=== PATIENT | male | born 1965 | race Caucasian/White ===

== ENCOUNTER 2017-09-03 08:58 | Emergency (ER) | payer OTHER ==
[~2017-09-03] VITALS: Ht 188 cm; Wt 154.5 kg
[2017-09-03 09:07] VITALS: TEMP 36.4; Ht 188 cm; Wt 154.5 kg
[2017-09-03] MEDS ORDERED: ACETAMINOPHEN 500 MG TAB PO STA (09:40)
[2017-09-03] MEDS ORDERED: DOXY50CA26 PO (09:53)
[2017-09-03] MEDS ORDERED: ASPCH81X PO (09:53)
[2017-09-03] MEDS ORDERED: BUPR-79 PO (09:53)
[2017-09-03] MEDS ORDERED: HYDR25TA5 PO (09:53)
[2017-09-03] MEDS ORDERED: METO25TA3 PO (09:53)
[2017-09-03] MEDS ORDERED: ATOR-26 PO (09:53)
--- NOTE | 2017-09-03 10:56 | DIAGNOSTIC IMAGING REPORT ---
R ANKLE MIN 3 VIEWS ROUTINE CLINICAL HISTORY: pain/swelling right ankle s/p injury trauma. Pain. COMPARISON: None. DISCUSSION: Considerable soft tissue swelling over lateral mild loss. Incomplete cortical fracture distal fibular shaft. Ankle mortise is aligned anatomically. Medial malleolus is unremarkable. IMPRESSION: 1. Considerable soft tissue swelling over the distal fibula with an incomplete cortical fracture of the distal fibular shaft. The above report was generated using voice recognition software. It may contain grammatical, syntax or spelling errors. Electronically signed by: Dario Phillips M.D. 09/03/2017 10:55 AM Dictated Date/Time: 09/03/2017 10:54 AM
--- NOTE | 2017-09-03 11:12 | EMERGENCY ROOM VISIT NOTE ---
ED Visit Note First contact with patient: 09:11 CHIEF COMPLAINT: Ankle pain HISTORY OF PRESENT ILLNESS: This 52-year-old white patient presents to the emergency department one day after sustaining an injury to the right ankle and foot with a twisting, inversion motion when he fell in a hole. The patient complains of pain along the outside of the ankle. The patient denies pain of the foot. The patient rates the pain as constant and 6/10. The patient is able to bear weight on the foot. Constant pain, worse with movement, weight bearing, and the dependent position. No knee pain, the patient is able to move their toes. No numbness or weakness of the foot, no laceration. The patient has not had a previous fracture to this ankle. The patient has taken Tylenol for the pain. He states he is not to be taking NSAIDs due to his cardiac history. The patient denies any other injury. REVIEW OF SYSTEMS: A 6 system review of systems was completed with positives and pertinent negatives listed in the HPI. ALLERGIES: None MEDICATIONS: Aspirin, atorvastatin, Wellbutrin, doxycycline, hydrochlorothiazide , Toprol PMH: Hyperlipidemia, hypertension SOCIAL HISTORY: The patient lives locally with family. He denies drug, alcohol use. The patient admits to occasional tobacco use. PHYSICAL EXAM: Vital Signs: Reviewed Nurse's notes, vital signs stable. GENERAL : This is a 52-year-old obese white male, no acute distress, but appears in pain , well-developed, well-nourished. MENTAL STATUS: Alert, oriented to person place and time, and cooperative. MUSCULOSKELETAL: The right ankle is swollen and tender over the lateral malleolus, but the skin is intact and there is no ligamentous instability. There is no fifth metatarsal tenderness. There is no tenderness over the rest of the foot. There is no calf or tibia/fibular tenderness. There is no visual deformity. The foot and toes are warm and well- perfused. Dorsalis pedis pulse 2+. Sensation to pain and light touch is intact. Capillary refill less than 2 seconds. RADIOLOGY: R ANKLE MIN 3 VIEWS ROUTINE CLINICAL HISTORY: pain/swelling right ankle s/p injury trauma. Pain. COMPARISON: None. DISCUSSION: Considerable soft tissue swelling over lateral mild loss. Incomplete cortical fracture distal fibular shaft. Ankle mortise is aligned anatomically. Medial malleolus is unremarkable. IMPRESSION: 1. Considerable soft tissue swelling over the distal fibula with an incomplete cortical fracture of the distal fibular shaft. The above report was generated using voice recognition software. It may contain grammatical, syntax or spelling errors. Electronically signed by: Dario Phillips M.D. 09/03/2017 10:55 AM Dictated Date/Time: 09/03/2017 10:54 AM EMERGENCY DEPARTMENT COURSE: I examined the patient. X-rays of the right ankle were reviewed by myself and read by radiology and reveal and incomplete cortical fracture of the distal fibular shaft. An Ortho-Glass stirrup splint was applied to the ankle under my direction and the position was satisfactory. Neurovascular status was rechecked and intact. The patient was instructed on the use of crutches, but was unable to safely ambulate with crutches. He was given a walker, and did much better with the walker. The patient was discharged home in good condition. DIFFERENTIAL DIAGNOSIS: Fracture, contusion, sprain, strain, avulsion fracture, and others DIAGNOSIS: Fracture of right distal fibula Current/Historical Medications Scheduled Aspirin (Aspirin Chewable), 81 MG PO DAILY Atorvastatin (Lipitor), 80 MG PO DAILY Bupropion (Wellbutrin Sr), 150 MG PO DAILY Doxycycline (Monohydrate) (Doxycycline), 50 MG PO DAILY Hydrochlorothiazide (Hydrochlorothiazide), 25 MG PO DAILY Metoprolol Succinate (Toprol Xl), 25 MG PO DAILY Allergies Coded Allergies: Ibuprofen (Unverified Allergy, Intermediate, UNABLE TO TAKE DUE TO HEART MEDICATION, PER , 09/03/17) Vital Signs Date Time Temp Pulse Resp B/P (MAP) Pulse Ox O2 Delivery O2 Flow Rate FiO2 09/03/17 11:55 70 18 171/109 94 Room Air 09/03/17 09:07 36.4 73 20 168/91 99 Room Air Medications Administered Medications (Trade) Dose Ordered Sig/Laura Route Start Time Stop Time Status Last Admin Dose Admin Acetaminophen (Tylenol Tab) 1,000 mg NOW STAT PO 09/03/17 09:40 09/03/17 10:09 DC 09/03/17 09:48 1,000 MG Departure Information Impression Primary Impression: Fracture of distal end of right fibula Dispostion Home / Self-Care Condition GOOD Referrals David Lorenz (PCP) [facility] Patient Instructions ED Fx Ankle Lateral Malleolus, My [facility] Additional Instructions ORTHOPEDIC INSTRUCTIONS: Acetaminophen(Tylenol) may be used for fever or pain. Use 1000mg every six hours as needed. Avoid using more than 3000mg in a 24 hour period. Ice compresses for 20 minutes at a time four times daily for 2-3 days. Use the crutches as instructed to avoid weight-bearing on the leg until directed otherwise by orthopedics. Rest and elevate your injury. Do not get the splint wet. If your splint feels excessively tight, you have worsening pain, develop numbness or tingling, or your digits appear blue, loosen the ginette wrap. Then reapply the ginette wrap gently without removing the splint. If your symptoms are not quickly relieved return to the ER for re- evaluation. Return to the ER immediately for any numbness, tingling, severe pain, extreme swelling in the extremity or as needed. Call [facility], [phone], today to arrange follow up for your injury within the next week. Follow-up with your primary care physician in 2 to 3 days for a recheck of your current condition if needed. Work Instructions Return To Work: 1 day Problem Qualifiers Primary Impression: Fracture of distal end of right fibula Encounter type: initial encounter Fracture type: closed Fracture morphology : other fracture Qualified Codes: S82.831A - Other fracture of upper and lower end of right fibula, initial encounter for closed fracture
[2017-09-03 11:55] VITALS: BP 171/109; PULSE 70; O2SAT 94
== END 2017-09-03 11:56 | disposition home or self-care (01) ==
LOC: C.EDB 09:01
DX: S82.831A Other fracture of upper and lower end of right fibula, initial encounter for closed fracture (principal); W17.2XXA Fall into hole, initial encounter; Y92.9 Unspecified place or not applicable; E78.5 Hyperlipidemia, unspecified; I10 Essential (primary) hypertension; Z79.82 Long term (current) use of aspirin; Z79.899 Other long term (current) drug therapy

== ENCOUNTER 2024-05-06 15:19 | Inpatient (IN) ==
--- OUTSIDE RECORDS SUMMARY | 2024-05-06 15:27 | External Medical Summary | Summary of Care ---
Author Name Unknown Organization [facility] Address [address] [place] [address] Phone [phone] Care Team Providers Care Welder Apprentice Arc Name Role Phone Luz Maria Gama Primary Care Provider Reason for Visit * Reason Comments Medication Management Encounter Details Date Type Department Care Team (Late st Contact Info) Description 05/03/2024 3:30 PM EDT Pharmacy Pharmacy Hematology Oncology [facility] [address] [place] [address] [facility] [place] [facility] Hem/Onc [address], [place] [id number] Glioblastoma (HCC)* Allergies No known active allergiesdocumented as of this encounter (statuses as of 05/03/2024) Medications Medication Sig Dispensed Refills Start Date End Date Status nitroglycerin (NITROSTAT) 0.[address] 1 Tab under the tongue every 5 minutes as needed for Pain, Chest. 90 Tab 12 08/17/2015 Active Lisinopril 20 MG Oral Tablet (Prinivil)Indications :HTN, goal below 140/90 Take 1 Tablet by mouth in the morning. 90 Tablet 3 11/04/2023 Active CPAP every night at bedtime. Active Naloxone HCl 0.4 MG/ML Injection Solution (Narcan)Indications:B rain tumor (HCC),Brain mass Inject 1mL into a large muscle for suspected opioid overdose. Seek medical help immediately. [email or web address] 1 mL 3 11/18/2023 Active Aspirin 81 MG Oral Tablet ChewableIndications:I schemic cardiomyopathy Take 1 Tablet by mouth in the morning. 30 Tablet 11 02/08/2024 Active Polyethylene Glycol 3350 17 GM Oral Packet (Miralax)Indications: Constipation due to pain medication Take 1 Packet by mouth in the morning. 30 Each 03/03/2024 Active levETIRAcetam 500 MG Oral Tablet (Keppra)Indications:B rain tumor (HCC),Brain mass Take 1 Tablet by mouth in the morning and 1 Tablet before bedtime. 60 Tablet 2 03/06/2024 Active Metoprolol Succinate ER 25 MG Oral Tablet Extended Release 24 Hour (toPROL XL)Indications:HTN, goal below 140/90,Ischemic cardiomyopathy,Beltrán ry artery disease involving [place] coronary artery of [place] heart without angina pectoris,Dyslipidemia , goal LDL below 100,Essential hypertension with goal blood pressure less than 140/90 Take 1 Tablet by mouth in the morning. 90 Tablet 1 03/04/2024 Active Ondansetron HCl 8 MG Oral Tablet (Zofran)Indications:G lioblastoma (HCC) Take 1 tablet by mouth 30 minutes prior to lomustine and every 8 hours as needed for nausea. Do not exceed 3 tablets per 24 hours. 60 Tablet 1 03/03/2024 Active Omeprazole 20 MG Oral Capsule Delayed Release (PriLOSEC)Indications :Glioblastoma (HCC) Take 2 Capsules by mouth in the morning. 60 Capsule 5 03/16/2024 Active Morphine Sulfate 30 MG Oral Tablet (Msir)Indications:Can cer related pain Take 1 Tablet by mouth every 4 hours as needed for Pain, Severe. Continued script 84 Tablet 04/05/2024 Active Doxycycline Monohydrate 50 MG Oral CapsuleIndications:Ro sacea Take 1 capsule by mouth once daily 90 Capsule 1 04/17/2024 Active buPROPion HCl ER (SR) 150 MG Oral Tablet Extended Release 12 Hour (Wellbutrin SR)Indications:Adjust ment disorder with depressed mood Take 1 tablet by mouth twice per day 180 Tablet 1 04/17/2024 Active dexAMETHasone 2 MG Oral Tablet (Decadron)Indications :Glioblastoma (HCC) Take 1 Tablet by mouth 2 times a day with morning and evening meals. 60 Tablet 1 04/17/2024 Active busPIRone HCl 10 MG Oral Tablet (Buspar)Indications:A nxiety state Take 1 Tablet by mouth in the morning and 1 Tablet at noon and 1 Tablet before bedtime. 90 Tablet 2 04/19/2024 Active Lomustine 40 MG Oral Capsule (Ceenu)Indications:Gl ioblastoma (HCC) Take 5 Capsules by mouth every 6 weeks. Take on an empty stomach at bedtime 5 Capsule 04/24/2024 Active Morphine Sulfate ER 60 MG Oral Tablet Extended Release (Ms Contin)Indications:Ca ncer related pain Take 1 Tablet by mouth in the morning and 1 Tablet before bedtime. Do not start before May 02, 2024. 56 Tablet 05/02/2024 Active Sennosides 8.6 MG Oral Tablet (Senokot)Indications: Constipation due to pain medication Take 2 Tablets by mouth at bedtime. 60 Tablet 05/01/2024 Active Nitrofurantoin Monohyd Macro 100 MG Oral Capsule (Macrobid)Indications :Burning with urination Take 1 Capsule by mouth in the morning and 1 Capsule before bedtime. 14 Capsule 05/03/2024 Active documented as of this encounter (statuses as of 05/03/2024) Active Problems Problem Noted Date Diagnosed Date S/P craniotomy 11/18/2023 Palliative care encounter 11/12/2023 Goals of care, counseling/discussion 11/12/2023 Cancer related pain 11/12/2023 Nonintractable headache 11/12/2023 Postoperative pain 11/12/2023 Decreased appetite 11/12/2023 Therapeutic opioid-induced constipation (OIC) Word finding difficulty 11/12/2023 Agitation 11/12/2023 Glioblastoma 11/05/2023 Meniere disease, bilateral 05/19/2021 ALEKSANDR (obstructive sleep apnea) 02/25/2021 Class 3 severe obesity due t o excess calories with serious comorbidity and body mass index (BMI) of 40.0 to 44.9 in adult 11/04/2020 Erythrocytosis 06/30/2018 Ischemic cardiomyopathy 03/11/2017 Dyslipidemia, goal LDL below 100 04/23/2016 Adjustment disorder with depressed mood 04/23/20 16 HTN, goal below 140/90 03/02/2016 Overview: Per HTN Protocol Coronary artery disease without angina pectoris 08/30/2015 Overview: One vessel PCI - BMS to CX OM3 on 08/16/2015 Former smoker 08/17/2015 Rosacea 01/10/2014 documented as of this encounter (statuses as of 05/03/2024) Resolved Problems Problem Noted Date Diagnosed Date Resolved Date Brain mass 11/08/2023 11/19/2023 Bradycardia, sinus 01/21/2023 4 Body mass index (BMI) of 45. 0 to 49.9 in adult 07/29/2020 11/04/2020 Overview: Per Obesity protocol - Body mass index (BMI) of 40. 0 to 44.9 in adult 06/21/2017 08/01/2020 Overview: Per Obesity protocol #1 Venous insufficiency 04/23/2016 024 Testicular hypogonadism 09/24/201504/22 HTN (hypertension) 08/17/2015 6 Overview: Per HTN Protocol NSTEMI (non-ST elevated myoc ardial infarction) 08/16/2015 08/17/2015 documented as of this encounter (statuses as of 05/03/2024) Immunizations Name Administration Dates Next Due COVID-19 mRNA, LNP-s, No Pre serve, 2-Dose Series (Pfizer) 12/02/2020,10/28/2020 Pneumococcal Polysaccharide PPV23 (Pneumovax) Seasonal Influenza, PF, 6 M & above, IM , (FluLaval or Fluzone) 07/03/2020,06/30/2018 TDAP (age 10 and older)(Boostrix) 12/24/2017 Zoster Vaccine Recombinant (Shingrix) 05/19/2021 ,07/03/2020 11/03/2020 documented as of this encounter Social History Tobacco Use Types Packs/Day Years Used Date Smoking Tobacco: Former Cigarettes 1.5 15 1 10/16/1999 - 08/16/2015 Passive Smoke Exposure: Never Smokeless Tobacco: Former Snuff Comments:smokes cigar occas Alcohol Use Standard Drinks/Week Comments Yes 0 (1 standard drink = 0.6 oz pur e alcohol) weekly PHQ-2 Answer Date Recorded PHQ Adult Total Score 2 11/19/2023 Hunger Vital Sign Answer Date Recorded Within the past 12 months, y ou worried that your food would run out before you got the money to buy more. Sometimes true Within the past 12 months, t he food you bought just didn't last and you didn't have money to get more. Sometimes true Childcare Answer Date Recorded Do you feel overwhelmed with taking care of a child, family member or friend? No 02/01/2024 Does your family need help f inding childcare? (Household - for ages 0-17 years) Not on file 02/01/2024 Clothing Answer Date Recorded Have you been unable to get clothing when it was really needed? No 02/01/2024 Is your family able to get c lothes or diapers when needed? (Household - for ages 0-17 years) Not on file 02/01/2024 Personal Safety Answer Date Recorded Do you feel unsafe or have concerns for your saf ety? No 02/01/2024 Do you have concerns for you r family's safety? (Household - for ages 0-17 years) Not on file 02/01/2024 Utilities Answer Date Recorded Do you have trouble paying y our heating, water, or electric bill? Yes 02/01/2024 Is your family able to pay t he heat, water, or electric bill? (Household - for ages 0-17 years) Not on file 02/01/2024 Does your family have access to good internet? (Household - for ages 0-17 years) Not on file 02/01/2024 Employment Status Answer Date Recorded Are you unemployed or without regular income? Ye s 02/01/2024 Does the household have a re gular source of income? (Household - for ages 0-17 years) Not on file 02/01/2024 Social Connections Answer Date Recorded How often do you feel lonely or isolated from those around you? Sometimes 02/01/2024 Financial Resource Strain Answer Date R ecorded Do you have any trouble payi ng for your medications, or do you think you might in the future? No 02/01/2024 Does your family have troubl e paying for medicine? (Household - for ages 0-17 years) Not on file 02/01/2024 Transportation Needs Answer Date Record ed READ ONLY Do you have troubl e getting a ride to medical visits or work? Sometimes True 02/01/2024 Does your family have a hard time getting a ride to doctors visits? (Household - for ages 0-17 years) Not on file 02/01/2024 Has lack of transportation k ept you from medical appointments, meetings, work, or from getting things needed for daily living? Check all that apply. (Adult - for ages 18 years and over) Not on file 02/01/2024 Do you (or your family) have trouble finding or paying for a ride (transportation)? (Household - for ages 0-17 years) Not on file 02/01/2024 Housing Stability Answer Date Recorded Do you currently live in a s helter or have no steady place to sleep at night? No 02/01/2024 READ ONLY Do you think you a re at risk of becoming homeless? No 02/01/2024 Does your family worry about paying for your home or becoming homeless? (Household - for ages 0-17 years) Not on file 0 02/01/2024 Are you homeless or worried that you might be in the future? (Adult - for ages 18 years and over) Not on file Are you (or your family) sean eless or worried that you might be in the future? (Household - for ages 0-17 years) Not on file Food Insecurity Answer Date Recorded Do you need food for this week? Yes 02/01/2024 Are you able to get enough f ood for your family? (Household - for ages 0-17 years) Not on file 02/01/2024 Does your family need food t his week? (Household - for ages 0-17 years) Not on file 02/01/2024 Do you always have enough fo od for your family? (Household - for ages 0-17 years) Not on file 02/01/2024 Sex and Gender Information Value Date Recorded Sex Assigned at Male 01/10/2019 11:44 AM EDT Gender Identity Male 01/10/2019 11:44 AM EDT Sexual Orientation Straight 01/10/2019 11 :44 AM EDT Job Start Date Occupation Industry Not on file Not on file Not on file documented as of this encounter Functional Status Functional Status Response Date of Assess ment Are you deaf or do you have serious difficulty h earing? Yes 11/05/2023 Are you blind or do you have serious difficulty seeing, even when wearing glasses? Yes 11/05/2023 Do you have serious difficul ty walking or climbing stairs? (5 years old or older) No 11/05/2023 Do you have difficulty dress ing or bathing? (5 years old or older) No 11/05/2023 Because of a physical, menta l, or emotional condition, do you have difficulty doing errands alone such as visiting a doctor s office or shopping? (15 years old or older) No 11/05/19 Cognitive Status Response Date of Assessm ent Because of a physical, menta l, or emotional condition, do you have serious difficulty concentrating, remembering, or making decisions? (5 years old or older) No 11/05/2023 documented as of this encounter Progress Notes * Martha Rivera, [facility] - 05/03/2024 1:58 PM EDT MEDICATION THERAPY MANAGEMENT LOMUSTINE TREATMENT PROGRESS NOTE Remy Lujan [id number] Patient Phone Numbers Redeem [phone] Significant Other: Candi Communication: Spoke to: Other: Candi Treatment: Medication: Lomustine (CCNU, Gleostine) Indication/Staging/Diagnosis Code: Glioblastoma, WHO Grade IV, C71.9 Dose Basis: Per BELOB Trial: Cycle 1: 90 mg/m2 * 2.68 m2 (02/29/24) = 241.2 mg (max dose 160 mg) Cycles 2+: 110 mg/m2 (if there were no hematologic toxic effects of a grade of more than 1 during the first cycle) * 2.68 m2 (02/29/24) = 294.8 mg (max dose 200 mg) Dose: Cycle 1: 160 mg PO once every 6 weeks Cycles 2+ (as tolerated): 200 mg PO once every 6 weeks Administration: empty stomach at bedtime Start Date: 03/24/24 Primary Occupational Health Nurse Manager/Oncologist: Dr. Shay Song Additional Therapy: Bevacizumab Supportive Care Meds: Ondansetron Miralax Senna Prophylactic Meds: Consider PJP ppx for ALC < 0.5 - patient was on Bactrim previously Relevant Chronic Medications: Category Medications Pertinent Notes Antihypertensives Lisinopril Metoprolol Anticoagulation Aspirin Cycle Dates C1 03/24/24 C2 TBD (Delayed due to possible UTI) Treatment History: Resection 11/10/23 TMZ+RT completed 01/24/24 Treatment Dose Adjustment/Hold History: N/A Interval History: Significant other aware that it is recommended for labs to be completed weekly. However, due to travel concerns, they are planning to have have labs complete q2w with bevacizumab treatments 05/03/24 - Noted UTI symptoms. UA from today does not show infection - culture is in process. Prescribed Macrobid x 7 days for possible UTI Significant other reports they they would feel more comfortable delaying lomustine dose that is dueon 05/05 as patient is in a lot of pain right now with UTI symptoms and they do not want to experience lomustine side effects that would make him feel worse Changes to medication list since last visit? Yes, Macrobid x 7 days (no DDI with lomustine) Drug interaction assessment: Treatment plan and current medication list evaluated for drug-drug interactions. No clinically significant drug interaction identified Assessment and Plan: Labs from today are within parameters to proceed with Cycle 2 of lomustine PJP ppx not indicated for ALC > 0.5 Significant other aware of dose increase to 200 mg with Cycle 2 of lomustine Discussed that patient is due for Cycle 2 of lomustine on 05/05 and that patient can take dose any time after that day if he is feeling better (if UTI symptoms improve) Patient completes labs every 2 weeks Will follow-up in 1 week to review if lomustine dose was taken Assessment of compliance: compliant Assessment of adverse effects attributed to drug therapy: N/A Dose adjustment needed based on lab or adverse drug reaction? Yes, dose increase as above Follow up: 1 week Martha Rivera, AubrieD, BCOP Ambulatory Clinical Pharmacist | Oral Chemotherapy Clinic [facility] 05/03/2024, 2:00 PM Monitoring Parameters: Estimated CrCl Serum creatinine: 1 mg/dL 05/03/24 1126 Estimated creatinine clearance: 121.9 mL/min Hepatitis panel Complete 02/28/24 Not immune to hepatitis B virus Suggested lab monitoring CBCd and CMP weekly Treatment Parameters Please refer to PI Pertinent labs: Latest Reference Range & Units 04/05/24 10:52 04/19/24 11:38 05/03/24 11:26 WBC 4.00 - 10.80 K/uL 8.58 11.88 (H) 10.97 (H) RBC 4.50 - 5.25 M/uL 4.36 4.62 4.78 HGB 14.0 - 16.8 g/dL 13.5 (L) 14.7 15.5 HCT 40.0 - 48.4 % 41.2 44.5 45.5 MCV 82.0 - 99.5 fL 94.5 96.3 95.2 MCH 27.0 - 34.0 pg 31.0 31.8 32.4 MCHC 32.0 - 36.0 g/dL 32.8 33.0 34.1 RDW 11.5 - 15.5 % 14.7 14.7 14.6 PLT 140 - 400 K/uL 239 149 192 MPV 6.6 - 11.1 fL 9.1 8.8 8.7 CBC WITH WBC DIFFERENTIAL Rpt ! Rpt ! Rpt ! Absolute Neutrophils 1.80 - 7.70 K/uL 6.84 8.91 (H) 9.11 (H) Absolute Lymphocytes 1.00 - 4.80 K/uL 1.02 1.78 0.88 (L) (H): Data is abnormally high (L): Data is abnormally low !: Data is abnormal Rpt: View report in Results Review for more information Latest Reference Range & Units 04/05/24 10:52 04/19/24 11:38 05/03/24 11:26 Albumin 3.8 - 5.0 g/dL 3.9 3.8 3.8 AST 10 - 50 U/L 18 18 15 ALT 10 - 50 U/L 43 46 35 Alkaline Phosphatase 35 - 130 U/L 76 69 73 Bilirubin, Total <=1.2 mg/dL 0.3 0.4 0.5 Time Spent on Encounter: 11 - 15 minutes Encounter Group: Neuro-Oncology Encounter Interventions Item Category: Oral Chemotherapy Lomustine Problem/Rationale: Safety: Needs additional monitoring - Medication Requires monitoring Pharmacist Intervention(s): Care coordination, Drug Interaction Screen, Lab monitoring, and Medication held Magnitude of Intervention: Modification of medication for asymtomatic patients (Level 2) documented in this encounter Plan of Treatment Upcoming Encounters Date Type Department Care Team (Late st Contact Info) Description 05/10/2024 3:45 PM EDT Pharmacy Pharmacy Hematology Oncology [facility] [place] [address] [place] [address] [facility] [place] [facility] Hem/Onc [address] [place] [address] 05/17/2024 11:00 AM EDT Laboratory Laboratory [place] [address] [address] [place] [phone] Cristobal Jaffe [place] [address] [address] [place] [address] 05/17/2024 11:30 AM EDT Office Visit Hematology/Oncology [address] [place] [phone] Anuja Cortez CRNP [address] [place] [address] 05/17/2024 12:00 PM EDT Hem/Onc Treatment Hematology[facility] [place] [address] [facility] [phone] Alannah, Chair [address] Hem Onc [address] [place] [address] 05/17/2024 12:30 PM EDT Office Visit Palliative Medicine [facility] [place] [address] [facility] [phone] Keisha Tompkins MD [address] [facility] [place] [address] 05/23/2024 4:00 PM EDT Imaging Radiology [address], [place] [address] [facility] [place] [address] 05/31/2024 10:40 AM EDT Laboratory Laboratory [facility] [place] [address] [address] [place] [phone] Cristobal Jaffe [facility] [address] [facility] [place] [address] 05/31/2024 11:15 AM EDT Office Visit Hematology/Oncology [facility] [place] [address] [place] [phone] Shay Song MD [address] [facility] [place] [address] 05/31/2024 11:45 AM EDT Hem/Onc Treatment Hematology/Oncology [facility] [address] [facility] [phone] 06/13/2024 11:00 AM EDT Office Visit Audiology [facility] [address] [place] [address] Gloria Oropeza Au.D. [address] [facility] [place] [address] 06/19/2024 11:15 AM EDT Telemedicine Neurosurgery, [place] [address] [place] [address] Clinic, Brain Tumor Multidisciplinary [address] [place] [address] 06/28/2024 9:50 AM EDT Office Visit [facility] [address] [place] [phone] Luz Maria Gama DO [address] [place] [address] Scheduled Procedures Name Priority Associated Diagnoses Date/Ti me COLONOSCOPY FLEXIBLE PROXIMA L DIAGNOSTIC Recall Encounter for screening colonoscopy Health Maintenance Due Date Last Done Comments COVID-19 Vaccine (2022-2 4 season) 2023 06/08/2021, 12/02/2020, 10/28/2020 Influenza Vaccine (FLU shot) (#1) 2024 020, 06/30/2018 Depression Screening 11/18/2024 11/19/2023 Colonoscopy Discontinued 09/01/2016, 09/01/2016 Colorectal Cancer Screening Discontinued Albumin/Creatinine Ratio Discontinued 01/10/2019 Zoster Vaccines Completed 05/19/2021, 07/03/2020 Cologuard Discontinued Fecal Occult Blood Test Discontinued Sigmoidoscopy Discontinued documented as of this encounter Medical Devices Not on filedocumented as of this encounter Visit Diagnoses Diagnosis Glioblastoma (HCC)- Primary Malignant neoplasm of brain, unspecified site documented in this encounter Advance Directives Documents on File Type Date Recorded Patient Travel Consultant Expl anation Advance Directives and Living Will 02/25/2024 Candi Mulligan signed on 11/06/2023 ADVANCE DIRECTIVE / LIVING WILL COMBINED LIVING WILL & HEALTH CARE POWER OF SPLICER APPRENTICE POLST 12/03/2023 9:15 AM sign date 12/01/2023 Advance Directives and Living Will 11/05/2023 INVALID- missing pag es * Full Code (Latest Code Status on File) Date Activated Date Inactivated Comments 11/10/2023 3:44 PM 11/18/2023 6:36 PM This order r eflects the patients wishes and were consensually agreed upon. Question Answer Comments Discussion of Advance Direct linda occurred with: Not Discussed due to patient's condition Does the patient have a Living Will? No Does the patient have Health Care Power of Shock Absorber Installer? No * Full Code Date Activated Date Inactivated Comments 11/06/2023 12:03 AM 11/10/2023 3:44 PM This order reflects the patients wishes and were consensually agreed upon. Question Answer Comments Discussion of Advance Directives occurred with: Patient * Full Code Date Activated Date Inactivated Comments 08/16/2015 9:24 AM 08/17/2015 3:26 PM This order reflects the patients wishes and were consensually agreed upon. Question Answer Comments Discussion of Advance Directives occurred with: Patient Healthcare Agents on File Name Relationship Healthcare Agent Relationship Communication Candi Mulligan Significant Other Health Care Agent (per Health Care Power of Shock Absorber Installer document) [employer] Care Teams Welder Apprentice Arc Relationship Specialty Start Date End Date Luz Maria Gama DO [address] [place] [address] PCP - General Family Medicine 01/04/23 documented as of this encounter"
--- OUTSIDE RECORDS SUMMARY | 2024-05-06 15:27 | External Medical Summary | Summary of Care ---
Author Name Unknown Organization [facility] Address [address] [facility] [address] Phone [phone] Care Team Providers Care Director Of Diagnostic Imaging Name Role Phone Luz Maria Gama Primary Care Provider Reason for Visit * Reason Onset Date Comments Test Results 05/04/2024 Encounter Details Date Type Department Care Team (Late st Contact Info) Description 05/04/2024 Telephone Hematology/Oncology [facility] [place] 200 [facility] [place] [phone] Shay Song MD 200 [facility] [place] [address] Test Results Allergies No known active allergiesdocumented as of this encounter (statuses as of 05/04/2024) Medications Medication Sig Dispensed Refills Start Date [...] opioid overdose. Seek medical help immediately. 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 * Telephone Encounter - Gege Gracia LPN - 05/04/2024 1:07 PM EDT ----- Message from Shay Song MD sent at 05/04/2024 12:42 PM EDT ----- -urine culture --> negative. documented in this encounter Plan of Treatment Upcoming Encounters Date Type Department Care Team (Late st Contact Info) Description 05/10/2024 3:45 PM EDT Pharmacy Pharmacy Hematology Oncology [facility] [address] [place] [address] [facility] Hem/Onc [address] [place] [address] 05/17/2024 11:00 AM EDT Laboratory Laboratory [address] [place], [place] [phone] [place], Lab [facility] [address] [place], [place] [address] 05/17/2024 11:30 AM EDT Office Visit Hematology/Oncology [facility] [address] [place], [place] [phone] Anuja Cortez CRNP [address] [place], [place] [phone] 05/17/2024 12:00 PM EDT Hem/Onc Treatment Hematology/Oncology Treatment, [address], [place] [phone] [place], Chair [address] Hem On[address] [place], [place] [address] 05/17/2024 12:30 PM EDT Office Visit Palliative Medicine [address], [place] [phone] Keisha Tompkins MD [address] [place], [place] [phone] 05/23/2024 4:00 PM EDT Imaging Radiology [address], [place] 132 [facility] [place] [phone] 05/31/2024 10:40 AM EDT Laboratory Laboratory [facility] [address] [place], [place] [phone] [place], Lab [facility] [address] [place] [address] 05/31/2024 11:15 AM EDT Office Visit Hematology/Oncology [facility] [address] [place], [place] [phone] Shay Song MD [address] [place], [place] [address] 05/31/2024 11:45 AM EDT Hem/Onc Treatment Hematology/Oncology Treatment, [place] [address] [place] [address] 06/13/2024 11:00 AM EDT Office Visit Audiology [facility] [address] [place] [address] Gloria Oropeza Au.D. [address] [place] [address] 06/19/2024 11:15 AM EDT Telemedicine Neurosurgery, [place] [address] [place] [address] Clinic, Brain Tumor Multidisciplinary [address] [place] [address] 06/28/2024 9:50 AM EDT Office Visit [facility] [address] [place] [address] Luz Maria Gama, DO [address] [place] [address] Scheduled Procedures Name Priority Associated Diagnoses Date/Ti [...] Not on filedocumented as of this encounter Advance Directives Documents on File Type Date Recorded Patient Database Development Project Manager Expl anation Advance Directives and Living Will 02/25/2024 Candi Mulligan signed on 11/06/2023 ADVANCE DIRECTIVE / LIVING WILL COMBINED LIVING WILL & HEALTH CARE POWER OF FIRE DISPATCHER POLST 12/03/2023 9:15 AM sign date 12/01/2023 [...] the patient have Health Care Power of Agriculture Teacher? No * Full Code Date Activated Date [...] Care Agent (per Health Care Power of Agriculture Teacher document) [email or web address] Care Teams Director Of Diagnostic Imaging Relationship Specialty Start Date End Date Luz Maria Gama DO [address] [place] [address] PCP - General Family Medicine 01/04/23 documented as of this encounter
--- OUTSIDE RECORDS SUMMARY | 2024-05-06 15:27 | External Medical Summary | Summary of Care ---
Author Name Unknown Organization [facility] Address [address] [place] [address] Phone [phone] Care Team Providers Care Cloth Checker Name Role Phone Luz Maria Gama Primary Care Provider [phone] Reason for Visit * Reason Comments Chemotherapy C4/D1 - Zirabev * Episode Based Medications (Routine) - Authorized Specialty Diagnoses / Procedures Referred By Jerel t Referred To Contact Diagnoses Glioblastoma (HCC) Procedures WI INJ., ZIRABEV, 10 MG Palak Cast MD [address] [place] [address] Anc Hem/Onc [facility] [place] [address] [place] [phone] Referral ID Status Reason Start Date Expiration Date V isits Requested Visits Authorized [id number] Authorized 02/28/2024 09/19/[phone] Encounter Details Date Type Department Care Team (Latest Contact Info) Description 05/03/2024 12:00 PM EDT Hem/Onc Treatment Hematology/Oncolog y Treatment, [address] [phone] Alannah, Chair [address] [place] [address] Glioblastoma (HCC)*; Encounter for antineoplastic chemotherapy Allergies No known active allergiesdocumented as of [...] suspected opioid overdose. Seek medical help immediately. 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 60 Tablet 05/01/2024 Active documented as of this encounter (statuses [...] mRNA, LNP-s, No Pre serve, 2-Dose Series (LetsCram) 12/02/2020,10/28/2020 Pneumococcal Polysaccharide PPV23 (Pneumovax) Seasonal Influenza, PF, 6 M & above, IM , (FluLaval or Fluzone) 07/03/2020,06/30/2018 TDAP (age 10 and older)(Boostrix) 12/24/2017 Zoster Vaccine Recombinant (Shingrix) 05/19/2021 ,07/03/2020 11/03/2020 documented as of this encounter Social History Tobacco Use Types Packs/Day Years Used Date Smoking Tobacco: Former Cigarettes 1.5 15 1 10/16/1999 - 08/16/2015 Passive Smoke Exposure: Never Smokeless Tobacco: Former Snuff Tobacco Cessation:Counseling Given: Not Answered Comments:smokes cigar occas Alcohol Use Standard Drinks/Week [...] on file documented as of this encounter Last Filed Vital Signs Vital Sign Reading Time Taken Comments Blood Pressure 161/98 05/03/2024 12:24 PM EDT Pulse 77 05/03/2024 12:24 PM EDT Temperature 36.8 C (98.3 F) 05/03/2024 1 2:24 PM EDT Respiratory Rate 16 05/03/2024 12:2 4 PM EDT Oxygen Saturation 96% 05/03/2024 12: 24 PM EDT Inhaled Oxygen Concentration - - Weight 144.2 kg (317 lb 12.8 oz) 2023 12:24 PM EDT Height - - Body Mass Index 40.8 11/05/2023 10:12 PM EST documented in this encounter Functional Status Functional Status Response [...] No 11/05/2023 documented as of this encounter Nursing Notes * Enedina Berrios RN - 05/03/2024 3:49 PM EDT Goals: pt will remain free from injury Possible barriers to meeting goals: ambulating with IV pole, glioblastoma diagnosis, confusion Stability of the patient: Moderately stable - low risk of patient condition declining or worsening Summary regarding today's goals: Met: pt remained free of harm today Patient tolerated treatment well without any acute issues or problems. Patient left facility in stable condition and denied any further needs. * Enedina Berrios RN - 05/03/2024 3:28 PM EDT Chair 12. IV inserted. Pt accompanied by Candi today, significant other. Candi expressed that patient has been c/o pain in his bladder area/lower abdomen. She says patienthas been c/o this pain since last week and thought it was getting better and now feels like it is getting worse again. Patient says the pain is at about 8/10 most of the time and he has been having alot of burning with urinating lately. He says he is going to go the the ER if he does not get an abx because the pain is so bad. RN educated patient and Candi that the urine culture is pending and abx that may be ordered may not cover exactly what is needed. Candi says she understand s but she isvisibly upset and says the patient will be requesting to go to the ER if he does not get any abx ord ered because of the pain he is in and suspecting UTI. Dr. Song states we could do fluids today butsince BP is elevated, decided against fluids. Antibiotic ordered for pt to start taking. Candi communicated understanding. Will monitor for urine culture results when they come back. Patient and Candi were provided with gas card to help with length of drive and commuting. BP is elevated at 161/98 but okay to tx per Dr. Song. RN asked if patient has been taking his BP meds -- Candi informed RN that he is taking his meds "as they are ordered, but cannot remember all the meds he is taking off the top of her head." Chemotherapy/Immunotherapy agents: ZIRABEV Consent for chemotherapy drug treatment complete, dated, and signed? yes, date - 02/28/2024 Treatment lab parameters met? Yes Has treatment weight changed > than 10%? No Treatment preauthorized? Yes VITALS Filed Vitals: 05/03/24 1224 BP: 161/98 Pulse: 77 Resp: 16 Temp: 36.8 C (98.3 F) TempSrc: Tympanic SpO2: 96% Weight: (!) 144.2 kg (317 lb 12.8 oz) Urine protein: NEGATIVE Patient education completed for treatment? Yes Blood transfusion consent signed and complete? NA Return appointment scheduled? Yes Patient had provider visit today? No - If no provider visit must complete Pretreatment Assessment Functional Status: Functional status at today's visit: Restricted in physically strenuous activity but ambulatory and able to carry out work on a light orsedentary nature, e.g. light house work, office work The drug name, dose, infusion volume, rate and route of administration, expiration date and time, appearance and physical integrity of the drug and rate set on the pump and sequencing of drug administration (as applicable) were verified by me and second sign-in RN. Patient was assessed for symptoms or adverse side effects during treatment. Patient Education: Patient instructed on use of heat and massage functions where applicable. Patient shown how to operate the heat function of the chair and to alert nursing staff if the chair feels too warm. Patient instructed on the risk of potential pedraza while using the heat function. PRE-TREATMENT ASSESSMENT: NEURO: confusion: Candi states she feels pt is more confused as of lately and says he is usually dressed when she comes to pick him up but today he could not get dressed and was not dressed when she got tohis house. CV/RESP: denies symptoms GI/: abdominal pain or tenderness: bladder region, see above regarding assessment and plan for this OTHER: denies any additional symptoms PAIN: 7-8 pain location : bladder region, see above Safety and Risk for Injury Patient will remain free from injury. Ensure appropriate safety devices are available. Provide and maintain safe environment. documented in this encounter Plan of Treatment Upcoming Encounters Date Type Department Care Team (Late st Contact Info) Description 05/10/2024 3:45 PM EDT Pharmacy Pharmacy Hematology Oncology [facility] [address] [place] [address] [facility] Hem/Onc [address] [place] [address] 05/17/2024 11:00 AM EDT Laboratory Laboratory [facility] [place] [address] [place] [phone] [place], Lab [facility] [address] [place] [address] 05/17/2024 11:30 AM EDT Office Visit Hematology/Oncology [facility] [place] [address] [place] [phone] Anuja Cortez CRNP [address] [place], [place] [phone] 05/17/2024 12:00 PM EDT Hem/Onc Treatment Hematology/Oncology Treatment, [place] 200 [facility], [place] [phone] [place], Chair 11 Hem Onc [address] [place] [address] 05/17/2024 12:30 PM EDT Office Visit Palliative Medicine [facility] [place] 200 [facility] [place] [phone] Keisha Tompkins MD [address] [place] [address] 05/23/2024 4:00 PM EDT Imaging Radiology [facility] [place] 132 [facility] [place] [address] 05/31/2024 10:40 AM EDT Laboratory Laboratory [facility] [place] [address] [place] [phone] [place], Lab [address] [place] [address] 05/31/2024 11:15 AM EDT Office Visit Hematology/Oncology [facility] 200 [facility] [place] [phone] Shay Song MD [facility] [address] 05/31/2024 11:45 AM EDT Hem/Onc Treatment Hematology/Oncology [facility] [place] 200 [facility] [phone] 06/13/2024 11:00 AM EDT Office Visit Audiology [facility] [address] [place] [address] Gloria Oropeza Au.D. [address] [place] [address] 06/19/2024 11:15 AM EDT [facility] [address] [place] [address] Clinic, Brain Tumor Multidisciplinary [address] [place] [address] 06/28/2024 9:50 AM EDT Office Visit [facility] [address] [place] [phone] Luz Maria Gama, DO [address] [place] [address] Scheduled Procedures Name Priority Associated Diagnoses Date/Ti me COLONOSCOPY FLEXIBLE PROXIMA L DIAGNOSTIC Recall Encounter for screening colonoscopy Health Maintenance Due Date Last Done Comments COVID-19 Vaccine (4 2022-2 4 season) 2023 06/08/2021, 12/02/2020, 10/28/2020 Influenza [...] Primary Malignant neoplasm of brain, unspecified site Encounter for antineoplastic chemotherapy documented in this encounter Administered Medications Active Administered Medications - up to 3 most recent administrations Medication Order MAR Action Action Date Dose Rate Site diphenhydrAMINE (Benadryl) inj 50 mg 50 mg, IV Push, ONCE PRN Other, Hypersensitivity Reaction, Starting on Wed05/03/24 at 1306, Until Laura 05/04/24 at 1305, For 24 hours EPINEPHrine 1 MG/ML inj 0.3 mg 0.3 mg, Intramuscular, ONCE PRN Other, Hypersensitivity Reaction or Anaphylaxis, Starting on Wed05/03/24 at 1306, Until Laura 05/04/24 at 1305, For 24 hours hEParin 100 UNIT/ML Lock Flush inj 500 Units 500 Units (5 mL), IV Lock, PRN Other, IV Flush, Starting on Wed05/03/24 at 1306, Until Laura 05/04/24 at 1305, For 24 hours, Do not flush if lock, PICC, or central line not in place; IV infusing or unable to flush. Hydrocortisone Sod Suc (PF) (Solu-Cortef) inj 100 mg 100 mg, IV Push, ONCE PRN Other, Hypersensitivity Reaction, Starting on Wed05/03/24 at 1306, Until Laura 05/04/24 at 1305, For 24 hours NSS infusion Intravenous, at 50 mL/hr, PRN, Starting on Wed05/03/24 at 1415, Until Discontinued, Maintenance line Start Infusion 05/03/2024 1:06 PM EDT 50 mL/hr oxygen GAS Inhalation, OXYGEN, First dose on Wed05/03/24 at 1600, Until Discontinued, Device/Managed by: Low Flow Device, Goal SPO2 (%): 91-95, Starting Device: Nasal Cannula, Initial Flow Rate (LPM): 2, Lowest Support: Nasal Cannula: Flow 0-6 LPM. Titrate up/down by 1 LPM., Higher Support: Non-Rebreather (NRB) Mask: Minimum of 10 LPM. Titrate to maintain bag inflation., Titration Interval: Q2 minutes and as needed., Notify Provider: For sudden DECREASE in resting SPO2 to less than 85% and when escalating delivery device., Wean patient off Oxygen when the oxygen saturation is greater than or equal to 93% sodium chloride 0.9 % flush central line 10 mL 10 mL, IV Push, PRN Other, IV Flush, Starting on Wed05/03/24 at 1306, Until Laura 05/04/24 at 1305, For 24 hours, Do not flush if lock, PICC, or central line not in place; IV infusing or unable to flush. Inactive Administered Medications - up to 3 most recent administrations Medication Order MAR Action Action Date Dose Rate Site bevaCIZumab-bvzr (Zirabev) 1,400 mg in NSS 100 mL infusion 1,400 mg (rounded from 1,434 mg = 10 mg/kg 143.4 kg Treatment plan Recorded weight), IV Piggyback, ONCE, 1 dose, On Wed05/03/24 at 1445, Administer over 30 Minutes Start Infusion 05/03/2024 1:48 PM EDT 1,400 mg 210 mL/hr documented in this encounter Advance Directives Documents on File Type Date Recorded Patient Project Safety Manager Expl anation Advance Directives and Living Will 02/25/2024 Candi Mulligan signed on 11/06/2023 ADVANCE DIRECTIVE / LIVING WILL COMBINED LIVING WILL & HEALTH CARE POWER OF SURVEILLANCE SENSOR OPERATOR POLST 12/03/2023 9:15 AM sign date 12/01/2023 [...] the patient have Health Care Power of Merchant Mariner? No * Full Code Date Activated Date [...] Name Relationship Healthcare Agent Relationship Communication Candi Isaak Significant Other Health Care Agent (per Health Care Power of Merchant Mariner document) [email or web address] Care Teams Cloth Checker Relationship Specialty Start Date End Date Luz Maria Gama DO [address] [place] [address] PCP - General Family Medicine 01/04/23 documented as of this encounter
--- OUTSIDE RECORDS SUMMARY | 2024-05-06 15:27 | External Medical Summary | Summary of Care ---
Author Name Unknown Organization [facility] Address [address] [facility] [address] Phone [phone] Care Team Providers Care Head Irrigator Name Role Phone Luz Maria Gama Primary Care Provider Reason for Visit * Reason Onset Date Comments Test Results 05/04/2024 Encounter Details Date Type Department Care Team (Late st Contact Info) Description 05/04/2024 Telephone Hematology/Oncology [facility] [place] [address] [facility] [place] [phone] Shay Song MD [address] [facility] [place] [address] Test Results Allergies No known active allergiesdocumented [...] opioid overdose. Seek medical help immediately. 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,Dyslipidemia , goal LDL [...] 3:45 PM EDT Pharmacy Pharmacy Hematology Oncology [facility] [address] [place] [address] [facility] Hem/Onc [address] [place] [address] 05/17/2024 11:00 AM EDT Laboratory Laboratory [address] [place], [place] [phone] [place], [facility] [address] [place], [place] [address] 05/17/2024 11:30 AM EDT Office Visit Hematology/Oncology [facility] [address] [place], [place] [phone] Anuja Cortez CRNP [address] [place], [place] [phone] 05/17/2024 12:00 PM EDT Hem/Onc Treatment Hematology/Oncology Treatment, [address], [place] [phone] Al[place], Chair [address] [place], [place] [address] 05/17/2024 12:30 PM EDT Office Visit Palliative Medicine [address], [place] [phone] Keisha Tompkins MD [address] [place], [place] [phone] 05/23/2024 4:00 PM EDT Imaging Radiology [address], [place] 132 [facility] [place] [phone] 05/31/2024 10:40 AM EDT Laboratory Laboratory [facility] [address] [place], [place] [phone] [place], Lab [facility] [address] [place] [address] 05/31/2024 11:15 AM EDT Office Visit Hematology/Oncology [facility] [address] [place], [place] [phone] Shay Song MD [address] [place], [place] [address] 05/31/2024 11:45 AM EDT Hem/Onc Treatment Hematology/Oncology Treatment, [place] [address] [place] [address] 06/13/2024 11:00 AM EDT Office Visit Audiology [facility] [address] [place] [address] Gloria Oropeza Au.D. [address] [place] [address] 06/19/2024 11:15 AM EDT Telemedicine Neurosurgery, [place] [address] [place] [address] Clinic, Brain Tumor Multidisciplinary [address] [place] [address] 06/28/2024 9:50 AM EDT Office Visit [facility] [address] [place] [address] Luz Maria Gama, DO [address] [place] [address] Scheduled Procedures Name Priority Associated Diagnoses Date/Ti [...] Documents on File Type Date Recorded Patient Health And Safety Tech Expl anation Advance Directives and Living Will 02/25/2024 Candi Mulligan signed on 11/06/2023 ADVANCE DIRECTIVE / LIVING WILL COMBINED LIVING WILL & HEALTH CARE POWER OF GUEST SERVICE MANAGER POLST 12/03/2023 9:15 AM sign date 12/01/2023 [...] the patient have Health Care Power of Emt P? No * Full Code Date Activated Date [...] Care Agent (per Health Care Power of Emt P document) [email or web address] Care Teams Head Irrigator Relationship Specialty Start Date End Date Luz Maria Gama DO [address] [place] [facility] [place] [address] PCP - General Family Medicine 01/04/23 documented as of this encounter
--- OUTSIDE RECORDS SUMMARY | 2024-05-06 15:28 | External Medical Summary | Summary of Care ---
Author Name Unknown Organization [facility] Address [address] [place] [address] Phone [phone] Care Team Providers Care Storekeeper Helper Name Role Phone Luz Maria Gama Primary Care Provider [phone] Reason for Visit * Reason Comments Chemotherapy Zirabev. * Episode Based Medications (Routine) - Authorized Specialty Diagnoses / Procedures Referred By Jerel jackson Referred To Contact Diagnoses Glioblastoma (HCC) Procedures IN INJ., ZIRABEV, 10 MG Palak Cast MD [address] [place] [address] Anc Hem/Onc [facility] Alannah [address] [place] [phone] Referral ID Status Reason Start Date Expiration Date V isits Requested Visits Authorized [id number] Authorized 02/28/2024 09/19/2099 [id number] Encounter Details Date Type Department Care Team (Latest Contact Info) Description 04/05/2024 11:30 AM EDT Hem/Onc Treatment Hematology/Oncolog y Treatment, [address] [place] [address] Alannah, Chair 11 Hem Onc [address] [address] Glioblastoma (HCC)*; Encounter for antineoplastic chemotherapy Allergies No known active allergiesdocumented as of this encounter (statuses as of 04/26/2024) Medications Medication Sig Dispensed Refills Start Date End Date Status nitroglycerin (NITROSTAT) 0.[address] 1 Tab under the tongue every 5 minutes as needed for Pain, Chest. 90 Tab 12 5 Active Lisinopril 20 MG Oral Tablet (Prinivil)Indicati ons:HTN, goal below 140/90 Take 1 Tablet by mouth in the morning. 90 Tablet 3 4 Active CPAP every night at bedtime. Active Naloxone HCl 0.4 MG/ML Injection Solution (Narcan)Indication s:Brain tumor (HCC),Brain mass Inject 1mL into a large muscle for suspected opioid overdose. Seek medical help immediately. [email or web address] 1 mL 3 4 Active Aspirin 81 MG Oral Tablet ChewableIndication s:Ischemic cardiomyopathy Take 1 Tablet by mouth in the morning. 30 Tablet 11 4 Active Polyethylene Glycol 3350 17 GM Oral Packet (Miralax)Indicatio ns:Constipation due to pain medication Take 1 Packet by mouth in the morning. 30 Each 4 Active Sennosides 8.6 MG Oral Tablet (Senokot)Indicatio ns:Constipation due to pain medication Take 2 Tablets by mouth at bedtime. 60 Tablet 4 Active levETIRAcetam 500 MG Oral Tablet (Keppra)Indication s:Brain tumor (HCC),Brain mass Take 1 Tablet by mouth in the morning and 1 Tablet before bedtime. 60 Tablet 2 4 Active Metoprolol Succinate ER 25 MG Oral Tablet Extended Release 24 Hour (toPROL XL)Indications:HTN , goal below 140/90,Ischemic cardiomyopathy,Cor onary artery disease involving [place] coronary artery of [place] heart without angina pectoris,Dyslipide kavon, goal LDL below 100,Essential hypertension with goal blood pressure less than 140/90 Take 1 Tablet by mouth in the morning. 90 Tablet 1 4 Active Ondansetron HCl 8 MG Oral Tablet (Zofran)Indication s:Glioblastoma (HCC) Take 1 tablet by mouth 30 minutes prior to lomustine and every 8 hours as needed for nausea. Do not exceed 3 tablets per 24 hours. 60 Tablet 1 4 Active Omeprazole 20 MG Oral Capsule Delayed Release (PriLOSEC)Indicati ons:Glioblastoma (HCC) Take 2 Capsules by mouth in the morning. 60 Capsule 5 4 Active buPROPion HCl ER (SR) 150 MG Oral Tablet Extended Release 12 Hour (Wellbutrin SR)Indications:Adj ustment disorder with depressed mood Take 1 tab by mouth twice per day 180 Tablet 1 3 04/16/20 24 Discontinued(Re fill) Naloxone HCl 4 MG/0.1ML Nasal Liquid (Narcan Nasal) Administer 1 spray into 1 nostril for suspected opioid overdose. Seek immediate medical attention. [email or web address] I 1 Each 3 4 04/05/20 24 Discontinued Omeprazole 40 MG Oral Capsule Delayed Release (PriLOSEC) Take 1 Capsule by mouth in the morning. 4 04/19/20 24 Discontinued(Ny dication List Clean Up) dexAMETHasone 4 MG Oral Tablet (Decadron) Take 1 Tablet by mouth 2 times a day with morning and evening meals. 4 04/19/20 24 Discontinued Sulfamethoxazole-T rimethoprim 800-160 MG Oral Tablet (Bactrim DS) Every other day during radiation 4 04/05/20 24 Discontinued Doxycycline Monohydrate 50 MG Oral CapsuleIndications :Rosacea Take 1 capsule by mouth once daily 90 Capsule 1 4 04/16/20 24 Discontinued(Re fill) Lomustine 40 MG Oral Capsule (Ceenu)Indications :Glioblastoma (HCC) Take 4 Capsules by mouth every 6 weeks. Take on an empty stomach at bedtime 4 Capsule 4 04/19/20 24 Discontinued(Re fill) dexAMETHasone 2 MG Oral Tablet (Decadron)Indicati ons:Glioblastoma (HCC) Take 1 Tablet by mouth 2 times a day with morning and evening meals. 60 Tablet 1 4 04/17/20 24 Discontinued Morphine Sulfate 30 MG Oral Tablet (Msir)Indications: Cancer related pain Take 1 Tablet by mouth every 4 hours as needed for Pain, Severe. Continued script 60 Tablet 4 04/05/20 24 Discontinued(Re fill) Morphine Sulfate ER 60 MG Oral Tablet Extended Release (Ms Contin)Indications :Cancer related pain Take 1 Tablet by mouth in the morning and 1 Tablet before bedtime. 30 Tablet 4 04/05/20 24 Discontinued(Re fill) busPIRone HCl 10 MG Oral Tablet (Buspar)Indication s:Anxiety state Take 1 Tablet by mouth 2 times a day as needed for Agitation or Anxiety. 60 Tablet 2 4 04/19/20 24 Discontinued(Re fill) documented as of this encounter (statuses as of 04/26/2024) Active Problems Problem Noted Date Diagnosed Date [...] as of this encounter (statuses as of 04/26/2024) Resolved Problems Problem Noted Date Diagnosed Date Resolved Date Brain mass 11/08/2023 11/19/2023 Bradycardia, sinus 01/21/2023 Body mass index (BMI) of 45. 0 to 49.9 in adult 07/29/2020 11/04/2020 Overview: Per Obesity protocol - Body mass index (BMI) of 40. 0 to 44.9 in adult 06/21/2017 08/01/2020 Overview: Per Obesity protocol #1 Venous insufficiency 04/23/2016 024 Testicular hypogonadism 09/24/2015 08/ HTN (hypertension) 08/17/2015 6 Overview: Per HTN Protocol NSTEMI (non-ST elevated myoc ardial infarction) 08/16/2015 08/17/2015 documented as of this encounter (statuses as of 04/26/2024) Immunizations Name Administration Dates Next Due COVID-19 [...] 02/01/2024 Does the household have a re lar source of income? (Household - for ages [...] Sign Reading Time Taken Comments Blood Pressure 144/81 04/05/2024 11:36 AM EDT Pulse 58 04/05/2024 11:36 AM EDT Temperature 36.8 C (98.2 F) 04/05/2024 1 1:36 AM EDT Respiratory Rate 18 04/05/2024 11:3 6 AM EDT Oxygen Saturation 96% 04/05/2024 11: 36 AM EDT Inhaled Oxygen Concentration - - Weight 141.4 kg (311 lb 12.8 oz) 2023 11:36 AM EDT Height - - Body Mass Index 40.03 11/05/2023 10:12 PM EST documented in this [...] as of this encounter Nursing Notes * Cyndi Rose RN - 04/05/2024 1:19 PM EDT Goals: Patient will remain free from injury. Possible barriers to meeting goals: Fall risk d/t ambulation with IV pole. Stability of the patient: Moderately unstable - medium risk of patient condition declining or worsening Summary regarding today's goals: Met: Patient remained free of injury. Patient tolerated infusion well. Discharged in stable condition. * Cyndi Rose RN - 04/05/2024 11:52 AM EDT Chair 1. Patient arrived for [facility] with no acute complaints. PIV established. Chemotherapy/Immunotherapy agents: ZIRABEV Consent for chemotherapy drug treatment complete, dated, and signed? yes, date - 02/28/24 Treatment lab parameters met? Yes Has treatment weight changed > than 10%? No Treatment preauthorized? Yes VITALS Filed Vitals: 04/05/24 1136 BP: 144/81 Pulse: 58 Resp: 18 Temp: 36.8 C (98.2 F) TempSrc: Tympanic SpO2: 96% Weight: (!) 141.4 kg (311 lb 12.8 oz) Urine protein: NEGATIVE Patient education completed for treatment? Yes Blood transfusion consent signed and complete? NA Return appointment scheduled? Yes Patient had provider visit today? No - If no provider visit must complete Pretreatment Assessment Functional Status: Functional status at today's visit: Ambulatory and capable of all selfcare but unable to carry out any work activities. Up and about more than 50% of waking hours The drug name, dose, infusion volume, rate and route of administration, expiration date and time, appearance and physical integrity of the drug and rate set on the pump and sequencing of drug administration (as applicable) were verified by me and second sign-in RN. Patient was assessed for symptoms or adverse side effects during treatment. PRE-TREATMENT ASSESSMENT: NEURO: denies symptoms CV/RESP: denies symptoms GI/: denies symptoms OTHER: denies any additional symptoms PAIN: 3-4 pain location : Head. Baseline. Safety and Risk for Injury Patient will remain free from injury. Ensure appropriate safety devices are available. Provide and maintain safe environment. documented in this encounter Plan of Treatment Upcoming Encounters Date Type Department Care Team (Late st Contact Info) Description 04/27/2024 3:45 PM EDT Pharmacy Pharmacy Hematology Oncology [place] [address] [place] [address] [facility] Clinic Hem/Onc [facility] [place] [address] 05/03/2024 11:00 AM EDT Laboratory Laboratory [facility] [place] [address] [place] [address] Alannah, Lab [address] [facility] [place] [address] 05/03/2024 12:00 PM EDT Hem/Onc Treatment Hematology/Oncology Treatment, [place] [address] [place] [phone] Alannah, Chair 6 Hem Onc [place] [place] [address] 05/17/2024 11:00 AM EDT Laboratory Laboratory [facility] [address] [place], [place] [phone] Alannah, Lab [facility] [address] [place], [place] [address] 05/17/2024 11:30 AM EDT Office Visit Hematology/Oncology [facility] [place] [address] [place] [phone] Anuja Cortez CRNP [address] [place], [place] [phone] 05/17/2024 12:00 PM EDT Hem/Onc Treatment Hematology/Oncology Treatment, [place] [address] [facility], [place] [phone] Alannah, Chair 11 Hem Onc [facility] 200 [facility] [place], [place] [address] 05/17/2024 12:30 PM EDT Office Visit Palliative Medicine [facility] [place] [address] [facility], [place] [phone] Keisha Tompkins MD [address] [place] [address] 05/23/2024 4:00 PM EDT Imaging Radiology [address], [place] [address] [facility] [place] [address] 05/31/2024 10:40 AM EDT Laboratory Laboratory [facility] Alannah [place] [address] [place] [phone] Alannah, Lab [facility] [address] [place] [address] 05/31/2024 11:15 AM EDT Office Visit Hematology/Oncology [facility] [place] [address] [place] [phone] Shay Song MD [address] [facility] [place] [address] 05/31/2024 11:45 AM EDT Hem/Onc Treatment Hematology/Oncology Treatment, [place] [address] [place], [place] [address] 06/13/2024 11:00 AM EDT Office Visit Audiology [facility] [address] [place] [address] Gloria Oropeza Au.D. [address] [place] [address] 06/19/2024 11:15 AM EDT [facility] [address] [place] [address] Clinic, Brain Tumor Multidisciplinary [address] [place] [address] 06/28/2024 9:50 AM EDT Office Visit [facility] [address] [place] [phone] Luz Maria Gama, [address] [place] [address] Scheduled Procedures Name Priority Associated Diagnoses Date/Ti me COLONOSCOPY FLEXIBLE PROXIMA L DIAGNOSTIC Recall Encounter for screening colonoscopy Health Maintenance Due Date Last Done Comments COVID-19 Vaccine (4 - 2022-2 4 season) 2023 06/08/2021, 12/02/2020, 10/28/2020 [...] chemotherapy documented in this encounter Administered Medications Inactive Administered Medications - up to 3 most recent administrations Medication Order MAR Action Action Date Dose Rate Site bevaCIZumab-bvzr (Zirabev) 1,400 mg in NSS 100 mL infusion 1,400 mg (rounded from 1,434 mg = 10 mg/kg 143.4 kg Treatment plan Recorded weight), IV Piggyback, ONCE, 1 dose, On Wed04/05/24 at 1315, Administer over 30 Minutes Start Infusion 04/05/2024 12:40 PM EDT 1,400 mg 210 mL/hr NSS infusion Intravenous, at 50 mL/hr, PRN, Starting on Wed04/05/24 at 1245, Until Wed04/05/24 at 1353, Maintenance line Start Infusion 04/05/2024 11:44 AM EDT 50 mL/hr documented in this encounter Advance Directives Documents on File Type Date Recorded 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 No * Full Code Date Activated Date [...] Care Agent (per Health Care Power of Ict Trainer document) [email or web address] Care Teams Storekeeper Helper Relationship Specialty Start Date End Date Luz Maria Gama DO [address] [place] [address] PCP - General Family Medicine 01/04/23 documented as of this encounter
--- OUTSIDE RECORDS SUMMARY | 2024-05-06 15:28 | External Medical Summary ---
Author Name Unknown Address Unknown Organization K09[facility] [address] Laboratory Report Ordering Provider Test Date Status BRIANNA VELAZQUEZ 05/03/2024 11:26:00 Final Observation Date Value Abnormality Reference (Units ) Status Color of Urine by Auto 05/03/2024 11:26:00 Dark Yellow Light Yellow, Yellow, Dark Yellow Final Clarity, Urine 05/03/2024 11:26:00 Clear Clear Final Glucose [Mass/volume] in Urine by Automated test strip 05/03/2024 11:26:00 Negative Negative (mg/dL) Final Bilirubin.total [Presence] in Urine by Automated test strip 05/03/2024 11:26:00 Negative Negative Final Ketones [Mass/volume] in Urine by Automated test strip 05/03/2024 11:26:00 Negative Negative (mg/dL) Final Specific gravity, Urine 05/03/2024 11:26:00 1.020 1.003-1.030 Final Hemoglobin [Presence] in Urine by Automated test strip 05/03/2024 11:26:00 Negative Negative Final pH, Urine 05/03/2024 11:26:00 6.5 5.0-7.5 (Units) Final Protein [Mass/volume] in Urine by Automated test strip 05/03/2024 11:26:00 Negative Negative (mg/dL) Final Urobilinogen [Mass/volume] in Urine by Automated test strip 05/03/2024 11:26:00 1.0 0.2, 1.0 (mg/dL) Final Nitrite [Presence] in Urine by Automated test strip 05/03/2024 11:26:00 Negative Negative Final Leukocyte esterase [Presence] in Urine by Automated test strip 05/03/2024 11:26:00 Negative Negative Final Annotation Comment 05/03/2024 11:26:00 Final Screen negative - Microscopi c not performed. Performing Location [facility] [address] [place] [address]
--- OUTSIDE RECORDS SUMMARY | 2024-05-06 15:28 | External Medical Summary | Summary of Care ---
Author Name Unknown Organization [facility] Address [address] [facility] [place] [address] Phone [phone] Care Team Providers Care Engineering Coordinator Name Role Phone Luz Maria Gama Primary Care Provider Reason for Visit * Reason Onset Date Comments Advice 05/03/2024 Encounter Details Date Type Department Care Team (Late st Contact Info) Description 05/03/2024 Telephone Hematology/Oncology [facility] [place] 200 [facility] [place] [phone] Shay Song MD 200 [facility] [place] [address] Advice Allergies No known active allergiesdocumented as of [...] opioid overdose. Seek medical help immediately. [email or web address]://[email or web address] 1 mL 3 11/18/2023 Active Aspirin 81 [...] below 140/90,Ischemic cardiomyopathy,Beltrán ry artery disease involving [place] coronary artery of [place] heart without angina pectoris,Dyslipidemia , goal LDL [...] (15 years old or older) No 11/05/19 24 Cognitive Status Response Date of Assessm ent Because of a physical, menta l, or emotional condition, do you have serious difficulty concentrating, remembering, or making decisions? (5 years old or older) No 11/05/2023 documented as of this encounter Miscellaneous Notes * Telephone Encounter - Danielle Blanco OSA - 05/03/2024 11:25 AM EDT Pt has tx today and wanted to know he is having some urinary issues. documented in this encounter Plan of Treatment Upcoming Encounters Date Type Department Care Team (Late st Contact Info) Description 05/03/2024 12:00 PM EDT Hem/Onc Treatment Hematology/Oncology Treatment, [place] [address] [facility] [phone] Alannah, Chair 6 Hem Onc [address] [place] [address] Arrived 05/03/2024 3:30 PM EDT Pharmacy Pharmacy Hematology Oncology [place] [address] [place] [address] [facility] [place] Hem/Onc [facility] [place] [address] 05/17/2024 11:00 AM EDT Laboratory Laboratory [facility] [place] [address] [place] [phone] Al[place], Lab [facility] 200 [facility] [place] [address] 05/17/2024 11:30 AM EDT Office Visit Hematology/Oncology [facility] [place] [address] [place], [place] [phone] Anuja Cortez CRNP [address] [place] [address] 05/17/2024 12:00 PM EDT Hem/Onc Treatment Hematology/Oncology [address], [place] [phone] Alannah, Chair 11 Hem Onc [facility] [address] [place] [facility] [address] [place], [place] [address] 05/17/2024 12:30 PM EDT Office Visit Palliative Medicine [facility] [address], [place] [phone] Keisha Tompkins MD [address] [place] [address] 05/23/2024 4:00 PM EDT Imaging Radiology [address], [place] 132 [facility] [place] [address] 05/31/2024 10:40 AM EDT Laboratory Laboratory [facility] [place] [address] [place], [place] [phone] Alannah, Lab [facility] [address] [facility] [place], [place] [address] 05/31/2024 11:15 AM EDT Office Visit Hematology/Oncology [facility] [place] [address] [place] [phone] Shay Song MD [address] [place] [address] 05/31/2024 11:45 AM EDT Hem/Onc Treatment [facility]ematology[facility]cology [facility], [place] [address] [facility] [phone] 06/13/2024 11:00 AM EDT Office Visit Audiology [facility] [address] [place] [address] Gloria Oropeza Au.D. 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 No * Full Code Date Activated Date [...] Care Agent (per Health Care Power of Sterile Preparation Technician document) Care Teams Engineering Coordinator Relationship Specialty Start Date End Date Luz Maria Gama DO [address] [place] [address] PCP - General Family Medicine 01/04/23 documented as of this encounter
--- OUTSIDE RECORDS SUMMARY | 2024-05-06 15:28 | External Medical Summary ---
Author Name Unknown Address Unknown Organization K09:[facility] [address] [place] [address] Laboratory Report Ordering Provider Test Date Status BRIANNA VELAZQUEZ 05/03/2024 11:26:00 Final Observation Date Value Abnormality Reference (Units ) Status BUN 05/03/2024 11:26:00 17 6-20 (mg/dL) Final Creatinine 05/03/2024 11:26:00 1.0 0.6-1.2 (mg/dL) Final Glomerular filtration rate/1.73 sq M.predicted [Volume Rate/Area] in Serum, Plasma or Blood by Creatinine-based formula (CKD-EPI) 05/03/2024 11:26:00 87 >=60 (mL/min) Final eGFR is calculated based on the CKD-EPI 2020 equation. Sodium 05/03/2024 11:26:00 140 135-146 (m mol/L) Final Potassium 05/03/2024 11:26:00 4.5 3.5-5.1 (m mol/L) Final Cl 05/03/2024 11:26:00 101 98-107 (mm ol/L) Final CO2 05/03/2024 11:26:00 29 22-32 (mmo l/L) Final Anion gap 05/03/2024 11:26:00 10 7-15 (mmol /L) Final Glucose 05/03/2024 11:26:00 84 70-120 (mg /dL) Final Albumin 05/03/2024 11:26:00 3.8 3.8-5.0 (g /dL) Final AST (Aspartate aminotransferase) 05/03/2024 11:26:00 15 10-50 (U/L) Final Alk Phos 05/03/2024 11:26:00 73 35-130 (U/ L) Final Bilirubin, Total 05/03/2024 11:26:00 0.5 <=1 .2 (mg/dL) Final Calcium 05/03/2024 11:26:00 9.6 8.4-10.2 ( mg/dL) Final Protein 05/03/2024 11:26:00 6.7 6.0-8.3 (g /dL) Final ALT (Alanine aminotransferase) 05/03/2024 11:26:00 35 10-50 (U/L) Final Performing Location [facility] [address] [place] [address]
--- OUTSIDE RECORDS SUMMARY | 2024-05-06 15:28 | External Medical Summary ---
Author Name Unknown Address Unknown Organization K01:[facility] [address] [place] [id number] Laboratory Report Ordering Provider Test Date Status FUENTES DAVALOS 05/03/2024 11:26:00 Final Observation Date Value Abnormality Reference (Units) Status Bacteria identified in Specimen by Culture 05/03/2024 11:26:00 No significant growth Final Test: Culture, Urine, Quant itative
Specimen Source: Urine, Clean Catch
Specimen Type: Urine
Specimen Date: 05/03/2024 112
Result Date: 05/04/2024 1129
Result Status: Final result
Resulting Lab: [facility]
[address]
[place] [id number]

CULTURE

No significant growth

null Performing Location [facility] - [address] [facility] [address]
--- OUTSIDE RECORDS SUMMARY | 2024-05-06 15:28 | External Medical Summary | Summary of Care ---
Author Name Unknown Organization [facility] Address [address] [place] [facility] [place] [place] [address] Phone [phone] Care Team Providers Care Tag Stringer Name Role Phone Luz Maria Gama Primary Care Provider Reason for Visit * Reason Onset Date Comments Medication Refill 05/01/2024 Encounter Details Date Type Department Care Team (Late st Contact Info) Description 05/01/2024 Refill Palliative Medicine [facility] [address] [place] [phone] Nathalie Nichole, PA-C [address] [place] [phone] Constipation due to pain medication Allergies No known active allergiesdocumented as of this encounter (statuses as of 05/01/2024) Medications Medication Sig Dispensed Refills Start Date End Date Status nitroglycerin (NITROSTAT) 0.[address] 1 Tab under the tongue every 5 minutes as needed for Pain, Chest. 90 Tab 12 08/17/2015 Active Lisinopril 20 MG Oral Tablet (Prinivil)Indication s:HTN, goal below 140/90 Take 1 Tablet by mouth in the morning. 90 Tablet 3 11/04/2023 Active CPAP every night at bedtime. Active Naloxone HCl 0.4 MG/ML Injection Solution (Narcan)Indications: Brain tumor (HCC),Brain mass Inject 1mL into a large muscle for suspected opioid overdose. Seek medical help immediately. [email or web address] 1 mL 3 11/18/2023 Active Aspirin 81 MG Oral Tablet ChewableIndications: Ischemic cardiomyopathy Take 1 Tablet by mouth in the morning. 30 Tablet 11 02/08/2024 Active Polyethylene Glycol 3350 17 GM Oral Packet (Miralax)Indications :Constipation due to pain medication Take 1 Packet by mouth in the morning. 30 Each 03/03/2024 Active levETIRAcetam 500 MG Oral Tablet (Keppra)Indications: Brain tumor (HCC),Brain mass Take 1 Tablet by mouth in the morning and 1 Tablet before bedtime. 60 Tablet 2 03/06/2024 Active Metoprolol Succinate ER 25 MG Oral Tablet Extended Release 24 Hour (toPROL XL)Indications:HTN, goal below 140/90,Ischemic cardiomyopathy,Coron christiane artery disease involving [place] coronary artery of [place] heart without angina pectoris,Dyslipidemi a, goal LDL below 100,Essential hypertension with goal blood pressure less than 140/90 Take 1 Tablet by mouth in the morning. 90 Tablet 1 03/04/2024 Active Ondansetron HCl 8 MG Oral Tablet (Zofran)Indications: Glioblastoma (HCC) Take 1 tablet by mouth 30 minutes prior to lomustine and every 8 hours as needed for nausea. Do not exceed 3 tablets per 24 hours. 60 Tablet 1 03/03/2024 Active Omeprazole 20 MG Oral Capsule Delayed Release (PriLOSEC)Indication s:Glioblastoma (HCC) Take 2 Capsules by mouth in the morning. 60 Capsule 5 03/16/2024 Active Morphine Sulfate ER 60 MG Oral Tablet Extended Release (Ms Contin)Indications:C ancer related pain Take 1 Tablet by mouth in the morning and 1 Tablet before bedtime. 60 Tablet 04/05/2024 Active Morphine Sulfate 30 MG Oral Tablet (Msir)Indications:Ca ncer related pain Take 1 Tablet by mouth every 4 hours as needed for Pain, Severe. Continued script 84 Tablet 04/05/2024 Active Doxycycline Monohydrate 50 MG Oral CapsuleIndications:R osacea Take 1 capsule by mouth once daily 90 Capsule 1 04/17/2024 Active buPROPion HCl ER (SR) 150 MG Oral Tablet Extended Release 12 Hour (Wellbutrin SR)Indications:Adjus tment disorder with depressed mood Take 1 tablet by mouth twice per day 180 Tablet 1 04/17/2024 Active dexAMETHasone 2 MG Oral Tablet (Decadron)Indication s:Glioblastoma (HCC) Take 1 Tablet by mouth 2 times a day with morning and evening meals. 60 Tablet 1 04/17/2024 Active busPIRone HCl 10 MG Oral Tablet (Buspar)Indications: Anxiety state Take 1 Tablet by mouth in the morning and 1 Tablet at noon and 1 Tablet before bedtime. 90 Tablet 2 04/19/2024 Active Lomustine 40 MG Oral Capsule (Ceenu)Indications:G lioblastoma (HCC) Take 5 Capsules by mouth every 6 weeks. Take on an empty stomach at bedtime 5 Capsule 04/24/2024 Active Sennosides 8.6 MG Oral Tablet (Senokot)Indications :Constipation due to pain medication Take 2 Tablets by mouth at bedtime. 60 Tablet 05/01/2024 Active Sennosides 8.6 MG Oral Tablet (Senokot)Indications :Constipation due to pain medication Take 2 Tablets by mouth at bedtime. 60 Tablet 03/03/2024 Discontinue d(Refill) documented as of this encounter (statuses as of 05/01/2024) Active Problems Problem Noted Date Diagnosed Date [...] as of this encounter (statuses as of 05/01/2024) Resolved Problems Problem Noted Date Diagnosed Date [...] as of this encounter (statuses as of 05/01/2024) Immunizations Name Administration Dates Next Due COVID-19 [...] encounter Miscellaneous Notes * Telephone Encounter - Madhuri Robison MD - 05/01/2024 8:32 AM EDT Signed Prescriptions: Disp Refills Sennosides 8.6 MG Oral Tablet (Senokot) 60 Tab*0 Sig: Take 2 Tablets by mouth at bedtime. Authorizing Provider: MADHURI ROBISON * Telephone Encounter - Sandra Cisneros LPN - 05/01/2024 7:47 AM EDTPending Prescriptions: Disp Refills Sennosides 8.6 MG Oral Tablet (Senokot) 60 Tab*0 Sig: Take 2 Tablets by mouth at bedtime. * Telephone Encounter - Sandra Cisneros LPN - 05/01/2024 7:46 AM EDT Did you pend patient's preferred pharmacy and medication before forwarding?yes Pharmacy: [facility] [address] Authorization for medication useage called to indicated pharmacy per Dr. Patel due to Remy Lujan. Last Visit: 04/19/2024 (in office), 03/08/2024 (telemedicine) Next Visit: 05/17/2024 If no future appointments scheduled, and last appointment is greater than a year ago, please schedule patient for a follow-up appointment Last date the medication was ordered: 03/03 Is this request for a controlled substance?No Urine Drug Screen:No results found for this or any previous visit. Patient Phone Numbers Outline App [phone] Labs: Lab Results Component Value Date/Time CREAT 0.9 04/19/2024 11:38 AM CREAT 1.17 11/22/2023 12:00 AM CREAT 1.1 04/02/2020 11:47 AM POTASSIUM 4.6 04/19/2024 11:38 AM POTASSIUM 4.2 11/22/2023 12:00 AM POTASSIUM 4.2 04/02/2020 11:47 AM TSH 1.77 10/25/2023 12:56 PM TSH 1.62 04/02/2020 11:47 AM LDLCALC 153 (H) 11/04/2023 01:05 PM LDLCALC 88 04/02/2020 11:47 AM LDLDIRECT NOT APPLICABLE 06/30/2017 09:38 AM ALT 46 04/19/2024 11:38 AM ALT 73 (H) 05/03/2020 01:29 PM HGBA1C 5.3 10/25/2023 12:56 PM HGBA1C 5.5 06/28/2018 11:41 AM documented in this encounter Plan of Treatment Upcoming Encounters Date Type Department Care Team (Ligia Contact Info) Description 05/03/2024 11:00 AM EDT Laboratory Laboratory [facility] [place] [address] [place] [phone] Alannah, Lab [facility] [address] [place] [address] 05/03/2024 12:00 PM EDT Hem/Onc Treatment Hematology/Oncology [address], [address] [phone] Alannah, Chair 6 Hem Onc [facility] [address] [place] [address] 05/03/2024 3:30 PM EDT Pharmacy Pharmacy Hematology Oncology [address] [address] [facility], [facility] Hem/Onc [address] [place] [address] 05/17/2024 11:00 AM EDT Laboratory Laboratory [facility] Al[place] [address] [place] [phone] Alannah, Lab [facility] [address] [place] [address] 05/17/2024 11:30 AM EDT Office Visit Hematology/Oncology [facility] [place] [address] [place] [phone] Anuja Cortez, OSVALDO [address] [place], [place] [phone] 05/17/2024 12:00 PM EDT Hem/Onc Treatment Hematology/Oncology Treatment, [address] [phone] Alannah, Chair 11 Hem Onc [facility] [address] [place] [address] 05/17/2024 12:30 PM EDT Office Visit Palliative Medicine [facility] 200 [facility] [address] Madhuri Robison MD [address] [place] [address] [place] [address] 05/23/2024 4:00 PM EDT Imaging Radiology [address] 132 [facility] [place] [address] 05/31/2024 10:40 AM EDT Laboratory Laboratory [facility] 200 [facility] [place] [phone] [address] [place] [address] 05/31/2024 11:15 AM EDT Office Visit Hematology/Oncology [address] [place] [phone] Shay Song MD 200 [facility] [place] [address] 05/31/2024 11:45 AM EDT Hem/Onc Treatment [facility]/Oncology [address] [phone] 06/13/2024 11:00 AM EDT Office Visit Audiology [facility] [address] [facility] [place] [address] Gloria Oropeza Au.D. 132 [facility] [place] [address] 06/19/2024 11:15 AM EDT Telemedicine Neurosurgery, [place] [address] [place] [address] Clinic, Brain Tumor Multidisciplinary [address] [place] [address] 06/28/2024 9:50 AM EDT Office Visit [address] [phone] Luz Maria Gama, DO [address] [place] [address] Scheduled Procedures Name Priority Associated Diagnoses Date/Ti [...] as of this encounter Visit Diagnoses Diagnosis Constipation due to pain medication Other constipation documented in this encounter Advance Directives Documents on File Type Date Recorded Patient Engineering Associate Expl anation Advance Directives and Living Will 02/25/2024 Candi Mulligan signed on 11/06/2023 ADVANCE DIRECTIVE / LIVING WILL COMBINED LIVING WILL & HEALTH CARE POWER OF SEEDLING SORTER POLST 12/03/2023 9:15 AM sign date 12/01/2023 [...] the patient have Health Care Power of Supply Crib Attendant? No * Full Code Date Activated Date [...] Care Agent (per Health Care Power of Supply Crib Attendant document) Care Teams Tag Stringer Relationship Specialty Start Date End Date Luz Maria Gama DO [address] [facility] [place] [address] PCP - General Family Medicine 01/04/23 documented as of this encounter
--- OUTSIDE RECORDS SUMMARY | 2024-05-06 15:28 | External Medical Summary ---
Author Name Unknown Address Unknown Organization K09[facility] [place] [address] Laboratory Report Ordering Provider Test Date Status BRIANNA VELAZQUEZ 05/03/2024 11:26:00 Final Observation Date Value Abnormality Reference (Units ) Status WBC, Total 05/03/2024 11:26:00 10.97 Above high normal 4 .00-10.80 (K/uL) Final RBC 05/03/2024 11:26:00 4.78 4.50-5.25 (M/uL) Final Hemoglobin 05/03/2024 11:26:00 15.5 14.0-16.8 (g/dL) Final HCT 05/03/2024 11:26:00 45.5 40.0-48.4 (%) Final MCV 05/03/2024 11:26:00 95.2 82.0-99.5 (fL) Final MCH 05/03/2024 11:26:00 32.4 27.0-34.0 (pg) Final MCHC 05/03/2024 11:26:00 34.1 32.0-36.0 (g/dL) Final RDW 05/03/2024 11:26:00 14.6 11.5-15.5 (%) Final Platelets 05/03/2024 11:26:00 192 140-400 (K /uL) Final MPV 05/03/2024 11:26:00 8.7 6.6-11.1 ( fL) Final Performing Location [facility] [place] [address]
--- OUTSIDE RECORDS SUMMARY | 2024-05-06 15:28 | External Medical Summary | Summary of Care ---
Author Name Unknown Organization [facility] Address [address] [place] [address] Phone [phone] Care Team Providers Care Executive Wellness Programs Director Name Role Phone Lzu Maria Gama Primary Care Provider [phone] Reason for Visit * Reason Comments Chemotherapy Zirabev. * Episode Based Medications (Routine) - Authorized Specialty Diagnoses / Procedures Referred By Jerel jackson Referred To Contact Diagnoses Glioblastoma (HCC) Procedures NV INJ., ZIRABEV, 10 MG Palak Cast MD [address] [place] [address] Anc Hem/Onc [facility] Alannah [address] [place] [phone] Referral ID Status Reason Start Date Expiration Date V isits Requested Visits Authorized [id number] Authorized 02/28/2024 09/19/2099 [id number] Encounter Details Date Type Department Care Team (Latest Contact Info) Description 04/05/2024 11:30 AM EDT Hem/Onc Treatment Hematology/Oncolog y Treatment, [address] [place] [address] Alannah, Chair 11 Hem Onc [address] [address] Glioblastoma (HCC)*; Encounter for antineoplastic [...] suspected opioid overdose. Seek medical help immediately. [email or web address] 1 mL 3 4 Active Aspirin 81 [...] below 140/90,Ischemic cardiomyopathy,Cor onary artery disease involving [place] coronary artery of [place] heart without angina pectoris,Dyslipide kavon, goal LDL [...] suspected opioid overdose. Seek immediate medical attention. [email or web address] I 1 Each 3 4 04/05/20 24 Discontinued Omeprazole 40 MG Oral Capsule Delayed Release (PriLOSEC) Take 1 Capsule by mouth in the morning. 4 04/19/20 24 Discontinued(Tn dication List Clean Up) dexAMETHasone 4 MG [...] AM EDT Chair 1. Patient arrived for [facility] with no acute complaints. PIV established. Chemotherapy/Immunotherapy [...] 3:45 PM EDT Pharmacy Pharmacy Hematology Oncology [place] [address] [place] [address] [facility], [facility] Clinic Hem/Onc [facility] [place] [address] 05/03/2024 11:00 AM EDT Laboratory Laboratory [facility] [place] [address] [place] [address] Alannah, Lab [place] [address] [facility] [place] [address] 05/03/2024 12:00 PM EDT Hem/Onc Treatment Hematology/Oncology Treatment, [place] [address] [place] [phone] Alannah, Chair 6 Hem Onc [place] [address] [place] [address] 05/17/2024 11:00 AM EDT Laboratory Laboratory [facility] [address] [place], [place] [phone] Alannah, Lab [facility] [address] [place], [place] [address] 05/17/2024 11:30 AM EDT Office Visit Hematology/Oncology [facility] [place] [address] [place] [phone] Anuja Cortez CRNP [address] [place], [place] [phone] 05/17/2024 12:00 PM EDT Hem/Onc Treatment Hematology/Oncology Treatment, [place] 200 [facility], [place] [phone] Alannah, Chair 11 Hem Onc [facility] 200 [facility] [place], [place] [address] 05/17/2024 12:30 PM EDT Office Visit Palliative Medicine [facility] [place] [address] [facility], [place] [phone] Keisha Tompkins MD [address] [place] [address] 05/23/2024 4:00 PM EDT Imaging Radiology [address], [place] 132 [facility] [place] [address] 05/31/2024 10:40 AM EDT Laboratory Laboratory [facility] Al[place] [address] [place] [phone] [place], Lab [facility] [address] [place] [address] 05/31/2024 11:15 AM EDT Office Visit Hematology/Oncology [facility] [place] [address] [place] [phone] Shay Song MD 200 [place] [address] 05/31/2024 11:45 AM EDT Hem/Onc Treatment Hematology/Oncology Treatment, [place] [address] [place], [place] [address] 06/13/2024 11:00 AM EDT Office Visit Audiology [facility] [address] [place] [address] Gloria Oropeza Au.D. [address] [place] [address] 06/19/2024 11:15 AM EDT [facility] [address] [place] [address] Clinic, Brain Tumor Multidisciplinary [address] [place] [address] 06/28/2024 9:50 AM EDT Office Visit [facility] [address] [place] [phone] Luz Maria Gama, [address] [place] [address] Scheduled Procedures Name Priority Associated Diagnoses Date/Ti [...] Documents on File Type Date Recorded Patient Therapeutic Consultant Expl anation Advance Directives and Living Will 02/25/2024 Candi Mulligan signed on 11/06/2023 ADVANCE DIRECTIVE / LIVING WILL COMBINED LIVING WILL & HEALTH CARE POWER OF WATER RESOURCE SPECIALIST POLST 12/03/2023 9:15 AM sign date 12/01/2023 [...] the patient have Health Care Power of Teacher Instrumental? No * Full Code Date Activated Date [...] Care Agent (per Health Care Power of Teacher Instrumental document) [email or web address] Care Teams Executive Wellness Programs Director Relationship Specialty Start Date End Date Luz Maria Gama DO [address] [place] [address] PCP - General Family Medicine 01/04/23 documented as of this encounter
--- OUTSIDE RECORDS SUMMARY | 2024-05-06 15:28 | External Medical Summary | Summary of Care ---
Author Name Unknown Organization [facility] Address [address] [facility] [address] Phone [phone] Care Team Providers Care Box Maker Paperboard Name Role Phone Luz Maria Gama Primary Care Provider [phone] Reason for Visit * Reason Comments Outpatient Testing Encounter Details Date Type Department Care Team (Late st Contact Info) Description 05/03/2024 11:00 AM EDT Laboratory Laboratory [place] [address] [place] [phone] [place], Lab [address] [address] [place] [address] Glioblastoma (HCC); Burning with urination Allergies No known active allergiesdocumented as of [...] opioid overdose. Seek medical help immediately. [email or web address] 1 mL 3 11/18/2023 Active Aspirin 81 [...] below 140/90,Ischemic cardiomyopathy,Beltrán ry artery disease involving lummi coronary artery of lummi heart without angina pectoris,Dyslipidemia , goal LDL [...] No 11/05/2023 documented as of this encounter Plan of Treatment Upcoming Encounters Date Type Department Care Team (Late st Contact Info) Description 05/03/2024 12:00 PM EDT Hem/Onc Treatment Hematology/Oncology Treatment, [place] [address] [place] [phone] Alannah, Chair 6 Hem Onc [address] [place] [address] Arrived 05/03/2024 3:30 PM EDT Pharmacy Pharmacy Hematology Oncology [facility] [address] [place] [address] [facility] Hem/Onc [address] [place] [address] 05/17/2024 11:00 AM EDT Laboratory Laboratory [facility] Alannah [address] [place] [phone] Alannah Lab [place] [address] [address] COUNT INCLUDES [facility] [place] [address] 05/17/2024 11:30 AM EDT Office Visit Hematology/Oncology [facility] Al[place] [address] [place] [phone] Anuja Cortez CRNP [address] [facility] [place] [address] 05/17/2024 12:00 PM EDT [facility] 200 [facility], [place] [phone] Alannah, Chair 11 Hem Onc [facility] 200 [facility] [place] [address] 05/17/2024 12:30 PM EDT Office Visit Palliative Medicine [facility] [place] 200 [facility], [place] [phone] Keisha Tompkins MD [address] [place] [address] [place] [address] 05/23/2024 4:00 PM EDT Imaging Radiology [address] 132 [facility] [address] 05/31/2024 10:40 AM EDT Laboratory Laboratory [facility] [place] 200 [facility] [place] [phone] Al[place], Lab [address] [place], [place] [address] 05/31/2024 11:15 AM EDT Office Visit Hematology/Oncology [facility] [place] 200 [facility] [place] [phone] Shay Song MD 200 [facility] [place], [place] [address] 05/31/2024 11:45 AM EDT Hem[facility]Onc [facility] 200 [facility], [place] [phone] 06/13/2024 11:00 AM EDT Office Visit Audiology [facility] 132 [facility] [place] [address] Gloria Oropeza Au.D. 132 [facility] [place] [address] 06/19/2024 11:15 AM EDT Telemedicine Neurosurgery, [place] [address] [place] [address] Clinic, Brain Tumor Multidisciplinary [address] [place] [address] 06/28/2024 9:50 AM EDT Office Visit [facility] [address] [place] [phone] Luz Maria Gama, [address] [place], [place] [phone] Pending Results Name Type Priority Associated Diagnoses Date /Time CBC WITH WBC DIFFERENTIAL Lab STAT Glioblastoma (HCC) 05/03/2024 11:26 AM EDT COMPREHENSIVE METABOLIC PANEL Lab STAT Glioblastoma (HCC) 05/03/2024 11:26 AM EDT CULTURE, URINE, QUANTITATIVE Lab Routine Burning with urination 05/03/2024 11:26 AM EDT CBC Lab STAT Glioblastoma (HCC) 05/03/2024 11:26 AM EDT DIFFERENTIAL, AUTOMATED Lab STAT Glioblastoma (HCC) 05/03/2024 11:26 AM EDT Scheduled Procedures Name Priority Associated Diagnoses Date/Ti [...] Not on filedocumented as of this encounter Procedures Procedure Name Priority Date/Time Associated Diagnosis Comments URINALYSIS, REFLEX TO MICROSCOPIC STAT 05/03/2024 11:26 AM EDT Glioblastoma (HCC) documented in this encounter Results * URINALYSIS, REFLEX TO MICROSCOPIC (05/03/2024 11:26 AM EDT) Color, Urine Dark Yellow Light Yellow, Yellow, Dark Yellow 05/03/2024 11:40 [address] EDT [address] Clarity, Urine Clear Clear 05/03/2024 11:40 [address] EDT [address] Glucose, Urine Negative Negative mg/dL 05/03/2024 11:40 AM EDT [address] Bilirubin, Urine Negative Negative 05/03/2024 11:40 AM EDT [address] Ketone, Urine Negative Negative mg/dL 05/03/2024 11:[address] EDT [address] Specific Erin, Urine 1.020 1.003 - 1.030 05/03/2024 11:40 AM EDT [address] Blood, Urine Negative Negative 05/03/2024 11:40 AM EDT [address] pH, Urine 6.5 5.0 - 7.5 Units 05/03/2024 11:40 AM EDT [address] Protein, Urine Negative Negative mg/dL 05/03/2024 11:40 AM EDT [address] Urobilinogen, Urine 1.0 0.2, 1.0 mg/dL 05/03/2024 11:40 AM EDT [address] Nitrite, Urine Negative Negative 05/03/2024 11:[address] EDT [address] Esterase, Urine Negative Negative 11:40 AM EDT [address] Comment, Urine 05/03/2024 11:40 AM EDT [address] Comment:Screen negative - Mi croscopic not performed. Urine Urine specimen obtained by clean catch procedure / Unknown Non-blood Collection / Unknown 05/03/2024 11:26 AM EDT 05/03/2024 11:26 AM EDT Palak Cast MD LAB URINE ORDERABLES [address] [place] [address] documented in this encounter Visit Diagnoses Diagnosis Glioblastoma (HCC) Malignant neoplasm of brain, unspecified site Burning with urination Dysuria documented in this encounter Advance Directives Documents on File Type Date Recorded Patient Clinical Informatics Educator Expl anation Advance Directives and Living Will 02/25/2024 Candi Isaak signed on 11/06/2023 ADVANCE DIRECTIVE / LIVING WILL COMBINED LIVING WILL & HEALTH CARE POWER OF GRINDER TENDER POLST 12/03/2023 9:15 AM sign date 12/01/2023 [...] the patient have Health Care Power of Haul Truck Driver? No * Full Code Date Activated Date [...] Care Agent (per Health Care Power of Haul Truck Driver document) [email or web address] Care Teams Box Maker Paperboard Relationship Specialty Start Date End Date Luz Maria Gama DO [address] [facility] [place] [place] [address] PCP - General Family Medicine 01/04/23 documented as of this encounter
--- OUTSIDE RECORDS SUMMARY | 2024-05-06 15:28 | External Medical Summary | Summary of Care ---
Author Name Unknown Organization [facility] Address [address] [place] [address] Phone [phone] Care Team Providers Care Dietetic Assistant Name Role Phone Luz Maria Gama Primary Care Provider Reason for Visit * Reason Comments Medication Management Encounter Details Date Type Department Care Team (Late st Contact Info) Description 04/27/2024 3:45 PM EDT Pharmacy Pharmacy Hematology Oncology [facility] [address] [place] [address] [facility] [place] Hem/Onc [address], [place] [id number] Glioblastoma (HCC)* Allergies No known active allergiesdocumented as of this encounter (statuses as of 04/27/2024) Medications Medication Sig Dispensed Refills Start Date [...] opioid overdose. Seek medical help immediately. [email or web address] 1 mL 3 11/18/2023 Active Aspirin 81 MG Oral Tablet ChewableIndications:I schemic cardiomyopathy Take 1 Tablet by mouth in the morning. 30 Tablet 11 02/08/2024 Active Polyethylene Glycol 3350 17 GM Oral Packet (Miralax)Indications: Constipation due to pain medication Take 1 Packet by mouth in the morning. 30 Each 03/03/2024 Active Sennosides 8.6 MG Oral Tablet (Senokot)Indications: Constipation due to pain medication Take 2 Tablets by mouth at bedtime. 60 Tablet 03/03/2024 Active levETIRAcetam 500 MG Oral Tablet (Keppra)Indications:B rain tumor (HCC),Brain mass Take 1 Tablet by mouth in the morning and 1 Tablet before bedtime. 60 Tablet 2 03/06/2024 Active Metoprolol Succinate ER 25 MG Oral Tablet Extended Release 24 Hour (toPROL XL)Indications:HTN, goal below 140/90,Ischemic cardiomyopathy,Beltrán ry artery disease involving manzanita coronary artery of manzanita heart without angina pectoris,Dyslipidemia , goal LDL [...] stomach at bedtime 5 Capsule 04/24/2024 Active documented as of this encounter (statuses as of 04/27/2024) Active Problems Problem Noted Date Diagnosed Date [...] as of this encounter (statuses as of 04/27/2024) Resolved Problems Problem Noted Date Diagnosed Date [...] as of this encounter (statuses as of 04/27/2024) Immunizations Name Administration Dates Next Due COVID-19 [...] this encounter Progress Notes * Martha Rivera, [facility] - 04/27/2024 1:17 PM EDT MEDICATION THERAPY MANAGEMENT LOMUSTINE TREATMENT PROGRESS NOTE Remy Lujan [phone] Patient Phone Numbers [employer] [phone] Significant Other: Candi Communication: Left message Treatment: Medication: Lomustine (CCNU, Gleostine) Indication/Staging/Diagnosis Code: [...] stomach at bedtime Start Date: 03/24/24 Primary Shop Clerk/Oncologist: Dr. Shay Song Additional Therapy: Bevacizumab Supportive Care Meds: Ondansetron Miralax Senna Prophylactic Meds: Consider PJP ppx for ALC < 0.5 - patient was on Bactrim previously Relevant Chronic Medications: Category Medications Pertinent Notes Antihypertensives Lisinopril Metoprolol Anticoagulation Aspirin Cycle Dates C1 03/24/24 C2 05/05/24 (Anticipated) Treatment History: Resection 11/10/23 TMZ+RT completed 01/24/24 Treatment Dose Adjustment/Hold History: N/A Interval History: Significant other aware that it is recommended for labs to be completed weekly. However, due to travel concerns, they are planning to have have labs complete q2w with bevacizumab treatments Changes to medication list since last visit? No Drug interaction assessment: Treatment plan and current medication list evaluated for drug-drug interactions. No clinically significant drug interaction identified Assessment and Plan: Dr. Song agrees with lomustine dose increase to 200 mg for Cycles 2+ Per BELOB Trial: Cycle 1: 90 mg/m2 * 2.68 m2 (02/29/24) = 241.2 mg (max dose 160 mg) Cycles 2+: 110 mg/m2 (if there were no hematologic toxic effects of a grade of more than 1 during the first cycle) * 2.68 m2 (02/29/24) = 294.8 mg (max dose 200 mg) Lomustine prescription for 200 mg PO once was sent to [facility] on 04/24 and is shipping to patient today LM and advised NOT to take Temodar until labs reviewed on 05/03 (dose not due until 05/05) Assessment of compliance: compliant Assessment of adverse effects attributed to drug therapy: N/A Dose adjustment needed based on lab or adverse drug reaction? Yes, dose increase as above Follow up: 05/03 Martha Rivera, PharmD, BCOP Ambulatory Clinical Pharmacist | Oral Chemotherapy Clinic [facility] 04/27/2024, 1:21 PM Monitoring Parameters: Estimated CrCl Serum creatinine: 0.9 mg/dL 04/19/24 1138 Estimated creatinine clearance: 135.1 mL/min Hepatitis panel Complete 02/28/24 Not immune to hepatitis B virus Suggested lab monitoring CBCd and CMP weekly Treatment Parameters Please refer to PI Pertinent labs: Time Spent on Encounter: 6 - 10 minutes Encounter Group: Neuro-Oncology Encounter Interventions Item Category: Oral Chemotherapy Lomustine Problem/Rationale: Safety: Needs additional monitoring - Medication Requires monitoring Pharmacist Intervention(s): Care coordination Magnitude of Intervention: Monitoring with direction (Level 1) documented in this encounter Plan of Treatment Upcoming Encounters Date Type Department Care Team (Late st Contact Info) Description 05/03/2024 11:00 AM EDT Laboratory Laboratory [facility] Karina Alvarez [address], [place] [phone] [place], Lab [facility] [address] [place], [place] [address] 05/03/2024 12:00 PM EDT Hem/Onc Treatment Hematology/Oncology Treatment, [place] [address] [facility], [place] [phone] Alannah, Chair 6 Hem Onc [facility] 200 [facility] [place], [place] [address] 05/03/2024 3:30 PM EDT Pharmacy Pharmacy Hematology Oncology [place] [address] [place] [address] [facility] [place] Hem/Onc [facility] [place] [address] 05/17/2024 11:00 AM EDT Laboratory Laboratory [facility] Al[place] [address] [place], [place] [address] [place], Lab [facility] [address] [facility] [place], [place] [address] 05/17/2024 11:30 AM EDT Office Visit Hematology/Oncology [facility] [place] 200 [facility] [place], [place] [phone] Anuja Cortez CRNP [address] [place] [address] 05/17/2024 12:00 PM EDT Hem/Onc Treatment Hematology/Oncology Treatment, [address] [place] [address] [place], Chair 11 Hem Onc [facility] [address] [facility] [place], [place] [address] 05/17/2024 12:30 PM EDT Office Visit Palliative Medicine [facility] [place] [address] [facility], [place] [phone] Keisha Tompkins MD [address] [place] [address] 05/23/2024 4:00 PM EDT Imaging Radiology [address] [facility] [place] [address] 05/31/2024 10:40 AM EDT Laboratory Laboratory [facility] [address] [place] [phone] [facility] [address] [facility] [place] [address] 05/31/2024 11:15 AM EDT Office [facility]emat[facility] [phone] Shay Song [facility] [address] 05/31/2024 11:45 AM EDT [facility] [address] [facility] [address] [place], [place] [phone] 06/13/2024 11:00 AM EDT Office Visit Audiology [facility] 132 [facility] [place] [address] Gloria Oropeza AuLibby 132 [facility] [place] [address] 06/19/2024 11:15 AM EDT Telemedicine Neurosurgery, [place] [address] [facility] [place] [address] Clinic, Brain Tumor Multidisciplinary [address] [place] [address] 06/28/2024 9:50 AM EDT Office Visit [facility] [address] [place] [phone] Luz Maria Gama DO [address] [place] [address] Scheduled Procedures Name Priority Associated Diagnoses Date/Ti [...] Documents on File Type Date Recorded Patient Outpatient Program Coordinator Expl anation Advance Directives and Living Will 02/25/2024 Candi Mulligan signed on 11/06/2023 ADVANCE DIRECTIVE / LIVING WILL COMBINED LIVING WILL & HEALTH CARE POWER OF GROUND SCHOOL INSTRUCTOR POLST 12/03/2023 9:15 AM sign date 12/01/2023 [...] the patient have Health Care Power of Embedded Hardware Engineer? No * Full Code Date Activated Date [...] Name Relationship Healthcare Agent Relationship Communication Candi Mluligan Significant Other Health Care Agent (per Health Care Power of Embedded Hardware Engineer document) [email or web address] [employer] Care Teams Dietetic Assistant Relationship Specialty Start Date End Date Luz Maria Gama DO [address] [place] [address] PCP - General Family Medicine 01/04/23 documented as of this encounter"
--- OUTSIDE RECORDS SUMMARY | 2024-05-06 15:28 | External Medical Summary | Summary of Care ---
Author Name Unknown Organization [facility] Address [address] [place] [address] Phone [phone] Care Team Providers Care Cylinder Dyer Name Role Phone Luz Maria Gama Primary Care Provider [phone] Reason for Visit * Reason Comments Chemotherapy C1/D1 - Zirabev * Episode Based Medications (Routine) - Authorized Specialty Diagnoses / Procedures Referred By Jerel t Referred To Contact Diagnoses Glioblastoma (HCC) Procedures ND INJ., ZIRABEV, 10 MG Palak Cast MD [address] [place] [address] Anc Hem/Onc [facility] [place] [address] [place] [phone] Referral ID Status Reason Start Date Expiration Date V isits Requested Visits Authorized [id number] Authorized 02/28/2024 09/19/2099 [id number] Encounter Details Date Type Department Care Team (Latest Contact Info) Description 03/22/2024 12:00 PM EDT Hem/Onc Treatment Hematology/Oncolog y Treatment, [address] [place] [address] [place], Chair 1 Hem Onc [address] [address] Glioblastoma (HCC)*; Encounter for antineoplastic [...] suspected opioid overdose. Seek medical help immediately. [email or web address] 1 mL 3 4 Active Aspirin 81 [...] below 140/90,Ischemic cardiomyopathy,Cor onary artery disease involving nisqually coronary artery of nisqually heart without angina pectoris,Dyslipide kavon, goal LDL [...] suspected opioid overdose. Seek immediate medical attention. [email or web address] I 1 Each 3 4 04/05/20 24 Discontinued Omeprazole 40 MG Oral Capsule Delayed Release (PriLOSEC) Take 1 Capsule by mouth in the morning. 4 04/19/20 24 Discontinued(Ks dication List Clean Up) dexAMETHasone 4 MG [...] 60 Tablet 1 4 04/17/20 24 Discontinued documented as of this encounter (statuses as [...] 04/23/2016 Adjustment disorder with depressed mood 04/23/20 HTN, goal below 140/90 03/02/2016 Overview: Per [...] Sign Reading Time Taken Comments Blood Pressure 122/79 03/22/2024 11:51 AM EDT Pulse 74 03/22/2024 11:51 AM EDT Temperature 36.7 C (98 F) 03/22/2024 11:51 AM EDT Respiratory Rate 18 03/22/2024 11:51 AM EDT Oxygen Saturation 95% 03/22/2024 11:51 AM EDT Inhaled Oxygen Concentration - - Weight 136.5 kg (301 lb) 03/22/2024 11:51 AM EDT Height - - Body Mass Index 38.65 11/05/2023 10:12 PM EST documented in this [...] Nursing Notes * Enedina Berrios RN - 03/22/2024 1:47 PM EDT Goals: Patient will remain free from injury. Possible barriers to meeting goals: ambulating with IV pole Stability of the patient: Moderately stable - low risk of patient condition declining or worsening Summary regarding today's goals: Met: pt remained free of harm today Patient tolerated treatment well without any acute issues or problems. Patient left facility in stable condition and denied any further needs. * Enedina Berrios RN - 03/22/2024 12:38 PM EDT Chair 7. Patient presents today for first cycle of chemotherapy, accompanied by significant other, Candi. Patient was educated about establishing IV access, giving premeds, taking PRN home medications, process of getting medication from pharmacy, layout of treatment room, use of call brunner, etc. Patient communicated understanding and denied any further questions, concerns, needs. Patient starting 160 mg PO lomustine tonight. Chemotherapy/Immunotherapy agents: EMELY Consent for chemotherapy drug treatment complete, dated, and signed? yes, date - 02/28/2024 Treatment lab parameters met? Yes Has treatment weight changed > than 10%? No Treatment preauthorized? Yes VITALS Filed Vitals: 03/22/24 1151 BP: 122/79 Pulse: 74 Resp: 18 Temp: 36.7 C (98 F) SpO2: 95% Weight: (!) 136.5 kg (301 lb) Urine protein: NEGATIVE Patient education completed for [...] side effects during treatment. PRE-TREATMENT ASSESSMENT: NEURO: OTHER: Glioblastoma - symptoms related to tumor location, aphasia and fatigue CV/RESP: denies symptoms GI/: denies symptoms OTHER: denies any additional symptoms PAIN: 0 Safety and Risk for Injury Patient will remain free from injury. Ensure appropriate safety devices are available. Provide and maintain safe environment. documented in this encounter Plan of Treatment Upcoming Encounters Date Type Department Care Team (Late st Contact Info) Description 04/27/2024 3:45 PM EDT Pharmacy Pharmacy Hematology Oncology [address] [address] [facility] [place] Clinic Hem/Onc [facility] [place] [address] 05/03/2024 11:00 AM EDT Laboratory Laboratory [facility] Al[place] [address] [place] [phone] Alannah, Lab [address] [facility] [place] [address] 05/03/2024 12:00 PM EDT Hem/Onc Treatment Hematology/Oncology Treatment, [place] [address] [place] [phone] Alannah, Chair 6 Hem Onc [place] [address] [place] [address] 05/17/2024 11:00 AM EDT Laboratory [facility] [place] [address] [place] [phone] Al[place], Lab [address] [place] [address] 05/17/2024 11:30 AM EDT Office Visit Hematology/Oncology [facility] [address] [place], [place] [phone] Anuja Cortez CRNP [address] [place] [address] 05/17/2024 12:00 PM EDT [facility] 200 [facility], [place] [phone] Alannah, Chair [address] [facility] [place], [place] [address] 05/17/2024 12:30 PM EDT Office Visit Palliative Medicine [facility] [address], [place] [phone] Keisha Tompkins MD [address] [place] [address] 05/23/2024 4:00 PM EDT Imaging Radiology [address], [place] [address] [facility] [place] [address] 05/31/2024 10:40 AM EDT Laboratory Laboratory [facility] [place] [address] [place], [place] [phone] Al[place], Lab [facility] [address] [facility] [place], [place] [address] 05/31/2024 11:15 AM EDT Office Visit Hematology/Oncology [facility] [place] [address] [place] [phone] Shay Song MD [address] [place] [address] 05/31/2024 11:45 AM EDT Hem/Onc Treatment Hematology/Oncology Treatment, [place] [facility] [phone] 06/13/2024 11:00 AM EDT Office Visit Audiology [facility] [address] [place] [address] Gloria Oropeza Au.D. [address] [place] [address] 06/19/2024 11:15 AM EDT Telemedicine Neurosurgery, [place] [address] [place] [address] Clinic, Brain Tumor Multidisciplinary [address] [place] [address] 06/28/2024 9:50 AM EDT Office Visit [facility] [address] [place] [phone] Luz Maria Gama DO [address] [place] [address] Scheduled Procedures Name Priority Associated Diagnoses Date/Ti [...] weight), IV Piggyback, ONCE, 1 dose, On Wed03/22/24 at 1330, Administer over 30 Minutes Start Infusion 03/22/2024 12:30 PM EDT 1,400 mg 210 mL/hr NSS infusion Intravenous, at 50 mL/hr, PRN, Starting on Wed03/22/24 at 1300, Until Wed03/22/24 at 1747, Maintenance line Start Infusion 03/22/2024 11:53 AM EDT 50 mL/hr documented in this encounter Advance Directives Documents on File Type Date Recorded Patient Front End Ui Developer Expl anation Advance Directives and Living Will 02/25/2024 Candi Mulligan signed on 11/06/2023 ADVANCE DIRECTIVE / LIVING WILL COMBINED LIVING WILL & HEALTH CARE POWER OF MARKETING EDITOR POLST 12/03/2023 9:15 AM sign date 12/01/2023 [...] the patient have Health Care Power of Electronic Plotting System Operator? No * Full Code Date Activated Date [...] Care Agent (per Health Care Power of Electronic Plotting System Operator document) [email or web address] Care Teams Cylinder Dyer Relationship Specialty Start Date End Date Luz Maria Gama DO [address] [place] [address] PCP - General Family Medicine 01/04/23 documented as of this encounter
--- OUTSIDE RECORDS SUMMARY | 2024-05-06 15:28 | External Medical Summary | Summary of Care ---
Author Name Unknown Organization [facility] Address [address] [place] [address] Phone [phone] Care Team Providers Care Automation Specialist Name Role Phone Luz Maria Gama Primary Care Provider [phone] Reason for Visit * Reason Comments Chemotherapy Zirabev. * Episode Based Medications (Routine) - Authorized Specialty Diagnoses / Procedures Referred By Jerel jackson Referred To Contact Diagnoses Glioblastoma (HCC) Procedures ID INJ., ZIRABEV, 10 MG Palak Cast MD [address] [place] [address] Anc Hem/Onc [address] [address] Referral ID Status Reason Start Date Expiration Date V isits Requested Visits Authorized [id number] Authorized 02/28/2024 09/19/2099 [id number] Encounter Details Date Type Department Care Team (Latest Contact Info) Description 04/19/2024 12:30 PM EDT Hem/Onc Treatment Hematology/Oncolog y Treatment, [address] [address] Glioblastoma (HCC)*; Encounter for antineoplastic chemotherapy Allergies No known active allergiesdocumented as of this encounter (statuses as of 04/25/2024) Medications Medication Sig Dispensed Refills Start Date [...] suspected opioid overdose. Seek medical help immediately. [email or web address] 1 mL 3 11/18/2023 Active Aspirin 81 MG Oral Tablet ChewableIndications: Ischemic cardiomyopathy Take 1 Tablet by mouth in the morning. 30 Tablet 11 02/08/2024 Active Polyethylene Glycol 3350 17 GM Oral Packet (Miralax)Indications :Constipation due to pain medication Take 1 Packet by mouth in the morning. 30 Each 03/03/2024 Active Sennosides 8.6 MG Oral Tablet (Senokot)Indications [...] below 140/90,Ischemic cardiomyopathy,Coron christiane artery disease involving [place] coronary artery of [place] heart without angina pectoris,Dyslipidemi a, goal LDL [...] evening meals. 60 Tablet 1 04/17/2024 Active Omeprazole 40 MG Oral Capsule Delayed Release (PriLOSEC) Take 1 Capsule by mouth in the morning. 12/27/2023 4 Discontinue d(Medicatio n List Clean Up) Lomustine 40 MG Oral Capsule (Ceenu)Indications:G lioblastoma (HCC) Take 4 Capsules by mouth every 6 weeks. Take on an empty stomach at bedtime 4 Capsule 03/03/2024 4 Discontinue d(Refill) busPIRone HCl 10 MG Oral Tablet (Buspar)Indications: Anxiety state Take 1 Tablet by mouth 2 times a day as needed for Agitation or Anxiety. 60 Tablet 2 03/22/2024 4 Discontinue d(Refill) documented as of this encounter (statuses as of 04/25/2024) Active Problems Problem Noted Date Diagnosed Date [...] as of this encounter (statuses as of 04/25/2024) Resolved Problems Problem Noted Date Diagnosed Date [...] as of this encounter (statuses as of 04/25/2024) Immunizations Name Administration Dates Next Due COVID-19 mRNA, LNP-s, No Pre serve, 2-Dose Series ([employer] [place]) 12/02/2020,10/28/2020 Pneumococcal Polysaccharide PPV23 (Pneumovax) Seasonal Influenza, [...] Nursing Notes * Cyndi Rose RN - 04/19/2024 1:59 PM EDT Goals: Patient will remain free from injury. Possible barriers to meeting goals: Fall risk d/t ambulation with IV pole. Stability of the patient: Moderately unstable - medium risk of patient condition declining or worsening Summary regarding today's goals: Met: Patient remained free of injury. Patient tolerated infusion well. Discharged in stable condition. * Cyndi Rose RN - 04/19/2024 1:08 PM EDT Chair 6. Patient arrived for [facility]. Patient was seen by OSVALDO Lane today (see office notes). Per Anuja norton for treatment today. PIV established. Chemotherapy/Immunotherapy agents: ZIRABEV Consent for chemotherapy drug treatment complete, dated, and signed? yes, date - 02/28/24 Treatment lab parameters met? Yes Has treatment weight changed > than 10%? No Treatment preauthorized? Yes VITALS Filed Vitals: Urine protein: NEGATIVE Patient education completed for treatment? Yes Blood transfusion consent signed and complete? NA Return appointment scheduled? Yes Patient had provider visit today? Yes - Ok to release order and treat per provider Functional Status: Functional status at today's visit: [...] potential pedraza while using the heat function. Safety and Risk for Injury Patient will remain free from injury. Ensure appropriate safety devices are available. Provide and maintain safe environment. documented in this encounter Plan of Treatment Upcoming Encounters Date Type Department Care Team (Late st Contact Info) Description 04/27/2024 3:45 PM EDT Pharmacy Pharmacy Hematology Oncology [facility] [address] [place] [address] [facility] Hem/Onc [address] [place] [address] 05/03/2024 11:00 AM EDT Laboratory Laboratory State Karina Alvarez [address] [place] [phone] Alannah Lab Scenery [address] [facility] [place] [address] 05/03/2024 12:00 PM EDT Hem/Onc Treatment Hematology/Oncology Treatment, [place] 200 [facility], [place] [phone] Alannah, Chair 6 Hem Onc [facility] 200 [facility] [place], [place] [address] 05/17/2024 11:00 AM EDT Laboratory Laboratory [facility] [address] [place], [place] [phone] Al[place], Lab [facility] 200 [facility] [place], [place] [address] 05/17/2024 11:30 AM EDT Office Visit Hematology/Oncology [facility] [address] [place], [place] [phone] Anuja Cortez CRNP [address] [facility] [place] [address] 05/17/2024 12:00 PM EDT Hem/Onc Treatment Hematology/Oncology Treatment, [place] [address] [facility], [place] [phone] Alannah, Chair 11 Hem Onc [address] [place], [place] [address] 05/17/2024 12:30 PM EDT Office Visit Palliative Medicine [facility] 200 [facility], [place] [phone] Keisha Tompkins [facility] [address] [facility] [place] [address] 05/23/2024 4:00 PM EDT Imaging Radiology [address], [place] 132 [facility] [place] [address] 05/31/2024 10:40 AM EDT Laboratory Laboratory [place] [address] [address] [place] [phone] Cristobal Jaffe [facility] 200 [facility] [place], [place] [address] 05/31/2024 11:15 AM EDT Office Visit Hematology/Oncology [facility] [place] 200 [facility] [place] [phone] Shay Song MD 200 [facility] [place] [address] 05/31/2024 11:45 AM EDT Hem/Onc Treatment [facility] [phone] 06/13/2024 11:00 AM EDT Office Visit Audiology [facility] [address] [place] [address] Gloria Oropeza Au.D. [address] [place] [address] 06/19/2024 11:15 AM EDT Telemedicine Neurosurgery, [place] [address] [place] [address] Clinic, Brain Tumor Multidisciplinary [address] [place] [address] 06/28/2024 9:50 AM EDT Office Visit [address] [phone] Luz Maria Gama DO [address] [place] [address] Scheduled Procedures Name Priority Associated Diagnoses Date/Ti [...] weight), IV Piggyback, ONCE, 1 dose, On Wed04/19/24 at 1415, Administer over 30 Minutes Start Infusion 04/19/2024 1:04 PM EDT 1,400 mg 210 mL/hr NSS infusion Intravenous, at 50 mL/hr, PRN, Starting on Wed04/19/24 at 1345, Until Wed04/19/24 at 1759, Maintenance line Start Infusion 04/19/2024 12:59 PM EDT 50 mL/hr documented in this encounter Advance Directives Documents on File Type Date Recorded Patient Interface Designer Expl anation Advance Directives and Living Will 02/25/2024 Candi Mulligan signed on 11/06/2023 ADVANCE DIRECTIVE / LIVING WILL COMBINED LIVING WILL & HEALTH CARE POWER OF LAMINATOR PRINTED CIRCUIT BOARDS POLST 12/03/2023 9:15 AM sign date 12/01/2023 [...] the patient have Health Care Power of Water[place] Traffic Checker? No * Full Code Date Activated Date [...] Care Agent (per Health Care Power of Waterway Traffic Checker document) [email or web address] Care Teams Automation Specialist Relationship Specialty Start Date End Date Luz Maria Gama DO [address] [place] [address] PCP - General Family Medicine 01/04/23 documented as of this encounter
--- OUTSIDE RECORDS SUMMARY | 2024-05-06 15:28 | External Medical Summary | Summary of Care ---
Author Name Unknown Organization [facility] Address [address] [facility] [place] [address] Phone [phone] Care Team Providers Care Mold Stamper Name Role Phone Luz Maria Gama Primary Care Provider [phone] Reason for Visit * Reason Onset Date Comments Medication Refill 05/01/2024 Encounter Details Date Type Department Care Team (Late st Contact Info) Description 05/01/2024 Refill Palliative Medicine [facility] [address] [place] [phone] Madhuri Tompkins MD [address] [place] [address] Cancer related pain Allergies No known active allergiesdocumented as of [...] opioid overdose. Seek medical help immediately. [email or web address] 1 mL 3 11/18/2023 Active Aspirin 81 [...] below 140/90,Ischemic cardiomyopathy,Coron christiane artery disease involving [place] coronary artery of [place] heart without angina pectoris,Dyslipidemi a, goal LDL [...] May 02, 2024. 56 Tablet 05/02/2024 Active Morphine Sulfate ER 60 MG Oral Tablet Extended Release (Ms Contin)Indications:C ancer related pain Take 1 Tablet by mouth in the morning and 1 Tablet before bedtime. 60 Tablet 04/05/2024 Discontinue d(Refill) documented as of this encounter [...] Miscellaneous Notes * Telephone Encounter - Madhuri Tompkins MD - 05/01/2024 9:59 AM EDT Signed Prescriptions: Disp Refills Morphine Sulfate ER 60 MG Oral Tablet Exte*56 Tab*0 Sig: Take 1 Tablet by mouth in the morning and 1 Tablet before bedtime. Do not start before May 02, 2024.Authorizing Provider: MADHURI TOMPKINS ------- * Telephone Encounter - Madhuri Tompkins MD - 05/01/2024 9:59 AM EDT Signed Prescriptions: Disp Refills Morphine Sulfate ER 60 MG Oral Tablet Exte*56 Tab*0 Sig: Take 1 Tablet by mouth in the morning and 1 Tablet before bedtime. Do not start before May 02, 2024.Authorizing Provider: MADHURI TOMPKINS ------- * Telephone Encounter - Madhuri Tompkins MD - 05/01/2024 9:58 AM EDT Changing to Tuesdays for pickup x 28 days * Telephone Encounter - Madhuri Tompkins MD - 05/01/2024 9:58 AM EDT Signed Prescriptions: Disp Refills Morphine Sulfate ER 60 MG Oral Tablet Exte*56 Tab*0 Sig: Take 1 Tablet by mouth in the morning and 1 Tablet before bedtime. Do not start before May 02, 2024. Authorizing Provider: MADHURI TOMPKINS * Telephone Encounter - Sandra Cisneros LPN - 05/01/2024 9:42 AM EDTPending Prescriptions: Disp Refills Morphine Sulfate ER 60 MG Oral Tablet Exte*60 Tab*0 Sig: Take 1 Tablet by mouth in the morning and 1 Tablet before bedtime. * Telephone Encounter - Sandra Cisneros LPN - 05/01/2024 9:08 AM EDTPending Prescriptions: Disp Refills Morphine Sulfate ER 60 MG Oral Tablet Exte*60 Tab*0 Sig: Take 1 Tablet by mouth in the morning and 1 Tablet before bedtime. * Telephone Encounter - Sandra Cisneros LPN - 05/01/2024 9:07 AM EDT See MyG of why requesting early * Telephone Encounter - Sandra Cisneros LPN - 05/01/2024 7:46 AM EDTPending Prescriptions: Disp Refills Morphine Sulfate ER 60 MG Oral Tablet Exte*60 Tab*0 Sig: Take 1 Tablet by mouth in the morning and 1 Tablet before bedtime. * Telephone Encounter - Sandra Cisneros LPN - 05/01/2024 7:45 AM EDT I have reviewed the patients controlled substance dispensing history in the Prescription Drug Monitoring Program in compliance with the [facility] regulations before prescribing a controlled substance. Were any discrepancies found:no Last prescribed 04/05 Last Filled 04/05 RX Due 05/05 documented in this encounter Plan of Treatment Upcoming Encounters Date Type Department Care Team (Late st [facility]) Description 05/03/2024 11:00 AM EDT Laboratory Laboratory [facility] [place] [address] [place], [place] [phone] Alannah, Lab Scenery [address] [place], [place] [address] 05/03/2024 12:00 PM EDT Hem/Onc Treatment Hematology/Oncology Treatment, [place] [address] [facility], [place] [phone] Alannah, Chair 6 Hem Onc [facility] [address] [place], [place] [address] 05/03/2024 3:30 PM EDT Pharmacy Pharmacy Hematology Oncology [address] [address] [facility] Hem/Onc [address] [place] [address] 05/17/2024 11:00 AM EDT Laboratory Laboratory [facility] [place] [address] [place] [phone] [place], Lab [facility] [address] [place], [place] [address] 05/17/2024 11:30 AM EDT Office Visit Hematology/Oncology [facility] [place] [address] [place] [phone] Anuja Cortez, OSVALDO [address] [place] [address] 05/17/2024 12:00 PM EDT Hem/Onc Treatment Hematology/Oncology Treatment, [address], [place] [phone] Alannah, Chair 11 Hem Onc [facility] [address] [place], [place] [address] 05/17/2024 12:30 PM EDT Office Visit Palliative Medicine [facility] [place] [address] [facility] [phone] Madhuri Tompkins MD [address] [place] [address] [place] [address] 05/23/2024 4:00 PM EDT Imaging Radiology [address] 132 [facility] [place] [address] 05/31/2024 10:40 AM EDT Laboratory Laboratory [facility] [address] [place] [phone] [facility] 200 [facility] [place] [address] 05/31/2024 11:15 AM EDT Office Visit Hematology/Oncology [facility] [address] [place] [phone] Shay Song MD [address] [place] [address] 05/31/2024 11:45 AM EDT Hem[facility] [address] [facility] [address] [place] [phone] 06/13/2024 11:00 AM EDT Office Visit Audiology [facility] 132 [facility] [place] [address] Gloria Oropeza AuLibby 132 [facility] [place] [address] 06/19/2024 11:15 AM EDT Telemedicine Neurosurgery, [place] [address] [facility] [address] Clinic, Brain Tumor Multidisciplinary [address] [facility] [address] 06/28/2024 9:50 AM EDT [address] [phone] Luz Maria Gama, DO [address] [place] [address] Scheduled Procedures Name Priority Associated Diagnoses Date/Ti [...] as of this encounter Visit Diagnoses Diagnosis Cancer related pain Neoplasm related pain (acute) (chronic) documented in this encounter Advance Directives Documents on File Type Date Recorded Patient Waste Minimization Technician Expl anation Advance Directives and Living Will 02/25/2024 Candi Mulligan signed on 11/06/2023 ADVANCE DIRECTIVE / LIVING WILL COMBINED LIVING WILL & HEALTH CARE POWER OF HOUSING GRANT ANALYST POLST 12/03/2023 9:15 AM sign date 12/01/2023 [...] the patient have Health Care Power of Parts Sales Associate? No * Full Code Date Activated Date [...] Care Agent (per Health Care Power of Parts Sales Associate document) Care Teams Mold Stamper Relationship Specialty Start Date End Date Luz Maria Gama DO [address] [facility] [place] [address] PCP - General Family Medicine 01/04/23 documented as of this encounter
--- OUTSIDE RECORDS SUMMARY | 2024-05-06 15:28 | External Medical Summary | Summary of Care ---
Author Name Unknown Organization [facility] Address [address] [place] [address] Phone [phone] Care Team Providers Care Ethanol Operator Name Role Phone Luz Maria Gama Primary Care Provider [phone] Reason for Visit * Reason Comments Chemotherapy C1/D1 - Zirabev * Episode Based Medications (Routine) - Authorized Specialty Diagnoses / Procedures Referred By Jerel t Referred To Contact Diagnoses Glioblastoma (HCC) Procedures ND INJ., ZIRABEV, 10 MG Palak Cast MD [address] [place] [address] Anc Hem/Onc [facility] [place] [address] [place] [phone] Referral ID Status Reason Start Date Expiration Date V isits Requested Visits Authorized [id number] Authorized 02/28/2024 09/19/[phone] Encounter Details Date Type Department Care Team (Latest Contact Info) Description 03/22/2024 12:00 PM EDT Hem/Onc Treatment Hematology/Oncolog y Treatment, [address] [place] [address] Alannah, Chair 1 Hem [address] [address] Glioblastoma (HCC)*; Encounter for antineoplastic [...] suspected opioid overdose. Seek medical help immediately. [email or web address] 1 mL 3 4 Active Aspirin 81 [...] below 140/90,Ischemic cardiomyopathy,Cor onary artery disease involving [place] coronary artery of [place] heart without angina pectoris,Dyslipide kavon, goal LDL [...] suspected opioid overdose. Seek immediate medical attention. [email or web address] 1 Each 3 4 04/05/20 24 [...] 3:45 PM EDT Pharmacy Pharmacy Hematology Oncology [address] [address] [facility] Hem/Onc [facility] [place] [address] 05/03/2024 11:00 AM EDT Laboratory Laboratory [facility] [place] [address] [place] [phone] Alannah, Lab Scenery [address] [facility] [place] [address] 05/03/2024 12:00 PM EDT Hem/Onc Treatment Hematology/Oncology Treatment, [place] [address] [place] [phone] Alannah, Chair 6 Hem Onc [address] [place] [address] 05/17/2024 11:00 AM EDT Laboratory Laboratory [facility] [place] [address] [place] [phone] Alannah, Lab Scenery [address] [place] [address] 05/17/2024 11:30 AM EDT Office Visit Hematology/Oncology [facility] [address] [place], [place] [phone] Anuja Cortez CRNP [address] [place] [address] 05/17/2024 12:00 PM EDT Hem[facility] 200 [facility], [place] [phone] Alannah, Chair 11 Hem Onc [facility] 200 [facility] [place], [place] [address] 05/17/2024 12:30 PM EDT Office Visit Palliative Medicine [facility] [address], [place] [phone] Keisha Tompkins MD [address] [place] [address] 05/23/2024 4:00 PM EDT Imaging Radiology [address], [place] 132 [facility] [place] [address] 05/31/2024 10:40 AM EDT Laboratory Laboratory [facility] [place] [address] [place], [place] [phone] Al[place], Lab [facility] [address] [facility] [place] [place] [address] 05/31/2024 11:15 AM EDT Office Visit Hematology/Oncology [facility] [place] [address] [place] [phone] Shay Song MD [address] [place] [address] 05/31/2024 11:45 AM EDT Hem/Onc Treatment Hematology/Oncology Treatment, [place] [facility] [phone] 06/13/2024 11:00 AM EDT Office Visit Audiology [facility] [address] [place] [address] Gloria Oropeza Au.D. [address] [place] [address] 06/19/2024 11:15 AM EDT Telemedicine Neurosurgery, [place] [address] [place] [address] Clinic, Brain Tumor Multidisciplinary [address] [place] [address] 06/28/2024 9:50 AM EDT Office Visit [facility] [address] [place] [phone] Luz Maria Gama DO [address] [place] [address] Scheduled Procedures Name Priority Associated Diagnoses Date/Ti [...] Documents on File Type Date Recorded Patient Jigsawyer Expl anation Advance Directives and Living Will 02/25/2024 Candi Mulligan signed on 11/06/2023 ADVANCE DIRECTIVE / LIVING WILL COMBINED LIVING WILL & HEALTH CARE POWER OF PSYCH COORDINATOR POLST 12/03/2023 9:15 AM sign date 12/01/2023 [...] the patient have Health Care Power of Records And Information Manager? No * Full Code Date Activated Date [...] Care Agent (per Health Care Power of Records And Information Manager document) [email or web address] Care Teams Ethanol Operator Relationship Specialty Start Date End Date Luz Maria Gama DO [address] [place] [address] PCP - General Family Medicine 01/04/23 documented as of this encounter
--- OUTSIDE RECORDS SUMMARY | 2024-05-06 15:29 | External Medical Summary | Summary of Care ---
Author Name Unknown Organization [facility] Address [address] [facility] [address] Phone [phone] Care Team Providers Care Environmental Conservation Professor Name Role Phone Luz Maria Gama Primary Care Provider Reason for Visit * Reason Onset Date Comments Appointment 04/24/2024 Encounter Details Date Type Department Care Team (Late st Contact Info) Description 04/24/2024 Telephone Hematology/Oncology Treatment, [place] [address] [place] [phone] Shay Song MD [address] [place] [address] Appointment Allergies No known active allergiesdocumented as of this encounter (statuses as of 04/24/2024) Medications Medication Sig Dispensed Refills Start Date [...] opioid overdose. Seek medical help immediately. [email or web address] 1 mL 3 11/18/2023 Active Aspirin 81 [...] below 140/90,Ischemic cardiomyopathy,Beltrán ry artery disease involving solomon coronary artery of solomon heart without angina pectoris,Dyslipidemia , goal LDL [...] before bedtime. 90 Tablet 2 04/19/2024 Active documented as of this encounter (statuses as of 04/24/2024) Active Problems Problem Noted Date Diagnosed Date [...] as of this encounter (statuses as of 04/24/2024) Resolved Problems Problem Noted Date Diagnosed Date [...] as of this encounter (statuses as of 04/24/2024) Immunizations Name Administration Dates Next Due COVID-19 mRNA, LNP-s, No Pre serve, 2-Dose Series (enGene) 12/02/2020,10/28/2020 Pneumococcal Polysaccharide PPV23 (Pneumovax) Seasonal Influenza, [...] encounter Miscellaneous Notes * Telephone Encounter - Martha Spencer RN - 04/24/2024 1:29 PM EDT Received message from Anuja- patient/ SO, if no follow up have asked Dr Song to see them in thetreatment room twice. Patient should have follow up with provider with each treatment if possible. 05/03/24- no opening with provider. 05/17/24- Scheduling: please add follow up appt with Anuja between labs/ treatment. Looks like she already has opening at that time (11:30am). Thanks! documented in this encounter Plan of Treatment Upcoming Encounters Date Type Department Care Team (Late st Contact Info) Description 04/24/2024 3:45 PM EDT Pharmacy Pharmacy Hematology Oncology [place] [address] [place] [address] [facility] [place] Hem/Onc [facility] [place] [address] 05/03/2024 11:00 AM EDT Laboratory Laboratory [facility] [place] [address] [place] [phone] [place], Lab Scenery [address] [facility] [place] [address] 05/03/2024 12:00 PM EDT Hem/Onc Treatment Hematology/Oncology Treatment, [place] [address] [place] [phone] Alannah, Chair 6 Hem Onc [address] [place] [address] 05/17/2024 11:00 AM EDT Laboratory Laboratory [facility] [place] [address] [place], [place] [phone] Alannah, Lab Scenery [address] [place], [place] [address] 05/17/2024 12:00 PM EDT [facility] [address] [facility], [place] [address] Alannah, Chair 11 Hem Onc [facility] [address] [place] [address] 05/17/2024 12:30 PM EDT Office Visit Palliative Medicine [facility] [place] [address] [facility], [place] [phone] Keisha Tompkins MD [address] [place], [place] [address] [address] 05/23/2024 4:00 PM EDT Imaging Radiology [address], [place] [address] [facility] [place] [address] 05/31/2024 10:40 AM EDT Laboratory Laboratory [facility] [place] [address] [place], [place] [phone] Alannah, Lab Scenery [address] [place], [place] [address] 05/31/2024 11:15 AM EDT Office Visit Hematology/Oncology [facility] [place] [address] [place], [place] [phone] Shay Song MD [address] [place] [address] 05/31/2024 11:45 AM EDT Hem/Onc Treatment Hematology/Oncology Treatment, [place] [address] [facility] [address] [place] [phone] 06/13/2024 11:00 AM EDT Office Visit Audiology [facility] [address] [place] [address] Gloria Oropeza Au.D. [address] [place] [address] 06/19/2024 11:15 AM EDT Telemedicine Neurosurgery, [place] [address] [place] [address] Clinic, Brain Tumor Multidisciplinary [address] [place] [address] 06/28/2024 9:50 AM EDT Office Visit [facility] [address] [place] [phone] Luz Maria Gama DO [address] [place] [address] Scheduled Procedures Name Priority Associated Diagnoses Date/Ti [...] Documents on File Type Date Recorded Patient Sorter/Assay Tech Expl anation Advance Directives and Living Will 02/25/2024 Candi Mulligan signed on 11/06/2023 ADVANCE DIRECTIVE / LIVING WILL COMBINED LIVING WILL & HEALTH CARE POWER OF STEM DRYER MAINTAINER POLST 12/03/2023 9:15 AM sign date 12/01/2023 [...] the patient have Health Care Power of Transfer Iron Operator? No * Full Code Date Activated [...] Care Agent (per Health Care Power of Transfer Iron Operator document) Care Teams Environmental Conservation Professor Relationship Specialty Start Date End Date Luz Maria Gama DO [address] [facility] [place] [id number] PCP - General Family Medicine 01/04/23 documented as of this encounter
--- OUTSIDE RECORDS SUMMARY | 2024-05-06 15:29 | External Medical Summary | Summary of Care ---
Author Name Unknown Organization [facility] Address [address] [address] Phone [phone] Care Team Providers Care Technical Services Rep Name Role Phone Luz Maria Gama Primary Care Provider [phone] Reason for Visit * Reason Comments Follow Up Treatment Encounter Details Date Type Department Care Team (Late st Contact Info) Description 04/19/2024 12:00 PM EDT Office Visit [facility] [place] [address] [facility] [place] [phone] Anuja Cortez, [facility] [address] [facility] [address] Gli[facility] (HCC)* Allergies No known active allergiesdocumented as of this encounter (statuses as of 04/20/2024) Medications Medication Sig Dispensed Refills Start Date [...] suspected opioid overdose. Seek medical help immediately. [email or web address] k 1 mL 3 4 Active Aspirin 81 [...] below 140/90,Ischemic cardiomyopathy,Cor onary artery disease involving [place] coronary artery of [place] heart without angina pectoris,Dyslipide kavon, goal LDL [...] the morning. 60 Capsule 5 4 Active Morphine Sulfate ER 60 MG Oral Tablet Extended Release (Ms Contin)Indications :Cancer related pain Take 1 Tablet by mouth in the morning and 1 Tablet before bedtime. 60 Tablet 4 Active Morphine Sulfate 30 MG Oral Tablet (Msir)Indications: Cancer related pain Take 1 Tablet by mouth every 4 hours as needed for Pain, Severe. Continued script 84 Tablet 4 Active Doxycycline Monohydrate 50 MG Oral CapsuleIndications :Rosacea Take 1 capsule by mouth once daily 90 Capsule 1 4 Active buPROPion HCl ER (SR) 150 MG Oral Tablet Extended Release 12 Hour (Wellbutrin SR)Indications:Adj ustment disorder with depressed mood Take 1 tablet by mouth twice per day 180 Tablet 1 4 Active dexAMETHasone 2 MG Oral Tablet (Decadron)Indicati ons:Glioblastoma (HCC) Take 1 Tablet by mouth 2 times a day with morning and evening meals. 60 Tablet 1 4 Active Omeprazole 40 MG Oral Capsule Delayed Release (PriLOSEC) Take 1 Capsule by mouth in the morning. 4 04/19/20 24 Discontinued(Med ication List Clean Up) dexAMETHasone 4 MG Oral Tablet (Decadron) Take 1 Tablet by mouth 2 times a day with morning and evening meals. 4 04/19/20 24 Discontinued Lomustine 40 MG Oral Capsule (Ceenu)Indications :Glioblastoma (HCC) Take 4 Capsules by mouth every 6 weeks. Take on an empty stomach at bedtime 4 Capsule 4 04/19/20 24 Discontinued(Ref ill) busPIRone HCl 10 MG Oral Tablet (Buspar)Indication s:Anxiety state Take 1 Tablet by mouth 2 times a day as needed for Agitation or Anxiety. 60 Tablet 2 4 04/19/20 24 Discontinued(Ref ill) Lomustine 40 MG Oral Capsule (Ceenu) Take 4 Capsules by mouth every 6 weeks. Take on an empty stomach at bedtime 4 Capsule 4 04/20/20 24 Discontinued(Med ication List Clean Up) documented as of this encounter (statuses as of 04/20/2024) Active Problems Problem Noted Date Diagnosed Date [...] as of this encounter (statuses as of 04/20/2024) Resolved Problems Problem Noted Date Diagnosed Date [...] as of this encounter (statuses as of 04/20/2024) Immunizations Name Administration Dates Next Due COVID-19 mRNA, LNP-s, No Pre serve, 2-Dose Series ([employer]) 12/02/2020,10/28/2020 Pneumococcal Polysaccharide PPV23 (Pneumovax) Seasonal Influenza, [...] Sign Reading Time Taken Comments Blood Pressure 161/89 04/19/2024 11:47 AM EDT Pulse 57 04/19/2024 11:47 AM EDT Temperature 36.3 C (97.4 F) 04/19/2024 11:47 AM E DT Respiratory Rate - - Oxygen Saturation 98% 04/19/2024 11:47 AM EDT Inhaled Oxygen Concentration - - Weight 143.8 kg (317 lb) 04/19/2024 11:47 AM EDT Height - - Body Mass Index 40.7 11/05/2023 10:12 PM EST documented in this [...] as of this encounter Progress Notes * Anuja Cortez CRNP - 04/19/2024 11:43 AM EDT Hematology/Oncology Outpatient Clinic Note Name: Remy Lujan Date: 04/19/2024 Remy Lujan is a 58 year old male patient of Dr. Shay Song here today for appointment prior to treatment. From Patient chart confirmed history with patient and sister. From Dr. 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 CURRENT TREATMENT: - planning for CCNU (Lomustine)at 90 mg/m every 6 weekly and bevacizumab 10 mg/kg every 2 weekly. PREVIOUS TREATMENT: -Combined chemotherapy with oral temozolomide and radiation treatment in early January 2024. He would radiation treatment at [facility]. DIAGNOSTIC WORKUP: Earlier in late August 2023, he could not read quite well, had some increasing headache, increasing fatigue, he had a brain MRI which showed large left temporal occipital mass as follows: Brain MRI on 11/05/2023: -heterogeneously mass centered at the left temporal-occipital junction, with enhancing portions measuring approximately 6.1 x 3.5 x 3.4 cm. He was then seen at [facility], S/p Subtotal resection, 11/10/2023 Pathology from the left temporal mass--> WHO grade 4 glioblastoma. IDH wild type. NGS checkup: -TMB 5.6 -low, MSI stable -EGFR amplification--> positive. 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 Brain MRI on 11/11/2023: 1. Expected postoperative changes following left temporal lobe tumor resection with mild residual tumor involving the resection cavity margins, multicentric left parietal enhancement/satellite lesions, and subependymal tumor spread. 2. Stable incidental small right frontal convexity meningioma. He completed temozolomide every day along with radiation treatment in early January 2024. OTHER IMPORTANT HISTORY: - hypertension -sleep apnea, on CPAP -history of coronary artery disease, S/P stent placement 2014. No active cardiac symptoms - he is on Keppra prophylaxis. -rosacea, on doxycycline INTERVAL HISTORY: Has finished C2 Zirabev and has taken Lomustine once. HISTORY OF PRESENT ILLNESS: Remy Lujan is a 58 year old male with a history as outlined above. Currently here for f/u visit today. Remy is here today prior to C3 Zirabev. He is due to take Lomustine. His caregiver today does notthink that he has done that or even has it. We will get that ordered. She feels like he is speaking well and is less confused. No seizures but is on Keppra. No falls. No neuropathy noted. No fever or chills. Tolerating Zirabev well. No N/V/D. Denies chest pain or shortness of breath. He is using [employer] Rx. The bandages are applied and it is going well. Past Medical History: Diagnosis Date Bradycardia, sinus CAD (coronary artery disease) CxOM3 BMS 08/16/15 HTN, goal below 140/80 Hx of tobacco use, presenting hazards to health Past Surgical History: Procedure Laterality Date COLONOSCOPY, DIAGNOSTIC (RECTUM) N/A 09/01/2016 normal biopsy/recall 10 years/COLONOSCOPY FLEXIBLE PROXIMAL DIAGNOSTIC performed by Dominik Herrera MD at OR [facility] CORONARY ANGIOGRAPHY W/LEFT HEART CATH Right 08/16/2015 CORONARY ANGIOGRAPHY W/LEFT HEART CATH performed by Joel Brambila MD at [facility] MICROSURGERY ADD-ON Left 11/10/2023 MICROSURGICAL SURGERY REQUIRING MICROSCOPE LISTED SEPARATELY performed by Matteo Ornelas III, MD at [facility] REMOVE SUPRATENTORIAL BRAIN TUMOR Left 11/10/2023 CRANIOTOMY BONE FLAP EXCISION BRAIN TUMOR SUPRATENTORIAL performed by Matteo Ornelas III, MDat OR [facility] REMOVE TONSILS & ADENOIDS, UNDER 12 STEREOTACTIC CRANIAL INTRADURAL NAVIGATION Left 11/10/2023 STEREOTACTIC CRANIAL INTRADURAL NAVIGATION performed by Matteo Ornelas III, MD at OR [facility] Social History Socioeconomic History Marital status: Spouse name: Janeth Number of children: 2 Years of education: 14 Highest education level: Not on file Occupational History Occupation: [employer] Employer: [employer] Tobacco Use Smoking status: Former Current packs/day: 0.00 Average packs/day: 1.5 packs/day for 15.0 years (22.5 ttl pk-yrs) Types: Cigarettes Start date: 08/16/2000 Quit date: 08/16/2015 Years since quittin.6 Passive exposure: Never Smokeless tobacco: Former Types: Snuff Tobacco comments: smokes cigar occas Vaping Use Vaping status: Never Used Substance and Sexual Activity Alcohol use: Yes Comment: weekly Drug use: No Sexual activity: Yes Partners: Female Other Topics Concern Not on file Social History Narrative Household: Lives w/ and 1 natural son (5) and 's son (2). Exercise: Other: Social Determinants of Health Financial Resource Strain: Low Risk (02/01/2024) Financial Resource Strain Do you have any trouble paying for your medications, or do you think you might in the future? (Adult - for ages 18 years and over): No Does your family have trouble paying for medicine? (Household - for ages 0-17 years): Not on file Food Insecurity: Food Insecurity Present (02/01/2024) Food Insecurity Do you need food for this week? (Adult - for ages 18 years and over): Yes Are you able to get enough food for your family? (Household - for ages 0-17 years): Not on file Does your family need food this week? (Household - for ages 0-17 years): Not on file Do you always have enough food for your family? (Household - for ages 0-17 years): Not on file Transportation Needs: Unmet Transportation Needs (02/01/2024) Transportation Needs Do you have trouble getting a ride to medical visits or work? (Adult - for ages 18 years and over):Sometimes True Does your family have a hard time getting a ride to doctors visits? (Household - for ages 0-17 years): Not on file Has lack of transportation kept you from medical appointments, meetings, work, or from getting things needed for daily living? Check all that apply. (Adult - for ages 18 years and over): Not on file Do you (or your family) have trouble finding or paying for a ride (transportation)? (Household - for ages 0-17 years): Not on file Social Connections: Socially Integrated (02/01/2024) Social Connections How often do you feel lonely or isolated from those around you? (Adult - for ages 18 years and over): Sometimes Housing Stability: Low Risk (02/01/2024) Housing Stability Do you currently live in a jail or have no steady place to sleep at night? (Adult - for ages 18 years and over): No Do you think you are at risk of becoming homeless? (Adult - for ages 18 years and over): No Does your family worry about paying for your home or becoming homeless? (Household - for ages 0-17 years): Not on file Are you homeless or worried that you might be in the future? (Adult - for ages 18 years and over): Not on file Are you (or your family) homeless or worried that you might be in the future? (Household - for ages0-17 years): Not on file Review of patient's allergies indicates: No Known Allergies Current Outpatient Medications Medication Sig Dispense Refill nitroglycerin (NITROSTAT) 0.[address] 1 Tab under the tongue every 5 minutes as needed for Pain, Chest. 90 Tab 12 Lisinopril 20 MG Oral Tablet (Prinivil) Take 1 Tablet by mouth in the morning. 90 Tablet 3 CPAP every night at bedtime. Naloxone HCl 0.4 MG/ML Injection Solution (Narcan) Inject 1mL into a large muscle for suspected opioid overdose. Seek medical help immediately. [email or web address] 1 mL 3 Omeprazole 40 MG Oral Capsule Delayed Release (PriLOSEC) Take 1 Capsule by mouth in the morning. dexAMETHasone 4 MG Oral Tablet (Decadron) Take 1 Tablet by mouth 2 times a day with morning and evening meals. (Patient not taking: Reported on 03/03/2024) Aspirin 81 MG Oral Tablet Chewable Take 1 Tablet by mouth in the morning. 30 Tablet 11 Polyethylene Glycol 3350 17 GM Oral Packet (Miralax) Take 1 Packet by mouth in the morning. 30 Each0 Sennosides 8.6 MG Oral Tablet (Senokot) Take 2 Tablets by mouth at bedtime. 60 Tablet 0 levETIRAcetam 500 MG Oral Tablet (Keppra) Take 1 Tablet by mouth in the morning and 1 Tablet beforebedtime. 60 Tablet 2 Metoprolol Succinate ER 25 MG Oral Tablet Extended Release 24 Hour (toPROL XL) Take 1 Tablet by mouth in the morning. 90 Tablet 1 Ondansetron HCl 8 MG Oral Tablet (Zofran) Take 1 tablet by mouth 30 minutes prior to lomustine and every 8 hours as needed for nausea. Do not exceed 3 tablets per 24 hours. 60 Tablet 1 Lomustine 40 MG Oral Capsule (Ceenu) Take 4 Capsules by mouth every 6 weeks. Take on an empty stomach at bedtime 4 Capsule 0 Omeprazole 20 MG Oral Capsule Delayed Release (PriLOSEC) Take 2 Capsules by mouth in the morning. 60 Capsule 5 busPIRone HCl 10 MG Oral Tablet (Buspar) Take 1 Tablet by mouth 2 times a day as needed for Agitation or Anxiety. 60 Tablet 2 Morphine Sulfate ER 60 MG Oral Tablet Extended Release (Ms Contin) Take 1 Tablet by mouth in the morning and 1 Tablet before bedtime. 60 Tablet 0 Morphine Sulfate 30 MG Oral Tablet (Msir) Take 1 Tablet by mouth every 4 hours as needed for Pain, Severe. Continued script 84 Tablet 0 Doxycycline Monohydrate 50 MG Oral Capsule Take 1 capsule by mouth once daily 90 Capsule 1 buPROPion HCl ER (SR) 150 MG Oral Tablet Extended Release 12 Hour (Wellbutrin SR) Take 1 tablet by mouth twice per day 180 Tablet 1 dexAMETHasone 2 MG Oral Tablet (Decadron) Take 1 Tablet by mouth 2 times a day with morning and evening meals. 60 Tablet 1 No current facility-administered medications for this visit. REVIEW OF SYSTEMS: See HPI - otherwise negative OBJECTIVE: Filed Vitals: 04/19/24 1147 BP: 161/89 Pulse: 57 Temp: 36.3 C (97.4 F) TempSrc: Tympanic SpO2: 98% Weight: (!) 143.8 kg (317 lb) Repeat 154/80 PHYSICAL EXAM: ECOG: Performance Status 1 = 80-90% Symptoms but nearly ambulatory General Appearance: Normal - Healthy appearing patient in no acute distress HEENT: Normal - No oral or pharyngeal masses, ulceration or thrush noted, no sinus tenderness Lymph Nodes: Normal - No palpable lymph nodes in the neck or supraclavicular areas Lungs/Thorax: Normal - Clear to auscultation Heart: Normal - Regular rate and rhythm, normal S1, S2, no appreciable murmurs, rubs, gallops Pulses/Extremities: Normal - 2+ throughout and symmetrical, no edema Abdomen: Normal - Soft, nontender, bowel sounds present, no appreciable hepatosplenomegaly, no palpable masses Musculoskeletal: Normal - No pain on palpation over bony prominence, no joint or bony deformity Neurologic: alert to name, does not hear well or answer questions timely Optune applied LABS: Results for orders placed or performed in visit on 04/05/24 COMPREHENSIVE METABOLIC PANEL Result Value Ref Range BUN 20 6 - 20 mg/dL Creatinine 0.9 0.6 - 1.2 mg/dL Estimated Glomerular Filtration Rate >90 >=60 mL/min Sodium 138 135 - 146 mmol/L Potassium 4.0 3.5 - 5.1 mmol/L Chloride 103 98 - 107 mmol/L CO2 23 22 - 32 mmol/L Anion Gap 12 7 - 15 mmol/L Glucose 145 (H) 70 - 120 mg/dL Albumin 3.9 3.8 - 5.0 g/dL AST 18 10 - 50 U/L Alkaline Phosphatase 76 35 - 130 U/L Bilirubin, Total 0.3 <=1.2 mg/dL Calcium 9.3 8.4 - 10.2 mg/dL Protein 6.1 6.0 - 8.3 g/dL ALT 43 10 - 50 U/L CBC Result Value Ref Range WBC 8.58 4.00 - 10.80 K/uL RBC 4.36 4.50 - 5.25 M/uL HGB 13.5 (L) 14.0 - 16.8 g/dL HCT 41.2 40.0 - 48.4 % MCV 94.5 82.0 - 99.5 fL MCH 31.0 27.0 - 34.0 pg MCHC 32.8 32.0 - 36.0 g/dL RDW 14.7 11.5 - 15.5 % PLT 239 140 - 400 K/uL MPV 9.1 6.6 - 11.1 fL DIFFERENTIAL, AUTOMATED Result Value Ref Range WBC 8.58 4.00 - 10.80 K/uL Neutrophils % 79.8 (H) 40.0 - 75.0 % Lymphocytes % 11.9 (L) 18.0 - 42.0 % Monocytes % 8.0 1.0 - 11.0 % Eosinophils % 0.1 0.0 - 6.0 % Basophils % 0.2 0.0 - 2.0 % Absolute Neutrophils 6.84 1.80 - 7.70 K/uL Absolute Lymphocytes 1.02 1.00 - 4.80 K/ul Absolute Monocytes 0.69 0.00 - 1.10 K/uL Absolute Eosinophils 0.01 0.00 - 0.70 K/uL Absolute Basophils 0.02 0.00 - 0.20 K/uL URINALYSIS, REFLEX TO MICROSCOPIC Result Value Ref Range Color, Urine Yellow Light Yellow, Yellow, Dark Yellow Clarity, Urine Clear Clear Glucose, Urine Negative Negative mg/dL Bilirubin, Urine Negative Negative Ketone, Urine Negative Negative mg/dL Specific [place], Urine 1.015 1.003 - 1.030 Blood, Urine Negative Negative pH, Urine 6.0 5.0 - 7.5 Units Protein, Urine Negative Negative mg/dL Urobilinogen, Urine 0.2 0.2, 1.0 mg/dL Nitrite, Urine Negative Negative Esterase, Urine Negative Negative Comment, Urine DIFFERENTIAL, TECHNOLOGIST REVIEW Result Value Ref Range nRBCs MRI BRAIN W WO CONTRAST Result Date: 02/22/2024 IMPRESSION Progressive disease with increase in solid enhancing tumor within the left parietal and temporal lobes with associated increased cerebral perfusion and progressive confluent hyperintense T2 FLAIR signal. MRI NEURO 3-D RECONSTRUCTION Result Date: 02/22/2024 IMPRESSION Progressive disease with increase in solid enhancing tumor within the left parietal and temporal lobes with associated increased cerebral perfusion and progressive confluent hyperintense T2 FLAIR signal. MRI BRAIN W WO CONTRAST Result Date: 11/11/2023 IMPRESSION 1. Expected postoperative changes following left temporal lobe tumor resection with mildresidual tumor involving the resection cavity margins, multicentric left parietal enhancement/satellite lesions, and subependymal tumor spread. 2. Stable incidental small right frontal convexity meningioma. MRI NEURO 3-D RECONSTRUCTION Result Date: 11/11/2023 IMPRESSION 1. Expected postoperative changes following left temporal lobe tumor resection with mildresidual tumor involving the resection cavity margins, multicentric left parietal enhancement/satellite lesions, and subependymal tumor spread. 2. Stable incidental small right frontal convexity meningioma. MRI BRAIN WITHOUT CONTRAST Result Date: 11/07/2023 IMPRESSION Localizing exam demonstrating large mass in the left temporoparietal junction, 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. MRI NEURO 3-D RECONSTRUCTION Result Date: 11/07/2023 IMPRESSION Localizing exam demonstrating large mass in the left temporoparietal junction, 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. CT CHEST/ABDOMEN/PELVIS WITH IV CONTRAST WITHOUT ORAL CONTRAST Result Date: 11/06/2023 IMPRESSION No evidence malignancy or metastases in the chest, abdomen, or pelvis. MRI BRAIN W WO CONTRAST Result Date: 11/05/2023 IMPRESSION Findings concerning for high-grade MEDICATION NURSE tumor centered in the left temporal-occipital junction, probably glioblastoma. Please see details above. Critical results were communicated via secure text messaging to Dr Luz Maria Gama at 0210. ASSESSMENT AND PLAN: 58-year-old male, A case of GBM involving the left temporo-occipital region,(10/2023) NGS checkup: -TMB 5.6-->low, MSI stable -EGFR amplification--> positive. 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 -Completed dated temozolomide and radiation treatment in early January 2024, follow- up imaging study within 1 month showed progression of the disease. - Currently getting bevacizumab every 2 weeks-tolerating well. Lomustine to start next week -Using [employer]field Rx. -Continue Decadron 2 mg po BID -He will continue to f/up with palliative care . He on on MS Contin 30 mg q 12 h and morphine IR for breakthrough. -MRI due in early May -F/U Dr. 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 Yes. Patient instructed to discuss pain concerns with provider during the visit today Living Will or Advance Directive for Health Care as noted on the problem list. [facility] is a way you can talk to your provider on line through e-mail. Would you like to sign up? I can activate it for you? ALREADY ACTIVE Filed Vitals: 04/19/24 1147 BP: 161/89 Pulse: 57 Temp: 36.3 C (97.4 F) TempSrc: Tympanic SpO2: 98% Weight: (!) 143.8 kg (317 lb) Patient was instructed to not get up on the exam table/exam chair until directed and assisted by their provider; patient is to remain seated in the chair/ wheelchair/ exam table/ exam chair for fall prevention and safety reasons. Patient is aware to have assistance to step down off exam table/exam chair with personnel. Patient voiced full comprehension of instructions. documented in this encounter Plan of Treatment Upcoming Encounters Date Type Department Care Team (Late st Contact Info) Description 04/24/2024 3:45 PM EDT Pharmacy Pharmacy Hematology Oncology [address] [address] [facility] [place] Hem/Onc [facility] [place] [address] 05/03/2024 11:00 AM EDT Laboratory Laboratory [facility] [place] [address] [place] [phone] [place], Lab Scenery [address] [facility] [place], [place] [address] 05/03/2024 12:00 PM EDT Hem/Onc Treatment Hematology/Oncology Treatment, [place] [address] [facility] [place], [place] [phone] [place], Chair 6 Hem Onc Scenery [address] [place] [address] 05/17/2024 11:00 AM EDT Laboratory Laboratory [facility] [place] [address] [place] [address] [place], Lab Scenery [address] [facility] [place] [address] 05/17/2024 12:00 PM EDT Hem/Onc Treatment Hematology/Oncology Treatment, [place] [address] [facility] [place] [address] [place], Chair 11 Hem Onc Sc[address]ery [address] [place] [address] 05/17/2024 1:00 PM EDT Office Visit Palliative Medicine [facility] [phone] Keisha Tompkins MD [address] [place] [address] [place] [address] 05/23/2024 4:00 PM EDT Imaging Radiology [facility] [address] [facility] [address] [facility] [place] [address] 05/31/2024 10:40 AM EDT Laboratory Laboratory [facility] [address] [place] [phone] [place] [address] 05/31/2024 11:15 AM EDT Office Visit Hematology/Oncology [facility] [address] [place] [phone] Shay Song MD 200 [place] [address] 05/31/2024 11:45 AM EDT Hem/Onc Treatment Hematology/Oncology Treatment, [place] [address] [facility], [place] [phone] 06/13/2024 11:00 AM EDT Office Visit Audiology [facility] [address] [facility] [place] [address] Gloria Oropeza Au.D. 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 No * Full Code Date Activated Date [...] Care Agent (per Health Care Power of Sampler Radioactive Waste document) [email or web address] Care Teams Technical Services Rep Relationship Specialty Start Date End Date Luz Maria Gama DO [address] [facility] [place] [address] PCP - General Family Medicine 01/04/23 documented as of this encounter
--- OUTSIDE RECORDS SUMMARY | 2024-05-06 15:29 | External Medical Summary | Summary of Care ---
Author Name Unknown Organization [facility] Address [address] [facility] [address] Phone [phone] Care Team Providers Care Charter Representative Name Role Phone Luz Maria Gama Primary Care Provider + [phone] Reason for Visit * Reason Comments Outpatient Testing Encounter Details Date Type Department Care Team (Late st Contact Info) Description 04/19/2024 11:30 AM EDT Laboratory Laboratory Scenery [place] [address] [place] [phone] [place], Lab Scenery [address] [place] [address] Glioblastoma (HCC) Allergies No known active allergiesdocumented as of this encounter (statuses as of 04/19/2024) Medications Medication Sig Dispensed Refills Start Date [...] opioid overdose. Seek medical help immediately. http://[email or web address] 1 mL 3 11/18/2023 Active Omeprazole 40 MG Oral Capsule Delayed Release (PriLOSEC) Take 1 Capsule by mouth in the morning. 12/27/2023 Active dexAMETHasone 4 MG Oral Tablet (Decadron) Take 1 Tablet by mouth 2 times a day with morning and evening meals. 12/27/2023 Active Aspirin 81 MG Oral Tablet ChewableIndications:I [...] below 140/90,Ischemic cardiomyopathy,Beltrán ry artery disease involving [place] coronary artery of [place] heart without angina pectoris,Dyslipidemia , goal LDL [...] 24 hours. 60 Tablet 1 03/03/2024 Active Lomustine 40 MG Oral Capsule (Ceenu)Indications:Gl ioblastoma (HCC) Take 4 Capsules by mouth every 6 weeks. Take on an empty stomach at bedtime 4 Capsule 03/03/2024 Active Omeprazole 20 MG Oral Capsule Delayed Release (PriLOSEC)Indications :Glioblastoma (HCC) Take 2 Capsules by mouth in the morning. 60 Capsule 5 03/16/2024 Active busPIRone HCl 10 MG Oral Tablet (Buspar)Indications:A nxiety state Take 1 Tablet by mouth 2 times a day as needed for Agitation or Anxiety. 60 Tablet 2 03/22/2024 Active Morphine Sulfate ER 60 MG Oral [...] evening meals. 60 Tablet 1 04/17/2024 Active documented as of this encounter (statuses as of 04/19/2024) Active Problems Problem Noted Date Diagnosed Date [...] as of this encounter (statuses as of 04/19/2024) Resolved Problems Problem Noted Date Diagnosed Date [...] as of this encounter (statuses as of 04/19/2024) Immunizations Name Administration Dates Next Due COVID-19 mRNA, LNP-s, No Pre serve, 2-Dose Series (DotNetNuke) 12/02/2020,10/28/2020 Pneumococcal Polysaccharide PPV23 (Pneumovax) Seasonal Influenza, [...] Upcoming Encounters Date Type Department Care Team (Latest Contact Info) Description 04/19/2024 12:00 PM EDT Office Visit Hematology/Oncology [address] [address] Anuja Cortez CRNP [address] [place] [address] Hematology/Oncology Outpatient Clinic Note 04/19/2024 12:30 PM EDT Hem/Onc Treatment Hematology/Oncology Treatment, [address] [address] Arrived 04/19/2024 2:00 PM EDT Office Visit Palliative Medicine [address] [address] Nathalie Nichole PADenC [address] [place] [address] 04/19/2024 3:30 PM EDT Pharmacy Pharmacy Hematology Oncology [facility] [address] [place] [address] [facility] Hem[facility]Onc [address] [place] [address] 05/23/2024 4:00 PM EDT Imaging Radiology [facility] [address] [facility] [place] [address] 06/13/2024 11:00 AM EDT Office Visit Audiology [facility] [address] [facility] [place] [address] Gloria Oropeza Au.D. [address] [place] [address] 06/19/2024 11:15 AM EDT Office Visit Neurosurgery, [place] [address] [place] [address] Clinic, Brain Tumor Multidisciplinar [address] [place] [address] 06/28/2024 9:50 AM EDT Office Visit [place] [address] [place] [address] Luz Maria Gama, DO [address] [place] [address] Pending Results Name Type Priority Associated Diagnoses Date /Time CBC WITH WBC DIFFERENTIAL Lab STAT Glioblastoma (HCC) 04/19/2024 11:38 AM EDT COMPREHENSIVE METABOLIC PANEL Lab STAT Glioblastoma (HCC) 04/19/2024 11:38 AM EDT CBC Lab STAT Glioblastoma (HCC) 04/19/2024 11:38 AM EDT DIFFERENTIAL, AUTOMATED Lab STAT Glioblastoma (HCC) 04/19/2024 11:38 AM EDT URINALYSIS, REFLEX TO MICROSCOPIC Lab STAT Glioblastoma (HCC) 04/19/2024 11:39 AM EDT DIFFERENTIAL, TECHNOLOGIST REVIEW Lab Routine Glioblastoma (HCC) 04/19/2024 11:38 AM EDT Scheduled Procedures Name Priority Associated Diagnoses Date/Ti me COLONOSCOPY FLEXIBLE PROXIMA L DIAGNOSTIC Recall Encounter for screening colonoscopy Health Maintenance Due Date Last Done Comments COVID-19 Vaccine (4 - 2023-2 4 season) 2023 06/08/2021, 12/02/2020, 10/28/2020 Influenza Vaccine (FLU shot) (#1) 2024 020, 06/30/2018 Depression Screening 11/18/2024 11/19/2023 Colonoscopy Discontinued 09/01/2016, 09/01/2016 Colorectal Cancer Screening Discontinued Albumin/Creatinine Ratio Discontinued 01/10/2019 Zoster Vaccines Completed 05/19/2021, 07/03/2020 Cologuard Discontinued Fecal Occult Blood Test Discontinued Sigmoidoscopy Discontinued documented as of this encounter Medical Devices Not on filedocumented as of this encounter Visit Diagnoses Diagnosis Glioblastoma (HCC) Malignant neoplasm of brain, unspecified site documented in this encounter Advance Directives Documents on File Type Date Recorded Patient Casualty Claims Supervisor Expl anation Advance Directives and Living Will 02/25/2024 Candi Mulligan signed on 11/06/2023 ADVANCE DIRECTIVE / LIVING WILL COMBINED LIVING WILL & HEALTH CARE POWER OF CITY DIRECTOR POLST 12/03/2023 9:15 AM sign date 12/01/2023 [...] the patient have Health Care Power of Electronics Manufacturer? No * Full Code Date Activated Date [...] Care Agent (per Health Care Power of Electronics Manufacturer document) Care Teams Charter Representative Relationship Specialty Start Date End Date Luz Maria Gama DO [address] [place] [address] PCP - General Family Medicine 01/04/23 documented as of this encounter
--- OUTSIDE RECORDS SUMMARY | 2024-05-06 15:29 | External Medical Summary | Summary of Care ---
Author Name Unknown Organization [facility] Address [address] [place] [address] Phone [phone] Care Team Providers Care Ict Teacher Name Role Phone Luz Maria Gama Primary Care Provider Reason for Visit * Reason Comments Medication Management Encounter Details Date Type Department Care Team (Late st Contact Info) Description 04/19/2024 3:30 PM EDT Pharmacy Pharmacy Hematology Oncology [facility] [address] [place] [address] [facility] [place] [facility] Hem/Onc [address] [place], [place] [id number] Glioblastoma (HCC)* Allergies No known active allergiesdocumented [...] opioid overdose. Seek medical help immediately. [email or web address] 1 mL 3 11/18/2023 Active Aspirin 81 [...] below 140/90,Ischemic cardiomyopathy,Coron christiane artery disease involving [place] coronary artery of [place] heart without angina pectoris,Dyslipidemi a, goal LDL [...] 4 Discontinue d(Medicatio n List Clean Up) busPIRone HCl 10 MG Oral Tablet (Buspar)Indications: Anxiety state Take 1 Tablet by mouth 2 times a day as needed for Agitation or Anxiety. 60 Tablet 2 03/22/2024 4 Discontinue d(Refill) Lomustine 40 MG Oral Capsule (Ceenu)Indications:G lioblastoma (HCC) Take 4 Capsules by mouth every 6 weeks. Take on an empty stomach at bedtime 4 Capsule 04/19/2024 4 Discontinue d(Medicatio n List Clean Up) documented as of this [...] mRNA, LNP-s, No Pre serve, 2-Dose Series (Excep Apps) 12/02/2020,10/28/2020 Pneumococcal Polysaccharide PPV23 (Pneumovax) Seasonal Influenza, [...] as of this encounter Progress Notes * Terri Rivera, [facility] - 04/19/2024 1:45 PM EDT MEDICATION THERAPY MANAGEMENT LOMUSTINE TREATMENT PROGRESS NOTE Remy Lujan [id number] Patient Phone Numbers Proxino [phone] Significant Other: Candi Communication: Chart review Treatment: Medication: Lomustine (CCNU, Gleostine) Indication/Staging/Diagnosis Code: [...] stomach at bedtime Start Date: 03/24/24 Primary Descriptive Catalog Librarian/Oncologist: Dr. Shay Song Additional Therapy: Bevacizumab Supportive [...] significant drug interaction identified Assessment and Plan: Patient had labs/OV today Labs are stable PJP ppx not indicated for ALC > 0.5 Next labs scheduled for 05/03 with bevacizumab treatment Will follow-up in ~1 week to send next lomustine refill - will advise NOT to take dose until 05/03 labs reviewed as patient not due for next dose until 05/05 ADDENDUM: Discussed with [facility] pharmacist Noted that lomustine refill was sent to [facility] yesterday with dose of 160 mg (outside of [place] plan).Advised [facility] to cancel prescription as dose may be increased to 200 mg (based on tolerability/lab monitoring) Discontinued lomustine refill from medication list SM sent to Dr. Song to discuss lomustine dosing for Cycle 2 Per DARRYL Trial: Cycle 1: 90 mg/m2 * 2.68 m2 (02/29/24) = 241.2 mg (max dose 160 mg) Cycles 2+: 110 mg/m2 (if there were no hematologic toxic effects of a grade of more than 1 during the first cycle) * 2.68 m2 (02/29/24) = 294.8 mg (max dose 200 mg) Will follow-up again on 04/24 or sooner as appropriate Lomustine refill will be sent via [place] plan Assessment of compliance: compliant Assessment of adverse effects attributed to drug therapy: N/A Dose adjustment needed based on lab or adverse drug reaction? No Follow up: 1 week Terri Rivera PharmD, PAPI Ambulatory Clinical Pharmacist | Oral Chemotherapy Clinic [facility] 04/19/2024, 1:51 PM Terri Rivera PharmD, BCOP Ambulatory Clinical Pharmacist | Oral Chemotherapy Clinic [facility] 04/20/2024, 3:20 PM Monitoring Parameters: Estimated CrCl Serum creatinine: 0.9 mg/dL 04/19/24 1138 Estimated creatinine clearance: 135.1 mL/min Hepatitis panel Complete 02/28/24 Not immune to hepatitis B virus Suggested lab monitoring CBCd and CMP weekly Treatment Parameters Please refer to PI Pertinent labs: Latest Reference Range & Units 03/22/24 10:41 04/05/24 10:52 04/19/24 11:38 WBC 4.00 - 10.80 K/uL 19.91 (H) 8.58 11.88 (H) RBC 4.50 - 5.25 M/uL 4.47 4.36 4.62 HGB 14.0 - 16.8 g/dL 14.1 13.5 (L) 14.7 HCT 40.0 - 48.4 % 42.7 41.2 44.5 MCV 82.0 - 99.5 fL 95.5 94.5 96.3 MCH 27.0 - 34.0 pg 31.5 31.0 31.8 MCHC 32.0 - 36.0 g/dL 33.0 32.8 33.0 RDW 11.5 - 15.5 % 14.6 14.7 14.7 PLT 140 - 400 K/uL 263 239 149 MPV 6.6 - 11.1 fL 9.5 9.1 8.8 CBC WITH WBC DIFFERENTIAL Rpt ! Rpt ! Rpt ! Absolute Neutrophils 1.80 - 7.70 K/uL 16.53 (H) 6.84 8.91 (H) Absolute Lymphocytes 1.00 - 4.80 K/uL 2.39 1.02 1.78 (H): Data is abnormally high (L): Data is abnormally low !: Data is abnormal Rpt: View report in Results Review for more information Latest Reference Range & Units 03/22/24 10:41 04/05/24 10:52 04/19/24 11:38 Albumin 3.8 - 5.0 g/dL 4.1 3.9 3.8 AST 10 - 50 U/L 19 18 18 ALT 10 - 50 U/L 39 43 46 Alkaline Phosphatase 35 - 130 U/L 81 76 69 Bilirubin, Total <=1.2 mg/dL 0.4 0.3 0.4 Time Spent on Encounter: 6 - 10 minutes Encounter Group: Neuro-Oncology Encounter Interventions Item Category: Oral Chemotherapy Lomustine Problem/Rationale: Safety: Needs additional monitoring - Medication Requires monitoring Pharmacist Intervention(s): Lab monitoring Magnitude of Intervention: Monitoring with direction (Level 1) documented in this encounter Miscellaneous Notes * Addendum Note - Terri Rivera [facility] - 04/20/2024 3:20 PM EDTAddended by: TERRI RIVERA on: 04/20/2024 03:20 PM Modules accepted: Orders documented in this encounter Plan of Treatment Upcoming Encounters Date Type Department Care Team (Late st Contact Info) Description 04/24/2024 3:45 PM EDT Pharmacy Pharmacy Hematology Oncology [address] [address] [facility] [place] Hem/Onc [address] [place] [address] 05/03/2024 11:00 AM EDT Laboratory Laboratory [facility] Alannah [place] [address] [place], [place] [phone] Al[place], Lab [facility] [address] [facility] [place], [place] [address] 05/03/2024 12:00 PM EDT Hem/Onc Treatment Hematology/Oncology Treatment, [place] [address] [place], [place] [phone] Alannah, Chair 6 Hem Onc Scenery [address] [place] [address] 05/17/2024 11:00 AM EDT Laboratory Laboratory [facility] Alannah [place] [address] [place] [phone] [place], Lab Scenery [address] [place] [address] 05/17/2024 12:00 PM EDT Hem/Onc Treatment Hematology/Oncology Treatment, [place] 200 [facility], [place] [phone] Alannah, Chair 11 Hem Onc [facility] 200 [facility] [place] [address] 05/17/2024 1:00 PM EDT Office Visit Palliative Medicine [facility] [place] 200 [facility], [place] [phone] Keisha Tompkins MD [address] [place] [address] [place] [address] 05/23/2024 4:00 PM EDT Imaging Radiology [address] [facility] [address] 05/31/2024 10:40 AM EDT Laboratory Laboratory [facility] [place] [address] [place] [phone] Al[place], Lab [address] [facility] [place] [address] 05/31/2024 11:15 AM EDT Office Visit Hematology/Oncology [facility] [place] 200 [facility] [place] [phone] Shay Song MD 200 [facility] [place] [address] 05/31/2024 11:45 AM EDT Hem[facility] [phone] 06/13/2024 11:00 AM EDT Office Visit Audiology [facility] 132 [facility] [place] [address] Gloria Oropeza Au.D. 132 [facility] [place] [address] 06/19/2024 11:15 AM EDT Telemedicine Neurosurgery, [place] [address] [place] [address] Clinic, Brain Tumor Multidisciplinary [address] [place] [address] 06/28/2024 9:50 AM EDT Office Visit [facility] [address] [place] [address] Luz Maria Gama, DO [address] [place], [place] [phone] Scheduled Procedures Name Priority Associated Diagnoses Date/Ti me COLONOSCOPY FLEXIBLE PROXIMA L DIAGNOSTIC Recall Encounter for screening colonoscopy Health Maintenance Due Date Last Done Comments COVID-19 Vaccine (2022- 4 season) 2023 06/08/2021, 12/02/2020, 10/28/2020 Influenza [...] Documents on File Type Date Recorded Patient Sweep Molder Expl anation Advance Directives and Living Will 02/25/2024 Candi Mulligan signed on 11/06/2023 ADVANCE DIRECTIVE / LIVING WILL COMBINED LIVING WILL & HEALTH CARE POWER OF APPLICATION DESIGNER POLST 12/03/2023 9:15 AM sign date 12/01/2023 [...] the patient have Health Care Power of Medication Assistant? No * Full Code Date Activated Date [...] Care Agent (per Health Care Power of Medication Assistant document) Care Teams Ict Teacher Relationship Specialty Start Date End Date Luz Maria Gama DO [address] [facility] [place] [address] PCP - General Family Medicine 01/04/23 documented as of this encounter"
--- OUTSIDE RECORDS SUMMARY | 2024-05-06 15:29 | External Medical Summary | Summary of Care ---
Author Name Unknown Organization [facility] Address [address] [facility] [address] Phone [phone] Care Team Providers Care Polysomnograph Tech Name Role Phone Luz Maria Gama Primary Care Provider + [phone] Reason for Visit * Reason Comments Outpatient Testing Encounter Details Date Type Department Care Team (Late st Contact Info) Description 04/19/2024 11:30 AM EDT Laboratory Laboratory Scenery [place] [address] [place] [phone] [place], Lab Scenery [address] [place] [address] Glioblastoma (HCC) Allergies No known active allergiesdocumented [...] opioid overdose. Seek medical help immediately. [email or web address] 1 mL 3 11/18/2023 Active Omeprazole 40 [...] below 140/90,Ischemic cardiomyopathy,Beltrán ry artery disease involving [place] coronary artery of [place] heart without angina pectoris,Dyslipidemia , goal LDL [...] mRNA, LNP-s, No Pre serve, 2-Dose Series (Plastio) 12/02/2020,10/28/2020 Pneumococcal Polysaccharide PPV23 (Pneumovax) Seasonal Influenza, [...] 04/19/2024 12:00 PM EDT Office Visit Hematology/Oncology [address] [address] Anuja Cortez CRNP 400 [facility] [place] [place] [address] Arrived 04/19/2024 12:30 PM EDT Hem/Onc Treatment Hematology/Oncology [address] [address] Arrived 04/19/2024 2:00 PM EDT Office Visit Palliative Medicine [address] [address] Nathalie Nichole PANawaf 400 [facility] [place] [place] [address] 04/19/2024 3:30 PM EDT Pharmacy Pharmacy Hematology Oncology [facility] [address] [place] [address] [facility] [place] Hem/Onc [address] [place] [address] 05/23/2024 4:00 PM EDT Imaging Radiology [facility] 1st [facility] 132 [facility] [place] [address] 06/13/2024 11:00 AM EDT Office Visit Audiology [facility] 132 [facility] [place] [address] Gloria Oropeza Au.D. 132 [facility] [place] [address] 06/19/2024 11:15 AM EDT Office Visit Neurosurgery, [place] [address] [place] [address] Clinic, Brain Tumor Multidisciplinary [address] [place] [address] 06/28/2024 9:50 AM EDT Office Visit [facility] [address] [place] [address] Luz Maria Gama, [address] [place] [address] Pending Results Name Type Priority Associated Diagnoses Date /Time CBC WITH WBC DIFFERENTIAL Lab STAT Glioblastoma (HCC) 04/19/2024 11:38 AM EDT COMPREHENSIVE METABOLIC PANEL Lab STAT Glioblastoma (HCC) 04/19/2024 11:38 AM EDT CBC Lab STAT Glioblastoma (HCC) 04/19/2024 11:38 AM EDT DIFFERENTIAL, AUTOMATED Lab STAT Glioblastoma (HCC) 04/19/2024 11:38 AM EDT URINALYSIS, REFLEX TO MICROSCOPIC Lab STAT Glioblastoma (HCC) 04/19/2024 11:39 AM EDT Scheduled Procedures Name Priority Associated [...] Documents on File Type Date Recorded Patient Program Planner Expl anation Advance Directives and Living Will 02/25/2024 Candi Mulligan signed on 11/06/2023 ADVANCE DIRECTIVE / LIVING WILL COMBINED LIVING WILL & HEALTH CARE POWER OF CULTURAL CENTRE MANAGER POLST 12/03/2023 9:15 AM sign date [...] the patient have Health Care Power of Van Driver? No * Full Code Date Activated [...] Care Agent (per Health Care Power of Van Driver document) [email or web address] Care Teams Polysomnograph Tech Relationship Specialty Start Date End Date Luz Maria Gama DO [address] [place] [address] PCP - General Family Medicine 01/04/23 documented as of this encounter
--- OUTSIDE RECORDS SUMMARY | 2024-05-06 15:29 | External Medical Summary | Summary of Care ---
Author Name Unknown Organization [facility] Address [address] [place] [address] Phone [phone] Care Team Providers Care Rigger Chief Name Role Phone Luz Maria Gama Primary Care Provider [phone] Reason for Visit * Reason Comments Follow Up Encounter Details Date Type Department Care Team (Late st Contact Info) Description 04/19/2024 2:00 PM EDT Office Visit Palliative Medicine [facility] [address] [place] [address] Nathalie Cervantes, PA-C [address] [place] [address] [place] [address] Glioblastoma, IDH-wildtype (HCC)*; Anxiety state; Cancer related pain; Palliative care encounter Allergies No known active allergiesdocumented as of [...] opioid overdose. Seek medical help immediately. 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 60 Tablet 1 04/17/2024 Active Lomustine 40 MG Oral Capsule (Ceenu)Indications:G lioblastoma (HCC) Take 4 Capsules by mouth every 6 weeks. Take on an empty stomach at bedtime 4 Capsule 04/19/2024 Active busPIRone HCl 10 MG Oral Tablet (Buspar)Indications: Anxiety state Take 1 Tablet by mouth in the morning and 1 Tablet at noon and 1 Tablet before bedtime. 90 Tablet 2 04/19/2024 Active Omeprazole 40 MG Oral Capsule Delayed [...] Time Taken Comments Blood Pressure 161/89 04/19/2024 1:42 PM EDT Pulse 57 04/19/2024 1:42 PM EDT Temperature 36.3 C (97.4 F) 04/19/2024 1:42 PM ED T Respiratory Rate - - Oxygen Saturation 98% 04/19/2024 1:42 PM EDT Inhaled Oxygen Concentration - - Weight 143.8 kg (317 lb 0.3 oz) 04/19/2024 1:42 PM EDT Height - - Body Mass [...] No 11/05/2023 documented as of this encounter Patient Instructions * Patient Instructions* Sandra Cisneros LPN - 04/19/2024 1:42 PM EDT Our Palliative Medicine Clinic is available Wednesday through Wednesday during business hours, so we are unavailable on weekends and holidays. Please ensure that you request refills early in the week as itmay take 1-2 days for them to be addressed and filled, for authorizations to be approved, or for the pharmacy to order them if needed. You can contact our office at [phone], which is our clinic in [place], or you can message us on [employer]. If you have an emergency outside of these hours, we recommend calling your primary care clinic, Oncology office, or going to the ER if you have a medical emergency. documented in this encounter Progress Notes * Nathalie Cervantes PA-C - 04/19/2024 2:03 PM EDT Palliative Medicine Outpatient Progress Note [facility] Palliative Medicine Outreach [address] [place] [address] Name: Remy Lujan Date: 04/19/2024 HPI: Remy Lujan is a 58 year old male with glioblastoma seen in follow-up for goals of care and symptom management. At last visit, his regimen was continued and refills were sent. He started with Optune device which is going well. He has been having less pain. Pain well controlled. No other symptoms at this time. Bowels are moving well. No N/V. Palliative symptoms: Pain: Location: mainly in head Currently taking: MS Contin 60 mg BID, and MSIR 30 mg Q4H PRN, has only needed 2-3 doses per day. Examination: BP 161/89 | Pulse 57 | Temp 36.3 C (97.4 F) | Wt (!) 143.8 kg (317 lb 0.3 oz) | SpO2 98% | BMI 40.70 kg/m | BSA 2.74 m Constitutional: no acute distress. HENT: normocephalic, atraumatic. Optune device in place. Eyes: anicteric, sclera and conjunctiva normal. Neck: no stridor Chest: normal respiratory effort Decision-making Capacity: Does Patient have Decisional Capacity? y Does Patient have a Healthcare Agent? Y, partner Candi Advanced Care Planning (see ACP Tab): AD in EMR: y POLST in EMR: y DNR LIMITED ASSESSMENT/PLAN: Remy Lujan is a 58 year old male seen in follow-up for goals of care and pain and symptom management. Gliobastoma Continuing infusion today then oral chemo at home Using Optune device with success. Cancer related pain Continue MS Contin 60mg BID Continue MS IR to 30mg q4h PRN No refills needed today. Anxiety Has been taking Buspirone 10 mg TID instead of BID and it's working well. Will refill at higher dose. Goals of care Wants to continue cancer directed therapy If declines, would want to be comfortable Code status if admitted: DNR but ok w/LIMITED tx Follow up in 4 weeks They are somtimes able to do video visits. Next visit with Dr. Turner Cervantes PA-C [facility] Palliative Medicine [phone] * Sandra Cisneros LPN - 04/19/2024 1:42 PM EDT TBS in infusion center documented in this encounter Miscellaneous Notes * Addendum Note - Nathalie Cervantes PA-C - 04/19/2024 2:41 PM EDTAddended by: NATHALIE CERVANTES on: 04/19/2024 02:41 PM Modules accepted: Orders documented in this encounter Plan of Treatment Upcoming Encounters Date Type Department Care Team (Latest Contact Info) Description 04/19/2024 3:30 PM EDT Pharmacy Pharmacy Hematology Oncology [address] [address] [facility] Hem/Onc [address] [place] [address] Glioblastoma (HCC)* 04/26/2024 3:45 PM EDT Pharmacy Pharmacy Hematology Oncology [place] [address] [place] [address] [facility] Hem/Onc [address] [facility] [place] [address] 05/03/2024 11:00 AM EDT Laboratory Laboratory [facility] Alannah [place] [address] [place] [address] Alannah Lab Scenery [address] [facility] [place] [address] 05/03/2024 12:00 PM EDT Hem/Onc Treatment Hematology/Oncology Treatment, [place] [facility] [address] Al[place], Chair 6 Hem Onc Scenery [address] [place] [address] 05/17/2024 11:00 AM EDT Laboratory Laboratory Garry Jaffe [place] [address] [place] [phone] Alannah Lab Scenery [address] [place] [address] 05/17/2024 12:00 PM EDT Hem/Onc Treatment Hematology/Oncology Treatment, [place] [address] [facility] [address] Al[place], Chair 11 Hem Onc Scenery [address] [place] [address] 05/23/2024 4:00 PM EDT Imaging Radiology [facility] 1st [facility], [address] [place] [address] 05/31/2024 10:40 AM EDT Laboratory Laboratory Garry Jaffe [place] [address] [place] [address] Cristobal Jaffery [address] [place] [address] 05/31/2024 11:15 AM EDT Office Visit Hematology/Oncology Garry Jaffe [place] [address] [place] [phone] Shay Song MD [address] [place] [address] 05/31/2024 11:45 AM EDT Hem/Onc Treatment Hematology/Oncology Treatment, [place] [address] [place] [address] 06/13/2024 11:00 AM EDT Office Visit Audiology [facility] [address] [place] [address] Gloria Oropeza Au.D. [address] [place] [address] 06/19/2024 11:15 AM EDT Office Visit Neurosurgery, [place] [address] [place] [address] Clinic, Brain Tumor Multidisciplina [address] [place] [address] 06/28/2024 9:50 AM EDT Office Visit [facility] [address] [place] [phone] Luz Maria Gama, [address] [place] [address] Scheduled Procedures Name Priority Associated Diagnoses Date/Ti [...] as of this encounter Visit Diagnoses Diagnosis Glioblastoma, IDH-wildtype (HCC)- Primary Anxiety state Anxiety state, unspecified Cancer related pain Neoplasm related pain (acute) (chronic) Palliative care encounter Encounter for palliative care Glioblastoma (HCC)- Primary Malignant neoplasm of brain, unspecified site documented in this encounter Advance Directives Documents on File Type Date Recorded Patient Tick Sewer Expl anation Advance Directives and Living Will 02/25/2024 Candi Mulligan signed on 11/06/2023 ADVANCE DIRECTIVE / LIVING WILL COMBINED LIVING WILL & HEALTH CARE POWER OF HIGH SCHOOL HVAC R INSTRUCTOR POLST 12/03/2023 9:15 AM sign date [...] the patient have Health Care Power of Computer Analyst Supervisor? No * Full Code Date Activated Date [...] Care Agent (per Health Care Power of Computer Analyst Supervisor document) [email or web address] Care Teams Rigger Chief Relationship Specialty Start Date End Date Luz Maria Gama DO [address] [place] [address] PCP - General Family Medicine 01/04/23 documented as of this encounter"
--- OUTSIDE RECORDS SUMMARY | 2024-05-06 15:29 | External Medical Summary | Summary of Care ---
Author Name Unknown Organization [facility] Address [address] [place] [address] Phone [phone] Care Team Providers Care Tar Distillation Supervisor Name Role Phone Luz Maria Gama Primary Care Provider [phone] Reason for Visit * Reason Comments Chemotherapy Zirabev. * Episode Based Medications (Routine) - Authorized Specialty Diagnoses / Procedures Referred By Jerel jackson Referred To Contact Diagnoses Glioblastoma (HCC) Procedures ME INJ., ZIRABEV, 10 MG Palak Cast MD [address] [place] [address] Anc Hem/Onc [address] [address] Referral ID Status Reason Start Date Expiration Date V isits Requested Visits Authorized [id number] Authorized 02/28/2024 09/19/2099 [id number] Encounter Details Date Type Department Care Team (Latest Contact Info) Description 04/19/2024 12:30 PM EDT Hem/Onc Treatment Hematology/Oncolog y Treatment, [address] [address] Glioblastoma (HCC)*; Encounter for antineoplastic [...] suspected opioid overdose. Seek medical help immediately. [email or web address] 1 mL 3 11/18/2023 Active Omeprazole 40 MG Oral Capsule Delayed Release (PriLOSEC) Take 1 Capsule by mouth in the morning. 12/27/2023 Active Aspirin 81 MG Oral Tablet ChewableIndications: [...] below 140/90,Ischemic cardiomyopathy,Coron christiane artery disease involving napakiak coronary artery of napakiak heart without angina pectoris,Dyslipidemi a, goal LDL [...] mRNA, LNP-s, No Pre serve, 2-Dose Series ([employer]) 12/02/2020,10/28/2020 Pneumococcal Polysaccharide PPV23 (Pneumovax) Seasonal Influenza, [...] PM EDT Chair 6. Patient arrived for [facility]. Patient was seen by OSVALDO Lane today (see office notes). Per Anuja norton for treatment today. PIV established. Chemotherapy/Immunotherapy agents: EMELY Consent for chemotherapy drug [...] 3:30 PM EDT Pharmacy Pharmacy Hematology Oncology [address] [address] [facility] Hem/Onc [address] [place] [address] Glioblastoma (HCC)* 04/26/2024 3:45 PM EDT Pharmacy Pharmacy Hematology Oncology [place] [address] [place] [address] [facility] Hem/Onc [address] [place] [address] 05/03/2024 11:00 AM EDT Laboratory Laboratory [facility] [place] [address] [place], [place] [phone] Alannah, Lab Scenery [address] [facility] [place], [place] [address] 05/03/2024 12:00 PM EDT Hem/Onc Treatment Hematology/Oncology Treatment, [place] 200 [facility] [address] [place], [place] [address] Alannah, Chair 6 Hem Onc Scenery [address] [place] [address] 05/17/2024 11:00 AM EDT Laboratory Laboratory [facility] [place] [address] [place] [address] Alannah, Lab Scenery [address] [facility] [place], [place] [address] 05/17/2024 12:00 PM EDT Hem/Onc Treatment Hematology/Oncology Treatment, [place] 200 [facility], [place] [address] Alannah, Chair 11 Hem Onc Scenery [address] [place] [address] 05/23/2024 4:00 PM EDT Imaging Radiology [address], [address] [address] 05/31/2024 10:40 AM EDT Laboratory Laboratory [facility] [place] [address] [place] [address] Alannah, Lab Scenery [address] [facility] [place] [address] 05/31/2024 11:15 AM EDT Office Visit Hematology/Oncology [facility] [place] [address] [place] [address] Shay Song MD [address] [place] [address] 05/31/2024 11:45 AM EDT Hem/Onc Treatment Hematology/Oncology Treatment, [place] [address] [place] [address] 06/13/2024 11:00 AM EDT Office Visit Audiology [facility] [address] [place] [address] Gloria Oropeza Au.D. [address] [place] [address] 06/19/2024 11:15 AM EDT Office Visit Neurosurgery, [place] [address] [place] [address] Clinic, Brain Tumor Multidisciplina [address] [place] [address] 06/28/2024 9:50 AM EDT Office Visit [facility] [address] [place] [phone] Luz Maria Gama, [address] [place] [address] Scheduled Procedures Name Priority Associated Diagnoses Date/Ti [...] brain, unspecified site Encounter for antineoplastic chemotherapy Glioblastoma (HCC)- Primary Malignant neoplasm of brain, unspecified site documented in this encounter Administered Medications Active Administered Medications - up to 3 most recent administrations Medication Order MAR Action Action Date Dose Rate Site diphenhydrAMINE (Benadryl) inj 50 mg 50 mg, IV Push, ONCE PRN Other, Hypersensitivity Reaction, Starting on Wed04/19/24 at 1232, Until Wed04/20/24 at 1231, For 24 hours EPINEPHrine 1 MG/ML inj 0.3 mg 0.3 mg, Intramuscular, ONCE PRN Other, Hypersensitivity Reaction or Anaphylaxis, Starting on Wed04/19/24 at 1232, Until Laura 04/20/24 at 1231, For 24 hours hEParin 100 UNIT/ML Lock Flush inj 500 Units 500 Units (5 mL), IV Lock, PRN Other, IV Flush, Starting on Wed04/19/24 at 1232, Until Laura 04/20/24 at 1231, For 24 hours, Do not flush if lock, PICC, or central line not in place; IV infusing or unable to flush. Hydrocortisone Sod Suc (PF) (Solu-Cortef) inj 100 mg 100 mg, IV Push, ONCE PRN Other, Hypersensitivity Reaction, Starting on Wed04/19/24 at 1232, Until Laura 04/20/24 at 1231, For 24 hours NSS infusion Intravenous, at 50 mL/hr, PRN, Starting on Wed04/19/24 at 1345, Until Discontinued, Maintenance line Start Infusion 04/19/2024 12:59 PM EDT 50 mL/hr oxygen GAS Inhalation, OXYGEN, First dose on Wed04/19/24 at 1600, Until Discontinued, Device/Managed by: Low [...] Push, PRN Other, IV Flush, Starting on Wed04/19/24 at 1232, Until Laura 04/20/24 at 1231, For 24 hours, Do not flush if [...] 1:04 PM EDT 1,400 mg 210 mL/hr documented in this encounter Advance Directives Documents on File Type Date Recorded Patient Environmental Projects Advisor Expl anation Advance Directives and Living Will 02/25/2024 Candi Mulligan signed on 11/06/2023 ADVANCE DIRECTIVE / LIVING WILL COMBINED LIVING WILL & HEALTH CARE POWER OF LOGGING RAFTER LABORER POLST 12/03/2023 9:15 AM sign date 12/01/2023 [...] the patient have Health Care Power of Harvest Supervisor? No * Full Code Date Activated [...] Care Agent (per Health Care Power of Harvest Supervisor document) [email or web address] Care Teams Tar Distillation Supervisor Relationship Specialty Start Date End Date Luz Maria Gama DO [address] [place] [address] PCP - General Family Medicine 01/04/23 documented as of this encounter
--- OUTSIDE RECORDS SUMMARY | 2024-05-06 15:29 | External Medical Summary | Summary of Care ---
Author Name Unknown Organization [facility] Address [address] [place] [address] Phone [phone] Care Team Providers Care Erp Programmer Name Role Phone Luz Maria Gama Primary Care Provider [phone] Reason for Visit * Reason Comments Chemotherapy Zirabev. * Episode Based Medications (Routine) - Authorized Specialty Diagnoses / Procedures Referred By Jerel jackson Referred To Contact Diagnoses Glioblastoma (HCC) Procedures DC INJ., ZIRABEV, 10 MG Palak Cast MD [address] [place] [address] Anc Hem/Onc [address] [address] Referral ID Status Reason Start Date Expiration Date V isits Requested Visits Authorized [id number] Authorized 02/28/2024 09/19/2099 999 999 Encounter Details Date Type Department Care Team (Latest Contact Info) Description 04/19/2024 12:30 PM EDT Hem/Onc Treatment Hematology/Oncolog y Treatment, [address] [address] Glioblastoma (HCC)*; Encounter for antineoplastic [...] suspected opioid overdose. Seek medical help immediately. [email or web address] 1 mL 3 11/18/2023 Active Aspirin 81 [...] below 140/90,Ischemic cardiomyopathy,Coron christiane artery disease involving que[place] coronary artery of quechan heart without angina pectoris,Dyslipidemi a, goal LDL [...] mRNA, LNP-s, No Pre serve, 2-Dose Series ([employer]) 12/02/2020,10/28/2020 Pneumococcal Polysaccharide PPV23 (Pneumovax) Seasonal Influenza, [...] PM EDT Chair 6. Patient arrived for [facility]. Patient was seen by OSVALDO [...] PM EDT Pharmacy Pharmacy Hematology Oncology [facility] [address] [place] [address] [facility], [facility] Hem/Onc [address] [place] [address] 05/03/2024 11:00 AM EDT Laboratory Laboratory [facility] Karina Alvarez [address] [place] [phone] Alannah Lab Scenery [address] [facility] [place] [address] 05/03/2024 12:00 PM EDT Hem/Onc Treatment Hematology/Oncology Treatment, [place] 200 [facility], [place] [phone] Alannah, Chair 6 Hem Onc [facility] [address] [facility] [place], [place] [address] 05/17/2024 11:00 AM EDT Laboratory Laboratory [facility] [address] [place], [place] [address] Al[place], Lab [facility] [address] [facility] [place], [place] [address] 05/17/2024 11:30 AM EDT Office Visit Hematology/Oncology [facility] [address] [place], [place] [phone] Anuja Cortez CRNP [address] [place] [address] 05/17/2024 12:00 PM EDT Hem/Onc Treatment Hematology/Oncology Treatment, [place] [address] [facility], [place] [phone] Alannah, Chair 11 Hem On[address] [place], [place] [address] 05/17/2024 12:30 PM EDT Office Visit Palliative Medicine [facility] [address] [facility], [place] [phone] Keisha Tompkins MD [address] [facility] [place] [address] 05/23/2024 4:00 PM EDT Imaging Radiology [address], [place] [address] [facility] [place] [address] 05/31/2024 10:40 AM EDT Laboratory Laboratory [place] [address] [address] [place] [phone] Cristobal Jaffe [facility] [address] [facility] [place], [place] [address] 05/31/2024 11:15 AM EDT Office Visit Hematology/Oncology [facility] [place] [address] [place] [phone] Shay Song MD 200 [facility] [place] [address] 05/31/2024 11:45 AM EDT Hem/Onc Treatment [facility]/Oncology [facility] [address] [facility] [phone] 06/13/2024 11:00 AM EDT Office Visit Audiology [facility] [address] [place] [address] Gloria Oropeza Au.D. [address] [place] [address] 06/19/2024 11:15 AM EDT Telemedicine Neurosurgery, [place] [address] [place] [address] Clinic, Brain Tumor Multidisciplinary [address] [place] [address] 06/28/2024 9:50 AM EDT Office Visit [address] [phone] Luz Maria Gama DO [address] [place] [address] Scheduled Procedures Name Priority Associated Diagnoses Date/Ti [...] Documents on File Type Date Recorded Patient Radiographer Mammographer Expl anation Advance Directives and Living Will 02/25/2024 Candi Mulligan signed on 11/06/2023 ADVANCE DIRECTIVE / LIVING WILL COMBINED LIVING WILL & HEALTH CARE POWER OF SPRING MACHINE OPERATOR POLST 12/03/2023 9:15 AM sign date [...] the patient have Health Care Power of Complex Commercial Litigation Paralegal? No * Full Code Date Activated Date [...] Care Agent (per Health Care Power of Complex Commercial Litigation Paralegal document) Care Teams Erp Programmer Relationship Specialty Start Date End Date Luz Maria Gama DO [address] [place] [address] PCP - General Family Medicine 01/04/23 documented as of this encounter
--- OUTSIDE RECORDS SUMMARY | 2024-05-06 15:29 | External Medical Summary | Summary of Care ---
Author Name Unknown Organization [facility] Address [address] [place] [address] Phone [phone] Care Team Providers Care Sound Designer Name Role Phone Luz Maria Gama Primary Care Provider [phone] Reason for Visit * Reason Comments Medication Management Encounter Details Date Type Department Care Team (Late st Contact Info) Description 04/24/2024 3:45 PM EDT Pharmacy Pharmacy Hematology Oncology [facility] [address] [place] [address] [facility] Hem/Onc [address] [place], [place] [id number] Glioblastoma (HCC)* Allergies No known active allergiesdocumented [...] opioid overdose. Seek medical help immediately. 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,Dyslipidemia , goal LDL [...] 04/19/2024 Active Lomustine 40 MG Oral Capsule (Gleostine)Indication s:Glioblastoma (HCC) Take 5 Capsules by mouth every [...] this encounter Progress Notes * Martha Rivera, [facility] - 04/24/2024 2:29 PM EDT MEDICATION THERAPY MANAGEMENT LOMUSTINE TREATMENT PROGRESS NOTE Remy Lujan [phone] Patient Phone Numbers [employer] [phone] Significant Other: Candi Communication: Spoke to MD/PA/SITE INSPECTOR Treatment: Medication: Lomustine (CCNU, Gleostine) Indication/Staging/Diagnosis Code: [...] stomach at bedtime Start Date: 03/24/24 Primary Supervisor Game Farm/Oncologist: Dr. Shay Song Additional Therapy: Bevacizumab Supportive [...] significant drug interaction identified Assessment and Plan: SM sent to Dr. Song to discuss lomustine dosing for Cycle 2 Per BELOB Trial: Cycle 1: 90 mg/m2 * 2.68 m2 (02/29/24) = 241.2 mg (max dose 160 mg) Cycles 2+: 110 mg/m2 (if there were no hematologic toxic effects of a grade of more than 1 during the first cycle) * 2.68 m2 (02/29/24) = 294.8 mg (max dose 200 mg) Dr. Song agrees with lomustine increase to 200 mg for Cycle 2+ Lomustine prescription for 200 mg PO once sent to [facility] Will follow-up towards the end of the week to check on prescription processing and contact patient/significant other to advise NOT to take Temodar until labs reviewed on 05/03 (dose not due until 05/05) Assessment of compliance: compliant Assessment of adverse effects attributed to drug therapy: N/A Dose adjustment needed based on lab or adverse drug reaction? Yes, dose increase as above Follow up: 04/27 Martha Rivera, AubrieD, BCOP Ambulatory Clinical Pharmacist | Oral Chemotherapy Clinic [facility] 04/24/2024, 2:32 PM Monitoring Parameters: Estimated CrCl Serum creatinine: [...] 0.4 0.3 0.4 Time Spent on Encounter: 16 - 20 minutes Encounter Group: Neuro-Oncology Encounter Interventions Item Category: Oral Chemotherapy Lomustine Problem/Rationale: Safety: Needs additional monitoring - Medication Requires monitoring Adherence - Refill needed Pharmacist Intervention(s): Care coordination, Clarification with Provider, Dose increased, and Labmonitoring Magnitude of Intervention: Modification of medication for asymtomatic patients (Level 2) documented in this encounter Plan of Treatment Upcoming Encounters Date Type Department Care Team (Late st Contact Info) Description 04/27/2024 3:45 PM EDT Pharmacy Pharmacy Hematology Oncology [facility] [address] [place] [address] [facility] Hem/Onc [address] [place] [address] 05/03/2024 11:00 AM EDT Laboratory Laboratory [facility] [address] [place] [address] Alannah, Lab Scenery [address] [place] [address] 05/03/2024 12:00 PM EDT Hem/Onc Treatment Hematology/Oncology [address] [place] [address] Alannah, Chair 6 Hem Onc [facility] 200 [facility] [place] [address] 05/17/2024 11:00 AM EDT Laboratory Laboratory [facility] [address] [place] [address] Alannah, Lab Scenery [address] [place] [address] 05/17/2024 11:30 AM EDT Office Visit Hematology/Oncology [facility] 200 [facility], [place] [phone] Anuja Cortez CRNP [address] [place], [place] [phone] 05/17/2024 12:00 PM EDT Hem/Onc Treatment [facility]/Oncology [address], [place] [phone] Alannah, Chair 11 Hem Onc [facility] 200 [facility] [place] [address] 05/17/2024 12:30 PM EDT Office Visit Palliative Medicine [address], [place] [phone] Keisha Tompkins MD [address] [place] [address] 05/23/2024 4:00 PM EDT Imaging Radiology [facility] 1st [facility] [address] [facility] [place] [address] 05/31/2024 10:40 AM EDT Laboratory Laboratory [facility] [address] [place] [phone] [facility] [address] [place] [address] 05/31/2024 11:15 AM EDT Office Visit Hematology/Oncology [facility] [address] [place] [address] Shay Song MD [address] [place] [address] 05/31/2024 11:45 AM EDT Hem/Onc Treatment Hematology/Oncology Treatment, [place] [address] [place] [phone] 06/13/2024 11:00 AM EDT Office Visit Aud[facility] [place] [address] Gloria Oropeza AuLibby [facility] [place] [address] 06/19/2024 11:15 AM EDT Telemedicine Neurosurgery, [place] [address] [place] [address] Clinic, Brain Tumor Multidisciplinary [address] [place] [address] 06/28/2024 9:50 AM EDT Office Visit [facility] [address] [place] [phone] Luz Maria Gama DO [address] [place] [address] Scheduled Procedures Name Priority Associated Diagnoses Date/Ti me COLONOSCOPY FLEXIBLE PROXIMA L DIAGNOSTIC Recall Encounter for screening colonoscopy Health Maintenance Due Date Last Done Comments COVID-19 Vaccine (4 - 3-2 4 season) 2023 06/08/2021, 12/02/2020, 10/28/2020 Influenza [...] Documents on File Type Date Recorded Patient [employer] Fitness Instructor Expl anation Advance Directives and Living Will 02/25/2024 Candi Mulligan signed on 11/06/2023 ADVANCE DIRECTIVE / LIVING WILL COMBINED LIVING WILL & HEALTH CARE POWER OF STRAIGHTENING MACHINE FEEDER POLST 12/03/2023 9:15 AM sign date 12/01/2023 [...] the patient have Health Care Power of Equal Opportunity Director? No * Full Code Date Activated Date [...] Name Relationship Healthcare Agent Relationship Communication Candi Schreffler Significant Other Health Care Agent (per Health Care Power of Equal Opportunity Director document) [email or web address] Care Teams Sound Designer Relationship Specialty Start Date End Date Luz Maria Gama DO [address] [place] [facility] [place] [address] PCP - General Family Medicine 01/04/23 documented as of this encounter"
--- OUTSIDE RECORDS SUMMARY | 2024-05-06 15:29 | External Medical Summary | Summary of Care ---
Author Name Unknown Organization [facility] Address [address] [facility] [place] [address] Phone [phone] Care Team Providers Care Faucet Polisher Name Role Phone Luz Maria Gama Primary Care Provider [phone] Reason for Visit * Reason Comments Follow Up Encounter Details Date Type Department Care Team (Late st Contact Info) Description 04/19/2024 2:00 PM EDT Office Visit Palliative Medicine [facility] [address] [place] [address] Nathalie Cervantes, PA-C [address] [place] [address] [place] [address] Glioblastoma, IDH-wildtype (HCC)*; Anxiety state; Cancer [...] opioid overdose. Seek medical help immediately. [email or web address] 1 mL 3 11/18/2023 Active Aspirin 81 [...] below 140/90,Ischemic cardiomyopathy,Coron christiane artery disease involving tanacross coronary artery of tanacross heart without angina pectoris,Dyslipidemi a, goal LDL [...] needed. You can contact our office at [phone], which is our clinic in [place], or you can message us on [employer]. If you have an emergency outside of these hours, we recommend calling your primary care clinic, Oncology office, or going to the ER if you have a medical emergency. documented in this encounter Progress Notes * Nathalie Cervantes PA-C - 04/19/2024 2:03 PM EDT Palliative Medicine Outpatient Progress Note [facility] Palliative Medicine Outreach [address] [place] [address] Name: Remy Lujan Date: 04/19/2024 HPI: Remy [...] Next visit with Dr. Turner Cervantes PA-C [facility] Palliative Medicine [phone] * Sandra Cisneros LPN - 04/19/2024 1:42 [...] 3:30 PM EDT Pharmacy Pharmacy Hematology Oncology [address] [address] [facility] Hem/Onc [address] [place] [address] Glioblastoma (HCC)* 04/26/2024 3:45 PM EDT Pharmacy Pharmacy Hematology Oncology [place] [address] [place] [address] [facility] Hem/Onc [address] [place] [address] 05/03/2024 11:00 AM EDT Laboratory Laboratory [facility] [address] [place] [address] Alannah, Lab Scenery [address] [place], [place] [address] 05/03/2024 12:00 PM EDT Hem/Onc Treatment Hematology/Oncolog y Treatment, [place] 200 [facility], [place] [address] Alannah, Chair 6 Hem Onc [place] [address] [place] [address] 05/17/2024 11:00 AM EDT Laboratory Laboratory [facility] [address] [place] [address] Alannah, Lab Scenery [address] [place], [place] [address] 05/17/2024 12:00 PM EDT Hem/Onc Treatment Hematology/Oncolog y Treatment, [place] [address] [facility], [place] [address] Alannah, Chair 11 Hem Onc Scen[place] [address] [place], [place] [address] 05/17/2024 1:00 PM EDT Office Visit Palliative Medicine [facility] [address] [facility], [place] [phone] Keisha Tompkins MD [address] [place] [address] [place] [address] 05/23/2024 4:00 PM EDT Imaging Radiology [address], [place] 132 [facility] [place] [address] 05/31/2024 10:40 AM EDT Laboratory Laboratory [facility] [address] [place] [address] Cristobal Jaffe Scenery [address] [place] [address] 05/31/2024 11:15 AM EDT Office Visit Hematology/Oncolog y Scenery [place] [address] [place] [address] Shay Song MD [address] [place] [address] 05/31/2024 11:45 AM EDT Hem/Onc Treatment Hematology/Oncolog y [facility] [place] [facility] [address] 06/13/2024 11:00 AM EDT Office Visit Audiology [facility] [address] [place] [address] Gloria Oropeza Au.D. [address] [place] [address] 06/19/2024 11:15 AM EDT Office Visit Neurosurgery, [place] [address] [place] [address] Clinic, Brain Tumor Multidisciplinar y [address] [place] [address] 06/28/2024 9:50 AM EDT Office Visit [facility] [address] [place] [address] Luz Maria Gama DO [address] [place] [address] Scheduled Procedures Name Priority Associated Diagnoses Date/Ti [...] Documents on File Type Date Recorded Patient Senior Analyst Market Intelligence Expl anation Advance Directives and Living Will 02/25/2024 Candi Mulligan signed on 11/06/2023 ADVANCE DIRECTIVE / LIVING WILL COMBINED LIVING WILL & HEALTH CARE POWER OF STEEL SPAR OPERATOR POLST 12/03/2023 9:15 AM sign date [...] the patient have Health Care Power of Barrel Line Operator? No * Full Code Date Activated [...] Care Agent (per Health Care Power of Barrel Line Operator document) Care Teams Faucet Polisher Relationship Specialty Start Date End Date Luz Maria Gama DO [address] [place] [address] PCP - General Family Medicine 01/04/23 documented as of this encounter"
--- OUTSIDE RECORDS SUMMARY | 2024-05-06 15:29 | External Medical Summary | Summary of Care ---
Author Name Unknown Organization [facility] Address [address] [place] [address] Phone [phone] Care Team Providers Care Community Specialist Name Role Phone Luz Maria Gama Primary Care Provider [phone] Reason for Visit * Reason Onset Date Comments Films 04/21/2024 Encounter Details Date Type Department Care Team (Late st Contact Info) Description 04/21/2024 Telephone Radiology Film File [address] [place], [place] [phone] Support, Imaging Radiology [address] [place] [address] Films Allergies No known active allergiesdocumented as of this encounter (statuses as of 04/21/2024) Medications Medication Sig Dispensed Refills Start Date [...] opioid overdose. Seek medical help immediately. [email or web address] 1 mL 3 11/18/2023 Active Aspirin 81 [...] below 140/90,Ischemic cardiomyopathy,Beltrán ry artery disease involving comanche coronary artery of comanche heart without angina pectoris,Dyslipidemia , goal LDL [...] as of this encounter (statuses as of 04/21/2024) Active Problems Problem Noted Date Diagnosed Date [...] as of this encounter (statuses as of 04/21/2024) Resolved Problems Problem Noted Date Diagnosed Date [...] as of this encounter (statuses as of 04/21/2024) Immunizations Name Administration Dates Next Due COVID-19 mRNA, LNP-s, No Pre serve, 2-Dose Series ([employer]) 12/02/2020,10/28/2020 Pneumococcal Polysaccharide PPV23 (Pneumovax) Seasonal Influenza, [...] encounter Miscellaneous Notes * Telephone Encounter - Krysta Kumari OSA - 04/21/2024 1:44 PM EDT [employer] requesting 02-22-24 images be pushed to their system [place] Authorization to Release on file. Images pushed to [employer] Life Image account Job ID: [id number] Associated report(s) not needed. documented in this encounter Plan of Treatment Upcoming Encounters Date Type Department Care Team (Late st Contact Info) Description 04/24/2024 3:45 PM EDT Pharmacy Pharmacy Hematology Oncology [facility] [address] [place] [address] [facility] Hem/Onc [address] [place] [address] 05/03/2024 11:00 AM EDT Laboratory Laboratory [facility] [place] [address] [place] [phone] Alannah Lab Scenery [address] [place] [address] 05/03/2024 12:00 PM EDT Hem/Onc Treatment Hematology/Oncology Treatment, [place] [address] [place] [address] Alannah, Chair 6 Hem Onc Scenery [address] [place] [address] [address] 05/17/2024 11:00 AM EDT Laboratory Laboratory [facility] [place] [address] [place] [phone] Alannah, Lab Scenery [address] [place] [address] [address] 05/17/2024 12:00 PM EDT Hem/Onc Treatment Hematology/Oncology [facility] 200 [facility], [place] [address] Alannah, Chair 11 Hem Onc [facility] 200 [place] [address] 05/17/2024 1:00 PM EDT Office Visit Palliative Medicine [facility] [place] 200 [facility], [place] [phone] Keisha Tompkins MD [address] [place], [place] [address] [address] 05/23/2024 4:00 PM EDT Imaging Radiology [address] 132 [facility] [place] [address] 05/31/2024 10:40 AM EDT Laboratory Laboratory [facility] 200 [facility] [place], [place] [phone] Alannah, Lab [address] [place] [address] 05/31/2024 11:15 AM EDT Office Visit Hematology/Oncology [address] [place] [phone] Shay Song MD 200 [facility] [place] [address] 05/31/2024 11:45 AM EDT Hem/Onc Treatment Hematology/Oncology [address], [place] [phone] 06/13/2024 11:00 AM EDT Office Visit Audiology [facility] 132 [facility] [place] [address] Gloria Oropeza Au.D. 132 [facility] [place] [address] 06/19/2024 11:15 AM EDT Telemedicine Neurosurgery, [place] [address] [place] [address] Clinic, Brain Tumor Multidisciplinary [address] [place] [address] 06/28/2024 9:50 AM EDT Office Visit [facility] [address] [place] [phone] Luz Maria Gama DO [address] [place] [address] Scheduled Procedures Name Priority Associated Diagnoses Date/Ti [...] Documents on File Type Date Recorded Patient Floor Runner Expl anation Advance Directives and Living Will 02/25/2024 Candi Mulligan signed on 11/06/2023 ADVANCE DIRECTIVE / LIVING WILL COMBINED LIVING WILL & HEALTH CARE POWER OF CULINARY ARTIST POLST 12/03/2023 9:15 AM sign date 12/01/2023 [...] the patient have Health Care Power of Sheet Metal Layout Worker? No * Full Code Date Activated Date [...] Care Agent (per Health Care Power of Sheet Metal Layout Worker document) [email or web address] Care Teams Community Specialist Relationship Specialty Start Date End Date Luz Maria Gama DO [address] [place] [facility] [place] [address] PCP - General Family Medicine 01/04/23 documented as of this encounter
--- OUTSIDE RECORDS SUMMARY | 2024-05-06 15:29 | External Medical Summary | Summary of Care ---
Author Name Unknown Organization [facility] Address [address] [facility] [address] Phone [phone] Care Team Providers Care Professor Of Radiology Name Role Phone Luz Maria Gama Primary Care Provider [phone] Reason for Visit * Reason Onset Date Comments Medication Refill 04/24/2024 Encounter Details Date Type Department Care Team (Late st Contact Info) Description 04/24/2024 Refill Hematology/Oncology [facility] 200 [facility] [place] [address] Shay Song MD 200 [facility] [place] [address] Glioblastoma (HCC)* Allergies No known active allergiesdocumented [...] opioid overdose. Seek medical help immediately. [email or web address] 1 mL 3 11/18/2023 Active Aspirin 81 [...] below 140/90,Ischemic cardiomyopathy,Beltrán ry artery disease involving mechoopda coronary artery of mechoopda heart without angina pectoris,Dyslipidemia , goal LDL [...] Miscellaneous Notes * Telephone Encounter - Martha Rivera RPh - 04/24/2024 2:33 PM EDT Cycle 2 lomustine refill sent to [facility]. Anticipated to start 05/05/24. Dose increase to 200 mg by mouth once Aubrie WilsonD, BCOP Ambulatory Clinical Pharmacist | Oral Chemotherapy Clinic [facility] 04/24/2024, 2:35 PM documented in this encounter Plan of Treatment Upcoming Encounters Date Type Department Care Team (Latest Contact Info) Description 04/24/2024 3:45 PM EDT Pharmacy Pharmacy Hematology Oncology [address] [address] [facility] Hem/Onc [address] [place] [address] Glioblastoma (HCC)* 04/27/2024 3:45 PM EDT Pharmacy Pharmacy Hematology Oncology [address] [address] [facility] Hem/Onc [address] [place] [address] 05/03/2024 11:00 AM EDT Laboratory Laboratory Garry Jaffe [place] 200 [place] [address] Alannah, Lab Scenery [address] [place], [place] [address] 05/03/2024 12:00 PM EDT Hem/Onc Treatment Hematology/Oncolog y Treatment, [place] 200 [facility], [place] [address] Alannah, Chair 6 Hem Onc Scenery [address] [place], [place] [address] 05/17/2024 11:00 AM EDT Laboratory Laboratory [facility] Al[place] [address] [place] [address] Alannah, Lab [facility] [address] [facility] [place], [place] [address] 05/17/2024 11:30 AM EDT Office Visit Hematology/Oncolog y [facility] [place] [address] [place], [place] [phone] Anuja Cortez CRNP [address] [place] [address] 05/17/2024 12:00 PM EDT Hem/Onc Treatment Hematology/Oncolog y Treatment, [place] 200 [facility], [place] [phone] Alannah, Chair 11 Hem Onc Scenery [address] [place], [place] [address] 05/17/2024 12:30 PM EDT Office Visit Palliative Medicine [facility] [place] 200 [facility], [place] [phone] Keisha Tompkins MD [address] [place] [address] 05/23/2024 4:00 PM EDT Imaging Radiology [address], [place] 132 [facility] [place] [address] 05/31/2024 10:40 AM EDT Laboratory Laboratory [facility] [place] [address] [place] [phone] Alannah, [facility] Scene [address] [place] [address] 05/31/2024 11:15 AM EDT Office Visit Hematology/Oncolog y [facility] [place] [address] [place] [phone] Shay Song MD [address] [place] [address] 05/31/2024 11:45 AM EDT Hem/Onc Treatment Hematology/Oncolog y [facility] [place] [address] [place] [address] 06/13/2024 11:00 AM EDT Office Visit Audiology [facility] [address] [place] [address] Gloria Oropeza Au.D. [address] [facility] [place] [address] 06/19/2024 11:15 AM EDT Telemedicine Neurosurgery, [place] [address] [place] [address] Clinic, Brain Tumor Multidisciplinar y [address] [place] [address] 06/28/2024 9:50 AM EDT Office Visit [facility] [address] [place] [phone] Luz Maria Gama, [address] [place], [place] [phone] Scheduled Procedures Name Priority Associated Diagnoses Date/Ti [...] Primary Malignant neoplasm of brain, unspecified site Glioblastoma (HCC)- Primary Malignant neoplasm of brain, unspecified site documented in this encounter Advance Directives Documents on File Type Date Recorded Patient Rehab Aid Expl anation Advance Directives and Living Will 02/25/2024 Candi Mulligan signed on 11/06/2023 ADVANCE DIRECTIVE / LIVING WILL COMBINED LIVING WILL & HEALTH CARE POWER OF DIRECTOR DIGITAL SALES POLST 12/03/2023 9:15 AM sign date 12/01/2023 [...] the patient have Health Care Power of Pasta Press Operator? No * Full Code Date Activated [...] Care Agent (per Health Care Power of Pasta Press Operator document) Care Teams Professor Of Radiology Relationship Specialty Start Date End Date Luz Maria Gama DO [address] [place] [address] PCP - General Family Medicine 01/04/23 documented as of this encounter"
--- OUTSIDE RECORDS SUMMARY | 2024-05-06 15:29 | External Medical Summary | Summary of Care ---
Author Name Unknown Organization [facility] Address [address] [place] [address] Phone [phone] Care Team Providers Care Auto Radio Mechanic Name Role Phone Luz Maria Gama Primary Care Provider Reason for Visit * Reason Comments Medication Management Encounter Details Date Type Department Care Team (Late st Contact Info) Description 04/19/2024 3:30 PM EDT Pharmacy Pharmacy Hematology Oncology [facility] [address] [place] [address] [facility], [facility] Hem/Onc [address], [place] [id number] Glioblastoma (HCC)* Allergies No known active allergiesdocumented [...] opioid overdose. Seek medical help immediately. 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 Take on an empty stomach at bedtime 4 Capsule 04/19/2024 Active documented as of this encounter [...] CX OM3 on 08/16/2015 Former smoker 08/17/2015 Rosamelissaa 01/10/2014 documented as of this encounter (statuses [...] mRNA, LNP-s, No Pre serve, 2-Dose Series (Remote Assistant) 12/02/2020,10/28/2020 Pneumococcal Polysaccharide PPV23 (Pneumovax) Seasonal Influenza, [...] this encounter Progress Notes * Martha Rivera, [facility] - 04/19/2024 1:45 PM EDT MEDICATION THERAPY MANAGEMENT LOMUSTINE TREATMENT PROGRESS NOTE Remy Lujan [id number] Patient Phone Numbers [facility] [phone] Significant Other: Candi Communication: Chart review Treatment: [...] stomach at bedtime Start Date: 03/24/24 Primary Ash Conveyor Operator/Oncologist: Dr. Shay Song Additional Therapy: Bevacizumab Supportive Care Meds: Ondansetron Miralax Senna Prophylactic Meds: Consider PJP ppx for ALC < 0.5 - patient was on Bactrim previously Relevant Chronic Medications: Category Medications Pertinent Notes Antihypertensives Lisinopril Metoprolol Anticoagulation Aspirin Cycle Dates C1 03/24/24 C2 05/05/24 (Anticipated) Treatment History: Resection 2/21/24 TMZ+RT completed 01/24/24 Treatment Dose Adjustment/Hold History: [...] not due for next dose until 05/05 Assessment of compliance: compliant Assessment of adverse effects attributed to drug therapy: N/A Dose adjustment needed based on lab or adverse drug reaction? No Follow up: 1 week Martha Rivera, AubrieD, BCOP Ambulatory Clinical Pharmacist | Oral Chemotherapy Clinic [facility] 04/19/2024, 1:51 PM Monitoring Parameters: Estimated CrCl Serum creatinine: [...] Care Team (Late st Contact Info) Description 04/26/2024 3:45 PM EDT Pharmacy Pharmacy Hematology Oncology [facility] [address] [place] [address] [facility], [facility] Hem/Onc [address] [place] [address] 05/03/2024 11:00 AM EDT Laboratory Laboratory [facility] [place] [address] [place] [address] [place], Lab [facility] [address] [place] [address] 05/03/2024 12:00 PM EDT Hem/Onc Treatment Hematology/Oncology Treatment, [place] [address] [facility], [place] [phone] Park, Chair 6 Hem Onc Scenery [address] [place], [place] [address] 05/17/2024 11:00 AM EDT Laboratory Laboratory [facility] [place] [address] [place], [place] [address] [place], Lab Scenery [address] [place], [place] [address] 05/17/2024 12:00 PM EDT Hem/Onc Treatment Hematology/Oncology Treatment, [place] [address] [facility], [place] [phone] Al[place], Chair 11 Hem Onc Scenery [address] [place], [place] [address] 05/23/2024 4:00 PM EDT Imaging Radiology [address] [place] [address] 05/31/2024 10:40 AM EDT Laboratory Laboratory [facility] [place] [address] [place], [place] [phone] [place], Lab Scenery [address] [place], [place] [address] 05/31/2024 11:15 AM EDT Office Visit Hematology/Oncology [facility] [place] [address] [place], [place] [phone] Shay Song MD [address] [place], [place] [address] 05/31/2024 11:45 AM EDT Hem/Onc Treatment Hematology/Oncology Treatment, [place] [address] [facility], [place] [phone] 06/13/2024 11:00 AM EDT Office Visit Audiology [facility] 132 [facility] [place] [address] Gloria Oropeza Au.D. [address] [place] [address] 06/19/2024 11:15 AM EDT Office Visit Neurosurgery, [place] [address] [place] [address] Clinic, Brain Tumor Multidisciplinary [address] [place] [address] 06/28/2024 9:50 AM EDT Office Visit [facility] [address] [place] [address] Luz Maria Gama DO [address] [place] [address] Scheduled Procedures Name Priority Associated Diagnoses Date/Ti [...] Documents on File Type Date Recorded Patient Desizing Pad Operator Expl anation Advance Directives and Living Will 02/25/2024 Candi Mulligan signed on 11/06/2023 ADVANCE DIRECTIVE / LIVING WILL COMBINED LIVING WILL & HEALTH CARE POWER OF COMMERCIAL LEASE ADMINISTRATOR POLST 12/03/2023 9:15 AM sign date 12/01/2023 [...] patient have Health Care Power of Medication Administration Professional? No * Full Code Date Activated Date [...] Agent (per Health Care Power of Medication Administration Professional document) [email or web address] Auto Radio Mechanic Relationship Specialty Start Date End Date Luz Maria Gama DO [address] [facility] [address] PCP - General Family Medicine 01/04/23 documented as of this encounter"
--- OUTSIDE RECORDS SUMMARY | 2024-05-06 15:30 | External Medical Summary | Summary of Care ---
Author Name Unknown Organization [facility] Address [address] [facility] [place] [address] Phone [phone] Care Team Providers Care Dog Obedience Instructor Name Role Phone Luz Maria Gama Primary Care Provider Reason for Visit * Reason Onset Date Comments Medication Refill 04/03/2024 Encounter Details Date Type Department Care Team (Late st Contact Info) Description 04/03/2024 Refill Hematology/Oncology [facility] [address] [facility] [place] [phone] Shay Song MD [address] [place] [address] Glioblastoma (HCC) Allergies No known active allergiesdocumented as of this encounter (statuses as of 04/06/2024) Medications Medication Sig Dispensed Refills Start Date End Date Status nitroglycerin (NITROSTAT) 0.[address] 1 Tab under the tongue every 5 minutes as needed for Pain, Chest. 90 Tab 12 5 Active buPROPion HCl ER (SR) 150 MG Oral Tablet Extended Release 12 Hour (Wellbutrin SR)Indications:Adj ustment disorder with depressed mood Take 1 tab by mouth twice per day 180 Tablet 1 3 Active Lisinopril 20 MG Oral Tablet (Prinivil)Indicati ons:HTN, goal below 140/90 Take 1 Tablet by mouth in the morning. 90 Tablet 3 4 Active CPAP every night at bedtime. Active Naloxone HCl 0.4 MG/ML Injection Solution (Narcan)Indication s:Brain tumor (HCC),Brain mass Inject 1mL into a large muscle for suspected opioid overdose. Seek medical help immediately. http://youtu.b [email or web address] 1 mL 3 4 Active Omeprazole 40 MG Oral Capsule Delayed Release (PriLOSEC) Take 1 Capsule by mouth in the morning. 4 Active dexAMETHasone 4 MG Oral Tablet (Decadron) Take 1 Tablet by mouth 2 times a day with morning and evening meals. 4 Active Doxycycline Monohydrate 50 MG Oral CapsuleIndications :Rosacea Take 1 capsule by mouth once daily 90 Capsule 1 4 Active Aspirin 81 MG Oral Tablet [...] below 140/90,Ischemic cardiomyopathy,Cor onary artery disease involving [place]ne[place] coronary artery of chenega heart without angina pectoris,Dyslipide kavon, goal LDL [...] 24 hours. 60 Tablet 1 4 Active Lomustine 40 MG Oral Capsule (Ceenu)Indications :Glioblastoma (HCC) Take 4 Capsules by mouth every 6 weeks. Take on an empty stomach at bedtime 4 Capsule 4 Active dexAMETHasone 2 MG Oral Tablet (Decadron)Indicati ons:Glioblastoma (HCC) Take 1 Tablet by mouth 2 times a day with morning and evening meals. 60 Tablet 1 4 Active Omeprazole 20 MG Oral Capsule Delayed Release (PriLOSEC)Indicati ons:Glioblastoma (HCC) Take 2 Capsules by mouth in the morning. 60 Capsule 5 4 Active busPIRone HCl 10 MG Oral Tablet (Buspar)Indication s:Anxiety state Take 1 Tablet by mouth 2 times a day as needed for Agitation or Anxiety. 60 Tablet 2 4 Active Naloxone HCl 4 MG/0.1ML Nasal Liquid (Narcan Nasal) Administer 1 spray into 1 nostril for suspected opioid overdose. Seek immediate medical attention. https://www.Where Was it Filmed.[employer]/MyNewPlacec h?[email or web address] I 1 Each 3 4 04/05/20 24 Discontinued Sulfamethoxazole-T rimethoprim 800-160 MG Oral Tablet (Bactrim DS) Every other day during radiation 4 04/05/20 24 Discontinued Morphine Sulfate 30 MG Oral [...] 30 Tablet 4 04/05/20 24 Discontinued(Re fill) documented as of this encounter (statuses as of 04/06/2024) Active Problems Problem Noted Date Diagnosed Date [...] as of this encounter (statuses as of 04/06/2024) Resolved Problems Problem Noted Date Diagnosed Date [...] as of this encounter (statuses as of 04/06/2024) Immunizations Name Administration Dates Next Due COVID-19 mRNA, LNP-s, No Pre serve, 2-Dose Series ([email or web address]) 12/02/2020,10/28/2020 Pneumococcal Polysaccharide PPV23 (Pneumovax) 09 / Seasonal Influenza, PF, 6 M & above, [...] Telephone Encounter - Gege Gracia LPN - 04/04/2024 2:24 PM EDT My G sent. * Telephone Encounter - Gege Gracia LPN - 04/04/2024 2:16 PM EDT Called and spoke with pharmacy general manager at [facility], she states the patient picked uphis refill on 03/24/2024. She reports the patient can continuous pickling line pickler helper his next refill on 04/21/2025 per the insurance. Will make patient aware. documented in this encounter Plan of Treatment Upcoming Encounters Date Type Department Care Team (Late st Contact Info) Description 04/19/2024 11:30 AM EDT Laboratory Laboratory [address] [place] [phone] [address] [place] [address] 04/19/2024 12:00 PM EDT Office Visit Hematology/Oncology [address] [place] [phone] Anuja Cortez CRNP [address] [place] [address] 04/19/2024 12:30 PM EDT Hem/Onc Treatment Hematology/Oncology Treatment, [address] [address] 04/19/2024 2:00 PM EDT Office Visit Palliative Medicine [address] [place] [phone] Nathalie Nichole PA-C [address] [place] [address] 04/19/2024 3:30 PM EDT Pharmacy Pharmacy Hematology Oncology [facility], [place] [address] [place] [address] [facility], [facility] Clinic Hem/Onc [address] [place] [address] 05/23/2024 4:00 PM EDT Imaging Radiology [facility], [place] [address] [facility] [place] [address] 06/13/2024 11:00 AM EDT Office Visit Audiology [facility] [address] [place] [address] Gloria Oropeza Au.D. [address] [place] [address] 06/19/2024 11:15 AM EDT Office Visit Neurosurgery, [place] [address] [place] [address] Clinic, Brain Tumor Multidisciplinary [address] [place] [address] 06/28/2024 9:50 AM EDT Office Visit [facility] [address] [place] [phone] Luz Maria Gama DO [address] [place] [address] Scheduled Procedures Name Priority Associated Diagnoses Date/Ti [...] Documents on File Type Date Recorded Patient Community Organization Worker Expl anation Advance Directives and Living Will 02/25/2024 Candi Mulligan signed on 11/06/2023 ADVANCE DIRECTIVE / LIVING WILL COMBINED LIVING WILL & HEALTH CARE POWER OF SALES SUPPORT REP POLST 12/03/2023 9:15 AM sign date 12/01/2023 [...] the patient have Health Care Power of Netbackup Administrator? No * Full Code Date Activated Date [...] Care Agent (per Health Care Power of Netbackup Administrator document) Care Teams Dog Obedience Instructor Relationship Specialty Start Date End Date Luz Maria Gama DO [address] [place] [facility] [place] [address] PCP - General Family Medicine 01/04/23 documented as of this encounter
--- OUTSIDE RECORDS SUMMARY | 2024-05-06 15:30 | External Medical Summary | Summary of Care ---
Author Name Unknown Organization [facility] Address [address] [place] [address] Phone [phone] Care Team Providers Care Battery Tester Field Name Role Phone Luz Maria Gama Primary Care Provider Reason for Visit * Reason Comments Medication Management Encounter Details Date Type Department Care Team (Late st Contact Info) Description 04/05/2024 3:30 PM EDT Pharmacy Pharmacy Hematology Oncology [facility] [address] [place] [address] [facility], [facility] Clinic Hem/Onc [address] [place], [place] [id number] Glioblastoma (HCC)* Allergies No known active allergiesdocumented as of this encounter (statuses as of 04/05/2024) Medications Medication Sig Dispensed Refills Start Date End Date Status nitroglycerin (NITROSTAT) 0.[address] 1 Tab under the tongue every 5 minutes as needed for Pain, Chest. 90 Tab 12 08/17/2015 Active buPROPion HCl ER (SR) 150 MG Oral Tablet Extended Release 12 Hour (Wellbutrin SR)Indications:Adjust ment disorder with depressed mood Take 1 tab by mouth twice per day 180 Tablet 1 06/24/2023 Active Lisinopril 20 MG Oral Tablet (Prinivil)Indications :HTN, goal below 140/90 Take 1 Tablet by mouth in the morning. 90 Tablet 3 11/04/2023 Active CPAP every night at bedtime. Active Naloxone HCl 0.4 MG/ML Injection Solution (Narcan)Indications:B rain tumor (HCC),Brain mass Inject 1mL into a large muscle for suspected opioid overdose. Seek medical help immediately. http://youtu.be/ [email or web address] 1 mL 3 11/18/2023 Active Omeprazole 40 MG Oral Capsule Delayed Release (PriLOSEC) Take 1 Capsule by mouth in the morning. 12/27/2023 Active dexAMETHasone 4 MG Oral Tablet (Decadron) Take 1 Tablet by mouth 2 times a day with morning and evening meals. 12/27/2023 Active Doxycycline Monohydrate 50 MG Oral CapsuleIndications:Ro sacea Take 1 capsule by mouth once daily 90 Capsule 1 01/10/2024 Active Aspirin 81 MG Oral Tablet ChewableIndications:I [...] below 140/90,Ischemic cardiomyopathy,Beltrán ry artery disease involving te-[place] coronary artery of te-mo[place] heart without angina pectoris,Dyslipidemia , goal LDL [...] stomach at bedtime 4 Capsule 03/03/2024 Active dexAMETHasone 2 MG Oral Tablet (Decadron)Indications :Glioblastoma (HCC) Take 1 Tablet by mouth 2 times a day with morning and evening meals. 60 Tablet 1 03/16/2024 Active Omeprazole 20 MG Oral Capsule Delayed [...] Severe. Continued script 84 Tablet 04/05/2024 Active documented as of this encounter (statuses as of 04/05/2024) Active Problems Problem Noted Date Diagnosed Date [...] as of this encounter (statuses as of 04/05/2024) Resolved Problems Problem Noted Date Diagnosed Date [...] as of this encounter (statuses as of 04/05/2024) Immunizations Name Administration Dates Next Due COVID-19 [...] this encounter Progress Notes * Martha Rivera, [facility] - 04/05/2024 1:53 PM EDT MEDICATION THERAPY MANAGEMENT LOMUSTINE TREATMENT PROGRESS NOTE Remy Lujan [phone] Patient Phone Numbers G[place] [phone] Significant Other: Candi Communication: Spoke to: Other: [...] stomach at bedtime Start Date: 03/24/24 Primary Sack Keeper/Oncologist: Dr. Shay Song Additional Therapy: Bevacizumab Supportive [...] have labs complete q2w with bevacizumab treatments Candi reports that Remy started lomustine on 03/24/24 and that tolerated Cycle 1 well overall Reports that he did not feel well on 03/25 and 03/26 after taking dose. He did not experience any nausea or vomiting Changes to medication list since last visit? No Drug interaction assessment: Treatment plan and current medication list evaluated for drug-drug interactions. No clinically significant drug interaction identified Assessment and Plan: Labs are stable Next labs scheduled for 04/19 - will follow-up at that time Assessment of compliance: compliant Assessment of adverse effects attributed to drug therapy: N/A Dose adjustment needed based on lab or adverse drug reaction? No Follow up: 2 weeks Martha Rivera, PharmD, BCOP Ambulatory Clinical Pharmacist | Oral Chemotherapy Clinic [facility] 04/05/2024, 1:53 PM Monitoring Parameters: Estimated CrCl Serum creatinine: 0.9 mg/dL 04/05/24 1052 Estimated creatinine clearance: 134 mL/min Hepatitis panel Complete 02/28/24 Not immune to hepatitis B virus Suggested lab monitoring CBCd and CMP weekly Treatment Parameters Please refer to PI Pertinent labs: Latest Reference Range & Units 02/28/24 12:16 03/22/24 10:41 04/05/24 10:52 WBC 4.00 - 10.80 K/uL 5.74 19.91 (H) 8.58 RBC 4.50 - 5.25 M/uL 4.19 4.47 4.36 HGB 14.0 - 16.8 g/dL 12.9 (L) 14.1 13.5 (L) HCT 40.0 - 48.4 % 38.5 (L) 42.7 41.2 MCV 82.0 - 99.5 fL 91.9 95.5 94.5 MCH 27.0 - 34.0 pg 30.8 31.5 31.0 MCHC 32.0 - 36.0 g/dL 33.5 33.0 32.8 RDW 11.5 - 15.5 % 13.8 14.6 14.7 PLT 140 - 400 K/uL 292 263 239 MPV 6.6 - 11.1 fL 10.1 9.5 9.1 CBC WITH WBC DIFFERENTIAL Rpt ! Rpt ! Rpt ! Absolute Neutrophils 1.80 - 7.70 K/uL 3.84 16.53 (H) 6.84 Absolute Lymphocytes 1.00 - 4.80 K/ul 1.14 2.39 1.02 (H): Data is abnormally high (L): Data is abnormally low !: Data is abnormal Rpt: View report in Results Review for more information Latest Reference Range & Units 02/28/24 12:16 03/22/24 10:41 04/05/24 10:52 Albumin 3.8 - 5.0 g/dL 4.3 4.1 3.9 AST 10 - 50 U/L 33 19 18 ALT 10 - 50 U/L 46 39 43 Alkaline Phosphatase 35 - 130 U/L 88 81 76 Bilirubin, Total <=1.2 mg/dL 0.5 0.4 0.3 Time Spent on Encounter: 6 - 10 [...] Description 04/19/2024 11:30 AM EDT Laboratory Laboratory [facility] [place] [address] [facility] [place] [phone] [place] [facility] [place] [address] 04/19/2024 12:00 PM EDT Office Visit Hematology/Oncology [place] 200 [facility] [place] [address] Anuja Cortez CRNP [address] [place] [address] [place] [phone] 04/19/2024 12:30 PM EDT Hem/Onc Treatment Hematology/Oncology Treatment, [place] 200 [place] [address] 04/19/2024 2:00 PM EDT Office Visit Palliative Medicine [facility] 200 [place] [address] Nathalie Nichole PA-C [address] [place] [address] [place] [address] 04/19/2024 3:30 PM EDT Pharmacy Pharmacy [facility]ematology [facility], [address] [address] [facility] Hem/Onc [facility] [place] [address] 05/23/2024 4:00 PM EDT Imaging Radiology [address] 132 [facility] [place] [address] 06/13/2024 11:00 AM EDT Office Visit Audiology [facility] 132 [facility] [place] [address] Gloria Oropeza Au.D. 132 [facility] [place] [address] 06/19/2024 11:15 AM EDT Office Visit Neurosurgery, [place] [address] [place] [address] Clinic, Brain Tumor Multidisciplinary [address] [place] [address] 06/28/2024 9:50 AM EDT Office Visit [place] [address] [place] [phone] Luz Maria Gama, [address] [place] [address] Scheduled Procedures Name Priority Associated Diagnoses Date/Ti me COLONOSCOPY FLEXIBLE PROXIMA L DIAGNOSTIC Recall Encounter for screening colonoscopy Health Maintenance Due Date Last Done Comments COVID-19 Vaccine (2022-10 4 season) 2023 06/08/2021, 12/02/2020, 10/28/2020 Influenza [...] Documents on File Type Date Recorded Patient Restaurant Manager Expl anation Advance Directives and Living Will 02/25/2024 Candi Mulligan signed on 11/06/2023 ADVANCE DIRECTIVE / LIVING WILL COMBINED LIVING WILL & HEALTH CARE POWER OF DIGITAL MARKETING LEAD POLST 12/03/2023 9:15 AM sign date 12/01/2023 [...] the patient have Health Care Power of Cellular Phone Repairer? No * Full Code Date Activated Date [...] Care Agent (per Health Care Power of Cellular Phone Repairer document) [email or web address] Care Teams Battery Tester Field Relationship Specialty Start Date End Date Luz Maria Gama DO [address] [place] [address] PCP - General Family Medicine 01/04/23 documented as of this encounter"
--- OUTSIDE RECORDS SUMMARY | 2024-05-06 15:30 | External Medical Summary | Summary of Care ---
Author Name Unknown Organization [facility] Address [address] [facility] [address] Phone [phone] Care Team Providers Care Bilingual Speech Therapist Name Role Phone Luz Maria Gama Primary Care Provider [phone] Reason for Visit * Reason Comments Outpatient Testing Encounter Details Date Type Department Care Team (Late st Contact Info) Description 04/05/2024 10:30 AM EDT Laboratory Laboratory [facility] [place] [address] [place] [phone] [place], Lab Scenery [address] [place] [address] Glioblastoma (HCC) Allergies No known active allergiesdocumented [...] suspected opioid overdose. Seek medical help immediately. [email or web address] 1 mL 3 11/18/2023 Active Naloxone HCl 4 MG/0.1ML Nasal Liquid (Narcan Nasal) Administer 1 spray into 1 nostril for suspected opioid overdose. Seek immediate medical attention. https://www.YOUnite.com/watch?v= [email or web address] 1 Each 3 11/18/2023 Active Omeprazole 40 MG Oral Capsule Delayed Release (PriLOSEC) Take 1 Capsule by mouth in the morning. 12/27/2023 Active dexAMETHasone 4 MG Oral Tablet (Decadron) Take 1 Tablet by mouth 2 times a day with morning and evening meals. 12/27/2023 Active Sulfamethoxazole-Trim ethoprim 800-160 MG Oral Tablet (Bactrim DS) Every other day during radiation 12/27/2023 Active Doxycycline Monohydrate 50 MG Oral [...] below 140/90,Ischemic cardiomyopathy,Beltrán ry artery disease involving king salmon coronary artery of king salmon heart without angina pectoris,Dyslipidemia , goal LDL [...] for Pain, Severe. Continued script 60 Tablet 03/22/2024 Active Morphine Sulfate ER 60 MG Oral Tablet Extended Release (Ms Contin)Indications:Ca ncer related pain Take 1 Tablet by mouth in the morning and 1 Tablet before bedtime. 30 Tablet 03/22/2024 Active busPIRone HCl 10 MG Oral Tablet (Buspar)Indications:A nxiety state Take 1 Tablet by mouth 2 times a day as needed for Agitation or Anxiety. 60 Tablet 2 03/22/2024 Active documented as of this encounter (statuses [...] Team (Late st Contact Info) Description 04/05/2024 11:30 AM EDT Hem/Onc Treatment Hematology/Oncology [address], [address] [phone] [place], Chair 11 Hem Onc [address] [address] Arrived 04/05/2024 2:00 PM EDT Office Visit Palliative Medicine [facility] [place] [address] [address] Keisha Tompkins MD [address] [place], [place] [address] [address] 04/05/2024 3:30 PM EDT Pharmacy Pharmacy Hematology Oncology [place] [address] [place] [address] [facility], [facility] Clinic Hem/Onc [address] [place] [address] 04/19/2024 11:30 AM EDT Laboratory Laboratory [facility] Jeff [address] [place] [phone] [place], Lab [facility] [address] [place] [address] 04/19/2024 12:00 PM EDT Office Visit Hematology/Oncology [facility] Jeff 200 [facility] JeffM[place] [phone] Anuja Cortez, OSVALDO [address] [place] [address] 04/19/2024 12:30 PM EDT Hem/Onc Treatment Hematology/Oncology Treatment, Jeff [address] [place] [phone] 05/23/2024 4:00 PM EDT Imaging Radiology [address] 132 [facility] [place] [address] 06/13/2024 11:00 AM EDT Office Visit Audiology [facility] 132 [facility] [place] [address] Gloria Oropeza Au.D. 132 [facility] [place] [address] 06/19/2024 11:15 AM EDT Office Visit Neurosurgery, [place] [address] [place] [address] Clinic, Brain Tumor Multidisciplinary [address] [place] [address] 06/28/2024 9:50 AM EDT Office Visit [address] [address] Luz Maria Gama, DO [address] [place] [address] Pending Results Name Type Priority Associated Diagnoses Date /Time CBC WITH WBC DIFFERENTIAL Lab STAT Glioblastoma (HCC) 04/05/2024 10:52 AM EDT COMPREHENSIVE METABOLIC PANEL Lab STAT Glioblastoma (HCC) 04/05/2024 10:52 AM EDT CBC Lab STAT Glioblastoma (HCC) 04/05/2024 10:52 AM EDT DIFFERENTIAL, AUTOMATED Lab STAT Glioblastoma (HCC) 04/05/2024 10:52 AM EDT Scheduled Procedures Name Priority Associated [...] Diagnosis Comments URINALYSIS, REFLEX TO MICROSCOPIC STAT 04/05/2024 10:53 AM EDT Glioblastoma (HCC) documented in this encounter Results * URINALYSIS, REFLEX TO MICROSCOPIC (04/05/2024 10:53 AM EDT) Color, Urine Yellow Light Yellow, Yellow, Dark Yellow 04/05/2024 11:00 AM EDT [facility]02 Clarity, Urine Clear Clear 04/05/2024 11:00 AM EDT [facility] Glucose, Urine Negative Negative mg/dL 04/05/2024 11:00 AM EDT [facility] 56[facility]02 Bilirubin, Urine Negative Negative 04/05/2024 11:[address]T [address] Ketone, Urine Negative Negative mg/dL 04/05/2024 11:[address]T [address] Specific [place], Urine 1.015 1.003 - 1.030 04/05/2024 11:[address] AM EDT [address] Blood, Urine Negative Negative 04/05/2024 11:[address] EDT [address] pH, Urine 6.0 5.0 - 7.5 Units 04/05/2024 11:00 AM EDT [address] Protein, Urine Negative Negative mg/dL 04/05/2024 11:[address] AM EDT [address] Urobilinogen, Urine 0.2 0.2, 1.0 mg/dL 04/05/2024 11:00 AM EDT [address] Nitrite, Urine Negative Negative 04/05/2024 11:[address] EDT [address] Esterase, Urine Negative Negative 11:00 AM EDT [address] Comment, Urine 04/05/2024 11:00 AM EDT [address] Comment:Screen negative - Mi croscopic not performed. 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 No * Full Code Date Activated [...] Care Agent (per Health Care Power of Caramel Coloring Operator document) [email or web address] Care Teams Bilingual Speech Therapist Relationship Specialty Start Date End Date Luz Maria Gama DO [address] [place] [facility] [place] [address] PCP - General Family Medicine 01/04/23 documented as of this encounter
--- OUTSIDE RECORDS SUMMARY | 2024-05-06 15:30 | External Medical Summary ---
Author Name Unknown Address Unknown Organization [facility] [place] [address] Laboratory Report Ordering Provider Test Date Status BRIANNA VELAZQUEZ 04/19/2024 11:39:30 Final Observation Date Value Abnormality Reference (Units ) Status Color of Urine by Auto 04/19/2024 11:39:30 Yellow Light Yellow, Yellow, Dark Yellow Final Clarity, Urine 04/19/2024 11:39:30 Clear Clear Final Glucose [Mass/volume] in Urine by Automated test strip 04/19/2024 11:39:30 Negative Negative (mg/dL) Final Bilirubin.total [Presence] in Urine by Automated test strip 04/19/2024 11:39:30 Negative Negative Final Ketones [Mass/volume] in Urine by Automated test strip 04/19/2024 11:39:30 Negative Negative (mg/dL) Final Specific gravity, Urine 04/19/2024 11:39:30 1.015 1.003-1.030 Final Hemoglobin [Presence] in Urine by Automated test strip 04/19/2024 11:39:30 Negative Negative Final pH, Urine 04/19/2024 11:39:30 7.0 5.0-7.5 (Units) Final Protein [Mass/volume] in Urine by Automated test strip 04/19/2024 11:39:30 Negative Negative (mg/dL) Final Urobilinogen [Mass/volume] in Urine by Automated test strip 04/19/2024 11:39:30 0.2 0.2, 1.0 (mg/dL) Final Nitrite [Presence] in Urine by Automated test strip 04/19/2024 11:39:30 Negative Negative Final Leukocyte esterase [Presence] in Urine by Automated test strip 04/19/2024 11:39:30 Negative Negative Final Annotation Comment 04/19/2024 11:39:30 Final Screen negative - Microscopi c not performed. Performing Location [facility] Garry Mccormick [place] [address]
--- OUTSIDE RECORDS SUMMARY | 2024-05-06 15:30 | External Medical Summary | Summary of Care ---
Author Name Unknown Organization [facility] Address [address] [facility] [address] Phone [phone] Care Team Providers Care Rn Cardiology Name Role Phone Nicole Gama DO Primary Care Provider [phone] Reason for Visit * Reason Comments Medication Refill Encounter Details Date Type Department Care Team (Late st Contact Info) Description 04/16/2024 Refill [place] [address] [place] [phone] Nicole Marquez DO [address] [place] [address] Adjustment disorder with depressed mood Allergies No known active allergiesdocumented as of this encounter (statuses as of 04/17/2024) Medications Medication Sig Dispensed Refills Start Date [...] opioid overdose. Seek medical help immediately. [email or web address] 1 mL 3 11/18/2023 Active Omeprazole 40 MG Oral Capsule Delayed Release (PriLOSEC) Take 1 Capsule by mouth in the morning. 12/27/2023 Active dexAMETHasone 4 MG Oral Tablet (Decadron) Take 1 Tablet by mouth 2 times a day with morning and evening meals. 12/27/2023 Active Doxycycline Monohydrate 50 MG Oral CapsuleIndications:R osacea Take 1 capsule by mouth once daily 90 Capsule 1 01/10/2024 Active Aspirin 81 MG Oral Tablet ChewableIndications: [...] below 140/90,Ischemic cardiomyopathy,Coron christiane artery disease involving [place] coronary artery of [place] heart without angina pectoris,Dyslipidemi a, goal LDL [...] 03/03/2024 Active Lomustine 40 MG Oral Capsule (Ceenu)Indications:G lioblastoma (HCC) Take 4 Capsules by mouth every 6 weeks. Take on an empty stomach at bedtime 4 Capsule 03/03/2024 Active dexAMETHasone 2 MG Oral Tablet (Decadron)Indication [...] Severe. Continued script 84 Tablet 04/05/2024 Active buPROPion HCl ER (SR) 150 MG Oral Tablet Extended Release 12 Hour (Wellbutrin SR)Indications:Adjus tment disorder with depressed mood Take 1 tab by mouth twice per day 180 Tablet 1 04/17/2024 Active buPROPion HCl ER (SR) 150 MG Oral Tablet Extended Release 12 Hour (Wellbutrin SR)Indications:Adjus tment disorder with depressed mood Take 1 tab by mouth twice per day 180 Tablet 1 06/24/2023 Discontinue d(Refill) documented as of this encounter (statuses as of 04/17/2024) Active Problems Problem Noted Date Diagnosed Date [...] as of this encounter (statuses as of 04/17/2024) Resolved Problems Problem Noted Date Diagnosed Date [...] as of this encounter (statuses as of 04/17/2024) Immunizations Name Administration Dates Next Due COVID-19 [...] encounter Miscellaneous Notes * Telephone Encounter - Aden Singh RPh - 04/17/2024 12:25 PM EDT Signed Prescriptions: Disp Refills buPROPion HCl ER (SR) 150 MG Oral Tablet E*180 Ta*1 Sig: Take 1 tab by mouth twice per dayAuthorizing Provider: NICOLE GAMA User: ADEN SINGH documented in this encounter Plan of Treatment Upcoming Encounters Date Type Department Care Team (Late st Contact Info) Description 04/19/2024 11:30 AM EDT Laboratory Laboratory [facility] [place] [address] [place], [place] [phone] Cristobal Jaffe [facility] 200 [facility] [place], [place] [address] 04/19/2024 12:00 PM EDT Office Visit Hematology/Oncology [facility] 200 [facility] [place] [address] Anuja Cortez CRNP [address] [place] [address] 04/19/2024 12:30 PM EDT Hem/Onc Treatment Hematology/Oncology Treatment, [place] 200 [facility], [place] [address] 04/19/2024 2:00 PM EDT Office Visit Palliative Medicine [facility] 200 [facility], [place] [phone] Nathalie Nichole PADenC [address] [place] [address] 04/19/2024 3:30 PM EDT Pharmacy Pharmacy Hematology Oncology [address] [address] [facility], [facility] Clinic Hem/Onc [facility] [place] [address] 05/23/2024 4:00 PM EDT Imaging Radiology [address] 132 [facility] [place] [address] 06/13/2024 11:00 AM EDT Office Visit Audiology [facility] 132 [facility] [place] [address] Gloria Oropeza Au.D. [address] [place] [address] 06/19/2024 11:15 AM EDT Office Visit Neurosurgery, [place] [address] [place] [address] Clinic, Brain Tumor Multidisciplinary [address] [place] [address] 06/28/2024 9:50 AM EDT Office Visit [facility] [address] [place] [phone] Nicole Gama, DO [address] [place], [place] [phone] Scheduled Procedures Name Priority Associated Diagnoses Date/Ti [...] as of this encounter Visit Diagnoses Diagnosis Adjustment disorder with depressed mood documented in this encounter Advance Directives Documents on File Type Date Recorded Patient Trouble Locater Expl anation Advance Directives and Living Will 02/25/2024 Candi Mulligan signed on 11/06/2023 ADVANCE DIRECTIVE / LIVING WILL COMBINED LIVING WILL & HEALTH CARE POWER OF AVIONICS SYSTEMS REPAIRER POLST 12/03/2023 9:15 AM sign date 12/01/2023 [...] the patient have Health Care Power of Program Coordinator For Residence Life? No * Full Code Date Activated Date [...] Care Agent (per Health Care Power of Program Coordinator For Residence Life document) [email or web address] Care Teams Rn Cardiology Relationship Specialty Start Date End Date Nicole Gama DO [address] [place] [address] PCP - General Family Medicine 01/04/23 documented as of this encounter
--- OUTSIDE RECORDS SUMMARY | 2024-05-06 15:30 | External Medical Summary | Summary of Care ---
Author Name Unknown Organization [facility] Address [address] [place] [address] Phone [phone] Care Team Providers Care Director Of Design Name Role Phone Luz Maria Gama Primary Care Provider [phone] Reason for Visit * Reason Comments Chemotherapy Zirabev. * Episode Based Medications (Routine) - Authorized Specialty Diagnoses / Procedures Referred By Jerel jackson Referred To Contact Diagnoses Glioblastoma (HCC) Procedures MS INJ., ZIRABEV, 10 MG Palak Cast MD [address] [place] [address] Anc Hem/Onc [facility] Alannah [address] [place] [phone] Referral ID Status Reason Start Date Expiration Date V isits Requested Visits Authorized [id number] Authorized 02/28/2024 09/19/2099 [id number] Encounter Details Date Type Department Care Team (Latest Contact Info) Description 04/05/2024 11:30 AM EDT Hem/Onc Treatment Hematology/Oncolog y Treatment, [address] [place] [address] Al[place], Chair 11 Hem Onc [address]ery [address] [place], [place] [address] [address] Glioblastoma (HCC)*; Encounter for antineoplastic chemotherapy [...] suspected opioid overdose. Seek medical help immediately. [email or web address] 1 mL 3 4 Active Omeprazole 40 [...] below 140/90,Ischemic cardiomyopathy,Cor onary artery disease involving [place] coronary artery of [place] heart without angina pectoris,Dyslipide kavon, goal LDL [...] suspected opioid overdose. Seek immediate medical attention. [email or web address] [email or web address] 1 Each 3 4 04/05/20 24 [...] AM EDT Chair 1. Patient arrived for [facility] with no acute complaints. PIV established. Chemotherapy/Immunotherapy [...] Care Team (Latest Contact Info) Description 04/05/2024 2:00 PM EDT Office Visit Palliative Medicine [facility] [place] 200 [facility] [place] [phone] Keisha Tompkins MD [address] [place] [phone] Cancer related pain*; Palliative care encounter 04/05/2024 3:30 PM EDT Pharmacy Pharmacy Hematology Oncology [facility] [address] [place] [address] [facility] Hem/Onc [address] [place] [address] 04/19/2024 11:30 AM EDT Laboratory Laboratory [facility] [place] [address] [phone] Cristobal Jaffe [place] [address] [place] [address] 04/19/2024 12:00 PM EDT Office Visit Hematology/Oncology [facility] [place] [address] [address] [place] [phone] Anuja Cortez CRNP 400 [place] [address] 04/19/2024 12:30 PM EDT Hem/Onc Treatment Hematology/Oncology [facility], [address] [place] [phone] 04/19/2024 2:00 PM EDT Office Visit Palliative Medicine [facility] 200 [facility] [place] [address] Nathalie Nichole PA-C [address] [place] [address] 05/23/2024 4:00 PM EDT Imaging Radiology [address] 132 [facility] [place] [address] 06/13/2024 11:00 AM EDT Office Visit Audiology [facility] 132 [place] [address] Gloria Oropeza AuLibby 132 [place] [address] 06/19/2024 11:15 AM EDT Office Visit Neurosurgery, [place] [address] [place] [address] Clinic, Brain Tumor Multidisciplinar y [address] [place] [address] 06/28/2024 9:50 AM EDT Office Visit [facility] [address] [place] [phone] Luz Maria Gama DO [address] [place] [address] Scheduled Procedures Name Priority Associated Diagnoses Date/Ti [...] brain, unspecified site Encounter for antineoplastic chemotherapy Cancer related pain- Primary Neoplasm related pain (acute) (chronic) Palliative care encounter Encounter for palliative care documented in this encounter Administered Medications Active Administered Medications - up to 3 most recent administrations Medication Order MAR Action Action Date Dose Rate Site diphenhydrAMINE (Benadryl) inj 50 mg 50 mg, IV Push, ONCE PRN Other, Hypersensitivity Reaction, Starting on Wed04/05/24 at 1136, Until Laura 04/06/24 at 1135, For 24 hours EPINEPHrine 1 MG/ML inj 0.3 mg 0.3 mg, Intramuscular, ONCE PRN Other, Hypersensitivity Reaction or Anaphylaxis, Starting on Wed04/05/24 at 1136, Until Laura 04/06/24 at 1135, For 24 hours hEParin 100 UNIT/ML Lock Flush inj 500 Units 500 Units (5 mL), IV Lock, PRN Other, IV Flush, Starting on Wed04/05/24 at 1136, Until Laura 04/06/24 at 1135, For 24 hours, Do not flush if lock, PICC, or central line not in place; IV infusing or unable to flush. Hydrocortisone Sod Suc (PF) (Solu-Cortef) inj 100 mg 100 mg, IV Push, ONCE PRN Other, Hypersensitivity Reaction, Starting on Wed04/05/24 at 1136, Until Laura 04/06/24 at 1135, For 24 hours NSS infusion Intravenous, at 50 mL/hr, PRN, Starting on Wed04/05/24 at 1245, Until Discontinued, Maintenance line Start Infusion 04/05/2024 11:44 AM EDT 50 mL/hr oxygen GAS Inhalation, OXYGEN, First dose on Wed04/05/24 at 1600, Until Discontinued, Device/Managed by: Low [...] Push, PRN Other, IV Flush, Starting on Wed04/05/24 at 1136, Until Laura 04/06/24 at 1135, For 24 hours, Do not flush if [...] 12:40 PM EDT 1,400 mg 210 mL/hr documented in this encounter Advance Directives Documents on File Type Date Recorded Patient Learning And Development Director Expl anation Advance Directives and Living Will 02/25/2024 Candi Mulligan signed on 11/06/2023 ADVANCE DIRECTIVE / LIVING WILL COMBINED LIVING WILL & HEALTH CARE POWER OF TRUST ACCOUNTS SUPERVISOR POLST 12/03/2023 9:15 AM sign date 12/01/2023 [...] the patient have Health Care Power of Marine Cargo Specialist? No * Full Code Date Activated Date [...] Care Agent (per Health Care Power of Marine Cargo Specialist document) [email or web address] Care Teams Director Of Design Relationship Specialty Start Date End Date Luz Maria Gama DO [address] [facility] [address] PCP - General Family Medicine 01/04/23 documented as of this encounter
--- OUTSIDE RECORDS SUMMARY | 2024-05-06 15:30 | External Medical Summary ---
Author Name Unknown Address Unknown Organization [facility] [place] [address] Laboratory Report Ordering Provider Test Date Status BRIANNA VELAZQUEZ 04/05/2024 10:52:05 Final Observation Date Value Abnormality Reference (Units ) Status SYNC LEUKOCYTES IN BLOOD BY AUTOMATED COUNT 04/05/2024 10:52:05 8.58 4.00-10.80 (K/uL) Final Segs 04/05/2024 10:52:05 79.8 Above high normal 40.0-75.0 (%) Final Lymphs % 04/05/2024 10:52:05 11.9 Below low normal 18.0-42.0 (%) Final Monos 04/05/2024 10:52:05 8.0 1.0-11.0 (%) Final Eosinophils 04/05/2024 10:52:05 0.1 0.0-6.0 (%) Final Basos 04/05/2024 10:52:05 0.2 0.0-2.0 (%) Final Absolute Segs 04/05/2024 10:52:05 6.84 1.80-7.70 (K/uL) Final Lymphs, absolute 04/05/2024 10:52:05 1.02 1.00-4.80 (K/ul) Final Monos, Abs 04/05/2024 10:52:05 0.69 0.00-1.10 (K/uL) Final Eos, Abs 04/05/2024 10:52:05 0.01 0.00-0.70 (K/uL) Final Basos, Abs 04/05/2024 10:52:05 0.02 0.00-0.20 (K/uL) Final Performing Location [facility] [place] [address]
--- OUTSIDE RECORDS SUMMARY | 2024-05-06 15:30 | External Medical Summary | Summary of Care ---
Author Name Unknown Organization [facility] Address [address] [facility] [address] Phone [phone] Care Team Providers Care Cad Application Support Specialist Name Role Phone Luz Maria Gama Primary Care Provider [phone] Reason for Visit * Reason Comments Outpatient Testing Encounter Details Date Type Department Care Team (Late st Contact Info) Description 04/05/2024 10:30 AM EDT Laboratory [facility] [place] [address] [place] [phone] [place], Lab Scenery [address] [place] [address] Glioblastoma (HCC) Allergies No known active allergiesdocumented [...] suspected opioid overdose. Seek medical help immediately. [email or web address] 1 mL 3 11/18/2023 Active Naloxone HCl 4 MG/0.1ML Nasal Liquid (Narcan Nasal) Administer 1 spray into 1 nostril for suspected opioid overdose. Seek immediate medical attention. https://www.[email or web address]/watch?v= [email or web address] 1 Each 3 11/18/2023 Active Omeprazole 40 [...] below 140/90,Ischemic cardiomyopathy,Beltrán ry artery disease involving [place] coronary artery of [place] heart without angina pectoris,Dyslipidemia , goal LDL [...] 11:30 AM EDT Hem/Onc Treatment Hematology/[address], [address] [address] [place], Chair 11 Hem Onc [address] [address] 04/05/2024 2:00 PM EDT Office Visit Palliative Medicine [facility] [place] [address] [address] Keisha Tompkins MD [address] [place] [address] [place] [id number] 04/05/2024 3:30 PM EDT Pharmacy Pharmacy Hematology Oncology [address] [place] [address] [facility], [facility] Hem/Onc [address] [place] [address] 04/19/2024 11:30 AM EDT Laboratory Laboratory [facility] [place] [address] [place] [phone] [place], [facility] [address] [place] [address] 04/19/2024 12:00 PM EDT Office Visit Hematology/Oncology [facility] [place] 200 [facility] [place] [phone] Anuja Cortez CRNP [address] [place] [address] 04/19/2024 12:30 PM EDT Hem/Onc Treatment Hematology/Oncology Treatment, [place] [address] [place] [address] 05/23/2024 4:00 PM EDT Imaging Radiology [address] 132 [facility] [place] [address] 06/13/2024 11:00 AM EDT Office Visit Audiology [facility] 132 [facility] [place] [address] Gloria Oropeza Au.D. 132 [facility] [place] [address] 06/19/2024 11:15 AM EDT Office Visit Neurosurgery, [place] [address] [place] [address] Clinic, Brain Tumor Multidisciplinary [address] [place] [address] 06/28/2024 9:50 AM EDT Office Visit [address] [address] Luz Maria Gama, DO [address] [place], [place] [phone] Pending Results Name Type Priority Associated Diagnoses Date /Time CBC WITH WBC DIFFERENTIAL Lab STAT Glioblastoma (HCC) 04/05/2024 10:52 AM EDT COMPREHENSIVE METABOLIC PANEL Lab STAT Glioblastoma (HCC) 04/05/2024 10:52 AM EDT CBC Lab STAT Glioblastoma (HCC) 04/05/2024 10:52 AM EDT DIFFERENTIAL, AUTOMATED Lab STAT Glioblastoma (HCC) 04/05/2024 10:52 AM EDT URINALYSIS, REFLEX TO MICROSCOPIC Lab STAT Glioblastoma (HCC) 04/05/2024 10:53 AM EDT Scheduled Procedures Name Priority Associated [...] Documents on File Type Date Recorded Patient Analytical Laboratory Technician Expl anation Advance Directives and Living Will 02/25/2024 Candi Mulligan signed on 11/06/2023 ADVANCE DIRECTIVE / LIVING WILL COMBINED LIVING WILL & HEALTH CARE POWER OF SATELLITE TELEVISION INSTALLER POLST 12/03/2023 9:15 AM sign date 12/01/2023 [...] the patient have Health Care Power of Bottom Buffer? No * Full Code Date Activated Date [...] Care Agent (per Health Care Power of Bottom Buffer document) Care Teams Cad Application Support Specialist Relationship Specialty Start Date End Date Luz Maria Gama DO [address] [facility] [place] [address] PCP - General Family Medicine 01/04/23 documented as of this encounter
--- OUTSIDE RECORDS SUMMARY | 2024-05-06 15:30 | External Medical Summary | Summary of Care ---
Author Name Unknown Organization [facility] Address [address] [facility] [place] [address] Phone [phone] Care Team Providers Care Quality Control Analyst Name Role Phone Luz Maria Gama Primary Care Provider [phone] Reason for Visit * Reason Comments Follow Up Pain Encounter Details Date Type Department Care Team (Late st Contact Info) Description 04/05/2024 2:00 PM EDT Office Visit Palliative Medicine [facility] 200 [place] [address] Keisha Tompkins MD [address] [place] [address] [place] [address] Cancer related pain*; Palliative care encounter Allergies No known active [...] opioid overdose. Seek medical help immediately. [email or web address] 1 mL 3 4 Active Omeprazole 40 [...] below 140/90,Ischemic cardiomyopathy,Cor onary artery disease involving [place] coronary artery of [place] heart without angina pectoris,Dyslipide kavon, goal [...] or Anxiety. 60 Tablet 2 4 Active Morphine Sulfate ER 60 MG Oral Tablet Extended Release (Ms Contin)Indications :Cancer related pain Take 1 Tablet by mouth in the morning and 1 Tablet before bedtime. 60 Tablet 4 Active Morphine Sulfate 30 MG Oral Tablet (Msir)Indications: Cancer related pain Take 1 Tablet by mouth every 4 hours as needed for Pain, Severe. Continued script 84 Tablet 4 Active Naloxone HCl 4 MG/0.1ML Nasal Liquid (Narcan Nasal) Administer 1 spray into 1 nostril for suspected opioid overdose. Seek immediate medical attention. [email or web address]://[email or web address].com/watc h?[email or web address] I 1 Each 3 4 04/05/20 24 [...] 11/12/2023 Glioblastoma 11/05/2023 Meniere disease, bilateral 05/19/2021 ALEKSANRD (obstructive sleep apnea) 02/25/2021 Class 3 severe [...] as of this encounter Progress Notes * Keisha Tompkins MD - 04/05/2024 2:00 PM EDT Palliative Medicine Outpatient Progress Note [facility] Palliative Medicine Outreach [address] [place] [address] Name: Remy Lujan Date: 04/05/2024 HPI: Remy Lujan is a 58 year old male with glioblastoma seen in follow-up for goals of care and symptom management. At last visit, we increased the MSIR from 15-30 mg q.4. He is still taking theMS Contin 60 mg twice daily, he is taking the MS area about 3-4 times per day, which includes to the doses are at nighttime. This regimen seems to be working fine. Palliative symptoms: Pain: mainly in head, taking MS IR 3-4x/day with MS Contin 60mg BID Nausea/Vomiting: no Appetite: no Constipation: no Confusion: no Sleep issues: no Dyspnea: no Mood issues: no Falls: no Other: Examination: Constitutional: no acute distress, chronically ill HENT: normocephalic, atraumatic. Eyes: anicteric, sclera and conjunctiva normal. Neck: no stridor Chest: normal respiratory effort Abdominal: nondistended Extremities: no edema Data Review: Lab / Imaging Results: Cr 0.9, normal, Glc 145, normal Information obtained from partner for collateral history Decision-making Capacity: Does Patient have Decisional Capacity? y Does Patient have a Healthcare Agent? Y, partner Candi Advanced Care Planning (see ACP Tab): AD in EMR: y POLST in EMR: y DNR LIMITED ASSESSMENT/PLAN: Remy Lujan is a 58 year old male seen in follow-up for goals of care and pain and symptom management. Gliobastoma Continuing infusion today then oral chemo at home, then start Optune device and MRI in 3 mo Cancer related pain Continue MS Contin 60mg BID, refill sent x 1 mo Continue MS IR to 30mg q4h PRN, refill sent x 2 weeks I have reviewed the patients controlled substance dispensing history in the Prescription Drug Monitoring Program in compliance with the [facility] regulations before prescribing a controlled substance. Anxiety Continue Buspar Goals of care Wants to continue cancer directed therapy If declines, would want to be comfortable Code status if admitted: DNR but ok w/LIMITED tx Follow up in 2 weeks. Nurse call in 0 weeks. They are somtimes able to do video visits. Next visit with me/VALE. Keisha Tompkins MD [facility] Palliative Medicine [phone] documented in this encounter Plan of Treatment Upcoming Encounters Date Type Department Care Team (Late st Contact Info) Description 04/05/2024 3:30 PM EDT Pharmacy Pharmacy Hematology Oncology [facility] [address] [place] [address] [facility] [place] Hem/Onc [address] [place] [address] 04/19/2024 11:30 AM EDT Laboratory Laboratory [address] [phone] [address] [address] 04/19/2024 12:00 PM EDT Office Visit Hematology/Oncology [address] [phone] Anuja Cortez CRNP [address] [place] [address] 04/19/2024 12:30 PM EDT Hem/Onc Treatment Hematology/Oncology Treatment, [address] [place] [phone] 04/19/2024 2:00 PM EDT Office Visit Palliative Medicine [facility] 200 [place] [address] Nathalie Nichole PADenC [address] [place] [address] 05/23/2024 4:00 PM EDT Imaging Radiology [facility] [address] [place] [address] 06/13/2024 11:00 AM EDT Office Visit Audiology [facility] 132 [facility] [place] [address] Gloria Oropeza Au.D. [address] [place] [address] 06/19/2024 11:15 AM EDT Office Visit Neurosurgery, [place] [address] [place] [address] Clinic, Brain Tumor Multidisciplinary [address] [place] [address] 06/28/2024 9:50 AM EDT Office Visit [facility] [address] [place] [address] Luz Maria Gama DO [address] [place] [address] Scheduled Procedures Name Priority Associated Diagnoses Date/Ti [...] this encounter Visit Diagnoses Diagnosis Cancer related pain- Primary Neoplasm related pain (acute) (chronic) Palliative care encounter Encounter for palliative care documented in this encounter Advance Directives Documents on File Type Date Recorded Patient Supervisor Public Health Nursing Expl anation Advance Directives and Living Will 02/25/2024 Candi Mulligan signed on 11/06/2023 ADVANCE DIRECTIVE / LIVING WILL COMBINED LIVING WILL & HEALTH CARE POWER OF AWS SOFTWARE DEVELOPMENT ENGINEER POLST 12/03/2023 9:15 AM sign date 12/01/2023 [...] the patient have Health Care Power of Sandfill Operator? No * Full Code Date Activated [...] Care Agent (per Health Care Power of Sandfill Operator document) Care Teams Quality Control Analyst Relationship Specialty Start Date End Date Luz Maria Gama DO [address] [facility] [place] [address] PCP - General Family Medicine 01/04/23 documented as of this encounter
--- OUTSIDE RECORDS SUMMARY | 2024-05-06 15:30 | External Medical Summary ---
Author Name Unknown Address Unknown Organization K[facility] [place] [address] Laboratory Report Ordering Provider Test Date Status BRIANNA VELAZQUEZ 04/19/2024 11:38:39 Final Observation Date Value Abnormality Reference (Units ) Status SYNC LEUKOCYTES IN BLOOD BY AUTOMATED COUNT 04/19/2024 11:38:39 11.88 Above high normal 4.00-10.80 (K/uL) Final Neutrophils/100 leukocytes in Blood by Manual count 04/19/2024 11:38:39 75.0 40.0-75.0 (%) Final Lymphocytes/100 leukocytes in Blood by Manual count 04/19/2024 11:38:39 15.0 Below low normal 18.0-42.0 (%) Final Monocytes/100 leukocytes in Blood by Manual count 04/19/2024 11:38:39 7.0 1.0-11.0 (%) Final Metamyelocytes/100 leukocytes in Blood by Manual count 04/19/2024 11:38:39 3.0 Above high normal <=0.0 (%) Final Neutrophils [#/volume] in Blood by Manual count 04/19/2024 11:38:39 8.91 Above high normal 1.80-7.70 (K/uL) Final Lymphocytes [#/volume] in Blood by Manual count 04/19/2024 11:38:39 1.78 1.00-4.80 (K/uL) Final Monocytes [#/volume] in Blood by Manual count 04/19/2024 11:38:39 0.83 0.00-1.10 (K/uL) Final Metamyelocytes [#/volume] in Blood by Manual count 04/19/2024 11:38:39 0.36 Above high normal <=0.00 (K/uL) Final Nucleated erythrocytes/100 leukocytes [Ratio] in Blood by Automated count 04/19/2024 11:38:39 Final Performing Location [facility] [place] [address]
--- OUTSIDE RECORDS SUMMARY | 2024-05-06 15:30 | External Medical Summary | Summary of Care ---
Author Name Unknown Organization [facility] Address [address] [facility] [place] [address] Phone [phone] Care Team Providers Care Warp Knitter Name Role Phone Luz Maria Gama Primary Care Provider Reason for Visit * Reason Comments eRx-Medication Refill Encounter Details Date Type Department Care Team (Late st Contact Info) Description 04/17/2024 Refill Hematology/Oncology [facility] [place] 200 [facility] [place] [phone] Shay Song MD 200 [facility] [place] [address] Glioblastoma (HCC) Allergies No known active allergiesdocumented as of this encounter (statuses as of 04/17/2024) Medications Medication Sig Dispensed Refills Start Date End Date Status nitroglycerin (NITROSTAT) 0.[address] 1 Tab under the tongue every 5 minutes as needed for Pain, Chest. 90 Tab 12 08/17/2015 Active Lisinopril 20 MG Oral Tablet (Prinivil)Indicatio ns:HTN, goal below 140/90 Take 1 Tablet by mouth in the morning. 90 Tablet 3 11/04/2023 Active CPAP every night at bedtime. Active Naloxone HCl 0.4 MG/ML Injection Solution (Narcan)Indications :Brain tumor (HCC),Brain mass Inject 1mL into a large muscle for suspected opioid overdose. Seek medical help immediately. [email or web address] 1 mL 3 11/18/2023 Active Omeprazole 40 MG Oral Capsule Delayed Release (PriLOSEC) Take 1 Capsule by mouth in the morning. 12/27/2023 Active dexAMETHasone 4 MG Oral Tablet (Decadron) Take 1 Tablet by mouth 2 times a day with morning and evening meals. 12/27/2023 Active Doxycycline Monohydrate 50 MG Oral CapsuleIndications: Rosacea Take 1 capsule by mouth once daily 90 Capsule 1 01/10/2024 Active Aspirin 81 MG Oral Tablet ChewableIndications :Ischemic cardiomyopathy Take 1 Tablet by mouth in the morning. 30 Tablet 11 02/08/2024 Active Polyethylene Glycol 3350 17 GM Oral Packet (Miralax)Indication s:Constipation due to pain medication Take 1 Packet by mouth in the morning. 30 Each 03/03/2024 Active Sennosides 8.6 MG Oral Tablet (Senokot)Indication s:Constipation due to pain medication Take 2 Tablets by mouth at bedtime. 60 Tablet 03/03/2024 Active levETIRAcetam 500 MG Oral Tablet (Keppra)Indications :Brain tumor (HCC),Brain mass Take 1 Tablet by mouth in the morning and 1 Tablet before bedtime. 60 Tablet 2 03/06/2024 Active Metoprolol Succinate ER 25 MG Oral Tablet Extended Release 24 Hour (toPROL XL)Indications:HTN, goal below 140/90,Ischemic cardiomyopathy,Aristeo nary artery disease involving kiana coronary artery of kiana heart without angina pectoris,Dyslipidem ia, goal LDL below 100,Essential hypertension with goal blood pressure less than 140/90 Take 1 Tablet by mouth in the morning. 90 Tablet 1 03/04/2024 Active Ondansetron HCl 8 MG Oral Tablet (Zofran)Indications :Glioblastoma (HCC) Take 1 tablet by mouth 30 minutes prior to lomustine and every 8 hours as needed for nausea. Do not exceed 3 tablets per 24 hours. 60 Tablet 1 03/03/2024 Active Lomustine 40 MG Oral Capsule (Ceenu)Indications: Glioblastoma (HCC) Take 4 Capsules by mouth every 6 weeks. Take on an empty stomach at bedtime 4 Capsule 03/03/2024 Active Omeprazole 20 MG Oral Capsule Delayed Release (PriLOSEC)Indicatio ns:Glioblastoma (HCC) Take 2 Capsules by mouth in the morning. 60 Capsule 5 03/16/2024 Active busPIRone HCl 10 MG Oral Tablet (Buspar)Indications :Anxiety state Take 1 Tablet by mouth 2 times a day as needed for Agitation or Anxiety. 60 Tablet 2 03/22/2024 Active Morphine Sulfate ER 60 MG Oral Tablet Extended Release (Ms Contin)Indications: Cancer related pain Take 1 Tablet by mouth in the morning and 1 Tablet before bedtime. 60 Tablet 04/05/2024 Active Morphine Sulfate 30 MG Oral Tablet (Msir)Indications:C ancer related pain Take 1 Tablet by mouth every 4 hours as needed for Pain, Severe. Continued script 84 Tablet 04/05/2024 Active dexAMETHasone 2 MG Oral Tablet (Decadron)Indicatio ns:Glioblastoma (HCC) Take 1 Tablet by mouth 2 times a day with morning and evening meals. 60 Tablet 1 04/17/2024 Active dexAMETHasone 2 MG Oral Tablet (Decadron)Indicatio ns:Glioblastoma (HCC) Take 1 Tablet by mouth 2 times a day with morning and evening meals. 60 Tablet 1 03/16/2024 04/17/20 24 Discontinued documented as of this [...] encounter Miscellaneous Notes * Telephone Encounter - Shay Song MD - 04/17/2024 2:13 PM EDT E-prescribed Decadron 2 mg twice-a-day. Shay Song MD Hem/Onc * Telephone Encounter - Gege Gracia LPN - 04/17/2024 10:22 AM EDTPending Prescriptions: Disp Refills dexAMETHasone 2 MG Oral Tablet [Pharmacy M*60 Tab*1 Sig: Take 1 Tablet by mouth 2 times a day with morning and evening meals. * Telephone Encounter - Gege Gracia LPN - 04/17/2024 10:20 AM EDT Refill request for Dexamethasone 2 mg tab pended below: Last Refill:03/16/2024 Last seen:02/29/2024 Next Appt.:04/19/2024 documented in this encounter Plan of Treatment Upcoming Encounters Date Type Department Care Team (Late st Contact Info) Description 04/19/2024 11:30 AM EDT Laboratory Laboratory [address] [place] [phone] [place] [address] 04/19/2024 12:00 PM EDT Office Visit Hematology/Oncology [address] [phone] Anuja Cortez CRNP 400 [place] [address] 04/19/2024 12:30 PM EDT Hem/Onc Treatment Hematology/Oncology Treatment, [address] [place] [phone] 04/19/2024 2:00 PM EDT Office Visit Palliative Medicine [address] [place] [address] Nathalie Nichole PA-C 400 [facility] [place] [address] 04/19/2024 3:30 PM EDT Pharmacy Pharmacy Hematology Oncology [facility] [place] [address] [place] [address] [facility] [place] Hem/Onc [address] [place] [address] 05/23/2024 4:00 PM EDT Imaging Radiology [address], [place] 132 [facility] [place] [address] 06/13/2024 11:00 AM EDT Office Visit Audiology [facility] [address] [place] [address] Gloria Oropeza Au.D. [address] [place] [address] 06/19/2024 11:15 AM EDT Office Visit Neurosurgery, [place] [address] [place] [address] Clinic, Brain Tumor Multidisciplinary [address] [place] [address] 06/28/2024 9:50 AM EDT Office Visit [facility] [address] [place] [phone] Luz Maria Gama DO [address] [place] [address] Scheduled Procedures Name Priority Associated Diagnoses Date/Ti [...] Documents on File Type Date Recorded Patient Dietetic Tech Expl anation Advance Directives and Living Will 02/25/2024 Candi Mulligan signed on 11/06/2023 ADVANCE DIRECTIVE / LIVING WILL COMBINED LIVING WILL & HEALTH CARE POWER OF DIRECTOR OF ESTATE POLST 12/03/2023 9:15 AM sign date 12/01/2023 Advance Directives and Living Will 11/05/2023 INVALID- missing pag es * Full Code (Latest Code Status on File) Date Activated Date Inactivated Comments 11/10/2023 3:44 PM 11/18/2023 6:36 PM This order reflects the patients wishes and were consensually agreed upon. Question Answer Comments Discussion of Advance Direct linda occurred with: Not Discussed due to patient's condition Does the patient have a Living Will? No Does the patient have Health Care Power of Investigation Clerk? No * Full Code Date Activated Date [...] Care Agent (per Health Care Power of Investigation Clerk document) [email or web address] Warp Knitter Relationship Specialty Start Date End Date Luz Maria Gama DO [address] [facility] [place] [address] PCP - General Family Medicine 01/04/23 documented as of this encounter
--- OUTSIDE RECORDS SUMMARY | 2024-05-06 15:30 | External Medical Summary | Summary of Care ---
Author Name Unknown Organization [facility] Address [address] [place] [facility] [place] [address] Phone [phone] Care Team Providers Care Recorder Helper Gravity Prospecting Name Role Phone Nicole Gramajo DO Primary Care Provider Reason for Visit * Reason Onset Date Comments Medication Refill 04/16/2024 Encounter Details Date Type Department Care Team (Late st Contact Info) Description 04/16/2024 Refill [facility] [address] [place] [address] Nicole Gramajo DO [address] [place] [address] Rosacea Allergies No known active allergiesdocumented as of [...] opioid overdose. Seek medical help immediately. [email or web address] 1 mL 3 11/18/2023 Active Omeprazole 40 [...] below 140/90,Ischemic cardiomyopathy,Coron christiane artery disease involving [place] coronary artery of [place] heart without angina pectoris,Dyslipidemi a, goal LDL [...] per day 180 Tablet 1 04/17/2024 Active Doxycycline Monohydrate 50 MG Oral CapsuleIndications:R osacea Take 1 capsule by mouth once daily 90 Capsule 1 01/10/2024 Discontinue d(Refill) documented as of this encounter [...] mRNA, LNP-s, No Pre serve, 2-Dose Series (SoundCloud) 12/02/2020,10/28/2020 Pneumococcal Polysaccharide PPV23 (Pneumovax) Seasonal Influenza, [...] encounter Miscellaneous Notes * Telephone Encounter - Nicole Gramajo DO - 04/17/2024 2:52 PM EDTSigned Prescriptions: Disp Refills Doxycycline Monohydrate 50 MG Oral Capsule 90 Cap*1 Sig: Take 1 capsule by mouth once daily Authorizing Provider: NICOLE GRAMAJO * Telephone Encounter - Irma Marques LPN - 04/17/2024 8:29 AM EDTPending Prescriptions: Disp Refills Doxycycline Monohydrate 50 MG Oral Capsule 90 Cap*1 Sig: Take 1 capsule by mouth once daily * Telephone Encounter - Alek Garcia - 04/16/2024 8:06 PM EDTPending Prescriptions: Disp Refills Doxycycline Monohydrate 50 MG Oral Capsule 90 Cap*1 Sig: Take 1capsule by mouth once daily documented in this encounter Plan of Treatment Upcoming Encounters Date Type Department Care Team (Late st Contact Info) Description 04/19/2024 11:30 AM EDT Laboratory Laboratory [address] [place] [phone] Cristobal Jaffe [address] [address] 04/19/2024 12:00 PM EDT Office Visit Hematology/On[place] [address] [place] [address] Anuja Cortez CRNP [address] [place] [address] 04/19/2024 12:30 PM EDT Hem/Onc Treatment Hematology/Oncology Treatment, [address], [place] [address] 04/19/2024 2:00 PM EDT Office Visit Palliative Medicine [facility] [address] [place] [phone] Nathalie Nichole PADenC [address] [place], [place] [phone] 04/19/2024 3:30 PM EDT Pharmacy Pharmacy Hematology Oncology [address] [place] [address] [facility] Hem[facility]Onc [address] [place] [address] 05/23/2024 4:00 PM EDT Imaging Radiology [address] [facility] [address] 06/13/2024 11:00 AM EDT Office Visit Audiology [facility] 132 [facility] [place] [address] Gloria Oropeza Au.D. 132 [place] [address] 06/19/2024 11:15 AM EDT Office Visit Neurosurgery, [place] [address] [place] [address] Clinic, Brain Tumor Multidisciplinary [address] [place] [address] 06/28/2024 9:50 AM EDT Office Visit [address] [phone] Nicole Gramajo DO [address] [place] [address] Scheduled Procedures Name Priority Associated Diagnoses Date/Ti [...] as of this encounter Visit Diagnoses Diagnosis Rosacea documented in this encounter Advance Directives Documents on File Type Date Recorded Patient Spring Former Hand Expl anation Advance Directives and Living Will 02/25/2024 Candi Isaak signed on 11/06/2023 ADVANCE DIRECTIVE / LIVING WILL COMBINED LIVING WILL & HEALTH CARE POWER OF INKER MACHINE POLST 12/03/2023 9:15 AM sign date 12/01/2023 [...] the patient have Health Care Power of Metal Organ Pipe Maker? No * Full Code Date Activated Date [...] Care Agent (per Health Care Power of Metal Organ Pipe Maker document) Care Teams Recorder Helper Gravity Prospecting Relationship Specialty Start Date End Date Nicole Gramajo DO [address] [facility] [place] [address] PCP - General Family Medicine 01/04/23 documented as of this encounter
--- OUTSIDE RECORDS SUMMARY | 2024-05-06 15:30 | External Medical Summary ---
Author Name Unknown Address Unknown Organization [facility] [address] [place] [address] Laboratory Report Ordering Provider Test Date Status BRIANNA VELAZQUEZ 04/19/2024 11:38:39 Final Observation Date Value Abnormality Reference (Units ) Status BUN 04/19/2024 11:38:39 25 Above high normal 6-20 (mg/dL) Final Creatinine 04/19/2024 11:38:39 0.9 0.6-1.2 (mg/dL) Final Glomerular filtration rate/1.73 sq M.predicted [Volume Rate/Area] in Serum, Plasma or Blood by Creatinine-based formula (CKD-EPI) 04/19/2024 11:38:39 >90 >=60 (mL/min) Final eGFR is calculated based on the CKD-EPI 2020 equation. Sodium 04/19/2024 11:38:39 137 135-146 (m mol/L) Final Potassium 04/19/2024 11:38:39 4.6 3.5-5.1 (m mol/L) Final Cl 04/19/2024 11:38:39 101 98-107 (mm ol/L) Final CO2 04/19/2024 11:38:39 27 22-32 (mmo l/L) Final Anion gap 04/19/2024 11:38:39 9 7-15 (mmol /L) Final Glucose 04/19/2024 11:38:39 76 70-120 (mg /dL) Final Albumin 04/19/2024 11:38:39 3.8 3.8-5.0 (g /dL) Final AST (Aspartate aminotransferase) 04/19/2024 11:38:39 18 10-50 (U/L) Final Alk Phos 04/19/2024 11:38:39 69 35-130 (U/ L) Final Bilirubin, Total 04/19/2024 11:38:39 0.4 <=1 .2 (mg/dL) Final Calcium 04/19/2024 11:38:39 8.9 8.4-10.2 ( mg/dL) Final Protein 04/19/2024 11:38:39 6.3 6.0-8.3 (g /dL) Final ALT (Alanine aminotransferase) 04/19/2024 11:38:39 46 10-50 (U/L) Final Performing Location [facility] [address] [place] [address]
--- OUTSIDE RECORDS SUMMARY | 2024-05-06 15:31 | External Medical Summary ---
Author Name Unknown Address Unknown Organization [facility] [place] [address] Laboratory Report Ordering Provider Test Date Status BRIANNA VELAZQUEZ 04/05/2024 10:52:05 Final Observation Date Value Abnormality Reference (Units ) Status WBC, Total 04/05/2024 10:52:05 8.58 4.00-10.8 0 (K/uL) Final RBC 04/05/2024 10:52:05 4.36 4.50-5.25 (M/uL) Final Hemoglobin 04/05/2024 10:52:05 13.5 Below low normal 14 .0-16.8 (g/dL) Final HCT 04/05/2024 10:52:05 41.2 40.0-48.4 (%) Final MCV 04/05/2024 10:52:05 94.5 82.0-99.5 (fL) Final MCH 04/05/2024 10:52:05 31.0 27.0-34.0 (pg) Final MCHC 04/05/2024 10:52:05 32.8 32.0-36.0 (g/dL) Final RDW 04/05/2024 10:52:05 14.7 11.5-15.5 (%) Final Platelets 04/05/2024 10:52:05 239 140-400 (K /uL) Final MPV 04/05/2024 10:52:05 9.1 6.6-11.1 ( fL) Final Performing Location [facility] [place] [address]
--- OUTSIDE RECORDS SUMMARY | 2024-05-06 15:31 | External Medical Summary | Summary of Care ---
Author Name Unknown Organization [facility] Address [address] [place] [address] Phone [phone] Care Team Providers Care Coin Dealer Name Role Phone Luz Maria Gama Primary Care Provider [phone] Reason for Visit * Reason Comments Chemotherapy C1/D1 - Zirabev * Episode Based Medications (Routine) - Authorized Specialty Diagnoses / Procedures Referred By Jerel t Referred To Contact Diagnoses Glioblastoma (HCC) Procedures DE INJ., ZIRABEV, 10 MG Palak Cast MD [address] [place] [address] Anc Hem/Onc [facility] [place] [address] [place] [phone] Referral ID Status Reason Start Date Expiration Date V isits Requested Visits Authorized [id number] Authorized 02/28/2024 09/19/[phone] Encounter Details Date Type Department Care Team (Latest Contact Info) Description 03/22/2024 12:00 PM EDT Hem/Onc Treatment Hematology/Oncolog y Treatment, [address] [place] [address] Alannah, Chair 1 Hem Onc [address] [address] Glioblastoma (HCC)*; Encounter for antineoplastic chemotherapy Allergies No known active allergiesdocumented as of this encounter (statuses as of 03/22/2024) Medications Medication Sig Dispensed Refills Start Date [...] suspected opioid overdose. Seek medical help immediately. [email or web address] Telematicsu.be/ [email or web address] 1 mL 3 11/18/2023 Active Naloxone HCl 4 MG/0.1ML Nasal Liquid (Narcan Nasal) Administer 1 spray into 1 nostril for suspected opioid overdose. Seek immediate medical attention. https://www.Thelial Technologiese.com/watch?v= h91fRkv1FqE 1 Each 3 11/18/2023 Active Omeprazole 40 [...] below 140/90,Ischemic cardiomyopathy,Beltrán ry artery disease involving [place] coronary artery of [place] heart without angina pectoris,Dyslipidemia , goal LDL [...] the morning. 60 Capsule 5 03/16/2024 Active documented as of this encounter (statuses as of 03/22/2024) Active Problems Problem Noted Date Diagnosed Date [...] as of this encounter (statuses as of 03/22/2024) Resolved Problems Problem Noted Date Diagnosed Date [...] as of this encounter (statuses as of 03/22/2024) Immunizations Name Administration Dates Next Due COVID-19 mRNA, LNP-s, No Pre serve, 2-Dose Series (Jaco Solarsi) 12/02/2020,10/28/2020 Pneumococcal Polysaccharide PPV23 (Pneumovax) Seasonal Influenza, [...] Care Team (Late st Contact Info) Description 03/29/2024 3:45 PM EDT Pharmacy Pharmacy Hematology Oncology [facility] [address] [place] [address] [facility] Hem[facility]Onc [facility] [place] [address] 04/05/2024 10:30 AM EDT Laboratory Laboratory [facility] [place] [address] [place] [phone] Alannah, Lab [address] [facility] [place] [address] 04/05/2024 11:30 AM EDT Hem/Onc Treatment Hematology/Oncology Treatment, [place] [address] [place] [phone] Alannah, Chair 11 Hem Onc [address] [place] [address] 04/19/2024 11:30 AM EDT Laboratory Laboratory [facility] [place] [address] [place] [phone] Alannah, Lab [address] [place] [address] 04/19/2024 12:00 PM EDT Office Visit Hematology/Oncology [facility] [place] [address] [place] [phone] Anuja Cortez CRNP [address] [place] [address] 04/19/2024 12:30 PM EDT Hem/Onc Treatment Hematology/Oncology Treatment, [place] [address] [place] [address] 05/23/2024 4:00 PM EDT Imaging Radiology [facility] [address] [place] [address] 06/13/2024 11:00 AM EDT Office Visit Audiology [facility] [address] [place] [address] Gloria Oropeza Au.D. [address] [place] [address] 06/19/2024 11:15 AM EDT Office Visit Neurosurgery, [place] [address] [place] [address] Clinic, Brain Tumor Multidisciplinary [address] [place] [address] 06/28/2024 9:50 AM EDT Office Visit [facility] [address] [place] [phone] Luz Maria Gama, [address] [place] [address] Scheduled Procedures Name Priority Associated Diagnoses Date/Ti [...] ONCE PRN Other, Hypersensitivity Reaction, Starting on Wed03/22/24 at 1151, Until Wed03/23/24 at 1150, For 24 hours EPINEPHrine 1 MG/ML inj 0.3 mg 0.3 mg, Intramuscular, ONCE PRN Other, Hypersensitivity Reaction or Anaphylaxis, Starting on Wed03/22/24 at 1151, Until Wed03/23/24 at 1150, For 24 hours hEParin 100 UNIT/ML Lock Flush inj 500 Units 500 Units (5 mL), IV Lock, PRN Other, IV Flush, Starting on Wed03/22/24 at 1151, Until Wed03/23/24 at 1150, For 24 hours, Do not flush if lock, PICC, or central line not in place; IV infusing or unable to flush. Hydrocortisone Sod Suc (PF) (Solu-Cortef) inj 100 mg 100 mg, IV Push, ONCE PRN Other, Hypersensitivity Reaction, Starting on Wed03/22/24 at 1151, Until Laura 03/23/24 at 1150, For 24 hours NSS infusion Intravenous, at 50 mL/hr, PRN, Starting on Wed03/22/24 at 1300, Until Discontinued, Maintenance line Start Infusion 03/22/2024 11:53 AM EDT 50 mL/hr oxygen GAS Inhalation, OXYGEN, First dose on Wed03/22/24 at 1600, Until Discontinued, Device/Managed by: Low [...] Push, PRN Other, IV Flush, Starting on Wed03/22/24 at 1151, Until Laura 03/23/24 at 1150, For 24 hours, Do not flush if [...] 12:30 PM EDT 1,400 mg 210 mL/hr documented in this encounter Advance Directives Documents on File Type Date Recorded Patient Sales Director Expl anation Advance Directives and Living Will 02/25/2024 Candi Mulligan signed on 11/06/2023 ADVANCE DIRECTIVE / LIVING WILL COMBINED LIVING WILL & HEALTH CARE POWER OF HAND WRAPPER OPERATOR POLST 12/03/2023 9:15 AM sign date [...] the patient have Health Care Power of Heating And Air Conditioning Mechanic? No * Full Code Date Activated Date [...] Care Agent (per Health Care Power of Heating And Air Conditioning Mechanic document) [email or web address] Care Teams Coin Dealer Relationship Specialty Start Date End Date Luz Maria Gama DO [address] [place] [address] PCP - General Family Medicine 01/04/23 documented as of this encounter
--- OUTSIDE RECORDS SUMMARY | 2024-05-06 15:31 | External Medical Summary | Summary of Care ---
Author Name Unknown Organization [facility] Address [address] [facility] [place] [address] Phone [phone] Care Team Providers Care Scleroscope Tester Name Role Phone Luz Maria Gama Primary Care Provider Reason for Visit * Reason Onset Date Comments Medication Refill 04/03/2024 Encounter Details Date Type Department Care Team (Late st Contact Info) Description 04/03/2024 Refill Hematology/Oncology [facility] 200 [facility] [place] [phone] Shay Song MD [address] [facility] [place] [address] Glioblastoma (HCC) Allergies No known active allergiesdocumented as of this encounter (statuses as of 04/04/2024) Medications Medication Sig Dispensed Refills Start Date [...] suspected opioid overdose. Seek medical help immediately. http://Allyes Advertisement Network.be/ -[email or web address] 1 mL 3 11/18/2023 Active Naloxone HCl 4 MG/0.1ML Nasal Liquid (Narcan Nasal) Administer 1 spray into 1 nostril for suspected opioid overdose. Seek immediate medical attention. https://www.ParentingInformer.com/watch?v= [email or web address] 1 Each 3 11/18/2023 Active Omeprazole 40 [...] below 140/90,Ischemic cardiomyopathy,Beltrán ry artery disease involving [place] coronary artery of [place] heart without angina pectoris,Dyslipidemia , goal LDL [...] as of this encounter (statuses as of 04/04/2024) Active Problems Problem Noted Date Diagnosed Date [...] as of this encounter (statuses as of 04/04/2024) Resolved Problems Problem Noted Date Diagnosed Date [...] as of this encounter (statuses as of 04/04/2024) Immunizations Name Administration Dates Next Due COVID-19 mRNA, LNP-s, No Pre serve, 2-Dose Series (CompareMyFare) 12/02/2020,10/28/2020 Pneumococcal Polysaccharide PPV23 (Pneumovax) Seasonal Influenza, [...] 2:16 PM EDT Called and spoke with proof technician helper at [facility], she states the patient picked uphis refill on 03/24/2024. She reports the patient can machine operator hop picker his next refill on 04/21/2025 per the insurance. Will make patient aware. documented in this encounter Plan of Treatment Upcoming Encounters Date Type Department Care Team (Late st Contact Info) Description 04/05/2024 10:30 AM EDT Laboratory Laboratory [facility] [place] [address] [place] [phone] Alannah, Lab [facility] [address] [facility] [place] [address] 04/05/2024 11:30 AM EDT Hem/Onc Treatment Hematology/Oncology Treatment, [place] 200 [facility], [place] [phone] Alannah, Chair 11 Hem Onc [facility] [address] [place] [address] 04/05/2024 2:00 PM EDT Office Visit Palliative Medicine [facility] [place] 200 [facility], [place] [phone] Keisha Tompkins MD 400 [facility] [place] [address] 04/05/2024 3:30 PM EDT Pharmacy Pharmacy Hematology Oncology [place] [address] [place] [address] [facility] Hem/Onc [facility] [place] [address] 04/19/2024 11:30 AM EDT Laboratory Laboratory Garry Jaffe [place] [address] [place] [phone] Alannah Lab Scenery [address] [facility] [place], [place] [address] 04/19/2024 12:00 PM EDT Office Visit Hematology/Oncology [facility] [place] [address] [place] [phone] Anuja Cortez CRNP 400 [facility] [place] [phone] 04/19/2024 12:30 PM EDT Hem/Onc Treatment Hematology/Oncology Treatment, [place] [address] [place] [address] 05/23/2024 4:00 PM EDT Imaging Radiology [facility]st [facility] [address] [place] [address] 06/13/2024 11:00 AM EDT Office Visit [facility] [place] [address] Gloria Oropeza Au.D. [address] [place] [address] 06/19/2024 11:15 AM EDT Office Visit Neurosurgery, [place] [address] [place] [address] Clinic, Brain Tumor Multidisciplinary [address] [place] [address] 06/28/2024 9:50 AM EDT Office Visit [facility] [address] [place] [phone] Luz Maria Gama, [address] [place] [address] Scheduled Procedures Name Priority Associated Diagnoses Date/Ti [...] on File Type Date Recorded Patient Senior Sales Manager Expl anation Advance Directives and Living Will 02/25/2024 Candi Isaak signed on 11/06/2023 ADVANCE DIRECTIVE / LIVING WILL COMBINED LIVING WILL & HEALTH CARE POWER OF BALL POINT SPLITTER POLST 12/03/2023 9:15 AM sign date 12/01/2023 [...] the patient have Health Care Power of Adjunct English Instructor? No * Full Code Date Activated Date [...] Care Agent (per Health Care Power of Adjunct English Instructor document) [email or web address] Care Teams Scleroscope Tester Relationship Specialty Start Date End Date Luz Maria Gama DO [address] [place] [facility] [place] [address] PCP - General Family Medicine 01/04/23 documented as of this encounter
--- OUTSIDE RECORDS SUMMARY | 2024-05-06 15:31 | External Medical Summary | Summary of Care ---
Author Name Unknown Organization [facility] Address [address] [place] [address] Phone [phone] Care Team Providers Care Station Captain Name Role Phone Luz Maria Gama Primary Care Provider Reason for Visit * Reason Comments Medication Management Encounter Details Date Type Department Care Team (Late st Contact Info) Description 03/29/2024 3:45 PM EDT Pharmacy Pharmacy Hematology Oncology [facility] [address] [place] [address] [facility], [facility] Clinic Hem/Onc [address] [place], [place] [phone] Glioblastoma (HCC)* Allergies No known active allergiesdocumented as of this encounter (statuses as of 03/29/2024) Medications Medication Sig Dispensed Refills Start Date [...] suspected opioid overdose. Seek medical help immediately. http://Vatler.be/ -[email or web address] 1 mL 3 11/18/2023 Active Naloxone HCl 4 MG/0.1ML Nasal Liquid (Narcan Nasal) Administer 1 spray into 1 nostril for suspected opioid overdose. Seek immediate medical attention. https://www.Appboy.com/watch?v= [email or web address] 1 Each 3 11/18/2023 Active Omeprazole 40 [...] as of this encounter (statuses as of 03/29/2024) Active Problems Problem Noted Date Diagnosed Date [...] as of this encounter (statuses as of 03/29/2024) Resolved Problems Problem Noted Date Diagnosed Date [...] as of this encounter (statuses as of 03/29/2024) Immunizations Name Administration Dates Next Due COVID-19 mRNA, LNP-s, No Pre serve, 2-Dose Series (Cellmax) 12/02/2020,10/28/2020 Pneumococcal Polysaccharide PPV23 (Pneumovax) Seasonal Influenza, [...] this encounter Progress Notes * Martha Rivera, [facility] - 03/29/2024 1:51 PM EDT MEDICATION THERAPY MANAGEMENT LOMUSTINE TREATMENT PROGRESS NOTE Remy Lujan [id number] Patient Phone Numbers [employer] [phone] Significant Other: Candi Communication: Spoke to: Other: [...] stomach at bedtime Start Date: 03/24/24 Primary Pen Maker/Oncologist: Dr. Shay Song Additional Therapy: Bevacizumab Supportive [...] drug interaction identified Assessment and Plan: Labs scheduled for 04/05 Assessment of compliance: compliant Assessment of adverse effects attributed to drug therapy: N/A Dose adjustment needed based on lab or adverse drug reaction? No Follow up: 1 week Martha Rivera, PharmD, BCOP Ambulatory Clinical Pharmacist | Oral Chemotherapy Clinic [facility] 03/29/2024, 1:53 PM Monitoring Parameters: Estimated CrCl Serum creatinine: 1.1 mg/dL 03/22/24 1041 Estimated creatinine clearance: 107.6 mL/min Hepatitis panel Complete 02/28/24 Not immune to hepatitis B virus Suggested lab monitoring CBCd and CMP weekly Treatment Parameters Please refer to PI Pertinent labs: Time Spent on Encounter: 11 - 15 minutes Encounter Group: Neuro-Oncology Encounter Interventions Item Category: Oral Chemotherapy Lomustine Problem/Rationale: Safety: Needs additional monitoring - Medication Requires monitoring Pharmacist Intervention(s): Toxicity monitoring Magnitude of Intervention: Monitoring with direction (Level 1) documented in this encounter Plan of Treatment Upcoming Encounters Date Type Department Care Team (Late st Contact Info) Description 04/05/2024 10:30 AM EDT Laboratory Laboratory [facility] [place] [address] [place] [phone] Alannah, Lab [facility] [address] [place] [address] 04/05/2024 11:30 AM EDT Hem/Onc Treatment Hematology/Oncology Treatment, [address] [phone] Alannah, Chair 11 Hem Onc [place] [address] [place] [address] 04/05/2024 2:00 PM EDT Office Visit Palliative Medicine [facility] [address], [place] [phone] Keisha Tompkins MD [address] [place] [address] 04/05/2024 3:30 PM EDT Pharmacy Pharmacy Hematology Oncology [place] [address] [place] [address] [facility], [facility] Clinic Hem/Onc [facility] [place] [address] 04/19/2024 11:30 AM EDT Laboratory Laboratory [facility] [place] [address] [place] [phone] Alannah Lab [facility] [address] [facility] [place], [place] [address] 04/19/2024 12:00 PM EDT Office Visit Hematology/Oncology [facility] [place] [address] [place] [phone] Anuja Cortez CRNP [address] [place], [place] [phone] 04/19/2024 12:30 PM EDT Hem/Onc Treatment Hematology/Oncology Treatment, [place] [address] [place] [phone] 05/23/2024 4:00 PM EDT Imaging Radiology [facility] 1st [facility] [address] [facility] [place] [address] 06/13/2024 11:00 AM EDT Office Visit Audiology [facility] [address] [place] [address] Gloria Oropeza Au.D. [address] [place] [address] 06/19/2024 11:15 AM EDT Office Visit Neurosurgery, [place] [address] [place] [address] Clinic, Brain Tumor Multidisciplinary [address] [place] [address] 06/28/2024 9:50 AM EDT Office Visit [facility] [address] [place] [phone] Luz Maria Gama, [address] [place] [address] Scheduled Procedures Name Priority Associated Diagnoses Date/Ti [...] Documents on File Type Date Recorded Patient Port Traffic Manager Expl anation Advance Directives and Living Will 02/25/2024 Candi Isaak signed on 11/06/2023 ADVANCE DIRECTIVE / LIVING WILL COMBINED LIVING WILL & HEALTH CARE POWER OF DIESEL SERVICE APPRENTICE POLST 12/03/2023 9:15 AM sign date [...] the patient have Health Care Power of Senior Windows Engineer? No * Full Code Date Activated [...] Care Agent (per Health Care Power of Senior Windows Engineer document) [email or web address] Care Teams Station Captain Relationship Specialty Start Date End Date Luz Maria Gama DO [address] [facility] [place] [phone] PCP - General Family Medicine 01/04/23 documented as of this encounter"
--- OUTSIDE RECORDS SUMMARY | 2024-05-06 15:31 | External Medical Summary ---
Author Name Unknown Address Unknown Organization K[facility] [place] [address] Laboratory Report Ordering Provider Test Date Status BRIANNA VELAZQUEZ 04/05/2024 10:52:05 Final Observation Date Value Abnormality Reference (Units ) Status Nucleated erythrocytes/100 leukocytes [Ratio] in Blood by Automated count 04/05/2024 10:52:05 Final Performing Location [facility] Garry KIDD [id number]
--- OUTSIDE RECORDS SUMMARY | 2024-05-06 15:31 | External Medical Summary | Summary of Care ---
Author Name Unknown Organization [facility] Address [address] [facility] [address] Phone [phone] Care Team Providers Care Sales Director Name Role Phone Luz Maria Gama Primary Care Provider Reason for Visit * Reason Onset Date Comments Palliative Care Follow-up 03/15/2024 Encounter Details Date Type Department Care Team (Late st Contact Info) Description 03/15/2024 9:15 AM EDT Scheduled Telephone Palliative Medicine, [address] [place] [address] Or, Nurse Palliative Medicine [address] [phone] Allergies No known active allergiesdocumented as of this encounter (statuses as of 03/27/2024) Medications Medication Sig Dispensed Refills Start Date End Date Status nitroglycerin (NITROSTAT) 0.[address] 1 Tab under the tongue every 5 minutes as needed for Pain, Chest. 90 Tab 12 08/17/2015 Active buPROPion HCl ER (SR) 150 MG Oral Tablet Extended Release 12 Hour (Wellbutrin SR)Indications:Adju stment disorder with depressed mood Take 1 tab by mouth twice per day 180 Tablet 1 06/24/2023 Active Lisinopril 20 MG Oral Tablet (Prinivil)Indicatio ns:HTN, goal below 140/90 Take 1 Tablet by mouth in the morning. 90 Tablet 3 11/04/2023 Active CPAP every night at bedtime. Active Naloxone HCl 0.4 MG/ML Injection Solution (Narcan)Indications :Brain tumor (HCC),Brain mass Inject 1mL into a large muscle for suspected opioid overdose. Seek medical help immediately. http://[email or web address].be [email or web address] 1 mL 3 11/18/2023 Active Naloxone HCl 4 MG/0.1ML Nasal Liquid (Narcan Nasal) Administer 1 spray into 1 nostril for suspected opioid overdose. Seek immediate medical attention. https://www.Highcon.com/watch? v=[email or web address] 1 Each 3 11/18/2023 Active Omeprazole 40 MG Oral Capsule Delayed Release (PriLOSEC) Take 1 Capsule by mouth in the morning. 12/27/2023 Active dexAMETHasone 4 MG Oral Tablet (Decadron) Take 1 Tablet by mouth 2 times a day with morning and evening meals. 12/27/2023 Active Sulfamethoxazole-Tr imethoprim 800-160 MG Oral Tablet (Bactrim DS) Every [...] 24 Hour (toPROL XL)Indications:HTN, goal below 140/90,Ischemic cardiomyopathy,Aristoe nary artery disease involving [place] coronary artery of [place] heart without angina pectoris,Dyslipidem ia, goal LDL [...] 03/03/2024 Active dexAMETHasone 2 MG Oral Tablet (Decadron)Indicatio ns:Glioblastoma (HCC) Take 2 Tablets by mouth 2 times a day for 3 days, THEN 1 Tablet 2 times a day with morning and evening meals for 10 days, THEN 1 Tablet daily with breakfast for 10 days, THEN 1 Tablet every other day for 10 days. 47 Tablet 02/28/2024 4 Discontinue d(Refill) busPIRone HCl 10 MG Oral Tablet (Buspar)Indications :Anxiety state Take 1 Tablet by mouth 2 times a day as needed for Agitation or Anxiety. 60 Tablet 2 03/03/2024 4 Discontinue d(Refill) Morphine Sulfate 15 MG Oral Tablet (Msir)Indications:C ancer related pain Take 1 Tablet by mouth every 4 hours as needed for Pain, Severe. Continued script 60 Tablet 03/03/2024 4 Discontinue d(Refill) Omeprazole 20 MG Oral Capsule Delayed Release (PriLOSEC)Indicatio ns:Glioblastoma (HCC) Take 2 Capsules by mouth in the morning. 30 Capsule 03/07/2024 4 Discontinue d(Refill) Morphine Sulfate ER 60 MG Oral Tablet Extended Release (Ms Contin)Indications: Cancer related pain Take 1 Tablet by mouth in the morning and 1 Tablet before bedtime. 30 Tablet 03/08/2024 4 Discontinue d(Refill) documented as of this encounter (statuses as of 03/27/2024) Active Problems Problem Noted Date Diagnosed Date [...] as of this encounter (statuses as of 03/27/2024) Resolved Problems Problem Noted Date Diagnosed Date [...] as of this encounter (statuses as of 03/27/2024) Immunizations Name Administration Dates Next Due COVID-19 [...] encounter Miscellaneous Notes * Telephone Encounter - Sandra Cisneros LPN - 03/16/2024 9:39 AM EDT Please see MyG Patient scheduled to see Dr. Tompkins at [facility] on Thursday 03/22 * Telephone Encounter - Sandra Cisneros LPN - 03/15/2024 9:24 AM EDT MyG Sent documented in this encounter Plan of Treatment Upcoming Encounters Date Type Department Care Team (Late st Contact Info) Description 03/29/2024 3:45 PM EDT Pharmacy Pharmacy Hematology Oncology [place] [address] [place] [address] [facility], [facility] Clinic Hem/Onc [facility] [place] [address] 04/05/2024 10:30 AM EDT Laboratory Laboratory [address] [place] [phone] Alannah, Lab [address] [place] [address] 04/05/2024 11:30 AM EDT Hem/Onc Treatment Hematology/Oncology Treatment, [address] [phone] Alannah, Chair 11 Hem Onc [address] [place] [address] 04/05/2024 2:00 PM EDT Office Visit Palliative Medicine [facility] [address] [phone] Keisha Tompkins MD [address] [place] [address] [place] [id number] 04/19/2024 11:30 AM EDT Laboratory Laboratory [facility] [place] [address] [place] [phone] Al[place], Lab [facility] [address] [place] [address] 04/19/2024 12:00 PM EDT Office Visit Hematology/Oncology [facility] [address] [place] [phone] Anuja Cortez, OS[place] [address] [facility] [place] [address] 04/19/2024 12:30 PM EDT Hem/Onc Treatment Hematology/Oncology Treatment, [place] [address] [facility] [phone] 05/23/2024 4:00 PM EDT Imaging Radiology [facility] 1st [facility] [address] [facility] [place] [address] 06/13/2024 11:00 AM EDT Office Visit Audiology [facility] [address] [place] [address] Gloria Oropeza Au.D. [address] [place] [address] 06/19/2024 11:15 AM EDT Office Visit Neurosurgery, [place] [address] [place] [address] Clinic, Brain Tumor Multidisciplinary [address] [place] [address] 06/28/2024 9:50 AM EDT Office Visit [facility] [address] [place] [phone] Luz Maria Gama DO [address] [place] [address] Scheduled Procedures Name Priority Associated Diagnoses Date/Ti [...] Documents on File Type Date Recorded Patient Physician Expl anation Advance Directives and Living Will 02/25/2024 Candi Isaak signed on 11/06/2023 ADVANCE DIRECTIVE / LIVING WILL COMBINED LIVING WILL & HEALTH CARE POWER OF AIR CONTROL/ANTI AIR WARFARE OFFICER POLST 12/03/2023 9:15 AM sign date 12/01/2023 [...] the patient have Health Care Power of Loss Prevention And Safety Manager? No * Full Code Date Activated [...] Care Agent (per Health Care Power of Loss Prevention And Safety Manager document) [email or web address] Care Teams Sales Director Relationship Specialty Start Date End Date Luz Maria Gama DO [address] [place] [address] PCP - General Family Medicine 01/04/23 documented as of this encounter
--- OUTSIDE RECORDS SUMMARY | 2024-05-06 15:31 | External Medical Summary | Summary of Care ---
Author Name Unknown Organization [facility] Address [address] [facility] [place] [address] Phone [phone] Care Team Providers Care It Help Desk Manager Name Role Phone Luz Maria Gama Primary Care Provider Reason for Visit * Reason Onset Date Comments Palliative Care Follow-up 03/22/2024 Encounter Details Date Type Department Care Team (Late st Contact Info) Description 03/22/2024 Telephone Palliative Medicine, [facility] [address] [facility] 5th [place] [address] Keisha Tompkins MD [address] [place] [address] Palliative Care Follow-up Allergies No known active allergiesdocumented as of [...] suspected opioid overdose. Seek medical help immediately. http://Sionexu.be/ [email or web address] 1 mL 3 11/18/2023 Active Naloxone HCl 4 MG/0.1ML Nasal Liquid (Narcan Nasal) Administer 1 spray into 1 nostril for suspected opioid overdose. Seek immediate medical attention. https://www.Tripeese.com/watch?v= [email or web address] 1 Each 3 11/18/2023 Active Omeprazole 40 [...] below 140/90,Ischemic cardiomyopathy,Beltrán ry artery disease involving [place] coronary artery of [place] heart without angina pectoris,Dyslipidemia , goal LDL [...] mRNA, LNP-s, No Pre serve, 2-Dose Series (Manifest) 12/02/2020,10/28/2020 Pneumococcal Polysaccharide PPV23 (Pneumovax) Seasonal Influenza, [...] Telephone Encounter - Sandra Cisneros LPN - 03/27/2024 8:12 AM EDT Pt scheduled with palliative on 04/05 * Telephone Encounter - Yaquelin Dang OSA - 03/22/2024 6:45 PM EDT Follow up with Dr. Tompkins being requested for 04/19 to coordinate with Med Onc follow up. She does not have any availability that day. If you could please help out with getting this scheduled Sandra. Thank you!! * Telephone Encounter - Danielle Wu OSA - 03/22/2024 1:42 PM EDT Next MD Appt: 04/19 with Anuja Cortez (prefers noon uday) ALSO please schedule appt with Dr. Tompkins on Wednesdays with/during his treatments or before hischemo treatment time Diagnostic Follow-up: Instructions: documented in this encounter Plan of Treatment Upcoming Encounters Date Type Department Care Team (Late st Contact Info) Description 03/29/2024 3:45 PM EDT Pharmacy Pharmacy Hematology Oncology [place] [address] [place] [address] [facility], [facility] Clinic Hem/[place]c [facility] [place] [address] 04/05/2024 10:30 AM EDT Laboratory Laboratory [address] [place] [phone] Alannah, Lab [address] [place] [address] 04/05/2024 11:30 AM EDT Hem/Onc Treatment Hematology/Oncology Treatment, [address] [phone] Alannah, Chair 11 Hem On[address] [place] [address] 04/05/2024 2:00 PM EDT Office Visit Palliative Medicine [facility] [address] [phone] Keisha Tompkins MD [address] [place] [address] [place], [place] [phone] 04/19/2024 11:30 AM EDT Laboratory Laboratory [place] [address] [place] [phone] Cristobal Jaffe [facility] 200 [facility] [place] [address] 04/19/2024 12:00 PM EDT Office Visit Hematology/Oncology [facility] [place] [address] [place] [phone] Anuja Cortez CRNP [address] [place] [address] 04/19/2024 12:30 PM EDT Hem/Onc Treatment Hematology/Oncology [facility] [place] 200 [facility] [place] [phone] 05/23/2024 4:00 PM EDT Imaging Radiology [facility] 1st [facility] 132 [facility] [place] [address] 06/13/2024 11:00 AM EDT Office Visit Audiology [facility] [address] [place] [address] Gloria Oropeza Au.D. 132 [facility] [place] [address] 06/19/2024 11:15 AM EDT Office Visit Neurosurgery, [place] [address] [place] [address] Clinic, Brain Tumor Multidisciplinary [address] [place] [address] 06/28/2024 9:50 AM EDT Office Visit [facility] [address] [place] [address] Luz Maria Gama DO [address] [place] [address] Scheduled Procedures Name Priority Associated Diagnoses Date/Ti me COLONOSCOPY FLEXIBLE PROXIMA L DIAGNOSTIC Recall Encounter for screening colonoscopy Health Maintenance Due Date Last Done Comments COVID-19 Vaccine (2 4 season) 2023 06/08/2021, 12/02/2020, 10/28/2020 Influenza [...] Documents on File Type Date Recorded Patient Motor Vehicle Technician Expl 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 No * Full Code Date Activated [...] Care Agent (per Health Care Power of Real Estate Specialist document) [email or web address] Care Teams It Help Desk Manager Relationship Specialty Start Date End Date Luz Maria Gama DO [address] [place] [address] PCP - General Family Medicine 01/04/23 documented as of this encounter
--- OUTSIDE RECORDS SUMMARY | 2024-05-06 15:31 | External Medical Summary | Summary of Care ---
Author Name Unknown Organization [facility] Address [address] [place] [address] Phone [phone] Care Team Providers Care Hammerer Tab Name Role Phone Luz Maria Gama Primary Care Provider Reason for Visit * Reason Onset Date Comments Medication Refill 04/03/2024 Encounter Details Date Type Department Care Team (Late st Contact Info) Description 04/03/2024 Refill Neurosurgery, [place] [address], [place] [id number] Louis Souza IV, PA-C [address] [place] [address] Brain tumor (HCC); Brain mass Allergies No known active allergiesdocumented as of [...] suspected opioid overdose. Seek medical help immediately. http://Cloupia.be/ -[email or web address] 1 mL 3 11/18/2023 Active Naloxone HCl 4 MG/0.1ML Nasal Liquid (Narcan Nasal) Administer 1 spray into 1 nostril for suspected opioid overdose. Seek immediate medical attention. 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,Dyslipidemia , goal LDL [...] mRNA, LNP-s, No Pre serve, 2-Dose Series (Versaworks) 12/02/2020,10/28/2020 Pneumococcal Polysaccharide PPV23 (Pneumovax) Seasonal Influenza, [...] encounter Miscellaneous Notes * Telephone Encounter - Navi Lin [facility] - 04/04/2024 3:53 PM EDTRefused Prescriptions: Disp Refills levETIRAcetam 500 MG Oral Tablet (Keppra) 60 Tab*2 Sig: Take 1 Tablet by mouth in the morning and 1 Tablet before bedtime.Refused By: NAVI LIN forRefusal: Too soonReason for Refusal Comment: rx sent 03/06/24 for 3 mos supply * Telephone Encounter - Navi Lin RP - 04/04/2024 3:48 PM EDT Refill too soon. Rx for 3 month supply sent to pharmacy on 03/06/24. MyG reply sent to patient advising to contact their pharmacy for a refill. Thank you, Navi Lin, PharmD Clinical Pharmacist [facility] Pharm[facility] Services ([facility]) [phone] 04/04/2024, 3:50 PM * Telephone Encounter - Alek Garcia - 04/04/2024 8:25 AM EDTPending Prescriptions: Disp Refills levETIRAcetam 500 MG Oral Tablet (Keppra) 60 Tab*2 Sig: Take 1 Tablet by mouth in the morning and 1 Tablet before bedtime. * Telephone Encounter - Alek Garcia - 04/04/2024 8:23 AM EDT Did you pend patient's preferred pharmacy and medication before forwarding?yes Pharmacy: [facility] [address] Pending Prescriptions: Disp Refills levETIRAcetam 500 MG Oral Tablet (Keppra) 60 Tab*2 Sig: Take 1 Tablet by mouth in the morning and 1 Tablet before bedtime. Last Visit: 02/28/2024 (in office), 11/22/2023 (telemedicine) Next Visit: 06/19/2024 If no future appointments scheduled, and last appointment is greater than a year ago, please schedule patient for a follow-up appointment Last date the medication was ordered: 03/06/2024 Is this request for a controlled substance?No Urine Drug Screen:No results found for this or any previous visit. Patient Phone Numbers Labs: Lab Results Component Value Date/Time CREAT 1.1 03/22/2024 10:41 AM CREAT 1.17 11/22/2023 12:00 AM CREAT 1.1 04/02/2020 11:47 AM POTASSIUM 4.2 03/22/2024 10:41 AM POTASSIUM 4.2 11/22/2023 12:00 AM POTASSIUM 4.2 04/02/2020 11:47 AM TSH 1.77 10/25/2023 12:56 PM TSH 1.62 04/02/2020 11:47 AM LDLCALC 153 (H) 11/04/2023 01:05 PM LDLCALC 88 04/02/2020 11:47 AM LDLDIRECT NOT APPLICABLE 06/30/2017 09:38 AM ALT 39 03/22/2024 10:41 AM ALT 73 (H) 05/03/2020 01:29 PM HGBA1C 5.3 10/25/2023 12:56 PM HGBA1C 5.5 06/28/2018 11:41 AM documented in this encounter Plan of Treatment Upcoming Encounters Date Type Department Care Team (Late st Contact Info) Description 04/05/2024 10:30 AM EDT Laboratory Laboratory [facility] [place] [address] [address] [place] [phone] Cristobal Jaffe [place] [address] Gar[address] Whitley PENDING S[facility] TO [facility] [place] [address] 04/05/2024 11:30 AM EDT Hem/Onc Treatment Hematology/Oncology Treatment, [address] [place] [address] Al[place], Chair 11 Hem Onc [place] [address] [place] [address] 04/05/2024 2:00 PM EDT Office Visit Palliative Medicine [facility] [place] [address] [facility] [place] [phone] Keisha Tompkins MD [address] [place] [address] 04/05/2024 3:30 PM EDT Pharmacy Pharmacy Hematology Oncology [facility], [address] [address] [facility] Hem/Onc [facility] [place] [place] [address] 04/19/2024 11:30 AM EDT Laboratory Laboratory [facility] [address] [place] [phone] [place], Lab [facility] [address] [place] [address] 04/19/2024 12:00 PM EDT Office Visit Hematology/Oncology [facility] [address] [place] [phone] Anuja Cortez CRNP [address] [place] [address] 04/19/2024 12:30 PM EDT Hem/Onc Treatment Hematology/Oncology Treatment, [place] [address] [place] [phone] 05/23/2024 4:00 PM EDT Imaging Radiology [address] [place] [address] 06/13/2024 11:00 AM EDT Office Visit Audiology [facility] [address] [address] Gloria Oropeza Au.D. [address] [place] [address] 06/19/2024 11:15 AM EDT Office Visit Neurosurgery, [address] [address] Clinic, Brain Tumor Multidisciplinary [address] [place] [address] 06/28/2024 9:50 AM EDT Office Visit [facility] [address] [place] [address] Luz Maria Gama, DO [address] [place] [address] Scheduled Procedures Name Priority Associated Diagnoses [...] as of this encounter Visit Diagnoses Diagnosis Brain tumor (HCC) Neoplasm of unspecified nature of brain Brain mass Unspecified condition of brain documented in this encounter Advance Directives Documents on File Type Date Recorded Patient Pan Dumper Expl anation Advance Directives and Living Will 02/25/2024 Candi Mulligan signed on 11/06/2023 ADVANCE DIRECTIVE / LIVING WILL COMBINED LIVING WILL & HEALTH CARE POWER OF BID CLERK POLST 12/03/2023 9:15 AM sign date 12/01/2023 [...] have Health Care Power of Real Estate Officer? No * Full Code Date Activated Date [...] (per Health Care Power of Real Estate Officer document) Care Teams Hammerer Tab Relationship Specialty Start Date End Date Luz Maria Gama DO [address] [place] [address] PCP - General Family Medicine 01/04/23 documented as of this encounter
--- OUTSIDE RECORDS SUMMARY | 2024-05-06 15:31 | External Medical Summary ---
Author Name Unknown Address Unknown Organization K09:[facility] [address] [place] [address] Laboratory Report Ordering Provider Test Date Status BRIANNA VELAZQUEZ 04/05/2024 10:52:05 Final Observation Date Value Abnormality Reference (Units ) Status BUN 04/05/2024 10:52:05 20 6-20 (mg/dL) Final Creatinine 04/05/2024 10:52:05 0.9 0.6-1.2 (mg/dL) Final Glomerular filtration rate/1.73 sq M.predicted [Volume Rate/Area] in Serum, Plasma or Blood by Creatinine-based formula (CKD-EPI) 04/05/2024 10:52:05 >90 >=60 (mL/min) Final eGFR is calculated based on the CKD-EPI 2020 equation. Sodium 04/05/2024 10:52:05 138 135-146 (m mol/L) Final Potassium 04/05/2024 10:52:05 4.0 3.5-5.1 (m mol/L) Final Cl 04/05/2024 10:52:05 103 98-107 (mm ol/L) Final CO2 04/05/2024 10:52:05 23 22-32 (mmo l/L) Final Anion gap 04/05/2024 10:52:05 12 7-15 (mmol /L) Final Glucose 04/05/2024 10:52:05 145 Above high normal 70 -120 (mg/dL) Final Albumin 04/05/2024 10:52:05 3.9 3.8-5.0 (g /dL) Final AST (Aspartate aminotransferase) 04/05/2024 10:52:05 18 10-50 (U/L) Fin al Alk Phos 04/05/2024 10:52:05 76 35-130 (U/ L) Final Bilirubin, Total 04/05/2024 10:52:05 0.3 <=1 .2 (mg/dL) Final Calcium 04/05/2024 10:52:05 9.3 8.4-10.2 ( mg/dL) Final Protein 04/05/2024 10:52:05 6.1 6.0-8.3 (g /dL) Final ALT (Alanine aminotransferase) 04/05/2024 10:52:05 43 10-50 (U/L) Kunal cabrera Performing Location [facility] [address] [place] [address]
--- OUTSIDE RECORDS SUMMARY | 2024-05-06 15:31 | External Medical Summary | Summary of Care ---
Author Name Unknown Organization [facility] Address [address] [place] [facility] [place] [address] Phone [phone] Care Team Providers Care Emergency Medicine Medical Director Name Role Phone Luz Maria Gama Primary Care Provider Encounter Details Date Type Department Care Team (Late st Contact Info) Description 03/22/2024 Telephone Palliative Medicine, [facility] [address] [facility] 5th [place] [address] Keisha Tompkins MD [address] [place] [address] Allergies No known active allergiesdocumented as of [...] suspected opioid overdose. Seek medical help immediately. http://Bioject Medical Technologies.be/ -[email or web address] 1 mL 3 11/18/2023 Active Naloxone HCl 4 MG/0.1ML Nasal Liquid (Narcan Nasal) Administer 1 spray into 1 nostril for suspected opioid overdose. Seek immediate medical attention. https://www.Perk Dynamics.com/watch?v= n42iKsn5AqE 1 Each 3 11/18/2023 Active Omeprazole 40 [...] below 140/90,Ischemic cardiomyopathy,Beltrán ry artery disease involving [place] coronary artery of [place] heart without angina pectoris,Dyslipidemia , goal LDL [...] Miscellaneous Notes * Telephone Encounter - Danielle Wu OSA - 03/22/2024 1:42 PM EDT Next MD Appt: 04/19 with Anuja Cortez (prefers no) ALSO please schedule appt with Dr. Tompkins on Wednesdays with/during his treatments or before hischemo treatment time Diagnostic Follow-up: Instructions: documented in this encounter Plan of Treatment Upcoming Encounters Date Type Department Care Team (Late st Contact Info) Description 03/29/2024 3:45 PM EDT Pharmacy Pharmacy Hematology Oncology [address] [address] [facility], [facility] Hem/Onc [address] [place] [address] 04/05/2024 10:30 AM EDT Laboratory Laboratory [facility] [address] [place] [phone] Al[place], Lab [address]enery [address] [facility] [place] [address] 04/05/2024 11:30 AM EDT Hem[facility] [phone] Alannah, Chair 11 Hem Onc [facility] [address] [place] [address] 04/19/2024 11:30 AM EDT Laboratory Laboratory [facility] [address] [place] [phone] Alannah, Lab [address]enery [address] [facility] [place], [place] [address] 04/19/2024 12:00 PM EDT Office Visit Hematology/Oncology [facility] [address] [place], [place] [phone] Anuja Cortez, OSVALDO [address] [place], [place] [address] [address] 04/19/2024 12:30 PM EDT Hem/Onc Treatment Hematology/Oncology [address] [phone] 05/23/2024 4:00 PM EDT Imaging Radiology [address] 132 [facility] [place] [address] 06/13/2024 11:00 AM EDT Office Visit Audiology [facility] 132 [facility] [place] [address] Gloria Oropeza Au.D. [address] [place] [address] 06/19/2024 11:15 AM EDT Office Visit Neurosurgery, [place] [address] [place] [address] Clinic, Brain Tumor Multidisciplinary [address] [place] [address] 06/28/2024 9:50 AM EDT Office Visit [facility] [address] [place] [phone] Luz Maria Gama DO [address] [place] [address] Scheduled Procedures Name Priority Associated Diagnoses Date/Ti [...] Documents on File Type Date Recorded Patient Adjunct Professor Of English Expl anation Advance Directives and Living Will 02/25/2024 Candi Mulligan signed on 11/06/2023 ADVANCE DIRECTIVE / LIVING WILL COMBINED LIVING WILL & HEALTH CARE POWER OF FINANCE VICE PRESIDENT POLST 12/03/2023 9:15 AM sign date 12/01/2023 [...] the patient have Health Care Power of Satellite Communications Engineer? No * Full Code Date Activated [...] Care Agent (per Health Care Power of Satellite Communications Engineer document) Care Teams Emergency Medicine Medical Director Relationship Specialty Start Date End Date Luz Maria Gama DO [address] [place] [address] PCP - General Family Medicine 01/04/23 documented as of this encounter
--- OUTSIDE RECORDS SUMMARY | 2024-05-06 15:31 | External Medical Summary | Summary of Care ---
Author Name Unknown Organization [facility] Address [address] [place] [facility] [place] [address] Phone [phone] Care Team Providers Care Transfer Agent Name Role Phone Luz Maria Gama Primary Care Provider Encounter Details Date Type Department Care Team (Late st Contact Info) Description 03/22/2024 Telephone Palliative Medicine, [facility] [address] [facility] 5th [place] [address] Keisha Tompkins MD [address] [place] [address] Allergies No known active allergiesdocumented [...] suspected opioid overdose. Seek medical help immediately. http://ShopYourWorld.be/ -[email or web address] 1 mL 3 11/18/2023 Active Naloxone HCl 4 MG/0.1ML Nasal Liquid (Narcan Nasal) Administer 1 spray into 1 nostril for suspected opioid overdose. Seek immediate medical attention. https://www.Is That Odd.com/watch?v= z95nOff2DsD 1 Each 3 11/18/2023 Active Omeprazole 40 [...] below 140/90,Ischemic cardiomyopathy,Beltrán ry artery disease involving [place] coronary artery of [place] heart without angina pectoris,Dyslipidemia , goal LDL [...] encounter Miscellaneous Notes * Telephone Encounter - Yaquelin Dang OSA [...] Pharmacy Pharmacy Hematology Oncology [facility] [address] [place] [address] [facility], [facility] Hem/Onc [address] [place] [address] 04/05/2024 10:30 AM EDT Laboratory Laboratory [facility] [place] [address] [place] [phone] Alannah, Lab Scenery [address] [place] [address] 04/05/2024 11:30 AM EDT Hem/Onc Treatment Hematology/Oncology Treatment [address] [place] [phone] Alannah, Chair 11 Hem Onc [place] 200 [facility] [place] [address] 04/19/2024 11:30 AM EDT Laboratory Laboratory [facility] Al[place] [address] [place] [address] Alannah, Lab [address]enery [address] [place] [address] 04/19/2024 12:00 PM EDT Office Visit Hematology/Oncology [facility] [place] [address] [place] [phone] Anuja Cortez CRNP [address] [place] [address] [place], [place] [phone] 04/19/2024 12:30 PM EDT Hem/Onc Treatment Hematology/Oncology Treatment, [place] [address] [facility] [phone] 05/23/2024 4:00 PM EDT Imaging Radiology [address] [facility] [place] [address] 06/13/2024 11:00 AM EDT Office Visit Audiology [facility] [address] [place] [address] Gloria Oropeza Au.D. 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 No * Full Code Date Activated Date [...] Care Agent (per Health Care Power of Polls Or Surveys Interviewer document) [email or web address] Transfer Agent Relationship Specialty Start Date End Date Luz Maria Gama DO [address] [place] [address] PCP - General Family Medicine 01/04/23 documented as of this encounter
--- OUTSIDE RECORDS SUMMARY | 2024-05-06 15:31 | External Medical Summary | Summary of Care ---
Author Name Unknown Organization [facility] Address [address] [facility] [address] Phone [phone] Care Team Providers Care Hr Coordinator Name Role Phone Luz Maria Gama Primary Care Provider Reason for Visit * Reason Onset Date Comments Palliative Care Follow-up 03/15/2024 Encounter Details Date Type Department Care Team (Late st Contact Info) Description 03/15/2024 9:15 AM EDT Scheduled Telephone Palliative Medicine, [address] 5th [place] [address] Nh, Nurse Palliative Medicine [address] [phone] Allergies No known active allergiesdocumented as of [...] suspected opioid overdose. Seek medical help immediately. http://Cortriumu.be /-[email or web address] 1 mL 3 11/18/2023 Active Naloxone HCl 4 MG/0.1ML Nasal Liquid (Narcan Nasal) Administer 1 spray into 1 nostril for suspected opioid overdose. Seek immediate medical attention. https://www.CanFite BioPharma.com/watch? v=x43cFfe3ZwK 1 Each 3 11/18/2023 Active Omeprazole 40 [...] below 140/90,Ischemic cardiomyopathy,Aristeo nary artery disease involving [place] coronary artery of [place] heart without angina pectoris,Dyslipidem ia, goal LDL [...] Patient scheduled to see Dr. Tompkins at [facility] on Thursday 03/22 * Telephone Encounter - Sandra Cisneros LPN - 03/15/2024 9:24 AM EDT MyG Sent documented in this encounter Plan of Treatment Upcoming Encounters Date Type Department Care Team (Late st Contact Info) Description 03/29/2024 3:45 PM EDT Pharmacy Pharmacy Hematology Oncology [place] [address] [place] [address] [facility], [facility] Clinic Hem/Onc [facility] [address] 04/05/2024 10:30 AM EDT Laboratory Laboratory [address] [place] [phone] [place], Lab [address] [place] [address] 04/05/2024 11:30 AM EDT Hem/Onc Treatment Hematology/Oncology Treatment, [address] [phone] Alannah, Chair 11 Hem Onc [address] [place] [address] 04/05/2024 2:00 PM EDT Office Visit Palliative Medicine [facility] [address] [phone] Keisha Tompkins MD [address] [place] [address] [place] [phone] 04/19/2024 11:30 AM EDT Laboratory Laboratory [facility] Al[place] [address] [place] [phone] Al[place], Lab [facility] [address] [place] [address] 04/19/2024 12:00 PM EDT Office Visit Hematology/Oncology [facility] [address] [place] [phone] Anuja Cortez, OSVALDO [address] [facility] [place] [address] 04/19/2024 12:30 PM EDT Hem/Onc Treatment Hematology/Oncology Treatment, [place] [facility] [phone] 05/23/2024 4:00 PM EDT Imaging Radiology [facility] [address] [facility] [place] [address] 06/13/2024 11:00 AM EDT Office Visit Audiology [facility] [address] [place] [place] [address] Gloria Oropeza Au.D. [address] [place] [address] 06/19/2024 11:15 AM EDT Office Visit Neurosurgery, [place] [address] [place] [address] Clinic, Brain Tumor Multidisciplinary [address] [place] [address] 06/28/2024 9:50 AM EDT Office Visit [facility] [address] [place] [phone] Luz Maria Gama DO [address] [place] [address] Scheduled Procedures Name Priority Associated Diagnoses Date/Ti [...] Documents on File Type Date Recorded Patient Corporate Physical Security Supervisor Expl anation Advance Directives and Living Will 02/25/2024 Candi Isaak signed on 11/06/2023 ADVANCE DIRECTIVE / LIVING WILL COMBINED LIVING WILL & HEALTH CARE POWER OF TRASH COLLECTOR SUPERVISOR POLST 12/03/2023 9:15 AM sign date [...] the patient have Health Care Power of Clinical Therapist? No * Full Code Date Activated Date [...] Care Agent (per Health Care Power of Clinical Therapist document) [email or web address] Care Teams Hr Coordinator Relationship Specialty Start Date End Date Luz Maria Gama DO [address] [place] [address] PCP - General Family Medicine 01/04/23 documented as of this encounter
--- OUTSIDE RECORDS SUMMARY | 2024-05-06 15:32 | External Medical Summary | Summary of Care ---
Author Name Unknown Organization [facility] Address [address] [facility] [place] [address] Phone [phone] Care Team Providers Care Pattern Technician Name Role Phone Luz Maria Gama Tiffany LOUIE Primary Care Provider Reason for Visit * Reason Onset Date Comments Palliative Care Follow-up 03/15/2024 Encounter Details Date Type Department Care Team (Late st Contact Info) Description 03/15/2024 9:15 AM EDT Scheduled Telephone Palliative Medicine, [address] 5th [place] [address] [place], Nurse Palliative Medicine [address] [phone] Allergies No known active allergiesdocumented as of this encounter (statuses as of 03/16/2024) Medications Medication Sig Dispensed Refills Start Date [...] 06/24/2023 Active Lisinopril 20 MG Oral Tablet (Prinivil)Indication s:HTN, goal below 140/90 Take 1 Tablet by mouth in the morning. 90 Tablet 3 11/04/2023 Active CPAP every night at bedtime. Active Naloxone HCl 0.4 MG/ML Injection Solution (Narcan)Indications: Brain tumor (HCC),Brain mass Inject 1mL into a large muscle for suspected opioid overdose. Seek medical help immediately. [email or web address].be/ [email or web address] 1 mL 3 11/18/2023 Active Naloxone HCl 4 MG/0.1ML Nasal Liquid (Narcan Nasal) Administer 1 spray into 1 nostril for suspected opioid overdose. Seek immediate medical attention. https://www.[employer].com/watch?v= [email or web address] 1 Each 3 11/18/2023 Active Omeprazole 40 MG Oral Capsule Delayed Release (PriLOSEC) Take 1 Capsule by mouth in the morning. 12/27/2023 Active dexAMETHasone 4 MG Oral Tablet (Decadron) Take 1 Tablet by mouth 2 times a day with morning and evening meals. 12/27/2023 Active Sulfamethoxazole-Tri methoprim 800-160 MG Oral Tablet (Bactrim DS) Every other day during radiation 12/27/2023 Active Doxycycline Monohydrate 50 MG Oral CapsuleIndications:R osacea Take 1 capsule by mouth once daily 90 Capsule 1 01/10/2024 Active Aspirin 81 MG Oral Tablet ChewableIndications: Ischemic cardiomyopathy Take 1 Tablet by mouth in the morning. 30 Tablet 11 02/08/2024 Active dexAMETHasone 2 MG Oral Tablet (Decadron)Indication s:Glioblastoma (HCC) Take 2 Tablets by mouth 2 times a day for 3 days, THEN 1 Tablet 2 times a day with morning and evening meals for 10 days, THEN 1 Tablet daily with breakfast for 10 days, THEN 1 Tablet every other day for 10 days. 47 Tablet 02/28/2024 04/01/2024 Active busPIRone HCl 10 MG Oral Tablet (Buspar)Indications: Anxiety state Take 1 Tablet by mouth 2 times a day as needed for Agitation or Anxiety. 60 Tablet 2 03/03/2024 Active Morphine Sulfate 15 MG Oral Tablet (Msir)Indications:Ca ncer related pain Take 1 Tablet by mouth every 4 hours as needed for Pain, Severe. Continued script 60 Tablet 03/03/2024 Active Polyethylene Glycol 3350 17 GM Oral Packet (Miralax)Indications :Constipation due to pain medication Take 1 Packet by mouth in the morning. 30 Each 03/03/2024 Active Sennosides 8.6 MG Oral Tablet (Senokot)Indications :Constipation due to pain medication Take 2 Tablets by mouth at bedtime. 60 Tablet 03/03/2024 Active Omeprazole 20 MG Oral Capsule Delayed Release (PriLOSEC)Indication s:Glioblastoma (HCC) Take 2 Capsules by mouth in the morning. 30 Capsule 03/07/2024 Active levETIRAcetam 500 MG Oral Tablet (Keppra)Indications: Brain tumor (HCC),Brain mass Take 1 Tablet by mouth in the morning and 1 Tablet before bedtime. 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 30 Tablet 03/08/2024 Active documented as of this encounter (statuses as of 03/16/2024) Active Problems Problem Noted Date Diagnosed Date [...] as of this encounter (statuses as of 03/16/2024) Resolved Problems Problem Noted Date Diagnosed Date [...] as of this encounter (statuses as of 03/16/2024) Immunizations Name Administration Dates Next Due COVID-19 mRNA, LNP-s, No Pre serve, 2-Dose Series (VODECLIC) 12/02/2020,10/28/2020 Pneumococcal Polysaccharide PPV23 (Pneumovax) Seasonal Influenza, [...] Patient scheduled to see Dr. Tompkins at [facility] on Thursday 03/22 * Telephone Encounter - Sandra Cisneros LPN - 03/15/2024 9:24 AM EDT MyG Sent documented in this encounter Plan of Treatment Upcoming Encounters Date Type Department Care Team (Late st Contact Info) Description 03/22/2024 10:30 AM EDT Laboratory Laboratory [facility] [address] [place] [phone] [place], Lab Scenery [address] [facility] [place] [address] 03/22/2024 11:00 AM EDT Office Visit Palliative Medicine [facility] 200 [place] [phone] Keisha Tompkins MD [address] [place] [address] 03/22/2024 12:00 PM EDT Hem/Onc Treatment Hematology/Oncology Treatment, [address] [place] [phone] Alannah, Chair 1 Hem Onc [facility] [address] [facility] [place], [place] [address] 03/24/2024 10:00 AM EDT Telemedicine Palliative Medicine, [facility] [address] [facility] 5th [place] [address] Keisha Tompkins MD [address] [place] [address] 03/29/2024 3:45 PM EDT Pharmacy Pharmacy Hematology Oncology [facility], [place] [address] [place] [address] [facility] Hem/Onc [address] [place] [address] 05/23/2024 4:00 PM EDT Imaging Radiology [facility] 1st [facility], [place] [address] [place] [address] 06/19/2024 11:15 AM EDT Office Visit Neurosurgery, [place] [address] [place] [address] Clinic, Brain Tumor Multidisciplinary [address] [place] [address] 06/28/2024 9:50 AM EDT Office Visit [facility] [address] [place] [address] Luz Maria Gama, [address] [place] [address] Scheduled Procedures Name Priority Associated Diagnoses Date/Ti me COLONOSCOPY FLEXIBLE PROXIMA L DIAGNOSTIC Recall Encounter for screening colonoscopy Health Maintenance Due Date Last Done Comments COVID-19 Vaccine (2022-10 4 season) 2023 06/08/2021, 12/02/2020, 10/28/2020 Influenza Vaccine (FLU shot) (Season Ended) 2024 07/03/2020, 06/30/2018 Depression Screening 11/18/2024 11/19/2023 Colonoscopy Discontinued 09/01/2016, 09/01/2016 Colorectal Cancer Screening Discontinued Albumin/Creatinine Ratio Discontinued 01/10/2019 Zoster Vaccines Completed 05/19/2021, 07/03/2020 Cologuard Discontinued Fecal Occult Blood Test Discontinued Sigmoidoscopy Discontinued documented as of this encounter Medical Devices Not on filedocumented as of this encounter Advance Directives Documents on File Type Date Recorded 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 No * Full Code Date Activated Date [...] Care Agent (per Health Care Power of Car Barn Laborer document) [email or web address] Care Teams Pattern Technician Relationship Specialty Start Date End Date Luz Maria Gama DO [address] [place] [address] PCP - General Family Medicine 01/04/23 documented as of this encounter
--- OUTSIDE RECORDS SUMMARY | 2024-05-06 15:32 | External Medical Summary | Summary of Care ---
Author Name Unknown Organization [facility] Address [address] [place] [facility] [place] [address] Phone [phone] Care Team Providers Care Histologic Aide Name Role Phone Luz Maria Gama Primary Care Provider [phone] Reason for Visit * Reason Comments Follow Up Return Encounter Details Date Type Department Care Team (Late st Contact Info) Description 03/22/2024 11:00 AM EDT Office Visit Palliative Medicine [facility] [address] [place] [address] Keisha Tompkins MD [address] [place] [address] [place] [address] Cancer related pain*; Anxiety state; Palliative care encounter Allergies No known active [...] suspected opioid overdose. Seek medical help immediately. http://[email or web address].be [email or web address] 1 mL 3 11/18/2023 Active Naloxone HCl 4 MG/0.1ML Nasal Liquid (Narcan Nasal) Administer 1 spray into 1 nostril for suspected opioid overdose. Seek immediate medical attention. https://www.[employer].com/watch? v=[email or web address] 1 Each 3 11/18/2023 Active Omeprazole 40 [...] below 140/90,Ischemic cardiomyopathy,Aristeo nary artery disease involving ruby coronary artery of ruby heart without angina pectoris,Dyslipidem ia, goal LDL [...] or Anxiety. 60 Tablet 2 03/22/2024 Active busPIRone HCl 10 MG Oral [...] script 60 Tablet 03/03/2024 4 Discontinue d(Refill) Morphine Sulfate ER 60 [...] Sign Reading Time Taken Comments Blood Pressure 116/77 03/22/2024 10:51 AM EDT Pulse 90 03/22/2024 10:51 AM EDT Temperature 36 C (96.8 F) 03/22/2024 10: 51 AM EDT Respiratory Rate - - Oxygen Saturation 99% 03/22/2024 10: 51 AM EDT Inhaled Oxygen Concentration - - Weight 136.4 kg (300 lb 11.2 oz) 2023 10:51 AM EDT Height - - Body Mass Index 38.61 11/05/2023 10:12 PM EST documented in this [...] Progress Notes * Keisha Tompkins MD - 03/22/2024 11:00 AM EDT Palliative Medicine Outpatient Progress Note [facility] Palliative Medicine Outreach [address] [place] [id number] Name: Remy Lujan Date: 03/22/2024 HPI: Remy Lujan is a 58 year old male with glioblastoma seen in follow-up for goals of care and symptom management. At last visit, we increased his MS Contin to 60mg BID and continued the MS IR to 15mg q4h PRN Concerned about SE from chemotherapy, worried things may last for 6 weeks. Overall he still thinks he wants to try treatment but he does change his mind frequently about this. Palliative symptoms: Pain: Pain is OK Located at: head mainly Currently taking: MS Contin 60mg BID with MS IR 15mg 2x/day Waking up with pain despite increase in MS Contin Nausea/Vomiting: no Appetite: no Constipation: no Confusion: yes, at baseline Sleep issues: OK Dyspnea: no Mood issues: anxious at times Falls: no Other: Examination: BP 116/77 (BP Site: Left Arm, BP Position: Sitting, BP Cuff Size: Large) | Pulse 90 | Temp 36 C (96.8 F) (Tympanic) | Wt (!) 136.4 kg (300 lb 11.2 oz) | SpO2 99% | BMI 38.61 kg/m | BSA 2.67 m Constitutional: no acute distress, chronically ill HENT: normocephalic, atraumatic. Eyes: anicteric, sclera and conjunctiva normal. Neck: no stridor Chest: normal respiratory effort Abdominal: nondistended Extremities: no edema Data Review: External notes reviewed: - Reviewed notes from Hem onc nursing, plan will be that Dr Song can stop by and see pt in infusion center - Reviewed notes from Onc at [facility],pt will also start Optune device soon Lab / Imaging Results: Cr 1.1, normal Information obtained from mykel Christopher partenr for collateral history Discussion with other team members: I discussed patient with Oncology Decision-making Capacity: Does Patient have Decisional Capacity? y Does Patient have a Healthcare Agent? y Advanced Care Planning (see ACP Tab): AD in EMR: y POLST in EMR: y, DNR LIMITED,12/01/23 ASSESSMENT/PLAN: Remy Lujan is a 58 year old male seen in follow-up for goals of care and pain and symptom management. Gliobastoma Starting infusion today then oral chemo at home, then start Optune device and MRI in 3 mo Cancer related pain Continue MS Contin 60mg BID, refill sent Increase MS IR to 30mg q4h PRN I have reviewed the patients controlled substance dispensing history in the Prescription Drug Monitoring Program in compliance with the [facility] regulations before prescribing a controlled substance. Anxiety Continue Buspar, refill sent Goals of care/Palliative care encounter Wants to continue cancer directed therapy If declines, would want to be comfortable Code status if admitted: DNR but ok w/LIMITED tx Follow up in 2 weeks They are able to do video visits. Next visit with me. Keisha Tompkins MD [facility] Palliative Medicine [phone] documented in this encounter Nursing Notes * Salome Belle, MED ASSIST - 03/22/2024 10:52 AM EDT Patient identifed by name and [...] it for you? ALREADY ACTIVE Filed Vitals: 03/22/24 1051 BP: 116/77 Pulse: 90 Temp: 36 C (96.8 F) TempSrc: Tympanic SpO2: 99% Weight: (!) 136.4 kg (300 lb 11.2 oz) Patient was instructed to not get up [...] Team (Late st Contact Info) Description 03/22/2024 12:00 PM EDT Hem/Onc Treatment Hematology/Oncology Treatment, [place] [address] [place] [address] [place], Chair 1 Hem Onc Scenery [address] [place] [address] Arrived 03/29/2024 3:45 PM EDT Pharmacy Pharmacy Hematology Oncology [facility], [address] [address] [facility] Hem/Onc [address] [place] [address] 05/23/2024 4:00 PM EDT Imaging Radiology [address] [place] [address] 06/13/2024 11:00 AM EDT Office Visit Audiology [facility] [address] [place] [address] Gloria Oropeza Au.D. [address] [place] [address] 06/19/2024 11:15 AM EDT Office Visit Neurosurgery, [address] [address] Clinic, Brain Tumor Multidisciplinary [address] [place] [address] [place] [address] 06/28/2024 9:50 AM EDT Office Visit [facility] [address] [place] [phone] Luz Maria Gama, DO [address] [place] [address] Scheduled Procedures Name Priority Associated [...] pain- Primary Neoplasm related pain (acute) (chronic) Anxiety state Anxiety state, unspecified Palliative care encounter Encounter for palliative care documented in this encounter Advance Directives Documents on File Type Date Recorded 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 No * Full Code Date Activated Date [...] Care Agent (per Health Care Power of Automobile Club Membership Sales Agent document) [email or web address] Care Teams Histologic Aide Relationship Specialty Start Date End Date Luz Maria Gama DO [address] [place] [address] PCP - General Family Medicine 01/04/23 documented as of this encounter"
--- OUTSIDE RECORDS SUMMARY | 2024-05-06 15:32 | External Medical Summary ---
Author Name Unknown Address Unknown Organization K[facility] [place] [address] Laboratory Report Ordering Provider Test Date Status BRIANNA VELAZQUEZ 03/22/2024 10:43:07 Final Observation Date Value Abnormality Reference (Units ) Status Color of Urine by Auto 03/22/2024 10:43:07 Yellow Light Yellow, Yellow, Dark Yellow Final Clarity, Urine 03/22/2024 10:43:07 Clear Clear Final Glucose [Mass/volume] in Urine by Automated test strip 03/22/2024 10:43:07 Negative Negative (mg/dL) Final Bilirubin.total [Presence] in Urine by Automated test strip 03/22/2024 10:43:07 Small Abnormal Negative Final Ketones [Mass/volume] in Urine by Automated test strip 03/22/2024 10:43:07 Trace Abnormal Negative (mg/dL) Final Specific gravity, Urine 03/22/2024 10:43:07 >=1.030 1.003-1.030 Final Hemoglobin [Presence] in Urine by Automated test strip 03/22/2024 10:43:07 Negative Negative Final pH, Urine 03/22/2024 10:43:07 5.5 5.0-7.5 (Units) Final Protein [Mass/volume] in Urine by Automated test strip 03/22/2024 10:43:07 Negative Negative (mg/dL) Final Urobilinogen [Mass/volume] in Urine by Automated test strip 03/22/2024 10:43:07 1.0 0.2, 1.0 (mg/dL) Final Nitrite [Presence] in Urine by Automated test strip 03/22/2024 10:43:07 Negative Negative Final Leukocyte esterase [Presence] in Urine by Automated test strip 03/22/2024 10:43:07 Negative Negative Final Annotation Comment 03/22/2024 10:43:07 Final Screen negative - Microscopi c not performed. Performing Location [facility] [place] [address]
--- OUTSIDE RECORDS SUMMARY | 2024-05-06 15:32 | External Medical Summary | Summary of Care ---
Author Name Unknown Organization [facility] Address [address] [facility] [place] [address] Phone [phone] Care Team Providers Care Hoist Mechanic Name Role Phone Luz Maria Gama Tiffany LOUIE Primary Care Provider Reason for Visit * Reason Onset Date Comments Palliative Care Follow-up 03/15/2024 Encounter Details Date Type Department Care Team (Late st Contact Info) Description 03/15/2024 9:15 AM EDT Scheduled Telephone Palliative Medicine, [address]th [place] [address] [place], Nurse Palliative Medicine [address] [phone] Allergies No known active allergiesdocumented as of [...] suspected opioid overdose. Seek medical help immediately. [email or web address]/ [email or web address] 1 mL 3 11/18/2023 Active Naloxone HCl 4 MG/0.1ML Nasal Liquid (Narcan Nasal) Administer 1 spray into 1 nostril for suspected opioid overdose. Seek immediate medical attention. https://www.REBIScan.com/watch?v= [email or web address] 1 Each 3 11/18/2023 Active Omeprazole 40 [...] below 140/90,Ischemic cardiomyopathy,Coron christiane artery disease involving pokagon coronary artery of pokagon heart without angina pectoris,Dyslipidemi a, goal LDL [...] mRNA, LNP-s, No Pre serve, 2-Dose Series (Catmoji) 12/02/2020,10/28/2020 Pneumococcal Polysaccharide PPV23 (Pneumovax) Seasonal Influenza, [...] Patient scheduled to see Dr. Tompkins at [facility] on Thursday 03/22 * Telephone Encounter - Sandra Cisneros LPN - 03/15/2024 9:24 AM EDT MyG Sent documented in this encounter Plan of Treatment Upcoming Encounters Date Type Department Care Team (Late st Contact Info) Description 03/22/2024 10:30 AM EDT Laboratory Laboratory [facility] [address] [place] [phone] Alannah, Lab Scenery 200 [facility] [place] [address] 03/22/2024 11:00 AM EDT Office Visit Palliative Medicine [facility] 200 [place] [phone] Keisha Tompkins MD [address] [place] [address] 03/22/2024 12:00 PM EDT Hem/Onc Treatment Hematology/Oncology Treatment, [address] [place] [phone] Alannah, Chair 1 Hem Onc [facility] 200 [facility] [place], [place] [address] 03/24/2024 10:00 AM EDT Telemedicine Pall[facility] 400 [facility] 5th [place] [address] Keisha Tompkins MD [address] [place] [address] 03/29/2024 3:45 PM EDT Pharmacy Pharmacy Hematology Oncology [facility], [place] [address] [place] [address] [facility] Hem/Onc [address] [place] [address] 05/23/2024 4:00 PM EDT Imaging Radiology [facility] 1st [facility] [place] [address] [place] [address] 06/19/2024 11:15 AM EDT Office Visit Neurosurgery, [place] [address] [place] [address] Clinic, Brain Tumor Multidisciplinary [address] [place] [address] 06/28/2024 9:50 AM EDT Office Visit [facility] [address] [place] [address] Luz Maria Gama, [address] [place] [address] Scheduled Procedures Name Priority Associated Diagnoses Date/Ti [...] Documents on File Type Date Recorded 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 No * Full Code Date Activated Date [...] Care Agent (per Health Care Power of Grinder Machine Knife Setter document) [email or web address] Care Teams Hoist Mechanic Relationship Specialty Start Date End Date Luz Maria Gama DO [address] [place] [address] PCP - General Family Medicine 01/04/23 documented as of this encounter
--- OUTSIDE RECORDS SUMMARY | 2024-05-06 15:32 | External Medical Summary | Summary of Care ---
Author Name Unknown Organization [facility] Address [address] [place] [address] Phone [phone] Care Team Providers Care Gearcase Assembler Name Role Phone Luz Maria Gama Tiffany LOUIE Primary Care Provider [phone] Reason for Visit * Reason Comments Medication Management * Evaluate & Treat - Unlimited Visits (Within 10 days (routine)) - Pending Review Specialty Diagnoses / Procedures Referred By Jerel jackson Referred To Contact Pharmacist / Pharmacy Diagnoses Glioblastoma (HCC) Martha Rivera, [facility] [address] [place] [address] Referral ID Status Reason Start Date Expiration Date Visits Requested Visits Authorized [id number] Pending Review Specialty Services Required 03/03/2024 99 [phone] Encounter Details Date Type Department Care Team (Late st Contact Info) Description 03/13/2024 3:45 PM EDT Pharmacy Pharmacy Hematology Oncology [facility] [address] [place] [address] [facility] Hem/Onc [address] [place] [address] Glioblastoma (HCC)* Allergies No known active allergiesdocumented as of this encounter (statuses as of 03/13/2024) Medications Medication Sig Dispensed Refills Start Date [...] suspected opioid overdose. Seek medical help immediately. [email or web address] 1 mL 3 11/18/2023 Active Naloxone HCl 4 MG/0.1ML Nasal Liquid (Narcan Nasal) Administer 1 spray into 1 nostril for suspected opioid overdose. Seek immediate medical attention. https://www.EngTechNow.com/watch?v= [email or web address] 1 Each 3 11/18/2023 Active Omeprazole 40 [...] as of this encounter (statuses as of 03/13/2024) Active Problems Problem Noted Date Diagnosed Date [...] as of this encounter (statuses as of 03/13/2024) Resolved Problems Problem Noted Date Diagnosed Date Resolved Date Brain mass 11/08/2023 11/19/2023 Bradycardia, sinus 01/21/2023 Body mass index (BMI) of 45. 0 to 49.9 in adult 07/29/2020 11/04/2020 Overview: Per Obesity protocol - Body mass index (BMI) of 40. 0 to 44.9 in adult 06/21/2017 08/01/2020 Overview: Per Obesity protocol #1 Venous insufficiency 04/23/2016 024 Testicular hypogonadism 09/24/2015 08/3 HTN (hypertension) 08/17/2015 6 Overview: Per HTN Protocol NSTEMI (non-ST elevated myoc ardial infarction) 08/16/2015 08/17/2015 documented as of this encounter (statuses as of 03/13/2024) Immunizations Name Administration Dates Next Due COVID-19 [...] this encounter Progress Notes * Martha Rivera, [facility] - 03/13/2024 12:20 PM EDT Lomustine shipping from [employer] today. Per review of notes, patient starting treatment on 03/22. Will follow-up on 03/29 to assess tolerability to treatment. Martha Rivera, PharmD, BCOP Ambulatory Clinical Pharmacist | Oral Chemotherapy Clinic [facility] 03/13/2024, 12:22 PM documented in this encounter Plan of Treatment Upcoming Encounters Date Type Department Care Team (Late st Contact Info) Description 03/15/2024 9:15 AM EDT Scheduled Telephone Palliative Medicine, [address] 5th [place] [address] [place], Nurse Palliative Medicine [address] [phone] 03/22/2024 10:30 AM EDT Laboratory Laboratory [address] [place] [address] Al[place], Lab [address] [place] [address] 03/22/2024 11:00 AM EDT Office Visit Palliative Medicine [address] [place] [phone] Keisha Tompkins MD [address] [place] [address] 03/22/2024 12:00 PM EDT Hem/Onc Treatment Hematology/Oncology Treatment, [address] [place] [phone] Alannah, Chair 1 Hem Onc [address] [place] [address] 03/24/2024 10:00 AM EDT Telemedicine Palliative Medicine, [address] [place] [address] Keisha Tompkins MD [address] [place] [address] 03/29/2024 3:45 PM EDT Pharmacy Pharmacy Hematology Oncology [facility] [place] [address] [place] [address] [facility] Hem/Onc [address] [place] [address] 05/23/2024 4:00 PM EDT Imaging Radiology [address], [address] [place] [address] 06/19/2024 11:15 AM EDT Office Visit Neurosurgery, [place] [address] [place] [address] Clinic, Brain Tumor Multidisciplinary [address] [place] [address] 06/28/2024 9:50 AM EDT Office Visit [facility] [address] [place] [phone] Luz Maria Gama, DO [address] [place] [address] Scheduled Procedures Name Priority Associated Diagnoses Date/Ti me COLONOSCOPY FLEXIBLE PROXIMA L DIAGNOSTIC Recall Encounter for screening colonoscopy Scheduled Referrals Name Type Priority Associated Diagnoses Orde r Schedule PHARMACIST MEDS THERAPY MGMT REFERRAL OP Referral Within 10 days (routine) Glioblastoma (HCC) Ordered: 03/03/2024 Health Maintenance Due Date Last Done Comments [...] Documents on File Type Date Recorded Patient Retail Account Specialist Expl anation Advance Directives and Living Will 02/25/2024 Candi Isaak signed on 11/06/2023 ADVANCE DIRECTIVE / LIVING WILL COMBINED LIVING WILL & HEALTH CARE POWER OF TUBING OILER POLST 12/03/2023 9:15 AM sign date 12/01/2023 [...] the patient have Health Care Power of Civil Lawyer? No * Full Code Date Activated Date [...] File Name Relationship Healthcare Agent Relationship Communication Cadni Mulligan Significant Other Health Care Agent (per Health Care Power of Civil Lawyer document) [email or web address] Care Teams Gearcase Assembler Relationship Specialty Start Date End Date Luz Maria Gama DO [address] [place] [address] PCP - General Family Medicine 01/04/23 documented as of this encounter"
--- OUTSIDE RECORDS SUMMARY | 2024-05-06 15:32 | External Medical Summary | Summary of Care ---
Author Name Unknown Organization [facility] Address [address] [facility] [address] Phone [phone] Care Team Providers Care Brancher Name Role Phone Luz Maria Gama Primary Care Provider [phone] Reason for Visit * Reason Comments Outpatient Testing Encounter Details Date Type Department Care Team (Late st Contact Info) Description 03/22/2024 10:30 AM EDT Laboratory Laboratory [facility] [place] [address] [place] [phone] [place], Lab Scenery [address] [place] [address] Glioblastoma (HCC) Allergies No known active allergiesdocumented [...] suspected opioid overdose. Seek medical help immediately. [email or web address] 1 mL 3 11/18/2023 Active Naloxone HCl 4 MG/0.1ML Nasal Liquid (Narcan Nasal) Administer 1 spray into 1 nostril for suspected opioid overdose. Seek immediate medical attention. https://www.Empathy Co.com/watch?v= [email or web address] 1 Each 3 11/18/2023 Active Omeprazole 40 [...] the morning. 30 Tablet 11 02/08/2024 Active busPIRone HCl 10 MG Oral Tablet (Buspar)Indications:A nxiety state Take 1 Tablet by mouth 2 times a day as needed for Agitation or Anxiety. 60 Tablet 2 03/03/2024 Active Morphine Sulfate 15 MG Oral Tablet (Msir)Indications:Can cer related pain [...] below 140/90,Ischemic cardiomyopathy,Beltrán ry artery disease involving [place] coronary artery of [place] heart without angina pectoris,Dyslipidemia , goal LDL [...] Tablet before bedtime. 30 Tablet 03/08/2024 Active dexAMETHasone 2 MG Oral Tablet (Decadron)Indications [...] Care Team (Latest Contact Info) Description 03/22/2024 11:00 AM EDT Office Visit Palliative Medicine [facility]ry [facility] [address] [phone] Keisha Tompkins MD [address] [place] [address] [place] [address] Palliative Medicine Outpatient Progress Note 03/22/2024 12:00 PM EDT Hem/Onc Treatment Hematology/Oncology Treatment, [address] [phone] Alannah, Chair 1 Hem Onc [address] [address] Arrived 03/29/2024 3:45 PM EDT Pharmacy Pharmacy Hematology Oncology [facility] [place] [address] [place] [address] [facility] Hem[facility]Onc [address] [place] [address] 05/23/2024 4:00 PM EDT Imaging Radiology [address] [facility] [place] [address] 06/13/2024 11:00 AM EDT Office Visit Audiology [facility] [place] [address] Gloria Oropeza Au.D. [facility] [place] [address] 06/19/2024 11:15 AM EDT Office Visit Neurosurgery, [place] [address] [place] [address] Clinic, Brain Tumor Multidisciplinar y [address] [place] [address] 06/28/2024 9:50 AM EDT Office Visit [address] [phone] Luz Maria Gama, DO [address] [place] [address] Pending Results Name Type Priority Associated Diagnoses Date /Time CBC WITH WBC DIFFERENTIAL Lab STAT Glioblastoma (HCC) 03/22/2024 10:41 AM EDT COMPREHENSIVE METABOLIC PANEL Lab STAT Glioblastoma (HCC) 03/22/2024 10:41 AM EDT CBC Lab STAT Glioblastoma (HCC) 03/22/2024 10:41 AM EDT DIFFERENTIAL, AUTOMATED Lab STAT Glioblastoma (HCC) 03/22/2024 10:41 AM EDT URINALYSIS, REFLEX TO MICROSCOPIC Lab STAT Glioblastoma (HCC) 03/22/2024 10:43 AM EDT Scheduled Procedures Name Priority Associated [...] Documents on File Type Date Recorded Patient Biazzi Nitrator Operator Expl anation Advance Directives and Living Will 02/25/2024 Candi Mulligan signed on 11/06/2023 ADVANCE DIRECTIVE / LIVING WILL COMBINED LIVING WILL & HEALTH CARE POWER OF APPAREL DESIGNER POLST 12/03/2023 9:15 AM sign date [...] the patient have Health Care Power of Rouge Miller? No * Full Code Date Activated Date [...] Care Agent (per Health Care Power of Rouge Miller document) Care Teams Brancher Relationship Specialty Start Date End Date Luz Maria Gama DO [address] [place] [address] PCP - General Family Medicine 01/04/23 documented as of this encounter
--- OUTSIDE RECORDS SUMMARY | 2024-05-06 15:32 | External Medical Summary ---
Author Name Unknown Address Unknown Organization [facility] [place] [address] Laboratory Report Ordering Provider Test Date Status BRIANNA VELAZQUEZ 03/22/2024 10:41:02 Final Observation Date Value Abnormality Reference (Units ) Status WBC, Total 03/22/2024 10:41:02 19.91 Above high normal 4 .00-10.80 (K/uL) Final RBC 03/22/2024 10:41:02 4.47 4.50-5.25 (M/uL) Final Hemoglobin 03/22/2024 10:41:02 14.1 14.0-16.8 (g/dL) Final HCT 03/22/2024 10:41:02 42.7 40.0-48.4 (%) Final MCV 03/22/2024 10:41:02 95.5 82.0-99.5 (fL) Final MCH 03/22/2024 10:41:02 31.5 27.0-34.0 (pg) Final MCHC 03/22/2024 10:41:02 33.0 32.0-36.0 (g/dL) Final RDW 03/22/2024 10:41:02 14.6 11.5-15.5 (%) Final Platelets 03/22/2024 10:41:02 263 140-400 (K /uL) Final MPV 03/22/2024 10:41:02 9.5 6.6-11.1 ( fL) Final Performing Location [facility] [place] [address]
--- OUTSIDE RECORDS SUMMARY | 2024-05-06 15:32 | External Medical Summary ---
Author Name Unknown Address Unknown Organization [facility] [address] [place] [address] Laboratory Report Ordering Provider Test Date Status LYDIA VELAZQUEZEY 03/22/2024 10:41:02 Final Observation Date Value Abnormality Reference (Units ) Status SYNC LEUKOCYTES IN BLOOD BY AUTOMATED COUNT 03/22/2024 10:41:02 19.91 Above high normal 4.00-10.80 (K/uL) Final Neutrophils/100 leukocytes in Blood by Manual count 03/22/2024 10:41:02 83.0 Above high normal 40.0-75.0 (%) Final Lymphocytes/100 leukocytes in Blood by Manual count 03/22/2024 10:41:02 12.0 Below low normal 18.0-42.0 (%) Final Monocytes/100 leukocytes in Blood by Manual count 03/22/2024 10:41:02 3.0 1.0-11.0 (%) Final Basophils/100 leukocytes in Blood by Manual count 03/22/2024 10:41:02 1.0 0.0-2.0 (%) Final Metamyelocytes/100 leukocytes in Blood by Manual count 03/22/2024 10:41:02 1.0 Above high normal <=0.0 (%) Final Neutrophils [#/volume] in Blood by Manual count 03/22/2024 10:41:02 16.53 Above high normal 1.80-7.70 (K/uL) Final Lymphocytes [#/volume] in Blood by Manual count 03/22/2024 10:41:02 2.39 1.00-4.80 (K/uL) Final Monocytes [#/volume] in Blood by Manual count 03/22/2024 10:41:02 0.60 0.00-1.10 (K/uL) Final Basophils [#/volume] in Blood by Manual count 03/22/2024 10:41:02 0.20 0.00-0.20 (K/uL) Final Metamyelocytes [#/volume] in Blood by Manual count 03/22/2024 10:41:02 0.20 Above high normal <=0.00 (K/uL) Final Nucleated erythrocytes/100 leukocytes [Ratio] in Blood by Automated count 03/22/2024 10:41:02 Final Performing Location [facility] [address] [place] [address]
--- OUTSIDE RECORDS SUMMARY | 2024-05-06 15:32 | External Medical Summary | Summary of Care ---
Author Name Unknown Organization [facility] Address [address] [place] [facility] [place] [place] [address] Phone [phone] Care Team Providers Care Supply Chain Systems Manager Name Role Phone Luz Maria Gama Tiffany LOUIE Primary Care Provider [phone] Reason for Visit * Reason Onset Date Comments Palliative Care Follow-up 03/15/2024 Encounter Details Date Type Department Care Team (Late st Contact Info) Description 03/15/2024 9:15 AM EDT Scheduled Telephone Palliative Medicine, [address] 5th [place] [address] [place], Nurse Palliative Medicine [address] [phone] Allergies No known active allergiesdocumented as of [...] suspected opioid overdose. Seek medical help immediately. [email or web address] 1 mL 3 11/18/2023 Active Naloxone HCl 4 MG/0.1ML Nasal Liquid (Narcan Nasal) Administer 1 spray into 1 nostril for suspected opioid overdose. Seek immediate medical attention. https://www.Pretty Padded Room.com/watch?v= [email or web address] 1 Each 3 11/18/2023 Active Omeprazole 40 [...] below 140/90,Ischemic cardiomyopathy,Coron christiane artery disease involving [place] coronary artery of [place] heart without angina pectoris,Dyslipidemi a, goal LDL [...] mRNA, LNP-s, No Pre serve, 2-Dose Series ([employer]) 12/02/2020,10/28/2020 Pneumococcal Polysaccharide PPV23 (Pneumovax) Seasonal Influenza, [...] Patient scheduled to see Dr. Tompkins at [facility] on Thursday 03/22 * Telephone Encounter - Sandra Cisneros LPN - 03/15/2024 9:24 AM EDT MyG Sent documented in this encounter Plan of Treatment Upcoming Encounters Date Type Department Care Team (Late st Contact Info) Description 03/22/2024 10:30 AM EDT Laboratory Laboratory [facility] [address] [place] [phone] Al[place], Lab Scenery 200 [facility] [place] [address] 03/22/2024 11:00 AM EDT Office Visit Palliative Medicine [facility] 200 [place] [phone] Keisha Tompkins MD [address] [place] [address] 03/22/2024 12:00 PM EDT Hem/Onc Treatment Hematology/Oncology Treatment, [address] [place] [phone] Alannah, Chair 1 Hem Onc [facility] 200 [facility] [place], [place] [address] 03/24/2024 10:00 AM EDT Telemedicine Palliative Medicine, [facility] 400 [facility] 5th [place] [address] Keisha Tompkins MD [address] [place] [address] 03/29/2024 3:45 PM EDT Pharmacy Pharmacy Hematology Oncology [facility] [place] [address] [place] [address] [facility] Hem/Onc [address] [place] [address] 05/23/2024 4:00 PM EDT Imaging Radiology 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 No * Full Code Date Activated Date [...] Care Agent (per Health Care Power of Hand Lens Polisher document) [email or web address] Care Teams Supply Chain Systems Manager Relationship Specialty Start Date End Date Luz Maria Gama DO [address] [place] [address] PCP - General Family Medicine 01/04/23 documented as of this encounter
--- OUTSIDE RECORDS SUMMARY | 2024-05-06 15:32 | External Medical Summary ---
Author Name Unknown Address Unknown Organization [facility] [address] [place] [address] Laboratory Report Ordering Provider Test Date Status BRIANNA VELAZQUEZ 03/22/2024 10:41:02 Final Observation Date Value Abnormality Reference (Units ) Status BUN 03/22/2024 10:41:02 25 Above high normal 6-20 (mg/dL) Final Creatinine 03/22/2024 10:41:02 1.1 0.6-1.2 (mg/dL) Final Glomerular filtration rate/1.73 sq M.predicted [Volume Rate/Area] in Serum, Plasma or Blood by Creatinine-based formula (CKD-EPI) 03/22/2024 10:41:02 77 >=60 (mL/min) Final eGFR is calculated based on the CKD-EPI 2020 equation Sodium 03/22/2024 10:41:02 139 135-146 (m mol/L) Final Potassium 03/22/2024 10:41:02 4.2 3.5-5.1 (m mol/L) Final Cl 03/22/2024 10:41:02 103 98-107 (mm ol/L) Final CO2 03/22/2024 10:41:02 25 22-32 (mmo l/L) Final Anion gap 03/22/2024 10:41:02 11 7-15 (mmol /L) Final Glucose 03/22/2024 10:41:02 110 70-120 (mg /dL) Final Albumin 03/22/2024 10:41:02 4.1 3.8-5.0 (g /dL) Final AST (Aspartate aminotransferase) 03/22/2024 10:41:02 19 10-50 (U/L) Final Alk Phos 03/22/2024 10:41:02 81 35-130 (U/ L) Final Bilirubin, Total 03/22/2024 10:41:02 0.4 <=1 .2 (mg/dL) Final Calcium 03/22/2024 10:41:02 9.5 8.4-10.2 ( mg/dL) Final Protein 03/22/2024 10:41:02 6.4 6.0-8.3 (g /dL) Final ALT (Alanine aminotransferase) 03/22/2024 10:41:02 39 10-50 (U/L) Final Performing Location [facility] [address] [place] [address]
--- OUTSIDE RECORDS SUMMARY | 2024-05-06 15:32 | External Medical Summary | Summary of Care ---
Author Name Unknown Organization [facility] Address [address] [facility] [place] [address] Phone [phone] Care Team Providers Care Massage Therapist Name Role Phone Luz Maria Gama Tiffany LOUIE Primary Care Provider Reason for Visit * Reason Onset Date Comments Palliative Care Follow-up 03/15/2024 Encounter Details Date Type Department Care Team (Late st Contact Info) Description 03/15/2024 9:15 AM EDT Scheduled Telephone Palliative Medicine, [address] [place] [address] Pr, Nurse Palliative Medicine [address] [phone] Allergies No known active allergiesdocumented as of [...] suspected opioid overdose. Seek medical help immediately. [email or web address] 1 mL 3 11/18/2023 Active Naloxone HCl 4 MG/0.1ML Nasal Liquid (Narcan Nasal) Administer 1 spray into 1 nostril for suspected opioid overdose. Seek immediate medical attention. https://www.ComCam.com/watch?v= [email or web address] 1 Each 3 11/18/2023 Active Omeprazole 40 [...] below 140/90,Ischemic cardiomyopathy,Coron christiane artery disease involving alutiiq coronary artery of alutiiq heart without angina pectoris,Dyslipidemi a, goal LDL [...] mRNA, LNP-s, No Pre serve, 2-Dose Series ([employer]) 12/02/2020,10/28/2020 Pneumococcal Polysaccharide PPV23 (Pneumovax) Seasonal Influenza, [...] Patient scheduled to see Dr. Tompkins at [facility] on Thursday 03/22 * Telephone Encounter - Sandra Cisneros LPN - 03/15/2024 9:24 AM EDT MyG Sent documented in this encounter Plan of Treatment Upcoming Encounters Date Type Department Care Team (Late st Contact Info) Description 03/22/2024 10:30 AM EDT Laboratory Laboratory [facility] [address] [place] [phone] Alannah, Lab Scenery 200 [facility] [place] [address] 03/22/2024 11:00 AM EDT Office Visit Palliative Medicine [facility] 200 [place] [phone] Keisha Tompkins MD [address] [place] [address] 03/22/2024 12:00 PM EDT Hem/Onc Treatment Hematology/Oncology Treatment, [address] [place] [phone] Alannah, Chair 1 Hem Onc [facility] 200 [facility] [place], [place] [address] 03/24/2024 10:00 AM EDT Telemedicine Palliative Medicine, [facility] 400 [facility] 5th [place] [address] Keisha Tompkins MD [address] [place] [address] 03/29/2024 3:45 PM EDT Pharmacy Pharmacy Hematology Oncology [facility] [place] [address] [place] [address] [facility] Hem/Onc [address] [place] [address] 05/23/2024 4:00 PM EDT Imaging Radiology [facility] 1st [facility] [place] [address] [place] [address] 06/19/2024 11:15 AM EDT Office Visit Neurosurgery, [place] [address] [place] [address] Clinic, Brain Tumor Multidisciplinary [address] [place] [address] 06/28/2024 9:50 AM EDT Office Visit [facility] [address] [place] [address] Luz Maria Gama, [address] [place] [address] Scheduled Procedures Name Priority Associated Diagnoses Date/Ti [...] Documents on File Type Date Recorded Patient Forensic Ballistics Expert Expl anation Advance Directives and Living Will 02/25/2024 Candi Mulligan signed on 11/06/2023 ADVANCE DIRECTIVE / LIVING WILL COMBINED LIVING WILL & HEALTH CARE POWER OF YARD DRIVER POLST 12/03/2023 9:15 AM sign date 12/01/2023 [...] the patient have Health Care Power of Chuck Wagon Driver? No * Full Code Date Activated [...] Care Agent (per Health Care Power of Chuck Wagon Driver document) [email or web address] Care Teams Massage Therapist Relationship Specialty Start Date End Date Luz Maria Gama DO [address] [place] [address] PCP - General Family Medicine 01/04/23 documented as of this encounter
--- OUTSIDE RECORDS SUMMARY | 2024-05-06 15:32 | External Medical Summary | Summary of Care ---
Author Name Unknown Organization [facility] Address [address] [facility] [place] [place] [address] Phone [phone] Care Team Providers Care Water Safety Teacher Name Role Phone Luz Maria Gama Tiffany LOUIE Primary Care Provider Reason for Visit * Reason Onset Date Comments Palliative Care Follow-up 03/15/2024 Encounter Details Date Type Department Care Team (Late st Contact Info) Description 03/15/2024 9:15 AM EDT Scheduled Telephone Palliative Medicine, [address] 5[address] [place] [address] [place], Nurse Palliative Medicine [address] [phone] Arrived Allergies No known active allergiesdocumented as of this encounter (statuses as of 03/15/2024) Medications Medication Sig Dispensed Refills Start Date [...] suspected opioid overdose. Seek medical help immediately. [email or web address] [email or web address] 1 mL 3 11/18/2023 Active Naloxone HCl 4 MG/0.1ML Nasal Liquid (Narcan Nasal) Administer 1 spray into 1 nostril for suspected opioid overdose. Seek immediate medical attention. https://www.Zola Books.com/watch?v= [email or web address] 1 Each 3 11/18/2023 Active Omeprazole 40 [...] below 140/90,Ischemic cardiomyopathy,Coron christiane artery disease involving [place]well coronary artery of cantwell heart without angina pectoris,Dyslipidemi a, goal LDL [...] as of this encounter (statuses as of 03/15/2024) Active Problems Problem Noted Date Diagnosed Date [...] as of this encounter (statuses as of 03/15/2024) Resolved Problems Problem Noted Date Diagnosed Date [...] as of this encounter (statuses as of 03/15/2024) Immunizations Name Administration Dates Next Due COVID-19 [...] Description 03/22/2024 10:30 AM EDT Laboratory Laboratory [facility] [place] [address] [place], [place] [id number] [place], Lab [address] [place] [address] 03/22/2024 11:00 AM EDT Office Visit Palliative Medicine [facility] 200 [place] [phone] Keisha Tompkins MD [address] [place] [address] 03/22/2024 12:00 PM EDT Hem/Onc Treatment Hematology/Oncology Treatment, [address] [place] [phone] [place], Chair 1 Hem Onc [address] [place] [address] 03/24/2024 10:00 AM EDT Telemedicine Palliative Medicine, [facility] 400 [facility] 5th [place] [address] Keisha Tompkins MD [address] [place] [address] 03/29/2024 3:45 PM EDT Pharmacy Pharmacy Hematology Oncology [facility], [place] [address] [place] [address] [facility] Hem/Onc [address] [place] [address] 05/23/2024 4:00 PM EDT Imaging Radiology [facility]st [facility] [address] [facility] [place] [address] 06/19/2024 11:15 AM EDT Office Visit Neurosurgery, [place] [address] [place] [address] Clinic, Brain Tumor Multidisciplinary [address] [place] [address] 06/28/2024 9:50 AM EDT Office Visit [address] [place] [phone] Luz Maria Gama, DO [address] [facility] [place] [phone] Scheduled Procedures Name Priority Associated Diagnoses Date/Ti [...] Documents on File Type Date Recorded 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 No * Full Code Date Activated Date [...] Care Agent (per Health Care Power of Director Of Annual Giving document) Care Teams Water Safety Teacher Relationship Specialty Start Date End Date Luz Maria Gama DO [address] [place] [address] PCP - General Family Medicine 01/04/23 documented as of this encounter
--- OUTSIDE RECORDS SUMMARY | 2024-05-06 15:32 | External Medical Summary | Summary of Care ---
Author Name Unknown Organization [facility] Address [address] [facility] [address] Phone [phone] Care Team Providers Care Licensed Funeral Director Name Role Phone Luz Maria Gama Primary Care Provider [phone] Reason for Visit * Reason Comments Outpatient Testing Encounter Details Date Type Department Care Team (Late st Contact Info) Description 03/22/2024 10:30 AM EDT Laboratory Laboratory [facility] [place] [address] [place] [phone] [place], Lab Scenery [address] [place] [address] Glioblastoma (HCC) Allergies No known active allergiesdocumented [...] suspected opioid overdose. Seek medical help immediately. [email or web address]/ [email or web address] 1 mL 3 11/18/2023 Active Naloxone HCl 4 MG/0.1ML Nasal Liquid (Narcan Nasal) Administer 1 spray into 1 nostril for suspected opioid overdose. Seek immediate medical attention. https://www.DIVINE BOOKS.com/watch?v= x85eYta3HiJ 1 Each 3 11/18/2023 Active Omeprazole 40 [...] below 140/90,Ischemic cardiomyopathy,Beltrán ry artery disease involving [place] coronary artery of pilot [place] heart without angina pectoris,Dyslipidemia , goal LDL [...] EDT Office Visit Palliative Medicine [facility] [address] [phone] Keisha Tompkins MD [address] [place] [address] [place] [address] Palliative Medicine Outpatient Progress Note 03/22/2024 12:00 PM EDT Hem/Onc Treatment Hematology/Oncology Treatment, [address] [phone] Alannah, Chair 1 Hem Onc [address] [address] Arrived 03/29/2024 3:45 PM EDT Pharmacy Pharmacy Hematology Oncology [facility] [place], [place] [address] [place] [address] [facility] Hem/Onc [address] [place] [address] 05/23/2024 4:00 PM EDT Imaging Radiology [address] [facility] [place] [address] 06/13/2024 11:00 AM EDT Office Visit Audiology [facility] [place] [address] Gloria Oropeza Au.D. [facility] [place] [address] 06/19/2024 11:15 AM EDT Office Visit Neurosurgery, [place] [address] [place] [address] Clinic, Brain Tumor Multidisciplinar y [address] [place] [address] 06/28/2024 9:50 AM EDT Office Visit [address] [phone] Luz Maria Gama, DO [address] [place] [address] Pending Results Name Type Priority Associated Diagnoses [...] Documents on File Type Date Recorded Patient Telephone Switchboard Operator Expl anation Advance Directives and Living Will 02/25/2024 Candi Mulligan signed on 11/06/2023 ADVANCE DIRECTIVE / LIVING WILL COMBINED LIVING WILL & HEALTH CARE POWER OF FIELD SERVICE ANALYST POLST 12/03/2023 9:15 AM sign date [...] the patient have Health Care Power of Center Machine Operator? No * Full Code Date Activated [...] Care Agent (per Health Care Power of Center Machine Operator document) Care Teams Licensed Funeral Director Relationship Specialty Start Date End Date Luz Maria Gama DO [address] [place] [address] PCP - General Family Medicine 01/04/23 documented as of this encounter
--- OUTSIDE RECORDS SUMMARY | 2024-05-06 15:32 | External Medical Summary | Summary of Care ---
Author Name Unknown Organization [facility] Address [address] [place] [address] Phone [phone] Care Team Providers Care Rn Medication Name Role Phone Luz Maria Gama Primary Care Provider Reason for Visit * Reason Onset Date Comments Precert Future 02/28/2024 Zirabev/Lomustin e Encounter Details Date Type Department Care Team (Late st Contact Info) Description 02/28/2024 Telephone Hematology/Oncology [facility] [place] [address] [place] [facility] [place] [address] Palak Cast MD [address] [place] [address] Precert Future (Zirabev/Lomustine) Allergies No known active allergiesdocumented as of [...] suspected opioid overdose. Seek medical help immediately. http://[email or web address].be [email or web address] 1 mL 3 11/18/2023 Active Naloxone HCl 4 MG/0.1ML Nasal Liquid (Narcan Nasal) Administer 1 spray into 1 nostril for suspected opioid overdose. Seek immediate medical attention. https://www.WorldRemit.com/watch? v=[email or web address] 1 Each 3 11/18/2023 Active Omeprazole 40 [...] 02/08/2024 Active dexAMETHasone 2 MG Oral Tablet (Decadron)Indicatio ns:Glioblastoma (HCC) Take 2 Tablets by mouth 2 times a day for 3 days, THEN 1 Tablet 2 times a day with morning and evening meals for 10 days, THEN 1 Tablet daily with breakfast for 10 days, THEN 1 Tablet every other day for 10 days. 47 Tablet 02/28/2024 4 Active Metoprolol Succinate ER 25 MG Oral Tablet Extended Release 24 Hour (toPROL XL)Indications:HTN, goal below 140/90,Ischemic cardiomyopathy,Aristeo nary artery disease involving [place] coronary artery of [place] heart without angina pectoris,Dyslipidem ia, goal LDL below 100,Essential hypertension with goal blood pressure less than 140/90 Take 1 Tablet by mouth in the morning. 90 Tablet 06/24/2023 4 Discontinue d(Refill) Ondansetron HCl 8 MG Oral Tablet (Zofran)Indications :Nausea Take 1 Tablet by mouth every 8 hours as needed for Nausea. 90 Tablet 1 12/22/2023 4 Discontinue d(Refill) levETIRAcetam 500 MG Oral Tablet (Keppra)Indications :Brain tumor (HCC),Brain mass Take 1 Tablet by mouth in the morning and 1 Tablet before bedtime. 60 Tablet 2 01/11/2024 4 Discontinue d(Refill) busPIRone HCl 10 MG Oral Tablet (Buspar)Indications :Anxiety state Take 1 Tablet by mouth 2 times a day as needed for Agitation or Anxiety. 60 Tablet 2 01/31/2024 4 Discontinue d(Refill) Morphine Sulfate ER 30 MG Oral Tablet Extended Release (Ms Contin)Indications: Cancer related pain Take 1 Tablet by mouth in the morning and 1 Tablet before bedtime. Continued script. 60 Tablet 02/08/2024 4 Discontinue d(Refill) Morphine Sulfate 15 MG Oral Tablet (Msir)Indications:C ancer related pain Take 1 Tablet by mouth every 4 hours as needed for Pain, Severe. Continued script 60 Tablet 02/08/2024 4 Discontinue d(Refill) Polyethylene Glycol 3350 17 GM Oral Packet (Miralax)Indication s:Constipation due to pain medication Take 1 Packet by mouth in the morning. 30 Each 02/08/2024 4 Discontinue d(Refill) Sennosides 8.6 MG Oral Tablet (Senokot)Indication s:Constipation due to pain medication Take 2 Tablets by mouth at bedtime. 60 Tablet 02/08/2024 4 Discontinue d(Refill) Omeprazole 20 MG Oral Capsule Delayed Release (PriLOSEC)Indicatio ns:Glioblastoma (HCC) Take 2 Capsules by mouth in the morning. 30 Capsule 02/28/2024 4 Discontinue d(Refill) documented as of this [...] Telephone Encounter - Sandra Cisneros LPN - 03/13/2024 7:29 AM EDT Pt scheduled with palliative 03/22 at 11am * Telephone Encounter - Martha Spencer RN - 03/10/2024 3:06 PM EDT MTM: FYI on start date. Sandra: patients accepted appt 03/22, still needs to be added when it opens Wednesday * Telephone Encounter - Danielle Wu OSA - 03/10/2024 10:52 AM EDT Scheduled apts waiting on manag to add pt to Dr Tompkins Pt is aware of appts * Telephone Encounter - Martha Spencer RN - 03/10/2024 10:12 AM EDT Patients sent MyG "[facility] chemo pills should be delivered next Wednesday/Wednesday. Dr. Katz (palliative) would like to see him March 22 - would it be possible to start the infusion/chemo pill in alignment with that so that we could make one trip to the office every two weeks? Let me know what's possible. Thank you! " Per P note, this is being shipped 03/13. Spoke to palliative care- they can see patient 03/22/24 at 11am. Scheduling: please call patients to offer appts 03/22/24 - labs "CBCd, CMP, UA" at 10:30am - Dr Tompkins at 11am - 2 hour appt "C1D1 zirabev" at 11:30/12 (looks like a chair will not be open until 12 at this time, but tx room could try to take him closer to 11:30 if he is done with Dr Jimenez) If times do not work for her, please just schedule labs/ treatment for a different time and tell them to keep video visit with palliative care 03/24 as scheduled. Thanks! * Telephone Encounter - Martha Spencer RN - 03/03/2024 10:23 AM EDT Called and spoke to Candi- she declined detailed education, states that she did read through education binder and has no further questions. She states that patient has done really well with dexamethasone, since auth is back for lomustine, would like to wait until she knows when this will be delivered to schedule zirabev. * Telephone Encounter - Martha Spencer RN - 02/29/2024 12:45 PM EDT Patients given education binder- will need to call her to review. Consent signed 02/29/24. Referral entered for zirabev- can send to scheduling once education complete. * Telephone Encounter - Bobby Garcia RN - 02/28/2024 4:06 PM EDT Orders received, plan built and routed. Awaiting authorization. [facility]- please see orders for Lomustine and create plan. Thank you. -Chemo Consent: Needs Completed -Chemo Education: Needs Scheduled -Port Placement: TBD -Standing Lab orders placed: CBCD,CMP,UA -Medications Pended: None -Hep B Labs: Completed 02/28/24 documented in this encounter Plan of Treatment Upcoming Encounters Date Type Department Care Team (Late st Contact Info) Description 03/13/2024 3:45 PM EDT Pharmacy Pharmacy Hematology Oncology [facility] [address] [place] [address] [facility], [facility] Hem/Onc [address] [place] [address] 03/15/2024 9:15 AM EDT Scheduled Telephone Palliative Medicine, [address] 5th [place] [address] [place], Nurse Palliative Medicine [facility] 5th [address] [facility] [address] 03/22/2024 10:30 AM EDT Laboratory Laboratory [facility] [address] [place] [phone] [place], Lab Scenery [address] [facility] [place] [address] 03/22/2024 11:00 AM EDT Office Visit Palliative Medicine [facility] 200 [facility], [place] [phone] Keisha Tompkins MD [address] [place] [address] 03/22/2024 12:00 PM EDT Hem/Onc Treatment Hematology/Oncology Treatment, [place] [address] [facility], [place] [phone] Alannah, Chair 1 Hem Onc [facility] [address] [facility] [place], [place] [address] 03/24/2024 10:00 AM EDT Telemedicine Palliative Medicine, [facility] 400 [facility] 5th [place] [address] Keisha Tompkins MD [address] [place] [address] 05/23/2024 4:00 PM EDT Imaging Radiology [facility]st [facility] 132 [facility] [place] [address] 06/19/2024 11:15 AM EDT Office Visit Neurosurgery, [place] [address] [place] [address] Clinic, Brain Tumor Multidisciplinary [address] [place] [address] 06/28/2024 9:50 AM EDT Office Visit Family Practice, [place] [address] [place] [address] Luz Maria Gama DO [address] [place] [address] Scheduled Orders Name Type Priority Associated Diagnoses Orde r Schedule CBC WITH WBC DIFFERENTIAL Lab STAT Glioblastoma (HCC) Every 2 Weeks for 24 Occurrences starting 02/28/2024 until 02/27/2025 COMPREHENSIVE METABOLIC PANEL Lab STAT Glioblastoma (HCC) Every 2 Weeks for 24 Occurrences starting 02/28/2024 until 02/27/2025 URINALYSIS, REFLEX TO MICROSCOPIC Lab STAT Glioblastoma (HCC) Every 2 Weeks for 24 Occurrences starting 02/28/2024 until 02/27/2025 Scheduled Procedures Name Priority Associated Diagnoses Date/Ti [...] Documents on File Type Date Recorded 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 No * Full Code Date Activated [...] Care Agent (per Health Care Power of Metallurgical Engineering Technician document) [email or web address] Care Teams Rn Medication Relationship Specialty Start Date End Date Luz Maria Gama DO [address] [place] [address] PCP - General Family Medicine 01/04/23 documented as of this encounter
--- OUTSIDE RECORDS SUMMARY | 2024-05-06 15:32 | External Medical Summary | Summary of Care ---
Author Name Unknown Organization [facility] Address [address] [place] [address] Phone [phone] Care Team Providers Care Special Agent Name Role Phone Luz Maria Gama Primary Care Provider Reason for Visit * Reason Comments Completion Of Treatment Encounter Details Date Type Department Care Team (Late st Contact Info) Description 02/08/2024 3:30 PM EDT Telemedicine Psychology, Cancer Center Nora HALL [address] [facility] [place] [id number] Morenita Castillo MA [address] [place] [address] Adjustment disorder with mixed anxiety and depressed mood* Allergies No known active allergiesdocumented as of [...] 06/24/2023 Active Lisinopril 20 MG Oral Tablet (Prinivil)Indicati ons:HTN, goal below 140/90 Take 1 Tablet by mouth in the morning. 90 Tablet 3 11/04/2023 Active CPAP every night at bedtime. Active Naloxone HCl 0.4 MG/ML Injection Solution (Narcan)Indication s:Brain tumor (HCC),Brain mass Inject 1mL into a large muscle for suspected opioid overdose. Seek medical help immediately. http://Toppru.be/ [email or web address] 1 mL 3 11/18/2023 Active Naloxone HCl 4 MG/0.1ML Nasal Liquid (Narcan Nasal) Administer 1 spray into 1 nostril for suspected opioid overdose. Seek immediate medical attention. https://www.Fastnote.com/watch?v= [email or web address] 1 Each 3 11/18/2023 Active Omeprazole 40 MG Oral Capsule Delayed Release (PriLOSEC) Take 1 Capsule by mouth in the morning. 12/27/2023 Active dexAMETHasone 4 MG Oral Tablet (Decadron) Take 1 Tablet by mouth 2 times a day with morning and evening meals. 12/27/2023 Active Sulfamethoxazole-T rimethoprim 800-160 MG Oral Tablet (Bactrim DS) Every other day during radiation 12/27/2023 Active Doxycycline Monohydrate 50 MG Oral CapsuleIndications :Rosacea Take 1 capsule by mouth once daily 90 Capsule 1 01/10/2024 Active Metoprolol Succinate ER 25 MG Oral Tablet Extended Release 24 Hour (toPROL XL)Indications:HTN , goal below 140/90,Ischemic cardiomyopathy,Cor onary artery disease involving federated indians [place] gr[place] coronary artery of fed[place] indians [place] gr[place] heart without angina pectoris,Dyslipide kavon, goal LDL below 100,Essential hypertension with goal blood pressure less than 140/90 Take 1 Tablet by mouth in the morning. 90 Tablet 06/24/2023 4 Discontinue d(Refill) Ondansetron HCl 8 MG Oral Tablet (Zofran)Indication s:Nausea Take 1 Tablet by mouth every 8 hours as needed for Nausea. 90 Tablet 1 12/22/2023 4 Discontinue d(Refill) levETIRAcetam 500 MG Oral Tablet (Keppra)Indication s:Brain tumor (HCC),Brain mass Take 1 Tablet by mouth in the morning and 1 Tablet before bedtime. 60 Tablet 2 01/11/2024 4 Discontinue d(Refill) busPIRone HCl 10 MG Oral Tablet (Buspar)Indication s:Anxiety state Take 1 Tablet by mouth 2 times a day as needed for Agitation or Anxiety. 60 Tablet 2 01/31/2024 4 Discontinue d(Refill) Morphine Sulfate ER 30 MG Oral Tablet Extended Release (Ms Contin)Indications :Cancer related pain Take 1 Tablet by mouth in the morning and 1 Tablet before bedtime. Continued script. 60 Tablet 02/08/2024 4 Discontinue d(Refill) Morphine Sulfate 15 MG Oral Tablet (Msir)Indications: Cancer related pain Take 1 Tablet by mouth every 4 hours as needed for Pain, Severe. Continued script 60 Tablet 02/08/2024 4 Discontinue d(Refill) Polyethylene Glycol 3350 17 GM Oral Packet (Miralax)Indicatio ns:Constipation due to pain medication Take 1 Packet by mouth in the morning. 30 Each 02/08/2024 4 Discontinue d(Refill) Sennosides 8.6 MG Oral Tablet (Senokot)Indicatio ns:Constipation due to pain medication Take 2 Tablets by mouth at bedtime. 60 Tablet 02/08/2024 4 Discontinue d(Refill) documented as of this [...] mRNA, LNP-s, No Pre serve, 2-Dose Series (Zondle) 12/02/2020,10/28/2020 Pneumococcal Polysaccharide PPV23 (Pneumovax) Seasonal Influenza, [...] as of this encounter Progress Notes * Danielle Montelongo PsyD - 02/10/2024 9:50 AM EDT I have discussed the patient's management with the psychology trainee and agree with the note. I have reviewed the relevant history, assessment, diagnosis, and plan. Please refer to the documented findings and plan of care. This patient's visit today consisted of a service. I was readily available for immediate consultation and assistance. Danielle Montelongo Psy.D. Licensed Clinical Psychologist #[id number] Behavioral Medicine Cancer [place] [facility] * Morenita Castillo MA - 02/08/2024 3:31 PM EDT BEHAVIORAL MEDICINE PROGRESS NOTE [facility] Psychology, Cancer Center Nora HALL [address] [facility] [place] [id number] 02/08/2024 Patient location: HOME. I was in a hospital or clinic location. After connecting through televideo,patient was verified with two unique identifiers. Patient (or authorized legal food products sales representative) was then informed that this was a Telemedicine visit and being conducted confidentially over secure lines. Methods to assure confidentiality were taken. Patient acknowledged consent and understanding of pr ivacy and security of the Telemedicine visit. The patient agreed to participate. After connecting through Televideo, patient was verified with two unique identifiers. Patient (or authorized legal food products sales representative) was then informed that this was a Telemedicine visit and that the exam was being conducted confidentially. My office door was closed. No one else was in the room with me. Patient acknowledged consent and understanding of privacy and security of this virtual visit .I informed the patient that I have reviewed their record in [facility] and presented the opportunity for themto ask any questions regarding the visit today. The patient agreed to participate. Provider reviewed elements of Outpatient Services Description including limits of confidentiality, how to contact the department, risks and benefits of treatment and consent for treatment. Start Time: 3:30 PM Stop Time: 4:35 PM Total Time:65 minutes DURATION OF VISIT: 65 minutes TYPE OF VISIT: Individual DIAGNOSIS: Adjustment Disorder with mixed anxiety and depressed mood CANCER DIAGNOSIS: Glioblastoma, IDH-wildtype SUMMARY AND PLAN Remy Lujan is a 58 year old male, presenting with symptoms of depressed mood, anhedonia, sleeping too much, difficulty controlling worry and irritability. Of note, patient has PMH of Glioblastoma, and reported historical mental health concerns including waxing and waning mood/anxiety sx. Per patient report, he is experiencing mood and anxiety sx in the context of adjustment to cancer dx. During their evaluation, patient demonstrated strengths including Identifies reasons for living;Social Support/Family;Hopeful attitude and or beliefs, and risk factors including Physical illness/chronic p ain;Financial/economic duress;Anxiety. Outpatient psychotherapy is clinically indicated at this time, and treatment will focus on TBD- to complete tx plan at [facility], which has been reviewed with patient.Pt always made aware tx will be abbreviated with undersigned leaving system end of February 2024. Remy's progress toward therapy goals is Excellent. Today, session focussed on finishing intake assessment, tx plan, Meaning-Centered Psychotherapy intro psychoeducation, sources of meaning discussion, meaningful moments exercise. Remy's Session Evaluation: good job so far Return: 1 week Action Plan: start listening to Man's Search for Meaning audio book Next Session: 02/16/24 Treatment plan reviewed with the patient. Patient voices understanding and concurs with plan. SESSION DETAILS BELOW SYMPTOMS Depression - Unchanged Anxiety - Unchanged Over the last 2 weeks, how often have you been bothered by any of the following problems? Not at all Several days More than half the days Nearly every day Little interest or pleasure in doing things 0 1 2 3 Feeling down, depressed, or hopeless 0 1 2 3 Trouble falling or staying asleep, or sleeping too much 0 1 2 3 Feeling tired or having little energy 0 1 2 3 Poor appetite or overeating 0 1 2 3 Feeling bad about yourself -- or that you are a failure or have let yourself or your family down 0 1 2 3 Trouble concentrating on things, such as reading the newspaper or watching television 0 1 2 3 Moving or speaking so slowly that other people could have noticed 0 1 2 3 Thoughts that you would be better off or of hurting yourself in some way 0 1 2 3 Feeling nervous, anxious, or on edge 0 1 2 3 Not being able to stop or control worrying 0 1 2 3 Worrying too much about different things 0 1 2 3 Trouble relaxing 0 1 2 3 Being so restless that it is hard to sit still 0 1 2 3 Becoming easily annoyed or irritable 0 1 2 3 Feeling afraid as if something awful might happen 0 1 2 3 These problems have made it not very difficult for Remy Cash Tai to function. MED CHANGES/SIDE EFFECTS None AGENDA (* Therapist item) Check in: Pt described mild to moderate mood and anxiety sx. Finished assessment from intake and tx plan. Pt reported desire to understand what his trajectory at end of life "should" be. Spent majority of session discussing that there might be some similarities across people, there areno straightforward trajectories and that his sources of meaning can guide this. Discussed that given this, he may want to spend some time getting certain affairs in order, while also limiting this so he can spend time outdoors, with his loved ones. Pt suggested significant alignment with [facility], heard of Nguyễn Vanessa prior and excitement to listen to audio book. Develop action plan: start listening to Man's Search for Meaning audio book Of note, pt was not available for follow-up likely given medical status. Thus, pt was discharged. SOCIAL HISTORY Relationship status: Previously , now in committed relationship Quality of Relationship: positive/supportive. 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 Evidence of risky use: No Impaired Control: No DUI/Legal: No Tolerance/Withdrawal: No Medical Cannabis: no Nicotine: Past smoker, quit over 10 years ago Caffeine: 1 cups/day Exercise: hx of being very active. Reduced significantly recently. Weight: been stable Outpatient Adult Therapy Treatment Plan Treatment plan was developed on 02/08/2024, treatment will continue to focus on goals below; Treatment update will occur when clinically indicated or by 08/06/2024. Patient's goals captured in patient's words: "help me in relationships, managing irritability" Expected family or significant other involvement: Not applicable at present Type of Service:Individual Patients Strengths and Facilitating Factors to care: Recognizes need for change, Seeking help, Attempting to realize ones potential, Has a purpose in life, and Cooperative Treatment Barriers: cognitive impairments related to [place] Crisis Planning: What I can do if I ever experience a crisis (much worse symptoms, severe distress or thoughts of self-harm): speak to loved ones, listen to shows/podcasts People I can call in the event of a crisis: candi (significant other) Additional resources I can utilize if the previous steps are ineffective (e.g: ED, hotlines): Suicide and Crisis Lifeline [facility] Crisis Contact Patient/ Family Received Copy of Treatment Plan Duration of Treatment Frequency of Treatment Yes, sent via [employer] 3-4 sessions d/t provider leaving end february weekly Patient Identified Needs/Goals Interventions Objective/ Discharge Criteria Problem/Need 1: irritability Cognitive Behavioral Therapy (CBT), which includes psychoeducation, cognitive restructuring, relaxation/diaphragmatic breathing, problem-solving, and behavioral activation Pt to engage in 1-2 new coping skills. Problem/Need 2: managing changes to identity and end of life Meaning-Centered Psychotherapy Pt to engage in valued areas of life. Please choose a method to track patient's improvement based on clinical assessment: Date Intake S1 PHQ-9 - 4 RENETTA-7 - 2 Discharge Discussed with patient: Patient continues to need treatment Collaboration of Care: Yes, provider within [facility], information is shared automatically in medical record Is this the patients' initial treatment plan? Yes MENTAL STATUS AND BEHAVIORAL OBSERVATIONS: Appearance: within normal limits and age-appropriate Behavior: appropriate, cooperative, and pleasant Speech: Abnormal : aphasia Mood: slightly low Affect: mood-congruent Thought Process: occassionally disorganized d/t aphasia and other cognitive impairments Thought Content: No hallucinations or delusions Intellectual Function: Normal Sensorium: person, place, time, and situation Cognition: Impaired cognition Insight/Judgment: fair to good RISK ASSESSMENT: [place]UMBIA-SUICIDE SEVERITY RATING SCALE Frequent Screener [place] Suicide Severity Rating Scale Results 02/08/2024 11:00 [place] SUICIDE SEVERITY RATING SCALE (C-SSRS) Have you wished you were or wished you could go to sleep and not wake up? (In the Past Month or Since Last Visit) No Have you had any actual thoughts of killing yourself? (In the Past Month or Since Last Visit) No Have you been thinking about how you might do this? (In the Past Month or Since Last Visit) No Have you had thoughts and had some intention of acting on them? (In the Past Month or Since Last Visit) No Have you started to work out or worked out the details of how to kill yourself? Do you intend to carry out this plan? (In the Past Month or Since Last Visit) No Have you ever done anything, started to do anything, or prepared to do anything to end your life? (Lifetime) No Was this within the past 3 months? No Level of Risk No Risk Identified Plan: Patient provided with emergency phone numbers- TAPLINE and [facility] [phone]. Encouraged to proceed to the nearest ER 24hrs/7days if symptoms worsen or patient feels out of control with plan or intent to act on thoughts. Agrees to call back to the clinic with any additional concerns or difficulties. THERAPY/PSYCHOLOGY DISCHARGE SUMMARY 1. Summary of Services provided: Individual Therapy 2. Outcomes and referrals: Medical status 3. Relevant psychosocial status: stable Plan of care at time of discharge including referrals: Use crisis plan as needed Can consult us in the future as clinically indicated Patient and/or family has access to this document through MyChart Morenita Castillo MA [facility], [address] [place] [address]. [place] [id number] documented in this encounter Plan of Treatment Upcoming Encounters Date Type Department Care Team (Late st Contact Info) Description 03/22/2024 10:30 AM EDT Laboratory Laboratory [address] [phone] Al[place], Lab [address] [place] [address] 03/22/2024 11:00 AM EDT Office Visit Palliative Medicine [address] [phone] Keisha Tompkins MD [address] [place] [address] 03/22/2024 12:00 PM EDT Hem/Onc Treatment Hematology/Oncology Treatment, [address] [phone] Alannah, Chair 1 Hem Onc [address] [place] [address] 03/24/2024 10:00 AM EDT Telemedicine Palliative Medicine, [address] [place] [address] Keisha Tompkins MD [address] [place] [address] 03/29/2024 3:45 PM EDT Pharmacy Pharmacy Hematology Oncology [facility] [address] [place] [address] [facility] [place], [facility] Hem/Onc [address] [place] [address] 05/23/2024 4:00 PM EDT Imaging Radiology [facility] [address] [facility] [place] [address] [facility] [place] [address] 06/19/2024 11:15 AM EDT Office Visit Neurosurgery, [place] [address] [place] [address] Clinic, Brain Tumor Multidisciplinary [address] [place] [address] 06/28/2024 9:50 AM EDT Office Visit [facility] [address] [place] [facility] [place] [phone] Luz Maria Gama, [address] [place] [address] Scheduled Procedures Name Priority Associated Diagnoses Date/Ti [...] encounter Visit Diagnoses Diagnosis Adjustment disorder with mixed anxiety and depressed mood- Primary documented in this encounter Advance Directives Documents on File Type Date Recorded Patient Retail Planner Expl anation Advance Directives and Living Will 02/25/2024 Candi Mulligan signed on 11/06/2023 ADVANCE DIRECTIVE / LIVING WILL COMBINED LIVING WILL & HEALTH CARE POWER OF GROCERY STOCKER POLST 12/03/2023 9:15 AM sign date 12/01/2023 [...] patient have Health Care Power of Senior Tech Manufacturing Engineering? No * Full Code Date Activated Date [...] Agent (per Health Care Power of Senior Tech Manufacturing Engineering document) [email or web address] Care [email or web address] Special Agent Relationship Specialty Start Date End Date Luz Maria Gama DO [address] [facility] [place] [address] PCP - General Family Medicine 01/04/23 documented as of this encounter
--- OUTSIDE RECORDS SUMMARY | 2024-05-06 15:33 | External Medical Summary | Summary of Care ---
Author Name Unknown Organization [facility] Address [address] [place] [address] Phone [phone] Care Team Providers Care Electrical Foreman Name Role Phone Luz Maria Gama Primary Care Provider Reason for Visit * Reason Onset Date Comments Medication Refill 03/03/2024 Encounter Details Date Type Department Care Team (Late st Contact Info) Description 03/03/2024 Refill Neurosurgery, [place] [address] [place], [place] [phone] Palak Reed MD [address] [place] [address] Glioblastoma (HCC) Allergies No known active allergiesdocumented as of this encounter (statuses as of 03/07/2024) Medications Medication Sig Dispensed Refills Start Date [...] suspected opioid overdose. Seek medical help immediately. [email or web address] 1 mL 3 11/18/2023 Active Naloxone HCl 4 MG/0.1ML Nasal Liquid (Narcan Nasal) Administer 1 spray into 1 nostril for suspected opioid overdose. Seek immediate medical attention. https://www.AorTx.com/watch? [email or web address] 1 Each 3 11/18/2023 Active Omeprazole 40 [...] day for 10 days. 47 Tablet 02/28/2024 Active busPIRone HCl 10 MG Oral Tablet (Buspar)Indications :Anxiety state Take 1 Tablet by mouth 2 times a day as needed for Agitation or Anxiety. 60 Tablet 2 03/03/2024 Active Morphine Sulfate ER 30 MG Oral Tablet Extended Release (Ms Contin)Indications: Cancer related pain Take 1 Tablet by mouth in the morning and 1 Tablet before bedtime. Continued script. 14 Tablet 03/03/2024 Active Morphine Sulfate 15 MG Oral Tablet (Msir)Indications:C [...] 03/07/2024 Active levETIRAcetam 500 MG Oral Tablet (Keppra)Indications :Brain tumor (HCC),Brain mass Take 1 Tablet by mouth in the morning and 1 Tablet before bedtime. 60 Tablet 2 03/06/2024 Active Metoprolol Succinate ER 25 MG Oral Tablet Extended Release 24 Hour (toPROL XL)Indications:HTN, goal below 140/90,Ischemic cardiomyopathy,Aristeo nary artery disease involving seminole coronary artery of seminole heart without angina pectoris,Dyslipidem ia, goal LDL [...] 03/03/2024 Active Lomustine 40 MG Oral Capsule (Gleostine)Indicati ons:Glioblastoma (HCC) Take 4 Capsules by mouth every 6 weeks. Take on an empty stomach at bedtime 4 Capsule 03/03/2024 Active Omeprazole 20 MG Oral Capsule Delayed Release (PriLOSEC)Indicatio ns:Glioblastoma (HCC) Take 2 Capsules by mouth in the morning. 30 Capsule 02/28/2024 Discontinue d(Refill) documented as of this encounter (statuses as of 03/07/2024) Active Problems Problem Noted Date Diagnosed Date [...] as of this encounter (statuses as of 03/07/2024) Resolved Problems Problem Noted Date Diagnosed Date [...] as of this encounter (statuses as of 03/07/2024) Immunizations Name Administration Dates Next Due COVID-19 [...] encounter Miscellaneous Notes * Telephone Encounter - Palak Reed MD - 03/07/2024 2:36 PM EDTSigned Prescriptions: Disp Refills Omeprazole 20 MG Oral Capsule Delayed Rele*30 Cap*0 Sig: Take 2 Capsules by mouth in the morning. Authorizing Provider: PALAK REED * Telephone Encounter - Henna Johnston LPN - 03/03/2024 10:46 AM EDT Pending Prescriptions: Disp Refills Omeprazole 20 MG Oral Capsule Delayed Rele*30 Cap*0 Sig: Take 2Capsules by mouth in the morning. documented in this encounter Plan of Treatment Upcoming Encounters Date Type Department Care Team (Late st Contact Info) Description 03/08/2024 2:00 PM EDT Telemedicine Palliative Medicine [facility] [address] [place] [address] Keisha Tompkins MD [address] [place] [address] [place] [id number] 03/13/2024 3:45 PM EDT Pharmacy [facility] [address] [place] [address] [facility] Hem/Onc [address] [place] [address] 05/23/2024 4:00 PM EDT Imaging Radiology [address] [place] [address] 06/19/2024 11:15 AM EDT Office Visit Neurosurgery, [place] [address] [place] [address] Clinic, Brain Tumor Multidisciplinary [address] [place] [address] 06/28/2024 9:50 AM EDT Office Visit [facility] [address] [place] [phone] Luz Maria Gama, [address] [facility] [address] Scheduled Procedures Name Priority Associated Diagnoses Date/Ti [...] Documents on File Type Date Recorded Patient Dietary Supervisor Expl anation Advance Directives and Living Will 02/25/2024 Candi Mulligan signed on 11/06/2023 ADVANCE DIRECTIVE / LIVING WILL COMBINED LIVING WILL & HEALTH CARE POWER OF QUALITY IMPROVEMENT CONSULTANT POLST 12/03/2023 9:15 AM sign date 12/01/2023 [...] the patient have Health Care Power of Steelscope Operator? No * Full Code Date Activated [...] Care Agent (per Health Care Power of Steelscope Operator document) [email or web address] Care Teams Electrical Foreman Relationship Specialty Start Date End Date Luz Maria Gama DO [address] [place] [address] PCP - General Family Medicine 01/04/23 documented as of this encounter
--- OUTSIDE RECORDS SUMMARY | 2024-05-06 15:33 | External Medical Summary | Summary of Care ---
Author Name Unknown Organization [facility] Address [address] [place] [address] Phone [phone] Care Team Providers Care Watch Electrician Name Role Phone Luz Maria Gama DO Primary Care Provider Encounter Details Date Type Department Care Team (Late st Contact Info) Description 03/09/[address] [facility] [address] [place] [address] Luz Maria Gama DO [address] [place] [address] Allergies No known active allergiesdocumented as of this encounter (statuses as of 03/09/2024) Medications Medication Sig Dispensed Refills Start Date [...] suspected opioid overdose. Seek medical help immediately. [email or web address] 1 mL 3 11/18/2023 Active Naloxone HCl 4 MG/0.1ML Nasal Liquid (Narcan Nasal) Administer 1 spray into 1 nostril for suspected opioid overdose. Seek immediate medical attention. https://www.Knowledgestreem.com/watch?v= [email or web address] 1 Each 3 11/18/2023 Active Omeprazole 40 [...] below 140/90,Ischemic cardiomyopathy,Coron christiane artery disease involving ugashik coronary artery of ugashik heart without angina pectoris,Dyslipidemi a, goal LDL [...] as of this encounter (statuses as of 03/09/2024) Active Problems Problem Noted Date Diagnosed Date [...] as of this encounter (statuses as of 03/09/2024) Resolved Problems Problem Noted Date Diagnosed Date [...] as of this encounter (statuses as of 03/09/2024) Immunizations Name Administration Dates Next Due COVID-19 mRNA, LNP-s, No Pre serve, 2-Dose Series (Greeng[employer] Mobile) 12/02/2020,10/28/2020 Pneumococcal Polysaccharide PPV23 (Pneumovax) Seasonal Influenza, [...] encounter Miscellaneous Notes * Telephone Encounter - Rosa Wu OSA - 03/09/2024 3:21 PM EDT CPAP Device 03/09/24 APPROVAL for CPAP Device E0601 - 3 Units. Sent to [facility] documented in this encounter Plan of Treatment Upcoming Encounters Date Type Department Care Team (Late st Contact Info) Description 03/13/2024 3:45 PM EDT Pharmacy Pharmacy Hematology Oncology [address] [address] [facility] Clinic Hem/Onc [facility] [place] [address] 03/15/2024 9:15 AM EDT Scheduled Telephone Palliative Medicine, [facility] [address] [facility] 5th Floor [place] [address] [place], Nurse Palliative Medicine [facility] 5th [facility] [address] 03/24/2024 10:00 AM EDT Telemedicine Palliative Medicine, [facility] [address] [facility] 5th [place] [address] Keisha Tompkins MD [address] [place] [address] 05/23/2024 4:00 PM EDT Imaging Radiology [facility], [address] [place] [address] 06/19/2024 11:15 AM EDT Office Visit Neurosurgery, [place] [address] [place] [address] Clinic, Brain Tumor Multidisciplinary [address] [place] [address] 06/28/2024 9:50 AM EDT Office Visit [place] [address] [place] [address] Luz Maria Gama, [address] [place] [address] Scheduled Procedures Name Priority Associated Diagnoses Date/Ti [...] Documents on File Type Date Recorded 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 No * Full Code Date Activated Date [...] Care Agent (per Health Care Power of Phototypesetting Equipment Monitor document) [email or web address] Care Teams Watch Electrician Relationship Specialty Start Date End Date Luz Maria Gama DO [address] [place] [address] PCP - General Family Medicine 01/04/23 documented as of this encounter
--- OUTSIDE RECORDS SUMMARY | 2024-05-06 15:33 | External Medical Summary | Summary of Care ---
Author Name Unknown Organization [facility] Address [address] [place] [address] Phone [phone] Care Team Providers Care Maintenance Fitter Name Role Phone Luz Maria Gama Primary Care Provider Reason for Visit * Reason Onset Date Comments Medication Refill 03/03/2024 Encounter Details Date Type Department Care Team (Late st Contact Info) Description 03/03/2024 Refill Neurosurgery, [facility] [address] [place], [place] [id number] Honey Souza IV, PA-C [address] [place] [address] Brain tumor (HCC); Brain mass Allergies No known active allergiesdocumented as of this encounter (statuses as of 03/06/2024) Medications Medication Sig Dispensed Refills Start Date [...] suspected opioid overdose. Seek medical help immediately. [email or web address] 1 mL 3 11/18/2023 Active Naloxone HCl 4 MG/0.1ML Nasal Liquid (Narcan Nasal) Administer 1 spray into 1 nostril for suspected opioid overdose. Seek immediate medical attention. https://www.MyoPowers Medical Technologies.com/watch? [email or web address] 1 Each 3 11/18/2023 Active Omeprazole 40 [...] for 10 days. 47 Tablet 02/28/2024 Active Omeprazole 20 MG Oral Capsule Delayed Release (PriLOSEC)Indicatio ns:Glioblastoma (HCC) Take 2 Capsules by mouth in the morning. 30 Capsule 02/28/2024 Active levETIRAcetam 500 MG Oral Tablet (Keppra)Indications :Brain tumor (HCC),Brain mass Take 1 Tablet by mouth in the morning and 1 Tablet before bedtime. 60 Tablet 2 03/06/2024 Active levETIRAcetam 500 MG Oral Tablet (Keppra)Indications :Brain tumor (HCC),Brain mass Take 1 Tablet by mouth in the morning and 1 Tablet before bedtime. 60 Tablet 2 01/11/2024 Discontinue d(Refill) documented as of this encounter (statuses as of 03/06/2024) Active Problems Problem Noted Date Diagnosed Date [...] as of this encounter (statuses as of 03/06/2024) Resolved Problems Problem Noted Date Diagnosed Date [...] as of this encounter (statuses as of 03/06/2024) Immunizations Name Administration Dates Next Due COVID-19 [...] have money to get more. Sometimes true Sex and Gender Information Value Date Recorded [...] encounter Miscellaneous Notes * Telephone Encounter - Honey Souza IV, PA-C - 03/06/2024 3:10 PM EDT Keppra medication refill placed. Honey Souza IV, PA-C * Telephone Encounter - Honey Souza IV, PA-C - 03/06/2024 3:10 PM EDT Signed Prescriptions: Disp Refills levETIRAcetam 500 MG Oral Tablet (Keppra) 60 Tab*2 Sig: Take 1 Tablet by mouth in the morning and 1 Tablet before bedtime. Authorizing Provider: HONEY SOUZA IV * Telephone Encounter - Darnell King [facility] - 03/06/2024 8:26 AM EDTPending Prescriptions: Disp Refills levETIRAcetam 500 MG Oral Tablet (Keppra) 60 Tab*2 Sig: Take 1 Tablet by mouth in the morning and 1 Tablet before bedtime. * Telephone Encounter - Darnell King RPh - 03/06/2024 8:20 AM EDT Keppra was started after craniotomy to prevent seizures. Please approve if appropriate to continue. Thanks, Estevan King, PharmD Clinical Pharmacist [facility] ([facility]) [phone] 03/06/2024 8:20 AM * Telephone Encounter - Alek Garcia - 03/03/2024 2:34 PM EDTPending Prescriptions: Disp Refills levETIRAcetam 500 MG Oral Tablet (Keppra) 60 Tab*2 Sig: Take 1 Tablet by mouth in the morning and 1 Tablet before bedtime. * Telephone Encounter - Alek Garcia - 03/03/2024 2:32 PM EDT Did you pend patient's preferred pharmacy and medication before forwarding?yes Pharmacy: [facility] Pending Prescriptions: Disp Refills levETIRAcetam 500 [...] appointment Last date the medication was ordered: 01/11/2024 Is this request for a controlled substance?No Urine Drug Screen:No results found for this or any previous visit. Patient Phone Numbers Labs: Lab Results Component Value Date/Time CREAT 1.1 02/28/2024 12:16 PM CREAT 1.17 11/22/2023 12:00 AM CREAT 1.1 04/02/2020 11:47 AM POTASSIUM 3.8 02/28/2024 12:16 PM POTASSIUM 4.2 11/22/2023 12:00 AM POTASSIUM 4.2 04/02/2020 11:47 AM TSH 1.77 10/25/2023 12:56 PM TSH 1.62 04/02/2020 11:47 AM LDLCALC 153 (H) 11/04/2023 01:05 PM LDLCALC 88 04/02/2020 11:47 AM LDLDIRECT NOT APPLICABLE 06/30/2017 09:38 AM ALT 46 02/28/2024 12:16 PM ALT 73 (H) 05/03/2020 01:29 PM HGBA1C 5.3 10/25/2023 12:56 PM HGBA1C 5.5 06/28/2018 11:41 AM documented in this encounter Plan of Treatment Upcoming Encounters Date Type Department Care Team (Late st Contact Info) Description 03/08/2024 2:00 PM EDT Telemedicine Palliative Medicine [facility] [address] [place] [id number] Keisha Tompkins MD [address] [place] [address] [place] [address] 05/23/2024 4:00 PM EDT Imaging Radiology [address] [facility] [place] [address] 06/19/2024 11:15 AM EDT Office Visit Neurosurgery, [facility] [address] [place] [address] Clinic, Brain Tumor Multidisciplinary [address] [place] [address] 06/28/2024 9:50 AM EDT Office Visit [facility] [address] [place] [phone] Luz Maria Gama [address] [place] [address] Scheduled Procedures Name Priority Associated Diagnoses Date/Ti [...] Documents on File Type Date Recorded Patient Sand Temperer Expl anation Advance Directives and Living Will 02/25/2024 Candi Mulligan signed on 11/06/2023 ADVANCE DIRECTIVE / LIVING WILL COMBINED LIVING WILL & HEALTH CARE POWER OF SINGE WINDER POLST 12/03/2023 9:15 AM sign date 12/01/2023 [...] the patient have Health Care Power of Motor Vehicle Assembly Supervisor? No * Full Code Date Activated [...] Care Agent (per Health Care Power of Motor Vehicle Assembly Supervisor document) Care Teams Maintenance Fitter Relationship Specialty Start Date End Date Luz Maria Gama DO [address] [place] [facility] [place] [address] PCP - General Family Medicine 01/04/23 documented as of this encounter
--- OUTSIDE RECORDS SUMMARY | 2024-05-06 15:33 | External Medical Summary | Summary of Care ---
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 Seek medical help immediately. [email or web address] 1 mL 3 11/18/2023 Active Naloxone HCl 4 MG/0.1ML Nasal Liquid (Narcan Nasal) Administer 1 spray into 1 nostril for suspected opioid overdose. Seek immediate medical attention. https://www.you BioData.com/watch? v=[email or web address] 1 Each 3 11/18/2023 Active Omeprazole 40 [...] once daily 90 Capsule 1 01/10/2024 Active levETIRAcetam 500 MG Oral Tablet (Keppra)Indications :Brain tumor (HCC),Brain mass Take 1 Tablet by mouth in the morning and 1 Tablet before bedtime. 60 Tablet 2 01/11/2024 Active Aspirin 81 MG Oral Tablet ChewableIndications [...] in the morning. 30 Capsule 02/28/2024 Active busPIRone HCl 10 MG Oral [...] mouth at bedtime. 60 Tablet 03/03/2024 Active Metoprolol Succinate ER 25 MG Oral Tablet Extended Release 24 Hour (toPROL XL)Indications:HTN, goal below 140/90,Ischemic cardiomyopathy,Aristeo nary artery disease involving tetlin coronary artery of tetlin heart without angina pectoris,Dyslipidem ia, goal LDL [...] 24 hours. 60 Tablet 1 03/03/2024 Active Docusate Sodium 50 MG Oral Capsule (Colace)Indications :Glioblastoma (HCC) Take 1 Capsule by mouth in the morning and 1 Capsule before bedtime. 60 Capsule 1 03/03/2024 Active Lomustine 40 MG Oral Capsule (Gleostine)Indicati ons:Glioblastoma (HCC) Take 4 Capsules by mouth every 6 weeks. Take on an empty stomach at bedtime 4 Capsule 03/03/2024 Active Metoprolol Succinate ER 25 MG Oral Tablet Extended Release 24 Hour (toPROL XL)Indications:HTN, goal below 140/90,Ischemic cardiomyopathy,Aristeo nary artery disease involving tetlin coronary artery of tetlin heart without angina pectoris,Dyslipidem ia, goal LDL below 100,Essential hypertension with goal blood pressure less than 140/90 Take 1 Tablet by mouth in the morning. 90 Tablet 06/24/2023 Discontinue d(Refill) documented as of this encounter (statuses as of 03/04/2024) Active Problems Problem Noted Date Diagnosed Date [...] as of this encounter (statuses as of 03/04/2024) Resolved Problems Problem Noted Date Diagnosed Date [...] as of this encounter (statuses as of 03/04/2024) Immunizations Name Administration Dates Next Due COVID-19 [...] encounter Miscellaneous Notes * Telephone Encounter - Stephen Kunz [facility] - 03/04/2024 2:20 AM EDTSigned Prescriptions: Disp Refills Metoprolol Succinate ER 25 MG Oral Tablet *90 Tab*1 Sig: Take 1 Tablet by mouth in the morning. Authorizing Provider: NICOLE GRAMAJO Ordering User: STEPHEN KUNZ * Telephone Encounter - Stephen Kunz [facility] - 03/04/2024 2:20 AM EDTSigned Prescriptions: Disp Refills Metoprolol Succinate ER 25 MG Oral Tablet *90 Tab*1 Sig: Take 1 Tablet by mouth in the morning. Authorizing Provider: NICOLE GRAMAJO Ordering User: STEPHEN KUNZ * Telephone Encounter - Kecia Lucas PHARM Tech - 03/03/2024 4:16 PM EDT Did you pend patient's preferred pharmacy and medication before forwarding?yes Pharmacy: [facility] Pending Prescriptions: Disp Refills Metoprolol Succinate ER 25 MG Oral Tablet*90 Tab*0 Sig: Take 1 Tablet by mouth in the morning. Last Visit: 11/04/2023 (in office), Visit date not found (telemedicine) Next Visit: 06/28/2024 If no future appointments scheduled, and last appointment is greater than a year ago, please schedule patient for a follow-up appointment Last date the medication was ordered: 06/24/2023 Is this request for a controlled substance?No Urine Drug Screen:No results found for this or any previous visit. Patient Phone Numbers [employer] [phone] Labs: Lab Results Component Value Date/Time CREAT [...] Care Team (Late st Contact Info) Description 03/06/2024 3:45 PM EDT Pharmacy Pharmacy Hematology Oncology [facility] [place] [address] [place] [address] [facility] Hem/Onc [address] [place] [address] 03/08/2024 2:00 PM EDT Telemedicine Palliative Medicine [facility] [address] [place] [address] Keisha Tompkins MD [address] [place] [address] 05/23/2024 4:00 PM EDT Imaging Radiology [address] [place] [address] 06/19/2024 11:15 AM EDT Office Visit Neurosurgery, [place] [address] [place] [address] Clinic, Brain Tumor Multidisciplinary [address] [place] [address] 06/28/2024 9:50 AM EDT Office Visit [facility] [address] [place] [phone] Nicole Gramajo, DO [address] [place] [address] Scheduled Procedures Name Priority Associated Diagnoses Date/Ti [...] as of this encounter Visit Diagnoses Diagnosis HTN, goal below 140/90 Unspecified essential hypertension Ischemic cardiomyopathy Other specified forms of chronic ischemic heart disease 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 No * Full Code Date Activated Date [...] Care Agent (per Health Care Power of Upper Marker document) [email or web address] Care Teams Diesel Crane Operator Relationship Specialty Start Date End Date Nicole Gramajo DO [address] [place] [address] PCP - General Family Medicine 01/04/23 documented as of this encounter
--- OUTSIDE RECORDS SUMMARY | 2024-05-06 15:33 | External Medical Summary | Summary of Care ---
Author Name Unknown Organization [facility] [address] [facility] [address] Phone [phone] Care Team Providers Care Multi Media Specialist Name Role Phone Luz Maria Gama Primary Care Provider Encounter Details Date Type Department Care Team (Late st Contact Info) Description 03/06/2024 Orders Only Hematology/Oncology [facility] [place] [address] [facility] [place] [id number] Shay Song MD [address] [facility] [place] [address] Glioblastoma (HCC)* Allergies No known active allergiesdocumented [...] suspected opioid overdose. Seek medical help immediately. [email or web address] 1 mL 3 11/18/2023 Active Naloxone HCl 4 MG/0.1ML Nasal Liquid (Narcan Nasal) Administer 1 spray into 1 nostril for suspected opioid overdose. Seek immediate medical attention. https://www.Funji.com/watch?v= [email or web address] 1 Each 3 11/18/2023 Active Omeprazole 40 [...] 01/10/2024 Active levETIRAcetam 500 MG Oral Tablet (Keppra)Indications: Brain tumor (HCC),Brain mass Take 1 Tablet by mouth in the morning and 1 Tablet before bedtime. 60 Tablet 2 01/11/2024 Active Aspirin 81 MG Oral Tablet ChewableIndications: [...] 10 days. 47 Tablet 02/28/2024 04/01/2024 Active Omeprazole 20 MG Oral Capsule Delayed Release (PriLOSEC)Indication s:Glioblastoma (HCC) Take 2 Capsules by mouth in the morning. 30 Capsule 02/28/2024 Active busPIRone HCl 10 MG Oral Tablet (Buspar)Indications: Anxiety state Take 1 Tablet by mouth 2 times a day as needed for Agitation or Anxiety. 60 Tablet 2 03/03/2024 Active Morphine Sulfate ER 30 MG Oral Tablet Extended Release (Ms Contin)Indications:C [...] below 140/90,Ischemic cardiomyopathy,Coron christiane artery disease involving tangirnaq coronary artery of tangirnaq heart without angina pectoris,Dyslipidemi a, goal LDL [...] Active Docusate Sodium 50 MG Oral Capsule (Colace)Indications: Glioblastoma (HCC) Take 1 Capsule by mouth in the morning and 1 Capsule before bedtime. 60 Capsule 1 03/03/2024 Active Lomustine 40 MG Oral Capsule (Gleostine)Indicatio ns:Glioblastoma (HCC) Take 4 Capsules by mouth every 6 weeks. Take on an empty stomach at bedtime 4 Capsule 03/03/2024 Active documented as of this encounter (statuses [...] mRNA, LNP-s, No Pre serve, 2-Dose Series (Datam) 12/02/2020,10/28/2020 Pneumococcal Polysaccharide PPV23 (Pneumovax) Seasonal Influenza, [...] as of this encounter Progress Notes * Shay Song MD - 03/06/2024 11:57 AM EDT The dose of dose of lomustine would be 160 mg for Cycle 1 and then 200 mg with Cycles 2+ if he tolerates Cycle 1 well. documented in this encounter Plan of Treatment Upcoming Encounters Date Type Department Care Team (Late st Contact Info) Description 03/06/2024 3:45 PM EDT Pharmacy Pharmacy Hematology Oncology [facility] [place] [address] [place] [address] [facility] Hem/Onc [address] [place] [address] 03/08/2024 2:00 PM EDT Telemedicine Palliative Medicine [facility] [address] [place] [address] Keisha Tompkins MD [address] [place], [place] [address] [address] 05/23/2024 4:00 PM EDT Imaging Radiology [address] [facility] [place] [id number] 06/19/2024 11:15 AM EDT Office Visit Neurosurgery, [place] [address] [place] [address] Clinic, Brain Tumor Multidisciplinary [facility] [place] [address] 06/28/2024 9:50 AM EDT Office Visit [address] [address] Luz Maria Gama, [address] [place] [address] Scheduled Procedures Name Priority Associated Diagnoses Date/Ti [...] Documents on File Type Date Recorded 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 No * Full Code Date Activated Date [...] Care Agent (per Health Care Power of Purse Framer document) [email or web address] Care Teams Multi Media Specialist Relationship Specialty Start Date End Date Luz Maria Gama DO [address] [place] [address] PCP - General Family Medicine 01/04/23 documented as of this encounter
--- OUTSIDE RECORDS SUMMARY | 2024-05-06 15:33 | External Medical Summary | Summary of Care ---
Author Name Unknown Organization [facility] Address [address] [place] [address] Phone [phone] Care Team Providers Care Meteorology Teacher Name Role Phone Luz Maria Gama Primary Care Provider [phone] Reason for Visit * Reason Onset Date Comments Precert Future 02/28/2024 Zirabev/Lomustin e Encounter Details Date Type Department Care Team (Late st Contact Info) Description 02/28/2024 Telephone Hematology/Oncology [facility] Alannah [place] [address] [facility] [place] [address] Palak Cast MD [address] [place] [address] Precert Future (Zirabev/Lomustine) Allergies No known active allergiesdocumented as of this encounter (statuses as of 03/10/2024) Medications Medication Sig Dispensed Refills Start Date [...] suspected opioid overdose. Seek medical help immediately. [email or web address] 1 mL 3 11/18/2023 Active Naloxone HCl 4 MG/0.1ML Nasal Liquid (Narcan Nasal) Administer 1 spray into 1 nostril for suspected opioid overdose. Seek immediate medical attention. https://www.139shop.com/watch? v=[email or web address] 1 Each 3 11/18/2023 Active Omeprazole 40 [...] below 140/90,Ischemic cardiomyopathy,Aristeo nary artery disease involving [place] coronary artery of [place] heart without angina pectoris,Dyslipidem ia, goal LDL [...] as of this encounter (statuses as of 03/10/2024) Active Problems Problem Noted Date Diagnosed Date [...] as of this encounter (statuses as of 03/10/2024) Resolved Problems Problem Noted Date Diagnosed Date [...] as of this encounter (statuses as of 03/10/2024) Immunizations Name Administration Dates Next Due COVID-19 [...] know what's possible. Thank you! " Per [facility] note, this is being shipped 03/13. Spoke [...] received, plan built and routed. Awaiting authorization. [facility]- please see orders for Lomustine and [...] EDT Pharmacy Pharmacy Hematology Oncology [facility], [address] [address] [address], [facility] Hem/Onc [facility] [place] [address] 03/15/2024 9:15 AM EDT Scheduled Telephone Palliative Medicine, [address] [place] [address] [place], Nurse Palliative Medicine [address] [address] 03/24/2024 10:00 AM EDT Telemedicine Palliative Medicine, [address] [place] [address] Keisha Tompkins MD [address] [place] [address] 05/23/2024 4:00 PM EDT Imaging Radiology [facility] 1st [facility], [place] [address] [facility] [place] [address] 06/19/2024 11:15 AM EDT Office Visit Neurosurgery, [place] [address] [place] [address] Clinic, Brain Tumor Multidisciplinary [facility] [place] [address] 06/28/2024 9:50 AM EDT Office Visit [facility] [address] [place] [address] Luz Maria Gama DO [address] [place] [address] Scheduled Orders Name Type Priority Associated Diagnoses [...] Documents on File Type Date Recorded Patient Specialty Sales Consultant Expl anation Advance Directives and Living Will 02/25/2024 Candi Mulligan signed on 11/06/2023 ADVANCE DIRECTIVE / LIVING WILL COMBINED LIVING WILL & HEALTH CARE POWER OF BRICK SORTER POLST 12/03/2023 9:15 AM sign date [...] the patient have Health Care Power of Bandsaw Operator? No * Full Code Date Activated [...] Care Agent (per Health Care Power of Bandsaw Operator document) Care Teams Meteorology Teacher Relationship Specialty Start Date End Date Luz Maria Gama DO [address] [place], [place] [phone] PCP - General Family Medicine 01/04/23 documented as of this encounter
--- OUTSIDE RECORDS SUMMARY | 2024-05-06 15:33 | External Medical Summary | Summary of Care ---
Author Name Unknown Organization [facility] Address [address] [place] [address] Phone [phone] Care Team Providers Care Supervisor Receiving And Processing Name Role Phone Luz Maria Gama Primary Care Provider Reason for Visit * Reason Comments Medication Management Encounter Details Date Type Department Care Team (Late st Contact Info) Description 03/06/2024 3:45 PM EDT Pharmacy Pharmacy Hematology Oncology [facility] [address] [place] [address] [facility], [facility] Hem/Onc [address] [place], [place] [id number] Glioblastoma (HCC)* Allergies No known active allergiesdocumented [...] suspected opioid overdose. Seek medical help immediately. [email or web address] 1 mL 3 11/18/2023 Active Naloxone HCl 4 MG/0.1ML Nasal Liquid (Narcan Nasal) Administer 1 spray into 1 nostril for suspected opioid overdose. Seek immediate medical attention. https://www.NanoAntibiotics.com/watch? v=[email or web address] 1 Each 3 11/18/2023 Active Omeprazole 40 [...] below 140/90,Ischemic cardiomyopathy,Aristeo nary artery disease involving [place] coronary artery of [place] heart without angina pectoris,Dyslipidem ia, goal LDL [...] stomach at bedtime 4 Capsule 03/03/2024 Active levETIRAcetam 500 MG Oral Tablet (Keppra)Indications :Brain tumor (HCC),Brain mass Take 1 Tablet by mouth in the morning and 1 Tablet before bedtime. 60 Tablet 2 01/11/2024 4 Discontinue d(Refill) Docusate Sodium 50 MG Oral Capsule (Colace)Indications :Glioblastoma (HCC) Take 1 Capsule by mouth in the morning and 1 Capsule before bedtime. 60 Capsule 1 03/03/2024 4 Discontinue d(Medicatio n/Dose Changed) documented as of this encounter (statuses as [...] Martha Rivera, [facility] - 03/06/2024 1:48 PM EDT MEDICATION THERAPY MANAGEMENT LOMUSTINE TREATMENT EDUCATION NOTE Remy Shailesh Lujan [phone] Patient Phone Numbers Significant Other: Candi Communication: Spoke to: Other: Candi Treatment: Medication: Lomustine (CCNU, Gleostine) Indication/Staging/Diagnosis Code: Glioblastoma, WHO Grade IV, C71.9 Dose Basis: Per IRMAOB Trial: Cycle 1: 90 mg/m2 * 2.68 [...] Administration: empty stomach at bedtime Start Date: TBD Primary Watch Mechanic/Oncologist: Dr. Shay Song Additional Therapy: Bevacizumab Supportive Care Meds: Ondansetron Miralax Senna Prophylactic Meds: Consider PJP ppx for ALC < 0.5 - patient was on Bactrim previously Relevant Chronic Medications: Category Medications Pertinent Notes Antihypertensives Lisinopril Metoprolol Anticoagulation Aspirin Cycle Dates C1 TBD C2 TBD Treatment History: Resection 11/10/23 TMZ+RT completed 01/24/24 Medication education: Confirmed pt has received information regarding goals and duration of therapy: yes Reviewed dosing and administration: yes Reviewed importance of medication compliance (document recommendations if barriers identified): yes Reviewed appropriate storage conditions: yes Reviewed handling precautions: yes Reviewed handling body fluids and waste: yes Reviewed side effects, monitoring, and supportive care measures: yes Nausea/vomiting This medication may cause nausea or vomiting Low/Minimal emetic risk: Zofran/Compazine PRN, but if consistently nauseated, can administer Psezzz25 minutes prior to chemotherapy Moderate/high emetic risk: Zofran 30 minutes prior to chemotherapy and q8h PRN. Compazine for breakthrough N/V Dietary modifications: avoid spicy, greasy, fatty foods If vomiting, increase water intake to avoid dehydration When to call clinic: N/V refractory to antiemetics or if unable to keep up with oral intake Cytopenias Confirmed pt has received written information about drug therapy: no Changes to medication list since last visit: no Drug interaction assessment: Treatment plan and current medication list evaluated for drug-drug interactions. No clinically significant drug interaction identified Does patient rely on caregiver for medication management? yes Assessment and plan: Significant other verbalized understanding to information provided. All questions answered to the patient's satisfaction Significant other was educated about role of Oral Chemotherapy Clinic and pharmacist in medication management, and plan for follow up. Discussed recommended weekly lab monitoring with lomustine therapy Significant other reports they were given ok to have labs completed q2w due to travel ([facility]) SM sent to Dr. Song to confirm lab frequency with Dr. Song Discussed with significant other that depending on lab results, may have to more to more frequent lab monitoring Will follow-up in 1 week to confirm if medication received/started Follow up: 1 week Martha Rivera, PharmD, BCOP Ambulatory Clinical Pharmacist | Oral Chemotherapy Clinic [facility] 03/06/2024, 3:50 PM Monitoring Parameters: Estimated CrCl Serum creatinine: 1.1 mg/dL 02/28/24 1216 Estimated creatinine clearance: 107.9 mL/min Hepatitis panel Complete 02/28/24 Not immune to hepatitis B virus Suggested lab monitoring CBCd and CMP weekly Treatment Parameters Please refer to PI Pertinent labs: Time Spent on Encounter: 16 - 20 minutes Encounter Group: Neuro-Oncology Encounter Interventions Item Category: Oral Chemotherapy Lomustine Problem/Rationale: Education: Initial education Pharmacist Intervention(s): Care coordination, Clarification with Provider, and Education provided Magnitude of Intervention: Monitoring with direction (Level 1) documented in this encounter Plan of Treatment Upcoming Encounters Date Type Department Care Team (Late st Contact Info) Description 03/08/2024 2:00 PM EDT Telemedicine Palliative Medicine [facility] [address] [place] [address] Keisha Tompkins MD [address] [place] [address] [place] [address] 03/13/2024 3:45 PM EDT Pharmacy Pharmacy Hematology Oncology [facility], [place] [address] [place] [address] [facility], [facility] Hem/Onc [address] [place] [address] 05/23/2024 4:00 PM EDT Imaging Radiology [address] [place] [address] 06/19/2024 11:15 AM EDT Office Visit Neurosurgery, [place] [address] [place] [address] Clinic, Brain Tumor Multidisciplinary [address] [place] [address] 06/28/2024 9:50 AM EDT Office Visit [facility] [address] [place] [phone] Luz Maria Gama, DO [address] [place] [address] Scheduled Procedures Name Priority Associated Diagnoses Date/Ti [...] Documents on File Type Date Recorded 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 No * Full Code Date Activated [...] Care Agent (per Health Care Power of Company Manager document) [email or web address] Care Teams Supervisor Receiving And Processing Relationship Specialty Start Date End Date Luz Maria Gama DO [address] [place] [facility] [place] [address] PCP - General Family Medicine 01/04/23 documented as of this encounter"
--- OUTSIDE RECORDS SUMMARY | 2024-05-06 15:33 | External Medical Summary | Summary of Care ---
Author Name Unknown Organization [facility] Address [address] [place] [address] Phone [phone] Care Team Providers Care Sleep Lab Technician Name Role Phone Luz Maria Gama Primary Care Provider [phone] Reason for Visit * Reason Onset Date Comments Precert Future 02/28/2024 Zirabev/Lomustin e Encounter Details Date Type Department Care Team (Late st Contact Info) Description 02/28/2024 Telephone Hematology/Oncology [facility] Al[place] [address] [place] [facility] [place] [address] Palak Cast MD [address] [place] [address] Precert Future (Zirabev/Lomustine) Allergies No [...] suspected opioid overdose. Seek medical help immediately. [email or web address] 1 mL 3 11/18/2023 Active Naloxone HCl 4 MG/0.1ML Nasal Liquid (Narcan Nasal) Administer 1 spray into 1 nostril for suspected opioid overdose. Seek immediate medical attention. https://www.Amulaire Thermal Technology.com/watch? 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 Awaiting authorization. [facility]- please see orders for Lomustine and create plan. Thank you. -Chemo Consent: Needs Completed -Chemo Education: Needs Scheduled -Port Placement: TBD -Standing Lab orders placed: CBCD,CMP,UA -Medications Pended: None -Hep B Labs: Completed 02/28/24 documented in this encounter Plan of Treatment Upcoming Encounters Date Type Department Care Team (Late st Contact Info) Description 03/13/2024 3:45 PM EDT Pharmacy Pharmacy Hematology Oncology [address] [address] [facility] Hem/Onc [address] [place] [address] 03/15/2024 9:15 AM EDT Scheduled Telephone Palliative Medicine, [address] 5th Floor [place] [address] [place], Nurse Palliative Medicine [facility] [address] [place], [place] [address] [address] 03/24/2024 10:00 AM EDT Telemedicine Palliative Medicine, [facility] [address] [facility] 5th [place] [address] Keisha Tompkins MD [address] [place] [address] 05/23/2024 4:00 PM EDT Imaging Radiology [facility] 1st [facility], [place] [address] [facility] [place] [address] 06/19/2024 11:15 AM EDT Office Visit Neurosurgery, [place] [address] [place] [address] Clinic, Brain Tumor Multidisciplinary [address] [place] [address] 06/28/2024 9:50 AM EDT Office Visit [place] [address] [place] [phone] Luz Maria Gama, DO [address] [place] [address] Scheduled Orders Name Type Priority Associated Diagnoses [...] Documents on File Type Date Recorded 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 No * Full Code Date Activated Date [...] Care Agent (per Health Care Power of Manager Communication document) [email or web address] Care Teams Sleep Lab Technician Relationship Specialty Start Date End Date Luz Maria Gama DO [address] [place] [address] PCP - General Family Medicine 01/04/23 documented as of this encounter
--- OUTSIDE RECORDS SUMMARY | 2024-05-06 15:33 | External Medical Summary | Summary of Care ---
Author Name Unknown Organization [facility] Address [address] [place] [address] Phone [phone] Care Team Providers Care Warranty Administrator Name Role Phone Luz Maria Gama Primary Care Provider Reason for Visit * Reason Onset Date Comments Precert Future 02/28/2024 Zirabev/Lomustin e Encounter Details Date Type Department Care Team (Late st Contact Info) Description 02/28/2024 Telephone Hematology/Oncology [facility] Alannah [employer] [address] [place] [facility] [place] [address] Palak Cast MD [address] [place] [address] Precert Future (Zirabev/Lomustine) Allergies No [...] suspected opioid overdose. Seek medical help immediately. [email or web address] 1 mL 3 11/18/2023 Active Naloxone HCl 4 MG/0.1ML Nasal Liquid (Narcan Nasal) Administer 1 spray into 1 nostril for suspected opioid overdose. Seek immediate medical attention. https://www.Andela.com/watch? v=[email or web address] 1 Each 3 11/18/2023 Active Omeprazole 40 [...] below 140/90,Ischemic cardiomyopathy,Aristeo nary artery disease involving [place] coronary artery of [place] heart without angina pectoris,Dyslipidem ia, goal LDL [...] know what's possible. Thank you! " Per [facility] note, this is being shipped 03/13. Spoke [...] received, plan built and routed. Awaiting authorization. [facility]- please see orders for Lomustine and create plan. Thank you. -Chemo Consent: Needs Completed -Chemo Education: Needs Scheduled -Port Placement: TBD -Standing Lab orders placed: CBCD,CMP,UA -Medications Pended: None -Hep B Labs: Completed 02/28/24 documented in this encounter Plan of Treatment Upcoming Encounters Date Type Department Care Team (Late st Contact Info) Description 03/13/2024 3:45 PM EDT Pharmacy Pharmacy Hematology Oncology [facility] [address] [place] [address] [facility] Hem/Onc [address] [place] [address] 03/15/2024 9:15 AM EDT Scheduled Telephone Palliative Medicine, [address] 5[address] Floor [place] [address] [place], Nurse Palliative Medicine [facility] [address] [place], [place] [address] [address] 03/22/2024 10:30 AM EDT Laboratory Laboratory [facility] [employer] [address] [facility] [employer] [phone] Cristobal [address] [place] [address] 03/22/2024 12:00 PM EDT Hem/Onc Treatment Hematology/Oncology Treatment, [employer] [address] [employer], [place] [phone] Alannah, Chair 1 Hem Onc [address] [employer], [place] [address] 03/24/2024 10:00 AM EDT Telemedicine Palliative Medicine, [facility] [address] [facility] 5th [place] [address] Keisha Tompkins MD [address] [place] [address] 05/23/2024 4:00 PM EDT Imaging Radiology [facility] 1st [facility] [address] [facility] [place] [address] 06/19/2024 11:15 AM EDT Office Visit Neurosurgery, [place] [address] [place] [address] Clinic, Brain Tumor Multidisciplinary [address] [place] [address] 06/28/2024 9:50 AM EDT Office Visit [facility] [address] [place] [phone] Luz Maria Gmaa DO [address] [place] [address] Scheduled Orders Name Type Priority Associated Diagnoses [...] Documents on File Type Date Recorded 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 No * Full Code Date Activated [...] Care Agent (per Health Care Power of Barge Engineer document) .FamilyID Care Teams Warranty Administrator Relationship Specialty Start Date End Date Luz Maria Gama DO [address] [place] [address] PCP - General Family Medicine 01/04/23 documented as of this encounter
--- OUTSIDE RECORDS SUMMARY | 2024-05-06 15:33 | External Medical Summary | Summary of Care ---
Author Name Unknown Organization [facility] Address [address] [place] [address] Phone [phone] Care Team Providers Care Bench Assembler Operator Name Role Phone Luz Maria Gama Primary Care Provider [phone] Reason for Visit * Reason Comments Medication Management Encounter Details Date Type Department Care Team (Late st Contact Info) Description 03/03/2024 1:30 PM EDT Pharmacy Pharmacy Hematology Oncology [facility] [address] [place] [address] [facility] Hem/Onc [address], [place] [id number] Glioblastoma (HCC)* Allergies No known active allergiesdocumented as of this encounter (statuses as of 03/03/2024) Medications Medication Sig Dispensed Refills Start Date [...] per day 180 Tablet 1 06/24/2023 Active Metoprolol Succinate ER 25 MG Oral Tablet Extended Release 24 Hour (toPROL XL)Indications:HTN, goal below 140/90,Ischemic cardiomyopathy,Aristeo nary artery disease involving yurok coronary artery of yurok heart without angina pectoris,Dyslipidem ia, goal LDL below 100,Essential hypertension with goal blood pressure less than 140/90 Take 1 Tablet by mouth in the morning. 90 Tablet 06/24/2023 Active Lisinopril 20 MG Oral Tablet (Prinivil)Indicatio ns:HTN, goal below 140/90 Take 1 Tablet by mouth in the morning. 90 Tablet 3 11/04/2023 Active CPAP every night at bedtime. Active Naloxone HCl 0.4 MG/ML Injection Solution (Narcan)Indications :Brain tumor (HCC),Brain mass Inject 1mL into a large muscle for suspected opioid overdose. Seek medical help immediately. [email or web address].be [email or web address] 1 mL 3 11/18/2023 Active Naloxone HCl 4 MG/0.1ML Nasal Liquid (Narcan Nasal) Administer 1 spray into 1 nostril for suspected opioid overdose. Seek immediate medical attention. https://www.Keystok.com/watch? v=[email or web address] 1 Each 3 11/18/2023 Active Omeprazole 40 [...] before bedtime. 60 Tablet 2 01/11/2024 Active busPIRone HCl 10 MG Oral Tablet (Buspar)Indications :Anxiety state Take 1 Tablet by mouth 2 times a day as needed for Agitation or Anxiety. 60 Tablet 2 01/31/2024 Active Aspirin 81 MG Oral Tablet ChewableIndications :Ischemic cardiomyopathy Take 1 Tablet by mouth in the morning. 30 Tablet 11 02/08/2024 Active Morphine Sulfate ER 30 MG Oral Tablet Extended Release (Ms Contin)Indications: Cancer related pain Take 1 Tablet by mouth in the morning and 1 Tablet before bedtime. Continued script. 60 Tablet 02/08/2024 Active Morphine Sulfate 15 MG Oral Tablet (Msir)Indications:C ancer related pain Take 1 Tablet by mouth every 4 hours as needed for Pain, Severe. Continued script 60 Tablet 02/08/2024 Active Polyethylene Glycol 3350 17 GM Oral Packet (Miralax)Indication s:Constipation due to pain medication Take 1 Packet by mouth in the morning. 30 Each 02/08/2024 Active Sennosides 8.6 MG Oral Tablet (Senokot)Indication s:Constipation due to pain medication Take 2 Tablets by mouth at bedtime. 60 Tablet 02/08/2024 Active dexAMETHasone 2 MG Oral Tablet (Decadron)Indicatio ns:Glioblastoma (HCC) Take 2 Tablets by mouth 2 times a day for 3 days, THEN 1 Tablet 2 times a day with morning and evening meals for 10 days, THEN 1 Tablet daily with breakfast for 10 days, THEN 1 Tablet every other day for 10 days. 47 Tablet 02/28/2024 4 Active Omeprazole 20 MG Oral Capsule Delayed Release (PriLOSEC)Indicatio ns:Glioblastoma (HCC) Take 2 Capsules by mouth in the morning. 30 Capsule 02/28/2024 Active Ondansetron HCl 8 MG Oral Tablet (Zofran)Indications :Nausea Take 1 Tablet by mouth every 8 hours as needed for Nausea. 90 Tablet 1 12/22/2023 4 Discontinue d(Refill) documented as of this encounter (statuses as of 03/03/2024) Active Problems Problem Noted Date Diagnosed Date [...] as of this encounter (statuses as of 03/03/2024) Resolved Problems Problem Noted Date Diagnosed Date [...] as of this encounter (statuses as of 03/03/2024) Immunizations Name Administration Dates Next Due COVID-19 [...] this encounter Progress Notes * Martha Rivera, [facility] - 03/03/2024 3:04 PM EDT Lomustine released to [facility]. Ondansetron and docusate sent to [facility]. Lomustine dose appropriate for Cycle 1 of therapy. Discussing dosing for further cycles with Dr. Song. Will follow-up next week to provide lomustine education. Martha Rivera, PharmD, OP Ambulatory Clinical Pharmacist | Oral Chemotherapy Clinic [facility] 03/03/2024, 3:04 PM * Korin Tsai, [facility] - 03/03/2024 10:45 AM EDT NEW REFERRAL TO ORAL CHEMO CLINIC/MEDICATION RECONCILIATION NOTE Remy Cash Tia [id number] Patient Phone Numbers Communication: Spoke to: Other: Candi [facility] flyer sent via [employer] Treatment: Medication: Lomustine (CCNU, Gleostine) Indication/Staging/Diagnosis Code: Glioblastoma, WHO Grade IV, C71.9 Dose Basis: discussing dosing with Dr. Song Per IRMA Trial: Cycle 1: 90 mg/m2 * 2.68 [...] stomach at bedtime Start Date: TBD Primary Performance Improvement Manager/Oncologist: Dr. Shay Song Provider has consented patient: Yes Patient was introduced to Oral Chemotherapy Clinic: OCC is a free service for patients receiving oral chemo therapy. We are Pharmacists & Pharmacy Technicians, who are a part of hematology & oncology care across the [facility] system offering telephone based appointments from the comfort of your own home. Pharmacists are available Wednesday-Wednesday from 8am - 4:30pm. After 4:30pm, non- urgent messages can be left on the pharmacist voicemail, and urgent calls/questions/concerns should be directed to their oncologist office directly (number provided). In case of an emergency, patient is awareto call 911 or travel to nearest emergency department. Communicated to patient: Pharmacists will provide education about your medication, manage oral chemotherapy side effects & review labs. All information will be shared & available to your oncologist. Explained to patient: once they decide on a treatment with their Oncologist, a Pharmacist will review the treatment plan to ensure correct dosing, review labs & medications to prevent any interactions. Medication authorization is submitted to your insurance. Once approved, your Rx will be sent to the Pharmacy determined by your insurance plan. Specialty Pharmacy will contact you to arrange delivery & discuss co-payment and any assistance options, if required. A Pharmacist will contact you to provide medication education, follow up periodically to review lab results & to assess/manage side effects. Patient was reassured the process to obtain medication can take several days-weeks. Patient was informed that hepatitis B screening must be completed prior to initiation of treatment.- Completed 02/28/24 Patient has given verbal consent that staff from the Oral Chemotherapy Clinic can speak to Other: Significant other Candi regarding their treatment Patient has given verbal consent that staff from the Oral Chemotherapy Clinic can leave a voicemailwith treatment-related information: Yes This information can be left on Cell Performed medication reconciliation with patient; pharmacist will be in touch if there are any druginteractions with oral chemo. Patient voiced understanding on all accounts. She had no questions or concerns today. Korin Tsai Bdr III Hematology Oncology Oral Chemotherapy Clinic Medication Therapy Disease Management [facility] 03/03/2024 11:02 AM Time Spent on Encounter: 11 - 15 minutes Encounter Group: Neuro-Oncology Encounter Interventions Item Category: Oral Chemotherapy Lomustine Problem/Rationale: Education: Clarification Pharmacist Intervention(s): Medication reconciliation Magnitude of Intervention: Monitoring with no interventions (Level 0) * Korin Tsai CPhT - 03/03/2024 10:39 AM EDT MEDICATION THERAPY MANAGEMENT LOMUSTINE INITIAL INTAKE NOTE Remy Lujan [id number] Patient Phone Numbers Communication: Chart review Treatment: Medication: Lomustine (CCNU, Gleostine) Indication/Staging/Diagnosis Code: Glioblastoma, WHO Grade IV, C71.9 Dose Basis: discussing dosing with Dr. Song Per DARRYL Trial: Cycle 1: 90 mg/m2 [...] stomach at bedtime Start Date: TBD Primary Performance Improvement Manager/Oncologist: Dr. Shay Song Additional Therapy: Bevacizumab Supportive Care Meds: Ondansetron Docusate Miralax Senna Prophylactic Meds: Consider PJP ppx for ALC < 0.5 - patient was on Bactrim previously Relevant Chronic Medications: Category Medications Pertinent Notes Antihypertensives Lisinopril Metoprolol Anticoagulation Aspirin Cycle Dates C1 TBD C2 TBD The Hematology/Oncology Oral Chemotherapy Clinic will assess medication compliance at each patient encounter Yes/no Date Action Taken [place] plan entered? Yes 03/01/24 Consent completed? Yes 02/29/24 Intro/med rec completed? Yes 03/03/24 Precert completed? Yes 03/02/24 Test claim completed? Yes 03/02/24 GSP- $3.00 Financial assistance needed? Physician signature? No Rx released? Education completed? Will follow up in 2 days to check on physician approval [facility] will contact patient once med shipped/received to complete medication education Please refer to initial intake note for detailed review of regimen and patient- specific education points Korin Tsai Bdr III Hematology Oncology Oral Chemotherapy Clinic Medication Therapy Disease Management [facility] 03/03/2024 11:05 AM Time Spent on Encounter: 6 - 10 minutes documented in this encounter Plan of Treatment Upcoming Encounters Date Type Department Care Team (Late st Contact Info) Description 03/06/2024 3:45 PM EDT Pharmacy Pharmacy Hematology Oncology [address] [address] [facility] Hem/Onc [address] [place] [address] 03/08/2024 2:00 PM EDT Telemedicine Palliative Medicine [facility] [address] [place] [phone] Keisha Tompkins MD [address] [place] [id number] 05/23/2024 4:00 PM EDT Imaging Radiology [address] [place] [address] 06/19/2024 11:15 AM EDT Office Visit Neurosurgery, [place] [address] [place] [address] Clinic, Brain Tumor Multidisciplinary [address] [place] [address] 06/28/2024 9:50 AM EDT Office Visit [facility] [address] [place] [phone] Luz Maria Gama, [address] [place] [address] Scheduled Procedures Name Priority Associated Diagnoses Date/Ti [...] on File Type Date Recorded Patient Health Analyst Expl anation Advance Directives and Living Will 02/25/2024 Candi Isaak signed on 11/06/2023 ADVANCE DIRECTIVE / LIVING WILL COMBINED LIVING WILL & HEALTH CARE POWER OF TRANSMISSION TESTER POLST 12/03/2023 9:15 AM sign date 12/01/2023 [...] the patient have Health Care Power of Sole Scraper? No * Full Code Date Activated Date [...] Care Agent (per Health Care Power of Sole Scraper document) [email or web address] Care Teams Bench Assembler Operator Relationship Specialty Start Date End Date Luz Maria Gama DO [address] [place] [facility] [place] [address] PCP - General Family Medicine 01/04/23 documented as of this encounter"
--- OUTSIDE RECORDS SUMMARY | 2024-05-06 15:33 | External Medical Summary | Summary of Care ---
Author Name Unknown Organization [facility] Address [address] [place] [address] Phone [phone] Care Team Providers Care Laser Engineer Name Role Phone Luz Maria Gama Primary Care Provider Reason for Visit * Reason Onset Date Comments Medication Refill 03/03/2024 Encounter Details Date Type Department Care Team (Late st Contact Info) Description 03/03/2024 Refill Neurosurgery, [place] [address], [place] [phone] Honey Souza IV, PA-C [address] [place] [address] Brain tumor (HCC); Brain mass [...] suspected opioid overdose. Seek medical help immediately. http://[email or web address].com.be [email or web address] 1 mL 3 11/18/2023 Active Naloxone HCl 4 MG/0.1ML Nasal Liquid (Narcan Nasal) Administer 1 spray into 1 nostril for suspected opioid overdose. Seek immediate medical attention. https://www.Allworx.com/watch? v=[email or web address] 1 Each 3 11/18/2023 Active Omeprazole 40 [...] continue. Thanks, Estevan King, PharmD Clinical Pharmacist [facility] ([facility]) [phone] 03/06/2024 8:20 AM * Telephone Encounter - Alek Garcia - 03/03/2024 2:34 PM EDTPending Prescriptions: Disp Refills levETIRAcetam 500 MG Oral Tablet (Keppra) 60 Tab*2 Sig: Take 1 Tablet by mouth in the morning and 1 Tablet before bedtime. * Telephone Encounter - Alek Garcia - 03/03/2024 2:32 PM EDT Did you pend patient's preferred pharmacy and medication before forwarding?yes Pharmacy: [facility] Pending Prescriptions: Disp Refills levETIRAcetam 500 [...] 3:45 PM EDT Pharmacy Pharmacy Hematology Oncology [facility] [place] [facility] [address] [place] [address] [facility] Hem/Onc [address] [place] [address] Glioblastoma (HCC)* 03/08/2024 2:00 PM EDT Telemedicine Palliative Medicine [facility] [address] [place] [address] Keisha Tompkins MD [address] [place] [address] 05/23/2024 4:00 PM EDT Imaging Radiology [facility] 1st [facility], [address] [address] 06/19/2024 11:15 AM EDT Office Visit Neurosurgery, [place] [address] [place] [address] Clinic, Brain Tumor Multidisciplinary [address] [place] [address] 06/28/2024 9:50 AM EDT Office Visit [facility] [address] [place] [phone] Luz Maria Gama, [address] [place] [address] Scheduled Procedures Name Priority Associated Diagnoses Date/Ti [...] brain Brain mass Unspecified condition of brain Glioblastoma (HCC)- Primary Malignant neoplasm of brain, unspecified site documented in this encounter Advance Directives Documents on File Type Date Recorded Patient Spring Coverer Expl anation Advance Directives and Living Will 02/25/2024 Candi Mulligan signed on 11/06/2023 ADVANCE DIRECTIVE / LIVING WILL COMBINED LIVING WILL & HEALTH CARE POWER OF SUPERVISOR MAINTENANCE POLST 12/03/2023 9:15 AM sign date 12/01/2023 [...] the patient have Health Care Power of Starch Mangle Tender? No * Full Code Date Activated Date [...] Care Agent (per Health Care Power of Starch Mangle Tender document) [email or web address] Care Teams Laser Engineer Relationship Specialty Start Date End Date Luz Maria Gama DO [address] [place] [address] PCP - General Family Medicine 01/04/23 documented as of this encounter
--- OUTSIDE RECORDS SUMMARY | 2024-05-06 15:33 | External Medical Summary | Summary of Care ---
Author Name Unknown Organization [facility] Address [address] [facility] [place] [address] Phone [phone] Care Team Providers Care Vascular Ultrasound Technologist Name Role Phone Luz Maria Gama Primary Care Provider Encounter Details Date Type Department Care Team (Late st Contact Info) Description 03/08/2024 2:00 PM EDT Telemedicine Palliative Medicine [facility] [address] [place] [address] Keisha Tompkins MD [address] [place] [address] Cancer related pain*; Glioblastoma (HCC); Palliative care encounter Allergies No known active allergiesdocumented as of this encounter (statuses as of 03/08/2024) Medications Medication Sig Dispensed Refills Start Date [...] suspected opioid overdose. Seek medical help immediately. [email or web address]://[email or web address] [email or web address].be [email or web address] 1 mL 3 11/18/2023 Active Naloxone HCl 4 MG/0.1ML Nasal Liquid (Narcan Nasal) Administer 1 spray into 1 nostril for suspected opioid overdose. Seek immediate medical attention. https://www.Mapbar.com/watch? v=[email or web address] 1 Each 3 11/18/2023 Active Omeprazole 40 [...] below 140/90,Ischemic cardiomyopathy,Aristeo nary artery disease involving upper mattaponi coronary artery of upper mattaponi heart without angina pectoris,Dyslipidem ia, goal LDL [...] Tablet before bedtime. 30 Tablet 03/08/2024 Active Morphine Sulfate ER 30 MG Oral Tablet Extended Release (Ms Contin)Indications: Cancer related pain Take 1 Tablet by mouth in the morning and 1 Tablet before bedtime. Continued script. 14 Tablet 03/03/2024 Discontinue d(Refill) documented as of this encounter (statuses as of 03/08/2024) Active Problems Problem Noted Date Diagnosed Date [...] as of this encounter (statuses as of 03/08/2024) Resolved Problems Problem Noted Date Diagnosed Date [...] as of this encounter (statuses as of 03/08/2024) Immunizations Name Administration Dates Next Due COVID-19 [...] this encounter Patient Instructions * Patient Instructions* Keisha Tompkins MD - 03/08/2024 2:20 PM EDT Our Palliative Medicine Clinic is [...] needed. You can contact our office at [phone], which is our clinic in [place], or you can message us on [email or web address]. If you have an emergency outside of these hours, we recommend calling your primary care clinic, Oncology office, or going to the ER if you have a medical emergency. documented in this encounter Progress Notes * Keisha Tompkins MD - 03/08/2024 2:00 PM EDT Palliative Medicine Outpatient Progress Note IN HOME TELEMEDICINE VISIT [facility] [address] [place] [address] Name: Remy Lujan Date: 03/08/2024 I was in a hospital or clinic location. After connecting through televideo, patient was verified with two unique identifiers. Patient (or authorized legal territory account representative) was then informed that this was a Telemedicine visit and being conducted confidentially over secure lines. Methods to assure confidentiality were taken. Patient acknowledged consent and understanding of privacy and security of the Telemedicine visit. The patient agreed to participate. HPI: Remy Lujan is a 58 year old male with glioblastoma seen in follow-up for goals of care and symptom management. At last visit, Started steroids on Wednesday which have helped a ot, he could hardly speak before, he was sleeping 20h/day. They were told the MRI showed a lot of edema. They recommended a 30 day regimen of steroids, slowly tapering it off. Next round of treatment will start soon. Will be taking a chemo pill and an IV infusion of a steroid every 2 weeks. Air conditioning is not working, but trying to get it fixed. Palliative symptoms: Pain: Worse last few days, right now having pain In AM gets pain, often wakes up with it. Using PRN MS IR 3-4x/day Nausea/Vomiting: no Constipation: regular Confusion: no, but has aphasia Sleep issues: no Dyspnea: no Mood issues: no Falls: no Appetite: good Other: Examination: No vital signs as this is a telemedicine encounter Constitutional: no acute distress, chronically ill HENT: normocephalic, atraumatic. Eyes: anicteric, sclera and conjunctiva normal. Neck: no stridor Chest: normal respiratory effort Abdominal: nondistended Extremities: no edema Data Review: External notes reviewed: - Reviewed notes from Edward Thomas, pt will be starting oral chemo soon - Reviewed notes from Dr Song on 03/06, he is going to start tx with Lomustine Lab / Imaging Results: Cr 1.1, normal, on 02/27 Information obtained from Candi for collateral history Discussion with other team members: I discussed patient with Dr Song Decision-making Capacity: Does Patient have Decisional Capacity? y Does Patient have a Healthcare Agent? Y, Advanced Care Planning (see ACP Tab): AD in EMR: y, see EMR POLST in EMR: yes, DNR LIMITED from 12/01/23 ASSESSMENT/PLAN: Remy Lujan is a 58 year old male seen in follow-up for goals of care and pain and symptom management. Gliobastoma Plan is to start treatment with oral chemo in near future and then Avastin and Optune device, will have a brain MRI in 3 mo Cancer related pain Will increase MS Contin to 60mg BID Continue MS IR 15mg q4h PRN I have reviewed the patients controlled substance dispensing history in the Prescription Drug Monitoring Program in compliance with the [facility] regulations before prescribing a controlled substance. Anxiety Continue Buspar Goals of care/Palliative care encounter Wants to continue cancer directed therapy If declines, would want to be comfortable Code status if admitted: DNR but ok w/LIMITED tx Follow up in 2 weeks, nurse call in 1-2 weeks. They are able to do video visits. Next visit with me/VALE. Keisha Tompkins MD [facility] Palliative Medicine [phone] documented in this encounter Plan of Treatment Upcoming Encounters Date Type Department Care Team (Late st Contact Info) Description 03/13/2024 3:45 PM EDT Pharmacy Pharmacy Hematology Oncology [facility] [address] [place] [address] [facility] Hem/Onc [address] [place] [address] 03/15/2024 9:15 AM EDT Scheduled Telephone Palliative Medicine, [address] 5th Floor [place] [address] [place], Nurse Palliative Medicine [facility] 5th [address] [facility] [address] 03/24/2024 10:00 AM EDT Telemedicine Palliative Medicine, [facility] [address] [facility] 5th [facility] [place] [address] Keisha Tompkins MD [address] [place] [address] 05/23/2024 4:00 PM EDT Imaging Radiology [facility] 1st [facility], [address] [place] [address] 06/19/2024 11:15 AM EDT Office Visit Neurosurgery, [place] [address] [place] [address] Clinic, Brain Tumor Multidisciplinary [address] [place] [address] 06/28/2024 9:50 AM EDT Office Visit [facility] [address] [place] [phone] Luz Maria Gama, [address] [place] [address] Scheduled Procedures Name Priority Associated Diagnoses Date/Ti [...] pain- Primary Neoplasm related pain (acute) (chronic) Glioblastoma (HCC) Malignant neoplasm of brain, unspecified site Palliative care encounter Encounter for palliative care documented in this encounter Advance Directives Documents on File Type Date Recorded Patient C Consultant Expl anation Advance Directives and Living Will 02/25/2024 Candi Mulligan signed on 11/06/2023 ADVANCE DIRECTIVE / LIVING WILL COMBINED LIVING WILL & HEALTH CARE POWER OF BUTCHER SCULLION POLST 12/03/2023 9:15 AM sign date 12/01/2023 [...] the patient have Health Care Power of Medical Device Assembler? No * Full Code Date Activated Date [...] Care Agent (per Health Care Power of Medical Device Assembler document) [email or web address] Care Teams Vascular Ultrasound Technologist Relationship Specialty Start Date End Date Luz Maria Gama DO [address] [place] [address] PCP - General Family Medicine 01/04/23 documented as of this encounter
--- OUTSIDE RECORDS SUMMARY | 2024-05-06 15:33 | External Medical Summary | Summary of Care ---
Author Name Unknown Organization [facility] Address [address] [place] [address] Phone [phone] Care Team Providers Care Foot Drill Operator Name Role Phone Luz Maria Gama Primary Care Provider Reason for Visit * Reason Onset Date Comments Precert Future 02/28/2024 Zirabev/Lomustin e Encounter Details Date Type Department Care Team (Late st Contact Info) Description 02/28/2024 Telephone Hematology/Oncology [facility] [place] [address] [place] [id number] Palak Cast MD [address] [place] [address] Precert Future (Zirabev/Lomustine) Allergies No [...] suspected opioid overdose. Seek medical help immediately. http://indoo.rsu.be /[email or web address] 1 mL 3 11/18/2023 Active Naloxone HCl 4 MG/0.1ML Nasal Liquid (Narcan Nasal) Administer 1 spray into 1 nostril for suspected opioid overdose. Seek immediate medical attention. https://www.Vivolux.com/watch? 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 Thank you! " Per [facility] note, this is being shipped 03/13. [...] received, plan built and routed. Awaiting authorization. [facility]- please see orders for Lomustine and create plan. Thank you. -Chemo Consent: Needs Completed -Chemo Education: Needs Scheduled -Port Placement: TBD -Standing Lab orders placed: CBCD,CMP,UA -Medications Pended: None -Hep B Labs: Completed 02/28/24 documented in this encounter Plan of Treatment Upcoming Encounters Date Type Department Care Team (Late st Contact Info) Description 03/13/2024 3:45 PM EDT Pharmacy Pharmacy Hematology Oncology [address] [address] [facility] [place] Hem/Onc [address] [place] [address] 03/15/2024 9:15 AM EDT Scheduled Telephone Palliative Medicine, [address] 5th [place] [address] [place], Nurse Palliative Medicine [address] [address] 03/22/2024 10:30 AM EDT Laboratory Laboratory [facility] [place] [address] [place] [address] [facility] [address] [place] [address] 03/22/2024 12:00 PM EDT Hem/Onc Treatment Hematology/Oncology Treatment, [place] [address] [place] [address] [place], Chair 1 Hem Onc Scenery [address] [place] [address] 03/24/2024 10:00 AM EDT Telemedicine Palliative Medicine, [facility] [address] [facility] 5th [place] [address] Keisha Tompkins MD [address] [place] [address] 05/23/2024 4:00 PM EDT Imaging Radiology [facility] [facility], [place] [address] [place] [address] 06/19/2024 11:15 AM EDT Office Visit Neurosurgery, [place] [address] [place] [address] Clinic, Brain Tumor Multidisciplinary [address] [place] [address] 06/28/2024 9:50 AM EDT Office Visit 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 No * Full Code Date Activated Date [...] Care Agent (per Health Care Power of Lining [employer] Sewer document) [email or web address] Care Teams Foot Drill Operator Relationship Specialty Start Date End Date Luz Maria Gama DO [address] [facility] [address] PCP - General Family Medicine 01/04/23 documented as of this encounter
--- OUTSIDE RECORDS SUMMARY | 2024-05-06 15:34 | External Medical Summary | Summary of Care ---
Author Name Unknown Organization [facility] Address [address] [place] [address] Phone [phone] Care Team Providers Care Fnp Name Role Phone VirginiaLuz Maria loja Tiffany LOUIE Primary Care Provider Reason for Referral * (Within 10 days (routine)) - Pending Review Specialty Diagnoses / Procedures Referred By Jerel jackson Referred To Contact Radiology Diagnoses Glioblastoma (HCC) Procedures MRI NEURO 3-D RECONSTRUCTION Louis Souza IV, PA-C [address] [place] [address] Referral ID Status Reason Start Date Expiration Date V isits Requested Visits Authorized [id number] Pending Review 05/30/2024 999 999 * Precert (Within 10 days (routine)) - Pending Review Specialty Diagnoses / Procedures Referred By Jerel jackson Referred To Contact Radiology Diagnoses Glioblastoma (HCC) Procedures MRI BRAIN W WO CONTRAST Louis Souza IV, PA-C [address] [place] [address] Referral ID Status Reason Start Date Expiration Date V isits Requested Visits Authorized [id number] Pending Review 05/30/2024 999 999 Reason for Visit * Reason Comments Return Neuro Encounter Details Date Type Department Care Team (Late st Contact Info) Description 02/28/2024 11:15 AM EDT Office Visit Neurosurgery, [place] [address] [place] [address] Clinic, Brain Tumor Multidisciplinary [address] [place] [address] Glioblastoma (HCC)* Allergies No known active allergiesdocumented as of this encounter (statuses as of 02/28/2024) Medications Medication Sig Dispensed Refills Start Date [...] below 140/90,Ischemic cardiomyopathy,Coron christiane artery disease involving iliamna coronary artery of iliamna heart without angina pectoris,Dyslipidemi a, goal LDL [...] opioid overdose. Seek medical help immediately. http://youtu.be/ [email or web address] 1 mL 3 11/18/2023 Active Naloxone HCl 4 MG/0.1ML Nasal Liquid (Narcan Nasal) Administer 1 spray into 1 nostril for suspected opioid overdose. Seek immediate medical attention. https://[email or web address]e.com/watch?v= [email or web address] 1 Each 3 11/18/2023 Active Ondansetron HCl 8 MG Oral Tablet (Zofran)Indications: Nausea Take 1 Tablet by mouth every 8 hours as needed for Nausea. 90 Tablet 1 12/22/2023 Active Omeprazole 40 MG Oral Capsule Delayed [...] 01/31/2024 Active Aspirin 81 MG Oral Tablet ChewableIndications: [...] 02/08/2024 Active Sennosides 8.6 MG Oral Tablet (Senokot)Indications [...] in the morning. 30 Capsule 02/28/2024 Active documented as of this encounter (statuses as of 02/28/2024) Active Problems Problem Noted Date Diagnosed Date S/P craniotomy 11/18/2023 Palliative care encounter 11/12/2023 Goals of care, counseling/discussion 11/12/2023 Cancer related pain 11/12/2023 Nonintractable headache 11/12/2023 Postoperative pain 11/12/2023 Decreased appetite 11/12/2023 Therapeutic opioid-induced constipation (OIC) Word finding difficulty 11/12/2023 Agitation 11/12/2023 Glioblastoma, IDH-wildtype 11/05/2023 Meniere disease, bilateral 05/19/2021 ALEKSANDR (obstructive [...] as of this encounter (statuses as of 02/28/2024) Resolved Problems Problem Noted Date Diagnosed Date [...] as of this encounter (statuses as of 02/28/2024) Immunizations Name Administration Dates Next Due COVID-19 [...] Sign Reading Time Taken Comments Blood Pressure 124/66 02/28/2024 11:00 AM EDT Pulse 80 02/28/2024 11:00 AM EDT Temperature 36.1 C (97 F) 02/28/2024 11:00 AM EDT Respiratory Rate - - Oxygen Saturation 99% 02/28/2024 11:00 AM EDT Inhaled Oxygen Concentration - - Weight - - Height - - Body Mass Index - - documented in this encounter Functional Status Functional [...] this encounter Patient Instructions * Patient Instructions* Yesenia Herrera LPN - 02/28/2024 11:21 AM EDT You were seen today by Dr. Ornelas (Neurosurgery), Dr. Downey (Radiation Oncology), and Dr. Cast (Neuro Oncology) History: GBM Imaging Review: We reviewed your most recent imaging. Treatment Plan: Chemotherapy and Optune Referrals placed: N/A Follow up with us in 3 months with repeat imaging. If you have any questions after today's visit, please contact our clinic at [phone]. You may ask to be connected to the Neuro Oncology team, or they will refer your message to us so we may respond in a timely manner. Thank you! documented in this encounter Progress Notes * Palak Cast MD - 02/28/2024 2:05 PM EDT Brain Tumor [facility]--Medical Oncology Note Name: Remy Lujan Date: 02/28/2024 Primary Care Provider: Luz Maria Gama DO DIAGNOSIS and Treatment History: Treatment Summary Glioblastoma, IDH-wildtype (HCC) 11/10/2023 Initial Diagnosis Glioblastoma, IDH-wildtype (HCC) 11/10/2023 Surgery L temporal resection by Dr. Ornelas 11/10/2023 Molecular Testing Results Final Diagnosis A. Left temporal tumor, biopsy: Glioblastoma, IDH-wild type, WHO grade 4 B. Left temporal tumor, biopsy: Glioblastoma, IDH-wild type, WHO grade 4 C. Left temporal tumor, Sonopet contents: Glioblastoma, IDH-wild type, WHO grade 4 Microscopic Description Microscopic examination shows an infiltrative hypercellular astrocytic tumor composed of cells withscant to moderate cytoplasm and round to angular hyperchromatic nuclei. Mitoses are present. There is necrosis with and without pseudopalisading. Immunostains show some of the tumor cells nuclei are positive for p53 and there is intact expression of ATRX. The Mib-1 labeling is high (15%). Amplified for EGFR gene status. MGMT detected ADDENDUM: Left temporal lobe Integrated diagnosis: Glioblastoma, IDH-wild, WHO grade 4 Histopathological classification: Glioblastoma TOE SEWER WHO grade: 4 Molecular information: EGFRvIII mutation, CDKN2A homozygous loss, CDKN2B copy number loss, CTNNB1 mutation (S33C), PTEN mutation (V175M), and EGFR gain (by NGS). MGMT gene promotor methylation detected (by PCR) EGFR amplified (by FISH); PRESENTING PROBLEM: Patient with glioblastoma follow-up HPI: Patient is here in clinic with his family. They report that he was doing quite well until about 2 weeks ago when he seems to have a change in status. He is sleeping more , speech has been quite worse. No imbalance no falls no focal motor deficits. ROS: pertinent positive/negative noted above. PAST MEDICAL HISTORY: Past Medical History: Diagnosis Date Bradycardia, sinus CAD (coronary artery disease) CxOM3 BMS 08/16/15 HTN, goal below 140/80 Hx of tobacco use, presenting hazards to health PAST SURGICAL HISTORY: Past Surgical History: Procedure Laterality Date COLONOSCOPY, DIAGNOSTIC (RECTUM) N/A 09/01/2016 normal biopsy/recall 10 years/COLONOSCOPY FLEXIBLE PROXIMAL DIAGNOSTIC performed by Dominik Herrera MD at OR [facility] CORONARY ANGIOGRAPHY W/LEFT HEART CATH Right 08/16/2015 CORONARY ANGIOGRAPHY W/LEFT HEART CATH performed by Joel Brambila MD at [facility] MICROSURGERY ADD-ON Left 11/10/2023 MICROSURGICAL SURGERY REQUIRING MICROSCOPE LISTED SEPARATELY performed by Matteo Ornelas III, MD at OR [place] REMOVE SUPRATENTORIAL BRAIN TUMOR Left 11/10/2023 CRANIOTOMY BONE FLAP EXCISION BRAIN TUMOR SUPRATENTORIAL performed by Matteo Ornelas III [facility] [place] REMOVE TONSILS & ADENOIDS, UNDER 12 STEREOTACTIC CRANIAL INTRADURAL NAVIGATION Left 11/10/2023 STEREOTACTIC CRANIAL INTRADURAL NAVIGATION performed by Matteo Ornelas III, MD at [facility] [place] SOCIAL HISTORY: Social History Tobacco Use Smoking status: Former Current packs/day: 0.00 Average packs/day: 1.5 packs/day for 15.0 years (22.5 ttl pk-yrs) Types: Cigarettes Start date: 08/16/2000 Quit date: 08/16/2015 Years since quittin.5 Passive exposure: Never Smokeless tobacco: Former Types: Snuff Tobacco comments: smokes cigar occas Vaping Use Vaping status: Never Used Substance Use Topics Alcohol use: Yes Comment: weekly Drug use: No FAMILY HISTORY: Family History Problem Relation Name Age of Onset Lung cancer Mother Stomach cancer Grandmother (Maternal) Current Outpatient Medications Medication Sig Dispense Refill dexAMETHasone 2 MG Oral Tablet (Decadron) Take 2 Tablets by mouth 2 times a day for 3 days, THEN 1 Tablet 2 times a day with morning and evening meals for 10 days, THEN 1 Tablet daily with breakfast for 10 days, THEN 1 Tablet every other day for 10 days. 47 Tablet 0 Omeprazole 20 MG Oral Capsule Delayed Release (PriLOSEC) Take 2 Capsules by mouth in the morning. 30 Capsule 0 nitroglycerin (NITROSTAT) 0.[address] 1 Tab under the tongue every 5 minutes as needed for Pain, Chest. 90 Tab 12 buPROPion HCl ER (SR) 150 MG Oral Tablet Extended Release 12 Hour (Wellbutrin SR) Take 1 tab by mouth twice per day 180 Tablet 1 Metoprolol Succinate ER 25 MG Oral Tablet Extended Release 24 Hour (toPROL XL) Take 1 Tablet by mouth in the morning. 90 Tablet 0 Lisinopril 20 MG Oral Tablet (Prinivil) Take 1 Tablet by mouth in the morning. 90 Tablet 3 CPAP every night at bedtime. Naloxone HCl 0.4 MG/ML Injection Solution (Narcan) Inject 1mL into a large muscle for suspected opioid overdose. Seek medical help immediately. [email or web address] 1 mL 3 Naloxone HCl 4 MG/0.1ML Nasal Liquid (Narcan Nasal) Administer 1 spray into 1 nostril for suspectedopioid overdose. Seek immediate medical attention. https://www.youtube.com/watch?v=[email or web address] 1 Each 3 Ondansetron HCl 8 MG Oral Tablet (Zofran) Take 1 Tablet by mouth every 8 hours as needed for Nausea. 90 Tablet 1 Omeprazole 40 MG Oral Capsule Delayed Release (PriLOSEC) Take 1 Capsule by mouth in the morning. dexAMETHasone 4 MG Oral Tablet (Decadron) Take 1 Tablet by mouth 2 times a day with morning and evening meals. Sulfamethoxazole-Trimethoprim 800-160 MG Oral Tablet (Bactrim DS) Every other day during radiation Doxycycline Monohydrate 50 MG Oral Capsule Take 1 capsule by mouth once daily 90 Capsule 1 levETIRAcetam 500 MG Oral Tablet (Keppra) Take 1 Tablet by mouth in the morning and 1 Tablet beforebedtime. 60 Tablet 2 busPIRone HCl 10 MG Oral Tablet (Buspar) Take 1 Tablet by mouth 2 times a day as needed for Agitation or Anxiety. 60 Tablet 2 Aspirin 81 MG Oral Tablet Chewable Take 1 Tablet by mouth in the morning. 30 Tablet 11 Morphine Sulfate ER 30 MG Oral Tablet Extended Release (Ms Contin) Take 1 Tablet by mouth in the morning and 1 Tablet before bedtime. Continued script. 60 Tablet 0 Morphine Sulfate 15 MG Oral Tablet (Msir) Take 1 Tablet by mouth every 4 hours as needed for Pain, Severe. Continued script 60 Tablet 0 Polyethylene Glycol 3350 17 GM Oral Packet (Miralax) Take 1 Packet by mouth in the morning. 30 Each0 Sennosides 8.6 MG Oral Tablet (Senokot) Take 2 Tablets by mouth at bedtime. 60 Tablet 0 No current facility-administered medications for this visit. ALLERGIES: Review of patient's allergies indicates: No Known Allergies PHYSICAL EXAMINATION: Vitals Reviewed as documented in the chart GEN: Sitting up comfortably in NAD HEENT: prev crani, well healed.No pallor, conjunctival injection, sclerae anicteric. No thrush Neck supple, no JVD, thryomegaly Chest: non labored breathing, symm expansion Extr: his extremities have a slightly mottled appearance to them. Per patient and his this is not new. On exam pulses are palpable it is warm to touch. No edema Neuro: AAOX3, expressive aphasia. Chronic hearing loss.Face Symmetric See detailed neuro exam from notes from same day Psych: appropriate mood and affect LABS: Reviewed as documented in the chart IMAGES: Personally reviewed and discussed in [facility] Mri brain 02/22/24:IMPRESSION Progressive disease with increase in solid enhancing tumor within the left parietal and temporal lobes with associated increased cerebral perfusion and progressive confluent hyperintense T2 FLAIR signal. 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 NGS--TMB low, MSI stable and EGFR amplified. [id number] B loss, PTEN and CTNNB1 mutations Meningioma( left frontal) Expr Aphasia Hearing Loss( Meniere's) Again reviewed diag, prognosis, madhu in v/o recent MRI. We discussed various options including best supportive care, further chemotherapy with or without optune Given edema++ and s/s, will start Dex and would use Zoie too. Reviewed role of further Rx Bevaciazumab +CCNU Consent obtained Will get labs today as well [facility], will send Rx He would like to get Rx @ [facility]--reached out to scheduling Start Dex for s/s mgt, schedule discussed and rx sent for Dex/PPI. Can start PJP ppx once labs backand meets with med onc at [facility] RTC in neuroMDC in 3mo with Brain MRI. Call sooner for change in s/s Patient Active Problem List Diagnosis Rosacea Former smoker Coronary artery disease without angina pectoris HTN, goal below 140/90 Dyslipidemia, goal LDL below 100 Adjustment disorder with depressed mood Ischemic cardiomyopathy Erythrocytosis Class 3 severe obesity due to excess calories with serious comorbidity and body mass index (BMI) of40.0 to 44.9 in adult (HCC) ALEKSANDR (obstructive sleep apnea) Meniere disease, bilateral Glioblastoma, IDH-wildtype (HCC) Palliative care encounter Goals of care, counseling/discussion Cancer related pain Nonintractable headache Postoperative pain Decreased appetite Therapeutic opioid-induced constipation (OIC) Word finding difficulty Agitation S/P craniotomy I spent over 50 mins on the date of service in the care of this patient including preparation, delivery and documentation of the care provided. Excluding any time spent in the performance of separately billed services. The patient was seen in multi-disciplinary clinic, I personally reviewed the relevant labs/medications/pathology and imaging studies and discussed and developed plan of care in co-ordination and withinput from other providers. Plan and recommendations were discussed with the pt and their family, all questions were answered and instructions for follow up provided. Palak Cast MD Department of Medical Oncology 02/28/2024 * Louis Souza IV, PA-C - 02/28/2024 11:35 AM EDT PROGRESS NOTE - Neurosurgery -- Brain Tumor [facility] [id number] Name: Remy Lujan Date: 11:38 AM Time: 9:31 AM Primary Care Provider: Luz Maria Gama DO PRESENTING PROBLEM: Post op, Glioblastoma Past NSGY Procedures: Dr. Ornelas 11/10/23 Left temporal craniotomy for tumor resection; use of brainlab stereotactic neuronavigation; use of the ultrasound with self interpretation; use of neurophysiological monitoring HPI: Remy Lujan is a 58 year old handed male who presents in tumor [facility] for postoperative follow-up.Patient underwent left temporal craniotomy as specified above. He presents today for follow up. Hisincision is well healed. His MRI shows evidence concerning for progression. He and his report that he has been sleeping much of the day for the past few weeks and his speech is progressively worse. No focal motor or sensory changes today. He denies any headaches or dung incisional tenderness. He states arms and legs are working well and he feels to be normal strength. Denies any new neurological symptoms. Treatment Summary Glioblastoma, IDH-wildtype (HCC) 11/10/2023 Initial Diagnosis Glioblastoma, IDH-wildtype (HCC) 11/10/2023 Surgery L temporal resection by Dr. Ornelas 11/10/2023 Molecular Testing Results Final Diagnosis A. Left temporal tumor, biopsy: Glioblastoma, IDH-wild type, WHO grade 4 B. Left temporal tumor, biopsy: Glioblastoma, IDH-wild type, WHO grade 4 C. Left temporal tumor, Sonopet contents: Glioblastoma, IDH-wild type, WHO grade 4 Microscopic Description Microscopic examination shows an infiltrative hypercellular astrocytic tumor composed of cells withscant to moderate cytoplasm and round to angular hyperchromatic nuclei. Mitoses are present. There is necrosis with and without pseudopalisading. Immunostains show some of the tumor cells nuclei are positive for p53 and there is intact expression of ATRX. The Mib-1 labeling is high (15%). Amplified for EGFR gene status. MGMT detected ADDENDUM: Left temporal lobe Integrated diagnosis: Glioblastoma, IDH-wild, WHO grade 4 Histopathological classification: Glioblastoma TOE SEWER WHO grade: 4 Molecular information: EGFRvIII mutation, CDKN2A homozygous loss, CDKN2B copy number loss, CTNNB1 mutation (S33C), PTEN mutation (V175M), and EGFR gain (by NGS). MGMT gene promotor methylation detected (by PCR) EGFR amplified (by FISH); PAST MEDICAL HISTORY: Past Medical History: Diagnosis Date Bradycardia, sinus CAD (coronary artery disease) CxOM3 BMS 08/16/15 HTN, goal below 140/80 Hx of tobacco use, presenting hazards to health PAST SURGICAL HISTORY: Past Surgical History: Procedure Laterality Date COLONOSCOPY, DIAGNOSTIC (RECTUM) N/A 09/01/2016 normal biopsy/recall 10 years/COLONOSCOPY FLEXIBLE PROXIMAL DIAGNOSTIC performed by Dominik Herrera MD at OR [facility] CORONARY ANGIOGRAPHY W/LEFT HEART CATH Right 08/16/2015 CORONARY ANGIOGRAPHY W/LEFT HEART CATH performed by Joel Brambila MD at [facility] [place] MICROSURGERY ADD-ON Left 11/10/2023 MICROSURGICAL SURGERY REQUIRING MICROSCOPE LISTED SEPARATELY performed by Matteo Ornelas III, MD at OR [place] REMOVE SUPRATENTORIAL BRAIN TUMOR Left 11/10/2023 CRANIOTOMY BONE FLAP EXCISION BRAIN TUMOR SUPRATENTORIAL performed by Matteo Ornelas III, [facility] [place] REMOVE TONSILS & ADENOIDS, UNDER 12 STEREOTACTIC CRANIAL INTRADURAL NAVIGATION Left 11/10/2023 STEREOTACTIC CRANIAL INTRADURAL NAVIGATION performed by Matteo Ornelas III, MD at [facility] SOCIAL HISTORY: Social History Socioeconomic History Marital status: Spouse name: Janeth Number of children: 2 Years of education: 14 Highest education level: Not on file Occupational History Occupation: [employer] Employer: [employer] Tobacco Use Smoking status: Former Current packs/day: 0.00 Average packs/day: 1.5 packs/day for 15.0 years (22.5 ttl pk-yrs) Types: Cigarettes Start date: 08/16/2000 Quit date: 08/16/2015 Years since quittin.5 Passive exposure: Never Smokeless tobacco: Former Types: [...] Social Determinants of Health Financial Resource Strain: Not on file Food Insecurity: Food Insecurity Present (02/01/2024) Hunger Vital Sign Worried About Running Out of Food in the Last Year: Sometimes true Ran Out of Food in the Last Year: Sometimes true Transportation Needs: Not on file Physical Activity: Not on file Stress: Not on file Social Connections: Not on file Intimate Partner Violence: Not on file Housing Stability: Not on file FAMILY HISTORY: Family History Problem Relation Name Age of Onset Lung cancer Mother Stomach cancer Grandmother (Maternal) Current Outpatient Medications Medication Sig Dispense Refill nitroglycerin (NITROSTAT) 0.[address] 1 Tab under the tongue every 5 minutes as needed for Pain, Chest. 90 Tab 12 buPROPion HCl ER (SR) 150 MG Oral Tablet Extended Release 12 Hour (Wellbutrin SR) Take 1 tab by mouth twice per day 180 Tablet 1 Metoprolol Succinate ER 25 MG Oral Tablet Extended Release 24 Hour (toPROL XL) Take 1 Tablet by mouth in the morning. 90 Tablet 0 Lisinopril 20 MG Oral Tablet (Prinivil) Take 1 Tablet by mouth in the morning. 90 Tablet 3 CPAP every night at bedtime. Naloxone HCl 0.4 MG/ML Injection Solution (Narcan) Inject 1mL into a large muscle for suspected opioid overdose. Seek medical help immediately. http://[employer].[email or web address] 1 mL 3 Naloxone HCl 4 MG/0.1ML Nasal Liquid (Narcan Nasal) Administer 1 spray into 1 nostril for suspectedopioid overdose. Seek immediate medical attention. https://www.youtube.com/watch?v=[email or web address] 1 Each 3 Ondansetron HCl 8 MG Oral Tablet (Zofran) Take 1 Tablet by mouth every 8 hours as needed for Nausea. 90 Tablet 1 Omeprazole 40 MG Oral Capsule Delayed Release (PriLOSEC) Take 1 Capsule by mouth in the morning. dexAMETHasone 4 MG Oral Tablet (Decadron) Take 1 Tablet by mouth 2 times a day with morning and evening meals. Sulfamethoxazole-Trimethoprim 800-160 MG Oral Tablet (Bactrim DS) Every other day during radiation Doxycycline Monohydrate 50 MG Oral Capsule Take 1 capsule by mouth once daily 90 Capsule 1 levETIRAcetam 500 MG Oral Tablet (Keppra) Take 1 Tablet by mouth in the morning and 1 Tablet beforebedtime. 60 Tablet 2 busPIRone HCl 10 MG Oral Tablet (Buspar) Take 1 Tablet by mouth 2 times a day as needed for Agitation or Anxiety. 60 Tablet 2 Aspirin 81 MG Oral Tablet Chewable Take 1 Tablet by mouth in the morning. 30 Tablet 11 Morphine Sulfate ER 30 MG Oral Tablet Extended Release (Ms Contin) Take 1 Tablet by mouth in the morning and 1 Tablet before bedtime. Continued script. 60 Tablet 0 Morphine Sulfate 15 MG Oral Tablet (Msir) Take 1 Tablet by mouth every 4 hours as needed for Pain, Severe. Continued script 60 Tablet 0 Polyethylene Glycol 3350 17 GM Oral Packet (Miralax) Take 1 Packet by mouth in the morning. 30 Each0 Sennosides 8.6 MG Oral Tablet (Senokot) Take 2 Tablets by mouth at bedtime. 60 Tablet 0 No current facility-administered medications for this visit. ALLERGIES: Review of patient's allergies indicates: No Known Allergies ROS: A full 14 point ROS was reviewed and are only positive for the above noted pertinent complaints PHYSICAL EXAMINATION: Visit Vital Signs: BP 124/66 | Pulse 80 | Temp 36.1 C (97 F) (Tympanic) | SpO2 99% KPS: 80 PERRL EOMI No facial droop MASTERS to command RUE 5/5 LUE 5/5 RLE 5/5 LLE 5/5 Sensation grossly intact No pronator drift Gen: Pt found sitting in chair; NAD Ext: Warm, dry and intact Psych: Pleasant and cooperative Neuro: AOx3 IMAGES: MRI 02/22/24 IMPRESSION Progressive disease with increase in solid enhancing tumor within the left parietal and temporal lobes with associated increased cerebral perfusion and progressive confluent hyperintense T2 FLAIR signal. IMPRESSION: Patient 58 year old male who presents in tumor [facility] for postoperative follow-up. Patient underwent left temporal craniotomy as specified above. He and his report that he has been sleeping much ofthe day for the past few weeks and his speech is progressively worse. Oncology to discuss chemotherapy medication with ccnu and avastin. We will follow up with us in 3 months with a new MRI. Patient Active Problem List Diagnosis Rosacea Former smoker Coronary artery disease without angina pectoris HTN, goal below 140/90 Dyslipidemia, goal LDL below 100 Adjustment disorder with depressed mood Ischemic cardiomyopathy Erythrocytosis Class 3 severe obesity due to excess calories with serious comorbidity and body mass index (BMI) of40.0 to 44.9 in adult (HCC) ALEKSANDR (obstructive sleep apnea) Meniere disease, bilateral Glioblastoma, IDH-wildtype (HCC) Palliative care encounter Goals of care, counseling/discussion Cancer related pain Nonintractable headache Postoperative pain Decreased appetite Therapeutic opioid-induced constipation (OIC) Word finding difficulty Agitation S/P craniotomy PLAN: Patient discussed for further chemotherapy per Dr. Cast No surgical intervention recommended at this time F/u in 3 months in tumor [facility] with repeat MRI Brain w and wo Further recommendations and plan per our neuro-oncology/radiation-oncology colleagues Patient seen by Dr. Ornelas at today's encounter Call NS clinic with any questions or concerns Louis Souza IV, PA-C 02/28/2024 11:36 AM * Matteo Ornelas III, MD - 02/28/2024 11:34 AM EDT NSGY Attending Attestation I have reviewed the advanced practitioner's documentation (Louis Souza PA-C) on the date of servicereferenced in note, and I agree with, and take responsibility for the plan of care. Remy presents for surveillance. He was doing reasonably well until a couple of weeks ago when he started sleeping much more, frankly most of the day, and his speech got dramatically worse. He has no focal motor or sensory changes today. He got a new MRI scan, which we reviewed. From our perspective there is notable progression of enhancing tumor and edema. There is no additional surgery I would recommend and Dr. Downey is not supportive of additional radiation given how recently he had XRT. We discussed his case and feel that CCNU plus avastin would be the next reasonable option if he is interested in treatment. If so, we could start this and have a plan for a 3 mo surveillance scan. Allquestions were answered. Thank you kindly for the opportunity to see him today. I spent a total of 30-39 minutes (exact time 37 mins) on the date of service in preparation, delivery, and documentation of the care provided to Remy Lujan excluding any time spent in the performance of separately billed services. Matteo Ornelas III, MD, PhD 02/28/2024 11:37 AM * Vipul Downey MD - 02/28/2024 11:15 AM EDT RADIATION ONCOLOGY FOLLOW-UP NOTE [facility] Remy Lujan [id number] 58 year old Remy Lujan was seen in follow-up in Radiation Oncology at [facility] on 02/28/2024. 58 year old male with a glioblastoma of the left temporoparietal junction, IDH- wt, s/p left temporal craniotomy for subtotal tumor resection 11/10/2023, s/p 60 Gy / 30 fx in [facility] ([facility]) with temozolomide completed 01/24/2024 INTERVAL HISTORY: 11/22/2023 Last seen by me (went to [facility] for RT) 02/22/2024 MRI brain: Progressive disease with increase in solid enhancing tumor within the left parietal and temporal lobes with associated increased cerebral perfusion and progressive confluent hyperintense T2 FLAIR signal. Medications were reviewed and updated. ZUBROD PERFORMANCE SCALE: 0 fully active, able to carry out all pre-disease activities without restriction PHYSICAL EXAMINATION: There were no vitals taken for this visit. Wt Readings from Last 4 Encounters: 12/01/23 (!) 143.4 kg (316 lb 1.6 oz) 11/18/23 (!) 145.4 kg (320 lb 9.6 oz) 11/04/23 (!) 145.4 kg (320 lb 8 oz) 10/25/23 (!) 146.2 kg (322 lb 6.4 oz) General: alert and oriented, no apparent distress, cognition normal, and speech normal RECENT LABS: Results for orders placed or performed during the hospital encounter of 11/05/23 CBC Result Value Ref Range WBC 12.61 (H) 4.00 - 10.80 K/uL RBC 4.42 4.50 - 5.25 M/uL HGB 13.9 (L) 14.0 - 16.8 g/dL HCT 41.2 40.0 - 48.4 % MCV 93.2 82.0 - 99.5 fL MCH 31.4 27.0 - 34.0 pg MCHC 33.7 32.0 - 36.0 g/dL RDW 12.7 11.5 - 15.5 % PLT 283 140 - 400 K/uL MPV 9.4 6.6 - 11.1 fL nRBCs 0 <=0 /100 WBCs Results for orders placed or performed during the hospital encounter of 11/05/23 CBC Result Value Ref Range WBC 12.61 (H) 4.00 - 10.80 K/uL RBC 4.42 4.50 - 5.25 M/uL HGB 13.9 (L) 14.0 - 16.8 g/dL HCT 41.2 40.0 - 48.4 % MCV 93.2 82.0 - 99.5 fL MCH 31.4 27.0 - 34.0 pg MCHC 33.7 32.0 - 36.0 g/dL RDW 12.7 11.5 - 15.5 % PLT 283 140 - 400 K/uL MPV 9.4 6.6 - 11.1 fL nRBCs 0 <=0 /100 WBCs Results for orders placed or performed in visit on 10/25/23 DIFFERENTIAL, AUTOMATED Result Value Ref Range WBC 5.57 4.00 - 10.80 K/uL Neutrophils % 58.6 40.0 - 75.0 % Lymphocytes % 27.3 18.0 - 42.0 % Monocytes % 8.4 1.0 - 11.0 % Eosinophils % 3.4 0.0 - 6.0 % Basophils % 1.4 0.0 - 2.0 % Immature Granulocytes % 0.9 0.0 - 2.0 % Absolute Neutrophils 3.26 1.80 - 7.70 K/uL Absolute Lymphocytes 1.52 1.00 - 4.80 K/ul Absolute Monocytes 0.47 0.00 - 1.10 K/uL Absolute Eosinophils 0.19 0.00 - 0.70 K/uL Absolute Basophils 0.08 0.00 - 0.20 K/uL Absolute Immature Granulocytes 0.05 0.00 - 0.20 K/uL Results for orders placed or performed in visit on 01/10/19 CBC/DIFF Result Value Ref Range WBC 7.76 4.00 - 10.80 K/uL RBC 5.09 4.50 - 5.25 M/uL HGB 15.7 14.0 - 16.8 g/dL HCT 46.4 40.0 - 48.4 % MCV 91.2 82.0 - 99.5 fL MCH 30.8 27.0 - 34.0 pg MCHC 33.8 32.0 - 36.0 g/dL RDW 12.9 11.5 - 15.5 % PLT 255 140 - 400 K/uL MPV 11.3 (H) 6.6 - 11.1 fL Neutrophils % 51.6 40 - 75 % Lymphocytes % 32.2 18 - 42 % Monocytes % 9.7 1 - 11 % Eosinophils % 4.4 0 - 6 % Basophils % 1.5 0 - 2 % IMMATURE GRANULOCYTE 0.6 0 - 2 % Absolute Neutrophils 4.00 1.8 - 7.7 K/uL Absolute Lymphocytes 2.50 1.0 - 4.8 K/uL Absolute Monocytes 0.75 0.0 - 1.1 K/uL Absolute Eosinophils 0.34 0.0 - 0.7 K/uL Absolute Basophils 0.12 0.0 - 0.2 K/uL Absolute Immature Granulocytes 0.05 0.0 - 0.2 K/uL Results for orders placed or performed during the hospital encounter of 11/05/23 COMPREHENSIVE METABOLIC PANEL Result Value Ref Range BUN 18 6 - 20 mg/dL Creatinine 1.1 0.6 - 1.2 mg/dL Estimated Glomerular Filtration Rate 80 >=60 mL/min Sodium 137 135 - 146 mmol/L Potassium 3.9 3.5 - 5.1 mmol/L Chloride 102 98 - 107 mmol/L CO2 24 22 - 32 mmol/L Anion Gap 11 7 - 15 mmol/L Glucose 127 (H) 70 - 120 mg/dL Albumin 3.9 3.8 - 5.0 g/dL AST 22 10 - 50 U/L Alkaline Phosphatase 80 35 - 130 U/L Bilirubin, Total 0.2 <=1.2 mg/dL Calcium 9.0 8.4 - 10.2 mg/dL Protein 6.4 6.0 - 8.3 g/dL ALT 30 10 - 50 U/L ASSESSMENT: 02/28/2024 TOE SEWER MDC recommendation: CCNU/Avastin/Optune; f/u in 3 months with MRI brain in three months PLAN: F/u as arranged Follow-up with other physicians is as already scheduled. 03/31/2024 Neurology (Micaela) 06/28/2024 Fam Prac (Lanette) The patient will contact us in the meantime with questions or concerns. Thank you for having asked us to take part in this patient's care. I spent 20 minutes on this patients care on the date of service. Vipul Downey MD 02/28/2024 documented in this encounter Miscellaneous Notes * Addendum Note - Palak Cast MD - 02/28/2024 3:16 PM EDTAddended by: PALAK CAST on: 02/28/2024 03:16 PM Modules accepted: Orders documented in this encounter Plan of Treatment Upcoming Encounters Date Type Department Care Team (Late st Contact Info) Description 02/29/2024 12:15 PM EDT Office Visit Hematology/Oncology [facility] [address] [place] [phone] Shay Song MD [address] [place] [address] 03/31/2024 9:00 AM EDT Office Visit Neurology [facility] [address] [place] [address] Mariama Hinojosa, DO [address] [place] [address] 06/19/2024 11:15 AM EDT Office Visit Neurosurgery, [place] [address] [place] [address] Clinic, Brain Tumor Multidisciplinary [address], [place] [id number] 06/28/2024 9:50 AM EDT Office Visit [facility] [address] [place] [phone] Luz Maria Gama, [address], [place] [id number] Scheduled Orders Name Type Priority Associated Diagnoses Order Schedule MRI BRAIN W WO CONTRAST Medical Imaging Routine Glioblastoma (HCC) Expected: 05/30/2024, Expires: 03/29/2025 MRI NEURO 3-D RECONSTRUCTION Medical Imaging Routine Glioblastoma (HCC) Expected: 05/30/2024, Expires: 03/29/2025 Scheduled Procedures Name Priority Associated Diagnoses Date/Ti [...] Procedure Name Priority Date/Time Associated Diagnosis Comments HEPATITIS C RNA ADD ON STAT 12:16 PM EDT Glioblastoma (HCC) DIFFERENTIAL, AUTOMATED STAT 02/28/2024 12:16 PM EDT Glioblastoma (HCC) HEPATITIS B SURFACE ANTIBODY STAT 02/28/2024 12:16 PM EDT Glioblastoma (HCC) HEPATITIS C ANTIBODY SCREEN WITH PROGRESSION TO HEPATITIS C RNA QUANTITATIVE STAT 02/28/2024 12:16 PM EDT Glioblastoma (HCC) COMPREHENSIVE METABOLIC PANEL STAT 02/28/2024 12:16 PM EDT Glioblastoma (HCC) HEPATITIS C ANTIBODY STAT 02/28/2024 12:16 PM EDT Glioblastoma (HCC) HEPATITIS B CORE ANTIBODIES IGG AND IGM STAT 02/28/2024 12:16 PM EDT Glioblastoma (HCC) HEPATITIS B SURFACE ANTIGEN STAT 02/28/2024 12:16 PM EDT Glioblastoma (HCC) CBC STAT 02/28/2024 12:16 PM EDT Glioblastoma (HCC) CBC STAT 02/28/2024 12:16 PM EDT Glioblastoma (HCC) documented in this encounter Results * HEPATITIS C RNA ADD ON (02/28/2024 12:16 PM EDT) Blood Venous blood specimen / Unknown Venipuncture / Unknown 02/28/2024 12:16 PM EDT 02/28/2024 12:34 PM EDT Palak Cast MD LAB BLOOD ORDERABLES [facility] [address] [place] [address] * HEPATITIS C ANTIBODY (02/28/2024 12:16 PM EDT) Hepatitis C Antibody Negative Negative 02/28/2024 1:54 PM EDT [facility] Comment:Further HCV quantita tive testing not performed per protocol. Blood Venous blood specimen / Unknown Venipuncture / Unknown 02/28/2024 12:16 PM EDT 02/28/2024 12:57 PM EDT Palak Cast MD LAB BLOOD ORDERABLES [facility] [address] [place] [address] * DIFFERENTIAL, AUTOMATED (02/28/2024 12:16 PM EDT) WBC 5.74 4.00 - 10.80 K/uL 02/28/2024 1:26 PM EDT [facility] Neutrophils % 66.9 40.0 - 75.0 % 02/28/2024 1:26 PM EDT [facility] Lymphocytes % 19.9 18.0 - 42.0 % 02/28/2024 1:26 PM EDT [facility] Monocytes % 10.3 1.0 - 11.0 % 02/28/2024 1:26 PM EDT [facility] Eosinophils % 1.0 0.0 - 6.0 % 02/28/2024 1:26 PM EDT [facility] Basophils % 0.9 0.0 - 2.0 % 02/28/2024 1:26 PM EDT [facility] Immature Granulocytes % 1.0 0.0 - 2.0 % 02/28/2024 1:26 PM EDT [facility] Absolute Neutrophils 3.84 1.80 - 7.70 K/uL 02/28/2024 1:26 PM EDT [facility] Absolute Lymphocytes 1.14 1.00 - 4.80 K/ul 02/28/2024 1:26 PM EDT [facility] Absolute Monocytes 0.59 0.00 - 1.10 K/uL 02/28/2024 1:26 PM EDT [facility] Absolute Eosinophils 0.06 0.00 - 0.70 K/uL 02/28/2024 1:26 PM EDT [facility] Absolute Basophils 0.05 0.00 - 0.20 K/uL 02/28/2024 1:26 PM EDT [facility] Absolute Immature Granulocytes 0.06 0.00 - 0.20 K/uL 02/28/2024 1:26 PM EDT [facility] Blood Venous blood specimen / Unknown Venipuncture / Unknown 02/28/2024 12:16 PM EDT 02/28/2024 12:57 PM EDT Palak Cast MD LAB BLOOD ORDERABLES [facility] [address] [place] [address] * (ABNORMAL) CBC (02/28/2024 12:16 PM EDT) Pathologist [facility] WBC 5.74 4.00 - 10.80 K/uL 02/28/2024 1:26 PM EDT [facility] RBC 4.19 4.50 - 5.25 M/uL 02/28/2024 1:26 PM EDT [facility] HGB 12.9(L) 14.0 - 16.8 g/dL 02/28/2024 1:26 PM EDT [facility] HCT 38.5(L) 40.0 - 48.4 % 02/28/2024 1:26 PM EDT [facility] MCV 91.9 82.0 - 99.5 fL 02/28/2024 1:26 PM EDT [facility] MCH 30.8 27.0 - 34.0 pg 02/28/2024 1:26 PM EDT [facility] MCHC 33.5 32.0 - 36.0 g/dL 02/28/2024 1:26 PM EDT [facility] RDW 13.8 11.5 - 15.5 % 02/28/2024 1:26 PM EDT [facility] PLT 292 140 - 400 K/uL 02/28/2024 1:26 PM EDT [facility] MPV 10.1 6.6 - 11.1 fL 02/28/2024 1:26 PM EDT [facility] nRBCs 0 <=0 /100 WBCs 02/28/2024 1:26 PM EDT [facility] Blood Venous blood specimen / Unknown Venipuncture / Unknown 02/28/2024 12:16 PM EDT 02/28/2024 12:57 PM EDT Palak Cast MD LAB BLOOD ORDERABLES Performing Organization Address City/[facility]/ZIP Co de Phone Number [facility] [address] [place] [address] * HEPATITIS B CORE ANTIBODIES IGG AND IGM (02/28/2024 12:16 PM EDT) Hepatitis B Core Antibodies IgG and IgM Negative Negative 02/28/2024 1:54 PM EDT [facility] Blood Venous blood specimen / Unknown Venipuncture / Unknown 02/28/2024 12:16 PM EDT 02/28/2024 12:57 PM EDT Palak Cast MD LAB BLOOD ORDERABLES Performing Organization Address [facility] Co de Phone Number [facility] [address] [place] [address] * HEPATITIS B SURFACE ANTIGEN (02/28/2024 12:16 PM EDT) Hepatitis B Surface Antigen Negative Negative 02/28/2024 1:54 PM EDT [facility] Blood Venous blood specimen / Unknown Venipuncture / Unknown 02/28/2024 12:16 PM EDT 02/28/2024 12:57 PM EDT Palak Cast MD LAB BLOOD ORDERABLES Performing Organization Address City/[facility] Co de Phone Number [facility] [address] [place] [address] * HEPATITIS B SURFACE ANTIBODY (02/28/2024 12:16 PM EDT) Hepatitis B Surface Antibody, Quantitative <3.5 mIU/mL 02/28/2024 1:54 PM EDT [facility] Hepatitis B Surface Antibody, Qualitative Negative 02/28/2024 1:54 PM EDT [facility] Hepatitis B Surface Antibody, Interpretation NOT immune to Hepatitis B Virus 02/28/2024 1:54 PM EDT [facility] Comment: POSITIVE: >=11.5 mIU/mL INDETERMINATE: 8.5-<11.5 mIU/mL NEGATIVE: <8.5 mIU/mL Blood Venous blood specimen / Unknown Venipuncture / Unknown 02/28/2024 12:16 PM EDT 02/28/2024 12:57 PM EDT Palak Cast MD LAB BLOOD ORDERABLES [facility] [address] [place] [address] * COMPREHENSIVE METABOLIC PANEL (02/28/2024 12:16 PM EDT) BUN 10 6 - 20 mg/dL 02/28/2024 1:27 PM EDT [facility] Creatinine 1.1 0.6 - 1.2 mg/dL 02/28/2024 1:27 PM EDT [facility] Estimated Glomerular Filtration Rate 76 >=60 mL/min 02/28/2024 1:27 PM EDT [facility] Comment:eGFR is calculated b ased on the CKD-EPI 2020 equation Sodium 138 135 - 146 mmol/L 02/28/2024 1:27 PM EDT [facility] Potassium 3.8 3.5 - 5.1 mmol/L 02/28/2024 1:27 PM EDT [facility] Chloride 102 98 - 107 mmol/L 02/28/2024 1:27 PM EDT [facility] CO2 25 22 - 32 mmol/L 02/28/2024 1:27 PM EDT [facility] Anion Gap 11 7 - 15 mmol/L 02/28/2024 1:27 PM EDT [facility] Glucose 111 70 - 120 mg/dL 02/28/2024 1:27 PM EDT [facility] Albumin 4.3 3.8 - 5.0 g/dL 02/28/2024 1:27 PM EDT [facility] AST 33 10 - 50 U/L 02/28/2024 1:27 PM EDT [facility] Alkaline Phosphatase 88 35 - 130 U/L 02/28/2024 1:27 PM EDT [facility] Bilirubin, Total 0.5 <=1.2 mg/dL 02/28/2024 1:27 PM EDT [facility] Calcium 10.0 8.4 - 10.2 mg/dL 02/28/2024 1:27 PM EDT [facility] Protein 6.8 6.0 - 8.3 g/dL 02/28/2024 1:27 PM EDT [facility] ALT 46 10 - 50 U/L 02/28/2024 1:27 PM EDT [facility] Blood Venous blood specimen / Unknown Venipuncture / Unknown 02/28/2024 12:16 PM EDT 02/28/2024 12:57 PM EDT Palak Cast MD LAB BLOOD ORDERABLES [facility] [address] [place] [address] documented in this encounter Visit Diagnoses Diagnosis Glioblastoma (HCC)- Primary Malignant neoplasm of brain, unspecified site documented in this encounter Advance Directives Documents on File Type Date Recorded Patient Vice Chair Expl anation Advance Directives and Living Will 02/25/2024 Candi Mulligan signed on 11/06/2023 ADVANCE DIRECTIVE / LIVING WILL COMBINED LIVING WILL & HEALTH CARE POWER OF ELECTRIC FRYING PAN REPAIRER POLST 12/03/2023 9:15 AM sign date [...] the patient have Health Care Power of Control And Recovery Special Tactics? No * Full Code Date Activated Date [...] Care Agent (per Health Care Power of Control And Recovery Special Tactics document) Care Teams Fnp Relationship Specialty Start Date End Date Luz Maria Gama DO [address] [id number] PCP - General Family Medicine 01/04/23 documented as of this encounter"
--- OUTSIDE RECORDS SUMMARY | 2024-05-06 15:34 | External Medical Summary | Summary of Care ---
Author Name Unknown Organization [facility] Address [address] [place] [address] Phone [phone] Care Team Providers Care Reference Services Head Name Role Phone Luz Maria Gama Primary Care Provider Reason for Visit * Reason Onset Date Comments Precert Future 02/28/2024 Zirabev/Lomustin e Encounter Details Date Type Department Care Team (Late st Contact Info) Description 02/28/2024 Telephone Hematology/Oncology [facility] [address] [place] [facility] [place] [phone] Palak Cast MD [address] [place] [address] Precert Future (Zirabev/Lomustine) Allergies No [...] below 140/90,Ischemic cardiomyopathy,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 Seek medical help immediately. http://Myandb.be/ [email or web address] 1 mL 3 11/18/2023 Active Naloxone HCl 4 MG/0.1ML Nasal Liquid (Narcan Nasal) Administer 1 spray into 1 nostril for suspected opioid overdose. Seek immediate medical attention. [email or web address]://[email or web address]/watch?v= [email or web address] 1 Each 3 11/18/2023 Active Ondansetron HCl [...] encounter Miscellaneous Notes * Telephone Encounter - Bobby Garcia RN - 02/28/2024 4:06 PM EDT Orders received, plan built and routed. Awaiting authorization. [facility]- please see orders for Lomustine and create plan. Thank you. -Chemo Consent: Needs Completed -Chemo Education: Needs Scheduled -Port Placement: TBD -Standing Lab orders placed: CBCD,CMP,UA -Medications Pended: None -Hep B Labs: Completed 02/28/24 documented in this encounter Plan of Treatment Upcoming Encounters Date Type Department Care Team (Late st Contact Info) Description 02/29/2024 12:15 PM EDT Office Visit Hematology/Oncology [facility] [address] [facility] [place] [phone] Shay Song MD [address] [facility] [place] [address] 02/29/2024 1:00 PM EDT Pharmacy Pharmacy Hematology Oncology [facility] [address] [place] [address] [facility] Clinic Hem/Onc [address] [place] [address] 03/31/2024 9:00 AM EDT Office Visit Neurology [facility] [address] [facility] [place] [address] Mariama Hinojosa [address] [place] [address] 06/19/2024 11:15 AM EDT Office Visit Neurosurgery, [place] [address] [place] [address] Clinic, Brain Tumor Multidisciplinary [address] [place] [address] 06/28/2024 9:50 AM EDT Office Visit [address] [phone] Luz Maria Gama, [place] [address] Scheduled Orders Name Type Priority Associated Diagnoses [...] Documents on File Type Date Recorded Patient Credit Controller Expl anation Advance Directives and Living Will 02/25/2024 Candi Mulligan signed on 11/06/2023 ADVANCE DIRECTIVE / LIVING WILL COMBINED LIVING WILL & HEALTH CARE POWER OF DIE TECHNICIAN POLST 12/03/2023 9:15 AM sign date 12/01/2023 [...] the patient have Health Care Power of Groundwater Programs Director? No * Full Code Date Activated [...] Care Agent (per Health Care Power of Groundwater Programs Director document) [email or web address] Care Teams Reference Services Head Relationship Specialty Start Date End Date Luz Maria Gama DO [address] [place] [address] PCP - General Family Medicine 01/04/23 documented as of this encounter
--- OUTSIDE RECORDS SUMMARY | 2024-05-06 15:34 | External Medical Summary | Summary of Care ---
Author Name Unknown Organization [facility] Address [address] [place] [address] Phone [phone] Care Team Providers Care Flux Tube Attendant Name Role Phone Luz Maria Gama Primary Care Provider Reason for Visit * Reason Onset Date Comments Precert Future 02/28/2024 Zirabev/Lomustin e Encounter Details Date Type Department Care Team (Late st Contact Info) Description 02/28/2024 Telephone Hematology/Oncology [facility] [address] [place] [place] [address] Palak Cast MD [address] [place] [address] Precert Future (Zirabev/Lomustine) Allergies No [...] below 140/90,Ischemic cardiomyopathy,Coron christiane artery disease involving citizen potawatomi coronary artery of citizen potawatomi heart without angina pectoris,Dyslipidemi a, goal LDL [...] suspected opioid overdose. Seek medical help immediately. http://Azendoo.be/ [email or web address] 1 mL 3 11/18/2023 Active Naloxone HCl 4 MG/0.1ML Nasal Liquid (Narcan Nasal) Administer 1 spray into 1 nostril for suspected opioid overdose. Seek immediate medical attention. [email or web address]://[email or web address]/watch?v= [email or web address] 1 Each 3 11/18/2023 Active Ondansetron HCl [...] received, plan built and routed. Awaiting authorization. [facility]- please see orders for Lomustine and create plan. Thank you. -Chemo Consent: Needs Completed -Chemo Education: Needs Scheduled -Port Placement: TBD -Standing Lab orders placed: CBCD,CMP,UA -Medications Pended: None -Hep B Labs: Completed 02/28/24 documented in this encounter Plan of Treatment Upcoming Encounters Date Type Department Care Team (Late st Contact Info) Description 03/03/2024 1:30 PM EDT Pharmacy Pharmacy Hematology Oncology [facility] [address] [place] [address] [facility] Clinic Hem/Onc [address] [place] [address] 03/08/2024 2:00 PM EDT Telemedicine Palliative Medicine [facility] [address] [place] [address] Keisha Tompkins MD [address] [place] [address] 05/23/2024 4:00 PM EDT Imaging Radiology [facility] [address] [facility] [place] [address] [facility] [place] [address] 06/19/2024 11:15 AM EDT Office Visit Neurosurgery, [place] [address] [place] [address] Clinic, Brain Tumor Multidisciplinary [address] [place] [address] 06/28/2024 9:50 AM EDT Office Visit [facility] [address] [place] [phone] Luz Maria Gama, [address] [place] [address] Scheduled Orders Name Type Priority Associated Diagnoses [...] Documents on File Type Date Recorded Patient Steam Trap Worker Expl anation Advance Directives and Living Will 02/25/2024 Candi Mulligan signed on 11/06/2023 ADVANCE DIRECTIVE / LIVING WILL COMBINED LIVING WILL & HEALTH CARE POWER OF SUPERVISOR CONTINGENTS POLST 12/03/2023 9:15 AM sign date 12/01/2023 [...] the patient have Health Care Power of Sponge Diver? No * Full Code Date Activated Date [...] Care Agent (per Health Care Power of Sponge Diver document) [email or web address] Care Teams Flux Tube Attendant Relationship Specialty Start Date End Date Luz Maria Gama DO [address] [place] [address] PCP - General Family Medicine 01/04/23 documented as of this encounter
--- OUTSIDE RECORDS SUMMARY | 2024-05-06 15:34 | External Medical Summary | Summary of Care ---
Author Name Unknown Organization [facility] Address [address] [place] [address] Phone [phone] Care Team Providers Care Catalogue And Special Products Manager Name Role Phone Luz Maria Gama Primary Care Provider Reason for Referral * Evaluate & Treat - Unlimited Visits (Within 10 days (routine)) - Pending Review Specialty Diagnoses / Procedures Referred By Jerel jackson Referred To Contact Pharmacist / Pharmacy Diagnoses Glioblastoma (HCC) Martha Rivera, [facility] [address] [place] [address] Referral ID Status Reason Start Date Expiration Date Visits Requested Visits Authorized [id number] Pending Review Specialty Services Required 03/03/2024 99 99 Question Answer Referral Priority Within 10 days (routine) Where should this appointment be scheduled? [facility] Referring Provider Role: Specialist Specialty: Heme/Onc Reason for Referral: Oral Chemo Has consent been obtained for new oral chemo agent(s)? Yes - 02/29/24 Comments ORAL CHEMOTHERAPY MTDM MONITORING REFERRAL This patient is being referred to the Oral Chemotherapy Clinic for medication co-management. The planned duration of treatment is: Until disease progression/toxicity Please start oral chemotherapy: Once therapy has arrived from specialty pharmacy Oral Chemotherapy Monitoring will continue until one of the following discharge criteria has been met. The provider will be informed if any of these occur. 1. Disease progression. 2. Patient non-compliance 3. Compliance and tolerating treatment well without major toxicities with routine provider follow up. 4. Completion of therapy. Additional Comments: By my signature, I understand that my patient will have their medication therapy managed by the [facility] ([facility] per established policies, procedures, and protocols. I also certify that this referral may serve as an initiation of service for the management of drug therapy in the above noted patient. [facility] providers will be responsible for scheduling patient visits, obtaining appropriate laboratory studies, and adjusting medication management therapy per patient's need, in addition to those roles spelled out in the clinic policy, procedures, and drug management protocols. I understand that the service provided by the [facility] is voluntary and have informed patient that they can refuse the service at their discretion. I am aware that the [facility] will provide me with a copy of the patient encounter via my Balls.ie InDiavibe. I authorize the [facility] to carry out these activities on my behalf. I consider this program to be a necessary part of the patient's medical care. Encounter Details Date Type Department Care Team (Late st Contact Info) Description 03/03/2024 Orders Only Hematology/Oncology [facility] [address] [place] [id number] Shay Song MD [address] [place] [address] Glioblastoma (HCC)* Allergies No known active allergiesdocumented [...] below 140/90,Ischemic cardiomyopathy,Aristeo nary artery disease involving [place] coronary artery of [place] heart without angina pectoris,Dyslipidem ia, goal LDL [...] suspected opioid overdose. Seek medical help immediately. http://[email or web address].be [email or web address] 1 mL 3 11/18/2023 Active Naloxone HCl 4 MG/0.1ML Nasal Liquid (Narcan Nasal) Administer 1 spray into 1 nostril for suspected opioid overdose. Seek immediate medical attention. https://www.PxRadia.com/watch? v=[email or web address] 1 Each 3 11/18/2023 Active Omeprazole 40 [...] stomach at bedtime 4 Capsule 03/03/2024 Active Ondansetron HCl 8 MG Oral Tablet [...] EDT Pharmacy Pharmacy Hematology Oncology [facility] [place] [address] [place] [address] [facility]c [address] [place] [address] 03/08/2024 2:00 PM EDT Telemedicine Palliative Medicine [facility] [address] [place] [address] Keisha Tompkins MD [address] [place] [address] 05/23/2024 4:00 PM EDT Imaging Radiology [address] [place] [address] 06/19/2024 11:15 AM EDT Office Visit Neurosurgery, [place] [address] [place] [address] Clinic, Brain Tumor Multidisciplinary [address] [place] [address] 06/28/2024 9:50 AM EDT Office Visit [facility] [address] [place] [phone] Luz Maria Gama DO [address] [place] [address] Scheduled Orders Name Type Priority Associated Diagnoses Orde r Schedule CBC WITH WBC DIFFERENTIAL Lab Routine Glioblastoma (HCC) Other, Please specify in Comments field for 42 Occurrences starting 03/03/2024 until 03/03/2025 COMPREHENSIVE METABOLIC PANEL Lab Routine Glioblastoma (HCC) Every Month for 42 Occurrences starting 03/03/2024 until 03/03/2025 Scheduled Procedures Name Priority Associated Diagnoses Date/Ti [...] Documents on File Type Date Recorded Patient Still Cleaner Tube Expl anation Advance Directives and Living Will 02/25/2024 Candi Mulligan signed on 11/06/2023 ADVANCE DIRECTIVE / LIVING WILL COMBINED LIVING WILL & HEALTH CARE POWER OF ADMINISTRATIVE VOLUNTEER POL 12/03/2023 9:15 AM sign date 12/01/2023 Advance [...] the patient have Health Care Power of Plant And Instrument Engineer? No * Full Code Date Activated [...] Care Agent (per Health Care Power of Plant And Instrument Engineer document) [email or web address] Care Teams Catalogue And Special Products Manager Relationship Specialty Start Date End Date Luz Maria Gama DO [address] [place] [address] PCP - General Family Medicine 01/04/23 documented as of this encounter
--- OUTSIDE RECORDS SUMMARY | 2024-05-06 15:34 | External Medical Summary | Summary of Care ---
Author Name Unknown Organization [facility] Address [address] [place] [address] Phone [phone] Care Team Providers Care International Affairs Vice President Name Role Phone Luz Maria Gama Primary Care Provider Reason for Visit * Reason Comments Medication Management Encounter Details Date Type Department Care Team (Late st Contact Info) Description 02/29/2024 1:00 PM EDT Pharmacy Pharmacy Hematology Oncology [facility] [address] [place] [address] [facility] Hem/Onc [address] [place], [place] [id number] Glioblastoma (HCC)* Allergies No known active allergiesdocumented as of this encounter (statuses as of 03/01/2024) Medications Medication Sig Dispensed Refills Start Date [...] below 140/90,Ischemic cardiomyopathy,Coron christiane artery disease involving [place] coronary artery of [place] heart without angina pectoris,Dyslipidemi a, goal LDL [...] suspected opioid overdose. Seek medical help immediately. [email or web address] [email or web address] [email or web address].[email or web address] 1 mL 3 11/18/2023 Active Naloxone HCl 4 MG/0.1ML Nasal Liquid (Narcan Nasal) Administer 1 spray into 1 nostril for suspected opioid overdose. Seek immediate medical attention. https://www.Diagnostic Innovations.com/watch?v= l69hVhs6ZgP 1 Each 3 11/18/2023 Active Ondansetron HCl [...] as of this encounter (statuses as of 03/01/2024) Active Problems Problem Noted Date Diagnosed Date [...] as of this encounter (statuses as of 03/01/2024) Resolved Problems Problem Noted Date Diagnosed Date [...] as of this encounter (statuses as of 03/01/2024) Immunizations Name Administration Dates Next Due COVID-19 [...] this encounter Progress Notes * Martha Rivera, [facility] - 02/29/2024 4:16 PM EDT MEDICATION THERAPY MANAGEMENT LOMUSTINE INITIAL INTAKE NOTE Remy Lujan [phone] Patient Phone Numbers Communication: Chart review Treatment: [...] stomach at bedtime Start Date: TBD Primary Mounter Automatic/Oncologist: Dr. Shya Song Additional Therapy: Bevacizumab Supportive Care Meds: Ondansetron Docusate Miralax Senna Prophylactic Meds: Consider PJP ppx for ALC < 0.5 - patient was on Bactrim previously Relevant Chronic Medications: Category Medications Pertinent Notes Antihypertensives Lisinopril Metoprolol Anticoagulation Aspirin Cycle Dates C1 TBD C2 TBD Review of therapy: Line of therapy: Second Previous therapy: Resection 11/10/23 TMZ+RT completed 01/24/24 Reviewed dosage prescribed for appropriateness (based on indication, hepatic function,renal function, etc): yes, there are changes Discussing dosing with Dr. Song and if BELOB trial dosing should be followed for combination therapy of lomustine and bevacizumab Are appropriate supportive care medications prescribed? No, ondansetron and docusate to be prescribed via [place] plan Are appropriate prophylactic medications prescribed? No, ondansetron and docusate to be prescribed via [place] plan Have baseline labs/tests been obtained? Yes Has hepatitis B screening been completed? Yes Potential drug-drug drug-herbal, drug-food, drug-disease interactions: No The Hematology/Oncology Oral Chemotherapy Clinic will assess medication compliance at each patient encounter Assessment and Plan: Discussing dosing with Dr. Song and if BELOB trial dosing should be followed for combination therapy of lomustine and bevacizumab Yes/no Date Action Taken [place] plan entered? Yes 03/01/24 Consent completed? Yes 02/29/24 Intro/med rec completed? Precert completed? Test claim completed? Financial assistance needed? Physician signature? Rx released? Education completed? Follow up: 2 days Martha Rivera, PharmD, BCOP Ambulatory Clinical Pharmacist | Oral Chemotherapy Clinic [facility] 03/01/2024, 9:17 AM Monitoring Parameters: Estimated CrCl Serum creatinine: 1.1 mg/dL 02/28/24 1216 Estimated creatinine clearance: 107.9 mL/min Hepatitis panel Complete 02/28/24 Not immune to hepatitis B virus Suggested lab monitoring CBCd and CMP weekly Treatment Parameters Please refer to PI Pertinent labs: Latest Reference Range & Units 02/28/24 12:16 WBC 4.00 - 10.80 K/uL 5.74 RBC 4.50 - 5.25 M/uL 4.19 HGB 14.0 - 16.8 g/dL 12.9 (L) HCT 40.0 - 48.4 % 38.5 (L) MCV 82.0 - 99.5 fL 91.9 MCH 27.0 - 34.0 pg 30.8 MCHC 32.0 - 36.0 g/dL 33.5 RDW 11.5 - 15.5 % 13.8 PLT 140 - 400 K/uL 292 MPV 6.6 - 11.1 fL 10.1 CBC WITH WBC DIFFERENTIAL Rpt ! Absolute Neutrophils 1.80 - 7.70 K/uL 3.84 Absolute Lymphocytes 1.00 - 4.80 K/ul 1.14 (L): Data is abnormally low !: Data is abnormal Rpt: View report in Results Review for more information Latest Reference Range & Units 02/28/24 12:16 Albumin 3.8 - 5.0 g/dL 4.3 AST 10 - 50 U/L 33 ALT 10 - 50 U/L 46 Alkaline Phosphatase 35 - 130 U/L 88 Bilirubin, Total <=1.2 mg/dL 0.5 Latest Reference Range & Units 02/28/24 12:16 HEPATITIS B SURFACE ANTIGEN Rpt Hepatitis B Surface Antigen Negative Negative Hepatitis B Surface Antibody, Quantitative mIU/mL <3.5 HEPATITIS B SURFACE ANTIBODY Rpt Hepatitis B Surface Antibody, Interpretation NOT immune to Hepatitis B Virus Hepatitis B Surface Antibody, Qualitative Negative Hepatitis B Core Antibodies IgG and IgM Negative Negative Hepatitis C Antibody Negative Negative HEPATITIS C ANTIBODY Rpt Rpt: View report in Results Review for more information Time Spent on Encounter: 16 - 20 minutes Encounter Group: Neuro-Oncology Encounter Interventions Item Category: Oral Chemotherapy Lomustine Problem/Rationale: [place] Plan Review: Initial Plan/upload Pharmacist Intervention(s): Care coordination, Clarification with Provider, Drug Interaction Screen, Lab monitoring, Referral review, and Referral to [facility] Magnitude of Intervention: Monitoring with direction (Level 1) documented in this encounter Plan of Treatment Upcoming Encounters Date Type Department Care Team (Late st Contact Info) Description 03/03/2024 1:30 PM EDT Pharmacy Pharmacy Hematology Oncology [facility] [place] [address] [place] [address] [facility] Hem/Onc [address] [place] [address] 05/23/2024 4:00 PM EDT Imaging Radiology [address] [address] 06/19/2024 11:15 AM EDT Office Visit Neurosurgery, [place] [address] [place] [address] Clinic, Brain Tumor Multidisciplinary [address] [place] [address] 06/28/2024 9:50 AM EDT Office Visit [facility] [address] [place] [phone] Luz Maria Gama, [address] [place] [address] Scheduled Procedures Name Priority Associated Diagnoses Date/Ti [...] Documents on File Type Date Recorded Patient Cook Chief Expl anation Advance Directives and Living Will 02/25/2024 Candi Mulligan signed on 11/06/2023 ADVANCE DIRECTIVE / LIVING WILL COMBINED LIVING WILL & HEALTH CARE POWER OF SILK SCREEN ETCHER POLST 12/03/2023 9:15 AM sign date [...] the patient have Health Care Power of Tube Buffer? No * Full Code Date Activated [...] Care Agent (per Health Care Power of Tube Buffer document) [email or web address] International Affairs Vice President Relationship Specialty Start Date End Date Luz Maria Gama DO [address] [place] [address] PCP - General Family Medicine 01/04/23 documented as of this encounter"
--- OUTSIDE RECORDS SUMMARY | 2024-05-06 15:34 | External Medical Summary | Summary of Care ---
Author Name Unknown Organization [facility] Address [address] [place] [address] Phone [phone] Care Team Providers Care Nursery Supervisor Name Role Phone Luz Maria Gama Primary Care Provider Reason for Visit * Reason Onset Date Comments Precert Future 02/28/2024 Zirabev/Lomustin e Encounter Details Date Type Department Care Team (Late st Contact Info) Description 02/28/2024 Telephone Hematology/Oncology [facility] [address] [facility] [place] [address] Palak Cast MD [address] [place] [address] Precert Future (Zirabev/Lomustine) Allergies No known active allergiesdocumented as of this encounter (statuses as of 02/29/2024) Medications Medication Sig Dispensed Refills Start Date [...] below 140/90,Ischemic cardiomyopathy,Coron christiane artery disease involving [place] coronary artery of [place] heart without angina pectoris,Dyslipidemi a, goal LDL [...] suspected opioid overdose. Seek medical help immediately. [email or web address] 1 mL 3 11/18/2023 Active Naloxone HCl 4 MG/0.1ML Nasal Liquid (Narcan Nasal) Administer 1 spray into 1 nostril for suspected opioid overdose. Seek immediate medical attention. https://www.TaKaDu.com/watch?v= [email or web address] 1 Each 3 11/18/2023 Active Ondansetron HCl [...] as of this encounter (statuses as of 02/29/2024) Active Problems Problem Noted Date Diagnosed Date [...] as of this encounter (statuses as of 02/29/2024) Resolved Problems Problem Noted Date Diagnosed Date [...] as of this encounter (statuses as of 02/29/2024) Immunizations Name Administration Dates Next Due COVID-19 [...] call her to review. Consent signed 02/29/24. * Telephone Encounter - Bobby Garcia, RN - 02/28/2024 4:06 PM EDT Orders received, plan built and routed. Awaiting authorization. [facility]- please see orders for Lomustine and create plan. Thank you. -Chemo Consent: Needs Completed -Chemo Education: Needs Scheduled -Port Placement: TBD -Standing Lab orders placed: CBCD,CMP,UA -Medications Pended: None -Hep B Labs: Completed 02/28/24 documented in this encounter Plan of Treatment Upcoming Encounters Date Type Department Care Team (Late st Contact Info) Description 02/29/2024 1:00 PM EDT Pharmacy Pharmacy Hematology Oncology [facility] [address] [place] [address] [facility] Hem/Onc [address] [place] [address] 02/29/2024 1:20 PM EDT Laboratory Laboratory [facility] [address] [place] [phone] [place], Lab [facility] [address] [place] [address] Arrived 03/31/2024 9:00 AM EDT Office Visit Neurology [facility] [address] [place] [address] Mariama Hinojosa [address] [place] [address] 06/19/2024 11:15 AM EDT Office Visit Neurosurgery, [place] [address] [place] [address] Clinic, Brain Tumor Multidisciplinary [facility] [address] [place], [place] [phone] 06/28/2024 9:50 AM EDT Office Visit [facility] [address] [facility], [place] [phone] Luz Maria Gama DO [address] [facility] [address] Scheduled Orders Name Type Priority Associated Diagnoses [...] Documents on File Type Date Recorded Patient Relay Associate Expl anation Advance Directives and Living Will 02/25/2024 Candi Mulligan signed on 11/06/2023 ADVANCE DIRECTIVE / LIVING WILL COMBINED LIVING WILL & HEALTH CARE POWER OF NATURAL RESOURCE OFFICER POLST 12/03/2023 9:15 AM sign date [...] the patient have Health Care Power of Order Takers Supervisor? No * Full Code Date Activated [...] Care Agent (per Health Care Power of Order Takers Supervisor document) Care Teams Nursery Supervisor Relationship Specialty Start Date End Date Luz Maria Gama DO [address] [place] [address] PCP - General Family Medicine 01/04/23 documented as of this encounter
--- OUTSIDE RECORDS SUMMARY | 2024-05-06 15:34 | External Medical Summary ---
Author Name Unknown Address Unknown Organization K09:[facility] [address] [place] [address] Laboratory Report Ordering Provider Test Date Status FUENTES DAVALOS 02/29/2024 13:25:39 Final Observation Date Value Abnormality Reference (Units ) Status Color of Urine by Auto 02/29/2024 13:25:39 Yellow Light Yellow, Yellow, Dark Yellow Final Clarity, Urine 02/29/2024 13:25:39 Clear Clear Final Glucose [Mass/volume] in Urine by Automated test strip 02/29/2024 13:25:39 Negative Negative (mg/dL) Final Bilirubin.total [Presence] in Urine by Automated test strip 02/29/2024 13:25:39 Moderate Abnormal Negative Final Ketones [Mass/volume] in Urine by Automated test strip 02/29/2024 13:25:39 15 Abnormal Negative (mg/dL) Final Specific gravity, Urine 02/29/2024 13:25:39 1.025 1.003-1.030 Final Hemoglobin [Presence] in Urine by Automated test strip 02/29/2024 13:25:39 Negative Negative Final pH, Urine 02/29/2024 13:25:39 5.5 5.0-7.5 (Units) Final Protein [Mass/volume] in Urine by Automated test strip 02/29/2024 13:25:39 30 Abnormal Negative (mg/dL) Final Urobilinogen [Mass/volume] in Urine by Automated test strip 02/29/2024 13:25:39 1.0 0.2, 1.0 (mg/dL) Final Nitrite [Presence] in Urine by Automated test strip 02/29/2024 13:25:39 Negative Negative Final Leukocyte esterase [Presence] in Urine by Automated test strip 02/29/2024 13:25:39 Negative Negative Final RBC, Urine 02/29/2024 13:25:39 0-2 0-2 (/HPF) Final WBC, Urine 02/29/2024 13:25:39 0-2 0-2 (/HPF) Final Bacteria [#/area] in Urine sediment by Microscopy high power field 02/29/2024 13:25:39 0-25 0-25 (/HPF) Final Mucus, Urine 02/29/2024 13:25:39 Many Abnormal None (/HPF) Final Performing Location [facility] [address] [place] [address]
--- OUTSIDE RECORDS SUMMARY | 2024-05-06 15:34 | External Medical Summary | Summary of Care ---
Author Name Unknown Organization [facility] Address [address] [place] [address] Phone [phone] Care Team Providers Care Consulting Systems Engineer Name Role Phone Luz Maria Gama Primary Care Provider Reason for Visit * Reason Onset Date Comments Precert Future 02/28/2024 Zirabev/Lomustin e Encounter Details Date Type Department Care Team (Late st Contact Info) Description 02/28/2024 Telephone Hematology/Oncology [facility] [address] [place] [address] Palak Cast MD [address] [place] [address] Precert Future (Zirabev/Lomustine) Allergies No [...] below 140/90,Ischemic cardiomyopathy,Coron christiane artery disease involving [place] coronary artery of [place] heart without angina pectoris,Dyslipidemi a, goal LDL [...] suspected opioid overdose. Seek medical help immediately. http://ComplexCare Solutions.be/ [email or web address] 1 mL 3 11/18/2023 Active Naloxone HCl 4 MG/0.1ML Nasal Liquid (Narcan Nasal) Administer 1 spray into 1 nostril for suspected opioid overdose. Seek immediate medical attention. https://www.DailyBooth.com/watch?v= [email or web address] 1 Each 3 11/18/2023 Active Ondansetron HCl [...] received, plan built and routed. Awaiting authorization. [facility]- please see orders for Lomustine and create plan. Thank you. -Chemo Consent: Needs Completed -Chemo Education: Needs Scheduled -Port Placement: TBD -Standing Lab orders placed: CBCD,CMP,UA -Medications Pended: None -Hep B Labs: Completed 02/28/24 documented in this encounter Plan of Treatment Upcoming Encounters Date Type Department Care Team (Late st Contact Info) Description 03/03/2024 1:30 PM EDT Pharmacy Pharmacy Hematology Oncology [facility] [place] [address] [place] [address] [facility] [place] Hem/Onc [address] [place] [address] 05/23/2024 4:00 PM EDT Imaging Radiology [address], [address] [place] [address] 06/19/2024 11:15 AM EDT Office Visit Neurosurgery, [place] [address] [place] [address] Clinic, Brain Tumor Multidisciplinary [address] [place] [address] 06/28/2024 9:50 AM EDT Office Visit [facility] [address] [place] [phone] Luz Maria Gama DO [address] [place] [address] Scheduled Orders Name Type Priority Associated Diagnoses [...] Documents on File Type Date Recorded Patient Sausage Grinder Expl anation Advance Directives and Living Will 02/25/2024 Candi Mulligan signed on 11/06/2023 ADVANCE DIRECTIVE / LIVING WILL COMBINED LIVING WILL & HEALTH CARE POWER OF SHUTTLE INSPECTOR POLST 12/03/2023 9:15 AM sign date 12/01/2023 [...] the patient have Health Care Power of Cushion Maker? No * Full Code Date Activated [...] Care Agent (per Health Care Power of Cushion Maker document) [email or web address] Care Teams Consulting Systems Engineer Relationship Specialty Start Date End Date Luz Maria Gama DO [address] [place] [address] PCP - General Family Medicine 01/04/23 documented as of this encounter
--- OUTSIDE RECORDS SUMMARY | 2024-05-06 15:34 | External Medical Summary | Summary of Care ---
Author Name Unknown Organization [facility] Address [address] [place] [address] Phone [phone] Care Team Providers Care Military Equipment Specialist Name Role Phone Luz Maria Gama Primary Care Provider [phone] Reason for Visit * Reason Comments NEW PATIENT * Evaluate & Treat - Unlimited Visits (Within 3 days (urgent)) - Pending Review Specialty Diagnoses / Procedures Referred By Jerel jackson Referred To Contact Hematology/Oncology / Hematology Oncology Diagnoses Glioblastoma (HCC) Louis Souza IV, PA-C [address] [place] [address] Referral ID Status Reason Start Date Expiration Date Visits Requested Visits Authorized [id number] Pending Review Specialty Services Required 11/19/[phone] Encounter Details Date Type Department Care Team (Late st Contact Info) Description 02/29/2024 12:15 PM EDT Office Visit Hematology/Oncology [facility] [place] [address] [place] [phone] Shay Song MD [address] [facility] [place] [address] Glioblastoma (HCC)* Allergies No known active allergiesdocumented [...] below 140/90,Ischemic cardiomyopathy,Coron christiane artery disease involving [place] coronary artery of [place] heart without angina pectoris,Dyslipidemi a, goal LDL [...] suspected opioid overdose. Seek medical help immediately. [email or web address] 1 mL 3 11/18/2023 Active Naloxone HCl 4 MG/0.1ML Nasal Liquid (Narcan Nasal) Administer 1 spray into 1 nostril for suspected opioid overdose. Seek immediate medical attention. https://www.OneBreathe.com/watch?v= [email or web address] 1 Each 3 11/18/2023 Active Ondansetron HCl [...] Sign Reading Time Taken Comments Blood Pressure 144/82 02/29/2024 12:02 PM EDT Pulse 93 02/29/2024 12:02 PM EDT Temperature 36.9 C (98.4 F) 02/29/2024 1 2:02 PM EDT Respiratory Rate 16 02/29/2024 12:0 2 PM EDT Oxygen Saturation 97% 02/29/2024 12: 02 PM EDT Inhaled Oxygen Concentration - - Weight 137.3 kg (302 lb 12.8 oz) 2023 12:02 PM EDT Height - - Body Mass Index 38.88 11/05/2023 10:12 PM EST documented in this [...] Progress Notes * Shay Song MD - 02/29/2024 12:03 PM EDT Hematology/Oncology Outpatient Consult Note Angelia Castañeda [place] [address] [place] [address] JUANCARLOS LUJAN MR # [id number] :1965 58 years old male, REASON FOR CONSULTATION: Consultation for Juancarlos Lujan requested by Dr. 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 CURRENT TREATMENT: - planning for CCNU (Lomustine)at 90 mg/m every 6 weekly and bevacizumab 10 mg/kg every 2 weekly. PREVIOUS TREATMENT: -Combined chemotherapy with oral temozolomide and radiation treatment in early January 2024. [facility] DIAGNOSTIC WORKUP: Earlier in late August 2023, he could not read quite well, had some increasing headache, increasing fatigue, he had a brain MRI which showed large left temporal occipital mass as follows: Brain MRI on 11/05/2023: -heterogeneously mass centered at the left temporal-occipital junction, with enhancing portions measuring approximately 6.1 x 3.5 x 3.4 cm. He was then seen at [facility], S/p Subtotal resection, 11/10/2023 Pathology from [...] Keppra prophylaxis. -rosacea, on doxycycline INTERVAL HISTORY: He has come the clinic for the initial evaluation, accompanied by his significant other. He has trouble speaking which is lumbar improved after recent start of the Decadron therapy. No fall. Headachepresent, he takes MS Contin 30 mg every 12 hourly and the morphine 15 mg for the breakthrough pain,follows up with Palliative Care. No nausea or vomiting at this time. No fever. Good appetite, current weight around 302 lb. He lives by himself, his neighbors keeps eye on him. Not driving. No seizure. He is on Keppra prophylaxis. REVIEW OF SYSTEMS: GENERAL: No change in weight, no focal weakness, some fatigue, no fever, sweats or chills. SKIN: No skin rash, no bruising. HEAD: Headache, no dizziness. EYES: No recent change in the vision, no diplopia, EARS: No earache no tinnitus, NOSE: No epistaxis, No nasal discharge or stuffiness, MOUTH: No sores, no dysphagia, no hoarseness of voice, NECK: No lumps, No swelling in thyroid area. No stiffness. PULMONARY: No cough, No shortness of breath at rest, no hemoptysis, no chest pain, No wheezing. CARDIOVASCULAR: No anginal chest pain, no PND, no orthopnea. No palpitation, no leg edema. No syncope. GASTROINTESTINAL: No abdominal pain, no nausea or vomiting. No diarrhea, mild constipation. No blood in stool or black tarry stools. No abdominal distention. UROLOGIC: No burning urination. No hematuria. MUSCULOSKELETAL: No joint pain, No joint swelling, no muscle weakness. HEMATOLOGIC: No anemia, no bleeding disorder, No bruising. NEUROLOGIC: No seizures, no focal weakness, some speech difficulty, some memory disturbances. No tingling or numbness of the extremities. PSYCHIATRIC: h/o depression. No anxiety. No psychosis. Past Medical History: Diagnosis Date Bradycardia, sinus CAD (coronary artery disease) CxOM3 BMS 08/16/15 HTN, goal below 140/80 Hx of tobacco use, presenting hazards to health Past Surgical History: Procedure Laterality Date COLONOSCOPY, DIAGNOSTIC (RECTUM) N/A 09/01/2016 normal biopsy/recall 10 years/COLONOSCOPY FLEXIBLE PROXIMAL DIAGNOSTIC performed by Dominik Herrera MD at OR [facility] CORONARY ANGIOGRAPHY W/LEFT HEART CATH Right 08/16/2015 CORONARY ANGIOGRAPHY W/LEFT HEART CATH performed by Joel Brambila MD at [facility] MICROSURGERY ADD-ON Left 11/10/2023 MICROSURGICAL SURGERY REQUIRING MICROSCOPE LISTED SEPARATELY performed by Matteo Ornelas III, MD at OR [facility] REMOVE SUPRATENTORIAL BRAIN TUMOR Left 11/10/2023 CRANIOTOMY BONE FLAP EXCISION BRAIN TUMOR SUPRATENTORIAL performed by Matteo Ornelas III, [facility] OR [facility] REMOVE TONSILS & ADENOIDS, UNDER 12 STEREOTACTIC CRANIAL INTRADURAL NAVIGATION Left 11/10/2023 STEREOTACTIC CRANIAL INTRADURAL NAVIGATION performed by Matteo Ornelas III, MD at OR [facility] Current Outpatient Medications Medication Sig Dispense Refill [...] suspected opioid overdose. Seek medical help immediately. [email or web address] 1 mL 3 Naloxone HCl 4 MG/0.1ML Nasal Liquid (Narcan Nasal) Administer 1 spray into 1 nostril for suspectedopioid overdose. Seek immediate medical attention. https://www.youtube.com/[email or web address]?v=[email or web address] 1 Each 3 Ondansetron HCl 8 MG [...] by mouth at bedtime. 60 Tablet 0 dexAMETHasone 2 MG Oral Tablet (Decadron) Take [...] mouth in the morning. 30 Capsule 0 No current facility-administered medications for this visit. Family History Problem Relation Name Age of Onset Lung cancer Mother Stomach cancer Grandmother (Maternal) Social History Socioeconomic History Marital status: Spouse name: Janeth Number of children: 2 Years of education: 14 Highest education level: Not on file Occupational History Occupation: [employer] Employer: [employer] Tobacco Use Smoking status: Former Current packs/day: [...] on file Housing Stability: Not on file On Exam: BP 144/82 (BP Site: Left Arm, BP Position: Sitting, BP Cuff Size: Large) | Pulse 93 | Temp 36.9 C(98.4 F) (Tympanic) | Resp 16 | Wt (!) 137.3 kg (302 lb 12.8 oz) | SpO2 97% | BMI 38.88 kg/m | BSA 2.68 m Constitutional: Patient is alert, cooperative and oriented x 3. Well built man, Patient is in no acute distress. HEENT:No icterus, no pallor, Throat and pharynx normal. Sinuses are non-tender. Neck: Supple and without lymphadenopathy or masses. No JVD. No Palpable supraclavicular lymph nodes. Lungs: Clear to auscultation. Bilateral symmetric air entry. No wheezing or rhonchi. Cardiovascular: Normal heart sounds, no murmurs.Regular rate and rhythm. Abdomen: soft, nontender, no hepatomegaly, no splenomegaly. Bowel sounds are normal. Neurological: No gross focal neurological deficit; walks with a normal gait. Extremities: No finger clubbing, No cyanosis. No leg edema. Skin:: No skin rash. SPINE: No spinal or paraspinal tenderness. LABS: Blood workup done on 02/28/2024: -WBC 5700, H&H of 12.9/38.5, Platelet count of 163313 -BUN/Creat: 10/1.1, Calcium 10.0, normal LFT. -hepatitis-B and C serology --> negative. IMAGING: Brain MRI on 02/22/2024: Progressive disease with increase in solid enhancing tumor within the left parietal and temporal lobes with associated increased cerebral perfusion and progressive confluent hyperintense T2 FLAIR signal. Tumor component within the left parietal lobe measures 1.9 x 1.3 cm, previously 1.3 x 0.8 cm. Enhancing tumor has a mildly configuration with largest component measuring approximately 4.8 x 1.5 x 5.7cm located within the left temporal lobe. Nodular subependymal tumor is seen along the left temporal horn and atrium of the lateral ventricle. ASSESSMENT AND PLAN: 58-year-old male, A case of GBM involving the left temporo-occipital region,(10/2023) NGS checkup: -TMB 5.6-->low, MSI stable -EGFR amplification--> positive. 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 Completed dated temozolomide and radiation treatment in early January 2024, follow- up imaging study within 1 month showed progression of the disease. He was seen by neuro-oncologist at [facility], they have recommended change the treatment plan with lomustine and the bevacizumab, I reviewed with them regarding the treatment schedule side effect profile he is in agreement for that. Reviewed blood workup, overall stable blood workup noted. Will check urinalysis today. They are also planning to start [facility] Rx. Recently he was restarted on Decadron with improvement of the speech in last 24 hours noted.(Tapering dose) Once we start on treatment, will see him in about 4 weeks' time. He will continue to f/up with palliative care . He on on MS Contin 30 mg q 12 h and morphine for breakthrough. Follow-up brain MRI about 3 months' time. Thanks for the consult. Dr. Shay Song Hem/Onc (This note was completed using the dictation program Fluency Direct. As such, there may be misspellings word substitutions, or other variations that should not change the essence of the clinical content of this encounter note. If there is need for further clarification, please direct questions to the provider listed above.) documented in this encounter Nursing Notes * Kecia Rausch, CABRERA SCHRADER - 02/29/2024 12:03 PM EDT Patient identifed by name and birthdate [...] it for you? ALREADY ACTIVE Filed Vitals: 02/29/24 1202 BP: 144/82 Pulse: 93 Resp: 16 Temp: 36.9 C (98.4 F) TempSrc: Tympanic SpO2: 97% Weight: (!) 137.3 kg (302 lb 12.8 oz) Patient was instructed to not get up on the exam table/exam chair until directed and assisted by their provider; patient is to remain seated in the chair/ wheelchair/ exam table/ exam chair for fall prevention and safety reasons. Patient is aware to have assistance to step down off exam table/exam chair with personnel. Patient voiced full comprehension of instructions. Pt family would not let me review the medications. Stated they should be all up to date documented in this encounter Plan of Treatment Upcoming Encounters Date Type Department Care Team (Late st Contact Info) Description 06/19/2024 11:15 AM EDT Office Visit Neurosurgery, [place] [address] [place] [address] Clinic, Brain Tumor Multidisciplinary [address] [place] [address] 06/28/2024 9:50 AM EDT Office Visit [facility] [address] [place] [phone] Luz Maria Gama, DO [address] [place] [address] Scheduled Procedures Name Priority Associated Diagnoses Date/Ti [...] Procedure Name Priority Date/Time Associated Diagnosis Comments URINALYSIS WITH MICROSCOPIC EXAM STAT 02/29/2024 1:25 PM EDT Glioblastoma (HCC) documented in this encounter Results * (ABNORMAL) URINALYSIS WITH MICROSCOPIC EXAM (02/29/2024 1:25 PM EDT) Color, Urine Yellow Light Yellow, Yellow, Dark Yellow 02/29/2024 1:40 PM EDT LABORATORY [address] Clarity, Urine Clear Clear 02/29/2024 1:40 PM EDT LABORATORY [address] Glucose, Urine Negative Negative mg/dL 02/29/2024 1:40 PM EDT [address] Bilirubin, Urine Moderate(A) Negative 02/29/2024 1:40 PM EDT LABORATORY [address] Ketone, Urine 15(A) Negative mg/dL 02/29/2024 1:40 PM EDT [address] Specific [place], Urine 1.025 1.003 - 1.030 02/29/2024 1:40 PM EDT [address] Blood, Urine Negative Negative 02/29/2024 1:40 PM EDT [address] pH, Urine 5.5 5.0 - 7.5 Units 02/29/2024 1:40 PM EDT [address] Protein, Urine 30(A) Negative mg/dL 02/29/2024 1:40 PM EDT [address] Urobilinogen, Urine 1.0 0.2, 1.0 mg/dL 02/29/2024 1:40 PM EDT [address] Nitrite, Urine Negative Negative 02/29/2024 1:40 PM EDT [address] Esterase, Urine Negative Negative 02/29/2024 1:40 PM EDT [address] RBC, Urine 0-2 0 - 2 /HPF 02/29/2024 1:40 PM EDT LABORATORY [address] WBC, Urine 0-2 0 - 2 /HPF 02/29/2024 1:40 PM EDT [address] Bacteria, Urine 0-25 0 - 25 /HPF 02/29/2024 1:40 PM EDT [facility] 56 Mucus, Urine Many(A) None /HPF 02/29/2024 1:40 PM EDT [facility] 56 Urine Non-blood Collection / Unknown 02/29/2024 1:25 PM EDT 02/29/2024 1:25 PM EDT Shay Song MD LAB URINE ORDERABLES [facility] [address] [place] [address] documented in this encounter Visit Diagnoses Diagnosis Glioblastoma (HCC)- Primary Malignant neoplasm of brain, unspecified site documented in this encounter Advance Directives Documents on File Type Date Recorded Patient Histology Technician Expl anation Advance Directives and Living Will 02/25/2024 Candi Mulligan signed on 11/06/2023 ADVANCE DIRECTIVE / LIVING WILL COMBINED LIVING WILL & HEALTH CARE POWER OF PIPE WRAPPING MACHINE OPERATOR POLST 12/03/2023 9:15 AM sign [...] the patient have Health Care Power of Top Frame Maker? No * Full Code Date Activated [...] Care Agent (per Health Care Power of Top Frame Maker document) [email or web address] Care Teams Military Equipment Specialist Relationship Specialty Start Date End Date Luz Maria Gama DO [address] [place] [address] PCP - General Family Medicine 01/04/23 documented as of this encounter"
--- OUTSIDE RECORDS SUMMARY | 2024-05-06 15:34 | External Medical Summary | Summary of Care ---
Author Name Unknown Organization [facility] Address [address] [place] [address] Phone [phone] Care Team Providers Care Checkering Machine Adjuster Name Role Phone Luz Maria Gama Primary Care Provider Encounter Details Date Type Department Care Team (Late st Contact Info) Description 02/28/2024 Orders Only Hematology/Oncology [facility] [address] [place] [phone] Palak Cast MD [address] [place] [address] Allergies No known active allergiesdocumented as of [...] below 140/90,Ischemic cardiomyopathy,Coron christiane artery disease involving [place] coronary artery of [place] heart without angina pectoris,Dyslipidemi a, goal LDL [...] suspected opioid overdose. Seek medical help immediately. [email or web address] 1 mL 3 11/18/2023 Active Naloxone HCl 4 MG/0.1ML Nasal Liquid (Narcan Nasal) Administer 1 spray into 1 nostril for suspected opioid overdose. Seek immediate medical attention. https://www.[employer].com/watch?v= [email or web address] 1 Each 3 11/18/2023 Active Ondansetron HCl [...] mRNA, LNP-s, No Pre serve, 2-Dose Series (Yidio) 12/02/2020,10/28/2020 Pneumococcal Polysaccharide PPV23 (Pneumovax) Seasonal Influenza, [...] 02/29/2024 12:15 PM EDT Office Visit Hematology/Oncology [facility] [address] [place] [phone] Shay Song MD [address] [place] [address] 02/29/2024 1:00 PM EDT Pharmacy Pharmacy Hematology Oncology [facility] [place] [address] [place] [address] [facility] Hem/Onc [address] [place] [address] 03/31/2024 9:00 AM EDT Office Visit Neurology [facility] [address] [facility] [place] [address] Mariama Hinojosa, [address] [place] [address] 06/19/2024 11:15 AM EDT [facility] [address] [place] [address] Clinic, Brain Tumor Multidisciplinary [address] [place] [address] 06/28/2024 9:50 AM EDT Office Visit [facility] [address] [place] [address] Luz Maria Gama, [address] [place] [address] Scheduled Procedures Name Priority Associated Diagnoses Date/Ti [...] Documents on File Type Date Recorded Patient Ranch Hand Supervisor Expl anation Advance Directives and Living Will 02/25/2024 Candi Isaak signed on 11/06/2023 ADVANCE DIRECTIVE / LIVING WILL COMBINED LIVING WILL & HEALTH CARE POWER OF THERAPEUTIC RADIOLOGIST POLST 12/03/2023 9:15 AM sign date 12/01/2023 [...] the patient have Health Care Power of Shale Miner? No * Full Code Date Activated Date [...] Care Agent (per Health Care Power of Shale Miner document) [email or web address] Care Teams Checkering Machine Adjuster Relationship Specialty Start Date End Date Luz Maria Gama DO [address] [place] [address] PCP - General Family Medicine 01/04/23 documented as of this encounter
--- OUTSIDE RECORDS SUMMARY | 2024-05-06 15:34 | External Medical Summary | Summary of Care ---
Author Name Unknown Organization [facility] Address [address] [facility] [address] Phone [phone] Care Team Providers Care Inside Sales Consultant Name Role Phone Luz Maria Gama Primary Care Provider [phone] Reason for Visit * Reason Comments Outpatient Testing Encounter Details Date Type Department Care Team (Late st Contact Info) Description 02/29/2024 1:20 PM EDT Laboratory [facility] [place] [address] [place] [phone] [place] [address] [place] [address] Arrived Allergies No known active allergiesdocumented as [...] below 140/90,Ischemic cardiomyopathy,Coron christiane artery disease involving [place] coronary artery of eyak heart without angina pectoris,Dyslipidemi a, goal LDL [...] suspected opioid overdose. Seek medical help immediately. [email or web address] 1 mL 3 11/18/2023 Active Naloxone HCl 4 MG/0.1ML Nasal Liquid (Narcan Nasal) Administer 1 spray into 1 nostril for suspected opioid overdose. Seek immediate medical attention. https://www.GLG.com/watch?v= [email or web address] 1 Each 3 11/18/2023 Active Ondansetron HCl [...] 06/19/2024 11:15 AM EDT Office Visit Neurosurgery, [place] [address] [place] [address] Clinic, Brain Tumor Multidisciplinary [address] [place] [address] 06/28/2024 9:50 AM EDT Office Visit [facility] [address] [place] [address] Luz Maria Gama DO [address] [place], [place] [phone] Scheduled Procedures Name Priority Associated Diagnoses Date/Ti [...] Documents on File Type Date Recorded Patient Territory Supervisor Expl anation Advance Directives and Living Will 02/25/2024 Candi Mulligan signed on 11/06/2023 ADVANCE DIRECTIVE / LIVING WILL COMBINED LIVING WILL & HEALTH CARE POWER OF HOG SCALDER POLST 12/03/2023 9:15 AM sign date 12/01/2023 [...] the patient have Health Care Power of [place] Pilot? No * Full Code Date Activated Date [...] Care Agent (per Health Care Power of Ship [place] Pilot document) Care Teams Inside Sales Consultant Relationship Specialty Start Date End Date Luz Maria Gama DO [address] [place] [facility] [place] [address] PCP - General Family Medicine 01/04/23 documented as of this encounter
--- OUTSIDE RECORDS SUMMARY | 2024-05-06 15:34 | External Medical Summary | Summary of Care ---
Author Name Unknown Organization [facility] Address [address] [place] [address] Phone [phone] Care Team Providers Care Inspector Welded Parts Name Role Phone VirginiaLuz Maria loja Tiffany LOUIE Primary Care Provider Reason for Referral * (Within 10 days (routine)) - Pending Review Specialty Diagnoses / Procedures Referred By Jerel jackson Referred To Contact Radiology Diagnoses Glioblastoma (HCC) Procedures MRI NEURO 3-D RECONSTRUCTION Louis Souza IV, PA-C [address] [place] [address] Referral ID Status Reason Start Date Expiration Date V isits Requested Visits Authorized [id number] Pending Review 05/30/2024 999 999 * Precert (Within 10 days (routine)) - Pending Review Specialty Diagnoses / Procedures Referred By Jeerl jackson Referred To Contact Radiology Diagnoses Glioblastoma (HCC) Procedures MRI BRAIN W WO CONTRAST Louis Souza IV, PA-C [address] [place] [address] Referral ID Status Reason Start Date Expiration Date V isits Requested Visits Authorized [id number] Pending Review 05/30/2024 999 999 Reason for Visit * Reason Comments Return Neuro Encounter Details Date Type Department Care Team (Late st Contact Info) Description 02/28/2024 11:15 AM EDT Office Visit Neurosurgery, [facility] [address] [place] [address] Clinic, Brain Tumor Multidisciplinary [address] [place] [address] Glioblastoma (HCC)* Allergies No known active allergiesdocumented [...] below 140/90,Ischemic cardiomyopathy,Coron christiane artery disease involving ely shoshone coronary artery of ely shoshone heart without angina pectoris,Dyslipidemi a, goal LDL [...] opioid overdose. Seek medical help immediately. http://youtu.be/ -[email or web address] 1 mL 3 11/18/2023 Active Naloxone HCl 4 MG/0.1ML Nasal Liquid (Narcan Nasal) Administer 1 spray into 1 nostril for suspected opioid overdose. Seek immediate medical attention. https://www.Continuity Softwaree.com/watch?v= [email or web address] 1 Each 3 11/18/2023 Active Ondansetron HCl [...] today's visit, please contact our clinic at [phone]. 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 WHO grade: 4 Molecular information: EGFRvIII mutation, [...] performed by Dominik Herrera MD at OR [facility] CORONARY ANGIOGRAPHY W/LEFT HEART CATH Right 08/16/2015 CORONARY ANGIOGRAPHY W/LEFT HEART CATH performed by Joel Brambila MD at CARDIAC LABS [facility] [place] [place] MICROSURGERY ADD-ON Left 11/10/2023 MICROSURGICAL SURGERY REQUIRING MICROSCOPE LISTED SEPARATELY performed by Matteo Ornelas III, MD at OR [facility] [place] [place] REMOVE SUPRATENTORIAL BRAIN TUMOR Left 11/10/2023 CRANIOTOMY BONE FLAP EXCISION BRAIN TUMOR SUPRATENTORIAL performed by Matteo Ornelas III [facility] OR [facility] [place] [place] REMOVE TONSILS & ADENOIDS, UNDER 12 STEREOTACTIC CRANIAL INTRADURAL NAVIGATION Left 11/10/2023 STEREOTACTIC CRANIAL INTRADURAL NAVIGATION performed by Matteo Ornelas III, MD at OR [facility] [place] [place] SOCIAL HISTORY: Social History Tobacco Use Smoking [...] suspected opioid overdose. Seek medical help immediately. http://BoardEvals.[email or web address] 1 mL 3 Naloxone HCl 4 MG/0.1ML Nasal Liquid (Narcan Nasal) Administer 1 spray into 1 nostril for suspectedopioid overdose. Seek immediate medical attention. https://www.youtube.com/watch?v=r39wDyf8QdK 1 Each 3 Ondansetron HCl 8 MG [...] chart IMAGES: Personally reviewed and discussed in [facility] Mri brain 02/22/24:IMPRESSION Progressive disease with increase in solid enhancing tumor within the left parietal and temporal lobes with associated increased cerebral perfusion and progressive confluent hyperintense T2 FLAIR signal. 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 NGS--TMB low, MSI stable and EGFR amplified. WRPL4Ypor B loss, PTEN and CTNNB1 mutations Meningioma( [...] get labs today as well Recommend [facility], he is interested, will send Rx [facility]reached out to scheduling Start Dex for s/s mgt, schedule discussed and rx sent for Dex/PPI. Can start PJP ppx once labs backand meets [facility] in [facility]MDC in 3mo with Brain [...] PROGRESS NOTE - Neurosurgery -- Brain Tumor [facility] [address] Name: Remy Lujan Date: 11:38 AM Time: 9:31 AM Primary Care Provider: Luz Maria Gama DO PRESENTING PROBLEM: Post op, Glioblastoma Past NSGY Procedures: Dr. 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 Molecular information: EGFRvIII mutation, [...] performed by Dominik Herrera MD at OR [facility] CORONARY ANGIOGRAPHY W/LEFT HEART CATH Right 08/16/2015 CORONARY ANGIOGRAPHY W/LEFT HEART CATH performed by Joel Brambila MD at [facility] [place] [place] MICROSURGERY ADD-ON Left 11/10/2023 MICROSURGICAL SURGERY REQUIRING MICROSCOPE LISTED SEPARATELY performed by Matteo Ornelas III, MD at OR [facility] [place] [place] REMOVE SUPRATENTORIAL BRAIN TUMOR Left 11/10/2023 CRANIOTOMY BONE FLAP EXCISION BRAIN TUMOR SUPRATENTORIAL performed by Matteo Ornelas III, [facility] OR [facility] [place] [place] REMOVE TONSILS & ADENOIDS, UNDER 12 STEREOTACTIC CRANIAL INTRADURAL NAVIGATION Left 11/10/2023 STEREOTACTIC CRANIAL INTRADURAL NAVIGATION performed by Matteo Ornelas III, MD at [facility] SOCIAL HISTORY: Social History Socioeconomic History Marital status: Spouse name: Janeth Number of children: 2 Years of education: 14 Highest education level: Not on file Occupational History Occupation: [employer] Employer: [employer] Tobacco Use Smoking status: Former Current packs/day: [...] suspected opioid overdose. Seek medical help immediately. http://Zoodlesu.be/-[email or web address] 1 mL 3 Naloxone HCl 4 MG/0.1ML Nasal Liquid (Narcan Nasal) Administer 1 spray into 1 nostril for suspectedopioid overdose. Seek immediate medical attention. https://www.youtube.com/watch?v=u65wFwj4CjL 1 Each 3 Ondansetron HCl 8 MG [...] year old male who presents in tumor [facility] for postoperative follow-up. Patient underwent left temporal [...] time F/u in 3 months in tumor [facility] with repeat MRI Brain w and wo [...] 11:15 AM EDT RADIATION ONCOLOGY FOLLOW-UP NOTE [facility] Remy Lujan [id number] 58 year old Remy Lujan was seen in follow-up in Radiation Oncology at [facility] on 02/28/2024. 58 year old male with a glioblastoma of the left temporoparietal junction, IDH- wt, s/p left temporal craniotomy for subtotal tumor resection 11/10/2023, s/p 60 Gy / 30 fx in [facility] with temozolomide completed 01/24/2024 INTERVAL HISTORY: 11/22/2023 Last seen by me (went to [facility] for RT) 02/22/2024 MRI brain: Progressive disease [...] 30 10 - 50 U/L ASSESSMENT: 02/28/2024 AUTO ELECTRICAL TECHNICIAN MDC recommendation: CCNU/Avastin/Optune; f/u in 3 months [...] Downey MD 02/28/2024 documented in this encounter Plan of Treatment Upcoming Encounters Date Type Department Care Team (Late st Contact Info) Description 03/31/2024 9:00 AM EDT Office Visit Neurology [facility] [address] [place] [address] Mariama Hinojosa DO [address] [place] [address] 06/19/2024 11:15 AM EDT Office Visit Neurosurgery, [facility] [address] [place] [address] Clinic, Brain Tumor Multidisciplinary [address] [place] [address] 06/28/2024 9:50 AM EDT Office Visit [address] [phone] Luz Maria Gama, DO [address] [facility] JU[place]MARTI MARQUEZ [id number] Scheduled Orders Name Type Priority Associated Diagnoses [...] MD LAB BLOOD ORDERABLES Performing Organization Address [facility] Co de Phone Number LABORATORY [facility] [place] [place] [address] [place] [address] * HEPATITIS C ANTIBODY (02/28/2024 12:16 PM EDT) Pathologist [facility] Hepatitis C Antibody Negative Negative 02/28/2024 1:54 PM EDT LABORATORY [facility] [place] [place] Comment:Further HCV quantita tive testing not performed per protocol. Blood Venous blood specimen / Unknown Venipuncture / Unknown 02/28/2024 12:16 PM EDT 02/28/2024 12:57 PM EDT Palak Cast MD LAB BLOOD ORDERABLES LABORATORY [facility] [place] [place] [address] [place] [address] * DIFFERENTIAL, AUTOMATED (02/28/2024 12:16 PM EDT) Pathologist [facility] WBC 5.74 4.00 - 10.80 K/uL 02/28/2024 1:26 PM EDT LABORATORY [facility] [place] [place] Neutrophils % 66.9 40.0 - 75.0 % [...] Palak Cast MD LAB BLOOD ORDERABLES LABORATORY [facility] [place] [place] [address] [place] [address] * (ABNORMAL) CBC (02/28/2024 12:16 PM EDT) [facility] WBC 5.74 4.00 - 10.80 K/uL 02/28/2024 [...] MD LAB BLOOD ORDERABLES Performing Organization Address City/State/[facility] de Phone Number LABORATORY [facility] [place] [address] [place] [address] * HEPATITIS B CORE ANTIBODIES IGG AND IGM (02/28/2024 12:16 PM EDT) Hepatitis B Core Antibodies IgG and IgM Negative Negative 02/28/2024 1:54 PM EDT [facility] Blood Venous blood specimen / Unknown Venipuncture / Unknown 02/28/2024 12:16 PM EDT 02/28/2024 12:57 PM EDT Palak Cast MD LAB BLOOD ORDERABLES LABORATORY [facility] [place] [place] [address] [place] [address] * HEPATITIS B SURFACE ANTIGEN (02/28/2024 12:16 PM EDT) [facility] Hepatitis B Surface Antigen Negative Negative 02/28/2024 1:54 PM EDT LABORATORY [facility] [place] [place] Blood Venous blood specimen / Unknown Venipuncture / Unknown 02/28/2024 12:16 PM EDT 02/28/2024 12:57 PM EDT Palak Cast MD LAB BLOOD ORDERABLES Performing Organization Address [facility] Co de Phone Number LABORATORY [facility] [place] [place] [address] [place] [address] * HEPATITIS B SURFACE ANTIBODY (02/28/2024 12:16 PM EDT) [facility] Hepatitis B Surface Antibody, Quantitative <3.5 mIU/mL 02/28/2024 1:54 PM EDT LABORATORY [facility] [place] [place] Hepatitis B Surface Antibody, Qualitative Negative 02/28/2024 1:54 PM EDT LABORATORY [facility] [place] [place] Hepatitis B Surface Antibody, Interpretation NOT immune to Hepatitis B Virus 02/28/2024 1:54 PM EDT LABORATORY [facility] [place] [place] Comment: POSITIVE: >=11.5 mIU/mL INDETERMINATE: 8.5-<11.5 mIU/mL NEGATIVE: <8.5 mIU/mL Blood Venous blood specimen / Unknown Venipuncture / Unknown 02/28/2024 12:16 PM EDT 02/28/2024 12:57 PM EDT Palak Cast MD LAB BLOOD ORDERABLES Performing Organization Address City/[facility] Co de Phone Number LABORATORY [facility] [place] [place] [address] [place] [address] * COMPREHENSIVE METABOLIC PANEL (02/28/2024 12:16 PM EDT) [facility] BUN 10 6 - 20 mg/dL 02/28/2024 1:27 PM EDT LABORATORY [facility] [place] [place] Creatinine 1.1 0.6 - 1.2 mg/dL 02/28/2024 [...] MD LAB BLOOD ORDERABLES [facility] [address] [place] [address] documented in this encounter Visit Diagnoses Diagnosis Glioblastoma (HCC)- Primary Malignant neoplasm of brain, unspecified site documented in this encounter Advance Directives Documents on File Type Date Recorded Patient Char Filter Operator Expl anation Advance Directives and Living Will 02/25/2024 Candi Mulligan signed on 11/06/2023 ADVANCE DIRECTIVE / LIVING WILL COMBINED LIVING WILL & HEALTH CARE POWER OF DIRECTOR OF EDUCATION AND TRAINING POLST 12/03/2023 9:15 AM sign date 12/01/2023 [...] the patient have Health Care Power of Line Staker? No * Full Code Date Activated Date [...] Care Agent (per Health Care Power of Line Staker document) Care Teams Inspector Welded Parts Relationship Specialty Start Date End Date Luz Maria Gama DO [address] [facility] [place] [address] PCP - General Family Medicine 01/04/23 documented as of this encounter"
--- OUTSIDE RECORDS SUMMARY | 2024-05-06 15:34 | External Medical Summary | Summary of Care ---
Author Name Unknown Organization [facility] Address [address] [place] [address] Phone [phone] Care Team Providers Care Director Of Athletics Name Role Phone Luz Maria Gama Primary Care Provider Reason for Visit * Reason Onset Date Comments Precert Future 02/28/2024 Zirabev/Lomustin e Encounter Details Date Type Department Care Team (Late st Contact Info) Description 02/28/2024 Telephone Hematology/Oncology [facility] [address] [place] [facility] [place] [address] Palak Cast MD [address] [place] [address] Precert Future (Zirabev/Lomustine) Allergies No [...] below 140/90,Ischemic cardiomyopathy,Coron christiane artery disease involving manzanita coronary artery of manzanita heart without angina pectoris,Dyslipidemi a, goal LDL [...] suspected opioid overdose. Seek medical help immediately. http://Videofropper.be/ [email or web address] 1 mL 3 11/18/2023 Active Naloxone HCl 4 MG/0.1ML Nasal Liquid (Narcan Nasal) Administer 1 spray into 1 nostril for suspected opioid overdose. Seek immediate medical attention. https://www.Snaptalent.com/watch?v= [email or web address] 1 Each 3 11/18/2023 Active Ondansetron HCl [...] received, plan built and routed. Awaiting authorization. MTM- please see orders for Lomustine and create plan. Thank you. -Chemo Consent: Needs Completed -Chemo Education: Needs Scheduled -Port Placement: TBD -Standing Lab orders placed: CBCD,CMP,UA -Medications Pended: None -Hep B Labs: Completed 02/28/24 documented in this encounter Plan of Treatment Upcoming Encounters Date Type Department Care Team (Late st Contact Info) Description 06/19/2024 11:15 AM EDT [facility] [address] [place] [address] Clinic, Brain Tumor Multidisciplinary [address] [place] [address] 06/28/2024 9:50 AM EDT Office Visit [facility] [address] [place] [phone] Luz Maria Gama DO [address] [place] [address] Scheduled Orders Name Type Priority Associated Diagnoses [...] Documents on File Type Date Recorded 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 No * Full Code Date Activated Date [...] Care Agent (per Health Care Power of Event Organizer document) Care Teams Director Of Athletics Relationship Specialty Start Date End Date Luz Maria Gama DO [address] [place] [address] PCP - General Family Medicine 01/04/23 documented as of this encounter
--- OUTSIDE RECORDS SUMMARY | 2024-05-06 15:35 | External Medical Summary | Summary of Care ---
Author Name Unknown Organization [facility] Address [address] [facility] [place] [address] Phone [phone] Care Team Providers Care Zinc Plate Grainer Name Role Phone Luz Maria Gama DO Primary Care Provider Reason for Visit * Reason Onset Date Comments Advice 02/25/2024 Encounter Details Date Type Department Care Team (Late st Contact Info) Description 02/25/2024 Telephone Sleep Disorders, [facility] [address] [place] [address] [facility], Nurse Sleep Disorders [address] [place] [address] Advice Allergies No known active allergiesdocumented as of this encounter (statuses as of 02/25/2024) Medications Medication Sig Dispensed Refills Start Date [...] below 140/90,Ischemic cardiomyopathy,Beltrán ry artery disease involving paiute-shoshone coronary artery of paiute-shoshone heart without angina pectoris,Dyslipidemia , goal LDL [...] suspected opioid overdose. Seek medical help immediately. http://ideacts innovationsu.be/ [email or web address] 1 mL 3 11/18/2023 Active Naloxone HCl 4 MG/0.1ML Nasal Liquid (Narcan Nasal) Administer 1 spray into 1 nostril for suspected opioid overdose. Seek immediate medical attention. https://www.Plasticell.com/watch?v= [email or web address] 1 Each 3 11/18/2023 Active Ondansetron HCl 8 MG Oral Tablet (Zofran)Indications:N ausea Take 1 Tablet by mouth every 8 [...] 01/10/2024 Active levETIRAcetam 500 MG Oral Tablet (Keppra)Indications:B rain tumor (HCC),Brain mass Take 1 Tablet by mouth in the morning and 1 Tablet before bedtime. 60 Tablet 2 01/11/2024 Active busPIRone HCl 10 MG Oral Tablet (Buspar)Indications:A nxiety state Take 1 Tablet by mouth 2 times a day as needed for Agitation or Anxiety. 60 Tablet 2 01/31/2024 Active Aspirin 81 MG Oral Tablet ChewableIndications:I schemic cardiomyopathy Take 1 Tablet by mouth in the morning. 30 Tablet 11 02/08/2024 Active Morphine Sulfate ER 30 MG Oral Tablet Extended Release (Ms Contin)Indications:Ca [...] 02/08/2024 Active Sennosides 8.6 MG Oral Tablet (Senokot)Indications: Constipation due to pain medication Take 2 Tablets by mouth at bedtime. 60 Tablet 02/08/2024 Active documented as of this encounter (statuses as of 02/25/2024) Active Problems Problem Noted Date Diagnosed Date [...] as of this encounter (statuses as of 02/25/2024) Resolved Problems Problem Noted Date Diagnosed Date [...] as of this encounter (statuses as of 02/25/2024) Immunizations Name Administration Dates Next Due COVID-19 [...] encounter Miscellaneous Notes * Telephone Encounter - Luisa Collins OSA - 02/25/2024 8:46 AM EDT Livia from [facility] called requesting a new script for a CPAP machine. Patient is new to [facility] and they need a new order to get him a machine. [facility] is also requesting office notes and previous sleep study to be faxed to [phone]. Thank you! documented in this encounter Plan of Treatment Upcoming Encounters Date Type Department Care Team (Late st Contact Info) Description 02/28/2024 11:15 AM EDT Office Visit [address] [address] Clinic, Brain Tumor Multidisciplinary [address] [place] [facility] [place] [address] 03/31/2024 9:00 AM EDT Office Visit Neurology [facility] J[facility] [place] [address] [place] [address] Micaela Jinatony Krysta, DO [address] [place] [facility] [place] [address] 06/28/2024 9:50 AM EDT Office Visit [facility] [address] [place] [facility] [place] [phone] Luz Maria Gama, [address] [place] [address] Scheduled Procedures Name Priority Associated Diagnoses Date/Ti [...] Documents on File Type Date Recorded 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 Question Answer Comments Discussion of Advance Direct linda occurred with: Not Discussed due to patient's condition Does the patient have a Living Will? No Does the patient have Health Care Power of Paralegal Legal Secretary? No * Full Code Date Activated Date [...] Discussion of Advance Directives occurred with: Patient Care Teams Zinc Plate Grainer Relationship Specialty Start Date End Date Luz Maria Gama DO [address] [facility] [place] [address] PCP - General Family Medicine 01/04/23 documented as of this encounter
--- OUTSIDE RECORDS SUMMARY | 2024-05-06 15:35 | External Medical Summary ---
Author Name Unknown Address Unknown Organization K01:[facility] - [address] [facility] [address] [place] [address] Laboratory Report Ordering Provider Test Date Status BRIANNA VELAZQUEZ 02/28/2024 12:16:17 Final Observation Date Value Abnormality Reference (Units ) Status BUN 02/28/2024 12:16:17 10 6-20 (mg/dL) Final Creatinine 02/28/2024 12:16:17 1.1 0.6-1.2 (mg/dL) Final Glomerular filtration rate/1.73 sq M.predicted [Volume Rate/Area] in Serum, Plasma or Blood by Creatinine-based formula (CKD-EPI) 02/28/2024 12:16:17 76 >=60 (mL/min) Final eGFR is calculated based on the CKD-EPI 2020 equation Sodium 02/28/2024 12:16:17 138 135-146 (m mol/L) Final Potassium 02/28/2024 12:16:17 3.8 3.5-5.1 (m mol/L) Final Cl 02/28/2024 12:16:17 102 98-107 (mm ol/L) Final CO2 02/28/2024 12:16:17 25 22-32 (mmo l/L) Final Anion gap 02/28/2024 12:16:17 11 7-15 (mmol /L) Final Glucose 02/28/2024 12:16:17 111 70-120 (mg /dL) Final Albumin 02/28/2024 12:16:17 4.3 3.8-5.0 (g /dL) Final AST (Aspartate aminotransferase) 02/28/2024 12:16:17 33 10-50 (U/L) Final Alk Phos 02/28/2024 12:16:17 88 35-130 (U/ L) Final Bilirubin, Total 02/28/2024 12:16:17 0.5 <=1 .2 (mg/dL) Final Calcium 02/28/2024 12:16:17 10.0 8.4-10.2 ( mg/dL) Final Protein 02/28/2024 12:16:17 6.8 6.0-8.3 (g /dL) Final ALT (Alanine aminotransferase) 02/28/2024 12:16:17 46 10-50 (U/L) Final Performing Location LABORATORY [facility] [place] - [address] [facility] [address]
--- OUTSIDE RECORDS SUMMARY | 2024-05-06 15:35 | External Medical Summary | Summary of Care ---
Author Name Unknown Organization [facility] Address [address] [place] [address] Phone [phone] Care Team Providers Care Airport Operations Supervisor Name Role Phone Luz Maria Gama DO Primary Care Provider Reason for Visit * Reason Onset Date Comments Nurse Documentation 02/25/2024 Advance Care Planning/ [employer]ices Encounter Details Date Type Department Care Team (Late st Contact Info) Description 02/25/2024 Telephone Care Coordination [address] [place] [address] Shelley Guzman, LJ Nurse Documentation (Advance Care Planning... Allergies No known active allergiesdocumented as of [...] below 140/90,Ischemic cardiomyopathy,Beltrán ry artery disease involving [place] coronary artery of [place] heart without angina pectoris,Dyslipidemia , goal LDL [...] suspected opioid overdose. Seek medical help immediately. [email or web address] 1 mL 3 11/18/2023 Active Naloxone HCl 4 MG/0.1ML Nasal Liquid (Narcan Nasal) Administer 1 spray into 1 nostril for suspected opioid overdose. Seek immediate medical attention. https://www.Symmetric Computing.com/watch?v= [email or web address] 1 Each 3 11/18/2023 Active Ondansetron HCl [...] as of this encounter Miscellaneous Notes * ACP (Advance Care Planning) - Shelley Guzman LPN - 02/25/2024 9:30 AM EDT Advance Care Planning Advance Directive Monthly Scanning Chart Audit [facility] QA Review of Advance Directives Scanned to Chart Document reviewed is Advance Directive Living Will scan on 11/05/2023 is invalid due to missing pages 6,8. Additional comments: Will contact patient to obtain complete document. Changes made in Pantry Worker to clarify Document Type and/or placement in ACP Documents display. LJ Parkinson[employer]ices Community Support Specialist General Email: [email or web address] General documented in this encounter Plan of Treatment Upcoming Encounters Date Type Department Care Team (Late st Contact Info) Description 02/28/2024 11:15 AM EDT Office Visit Neurosurgery, [place] [address] [place] [address] Clinic, Brain Tumor Multidisciplinary [address] [place], [place] [phone] 03/31/2024 9:00 AM EDT Office Visit Neurology [place] [address] [place] [place] [address] Mariama Hinojosa, DO [address] [place] [address] 06/28/2024 9:50 AM EDT Office Visit Family [facility] [address] [place] [address] Luz Maria Gama, [address] [place] [address] Scheduled Procedures Name Priority Associated [...] Documents on File Type Date Recorded Patient Assembler Molded Frames Expl anation POLST 12/03/2023 9:15 AM sign date 12/01/2023 [...] the patient have Health Care Power of Apprentice Jockey? No * Full Code Date Activated Date [...] Advance Directives occurred with: Patient Care Teams Airport Operations Supervisor Relationship Specialty Start Date End Date Luz Maria Gama DO [address] [place] [address] PCP - General Family Medicine 01/04/23 documented as of this encounter
--- OUTSIDE RECORDS SUMMARY | 2024-05-06 15:35 | External Medical Summary ---
Author Name Unknown Address Unknown Organization K01:LABORATORY [facility] [place] - [address] [facility] [address] Laboratory Report Ordering Provider Test Date Status BRIANNA VELAZQUEZ 02/28/2024 12:16:17 Final Observation Date Value Abnormality Reference (Units ) Status Hep B surface Ag 02/28/2024 12:16:17 Negative Neg ative Final Performing Location [facility]ORY [facility] [place] - [address] [place] [address]
--- OUTSIDE RECORDS SUMMARY | 2024-05-06 15:35 | External Medical Summary ---
Author Name Unknown Address Unknown Organization K01:LABORATORY [facility] [place] - [address] [place] [address] Laboratory Report Ordering Provider Test Date Status LANDON LYON 02/28/2024 12:16:17 Final Observation Date Value Abnormality Reference (Units ) Status MYCODE SPECIMEN-SST 02/28/2024 12:16:17 Freezing of extracted DNA, whole blood and/or serum. Final Performing Location LABORATORY [facility] [place] - [address] [place] [address]
--- OUTSIDE RECORDS SUMMARY | 2024-05-06 15:35 | External Medical Summary | Summary of Care ---
Author Name Unknown Organization [facility] Address [address] [place] [address] Phone [phone] Care Team Providers Care Test Center Administrator Name Role Phone Luz Maria Gama DO Primary Care Provider Reason for Visit * Reason Onset Date Comments Test Results 02/22/2024 Unexpected or In determinate Result Encounter Details Date Type Department Care Team (Late st Contact Info) Description 02/22/2024 Telephone Radiology [address] [place] [address] Louis Souza IV, PA-C [address] [place] [address] Test Results (Unexpected or Indeterminate ... Allergies No known active allergiesdocumented as of this encounter (statuses as of 02/22/2024) Medications Medication Sig Dispensed Refills Start Date [...] below 140/90,Ischemic cardiomyopathy,Beltrán ry artery disease involving [place] coronary artery of [place] heart without angina pectoris,Dyslipidemia , goal LDL [...] suspected opioid overdose. Seek medical help immediately. [email or web address] 1 mL 3 11/18/2023 Active Naloxone HCl 4 MG/0.1ML Nasal Liquid (Narcan Nasal) Administer 1 spray into 1 nostril for suspected opioid overdose. Seek immediate medical attention. https://www.SignalFuse.com/watch?v= [email or web address] 1 Each 3 11/18/2023 Active Ondansetron HCl [...] as of this encounter (statuses as of 02/22/2024) Active Problems Problem Noted Date Diagnosed Date [...] CX OM3 on 08/16/2015 Former smoker 08/17/2015 [place] 01/10/2014 documented as of this encounter (statuses as of 02/22/2024) Resolved Problems Problem Noted Date Diagnosed Date [...] as of this encounter (statuses as of 02/22/2024) Immunizations Name Administration Dates Next Due COVID-19 [...] encounter Miscellaneous Notes * Telephone Encounter - Roxane Jarquin OSA - 02/22/2024 5:53 PM EDT Hello- The radiologist discovered an unexpected or indeterminate finding on Remy Lujan ([id number]) and asks that you review the following report. 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 Study Type:MRI NEURO 3-D RECONSTRUCTION Date of Study: 02/22/2024 Please respond to this encounter to acknowledge receipt of this message and take responsibility to ensure this report is reviewed. Thank you, ALEKSANDR [facility] documented in this encounter Plan of Treatment Upcoming Encounters Date Type Department Care Team (Late st Contact Info) Description 02/28/2024 11:15 AM EDT Office Visit Neurosurgery, [place] [address] [place] [address] Clinic, Brain Tumor Multidisciplinary [address] [place], [place] [phone] 06/28/2024 9:50 AM EDT Office Visit [facility] [address] [place] [phone] Luz Maria Gama, [address] [place] [address] 09/29/2024 1:00 PM EST Office Visit Neurology [facility] [address] [place] [address] Mariama Hinojosa [address] [place] [address] Scheduled Procedures Name Priority Associated Diagnoses Date/Ti [...] Documents on File Type Date Recorded Patient Stacker And Sorter Operator Expl anation POLST 12/03/2023 9:15 AM POLST [...] patient have Health Care Power of Manager Drive? No * Full Code Date Activated Date [...] Advance Directives occurred with: Patient Care Teams Test Center Administrator Relationship Specialty Start Date End Date Luz Maria Gama DO [address] [place] [address] PCP - General Family Medicine 01/04/23 documented as of this encounter
--- OUTSIDE RECORDS SUMMARY | 2024-05-06 15:35 | External Medical Summary ---
Author Name Unknown Address Unknown Organization K01[place] [place] [address] [place] [address] Laboratory Report Ordering Provider Test Date Status LANDON LYON 02/28/2024 12:16:17 Final Observation Date Value Abnormality Reference (Units ) Status MYCODE SPECIMEN-SST 02/28/2024 12:16:17 Freezing of extracted DNA, whole blood and/or serum. Final Performing Location [facility] [place] [address] [place] [address]
--- OUTSIDE RECORDS SUMMARY | 2024-05-06 15:35 | External Medical Summary | Summary of Care ---
Author Name Unknown Organization [facility] Address [address] [place] [address] Phone [phone] Care Team Providers Care Railroad Signal Technician Name Role Phone Luz Maria Gama DO Primary Care Provider [phone] Reason for Visit * Reason Comments Outpatient Testing Encounter Details Date Type Department Care Team (Late st Contact Info) Description 02/28/2024 1:20 PM EDT Laboratory Outpatient Laboratory, [place] [address] [place] [address] [place], Lab B[address] [address] [place] [address] [employer] Other*[id number] Allergies No known active allergiesdocumented as of [...] suspected opioid overdose. Seek medical help immediately. [email or web address] 1 mL 3 11/18/2023 Active Naloxone HCl 4 MG/0.1ML Nasal Liquid (Narcan Nasal) Administer 1 spray into 1 nostril for suspected opioid overdose. Seek immediate medical attention. https://www.[employer]ara Biotherapeutics.com/watch?v= [email or web address] 1 Each 3 11/18/2023 Active Ondansetron HCl [...] 03/31/2024 9:00 AM EDT Office Visit Neurology [facility] [place] [address] [place] [address] Mariama Hinojosa DO [address] [place] [address] 06/19/2024 11:15 AM EDT Office Visit Neurosurgery, [place] [address] [place] [address] Clinic, Brain Tumor Multidisciplinary [address] [place] [address] 06/28/2024 9:50 AM EDT Office Visit [place] [address] [facility] [place] [phone] Luz Maria Gama, DO [address], [place] [phone] Scheduled Orders Name Type Priority Associated Diagnoses Orde r Schedule MYCODE SST1 Lab Routine [facility] Other*[id number] Ordered: 02/28/2024 MYCODE SST2 Lab Routine [facility] Other*[id number] Ordered: 02/28/2024 Scheduled Procedures Name Priority Associated Diagnoses Date/Ti [...] as of this encounter Visit Diagnoses Diagnosis [facility] Other*[id number] documented in this encounter Advance Directives Documents on File Type Date Recorded Patient Property Handler Expl anation Advance Directives and Living Will 02/25/2024 Candi Mulligan signed on 11/06/2023 ADVANCE DIRECTIVE / LIVING WILL COMBINED LIVING WILL & HEALTH CARE POWER OF IMPORTER OR EXPORTER POLST 12/03/2023 9:15 AM sign date 12/01/2023 [...] the patient have Health Care Power of Striker Off? No * Full Code Date Activated Date [...] Care Agent (per Health Care Power of Striker Off document) Care Teams Railroad Signal Technician Relationship Specialty Start Date End Date Luz Maria Gama DO [address] [place] [address] PCP - General Family Medicine 01/04/23 documented as of this encounter
--- OUTSIDE RECORDS SUMMARY | 2024-05-06 15:35 | External Medical Summary | Summary of Care ---
Author Name Unknown Organization [facility] Address [address] [place] [address] Phone [phone] Care Team Providers Care Costume Shop Coordinator Name Role Phone Luz Maria Gama DO Primary Care Provider Reason for Visit * Reason Onset Date Comments Nurse Documentation 02/25/2024 Requested RT completion note. Encounter Details Date Type Department Care Team (Late st Contact Info) Description 02/25/2024 Telephone Neurology, [place] [address] [place] [address] Clinic, Brain Tumor Multidisciplinary [address], [place] [phone] Nurse Documentation (Requested RT completi... Allergies No known active allergiesdocumented as of [...] below 140/90,Ischemic cardiomyopathy,Beltrán ry artery disease involving [place] coronary artery of false pass heart without angina pectoris,Dyslipidemia , goal LDL [...] suspected opioid overdose. Seek medical help immediately. [email or web address] 1 mL 3 11/18/2023 Active Naloxone HCl 4 MG/0.1ML Nasal Liquid (Narcan Nasal) Administer 1 spray into 1 nostril for suspected opioid overdose. Seek immediate medical attention. https://www.PandaDoc.com/watch?v= h41hCqs7NqU 1 Each 3 11/18/2023 Active Ondansetron HCl [...] encounter Miscellaneous Notes * Telephone Encounter - Yesenia Herrera LPN - 02/25/2024 10:35 AM EDT Called [facility] [place] no answer, left message requesting that they fax the radiation treatment completion note of 01/24/24 to [phone] [facility] and we need to review the note. Requested that they call me at [phone] with any questions regarding this matter. documented in this encounter Plan of Treatment Upcoming Encounters Date Type Department Care Team (Late st Contact Info) Description 02/28/2024 11:15 AM EDT Office Visit Neurosurgery, [place] [address] [place] [address] Clinic, Brain Tumor Multidisciplinary [address] [place] [address] 03/31/2024 9:00 AM EDT Office Visit Neurology [facility] [place] [address] [place] [address] Mariama Hinojosa, DO [address] [place] [address] 06/28/2024 9:50 AM EDT Office Visit [facility] [address] [place] [phone] Luz Maria Gama [address], [place] [phone] Scheduled Procedures Name Priority Associated Diagnoses Date/Ti [...] Documents on File Type Date Recorded Patient Adult Secondary Education Instructor Expl anation POLST 12/03/2023 9:15 AM sign [...] the patient have Health Care Power of Hospital Staff Pharmacist? No * Full Code Date Activated Date [...] Advance Directives occurred with: Patient Care Teams Costume Shop Coordinator Relationship Specialty Start Date End Date Luz Maria Gama DO [address] [place] [facility] [place] [address] PCP - General Family Medicine 01/04/23 documented as of this encounter
--- OUTSIDE RECORDS SUMMARY | 2024-05-06 15:35 | External Medical Summary | Summary of Care ---
Author Name Unknown Organization [facility] Address [address] [place] [address] Phone [phone] Care Team Providers Care Mud Car Worker Name Role Phone Luz Maria Gama DO Primary Care Provider Reason for Visit * Reason Onset Date Comments TRIAGE 11/19/2023 Encounter Details Date Type Department Care Team (Late st Contact Info) Description 11/19/2023 Telephone [facility], [place] [address] [place] [address] Services, [facility] [address] [place] [address] TRIAGE Allergies No known active allergiesdocumented as of this encounter (statuses as of 02/25/2024) Medications Medication Sig Dispensed Refills Start Date End Date Status nitroglycerin (NITROSTAT) 0.[address] 1 Tab under the tongue every 5 minutes as needed for Pain, Chest. 90 Tab 12 08/17/20 15 Active buPROPion HCl ER (SR) 150 MG Oral Tablet Extended Release 12 Hour (Wellbutrin SR)Indications:Adj ustment disorder with depressed mood Take 1 tab by mouth twice per day 180 Tablet 1 06/24/20 23 Active Metoprolol Succinate ER 25 MG Oral Tablet Extended Release 24 Hour (toPROL XL)Indications:HTN , goal below 140/90,Ischemic cardiomyopathy,Cor onary artery disease involving [place] coronary artery of [place] heart without angina pectoris,Dyslipide kavon, goal LDL below 100,Essential hypertension with goal blood pressure less than 140/90 Take 1 Tablet by mouth in the morning. 90 Tablet 06/24/20 23 Active Lisinopril 20 MG Oral Tablet (Prinivil)Indicati ons:HTN, goal below 140/90 Take 1 Tablet by mouth in the morning. 90 Tablet 3 11/04/19 24 Active CPAP every night at bedtime. Active Naloxone HCl 0.4 MG/ML Injection Solution (Narcan)Indication s:Brain tumor (HCC),Brain mass Inject 1mL into a large muscle for suspected opioid overdose. Seek medical help immediately. [email or web address]/ [email or web address] 1 mL 11/18/19 24 Active Naloxone HCl 4 MG/0.1ML Nasal Liquid (Narcan Nasal) Administer 1 spray into 1 nostril for suspected opioid overdose. Seek immediate medical attention. https://www.K[employer].com/watch?v= [email or web address] 1 Each 11/18/19 24 Active aspirin 81 MG chewable tablet Take 1 Tab by mouth daily. 30 Tab 11 08/17/20 15 024 Discontinued(Re fill) Doxycycline Monohydrate 50 MG Oral CapsuleIndications :Rosacea Take 1 capsule by mouth once daily 90 Capsule 1 06/24/20 23 024 Discontinued(Re fill) Sennosides 8.6 MG Oral Tablet (Senokot) Take 2 Tablets by mouth in the morning and 2 Tablets before bedtime. 60 Tablet 11/18/19 24 024 Discontinued(Re fill) dexAMETHasone 2 MG Oral Tablet (Decadron) Take 2 Tablets by mouth 2 times a day with morning and evening meals for 1 day, THEN 1 Tablet 2 times a day with morning and evening meals for 3 days. 10 Tablet 11/18/19 24 024 Discontinued Famotidine 20 MG Oral Tablet (Pepcid) Take 1 Tablet by mouth in the morning and 1 Tablet before bedtime. 60 Tablet 11/18/19 24 024 Discontinued levETIRAcetam 500 MG Oral Tablet (Keppra)Indication s:Brain tumor (HCC),Brain mass Take 1 Tablet by mouth in the morning and 1 Tablet before bedtime. 60 Tablet 11/18/19 24 024 Discontinued(Re fill) Morphine Sulfate ER 15 MG Oral Tablet Extended Release (Ms Contin) Take 1 Tablet by mouth in the morning and 1 Tablet at noon and 1 Tablet before bedtime. 20 Tablet 11/18/19 24 024 Discontinued(Re fill) Ondansetron 4 MG Oral Tablet Disintegrating (Zofran) Place 1 Tablet on tongue every 8 hours as needed for Nausea. Dissolve on tongue. 20 Tablet 11/18/19 24 024 Discontinued(Me dication/Dose Changed) Morphine Sulfate 10 MG/5ML Oral Solution Take 2.5 mL by mouth every 8 hours as needed for moderate, severe or breakthrough pain. 100 mL 11/18/19 24 024 Discontinued documented as of this encounter (statuses [...] mRNA, LNP-s, No Pre serve, 2-Dose Series ([employer]) 12/02/2020,10/28/2020 Pneumococcal Polysaccharide PPV23 (Pneumovax) Seasonal Influenza, [...] Encounter - Yesenia Herrera LPN - 02/25/2024 10:26 AM EDT Called [facility] no answer, left message requesting they fax radiation therapy completion note to [phone] as patient has an appointment on 02/28/24 and we need the report. I also stated that they may call [phone] with any questions regarding this matter. * Telephone Encounter - Yesenia Herrera LPN - 11/22/2023 1:19 PM EST Called [facility] spoke with Abby Informed her that patient's insurance is P Family, last week when I sent information to them his chart showed [employer] as primary insurance. I also stated that the MGMT results are available. She stated that she spoke with Brittanie and she asked that I fax the copy of the card along with theresults to them. She also took the [facility] Family ID number over the phone. I thanked her. Faxed above information as requested and asked that they call back if they do not accept the patient's insurance. * Telephone Encounter - Yesenia Herrera LPN - 11/22/2023 7:36 AM EST Out of order: Called [facility] Hematology [facility] spoke with Brittanie rn clinical coordinator. Informed her that we would like to refer patient with GBM for appt. MART. She requested I fax referral along with records and demographic information to [phone] and have imaging sent to them. She stated the records will be reviewed and they will have to check insurance to see if they accept it. I stated that I will do that right away and thanked her. Called [facility] Radiation Oncology spoke with Janis. Informed her that we would like to refer patient with GBM for appt. MART. She requested I fax referral along with records and demographic information to [phone] and have imaging sent to them. I stated that I will do that right away and thanked her. Successfully faxed records to both [facility] Hematology Oncology and Radiation Oncology as requested. Called [facility] spoke with Jesenia requested she push all head and neck imaging from 11/05/23 to present to [facility]. She stated that she will do that. I thanked her. * Telephone Encounter - Yesenia Herrera LPN - 11/19/2023 2:21 PM EST Called [facility] Verified patient's identity by spelling of last name and date. Informed her that the protocol for the first post op visit is for the patient to be seen in person for a wound check. She stated that is not doable. He was literally seen yesterday before he was discharged from the hospital and there is no reason to see him in 2 days. She stated that it is a [address] She asked doesn't our surgeon come up to [place]. I stated no he does not. She stated that coming to [place] on Wednesday is not doable. I messaged Louis Souza PA-C and he stated that as the surgical site was closed with absorbables and they are refusing to come in person and they have good audio/video capability it will have to be okay to have a video visit. I asked [facility] if they have good video/audio capability. She stated yes his computer is has good video capability. I stated that it is okay to do the video visit. I confirmed the email to send the link to is [email or web address]. I also informed her that the email containing the link for the visit will come from [email or web address]. I stated that about 10 minutes prior to the visit time he should click onthe link in the email and that will take him into the virtual waiting room. When the doctors are ready they will start the visit. She stated that she understands and asked if we could call her to be included in the visit as she will not be there. I stated that if Remy has a cell phone he can call her and she can listen in while the visit is going on. She stated they will do that. I confirmed that he is scheduled for home video visit on Wednesday11/22/23 at 9:15 am. She stated he will ready. I also confirmed that they are okay to receive radiation and chemo at [facility] as that is about 20 miles away from where he lives. * Telephone Encounter - Salina Mccauley RN - 11/19/2023 12:31 PM EST I believe this is also a post op appointment and provider would still like for patient to be seen in [facility] to close the loop even if they are going to follow elsewhere. It can be telemed. * Telephone Encounter - Kecia Earl OSA - 11/19/2023 7:45 AM EST Neuroscience Phone Call Form- Clinic has 24-48 hours to respond to caller If caller is calling back before that timeframe- There is no need to send another message to the pool, update current TE [facility] Neurology Pool- All messages go through the [facility] Neuro Chore Tender- [id number] Neurology Pool Numbers- [place] and [place] patients - follow normal process Ops req C Neurology ([place])- [id number] Ops req NE Neurology ([place]- [facility] and [facility] clinics Only)- [id number] Neurosurgery Pool Numbers- [place] patients- follow normal process Ops req Neurosurgery [facility] ([place])- [id number] Ops req Neurosurgery [facility] ([place] Only) [id number] Requested Information from caller: Who is calling (not pt) name: [facility]i relationship: caregiver Provider patient is established with: brain tumor clinic What is the concern or issue they are having: pt caregiver is asking if appt on 11/21 could be changed to a video because its a 2hr drive for them one way to [place] please advise How long has the issue been going on: n/a Any additional details to add: no phone number for nurse to call back: [phone] Please make sure you verify pharmacy for anything medication related. Form to be used for established patients only (not new patients) documented in this encounter Plan of Treatment Upcoming Encounters Date Type Department Care Team (Late st Contact Info) Description 02/28/2024 11:15 AM EDT Office Visit Neurosurgery, [place] [address] [facility] [place] [address] Clinic, Brain Tumor Multidisciplinary [address] [place] [facility] [place] [address] 03/31/2024 9:00 AM EDT Office Visit Neurology [facility] [place] [address] [place] [address] Mariama Hinojosa DO [address] [facility] [address] 06/28/2024 9:50 AM EDT [facility] [address] [facility] [address] Luz Maria Gama DO [address] [facility] [id number] Scheduled Procedures Name Priority Associated Diagnoses Date/Ti [...] Documents on File Type Date Recorded Patient Proposal Lead Writer Expl anation POLST 12/03/2023 9:15 AM sign [...] the patient have Health Care Power of Sulfonator Operator? No * Full Code Date Activated [...] Advance Directives occurred with: Patient Care Teams Mud Car Worker Relationship Specialty Start Date End Date Luz Maria Gama DO [address] [place] [address] PCP - General Family Medicine 01/04/23 documented as of this encounter
--- OUTSIDE RECORDS SUMMARY | 2024-05-06 15:35 | External Medical Summary | Summary of Care ---
Author Name Unknown Organization [facility] Address [address] [place] [address] Phone [phone] Care Team Providers Care Metal Melter Name Role Phone Luz Maria Gama DO Primary Care Provider Encounter Details Date Type Department Care Team (Late st Contact Info) Description 02/25/2024 Telephone Sleep Disorders, [facility] [address] [place] [address] Holly Caal MD [address] [place] [address] Allergies No known active allergiesdocumented [...] below 140/90,Ischemic cardiomyopathy,Beltrán ry artery disease involving [place] coronary artery of [place] heart without angina pectoris,Dyslipidemia , goal LDL [...] suspected opioid overdose. Seek medical help immediately. [email or web address] -[email or web address] 1 mL 3 11/18/2023 Active Naloxone HCl 4 MG/0.1ML Nasal Liquid (Narcan Nasal) Administer 1 spray into 1 nostril for suspected opioid overdose. Seek immediate medical attention. https://www.dot429.com/watch?v= [email or web address] 1 Each 3 11/18/2023 Active Ondansetron HCl [...] encounter Miscellaneous Notes * Telephone Encounter - Sue Mckeon OSA - 02/25/2024 10:53 AM EDT CPAP order entered in [facility]. documented in this encounter Plan of Treatment Upcoming Encounters Date Type Department Care Team (Late st Contact Info) Description 02/28/2024 11:15 AM EDT Office Visit Neurosurgery, [place] [address] [place] [address] Clinic, Brain Tumor Multidisciplinary [address] [place] [address] 03/31/2024 9:00 AM EDT Office Visit Neurology Garry Jaffe [place] [address] [place] [address] Mariama Hinojosa Krysta, DO [address] [place] [facility] [place] [address] 06/28/2024 9:50 AM EDT Office Visit [facility] [address] [place] [id number] Luz Maria Gama, DO [address] [place], [place] [phone] Scheduled Procedures Name Priority Associated Diagnoses Date/Ti [...] Documents on File Type Date Recorded Patient Manager Fine Dining Expl anation POLST 12/03/2023 9:15 AM sign [...] the patient have Health Care Power of Glove Former? No * Full Code Date Activated Date [...] Advance Directives occurred with: Patient Care Teams Metal Melter Relationship Specialty Start Date End Date Luz Maria Gama DO [address] [place] [address] PCP - General Family Medicine 01/04/23 documented as of this encounter
--- OUTSIDE RECORDS SUMMARY | 2024-05-06 15:35 | External Medical Summary | Summary of Care ---
Author Name Unknown Organization [facility] Address [address] [place] [address] Phone [phone] Care Team Providers Care Platinumsmith Name Role Phone Luz Maria Gama DO Primary Care Provider Reason for Visit * Reason Onset Date Comments Test Results 02/22/2024 Unexpected or In determinate Result Encounter Details Date Type Department Care Team (Late st Contact Info) Description 02/22/2024 Telephone Radiology [address] [place] [address] Louis Souza IV, PA-C [address] [place] [address] Test Results (Unexpected or Indeterminate ... 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 Seek medical help immediately. [email or web address]/ [email or web address] 1 mL 3 11/18/2023 Active Naloxone HCl 4 MG/0.1ML Nasal Liquid (Narcan Nasal) Administer 1 spray into 1 nostril for suspected opioid overdose. Seek immediate medical attention. https://www.2Vancouver.com/watch?v= [email or web address] 1 Each 3 11/18/2023 Active Ondansetron HCl [...] as of this encounter (statuses as of 02/23/2024) Active Problems Problem Noted Date Diagnosed Date [...] as of this encounter (statuses as of 02/23/2024) Resolved Problems Problem Noted Date Diagnosed Date [...] as of this encounter (statuses as of 02/23/2024) Immunizations Name Administration Dates Next Due COVID-19 [...] encounter Miscellaneous Notes * Telephone Encounter - Louis Souza IV, PA-C - 02/23/2024 2:47 PM EDT Acknowledged. Will be discussed with him in person at [facility] next Wednesday. Louis Souza IV, PA-C * Telephone Encounter - Yesenia Herrera LPN - 02/23/2024 8:07 AM EDT TT sent to Louis Souza PA-C making him aware of encounter. * Telephone Encounter - Roxane Jarquin OSA - 02/22/2024 5:53 PM EDT Ras- The radiologist discovered an unexpected or indeterminate finding on Remy Lujan ([id number]) and asks that you review the following [...] reviewed. Thank you, ALEKSANDR Otero Client Service Rep [facility] documented in this encounter Plan of Treatment Upcoming Encounters Date Type Department Care Team (Late st Contact Info) Description 02/28/2024 11:15 AM EDT Office Visit Neurosurgery, [place] [address] [place] [address] Clinic, Brain Tumor Multidisciplinary [address] [place] [address] 03/31/2024 9:00 AM EDT Office Visit Neurology [facility] [address] [place] [address] Mariama Hinojosa, [address] [place] [address] 06/28/2024 9:50 AM EDT Office Visit [facility] [address] [place] [id number] Luz Maria Gama DO [address] [place], [place] [phone] Scheduled Procedures Name Priority Associated Diagnoses Date/Ti [...] Documents on File Type Date Recorded Patient Logistics Coordinator Expl anation POLST 12/03/2023 9:15 AM POLST [...] the patient have Health Care Power of Shoe Fitter? No * Full Code Date Activated Date [...] Advance Directives occurred with: Patient Care Teams Platinumsmith Relationship Specialty Start Date End Date Luz Maria Gama DO [address] [address] PCP - General Family Medicine 01/04/23 documented as of this encounter
--- OUTSIDE RECORDS SUMMARY | 2024-05-06 15:35 | External Medical Summary | Summary of Care ---
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 Seek medical help immediately. [email or web address]/ [email or web address] 1 mL 3 11/18/2023 Active Naloxone HCl 4 MG/0.1ML Nasal Liquid (Narcan Nasal) Administer 1 spray into 1 nostril for suspected opioid overdose. Seek immediate medical attention. https://www.[employer].com/watch?v= [email or web address] 1 Each 3 11/18/2023 Active Ondansetron HCl [...] an unexpected or indeterminate finding on Remy Cash Lujan ([id number]) and asks that you review the following [...] Thank you, ALEKSANDR Otero Client Service Rep [facility] documented in this encounter Plan of Treatment Upcoming Encounters Date Type Department Care Team (Late st Contact Info) Description 02/28/2024 11:15 AM EDT Office Visit Neurosurgery, [place] [address] [place] [address] Clinic, Brain Tumor Multidisciplinary [address], [place] [phone] 06/28/2024 9:50 AM EDT Office Visit [place] [address] [place] [address] Luz Maria Gama, [address] [place] [address] 09/29/2024 1:00 PM EST Office Visit Neurology [facility] [address] [place] [address] Mariama Hinojosa, [address] [place], [place] [phone] Scheduled Procedures Name Priority Associated Diagnoses Date/Ti [...] Documents on File Type Date Recorded Patient Window Glass Installer Expl anation POLST 12/03/2023 9:15 AM POLST [...] the patient have Health Care Power of Children'S Tutor Nursery? No * Full Code Date Activated Date [...] Advance Directives occurred with: Patient Care Teams Office Aide Relationship Specialty Start Date End Date Luz Maria Gama DO [address] [place] [address] PCP - General Family Medicine 01/04/23 documented as of this encounter
--- OUTSIDE RECORDS SUMMARY | 2024-05-06 15:35 | External Medical Summary ---
Author Name Unknown Address Unknown Organization K01:[facility] - [address] [place] [address] Laboratory Report Ordering Provider Test Date Status BRIANNA VELAZQUEZ 02/28/2024 12:16:17 Final Observation Date Value Abnormality Reference (Units ) Status Hepatitis B virus core Ab [Presence] in Serum 02/28/2024 12:16:17 Negative Negative Final Performing Location [facility] [address] [place] [place] [address]
--- OUTSIDE RECORDS SUMMARY | 2024-05-06 15:35 | External Medical Summary | Summary of Care ---
Author Name Unknown Organization [facility] Address [address] [facility] [address] Phone [phone] Care Team Providers Care Psychologist Educational Name Role Phone Luz Maria Gama DO Primary Care Provider Reason for Visit * Reason Onset Date Comments Advice 02/25/2024 Encounter Details Date Type Department Care Team (Late st Contact Info) Description 02/25/2024 Telephone Sleep Disorders, [facility] [address] [place] [address] [facility], Nurse Sleep Disorders [address] [place] [address] Advice Allergies No known active [...] below 140/90,Ischemic cardiomyopathy,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 Seek medical help immediately. [email or web address].be/ [email or web address] 1 mL 3 11/18/2023 Active Naloxone HCl 4 MG/0.1ML Nasal Liquid (Narcan Nasal) Administer 1 spray into 1 nostril for suspected opioid overdose. Seek immediate medical attention. https://www.Keepstream.com/watch?v= [email or web address] 1 Each 3 11/18/2023 Active Ondansetron HCl [...] as of this encounter Miscellaneous Notes * Addendum Note - Feli Francis MD - 02/25/2024 9:10 AM EDTAddended by: FELI FRANCIS on: 02/25/2024 09:10 AM Modules accepted: Orders * Telephone Encounter - Luisa Collins, ALEKSANDR - 02/25/2024 8:46 AM EDT Livia from [facility] called requesting a new script for a CPAP machine. Patient is new to [facility] and they need a new order to get him a machine. [facility] is also requesting office notes and previous sleep study to be faxed to [phone]. Thank you! documented in this encounter Plan of Treatment Upcoming Encounters Date Type Department Care Team (Late st Contact Info) Description 02/28/2024 11:15 AM EDT Office Visit Neurosurgery, [place] [address] [place], [place] [id number] Clinic, Brain Tumor Multidisciplinary [address] [place], [place] [id number] 03/31/2024 9:00 AM EDT Office Visit Neurology [facility] [address] [place] [address] Mariama Hinojosa [address] [place], [place] [address] 06/28/2024 9:50 AM EDT Office Visit [place] [address] [place] [phone] Luz Maria Gama [address] [place] [address] Scheduled Procedures Name Priority Associated Diagnoses Date/Ti [...] as of this encounter Visit Diagnoses Diagnosis ALEKSANDR (obstructive sleep apnea)- Primary Obstructive sleep apnea (adult) (pediatric) documented in this encounter Advance Directives Documents on File Type Date Recorded Patient Podiatric Technician Expl anation POLST 12/03/2023 9:15 AM POLST [...] the patient have Health Care Power of Nut Cracker? No * Full Code Date Activated Date [...] Advance Directives occurred with: Patient Care Teams Psychologist Educational Relationship Specialty Start Date End Date Luz Maria Gama DO [address] [place] [address] PCP - General Family Medicine 01/04/23 documented as of this encounter
--- OUTSIDE RECORDS SUMMARY | 2024-05-06 15:35 | External Medical Summary | Summary of Care ---
Author Name Unknown Organization [facility] Address [address] [place] [address] Phone [phone] Care Team Providers Care Claims Attorney Name Role Phone Luz Maria Gama DO Primary Care Provider Reason for Visit * Reason Onset Date Comments Nurse Documentation 02/25/2024 Advance Care Planning/ MyCareChoices Encounter Details Date Type Department Care Team (Late st Contact Info) Description 02/25/2024 Telephone Care Coordination [address], [place] [id number] Shelley Guzman LPN Nurse Documentation (Advance Care Planning... 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 Seek medical help immediately. [email or web address].be/ [email or web address] 1 mL 3 11/18/2023 Active Naloxone HCl 4 MG/0.1ML Nasal Liquid (Narcan Nasal) Administer 1 spray into 1 nostril for suspected opioid overdose. Seek immediate medical attention. https://www.[employer].ROLI/watch?v= [email or web address] 1 Each 3 11/18/2023 Active Ondansetron HCl [...] encounter Miscellaneous Notes * Addendum Note - Shelley Guzman LPN - 02/25/2024 2:51 PM EDTAddended by: SHELLEY GUZMAN on: 02/25/2024 02:51 PM Modules accepted: Orders * ACP (Advance Care Planning) - Shelley Guzman LPN - 02/25/2024 2:31 PM EDT Patient-centered Communication 02/25/2024 The patient/surrogate voluntarily agreed to participate in advance care planning discussion. They were advised that this is a separate service which may incur out of pocket cost in the form of copayment and/or deductibles. Location: Home via phone Individual(s) present for conversation: Significant Other Candi Decisions Synopsis SmartBroadLight Most Recent Value Past ~10 years 12/01/2023 12:36 Decisions CPR decision: Declines CPR 12/01/2023 Declines CPR Intubation/Mechanical Ventilation decision: Declines Intubation/mechanical ventilation 12/01/2023 Declines Intubation/mechanical ventilation Additional Comments Synopsis SmartBroadLight Most Recent Value Past ~10 years 02/25/2024 14:25 Additional Comments Additional Comments: Spoke with Candi patients partner, she has a completed 8 page Combined LivingWill and will email for scan to medical record. While speaking on phone document arrived. We were able to review document. The Living Will interventions indicate that he would want surgery, chemo, radiation, antibiotics in the 2 specific conditions of Living Will. Candi states that this document was completed prior to his brain surgery and "no one took the time to explain document and conditions". She states that he would not want those interventions in and end stage or permanently unconsciouscondition. She shares that Remy has diffculty speaking, and gets easily confused. I therefore do not recommend completing new document but engaging in conversations with his providers . Candi is his health care power of eligibility technician and per document does have final say in decisions. She will contactme with any questions or further conversation. 02/25/2024 Spoke with Candi patients partner, she has a completed 8 page Combined Living Will and will email for scan to medical record. While speaking on phone document arrived. We were able to review document. The Living Will interventions indicate that he would want surgery, chemo, radiation, antibiotics in the 2 specific conditions of Living Will. Candi states that this document was completedprior to his brain surgery and "no one took the time to explain document and conditions". She states that he would not want those interventions in and end stage or permanently unconscious condition. She shares that Remy has diffculty speaking, and gets easily confused. I therefore do not recommend completing new document but engaging in conversations with his providers . Candi is his health care power of eligibility technician and per document does have final say in decisions. She will contact me with anyquestions or further conversation. Discerning What Matters Most to the Patient: Synopsis Visiprise Most Recent Value Past ~10 years 12/01/2023 12:36 Discerning What Matters Most to the Patient Their current SYMPTOMS include: Pain 12/01/2023 Pain Source: Content from Respecting Choices Program Aligning Care With What Matters Most: Synopsis SmartLink Most Recent Value Past ~10 years 12/01/2023 12:36 Aligning Care With What Matters Most Interventions/Choices: Intubation/mechanical ventilation;CPR 12/01/2023 Intubation/mechanical ventilation;CPR Rationale for Decisions Source: Content from Respecting Choices Program 10 minutes spent in direct cxwu-er-oxnu discussion Shelley reed LPN * ACP (Advance Care Planning) - Shelley Guzman LPN - 02/25/2024 9:30 AM EDT Advance Care Planning Advance Directive Monthly Scanning Chart Audit Radha VASQUES Review of Advance Directives Scanned to Chart Document reviewed is Advance Directive Living Will scan on 11/05/2023 is invalid due to missing pages Additional comments: Will contact patient to obtain complete document. Changes made in Nutrition Specialist to clarify Document Type and/or placement in ACP Documents display. LJ ParkinsonWundrbar Lease Analyst General Email: [email or web address] General documented in this encounter Plan of Treatment Upcoming Encounters Date Type Department Care Team (Late st Contact Info) Description 02/28/2024 11:15 AM EDT Office Visit Neurosurgery, [place] [address] [place] [address] Clinic, Brain Tumor Multidisciplinary [address] [place] [address] 03/31/2024 9:00 AM EDT Office Visit Neurology Garry Jaffe [place] [address] [facility], [place] [address] Mariama Hinojosa DO [address] [place] [address] 06/28/2024 9:50 AM EDT Office Visit [address] [place] [address] Luz Maria Gama, DO [address] [facility] [place] [id number] Scheduled Procedures Name Priority Associated Diagnoses Date/Ti [...] as of this encounter Visit Diagnoses Diagnosis Advanced care planning/counseling discussion- Primary Other specified counseling documented in this encounter Advance Directives Documents on File Type Date Recorded Patient Steam Blocker Expl anation Advance Directives and Living Will 02/25/2024 Candi Mulligan signed on 11/06/2023 ADVANCE DIRECTIVE / LIVING WILL COMBINED LIVING WILL & HEALTH CARE POWER OF LOG SAWYER POLST 12/03/2023 9:15 AM sign date 12/01/2023 [...] the patient have Health Care Power of Dietitian Therapeutic? No * Full Code Date Activated Date [...] Care Agent (per Health Care Power of Dietitian Therapeutic document) [email or web address] Care Teams Claims Attorney Relationship Specialty Start Date End Date Luz Maria Gama DO [address] [place] [facility] [address] PCP - General Family Medicine 01/04/23 documented as of this encounter
--- OUTSIDE RECORDS SUMMARY | 2024-05-06 15:35 | External Medical Summary ---
Author Name Unknown Address Unknown Organization K01:[facility] [address] [place] [address] Laboratory Report Ordering Provider Test Date Status NEGROBRIANNA JACOME 02/28/2024 12:16:17 Final Observation Date Value Abnormality Reference (Units ) Status SYNC LEUKOCYTES IN BLOOD BY AUTOMATED COUNT 02/28/2024 12:16:17 5.74 4.00-10.80 (K/uL) Final Segs 02/28/2024 12:16:17 66.9 40.0-75.0 (%) Final Lymphs % 02/28/2024 12:16:17 19.9 18.0-42.0 (%) Final Monos 02/28/2024 12:16:17 10.3 1.0-11.0 (%) Final Eosinophils 02/28/2024 12:16:17 1.0 0.0-6.0 (%) Final Basos 02/28/2024 12:16:17 0.9 0.0-2.0 (%) Final Immature Granulocyte, Percent 02/28/2024 12:16:17 1.0 0.0-2.0 (%) Final Absolute Segs 02/28/2024 12:16:17 3.84 1.80-7.70 (K/uL) Final Lymphs, absolute 02/28/2024 12:16:17 1.14 1.00-4.80 (K/ul) Final Monos, Abs 02/28/2024 12:16:17 0.59 0.00-1.10 (K/uL) Final Eos, Abs 02/28/2024 12:16:17 0.06 0.00-0.70 (K/uL) Final Basos, Abs 02/28/2024 12:16:17 0.05 0.00-0.20 (K/uL) Final Immature Granulocytes, Number 02/28/2024 12:16:17 0.06 0.00-0.20 (K/uL) Final Performing Location LAB[facility] - [address] [facility] [address]
--- OUTSIDE RECORDS SUMMARY | 2024-05-06 15:36 | External Medical Summary | Summary of Care ---
Author Name Unknown Organization [facility] Address [address] [place] [address] Phone [phone] Care Team Providers Care Review Trainer Name Role Phone Luz Maria Gama DO Primary Care Provider Reason for Visit * Reason Onset Date Comments Medication Refill 02/08/2024 Encounter Details Date Type Department Care Team (Late st Contact Info) Description 02/08/2024 Refill Neurosurgery, [place] [address] [place], [place] [id number] Louis Souza IV, PA-C [address] [place] [address] Brain tumor (HCC); Brain mass Allergies No known active allergiesdocumented as of this encounter (statuses as of 02/10/2024) Medications Medication Sig Dispensed Refills Start Date [...] cardiomyopathy,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 Seek medical help immediately. [email or web address]/ [email or web address] 1 mL 3 11/18/2023 Active Naloxone HCl 4 MG/0.1ML Nasal Liquid (Narcan Nasal) Administer 1 spray into 1 nostril for suspected opioid overdose. Seek immediate medical attention. https://www.[employer].com/watch?v= [email or web address] 1 Each 3 11/18/2023 Active Ondansetron HCl [...] as of this encounter (statuses as of 02/10/2024) Active Problems Problem Noted Date Diagnosed Date [...] as of this encounter (statuses as of 02/10/2024) Resolved Problems Problem Noted Date Diagnosed Date [...] as of this encounter (statuses as of 02/10/2024) Immunizations Name Administration Dates Next Due COVID-19 [...] encounter Miscellaneous Notes * Telephone Encounter - Ximena Denny [facility] - 02/10/2024 11:11 AM EDT Refused Prescriptions: Disp Refills levETIRAcetam 500 MG Oral Tablet (Keppra) 60 Tab*2 Sig: Take 1 Tablet by mouth in the morning and 1 Tablet before bedtime.Refused By: XIMENA DENNY forRefusal: Too soon * Telephone Encounter - Alek Garcia - 02/09/2024 8:42 AM EDTPending Prescriptions: Disp Refills levETIRAcetam 500 MG Oral Tablet (Keppra) 60 Tab*2 Sig: Take 1 Tablet by mouth in the morning and 1 Tablet before bedtime. * Telephone Encounter - Alek Garcia - 02/09/2024 8:40 AM EDT Did you pend patient's preferred pharmacy and medication before forwarding?yes Pharmacy: [facility] [address] Pending Prescriptions: Disp Refills levETIRAcetam 500 MG Oral Tablet (Keppra) 60 Tab*2 Sig: Take 1 Tablet by mouth in the morning and 1 Tablet before bedtime. Last Visit: Visit date not found (in office), 11/22/2023 (telemedicine) Next Visit: 02/28/2024 If no future appointments scheduled, and last appointment is greater than a year ago, please schedule patient for a follow-up appointment Last date the medication was ordered: 04/02/2023 Is this request for a controlled substance?No Urine Drug Screen:No results found for this or any previous visit. Patient Phone Numbers Labs: Lab Results Component Value Date/Time CREAT 1.17 11/22/2023 12:00 AM CREAT 1.1 04/02/2020 11:47 AM POTASSIUM 4.2 11/22/2023 12:00 AM POTASSIUM 4.2 04/02/2020 11:47 AM TSH 1.77 10/25/2023 12:56 PM TSH 1.62 04/02/2020 11:47 AM LDLCALC 153 (H) 11/04/2023 01:05 PM LDLCALC 88 04/02/2020 11:47 AM LDLDIRECT NOT APPLICABLE 06/30/2017 09:38 AM ALT 30 11/06/2023 01:08 AM ALT 73 (H) 05/03/2020 01:29 PM HGBA1C 5.3 10/25/2023 12:56 PM HGBA1C 5.5 06/28/2018 11:41 AM documented in this encounter Plan of Treatment Upcoming Encounters Date Type Department Care Team (Late st Contact Info) Description 02/16/2024 9:30 AM EDT Telemedicine Psychology, [facility] [address] [facility] [place] [address] Morenita Castillo MA [address] [facility] [place] [address] 02/22/2024 11:30 AM EDT Imaging Radiology [address] [facility] [place] [address] 02/28/2024 11:15 AM EDT Telemedicine Neurosurgery, [place] [address] [place] [address] Clinic, Brain Tumor Multidisciplinary [address] [place] [address] 03/08/2024 2:00 PM EDT Office Visit Palliative Medicine [facility] [address] [place] [phone] Keisha Tompkins MD [address] [place] [address] [place] [address] 06/28/2024 9:50 AM EDT Office Visit Family [facility] [address] [place] [phone] Luz Maria Gama DO [address] [place] [address] 09/29/2024 1:00 PM EST Office Visit Neurology Garry Jaffe [place] [address] [place] [address] Mariama Hinojosa, DO [address] [place] [address] Scheduled Procedures Name Priority Associated Diagnoses Date/Ti [...] Documents on File Type Date Recorded Patient Tie Mill Operator Expl anation DESIRAE 12/03/2023 9:15 AM POL (Mitchell ited DNR) Advance Directives and Living [...] the patient have Health Care Power of Comprehensive Ophthalmologist? No * Full Code Date Activated Date [...] Advance Directives occurred with: Patient Care Teams Review Trainer Relationship Specialty Start Date End Date Luz Maria Gama DO [address] [place] [address] PCP - General Family Medicine 01/04/23 documented as of this encounter
--- OUTSIDE RECORDS SUMMARY | 2024-05-06 15:36 | External Medical Summary | Summary of Care ---
Author Name Unknown Organization [facility] Address [address] [place] [address] Phone [phone] Care Team Providers Care Food Safety Specialist Name Role Phone Luz Maria Gama DO Primary Care Provider [phone] Reason for Visit * Reason Comments Return Visit Encounter Details Date Type Department Care Team (Late st Contact Info) Description 02/08/2024 3:30 PM EDT Telemedicine Psychology, Cancer Center [place] [address] [facility] [place] [address] Morenita Castillo MA [address] [place] [address] Adjustment disorder with mixed anxiety and depressed mood* Allergies No known active allergiesdocumented as of this encounter (statuses as of 02/09/2024) Medications Medication Sig Dispensed Refills Start Date [...] below 140/90,Ischemic cardiomyopathy,[place] artery disease involving [place] coronary artery of [place] heart without angina pectoris,Dyslipidemi a, goal LDL [...] suspected opioid overdose. Seek medical help immediately. [email or web address] [email or web address]/- [email or web address] 1 mL 3 11/18/2023 Active Naloxone HCl 4 MG/0.1ML Nasal Liquid (Narcan Nasal) Administer 1 spray into 1 nostril for suspected opioid overdose. Seek immediate medical attention. https://www.FAZUA.com/watch?v=[email or web address] 1 Each 3 11/18/2023 Active Ondansetron HCl [...] or Anxiety. 60 Tablet 2 01/31/2024 Active Morphine Sulfate ER 30 MG Oral [...] as of this encounter (statuses as of 02/09/2024) Active Problems Problem Noted Date Diagnosed Date [...] as of this encounter (statuses as of 02/09/2024) Resolved Problems Problem Noted Date Diagnosed Date [...] as of this encounter (statuses as of 02/09/2024) Immunizations Name Administration Dates Next Due COVID-19 [...] as of this encounter Progress Notes * Morenita Castillo MA - 02/08/2024 3:31 PM EDT BEHAVIORAL MEDICINE PROGRESS NOTE [facility] Psychology, Cancer Center [facility] [address] [facility] [place] [address] 02/08/2024 Patient location: HOME. I was in a hospital or clinic location. After connecting through televideo,patient was verified with two unique identifiers. Patient (or authorized legal inbound customer service representative) was then informed that this was a Telemedicine visit and being conducted confidentially over secure lines. Methods to assure confidentiality were taken. Patient acknowledged consent and understanding of pr ivacy and security of the Telemedicine visit. The patient agreed to participate. After connecting through Televideo, patient was verified with two unique identifiers. Patient (or authorized legal inbound customer service representative) was then informed that this was a Telemedicine visit and that the exam was being conducted confidentially. My office door was closed. No one else was in the room with me. Patient acknowledged consent and understanding of privacy and security of this virtual visit .I informed the patient that I have reviewed their record in [facility] and presented the opportunity for themto ask [...] loved ones. Pt suggested significant alignment with [facility], heard of Nguyễn Vanessa prior and excitement to listen to audio book. Develop action plan: start listening to Man's Search for Meaning audio book FU Intake Assessment SOCIAL HISTORY Relationship status: Previously , now in committed relationship Quality of Relationship: positive/supportive. 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 Education Level: some college [...] (e.g: ED, hotlines): Suicide and Crisis Lifeline [facility] and [facility] Crisis Contact Patient/ Family Received Copy of Treatment Plan Duration of Treatment Frequency of Treatment Yes, sent via Pingup 3-4 sessions d/t provider leaving end february [...] treatment Collaboration of Care: Yes, provider within [facility], information is shared automatically in medical record [...] ASSESSMENT: [place]-SUICIDE SEVERITY RATING SCALE Frequent Screener [place] Suicide Severity Rating Scale Results 02/08/2024 11:00 [...] provided with emergency phone numbers- [facility] and [facility] Psychiatry [phone]. Encouraged to proceed to the nearest ER 24hrs/7days if symptoms worsen or patient feels out of control with plan or intent to act on thoughts. Agrees to call back to the clinic with any additional concerns or difficulties. Morenita Castillo MA [facility], [phone] [facility]. [place] [address] documented in this encounter Plan of Treatment Upcoming Encounters Date Type Department Care Team (Late st Contact Info) Description 02/16/2024 9:30 AM EDT Telemedicine Psychology, Cancer [place] [facility] [address] [facility] [address] [address] [place] [address] Morenita Castillo MA [address] [facility] [place] [address] 02/22/2024 11:30 AM EDT Imaging Radiology [facility] [facility] [address] [place] [address] 02/28/2024 11:15 AM EDT Telemedicine Neurosurgery, [place] [address] [place] [address] Clinic, Brain Tumor Multidisciplinary [address] [place] [address] 03/08/2024 2:00 PM EDT Office Visit Palliative Medicine [facility] [address] [place] [phone] Keisha Tompkins MD [address] [place] [phone] 06/28/2024 9:50 AM EDT Office Visit Family [address] [phone] Luz Maria Gama, [address] [place] [address] 09/29/2024 1:00 PM EST Office Visit Neurology [facility] [address] [place] [address] Mariama Hinojosa, DO [address] [place] [address] Scheduled Procedures Name Priority Associated Diagnoses Date/Ti [...] Documents on File Type Date Recorded Patient Hvac/R Service Technician Expl anation POLST 12/03/2023 9:15 AM [...] the patient have Health Care Power of Shipbuilding Draftsperson? No * Full Code Date Activated Date Inactivated Comments 11/06/2023 12:03 AM 11/10/2023 3:44 PM This order reflects the patients wishes and were consensually agreed upon. Question Answer Comments Discussion of Advance Directives occurred with: Patient * Full Code Date Activated Date Inactivated Comments 08/16/2015 9:24 AM 08/17/2015 3:26 PM This orde r reflects the patients wishes and were consensually agreed upon. Question Answer Comments Discussion of Advance Directives occurred with: Patient Care Teams Food Safety Specialist Relationship Specialty Start Date End Date Luz Maria Gama DO [address] [place] [address] PCP - General Family Medicine 01/04/23 documented as of this encounter
--- OUTSIDE RECORDS SUMMARY | 2024-05-06 15:36 | External Medical Summary | Summary of Care ---
Author Name Unknown Organization [facility] Address [address] [place] [address] Phone [phone] Care Team Providers Care Fitting Room Inspector Name Role Phone Luz Maria Gama DO Primary Care Provider Reason for Visit * Reason Onset Date Comments Other 01/27/2024 DME order Encounter Details Date Type Department Care Team (Late st Contact Info) Description 01/27/2024 Telephone Sleep Disorders, [address] [address] Holly Caal MD [address] [place] [address] Other (DME order ) Allergies No known active allergiesdocumented as of this encounter (statuses as of 01/27/2024) Medications Medication Sig Dispensed Refills Start Date End Date Status aspirin 81 MG chewable tablet Take 1 Tab by mouth daily. 30 Tab 11 08/17/2015 Active nitroglycerin (NITROSTAT) 0.[address] 1 [...] mouth in the morning. 90 Tablet 0 06/24/2023 Active Lisinopril 20 MG Oral Tablet (Prinivil)Indication s:HTN, goal below 140/90 Take 1 Tablet by mouth in the morning. 90 Tablet 3 11/04/2023 Active CPAP every night at bedtime. 0 Active Naloxone HCl 0.4 MG/ML Injection Solution (Narcan)Indications: Brain tumor (HCC),Brain mass Inject 1mL into a large muscle for suspected opioid overdose. Seek medical help immediately. [email or web address] 1 mL 3 11/18/2023 Active Naloxone HCl 4 MG/0.1ML Nasal Liquid (Narcan Nasal) Administer 1 spray into 1 nostril for suspected opioid overdose. Seek immediate medical attention. https://www.yuback.com/watch?v=v2 [email or web address] 1 Each 3 11/18/2023 Active Sennosides 8.6 MG Oral Tablet (Senokot)Indications :Constipation due to pain medication Take 2 Tablets by mouth at bedtime. 60 Tablet 0 12/01/2023 Active Ondansetron HCl 8 MG Oral Tablet (Zofran)Indications: Nausea Take 1 Tablet by mouth every 8 hours as needed for Nausea. 90 Tablet 1 12/22/2023 Active Omeprazole 40 MG Oral Capsule Delayed Release (PriLOSEC) Take 1 Capsule by mouth in the morning. 0 12/27/2023 Active dexAMETHasone 4 MG Oral Tablet (Decadron) Take 1 Tablet by mouth 2 times a day with morning and evening meals. 0 12/27/2023 Active Sulfamethoxazole-Tri methoprim 800-160 MG Oral Tablet (Bactrim DS) Every other day during radiation 0 12/27/2023 Active Doxycycline Monohydrate 50 MG Oral CapsuleIndications:R osacea Take 1 capsule by mouth once daily 90 Capsule 1 01/10/2024 Active Morphine Sulfate ER 30 MG Oral Tablet Extended Release (Ms Contin)Indications:C ancer related pain Take 1 Tablet by mouth in the morning and 1 Tablet before bedtime. 60 Tablet 0 01/10/2024 Active Morphine Sulfate 15 MG Oral Tablet (Msir)Indications:Ca ncer related pain Take 1 Tablet by mouth every 4 hours as needed for Pain, Severe. 60 Tablet 0 01/10/2024 Active levETIRAcetam 500 MG Oral Tablet (Keppra)Indications: Brain tumor (HCC),Brain mass Take 1 Tablet by mouth in the morning and 1 Tablet before bedtime. 60 Tablet 2 01/11/2024 Active Polyethylene Glycol 3350 17 GM Oral Packet (Miralax)Indications :Constipation due to pain medication Take 1 Packet by mouth in the morning. 14 Each 0 01/12/2024 Active busPIRone HCl 10 MG Oral Tablet (Buspar)Indications: Anxiety state Take 1 Tablet by mouth 2 times a day as needed for Agitation or Anxiety. 30 Tablet 0 01/25/2024 Active documented as of this encounter (statuses as of 01/27/2024) Active Problems Problem Noted Date Diagnosed Date [...] as of this encounter (statuses as of 01/27/2024) Resolved Problems Problem Noted Date Diagnosed Date [...] as of this encounter (statuses as of 01/27/2024) Immunizations Name Administration Dates Next Due COVID-19 [...] you got the money to buy more. Never true 11/19/19 24 Within the past 12 months, t he food you bought just didn't last and you didn't have money to get more. Never true 11/19/2023 Sex and Gender Information Value Date Recorded [...] encounter Miscellaneous Notes * Telephone Encounter - Argenis Cardoso OSA - 01/27/2024 11:12 AM EDT DME order to check CPAP machine was faxed to [facility] on this date. documented in this encounter Plan of Treatment Upcoming Encounters Date Type Department Care Team (Late st Contact Info) Description 02/01/2024 10:00 AM EDT Telemedicine Psychology, Cancer Center N[facility] H[facility] [address] [facility] [place] [address] Morenita Castillo MA [address] [facility] [place] [address] 02/22/2024 11:30 AM EDT Imaging Radiology [facility], [place] [address] [place] [address] 02/28/2024 11:15 AM EDT Telemedicine Neurosurgery, [place] [address] [place] [address] Clinic, Brain Tumor Multidisciplinary [address] [place] [address] 03/08/2024 2:00 PM EDT Office Visit Palliative Medicine [facility] [address] [place] [address] Keisha Tompkins MD [address] [place] [address] [place] [address] 03/20/2024 10:50 AM EDT Office Visit [address] [phone] Luz Maria Gama, [address] [place], [place] [id number] 09/29/2024 1:00 PM EST Office Visit Neurology [facility] [address] [place] [address] Mariama Hinojosa, DO [address] [place] [address] Scheduled Procedures Name Priority Associated Diagnoses Date/Ti [...] Documents on File Type Date Recorded Patient R D Engineer Expl anation POLST 12/03/2023 9:15 AM POLST ([place] ited DNR) Advance Directives and Living Will 11/05/2023 ADVANCE DIRECTIVE / LIVING WILL Latest Code Status on File Code Status Date Activated Date Inactivated Comments Full Code 11/10/2023 3:44 PM 11/18/2023 6:36 PM This order reflects the patients wishes and were consensually agreed upon. Question Answer Comments Discussion of Advance Directives occurred with: Not Discussed due to patient's condition Does the patient have a Living Will? No Does the patient have Health Care Power of Hospital Product Specialist? No Code Status History Code Status Date Activated Date Inactivated Comments Full Code 11/06/2023 12:03 AM 11/10/2023 3:44 PM This order reflects the patients wishes and were consensually agreed upon. Question Answer Comments Discussion of Advance Directives occurred with: Patient Full Code 08/16/2015 9:24 AM 08/17/2015 3:26 PM Thi s order reflects the patients wishes and were consensually agreed upon. Question Answer Comments Discussion of Advance Directives occurred with: Patient Care Teams Fitting Room Inspector Relationship Specialty Start Date End Date Luz Maria Gama DO [address] [place] [address] PCP - General Family Medicine 01/04/23 documented as of this encounter
--- OUTSIDE RECORDS SUMMARY | 2024-05-06 15:36 | External Medical Summary | Summary of Care ---
Author Name Unknown Organization [facility] Address [address] [place] [address] Phone [phone] Care Team Providers Care Hang Gliding Instructor Name Role Phone Socratesjuan Luz Maria Tiffany DO Primary Care Provider [phone] Reason for Referral * Social Care (Within 10 days (routine)) - Pending Review Specialty Diagnoses / Procedures Referred By Jerel jackson Referred To Contact Logistics Support Diagnoses Adjustment disorder with mixed anxiety and depressed mood Morenita Castillo MA [address] [place] [address] Referral ID Status Reason Start Date Expiration Date Visits Requested Visits Authorized [id number] Pending Review Specialty Services Required 02/03/2024 [id number] Question Answer Referral Priority Within 10 days (routine) Where should this appointment be scheduled? [facility] Role Service Associate Referring Reason: Financial assistance, Coordinate Cancer Resources Comments Is patient being transitioned from [facility] Home to Complex Case Management? No Transport to appts, financial resources Reason for Visit * Reason Comments NEW PATIENT * Evaluate & Treat - Unlimited Visits (Within 10 days (routine)) - Pending Review Specialty Diagnoses / Procedures Referred By Jerel jackson Referred To Contact Psychology Diagnoses Glioblastoma, IDH-wildtype (HCC) Anxiety state Nathalie Nichole PA-C [address] [place] [address] Referral ID Status Reason Start Date Expiration Date Visits Requested Visits Authorized [id number] Pending Review Specialty Services Required 01/25/2024 01/23/2025 [id number] Encounter Details Date Type Department Care Team (Late st Contact Info) Description 02/01/2024 10:00 AM EDT Telemedicine Psychology, Cancer Center Nora HALL [address] [place] [address] Morenita Castillo MA [address] [place] [address] Adjustment disorder with mixed anxiety and depressed mood* Allergies No known active allergiesdocumented as of this encounter (statuses as of 02/04/2024) Medications Medication Sig Dispensed Refills Start Date [...] below 140/90,Ischemic cardiomyopathy,Coron christiane artery disease involving kenaitze coronary artery of kenaitze heart without angina pectoris,Dyslipidemi a, goal LDL [...] suspected opioid overdose. Seek medical help immediately. http://youtu.be/- [email or web address] 1 mL 3 11/18/2023 Active Naloxone HCl 4 MG/0.1ML Nasal Liquid (Narcan Nasal) Administer 1 spray into 1 nostril for suspected opioid overdose. Seek immediate medical attention. https://www.tolingou be.com/watch?v=v2 0jOrw1EiJ 1 Each 3 11/18/2023 Active Sennosides 8.6 [...] or Anxiety. 60 Tablet 2 01/31/2024 Active documented as of this encounter (statuses as of 02/04/2024) Active Problems Problem Noted Date Diagnosed Date [...] as of this encounter (statuses as of 02/04/2024) Resolved Problems Problem Noted Date Diagnosed Date Resolved Date Brain mass 11/08/2023 11/19/2023 Bradycardia, sinus 01/21/2023 Body mass index (BMI) of 45. 0 to 49.9 in adult 07/29/2020 11/04/2020 Overview: Per Obesity protocol - Body mass index (BMI) of 40. 0 to 44.9 in adult 06/21/2017 08/01/2020 Overview: Per Obesity protocol #1 Venous insufficiency 04/23/2016 024 Testicular hypogonadism 09/24/2015 08/3 HTN (hypertension) 08/17/2015 06/16/201 6 Overview: Per HTN Protocol NSTEMI (non-ST elevated myoc ardial infarction) 08/16/2015 08/17/2015 documented as of this encounter (statuses as of 02/04/2024) Immunizations Name Administration Dates Next Due COVID-19 [...] Progress Notes * Danielle Montelongo PsyD - 02/04/2024 1:46 PM EDT I have discussed the patient's management with the psychology trainee and agree with the note. I have reviewed the relevant history, assessment, diagnosis, and plan. Please refer to the documented findings and plan of care. This patient's visit today consisted of a service. I was readily available for immediate consultation and assistance. Danielle Montelongo Psy.D. Licensed Clinical Psychologist #[id number] Behavioral Medicine Cancer [facility] * Morenita Castillo MA - 02/01/2024 9:21 AM EDT BEHAVIORAL MEDICINE ASSESSMENT [facility] [address] [place] [address] [place] [address] 02/01/2024 9:22 AM Patient was informed this typewriter repairer is a pre-doctoral international logistics coordinator working under the supervision of licensedpsychologist, Danielle Montelongo PsyD. Patient location: HOME. I was in a hospital or clinic location. After connecting through televideo,patient was verified with two unique identifiers. Patient (or authorized legal contracts representative) was then informed that this was a Telemedicine visit and being conducted confidentially over secure lines. Methods to assure confidentiality were taken. Patient acknowledged consent and understanding of pr ivacy and security of the Telemedicine visit. The patient agreed to participate. After connecting through Televideo, patient was verified with two unique identifiers. Patient (or authorized legal contracts representative) was then informed that this was a Telemedicine visit and that the exam was being conducted confidentially. My office door was closed. No one else was in the room with me. Patient acknowledged consent and understanding of privacy and security of this virtual visit. I informed the patient that I have reviewed their record in [employer] and presented the opportunity for themto ask any questions regarding the visit today. The patient agreed to participate. Remy Lujan arrived on time for his scheduled appointment. Primary language of patient was Danish. He was seen by himself throughout the duration of the evaluation. Provider reviewed elements of Outpatient Services Description including limits of confidentiality, how to contact the department, risks and benefits of treatment and consent for treatment. Start Time: 10:00 AM Stop Time: 11:00 AM Total Time: 60 min Referring Provider: Nathalie Nichole PA-C (palliative) Length of visit: 60 minutes. Diagnosis: Adjustment Disorder with mixed anxiety and depressed mood Cancer Diagnosis: Glioblastoma, IDH-wildtype Psych Diagnostic Evaluation: CPT: 85446 Consent: Informed consent, limits of confidentiality, the consultative nature of the first visit, and documentation in the electronic record were reviewed. REASON FOR REFERRAL Remy Lujan is a 58 year old male who was referred for assessment and possible treatment of adjustment, anxiety, mood. BRIEF SUMMARY OF ASSESSMENT CASE DISPOSITION/RECOMMENDATIONS Remy Lujan is a 58 year old [...] undersigned leaving system end of February 2024. Interdisciplinary approach is recommended. Discussed biopsychosocial model and evidence based care. Recommend referral for individual psychotherapy with undersigned, additional referral to oncology social worker. Remy agreed to plan and was scheduled/referred accordingly: yes Of note, d/t patient's cognitive limitations, did not complete full assessment. Plan to complete atFU. RISK FACTORS FOR CONSIDERATION Potential barriers to treatment adherence: cognitive limitations secondary to Glioblastoma. Problematic health behaviors: Yes, description sleep, pain. Psych history positive for intermittent mood/anxiety sx. Social/Biological Stressors: family, financial, health, and occupational. STRENGTHS: resilience, good social support network, psychologically minded, and motivated Coping strategies: to FU (pt reported word retrieval issues when attempting to assess) PRESENTING PROBLEM Cancer History: Diagnosis: Glioblastoma dxed Oct 2023. Pt had suspicion Aug 2023 (could not read). Treatment: - radiation -PO chemo -surgery (Oct 2023) Pt tolerated txes thus far with some difficulty. Compliance with treatment: Good Oncologist: Dr. Copeland Psychosocial Impact of Cancer/Treatment: Emotional & Physical: Mood: Patient reported since being diagnosed with cancer they have experienced mood symptoms, including depressed mood, anhedonia, and sleeping too much. Anxiety: Patient endorsed anxiety symptoms, including difficulty controlling worry and irritability. Cancer-related worries or concerns include finances. Also said wants to talk about /dying. When in hospital. Sleep: follows with sleep med (ALEKSANDR), noticed wants to sleep more since Appetite: good Pain: Current (0-10): top of head, usually mild but recently moderate. Fatigue: significant Sexual intimacy/health: varies, depending on how feeling. Cognitive functioning: significant impairment d/t cancer -unable to read, write, and struggles withor writing or word retrieval. "Pain worsens things." Thinks memory and cog referral a "waste of time" Loss of or change in physical abilities: not able to drive, but generally needs to take breaks. Social: Patient reported social relationships have been minimally impacted and endorsed fair to good social support from significant other, children, and friends. Patient does have children and endorsed concerns with the impact of their cancer on their children- they live in [place] which is a barrier to see them while managing medical appts. Has some close friends. Says "I am a hard person to be friends with." - hx tendency to push others away. Practical: Per patient report, their cancer and/or its treatment has created and/or exacerbated difficulties with access to food (has food stamps), transportation, financial resources. Interested in SW referral for applicable resources. Spirituality/Church: Patient does not identify with a faith. Reported some uncertainty around this at present, interested in returning to discussion. Coping: Patient reported use of established coping skills. Unable to retrive words. MENTAL HEALTH TREATMENT & HISTORY Current treatment: Patient is currently prescribed Buproprion by palliative and Buspar by PCP. Past mental health concerns/treatment: Patient mild, intermittent historical mental health concernssince early , including mood and anxiety sx. Reported attempts to engage in counseling once several years ago. Was connected with psychiatry around 2016 after CA and divorce. Patient denied history of eating disorders, psychosis, OCD, PTSD, santos/hypomania, trauma (including physical, emotional, or sexual abuse), suicidal or homicidal ideation. Medication compliance: Compliant with all prescribed medicines Family history: none patient is aware of SYMPTOMS Deferred PHQ and RENETTA given pt's inability to read, ability tog et fatigued in session, plan to FU in session 1. TESTING 02/01/2024 PHQ-9 - RENETTA-7 - RISK ASSESSMENT [place]-SUICIDE SEVERITY RATING SCALE Frequent Screener [place] Suicide Severity Rating Scale Results 02/01/2024 11:40 [place] SUICIDE SEVERITY RATING SCALE (C-SSRS) Have [...] No Level of Risk No Risk Identified Protective Factors Identifies reasons for living;Social Support/Family;Hopeful attitude and or beliefs Risk Factors Physical illness/chronic pain;Financial/economic duress;Anxiety Risk Factors: Physical illness/chronic pain;Financial/economic duress;Anxiety Protective Factors: Identifies reasons for living;Social Support/Family;Hopeful attitude and or beliefs Plan: Patient provided with emergency phone numbers: National Suicide Crisis Line - 988, [facility] Crisis: [phone] and [facility] Psychiatry [phone]. Encouraged to proceed to the nearest ER 24hrs/7days if symptoms worsen or patient feels out of control with plan or intent to act on thoughts. Agrees to call back to the clinic with any additional concerns or difficulties. MEDICATIONS Current Outpatient Medications Medication Sig Dispense Refill aspirin 81 MG chewable tablet Take 1 Tab by mouth daily. 30 Tab 11 nitroglycerin (NITROSTAT) 0.[address] 1 [...] suspected opioid overdose. Seek medical help immediately. http://[employer].[email or web address] 1 mL 3 Naloxone HCl 4 MG/0.1ML Nasal Liquid (Narcan Nasal) Administer 1 spray into 1 nostril for suspectedopioid overdose. Seek immediate medical attention. https://www.youtube.com/watch?v=f36lHsp7NsS 1 Each 3 Sennosides 8.6 MG Oral Tablet (Senokot) Take 2 Tablets by mouth at bedtime. 60 Tablet 0 Ondansetron HCl 8 MG Oral Tablet (Zofran) [...] by mouth once daily 90 Capsule 1 Morphine Sulfate ER 30 MG Oral Tablet Extended Release (Ms Contin) Take 1 Tablet by mouth in the morning and 1 Tablet before bedtime. 60 Tablet 0 Morphine Sulfate 15 MG Oral Tablet (Msir) Take 1 Tablet by mouth every 4 hours as needed for Pain, Severe. 60 Tablet 0 levETIRAcetam 500 MG Oral Tablet (Keppra) Take 1 Tablet by mouth in the morning and 1 Tablet beforebedtime. 60 Tablet 2 Polyethylene Glycol 3350 17 GM Oral Packet (Miralax) Take 1 Packet by mouth in the morning. 14 Each0 busPIRone HCl 10 MG Oral Tablet (Buspar) Take 1 Tablet by mouth 2 times a day as needed for Agitation or Anxiety. 60 Tablet 2 No current facility-administered medications for this visit. HEALTH BEHAVIORS To obtain at FU. MEDICAL PROBLEMS Past Medical History: Diagnosis Date Bradycardia, sinus CAD (coronary artery disease) CxOM3 BMS 08/16/15 HTN, goal below 140/80 Hx of tobacco use, presenting hazards to health MENTAL STATUS AND BEHAVIORAL OBSERVATIONS Appearance: within normal limits and age-appropriate Behavior: appropriate, cooperative, and pleasant Speech: Abnormal : aphasia Mood: slightly low Affect: mood-congruent Thought Process: occassionally disorganized d/t aphasia and other cognitive impairments Thought Content: No hallucinations or delusions Intellectual Function: Normal Sensorium: person, place, time, and situation Cognition: Impaired cognition Insight/Judgment: fair to good SOCIAL HISTORY Relationship status: Previously , now in committed relationship Quality of Relationship: positive/supportive. 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 Crisis Planning: What I can do if I ever experience a crisis (much worse symptoms, severe distress or thoughts of self-harm): speak to loved ones, listen to shows/podcasts People I can call in the event of a crisis: candi (significant other) Additional resources I can utilize if the previous steps are ineffective (e.g: ED, hotlines): Suicide and Crisis Lifeline - [facility] and [facility] Crisis Contact The assessment and plan was based on chart review and the information obtained during the appointment. ADMINISTRATIVE ELEMENTS Treatment Signature Sheet completed, submitted for scanning: no Forwarded to Psychiatry Pool: no The assessment for Remy is detailed at the beginning of this report. Morenita Castillo MA [facility], [id number] [place] [address] documented in this encounter Plan of Treatment Upcoming Encounters Date Type Department Care Team (Late st Contact Info) Description 02/08/2024 3:30 PM EDT Telemedicine Psychology, Cancer Center Nora HALL [address] [place] [address] Morenita Castillo MA [address] [place] [address] 02/22/2024 11:30 AM EDT Imaging Radiology [address] [facility] [place] [address] 02/28/2024 11:15 AM EDT Telemedicine Neurosurgery, [place] [address] [place] [address] Clinic, Brain Tumor Multidisciplinary [address] [place] [address] 03/08/2024 2:00 PM EDT Office Visit Palliative Medicine [facility] [address] [facility] [place] [phone] Keisha Tompkins MD [address] [place] [address] 03/20/2024 10:50 AM EDT Office Visit [facility] [address] [place] [address] Luz Maria Gama [address] [place] [address] 09/29/2024 1:00 PM EST Office Visit Neurology [facility] [address] [facility] [address] [place], [place] [id number] Mariama Hinojosa DO [address] [place] [address] Scheduled Procedures Name Priority Associated Diagnoses Date/Ti me COLONOSCOPY FLEXIBLE PROXIMA L DIAGNOSTIC Recall Encounter for screening colonoscopy Scheduled Referrals Name Type Priority Associated Diagnoses Orde r Schedule POPULATION HEALTH REFERRAL OP Referral Within 10 days (routine) Adjustment disorder with mixed anxiety and depressed mood Ordered: 02/03/2024 Health Maintenance Due Date Last Done Comments [...] Documents on File Type Date Recorded Patient Can Line Examiner Expl anation POLST 12/03/2023 9:15 AM POLST [...] the patient have Health Care Power of Supervisor Travel Information Center? No Code Status History Code Status Date [...] Advance Directives occurred with: Patient Care Teams Hang Gliding Instructor Relationship Specialty Start Date End Date Luz Maria Gama DO [address] [place] [address] PCP - General Family Medicine 01/04/23 documented as of this encounter
--- OUTSIDE RECORDS SUMMARY | 2024-05-06 15:36 | External Medical Summary | Summary of Care ---
Author Name Unknown Organization [facility] Address [address] [place] [address] Phone [phone] Care Team Providers Care Data Technical Lead Name Role Phone Luz Maria Gama DO Primary Care Provider Reason for Visit * Reason Onset Date Comments Advice 02/16/2024 [place] Encounter Details Date Type Department Care Team (Late st Contact Info) Description 02/16/2024 Telephone Palliative Medicine, [place] [address] [address] [facility] [place] [address] Services, Scheduling [address] [place] [address] Advice (Turner) Allergies No known active allergiesdocumented as of this encounter (statuses as of 02/16/2024) Medications Medication Sig Dispensed Refills Start Date [...] below 140/90,Ischemic cardiomyopathy,Beltrán ry artery disease involving the [place] coronary artery of the [place] heart without angina pectoris,Dyslipidemia , [...] suspected opioid overdose. Seek medical help immediately. http://ReClaims.be/ -[email or web address] 1 mL 3 11/18/2023 Active Naloxone HCl 4 MG/0.1ML Nasal Liquid (Narcan Nasal) Administer 1 spray into 1 nostril for suspected opioid overdose. Seek immediate medical attention. https://www.PolicyStat.com/watch?v= s45uCbx6QzH 1 Each 3 11/18/2023 Active Ondansetron HCl [...] as of this encounter (statuses as of 02/16/2024) Active Problems Problem Noted Date Diagnosed Date [...] as of this encounter (statuses as of 02/16/2024) Resolved Problems Problem Noted Date Diagnosed Date [...] as of this encounter (statuses as of 02/16/2024) Immunizations Name Administration Dates Next Due COVID-19 [...] Telephone Encounter - Sandra Cisneros LPN - 02/16/2024 11:52 AM EDT Spoke with Elva from [facility] They cover patient's area and should be able to see him She will let me know if there are any issues * Telephone Encounter - Sandra Cisneros LPN - 02/16/2024 10:45 AM EDT Reached out to Elva with [facility] Awaiting reply * Telephone Encounter - Janeth Nava OSA - 02/16/2024 10:41 AM EDT Turner pt. Pt cannot be seen for hospice due to the medicaid plan that he is currently on. Pt will have to go to another hospice provider. If you have any questions please call Don back at [phone] Thank you! documented in this encounter Plan of Treatment Upcoming Encounters Date Type Department Care Team (Late st Contact Info) Description 02/22/2024 11:30 AM EDT Imaging Radiology [address] [facility] [place] [address] 02/28/2024 11:15 AM EDT Telemedicine Neurosurgery, [place] [address] [place] [address] Clinic, Brain Tumor Multidisciplinary [address] [place] [address] 06/28/2024 9:50 AM EDT Office Visit [facility] [address] [place] [phone] Luz Maria Gama, [address] [place] [address] 09/29/2024 1:00 PM EST Office Visit Neurology [facility] [address] [place] [address] Mariama Hinojosa [address] [place] [address] Scheduled Procedures Name Priority Associated Diagnoses Date/Ti [...] Documents on File Type Date Recorded Patient Breaker Engineer Expl anation POLST 12/03/2023 9:15 AM [...] the patient have Health Care Power of Hydrologic Modeler? No * Full Code Date Activated Date [...] Advance Directives occurred with: Patient Care Teams Data Technical Lead Relationship Specialty Start Date End Date Luz Maria Gama DO [address] [facility] [place] [address] PCP - General Family Medicine 01/04/23 documented as of this encounter
--- OUTSIDE RECORDS SUMMARY | 2024-05-06 15:36 | External Medical Summary | Summary of Care ---
Author Name Unknown Organization [facility] Address [address] [place] [address] Phone [phone] Care Team Providers Care Rivet Tosser Name Role Phone Luz Maria Gama DO Primary Care Provider Reason for Visit * Reason Onset Date Comments Medication Refill 02/08/2024 Encounter Details Date Type Department Care Team (Late st Contact Info) Description 02/08/2024 Refill Palliative Medicine [facility] [address] [place] [address] Roxane Vaughn CRNP [address] [place] [address] Cancer related pain; Nausea; Constipation due to pain medication Allergies No known active allergiesdocumented as of this encounter (statuses as of 02/08/2024) Medications Medication Sig Dispensed Refills Start Date [...] below 140/90,Ischemic cardiomyopathy,Cor onary artery disease involving [place] coronary artery of [place] heart without angina pectoris,Dyslipide kavon, goal LDL [...] suspected opioid overdose. Seek medical help immediately. http://Traklight.be/ -[email or web address] 1 mL 3 11/18/2023 Active Naloxone HCl 4 MG/0.1ML Nasal Liquid (Narcan Nasal) Administer 1 spray into 1 nostril for suspected opioid overdose. Seek immediate medical attention. https://www.BuddyBounce.com/watch?v= c05qHlc7ZvV 1 Each 3 11/18/2023 Active Ondansetron HCl [...] 01/10/2024 Active levETIRAcetam 500 MG Oral Tablet (Keppra)Indication [...] Active Morphine Sulfate 15 MG Oral Tablet (Msir)Indications: Cancer related pain Take 1 Tablet by mouth every 4 hours as needed for Pain, Severe. Continued script 60 Tablet 02/08/2024 Active Polyethylene Glycol 3350 17 GM Oral Packet (Miralax)Indicatio ns:Constipation due to pain medication Take 1 Packet by mouth in the morning. 30 Each 02/08/2024 Active Sennosides 8.6 MG Oral Tablet (Senokot)Indicatio ns:Constipation due to pain medication Take 2 Tablets by mouth at bedtime. 60 Tablet 02/08/2024 Active Sennosides 8.6 MG Oral Tablet (Senokot)Indicatio ns:Constipation due to pain medication Take 2 Tablets by mouth at bedtime. 60 Tablet 12/01/2023 4 Discontinue d(Refill) Morphine Sulfate ER 30 MG Oral Tablet Extended Release (Ms Contin)Indications :Cancer related pain Take 1 Tablet by mouth in the morning and 1 Tablet before bedtime. 60 Tablet 01/10/2024 4 Discontinue d(Refill) Morphine Sulfate 15 MG Oral Tablet (Msir)Indications: Cancer related pain Take 1 Tablet by mouth every 4 hours as needed for Pain, Severe. 60 Tablet 01/10/2024 4 Discontinue d(Refill) Polyethylene Glycol 3350 17 GM Oral Packet (Miralax)Indicatio ns:Constipation due to pain medication Take 1 Packet by mouth in the morning. 14 Each 01/12/2024 4 Discontinue d(Refill) documented as of this encounter (statuses as of 02/08/2024) Active Problems Problem Noted Date Diagnosed Date [...] as of this encounter (statuses as of 02/08/2024) Resolved Problems Problem Noted Date Diagnosed Date [...] as of this encounter (statuses as of 02/08/2024) Immunizations Name Administration Dates Next Due COVID-19 mRNA, LNP-s, No Pre serve, 2-Dose Series ([employer] [place]) 12/02/2020,10/28/2020 Pneumococcal Polysaccharide PPV23 (Pneumovax) Seasonal Influenza, [...] encounter Miscellaneous Notes * Telephone Encounter - Nathalie Cervantes PA-C - 02/08/2024 12:17 PM EDTSigned Prescriptions: Disp Refills Morphine Sulfate ER 30 MG Oral Tablet Exte*60 Tab*0 Sig: Take 1 Tablet by mouth in the morning and 1 Tablet before bedtime. Continued script.Authorizing Provider: NATHALIE CERVANTES Morphine Sulfate 15 MG Oral Tablet (Msir) 60 Tab*0 Sig: Take 1 Tablet by mouth every4 hours as needed for Pain, Severe. Continued scriptAuthorizing Provider: NATHALIE CERVANTES Polyethylene Glycol 3350 17 GM Oral Packet*30 Each0 Sig: Take 1 Packet by mouth in the morning.Authorizing Provider: NATHALIE CERVANTES Sennosides 8.6 MG Oral Tablet (Senokot) 60 Tab*0 Sig: Take 2Tablets by mouth at bedtime.Authorizing Provider: NATHALIE CERVANTES * Telephone Encounter - Nathalie Cervantes PA-C - 02/08/2024 12:17 PM EDT I have reviewed the patient's controlled substance dispensing history in the Prescription Drug Monitoring Program in compliance with the [facility] regulations before prescribing a controlled substance. Refill sent * Telephone Encounter - Sandra Cisneros LPN - 02/08/2024 11:46 AM EDTPending Prescriptions: Disp Refills Morphine Sulfate ER 30 MG Oral Tablet Exte*60 Tab*0 Sig: Take 1 Tablet by mouth in the morning and 1 Tablet before bedtime. Morphine Sulfate 15 MG Oral Tablet (Msir) 60 Tab*0 Sig: Take 1 Tablet by mouth every 4 hours as needed for Pain, Severe. Polyethylene Glycol 3350 17 GM Oral Packet*14 Each0 Sig: Take 1 Pack et by mouth in the morning. Sennosides 8.6 MG Oral Tablet (Senokot) 60 Tab*0 Sig: Take 2 Tablets by mouth at bedtime. * Telephone Encounter - Sandra Cisneros LPN - 02/08/2024 11:44 AM EDT I have reviewed the patients controlled substance dispensing history in the Prescription Drug Monitoring Program in compliance with the [facility] regulations before prescribing a controlled substance. Were any discrepancies found:no Last prescribed 01/09 Last Filled 01/09 RX Due 02/09 documented in this encounter Plan of Treatment Upcoming Encounters Date Type Department Care Team (Late st Contact Info) Description 02/08/2024 3:30 PM EDT Telemedicine [facility] [address] [facility] [place] [address] Morenita Castillo MA [address] [place] [address] 02/22/2024 11:30 AM EDT Imaging Radiology [address], [address] [place] [address] 02/28/2024 11:15 AM EDT Telemedicine Neurosurgery, [place] [address] [facility] [address] Clinic, Brain Tumor Multidisciplinary [address] [place] [address] 03/08/2024 2:00 PM EDT Office Visit Palliative Medicine [facility] [address] [place] [address] Keisha Tompkins MD [address] [place] [address] 03/20/2024 10:50 AM EDT Office Visit [facility] [address] [place] [phone] Luz Maria Gama, [address] [place], [place] [address] 09/29/2024 1:00 PM EST Office Visit Neurology [facility] [address] [place], [place] [phone] Mariama Hinojosa, DO [address] [place] [address] Scheduled Procedures Name Priority Associated Diagnoses Date/Ti [...] related pain Neoplasm related pain (acute) (chronic) Nausea Nausea alone Constipation due to pain medication Other constipation documented in this encounter Advance Directives Documents on File Type Date Recorded 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 No * Full Code Date Activated Date [...] Advance Directives occurred with: Patient Care Teams Rivet Tosser Relationship Specialty Start Date End Date Luz Maria Gama DO [address] [facility] [place]ARTI [place] [address] PCP - General Family Medicine 01/04/23 documented as of this encounter
--- OUTSIDE RECORDS SUMMARY | 2024-05-06 15:36 | External Medical Summary | Summary of Care ---
Author Name Unknown Organization [facility] Address [address] [place] [address] Phone [phone] Care Team Providers Care Beam Dyer Operator Name Role Phone Luz Maria Gama DO Primary Care Provider Reason for Visit * Reason Comments Return Visit Encounter Details Date Type Department Care Team (Late st Contact Info) Description 02/08/2024 3:30 PM EDT Telemedicine Psychology, Cancer Center [facility] [place] [address] [facility] [place] [address] Morenita Castillo MA [address] [place] [address] Adjustment disorder with mixed anxiety [...] below 140/90,Ischemic cardiomyopathy,Coron christiane artery disease involving [place] coronary artery of [place] heart without angina pectoris,Dyslipidemi a, goal LDL [...] suspected opioid overdose. Seek medical help immediately. http://WeSpire.eSeekers/- [email or web address] 1 mL 3 11/18/2023 Active Naloxone HCl 4 MG/0.1ML Nasal Liquid (Narcan Nasal) Administer 1 spray into 1 nostril for suspected opioid overdose. Seek immediate medical attention. https://www.GINKGOTREE.com/watch?v=v2 4tObz1HuU 1 Each 3 11/18/2023 Active Ondansetron HCl [...] assistance. Danielle Montelongo Psy.D. Licensed Clinical Psychologist #[id number] Behavioral Medicine Cancer [facility] * Morenita Castillo MA - 02/08/2024 3:31 PM EDT BEHAVIORAL MEDICINE PROGRESS NOTE [facility] Psychology, Cancer Center [facility]re[facility] [address] [facility] [place]a KIDD [address] 02/08/2024 Patient location: HOME. I was in a hospital or clinic location. After connecting through [employer]ideo,patient was verified with two unique identifiers. Patient (or authorized legal congressional representative) was then informed that this was a Telemedicine visit and being conducted confidentially over secure lines. Methods to assure confidentiality were taken. Patient acknowledged consent and understanding of pr ivacy and security of the Telemedicine visit. The patient agreed to participate. After connecting through Televideo, patient was verified with two unique identifiers. Patient (or authorized legal congressional representative) was then informed that this was a Telemedicine visit and that the exam was being conducted confidentially. My office door was closed. No one else was in the room with me. Patient acknowledged consent and understanding of privacy and security of this virtual visit .I informed the patient that I have reviewed their record in iLink and presented the opportunity for themto ask [...] made it not very difficult for Remy Lujan to function. MED CHANGES/SIDE EFFECTS None AGENDA [...] loved ones. Pt suggested significant alignment with [facility], heard of Nguyễn Vanessa prior and excitement to listen to audio book. Develop action plan: start listening to Man's Search for Meaning audio book FU Intake Assessment SOCIAL HISTORY Relationship status: Previously , now in committed relationship Quality of Relationship: positive/supportive. 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 Education Level: some [...] ineffective (e.g: ED, hotlines): Suicide and Crisis [place] [address] and [facility] Crisis Contact Patient/ Family Received Copy of Treatment Plan Duration of Treatment Frequency of Treatment Yes, sent via [employer] 3-4 sessions d/t provider leaving end february [...] Yes, provider within [facility], information is shared automatically in medical record [...] ASSESSMENT: [place]-SUICIDE SEVERITY RATING SCALE Frequent Screener [place] Suicide Severity Rating Scale Results 02/08/2024 11:00 [...] provided with emergency phone numbers- TAPLINE and [facility] Psychiatry [phone]. Encouraged to proceed to the nearest ER 24hrs/7days if symptoms worsen or patient feels out of control with plan or intent to act on thoughts. Agrees to call back to the clinic with any additional concerns or difficulties. Morenita Castillo MA [facility], [facility] [place] [address]. [place] [address] documented in this encounter Plan of Treatment Upcoming Encounters Date Type Department Care Team (Late st Contact Info) Description 02/16/2024 9:30 AM EDT Telemedicine [facility] [address] [facility] [place] [address] Morenita Castillo MA [address] [place] [address] 02/22/2024 11:30 AM EDT Imaging Radiology [address] [facility] [place]ART[place] [address] 02/28/2024 11:15 AM EDT Telemedicine Neurosurgery, [place] [address] [place], [place] [address] Clinic, Brain Tumor Multidisciplinary [address] [place] [address] 03/08/2024 2:00 PM EDT Office Visit Palliative Medicine [facility] [address] [place] [phone] Keisha Tompkins MD [address] [place] [address] 06/28/2024 9:50 AM EDT Office Visit Family [facility] [address] [place] [phone] Luz Maria Gama [address] [place] [address] 09/29/2024 1:00 PM EST Office Visit Neurology [facility] [address] [place] [address] Mariama Hinojosa DO [address] [place] [address] Scheduled Procedures Name Priority Associated Diagnoses Date/Ti [...] Documents on File Type Date Recorded 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 No * Full Code Date Activated [...] Advance Directives occurred with: Patient Care Teams Beam Dyer Operator Relationship Specialty Start Date End Date Luz Maria Gama DO [address] [place] [address] PCP - General Family Medicine 01/04/23 documented as of this encounter
--- OUTSIDE RECORDS SUMMARY | 2024-05-06 15:36 | External Medical Summary | Summary of Care ---
Author Name Unknown Organization [facility] Address [address] [place] [address] Phone [phone] Care Team Providers Care Tar Worker Name Role Phone Luz Maria Gama DO Primary Care Provider Reason for Visit * Reason Onset Date Comments Medication Refill 02/08/2024 Encounter Details Date Type Department Care Team (Late st Contact Info) Description 02/08/2024 Refill Palliative Medicine, [address] 5[address] Floor [place], [place] [phone] Nathalie Nichole PA-Carine [address] [place] [address] Nausea Allergies No known active allergiesdocumented as of [...] below 140/90,Ischemic cardiomyopathy,Coron christiane artery disease involving [place] coronary artery of [place] heart without angina pectoris,Dyslipidemi a, goal LDL [...] suspected opioid overdose. Seek medical help immediately. http://Stratio.[facility]/- [email or web address] 1 mL 3 11/18/2023 Active Naloxone HCl 4 MG/0.1ML Nasal Liquid (Narcan Nasal) Administer 1 spray into 1 nostril for suspected opioid overdose. Seek immediate medical attention. https://www.Evermind.com/watch?v=v2 2tRlv6PuC 1 Each 3 11/18/2023 Active Sennosides 8.6 MG Oral Tablet (Senokot)Indications :Constipation due to pain medication Take 2 Tablets by mouth at bedtime. 60 Tablet 12/01/2023 Active Ondansetron HCl 8 MG Oral [...] 1 Tablet before bedtime. 60 Tablet 01/10/2024 Active Morphine Sulfate 15 MG Oral Tablet (Msir)Indications:Ca ncer related pain Take 1 Tablet by mouth every 4 hours as needed for Pain, Severe. 60 Tablet 01/10/2024 Active levETIRAcetam 500 MG Oral Tablet (Keppra)Indications: Brain tumor (HCC),Brain mass Take 1 Tablet by mouth in the morning and 1 Tablet before bedtime. 60 Tablet 2 01/11/2024 Active Polyethylene Glycol 3350 17 GM Oral Packet (Miralax)Indications :Constipation due to pain medication Take 1 Packet by mouth in the morning. 14 Each 01/12/2024 Active busPIRone HCl 10 MG Oral [...] Psychology, Cancer Center Nora HALL [address] [facility] [place] [address] Morenita Castillo MA [address] [place] [address] 02/22/2024 11:30 AM EDT Imaging Radiology [facility] [address] [place] [address] 02/28/2024 11:15 AM EDT Telemedicine Neurosurgery, [place] [address] [place] [address] Clinic, Brain Tumor Multidisciplinary [address] [place] [address] 03/08/2024 2:00 PM EDT Office Visit Palliative Medicine [facility] [address] [place] [phone] Keisha Tompkins MD [address] [place] [address] 03/20/2024 10:50 AM EDT Office Visit [facility] [address] [place] [phone] Luz Maria Gama, [address] [place] [address] 09/29/2024 1:00 PM EST Office Visit Neurology [facility] [address] [place] [address] Mariama Hinojosa, DO [address] [place] [address] Scheduled Procedures Name Priority Associated Diagnoses Date/Ti [...] as of this encounter Visit Diagnoses Diagnosis Nausea Nausea alone documented in this encounter Advance Directives Documents on File Type Date Recorded Patient Docketing Specialist Expl anation POLST 12/03/2023 9:15 AM POLST [...] the patient have Health Care Power of [place] Buyer? No * Full Code Date Activated Date [...] Advance Directives occurred with: Patient Care Teams Tar Worker Relationship Specialty Start Date End Date Luz Maria Gama DO [address] [facility] [place] [address] PCP - General Family Medicine 01/04/23 documented as of this encounter
--- OUTSIDE RECORDS SUMMARY | 2024-05-06 15:36 | External Medical Summary | Summary of Care ---
Author Name Unknown Organization [facility] Address [address] [place] [address] Phone [phone] Care Team Providers Care Chrome Worker Name Role Phone Luz Maria Gama DO Primary Care Provider Reason for Visit * Reason Onset Date Comments Medication Refill 02/08/2024 Encounter Details Date Type Department Care Team (Late st Contact Info) Description 02/08/2024 Refill Palliative Medicine, [address] 5[address] Floor [place], [place] [phone] Keisha Tompkins MD [address] [place] [address] Constipation due to pain medication Allergies [...] below 140/90,Ischemic cardiomyopathy,Coron christiane artery disease involving [place] coronary artery of [place] heart without angina pectoris,Dyslipidemi a, goal LDL [...] suspected opioid overdose. Seek medical help immediately. [email or web address]://[email or web address].Offerama/- [email or web address] 1 mL 3 11/18/2023 Active Naloxone HCl 4 MG/0.1ML Nasal Liquid (Narcan Nasal) Administer 1 spray into 1 nostril for suspected opioid overdose. Seek immediate medical attention. https://www.Pegasus [employer] Company.com/watch?v=v2 7yHhj5YjA 1 Each 3 11/18/2023 Active Sennosides 8.6 [...] Psychology, Cancer Center Nora HALL [address] [facility] [place] [address] Morenita Castillo MA [address] [place] [address] 02/22/2024 11:30 AM EDT Imaging Radiology [facility] [address] [place] [address] 02/28/2024 11:15 AM EDT Telemedicine Neurosurgery, [place] [address] [place] [address] Clinic, Brain Tumor Multidisciplinary [address] [place] [address] 03/08/2024 2:00 PM EDT Office Visit Palliative Medicine [facility] [address] [place] [phone] Keisha Tompkins MD [address] [place] [address] 03/20/2024 10:50 AM EDT Office Visit [facility] [address] [place] [phone] Luz Maria Gama, [address] [place] [address] 09/29/2024 1:00 PM EST Office Visit Neurology [facility] [address] [place] [address] Mariama Hinojosa DO [address] [place] [address] Scheduled Procedures Name Priority Associated Diagnoses Date/Ti [...] Documents on File Type Date Recorded 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 No * Full Code Date Activated Date [...] Advance Directives occurred with: Patient Care Teams Chrome Worker Relationship Specialty Start Date End Date Luz Maria Gama DO [address] [place] [address] PCP - General Family Medicine 01/04/23 documented as of this encounter
--- OUTSIDE RECORDS SUMMARY | 2024-05-06 15:36 | External Medical Summary | Summary of Care ---
Author Name Unknown Organization [facility] Address [address] [place] [address] Phone [phone] Care Team Providers Care Seismology Teacher Name Role Phone Luz Maria Gama DO Primary Care Provider Reason for Visit * Reason Comments Follow Up * Evaluate & Treat - Unlimited Visits (Within 10 days (routine)) - Pending Review Specialty Diagnoses / Procedures Referred By Jerel jackson Referred To Contact Sleep Medicine / Sleep Disorders Diagnoses ALEKSANDR (obstructive sleep apnea) Luz Maria Gama DO [address] [place] [address] Referral ID Status Reason Start Date Expiration Date Visits Requested Visits Authorized [id number] Pending Review Specialty Services Required 12/30/2023 2 2 Encounter Details Date Type Department Care Team ([facility] st Contact Info) Description 01/27/2024 10:20 AM EDT Telemedicine Sleep Disorders, [address] [address] Holly Caal MD [address] [place] [id number] ALEKSANDR (obstructive sleep apnea)* Allergies No known active allergiesdocumented as of [...] below 140/90,Ischemic cardiomyopathy,Coron christiane artery disease involving nisqually coronary artery of nisqually heart without angina pectoris,Dyslipidemi a, goal LDL [...] suspected opioid overdose. Seek medical help immediately. http://[email or web address].be/- [email or web address] 1 mL 3 11/18/2023 Active Naloxone HCl 4 MG/0.1ML Nasal Liquid (Narcan Nasal) Administer 1 spray into 1 nostril for suspected opioid overdose. Seek immediate medical attention. https://www.Sunnytrail Insight Labsu Cerebrotech Medical Systems.com/watch?v=v2 0wQvj0LjW 1 Each 3 11/18/2023 Active Sennosides 8.6 [...] as of this encounter Progress Notes * Holly Caal MD - 01/27/2024 10:37 AM EDT Patient location: HOME. I was in a hospital or clinic location. After connecting through televideo,patient was verified with two unique identifiers. Patient (or authorized legal new accounts banking representative) was then informed that this was a Telemedicine visit and being conducted confidentially over secure lines. Methods to assure confidentiality were taken. Patient acknowledged consent and understanding of pr ivacy and security of the Telemedicine visit. The patient agreed to participate. Name: Remy Lujan Sex: male : 1965 CC: F/U HPI: Patient came for f/u. Patient has a brain tumor. Patient states machine is not working right. Patient states he feels better when able to use the CPAP. Denies snoring. Bed time: 10 PM Wake up time: 6 AM Estimates hours of sleep per night: 6-7 hours Sleep position: side Excessive daytime sleepiness: 6-7 hours ESS: ROS: Reports: Fatigue Compliance data: DME: [facility] Past Medical History: Diagnosis Date Bradycardia, sinus CAD (coronary artery disease) CxOM3 BMS 08/16/15 HTN, goal below 140/80 Hx of tobacco use, presenting hazards to health Past Surgical History: Procedure Laterality Date COLONOSCOPY, DIAGNOSTIC (RECTUM) N/A 09/01/2016 normal biopsy/recall 10 years/COLONOSCOPY FLEXIBLE PROXIMAL DIAGNOSTIC performed by Dominik Herrera MD at OR [facility] CORONARY ANGIOGRAPHY W/LEFT HEART CATH Right 08/16/2015 CORONARY ANGIOGRAPHY W/LEFT HEART CATH performed by Joel Brambila MD at [facility] MICROSURGERY ADD-ON Left 11/10/2023 MICROSURGICAL SURGERY REQUIRING MICROSCOPE LISTED SEPARATELY performed by Matteo Ornelas III, MD at [place] [facility] REMOVE SUPRATENTORIAL BRAIN TUMOR Left 11/10/2023 CRANIOTOMY BONE FLAP EXCISION BRAIN TUMOR SUPRATENTORIAL performed by Matteo Ornelas III, MDat OR [facility] REMOVE TONSILS & ADENOIDS, UNDER 12 STEREOTACTIC CRANIAL INTRADURAL NAVIGATION Left 11/10/2023 STEREOTACTIC CRANIAL INTRADURAL NAVIGATION performed by Matteo Ornelas III, MD at [place] [facility] Social History Tobacco Use Smoking status: Former Current packs/day: 0.00 Average packs/day: 1.5 packs/day for 15.0 years (22.5 ttl pk-yrs) Types: Cigarettes Start date: 08/16/2000 Quit date: 08/16/2015 Years since quittin.4 Passive exposure: Never Smokeless tobacco: Former Types: Snuff Tobacco comments: smokes cigar occas Vaping Use Vaping Use: Never used Substance Use Topics Alcohol use: Yes Comment: weekly Drug use: No Family History Problem Relation Age of Onset Lung cancer Mother Stomach cancer Grandmother (Maternal) Allergies as of 01/27/2024 (No Known Allergies) Current Outpatient Medications Medication Sig Dispense Refill [...] suspected opioid overdose. Seek medical help immediately. http://Sunnytrail Insight Labsu.[email or web address] 1 mL 3 Naloxone HCl 4 MG/0.1ML Nasal Liquid (Narcan Nasal) Administer 1 spray into 1 nostril for suspectedopioid overdose. Seek immediate medical attention. https://www.youtube.com/watch?v=d43dHps8SlS 1 Each 3 Sennosides 8.6 MG Oral [...] for Agitation or Anxiety. 30 Tablet 0 No current facility-administered medications for this visit. Physical Exam: Unable to attain due to nature of telemedicine encounter ESS: Assessment: Patient is a 58 yo gentleman with history of ALEKSANDR, HTN, HLD ALEKSANDR PLAN: Continue using CPAP nightly and for all hours of sleep. Recommended routine cleaning and change of supplies as needed. JNC 7 lists ALEKSANDR as a causal risk factor for hypertension. Effective treatment of hypertension decreases cardiovascular risk/injury. Consider weight loss. Lifestyle modification with diet and exercise changes were encouraged becauseweight loss often results in improvement of sleep disordered breathing. Avoid driving, operating heavy machinery or engaging in any activity that requires full alertness if feeling sleepy, drowsy or otherwise impaired. Reviewed good sleep hygiene and recommended patient keep consistent bed/wake times and to get 7-8 hours of sleep. F/U in 2 months or sooner if needed. Holly Caal MD documented in this encounter Plan of Treatment Upcoming Encounters Date Type Department Care Team (Late st Contact Info) Description 02/01/2024 10:00 AM EDT Telemedicine Psychology, [facility], [place] [address] [facility] [place] [address] Morenita Castillo MA [address] [facility] [address] 02/22/2024 11:30 AM EDT Imaging Radiology [facility] 1st [facility], [address] [place] [address] 02/28/2024 11:15 AM EDT Telemedicine Neurosurgery, [place] [address] [place] [address] Clinic, Brain Tumor Multidisciplinary [address] [facility] [place] [address] 03/08/2024 2:00 PM EDT Office Visit Palliative Medicine [facility] [address] [place] [phone] Keisha Tompkins MD [address] [place] [address] 03/20/2024 10:50 AM EDT Office Visit [address] [phone] Luz Maria Gama [address] [place] [address] 09/29/2024 1:00 PM EST Office Visit Neurology [facility] 200 [place] [address] Mariama Hinojosa, DO [address] [place] [address] Scheduled Procedures Name Priority Associated Diagnoses Date/Ti [...] Documents on File Type Date Recorded Patient Electronics Assembler And Tester Expl anation POLST 12/03/2023 9:15 AM POLST [...] the patient have Health Care Power of Entry Level Manager? No Code Status History Code Status Date Activated Date Inactivated Comments Full Code 11/06/2023 12:03 AM 11/10/2023 3:44 PM This order reflects the patients wishes and were consensually agreed upon. Question Answer Comments Discussion of Advance Directives occurred with: Patient Full Code 08/16/2015 9:24 AM 08/17/2015 3:26 PM Th is order reflects the patients wishes and were consensually agreed upon. Question Answer Comments Discussion of Advance Directives occurred with: Patient Care Teams Seismology Teacher Relationship Specialty Start Date End Date Luz Maria Gama DO [address] [facility] [place] [address] PCP - General Family Medicine 01/04/23 documented as of this encounter
--- OUTSIDE RECORDS SUMMARY | 2024-05-06 15:36 | External Medical Summary | Summary of Care ---
Author Name Unknown Organization [facility] Address [address] [place] [address] Phone [phone] Care Team Providers Care Fitness Teacher Name Role Phone Luz Maria Gama DO Primary Care Provider [phone] Reason for Visit * Reason Onset Date Comments Medication Refill 02/08/2024 Encounter Details Date Type Department Care Team (Late st Contact Info) Description 02/08/2024 Refill [facility] [address] [place] [address] Floridalma Escobar, [address] [place] [address] Ischemic cardiomyopathy* Allergies No known active allergiesdocumented as of [...] below 140/90,Ischemic cardiomyopathy,Aristeo nary artery disease involving duckwater coronary artery of duckwater heart without angina pectoris,Dyslipidem ia, goal LDL [...] suspected opioid overdose. Seek medical help immediately. http://Prezacoru.be [email or web address] 1 mL 3 11/18/2023 Active Naloxone HCl 4 MG/0.1ML Nasal Liquid (Narcan Nasal) Administer 1 spray into 1 nostril for suspected opioid overdose. Seek immediate medical attention. https://www.KLD Energy Technologies.com/watch? v=d92uGbq5LyH 1 Each 3 11/18/2023 Active Ondansetron HCl [...] the morning. 30 Tablet 11 02/08/2024 Active aspirin 81 MG chewable tablet Take 1 Tab by mouth daily. 30 Tab 11 08/17/2015 Discontinue d(Refill) documented as of this encounter [...] encounter Miscellaneous Notes * Telephone Encounter - Floridalma Escobar DO - 02/08/2024 3:53 PM EDTSigned Prescriptions: Disp Refills Aspirin 81 MG Oral Tablet Chewable 30 Tab*11 Sig: Take 1 Tablet by mouth in the morning. Authorizing Provider: FLORIDALMA ESCOBAR * Telephone Encounter - Sangeetha Issa LPN - 02/08/2024 12:12 PM EDTPending Prescriptions: Disp Refills Aspirin 81 MG Oral Tablet Chewable 30 Tab*11 Sig: Take 1 Tabletby mouth in the morning. documented in this encounter Plan of Treatment Upcoming Encounters Date Type Department Care Team (Late st Contact Info) Description 02/22/2024 11:30 AM EDT Imaging Radiology [facility] 1st [facility], [place] [address] [facility] [place] [address] 02/28/2024 11:15 AM EDT Telemedicine Neurosurgery, [place] [address] [place], [place] [phone] Clinic, Brain Tumor Multidisciplinary [address] [place] [address] 03/08/2024 2:00 PM EDT Office Visit Palliative Medicine [facility] [address] [place] [address] Keisha Tompkins MD [address] [place] [address] 06/28/2024 9:50 AM EDT Office Visit Family [address] [phone] Luz Maria Gaam, [place] [address] 09/29/2024 1:00 PM EST Office Visit Neurology [facility] [address] [place] [address] Mariama Hinojosa, [address] [place] [address] Scheduled Procedures Name Priority Associated Diagnoses Date/Ti [...] as of this encounter Visit Diagnoses Diagnosis Ischemic cardiomyopathy- Primary Other specified forms of chronic ischemic heart disease documented in this encounter Advance Directives Documents on File Type Date Recorded Patient Service Team Leader Expl anation POLST 12/03/2023 9:15 AM POLST [...] the patient have Health Care Power of Associate Professor Of English? No * Full Code Date Activated Date [...] Advance Directives occurred with: Patient Care Teams Fitness Teacher Relationship Specialty Start Date End Date Luz Maria Gama DO [address] [facility] [place] [address] PCP - General Family Medicine 01/04/23 documented as of this encounter
--- OUTSIDE RECORDS SUMMARY | 2024-05-06 15:36 | External Medical Summary | Summary of Care ---
Author Name Unknown Organization [facility] Address [address] [place] [address] Phone [phone] Care Team Providers Care Bus System Operator Name Role Phone Socratesjuan Luz Maria Tiffany DO Primary Care Provider Reason for Referral * Social Care (Within 10 days (routine)) - Pending Review Specialty Diagnoses / Procedures Referred By Jerel jackson Referred To Contact Creative Technologist Diagnoses Adjustment disorder with mixed anxiety and depressed mood Morenita Castillo MA [address] [place] [address] Referral ID Status Reason Start Date Expiration Date Visits Requested Visits Authorized [id number] Pending Review Specialty Services Required 02/03/2024 [id number] Question Answer Referral Priority Within 10 days (routine) Where should this appointment be scheduled? [facility] Role Compressor Operator Adjuster Referring Reason: Financial assistance, Coordinate Cancer Resources Comments Is patient being transitioned from [facility] to Complex Case Management? No Transport to appts, financial resources Reason for Visit * Reason Comments NEW PATIENT * Evaluate & Treat - Unlimited Visits (Within 10 days (routine)) - Authorized Specialty Diagnoses / Procedures Referred By Jerel jackson Referred To Contact Psychology Diagnoses Glioblastoma, IDH-wildtype (HCC) Anxiety state Nathalie Nichole PA-C [address] [facility] [place] [address] Referral ID Status Reason Start Date Expiration Date Visits Requested Visits Authorized [id number] Authorized Specialty Services Required 01/25/2024 01/23/2025 [id number] Encounter Details Date Type Department Care Team (Late st Contact Info) Description 02/01/2024 10:00 AM EDT Telemedicine Psychology, [facility] Center [place] [address] [facility] [place] [address] Morenita Castillo MA [address] [facility] [place] [address] Adjustment disorder with mixed anxiety and depressed mood* Allergies No known active allergiesdocumented as of this encounter (statuses as of 02/03/2024) Medications Medication Sig Dispensed Refills Start Date [...] below 140/90,Ischemic cardiomyopathy,Coron christiane artery disease involving beaver coronary artery of beaver heart without angina pectoris,Dyslipidemi a, goal LDL [...] opioid overdose. Seek medical help immediately. http://youtu.be/- [email or web address] 1 mL 3 11/18/2023 Active Naloxone HCl 4 MG/0.1ML Nasal Liquid (Narcan Nasal) Administer 1 spray into 1 nostril for suspected opioid overdose. Seek immediate medical attention. https://www.Milk Mantrau be.com/watch?v=v2 4eIis4LeW 1 Each 3 11/18/2023 Active Sennosides 8.6 [...] as of this encounter (statuses as of 02/03/2024) Active Problems Problem Noted Date Diagnosed Date [...] as of this encounter (statuses as of 02/03/2024) Resolved Problems Problem Noted Date Diagnosed Date [...] as of this encounter (statuses as of 02/03/2024) Immunizations Name Administration Dates Next Due COVID-19 [...] as of this encounter Progress Notes * Anna Morenitajose Roth, TEN - 02/01/2024 9:21 AM EDT BEHAVIORAL MEDICINE ASSESSMENT Psychology, [facility] Center [facility] HALL 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 Patient location: HOME. I was in a hospital or clinic location. After connecting through televideo,patient was verified with two unique identifiers. Patient (or authorized legal product support representative) was then informed that this was a Telemedicine visit and being conducted confidentially over secure lines. Methods to assure confidentiality were taken. Patient acknowledged consent and understanding of pr ivacy and security of the Telemedicine visit. The patient agreed to participate. After connecting through Televideo, patient was verified with two unique identifiers. Patient (or authorized legal product support representative) was then informed that this was a Telemedicine visit and that the exam was being conducted confidentially. My office door was closed. No one else was in the room with me. Patient acknowledged consent and understanding of privacy and security of this virtual visit. I informed the patient that I have reviewed their record in Xiaohongshu and presented the opportunity for themto ask any questions regarding the visit today. The patient agreed to participate. Remy Cash Lujan arrived on time for his scheduled appointment. Primary language of patient was Bahamian. He was seen by himself throughout the [...] Diagnosis: Glioblastoma, IDH-wildtype Psych Diagnostic Evaluation: CPT: 47513 Consent: Informed consent, limits of confidentiality, the [...] individual psychotherapy with undersigned, additional referral to network announcer. Remy agreed to plan and was scheduled/referred [...] cancer on their children- they live in [place] which is a barrier to see them while managing medical appts. Has some close friends. Says "I am a hard person to be friends with." - hx tendency to push others away. Practical: Per patient report, their cancer and/or its treatment has created and/or exacerbated difficulties with access to food (has food stamps), transportation, financial resources. Interested in SW referral for applicable resources. Spirituality/Voodoo: Patient does not identify with a orthodox. Reported some uncertainty around this at present, [...] Was connected with psychiatry around 2016 after [place] and divorce. Patient denied history of eating [...] ASSESSMENT [place]-SUICIDE SEVERITY RATING SCALE Frequent Screener [place] Suicide Severity Rating Scale Results 02/01/2024 11:40 [...] numbers: National Suicide Crisis Line - 988, [facility] Crisis: [phone] and [facility] Psychiatry [phone]. Encouraged to proceed to the nearest ER [...] suspected opioid overdose. Seek medical help immediately. http://Brainrack.[email or web address] 1 mL 3 Naloxone HCl 4 MG/0.1ML Nasal Liquid (Narcan Nasal) Administer 1 spray into 1 nostril for suspectedopioid overdose. Seek immediate medical attention. https://www.Applitools.com/watch?v=j63wPqw5XlM 1 Each 3 Sennosides 8.6 MG Oral [...] Relationship: positive/supportive. 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 ADMINISTRATIVE ELEMENTS Treatment Signature Sheet completed, submitted for scanning: no Forwarded to Psychiatry Pool: no The assessment for Remy is detailed at the beginning of this report. Morenita Castillo MA [facility], [phone] [facility]. [place] [address] documented in this encounter Plan of Treatment Upcoming Encounters Date Type Department Care Team (Late st Contact Info) Description 02/08/2024 3:30 PM EDT Telemedicine Psychology, [facility] [place] [facility] [address] [facility] [place] [address] Morenita Castillo MA [address] [facility] [address] 02/22/2024 11:30 AM EDT Imaging Radiology [facility] 1st [facility], [place] [address] [facility] [place] [address] 02/28/2024 11:15 AM EDT Telemedicine Neurosurgery, [place] [address] [place] [address] Clinic, Brain Tumor Multidisciplinary [address] [place] [address] 03/08/2024 2:00 PM EDT Office Visit Palliative Medicine [facility] [address] [place] [address] Keisha Tompkins MD [address] [place] [address] 03/20/2024 10:50 AM EDT Office Visit Family [address] [phone] Luz Maria Gama, [address] [place] [address] 09/29/2024 1:00 PM EST Office Visit Neurology [facility] [address] [place] [address] Mariama Hinojosa, DO [address] [place] [address] Scheduled Procedures Name Priority Associated Diagnoses Date/Ti [...] Documents on File Type Date Recorded Patient Crepe Machine Operator Expl anation POLST 12/03/2023 9:15 AM [...] the patient have Health Care Power of Call Or Contact Centre Operator? No Code Status History Code Status Date [...] Advance Directives occurred with: Patient Care Teams Bus System Operator Relationship Specialty Start Date End Date Luz Maria Gama DO [address] [facility] [place] [address] PCP - General Family Medicine 01/04/23 documented as of this encounter
--- OUTSIDE RECORDS SUMMARY | 2024-05-06 15:36 | External Medical Summary | Summary of Care ---
Author Name Unknown Organization [facility] Address [address] [place] [address] Phone [phone] Care Team Providers Care Farmworker Vegetable Name Role Phone Luz Maria Gama DO Primary Care Provider Reason for Visit * Reason Onset Date Comments Paper Inspector Documentation 02/04/2024 Encounter Details Date Type Department Care Team (Late st Contact Info) Description 02/04/2024 Telephone Hematology Oncology [facility] [address] [place] [address] Morena Esposito, [facility] [address] [place] [address] Paper Inspector Documentation Allergies No known active allergiesdocumented as of [...] below 140/90,Ischemic cardiomyopathy,Coron christiane artery disease involving ruby coronary artery of ruby heart without angina pectoris,Dyslipidemi a, goal LDL [...] suspected opioid overdose. Seek medical help immediately. http://Clipcopia.[place] Used Gym Equipment/- [email or web address] 1 mL 3 11/18/2023 Active Naloxone HCl 4 MG/0.1ML Nasal Liquid (Narcan Nasal) Administer 1 spray into 1 nostril for suspected opioid overdose. Seek immediate medical attention. https://www.Axeda.com/watch?v=v2 4yMac1TbY 1 Each 3 11/18/2023 Active Sennosides 8.6 [...] encounter Miscellaneous Notes * Telephone Encounter - Morena Esposito MSW - 02/04/2024 1:09 PM EDT Called patient's home, and spoke to S.O./ISABELLE Christopher, who stated patient couldn't come to the phone.Candi stated they really don't have transportation problems other than when they have to come out to the [place] area, because in her words, they "live so far out". This sw gave Candi the phone numbers and websites to [facility], [facility], and [facility]. Candi expressed gratitude for the call, and denies additional needs at this time. Services provided include: Care Coordination Eri/Financial Assistance JOHN Marie Manager Multicultural [facility] [address] [place] [address] Ph. [phone] Fx. [phone] documented in this encounter Plan of Treatment Upcoming Encounters Date Type Department Care Team (Late st Contact Info) Description 02/08/2024 3:30 PM EDT Telemedicine Psychology, Cancer Center [facility], [place] [address] [facility] [place] [address] Morenita Castillo MA [address] [place] [address] 02/22/2024 11:30 AM EDT Imaging Radiology [address] [facility] [place] [address] 02/28/2024 11:15 AM EDT [facility] [address] [place] [address] Clinic, Brain Tumor Multidisciplinary [address] [place] [address] 03/08/2024 2:00 PM EDT Office Visit Palliative Medicine [facility] [address] [place] [phone] Keisha Tompkins MD [address] [place] [address] [place] [id number] 03/20/2024 10:50 AM EDT Office Visit 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 No Code Status History Code Status Date [...] Advance Directives occurred with: Patient Care Teams Farmworker Vegetable Relationship Specialty Start Date End Date Luz Maria Gama DO [address] [place] [address] PCP - General Family Medicine 01/04/23 documented as of this encounter
--- OUTSIDE RECORDS SUMMARY | 2024-05-06 15:36 | External Medical Summary | Summary of Care ---
Author Name Unknown Organization [facility] Address [address] [facility] [place] [address] Phone [phone] Care Team Providers Care Coating Line Worker Name Role Phone Luz Maria Gama DO Primary Care Provider Reason for Visit * Reason Onset Date Comments Appointment 02/21/2024 Encounter Details Date Type Department Care Team (Late st Contact Info) Description 02/21/2024 Telephone [address] [facility] [place] [address] Alix Lucas, RT (R) Appointment Allergies No known active allergiesdocumented as of this encounter (statuses as of 02/21/2024) Medications Medication Sig Dispensed Refills Start Date [...] below 140/90,Ischemic cardiomyopathy,Beltrán ry artery disease involving [place] coronary artery of [place] heart without angina pectoris,Dyslipidemia , goal LDL [...] suspected opioid overdose. Seek medical help immediately. [email or web address] [email or web address].be/ -[email or web address] 1 mL 3 11/18/2023 Active Naloxone HCl 4 MG/0.1ML Nasal Liquid (Narcan Nasal) Administer 1 spray into 1 nostril for suspected opioid overdose. Seek immediate medical attention. https://www.Niblitz.com/watch?v= [email or web address] 1 Each 3 11/18/2023 Active Ondansetron HCl [...] as of this encounter (statuses as of 02/21/2024) Active Problems Problem Noted Date Diagnosed Date [...] as of this encounter (statuses as of 02/21/2024) Resolved Problems Problem Noted Date Diagnosed Date [...] as of this encounter (statuses as of 02/21/2024) Immunizations Name Administration Dates Next Due COVID-19 [...] encounter Miscellaneous Notes * Telephone Encounter - Alix Lucas RT (R) - 02/21/2024 2:29 PM EDT Name: Remy Lujan Do you have any of the following: Pacemaker, stents, heart valves, aneurysm clips? No Have you ever worked with metal or have you ever gotten metal in your eyes? No Have you had a colonoscopy in the last 30 days? No On dialysis? No Do you have any dermals or body piercing's? No or ? Do you wear an insulin pump or diabetic monitor? no RT Jimena (R) documented in this encounter Plan of Treatment Upcoming Encounters Date Type Department Care Team (Late st Contact Info) Description 02/22/2024 11:30 AM EDT Imaging Radiology [facility] 1st [facility] [address] [place] [address] 02/28/2024 11:15 AM EDT Office Visit Neurosurgery, [place] [address] [place] [address] Clinic, Brain Tumor Multidisciplinary [address] [place] [address] 06/28/2024 9:50 AM EDT Office Visit Family [facility] [address] [place] [phone] Luz Maria Gama, [address] [place] [address] 09/29/2024 1:00 PM EST Office Visit Neurology [facility] [address] [place] [facility] [place] [address] Mariama Hinojosa [address] [place] [address] Scheduled Procedures Name Priority Associated Diagnoses Date/Ti [...] Documents on File Type Date Recorded Patient Talent Acquisition Project Manager Expl anation POLST 12/03/2023 9:15 AM POLST [...] the patient have Health Care Power of Display Fabrication Supervisor? No * Full Code Date Activated [...] Advance Directives occurred with: Patient Care Teams Coating Line Worker Relationship Specialty Start Date End Date Luz Maria Gama DO [address] [facility] [place] [address] PCP - General Family Medicine 01/04/23 documented as of this encounter
--- OUTSIDE RECORDS SUMMARY | 2024-05-06 15:37 | External Medical Summary | Summary of Care ---
Author Name Unknown Organization [facility] Address [address] [place] [address] Phone [phone] Care Team Providers Care Professor Of Kinesiology Name Role Phone Luz Maria Gama DO Primary Care Provider [phone] Encounter Details Date Type Department Care Team (Late st Contact Info) Description 10/06/2023 Telephone [facility] [address] [place] [address] Luz Maria Gama DO [address] [place] [address] Allergies No known active allergiesdocumented as of this encounter (statuses as of 01/05/2024) Medications Medication Sig Dispensed Refills Start Date End Date Status aspirin 81 MG chewable tablet Take 1 Tab by mouth daily. 30 Tab 11 5 Active nitroglycerin (NITROSTAT) 0.[address] 1 Tab under the tongue every 5 minutes as needed for Pain, Chest. 90 Tab 12 5 Active buPROPion HCl ER (SR) 150 MG Oral Tablet Extended Release 12 Hour (Wellbutrin SR)Indications:Adju stment disorder with depressed mood Take 1 tab by mouth twice per day 180 Tablet 1 3 Active Metoprolol Succinate ER 25 MG Oral Tablet Extended Release 24 Hour (toPROL XL)Indications:HTN, goal below 140/90,Ischemic cardiomyopathy,Aristeo nary artery disease involving [place] coronary artery of [place] heart without angina pectoris,Dyslipidem ia, goal LDL below 100,Essential hypertension with goal blood pressure less than 140/90 Take 1 Tablet by mouth in the morning. 90 Tablet 0 3 Active Doxycycline Monohydrate 50 MG Oral CapsuleIndications: Rosacea Take 1 capsule by mouth once daily 90 Capsule 1 3 Active Lisinopril 10 MG Oral Tablet (Prinivil)Indicatio ns:HTN, goal below 140/90,Ischemic cardiomyopathy,Aristeo nary artery disease involving [place] coronary artery of [place] heart without angina pectoris Take 1 Tablet by mouth in the morning. 90 Tablet 0 3 11/04/19 24 Discontinued(Dis charged) Ondansetron 4 MG Oral Tablet Disintegrating (Zofran) Place 1 Tablet on tongue every 8 hours as needed for Nausea. dissolve on tongue. 30 Tablet 1 3 11/18/19 24 Discontinued Wegovy 0.5 MG/0.5ML Subcutaneous Solution Auto-injector (Semaglutide-Weight Management) Inject 0.5 mg under the skin once a week. 2 mL 3 4 11/04/19 24 Discontinued(Dis charged) documented as of this encounter (statuses as of 01/05/2024) Active Problems Problem Noted Date Diagnosed Date [...] as of this encounter (statuses as of 01/05/2024) Resolved Problems Problem Noted Date Diagnosed Date [...] as of this encounter (statuses as of 01/05/2024) Immunizations Name Administration Dates Next Due COVID-19 [...] you have serious difficulty h earing? Yes 08/16/2015 Are you blind or do you have serious difficulty seeing, even when wearing glasses? Yes 08/16/2015 Do you have serious difficul ty walking or climbing stairs? (5 years old or older) No 08/16/2015 Do you have difficulty dress ing or bathing? (5 years old or older) No 08/16/2015 Because of a physical, menta l, or emotional condition, do you have difficulty doing errands alone such as visiting a doctor s office or shopping? (15 years old or older) No 08/16/20 15 Cognitive Status Response Date of Assessm ent Because of a physical, menta l, or emotional condition, do you have serious difficulty concentrating, remembering, or making decisions? (5 years old or older) No 08/16/2015 documented as of this encounter Miscellaneous Notes * Telephone Encounter - Lew Neves MD - 10/08/2023 10:44 AM EST Patient to ED if any acute changes to his medical status. Per report I received, he has had difficulty making out words/reading for the last number of weeks to months with no change to his health status acutely today. Follow up in office [facility] for evaluation. Lew Neves MD * Telephone Encounter - Marva Lizama LPN - 10/06/2023 6:47 PM EST Spoke with pt. Pt stated his only symptoms is he can't read and make out words. Pt was made aware that if he would get any other symptoms like body weakness or any other changes he should go to the ER per Dr. Neves. Pt has OV on Wednesday, but was concerned about the weather. He was transferred to scheduling to get another appointment the following week. Pt stated understanding that if he has any other changes in health he needs to go to the ER. * Telephone Encounter - Donna Almonte OSA - 10/06/2023 3:31 PM EST Routing to the nurses as the patient wants to talk to a NURSE. 10/06/2023 * Telephone Encounter - Christine Lawrence Ob/OrALEKSANDR - 10/06/2023 3:25 PM EST Pt would like a nurse to give him a call @ [phone] , pt can not read for the past few months and was always able to .Please advise. Thank you ! documented in this encounter Plan of Treatment Upcoming Encounters Date Type Department Care Team (Late st Contact Info) Description 01/19/2024 10:30 AM EDT Telemedicine Palliative Medicine, [address] 5th [place] [address] Nathalie Nichole PA-C [address] [place] [phone] 01/27/2024 10:20 AM EDT Telemedicine Sleep Disorders, [facility] [address] [place] [address] Holly Caal MD [address] [place] [address] 02/22/2024 11:30 AM EDT Imaging Radiology [facility] [address] [facility] 132 [facility] [place] [address] 02/28/2024 11:15 AM EDT Telemedicine Neurosurgery, [place] [address] [place] [address] Clinic, Brain Tumor Multidisciplinary [address] [place] [address] 03/20/2024 10:50 AM EDT Office Visit [place] [address] [place] [address] Luz Maria Gama, [address] [place] [address] 09/29/2024 1:00 PM EST Office Visit Neurology [facility] [address] [place] [address] Mariama Hinojosa, [address] [place] [address] Scheduled Procedures Name Priority Associated Diagnoses Date/Ti [...] on File Type Date Recorded Patient Clinical Documentation Consultant Expl anation POLST 12/03/2023 9:15 AM POLST [...] the patient have Health Care Power of Railroad Signal Operator? No Code Status History Code Status [...] Advance Directives occurred with: Patient Care Teams Professor Of Kinesiology Relationship Specialty Start Date End Date Luz Maria Gama DO [address] [place] [address] PCP - General Family Medicine 01/04/23 documented as of this encounter
--- OUTSIDE RECORDS SUMMARY | 2024-05-06 15:37 | External Medical Summary | Summary of Care ---
Author Name Unknown Organization [facility] Address [address] [place] [address] Phone [phone] Care Team Providers Care Tire Adjuster Name Role Phone Luz Maria Gama Primary Care Provider Reason for Visit * Reason Onset Date Comments Medication Refill 01/11/2024 Encounter Details Date Type Department Care Team (Late st Contact Info) Description 01/11/2024 Refill Palliative Medicine, [facility] [address] [facility] 5th Floor [place], [place] [phone] Madhuri Tompkins MD [address] [place] [address] Constipation due to pain medication Allergies No known active allergiesdocumented as of this encounter (statuses as of 01/12/2024) Medications Medication Sig Dispensed Refills Start Date [...] below 140/90,Ischemic cardiomyopathy,Cor onary artery disease involving [place] coronary artery of [place] heart without angina pectoris,Dyslipide kavon, goal LDL [...] suspected opioid overdose. Seek medical help immediately. [email or web address].be/ [email or web address] 1 mL 3 11/18/2023 Active Naloxone HCl 4 MG/0.1ML Nasal Liquid (Narcan Nasal) Administer 1 spray into 1 nostril for suspected opioid overdose. Seek immediate medical attention. https://www.Koemei.com/watch?v= [email or web address] 1 Each 3 11/18/2023 Active Sennosides 8.6 MG Oral Tablet (Senokot)Indicatio [...] morning and evening meals. 0 12/27/2023 Active Sulfamethoxazole-T rimethoprim 800-160 MG Oral [...] the morning. 14 Each 0 01/12/2024 Active Polyethylene Glycol 3350 17 GM Oral Packet (Miralax)Indicatio ns:Constipation due to pain medication Take 1 Packet by mouth in the morning. 14 Each 0 12/01/2023 Discontinue d(Refill) documented as of this encounter (statuses as of 01/12/2024) Active Problems Problem Noted Date Diagnosed Date [...] as of this encounter (statuses as of 01/12/2024) Resolved Problems Problem Noted Date Diagnosed Date [...] as of this encounter (statuses as of 01/12/2024) Immunizations Name Administration Dates Next Due COVID-19 mRNA, LNP-s, No Pre serve, 2-Dose Series (Convio) 12/02/2020,10/28/2020 Pneumococcal Polysaccharide PPV23 (Pneumovax) Seasonal Influenza, [...] money to buy more. Never true 11/19/19 Within the past 12 months, t he [...] Telephone Encounter - Madhuri Tompkins MD - 01/12/2024 7:59 AM EDT Signed Prescriptions: Disp Refills Polyethylene Glycol 3350 17 GM Oral Packet*14 Each0 Sig: Take 1 Packet by mouth in the morning. Authorizing Provider: MADHURI TOMPKINS * Telephone Encounter - Sandra Cisneros LPN - 01/12/2024 7:29 AM EDTPending Prescriptions: Disp Refills Polyethylene Glycol 3350 17 GM Oral Packet*14 Each0 Sig: Take 1 Packet by mouth in the morning. * Telephone Encounter - Sandra Cisneros LPN - 01/12/2024 7:29 AM EDT Did you pend patient's preferred pharmacy and medication before forwarding?yes Pharmacy: [facility] [address] Authorization for medication useage called to indicated pharmacy per Dr. Tompkins due to Remy Lujan. Last Visit: Visit date not found (in office), 12/22/2023 (telemedicine) Next Visit: 01/25/2024 If no future appointments scheduled, and last appointment is greater than a year ago, please schedule patient for a follow-up appointment Last date the medication was ordered: 11/30 Is this request for a controlled substance?No [...] Care Team (Late st Contact Info) Description 01/25/2024 10:00 AM EDT Telemedicine Palliative Medicine, [facility] [address] [facility] 5th [place] [address] Nathalie Nichole PA-C [address] [place] [address] 01/27/2024 10:20 AM EDT Telemedicine Sleep Disorders, [address] [address] Holly Caal MD [address] [place] [address] 02/22/2024 11:30 AM EDT Imaging Radiology [facility] [address] [place] [address] 02/28/2024 11:15 AM EDT Telemedicine Neurosurgery, [place] [address] [place] [address] Clinic, Brain Tumor Multidisciplinary [address] [place] [address] 03/20/2024 10:50 AM EDT Office Visit [facility] [address] [place] [phone] Luz Maria Gama DO [address] [place] [address] 09/29/2024 1:00 PM EST Office Visit Neurology [facility] [place] [address] [place] [facility] [place] [address] Mariama Hinojosa, DO [address] [facility] [address] Scheduled Procedures Name Priority Associated Diagnoses Date/Ti [...] Documents on File Type Date Recorded Patient Animal Biologist Expl anation POLST 12/03/2023 9:15 AM POLST [...] the patient have Health Care Power of Greeting Card Editor? No Code Status History Code Status Date [...] Advance Directives occurred with: Patient Care Teams Tire Adjuster Relationship Specialty Start Date End Date Luz Maria Gama DO [address] [place] [address] PCP - General Family Medicine 01/04/23 documented as of this encounter
--- OUTSIDE RECORDS SUMMARY | 2024-05-06 15:37 | External Medical Summary | Summary of Care ---
Author Name Unknown Organization [facility] Address [address] [place] [address] Phone [phone] Care Team Providers Care Incident Manager Name Role Phone Luz Maria Gama Primary Care Provider Reason for Visit * Reason Onset Date Comments Medication Refill 01/07/2024 Encounter Details Date Type Department Care Team (Late st Contact Info) Description 01/07/2024 Refill Neurosurgery, [place] [address] [place], [place] [phone] Honey Souza IV, PA-C [address] [place] [address] Brain tumor (HCC); Brain mass Allergies No known active allergiesdocumented as of this encounter (statuses as of 01/11/2024) Medications Medication Sig Dispensed Refills Start Date [...] suspected opioid overdose. Seek medical help immediately. [email or web address].be/ [email or web address] 1 mL 3 11/18/2023 Active Naloxone HCl 4 MG/0.1ML Nasal Liquid (Narcan Nasal) Administer 1 spray into 1 nostril for suspected opioid overdose. Seek immediate medical attention. https://www.Haofangtong.com/watch?v= [email or web address] 1 Each 3 11/18/2023 Active Sennosides 8.6 MG Oral Tablet (Senokot)Indicatio ns:Constipation due to pain medication Take 2 Tablets by mouth at bedtime. 60 Tablet 0 12/01/2023 Active Polyethylene Glycol 3350 17 GM Oral Packet (Miralax)Indicatio ns:Constipation due to pain medication Take 1 Packet by mouth in the morning. 14 Each 0 12/01/2023 Active Ondansetron HCl 8 MG [...] other day during radiation 0 12/27/2023 Active levETIRAcetam 500 MG Oral Tablet (Keppra)Indication s:Brain tumor (HCC),Brain mass Take 1 Tablet by mouth in the morning and 1 Tablet before bedtime. 60 Tablet 2 01/11/2024 Active Doxycycline Monohydrate 50 MG Oral CapsuleIndications :Rosacea Take 1 capsule by mouth once daily 90 Capsule 1 06/24/2023 4 Discontinue d(Refill) levETIRAcetam 500 MG Oral Tablet (Keppra)Indication s:Brain tumor (HCC),Brain mass Take 1 Tablet by mouth in the morning and 1 Tablet before bedtime. 60 Tablet 0 12/10/2023 4 Discontinue d(Refill) Morphine Sulfate ER 30 MG Oral Tablet Extended Release (Ms Contin)Indications :Cancer related pain Take 1 Tablet by mouth in the morning and 1 Tablet before bedtime. 60 Tablet 0 12/14/2023 4 Discontinue d(Refill) Morphine Sulfate 15 MG Oral Tablet (Msir)Indications: Cancer related pain Take 1 Tablet by mouth every 4 hours as needed for Pain, Severe. 60 Tablet 0 12/14/2023 4 Discontinue d(Refill) documented as of this encounter (statuses as of 01/11/2024) Active Problems Problem Noted Date Diagnosed Date [...] as of this encounter (statuses as of 01/11/2024) Resolved Problems Problem Noted Date Diagnosed Date [...] as of this encounter (statuses as of 01/11/2024) Immunizations Name Administration Dates Next Due COVID-19 [...] encounter Miscellaneous Notes * Telephone Encounter - Norah Lin [facility] - 01/11/2024 2:10 PM EDT Pt has read [employer] message advising that refill was sent to their pharmacy. Thank you, Norah Lin, PharmD Clinical Pharmacist [facility] ([facility]) (formerly Telepharmacy) [phone] 01/11/2024, 2:10 PM * Telephone Encounter - Honey Souza IV, PA-C - 01/11/2024 1:52 PM EDT Medication refill approved. Honey Souza IV, PA-C * Telephone Encounter - Honey Souza IV, PA-C - 01/11/2024 1:52 PM EDT Signed Prescriptions: Disp Refills levETIRAcetam 500 MG Oral Tablet (Keppra) 60 Tab*2 Sig: Take 1 Tablet by mouth in the morning and 1 Tablet before bedtime. Authorizing Provider: HONEY SOUZA IV * Telephone Encounter - Norah Lin [facility] - 01/11/2024 10:57 AM EDT Pending Prescriptions: Disp Refills levETIRAcetam 500 MG Oral Tablet (Keppra) 60 Tab*2 Sig: Take 1 Tablet by mouth in the morning and 1 Tablet before bedtime. 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 Please approve if appropriate to continue. Thank you, Norah Lin, PharmD Clinical Pharmacist [facility] ([facility]) (formerly Telepharmacy) [phone] 01/11/2024, 10:55 AM * Telephone Encounter - Alek Garcia - 01/08/2024 6:20 AM EDTPending Prescriptions: Disp Refills levETIRAcetam 500 MG Oral Tablet (Keppra) 60 Tab*0 Sig: Take 1 Tablet by mouth in the morning and 1 Tablet before bedtime. * Telephone Encounter - Alek Garcia - 01/08/2024 6:18 AM EDT Did you pend patient's preferred pharmacy and medication before forwarding?yes Pharmacy: [facility] [address] Pending Prescriptions: Disp Refills levETIRAcetam 500 MG Oral Tablet (Keppra) 60 Tab*0 Sig: Take 1 Tablet by [...] 01/25/2024 10:00 AM EDT Telemedicine Palliative Medicine, [facility] 400 [facility] 5th [place] [address] Nathalie Nichole PA-C [address] [place] [address] 01/27/2024 10:20 AM EDT Telemedicine Sleep Disorders, [address] [address] Holly Caal MD [address] [place] [address] 02/22/2024 11:30 AM EDT Imaging Radiology [facility]st [facility] [address] [place] [address] 02/28/2024 11:15 AM EDT [facility]medicine [facility], [place] [address] [facility] [address] Clinic, Brain Tumor Multidisciplinary [address] [facility] [place] [address] 03/20/2024 10:50 AM EDT Office Visit [facility] [address] [place] [address] Luz Maria Gama, [address] [place] [address] 09/29/2024 1:00 PM EST Office Visit Neurology [facility] [place] [address] [place] [address] Mariama Hinojosa, DO [address] [place] [address] Scheduled Procedures Name Priority Associated Diagnoses Date/Ti [...] Documents on File Type Date Recorded Patient Scientist Immunology Expl anation POLST 12/03/2023 9:15 AM POLST [...] the patient have Health Care Power of Kiln Operator? No Code Status History Code Status [...] Advance Directives occurred with: Patient Care Teams Incident Manager Relationship Specialty Start Date End Date Luz Maria Gama DO [address] [place] [address] PCP - General Family Medicine 01/04/23 documented as of this encounter
--- OUTSIDE RECORDS SUMMARY | 2024-05-06 15:37 | External Medical Summary | Summary of Care ---
Author Name Unknown Organization [facility] Address [address] [place] [address] Phone [phone] Care Team Providers Care Mail Machine Operator Name Role Phone Luz Maria Gama Primary Care Provider Reason for Visit * Reason Onset Date Comments Medication Refill 01/07/2024 Encounter Details Date Type Department Care Team (Late st Contact Info) Description 01/07/2024 Refill Palliative Medicine [facility] [address] [place] [address] Keisha Tompkins MD [address] [place] [id number] Cancer related pain Allergies No known active allergiesdocumented as of this encounter (statuses as of 01/10/2024) Medications Medication Sig Dispensed Refills Start Date [...] below 140/90,Ischemic cardiomyopathy,Cor onary artery disease involving samish coronary artery of samish heart without angina pectoris,Dyslipide kavon, goal LDL below 100,Essential hypertension with goal blood pressure less than 140/90 Take 1 Tablet by mouth in the morning. 90 Tablet 0 06/24/2023 Active Doxycycline Monohydrate 50 MG Oral CapsuleIndications :Rosacea Take 1 capsule by mouth once daily 90 Capsule 1 06/24/2023 Active Lisinopril 20 MG Oral Tablet (Prinivil)Indicati ons:HTN, goal below 140/90 Take 1 Tablet by mouth in the morning. 90 Tablet 3 11/04/2023 Active CPAP every night at bedtime. 0 Active Naloxone HCl 0.4 MG/ML Injection Solution (Narcan)Indication s:Brain tumor (HCC),Brain mass Inject 1mL into a large muscle for suspected opioid overdose. Seek medical help immediately. [email or web address] 1 mL 3 11/18/2023 Active Naloxone HCl 4 MG/0.1ML Nasal Liquid (Narcan Nasal) Administer 1 spray into 1 nostril for suspected opioid overdose. Seek immediate medical attention. https://www.[employer].com/watch?v= [email or web address] 1 Each 3 11/18/2023 Active Sennosides 8.6 MG Oral Tablet (Senokot)Indicatio ns:Constipation due to pain medication Take 2 Tablets by mouth at bedtime. 60 Tablet 0 12/01/2023 Active Polyethylene Glycol 3350 17 GM Oral Packet (Miralax)Indicatio ns:Constipation due to pain medication Take 1 Packet by mouth in the morning. 14 Each 0 12/01/2023 Active levETIRAcetam 500 MG Oral Tablet (Keppra)Indication s:Brain tumor (HCC),Brain mass Take 1 Tablet by mouth in the morning and 1 Tablet before bedtime. 60 Tablet 0 12/10/2023 Active Ondansetron HCl 8 MG Oral Tablet [...] other day during radiation 0 12/27/2023 Active Morphine Sulfate ER 30 MG Oral Tablet Extended Release (Ms Contin)Indications :Cancer related pain Take 1 Tablet by mouth in the morning and 1 Tablet before bedtime. 60 Tablet 0 01/10/2024 Active Morphine Sulfate 15 MG Oral Tablet (Msir)Indications: Cancer related pain Take 1 Tablet by mouth every 4 hours as needed for Pain, Severe. 60 Tablet 0 01/10/2024 Active Morphine Sulfate ER 30 MG [...] as of this encounter (statuses as of 01/10/2024) Active Problems Problem Noted Date Diagnosed Date [...] as of this encounter (statuses as of 01/10/2024) Resolved Problems Problem Noted Date Diagnosed Date [...] as of this encounter (statuses as of 01/10/2024) Immunizations Name Administration Dates Next Due COVID-19 mRNA, LNP-s, No Pre serve, 2-Dose Series ([employer]) 12/02/2020,10/28/2020 Pneumococcal Polysaccharide PPV23 (Pneumovax) Seasonal Influenza, [...] Miscellaneous Notes * Telephone Encounter - Roxane Vaughn CRNP - 01/10/2024 8:06 AM EDTSigned Prescriptions: Disp Refills Morphine Sulfate ER 30 MG Oral Tablet Exte*60 Tab*0 Sig: Take 1 Tablet by mouth in the morning and 1 Tablet before bedtime.Authorizing Provider: ROXANE VAUGHN Morphine Sulfate 15 MG Oral Tablet (Msir) 60 Tab*0 Sig: Take 1 Tablet by mouth every 4 hours as needed for Pain, Severe.Authorizing Provider: ROXANE VAUGHN * Telephone Encounter - Roxane Vaughn CRNP - 01/10/2024 8:04 AM EDT I have reviewed the patients controlled substance dispensing history in the Prescription Drug Monitoring Program in compliance with the [place] regulations before prescribing a controlled substance. MS contin and MS IR refilled. * Telephone Encounter - Sandra Cisneros LPN - 01/10/2024 7:49 AM EDTPending Prescriptions: Disp Refills Morphine Sulfate ER 30 MG Oral Tablet Exte*60 Tab*0 Sig: Take 1 Tablet by mouth in the morning and 1 Tablet before bedtime. Morphine Sulfate 15 MG Oral Tablet (Msir) 60 Tab*0 Sig: Take 1 Tablet by mouth every 4 hours as needed for Pain, Severe. * Telephone Encounter - Sandra Cisneros LPN - 01/10/2024 7:46 AM EDT I have reviewed the patients controlled substance dispensing history in the Prescription Drug Monitoring Program in compliance with the [place] regulations before prescribing a controlled substance. Were any discrepancies found:no Last prescribed 15m/26, 30m/25 Last Filled 15m/26, 30m/27 RX Due 15m/10, 30m/25 documented in this encounter Plan of Treatment Upcoming Encounters Date Type Department Care Team (Late st Contact Info) Description 01/25/2024 10:00 AM EDT Telemedicine Palliative Medicine, [facility] [address] [facility] 5th [place] [address] Nathalie Nichole PA-C [address] [place] [address] 01/27/2024 10:20 AM EDT Telemedicine Sleep Disorders, [address] [address] Holly Caal MD [address] [place] [address] 02/22/2024 11:30 AM EDT Imaging Radiology [facility] 1st [facility] [address] [facility] [place] [address] 02/28/2024 11:15 AM EDT [facility] [address] [place] [address] Clinic, Brain Tumor Multidisciplinary [address] [place] [address] 03/20/2024 10:50 AM EDT Office Visit [facility] [address] [place] [phone] Luz Maria Gama [address] [place] [address] 09/29/2024 1:00 PM EST Office Visit Neurology [facility] 200 [place] [address] Mariama Hinojosa DO [address] [place] [address] Scheduled Procedures Name Priority Associated Diagnoses Date/Ti [...] Documents on File Type Date Recorded Patient Customer Experience Manager Expl anation POLST 12/03/2023 9:15 AM [...] the patient have Health Care Power of Pulp Press Tender? No Code Status History Code Status Date [...] Advance Directives occurred with: Patient Care Teams Mail Machine Operator Relationship Specialty Start Date End Date Luz Maria Gama DO [address] [place] [address] PCP - General Family Medicine 01/04/23 documented as of this encounter
--- OUTSIDE RECORDS SUMMARY | 2024-05-06 15:37 | External Medical Summary | Summary of Care ---
Author Name Unknown Organization [facility] Address [address] [place] [address] Phone [phone] Care Team Providers Care Informatics Physician Name Role Phone Luz Maria Gama Primary Care Provider Reason for Visit * Reason Onset Date Comments Sleep Apnea Device 12/20/2023 Encounter Details Date Type Department Care Team (Late st Contact Info) Description 12/20/2023 Telephone Care Coordination and Integration [address] [place], [place] [phone] Morena Díaz, NOA [address] [place] [address] Sleep Apnea Device Allergies No known active allergiesdocumented as of this encounter (statuses as of 12/22/2023) Medications Medication Sig Dispensed Refills Start Date [...] below 140/90,Ischemic cardiomyopathy,Aristeo nary artery disease involving aniak coronary artery of aniak heart without angina pectoris,Dyslipidem ia, goal LDL below 100,Essential hypertension with goal blood pressure less than 140/90 Take 1 Tablet by mouth in the morning. 90 Tablet 0 06/24/2023 Active Doxycycline Monohydrate 50 MG Oral CapsuleIndications: [...] suspected opioid overdose. Seek medical help immediately. [email or web address] 1 mL 3 11/18/2023 Active Naloxone HCl 4 MG/0.1ML Nasal Liquid (Narcan Nasal) Administer 1 spray into 1 nostril for suspected opioid overdose. Seek immediate medical attention. https://www.ParStream.com/watch? v=[email or web address] 1 Each 3 11/18/2023 Active Sennosides 8.6 MG Oral Tablet (Senokot)Indication s:Constipation due to pain medication Take 2 Tablets by mouth at bedtime. 60 Tablet 0 12/01/2023 Active Polyethylene Glycol 3350 17 GM Oral Packet (Miralax)Indication s:Constipation due to pain medication Take 1 Packet by mouth in the morning. 14 Each 0 12/01/2023 Active levETIRAcetam 500 MG Oral Tablet (Keppra)Indications :Brain tumor (HCC),Brain mass Take 1 Tablet by mouth in the morning and 1 Tablet before bedtime. 60 Tablet 0 12/10/2023 Active Morphine Sulfate ER 30 MG Oral Tablet Extended Release (Ms Contin)Indications: Cancer related pain Take 1 Tablet by mouth in the morning and 1 Tablet before bedtime. 60 Tablet 0 12/14/2023 Active Morphine Sulfate 15 MG Oral Tablet (Msir)Indications:C ancer related pain Take 1 Tablet by mouth every 4 hours as needed for Pain, Severe. 60 Tablet 0 12/14/2023 Active Ondansetron 4 MG Oral Tablet Disintegrating (Zofran) Place 1 Tablet on tongue every 8 hours as needed for Nausea. Dissolve on tongue. 20 Tablet 0 11/18/2023 Discontinue d(Medicatio n/Dose Changed) Ondansetron HCl 8 MG Oral Tablet (Zofran) take 1 tablet every 8 hours as needed 60 Tablet 1 11/25/2023 Discontinue d(Refill) documented as of this encounter (statuses as of 12/22/2023) Active Problems Problem Noted Date Diagnosed Date [...] as of this encounter (statuses as of 12/22/2023) Resolved Problems Problem Noted Date Diagnosed Date [...] as of this encounter (statuses as of 12/22/2023) Immunizations Name Administration Dates Next Due COVID-19 [...] as of this encounter Progress Notes * Morena Díaz, RN - 12/20/2023 3:33 PM EDT Sleep Medicine provider, I spoke with a Candi, significant other for Remy Lujan. Remy has a CPAP mask (Dream Station 2) & is having a hard time getting his supplies for the CPAP machine paid for by [facility] [employer]. Patient was followed by sleep medicine in [place], last telephone encounter was from 2022, patient is now followed by Dr. Gama at the [facility]. Patient has been paying for the supplies himself, but he has had a recent dx of brain CA, no longerworks, so he wants the supplies to go thru [facility] [employer] insurance. The patient & his significant other do not know who he was getting his supplies thru or when he last got supplies. I need some guidance on how to go forward-patient is refusing to come into the office for a sleep medicine appointment due to currently getting chemo & radiation, not sure if a telemed appointment can be done since he has not been seen in over a year? Bottom line, new supply orders need to be sent to [facility] so they can can then send the orders to an approved supplier in order for [facility] to pay for the supplies. Any help that could be appreciated. Thank you, Morena Díaz, RN, BSN, [facility] Registered Nurse Traffic Rate ComputerCommercial Lawn SpecialistWashington Rural Health Collaborative [address] [facility] [phone] documented in this encounter Plan of Treatment Upcoming Encounters Date Type Department Care Team (Late st Contact Info) Description 01/19/2024 10:30 AM EDT Telemedicine Palliative Medicine, [facility] 400 [facility] 5th [place] [address] Nathalie Nichole PADenC [address] [place] [address] 02/22/2024 11:30 AM EDT Imaging Radiology [facility] 1st [facility] [address] [facility] [place] [address] 03/20/2024 10:50 AM EDT Office Visit [facility] [address] [place] [phone] Luz Maria Gama, DO [address] [place] [address] 09/29/2024 1:00 PM EST Office Visit Neurology [facility] 200 [place] [address] Mariama Hinojosa, DO [address] [place] [address] Scheduled Procedures Name Priority Associated Diagnoses Date/Ti [...] Documents on File Type Date Recorded Patient Social Media Campaign Manager Expl anation POLST 12/03/2023 9:15 AM [...] the patient have Health Care Power of Baffle Installer? No Code Status History Code Status Date [...] Advance Directives occurred with: Patient Care Teams Informatics Physician Relationship Specialty Start Date End Date Luz Maria Gama DO [address] [facility] [place] [address] PCP - General Family Medicine 01/04/23 documented as of this encounter
--- OUTSIDE RECORDS SUMMARY | 2024-05-06 15:37 | External Medical Summary | Summary of Care ---
Author Name Unknown Organization [facility] Address [address] [place] [address] Phone [phone] Care Team Providers Care Hand Bulldozer Name Role Phone Luz Maria Gama Primary Care Provider [phone] Reason for Referral * Evaluate & Treat - Unlimited Visits (Within 10 days (routine)) - Pending Review Specialty Diagnoses / Procedures Referred By Jerel jackson Referred To Contact Psychology Diagnoses Glioblastoma, IDH-wildtype (HCC) Anxiety state Nathalie Nichole PA-C [address] [place] [address] Referral ID Status Reason Start Date Expiration Date Visits Requested Visits Authorized [id number] Pending Review Specialty Services Required 01/25/[phone] Question Answer Referral Priority Within 10 days (routine) Where should this appointment be scheduled? [facility] Reason for Referral: Adjustment to Illness Comments And agitation/anxiety associated recently. Reason for Visit * Reason Comments Follow Up Encounter Details Date Type Department Care Team (Late st Contact Info) Description 01/25/2024 10:00 AM EDT Telemedicine Palliative Medicine, [address] 5[address] [place] [address] Nathalie Nichole PA-C [address] [place] [address] Glioblastoma, IDH-wildtype (HCC)*; Cancer related pain; Anxiety state; Therapeutic opioid-induced constipation (OIC); Encounter for palliative care Allergies No known active allergiesdocumented as of this encounter (statuses as of 01/25/2024) Medications Medication Sig Dispensed Refills Start Date [...] below 140/90,Ischemic cardiomyopathy,Coron christiane artery disease involving port gam[place] coronary artery of [place] heart without angina pectoris,Dyslipidemi a, goal LDL [...] opioid overdose. Seek medical help immediately. http://youtu.be/- [email or web address] 1 mL 3 11/18/2023 Active Naloxone HCl 4 MG/0.1ML Nasal Liquid (Narcan Nasal) Administer 1 spray into 1 nostril for suspected opioid overdose. Seek immediate medical attention. https://www.Lonestar [employer].com/watch?v=v2 [email or web address] 1 Each 3 11/18/2023 Active Sennosides 8.6 [...] as of this encounter (statuses as of 01/25/2024) Active Problems Problem Noted Date Diagnosed Date [...] as of this encounter (statuses as of 01/25/2024) Resolved Problems Problem Noted Date Diagnosed Date [...] as of this encounter (statuses as of 01/25/2024) Immunizations Name Administration Dates Next Due COVID-19 mRNA, LNP-s, No Pre serve, 2-Dose Series ([employer]) 12/02/2020,10/28/2020 Pneumococcal Polysaccharide PPV23 (Pneumovax) Seasonal Influenza, [...] Team (Late st Contact Info) Description 01/27/2024 10:20 AM EDT Telemedicine Sleep Disorders, [facility] [address] [place] [address] Holly Caal MD 400 [facility] [place] [address] 02/22/2024 11:30 AM EDT Imaging Radiology [address], [place] [address] [facility] [place] [address] 02/28/2024 11:15 AM EDT Telemedicine Neurosurgery, [place] [address] [place] [address] Clinic, Brain Tumor Multidisciplinary [address] [place] [address] 03/08/2024 2:00 PM EDT Office Visit Palliative Medicine [facility] 200 [place] [address] Keisha Tompkins MD [facility] [address] 03/20/2024 10:50 AM EDT Office Visit Family [facility] [address] [place] [phone] Luz Maria Gama [address] [place] [address] 09/29/2024 1:00 PM EST Office Visit Neurology [facility] [address] [facility] [place] [address] Mariama Hinojosa DO [address] [place] [address] Scheduled Procedures Name Priority Associated Diagnoses Date/Ti me COLONOSCOPY FLEXIBLE PROXIMA L DIAGNOSTIC Recall Encounter for screening colonoscopy Scheduled Referrals Name Type Priority Associated Diagnoses Orde r Schedule ONCOLOGY BEHAVIORAL HEALTH REFERRAL OP Referral Within 10 days (routine) Glioblastoma, IDH-wildtype (HCC) Anxiety state Ordered: 01/25/2024 Health Maintenance Due Date Last Done Comments [...] Visit Diagnoses Diagnosis Glioblastoma, IDH-wildtype (HCC)- Primary Cancer related pain Neoplasm related pain (acute) (chronic) Anxiety state Anxiety state, unspecified Therapeutic opioid-induced constipation (OIC) Encounter for palliative care documented in this encounter Advance Directives Documents on File Type Date Recorded Patient Skip Hoist Operator Expl anation POLST 12/03/2023 9:15 AM [...] the patient have Health Care Power of Manufacturing Operations Manager? No Code Status History Code Status [...] Advance Directives occurred with: Patient Care Teams Hand Bulldozer Relationship Specialty Start Date End Date Luz Maria Gama DO [address] [place] [address] PCP - General Family Medicine 01/04/23 documented as of this encounter
--- OUTSIDE RECORDS SUMMARY | 2024-05-06 15:37 | External Medical Summary | Summary of Care ---
Author Name Unknown Organization [facility] Address [address] [place] [address] Phone [phone] Care Team Providers Care Auto Radiator Specialist Name Role Phone Luz Maria Gama Primary Care Provider Reason for Visit * Reason Onset Date Comments Sleep Apnea Device 12/20/2023 Encounter Details Date Type Department Care Team (Late st Contact Info) Description 12/20/2023 Telephone Care Coordination and Integration [address] [place], [place] [id number] Morena Díaz, NOA [address] [place] [address] Sleep Apnea Device Allergies No [...] below 140/90,Ischemic cardiomyopathy,Beltrán ry artery disease involving tejon coronary artery of tejon heart without angina pectoris,Dyslipidemia , goal LDL below 100,Essential hypertension with goal blood pressure less than 140/90 Take 1 Tablet by mouth in the morning. 90 Tablet 0 06/24/2023 Active Doxycycline Monohydrate 50 MG Oral CapsuleIndications:Ro [...] suspected opioid overdose. Seek medical help immediately. [email or web address]/ -[email or web address] 1 mL 3 11/18/2023 Active Ondansetron 4 MG Oral Tablet Disintegrating (Zofran) Place 1 Tablet on tongue every 8 hours as needed for Nausea. Dissolve on tongue. 20 Tablet 0 11/18/2023 Active Naloxone HCl 4 MG/0.1ML Nasal Liquid (Narcan Nasal) Administer 1 spray into 1 nostril for suspected opioid overdose. Seek immediate medical attention. https://www.Linkwell Healthe.com/watch?v= [email or web address] 1 Each 3 11/18/2023 Active Ondansetron HCl 8 MG Oral Tablet (Zofran) take 1 tablet every 8 hours as needed 60 Tablet 1 11/25/2023 Active Sennosides 8.6 MG Oral Tablet (Senokot)Indications: Constipation due to pain medication Take 2 Tablets by mouth at bedtime. 60 Tablet 0 12/01/2023 Active Polyethylene Glycol 3350 17 GM Oral Packet (Miralax)Indications: Constipation due to pain medication Take 1 Packet by mouth in the morning. 14 Each 0 12/01/2023 Active levETIRAcetam 500 MG Oral Tablet (Keppra)Indications:B [...] Pain, Severe. 60 Tablet 0 12/14/2023 Active documented as of this encounter (statuses [...] of this encounter Progress Notes * Morena Díaz RN - 12/20/2023 3:33 PM EDT Sleep Medicine provider, I spoke with a Candi, significant other for Remy Lujan. Remy has a CPAP mask (Dream Station 2) & is having a hard time getting his supplies for the CPAP machine paid for by [employer]. Patient was followed by sleep medicine in [place], last telephone encounter was from 2022, patient is now followed by Dr. Gama at the [facility]. Patient has been paying for the supplies himself, but he has had a recent dx of brain CA, no longerworks, so he wants the supplies to go thru [employer] insurance. The patient & his significant other [...] supply orders need to be sent to [facility] so they can can then send the orders to an approved supplier [facility]. Any help that could be appreciated. Thank you, Morena Díaz RN, BSN, [facility] Registered Nurse Heating Element WinderTower Dragline OperatorBenjamin V[place] [address] [address] [facility] [phone] documented in this encounter Plan of Treatment Upcoming Encounters Date Type Department Care Team (Late st Contact Info) Description 02/22/2024 11:30 AM EDT Imaging Radiology [facility]st [facility] [address] [facility] [place] [id number] 03/20/2024 10:50 AM EDT Office Visit [place] [address] [address] [facility] [place] [address] Luz Maria Gama, [address] [place], [place] [phone] 09/29/2024 1:00 PM EST Office Visit Neurology [facility] [address] [facility], [place] [phone] Mariama Hinojosa, DO [address] [place] [address] Scheduled Procedures Name Priority Associated Diagnoses Date/Ti [...] Documents on File Type Date Recorded Patient Dance Studio Manager Expl anation POLST 12/03/2023 9:15 AM [...] the patient have Health Care Power of Tire Beader Maker? No Code Status History Code Status Date [...] Advance Directives occurred with: Patient Care Teams Auto Radiator Specialist Relationship Specialty Start Date End Date Luz Maria Gama DO [address] [place] [address] PCP - General Family Medicine 01/04/23 documented as of this encounter
--- OUTSIDE RECORDS SUMMARY | 2024-05-06 15:37 | External Medical Summary | Summary of Care ---
Author Name Unknown Organization [facility] Address [address] [place] [address] Phone [phone] Care Team Providers Care Dispatch Officer Name Role Phone Luz Maria Gama Primary Care Provider Reason for Visit * Reason Onset Date Comments Appointment 12/24/2023 Encounter Details Date Type Department Care Team (Late st Contact Info) Description 12/24/2023 Telephone Neurosurgery, [place] [address] [place], [place] [id number] Services, Scheduling [address] [place] [address] Appointment Allergies No known active allergiesdocumented as of this encounter (statuses as of 12/28/2023) Medications Medication Sig Dispensed Refills Start Date [...] below 140/90,Ischemic cardiomyopathy,Coron christiane artery disease involving coy[place] coronary artery of coyote valley heart without angina pectoris,Dyslipidemi a, goal LDL below 100,Essential hypertension with goal blood pressure less than 140/90 Take 1 Tablet by mouth in the morning. 90 Tablet 0 06/24/2023 Active Doxycycline Monohydrate 50 MG Oral CapsuleIndications:R [...] suspected opioid overdose. Seek medical help immediately. http://iRewind.Scoop.it/- [email or web address] 1 mL 3 11/18/2023 Active Naloxone HCl 4 MG/0.1ML Nasal Liquid (Narcan Nasal) Administer 1 spray into 1 nostril for suspected opioid overdose. Seek immediate medical attention. https://www.Thereson S.p.A..com/watch?v=v2 6lJas2XdD 1 Each 3 11/18/2023 Active Sennosides 8.6 MG Oral Tablet (Senokot)Indications :Constipation due to pain medication Take 2 Tablets by mouth at bedtime. 60 Tablet 0 12/01/2023 Active Polyethylene Glycol 3350 17 GM Oral Packet (Miralax)Indications :Constipation due to pain medication Take 1 Packet by mouth in the morning. 14 Each 0 12/01/2023 Active levETIRAcetam 500 MG Oral Tablet (Keppra)Indications: [...] Severe. 60 Tablet 0 12/14/2023 Active Ondansetron HCl 8 MG Oral Tablet (Zofran)Indications: Nausea Take 1 Tablet by mouth every 8 hours as needed for Nausea. 90 Tablet 1 12/22/2023 Active documented as of this encounter (statuses as of 12/28/2023) Active Problems Problem Noted Date Diagnosed Date [...] as of this encounter (statuses as of 12/28/2023) Resolved Problems Problem Noted Date Diagnosed Date [...] as of this encounter (statuses as of 12/28/2023) Immunizations Name Administration Dates Next Due COVID-19 [...] encounter Miscellaneous Notes * Telephone Encounter - Umu Terry OSA - 12/28/2023 9:59 AM EDT TY * Telephone Encounter - Salina Mccauley RN - 12/24/2023 2:18 PM EDT Patient scheduled for 02/27 at 11:15am in [facility]. Please call and let them know. Thanks! * Telephone Encounter - Umu Terry OSA - 12/24/2023 1:20 PM EDT Who is calling: Significant other - Candi Mulligan Pt is established with: [facility] Reason for call: Pt's requesting to schedule return video appt with the [facility]. Imaging scheduled for February 21 Unable to schedule for this clinic. Plz contact How long issue has been going on: Additional details: Call back number: [phone] Pharmacy (if applicable): documented in this encounter Plan of Treatment Upcoming Encounters Date Type Department Care Team (Late st Contact Info) Description 01/19/2024 10:30 AM EDT Telemedicine Palliative Medicine, [address] 5th [place] [address] Nathalie Nichole PADenC [address] [place] [address] 02/22/2024 11:30 AM EDT Imaging Radiology [facility] 1st [facility] [address] [place] [address] 02/28/2024 11:15 AM EDT Telemedicine Neurosurgery, [place] [address] [place] [address] Clinic, Brain Tumor Multidisciplinary [address] [place] [address] 03/20/2024 10:50 AM EDT Office Visit [place] [address] [place] [phone] Luz Maria Gama, [address] [place] [address] 09/29/2024 1:00 PM EST Office Visit Neurology [facility] [address] [facility] [place] [address] Mariama Hinojosa, [address] [place] [address] Scheduled Procedures Name Priority Associated Diagnoses Date/Ti [...] Documents on File Type Date Recorded 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 No Code Status History Code Status [...] Advance Directives occurred with: Patient Care Teams Dispatch Officer Relationship Specialty Start Date End Date Luz Maria Gama DO [address] [place] [address] PCP - General Family Medicine 01/04/23 documented as of this encounter
--- OUTSIDE RECORDS SUMMARY | 2024-05-06 15:37 | External Medical Summary | Summary of Care ---
Author Name Unknown Organization [facility] [address] [facility] [address] Phone [phone] Care Team Providers Care Shoe Repair Cobbler Name Role Phone Nicole Gramajo DO Primary Care Provider Reason for Visit * Reason Onset Date Comments Medication Refill 01/07/2024 Encounter Details Date Type Department Care Team (Late st Contact Info) Description 01/07/2024 Refill [place] [address] [place] [address] Nicole Gramajo DO [address] [place] [address] Rosacea Allergies No known active [...] below 140/90,Ischemic cardiomyopathy,Cor onary artery disease involving wales coronary artery of wales heart without angina pectoris,Dyslipide kavon, goal LDL [...] suspected opioid overdose. Seek medical help immediately. http://[email or web address]/ [email or web address] 1 mL 3 11/18/2023 Active Naloxone HCl 4 MG/0.1ML Nasal Liquid (Narcan Nasal) Administer 1 spray into 1 nostril for suspected opioid overdose. Seek immediate medical attention. https://www.ZUGGI.com/watch?v= i16rMdc1TgT 1 Each 3 11/18/2023 Active Sennosides 8.6 [...] Pain, Severe. 60 Tablet 0 01/10/2024 Active Doxycycline Monohydrate 50 MG Oral CapsuleIndications :Rosacea Take 1 capsule by mouth once daily 90 Capsule 1 06/24/2023 Discontinue d(Refill) documented as of [...] mRNA, LNP-s, No Pre serve, 2-Dose Series (Attero) 12/02/2020,10/28/2020 Pneumococcal Polysaccharide PPV23 (Pneumovax) Seasonal Influenza, [...] Telephone Encounter - Nicole Gramajo DO - 01/10/2024 12:57 PM EDTSigned Prescriptions: Disp Refills Doxycycline Monohydrate 50 MG Oral Capsule 90 Cap*1 Sig: Take 1 capsule by mouth once daily Authorizing Provider: NICOLE GRAMAJO * Telephone Encounter - Sussy Capps LPN - 01/10/2024 8:32 AM EDTPending Prescriptions: Disp Refills Doxycycline Monohydrate 50 MG Oral Capsule 90 Cap*1 Sig: Take 1 capsule by mouth once daily * Telephone Encounter - Alek Garcia - 01/08/2024 8:22 AM EDTPending Prescriptions: Disp Refills Doxycycline Monohydrate 50 MG Oral Capsule 90 Cap*1 Sig: Take 1capsule by mouth once daily documented in this encounter Plan of Treatment Upcoming Encounters Date Type Department Care Team (Late st Contact Info) Description 01/25/2024 10:00 AM EDT Telemedicine Palliative Medicine, [address] 5th Floor [place], [place] [phone] Nathalie Nichole PA-C [address] [place] [address] 01/27/2024 10:20 AM EDT Telemedicine Sleep Disorders, [address] [id number] Holly Caal MD [address] [place] [id number] 02/22/2024 11:30 AM EDT Imaging Radiology [facility] 1st [facility] [address] [facility] [place] [address] 02/28/2024 11:15 AM EDT Telemedicine Neurosurgery, [place] [address] [place] [facility] [place] [address] Clinic, Brain Tumor Multidisciplinary [address] [place] [address] 03/20/2024 10:50 AM EDT Office Visit [facility] [address] [place] [phone] Nicole Gramajo, [address] [place] [address] 09/29/2024 1:00 PM EST Office Visit Neurology [facility] [address] [place] [address] Mariama Hinojosa [address] [place] [address] Scheduled Procedures Name Priority Associated Diagnoses Date/Ti [...] Documents on File Type Date Recorded 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 No Code Status History Code Status Date [...] Advance Directives occurred with: Patient Care Teams Shoe Repair Cobbler Relationship Specialty Start Date End Date Nicole Gramajo DO [address] [facility] [address] PCP - General Family Medicine 01/04/23 documented as of this encounter
--- OUTSIDE RECORDS SUMMARY | 2024-05-06 15:37 | External Medical Summary | Summary of Care ---
Author Name Unknown Organization [facility] Address [address] [place] [address] Phone [phone] Care Team Providers Care Drafting Technician Name Role Phone Luz Maria Gama Primary Care Provider Reason for Visit * Reason Onset Date Comments Medication Refill 01/07/2024 Encounter Details Date Type Department Care Team (Late st Contact Info) Description 01/07/2024 Refill Palliative Medicine, [facility] [address] [facility] 5th Floor [place], [place] [phone] Nathalie Nichole, PA-C [address] [place], [place] [phone] Nausea Allergies No known active allergiesdocumented as [...] below 140/90,Ischemic cardiomyopathy,Cor onary artery disease involving poarch coronary artery of poarch heart without angina pectoris,Dyslipide kavon, goal LDL [...] suspected opioid overdose. Seek medical help immediately. http://to-BBBu.be/ [email or web address] 1 mL 3 11/18/2023 Active Naloxone HCl 4 MG/0.1ML Nasal Liquid (Narcan Nasal) Administer 1 spray into 1 nostril for suspected opioid overdose. Seek immediate medical attention. https://www.[employer] Tilee.com/watch?v= c10bCqj1FuW 1 Each 3 11/18/2023 Active Sennosides 8.6 [...] 01/25/2024 10:00 AM EDT Telemedicine Palliative Medicine, [address] 5th [place] [address] Nathalie Nichole PANawaf [address] [place] [address] [place] [address] 01/27/2024 10:20 AM EDT Telemedicine Sleep Disorders, [address] [place] [address] Holly Caal MD [address] [place] [address] [place] [id number] 02/22/2024 11:30 AM EDT Imaging Radiology [facility] 1st [facility] [address] [facility] [place] [address] 02/28/2024 11:15 AM EDT 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 No Code Status History Code Status [...] Advance Directives occurred with: Patient Care Teams Drafting Technician Relationship Specialty Start Date End Date Luz Maria Gaam DO [address] [place] [address] PCP - General Family Medicine 01/04/23 documented as of this encounter
--- OUTSIDE RECORDS SUMMARY | 2024-05-06 15:37 | External Medical Summary | Summary of Care ---
Author Name Unknown Organization [facility] Address [address] [place] [address] Phone [phone] Care Team Providers Care Paper Production Engineer Name Role Phone Luz Maria Gama Primary Care Provider Encounter Details Date Type Department Care Team (Late st Contact Info) Description 12/15/2023 3:30 PM EDT Scheduled Telephone Care Coordination and Integration [address] [place], [place] [phone] Remy Cain [facility] Health Manager Of Case Management [address] [place] [address] Allergies No known active allergiesdocumented as of this encounter (statuses as of 12/15/2023) Medications Medication Sig Dispensed Refills Start Date [...] below 140/90,Ischemic cardiomyopathy,Beltrán ry artery disease involving tribal coronary artery of tribal heart without angina pectoris,Dyslipidemia , goal LDL below 100,Essential hypertension with goal blood pressure less than 140/90 Take 1 Tablet by mouth in the morning. 90 Tablet 0 06/24/2023 Active Doxycycline Monohydrate 50 MG Oral CapsuleIndications:Ro moises Take 1 capsule by mouth once daily [...] suspected opioid overdose. Seek medical help immediately. http://Red Lozenge, inc.[email or web address]/ [email or web address] 1 mL 3 11/18/2023 Active Ondansetron 4 MG Oral Tablet Disintegrating (Zofran) Place 1 Tablet on tongue every 8 hours as needed for Nausea. Dissolve on tongue. 20 Tablet 0 11/18/2023 Active Naloxone HCl 4 MG/0.1ML Nasal Liquid (Narcan Nasal) Administer 1 spray into 1 nostril for suspected opioid overdose. Seek immediate medical attention. https://www.Cirrus Data Solutionse.com/watch?v= u61dFzr9BaG 1 Each 3 11/18/2023 Active Ondansetron HCl 8 MG Oral Tablet (Zofran) take 1 tablet every 8 hours as needed 60 Tablet 1 11/25/2023 Active Temozolomide 100 MG Oral Capsule (Temodar) take 200 mg (2 capsules) by mouth daily. take with radiation therapy 30 Capsule 1 11/25/2023 Active Sennosides 8.6 MG Oral [...] as of this encounter (statuses as of 12/15/2023) Active Problems Problem Noted Date Diagnosed Date [...] as of this encounter (statuses as of 12/15/2023) Resolved Problems Problem Noted Date Diagnosed Date [...] as of this encounter (statuses as of 12/15/2023) Immunizations Name Administration Dates Next Due COVID-19 [...] as of this encounter Progress Notes * Remy Cain Community Health Manager Of Case Management - 12/15/2023 4:01 PM EDT Telemedicine visit: No Community Health Manager Of Case Management (GIANNI) documentation: CHW follow up phone call for RNCM. CHW asked to speak with the patient, who could be heard in the background. Patient's significant other, Candi insisted on speaking. She reports that the patient has started chemotherapy and radiation treatment and is having some reactions to that. CHW asked for clarification. They explained that the patient is just feeling tired. Patient reports to having a little pain at the incision site this morning. Candi reports that the palliative doctor has prescribed Morphine ER, twice daily and immediate release Morphine as needed for the pain. Patient and Candi deny any needs at this time. Candi reports having the RNCM's contact information and is aware to call with questions/concerns. Wesley Cain Community Health Worker [facility]BD[facility] - [place] [phone] documented in this encounter Plan of Treatment Upcoming Encounters Date Type Department Care Team (Late st Contact Info) Description 12/22/2023 9:30 AM EDT Telemedicine Palliative Medicine, [facility] [address] [facility] 5th [place] [address] Nathalie Nichole PANawaf [address] [place] [address] 02/22/2024 11:30 AM EDT Imaging Radiology [facility] 1st [facility] [address] [facility] [place] [address] 03/20/2024 10:50 AM EDT Office Visit Family [facility] [place] [address] [place] [phone] Luz Maria Gama, [address] [place] [address] 09/29/2024 1:00 PM EST Office Visit Neurology [facility] [address] [place] [address] Mariama Hinojosa, DO [address] [place] [address] Scheduled Procedures Name Priority Associated Diagnoses Date/Ti me COLONOSCOPY FLEXIBLE PROXIMA L DIAGNOSTIC Recall Encounter for screening colonoscopy Health Maintenance Due Date Last Done Comments COVID-19 Vaccine (2022-2 4 season) 2023 06/08/2021, 12/02/2020, 10/28/2020 Influenza Vaccine (FLU shot) (#1) 2023 020, 06/30/2018 Depression Screening 11/18/2024 11/19/2023 Colonoscopy Discontinued 09/01/2016, 09/01/2016 Colorectal Cancer Screening Discontinued Albumin/Creatinine Ratio Discontinued 01/10/2019 Zoster Vaccines Completed 05/19/2021, 07/03/2020 Cologuard Discontinued Fecal Occult Blood Test Discontinued Sigmoidoscopy Discontinued documented as of this encounter Medical Devices Not on filedocumented as of this encounter Advance Directives Documents on File Type Date Recorded Patient Customer Records Division Supervisor Expl anation POLST 12/03/2023 9:15 AM POLST [...] the patient have Health Care Power of Fish Hatchery Specialist? No Code Status History Code Status [...] Advance Directives occurred with: Patient Care Teams Paper Production Engineer Relationship Specialty Start Date End Date Luz Maria Gama DO [address] [facility] [place] [address] PCP - General Family Medicine 01/04/23 documented as of this encounter
--- OUTSIDE RECORDS SUMMARY | 2024-05-06 15:37 | External Medical Summary | Summary of Care ---
Author Name Unknown Organization [facility] Address [address] [place] [address] Phone [phone] Care Team Providers Care Journalism Professor Name Role Phone Luz Maria Gama Primary Care Provider Reason for Visit * Reason Onset Date Comments Sleep Apnea Device 12/20/2023 Encounter Details Date Type Department Care Team (Late st Contact Info) Description 12/20/2023 Telephone Care Coordination and Integration [address] [place], [place] [phone] Morena Díaz, NOA [address] [place] [address] Sleep Apnea Device Allergies No known active allergiesdocumented as of this encounter (statuses as of 01/06/2024) Medications Medication Sig Dispensed Refills Start Date [...] below 140/90,Ischemic cardiomyopathy,Aristeo nary artery disease involving [place] coronary artery of [place] heart without angina pectoris,Dyslipidem ia, goal LDL [...] suspected opioid overdose. Seek medical help immediately. http://Munch [email or web address] [email or web address] /[email or web address] 1 mL 3 11/18/2023 Active Naloxone HCl 4 MG/0.1ML Nasal Liquid (Narcan Nasal) Administer 1 spray into 1 nostril for suspected opioid overdose. Seek immediate medical attention. https://www.Omnicademy.com/watch? v=u24aClm4TwJ 1 Each 3 11/18/2023 Active Sennosides 8.6 [...] as of this encounter (statuses as of 01/06/2024) Active Problems Problem Noted Date Diagnosed Date [...] as of this encounter (statuses as of 01/06/2024) Resolved Problems Problem Noted Date Diagnosed Date [...] as of this encounter (statuses as of 01/06/2024) Immunizations Name Administration Dates Next Due COVID-19 [...] for the CPAP machine paid for by [facility] [employer]. Patient was followed by sleep medicine in [place], last telephone encounter was from 2022, patient is now followed by Dr. Gama at the [facility]. Patient has been paying for the supplies himself, but he has had a recent dx of brain CA, no longerworks, so he wants the supplies to go thru [facility] [employer] insurance. The patient & his significant other [...] to an approved supplier in order for [facility] to pay for the supplies. Any help that could be appreciated. Thank you, Morena Díaz, RN, BSN, [facility] Registered Nurse Farm Equipment AssemblerProcessor Helper[address] [phone] documented in this encounter Miscellaneous Notes * Telephone Encounter - Adrianna Stark, ALEKSANDR - 01/06/2024 7:28 PM EDT Pt scheduled to see Dr Caal for follow up visit by video on 01/27/24 at 10:20 AM. documented in this encounter Plan of Treatment Upcoming Encounters Date Type Department Care Team (Late st Contact Info) Description 01/25/2024 10:00 AM EDT Telemedicine Palliative Medicine, [address] 5th [place] [address] Nathalie Nichole PA-C [address] [place] [address] 01/27/2024 10:20 AM EDT Telemedicine Sleep Disorders, [address] [address] Holly Caal MD [address] [place] [address] 02/22/2024 11:30 AM EDT Imaging Radiology [facility] 1st [facility], [address] [place] [address] 02/28/2024 11:15 AM EDT Telemedicine Neurosurgery, [address] [place] [address] Clinic, Brain Tumor Multidisciplinary [address] [place] [address] 03/20/2024 10:50 AM EDT Office Visit [facility] [address] [place] [phone] Luz Maria Gama, [address] [place] [address] 09/29/2024 1:00 PM EST Office Visit Neurology [facility] [address] [place] [address] Mariama Hinojosa, DO [address] [place] [address] Scheduled Procedures Name Priority Associated Diagnoses Date/Ti me COLONOSCOPY FLEXIBLE PROXIMA L DIAGNOSTIC Recall Encounter for screening colonoscopy Health Maintenance Due Date Last Done Comments COVID-19 Vaccine ( - 2022-2 4 season) 2023 06/08/2021, 12/02/2020, [...] Documents on File Type Date Recorded Patient Exceptional Student Education Aide Expl anation POLST 12/03/2023 9:15 AM POLST [...] the patient have Health Care Power of Channel Director? No Code Status History Code Status Date [...] Advance Directives occurred with: Patient Care Teams Journalism Professor Relationship Specialty Start Date End Date Luz Maria Gama DO [address] [place] [address] PCP - General Family Medicine 01/04/23 documented as of this encounter
--- OUTSIDE RECORDS SUMMARY | 2024-05-06 15:37 | External Medical Summary | Summary of Care ---
Author Name Unknown Organization [facility] Address [address] [place] [address] Phone [phone] Care Team Providers Care Human Resources Records Clerk Name Role Phone Luz Maria Gama Primary Care Provider Reason for Visit * Reason Onset Date Comments Medication Refill 01/07/2024 Encounter Details Date Type Department Care Team (Late st Contact Info) Description 01/07/2024 Refill Neurosurgery, [place] [address] [place], [place] [id number] Honey Souza IV, PA-C [address] [place] [address] Brain tumor (HCC); Brain mass [...] below 140/90,Ischemic cardiomyopathy,Cor onary artery disease involving [place] coronary artery of [place] heart without angina pectoris,Dyslipide kavon, goal LDL [...] suspected opioid overdose. Seek medical help immediately. [email or web address] 1 mL 3 11/18/2023 Active Naloxone HCl 4 MG/0.1ML Nasal Liquid (Narcan Nasal) Administer 1 spray into 1 nostril for suspected opioid overdose. Seek immediate medical attention. https://www.Vasopharm.com/watch?v= [email or web address] 1 Each 3 11/18/2023 Active Sennosides 8.6 [...] IV * Telephone Encounter - Norah Lin [facility] - 01/11/2024 10:57 AM EDT Pending Prescriptions: Disp Refills levETIRAcetam 500 MG Oral Tablet (Keppra) 60 Tab*2 Sig: Take 1 Tablet by mouth in the morning and 1 Tablet before bedtime. * Telephone Encounter - Norah Lin [facility] - 01/11/2024 10:52 AM EDT Keppra was started after craniotomy to prevent seizures. Please approve if appropriate to continue. Thank you, Norah Lin, PharmD Clinical Pharmacist [facility] ([facility] ([facility] [phone] 01/11/2024, 10:55 AM * Telephone Encounter - Alek Garcia - 01/08/2024 6:20 AM EDTPending Prescriptions: Disp Refills levETIRAcetam 500 MG Oral Tablet (Keppra) 60 Tab*0 Sig: Take 1 Tablet by mouth in the morning and 1 Tablet before bedtime. * Telephone Encounter - Alek Garcia - 01/08/2024 6:18 AM EDT Did you pend patient's preferred pharmacy and medication before forwarding?yes Pharmacy: [facility] [address] Pending Prescriptions: Disp Refills levETIRAcetam 500 [...] 01/25/2024 10:00 AM EDT Telemedicine Palliative Medicine, [facility] [address] [facility] 5th [place] [address] Nathalie Nichole PA-C [address] [place] [address] 01/27/2024 10:20 AM EDT Telemedicine Sleep Disorders, [address] [address] Holly Caal MD [address] [place] [address] 02/22/2024 11:30 AM EDT Imaging Radiology [facility] 1st [facility] [address] [facility] [place] [address] 02/28/2024 11:15 AM EDT [facility] [address] [place] [address] Clinic, Brain Tumor Multidisciplinary [address] [place] [address] 03/20/2024 10:50 AM EDT Office Visit [facility] [address] [place] [facility] [place] [phone] Luz Maria Gama [address] [place] [address] 09/29/2024 1:00 PM EST Office Visit Neurology [facility] [address] [place] [address] Mariama Hinojosa, DO [address] [place] [address] Scheduled Procedures Name Priority Associated Diagnoses Date/Ti [...] Documents on File Type Date Recorded Patient Teaching Supervisor Expl anation POLST 12/03/2023 9:15 AM [...] the patient have Health Care Power of Department Store Manager? No Code Status History Code Status [...] Advance Directives occurred with: Patient Care Teams Human Resources Records Clerk Relationship Specialty Start Date End Date KoLuz Maria roe DO [address] [place] [address] PCP - General Family Medicine 01/04/23 documented as of this encounter
--- OUTSIDE RECORDS SUMMARY | 2024-05-06 15:37 | External Medical Summary | Summary of Care ---
Author Name Unknown Organization [facility] Address [address] [place] [address] Phone [phone] Care Team Providers Care Chief Engineer'S Helper Name Role Phone Luz Maria Gama Primary Care Provider [phone] Reason for Visit * Reason Comments Follow Up Encounter Details Date Type Department Care Team (Late st Contact Info) Description 12/22/2023 9:30 AM EDT Telemedicine Palliative Medicine, [address] 5th Floor [place], [place] [phone] Nathalie Nichole PA-C [address] [place] [phone] Glioblastoma, IDH-wildtype (HCC)*; Cancer related pain; Nausea; Therapeutic opioid-induced constipation (OIC); Goals of care, counseling/discussion Allergies No known active allergiesdocumented as of [...] below 140/90,Ischemic cardiomyopathy,Aristeo 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 Seek medical help immediately. [email or web address].be [email or web address] 1 mL 3 11/18/2023 Active Naloxone HCl 4 MG/0.1ML Nasal Liquid (Narcan Nasal) Administer 1 spray into 1 nostril for suspected opioid overdose. Seek immediate medical attention. https://www.Gumroad.com/watch? v=[email or web address] 1 Each 3 11/18/2023 Active Sennosides 8.6 [...] for Nausea. 90 Tablet 1 12/22/2023 Active Ondansetron 4 MG Oral Tablet Disintegrating (Zofran) Place 1 Tablet on tongue every 8 hours as needed for Nausea. Dissolve on tongue. 20 Tablet 0 11/18/2023 4 Discontinue d(Medicatio n/Dose Changed) Ondansetron HCl 8 MG Oral Tablet (Zofran) take 1 tablet every 8 hours as needed 60 Tablet 1 11/25/2023 4 Discontinue d(Refill) documented as of this [...] 01/19/2024 10:30 AM EDT Telemedicine Palliative Medicine, [facility] [address] [facility] 5th Floor [place] [address] Nathalie Nichole PA-C [address] [facility] [place] [address] 02/22/2024 11:30 AM EDT Imaging Radiology [facility] [address] [place] [address] 03/20/2024 10:50 AM EDT Office Visit [address] [place] [phone] Luz Maria Gama, DO [address] [place] [address] 09/29/2024 1:00 PM EST Office Visit Neurology [facility] [place] [address] [place] [address] Mariama Hinojosa, DO [address] [facility], [place] [phone] Scheduled Procedures Name Priority Associated Diagnoses Date/Ti [...] related pain (acute) (chronic) Nausea Nausea alone Therapeutic opioid-induced constipation (OIC) Goals of care, counseling/discussion Other specified counseling documented in this encounter Advance Directives Documents on File Type Date Recorded Patient Claims Examiner Expl anation POLST 12/03/2023 9:15 AM [...] the patient have Health Care Power of Component Prep Operator? No Code Status History Code Status [...] Advance Directives occurred with: Patient Care Teams Chief Engineer'S Helper Relationship Specialty Start Date End Date Luz Maria Gama DO [address] [facility] [place] [address] PCP - General Family Medicine 01/04/23 documented as of this encounter
--- NOTE | 2024-05-06 15:38 | Emergency Department Note ---
Impression & Plan Pneumoperitoneum of unknown etiology, Right lower quadrant abdominal pain, Pneumomediastinum ED Provider Note NAME: JUANCALROS BOLDEN AGE: 58 SEX: M : 1965 ARRIVES VIA: Walk-In INFORMANT: Patient, the patient's significant other ED PROVIDER(S): Dominik Orellana DO CHIEF COMPLAINT: Abdominal pain HPI: The patient is a 58-year-old male who presented to the emergency department for an evaluation of abdominal pain. The patient had urinary symptoms earlier in the week. He had symptoms for approximately 7 days. He was seen by his primary oncologist. He has a history of glioblastoma. He was started on an antibiotic even though his urine was not convincingly consistent with a urine infection they felt his symptoms were so he was started on an antibiotic but no improvement. Today he continues to have worsening lower abdominal pain so his significant other brought him to the emergency department for further evaluation. ROS: See above HPI for pertinent positives & negatives. A total of 10 systems reviewed and were otherwise negative. PAST MEDICAL HISTORY: See Below PAST SURGICAL HISTORY: See Below FAMILY HISTORY: See Below SOCIAL HISTORY: See Below HOME MEDICATIONS: See Below ALLERGIES: See Below VITALS: See Below PHYSICAL EXAMINATION: GENERAL: Patient is awake alert in no acute distress patient is resting comfortably and showing no signs of anxiety EYES: The conjunctivae are clear. The pupils are round and reactive. EARS, NOSE, MOUTH AND THROAT: The nose is without any evidence of any deformity. Mucous membranes are moist. Tongue is midline. NECK: The neck is nontender and supple. RESPIRATORY: Normal respiratory effort is noted there is no evidence of wheezing rhonchi or rales CARDIOVASCULAR: Regular rate and rhythm noted there no murmurs rubs or gallops normal S1 normal S2. GASTROINTESTINAL: The abdomen was distended. There is right lower quadrant tenderness to palpation which was moderate. MUSCULOSKELETAL/EXTREMITIES: There is no evidence of gross deformity full range of motion is noted in the hips and shoulders. SKIN: There is no obvious evidence of any rash. There are no petechiae, pallor or cyanosis noted. NEUROLOGIC: Patient is awake alert and oriented x3 MEDICAL DECISION MAKING: The patient is a 58-year-old male who presented to the emergency department for abdominal pain. The patient describes lower abdominal pain and on physical exam he had guarding in his right lower quadrant. The patient still has his appendix. He does have a history of glioblastoma in the past. The patient presented with his significant other who does provide most of the history. The patient was treated with IV fluids and IV pain medication in the emergency department. He was also treated with IV antibiotics for presumed perforated viscus when his CT showed pneumoperitoneum. I discussed his condition with the on-call general surgeon. They have agreed to evaluate the patient in the emergency department for further management and disposition. Triage Nursing notes reviewed. Prior medical records reviewed Vital Signs: reviewed and remarkable for no significant abnormalities Differential diagnosis: Etiologies such as appendicitis, diverticulitis, obstruction, inflammatory bowel disease, renal colic, PUD, biliary pathology, pancreatitis, mesenteric ischemia, aortic pathology, infections, genitourinary, UTI, perforated viscus, as well as others were entertained. ER treatment provided: See below Diagnostics interpreted by me: ECG: none Cardiac Monitoring: An order was placed for continuous cardiac monitoring. The monitor shows a rate of 78 bpm with sinus rhythm. Laboratory studies: As stated above and show below. Imaging studies: See below. Radiographic imaging was reviewed by myself Consultation(s): I discussed this case with Dr. Marte who is on-call for general surgery. Past Med/Surg History Problem List (Updated 05/06/24 @ 17:30 by Dominik Orellana DO) Pneumomediastinum (Acute) Right lower quadrant abdominal pain (Acute) Pneumoperitoneum of unknown etiology (Acute) Medical History Glioblastoma Social History Smoking Status: Never smoker Preferred Language: Yi Feels Safe at Home: Yes Allergies Allergies Allergy/AdvReac Type Severity Reaction Status Date / Time ibuprofen Allergy Intermediate UNABLE TO Unverified 09/03/17 09:52 TAKE DUE TO HEART MEDICATION, PER Home Meds Home Medications Medication Instructions Recorded Confirmed ASPIRIN (ASPIRIN CHEWABLE) 81 mg PO DAILY ##0 09/03/17 11/05/23 Bupropion (Wellbutrin Sr) 150 mg PO DAILY ##0 09/03/17 11/05/23 Doxycycline (Monohydrate) 50 mg PO DAILY ##0 09/03/17 11/05/23 (Doxycycline) Metoprolol Succinate (TOPROL XL) 25 mg PO DAILY ##0 09/03/17 11/05/23 lisinopril 20 mg tablet 20 mg PO DAILY 11/05/23 11/05/23 Results & Data (ED) Vital Signs Vital Signs - 24 hr 05/06/24 15:20 05/06/24 15:49 05/06/24 16:00 Temperature 36.3 C L Temperature Source Oral Pulse Rate 87 72 Pulse Rate [Apical] 81 Pulse Rate from SpO2 Sensor Respiratory Rate 17 18 17 Respiratory Effort / Characteristics Non-Labored Spontaneous Respiratory Depth Normal Respiratory Pattern Regular Blood Pressure 130/91 Blood Pressure [Right Arm] 136/75 Blood Pressure Mean 104 Blood Pressure Mean [Right Arm] 95 Pulse Oximetry 94 94 97 Oxygen Delivery Method Room Air Room Air Room Air Sepsis Recent Fever Within 48 Hours No Sepsis New/Unexplained Change in Mental Status N/A Sepsis Action Taken by Nursing No Action Required 05/06/24 16:39 05/06/24 17:00 05/06/24 17:00 Temperature Temperature Source Pulse Rate 69 70 Pulse Rate [Apical] Pulse Rate from SpO2 Sensor 71 Respiratory Rate 13 14 Respiratory Effort / Characteristics Respiratory Depth Respiratory Pattern Blood Pressure 132/95 134/79 134/79 Blood Pressure [Right Arm] Blood Pressure Mean 107 113 113 Blood Pressure Mean [Right Arm] Pulse Oximetry 95 96 Oxygen Delivery Method Sepsis Recent Fever Within 48 Hours Sepsis New/Unexplained Change in Mental Status Sepsis Action Taken by Residential Medications Current Medication List: was personally reviewed by me Laboratory Data Attestation: I reviewed the patient's lab results. 05/06/24 15:35 05/06/24 15:35 Lab Results 05/06/24 05/06/24 05/06/24 Range/Units 15:35 15:43 Unknown WBC 10.81 H (4.8-10.8) K/ul RBC 4.82 (4.70-6.10) M/uL Hgb 15.1 (14.0-18.0) g/dl POC Hgb 16.0 (14.0-18.0) g/dl Hct 45.4 (42.0-52.0) % POC Hct 47 (42-52) % MCV 94.2 (80.0-100.0) fL MCH 31.3 (25.0-34.0) pg MCHC 33.3 (32.0-36.0) g/dL RDW Std Deviation 48.8 H (36.4-46.3) fL RDW Coeff of Vinicio 14.0 (11.5-14.5) % Plt Count 274 (130-400) K/uL MPV 9.1 L (9.4-12.4) fL Immature Gran % (Auto) 1.9 % Neut % (Auto) 86.0 % Lymph % (Auto) 6.3 % [place] % (Auto) 5.4 % Eos % (Auto) 0.1 % Baso % (Auto) 0.3 % Neut # (Auto) 9.30 H (1.40-6.50) K/uL Lymph # (Auto) 0.68 L (1.20-3.40) K/uL [place] # (Auto) 0.58 (0.11-0.59) K/uL Eos # (Auto) 0.01 (0.00-0.50) K/uL Baso # (Auto) 0.03 (0.00-0.20) K/uL Immature Gran # (Auto) 0.21 H (0.01-0.20) K/uL POC Sodium 137 (135-144) mmol/L Sodium 136 (136-145) mmol/L POC Potassium 5.1 H (3.3-5.0) mmol/L Potassium 5.0 (3.5-5.1) mmol/L POC Chloride 101 (101-112) mmol/L Chloride 98 (98-107) mmol/L Carbon Dioxide 29 (21-32) mmol/L POC Total CO2 29 (24-31) mmol/L Anion Gap 9 (3-11) POC Anion Gap 13.0 L (16-25) mmol/L POC BUN 24 H (7-18) mg/dl BUN 24 H (6-23) mg/dl Creatinine 1.12 (0.6-1.4) mg/dl POC Creatinine 1.1 (0.6-1.3) mg/dl Est Cr Clr Drug Dosing 106.0 ml/min Est GFR ( Amer) 83.5 ml/min Est GFR (Non-Af Amer) 72.0 ml/min BUN/Creatinine Ratio 21.4 H (10-20) Glucose 106 H (70-99(Fasting)) mg/dl POC Glucose (other) 106 H (70-99) mg/dl Calcium 10.1 (8.6-10.3) mg/dl POC Ioniz Calcium Alireza 1.20 (1.12-1.32) mmol/l Total Bilirubin 0.6 (0.2-1.0) mg/dl AST 18 (13-39) U/L ALT 26 (7-52) U/L Alkaline Phosphatase 75 (34-104) U/L Total Protein 7.4 (6.0-8.3) gm/dl Albumin 3.7 (3.4-5.0) gm/dl Globulin 3.7 (2.5-4.0) gm/dl Albumin/Globulin Ratio 1.0 (0.9-2) Lipase 7 L (11-82) U/L Urine Color Dark Yellow Urine Appearance Cloudy A (Clear) Urine pH 5.5 (4.5-7.5) Ur Specific [place] 1.030 (1.000-1.030) Urine Protein 2+ H (Negative) Urine Glucose (UA) Negative (Negative) Urine Ketones Negative (Negative) Urine Blood Negative (Negative) Urine Nitrite Negative (Negative) Urine Bilirubin 1+ H (Negative) Urine Urobilinogen Negative (Negative) Ur Leukocyte Esterase Trace H (Negative) Urine WBC (Auto) 0-5 (0-5) /hpf Urine RBC (Auto) 0-2 (0-2) /hpf U Hyaline Cast (Auto) 11-20 H (0-2) /lpf U Epithel Cells (Auto) 6-10 H (0-2) /hpf Urine Bacteria (Auto) None Seen (None Seen) Urine Mucus Present A (None Prsent) Administered Medications Morphine Sulfate (Morphine Sulfate 4 Mg/Ml 1 Ml Carp\Vial) 4 mg IV Q15M PRN PRN Reason: Pain Stop: 05/20/24 15:27 Last Admin: 05/06/24 15:41 Dose: 4 mg Documented By: CARLOS Discontinued Medications Sodium Chloride (Nss) 500 mls @ 999 mls/hr IV .Q31M STA Stop: 05/06/24 15:58 Last Infusion: 05/06/24 16:22 Dose: Infused Documented By: Admin: 05/06/24 15:41 Dose: 999 mls/hr Documented By: CARLOS Piperacillin Sod/Tazobactam Sod (Zosyn) 4.5 gm in 100 mls @ 200 mls/hr IV NOW ONE Stop: 05/06/24 16:56 Last Admin: 05/06/24 16:54 Dose: 200 mls/hr Documented By: CARLOS Ioversol (Optiray 320 125ml) 120 ml IV ONCE ONE Stop: 05/06/24 16:20 Last Admin: 05/06/24 16:19 Dose: 120 ml Documented By: GUEVARA Ondansetron HCl (Ondansetron Inj 2 Mg/Ml 2 Ml Vial) 4 mg IV NOW STA Stop: 05/06/24 15:29 Last Admin: 05/06/24 15:41 Dose: 4 mg Documented By: CARLOS Imaging Data Attestation: I personally reviewed and interpreted this imaging study as follows: My Impression: CT of the abdomen and pelvis was obtained in the emergency department. My interpretation is free air was noted in the anterior abdomen. There was dilated loops of bowel with stranding. Final report below. Radiologist's Impression: Abdomen/Pelvis CT 05/06/24 15:29 CT SCAN OF THE ABDOMEN AND PELVIS WITH IV CONTRAST CLINICAL HISTORY: Lower abdominal pain. COMPARISON STUDY: No priors. TECHNIQUE: Following the IV administration of 120 cc of Optiray 320, CT scan of the abdomen and pelvis is performed from the lung bases to the proximal femora. Images are reviewed in the axial, sagittal, and coronal planes. IV contrast was administered without complication. A dose lowering technique was utilized adhering to the principles of ALARA. CT DOSE: 1676.25 mGy.cm FINDINGS: Lung bases: The heart is normal in size and without pericardial effusion. There is trace pneumomediastinum. The lung bases are clear negative dependent scarring/atelectasis. Liver: The contrast-enhanced liver is size and contour. Attenuation is diffusely diminished indicating steatosis. Fatty sparing is seen adjacent to the gallbladder fossa. There is no intrahepatic biliary ductal dilatation. The hepatic veins and portal veins are patent. Gallbladder: Unremarkable. Spleen: Normal in size and attenuation. Pancreas: Unremarkable. Adrenal glands: Unremarkable. Kidneys: The contrast enhanced kidneys are normal in size and without hydronephrosis. The kidneys enhance symmetrically. Abdominal vasculature: There is advanced atherosclerotic calcification and mild ectasia of the abdominal aorta. Bowel: There is moderate colonic fecal retention. No bowel obstruction is seen. There is moderate colonic diverticulosis without clear CT evidence of acute diverticulitis. There are thick-walled and inflamed loop of small bowel in the central lower abdomen with surrounding fluid seen on axial image #293. The appendix is well-visualized and normal. Peritoneum: There is a large volume of intraperitoneal free air. Interloop fluid is seen in the lower abdomen and there is trace free fluid in the pelvis. No organized fluid collection is seen to suggest abscess. There is evidence of prior ventral hernia repair. Lymphadenopathy: None. Pelvic viscera: The bladder, prostate, and seminal vesicles are normal as visualized. Skeletal structures: There is moderate lumbosacral spondylosis. Mild sclerotic changes seen in the sacroiliac joints. No lytic or blastic lesions are seen. IMPRESSION: 1. There is a large volume of intraperitoneal free air indicative of visceral perforation. Surgical evaluation is advised. 2. The site of perforation is not clearly delineated. 3. There are inflamed loops of small bowel in the central lower abdomen with surrounding fluid, as well as significant diverticular disease of the left colon. Although not definitive, one of these sites is favored as the site of perforation. 4. No bowel obstruction is seen. 5. No organized fluid collection is identified to suggest abscess. 6. Hepatic steatosis. 7. There is trace pneumomediastinum, likely related to intraperitoneal free air. 8. Additional findings as above. ACT 112: Negative or not required by law. Electronically signed by: Goyo Yun M.D. 05/06/2024 4:44 PM Discharge Plan Visit Data Chief Complaint: Abdominal Pain Stated Complaint: LOWER ABD PAIN ED Provider: Dominik Orellana Discharge Problem: Pneumoperitoneum of unknown etiology, Right lower quadrant abdominal pain, Pneumomediastinum Patient Disposition: Being Evaluated by Surgeon Forms Stand Alone Forms: [facility] Tag & See Prescriptions Prescriptions: No Action ASPIRIN (ASPIRIN CHEWABLE) 81 MG CHEWABLE TAB 81 mg PO DAILY Qty: 0 Bupropion (Wellbutrin Sr) 150 MG EXT REL TAB 150 mg PO DAILY Qty: 0 Doxycycline (Monohydrate) (Doxycycline) 50 MG capsule 50 mg PO DAILY Qty: 0 Metoprolol Succinate (TOPROL XL) 25 MG [id number] 25 mg PO DAILY Qty: 0 Rx Instructions: pt thinks he takes this lisinopril 20 mg tablet 20 mg PO DAILY Referrals Referrals: Luz Maria Gama DO [Primary Care Provider] -
--- OUTSIDE RECORDS SUMMARY | 2024-05-06 15:38 | External Medical Summary | Summary of Care ---
Author Name Unknown Organization [facility] Address [address] [place] [address] Phone [phone] Care Team Providers Care Correctional Manager Name Role Phone Luz Maria Gama Primary Care Provider Reason for Visit * Reason Onset Date Comments Medication Refill 12/01/2023 Encounter Details Date Type Department Care Team (Late st Contact Info) Description 12/01/2023 Refill Palliative Medicine, [facility] [address] [facility] 5th [place] [address] Madhuri Tompkins MD [address] [place] [address] Cancer related pain; Constipation due to pain medication Allergies No known active allergiesdocumented as of this encounter (statuses as of 12/01/2023) Medications Medication Sig Dispensed Refills Start Date [...] below 140/90,Ischemic cardiomyopathy,Aristeo nary artery disease involving [place] coronary artery of [place] heart without angina pectoris,Dyslipidem ia, goal LDL [...] CPAP every night at bedtime. 0 Active levETIRAcetam 500 MG Oral Tablet (Keppra)Indications :Brain tumor (HCC),Brain mass Take 1 Tablet by mouth in the morning and 1 Tablet before bedtime. 60 Tablet 0 11/18/2023 Active Naloxone HCl 0.4 MG/ML Injection Solution (Narcan)Indications :Brain tumor (HCC),Brain mass Inject 1mL into a large muscle for suspected opioid overdose. Seek medical help immediately. http://[email or web address].be [email or web address] 1 mL 3 11/18/2023 Active Ondansetron 4 MG Oral Tablet Disintegrating (Zofran) Place 1 Tablet on tongue every 8 hours as needed for Nausea. Dissolve on tongue. 20 Tablet 0 11/18/2023 Active Naloxone HCl 4 MG/0.1ML Nasal Liquid (Narcan Nasal) Administer 1 spray into 1 nostril for suspected opioid overdose. Seek immediate medical attention. https://www.Silicon Mitus.com/watch? v=[email or web address] 1 Each 3 11/18/2023 Active Ondansetron HCl 8 MG Oral Tablet (Zofran) take 1 tablet every 8 hours as needed 60 Tablet 1 11/25/2023 Active Temozolomide 100 MG Oral Capsule (Temodar) take 200 mg (2 capsules) by mouth daily. take with radiation therapy 30 Capsule 1 11/25/2023 Active Morphine Sulfate 15 MG Oral Tablet (Msir)Indications:C ancer related pain Take 1 Tablet by mouth every 4 hours as needed for Pain, Severe. 0 12/01/2023 Active Morphine Sulfate ER 30 MG Oral Tablet Extended Release (Ms Contin)Indications: Cancer related pain Take 1 Tablet by mouth in the morning and 1 Tablet before bedtime. 30 Tablet 0 12/01/2023 Active Sennosides 8.6 MG Oral Tablet (Senokot)Indication s:Constipation due to pain medication Take 2 Tablets by mouth at bedtime. 60 Tablet 0 12/01/2023 Active Polyethylene Glycol 3350 17 GM Oral Packet (Miralax)Indication s:Constipation due to pain medication Take 1 Packet by mouth in the morning. 14 Each 0 12/01/2023 Active Morphine Sulfate ER 30 MG Oral Tablet Extended Release (Ms Contin)Indications: Cancer related pain Take 1 Tablet by mouth in the morning and 1 Tablet before bedtime. 30 Tablet 0 12/01/2023 4 Discontinue d(Refill) Polyethylene Glycol 3350 17 GM Oral Packet (Miralax)Indication s:Constipation due to pain medication Take 1 Packet by mouth in the morning. 14 Each 0 12/01/2023 4 Discontinue d(Refill) Sennosides 8.6 MG Oral Tablet (Senokot)Indication s:Constipation due to pain medication Take 2 Tablets by mouth at bedtime. 60 Tablet 0 12/01/2023 4 Discontinue d(Refill) documented as of this encounter (statuses as of 12/01/2023) Active Problems Problem Noted Date Diagnosed Date [...] as of this encounter (statuses as of 12/01/2023) Resolved Problems Problem Noted Date Diagnosed Date [...] as of this encounter (statuses as of 12/01/2023) Immunizations Name Administration Dates Next Due COVID-19 [...] Telephone Encounter - Madhuri Tompkins MD - 12/01/2023 1:56 PM EDT I have reviewed the patients controlled substance dispensing history in the Prescription Drug Monitoring Program in compliance with the [facility] regulations before prescribing a controlled substance. * Telephone Encounter - Madhuri Tompkins MD - 12/01/2023 1:56 PM EDT Signed Prescriptions: Disp Refills Morphine Sulfate ER 30 MG Oral Tablet Exte*30 Tab*0 Sig: Take 1 Tablet by mouth in the morning and 1 Tablet before bedtime. Authorizing Provider: MADHURI TOMPKINS Sennosides 8.6 MG Oral Tablet (Senokot) 60 Tab*0 Sig: Take 2 Tablets by mouth at bedtime. Authorizing Provider: MADHURI TOMPKINS Polyethylene Glycol 3350 17 GM Oral Packet*14 Each0 Sig: Take 1 Packet by mouth in the morning. Authorizing Provider: MADHURI TOMPKINS * Telephone Encounter - Sandra Cisneros LPN - 12/01/2023 1:12 PM EDTPending Prescriptions: Disp Refills Morphine Sulfate ER 30 MG Oral Tablet Exte*30 Tab*0 Sig: Take 1 Tablet by mouth in the morning and 1 Tablet before bedtime. Sennosides 8.6 MG Oral Tablet (Senokot) 60 Tab*0 Sig: Take 2 Tablets by mouth at bedtime. Polyethylene Glycol 3350 17 GM Oral Packet*14 Each0 Sig: Take 1 Packet by mouth in the morning. ------ * Telephone Encounter - Sandra Cisneros LPN - 12/01/2023 1:11 PM EDT Call to [facility] inside [facility] did not have anything in stock Requesting to be sent to [facility] aware * Telephone Encounter - Sheridan Sherman CPhT - 12/01/2023 1:04 PM EDT Please reroute Rx to [id number] [address] [facility]. Pending Prescriptions: Disp Refills Morphine Sulfate ER 30 MG Oral Tablet Ext*30 Tab*0 Sig: Take 1 Tablet by mouth in the morning and 1 Tablet before bedtime. Last Visit: Visit date not found (in office), Visit date not found (telemedicine) 12/22/2023 If no future appointments scheduled, and last appointment is greater than a year ago, please schedule patient for a follow-up appointment Last date the medication was ordered: 12.01.23 Patient Phone Numbers. Labs: Lab Results Component Value Date/Time CREAT [...] 12/22/2023 9:30 AM EDT Telemedicine Palliative Medicine, [facility] [address] [facility] 5th Floor [place] [address] Nathalie Nichole PA-C [address] [place] [address] 02/22/2024 11:30 AM EDT Imaging Radiology [facility] 1st [facility] [place] [address] [place] [address] 03/20/2024 10:50 AM EDT Office Visit Family [facility] [place] [address] [place] [phone] Luz Maria Gama, [address] [place] [address] 09/29/2024 1:00 PM EST Office Visit Neurology [facility] [address] [place] [address] Mariama Hinojosa, DO [address] [place] [address] Scheduled Procedures Name Priority Associated [...] related pain Neoplasm related pain (acute) (chronic) Constipation due to pain medication Other constipation documented in this encounter Advance Directives Documents on File Type Date Recorded Patient Tallier Expl anation Advance Directives and Living Will 11/05/2023 ADVANCE [...] patient have Health Care Power of Manufacturing Lead? No Code Status History Code Status Date [...] Advance Directives occurred with: Patient Care Teams Correctional Manager Relationship Specialty Start Date End Date Luz Maria Gama DO [address] [place] [address] PCP - General Family Medicine 01/04/23 documented as of this encounter
--- OUTSIDE RECORDS SUMMARY | 2024-05-06 15:38 | External Medical Summary | Summary of Care ---
Author Name Unknown Organization [facility] Address [address] [place] [address] Phone [phone] Care Team Providers Care Chalk Extruding Machine Operator Name Role Phone Luz Maria Gama Primary Care Provider Reason for Visit * Reason Onset Date Comments Palliative Care Follow-up 11/23/2023 Encounter Details Date Type Department Care Team (Late st Contact Info) Description 11/23/2023 Telephone Palliative Medicine, [address] 5th [place] [address] Keisha Tompkins MD [address] [place] [address] Palliative Care Follow-up Allergies No known active allergiesdocumented as of this encounter (statuses as of 11/24/2023) Medications Medication Sig Dispensed Refills Start Date [...] below 140/90,Ischemic cardiomyopathy,Aristeo nary artery disease involving [place] coronary artery of [place] heart without angina pectoris,Dyslipidem ia, goal LDL [...] CPAP every night at bedtime. 0 Active Sennosides 8.6 MG Oral Tablet (Senokot) Take 2 Tablets by mouth in the morning and 2 Tablets before bedtime. 60 Tablet 0 11/18/2023 Active Famotidine 20 MG Oral Tablet (Pepcid) Take 1 Tablet by mouth in the morning and 1 Tablet before bedtime. 60 Tablet 0 11/18/2023 Active levETIRAcetam 500 MG Oral Tablet (Keppra)Indications :Brain tumor (HCC),Brain mass Take 1 Tablet by mouth in the morning and 1 Tablet before bedtime. 60 Tablet 0 11/18/2023 Active Naloxone HCl 0.4 MG/ML Injection Solution (Narcan)Indications :Brain tumor (HCC),Brain mass Inject 1mL into a large muscle for suspected opioid overdose. Seek medical help immediately. http://[email or web address].be [email or web address] 1 mL 3 11/18/2023 Active Ondansetron 4 MG Oral Tablet Disintegrating (Zofran) Place 1 Tablet on tongue every 8 hours as needed for Nausea. Dissolve on tongue. 20 Tablet 0 11/18/2023 Active Naloxone HCl 4 MG/0.1ML Nasal Liquid (Narcan Nasal) Administer 1 spray into 1 nostril for suspected opioid overdose. Seek immediate medical attention. https://www.Hachiko.com/watch? v=[email or web address] 1 Each 3 11/18/2023 Active Morphine Sulfate 10 MG/5ML Oral Solution Take 2.5 mL by mouth every 8 hours as needed for Pain, Severe or Pain, Breakthrough. 50 mL 0 11/22/2023 4 Discontinue d(Medicatio n/Dose Changed) documented as of this encounter (statuses as of 11/24/2023) Active Problems Problem Noted Date Diagnosed Date [...] as of this encounter (statuses as of 11/24/2023) Resolved Problems Problem Noted Date Diagnosed Date Resolved Date Brain mass 11/08/2023 11/19/2023 Bradycardia, sinus 01/21/2023 Body mass index (BMI) of 45. 0 to 49.9 in adult 07/29/2020 11/04/2020 Overview: Per Obesity protocol - Body mass index (BMI) of 40. 0 to 44.9 in adult 06/21/2017 08/01/2020 Overview: Per Obesity protocol #1 Venous insufficiency 04/23/2016 024 Testicular hypogonadism 09/24/2015/ HTN (hypertension) 08/17/2015 6 Overview: Per HTN Protocol NSTEMI (non-ST elevated myoc ardial infarction) 08/16/2015 08/17/2015 documented as of this encounter (statuses as of 11/24/2023) Immunizations Name Administration Dates Next Due COVID-19 [...] encounter Miscellaneous Notes * Telephone Encounter - Debbi Cruz OSA - 11/24/2023 10:56 AM EST Candi called back and patient was scheduled for 12/01/23 at [facility]. * Telephone Encounter - Sandra Cisneros LPN - 11/23/2023 12:52 PM EST 2nd attempt to reach patient to schedule hospital f/u Was consulted/followed by Palliative IP at [facility] Was to f/u with Palliative Medicine at outpatient No answer Left message requesting return call to [phone] Letter was also sent to patient documented in this encounter Plan of Treatment Upcoming Encounters Date Type Department Care Team (Late st Contact Info) Description 12/01/2023 10:30 AM EDT Office Visit Palliative Medicine [facility] [address] [place] [address] Keisha Tompkins MD [address] [place] [address] [place] [address] 02/22/2024 11:30 AM EDT Imaging Radiology [facility] 1st Floor, [place] [address] [facility] [place] [address] 03/20/2024 10:50 AM EDT Office Visit Family [facility] [place] [address] [place] [phone] Luz Maria Gama, DO [address] [place] [address] 09/29/2024 1:00 PM EST Office Visit Neurology 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 No Code Status History Code Status Date [...] Advance Directives occurred with: Patient Care Teams Chalk Extruding Machine Operator Relationship Specialty Start Date End Date Luz Maria Gama DO [address] [facility] [place] [address] PCP - General Family Medicine 01/04/23 documented as of this encounter
--- OUTSIDE RECORDS SUMMARY | 2024-05-06 15:38 | External Medical Summary | Summary of Care ---
Author Name Unknown Organization [facility] Address [address] [place] [address] Phone [phone] Care Team Providers Care Seed Collector Name Role Phone Luz Maria Gama Primary Care Provider Reason for Visit * Reason Onset Date Comments Precert Approved 11/23/2023 MORPHINE Pre Cert/Prior Auth 11/23/2023 Morphine sul fate 15mg tabs Encounter Details Date Type Department Care Team (Late st Contact Info) Description 11/23/2023 Telephone [facility] [place] [address] [place] [address] Louis Souza IV, PA-C [address] [place] [address] Precert Approved ( MORPHINE); Pre Cert/Pr... Allergies No known active allergiesdocumented as of this encounter (statuses as of 11/29/2023) Medications Medication Sig Dispensed Refills Start Date [...] 140/90,Ischemic cardiomyopathy,Aristeo nary artery disease involving [place] coronary artery of [place] heart without angina pectoris,Dyslipidem ia, goal [...] suspected opioid overdose. Seek medical help immediately. http://youtu.[email or web address] 1 mL 3 11/18/2023 Active Ondansetron 4 MG Oral Tablet Disintegrating (Zofran) Place 1 Tablet on tongue every 8 hours as needed for Nausea. Dissolve on tongue. 20 Tablet 0 11/18/2023 Active Naloxone HCl 4 MG/0.1ML Nasal Liquid (Narcan Nasal) Administer 1 spray into 1 nostril for suspected opioid overdose. Seek immediate medical attention. https://www.Liquor.com.com/watch? v=[email or web address] 1 Each 3 11/18/2023 Active Morphine Sulfate 10 MG/5ML Oral Solution Take 2.5 mL by mouth every 8 hours as needed for Pain, Severe or Pain, Breakthrough. 50 mL 0 11/22/2023 Discontinue d(Medicatio n/Dose Changed) documented as of this encounter (statuses as of 11/29/2023) Active Problems Problem Noted Date Diagnosed Date [...] as of this encounter (statuses as of 11/29/2023) Resolved Problems Problem Noted Date Diagnosed Date [...] as of this encounter (statuses as of 11/29/2023) Immunizations Name Administration Dates Next Due COVID-19 [...] encounter Miscellaneous Notes * Telephone Encounter - Kecia Lucas PHARM Tech - 11/24/2023 9:10 AM EST Pt partner calling to check status of PA for Morphine Sulfate. Pt is out of medication tomorrow. Please advise of results once in at [phone]. Thanks, Kecia Lucas Blood Bank Technologist [facility] ([facility] Telepharmacy) 11/24/2023,9:11 AM * Telephone Encounter - Anne Fernandez CPhT - 11/24/2023 8:21 AM EST Pharmacy calling to inform doctor that the patient's insurance will not pay for this medication without a completed prior authorization. Did confirm this information with the pharmacy. Pt's current insurance information is as follows: Patient name: Remy Lujan ID number: [id number] BIN number: [id number] N number: [facility] Group number: [id number] Subscriber name: Remy Lujan Primary or Secondary Insurance:Primary Medication: morphine sulfate 15mg tabs Reason for Request: prior auth required Pharmacy and phone number: [facility] [phone] Rx plan and phone number: [facility] [phone] Is this a new medication for the patient? Yes What alternative medications does the pharmacy have in stock?: none Thank you, Anne Fernandez CphT Blood Bank Technologist III [facility] (formerly Telepharmacy) 11/24/2023,8:22 AM * Telephone Encounter - Audelia Castano PHARM Tech - 11/23/2023 1:19 PM EST Patient spouse called in today asking for medication that was prescribed by neuro surgery transferred to specialty line Thank you, Audelia Castano Clinical Nutrition Manager I [facility] ([facility] Telepharmacy) 11/23/2023,1:20 PM * Telephone Encounter - Kecia Herbert CPhT - 11/23/2023 1:17 PM EST Pt calling in and said she requested a rx for Morphine tablets, and a rx for Morphine Sulfate 10 MG/5ML Oral Solution was sent in instead. Pt uses [facility] requests high priority. Please advise. Thank you, Kecia Herbert CPht Blood Bank Technologist II [facility] ([facility] ([facility] Telepharmacy) 11/23/2023, 1:18 PM documented in this encounter Plan of Treatment Upcoming Encounters Date Type Department Care Team (Late st Contact Info) Description 12/01/2023 10:30 AM EDT Office Visit Palliative Medicine [facility] [address] [place] [address] Keisha Tompkins MD [address] [place], [place] [address] [address] 02/22/2024 11:30 AM EDT Imaging Radiology [address] [employer] [place] [address] 03/20/2024 10:50 AM EDT Office Visit [facility] [address] [place] [phone] Luz Maria Gama, [address] [place] [address] 09/29/2024 1:00 PM EST Office Visit Neurology [facility] [place] [address] [place] [address] Mariama Hinojosa, DO [address] [place] [address] Scheduled Procedures Name Priority Associated [...] Documents on File Type Date Recorded Patient Household Appliances Service Technician Expl anation Advance Directives and Living [...] the patient have Health Care Power of Logistics Engineer? No Code Status History Code Status Date [...] Advance Directives occurred with: Patient Care Teams Seed Collector Relationship Specialty Start Date End Date Luz Maria Gama DO [address] [place] [address] PCP - General Family Medicine 01/04/23 documented as of this encounter
--- OUTSIDE RECORDS SUMMARY | 2024-05-06 15:38 | External Medical Summary | Summary of Care ---
Author Name Unknown Organization [facility] Address [address] [place] [address] Phone [phone] Care Team Providers Care Occupational Therapy Specialist Name Role Phone Luz Maria Gama Primary Care Provider Encounter Details Date Type Department Care Team (Late st Contact Info) Description 11/29/2023 Documentation [facility] [address] [place], [place] [phone] Brittanie Mora, MS [address] [place], [place] [phone] Genetic testing* Allergies No known active allergiesdocumented as of [...] below 140/90,Ischemic cardiomyopathy,[place] artery disease involving [place] coronary artery of [place] heart without angina pectoris,Dyslipidemi a, goal LDL [...] 11/18/2023 Active levETIRAcetam 500 MG Oral Tablet (Keppra)Indications: Brain tumor (HCC),Brain mass Take 1 Tablet by mouth in the morning and 1 Tablet before bedtime. 60 Tablet 0 11/18/2023 Active Naloxone HCl 0.4 MG/ML Injection Solution (Narcan)Indications: Brain tumor (HCC),Brain mass Inject 1mL into a large muscle for suspected opioid overdose. Seek medical help immediately. http://[email or web address].be/-[email or web address] 1 mL 3 11/18/2023 Active Ondansetron 4 MG Oral Tablet Disintegrating (Zofran) Place 1 Tablet on tongue every 8 hours as needed for Nausea. Dissolve on tongue. 20 Tablet 0 11/18/2023 Active Naloxone HCl 4 MG/0.1ML Nasal Liquid (Narcan Nasal) Administer 1 spray into 1 nostril for suspected opioid overdose. Seek immediate medical attention. https://www.youtub e.com/watch?v=v26c Efm0XsN 1 Each 3 11/18/2023 Active Morphine Sulfate 15 MG Oral Tablet (Msir) Take 1 Tablet by mouth every 6 hours as needed for severe Pain or breakthrough Pain. 20 Tablet 0 11/23/2023 Active Ondansetron HCl 8 MG Oral Tablet (Zofran) take 1 tablet every 8 hours as needed 60 Tablet 1 11/25/2023 Active Temozolomide 100 MG Oral Capsule (Temodar) take 200 mg (2 capsules) by mouth daily. take with radiation therapy 30 Capsule 1 11/25/2023 Active documented as of this encounter (statuses [...] as of this encounter Progress Notes * Brittanie Mora, - 11/29/2023 8:50 PM EDT Cancer Genetics [facility] E-Consult: Review of Tumor Sequencing for Germline Testing Candidates Summary & Recommendation: the below variants are not suggestive of an inherited cancer syndrome. No further testing recommended. Low likelihood of Dee with no sequencing variants reported, PAOLA and low TMB tumor. Per Chart Review HPI: Remy is a 58 year old male with a diagnosis of glioblastoma. - Remy has no evidence of chemotherapy or radiation treatment(s) prior to this diagnosis. - The malignancy is MSI-Stable and Low TMB. - Prior Germline Testing: No Family History Problem Relation Age of Onset Lung cancer Mother Stomach cancer Grandmother (Maternal) MyGenVar Tumor Sequencing Panel was completed 11/24/23. Note: Review for germline workup is only performed on findings that have a known, associated syndrome. The following findings were reviewed and not of germline concern: Gene Variant Name VAF% Variant Classification EGFR EGFR CN 38 Tier 1: Strong significance EGFR EGFR(1) - EGFR(8) Tier 1: Strong significance CTNNB1 S33C 15.10% Tier 2: Potential significance PTEN V175M 18.20% Tier 2: Potential significance CDKN2A CDKN2A CN 0 Tier 2: Potential significance CDKN2B CDKN2B CN 0.09 Tier 2: Potential significance Brittanie Mora, MS, [facility] - Licensed, Certified Genetic Counselor (P) [phone] | (F) [phone] | (E) [email or web address] documented in this encounter Plan of Treatment Upcoming Encounters Date Type Department Care Team (Late st Contact Info) Description 12/01/2023 10:30 AM EDT Office Visit Palliative Medicine [facility] [address] [place] [address] Keisha Tompkins MD [address] [place] [address] [place] [address] 02/22/2024 11:30 AM EDT Imaging Radiology [facility] 1st [facility] [place] [address] [place] [address] 03/20/2024 10:50 AM EDT Office Visit Family [place] [address] [place] [phone] Luz Maria Gama, [address] [place] [address] 09/29/2024 1:00 PM EST Office Visit Neurology [facility] [address] [place] [address] Mariama Hinojosa, DO [address] [place] [address] Scheduled Procedures Name Priority Associated [...] as of this encounter Visit Diagnoses Diagnosis Genetic testing- Primary Other investigation and testing for procreative management documented in this encounter Advance Directives Documents on File Type Date Recorded Patient Air Deodorizer Servicer Expl anation Advance Directives and Living Will [...] the patient have Health Care Power of Survey Party Chief? No Code Status History Code Status Date [...] Advance Directives occurred with: Patient Care Teams Occupational Therapy Specialist Relationship Specialty Start Date End Date Luz Maria Gama DO [address] [place] [address] PCP - General Family Medicine 01/04/23 documented as of this encounter"
--- OUTSIDE RECORDS SUMMARY | 2024-05-06 15:38 | External Medical Summary | Summary of Care ---
Author Name Unknown Organization [facility] Address [address] [place] [address] Phone [phone] Care Team Providers Care Roller Gold Leaf Name Role Phone Luz Maria Gama Primary Care Provider Reason for Visit * Reason Onset Date Comments Medication Refill 12/12/2023 Encounter Details Date Type Department Care Team (Late st Contact Info) Description 12/12/2023 Refill Palliative Medicine, [facility] [address] [facility] 5th [place] [address] Madhuri Tompkins MD [address] [place] [address] Cancer related pain Allergies No known active allergiesdocumented as of this encounter (statuses as of 12/13/2023) Medications Medication Sig Dispensed Refills Start Date [...] below 140/90,Ischemic cardiomyopathy,Aristeo nary artery disease involving [place] coronary artery of [place] heart without angina pectoris,Dyslipidem ia, goal LDL [...] suspected opioid overdose. Seek medical help immediately. [email or web address] [email or web address] 1 mL 3 11/18/2023 Active Ondansetron 4 MG Oral Tablet Disintegrating (Zofran) Place 1 Tablet on tongue every 8 hours as needed for Nausea. Dissolve on tongue. 20 Tablet 0 11/18/2023 Active Naloxone HCl 4 MG/0.1ML Nasal Liquid (Narcan Nasal) Administer 1 spray into 1 nostril for suspected opioid overdose. Seek immediate medical attention. https://www.Expedit.us.com/watch? v=q49oOyq7YtS 1 Each 3 11/18/2023 Active Ondansetron HCl [...] needed for Pain, Severe. 0 12/01/2023 Active Sennosides 8.6 MG Oral [...] 1 Tablet before bedtime. 60 Tablet 0 12/13/2023 Active Morphine Sulfate ER 30 MG Oral Tablet Extended Release (Ms Contin)Indications: Cancer related pain Take 1 Tablet by mouth in the morning and 1 Tablet before bedtime. 30 Tablet 0 12/01/2023 Discontinue d(Refill) documented as of this encounter (statuses as of 12/13/2023) Active Problems Problem Noted Date Diagnosed Date [...] as of this encounter (statuses as of 12/13/2023) Resolved Problems Problem Noted Date Diagnosed Date [...] as of this encounter (statuses as of 12/13/2023) Immunizations Name Administration Dates Next Due COVID-19 [...] Telephone Encounter - Sandra Cisneros LPN - 12/13/2023 11:06 AM EDTSigned Prescriptions: Disp Refills Morphine Sulfate ER 30 MG Oral Tablet Exte*60 Tab*0 Sig: Take 1 Tablet by mouth in the morning and 1 Tablet before bedtime.Authorizing Provider: MADHURI TOMPKINS * Telephone Encounter - Madhuri Tompkins MD - 12/13/2023 10:53 AM EDT I have reviewed the patients controlled substance dispensing history in the Prescription Drug Monitoring Program in compliance with the [facility] regulations before prescribing a controlled substance. * Telephone Encounter - Madhuri Tompkins MD - 12/13/2023 10:53 AM EDT Signed Prescriptions: Disp Refills Morphine Sulfate ER 30 MG Oral Tablet Exte*60 Tab*0 Sig: Take 1 Tablet by mouth in the morning and 1 Tablet before bedtime. Authorizing Provider: MADHURI TOMPKINS * Telephone Encounter - Sandra Cisneros LPN - 12/13/2023 10:19 AM EDTPending Prescriptions: Disp Refills Morphine Sulfate ER 30 MG Oral Tablet Exte*30 Tab*0 Sig: Take 1 Tablet by mouth in the morning and 1 Tablet before bedtime. * Telephone Encounter - Sandra Cisneros LPN - 12/13/2023 10:17 AM EDT Called and spoke with Candi States the medication is working well for him Occasionally will need to take the MSIR liquid Its 15mg and he takes 2.5ml at a time Typically needs that about 1-2 times daily Overall feels the current regimen is working well No issues/concerns at this time * Telephone Encounter - Madhuri Tompkins MD - 12/13/2023 10:13 AM EDT Pending Prescriptions: Disp Refills Morphine Sulfate ER 30 MG Oral Tablet Exte*30 Tab*0 Sig: Take 1 Tablet by mouth in the morning and 1 Tablet before bedtime. * Telephone Encounter - Sandra Cisneros LPN - 12/13/2023 7:39 AM EDTPending Prescriptions: Disp Refills Morphine Sulfate ER 30 MG Oral Tablet Exte*30 Tab*0 Sig: Take 1 Tablet by mouth in the morning and 1 Tablet before bedtime. * Telephone Encounter - aSndra Cisneros LPN - 12/13/2023 7:35 AM EDT Did you pend patient's preferred pharmacy and medication before forwarding?yes Pharmacy: [id number] [address] [facility] Authorization for medication useage called to indicated pharmacy per Dr. Tompkins due to Remy Lujan. Last Visit: Visit date not found (in office), Visit date not found (telemedicine) I have reviewed the patients controlled substance dispensing history in the Prescription Drug Monitoring Program in compliance with the [facility] regulations before prescribing a controlled substance. Were any discrepancies found:no Last prescribed 11/30 Last Filled 11/30 RX Due 08/18 Next Visit: 12/22/2023 If no future appointments scheduled, and last appointment is greater than a year ago, please schedule patient for a follow-up appointment Last date the medication was ordered: Is this request for a controlled substance?Yes, What was the last refill date 11/30 w/ quantity 30 and dosage every 12 hours and Urine Drug Screen Not completed Urine Drug Screen:No results found for this [...] 12/22/2023 9:30 AM EDT Telemedicine Palliative Medicine, [facility] [address] [facility] 5[address] [place] [address] Nathalie Nichole PA-C [address] [facility] [place] [address] 02/22/2024 11:30 AM EDT Imaging Radiology [facility], [address] [place] [address] 03/20/2024 10:50 AM EDT Office Visit [facility] [address] [place] [phone] Luz Maria Gama, [address] [place] [address] 09/29/2024 1:00 PM EST Office Visit Neurology [facility] [address] [phone] Mariama Hinojosa, DO [address] [place] [address] Scheduled Procedures Name Priority Associated Diagnoses Date/Ti [...] Documents on File Type Date Recorded Patient Horseradish Maker Expl anation POLST 12/03/2023 9:15 AM POLST [...] the patient have Health Care Power of Commissioner Conservation Of Resources? No Code Status History Code Status Date [...] Advance Directives occurred with: Patient Care Teams Roller Gold Leaf Relationship Specialty Start Date End Date Luz Maria Gama DO [address] [facility] [place] [id number] PCP - General Family Medicine 01/04/23 documented as of this encounter
--- OUTSIDE RECORDS SUMMARY | 2024-05-06 15:38 | External Medical Summary | Summary of Care ---
Author Name Unknown Organization [facility] Address [address] [place] [address] Phone [phone] Care Team Providers Care Heating And Refrigeration Inspector Name Role Phone Luz Maria Gama Primary Care Provider Reason for Visit * Reason Onset Date Comments Medication Refill 12/01/2023 Encounter Details Date Type Department Care Team (Late st Contact Info) Description 12/01/2023 Refill Palliative Medicine, [facility] [address] [facility] 5th [place] [address] Madhuri Tompkins MD [address] [place] [address] Cancer related pain; Constipation due [...] below 140/90,Ischemic cardiomyopathy,Aristeo nary artery disease involving [place] coronary artery of [place] heart without angina pectoris,Dyslipidem ia, goal LDL [...] suspected opioid overdose. Seek medical help immediately. [email or web address] Techu.be [email or web address] 1 mL 3 11/18/2023 Active Ondansetron 4 MG Oral Tablet Disintegrating (Zofran) Place 1 Tablet on tongue every 8 hours as needed for Nausea. Dissolve on tongue. 20 Tablet 0 11/18/2023 Active Naloxone HCl 4 MG/0.1ML Nasal Liquid (Narcan Nasal) Administer 1 spray into 1 nostril for suspected opioid overdose. Seek immediate medical attention. https://www.Broken Envelope Productions.com/watch? v=[email or web address] 1 Each 3 11/18/2023 Active Ondansetron HCl [...] Drug Monitoring Program in compliance with the [facility] regulations before prescribing a controlled substance. [...] 12/01/2023 1:11 PM EDT Call to Candi [facility] did not have anything in stock Requesting to be sent to [facility] Pended Pharmacy aware * Telephone Encounter - Sheridan Sherman CPhT - 12/01/2023 1:04 PM EDT Please reroute Rx to E [id number] [address] [facility]. Pending Prescriptions: Disp Refills Morphine Sulfate ER [...] 12/22/2023 9:30 AM EDT Telemedicine Palliative Medicine, [facility] [address] [facility] 5th Floor [place] [address] Nathalie Nichole PA-C [address] [place] [address] 02/22/2024 11:30 AM EDT Imaging Radiology [facility] [facility] [place] [address] [place] [address] 03/20/2024 10:50 AM EDT Office Visit Family [facility] [place] [address] [place] [phone] Luz Maria Gama, [address] [place] [address] 09/29/2024 1:00 PM EST Office Visit Neurology [facility] [address] [place] [address] Mariama Hinojosa, DO [address] [place] [address] Scheduled Procedures Name Priority Associated [...] Documents on File Type Date Recorded Patient Food And Drug Inspector Expl anation Advance Directives and Living Will [...] the patient have Health Care Power of Stock Checker? No Code Status History Code Status Date [...] Advance Directives occurred with: Patient Care Teams Heating And Refrigeration Inspector Relationship Specialty Start Date End Date Luz Maria Gama DO [address] [place] [address] PCP - General Family Medicine 01/04/23 documented as of this encounter
--- OUTSIDE RECORDS SUMMARY | 2024-05-06 15:38 | External Medical Summary | Summary of Care ---
Author Name Unknown Organization [facility] Address [address] [place] [address] Phone [phone] Care Team Providers Care Time Buyer Name Role Phone Luz Maria Gama DO Primary Care Provider Reason for Visit * Reason Onset Date Comments Precert In Process 11/23/2023 07 NICOLE BLAKE MORPHINE Pre Cert/Prior Auth 11/23/2023 Morphine sul fate 15mg tabs Encounter Details Date Type Department Care Team (Late st Contact Info) Description 11/23/2023 Telephone [facility], [place] [address] [place] [address] Louis Souza IV, PA-C [address] [place] [address] Precert In Process ( NICOLE BLAKE MORPH... Allergies No known active allergiesdocumented as of this encounter (statuses as of 11/25/2023) Medications Medication Sig Dispensed Refills Start Date [...] below 140/90,Ischemic cardiomyopathy,Aristeo nary artery disease involving [place] coronary artery of [place] heart without angina pectoris,Dyslipidem ia, goal LDL [...] opioid overdose. Seek medical help immediately. http://youtu.[email or web address] 1 mL 3 11/18/2023 Active Ondansetron 4 MG Oral Tablet Disintegrating (Zofran) Place 1 Tablet on tongue every 8 hours as needed for Nausea. Dissolve on tongue. 20 Tablet 0 11/18/2023 Active Naloxone HCl 4 MG/0.1ML Nasal Liquid (Narcan Nasal) Administer 1 spray into 1 nostril for suspected opioid overdose. Seek immediate medical attention. https://www.TapTalents.com/watch? [email or web address] 1 Each 3 11/18/2023 Active Morphine Sulfate 10 MG/5ML Oral Solution Take 2.5 mL by mouth every 8 hours as needed for Pain, Severe or Pain, Breakthrough. 50 mL 0 11/22/2023 Discontinue d(Medicatio n/Dose Changed) documented as of this encounter (statuses as of 11/25/2023) Active Problems Problem Noted Date Diagnosed Date [...] as of this encounter (statuses as of 11/25/2023) Resolved Problems Problem Noted Date Diagnosed Date [...] as of this encounter (statuses as of 11/25/2023) Immunizations Name Administration Dates Next Due COVID-19 [...] Please advise of results once in at [phone]. Thanks, Kecia Lucas Concrete Finisher [facility] ([facility]PS) (formerly Telepharmacy) 11/24/2023,9:11 AM * Telephone Encounter - Anne Fernandez CPhT - 11/24/2023 8:21 AM EST Pharmacy calling to inform doctor that the patient's insurance will not pay for this medication without a completed prior authorization. Did confirm this information with the pharmacy. Pt's current insurance information is as follows: Patient name: Remy Lujan ID number: [id number] BIN number: [id number] PCN number: [facility] Group number: [id number] Subscriber name: Remy Lujan Primary or Secondary Insurance:Primary Medication: morphine sulfate 15mg tabs Reason for Request: prior auth required Pharmacy and phone number: [facility] [phone] Rx plan and phone number: [facility] [phone] Is this a new medication for the patient? Yes What alternative medications does the pharmacy have in stock?: none Thank you, Anne Fernandez CphT Concrete Finisher III [facility] Services(CCPS) (formerly Telepharmacy) 11/24/2023,8:22 AM * Telephone Encounter - Audelia Castano PHARM Tech - 11/23/2023 1:19 PM EST Patient spouse called in today asking for medication that was prescribed by neuro surgery transferred to specialty line Thank you, Audelia Castano Base Wad Operator Adjuster I [facility] ([facility]PS)(formerly Telepharmacy) 11/23/2023,1:20 PM * Telephone Encounter - Kecia Herbert CPhT - 11/23/2023 1:17 PM EST Pt calling in and said she requested a rx for Morphine tablets, and a rx for Morphine Sulfate 10 MG/5ML Oral Solution was sent in instead. Pt uses [facility] requests high priority. Please advise. Thank you, Kecia Herbert CPht Concrete Finisher II [facility] ([facility]PS) (formerly Telepharmacy) 11/23/2023, 1:18 PM documented in this encounter Plan of Treatment Upcoming Encounters Date Type Department Care Team (Late st Contact Info) Description 12/01/2023 10:30 AM EDT Office Visit Palliative Medicine [facility] [address] [place], [place] [address] Keisha Tompkins MD [address] [place], [place] [address] [address] 02/22/2024 11:30 AM EDT Imaging Radiology [address] [place] [address] 03/20/2024 10:50 AM EDT Office Visit [facility] [address] [place] [phone] Luz Maria Gama, [address] [place] [address] 09/29/2024 1:00 PM EST Office Visit Neurology [facility] [place] [address] [place] [address] Mariama Hinojosa, DO [address] [place] [address] Scheduled Procedures Name Priority Associated [...] Documents on File Type Date Recorded Patient Software Test Automation Engineer Expl anation Advance Directives and Living [...] the patient have Health Care Power of Accounts Specialist? No Code Status History Code Status [...] Advance Directives occurred with: Patient Care Teams Time Buyer Relationship Specialty Start Date End Date Luz Maria Gama DO [address] [place] [address] PCP - General Family Medicine 01/04/23 documented as of this encounter
--- OUTSIDE RECORDS SUMMARY | 2024-05-06 15:38 | External Medical Summary | Summary of Care ---
Author Name Unknown Organization [facility] Address [address] [place] [address] Phone [phone] Care Team Providers Care Ferry Operator Name Role Phone Luz Maria Gama DO Primary Care Provider Reason for Visit * Reason Onset Date Comments Medication Question 11/23/2023 Pre Cert/Prior Auth 11/23/2023 Morphine sul fate 15mg tabs Encounter Details Date Type Department Care Team (Late st Contact Info) Description 11/23/2023 Telephone [facility], [place] [address] [place] [address] Louis Souza IV, PA-C [address] [place] [address] Medication Question; Pre Cert/Prior Auth (... Allergies No known active allergiesdocumented as of [...] below 140/90,Ischemic cardiomyopathy,Aristeo nary artery disease involving [place] coronary artery of [place] heart without angina pectoris,Dyslipidem ia, goal LDL [...] suspected opioid overdose. Seek medical help immediately. [email or web address] 1 mL 3 11/18/2023 Active Ondansetron 4 MG Oral Tablet Disintegrating (Zofran) Place 1 Tablet on tongue every 8 hours as needed for Nausea. Dissolve on tongue. 20 Tablet 0 11/18/2023 Active Naloxone HCl 4 MG/0.1ML Nasal Liquid (Narcan Nasal) Administer 1 spray into 1 nostril for suspected opioid overdose. Seek immediate medical attention. https://www.Qoiza.com/watch? v=[email or web address] 1 Each 3 11/18/2023 Active Morphine Sulfate 10 MG/5ML Oral Solution Take 2.5 mL by mouth every 8 hours as needed for Pain, Severe or Pain, Breakthrough. 50 mL 0 11/22/2023 03/05/202 4 Discontinue d(Medicatio n/Dose Changed) documented as [...] Please advise of results once in at [phone]. Thanks, Kecia Lucas Seo Consultant [facility] (CCPS) (formerly Telepharmacy) 11/24/2023,9:11 AM * Telephone Encounter - Anne Fernandez CPhT - 11/24/2023 8:21 AM EST Pharmacy calling to inform doctor that the patient's insurance will not pay for this medication without a completed prior authorization. Did confirm this information with the pharmacy. Pt's current insurance information is as follows: Patient name: Remy Lujan ID number: [id number] BIN number: [id number] N number: [facility] Group number: [id number] Subscriber name: Remy Lujan Primary or Secondary Insurance:Primary Medication: morphine sulfate 15mg tabs Reason for Request: prior auth required Pharmacy and phone number: [facility] [phone] Rx plan and phone number: [facility] [phone] Is this a new medication for the patient? Yes What alternative medications does the pharmacy have in stock?: none Thank you, Anne Fernandez CphT Seo Consultant III [facility]PS) (formerly Telepharmacy) 11/24/2023,8:22 AM * Telephone Encounter - Audelia Castano PHARM Tech - 11/23/2023 1:19 PM EST Patient spouse called in today asking for medication that was prescribed by neuro surgery transferred to specialty line Thank you, Audelia Castano Can Repairer I [facility] ([facility]PS)(formerly Telepharmacy) 11/23/2023,1:20 PM * Telephone Encounter - Kecia Herbert CPhT - 11/23/2023 1:17 PM EST Pt calling in and said she requested a rx for Morphine tablets, and a rx for Morphine Sulfate 10 MG/5ML Oral Solution was sent in instead. Pt uses [facility] requests high priority. Please advise. Thank you, Kecia Herbert CPht Seo Consultant II [facility] (CCPS) (formerly Telepharmacy) 11/23/2023, 1:18 PM documented in this encounter Plan of Treatment Upcoming Encounters Date Type Department Care Team (Late st Contact Info) Description 03/20/2024 10:50 AM EDT Office Visit [facility] [address] [facility] [place] [phone] Luz Maria Gama DO [address] [facility] [address] 09/29/2024 1:00 PM EST Office Visit Neurology [facility] [place] [address] [facility] [facility], [place] [address] Mariama Hinojosa DO [address] [facility] [place] [address] Scheduled Procedures Name Priority Associated Diagnoses Date/Ti [...] on File Type Date Recorded Patient Manager Relocation Expl anation Advance Directives and Living Will [...] the patient have Health Care Power of Cas[place]? No Code Status History Code Status Date [...] Advance Directives occurred with: Patient Care Teams Ferry Operator Relationship Specialty Start Date End Date Luz Maria Gama DO [address] [place] [facility] [place] [address] PCP - General Family Medicine 01/04/23 documented as of this encounter
--- OUTSIDE RECORDS SUMMARY | 2024-05-06 15:38 | External Medical Summary | Summary of Care ---
Author Name Unknown Organization [facility] Address [address] [place] [address] Phone [phone] Care Team Providers Care Birth Certificate Clerk Name Role Phone Luz Maria Gama Primary Care Provider [phone] Encounter Details Date Type Department Care Team (Late st Contact Info) Description 12/01/2023 9:45 AM EDT Scheduled Telephone Care Coordination and Integration [address] [place], [place] [id number] Remy Cain [facility] Health Vehicle Upholsterer [address] [place] [address] Allergies No known active allergiesdocumented as of [...] below 140/90,Ischemic cardiomyopathy,Coron christiane artery disease involving [place] coronary artery of [place] heart without angina pectoris,Dyslipidemi a, goal LDL [...] suspected opioid overdose. Seek medical help immediately. [email or web address] 1 mL 3 11/18/2023 Active Ondansetron 4 MG Oral Tablet Disintegrating (Zofran) Place 1 Tablet on tongue every 8 hours as needed for Nausea. Dissolve on tongue. 20 Tablet 0 11/18/2023 Active Naloxone HCl 4 MG/0.1ML Nasal Liquid (Narcan Nasal) Administer 1 spray into 1 nostril for suspected opioid overdose. Seek immediate medical attention. https://www.youtub e.com/watch?v=v26c Prp7NlF 1 Each 3 11/18/2023 Active Morphine Sulfate [...] this encounter Progress Notes * Remy Cain [facility] Health Vehicle Upholsterer - 12/01/2023 10:10 AM EDT Telemedicine visit: No Community Health Vehicle Upholsterer (GIANNI) documentation: CHW follow up phone call for RNCM and spoke with patient's significant other, Candi. She reports that they are currently waiting on an appointment with palliative care. She said that the patient's incision seems to be healing well, however the patient's pain medications are not really helping with the pain. She said they are hoping that palliative care might be able to better manage his pain, once they are connected with the patient. Candi denied any other questions or concerns at this time. She is open to a follow up phone call next week. Wesley Cain [facility] Vehicle Upholsterer II [facility] - Raymundo [phone] documented in this encounter Plan of Treatment Upcoming Encounters Date Type Department Care Team (Late st Contact Info) Description 12/01/2023 10:30 AM EDT Office Visit Palliative Medicine [facility] [address] [place] [address] Keisha Tompkins MD [address] [place] [address] [place] [address] NEW Palliative Visit 02/22/2024 11:30 AM EDT Imaging Radiology [facility], [place] [address] [place] [address] 03/20/2024 10:50 AM EDT Office Visit Family [facility] [place] [address] [facility] [phone] Luz Maria Gama, DO [address] [facility] [address] 09/29/2024 1:00 PM EST Office Visit Neurology [facility] [place] [address] [place] [address] Mariama Hinojosa, DO [address] [facility] [place] [address] Scheduled Procedures Name Priority Associated Diagnoses Date/Ti [...] on File Type Date Recorded Patient Fish Dressing Machine Feeder Expl anation Advance Directives and Living Will [...] the patient have Health Care Power of Games Manager? No Code Status History Code Status [...] Advance Directives occurred with: Patient Care Teams Birth Certificate Clerk Relationship Specialty Start Date End Date Luz Maria Gama DO [address] [place] [address] PCP - General Family Medicine 01/04/23 documented as of this encounter
--- OUTSIDE RECORDS SUMMARY | 2024-05-06 15:38 | External Medical Summary | Summary of Care ---
Author Name Unknown Organization [facility] Address [address] [place] [address] Phone [phone] Care Team Providers Care Simulation Educator Name Role Phone Luz Maria Gama DO Primary Care Provider [phone] Reason for Visit * Reason Onset Date Comments Home Health 11/29/2023 Encounter Details Date Type Department Care Team (Late st Contact Info) Description 11/29/[address] [facility] [address] [place] [address] Luz Maria Gama DO [address] [place] [address] Home Health Allergies No known active allergiesdocumented as of this encounter (statuses as of 12/03/2023) Medications Medication Sig Dispensed Refills Start Date End Date Status aspirin 81 MG chewable tablet Take 1 Tab by mouth daily. 30 Tab 11 08/17/20 15 Active nitroglycerin (NITROSTAT) 0.[address] [...] below 140/90,Ischemic cardiomyopathy,Cor onary artery disease involving [place] coronary artery of [place] heart without angina pectoris,Dyslipide k[place], goal LDL below 100,Essential hypertension with goal blood pressure less than 140/90 Take 1 Tablet by mouth in the morning. 90 Tablet 0 06/24/20 23 Active Doxycycline Monohydrate 50 MG Oral CapsuleIndications :Rosacea Take 1 capsule by mouth once daily 90 Capsule 1 06/24/20 23 Active Lisinopril 20 MG Oral Tablet (Prinivil)Indicati ons:HTN, goal below 140/90 Take 1 Tablet by mouth in the morning. 90 Tablet 3 11/04/19 24 Active CPAP every night at bedtime. 0 Active levETIRAcetam 500 MG Oral Tablet (Keppra)Indication s:Brain tumor (HCC),Brain mass Take 1 Tablet by mouth in the morning and 1 Tablet before bedtime. 60 Tablet 0 11/18/19 24 Active Naloxone HCl 0.4 MG/ML Injection Solution (Narcan)Indication s:Brain tumor (HCC),Brain mass Inject 1mL into a large muscle for suspected opioid overdose. Seek medical help immediately. http://youtu.be/ [email or web address] 1 mL 3 11/18/19 24 Active Ondansetron 4 MG Oral Tablet Disintegrating (Zofran) Place 1 Tablet on tongue every 8 hours as needed for Nausea. Dissolve on tongue. 20 Tablet 0 11/18/19 24 Active Naloxone HCl 4 MG/0.1ML Nasal Liquid (Narcan Nasal) Administer 1 spray into 1 nostril for suspected opioid overdose. Seek immediate medical attention. https://www.Veenomee.com/watch?v= y94yCnc3CfC 1 Each 3 11/18/19 24 Active Ondansetron HCl 8 MG Oral Tablet (Zofran) take 1 tablet every 8 hours as needed 60 Tablet 1 11/25/19 24 Active Temozolomide 100 MG Oral Capsule (Temodar) take 200 mg (2 capsules) by mouth daily. take with radiation therapy 30 Capsule 1 11/25/19 24 Active Sennosides 8.6 MG Oral Tablet (Senokot) Take 2 Tablets by mouth in the morning and 2 Tablets before bedtime. 60 Tablet 0 11/18/19 24 024 Discontinued(Re fill) dexAMETHasone 2 MG Oral Tablet (Decadron) Take 2 Tablets by mouth 2 times a day with morning and evening meals for 1 day, THEN 1 Tablet 2 times a day with morning and evening meals for 3 days. 10 Tablet 0 11/18/19 24 024 Discontinued Famotidine 20 MG Oral Tablet (Pepcid) Take 1 Tablet by mouth in the morning and 1 Tablet before bedtime. 60 Tablet 0 11/18/19 24 024 Discontinued Morphine Sulfate 15 MG Oral Tablet (Msir) Take 1 Tablet by mouth every 6 hours as needed for severe Pain or breakthrough Pain. 20 Tablet 0 11/23/19 24 024 Discontinued documented as of this encounter (statuses as of 12/03/2023) Active Problems Problem Noted Date Diagnosed Date [...] as of this encounter (statuses as of 12/03/2023) Resolved Problems Problem Noted Date Diagnosed Date [...] as of this encounter (statuses as of 12/03/2023) Immunizations Name Administration Dates Next Due COVID-19 [...] encounter Miscellaneous Notes * Telephone Encounter - Luz Maria Gama DO - 12/03/2023 2:26 PM EDT Completed * Telephone Encounter - Cara Becerra LPN - 12/01/2023 8:35 AM EDT Leslie Mo calling from [facility]. Will fax over the orders. * Telephone Encounter - Emelyn Song OSA - 12/01/2023 8:26 AM EDT Reason for Leslie Mo's call: lab orders placed by oncologist Caller was transferred to Cara at the nurse line. * Telephone Encounter - Cara Becerra LPN - 11/29/2023 2:20 PM EDT Mariah RN calling from [facility]. Asking if it is okay to accept orders for blood work from the patients oncologist? Dr. Copeland? It is a CBC and a CMP. Said they have to call and ask if it is from another doctor. Please advise. * Telephone Encounter - Harriet Cast OSA - 11/29/2023 2:18 PM EDT Reason for patient's call: Leslie from [facility] health needs to speak with nurse about orders. Caller was transferred to Cara at the nurse line. documented in this encounter Plan of Treatment Upcoming Encounters Date Type Department Care Team (Late st Contact Info) Description 12/22/2023 9:30 AM EDT Telemedicine Palliative Medicine, [facility] [address] [facility] 5th [place] [address] Nathalie Nichole PA-C [address] [place] [address] 02/22/2024 11:30 AM EDT Imaging Radiology [facility] 1st Floor, [place] [address] [facility] [place] [address] 03/20/2024 10:50 AM EDT Office [facility] [address] [facility] [phone] Luz Maria Gama, [address] [facility] [address] 09/29/2024 1:00 PM EST Office Visit Neurology [facility] [place] [address] [facility] [place] [address] Mariama Hinojosa, DO [address] [facility] [place] [address] Scheduled Procedures Name Priority Associated Diagnoses Date/Ti [...] Documents on File Type Date Recorded Patient Entry Processor Expl anation POLST 12/03/2023 9:15 AM POLST [...] the patient have Health Care Power of President [place]? No Code Status History Code Status Date [...] Advance Directives occurred with: Patient Care Teams Simulation Educator Relationship Specialty Start Date End Date Luz Maria Gama DO [address] [place] [id number] PCP - General Family Medicine 01/04/23 documented as of this encounter
--- OUTSIDE RECORDS SUMMARY | 2024-05-06 15:38 | External Medical Summary | Summary of Care ---
Author Name Unknown Organization [facility] Address [address] [place] [address] Phone [phone] Care Team Providers Care Assistant Clinical Nurse Manager Name Role Phone Luz Maria Gama DO Primary Care Provider Reason for Visit * Reason Onset Date Comments Medication Question 11/23/2023 Pre Cert/Prior Auth 11/23/2023 Morphine sul fate 15mg tabs Encounter Details Date Type Department Care Team (Late st Contact Info) Description 11/23/2023 Telephone [facility] [place] [address] [place] [address] Louis Souza IV, PA-C [address] [place] [address] Medication Question; Pre Cert/Prior Auth [...] below 140/90,Ischemic cardiomyopathy,Aristeo nary artery disease involving [place] coronary artery of [place] heart without angina pectoris,Dyslipidem ia, goal LDL [...] suspected opioid overdose. Seek medical help immediately. [email or web address].be [email or web address] 1 mL 3 11/18/2023 Active Ondansetron 4 MG Oral Tablet Disintegrating (Zofran) Place 1 Tablet on tongue every 8 hours as needed for Nausea. Dissolve on tongue. 20 Tablet 0 11/18/2023 Active Naloxone HCl 4 MG/0.1ML Nasal Liquid (Narcan Nasal) Administer 1 spray into 1 nostril for suspected opioid overdose. Seek immediate medical attention. https://www.yepme.com.com/watch? v=[email or web address] 1 Each 3 11/18/2023 Active Morphine Sulfate [...] encounter Miscellaneous Notes * Telephone Encounter - Anne Fernandez CPhT - 11/24/2023 8:21 AM EST Pharmacy calling to inform doctor that the patient's insurance will not pay for this medication without a completed prior authorization. Did confirm this information with the pharmacy. Pt's current insurance information is as follows: Patient name: Remy Lujan ID number: [id number] BIN number: [id number] PCN number: [facility] Group number: [id number] Subscriber name: Remy Lujan Primary or Secondary Insurance:Primary Medication: morphine sulfate 15mg tabs Reason for Request: prior auth required Pharmacy and phone number: [facility] [phone] Rx plan and phone number: [facility] [phone] Is this a new medication for the patient? Yes What alternative medications does the pharmacy have in stock?: none Thank you, Anne Fernandez CphT Quality Supervisor III [facility] Services(CCPS) (formerly Telepharmacy) 11/24/2023,8:22 AM * Telephone Encounter - Audelia Castano PHARM Tech - 11/23/2023 1:19 PM EST Patient spouse called in today asking for medication that was prescribed by neuro surgery transferred to specialty line Thank you, Audelia Castano Second Hand Paper Machine I [facility] ([facility]PS)(formerly Telepharmacy) 11/23/2023,1:20 PM * Telephone Encounter - Kecia Herbert CPhT - 11/23/2023 1:17 PM EST Pt calling in and said she requested a rx for Morphine tablets, and a rx for Morphine Sulfate 10 MG/5ML Oral Solution was sent in instead. Pt uses [facility] requests high priority. Please advise. Thank you, Kecia Herbert CPht Quality Supervisor II [facility] (CCPS) (formerly Telepharmacy) 11/23/2023, 1:18 PM documented in this encounter Plan of Treatment Upcoming Encounters Date Type Department Care Team (Late st Contact Info) Description 03/20/2024 10:50 AM EDT Office Visit [facility] [address] [place] [phone] Luz Maria Gama, [address] [place] [address] 09/29/2024 1:00 PM EST Office Visit Neurology [facility] [address] [place] [address] Mariama Hinojosa, DO [address] [place] [address] Scheduled Procedures Name Priority Associated Diagnoses Date/Ti [...] Documents on File Type Date Recorded Patient Flight Control Tower Operator Expl anation Advance Directives and Living [...] the patient have Health Care Power of Trolley Car Overhauler? No Code Status History Code Status Date [...] Advance Directives occurred with: Patient Care Teams Assistant Clinical Nurse Manager Relationship Specialty Start Date End Date Luz Maria Gama DO [address] [place] [address] PCP - General Family Medicine 01/04/23 documented as of this encounter
--- OUTSIDE RECORDS SUMMARY | 2024-05-06 15:38 | External Medical Summary | Summary of Care ---
Author Name Unknown Organization [facility] Address [address] [place] [address] Phone [phone] Care Team Providers Care State Trooper Name Role Phone Luz Maria Gama Primary Care Provider [phone] Reason for Visit * Reason Onset Date Comments Palliative Care Follow-up 12/01/2023 Encounter Details Date Type Department Care Team (Late st Contact Info) Description 12/01/2023 Telephone Palliative Medicine [facility] [address] [place] [address] Keisha Tompkins MD [address] [place] [address] Palliative Care Follow-up Allergies No known [...] 140/90,Ischemic cardiomyopathy,Beltrán ry artery disease involving [place] coronary artery of [place] heart without angina pectoris,Dyslipidemia , goal LDL [...] 0 Active levETIRAcetam 500 MG Oral Tablet (Keppra)Indications:B rain tumor (HCC),Brain mass Take 1 Tablet by mouth in the morning and 1 Tablet before bedtime. 60 Tablet 0 11/18/2023 Active Naloxone HCl 0.4 MG/ML Injection Solution (Narcan)Indications:B rain tumor (HCC),Brain mass Inject 1mL into a large muscle for suspected opioid overdose. Seek medical help immediately. [email or web address] 1 mL 3 11/18/2023 Active Ondansetron 4 MG Oral Tablet Disintegrating (Zofran) Place 1 Tablet on tongue every 8 hours as needed for Nausea. Dissolve on tongue. 20 Tablet 0 11/18/2023 Active Naloxone HCl 4 MG/0.1ML Nasal Liquid (Narcan Nasal) Administer 1 spray into 1 nostril for suspected opioid overdose. Seek immediate medical attention. https://www.CloudSpongee.com/watch?v= [email or web address] 1 Each 3 11/18/2023 Active Ondansetron HCl 8 MG Oral Tablet (Zofran) take 1 tablet every 8 hours as needed 60 Tablet 1 11/25/2023 Active Temozolomide 100 MG Oral Capsule (Temodar) take 200 mg (2 capsules) by mouth daily. take with radiation therapy 30 Capsule 1 11/25/2023 Active Morphine Sulfate ER 30 MG Oral Tablet Extended Release (Ms Contin)Indications:Ca ncer related pain Take 1 Tablet by mouth in the morning and 1 Tablet before bedtime. 30 Tablet 0 12/01/2023 Active Morphine Sulfate 15 MG Oral Tablet (Msir)Indications:Can cer related pain Take 1 Tablet by mouth every 4 hours as needed for Pain, Severe. 0 12/01/2023 Active Polyethylene Glycol 3350 17 GM Oral Packet (Miralax)Indications: Constipation due to pain medication Take 1 Packet by mouth in the morning. 14 Each 0 12/01/2023 Active Sennosides 8.6 MG Oral Tablet (Senokot)Indications: Constipation due to pain medication Take 2 Tablets by mouth at bedtime. 60 Tablet 0 12/01/2023 Active documented as of this encounter (statuses [...] Encounter - Sandra Cisneros LPN - 12/01/2023 12:45 PM EDT Patient gets HH services through [facility] No longer wants to continue with PT and OT at this time Would like to keep Intermediate Call to [facility] HH Informed of above documented in this encounter Plan of Treatment Upcoming Encounters Date Type Department Care Team (Late st Contact Info) Description 12/22/2023 9:30 AM EDT Telemedicine Palliative Medicine, [facility] [address] [facility] 5th Floor [place] [address] Nathalie Nichole PA-C [address] [facility] [place] [address] 02/22/2024 11:30 AM EDT Imaging Radiology [facility] 1st [facility], [place] [address] [place] [address] 03/20/2024 10:50 AM EDT Office Visit [facility] [place] [address] [place] [phone] Luz Maria Gama, [address] [place] [address] 09/29/2024 1:00 PM EST Office Visit Neurology [facility] [place] [address] [facility] [address] Mariama Hinojosa, DO [address] [facility] [place] [address] Scheduled Procedures Name Priority Associated Diagnoses [...] Documents on File Type Date Recorded Patient Transit Survey Worker Expl anation Advance Directives and Living [...] the patient have Health Care Power of Certified Ophthalmic Surgical Assistant? No Code Status History Code Status Date [...] Advance Directives occurred with: Patient Care Teams State Trooper Relationship Specialty Start Date End Date Luz Maria Gama DO [address] [facility] [place] [address] PCP - General Family Medicine 01/04/23 documented as of this encounter
--- OUTSIDE RECORDS SUMMARY | 2024-05-06 15:38 | External Medical Summary | Summary of Care ---
Author Name Unknown Organization [facility] Address [address] [place] [facility] [place] [address] Phone [phone] Care Team Providers Care Gas Line Installer Name Role Phone Luz Maria Gama DO Primary Care Provider Reason for Visit * Reason Onset Date Comments FYI 11/24/2023 Service denial Encounter Details Date Type Department Care Team (Late st Contact Info) Description 11/24/2023 Telephone [facility] [address] [place] [address] Luz Maria Gama DO [address] [place] [address] FYI (Service denial) Allergies No known active allergiesdocumented as of [...] below 140/90,Ischemic cardiomyopathy,Coron christiane artery disease involving [place] coronary artery of [place] heart without angina pectoris,Dyslipidemi a, goal LDL [...] suspected opioid overdose. Seek medical help immediately. http://youtu.be/-[email or web address] 1 mL 3 11/18/2023 Active Ondansetron 4 MG Oral Tablet Disintegrating (Zofran) Place 1 Tablet on tongue every 8 hours as needed for Nausea. Dissolve on tongue. 20 Tablet 0 11/18/2023 Active Naloxone HCl 4 MG/0.1ML Nasal Liquid (Narcan Nasal) Administer 1 spray into 1 nostril for suspected opioid overdose. Seek immediate medical attention. https://www.Mambu.com/watch?v=v26c Glj3YuH 1 Each 3 11/18/2023 Active Morphine Sulfate 15 MG Oral Tablet (Msir) Take 1 Tablet by mouth every 6 hours as needed for severe Pain or breakthrough Pain. 20 Tablet 0 11/23/2023 Active documented as of this encounter (statuses [...] encounter Miscellaneous Notes * Telephone Encounter - Marva Lizama LPN - 11/24/2023 7:17 AM EST Letter on doctor's desk regarding standard denial notice / approval of different service items. Not sure if you need to do anything or not. documented in this encounter Plan of Treatment Upcoming Encounters Date Type Department Care Team (Late st Contact Info) Description 12/01/2023 10:30 AM EDT Office Visit Palliative Medicine [facility] [address] [place] [address] Keisha Tompkins MD [address] [place], [place] [address] [address] 02/22/2024 11:30 AM EDT Imaging Radiology [facility] 1st [facility] [address] [facility] [place] [address] 03/20/2024 10:50 AM EDT Office Visit Family [facility] [address] [facility] [place] [phone] Luz Maria Gama DO [address] [facility] [place] [address] 09/29/2024 1:00 PM EST Office Visit Neu[facility] [address] [facility] [address] Mariama Hinojosa, DO [address] [place] [address] Scheduled Procedures Name Priority Associated Diagnoses Date/Ti [...] on File Type Date Recorded Patient Database Coordinator Expl anation Advance Directives and Living [...] the patient have Health Care Power of Cardiology Clinical Consultant? No Code Status History Code Status Date [...] Advance Directives occurred with: Patient Care Teams Gas Line Installer Relationship Specialty Start Date End Date Luz Maria Gama DO [address] [place] [address] PCP - General Family Medicine 01/04/23 documented as of this encounter
--- OUTSIDE RECORDS SUMMARY | 2024-05-06 15:38 | External Medical Summary | Summary of Care ---
Author Name Unknown Organization [facility] Address [address] [facility] [place] [address] Phone [phone] Care Team Providers Care Family Caseworker Name Role Phone Luz Maria Gama DO Primary Care Provider Encounter Details Date Type Department Care Team (Late st Contact Info) Description 11/24/2023 Orders Only [place] [address] [place] [address] Luz Maria Gama DO [address] [place] [address] Allergies No known active allergiesdocumented [...] below 140/90,Ischemic cardiomyopathy,Coron christiane artery disease involving [place] coronary artery of [place] heart without angina pectoris,Dyslipidemi a, goal LDL [...] suspected opioid overdose. Seek medical help immediately. [email or web address].be/-[email or web address] 1 mL 3 11/18/2023 Active Ondansetron 4 MG Oral Tablet Disintegrating (Zofran) Place 1 Tablet on tongue every 8 hours as needed for Nausea. Dissolve on tongue. 20 Tablet 0 11/18/2023 Active Naloxone HCl 4 MG/0.1ML Nasal Liquid (Narcan Nasal) Administer 1 spray into 1 nostril for suspected opioid overdose. Seek immediate medical attention. https://www.youtub e.com/watch?v=v26c Wpt3UxW 1 Each 3 11/18/2023 Active Morphine Sulfate [...] Description 03/20/2024 10:50 AM EDT Office Visit [facility] [address] [place] [phone] Luz Maria Gama, [address] [place] [address] 09/29/2024 1:00 PM EST Office Visit Neurology [facility] [address] [facility] [place] [address] Mariama Hinojosa, DO [address] [place] [address] Scheduled Procedures Name Priority Associated [...] Procedure Name Priority Date/Time Associated Diagnosis Comments CHEMISTRY-OUTSIDE Routine 11/22/2023 documented in this encounter Results * (ABNORMAL) CHEMISTRY-OUTSIDE (11/22/2023) Not all results display below - see scan for full detail OUTSIDE LAB (SEE SCANNED REPORT) Comment:SCAN INCLUDES - CMP, CBCD CREATININE-OUTSID E LAB 1.17 0.8 - 1.5 OUTSIDE LAB (SEE SCANNED REPORT) EGFR-OUTSIDE LAB 72 >59 OUT SIDE LAB (SEE SCANNED REPORT) POTASSIUM-OUTSIDE LAB 4.2 3.6 - 5.0 OUTSIDE LAB (SEE SCANNED REPORT) GLUCOSE-OUTSIDE LAB 118(A) 70 - 99 OUTSIDE LAB (SEE SCANNED REPORT) HOURS FASTING OUTSID E LAB (SEE SCANNED REPORT) TRIGLYCERIDES-OUT SIDE LAB OUTSIDE LAB (SEE SCANNED REPORT) CHOLESTEROL-OUTSI DE LAB OUTSIDE LAB (SEE SCANNED REPORT) HDL-OUTSIDE LAB OUTS JUSTIN LAB (SEE SCANNED REPORT) CHOL/HDL RATIO-OUTSIDE LAB OUTSIDE LA B (SEE SCANNED REPORT) LDL (CALCULATED)-OUTS JUSTIN LAB OUTSIDE LAB (SEE SCANNED REPORT) LDL (DIRECT MEASURE)-OUTSIDE LAB OUTSIDE LAB (SEE SCANNED REPORT) HEMOGLOBIN, G4L-VHODTUJ LAB OUTSIDE LAB (SEE SCANNED REPORT) PHOSPHORUS-OUTSID E LAB OUTSIDE LAB (SEE SCANNED REPORT) PTH-OUTSIDE LAB OUTS JUSTIN LAB (SEE SCANNED REPORT) MICROALBUMIN RATIO-OUTSIDE LAB OUTSIDE LA B (SEE SCANNED REPORT) PROTEIN, UA-OUTSIDE LAB OUTSIDE LAB (SEE SCANNED REPORT) HEMOGLOBIN-OUTSID E LAB 15.0 14.0 - 16.8 OUTSIDE LAB (SEE SCANNED REPORT) 11/22/2023 History Per Patient LABORATORY OUTSIDE LAB (SEE SCANNED REPORT) documented in this encounter Advance Directives Documents on File Type Date Recorded Patient Nut Culler Expl anation Advance Directives and Living Will [...] the patient have Health Care Power of Agricultural Equipment Salesperson? No Code Status History Code Status Date [...] Advance Directives occurred with: Patient Care Teams Family Caseworker Relationship Specialty Start Date End Date Luz Maria Gama DO [address] [facility] [place] [address] PCP - General Family Medicine 01/04/23 documented as of this encounter
--- OUTSIDE RECORDS SUMMARY | 2024-05-06 15:38 | External Medical Summary | Summary of Care ---
Author Name Unknown Organization [facility] Address [address] [place] [address] Phone [phone] Care Team Providers Care Mold Yard Supervisor Name Role Phone Luz Maria Gama Primary Care Provider Reason for Visit * Reason Onset Date Comments Medication Refill 12/12/2023 Encounter Details Date Type Department Care Team (Late st Contact Info) Description 12/12/2023 Refill Neurosurgery, [place] [address] [place], [place] [id number] Louis Souza IV, PA-C [address] [place] [address] Brain tumor (HCC); Brain mass [...] below 140/90,Ischemic cardiomyopathy,Beltrán ry artery disease involving [place] coronary artery of [place] heart without angina pectoris,Dyslipidemia , goal [...] suspected opioid overdose. Seek medical help immediately. http://[email or web address].be/ [email or web address] 1 mL 3 11/18/2023 Active Ondansetron 4 MG Oral Tablet Disintegrating (Zofran) Place 1 Tablet on tongue every 8 hours as needed for Nausea. Dissolve on tongue. 20 Tablet 0 11/18/2023 Active Naloxone HCl 4 MG/0.1ML Nasal Liquid (Narcan Nasal) Administer 1 spray into 1 nostril for suspected opioid overdose. Seek immediate medical attention. https://www.ZenCard.com/watch?v= [email or web address] 1 Each 3 11/18/2023 Active Ondansetron HCl [...] before bedtime. 60 Tablet 0 12/10/2023 Active documented as of this encounter (statuses [...] encounter Miscellaneous Notes * Telephone Encounter - Alek Garcia - 12/13/2023 12:30 AM EDTRefused Prescriptions: Disp Refills levETIRAcetam 500 MG Oral Tablet (Keppra) 60 Tab*0 Sig: Take 1 Tablet by mouth in the morning and 1 Tablet before bedtime.Refused By: ALEK GARCIAReason for Refusal: Duplicate Request documented in this encounter Plan of Treatment Upcoming Encounters Date Type Department Care Team (Late st Contact Info) Description 12/22/2023 9:30 AM EDT Telemedicine Palliative Medicine, [address] 5th [place] [address] Nathalie Nichole PA-C [address] [facility] [place] [address] 02/22/2024 11:30 AM EDT Imaging Radiology [address] [facility] [place] [address] 03/20/2024 10:50 AM EDT Office Visit [facility] [address] [place] [phone] Luz Maria Gama, DO [address] [place] [address] 09/29/2024 1:00 PM EST Office Visit Neurology [facility] [address] [place] [address] Mariama Hinojosa, DO [address] [place], [place] [address] Scheduled Procedures Name Priority Associated Diagnoses Date/Ti [...] Documents on File Type Date Recorded Patient Technology Administrator Expl anation POLST 12/03/2023 9:15 AM POLST [...] the patient have Health Care Power of Dialysis Registered Nurse? No Code Status History Code Status Date [...] Advance Directives occurred with: Patient Care Teams Mold Yard Supervisor Relationship Specialty Start Date End Date Luz Maria Gama DO [address] [facility] [place] [address] PCP - General Family Medicine 01/04/23 documented as of this encounter
--- OUTSIDE RECORDS SUMMARY | 2024-05-06 15:38 | External Medical Summary | Summary of Care ---
Author Name Unknown Organization [facility] Address [address] [place] [address] Phone [phone] Care Team Providers Care Department [employer] Name Role Phone Luz Maria Gama Primary Care Provider Reason for Visit * Reason Comments NEW PATIENT Encounter Details Date Type Department Care Team (Late st Contact Info) Description 12/01/2023 10:30 AM EDT Office Visit Palliative Medicine [facility] [address] [place] [address] Keisha Tompkins MD [address] [place] [id number] Cancer related pain*; Constipation due to pain medication; Encounter for palliative care; DNR (do not resuscitate); Glioblastoma, IDH-wildtype (HCC) Allergies No known active allergiesdocumented as [...] below 140/90,Ischemic cardiomyopathy,Cor onary artery disease involving match-e-be-n[place]she[place]wish band coronary artery of match-e-[place] heart without angina pectoris,Dyslipide kavon, goal LDL [...] suspected opioid overdose. Seek medical help immediately. [email or web address].comu.be/ [email or web address] 1 mL 3 11/18/19 24 Active Ondansetron 4 MG Oral Tablet Disintegrating (Zofran) Place 1 Tablet on tongue every 8 hours as needed for Nausea. Dissolve on tongue. 20 Tablet 0 11/18/19 24 Active Naloxone HCl 4 MG/0.1ML Nasal Liquid (Narcan Nasal) Administer 1 spray into 1 nostril for suspected opioid overdose. Seek immediate medical attention. https://www.Wrigglee.com/[email or web address] 1 Each 3 11/18/19 24 Active Ondansetron HCl 8 MG Oral Tablet (Zofran) take 1 tablet every 8 hours as needed 60 Tablet 1 11/25/19 24 Active Temozolomide 100 MG Oral Capsule (Temodar) take 200 mg (2 capsules) by mouth daily. take with radiation therapy 30 Capsule 1 11/25/19 24 Active Morphine Sulfate ER 30 MG Oral Tablet Extended Release (Ms Contin)Indications :Cancer related pain Take 1 Tablet by mouth in the morning and 1 Tablet before bedtime. 30 Tablet 0 12/01/19 24 Active Morphine Sulfate 15 MG Oral Tablet (Msir)Indications: Cancer related pain Take 1 Tablet by mouth every 4 hours as needed for Pain, Severe. 0 12/01/19 24 Active Polyethylene Glycol 3350 17 GM Oral Packet (Miralax)Indicatio ns:Constipation due to pain medication Take 1 Packet by mouth in the morning. 14 Each 0 12/01/19 24 Active Sennosides 8.6 MG Oral Tablet (Senokot)Indicatio ns:Constipation due to pain medication Take 2 Tablets by mouth at bedtime. 60 Tablet 0 12/01/19 24 Active Sennosides 8.6 MG Oral Tablet [...] mRNA, LNP-s, No Pre serve, 2-Dose Series (infibond) 12/02/2020,10/28/2020 Pneumococcal Polysaccharide PPV23 (Pneumovax) Seasonal Influenza, [...] Smokeless Tobacco: Former Snuff Tobacco Cessation:Counseling Given: No Comments:smokes cigar occas Alcohol Use Standard Drinks/Week [...] Sign Reading Time Taken Comments Blood Pressure 121/74 12/01/2023 10:22 AM EDT Pulse 56 12/01/2023 10:22 AM EDT Temperature 36.3 C (97.4 F) 12/01/2023 1 0:22 AM EDT Respiratory Rate 18 12/01/2023 10:2 2 AM EDT Oxygen Saturation 98% 12/01/2023 10: 22 AM EDT Inhaled Oxygen Concentration - - Weight 143.4 kg (316 lb 1.6 oz) 024 10:22 AM EDT Height - - Body Mass Index 40.58 11/05/2023 10:12 PM EST documented in this [...] * Patient Instructions* Keisha Tompkins MD - 12/01/2023 10:11 AM EDT Our Palliative Medicine Clinic is available Wednesday through Wednesday during business hours, so we are unavailable on weekends and holidays. Please ensure that you request refills early in the week as itmay take 1-2 days for them to be addressed and filled, for authorizations to be approved, or for the pharmacy to order them if needed. You can contact our office at [phone], which is our clinic in [place], or you can message us on SEElogix. If you have an emergency outside of these hours, we recommend calling your primary care clinic, Oncology office, or going to the ER if you have a medical emergency. For pain, use MS Contin 30mg TWICE a day - do not skip a dose For pain in between doses, take the Morphine IR 15mg every FOUR hours as needed For bowels, take Miralax in the day with water Take 2 tablets of Senna at night We will do a video visit on December 21 at 930 am Call us sooner if needed Put the pink POLST form on the refrigerator documented in this encounter Progress Notes * Keisha Tompkins MD - 12/01/2023 10:37 AM EDT Images from the original note were not included. Palliative Medicine Outpatient Consult Note [facility] Palliative Medicine Outreach [address] [place] [address] Name: Remy Lujan Date: 12/01/2023 Referring Provider: Self Reason for Consult: Goals of care; Pain and symptom management Patient accompanied by partner Candi, history obtained from both HPI: Remy Lujan is a 58 year old male with a primary diagnosis of glioblastoma, L temporo-occipital, s/p subtotal resection on 11/10/23. He also has hearing loss from Meniere's disease as well asexpressive aphasia. He was [facility] [place] [facility] [place] [facility] [place] plan was for radiation and daily temodar for 6 weeks, then a 4 week break, then get the Optune device.He is planning to transition hiscare for chemo and radiation to [facility] as that is closer to his house, although is 30 minutesaway, and he is an hour and a half from this clinic. His partner however lives in this area. Referred to palliative goals of care and symptom management Overall he has been doing okay, his pain medication was actually switched from MS Contin 15 mg 3 times a day, while to MSIR 15 mg, and he feels like since then he is feeling very tired. He is taking MSIR about 3 to 4 times a day. He has been very sleepy and it is hard for him to get out He lives alone although he does have neighbors named Umair stover to check on him daily. His partner Candi lives now in half from him. He is getting [facility] home health and has PT and OT coming as well as nursing to check his vitals. He has not sure that he wants to continue with PT and OT at this time. Palliative symptoms: Pain: As above Nausea/Vomiting: no Constipation: yes Confusion: no Somnolence: yes Dyspnea: no Mood: no Other: None ROS: See HPI. All other systems negative. Functional Status: - Palliative Performance Scale: 80% - Activities of Daily Living: (bolded items indicate areas of independence) 6/6 BADL (transfer, toilet, continence, bathe, dress self, feed self) 6/7 IADL (meds, transport, telephone, shop, housekeeping, meal prep, money management) - all excepttransport - Ambulates: unassisted SHx: Family Support: Candi is his partner of 10 years, has neighbors and friends Language: Upper Sorbian Lives alone Children: none Prior employment: [employer] Favorite activities: Loves being outside, kayaking, or at the [employer] PHYSICAL EXAMINATION: Constitutional: BP 121/74 | Pulse 56 | Temp 36.3 C (97.4 F) | Resp 18 | Wt (!) 143.4 kg (316 lb1.6 oz) | SpO2 98% | BMI 40.58 kg/m | BSA 2.74 m , no acute distress breathing ambient air comfortably HENT: normocephalic, atraumatic. Eyes: anicteric, sclera and conjunctiva normal. Neck: no stridor Chest: normal respiratory effort Abdominal: nondistended Extremities: no edema, no clubbing, no cyanosis Neuro: alert, oriented to person, place, and time Psych: normal mood and affect Data Review: External notes reviewed: - Reviewed notes from [facility] Dr Cast on 11/22/23 - plan as above - Reviewed notes from Dr Ornelas on 11/22/23- plan as above Lab / Imaging Results: Cr 1.1, normal from 11/18/23 Information obtained from partner Candi for collateral history Decision-making Capacity: Does Patient have Decisional Capacity? y Does Patient have a Healthcare Agent? Y, Candi POA Discussion with Patient & Family: Met with patient and Candi Introduced role of Outpatient Palliative Medicine team and reviewed symptoms as above. Reviewed patient's/family's understanding of current medical situation. Pt has significant hearing impairment and expressive aphasia. He is unsure whether or not he wants to do chemo/radiation, he feels he does not have a clear senseof prognosis. Is OK if we were to ask. Advanced Care Planning: AD: Has a living will, they had 2 ppl sign it Asked permission to discuss ACP Reviewed 3 pathways of care - full vs limited vs comfort. He is ok with limited tx for now, but if declines wants to be comfortable. Goal is to pass away at home. Reviewed CPR and poor success rates in setting of serious illness. He is clear he is a DNR He is ok with LIMITED tx He is ok with abx for comfort Does not want artificial nutrition, ok with IV hydration POLST completed, original given to patient, copy taken to be put into EMR under ACP docs but also scanned into Chart Review --> Scans ASSESSMENT/PLAN: Remy Lujan is a/an 58 year old male referred for consultation to Palliative Medicine with the primary diagnosis of: Glioblastoma, s/p L temporal resection, plan for chemo/radiation at [facility] [place] Cancer related pain Expressive aphasia Hearing impairment Opioid induced constipation Goals of care - is open to treatment currently, but if declines, DNR/DNI Recommendations: His new oncology team will be: Hem Onc will be: Nuria Copeland [phone] Davonte Lorenzana MD at [facility] [phone] Will CC our note to them For pain, will make his regimen MS Contin 30mg BID with MS IR 15mg q4h PRN for breakthrough pain. They had 19 or so MSIR tablets so will hold off on refilling that for now. Given controlled Rx prescription (MS Contin), he was assessed for risk of misuse, abuse and addiction and deemed safe for this medication. He was educated on adverse effects of opioids. He was informed we will complete random urine drug screens. He agrees. PDMP reviewed, no risk of misuse or diversion. Controlled substance agreement reviewed and completed, signed by myself and patient. Copy given to patient and kept in office records. 3. For bowels, use Miralax in AM and Senna 2 tab at night 4. For hearing, he has an audiology appt and Candi will set that up for him. 5. Advised him not to drive. He just wants to go to the [facility], advised at some point we can try to get him there if that's his goal. Discussed other safety measures at home as wel. 6. Will f/u in 3 weeks by video Thank you for this consult. We appreciate the opportunity to take part in the care of your patient. Note routed back to referring provider and PCP. Keisha Tompkins MD Palliative Medicine Physician [facility] Office: [phone] 12/01/2023 * Sandra Cisneros LPN - 12/01/2023 10:16 AM EDT NEW Palliative Visit Here with Candi, friend-has healthcare POA Pain: 7/10 in left side of head Was sent home from [facility] on Morphine ER 15mg TID Was filled next fill at the pharmacy MSIR 15mg every 6 hours The ER worked much better than the MSIR Was taking tylenol as a supplement with the ER morphine That regimine was managing his pain mostly well Last BM: today. No issues. Taking Senna as on med list Eating well No N/V Sleeps a lot, but good Mood is up and down documented in this encounter Miscellaneous Notes * ACP (Advance Care Planning) - Keisha Tompkins MD - 12/01/2023 12:35 PM EDT Advance Care Planning Patient-centered Communication 12/01/2023 The patient/surrogate voluntarily agreed to participate in advance care planning discussion. They were advised that this is a separate service which may incur out of pocket cost in the form of copayment and/or deductibles. Location: Clinic Individual(s) present for conversation: Patient and Significant Other Decisions [employer] Most Recent Value Past ~10 years 12/01/2023 12:36 Decisions CPR decision: Declines CPR 12/01/2023 Declines CPR Intubation/Mechanical Ventilation decision: Declines Intubation/mechanical ventilation 12/01/2023 Declines Intubation/mechanical ventilation Additional Comments Discerning What Matters Most to the Patient: [employer] Most Recent Value Past ~10 years 12/01/2023 12:36 Discerning What Matters Most to the Patient Their current SYMPTOMS include: Pain 12/01/2023 Pain Source: Content from [facility] Cho[facility] Aligning Care With What Matters Most: [employer] Most Recent Value Past ~10 years 12/01/2023 12:36 Aligning Care With What Matters Most Interventions/Choices: Intubation/mechanical ventilation;CPR 12/01/2023 Intubation/mechanical ventilation;CPR Rationale for Decisions Advanced Care Planning: AD: Has a living will, they had 2 ppl sign it Asked permission to discuss ACP Reviewed 3 pathways of care - full vs limited vs comfort. He is ok with limited tx for now, but if declines wants to be comfortable. Goal is to pass away at home. Reviewed CPR and poor success rates in setting of serious illness. He is clear he is a DNR He is ok with LIMITED tx He is ok with abx for comfort Does not want artificial nutrition, ok with IV hydration POLST completed, original given to patient, copy taken to be put into EMR under ACP docs but also scanned into Chart Review --> Scans Source: Content from [facility] Choices [facility] 21 minutes spent in direct odor-xj-tref discussion today, Keisha Tompkins MD documented in this encounter Plan of Treatment Upcoming Encounters Date Type Department Care Team (Late st Contact Info) Description 12/22/2023 9:30 AM EDT Telemedicine Palliative Medicine, [facility] [address] [place] [address] Nathalie Nichole PADenC [address] [place], [place] [id number] 02/22/2024 11:30 AM EDT Imaging Radiology [facility] [address] [facility] [address] [place] [address] 03/20/2024 10:50 AM EDT Office Visit [facility] [address] [place] [id number] Luz Maira Gama, DO [address] [place] [address] 09/29/2024 1:00 PM EST Office Visit Neurology [facility] [address] [place] [address] Mariama Hinojosa, DO [address] [place] [address] Scheduled Procedures Name Priority Associated [...] pain- Primary Neoplasm related pain (acute) (chronic) Constipation due to pain medication Other constipation Encounter for palliative care DNR (do not resuscitate) Do not resuscitate status Glioblastoma, IDH-wildtype (HCC) documented in this encounter Advance Directives Documents on File Type Date Recorded Patient Automation And Controls Supervisor Expl anation Advance Directives and Living [...] the patient have Health Care Power of Screen Printing Loader Unloader? No Code Status History Code Status Date [...] Advance Directives occurred with: Patient Care Teams Department Head College Or [employer] Relationship Specialty Start Date End Date Luz Maria Gama DO [address] [id number] PCP - General Family Medicine 01/04/23 documented as of this encounter"
--- OUTSIDE RECORDS SUMMARY | 2024-05-06 15:39 | External Medical Summary | Summary of Care ---
Author Name Unknown Organization [facility] Address [address] [place] [address] Phone [phone] Care Team Providers Care Hand Straightener Name Role Phone EdmondLuz Maria roe Primary Care Provider Reason for Visit * Reason Onset Date Comments TRIAGE 11/19/2023 Encounter Details Date Type Department Care Team (Late st Contact Info) Description 11/19/2023 Telephone [facility], [place] [address], [place] [id number] Services, [facility] [address] [place] [address] TRIAGE Allergies No known active allergiesdocumented as of this encounter (statuses as of 11/19/2023) Medications Medication Sig Dispensed Refills Start Date [...] below 140/90,Ischemic cardiomyopathy,Coron christiane artery disease involving craig coronary artery of craig heart without angina pectoris,Dyslipidemi a, goal LDL [...] before bedtime. 60 Tablet 0 11/18/2023 Active dexAMETHasone 2 MG Oral Tablet (Decadron) Take 2 Tablets by mouth 2 times a day with morning and evening meals for 1 day, THEN 1 Tablet 2 times a day with morning and evening meals for 3 days. 10 Tablet 0 11/18/2023 Active Famotidine 20 MG Oral Tablet (Pepcid) Take 1 Tablet by mouth in the morning and 1 Tablet before bedtime. 60 Tablet 0 11/18/2023 Active levETIRAcetam 500 MG Oral Tablet (Keppra)Indications: Brain tumor (HCC),Brain mass Take 1 Tablet by mouth in the morning and 1 Tablet before bedtime. 60 Tablet 0 11/18/2023 Active Morphine Sulfate ER 15 MG Oral Tablet Extended Release (Ms Contin) Take 1 Tablet by mouth in the morning and 1 Tablet at noon and 1 Tablet before bedtime. 20 Tablet 0 11/18/2023 Active Naloxone HCl 0.4 MG/ML Injection Solution (Narcan)Indications: Brain tumor (HCC),Brain mass Inject 1mL into a large muscle for suspected opioid overdose. Seek medical help immediately. http://youtu.be/-[email or web address] 1 mL 3 11/18/2023 Active Ondansetron 4 MG Oral Tablet Disintegrating (Zofran) Place 1 Tablet on tongue every 8 hours as needed for Nausea. Dissolve on tongue. 20 Tablet 0 11/18/2023 Active Morphine Sulfate 10 MG/5ML Oral Solution Take 2.5 mL by mouth every 8 hours as needed for moderate, severe or breakthrough pain. 100 mL 0 11/18/2023 Active Naloxone HCl 4 MG/0.1ML Nasal Liquid (Narcan Nasal) Administer 1 spray into 1 nostril for suspected opioid overdose. Seek immediate medical attention. [email or web address]://www.youtub [email or web address]/watch?v=v26c [email or web address] 1 Each 3 11/18/2023 Active documented as of this encounter (statuses as of 11/19/2023) Active Problems Problem Noted Date Diagnosed Date Glioblastoma 11/18/2023 S/P craniotomy 11/18/2023 Palliative care encounter 11/12/2023 Goals of care, counseling/discussion 11/12/2023 Cancer related pain 11/12/2023 Nonintractable headache 11/12/2023 Postoperative pain 11/12/2023 Decreased appetite 11/12/2023 Therapeutic opioid-induced constipation (OIC) Word finding difficulty 11/12/2023 Agitation 11/12/2023 Brain mass 11/08/2023 Brain tumor 11/05/2023 Meniere disease, 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 Neuro Director Of Cardiology Service Line- [id number] Neurology Pool Numbers- [place] - follow normal process O[place] [facility] [place] [id number] Ops req [place] [facility] ([place]- [facility] and [facility] Only)- [id number] Neurosurgery Pool Numbers- [place] patients- follow normal process Ops [place] [facility] [place] [id number] Ops req Neurosurgery [facility] ([place] Only) [id number] Requested Information from caller: Who is calling (not pt) name: Candi relationship: caregiver Provider patient is established with: brain tumor clinic What is the concern or issue they are having: pt caregiver is asking if appt on 11/21 could be changed to a video because its a 2hr drive for them one way to [place] please advise How long has the issue been going on: n/a Any additional details to add: no phone number for nurse to call back: [phone] Please make sure you verify pharmacy for anything medication related. Form to be used for established patients only (not new patients) documented in this encounter Plan of Treatment Upcoming Encounters Date Type Department Care Team (Late st Contact Info) Description 03/20/2024 10:50 AM EDT Office Visit [place] [address] [place] [id number] Luz Maria Gama, [address] [place] [address] 09/29/2024 1:00 PM EST Office Visit Neurology [facility] [address] [place] [address] Mariama Hinojosa, DO [address] [place] [address] Scheduled Procedures Name Priority Associated [...] filedocumented as of this encounter Advance Directives Latest Code Status on File Code Status Date Activated Date Inactivated Comments Full Code 11/10/2023 3:44 PM 11/18/2023 6:36 PM This order reflects the patients wishes and were consensually agreed upon. Question Answer Comments Discussion of Advance Directives occurred with: Not Discussed due to patient's condition Does the patient have a Living Will? No Does the patient have Health Care Power of Student Services Representative? No Code Status History Code Status Date [...] Directives occurred with: Patient Care Teams Hand Straightener Relationship Specialty Start Date End Date Luz Maria Gama DO [address] [facility] [address] PCP - General Family Medicine 01/04/23 documented as of this encounter
--- OUTSIDE RECORDS SUMMARY | 2024-05-06 15:39 | External Medical Summary | Summary of Care ---
Author Name Unknown Organization [facility] Address [address] [place] [address] Phone [phone] Care Team Providers Care Production Line Welder Name Role Phone Nicole Gramajo Primary Care Provider Reason for Visit * Reason Onset Date Comments Referral 11/19/2023 Encounter Details Date Type Department Care Team (Late st Contact Info) Description 11/19/2023 Telephone Palliative Medicine [facility] [address] [place] [address] Services, Scheduling [address] [place] [address] Referral Allergies No known active allergiesdocumented as of [...] below 140/90,Ischemic cardiomyopathy,Coron christiane artery disease involving navajo coronary artery of navajo heart without angina pectoris,Dyslipidemi a, goal LDL [...] opioid overdose. Seek medical help immediately. http://youtu.be/-[email or web address] 1 mL 3 11/18/2023 Active Ondansetron 4 [...] suspected opioid overdose. Seek immediate medical attention. https://www.ApniCure e.com/watch?v=v26c Cvc6DzE 1 Each 3 11/18/2023 Active documented as [...] Answer Date Recorded PHQ Adult Total Score 13 01/01/2023 Hunger Vital Sign Answer Date Recorded Within the past 12 months, y ou worried that your food would run out before you got the money to buy more. Never true 01/02/20 23 Within the past 12 months, t he food you bought just didn't last and you didn't have money to get more. Never true 01/01/2023 Sex and Gender Information Value Date Recorded [...] encounter Miscellaneous Notes * Telephone Encounter - Prisca Hein OSA - 11/19/2023 8:30 AM EST LMOM to schedule Palliative HD. * Telephone Encounter - Prisca Hein OSA - 11/19/2023 6:17 AM EST Images from the original note were not included. Needs 2-3 wk hd/fu = 60 minute hd Order RETURN APPT [IP355] (Order [id number]) Juancarlos Lujan 11/05/2023 10:12 PM Admission Description: 58 year old male Department: AP4 IP [facility] Message Patient Name: JUANCARLOS LUJAN([id number]) Sex: Male : 1965 PCP: NICOLE GRAMAJO Center: [facility] Types of orders made on 11/18/2023: IP Post Discharge , Lab, Medications, Referral Order Date:11/18/2023 Ordering User:CARRIE RONDON [[id number]] Attend ing Provider:Jann Phipps MD [[id number]] Authorizing Provider: Carrie Rondon DO [[id number]] Department:AP4 [facility][[id number]] Order Specific Information Order: RETURN APPT [CUSTOM: [id number]] Order #: [id number] Priority: Routine Class: Nursing Unit Department (Single Entry) -> Palliative Medicine Released on: 11/18/2023 10:56 AM Priority: Routine Class: Nursing U nit Department (Single Entry) -> Palliative Medicine Released on: 11/18/2023 10:56 AM Order Information Date and Time Department Released By/Authorizing 11/18/2023 10:56 AM 4 [facility] Carrie Rondon DO (auto-released) documented in this encounter Plan of Treatment Upcoming Encounters Date Type Department Care Team (Late st Contact Info) Description 11/22/2023 10:45 AM EST [facility] [address] [place] [address] Clinic, Brain Tumor Multidisciplinary [address] [place] [address] 11/22/2023 2:00 PM EST Office Visit [place] [address] [place] [phone] Em Haq MD [address] [place] [address] 03/20/2024 10:50 AM EDT Office Visit [facility] [address] [place] [phone] Nicole Gramajo DO [address] [place] [address] 09/29/2024 1:00 PM EST Office Visit Neurology [facility] [place] [address] [place] [address] Mariama Hinojosa DO [address] [place] [address] Scheduled Procedures Name Priority Associated Diagnoses Date/Ti me COLONOSCOPY FLEXIBLE PROXIMA L DIAGNOSTIC Recall Encounter for screening colonoscopy Health Maintenance Due Date Last Done Comments Depression, Most Recent Scor e >= 10 (will fire each visit until score < 10) 01/02/2023 01/01/2023 COVID-19 Vaccine (2022-10 4 season) 2023 06/08/2021, 12/02/2020, 10/28/2020 Influenza Vaccine (FLU shot) (#1) 2023 020, 06/30/2018 Colonoscopy Discontinued 09/01/2016, 09/01/2016 Colorectal Cancer Screening [...] the patient have Health Care Power of Mine Wedge Sawyer? No Code Status History Code Status Date [...] Advance Directives occurred with: Patient Care Teams Production Line Welder Relationship Specialty Start Date End Date Nicole Gramajo DO [address] [facility] [place] [address] PCP - General Family Medicine 01/04/23 documented as of this encounter
--- OUTSIDE RECORDS SUMMARY | 2024-05-06 15:39 | External Medical Summary | Summary of Care ---
Author Name Unknown Organization [facility] Address [address] [place] [address] Phone [phone] Care Team Providers Care Manager Mass Name Role Phone EdmondLuz Maria roe Primary Care Provider Reason for Visit * Reason Onset Date Comments TRIAGE 11/19/2023 Encounter Details Date Type Department Care Team (Late st Contact Info) Description 11/19/2023 Telephone [facility] [place] [address], [place] [id number] Services, [facility] [address] [place] [address] TRIAGE Allergies No known active allergiesdocumented as of this encounter (statuses as of 11/22/2023) Medications Medication Sig Dispensed Refills Start Date [...] below 140/90,Ischemic cardiomyopathy,Cor onary artery disease involving kobuk coronary artery of kobuk heart without angina pectoris,Dyslipide kavon, goal LDL [...] bedtime. 60 Tablet 0 11/18/19 24 Active dexAMETHasone 2 MG Oral Tablet (Decadron) Take 2 Tablets by mouth 2 times a day with morning and evening meals for 1 day, THEN 1 Tablet 2 times a day with morning and evening meals for 3 days. 10 Tablet 0 11/18/19 24 // 024 Active Famotidine 20 MG Oral Tablet (Pepcid) Take 1 Tablet by mouth in the morning and 1 Tablet before bedtime. 60 Tablet 0 11/18/19 24 Active levETIRAcetam 500 MG Oral Tablet (Keppra)Indication s:Brain tumor (HCC),Brain mass Take 1 Tablet by mouth in the morning and 1 Tablet before bedtime. 60 Tablet 0 11/18/19 24 Active Naloxone HCl 0.4 MG/ML Injection Solution (Narcan)Indication s:Brain tumor (HCC),Brain mass Inject 1mL into a large muscle for suspected opioid overdose. Seek medical help immediately. [email or web address]/ [email or web address] 1 mL 3 11/18/19 24 Active Ondansetron 4 MG Oral Tablet Disintegrating (Zofran) Place 1 Tablet on tongue every 8 hours as needed for Nausea. Dissolve on tongue. 20 Tablet 0 11/18/19 24 Active Naloxone HCl 4 MG/0.1ML Nasal Liquid (Narcan Nasal) Administer 1 spray into 1 nostril for suspected opioid overdose. Seek immediate medical attention. https://www.Semba Biosciencese.com/watch?v= [email or web address] 1 Each 3 11/18/19 24 Active Morphine Sulfate ER 15 MG Oral Tablet Extended Release (Ms Contin) Take 1 Tablet by mouth in the morning and 1 Tablet at noon and 1 Tablet before bedtime. 20 Tablet 0 11/18/19 24 024 Discontinued(Re fill) Morphine Sulfate 10 MG/5ML Oral Solution Take 2.5 mL by mouth every 8 hours as needed for moderate, severe or breakthrough pain. 100 mL 0 11/18/19 24 024 Discontinued documented as of this encounter (statuses as of 11/22/2023) Active Problems Problem Noted Date Diagnosed Date [...] as of this encounter (statuses as of 11/22/2023) Resolved Problems Problem Noted Date Diagnosed Date Resolved Date Brain mass 11/08/2023 11/19/2023 Bradycardia, sinus 01/21/2023 Body mass index (BMI) of 45. 0 to 49.9 in adult 07/29/2020 11/04/2020 Overview: Per Obesity protocol - Body mass index (BMI) of 40. 0 to 44.9 in adult 06/21/2017 08/01/2020 Overview: Per Obesity protocol #1 Venous insufficiency 04/23/2016 024 Testicular hypogonadism 09/24/2015 08/ HTN (hypertension) 08/17/2015 06//201 6 Overview: Per HTN Protocol NSTEMI (non-ST elevated myoc ardial infarction) 08/16/2015 08/17/2015 documented as of this encounter (statuses as of 11/22/2023) Immunizations Name Administration Dates Next Due COVID-19 mRNA, LNP-s, No Pre serve, 2-Dose Series ([employer]) 12/02/2020,10/28/2020 Pneumococcal Polysaccharide PPV23 (Pneumovax) Seasonal [...] LPN - 11/22/2023 1:19 PM EST Called [facility] spoke with Abby Informed her that patient's insurance is [facility] [employer], last week when I sent information to them his chart showed [employer] as primary insurance. I also stated that the MGMT results are available. She stated that she spoke with Brittanie and she asked that I fax the copy of the card along with theresults to them. She also took the [facility] Family ID number over the phone. I thanked her. Faxed above information as requested and asked that they call back if they do not accept the patient's insurance. * Telephone Encounter - Yesenia Herrera LPN - 11/22/2023 7:36 AM EST Out of order: Called [facility] spoke with Brittanie early childhood coordinator. Informed her that we would like to refer patient with GBM for appt. MART. She requested I fax referral along with records and demographic information to [phone] and have imaging sent to them. She stated the records will be reviewed and they will have to check insurance to see if they accept it. I stated that I will do that right away and thanked her. Called [facility] Radiation Oncology spoke with Janis. Informed her that we would like to refer patient with GBM for appt. MART. She requested I fax referral along with records and demographic information to [phone] and have imaging sent to them. I stated that I will do that right away and thanked her. Successfully faxed records to both [facility] Hematology Oncology and Radiation Oncology as requested. Called [facility] spoke with Jesenia requested she push all head and neck imaging from 11/05/23 to present to [facility]. She stated that she will do [...] asked doesn't our surgeon come up to [place]. I stated no he does not. She stated that coming to [place] on Wednesday is not doable. I messaged [...] email to send the link to is [email or web address]. I also informed her that the email containing the link for the visit will come from . I stated that about 10 minutes prior [...] okay to receive radiation and chemo at [facility] as that is about 20 miles [...] message to the pool, update current TE [facility] Neurology Pool- All messages go through the [facility] Neuro Prosthetic Aide- [id number] Neurology Pool Numbers- [place] and [place] patients - follow normal process Ops req [facility] Neurology ([place])- [id number] Ops req [facility] ([place]- [facility] and [facility] Only)- [id number] Neurosurgery Pool Numbers- [place] patients- follow normal process Ops req Neurosurgery [facility] ([place])- [id number] Ops req Neurosurgery [facility] ([place] Only) [id number] Requested Information from caller: Who is calling (not pt) name: Candi relationship: caregiver Provider patient is established with: brain tumor clinic What is the concern or issue they are having: pt caregiver is asking if appt on 11/21 could be changed to a video because its a 2hr drive for them one way to [place] please advise How long has the issue been going on: n/a Any additional details to add: no phone number for nurse to call back: [phone] Please make sure you verify pharmacy for anything medication related. Form to be used for established patients only (not new patients) documented in this encounter Plan of Treatment Upcoming Encounters Date Type Department Care Team (Late st Contact Info) Description 03/20/2024 10:50 AM EDT Office Visit [facility] [address] [place] [phone] Luz Maria Gama, [address] [place] [address] 09/29/2024 1:00 PM EST Office Visit Neurology [facility] [address] [place] [address] Mariama Hinojosa, DO [address] [place] [address] Scheduled Procedures Name Priority Associated [...] Documents on File Type Date Recorded Patient Stem Lead Former Expl anation Advance Directives and Living [...] the patient have Health Care Power of Cheese Blender? No Code Status History Code Status Date [...] Advance Directives occurred with: Patient Care Teams Manager Mass Relationship Specialty Start Date End Date Luz Maria Gama DO [address] [facility] [place] [address] PCP - General Family Medicine 01/04/23 documented as of this encounter
--- OUTSIDE RECORDS SUMMARY | 2024-05-06 15:39 | External Medical Summary | Summary of Care ---
Author Name Unknown Organization [facility] Address [address] [place] [facility] [place] [address] Phone [phone] Care Team Providers Care Paperhanger Assistant Name Role Phone Luz Maria Gama DO Primary Care Provider Encounter Details Date Type Department Care Team (Late st Contact Info) Description 11/23/2023 Telephone [facility] [address] [place] [address] Luz Maria Gama DO [address] [place] [address] Allergies No known active allergiesdocumented as of this encounter (statuses as of 11/23/2023) Medications Medication Sig Dispensed Refills Start Date [...] below 140/90,Ischemic cardiomyopathy,Beltrán ry artery disease involving yocha dehe coronary artery of yocha dehe heart without angina pectoris,Dyslipidemia , goal LDL below 100,Essential hypertension with goal blood pressure less than 140/90 Take 1 Tablet by mouth in the morning. 90 Tablet 0 06/24/2023 Active Doxycycline Monohydrate 50 MG Oral CapsuleIndications:Carla de leon Take 1 capsule by mouth once daily [...] 11/18/2023 Active levETIRAcetam 500 MG Oral Tablet (Keppra)Indications:B rain tumor (HCC),Brain mass Take 1 Tablet by mouth in the morning and 1 Tablet before bedtime. 60 Tablet 0 11/18/2023 Active Naloxone HCl 0.4 MG/ML Injection Solution (Narcan)Indications:B rain tumor (HCC),Brain mass Inject 1mL into a large muscle for suspected opioid overdose. Seek medical help immediately. [email or web address] [email or web address].be/ [email or web address] 1 mL 3 11/18/2023 Active Ondansetron 4 MG Oral Tablet Disintegrating (Zofran) Place 1 Tablet on tongue every 8 hours as needed for Nausea. Dissolve on tongue. 20 Tablet 0 11/18/2023 Active Naloxone HCl 4 MG/0.1ML Nasal Liquid (Narcan Nasal) Administer 1 spray into 1 nostril for suspected opioid overdose. Seek immediate medical attention. https://www.yout ube.com/watch?v= [email or web address] 1 Each 3 11/18/2023 Active Morphine Sulfate 10 MG/5ML Oral Solution Take 2.5 mL by mouth every 8 hours as needed for Pain, Severe or Pain, Breakthrough. 50 mL 0 11/22/2023 Active documented as of this encounter (statuses as of 11/23/2023) Active Problems Problem Noted Date Diagnosed Date [...] as of this encounter (statuses as of 11/23/2023) Resolved Problems Problem Noted Date Diagnosed Date [...] as of this encounter (statuses as of 11/23/2023) Immunizations Name Administration Dates Next Due COVID-19 [...] encounter Miscellaneous Notes * Telephone Encounter - Irma Marques LPN - 11/23/2023 1:17 PM EST Called and made Rachelle aware * Telephone Encounter - Dario Jones MD - 11/23/2023 12:48 PM EST Notify : Yes * Telephone Encounter - Shira Jackson OSA - 11/23/2023 9:23 AM EST OT did pt eval they want to know if they are okay to send over plan of care for pcp to sign Call back [phone] rachelle documented in this encounter Plan of Treatment Upcoming Encounters Date Type Department Care Team (Late st Contact Info) Description 03/20/2024 10:50 AM EDT Office [facility] [address] [facility] [phone] Luz Maria Gama DO [address] [place] [address] 09/29/2024 1:00 PM EST Office Visit [facility]rology [facility] [place] [address] [facility] [address] Mariama Hinojosa DO [address] [place] [address] Scheduled Procedures Name Priority Associated Diagnoses Date/Ti [...] on File Type Date Recorded Patient Clinical Technician Expl anation Advance Directives and Living [...] the patient have Health Care Power of Claim Investigator? No Code Status History Code Status Date [...] Advance Directives occurred with: Patient Care Teams Paperhanger Assistant Relationship Specialty Start Date End Date Luz Maria Gama DO [address] [place] [address] PCP - General Family Medicine 01/04/23 documented as of this encounter
--- OUTSIDE RECORDS SUMMARY | 2024-05-06 15:39 | External Medical Summary | Summary of Care ---
Author Name Unknown Organization [facility] Address [address] [place] [address] Phone [phone] Care Team Providers Care Veneer Slicing Machine Operator Name Role Phone Luz Maria Gama Primary Care Provider Reason for Visit * Reason Onset Date Comments TRIAGE 11/19/2023 Encounter Details Date Type Department Care Team (Late st Contact Info) Description 11/19/2023 Telephone [facility] [place] [address] [place], [place] [id number] Services, [facility] [address] [place] [address] TRIAGE Allergies No known active allergiesdocumented as [...] below 140/90,Ischemic cardiomyopathy,Aristeo nary artery disease involving capitan grande band coronary artery of capitan grande band heart without angina pectoris,Dyslipidem ia, goal LDL [...] for 3 days. 10 Tablet 0 11/18/2023 11/22/19 24 Active Famotidine 20 MG Oral Tablet (Pepcid) [...] suspected opioid overdose. Seek medical help immediately. [email or web address] 1 mL 3 11/18/2023 Active Ondansetron 4 [...] suspected opioid overdose. Seek immediate medical attention. https://www.CrowdyHouse.com/watch?v=v2 [email or web address] 1 Each 3 11/18/2023 Active Morphine Sulfate ER 15 MG Oral Tablet Extended Release (Ms Contin) Take 1 Tablet by mouth in the morning and 1 Tablet at noon and 1 Tablet before bedtime. 20 Tablet 0 11/18/2023 11/19/19 24 Discontinu ed(Refill) documented as of this encounter (statuses as [...] 7:36 AM EST Out of order: Called [facility] Hematology Oncology spoke with Brittanie social services coordinator. Informed her that we would like to refer patient with GBM for appt. MART. She requested I fax referral along with records and demographic information to [phone] and have imaging sent to them. She stated the records will be reviewed and they will have to check insurance to see if they accept it. I stated that I will do that right away and thanked her. Called [facility] Radiation Oncology spoke with Janis. Informed her that we would like to refer patient with GBM for appt. MART. She requested I fax referral along with records and demographic information to [phone] and have imaging sent to them. I stated that I will do that right away and thanked her. Successfully faxed records to both [facility] Hematology Oncology and Radiation Oncology as requested. Called [facility] spoke with Jesenia requested she push all head and neck imaging from 11/05/23 to present to [facility]. She stated that she will do [...] asked doesn't our surgeon come up to [place]. I stated no he does not. She stated that coming to [place] on Wednesday is not doable. I messaged [...] email to send the link to is .[employer]. I also informed her that the email [...] okay to receive radiation and chemo at [facility] as that is about 20 miles [...] message to the pool, update current TE [facility] Neurology Pool- All messages go through the [facility] Neuro [place]- [id number] Neurology Pool Numbers- [place] and [place] patients - follow normal process Ops req [facility] Neurology ([place])- [id number] Ops req [place] Neurology ([place]- [facility] and [facility] clinics Only)- [id number] Neurosurgery Pool Numbers- [place] patients- follow normal process Ops req Neurosurgery [facility] ([place])- [id number] Ops req Neurosurgery [facility] ([place] Line Only) [id number] Requested Information from caller: Who is calling (not pt) name: Candi relationship: caregiver Provider patient is established with: brain tumor clinic What is the concern or issue they are having: pt caregiver is asking if appt on 11/21 could be changed to a video because its a [address]hr drive for them one way to [place] please advise How long has the issue been going on: n/a Any additional details to add: no phone number for nurse to call back: [phone] Please make sure you verify pharmacy for anything medication related. Form to be used for established patients only (not new patients) documented in this encounter Plan of Treatment Upcoming Encounters Date Type Department Care Team (Late st Contact Info) Description 11/22/2023 9:15 AM EST Telemedicine Neurosurgery, [place] [address] [place] [facility] [place] [address] Clinic, Brain Tumor Multidisciplinary [address] [place] [place] [address] 03/20/2024 10:50 AM EDT Office Visit [facility] [address] [place] [phone] Luz Maria Gama, [address] [place] [address] 09/29/2024 1:00 PM EST Office Visit Neurology [facility] [address] [place] [address] Mariama Hinojosa, [address] [place] [address] Scheduled Procedures Name Priority Associated Diagnoses Date/Ti [...] on File Type Date Recorded Patient Community Placement Worker Expl anation Advance Directives and Living [...] the patient have Health Care Power of Prototype Technician? No Code Status History Code Status Date [...] Advance Directives occurred with: Patient Care Teams Veneer Slicing Machine Operator Relationship Specialty Start Date End Date Luz Maria Gama DO [address] [facility] [place] [address] PCP - General Family Medicine 01/04/23 documented as of this encounter
--- OUTSIDE RECORDS SUMMARY | 2024-05-06 15:39 | External Medical Summary | Summary of Care ---
Author Name Unknown Organization [facility] Address [address] [place] [address] Phone [phone] Care Team Providers Care Small Products Assembler Name Role Phone Luz Maria Gama Primary Care Provider Reason for Visit * Reason Onset Date Comments Palliative Care Follow-up 11/23/2023 Encounter Details Date Type Department Care Team (Late st Contact Info) Description 11/23/2023 Telephone [facility] [address] [facility] 5th [place] [address] Keisha Tompkins MD [address] [place] [id number] Palliative Care Follow-up Allergies No known [...] below 140/90,Ischemic cardiomyopathy,Beltrán ry artery disease involving [place] coronary artery of [place] heart without angina pectoris,Dyslipidemia , goal LDL [...] suspected opioid overdose. Seek medical help immediately. [email or web address]://[email or web address] 1 mL 3 11/18/2023 Active Ondansetron 4 MG Oral Tablet Disintegrating (Zofran) Place 1 Tablet on tongue every 8 hours as needed for Nausea. Dissolve on tongue. 20 Tablet 0 11/18/2023 Active Naloxone HCl 4 MG/0.1ML Nasal Liquid (Narcan Nasal) Administer 1 spray into 1 nostril for suspected opioid overdose. Seek immediate medical attention. [email or web address]://www.[employer].com/watch?v= [email or web address] 1 Each 3 11/18/2023 Active Morphine Sulfate [...] f/u Was consulted/followed by Palliative IP at [facility] Was to f/u with Palliative Medicine at outpatient No answer Left message requesting return call to [phone] Letter was also sent to patient documented in this encounter Plan of Treatment Upcoming Encounters Date Type Department Care Team (Late st Contact Info) Description 03/20/2024 10:50 AM EDT Office Visit [facility] [address] [place] [address] Luz Maria Gama, DO [address] [place] [address] 09/29/2024 1:00 PM EST Office Visit Neurology [facility] [address] [facility] [place] [address] Mariama Hinojosa, DO [address] [place] [address] Scheduled Procedures Name Priority Associated Diagnoses Date/Ti [...] Documents on File Type Date Recorded Patient Administrative Specialist Expl anation Advance Directives and Living [...] the patient have Health Care Power of Production Material Handler? No Code Status History Code Status Date [...] Advance Directives occurred with: Patient Care Teams Small Products Assembler Relationship Specialty Start Date End Date Luz Maria Gama DO [address] [place] [address] PCP - General Family Medicine 01/04/23 documented as of this encounter
--- OUTSIDE RECORDS SUMMARY | 2024-05-06 15:39 | External Medical Summary | Summary of Care ---
Author Name Unknown Organization [facility] Address [address] [place] [address] Phone [phone] Care Team Providers Care Cargo Supervisor Name Role Phone Luz Maria Gama DO Primary Care Provider Reason for Visit * Reason Onset Date Comments Films 11/19/2023 Encounter Details Date Type Department Care Team (Late st Contact Info) Description 11/19/2023 Telephone Radiology Film File [address], [place] [id number] Ryan Bonilla DO [address] [facility] Hospital[facility] [place], [place] [id number] Films Allergies No known active allergiesdocumented as [...] below 140/90,Ischemic cardiomyopathy,Coron christiane artery disease involving [place] coronary artery of [place] heart without angina pectoris,Dyslipidemi a, goal LDL [...] opioid overdose. Seek medical help immediately. http://youtu.[email or web address] 1 mL 3 11/18/2023 Active Ondansetron 4 [...] suspected opioid overdose. Seek immediate medical attention. https://www.[email or web address]/watch?v=v26c Uwp0IwW 1 Each 3 11/18/2023 Active Morphine Sulfate ER 15 MG Oral Tablet Extended Release (Ms Contin)Indications:G lioblastoma (HCC) Take 1 Tablet by mouth in the morning and 1 Tablet at noon and 1 Tablet before bedtime. 20 Tablet 0 11/19/2023 Active documented as of this encounter (statuses [...] encounter Miscellaneous Notes * Telephone Encounter - Amairani Silva OSA - 11/19/2023 1:55 PM EST [facility] requesting all imaging from 11/05/23-present be pushed to their system. [place] Authorization not on file however documentation in the chart can be used to ascertain established care with this provider/office. Images pushed to [facility] All ([employer]) Associated report(s) not needed. documented in this encounter Plan of Treatment Upcoming Encounters Date Type Department Care Team (Late st Contact Info) Description 11/22/2023 9:15 AM EST Telemedicine Neurosurgery, [place] [address] [place] [facility] [place] [address] Clinic, Brain Tumor Multidisciplinary [address] [place] [facility] [place] [address] 03/20/2024 10:50 AM EDT Office Visit [address] [phone] Luz Maria Gama, DO [address] [place] [address] 09/29/2024 1:00 PM EST Office Visit Neurology [facility] [address] [place] [address] Jina Hinojosatony Krysta, DO [address] [place] [address] Scheduled Procedures Name Priority Associated Diagnoses Date/Ti [...] the patient have Health Care Power of Traveling Construction Superintendent? No Code Status History Code Status Date [...] Advance Directives occurred with: Patient Care Teams Cargo Supervisor Relationship Specialty Start Date End Date Luz Maria Gama DO [address] [address] PCP - General Family Medicine 01/04/23 documented as of this encounter
--- OUTSIDE RECORDS SUMMARY | 2024-05-06 15:39 | External Medical Summary | Summary of Care ---
Author Name Unknown Organization [facility] Address [address] [place] [address] Phone [phone] Care Team Providers Care Character Actress Name Role Phone SocratesLuz Maria martinez Primary Care Provider [phone] Reason for Referral * (Within 10 days (routine)) - Authorized Specialty Diagnoses / Procedures Referred By Jerel jackson Referred To Contact Radiology Diagnoses Glioblastoma (HCC) Procedures MRI NEURO 3-D RECONSTRUCTION Louis Souza IV, PA-C [address] [place] [address] Referral ID Status Reason Start Date Expiration Date V isits Requested Visits Authorized [id number] Authorized 02/22/2024 999 999 * Precert (Within 10 days (routine)) - Pending Review Specialty Diagnoses / Procedures Referred By Jerel jackson Referred To Contact Radiology Diagnoses Glioblastoma (HCC) Procedures MRI BRAIN W WO CONTRAST Louis Souza IV, PA-C [address] [place] [address] Referral ID Status Reason Start Date Expiration Date V isits Requested Visits Authorized [id number] Pending Review 02/22/2024 999 999 Encounter Details Date Type Department Care Team (Late st Contact Info) Description 11/22/2023 9:15 AM EST [facility] [address] [place] [address] Clinic, Brain Tumor Multidisciplinary [address] [place] [address] Glioblastoma (HCC)* Allergies No known active allergiesdocumented [...] below 140/90,Ischemic cardiomyopathy,Cor onary artery disease involving walker river coronary artery of walker river heart without angina pectoris,Dyslipide kavon, goal LDL [...] bedtime. 60 Tablet 0 11/18/19 24 Active Famotidine 20 MG Oral Tablet [...] suspected opioid overdose. Seek medical help immediately. [email or web address] 1 mL 3 11/18/19 24 Active Ondansetron 4 MG Oral Tablet Disintegrating (Zofran) Place 1 Tablet on tongue every 8 hours as needed for Nausea. Dissolve on tongue. 20 Tablet 0 11/18/19 24 Active Naloxone HCl 4 MG/0.1ML Nasal Liquid (Narcan Nasal) Administer 1 spray into 1 nostril for suspected opioid overdose. Seek immediate medical attention. https://www.[email or web address]/watch?v= [email or web address] 1 Each 3 11/18/19 24 Active Morphine Sulfate 15 MG Oral Tablet (Msir) Take 1 Tablet by mouth every 6 hours as needed for Pain, Severe or Pain, Breakthrough. 20 Tablet 0 11/23/19 24 Active dexAMETHasone 2 MG Oral Tablet (Decadron) Take 2 Tablets by mouth 2 times a day with morning and evening meals for 1 day, THEN 1 Tablet 2 times a day with morning and evening meals for 3 days. 10 Tablet 0 11/18/19 24 024 Morphine Sulfate 10 MG/5ML Oral Solution Take 2.5 mL by mouth every 8 hours as needed for moderate, severe or breakthrough pain. 100 mL 0 11/18/19 24 024 Discontinued Morphine Sulfate ER 15 MG Oral Tablet Extended Release (Ms Contin)Indications :Glioblastoma (HCC) Take 1 Tablet by mouth in the morning and 1 Tablet at noon and 1 Tablet before bedtime. 20 Tablet 0 11/19/19 24 024 Discontinued Morphine Sulfate 10 MG/5ML Oral Solution Take 2.5 mL by mouth every 8 hours as needed for Pain, Severe or Pain, Breakthrough. 50 mL 0 11/22/19 24 024 Discontinued(Me dication/Dose Changed) documented as of this encounter (statuses [...] * Patient Instructions* Yesenia Herrera LPN - 11/22/2023 9:40 AM EST You were seen today by the Brain Tumor Multidisciplinary Clinic at [facility]. You were seen today by Dr. Ornelas (Neurosurgery), Dr. Downey (Radiation Oncology), and Dr. Cast (Neuro Oncology) History: Newly diagnosed GBM Imaging Review: We reviewed your most recent imaging and pathology. Treatment Plan: Radiation therapy, Chemotherapy and Optune Referrals placed: Radiation Oncology, Hematology Oncology Follow up with us in 3 months (03/06/24) with repeat imaging. If you have any questions after today's visit, please contact our clinic at [phone]. You may ask to be connected to the Neuro Oncology team, or they will refer your message to us so we may respond in a timely manner. Thank you! documented in this encounter Progress Notes * Palak Cast MD - 11/22/2023 10:31 AM EST Patient location: HOME. I was in a hospital or clinic location. After connecting through televideo,patient was verified with two unique identifiers. Patient (or authorized legal career representative) was then informed that this was a Telemedicine visit and being conducted confidentially over secure lines. Methods to assure confidentiality were taken. Patient acknowledged consent and understanding of pr ivacy and security of the Telemedicine visit. The patient agreed to participate. Brain Tumor M[facility]--Medical Oncology Note Name: Remy Lujan Date: 11/22/2023 Primary Care Provider: Luz Maria Gama DO [...] Amplified for EGFR gene status. MGMT detected NGS Pending PRESENTING PROBLEM: pt with glioblastoma INTERVAL HISTORY: He is doing reasonably well, feels his speech is somewhat better. No new/worsening MERRILL. His is on the phone and they want to discuss next steps in his rx. He prefers to get rx in [place] or if [facility], then [place] ROS: pertinent positive/negative noted above. PAST MEDICAL HISTORY: Past Medical History: Diagnosis Date Bradycardia, sinus CAD (coronary artery disease) CxOM3 BMS 08/16/15 HTN, goal below 140/80 Hx of tobacco use, presenting hazards to health PAST SURGICAL HISTORY: Past Surgical History: Procedure Laterality Date COLONOSCOPY, DIAGNOSTIC (RECTUM) N/A 09/01/2016 normal biopsy/recall 10 years/COLONOSCOPY FLEXIBLE PROXIMAL DIAGNOSTIC performed by Dominik Herrera MD at OR [facility] CORONARY ANGIOGRAPHY W/LEFT HEART CATH Right 08/16/2015 CORONARY ANGIOGRAPHY W/LEFT HEART CATH performed by Joel Brambila MD at [facility]ARDIAC LABS [facility] MICROSURGERY ADD-ON Left 11/10/2023 MICROSURGICAL SURGERY REQUIRING MICROSCOPE LISTED SEPARATELY performed by Matteo Ornelas III, MD at OR [facility] REMOVE SUPRATENTORIAL BRAIN TUMOR Left 11/10/2023 CRANIOTOMY BONE FLAP EXCISION BRAIN TUMOR SUPRATENTORIAL performed by Matteo Ornelas III, [facility] OR [facility] REMOVE TONSILS & ADENOIDS, UNDER 12 STEREOTACTIC CRANIAL INTRADURAL NAVIGATION Left 11/10/2023 STEREOTACTIC CRANIAL INTRADURAL NAVIGATION performed by Matteo Ornelas III, MD at [facility] SOCIAL HISTORY: Social History Tobacco Use Smoking status: Former Current packs/day: 0.00 Average packs/day: 1.5 packs/day for 15.0 years (22.5 ttl pk-yrs) Types: Cigarettes Start date: 08/16/2000 Quit date: 08/16/2015 Years since quittin.2 Passive exposure: Never Smokeless tobacco: Former Types: Snuff Tobacco comments: smokes cigar occas Vaping Use Vaping Use: Never used Substance Use Topics Alcohol use: Yes Comment: weekly Drug use: No FAMILY HISTORY: Family History Problem Relation Age of Onset Lung cancer Mother Stomach cancer Grandmother (Maternal) Current Outpatient Medications Medication Sig Dispense Refill Morphine Sulfate 10 MG/5ML Oral Solution Take 2.5 mL by mouth every 8 hours as needed for Pain, Severe or Pain, Breakthrough. 50 mL 0 aspirin 81 MG chewable tablet Take 1 [...] mouth in the morning. 90 Tablet 0 Doxycycline Monohydrate 50 MG Oral Capsule Take 1 capsule by mouth once daily 90 Capsule 1 Lisinopril 20 MG Oral Tablet (Prinivil) Take 1 Tablet by mouth in the morning. 90 Tablet 3 CPAP every night at bedtime. Sennosides 8.6 MG Oral Tablet (Senokot) Take 2 Tablets by mouth in the morning and 2 Tablets beforebedtime. 60 Tablet 0 dexAMETHasone 2 MG Oral Tablet (Decadron) Take 2 Tablets by mouth 2 times a day with morning and evening meals for 1 day, THEN 1 Tablet 2 times a day with morning and evening meals for 3 days. 10 Tablet 0 Famotidine 20 MG Oral Tablet (Pepcid) Take 1 Tablet by mouth in the morning and 1 Tablet before bedtime. 60 Tablet 0 levETIRAcetam 500 MG Oral Tablet (Keppra) Take 1 Tablet by mouth in the morning and 1 Tablet beforebedtime. 60 Tablet 0 Naloxone HCl 0.4 MG/ML Injection Solution (Narcan) Inject 1mL into a large muscle for suspected opioid overdose. Seek medical help immediately. http://[email or web address].be/-[email or web address] 1 mL 3 Ondansetron 4 MG Oral Tablet Disintegrating (Zofran) Place 1 Tablet on tongue every 8 hours as needed for Nausea. Dissolve on tongue. 20 Tablet 0 Naloxone HCl 4 MG/0.1ML Nasal Liquid (Narcan Nasal) Administer 1 spray into 1 nostril for suspectedopioid overdose. Seek immediate medical attention. https://www.YooDealube.com/watch?v=[email or web address] 1 Each 3 No current facility-administered medications for this visit. ALLERGIES: Review of patient's allergies indicates: No Known Allergies PHYSICAL EXAMINATION: Limited exam --remote visit Face symm Expressive aphasia+. AAOx3 LABS: Reviewed as documented in the chart IMAGES: Personally reviewed and discussed in [facility] MRI brain 11/11/23:IMPRESSION 1. Expected postoperative changes following left temporal lobe tumor resection with mild residual tumor involving the resection cavity margins, multicentric left parietal enhancement/satellite lesions, and subependymal tumor spread. 2. Stable incidental small right frontal convexity meningioma. 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 NGS--pending Meningioma( left frontal) Expr Aphasia Hearing Loss( Meniere's) I discussed the diagnosis, prognosis and natural history of Glioblastoma with the patient and theirfamily. Role for further therapy was reviewed. We discussed further therapy, recommend concurrent treatment with Radiation+ daily temodar for 6 weeks, followed by 4 week break. Then will start adjuvant temodar for 6 months and Optune TTField therapy Will get MRI scans q 2-3 months He would get Rx in [place] or in [place] He is tapering steroids Patient Active Problem List Diagnosis Code Rosacea L71.9 Former smoker Z87.891 Coronary artery disease without angina pectoris I25.10 HTN, goal below 140/90 I10 Dyslipidemia, goal LDL below 100 E78.5 Adjustment disorder with depressed mood F43.21 Ischemic cardiomyopathy I25.5 Erythrocytosis D75.1 Class 3 severe obesity due to excess calories with serious comorbidity and body mass index (BMI) of40.0 to 44.9 in adult (HCC) E66.01, Z68.41 ALEKSANDR (obstructive sleep apnea) G47.33 Meniere disease, bilateral H81.03 Glioblastoma, IDH-wildtype (HCC) C71.9 Palliative care encounter Z51.5 Goals of care, counseling/discussion Z71.89 Cancer related pain G89.3 Nonintractable headache R51.9 Postoperative pain G89.18 Decreased appetite R63.0 Therapeutic opioid-induced constipation (OIC) K59.03, T40.2X5A Word finding difficulty R47.89 Agitation R45.1 S/P craniotomy Z98.890 I spent over 40mins on the date of service in the [...] Palak Cast MD Department of Medical Oncology 11/22/2023 * Louis Souza IV, PA-C - 11/22/2023 9:30 AM EST PROGRESS NOTE - Neurosurgery -- Brain Tumor [facility] [address] Name: Remy Lujan Date: 11/22/2023 Time: 9:31 AM Primary Care Provider: Luz Maria Gama DO PRESENTING PROBLEM: Post op, Glioblastoma Past NSGY Procedures: Dr. Ornelas 11/10/23 Left temporal craniotomy for tumor resection; use of brainlab stereotactic neuronavigation; use of the ultrasound with self interpretation; use of neurophysiological monitoring HPI: Remy Lujan is a 58 year old handed male who presents in tumor [facility] for postoperative follow-up.Patient underwent left temporal craniotomy as specified above. He presents today via video as he does not wish to travel from [facility] to clinic. His incision was closed with absorbable Monocryl sutures and he reports no issues, drainage, redness, swelling of the incision. He states his preoperative symptoms with aphasia and reading troubles are about stable and have not worsened. He denies any headaches or dung incisional tenderness. He states arms and legs are working well and he feels cary normal strength. Denies any new neurological symptoms. [...] Amplified for EGFR gene status. MGMT detected NGS Pending PAST MEDICAL HISTORY: Past Medical History: Diagnosis Date Bradycardia, sinus CAD (coronary artery disease) CxOM3 BMS 08/16/15 HTN, goal below 140/80 Hx of tobacco use, presenting hazards to health PAST SURGICAL HISTORY: Past Surgical History: Procedure Laterality Date COLONOSCOPY, DIAGNOSTIC (RECTUM) N/A 09/01/2016 normal biopsy/recall 10 years/COLONOSCOPY FLEXIBLE PROXIMAL DIAGNOSTIC performed by Dominik Herrera MD at OR [facility] CORONARY ANGIOGRAPHY W/LEFT HEART CATH Right 08/16/2015 CORONARY ANGIOGRAPHY W/LEFT HEART CATH performed by Joel Brambila MD at [facility] MICROSURGERY ADD-ON Left 11/10/2023 MICROSURGICAL SURGERY REQUIRING MICROSCOPE LISTED SEPARATELY performed by Matteo Ornelas III, MD at OR [facility] REMOVE SUPRATENTORIAL BRAIN TUMOR Left 11/10/2023 CRANIOTOMY BONE FLAP EXCISION BRAIN TUMOR SUPRATENTORIAL performed by Matteo Ornelas III, [facility] REMOVE TONSILS & ADENOIDS, UNDER 12 STEREOTACTIC CRANIAL INTRADURAL NAVIGATION Left 11/10/2023 STEREOTACTIC CRANIAL INTRADURAL NAVIGATION performed by Matteo Ornelas III, MD at [facility] SOCIAL HISTORY: Social History Socioeconomic History Marital status: Spouse name: Janeth Number of children: 2 Years of education: 14 Highest education level: Not on file Occupational History Occupation: [employer] Employer: [employer] Tobacco Use Smoking status: Former Current packs/day: 0.00 Average packs/day: 1.5 packs/day for 15.0 years (22.5 ttl pk-yrs) Types: Cigarettes Start date: 08/16/2000 Quit date: 08/16/2015 Years since quittin.2 Passive exposure: Never Smokeless tobacco: Former Types: Snuff Tobacco comments: smokes cigar occas Vaping Use Vaping Use: Never used Substance and Sexual Activity Alcohol use: Yes Comment: weekly Drug use: No Sexual activity: Yes Partners: Female Other Topics Concern Not on file Social History Narrative Household: Lives w/ and 1 natural son (5) and 's son (2). Exercise: Other: Social Determinants of Health Financial Resource Strain: Not on file Food Insecurity: No Food Insecurity (11/19/2023) Hunger Vital Sign Worried About Running Out of Food in the Last Year: Never true Ran Out of Food in the Last Year: Never true Transportation Needs: Not on file Physical Activity: Not on file Stress: Not on file Social Connections: Not on file Intimate Partner Violence: Not on file Housing Stability: Not on file FAMILY HISTORY: Family History Problem Relation Age of Onset [...] mouth in the morning. 90 Tablet 0 Doxycycline Monohydrate 50 MG Oral Capsule Take 1 capsule by mouth once daily 90 Capsule 1 Lisinopril 20 MG Oral Tablet (Prinivil) Take 1 Tablet by mouth in the morning. 90 Tablet 3 CPAP every night at bedtime. Sennosides 8.6 MG Oral Tablet (Senokot) Take 2 Tablets by mouth in the morning and 2 Tablets beforebedtime. 60 Tablet 0 dexAMETHasone 2 MG Oral Tablet (Decadron) Take 2 Tablets by mouth 2 times a day with morning and evening meals for 1 day, THEN 1 Tablet 2 times a day with morning and evening meals for 3 days. 10 Tablet 0 Famotidine 20 MG Oral Tablet (Pepcid) Take 1 Tablet by mouth in the morning and 1 Tablet before bedtime. 60 Tablet 0 levETIRAcetam 500 MG Oral Tablet (Keppra) Take 1 Tablet by mouth in the morning and 1 Tablet beforebedtime. 60 Tablet 0 Naloxone HCl 0.4 MG/ML Injection Solution (Narcan) Inject 1mL into a large muscle for suspected opioid overdose. Seek medical help immediately. [email or web address] 1 mL 3 Ondansetron 4 MG Oral Tablet Disintegrating (Zofran) Place 1 Tablet on tongue every 8 hours as needed for Nausea. Dissolve on tongue. 20 Tablet 0 Morphine Sulfate 10 MG/5ML Oral Solution Take 2.5 mL by mouth every 8 hours as needed for moderate,severe or breakthrough pain. 100 mL 0 Naloxone HCl 4 MG/0.1ML Nasal Liquid (Narcan Nasal) Administer 1 spray into 1 nostril for suspectedopioid overdose. Seek immediate medical attention. https://www.youtube.com/watch?v=[email or web address] 1 Each 3 Morphine Sulfate ER 15 MG Oral Tablet Extended Release (Ms Contin) Take 1 Tablet by mouth in the morning and 1 Tablet at noon and 1 Tablet before bedtime. 20 Tablet 0 No current facility-administered medications for this visit. ALLERGIES: Review of patient's allergies indicates: No Known Allergies ROS: A full 14 point ROS was reviewed and are only positive for the above noted pertinent complaints PHYSICAL EXAMINATION: Visit Vital Signs: There were no vitals taken for this visit. KPS: 90 Limited due to video visit Gen: Pt found sitting in chair; NAD Ext: Warm, dry and intact Psych: Pleasant and cooperative Neuro: AOx3 IMAGES: MRI Post op IMPRESSION 1. Expected postoperative changes following left temporal lobe tumor resection with mild residual tumor involving the resection cavity margins, multicentric left parietal enhancement/satellite lesions, and subependymal tumor spread. 2. Stable incidental small right frontal convexity meningioma. IMPRESSION: Patient 58 year old handed male who presents in tumor [facility] for postoperative follow-up. Patient underwent left temporal craniotomy as specified above. No new neurosurgical symptoms. We did prescribe and send the patient a refill dose of the morphine medication. We will follow up with us in 3 months with a new MRI. Patient Active Problem List Diagnosis Code Rosacea L71.9 Former smoker Z87.891 Coronary artery disease without angina pectoris I25.10 HTN, goal below 140/90 I10 Dyslipidemia, goal LDL below 100 E78.5 Adjustment disorder with depressed mood F43.21 Ischemic cardiomyopathy I25.5 Erythrocytosis D75.1 Class 3 severe obesity due to excess calories with serious comorbidity and body mass index (BMI) of40.0 to 44.9 in adult (HCC) E66.01, Z68.41 ALEKSANDR (obstructive sleep apnea) G47.33 Meniere disease, bilateral H81.03 Glioblastoma, IDH-wildtype ([facility]) C71.9 Palliative care encounter Z51.5 Goals of care, counseling/discussion Z71.89 Cancer related pain G89.3 Nonintractable headache R51.9 Postoperative pain G89.18 Decreased appetite R63.0 Therapeutic opioid-induced constipation (OIC) K59.03, T40.2X5A Word finding difficulty R47.89 Agitation R45.1 S/P craniotomy Z98.890 PLAN: Patient will be going to [place] for radiation and systemic chemotherapy F/u in 3 months in tumor [facility] Further recommendations and plan per our neuro-oncology/radiation-oncology colleagues Patient seen by Dr. Ornelas at today's encounter Call NS clinic with any questions or concerns Louis Souza IV, PA-C Department of Neurosurgery 11/22/2023 9:31 AM * Matteo Ornelas III, MD - 11/22/2023 9:27 AM EST NSGY Attending Attestation Patient location: HOME. I was in a hospital or clinic location. After connecting through televideo,patient was verified with two unique identifiers. Patient (or authorized legal career representative) was then informed that this was a Telemedicine visit and being conducted confidentially over secure lines. Methods to assure confidentiality were taken. Patient acknowledged consent and understanding of pr ivacy and security of the Telemedicine visit. The patient agreed to participate. I have reviewed the advanced practitioner's (Louis Souza PA-C) documentation on the date of servicereferenced in note, and I agree with, and take responsibility for the plan of care. Remy continues to have his mixed aphasia. His incision is doing well. There are no concerns neurologically about new problems or troubles with the incision. I reviewed the pathology of GBM. Dr. Downey discussed getting PO XRT, and Dr. Cast reviewed concurrent and adjuvant temodar. She also reviewed Optune. He is from quite a distance. He is desirous of getting care in the [place] area. All questions were answered. Thank you kindly for the opportunity to visit with him today. We can f/u with him in 3 mo with a new MRI if he is so inclined. Matteo Ornelas III, MD, PhD 11/22/2023 9:34 AM * Vipul Downey MD - 11/22/2023 9:15 AM EST Images from the original note were not included. RADIATION ONCOLOGY FOLLOW-UP NOTE [facility] Remy Lujan [id number] 58 year old Patient location: HOME. I was in a hospital or clinic location. After connecting through televideo,patient was verified with two unique identifiers. Patient (or authorized legal career representative) was then informed that this was a Telemedicine visit and being conducted confidentially over secure lines. Methods to assure confidentiality were taken. Patient acknowledged consent and understanding of pr ivacy and security of the Telemedicine visit. The patient agreed to participate. 58 year old male with a glioblastoma of the left temporoparietal junction, IDH- wt, s/p left temporal craniotomy for subtotal tumor resection 11/10/2023 INTERVAL HISTORY: 11/11/2023 MRI brain (could fuse series #21 and #14) 11/15/2023 Last seen by Rad Onc The patient's reading comprehension is still impaired but he's doing well otherwise. Medications were reviewed and updated. ZUBROD PERFORMANCE SCALE: 2 ambulatory and capable of all self-care but unable to carry out any work activities, up and aboutmore than 50% of waking hours PHYSICAL EXAMINATION: There were no vitals taken for this visit. Wt Readings from Last 4 Encounters: 11/18/23 (!) 145.4 kg (320 lb 9.6 oz) 11/04/23 (!) 145.4 kg (320 lb 8 oz) 10/25/23 (!) 146.2 kg (322 lb 6.4 oz) 04/02/23 131.4 kg (289 lb 11.2 oz) General: alert and oriented, no apparent [...] ALT 30 10 - 50 U/L ASSESSMENT: 11/22/2023 [facility] recommendation: chemoRT (conventional schedule); three month f/u in [facility] after MRI brain The rationale, the risks, the benefits, the alternatives, and the personnel of radiotherapy were explained to the patient. The role of other modalities, including surgery, systemic therapy, medical management, and observation, were also discussed. The natural history of the patient's disease was explained. All questions were answered and the patient expressed understanding of the relevant issues. The patient is in agreement with this plan. He was previously referred to [facility] Oncology andRad Onc per patient preference. PLAN: The patient will follow-up in the [facility] in three months Follow-up with other physicians is as already scheduled. 11/22/2023 Fam Prac (Eun) 09/29/2024 Neurology (Micaela) The patient will contact us in the meantime with questions or concerns. Thank you for having asked us to take part in this patient's care. I spent 30 minutes on this patients care on the date of service. Vipul Downey MD 11/22/2023 documented in this encounter Plan of Treatment Upcoming Encounters Date Type Department Care Team (Late st Contact Info) Description 03/20/2024 10:50 AM EDT [facility] [place] [address] [facility] [id number] Luz Maria Gama, DO [address] [place] [address] 09/29/2024 1:00 PM EST Office Visit Neurology [facility]affe [place] [address] [facility] [address] Jina Hinojosatony Krysta, DO [address] [facility], [place] [id number] Scheduled Orders Name Type Priority Associated Diagnoses Order Schedule MRI BRAIN W WO CONTRAST Medical Imaging Routine Glioblastoma (HCC) Expected: 02/22/2024, Expires: 12/22/2024 MRI NEURO 3-D RECONSTRUCTION Medical Imaging Routine Glioblastoma (HCC) Expected: 02/22/2024, Expires: 12/22/2024 Scheduled Procedures Name Priority Associated Diagnoses Date/Ti [...] Documents on File Type Date Recorded 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 No Code Status History Code Status Date [...] Advance Directives occurred with: Patient Care Teams Character Actress Relationship Specialty Start Date End Date Luz Maria Gama DO [address] [place] [address] PCP - General Family Medicine 01/04/23 documented as of this encounter
--- OUTSIDE RECORDS SUMMARY | 2024-05-06 15:39 | External Medical Summary | Summary of Care ---
Author Name Unknown Organization [facility] Address [address] [facility] [place] [address] Phone [phone] Care Team Providers Care Transitions Rn Care Coordinator Name Role Phone [place] Luz Maria Tiffany DO Primary Care Provider [phone] Reason for Visit * Reason Onset Date Comments [facility]: Screening 11/19/2023 Encounter Details Date Type Department Care Team (Late st Contact Info) Description 11/19/2023 Telephone [facility], [facility] [address] [facility] [place] [address] [facility], Nurse [facility] [address] [facility] [place] [id number] [facility]: Screening Allergies No known active allergiesdocumented as of [...] below 140/90,Ischemic cardiomyopathy,Coron christiane artery disease involving [place] coronary artery of [place] heart without angina pectoris,Dyslipidemi a, goal [...] opioid overdose. Seek medical help immediately. [email or web address] 1 mL 3 11/18/2023 Active Ondansetron 4 [...] suspected opioid overdose. Seek immediate medical attention. https://www.Adonit.com/watch?v=v26c Ohy0HiB 1 Each 3 11/18/2023 Active documented as [...] mRNA, LNP-s, No Pre serve, 2-Dose Series (PitchEngine) 12/02/2020,10/28/2020 Pneumococcal Polysaccharide PPV23 (Pneumovax) Seasonal Influenza, [...] encounter Miscellaneous Notes * Telephone Encounter - Prema Davis LPN - 11/19/2023 10:37 AM EST Remy Lujan was referred as a potential candidate for enrollment for [facility]. A review of this chart was completed and: Remy does not meet criteria for enrollment into [facility]. Referral Source: [facility] Criteria for Ineligibility: Not Located in Service Area Referring care team was notified via : Verbal communication documented in this encounter Plan of Treatment Upcoming Encounters Date Type Department Care Team (Late st Contact Info) Description 03/20/2024 10:50 AM EDT Office Visit [facility] [address] [place] [phone] Luz Maria Gama DO [address] [facility] [place] [address] 09/29/2024 1:00 PM EST Office Visit Neurology [place] [address] [facility] [place] [address] Mariama Hinojosa, DO [address] [place] [address] Scheduled Procedures Name Priority Associated Diagnoses Date/Ti me COLONOSCOPY FLEXIBLE PROXIMA L DIAGNOSTIC Recall Encounter for screening colonoscopy Health Maintenance Due Date Last Done Comments Depression, Most Recent Scor e >= 10 (will fire each visit until score < 10) 01/02/2023 01/01/2023 COVID-19 Vaccine (2022-2 4 season) 2023 06/08/2021, [...] the patient have Health Care Power of Cash Management Associate? No Code Status History Code Status Date [...] Advance Directives occurred with: Patient Care Teams Transitions Rn Care Coordinator Relationship Specialty Start Date End Date Luz Maria Gama DO [address] [place] [address] PCP - General Family Medicine 01/04/23 documented as of this encounter
--- OUTSIDE RECORDS SUMMARY | 2024-05-06 15:39 | External Medical Summary | Summary of Care ---
Author Name Unknown Organization [facility] Address [address] [place] [address] Phone [phone] Care Team Providers Care Director Investment Banking Name Role Phone Luz Maria Gama Primary Care Provider Reason for Visit * Reason Onset Date Comments TRIAGE 11/19/2023 Encounter Details Date Type Department Care Team (Late st Contact Info) Description 11/19/2023 Telephone [facility], [place] [address] [place], [place] [phone] Services, [facility] [address] [place] [address] TRIAGE Allergies No known active allergiesdocumented as [...] below 140/90,Ischemic cardiomyopathy,Aristeo nary artery disease involving [place] coronary artery of [place] heart without angina pectoris,Dyslipidem ia, goal LDL [...] suspected opioid overdose. Seek medical help immediately. [email or web address] 1 mL 3 11/18/2023 Active Ondansetron 4 [...] suspected opioid overdose. Seek immediate medical attention. https://www.TITIN Tech.com/watch?v=v2 4lJnn8OmC 1 Each 3 11/18/2023 Active Morphine Sulfate [...] Herrera LPN - 11/19/2023 2:21 PM EST Jonas Christopher Verified patient's identity by spelling of last [...] asked doesn't our surgeon come up to [place]. I stated no he does not. She stated that coming to [place] on Wednesday is not doable. I messaged [...] email to send the link to is [email or web address]. I also informed her that the email [...] okay to receive radiation and chemo at [facility] as that is about 20 miles [...] message to the pool, update current TE [facility] Neurology Pool- All messages go through the [facility] Neuro Steel Erecting Pusher- [id number] Neurology Pool Numbers- [place] and [place] patients - follow normal process Ops req [facility] ([place])- [id number] Ops req [place] Neurology ([place]- [facility] and [facility] Only)- [id number] Neurosurgery Pool Numbers- [place] patients- follow normal process Ops req Neurosurgery [facility] ([place])- [id number] Ops req Neurosurgery [facility] ([place] Only) [id number] Requested Information from caller: Who is calling (not pt) name: Candi relationship: caregiver Provider patient is established with: brain tumor clinic What is the concern or issue they are having: pt caregiver is asking if appt on 11/21 could be changed to a video because its a 2hr drive for them one way to [place] please advise How long has the issue been going on: n/a Any additional details to add: no phone number for nurse to call back: [phone] Please make sure you verify pharmacy for anything medication related. Form to be used for established patients only (not new patients) documented in this encounter Plan of Treatment Upcoming Encounters Date Type Department Care Team (Late st Contact Info) Description 11/22/2023 9:15 AM EST [facility] [address] [place] [address] Clinic, Brain Tumor Multidisciplinary [address] [place] [address] 03/20/2024 10:50 AM EDT Office Visit [place] [address] [place] [phone] [facility] [address] [place] [address] 09/29/2024 1:00 PM EST Office Visit Neurology [address] [address] Mariama Hinojosa [address] [place] [address] Scheduled Procedures Name Priority Associated Diagnoses Date/Ti [...] the patient have Health Care Power of Healthcare Administration Intern? No Code Status History Code Status Date [...] Advance Directives occurred with: Patient Care Teams Director Investment Banking Relationship Specialty Start Date End Date Luz Maria Gama DO [address] [place] [address] PCP - General Family Medicine 01/04/23 documented as of this encounter
--- OUTSIDE RECORDS SUMMARY | 2024-05-06 15:39 | External Medical Summary | Summary of Care ---
Author Name Unknown Organization [facility] Address [address] [place] [address] Phone [phone] Care Team Providers Care Protective Officer Name Role Phone Luz Maria Gama Primary Care Provider Reason for Visit * Reason Onset Date Comments Medication Question 11/23/2023 Encounter Details Date Type Department Care Team (Late st Contact Info) Description 11/23/2023 Telephone [facility] [place] [address] [place] [address] Louis Souza IV, PA-C [address] [place] [address] Medication Question Allergies No known active allergiesdocumented as of [...] below 140/90,Ischemic cardiomyopathy,Beltrán ry artery disease involving [place] coronary artery of [place] heart without angina pectoris,Dyslipidemia , goal LDL [...] suspected opioid overdose. Seek medical help immediately. [email or web address] 1 mL 3 11/18/2023 Active Ondansetron 4 MG Oral Tablet Disintegrating (Zofran) Place 1 Tablet on tongue every 8 hours as needed for Nausea. Dissolve on tongue. 20 Tablet 0 11/18/2023 Active Naloxone HCl 4 MG/0.1ML Nasal Liquid (Narcan Nasal) Administer 1 spray into 1 nostril for suspected opioid overdose. Seek immediate medical attention. https://www.yout ube.com/watch?v= k42vSzv9RgV 1 Each 3 11/18/2023 Active Morphine Sulfate [...] encounter Miscellaneous Notes * Telephone Encounter - Audelia Castano grocery caddy - 11/23/2023 1:19 PM EST Patient spouse called in today asking for medication that was prescribed by neuro surgery transferred to specialty line Thank you, Audelia Castano Director Of Surgery I [facility] ([facility])(formerly Telepharmacy) 11/23/2023,1:20 PM * Telephone Encounter - Kecia Herbert CPhT - 11/23/2023 1:17 PM EST Pt calling in and said she requested a rx for Morphine tablets, and a rx for Morphine Sulfate 10 MG/5ML Oral Solution was sent in instead. Pt uses [facility] requests high priority. Please advise. Thank you, Kecia Herbert CPht National Service Officer II [facility] Services (CCPS) (formerly Telepharmacy) 11/23/2023, 1:18 PM documented in this encounter Plan of Treatment Upcoming Encounters Date Type Department Care Team (Late st Contact Info) Description 03/20/2024 10:50 AM EDT [facility] [address] [facility] [phone] Luz Maria Gama DO [address] [facility] [address] 09/29/2024 1:00 PM EST Office Visit Neurology [facility] [place] [address] [facility] [place] [address] Mariama Hinojosa, DO [address] [facility] [place] [address] Scheduled Procedures Name Priority Associated Diagnoses Date/Ti [...] Documents on File Type Date Recorded Patient Flange Machine Operator Expl anation Advance Directives and [...] the patient have Health Care Power of Wheel Roller? No Code Status History Code Status Date [...] Advance Directives occurred with: Patient Care Teams Protective Officer Relationship Specialty Start Date End Date Luz Maria Gama DO [address] [facility] [place] [phone] PCP - General Family Medicine 01/04/23 documented as of this encounter
--- OUTSIDE RECORDS SUMMARY | 2024-05-06 15:39 | External Medical Summary | Summary of Care ---
Author Name Unknown Organization [facility] Address [address] [place] [address] Phone [phone] Care Team Providers Care Taxi Proprietor Name Role Phone Luz Maria Gama DO Primary Care Provider Reason for Referral * Evaluate & Treat - Unlimited Visits (Within 3 days (urgent)) - Pending Review Specialty Diagnoses / Procedures Referred By Jerel jackson Referred To Contact Hematology/Oncology / Hematology Oncology Diagnoses Glioblastoma (HCC) Louis Souza IV, PA-C [address] [place] [address] Referral ID Status Reason Start Date Expiration Date Visits Requested Visits Authorized [id number] Pending Review Specialty Services Required 11/19/[phone] Question Answer Referral Priority Within 3 days (urgent) Where should this appointment be scheduled? External - [facility] Reason for Referral Malignant Oncology (Solid Organ Cancer) Comments Newly diagnosed GBM IDH-wild type, WHO grade IV, MGMT pending, EGFR detected. * Evaluate & Treat - Unlimited Visits (Within 3 days (urgent)) - Pending Review Specialty Diagnoses / Procedures Referred By Jerel jackson Referred To Contact Radiation Oncology Diagnoses Glioblastoma (HCC) Louis Souza IV, PA-C [address] [place] [address] Referral ID Status Reason Start Date Expiration Date Visits Requested Visits Authorized [id number] Pending Review Specialty Services Required 11/19/[phone] Question Answer Referral Priority Within 3 days (urgent) Where should this appointment be scheduled? [facility] Comments Newly diagnosed GBM IDH-wild type, WHO grade IV, MGMT pending, EGFR detected. Encounter Details Date Type Department Care Team (Late st Contact Info) Description 11/19/2023 Orders Only Neurosurgery, [place] [address] [place] [address] Louis Souza IV, PA-C [address] [place] [address] Glioblastoma (HCC)* Allergies No known active allergiesdocumented [...] below 140/90,Ischemic cardiomyopathy,Coron christiane artery disease involving [place] coronary artery of [place] heart without angina pectoris,Dyslipidemi a, goal [...] suspected opioid overdose. Seek medical help immediately. [email or web address] 1 mL 3 11/18/2023 Active Ondansetron 4 [...] suspected opioid overdose. Seek immediate medical attention. https://www.Celframe.com/watch?v=v26c Wci9PlD 1 Each 3 11/18/2023 Active documented as [...] as of this encounter Progress Notes * Louis Souza IV, PA-C - 11/19/2023 12:29 PM EST Medical oncology and radiation oncology referrals to outside of network facilities ordered. Louis Souza IV, PA-C documented in this encounter Plan of Treatment Upcoming Encounters Date Type Department Care Team (Late st Contact Info) Description 03/20/2024 10:50 AM EDT Office Visit [facility] [address] [place] [address] Luz Maria Gama, [address] [place] [address] 09/29/2024 1:00 PM EST Office Visit Neurology [facility] [address] [place] [address] Mariama Hinojosa, DO [address] [place], [place] [phone] Scheduled Procedures Name Priority Associated Diagnoses Date/Ti me COLONOSCOPY FLEXIBLE PROXIMA L DIAGNOSTIC Recall Encounter for screening colonoscopy Scheduled Referrals Name Type Priority Associated Diagnoses Orde r Schedule RADIATION/ONCOLOGY REFERRAL OP Referral Within 3 days (urgent) Glioblastoma (HCC) Ordered: 11/19/2023 HEMATOLOGY/ONCOLOGY REFERRAL OP Referral Within 3 days (urgent) Glioblastoma (HCC) Ordered: 11/19/2023 Health Maintenance Due Date Last Done Comments [...] site documented in this encounter Advance Directives Latest Code Status [...] the patient have Health Care Power of High Speed Warper Tender? No Code Status History Code Status [...] Advance Directives occurred with: Patient Care Teams Taxi Proprietor Relationship Specialty Start Date End Date Luz Maria Gama DO [address] [facility] [place] [address] PCP - General Family Medicine 01/04/23 documented as of this encounter
--- OUTSIDE RECORDS SUMMARY | 2024-05-06 15:39 | External Medical Summary | Summary of Care ---
Author Name Unknown Organization [facility] Address [address] [place] [address] Phone [phone] Care Team Providers Care Supervisor Laboratory Name Role Phone Luz Maria Gama Primary Care Provider [phone] Reason for Visit * Reason Onset Date Comments Medication Question 11/23/2023 Encounter Details Date Type Department Care Team (Late st Contact Info) Description 11/23/2023 Telephone [facility] [place] [address] [place] [address] Louis Souza IV, PA-C [address] [place] [address] Medication Question Allergies No known [...] below 140/90,Ischemic cardiomyopathy,Beltrán ry artery disease involving [place] coronary artery of [place] heart without angina pectoris,Dyslipidemia , goal LDL [...] suspected opioid overdose. Seek medical help immediately. [email or web address] 1 mL 3 11/18/2023 Active Ondansetron 4 MG Oral Tablet Disintegrating (Zofran) Place 1 Tablet on tongue every 8 hours as needed for Nausea. Dissolve on tongue. 20 Tablet 0 11/18/2023 Active Naloxone HCl 4 MG/0.1ML Nasal Liquid (Narcan Nasal) Administer 1 spray into 1 nostril for suspected opioid overdose. Seek immediate medical attention. https://www.yout ube.com/watch?v= w68cRjt5AiO 1 Each 3 11/18/2023 Active Morphine Sulfate [...] Notes * Telephone Encounter - Audelia Castano valet parker - 11/23/2023 1:19 PM EST Patient spouse called in today asking for medication that was prescribed by neuro surgery transferred to specialty line Thank you, Audelia Castano Credit Report Checker I [facility] ([facility])(formerly Telepharmacy) 11/23/2023,1:20 PM * Telephone Encounter - Kecia Herbert CPhT - 11/23/2023 1:17 PM EST Pt calling in and said she requested a rx for Morphine tablets, and a rx for Morphine Sulfate 10 MG/5ML Oral Solution was sent in instead. Pt uses [facility] requests high priority. Please advise. Thank you, Kecia eHrbert CPht Upholstered Goods Crafter II [facility] Services ([facility]PS) (formerly Telepharmacy) 11/23/2023, 1:18 PM documented in this encounter Plan of Treatment Upcoming Encounters Date Type Department Care Team (Late st Contact Info) Description 03/20/2024 10:50 AM EDT [facility] Visit [facility] [address] [facility] [phone] Luz Maria Gama DO [address] [facility] [address] 09/29/2024 1:00 PM EST Office Visit Neurology Garry Jaffe [place] [address] [place] [address] Mariama Hinojosa, DO [address] [facility] [place] [address] Scheduled Procedures Name Priority Associated Diagnoses Date/Ti [...] Documents on File Type Date Recorded Patient Coordinate Measuring Equipment Operator Expl anation Advance Directives and Living [...] the patient have Health Care Power of Slat Basket Top Maker? No Code Status History Code Status [...] Advance Directives occurred with: Patient Care Teams Supervisor Laboratory Relationship Specialty Start Date End Date Luz Maria Gama DO [address] [facility] [place] [phone] PCP - General Family Medicine 01/04/23 documented as of this encounter
--- OUTSIDE RECORDS SUMMARY | 2024-05-06 15:40 | External Medical Summary ---
Author Name Unknown Address Unknown Organization K01:LABORATORY [facility] - [facility] [address] [place] [address] Laboratory Report Ordering Provider Test Date Status MANOJ HORTON 11/18/2023 06:04:00 Final Observation Date Value Abnormality Reference (Units ) Status BUN 11/18/2023 06:04:00 25 Above high normal 6-20 (mg/dL) Final Creatinine 11/18/2023 06:04:00 1.1 0.6-1.2 (mg/dL) Final Glomerular filtration rate/1.73 sq M.predicted [Volume Rate/Area] in Serum, Plasma or Blood by Creatinine-based formula (CKD-EPI) 11/18/2023 06:04:00 76 >=60 (mL/min) Final eGFR is calculated based on the CKD-EPI 2020 equation SODIUM 11/18/2023 06:04:00 135 135-146 (m mol/L) Final Potassium 11/18/2023 06:04:00 4.6 3.5-5.1 (m mol/L) Final Cl 11/18/2023 06:04:00 99 98-107 (mm ol/L) Final CO2 11/18/2023 06:04:00 26 22-32 (mmo l/L) Final Anion gap 11/18/2023 06:04:00 10 7-15 (mmol /L) Final Glucose 11/18/2023 06:04:00 111 70-120 (mg /dL) Final Calcium 11/18/2023 06:04:00 9.1 8.4-10.2 ( mg/dL) Final Performing Location LABORATORY [facility] - [address] [place] [address]
--- OUTSIDE RECORDS SUMMARY | 2024-05-06 15:40 | External Medical Summary ---
Author Name Unknown Address Unknown Organization K01:LABORATORY [facility] - [address] [place] [address] Laboratory Report Ordering Provider Test Date Status MANOJ HORTON 11/18/2023 06:04:00 Final Observation Date Value Abnormality Reference (Units ) Status Phosphate 11/18/2023 06:04:00 4.2 2.5-4.8 (m g/dL) Final Performing Location LABORATORY [facility] - [address] [place] [address]
--- OUTSIDE RECORDS SUMMARY | 2024-05-06 15:40 | External Medical Summary ---
Author Name Unknown Address Unknown Organization K01:LABORATORY [facility] [place] - [address] [place] [address] Laboratory Report Ordering Provider Test Date Status MANOJ HORTON 11/16/2023 08:04:00 Final Observation Date Value Abnormality Reference (Units ) Status BUN 11/16/2023 08:04:00 23 Above high normal 6-20 (mg/dL) Final Creatinine 11/16/2023 08:04:00 1.1 0.6-1.2 (mg/dL) Final Glomerular filtration rate/1.73 sq M.predicted [Volume Rate/Area] in Serum, Plasma or Blood by Creatinine-based formula (CKD-EPI) 11/16/2023 08:04:00 75 >=60 (mL/min) Final eGFR is calculated based on the CKD-EPI 2020 equation SODIUM 11/16/2023 08:04:00 136 135-146 (m mol/L) Final Potassium 11/16/2023 08:04:00 4.8 3.5-5.1 (m mol/L) Final Cl 11/16/2023 08:04:00 99 98-107 (mm ol/L) Final CO2 11/16/2023 08:04:00 26 22-32 (mmo l/L) Final Anion gap 11/16/2023 08:04:00 11 7-15 (mmol /L) Final Glucose 11/16/2023 08:04:00 102 70-120 (mg /dL) Final Calcium 11/16/2023 08:04:00 9.3 8.4-10.2 ( mg/dL) Final Performing Location LABORATORY [facility] - [address] [place] [address]
--- OUTSIDE RECORDS SUMMARY | 2024-05-06 15:40 | External Medical Summary ---
Author Name Unknown Address Unknown Organization K01:[facility] [place] [address] [place] [address] Laboratory Report Ordering Provider Test Date Status MANOJ HORTON 11/17/2023 06:27:00 Final Observation Date Value Abnormality Reference (Units ) Status BUN 11/17/2023 06:27:00 25 Above high normal 6-20 (mg/dL) Final Creatinine 11/17/2023 06:27:00 1.2 0.6-1.2 (mg/dL) Final Glomerular filtration rate/1.73 sq M.predicted [Volume Rate/Area] in Serum, Plasma or Blood by Creatinine-based formula (CKD-EPI) 11/17/2023 06:27:00 69 >=60 (mL/min) Final eGFR is calculated based on the CKD-EPI 2020 equation SODIUM 11/17/2023 06:27:00 138 135-146 (m mol/L) Final Potassium 11/17/2023 06:27:00 4.8 3.5-5.1 (m mol/L) Final Cl 11/17/2023 06:27:00 101 98-107 (mm ol/L) Final CO2 11/17/2023 06:27:00 27 22-32 (mmo l/L) Final Anion gap 11/17/2023 06:27:00 10 7-15 (mmol /L) Final Glucose 11/17/2023 06:27:00 110 70-120 (mg /dL) Final Calcium 11/17/2023 06:27:00 9.3 8.4-10.2 ( mg/dL) Final Performing Location [facility] [place] [address] [place] [address]
--- OUTSIDE RECORDS SUMMARY | 2024-05-06 15:40 | External Medical Summary | Summary of Care ---
Author Name Unknown Organization [facility] Address [address] [place] [address] Phone [phone] Care Team Providers Care Cleaner And Dyer Name Role Phone Luz Maria Gama DO Primary Care Provider Encounter Details Date Type Department Care Team (Late st Contact Info) Description 11/05/2023 Telephone Located Within [facility] [address] [place] [address] Luz Maria Gama DO [address] [place] [address] Allergies No known active allergiesdocumented as of this encounter (statuses as of 11/16/2023) Medications Medication Sig Dispensed Refills Start Date End Date Status aspirin 81 MG chewable tablet Take 1 Tab by mouth daily. 30 Tab 11 08/17/2015 Suspended Additional Information nitroglycerin (NITROSTAT) 0.[address] 1 Tab under the tongue every 5 minutes as needed for Pain, Chest. 90 Tab 12 08/17/2015 Suspended Additional Information buPROPion HCl ER (SR) 150 MG Oral Tablet Extended Release 12 Hour (Wellbutrin SR)Indications:Adju stment disorder with depressed mood Take 1 tab by mouth twice per day 180 Tablet 1 06/24/2023 Suspended Additional Information Metoprolol Succinate ER 25 MG Oral Tablet Extended Release 24 Hour (toPROL XL)Indications:HTN, goal below 140/90,Ischemic cardiomyopathy,Aristeo nary artery disease involving port lions coronary artery of port lions heart without angina pectoris,Dyslipidem ia, goal LDL below 100,Essential hypertension with goal blood pressure less than 140/90 Take 1 Tablet by mouth in the morning. 90 Tablet 0 06/24/2023 Suspended Additional Information Doxycycline Monohydrate 50 MG Oral CapsuleIndications: Rosacea Take 1 capsule by mouth once daily 90 Capsule 1 06/24/2023 Suspended Additional Information Ondansetron 4 MG Oral Tablet Disintegrating (Zofran) Place 1 Tablet on tongue every 8 hours as needed for Nausea. dissolve on tongue. 30 Tablet 1 08/20/2023 Suspended Additional Information Lisinopril 20 MG Oral Tablet (Prinivil)Indicatio ns:HTN, goal below 140/90 Take 1 Tablet by mouth in the morning. 90 Tablet 3 11/04/2023 Suspended Additional Information documented as of this encounter (statuses as of 11/16/2023) Active Problems Problem Noted Date Diagnosed Date Palliative care encounter 11/12/2023 Goals of care, [...] Adjustment disorder with depressed mood 04/23/20 16 Venous insufficiency 04/23/2016 HTN, goal below 140/90 03/02/2016 Overview: Per HTN Protocol Coronary artery disease without angina pectoris 08/30/2015 Overview: One vessel PCI - BMS to CX OM3 on 08/16/2015 Former smoker 08/17/2015 Rosacea 01/10/2014 documented as of this encounter (statuses as of 11/16/2023) Resolved Problems Problem Noted Date Diagnosed Date Resolved Date Bradycardia, sinus 01/21/2023 Body mass index (BMI) of 45. 0 to 49.9 in adult 07/29/2020 11/04/2020 Overview: Per Obesity protocol - Body mass index (BMI) of 40. 0 to 44.9 in adult 06/21/2017 08/01/2020 Overview: Per Obesity protocol #1 Testicular hypogonadism 09/24/2015 08/ HTN (hypertension) 08/17/2015 6 Overview: Per HTN Protocol NSTEMI (non-ST elevated myoc ardial infarction) 08/16/2015 08/17/2015 documented as of this encounter (statuses as of 11/16/2023) Immunizations Name Administration Dates Next Due COVID-19 [...] encounter Miscellaneous Notes * Telephone Encounter - Donna Almonte OSA - 11/16/2023 11:12 AM EST Spoke to patient's and she stated that Remy is currently in [facility] dealing with a Brain Tumor that he was diagnosed with on . She stated that is their priority at this time. 11/16/2023 * Telephone Encounter - Donna Almonte OSA - 11/11/2023 10:47 AM EST LMOM. 11/11/2023 * Telephone Encounter - Donna Almonte OSA - 11/05/2023 2:35 PM EST MyG message sent. 11/05/2023 * Telephone Encounter - Luz Maria Gama DO - 11/05/2023 1:40 PM EST Chol is very high still, needs to see lipid clinic, referral placed yesterday Make sure he gets an appt documented in this encounter Plan of Treatment Upcoming Encounters Date Type Department Care Team (Late st Contact Info) Description 11/22/2023 10:45 AM EST [facility] [address], [place] [id number] Clinic, Brain Tumor Multidisciplinary [address], [place] [id number] 03/20/2024 10:50 AM EDT Office Visit Located Within [facility] [address] [place] [phone] Luz Maria Gama DO [address], [place] [phone] 09/29/2024 1:00 PM EST Office Visit Neurology [facility] [address] [place] [address] Mariama Hinojosa [address] [place] [address] Scheduled Procedures Name Priority Associated Diagnoses Date/Ti me COLONOSCOPY FLEXIBLE PROXIMA L DIAGNOSTIC Recall Encounter for screening colonoscopy Health Maintenance Due Date Last Done Comments Hepatitis B (1 of 3 - 19+ 3-dose series) 1984 Cologuard 2010 Fecal Occult Blood Test 2010 Sigmoidoscopy 2010 LUNG CANCER SCREENING - USE SMARTSET 34218 2015 Pneumococcal Vaccine: Pediatrics (0 to 5 Years) and At-Risk Patients (6 to 64 Years) (2 of 2 - PCV) 06/16/2018 06/16/2017 Depression, Most Recent Score >= 10 (will fire each visit until score < 10) 01/02/2023 01/01/2023 COVID-19 Vaccine ( season) 2023 06/08/2021, 12/02/2020, 10/28/2020 Influenza Vaccine (FLU shot) (#1) 2023 07/03/2020, 06/30/2018 Colonoscopy 09/01/2026 09/01/2016, 09/01/2016 Colorectal Cancer Screening 09/01/2026 Diabetes Screening 11/16/2026 11/16/2023, 0 11/15/2023, 11/14/2023, Additional history exists DTaP,Tdap,and Td Vaccines (2 - Td or Tdap) 12/25/2027 12/24/2017 Albumin/Creatinine Ratio Discontinued 01/10/2019 Zoster Vaccines Completed 05/19/2021, 07/03/2020 GARDASIL-HPV IMMUNIZATION SERIES Aged Out No longer eligible based on patient's age to complete this topic MENINGOCOCCAL (MENACTRA/MENVEO) Aged Out No longer eligible based on patient's age to complete this topic documented as of this encounter Medical Devices Not on filedocumented as of this encounter Advance Directives Latest Code Status on File Code Status Date Activated Date Inactivated Comments Full Code 11/10/2023 3:44 PM This order reflects the patients wishes and were consensually agreed upon. Question Answer Comments Discussion of Advance Directives occurred with: Not Discussed due to patient's condition Does the patient have a Living Will? No Does the patient have Health Care Power of [employer]? No Code Status History Code Status Date [...] Advance Directives occurred with: Patient Care Teams Cleaner And Dyer Relationship Specialty Start Date End Date Luz Maria Gama DO [address] [id number] PCP - General Family Medicine 01/04/23 documented as of this encounter
--- OUTSIDE RECORDS SUMMARY | 2024-05-06 15:40 | External Medical Summary ---
Author Name Unknown Address Unknown Organization [id number]:[facility] [address] [place] [id number] Laboratory Report Ordering Provider Test Date Status MANOJ HORTON 11/17/2023 06:27:00 Final Observation Date Value Abnormality Reference (Units ) Status Magnesium 11/17/2023 06:27:00 2.3 1.5-2.6 (m g/dL) Final Performing Location [facility] [address] [place] [id number]
--- OUTSIDE RECORDS SUMMARY | 2024-05-06 15:40 | External Medical Summary | Summary of Care ---
Author Name Unknown Organization [facility] Address [address] [place] [address] Phone [phone] Care Team Providers Care Paint Spray Tender Name Role Phone Socratesjuan Nicole Tiffany DO Primary Care Provider [phone] Reason for Referral * Evaluate & Treat - Unlimited Visits (Within 3 days (urgent)) - Pending Review Specialty Diagnoses / Procedures Referred By Jerel jackson Referred To Contact HOME CARE / Home Care Diagnoses Brain mass Carrie Adame, DO [address] [facility] [place] [address] Referral ID Status Reason Start Date Expiration Date Visits Requested Visits Authorized [id number] Pending Review Specialty Services Required 11/18/2023 999 [id number] Question Answer Referral Priority Within 3 days (urgent) Where should this appointment be scheduled? Angelia Comments Documentation of Jdwp-al-Suzk Encounter Addendum Patient Name: Remy Lujan I certify that this patient is under my care and that I, or a nurse practitioner or physician's architectural administrative assistant working with me, had a kohm-ep-qala encounter that meets the physician bltp-pv-[id number] encounter requirements with this patient on: The encounter with the patient was in whole, or in part, for the following medical condition, which is the primary reason for home health care (List medical condition): ADL dysfunction, needs speech, PT, OT I certify that, based on my findings, the following services are medically necessary home health services: Nursing, Physical Therapy, and Speech Language Pathology Primary Care Physician to follow home care plan of care after discharge: yes My clinical findings support the need for the above services because: newly diagnosed glioblastoma Further, I certify that my clinical findings support that this patient is homebound (i.e. Absences from home require considerable and taxing effort and are for medical reasons or evangelical services or infrequently or of short duration when for other reason) because: Newly diagnosed glioblastoma Physician Signature: Date of Signature: Physician Printed Name: Carrie Adame DO Discharge Order Reason for Visit * Auth/Cert Specialty Diagnoses / Procedures Referred By Jerel jackson Referred To Contact Diagnoses Brain tumor (HCC) Brain lesion New brain tumor glioblastoma difficulty reading, headaches Referral ID Status Reason Start Date Expiration Date Visits Re quested Visits Authorized [id number] Encounter Details Date Type Department Care Team (Latest Contact Info) Description 11/05/2023 10:12 PM EST - 11/18/2023 2:36 PM EST Hospital Encounter [id number] [place] [facility] [address] [place] [address] Jann Phipps MD [address] [facility] [place], [place] Axel Lazo MD [address] [facility] [place] [address] Ryan Bonilla DO [address] [place] [address] Jude Regan MD [address] [place] [address] Carrie Adame, DO [address] [facility] [place] [address] Pt Handout (on AVS) Discharge Disposition: Home - Self Care Allergies No known active allergiesdocumented as of [...] below 140/90,Ischemic cardiomyopathy,Cor onary artery disease involving igiugig coronary artery of igiugig heart without angina pectoris,Dyslipide kavon, goal LDL below 100,Essential hypertension with goal blood pressure less than 140/90 Take 1 Tablet by mouth in the morning. 90 Tablet 0 3 Active Doxycycline Monohydrate 50 MG Oral CapsuleIndications :Rosacea Take 1 capsule by mouth once daily 90 Capsule 1 3 Active Lisinopril 20 MG Oral Tablet (Prinivil)Indicati ons:HTN, goal below 140/90 Take 1 Tablet by mouth in the morning. 90 Tablet 3 4 Active CPAP every night at bedtime. 0 Active Sennosides 8.6 MG Oral Tablet (Senokot) Take 2 Tablets by mouth in the morning and 2 Tablets before bedtime. 60 Tablet 0 4 Active dexAMETHasone 2 MG Oral Tablet (Decadron) Take 2 Tablets by mouth 2 times a day with morning and evening meals for 1 day, THEN 1 Tablet 2 times a day with morning and evening meals for 3 days. 10 Tablet 0 4 11/22/19 24 Active Famotidine 20 MG Oral Tablet (Pepcid) Take 1 Tablet by mouth in the morning and 1 Tablet before bedtime. 60 Tablet 0 4 Active levETIRAcetam 500 MG Oral Tablet (Keppra)Indication s:Brain tumor (HCC),Brain mass Take 1 Tablet by mouth in the morning and 1 Tablet before bedtime. 60 Tablet 0 4 Active Morphine Sulfate ER 15 MG Oral Tablet Extended Release (Ms Contin) Take 1 Tablet by mouth in the morning and 1 Tablet at noon and 1 Tablet before bedtime. 20 Tablet 0 4 Active Naloxone HCl 0.4 MG/ML Injection Solution (Narcan)Indication s:Brain tumor (HCC),Brain mass Inject 1mL into a large muscle for suspected opioid overdose. Seek medical help immediately. http://Laru Technologiesu.be/ [email or web address] 1 mL 3 4 Active Ondansetron 4 MG Oral Tablet Disintegrating (Zofran) Place 1 Tablet on tongue every 8 hours as needed for Nausea. Dissolve on tongue. 20 Tablet 0 4 Active Morphine Sulfate 10 MG/5ML Oral Solution Take 2.5 mL by mouth every 8 hours as needed for moderate, severe or breakthrough pain. 100 mL 0 4 Active Naloxone HCl 4 MG/0.1ML Nasal Liquid (Narcan Nasal) Administer 1 spray into 1 nostril for suspected opioid overdose. Seek immediate medical attention. https://www.[employer]arma[employer].com/watch?v= u69fPtp5BtP 1 Each 3 4 Active Ondansetron 4 MG Oral Tablet Disintegrating (Zofran) Place 1 Tablet on tongue every 8 hours as needed for Nausea. dissolve on tongue. 30 Tablet 1 3 11/18/19 24 Discontinued Morphine Sulfate 10 MG/5ML Oral Solution Take 2.5 mL by mouth every 4 hours as needed for Pain, Moderate, Pain, Severe or Pain, Breakthrough. 100 mL 0 4 11/18/19 24 Discontinued Morphine Sulfate 10 MG/5ML Oral Solution Take 2.5 mL by mouth every 8 hours as needed for Pain, Moderate, Pain, Severe or Pain, Breakthrough. 100 mL 0 4 11/18/19 24 Discontinued Naloxone HCl 4 MG/0.1ML Nasal Liquid (Narcan Nasal) Administer 1 spray into 1 nostril for suspected opioid overdose. Seek immediate medical attention. https://www.[employer]arma[employer].com/watch?v= w61vGqh9XxE 1 Each 3 4 11/18/19 24 Discontinued Naloxone HCl 4 MG/0.1ML Nasal Liquid (Narcan Nasal) Administer 1 spray into 1 nostril for suspected opioid overdose. Seek immediate medical attention. https://www.[employer]arma[employer].com/watch?v= [email or web address] 1 Each 3 4 11/18/19 24 Discontinued documented as of this encounter [...] mRNA, LNP-s, No Pre serve, 2-Dose Series (Munetrix) 12/02/2020,10/28/2020 Pneumococcal Polysaccharide PPV23 (Pneumovax) Seasonal Influenza, [...] Sign Reading Time Taken Comments Blood Pressure 155/81 11/18/2023 10:04 AM EST Pulse 53 11/18/2023 10:04 AM EST Temperature 36 C (96.8 F) 11/18/2023 10: 04 AM EST Respiratory Rate 18 11/18/2023 10:0 4 AM EST Oxygen Saturation 97% 11/18/2023 10: 04 AM EST Inhaled Oxygen Concentration - - Weight 145.4 kg (320 lb 9.6 oz) 11/18/2023 2:22 AM EST Height 188 cm (6' 2") 11/05/2023 10:12 PM EST Body Mass Index 41.16 11/05/2023 10:12 PM EST documented in this [...] No 11/05/2023 documented as of this encounter Discharge Summaries * Carrie Adame DO - 11/18/2023 10:20 AM EST Images from the original note were not included. [address] [address] Admission Date: 11/05/2023 Discharge Date: 11/18/2023 RECOMMENDED TO DO FOR NEXT PROVIDER(S): Ensure follow up with palliative, oncology, neurosurgery for further management of newly diagnosed glioblastoma REASON(S) FOR MEDICATION CHANGE(S): Please START taking the following medications - Morphine extended release 15 mg every 8 hours - Morphine immediate release liquid solution 5 mg every 8 hours as needed for moderate/severe pain - Tylenol around the clock for pain - Dexamethasone 4 mg twice daily for one day then 2 mg twice daily for 3 days - Pepcid to protect your stomach while you are on steroids (dexamethasone) - Keppra to prevent seizures until neurosurgery follow up - Senna to prevent constipation DISPOSITION ON DISCHARGE: home with health services Active Hospital Problems Diagnosis *Principal Diagnosis - Brain tumor (HCC) Palliative care encounter Goals of care, counseling/discussion Cancer related pain Nonintractable headache Postoperative pain Decreased appetite Therapeutic opioid-induced constipation (OIC) Word finding difficulty Agitation Brain mass ALEKSANDR (obstructive sleep apnea) Class 3 severe obesity due to excess calories with serious comorbidity and body mass index (BMI) of40.0 to 44.9 in adult (HCC) Dyslipidemia, goal LDL below 100 HTN, goal below 140/90 Coronary artery disease without angina pectoris Resolved Hospital Problems Diagnosis Date Resolved Venous insufficiency 11/18/2023 ADMISSION HISTORY & PHYSICAL EXAM (focused): PRESENTING PROBLEM: MRI with "Findings concerning for high-grade ADDICTION NURSE tumor centered in the left temporal-occipital junction, probably glioblastoma " HPI: Remy Lujan is a 58 year old male with hypertension, CAD, Dyslipidemia, ALEKSANDR, Ischemic cardiomyopathy presents as a transfer from [facility] as Imaging showed a new brain tumor on MRI from 11/05/2023. Onset around , patient states he had started taking Wegovy when he noticed that he was beginning to have issues with reading/comprehension, he endorses he thought this was initially just a side effect of the medication howeverin September he noted that he can not read, assessments show he can see the letters but does not appear to be processing words. Also endorses chronic headache over the last 2 months that he typically treats with OTC Tylenol or Motrin. Denies fever, chills, facial droop, stuttering, drooling, cough, dysuria, hematuria, abdominal pain, nausea, vomiting, diarrhea, CP, SOB, melena or other associated symptoms. BP: 142 mmHg/85 mmHg (11/05/232211) Pulse: 101 (11/05/232211) Temp: 36.39 C (11/05/232211) Temp Summary: Temp Min: 36.4 C (97.5 F) Max: 36.4 C (97.5 F) SpO2: 94 % (11/05/232211) O2 flow rate: Supplemental O2 Delivery: Room Air, None (11/05/232229) Constitutional: No Apparent distress obese HEENT: normocephalic, atraumatic; no masses, tenderness, or adenopathy Eyes: PERRLA, sclera and conjunctiva normal Neck: supple, normal range of motion CV: Tachycardia and Normal Rhythm, no murmur, gallops or rub Chest: normal respiratory effort, lungs clear to auscultation Abdomen: normal: soft, bowel sounds normal, no masses, tenderness or organomegaly Musculoskeletal: (-) negative Extremities: no clubbing, cyanosis, or edema, otherwise grossly normal, warm, and dry Skin: warm, dry, intact: Neuro: alert, oriented to person, place, and time, normal mental status exam Psych: normal mood and affect, nonsuicidal, judgement normal, memory normal HOSPITAL COURSE (focused): Patient [place] [facility] [place] further evaluation of high grade ADDICTION NURSE tumor in left temporal occipital junction. He was evaluated by neurosurgery and underwent left temporal craniotomy for tumor resection. He tolerated the procedure without complication. Pathology resulted with glioblastoma. He will follow with Palliative medicine, neurosurgery, radiation oncology, and oncology outpatient. He will continue speech therapy outpatient. Day of d/c exam BP 155/81 | Pulse 53 | Temp 36 C (96.8 F) (Tympanic) | Resp 18 | Ht 1.88 m (6' 2") | Wt (!) 145.4 kg (320 lb 9.6 oz) | SpO2 97% | BMI 41.16 kg/m | BSA 2.76 m General: Appears stated age, no acute distress, well developed, well nourished Head: Atraumatic, normocephalic Eyes: no excessive tearing, conjunctiva pink, sclera white Neck: Supple, full ROM Cardiovascular: RRR, no murmurs appreciated Respiratory: CTAB no wheezes, rales, ronchi Abdomen: Soft NT to palpation, no masses appreciated, bowel sounds present MSK: no LE edema b/l Psych: Pleasant, conversational Neuro: expressive aphasia noted, improving from previous exam, moving ue/le equally b/l Skin: well healing suture sites CT C/a/p IMPRESSION No evidence malignancy or metastases in the chest, abdomen, or pelvis. MRI brain IMPRESSION Localizing exam demonstrating large mass in the left temporoparietal junction, 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. MRI brain: IMPRESSION 1. Expected postoperative changes following left temporal lobe tumor resection with mild residual tumor involving the resection cavity margins, multicentric left parietal enhancement/satellite lesions, and subependymal tumor spread. 2. Stable incidental small right frontal convexity meningioma. Operations & Procedures: left temporal craniotomy for tumor resection; use of brainlab stereotactic neuronavigation; use of the ultrasound with self interpretation; use of neurophysiological monitoring (SSEP/MEP/subcortical stimulation) Complications: none significant Significant Lab and Imaging Results: As mentioned above Results Pending at Discharge: Lab Results Pending at Discharge: MGMT PROMOTER METHYLATION ANALYSIS Routine CBC Routine PT INR Routine BASIC METABOLIC PANEL Routine MAGNESIUM Routine PHOSPHORUS Routine MEDICATION UPDATES AT DISCHARGE START taking these medications INSTRUCTIONS dexAMETHasone 2 MG Tabs Tablet Commonly known as: Decadron Start taking on: November 18, 2023 Take 2 Tablets by mouth 2 times a day with morning and evening meals for 1 day, THEN 1 Tablet 2 times a day with morning and evening meals for 3 days. Famotidine 20 MG Tablet Commonly known as: Pepcid Take 1 Tablet by mouth in the morning and 1 Tablet before bedtime. levETIRAcetam 500 MG Tablet Commonly known as: Keppra Take 1 Tablet by mouth in the morning and 1 Tablet before bedtime. * morphine Sulfate ER 15 MG Tbcr Tablet Commonly known as: Ms Contin Take 1 Tablet by mouth in the morning and 1 Tablet at noon and 1 Tablet before bedtime. * morphine sulfate 10 MG/5 ML solution Take 2.5 mL by mouth every 8 hours as needed for Pain, Moderate, Pain, Severe or Pain, Breakthrough. * naloxone 0.4 MG/ML Soln Commonly known as: Narcan Inject 1mL into a large muscle for suspected opioid overdose. Seek medical help immediately. http://youtu.be/-[email or web address] * naloxone 4 MG/0.1ML Liqd Commonly known as: Narcan Nasal Administer 1 spray into 1 nostril for suspected opioid overdose. Seek immediate medical attention. https://www.youtube.com/watch?v=q18wCni4DtN senna Tablet Commonly known as: Senokot Take 2 Tablets by mouth in the morning and 2 Tablets before bedtime. * This list has 4 medication(s) that are the same as other medications prescribed for you. Read thedirections carefully, and ask your doctor or other care provider to review them with you. CHANGE how you take these medications INSTRUCTIONS ondansetron ODT 4 MG Tbdp Commonly known as: Zofran What changed: additional instructions Place 1 Tablet on tongue every 8 hours as needed for Nausea. Dissolve on tongue. CONTINUE taking these medications INSTRUCTIONS aspirin 81 MG chewable tablet Take 1 Tab by mouth daily. buPROPion extended release (SR) 150 MG Tb12 Commonly known as: Wellbutrin SR Take 1 tab by mouth twice per day CPAP every night at bedtime. Doxycycline Monohydrate 50 MG Caps Take 1 capsule by mouth once daily Lisinopril 20 MG Tablet Commonly known as: Prinivil Take 1 Tablet by mouth in the morning. metoprolol succinate XL 25 MG Tb24 Commonly known as: toPROL XL Take 1 Tablet by mouth in the morning. Nitroglycerin 0.4 MG Subl Commonly known as: Nitrostat Place 1 Tab under the tongue every 5 minutes as needed for Pain, Chest. SCHEDULED FOLLOW-UP: Future Appointments Appt Date/Time Provider Department 11/22/2023 10:45 AM [facility] 10:50 AM Nicole Gramajo DO [facility] 09/29/2024 1:00 PM Mariama Hinojosa DO Neurology [facility] Outpatient Follow Up Home Health Referral OP Other Information Indwelling Devices: LINES ALL Duration Peripheral Line Left;Right 8 days Vital Signs (last recorded): Most Recent Systolic BP: 155 mmHg (11/18/23 1004) Most Recent Diastolic BP: 81 mmHg (11/18/23 1004) Pulse: 53 (11/18/23 1004) Resp: 18 (11/18/23 1004) Most Recent Temperature: 36 C (11/18/23 1004) Weight: (!) 145.4 kg (320 lb 9.6 oz) (11/18/23221) SpO2: 97 % (11/18/23 1004) O2 flow rate: 0 L/MIN (11/18/23221) Allergies: Patient has no known allergies. Activity: as tolerated Diet: regular Code Status: Full Code Condition on Discharge: stable Isolation status: None Cognition: intact with some aphasia HOSPITAL CONSULTS ORDERED: ONCOLOGY CONSULT IP NEUROSURGERY CONSULT IP RADIATION ONCOLOGY CONSULT IP ADULT PHYSICAL THERAPY CONSULT IP ADULT OCCUPATIONAL THERAPY CONSULT IP ADULT SPEECH THERAPY CONSULT IP (ACUTE CARE REHAB) ADULT PHYSICAL THERAPY CONSULT IP ADULT OCCUPATIONAL THERAPY CONSULT IP PALLIATIVE MEDICINE CONSULT IP REFERRING PHYSICIAN: Ref: HONEY VANCE[[id number]] [address] [place] [address] (office) [phone] (fax) PRIMARY CARE PROVIDER: PCP: Nicole Gramajo DO [address] [facility] [address] (office) [phone] (fax) Note: To contact a physician responsible for this patients hospital care, please call [facility] [phone]. I certify this patient is confined to the home and needs intermittent group home care, physical therapy and/or speech therapy, or continues to need occupational therapy. The patient is under my care and I have authorized services on this plan of care. The clinical findings of decrease in functional mobility secondary to decreased strength, decreased balance, and decreased endurance due to recent hospitalization and overall medical condition support the need for home health, and the patientdemonstrates a considerable and taxing effort when attempting to leave the home. The patient had a tpxu-dj-cusj encounter with an allowed provider type on 11/18/2023 and the encounter was related to the primary reason for home health care. Under situations in which I am an acute/post acute facility physician who will not be following the patient's plan of care, I authorized services on this plan of care and I transfer the patient for plan of care certification to the primary care physician kevyn who will follow the patient and update the plan of care. Primary care physician Nicole Gramajo DO I spent a total of 45 minutes coordinating, documenting, and providing care for this patient excluding time spent in the performance of separately billed services. documented in this encounter Discharge Instructions * Discharge Instr - AVS* Donna Tolliver PA-C - 11/18/2023 10:38 AM EST Discharge Date: 11/18/2023 The information below provides you with the instructions and the list of medications you need to betaking following discharge from the hospital. If you have any questions, please ask before leaving. If you have questions after leaving, you can reach us at the numbers below. YOUR HOSPITAL PROVIDERS: Discharging Provider: Carrie Adame DO Provider Department: Hospital Medicine To reach this Provider Wednesday through Wednesday (8:00 AM to 4:30 PM) for any questions or test results: Call [phone] For after-hours concerns: Call [phone] and have your provider paged, or the provider quality control director for the Department of Hospital Medicine paged. Please note, the discharging provider will not be able to provide you with any medications refills.Please discuss these with your primary care provider. Worsening Symptoms: If you have new symptoms, or your symptoms get worse, please contact your Discharge Provider or Primary Care Provider (PCP). If these providers are not available, you can go to your local [facility] or Urgent Care Clinic during their business hours. In an EMERGENCY situation: Call [phone] or go to the nearest emergency room. A BRIEF SUMMARY OF YOUR HOSPITAL STAY: You came to the hospital with: a brain tumor that was discovered at [facility]. You underwent left temporal craniotomy for tumor resection. You will continue to follow up with neurosurgery, palliative care, oncology, and radiation oncology to determine the next steps in your treatment. Your main diagnosis at discharge was: glioblastoma Inpatient test results that are pending at discharge: Yes. You or your doctor will be contacted if there are significant abnormalities with these tests. Advance Directive Documented: Advance Directive Does the Patient have an Advance Directive? No YOUR FOLLOW UP APPOINTMENTS: Primary Care Provider Information: PCP: Nicole Gramajo DO [facility] [address] [place] [address] (office) [phone] (fax) An appointment was requested with your PCP (Nicole Gramajo DO) within 3 days. (Please take this form to this visit with your primary care physician.) You need the following studies in the future: BMP: date - before PCP follow up and CBC: date - before PCP follow up INSTRUCTIONS: Diet: Normal diet Activity: As tolerated Additional Instructions: - Call your primary care physician or seek medical attention if you develop fevers, chills, confusion, chest pain, seizures. Please START taking the following medications - Morphine extended release 15 mg every 8 hours - Morphine immediate release liquid solution 5 mg every 8 hours as needed for moderate/severe pain - Tylenol around the clock for pain - Dexamethasone 4 mg twice daily for one day then 2 mg twice daily for 3 days - Pepcid to protect your stomach while you are on steroids (dexamethasone) - Keppra to prevent seizures, your neurosurgeon will tell you if/when to stop this medication. - Senna to prevent constipation Please continue taking all other medications as previously prescribed. Your PCP will need to refill your pain medications. DISCHARGE INSTRUCTIONS POSTOPERATIVELY (NEUROSURGERY) 11/10/23-left temporal craniotomy for tumor resection with Dr. Ornelas Hygiene Keep the incision clean, dry and open to the air. The joyce or sutures may be removed in approximately 10-14 days. Some sutures will not need to be removed. Do not place anything constrictive directly over the incision line (islam piece of eyeglasses, elastic bands etc.) You may shower after your second post-operative day. Avoid prolonged soaking, aggressive scrubbing or rubbing for about 3 weeks. Do not sit in a tub of water and submerge the incision. Pat the incision dry after showering. Itching or burning are normal healing symptoms. Do not apply any creams, powders or oils near the incision. Avoid perms, dyes or bleaching of hair for about 4 weeks after surgery. A small collection of fluid may develop underneath the skin near the incision. This is not uncommon and is usually reabsorbed in time. The swelling tends to be worse in the A.M. and will fluctuate throughout the day. To keep swelling to a minimum: sleep with the head elevated on several pillows keep active and out of bed throughout the day Diet Same as before your surgery. Activities No heavy lifting (greater than 5-10 pounds). No strenuous activities. Avoid any activity that requires you to bend at your waist. Instead, bend at your knees. If you bend at the waist, it may cause too much pressure to the surgical area. Also, avoid activities which require you to hold your breath. You should take a walk every day, weather permitting. Start with a 5 minute walk and gradually increase the length as you are able to tolerate. Sexual relations are permissible, but not too vigorous. Avoid heavy house and garden work (lifting laundry, digging, shoveling etc.) Avoid driving or returning to work for 6-12 weeks, or until told by your surgeon that it is okay todo either. You may go up and down stairs as tolerated. Use the railing when doing so as a precaution. Medication Medication had been prescribed for you to help to relieve your pain. If you need it, use it. If youhave no pain, it is not necessary to take the medication. Hgqd-lrs-qsmbxpa medications may be taken for minor pain (Tylenol, Advil etc.) Headaches are common and expected after a craniotomy. They should be relieved by the pain medication and should not get progressively or suddenly worse after discharge. Some pain medication may cause constipation. The use of [id number] laxatives is safe (Ex-lax, Correctol, Colace, Milk of Magnesia). See the hospital discharge form regarding additional medication instructions. When to call the Neurosurgeons office: Please call your surgeons office at [phone] if you notice any of the following symptoms: Redness, swelling, tenderness or any type of drainage from your incision. If the fluid collection underneath the skin near the incision persists longer than 2 weeks or if there is a sudden and significant increase in size of the collection. Excessive sleeping, confusion or vomiting for long periods of time. Headaches which persist in spite of pain medication or suddenly become worse in intensity. Any change in sensation or strength in your arms or legs. Body temperature over 100O F for more than 2 days. 7. If you or your family feels that you are not doing well. Follow-up: Instructions for your first post-operative appointment are either given to you on your hospital discharge form or they will be mailed to you soon. If you do not hear from my office within a week, please contact me for follow-up arrangements. If you have any specific questions not covered in these instructions, please feel free to call the office and check with the doctor or physician architectural administrative assistant. If you have an urgent question/issue after normal business hours, please call the office number andask for the neurosurgeon quality control director. Please follow up with neurosurgery on 11/22/23 at 10:45 am in the [facility] tumor clinic * Care [facility] Instr - AVS* Salome Hampton RN - 11/18/2023 12:07 PM EST Patient Care Team: Morena Díaz, NOA as Final Touch Up Painter (Registered Nurse) [facility] Home Health will contact you directly for details of start of care. Please use resources of private pay agencies, Steps to Apply for Waiver Services that was give by Case Management. For additional resources, please call your critical access hospital Aging Office. documented in this encounter Progress Notes * Adela Mendoza CRNP - 11/18/2023 12:02 PM EST PROGRESS NOTE - Palliative Medicine [facility] [address] Name: Remy Lujan Location: [facility] A471/A Date: 11/18/2023 Time: 12:02 PM SUBJECTIVE: Patient seen and chart reviewed. Family present: no Patient evaluated at bedside. Patients pain today - had a rough day yesterday, had increased need for prn morphine. Reports that he was trying to get things organized and sorted. He reports that he will be going home instead of to SNF due to challenges with placement. [place] but states that he will be getting service assistance. Friend candi will transport him to follow-up appointments. He has no concerns today. Will be leaving today when his ride arrives. OBJECTIVE: Most Recent Vital Signs: BP: 155 mmHg/81 mmHg (11/18/23 1004) Pulse: 53 (11/18/23 1004) Temp: 36 C (11/18/23 1004) Temp Summary: Temp Min: 35.7 C (96.3 F) Max: 37 C (98.6 F) SpO2: 97 % (11/18/23 100) O2 flow rate: 0 L/MIN (11/18/23221) Supplemental O2 Delivery: Room Air, None (11/18/231003) Vital Signs Last 24 Hours: Systolic BP: Most Recent Systolic BP Av.3 mmHg Min: 130 mmHg Max: 155 mmHg Temperature: Most Recent Temperature Av.3 C Min: 35.72 C Max: 37 C Pulse: Pulse Av.2 Min: 50 Max: 61 Respirations: Resp Av.8 Min: 16 Max: 19 SpO2: SpO2 Av % Min: 96 % Max: 100 % Physical examination copied from 11/16/2023 with changes noted Constitutional: no acute distress HENT: normocephalic, intact joyce to L temporal region s/p craniotomy - no drainage or wound dehiscence Eyes: anicteric and Sclera and conjunctiva normal Neck: supple Chest: normal respiratory effort Abdominal: non distended Extremities: no clubbing, cyanosis, or edema, otherwise grossly normal, warm, and dry Musculoskeletal: (-) negative: no pain Skin: warm, dry Neuro: alert, oriented to person, place, and time, mild expressive aphasia Psych: calm, cooperative LABS REVIEWED: yes Component Latest Ref Rng 11/18/2023 WBC 4.00 - 10.80 K/uL 12.61 (H) RBC 4.50 - 5.25 M/uL 4.42 HGB 14.0 - 16.8 g/dL 13.9 (L) HCT 40.0 - 48.4 % 41.2 MCV 82.0 - 99.5 fL 93.2 MCH 27.0 - 34.0 pg 31.4 MCHC 32.0 - 36.0 g/dL 33.7 RDW 11.5 - 15.5 % 12.7 PLT 140 - 400 K/uL 283 MPV 6.6 - 11.1 fL 9.4 nRBCs <=0 /100 WBCs 0 BUN 6 - 20 mg/dL 25 (H) Creatinine 0.6 - 1.2 mg/dL 1.1 Estimated Glomerular Filtration Rate >=60 mL/min 76 Sodium 135 - 146 mmol/L 135 Potassium 3.5 - 5.1 mmol/L 4.6 Chloride 98 - 107 mmol/L 99 CO2 22 - 32 mmol/L 26 Anion Gap 7 - 15 mmol/L 10 Glucose 70 - 120 mg/dL 111 Calcium 8.4 - 10.2 mg/dL 9.1 Prothrombin Time 11.6 - 15.2 seconds 14.8 INR 0.8 - 1.2 1.2 Magnesium 1.5 - 2.6 mg/dL 2.2 Phosphorus 2.5 - 4.8 mg/dL 4.2 Legend: (H) High (L) Low IMAGING REVIEWED: no new studies ASSESSMENT/PLAN: Remy Lujan is a/an 58 year old male referred for consultation to Palliative Medicine with the primary diagnosis of: Cancer: Non-Metastatic new L temporal- occipital junction mass concerning for high grade ADDICTION NURSE tumor (glioblastoma) s/p L temporal craniotomy 11/10 Secondary Diagnoses are CAD, ischemic cardiomyopathy, HTN, dyslipidemia, ALEKSANDR, venous insufficiency,adjustment disorder with depressed mood, hx meniere's disease, former smoker Pathology s/p craniotomy - + glioblastoma Palliative Care Encounter Glioblastoma S/p L temporal craniotomy Patient pleasant but remains frustrated over current challenges with communication (expressive aphasia and some ongoing challenges with comprehension), inability to read and manage his medications, current driving restrictions Plan for disposition to home today with referral to [facility] home health agency for ongoing care assistance following HD [facility] follow-up next week following HD Patient lives >2 hours away - patient would benefit for ongoing palliative medicine follow-up following hospita discharge for ongoing pain / symptom management and GOC discussions if indicated. Wediscussed follow-up locations due to where he resides. [place] [facility] - he is agreeable to follow with Palliative medicine [facility] clinic to coincide with neurosurgery follow-up if able. If this changes or becomes challenging can consider follow-up with palliative nearer to his home such as [facility]. I have reviewed with clinic nurse to allow for HD follow-up. Cancer Related Pain / Headache / Pain at surgical site / Postoperative pain Poor Appetite OIC - last BM 11/17 Pain improving with titration to TID ER morphine regimen Recommend to continue medications at below following hospital discharge: Continue ER morphine regimen 15 mg q8h ATC Continue PO morphine liquid solution 5 mg q4h as needed for moderate/severe breakthrough pain Please prescribe naloxone to have at home Continue acetaminophen 975 q8h ATC Continue other medications as recommended by oncology / neurosurgery including anti-epileptic regimen / dexamethasone / famotidine Continue miralax BID Continue senna 2 tablet BID Palliative Medicine will sign off at this time - plan for discharge to home today . Symptoms are stable on current regimen from a palliative perspective. We appreciate the consult. We will plan to follow in the outpatient setting. Thank you for allowing us to participate in the ongoing care of this patient. Please don't hesitate to call or page with any additional concerns. * Carrie Adame DO - 11/17/2023 3:10 PM EST Images from the original note were not included. [facility] A471/A INTERVAL HISTORY: No events overnight. Resting comfortably. Hopeful to be d/c to rehab soon. Denies pain. Objective Physical Exam Most Recent Vital Signs: BP: 130 mmHg/76 mmHg (11/17/23 1406) Pulse: 58 (11/17/23 1406) Temp: 36.72 C (11/17/23 1406) Temp Summary: Temp Min: 36 C (96.8 F) Max: 36.7 C (98.1 F) SpO2: 97 % (11/17/23 1406) O2 flow rate: 0 L/MIN (11/16/23 2222) Supplemental O2 Delivery: Room Air, None (11/17/23 1406) General: Appears stated age, no acute distress, well developed, well nourished Head: Atraumatic, normocephalic Eyes: no excessive tearing, conjunctiva pink, sclera white Neck: Supple, full ROM Cardiovascular: RRR, no murmurs appreciated Respiratory: CTAB no wheezes, rales, ronchi Abdomen: Soft NT to palpation, no masses appreciated, bowel sounds present MSK: Patient ambulates without difficulty, no LE edema b/l Psych: Pleasant, conversational Neuro: expressive aphasia noted Skin: No rashes, abrasions noted Peripheral Line Left;Right (Active) Number of days: 7 STUDIES: Encounter Orders Labs and other studies reviewed with pertinent findings noted below: Reviewed Assessment and Plan IMPRESSION : Principal Problem: Brain tumor (HCC) Active Problems: Coronary artery disease without angina pectoris HTN, goal below 140/90 Dyslipidemia, goal LDL below 100 Venous insufficiency Class 3 severe obesity due to excess calories with serious comorbidity and body mass index (BMI) of40.0 to 44.9 in adult (HCC) ALEKSANDR (obstructive sleep apnea) Brain mass Palliative care encounter Goals of care, counseling/discussion Cancer related pain Nonintractable headache Postoperative pain Decreased appetite Therapeutic opioid-induced constipation (OIC) Word finding difficulty Agitation Resolved Problems: * No resolved hospital problems. * DIFFERENTIAL AND PLAN: 58 yo M w/ PMH s/f HTN, CAD, DLD, ALEKSANDR, s/p L temporal craniotomy for likely high grade glioma Suspected high grade glioma s/p L temporal craniotomy. 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 * Jude Regan MD - 11/16/2023 6:35 PM EST Images from the original note were not included. [facility] A471/A INTERVAL HISTORY: No acute overnight events Patient was seen and evaluated at bedside this morning. Denies any acute concerns and resting comfortably. Rest all other ROS were negative apart from ones mentioned in the HPI Objective Physical Exam Most Recent Vital Signs: BP: 136 mmHg/69 mmHg (11/16/23 1807) Pulse: 78 (11/16/23 1807) Temp: 36 C (11/16/23 1807) Temp Summary: Temp Min: 36 C (96.8 F) Max: 36.6 C (97.9 F) SpO2: 95 % (11/16/231806) O2 flow rate: 0 L/MIN (11/15/23 398) Supplemental O2 Delivery: Room Air, None (11/16/231806) Constitutional: appears stated age, HEENT: surgical wound helathy Neck: supple, CV: Regular rate and rhythm, S1 and S2 present, no murmurs on auscultation. Chest: normal respiratory effort, Clear to auscultation bilaterally, no wheezes, rhonchi, crackles Abdomen: soft, non-tender, Extremities: no edema, Skin: no rash, petechiae, Neuro: Moves all extremities equally, no focal deficits Psych: alert, oriented to person, place, and time, normal mood and affect Peripheral Line Left;Right (Active) Number of days: 6 STUDIES: Encounter Orders Labs and other studies reviewed with pertinent findings noted below: Latest Reference Range & Units 11/15/23 07:20 11/16/23 08:04 Sodium 135 - 146 mmol/L 137 136 Potassium 3.5 - 5.1 mmol/L 4.6 4.8 Chloride 98 - 107 mmol/L 103 99 CO2 22 - 32 mmol/L 24 26 BUN 6 - 20 mg/dL 24 (H) 23 (H) Creatinine 0.6 - 1.2 mg/dL 1.0 1.1 Estimated Glomerular Filtration Rate >=60 mL/min 88 75 Anion Gap 7 - 15 mmol/L 10 11 Glucose 70 - 120 mg/dL 112 102 Calcium 8.4 - 10.2 mg/dL 9.0 9.3 Magnesium 1.5 - 2.6 mg/dL 2.2 2.2 Phosphorus 2.5 - 4.8 mg/dL 4.0 4.3 (H): Data is abnormally high Latest Reference Range & Units 11/15/23 07:19 11/16/23 08:04 WBC 4.00 - 10.80 K/uL 10.16 12.05 (H) HGB 14.0 - 16.8 g/dL 13.3 (L) 13.6 (L) HCT 40.0 - 48.4 % 38.8 (L) 40.8 MCV 82.0 - 99.5 fL 91.9 93.2 PLT 140 - 400 K/uL 271 290 (H): Data is abnormally high (L): Data is abnormally low Assessment and Plan IMPRESSION : Principal Problem: Brain tumor (HCC) Active Problems: Coronary artery disease without angina pectoris HTN, goal below 140/90 Dyslipidemia, goal LDL below 100 Venous insufficiency Class 3 severe obesity due to excess calories with serious comorbidity and body mass index (BMI) of40.0 to 44.9 in adult (HCC) ALEKSANDR (obstructive sleep apnea) Brain mass Palliative care encounter Goals of care, counseling/discussion Cancer related pain Nonintractable headache Postoperative pain Decreased appetite Therapeutic opioid-induced constipation (OIC) Word finding difficulty Agitation Resolved Problems: * No resolved hospital problems. * DIFFERENTIAL AND PLAN: Brain tumour - likely high grade glioma S/P L temporal craniotomy - path c/w Glioblastoma, IDH-wildtype, WHO grade 4 - q4 hours check, SBP goal <160 mmHg - Dex 2 weeks taper - gi ppx while on steroids - keppra until follow up with NSGY - ok for chemical dvt ppx as per nsgy - ok for asa as well - appreciate palliative assistance with pain control - increase Morphine to 15 mg TID, restart Tylenol ATC, bowel regimen - outpatient follow up in neuro [facility], appreciate onc and rad onc consult. 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 ASA resumed as above ALEKSANDR-continue COMPUTER ENGINEERING PROFESSOR CPAP Rosacea-continue COMPUTER ENGINEERING PROFESSOR doxycycline PT OT and awaiting placement PHARMACOLOGIC VTE PROPHYLAXIS: hEParin CODE STATUS: Full Code EXPECTED DISCHARGE DATE: 11/18/2023 Pending placement I spent a total of 40 minutes coordinating, documenting, and providing care for this patient excluding time spent in the performance of separately billed services. * Adela Mendoza CRNP - 11/16/2023 11:06 AM EST PROGRESS NOTE - Palliative Medicine [facility] [address] Name: Remy Lujan [place] [facility] Date: 11/16/2023 Time: 11:06 AM SUBJECTIVE: Patient seen and chart reviewed. Family present: no Patient evaluated at bedside. Patient is having improved pain control today with adjustment of ER morphine from q12 to a8h ATC. His friend Candi present via phone - she is on her way to visit. Patient / friend still very worried about disposition planning as he is unable to drive / read / manage his medications. He remains able to tolerate PO intake without n/v and is moving his bowels. OBJECTIVE: Most Recent Vital Signs: BP: 167 mmHg/86 mmHg (11/16/23 1005) Pulse: 56 (11/16/23 1005) Temp: 36.11 C (11/16/23 1005) Temp Summary: Temp Min: 36.1 C (97 F) Max: 36.8 C (98.2 F) SpO2: 95 % (11/16/23 1005) O2 flow rate: 0 L/MIN (11/15/23 2253) Supplemental O2 Delivery: Room Air, None (11/16/231004) Vital Signs Last 24 Hours: Systolic BP: Most Recent Systolic BP Av.8 mmHg Min: 127 mmHg Max: 167 mmHg Temperature: Most Recent Temperature Av.3 C Min: 36.11 C Max: 36.78 C Pulse: Pulse Av.8 Min: 51 Max: 81 Respirations: Resp Av.2 Min: 18 Max: 19 SpO2: SpO2 Av % Min: 93 % Max: 98 % Physical examination copied from 11/15/2023 with changes noted Constitutional: no acute distress HENT: normocephalic, intact joyce to L temporal region s/p craniotomy - no drainage or wound dehiscence Eyes: anicteric and Sclera and conjunctiva normal Neck: supple Chest: normal respiratory effort Abdominal: non distended Extremities: no clubbing, cyanosis, or edema, otherwise grossly normal, warm, and dry Musculoskeletal: (-) negative: no pain Skin: warm, dry Neuro: alert, oriented to person, place, and time, mild expressive aphasia Psych: calm, cooperative, expresses frustration over challenges with communication and inability toread LABS REVIEWED: yes Component Latest Ref Rng 11/16/2023 WBC 4.00 - 10.80 K/uL 12.05 (H) RBC 4.50 - 5.25 M/uL 4.38 HGB 14.0 - 16.8 g/dL 13.6 (L) HCT 40.0 - 48.4 % 40.8 MCV 82.0 - 99.5 fL 93.2 MCH 27.0 - 34.0 pg 31.1 MCHC 32.0 - 36.0 g/dL 33.3 RDW 11.5 - 15.5 % 12.3 PLT 140 - 400 K/uL 290 MPV 6.6 - 11.1 fL 10.0 nRBCs <=0 /100 WBCs 0 BUN 6 - 20 mg/dL 23 (H) Creatinine 0.6 - 1.2 mg/dL 1.1 Estimated Glomerular Filtration Rate >=60 mL/min 75 Sodium 135 - 146 mmol/L 136 Potassium 3.5 - 5.1 mmol/L 4.8 Chloride 98 - 107 mmol/L 99 CO2 22 - 32 mmol/L 26 Anion Gap 7 - 15 mmol/L 11 Glucose 70 - 120 mg/dL 102 Calcium 8.4 - 10.2 mg/dL 9.3 Prothrombin Time 11.6 - 15.2 seconds 14.9 INR 0.8 - 1.2 1.2 Magnesium 1.5 - 2.6 mg/dL 2.2 Phosphorus 2.5 - 4.8 mg/dL 4.3 Legend: (H) High (L) Low 11/10 cytology inal Diagnosis A. Left temporal tumor, biopsy: Glioblastoma, IDH-wild type, WHO grade 4 B. Left temporal tumor, biopsy: Glioblastoma, IDH-wild type, WHO grade 4 C. Left temporal tumor, Sonopet contents: Glioblastoma, IDH-wild type, WHO grade 4 IMAGING REVIEWED: no new studies ASSESSMENT/PLAN: Remy Cash Tai is a/an 58 year old male referred for consultation to Palliative Medicine with the primary diagnosis of: Cancer: Non-Metastatic new L temporal- occipital junction mass concerning for high grade ADDICTION NURSE tumor (glioblastoma) s/p L temporal craniotomy 11/10 Secondary Diagnoses are CAD, ischemic cardiomyopathy, HTN, dyslipidemia, ALEKSANDR, venous insufficiency,adjustment disorder with depressed mood, hx meniere's disease, former smoker Pathology s/p craniotomy - + glioblastoma Palliative Care Encounter Patient pleasant but remains frustrated over current challenges with communication (expressive aphasia and some ongoing challenges with comprehension), inability to read and manage his medications, current driving restrictions Plan for disposition to SNF - pending acceptance Reviewed plan for disposition with patient / friend Candi today 11/16. Verbal reassurance provided as patient and friend were concerned about disposition and were fearful about possibility of discharge to home as he lives alone in [place] location in [place] with inability to drive / read and managehis medications / and ongoing trouble with communication. I have spoken with care management who remains actively involved in disposition planning and will meet patient / friend at bedside today upon Candi's arrival to the hospital to discuss further. Cancer Related Pain / Headache / Pain at surgical site / Postoperative pain Poor Appetite Pain improving with titration to TID ER morphine regimen starting yesterday 11/16 - has required 1 prn morphine (5 mg) in the past 24 hours Continue ER morphine regimen 15 mg q8h ATC Continue PO morphine liquid solution 5 mg q4h as needed for moderate/severe breakthrough pain Continue to have naloxone available Continue acetaminophen 975 q8h ATC Would benefit from follow-up with palliative medicine for ongoing symptom management following HD however depending on disposition location (given previous residence in [facility]), follow-up at [facility] palliative medicine at [place] or [facility] location may offer more convenience OIC Continue miralax BID Continue senna 1 tablet BID Glioblastoma S/p L temporal craniotomy Ongoing management per neurosurgery team Thank you for allowing us to participate in the ongoing care of this patient. Please don't hesitate to call or page with any additional concerns. * Jude Regan MD - 11/15/2023 1:58 PM EST Images from the original note were not included. [facility] A[facility]/A INTERVAL HISTORY: No acute overnight events Patient was seen and evaluated at bedside this morning. Denies any acute concerns and resting comfortably. Rest all other ROS were negative apart from ones mentioned in the HPI Objective Physical Exam Most Recent Vital Signs: BP: 158 mmHg/80 mmHg (11/15/23 1039) Pulse: 65 (11/15/23 1039) Temp: 37 C (11/15/23 1039) Temp Summary: Temp Min: 36.3 C (97.3 F) Max: 37 C (98.6 F) SpO2: 96 % (11/15/23 1039) O2 flow rate: 0 L/MIN (11/15/23 0629) Supplemental O2 Delivery: Simple Mask (11/15/23 1039) Constitutional: appears stated age, HEENT: surgical wound healthy appearing. Neck: supple, CV: Regular rate and rhythm, S1 and S2 present, no murmurs on auscultation. Chest: normal respiratory effort, Clear to auscultation bilaterally, no wheezes, rhonchi, crackles Abdomen: soft, non-tender, Extremities: no edema, Skin: no rash, petechiae, Neuro: Moves all extremities equally, no focal deficits Psych: alert, oriented to person, place, and time, normal mood and affect Peripheral Line Left;Right (Active) Number of days: 5 STUDIES: Encounter Orders Labs and other studies reviewed with pertinent findings noted below: Latest Reference Range & Units 11/14/23 07:15 11/15/23 07:19 WBC 4.00 - 10.80 K/uL 10.25 10.16 HGB 14.0 - 16.8 g/dL 12.7 (L) 13.3 (L) HCT 40.0 - 48.4 % 37.4 (L) 38.8 (L) MCV 82.0 - 99.5 fL 93.3 91.9 PLT 140 - 400 K/uL 249 271 (L): Data is abnormally low Latest Reference Range & Units 11/14/23 07:15 11/15/23 07:20 Sodium 135 - 146 mmol/L 138 137 Potassium 3.5 - 5.1 mmol/L 4.7 4.6 Chloride 98 - 107 mmol/L 103 103 CO2 22 - 32 mmol/L 26 24 BUN 6 - 20 mg/dL 24 (H) 24 (H) Creatinine 0.6 - 1.2 mg/dL 1.1 1.0 Estimated Glomerular Filtration Rate >=60 mL/min 79 88 Anion Gap 7 - 15 mmol/L 9 10 Glucose 70 - 120 mg/dL 103 112 Calcium 8.4 - 10.2 mg/dL 8.9 9.0 Magnesium 1.5 - 2.6 mg/dL 2.3 2.2 Phosphorus 2.5 - 4.8 mg/dL 3.6 4.0 (H): Data is abnormally high Assessment and Plan IMPRESSION : Principal Problem: Brain tumor (HCC) Active Problems: Coronary artery disease without angina pectoris HTN, goal below 140/90 Dyslipidemia, goal LDL below 100 Venous insufficiency Class 3 severe obesity due to excess calories with serious comorbidity and body mass index (BMI) of40.0 to 44.9 in adult (HCC) ALEKSANDR (obstructive sleep apnea) Brain mass Palliative care encounter Goals of care, counseling/discussion Cancer related pain Nonintractable headache Postoperative pain Decreased appetite Therapeutic opioid-induced constipation (OIC) Word finding difficulty Agitation Resolved Problems: * No resolved hospital problems. * DIFFERENTIAL AND PLAN: Brain tumour - likely high grade glioma S/P L temporal craniotomy - q4 hours check, SBP goal <160 mmHg - Dex 2 weeks taper - gi ppx while on steroids - keppra until follow up with NSGY - ok for chemical dvt ppx as per nsgy - ok for asa as well - appreciate palliative assistance with pain control - increase Morphine to 15 mg TID, restart Tylenol ATC, bowel regimen - outpatient follow up in neuro [facility], appreciate onc and rad onc consult. 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 ASA resumed as above ALEKSANDR-continue COMPUTER ENGINEERING PROFESSOR CPAP Rosacea-continue COMPUTER ENGINEERING PROFESSOR doxycycline PT OT and awaiting placement PHARMACOLOGIC VTE PROPHYLAXIS: hEParin CODE STATUS: Full Code EXPECTED DISCHARGE DATE: 11/18/2023 updated at bedside. I spent a total of 45 minutes coordinating, documenting, and providing care for this patient excluding time spent in the performance of separately billed services. Adela Jain CRNP - 11/15/2023 12:44 PM EST PROGRESS NOTE - Palliative Medicine [facility] [id number] Name: Remy Lujan Location: [facility] Date: 11/15/2023 Time: 12:44 PM SUBJECTIVE: Patient seen and chart reviewed. Family present: no Patient evaluated at bedside. Patient is having improved pain control but still reports waking up with uncontrolled headache/left-sided head pain 1st thing in the morning. Still continues to have trouble with word finding although this is somewhat improved with improving pain control. He still reports inability to read and trouble with comprehension. He remains worried about disposition plan and where he will live when he leaves. He is able to tolerate PO intake and is moving his bowels withoutconstipation. He is not nauseous/vomiting. OBJECTIVE: Most Recent Vital Signs: BP: 158 mmHg/80 mmHg (11/15/231038) Pulse: 65 (11/15/231038) Temp: 37 C (11/15/231038) Temp Summary: Temp Min: 36.3 C (97.3 F) Max: 37 C (98.6 F) SpO2: 96 % (11/15/231038) O2 flow rate: 0 L/MIN (11/15/23628) Supplemental O2 Delivery: Simple Mask (11/15/231038) Vital Signs Last 24 Hours: Systolic BP: Most Recent Systolic BP Av.9 mmHg Min: 129 mmHg Max: 158 mmHg Temperature: Most Recent Temperature Av.6 C Min: 36.28 C Max: 37 C Pulse: Pulse Av.9 Min: 52 Max: 68 Respirations: Resp Av.7 Min: 16 Max: 18 SpO2: SpO2 Av.2 % Min: 95 % Max: 98 % Constitutional: no acute distress HENT: normocephalic, intact joyce to L temporal region s/p craniotomy - no drainage or wound dehiscence Eyes: anicteric and Sclera and conjunctiva normal Neck: supple CV: normal rate and rhythm, no murmur, gallops or rub Chest: normal respiratory effort, lungs clear to auscultation and percussion Abdominal: normal: soft bowel sounds normal, no mass, tenderness or organomegaly Extremities: no clubbing, cyanosis, or edema, otherwise grossly normal, warm, and dry Musculoskeletal: (-) negative: no pain Skin: warm, dry Neuro: alert, oriented to person, place, and time, mild expressive aphasia Psych: calm, cooperative, frustrated over challenges with communication LABS REVIEWED: yes Component Latest Ref Rng 11/15/2023 WBC 4.00 - 10.80 K/uL 10.16 RBC 4.50 - 5.25 M/uL 4.22 HGB 14.0 - 16.8 g/dL 13.3 (L) HCT 40.0 - 48.4 % 38.8 (L) MCV 82.0 - 99.5 fL 91.9 MCH 27.0 - 34.0 pg 31.5 MCHC 32.0 - 36.0 g/dL 34.3 RDW 11.5 - 15.5 % 12.2 PLT 140 - 400 K/uL 271 MPV 6.6 - 11.1 fL 9.7 nRBCs <=0 /100 WBCs 0 BUN 6 - 20 mg/dL 24 (H) Creatinine 0.6 - 1.2 mg/dL 1.0 Estimated Glomerular Filtration Rate >=60 mL/min 88 Sodium 135 - 146 mmol/L 137 Potassium 3.5 - 5.1 mmol/L 4.6 Chloride 98 - 107 mmol/L 103 CO2 22 - 32 mmol/L 24 Anion Gap 7 - 15 mmol/L 10 Glucose 70 - 120 mg/dL 112 Calcium 8.4 - 10.2 mg/dL 9.0 Prothrombin Time 11.6 - 15.2 seconds 15.3 (H) INR 0.8 - 1.2 1.2 Magnesium 1.5 - 2.6 mg/dL 2.2 Phosphorus 2.5 - 4.8 mg/dL 4.0 Legend: (L) Low (H) High IMAGING REVIEWED: no new studies ASSESSMENT/PLAN: Remy Cash Tai is a/an 58 year old male referred for consultation to Palliative Medicine with the primary diagnosis of: Cancer: Non-Metastatic new L temporal- occipital junction mass concerning for high grade ADDICTION NURSE tumor (glioblastoma) s/p L temporal craniotomy 11/10 Secondary Diagnoses are CAD, ischemic cardiomyopathy, HTN, dyslipidemia, ALEKSANDR, venous insufficiency,adjustment disorder with depressed mood, hx meniere's disease, former smoker Pathology s/p craniotomy still in process - still awaiting formal diagnosis, concern for high gradeglioma Likely will benefit from GOC following pathology results Palliative Care Encounter Patient pleasant but remains frustrated over current challenges with communication (expressive aphasia and some ongoing challenges with comprehension), inability to read and manage his medications, current driving restrictions Plan for disposition to SNF - pending acceptance Cancer Related Pain / Headache / Pain at surgical site / Postoperative pain Poor Appetite Pain improving but reports ongoing uncontrolled pain 1st thing in the morning after he wakes up haschallenges asking/waiting for p.r.n. medications Patient required 25 mg p.r.n. morphine on 11/13 and 15 mg p.r.n. morphine on 11/14 I have some concern over patient's ability to ask for p.r.n. morphine with ongoing challenges with comprehension/expressive aphasia Recommend to consider titration of ER morphine regimen - consider 15 mg q8h ATC (currently q12h) Continue PO morphine liquid solution 5 mg q4h as needed for moderate/severe breakthrough pain Continue to have naloxone available May consider resuming acetaminophen 975 q8h ATC OIC Continue miralax BID Continue senna 1 tablet BID Concern for high grade glioma S/p L temporal craniotomy Ongoing management per neurosurgery team Thank you for allowing us to participate in the ongoing care of this patient. Please don't hesitate to call or page with any additional concerns. * Jude Regan MD - 11/14/2023 1:44 PM EST Images from the original note were not included. [facility] A471/A INTERVAL HISTORY: No acute overnight events Patient was seen and evaluated at bedside this morning. Denies any acute concerns and resting comfortably. Rest all other ROS were negative apart from ones mentioned in the HPI Objective Physical Exam Most Recent Vital Signs: BP: 128 mmHg/62 mmHg (11/14/23 1036) Pulse: 73 (11/14/23 1036) Temp: 36.5 C (11/14/23 1036) Temp Summary: Temp Min: 36 C (96.8 F) Max: 36.5 C (97.7 F) SpO2: 97 % (11/14/23 1036) O2 flow rate: 0 L/MIN (11/14/23 1036) Supplemental O2 Delivery: Room Air, None (11/14/23 103) Constitutional: no acute distress CV: normal rate and rhythm, no murmur, gallops or rub Chest: normal respiratory effort, lungs clear to auscultation and percussion Abdomen: normal: soft, bowel sounds normal, no masses, tenderness or organomegaly Extremities: no clubbing, cyanosis, or edema, otherwise grossly normal, warm, and dry Neuro: alert, oriented to person, place, and time, normal mental status exam, muscular strength 5/5and symmetric, head: surgical wound healthy appearing Psych: normal mood and affect Peripheral Line Left;Right (Active) Number of days: 4 STUDIES: Encounter Orders Labs and other studies reviewed with pertinent findings noted below: Latest Reference Range & Units 11/13/23 06:56 11/14/23 07:15 Sodium 135 - 146 mmol/L 139 138 Potassium 3.5 - 5.1 mmol/L 4.5 4.7 Chloride 98 - 107 mmol/L 104 103 CO2 22 - 32 mmol/L 24 26 BUN 6 - 20 mg/dL 23 (H) 24 (H) Creatinine 0.6 - 1.2 mg/dL 1.0 1.1 Estimated Glomerular Filtration Rate >=60 mL/min 90 79 Anion Gap 7 - 15 mmol/L 11 9 Glucose 70 - 120 mg/dL 115 103 Calcium 8.4 - 10.2 mg/dL 8.9 8.9 Magnesium 1.5 - 2.6 mg/dL 2.2 2.3 Phosphorus 2.5 - 4.8 mg/dL 3.5 3.6 (H): Data is abnormally high Latest Reference Range & Units 11/13/23 06:56 11/14/23 07:15 WBC 4.00 - 10.80 K/uL 11.63 (H) 10.25 HGB 14.0 - 16.8 g/dL 13.5 (L) 12.7 (L) HCT 40.0 - 48.4 % 40.1 37.4 (L) MCV 82.0 - 99.5 fL 92.0 93.3 PLT 140 - 400 K/uL 265 249 (H): Data is abnormally high (L): Data is abnormally low Assessment and Plan IMPRESSION : Principal Problem: Brain tumor (HCC) Active Problems: Coronary artery disease without angina pectoris HTN, goal below 140/90 Dyslipidemia, goal LDL below 100 Venous insufficiency Class 3 severe obesity due to excess calories with serious comorbidity and body mass index (BMI) of40.0 to 44.9 in adult (HCC) ALEKSANDR (obstructive sleep apnea) Brain mass Palliative care encounter Goals of care, counseling/discussion Cancer related pain Nonintractable headache Postoperative pain Decreased appetite Therapeutic opioid-induced constipation (OIC) Word finding difficulty Agitation Resolved Problems: * No resolved hospital problems. * DIFFERENTIAL AND PLAN: Brain tumour - likely high grade glioma S/P L temporal craniotomy - q4 hours check, SBP goal <160 mmHg - Dex 2 weeks taper - gi ppx while on steroids - keppra until follow up with NSGY - ok for chemical dvt ppx as per nsgy - ok for asa as wlel - appreciate palliative assistance with pain control - outpatient follow up in neuro [facility], appreciate onc and rad onc consult. 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 ASA resumed as above ALEKSANDR-continue COMPUTER ENGINEERING PROFESSOR CPAP Rosacea-continue COMPUTER ENGINEERING PROFESSOR doxycycline PHARMACOLOGIC VTE PROPHYLAXIS: hEParin CODE STATUS: Full Code EXPECTED DISCHARGE DATE: 11/15/2023 updated over telephone I spent a total of 50 minutes coordinating, documenting, and providing care for this patient excluding time spent in the performance of separately billed services. * Ryan Bonilla DO - 11/13/2023 6:35 PM EST Images from the original note were not included. [facility] A471/A INTERVAL HISTORY: Patient seen and examined at bedside. No acute overnight events. This morning, patient was complaining of pain and received Toradol by night team. I educated patient on asking for p.r.n. pain medication before pain escalates. Objective Physical Exam Most Recent Vital Signs: BP: 133 mmHg/70 mmHg (11/13/231806) Pulse: 68 (11/13/231806) Temp: 36.11 C (11/13/231806) Temp Summary: Temp Min: 35.9 C (96.6 F) Max: 37 C (98.6 F) SpO2: 96 % (11/13/231806) O2 flow rate: 0 L/MIN (11/13/231806) Supplemental O2 Delivery: Room Air, None (11/13/231806) Constitutional: no acute distress HEENT: normal: normocephalic, atraumatic; no masses, tenderness, or adenopathy, status post hemicraniotomy, with dressing and hat on head CV: normal rate and rhythm, no murmur, gallops or rub Chest: normal respiratory effort, lungs clear to auscultation and percussion Abdomen: normal: soft, bowel sounds normal, no masses, tenderness or organomegaly Extremities: no clubbing, cyanosis, or edema, otherwise grossly normal, warm, and dry Neuro: Alert and oriented, but has expressive dysphagia Peripheral Line Left;Right (Active) Number of days: 3 STUDIES: Encounter Orders Labs and other studies reviewed with pertinent findings noted below: Assessment and Plan IMPRESSION : Principal Problem: Brain tumor (HCC) Active Problems: Coronary artery disease without angina pectoris HTN, goal below 140/90 Dyslipidemia, goal LDL below 100 Venous insufficiency Class 3 severe obesity due to excess calories with serious comorbidity and body mass index (BMI) of40.0 to 44.9 in adult (HCC) ALEKSANDR (obstructive sleep apnea) Brain mass Palliative care encounter Goals of care, counseling/discussion Cancer related pain Nonintractable headache Postoperative pain Decreased appetite Therapeutic opioid-induced constipation (OIC) Word finding difficulty Agitation Resolved Problems: * No resolved hospital problems. * DIFFERENTIAL AND PLAN: Brain tumor, possibly glioblastoma JAMES -Neurosurgery consulted -taken to OR on 11/10/2023, underwent left temporal craniotomy for tumor resection -follow biopsy results -neuro checks q.4 hours -MRI brain with/without postop within 24 hours of surgery. Will be done today. -dexamethasone 2 week taper regimen -GI Ppx while on steroids (on famotidine) -Keppra until follow-up, as per Neurosurgery -p.r.n. Tylenol for headaches -Oncology follow-up appreciated -Radiation Oncology following. Appreciate recommendations -PT/OT consulted. Appreciate recommendations. AM PAC 18 -care management working on placement options, since [facility]. -speech consulted -they will follow for speech language cognitive communication therapy during the hospitalization. -trend creatinine -I started morphine extended release 15 mg twice daily for better pain control, which has been helping -palliative medicine consulted for pain management and to establish relationship with patient. Appreciate recommendations -per palliative Medicine, continue sustained release morphine standing twice daily; discontinue allIV pain meds and give p.o. morphine liquid solution 5 mg q.4 hours p.r.n. for moderate/severe and breakthrough pain; have naloxone available; bowel regimen with MiraLax, senna, Colace Severe Hypokalemia -resolved -replete as needed -trend potassium levels Other chronic medical conditions Hypertension-holding COMPUTER ENGINEERING PROFESSOR lisinopril; consider alternative antihypertensive if hypertensive and concerns for worsening JAMES CAD-continue COMPUTER ENGINEERING PROFESSOR beta-mike; did not tolerate statin in the past. Will need discussion with Cardiology about alternative meds; hold COMPUTER ENGINEERING PROFESSOR aspirin per Neurosurgery, since patient underwent surgery yesterday. Will resume from tomorrow ALEKSANDR-continue COMPUTER ENGINEERING PROFESSOR CPAP Rosacea-continue COMPUTER ENGINEERING PROFESSOR doxycycline PHARMACOLOGIC VTE PROPHYLAXIS: hEParin CODE STATUS: Full Code EXPECTED DISCHARGE DATE: 11/12/2023 I spent a total of 51 minutes providing care for this patient. Management included assessment and examination of the patient and detailed review and preparation of records. More than half of my time was spent counseling the patient / family regarding their current condition, treatment plan, disposition and coordinating care for the patient on the floor. * Prema Gracia MD - 11/13/2023 3:29 PM EST PROGRESS NOTE - Palliative Medicine [facility] [id number] Name: Remy Lujan [place] [facility] Date: 11/13/2023 Time: 3:29 PM Remy Lujan is a 58 year old male with hypertension, CAD, Dyslipidemia, ALEKSANDR, Ischemic cardiomyopathy presents as a transfer from [facility] as Imaging showed a new brain tumor on MRI from 11/05/2023. Surgical resection suggested that he hasa glioblastoma multiforme. Postoperatively he has had pain. He is just started sustained release morphine with oral immediate release as needed. As of this afternoon his pain is better. His friend Candi is his DPOA. SUBJECTIVE: Patient seen and chart reviewed. Family present: no Pain: yes, now: 5 10 Nausea: no Vomiting: no Confusion: Expressive aphasia Somnolence: no Constipation: no Dyspnea: no Anxious: yes, reviewed OBJECTIVE: Most Recent Vital Signs: BP: 159 mmHg/80 mmHg (11/13/23 1410) Pulse: 68 (11/13/23 1410) Temp: 36.11 C (11/13/23 1410) Temp Summary: Temp Min: 35.9 C (96.6 F) Max: 37 C (98.6 F) SpO2: 96 % (11/13/23 1410) O2 flow rate: 0 L/MIN (11/13/23 1007) Supplemental O2 Delivery: Room Air, None (11/13/23 1410) Vital Signs Last 24 Hours: Systolic BP: Most Recent Systolic BP Av.7 mmHg Min: 117 mmHg Max: 160 mmHg Temperature: Most Recent Temperature Av.3 C Min: 35.89 C Max: 37 C Pulse: Pulse Av Min: 53 Max: 81 Respirations: Resp Av Min: 16 Max: 18 SpO2: SpO2 Av.5 % Min: 95 % Max: 98 % Constitutional: (+) ill appearing HENT: normocephalic, left cranial surgical site appears to be intact with sutures present Eyes: anicteric Neck: supple CV: normal rate and rhythm, no murmur, gallops or rub Chest: normal respiratory effort, lungs clear to auscultation and percussion Abdominal: normal: soft bowel sounds normal, no mass, tenderness or organomegaly Extremities: no clubbing, cyanosis, or edema, otherwise grossly normal, warm, and dry Neuro: Expressive aphasia some difficulty hearing but no focal motor deficits Psych: anxious LABS REVIEWED: no IMAGING REVIEWED: no new studies ASSESSMENT/PLAN: 58-year-old with what appears to be a left cerebral glioblastoma associated with expressive aphasia. He has postoperative pain which seems to have improved with the sustained release morphine. Thank you for allowing us to participate in the ongoing care of this patient. Please don't hesitate to call or page with any additional concerns. * Ryan Bonilla DO - 11/12/2023 12:16 PM EST Images from the original note were not included. [facility] A471/A INTERVAL HISTORY: Patient seen and examined at bedside. No acute overnight events. Patient still having word-finding difficulty. Significant other is at bedside. Concerned. Provided her with clinical updates. Patient reports uncontrolled pain at surgical site. Patient is very interested in speaking with palliative medicine about goals of care and pain management. Objective Physical Exam Most Recent Vital Signs: BP: 122 mmHg/61 mmHg (11/12/23 1420) Pulse: 78 (11/12/23 1420) Temp: 37 C (11/12/23 1420) Temp Summary: Temp Min: 36.4 C (97.6 F) Max: 37 C (98.6 F) SpO2: 95 % (11/12/23 1420) O2 flow rate: 0 L/MIN (11/12/23 1420) Supplemental O2 Delivery: Room Air, None (11/12/231419) Constitutional: no acute distress HEENT: normal: normocephalic, atraumatic; no masses, tenderness, or adenopathy, status post hemicraniotomy, with dressing and hat on head CV: normal rate and rhythm, no murmur, gallops or rub Chest: normal respiratory effort, lungs clear to auscultation and percussion Abdomen: normal: soft, bowel sounds normal, no masses, tenderness or organomegaly Extremities: no clubbing, cyanosis, or edema, otherwise grossly normal, warm, and dry Neuro: Alert and oriented, but has expressive dysphagia Peripheral Line Left;Lower Arm 20 Gauge (Active) Number of days: 3 Peripheral Line Left;Right (Active) Number of days: 2 STUDIES: Encounter Orders Labs and other studies reviewed with pertinent findings noted below: Assessment and Plan IMPRESSION : Principal Problem: Brain tumor (HCC) Active Problems: Coronary artery disease without angina pectoris HTN, goal below 140/90 Dyslipidemia, goal LDL below 100 Venous insufficiency Class 3 severe obesity due to excess calories with serious comorbidity and body mass index (BMI) of40.0 to 44.9 in adult (HCC) ALEKSANDR (obstructive sleep apnea) Brain mass Palliative care encounter Goals of care, counseling/discussion Cancer related pain Nonintractable headache Postoperative pain Decreased appetite Therapeutic opioid-induced constipation (OIC) Word finding difficulty Agitation Resolved Problems: * No resolved hospital problems. * DIFFERENTIAL AND PLAN: Brain tumor, possibly glioblastoma JAMES -Neurosurgery consulted -taken to OR on 11/10/2023, underwent left temporal craniotomy for tumor resection -follow biopsy results -neuro checks q.4 hours -MRI brain with/without postop within 24 hours of surgery. Will be done today. -dexamethasone 2 week taper regimen -GI Ppx while on steroids (on famotidine) -Keppra until follow-up, as per Neurosurgery -p.r.n. Tylenol for headaches -Oncology follow-up appreciated -Radiation Oncology following. Appreciate recommendations -PT/OT consulted. Appreciate recommendations. AM PAC 18 -care management working on placement options, since patient lives alone [facility]. -speech consulted -they will follow for speech language cognitive communication therapy during the hospitalization. -trend creatinine -I started morphine extended release 15 mg twice daily for better pain control -palliative medicine consulted for pain management and to establish relationship with patient. Appreciate recommendations Severe Hypokalemia -replete potassium through IV and p.o. -check potassium level tonight around 9:00 p.m. Other chronic medical conditions Hypertension-holding COMPUTER ENGINEERING PROFESSOR lisinopril; consider alternative antihypertensive if hypertensive and concerns for worsening JAMES CAD-continue COMPUTER ENGINEERING PROFESSOR beta-mike; did not tolerate statin in the past. Will need discussion with Cardiology about alternative meds; hold COMPUTER ENGINEERING PROFESSOR aspirin per Neurosurgery, since patient underwent surgery yesterday. Will resume from tomorrow ALEKSANDR-continue COMPUTER ENGINEERING PROFESSOR CPAP Rosacea-continue COMPUTER ENGINEERING PROFESSOR doxycycline PHARMACOLOGIC VTE PROPHYLAXIS: hEParin CODE STATUS: Full Code EXPECTED DISCHARGE DATE: 11/12/2023 I spent a total of 58 minutes providing care for this patient. Management included assessment and examination of the patient and detailed review and preparation of records. More than half of my time was spent counseling the patient / family regarding their current condition, treatment plan, disposition and coordinating care for the patient on the floor. * Digna Hanna CRNP - 11/12/2023 9:48 AM EST PROGRESS NOTE - Radiation Oncology Service [facility] [id number] Name: Remy Lujan [place] [facility] Date: 11/12/2023 Time: 9:48 AM SUBJECTIVE: The patient complains of MERRILL, and word finding difficulties . Review of systems: Constitutional: (+) weakness Eyes: (-) negative, no amaurosis fugax, pain, blurred vision, or redness Cardiovascular: (-) negative: no chest pain, dyspnea, syncope, or palpitations Pulmonary: (-) negative: no cough, wheezing, or shortness of breath Abdominal/GI: (-) negative: no pain, heartburn, dysphagia, bleeding, change in bowel habits, nauseaor vomiting Musculoskeletal: (-) negative: no pain Endocrine: (-) negative: no weight change, heat or cold intolerance, polyuria Hematology/oncology: (-) negative: no fever, night sweats, masses, or swollen nodes Neurology: (+) headaches Psychiatry: (-) negative: no depression or anxiety. OBJECTIVE: Most Recent Vital Signs: BP: 135 mmHg/72 mmHg (11/12/23648) Pulse: 77 (11/12/23648) Temp: 36.5 C (11/12/23648) Temp Summary: Temp Min: 36.3 C (97.3 F) Max: 36.8 C (98.2 F) SpO2: 93 % (11/12/23648) O2 flow rate: 0 L/MIN (11/12/23648) Supplemental O2 Delivery: Room Air, None (11/12/23648) Vital Signs Last 24 Hours: Systolic BP: Most Recent Systolic BP Av mmHg Min: 127 mmHg Max: 137 mmHg Temperature: Most Recent Temperature Av.5 C Min: 36.28 C Max: 36.78 C Pulse: Pulse Av.5 Min: 76 Max: 88 Respirations: Resp Av.3 Min: 16 Max: 20 SpO2: SpO2 Av.3 % Min: 93 % Max: 98 % Constitutional: A/O x2 Eyes: sclera and conjunctiva normal Neck: supple, normal range of motion Musculoskeletal: (-) negative Extremities: no clubbing, cyanosis, or edema, otherwise grossly normal, warm, and dry Surgical site: dressing in place C/D/I Lymph Nodes: no cervical adenopathy noted, no supraclavicular adenopathy noted Neuro: alert, (+) agitated, due to aphasia LABS: Labs reviewed as indicated below: CBC Results: Results for orders placed or performed during the hospital encounter of 11/05/23 CBC Result Value Ref Range WBC 12.96 (H) 4.00 - 10.80 K/uL RBC 4.24 4.50 - 5.25 M/uL HGB 13.0 (L) 14.0 - 16.8 g/dL HCT 39.1 (L) 40.0 - 48.4 % MCV 92.2 82.0 - 99.5 fL MCH 30.7 27.0 - 34.0 pg MCHC 33.2 32.0 - 36.0 g/dL RDW 12.4 11.5 - 15.5 % PLT 255 140 - 400 K/uL MPV 10.2 6.6 - 11.1 fL nRBCs 0 <=0 /100 WBCs IMAGING: I personally reviewed the following images and diagnostic studies. (Impression copies from medical chart) 11/11/23 MRI brain post-op IMPRESSION 1. Expected postoperative changes following left temporal lobe tumor resection with mild residual tumor involving the resection cavity margins, multicentric left parietal enhancement/satellite lesions, and subependymal tumor spread. 2. Stable incidental small right frontal convexity meningioma. Principal Problem: Brain tumor (HCC) (POA: Yes) Active Problems: Coronary artery disease without angina pectoris (POA: Yes) HTN, goal below 140/90 (POA: Yes) Dyslipidemia, goal LDL below 100 (POA: Yes) Venous insufficiency (POA: Yes) Class 3 severe obesity due to excess calories with serious comorbidity and body mass index (BMI) of40.0 to 44.9 in adult (HCC) (POA: Yes) ALEKSANDR (obstructive sleep apnea) (POA: Yes) Brain mass (POA: Unknown) POA = Present On Admission IMPRESSION: 58M admitted with L temporoparietal junction mass concerning for high-grade ADDICTION NURSE tumor s/p L temporal craniotomy 11/10 [Dr Ornelas] PLAN: Await pathology. Outpatient follow up in neuro [facility] as scheduled. Radiation Oncology will sign off. Thank you for allowing us to participate in care of this pleasant patient. Please do not hesitate to contact us if further assistance is needed. * Ryan Bonilla DO - 11/11/2023 4:26 PM EST Images from the original note were not included. [facility] A471/A INTERVAL HISTORY: Patient seen and examined at bedside. No acute overnight events. Patient is still having word-finding difficulties, but somewhat improved from before. Denied any significant complaints at this time. I spoke with his significant other on the phone and provided her with clinical updates and answered her questions as well. Objective Physical Exam Most Recent Vital Signs: BP: 128 mmHg/72 mmHg (11/11/23 1400) Pulse: 80 (11/11/23 1400) Temp: 36.39 C (11/11/23 1400) Temp Summary: Temp Min: 36.1 C (97 F) Max: 36.9 C (98.4 F) SpO2: 97 % (11/11/23 1400) O2 flow rate: 0 L/MIN (11/11/23 1039) Supplemental O2 Delivery: Room Air, None (11/11/23 1400) Constitutional: no acute distress HEENT: normal: normocephalic, atraumatic; no masses, tenderness, or adenopathy, status post hemicraniotomy, with dressing and hat on head CV: normal rate and rhythm, no murmur, gallops or rub Chest: normal respiratory effort, lungs clear to auscultation and percussion Abdomen: normal: soft, bowel sounds normal, no masses, tenderness or organomegaly Extremities: no clubbing, cyanosis, or edema, otherwise grossly normal, warm, and dry Neuro: Alert and oriented, but has expressive dysphagia Peripheral Line Left;Lower Arm 20 Gauge (Active) Number of days: 2 Peripheral Line Left;Right (Active) Number of days: 1 STUDIES: Encounter Orders Labs and other studies reviewed with pertinent findings noted below: Assessment and Plan IMPRESSION : Principal Problem: Brain tumor (HCC) Active Problems: Coronary artery disease without angina pectoris HTN, goal below 140/90 Dyslipidemia, goal LDL below 100 Venous insufficiency Class 3 severe obesity due to excess calories with serious comorbidity and body mass index (BMI) of40.0 to 44.9 in adult (HCC) ALEKSANDR (obstructive sleep apnea) Brain mass Resolved Problems: * No resolved hospital problems. * DIFFERENTIAL AND PLAN: Brain tumor, possibly glioblastoma JAMES -Neurosurgery consulted -taken to OR on 11/10/2023, underwent left temporal craniotomy for tumor resection -follow biopsy results -neuro checks q.4 hours -MRI brain with/without postop within 24 hours of surgery. Will be done today. -dexamethasone 2 week taper regimen -GI Ppx while on steroids (on famotidine) -Keppra until follow-up, as per Neurosurgery -p.r.n. Tylenol for headaches -Oncology follow-up appreciated -Radiation Oncology following. Appreciate recommendations -PT/OT consulted. Appreciate recommendations. AM PAC 18 -care management working on placement options, since [facility]. -speech consulted -they will follow for speech language cognitive communication therapy during the hospitalization. -trend creatinine Severe Hypokalemia -replete potassium through IV and p.o. -check potassium level tonight around 9:00 p.m. Other chronic medical conditions Hypertension-holding COMPUTER ENGINEERING PROFESSOR lisinopril; consider alternative antihypertensive if hypertensive and concerns for worsening JAMES CAD-continue COMPUTER ENGINEERING PROFESSOR beta-mike; did not tolerate statin in the past. Will need discussion with Cardiology about alternative meds; hold COMPUTER ENGINEERING PROFESSOR aspirin per Neurosurgery, since patient underwent surgery yesterday. Will resume from tomorrow ALEKSANDR-continue COMPUTER ENGINEERING PROFESSOR CPAP Rosacea-continue COMPUTER ENGINEERING PROFESSOR doxycycline PHARMACOLOGIC VTE PROPHYLAXIS: hEParin CODE STATUS: Full Code EXPECTED DISCHARGE DATE: 11/15/2023 I spent a total of 56 minutes providing care for this patient. Management included assessment and examination of the patient and detailed review and preparation of records. More than half of my time was spent counseling the patient / family regarding their current condition, treatment plan, disposition and coordinating care for the patient on the floor. * Ryan Bonilla DO - 11/10/2023 5:04 PM EST Images from the original note were not included. [facility] [place] [facility] INTERVAL HISTORY: Patient seen and examined at bedside. No acute overnight events. Patient was taken to the OR today for temporal craniotomy for tumor resection. Patient seen postoperatively in the PACU. He is doing well. He is receiving IV potassium, which is burning his arm. Otherwise denied any complaints at this time. He has expressive dysphagia, so was difficult to obtain history from. Objective Physical Exam Most Recent Vital Signs: BP: 115 mmHg/50 mmHg (11/10/23 1645) Pulse: 78 (11/10/23 1645) Temp: 36.61 C (11/10/23 1600) Temp Summary: Temp Min: 36.4 C (97.5 F) Max: 37.3 C (99.1 F) SpO2: 95 % (11/10/231644) O2 flow rate: 0 L/MIN (11/10/231644) Supplemental O2 Delivery: Room Air, None (11/10/231644) Constitutional: no acute distress HEENT: normal: normocephalic, atraumatic; no masses, tenderness, or adenopathy, status post hemicraniotomy, with dressing and hat on head CV: normal rate and rhythm, no murmur, gallops or rub Chest: normal respiratory effort, lungs clear to auscultation and percussion Abdomen: normal: soft, bowel sounds normal, no masses, tenderness or organomegaly Extremities: no clubbing, cyanosis, or edema, otherwise grossly normal, warm, and dry Neuro: Alert and oriented, but has expressive dysphagia Peripheral Line Left;Lower Arm 20 Gauge (Active) Number of days: 1 Arterial Line Left Radial (Active) Number of days: 0 STUDIES: Encounter Orders Labs and other studies reviewed with pertinent findings noted below: Assessment and Plan IMPRESSION : Principal Problem: Brain tumor (HCC) Active Problems: Coronary artery disease without angina pectoris HTN, goal below 140/90 Dyslipidemia, goal LDL below 100 Venous insufficiency Class 3 severe obesity due to excess calories with serious comorbidity and body mass index (BMI) of40.0 to 44.9 in adult (HCC) ALEKSANDR (obstructive sleep apnea) Brain mass Resolved Problems: * No resolved hospital problems. * DIFFERENTIAL AND PLAN: Brain tumor, possibly glioblastoma JAMES -Neurosurgery consulted -taken to OR on 11/10/2023,, underwent left temporal craniotomy for tumor resection -follow biopsy results -p.r.n. Tylenol for headaches -Oncology follow-up appreciated -Radiation Oncology following. Appreciate recommendations -PT/OT -speech consulted -trend creatinine Severe Hypokalemia -replete potassium through IV and p.o. -check potassium level tonight around 9:00 p.m. Other chronic medical conditions Hypertension-holding COMPUTER ENGINEERING PROFESSOR lisinopril; consider alternative antihypertensive if hypertensive and concerns for worsening JAMES CAD-continue COMPUTER ENGINEERING PROFESSOR beta-mike; did not tolerate statin in the past. Will need discussion with Cardiology about alternative meds; hold COMPUTER ENGINEERING PROFESSOR aspirin per Neurosurgery, since patient underwent surgery today ALEKSANDR-continue COMPUTER ENGINEERING PROFESSOR CPAP Rosacea-continue COMPUTER ENGINEERING PROFESSOR doxycycline PHARMACOLOGIC VTE PROPHYLAXIS: This patient does not have an active medication from one of the medication groupers. CODE STATUS: Full Code EXPECTED DISCHARGE DATE: 11/12/2023 I spent a total of 52 minutes coordinating, documenting, and providing care for this patient excluding time spent in the performance of separately billed services. * Adonay Conn PA-C - 11/10/2023 3:58 PM EST Post-Operative Note - Neurosurgery [address] [address] Name: Remy Luajn [place] [facility]: 11/10/2023 Time: 3:59 PM SUBJECTIVE: Rmey Lujan is a 58 year old male POD # 0. Procedure: Left temporal craniotomy for tumor resection (Ceci) Indication: Large symptomatic left temporal brain tumor, cerebral edema, mass effect Evaluated in PACU. Waking up from anesthesia. Pain controlled. No issues. ROS: Constitutional: Denies fever chills sweats Eyes: Denies pain, blurred vision, redness Cardiovascular: Denies chest pain, dyspnea Pulmonary: Denies shortness of breath Abdominal/GI: Denies pain, nausea, vomiting Neurology: Denies focal neurologic defect OBJECTIVE: Most Recent Vital Signs: BP: 119 mmHg/54 mmHg (11/10/23 154) Pulse: 87 (11/10/23 154) Temp: 36.78 C (11/10/23 1505) Temp Summary: Temp Min: 36.4 C (97.5 F) Max: 37.3 C (99.1 F) SpO2: 96 % (11/10/23 154) O2 flow rate: 0 L/MIN (11/10/231544) Supplemental O2 Delivery: Room Air, None (11/10/231544) Vital Signs Last 24 Hours: Systolic BP: Most Recent Systolic BP Av.3 mmHg Min: 111 mmHg Max: 160 mmHg Temperature: Most Recent Temperature Av.9 C Min: 36.39 C Max: 37.28 C Pulse: Pulse Av.8 Min: 60 Max: 94 Respirations: Resp Av.3 Min: 11 Max: 18 SpO2: SpO2 Av.7 % Min: 95 % Max: 99 % FiO2%: No data recorded ICP: No data found.CPP (adult): No data found.Intake / Output (Last 24 Hours): Intake/Output Summary (Last 24 hours) at 11/10/2023 1559 Last data filed at 11/10/2023 1509 Gross per 24 hour Intake 2543.42 ml Output 750 ml Net 1793.42 ml Neurologically stable AA&O No acute distress Follows all commands Pleasant and cooperative PERRL CN II-XII grossly intact Amy spontaneously Strength and sensation grossly intact Surgical Site: Sutures in place, clean, dry, intact, telfa DRAINS: None LABS: No new laboratory IMAGING: No new immediate studies. Needs an MRI within 24 hours. IMPRESSION: Remy Lujan is a 58 year old male POD #0 from a left temporal craniotomy for tumor resection (Ceci) 11/10/2023 conducted for a large symptomatic left temporal brain tumor, cerebral edema, mass effect. Frozen consistent for GBM. Principal Problem: Brain tumor (HCC) (POA: Yes) Active Problems: Coronary artery disease without angina pectoris (POA: Yes) HTN, goal below 140/90 (POA: Yes) Dyslipidemia, goal LDL below 100 (POA: Yes) Venous insufficiency (POA: Yes) Class 3 severe obesity due to excess calories with serious comorbidity and body mass index (BMI) of40.0 to 44.9 in adult (HCC) (POA: Yes) ALEKSANDR (obstructive sleep apnea) (POA: Yes) Brain mass (POA: Unknown) POA = Present On Admission - MRI brain within the next 24 hours - Keppra 500 mg BID - Dexamethasone taper over next 2 weeks - BP goals <160 - MedSurg - PRN analgesia & bowel regimen - Post-operative antibiotics x 24 hours. - Advance activity & diet ad edgard - Call for neurostatus changes - COMPUTER ENGINEERING PROFESSOR home meds - SCD's, TEDS - PT/OT Adonay Conn Daniel, PA-C Neurosurgery - Neurosciences Department [facility] * Aamir Mendieta MD - 11/10/2023 6:56 AM EST NEUROLOGICAL SURGERY PROGRESS NOTE [address] [address] Name: Remy Lujan [place] [facility] Date: 11/10/2023 Time: 6:56 AM Hospital day number: 5 SUBJECTIVE: No new events. OBJECTIVE: Vital signs over last 24 hours: BP: 131 mmHg/70 mmHg (11/10/23635) Most Recent Systolic BP Av.7 mmHg Min: 117 mmHg Max: 141 mmHg Pulse: 63 (11/10/23635) 1 degree AV Block (11/09/23 2307) Pulse Av.7 Min: 60 Max: 71 Temperature: 37.28 C (11/10/23635) Most Recent Temperature Av.8 C Min: 36.39 C Max: 37.28 C Respirations: 16 (11/10/23635) Resp Av Min: 16 Max: 18 SpO2: 96 % (11/10/23635) SpO2 Av.3 % Min: 95 % Max: 99 % ICP: No data recorded CPP: No data recorded Input/Output: (last 24 hours) Intake/Output Summary (Last 24 hours) at 11/10/2023 0656 Last data filed at 11/10/2023 0406 Gross per 24 hour Intake 543.97 ml Output -- Net 543.97 ml PHYSICAL EXAM: Awake, alert, oriented to person, place, time Resting comfortably in bed No acute distress Heart: RRR Lungs: Normal respiratory effort Neurologic Examination Madison Coma Scale (GCS): Eyes Open: 4 = spontaneous Best Verbal Response: 5 = verbally appropriate for age Best Motor Response: 6 = obeys commands appropriate for age Coma Score: 15 PERRL EOMI No facial droop MASTERS to command RUE 5/5 LUE 5/5 RLE 5/5 LLE 5/5 Sensation grossly intact No pronator drift Mild mixed aphasia No visual field abnormalities Labs: reviewed Imaging studies: No new imaging IMPRESSION: Remy Lujan is a 58 year old male patient with a newly diagnosed left posterior temporal lesion, presenting with some paraphasic errors and inability to read. Otherwise no neurologic deficits andspeech function is quite good despite some minor problems. Problem list: Principal Problem: Brain tumor (HCC) Active Problems: Coronary artery disease without angina pectoris HTN, goal below 140/90 Dyslipidemia, goal LDL below 100 Venous insufficiency Class 3 severe obesity due to excess calories with serious comorbidity and body mass index (BMI) of40.0 to 44.9 in adult (HCC) ALEKSANDR (obstructive sleep apnea) Brain mass Resolved Problems: * No resolved hospital problems. * PLAN: Plan for OR today for resection NPO except meds q4 hour neuro checks, vitals Ok for OOB for meals Daily showers DVT ppx with SQH/TEDs/SCDs Medical risk stratification and optimization; appreciate medicine consult - cleared for surgery PT/OT, speech therapy evals Discussed with Dr. Ceci Mendieta M.D. PGY5 Neurosurgery Associated attestation - Matteo Ornelas III, MD - 11/10/2023 9:11 AM EST I saw and evaluated the patient today. I have reviewed the trainee note and agree. Lungs clear Heart sounds normal * Axel Lazo MD - 11/09/2023 1:57 PM EST Images from the original note were not included. [facility] INTERVAL HISTORY: OVERNIGHT: no acute events SUBJECTIVE: Patient seen and examined at bedside No new symptoms Lying comfortably Had BM yesterday Denies significant headache No new weakness, no chest pain, palpitations, vision changes Saturating 96% on RA Objective Physical Exam Most Recent Vital Signs: BP: 117 mmHg/65 mmHg (11/09/23 1000) Pulse: 62 (11/09/23 1000) Temp: 36.5 C (11/09/23 1000) Temp Summary: Temp Min: 36 C (96.8 F) Max: 36.7 C (98.1 F) SpO2: 96 % (11/09/23 1000) O2 flow rate: 0 L/MIN (11/09/23 0604) Supplemental O2 Delivery: Room Air, None (11/09/23 1000) BP 117/65 | Pulse 62 | Temp 36.5 C (97.7 F) (Tympanic) | Resp 18 | Ht 1.88 m (6' 2") | Wt (!) 146.6 kg (323 lb 4.8 oz) | SpO2 96% | BMI 41.51 kg/m | BSA 2.77 m Constitutional: Patient lying in bed comfortably, not in acute distress HEENT: no pallor, anicteric, moist mucous membrane CV: normal heart sounds, normal rate and rhythm, no murmurs Chest: lungs clear to auscultation b/l, no wheezes and crackles Abdomen: soft, non tender, non distended, +BS Extremities: no edema, no cyanosis Skin: warm, dry, intact Neuro: alert, answering questions, face symmetrical, facial sensation intact, tongue midline, symmetrical b/l shoulder shrug, motor 5/5, sensation intact, EOMI, hard of hearing Psych: normal mood and affect Unchanged physical exam Peripheral Line Right Antecubital (Active) Number of days: 4 STUDIES: Encounter Orders Labs and other studies reviewed with pertinent findings noted below: Latest Reference Range & Units 11/09/23 06:42 Sodium 135 - 146 mmol/L 137 Potassium 3.5 - 5.1 mmol/L 4.7 Chloride 98 - 107 mmol/L 103 CO2 22 - 32 mmol/L 25 BUN 6 - 20 mg/dL 19 Creatinine 0.6 - 1.2 mg/dL 1.3 (H) Estimated Glomerular Filtration Rate >=60 mL/min 66 Anion Gap 7 - 15 mmol/L 9 Glucose 70 - 120 mg/dL 105 Calcium 8.4 - 10.2 mg/dL 9.1 Magnesium 1.5 - 2.6 mg/dL 2.1 Phosphorus 2.5 - 4.8 mg/dL 3.9 (H): Data is abnormally high Assessment and Plan IMPRESSION : Principal Problem: Brain tumor (HCC) Active Problems: Coronary artery disease without angina pectoris HTN, goal below 140/90 Dyslipidemia, goal LDL below 100 Venous insufficiency Class 3 severe obesity due to excess calories with serious comorbidity and body mass index (BMI) of40.0 to 44.9 in adult (HCC) ALEKSANDR (obstructive sleep apnea) Brain mass Resolved Problems: * No resolved hospital problems. 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 Neurosurgery recommend resection Patient at baseline is able to walk miles without any symptoms at home, independent and functional.Does not use O2, asymptomatic currently other than headache, difficulty with reading and comprehension. No cardiopulmonary symptoms currently. TTE 11/07 showed normal EF and no wma. Has CAD s/p stent in 2015. RCRI score is 1 suggesting 6% 30 day risk of , TN or cardiac arrest ANGELES periop risk suggesting 1% risk of TN or cardiac arrest, intra-op or up to 30 days post op ARISCAT score: 26 points which suggests intermediate risk, 13.3% risk of in hospital post op pulmonary complications Neurosurgery following appreciate recs Neurosurgery recommend surgical resection tentative plan for surgery 11/10/23 No need for AED and no need for steroid at this time per neurosurgery CT chest/abd/pelvis did not show concerns for metastasis NPO after 2400 except meds Hold DVT ppx tomorrow, okay for chemical dvt ppx for now per Neurosurgery Q4H neurocheck Tylenol PRN for headache Oncology following and appreciate recs Radiation oncology following and appreciate recs PT/OT and speech consult Cr slightly elevated no JAMES, gentle IVF at 50ml/hr x10 hrs, hold lisinopril dose 11/10/23, check BMPin am , bladder scan PRN HTN Hold COMPUTER ENGINEERING PROFESSOR lisinopril 11/10/23 Consider alternative antihypertensive if hypertensive and concerns for worsening JAMES Hx of CAD Continue COMPUTER ENGINEERING PROFESSOR BB Did not tolerate statin in past, will need discussion with cardiology about alternative meds Hold COMPUTER ENGINEERING PROFESSOR aspirin per neurosurgery in anticipation of surgery, resume sooner post op when okay per neurosurgery Tele ALEKSANDR COMPUTER ENGINEERING PROFESSOR CPAP HS Hx of rosacea COMPUTER ENGINEERING PROFESSOR doxycycline PHARMACOLOGIC VTE PROPHYLAXIS: hEParin CODE STATUS: Full Code EXPECTED DISCHARGE DATE: 11/12/2023 I spent a total of 45 minutes coordinating, documenting, and providing care for this patient excluding time spent in the performance of separately billed services. * Tomás Dowell MD - 11/09/2023 6:29 AM EST NEUROLOGICAL SURGERY PROGRESS NOTE [address] [address] Name: eRmy Lujan [place] [facility] Date: 11/09/2023 Time: 6:29 AM Hospital day number: 4 SUBJECTIVE: NAEO OBJECTIVE: Vital signs over last 24 hours: BP: 143 mmHg/65 mmHg (11/09/23603) Most Recent Systolic BP Av.5 mmHg Min: 108 mmHg Max: 147 mmHg Pulse: 65 (11/09/23603) 1 degree AV Block;NSR (11/08/232308) Pulse Av.3 Min: 56 Max: 75 Temperature: 36.72 C (11/09/23603) Most Recent Temperature Av.3 C Min: 36 C Max: 36.72 C Respirations: 18 (11/09/23603) Resp Av Min: 18 Max: 18 SpO2: 97 % (11/09/23603) SpO2 Av.2 % Min: 95 % Max: 99 % ICP: No data recorded CPP: No data recorded Input/Output: (last 24 hours) Intake/Output Summary (Last 24 hours) at 11/09/2023628 Last data filed at 11/08/20231999 Gross per 24 hour Intake 240 ml Output 1 ml Net 239 ml PHYSICAL EXAM: Awake, alert, oriented to person, place, time Resting comfortably in bed No acute distress Neurologic Examination [place] Coma Scale (GCS): Eyes Open: 4 = spontaneous Best Verbal Response: 5 = verbally appropriate for age Best Motor Response: 6 = obeys commands appropriate for age Coma Score: 15 PERRL EOMI No facial droop MASTERS to command RUE 5/5 LUE 5/5 RLE 5/5 LLE 5/5 Sensation grossly intact No pronator drift Mild mixed aphasia No visual field abnormalities Labs: Recent Results (from the past 24 hour(s)) BASIC METABOLIC PANEL Collection Time: 11/08/23 7:24 AM Result Value Ref Range BUN 17 6 - 20 mg/dL Creatinine 1.2 0.6 - 1.2 mg/dL Estimated Glomerular Filtration Rate 74 >=60 mL/min Sodium 138 135 - 146 mmol/L Potassium 4.2 3.5 - 5.1 mmol/L Chloride 105 98 - 107 mmol/L CO2 24 22 - 32 mmol/L Anion Gap 9 7 - 15 mmol/L Glucose 104 70 - 120 mg/dL Calcium 8.9 8.4 - 10.2 mg/dL MAGNESIUM Collection Time: 11/08/23 7:24 AM Result Value Ref Range Magnesium 2.3 1.5 - 2.6 mg/dL PHOSPHORUS Collection Time: 11/08/23 7:24 AM Result Value Ref Range Phosphorus 3.7 2.5 - 4.8 mg/dL Imaging studies: CT CAP - negative MRIb - Left temporal-occipital junction lesion concerning for high grade glioma IMPRESSION: Remy Lujan is a 58 year old male patient with a newly diagnosed left posterior temporal lesion, presenting with some paraphasic errors and inability to read. Otherwise no neurologic deficits andspeech function is quite good despite some minor problems. Will need resection and will obtain further imaging for planning purposes. Problem list: Principal Problem: Brain tumor (HCC) Active Problems: Coronary artery disease without angina pectoris HTN, goal below 140/90 Dyslipidemia, goal LDL below 100 Venous insufficiency Class 3 severe obesity due to excess calories with serious comorbidity and body mass index (BMI) of40.0 to 44.9 in adult (HCC) ALEKSANDR (obstructive sleep apnea) Brain mass Resolved Problems: * No resolved hospital problems. * PLAN: Plan for OR 09/09-pt consented NPO at midnight prior to OR Hold SQH dvt ppx after 2200 dose tonight q4 hour neuro checks, vitals MRI brain w/wo contrast brainlab protocol with DTI completed Ok for OOB for meals Daily showers DVT ppx with SQH/TEDs/SCDs Medical risk stratification and optimization; appreciate medicine consult PT/OT, speech therapy evals Discussed with Dr. Ornelas Associated attestation - Matteo Ornelas III, MD - 11/09/2023 6:42 AM EST I saw and evaluated the patient today. I have reviewed the trainee note and agree. * Axel Lazo MD - 11/08/2023 10:13 AM EST Images from the original note were not included. [facility] A471/A INTERVAL HISTORY: OVERNIGHT: no acute events SUBJECTIVE: Patient seen and examined at bedside No new symptoms Denies significant headache No new weakness, no chest pain, palpitations, vision changes Objective Physical Exam Most Recent Vital Signs: BP: 140 mmHg/74 mmHg (11/08/23 0810) Pulse: 69 (11/08/23 0810) Temp: 35.89 C (11/08/23620) Temp Summary: Temp Min: 35.9 C (96.6 F) Max: 36.5 C (97.7 F) SpO2: 96 % (11/08/23620) O2 flow rate: 0 L/MIN (11/08/23620) Supplemental O2 Delivery: Room Air, None (11/08/23620) BP 140/74 | Pulse 69 | Temp 35.9 C (96.6 F) (Tympanic) | Resp 18 | Ht 1.88 m (6' 2") | Wt (!) 147 kg (324 lb) | SpO2 96% | BMI 41.60 kg/m | BSA 2.77 m Constitutional: Patient lying in bed comfortably, not in acute distress HEENT: no pallor, anicteric, moist mucous membrane CV: normal heart sounds, normal rate and rhythm, no murmurs Chest: lungs clear to auscultation b/l, no wheezes and crackles Abdomen: soft, non tender, non distended, +BS Extremities: no edema, no cyanosis Skin: warm, dry, intact Neuro: alert, answering questions, face symmetrical, facial sensation intact, tongue midline, symmetrical b/l shoulder shrug, motor 5/5, sensation intact, EOMI, hard of hearing Psych: normal mood and affect Peripheral Line Right Antecubital (Active) Number of days: 3 STUDIES: Encounter Orders Labs and other studies reviewed with pertinent findings noted below: Latest Reference Range & Units 11/08/23 07:24 Sodium 135 - 146 mmol/L 138 Potassium 3.5 - 5.1 mmol/L 4.2 Chloride 98 - 107 mmol/L 105 CO2 22 - 32 mmol/L 24 BUN 6 - 20 mg/dL 17 Creatinine 0.6 - 1.2 mg/dL 1.2 Estimated Glomerular Filtration Rate >=60 mL/min 74 Anion Gap 7 - 15 mmol/L 9 Glucose 70 - 120 mg/dL 104 Calcium 8.4 - 10.2 mg/dL 8.9 Magnesium 1.5 - 2.6 mg/dL 2.3 Phosphorus 2.5 - 4.8 mg/dL 3.7 Assessment and Plan IMPRESSION : Principal Problem: Brain tumor (HCC) Active Problems: Coronary artery disease without angina pectoris HTN, goal below 140/90 Dyslipidemia, goal LDL below 100 Venous insufficiency Class 3 severe obesity due to excess calories with serious comorbidity and body mass index (BMI) of40.0 to 44.9 in adult (HCC) ALEKSANDR (obstructive sleep apnea) Resolved Problems: * No resolved hospital problems. 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 Neurosurgery recommend resection Patient at baseline is able to walk miles without any symptoms at home, independent and functional.Does not use O2, asymptomatic currently other than headache, difficulty with reading and comprehension. No cardiopulmonary symptoms currently. TTE 11/07 showed normal EF and no wma. Has CAD s/p stent in 2015. RCRI score is 1 suggesting 6% 30 day risk of , TN or cardiac arrest ANGELES periop risk suggesting 1% risk of TN or cardiac arrest, intra-op or up to 30 days post op ARISCAT score: 26 points which suggests intermediate risk, 13.3% risk of in hospital post op pulmonary complications Neurosurgery following appreciate recs Neurosurgery recommend surgical resection tentative plan for surgery 11/10/23 No need for AED and no need for steroid at this time per neurosurgery CT chest/abd/pelvis did not show concerns for metastasis NPO after 2400 except meds Wednesday midnight Hold DVT ppx day of surgery, okay for chemical dvt ppx for now per Neurosurgery Q4H neurocheck Tylenol PRN for headache Oncology following and appreciate recs Radiation oncology consult PT/OT and speech consult HTN COMPUTER ENGINEERING PROFESSOR lisinopril Hx of CAD Continue COMPUTER ENGINEERING PROFESSOR BB Did not tolerate statin in past, will need discussion with cardiology about alternative meds Hold COMPUTER ENGINEERING PROFESSOR aspirin per neurosurgery in anticipation of surgery, resume sooner post op when okay per neurosurgery Tele ALEKSANDR COMPUTER ENGINEERING PROFESSOR CPAP HS Hx of rosacea COMPUTER ENGINEERING PROFESSOR doxycycline PHARMACOLOGIC VTE PROPHYLAXIS: hEParin CODE STATUS: Full Code EXPECTED DISCHARGE DATE: 11/12/2023 I spent a total of 45 minutes coordinating, documenting, and providing care for this patient excluding time spent in the performance of separately billed services. * Tomás Dowell MD - 11/08/2023 7:27 AM EST NEUROLOGICAL SURGERY PROGRESS NOTE [address] [address] Name: Remy Lujan [place] [facility] [place]: 11/08/2023 Time: 7:27 AM Hospital day number: 3 SUBJECTIVE: NAEO OBJECTIVE: Vital signs over last 24 hours: BP: 129 mmHg/73 mmHg (11/08/23620) Most Recent Systolic BP Av.3 mmHg Min: 118 mmHg Max: 142 mmHg Pulse: 59 (11/08/23620) Pulse Av.2 Min: 59 Max: 71 Temperature: 35.89 C (11/08/23620) Most Recent Temperature Av.2 C Min: 35.89 C Max: 36.5 C Respirations: 18 (11/08/23620) Resp Av.3 Min: 16 Max: 18 SpO2: 96 % (11/08/23620) SpO2 Av.6 % Min: 96 % Max: 98 % ICP: No data recorded CPP: No data recorded Input/Output: (last 24 hours) Intake/Output Summary (Last 24 hours) at 11/08/2023 0727 Last data filed at 11/07/2023 1300 Gross per 24 hour Intake 840 ml Output -- Net 840 ml PHYSICAL EXAM: Awake, alert, oriented to person, place, time Resting comfortably in bed No acute distress Neurologic Examination Jonelle Coma Scale (GCS): Eyes Open: 4 = spontaneous Best Verbal Response: 5 = verbally appropriate for age Best Motor Response: 6 = obeys commands appropriate for age Coma Score: 15 PERRL EOMI No facial droop MASTERS to command RUE 5/5 LUE 5/5 RLE 5/5 LLE 5/5 Sensation grossly intact No pronator drift Very mild mixed aphasia with some paraphasic errors and difficulty with comprehension. Sometimes hard to differentiate from just hard of hearing baseline Labs: Recent Results (from the past 24 hour(s)) ECHO, COMPLETE (2D), TRANS-THORACIC Collection Time: 11/07/23 9:14 AM Result Value Ref Range LEFT VENTRICULAR EJECTION FRACTION 55 % Imaging studies: CT CAP - negative MRIb - Left temporal-occipital junction lesion concerning for high grade glioma IMPRESSION: Remy Lujan is a 58 year old male patient with a newly diagnosed left posterior temporal lesion, presenting with some paraphasic errors and inability to read. Otherwise no neurologic deficits andspeech function is quite good despite some minor problems. Will need resection and will obtain further imaging for planning purposes. Problem list: Principal Problem: Brain tumor (HCC) Active Problems: Coronary artery disease without angina pectoris HTN, goal below 140/90 Dyslipidemia, goal LDL below 100 Venous insufficiency Class 3 severe obesity due to excess calories with serious comorbidity and body mass index (BMI) of40.0 to 44.9 in adult (HCC) ALEKSANDR (obstructive sleep apnea) Resolved Problems: * No resolved hospital problems. * PLAN: Tentative plan for OR 09/09 NPO at midnight prior to OR q4 hour neuro checks, vitals MRI brain w/wo contrast brainlab protocol with DTI completed Ok for OOB for meals Daily showers DVT ppx with SQH/TEDs/SCDs Medical risk stratification and optimization; appreciate medicine consult PT/OT, speech therapy evals Discussed with Dr. Ornelas Associated attestation - Matteo Ornelas III, MD - 11/08/2023 8:23 AM EST I saw and evaluated the patient today. I have reviewed the trainee note and agree. * Axel Lazo MD - 11/07/2023 11:19 AM EST Images from the original note were not included. [facility] INTERVAL HISTORY: OVERNIGHT: no acute events SUBJECTIVE: Patient seen and examined at bedside No new symptoms Has mild headache He is happy he was able to drink coffee today which helped with headache No new weakness, no chest pain Objective Physical Exam Most Recent Vital Signs: BP: 142 mmHg/78 mmHg (11/07/231038) Pulse: 64 (11/07/231038) Temp: 36.11 C (11/07/231038) Temp Summary: Temp Min: 36.1 C (97 F) Max: 36.9 C (98.4 F) SpO2: 98 % (11/07/231038) O2 flow rate: 0 L/MIN (11/06/23 1507) Supplemental O2 Delivery: Room Air, None (11/07/231038) BP 142/78 | Pulse 64 | Temp 36.1 C (97 F) (Tympanic) | Resp 16 | Ht 1.88 m (6' 2") | Wt (!) 146.6 kg (323 lb 4.8 oz) | SpO2 98% | BMI 41.51 kg/m | BSA 2.77 m Constitutional: Patient lying in bed comfortably, not in acute distress HEENT: no pallor, anicteric, moist mucous membrane CV: normal heart sounds, normal rate and rhythm, no murmurs Chest: lungs clear to auscultation b/l, no wheezes and crackles Abdomen: soft, non tender, non distended, +BS Extremities: no edema, no cyanosis Skin: warm, dry, intact Neuro: alert, answering questions, face symmetrical, facial sensation intact, tongue midline, symmetrical b/l shoulder shrug, motor 5/5, sensation intact, EOMI, hard of hearing Psych: normal mood and affect Peripheral Line Right Antecubital (Active) Number of days: 2 STUDIES: Encounter Orders Labs and other studies reviewed with pertinent findings noted below: Latest Reference Range & Units 11/07/23 07:19 Sodium 135 - 146 mmol/L 140 Potassium 3.5 - 5.1 mmol/L 4.2 Chloride 98 - 107 mmol/L 104 CO2 22 - 32 mmol/L 25 BUN 6 - 20 mg/dL 14 Creatinine 0.6 - 1.2 mg/dL 1.1 Estimated Glomerular Filtration Rate >=60 mL/min 79 Anion Gap 7 - 15 mmol/L 11 Glucose 70 - 120 mg/dL 115 Calcium 8.4 - 10.2 mg/dL 9.0 Magnesium 1.5 - 2.6 mg/dL 2.2 Phosphorus 2.5 - 4.8 mg/dL 3.2 CBC Rpt WBC 4.00 - 10.80 K/uL 5.93 HGB 14.0 - 16.8 g/dL 14.7 HCT 40.0 - 48.4 % 43.6 MCV 82.0 - 99.5 fL 91.8 PLT 140 - 400 K/uL 233 Rpt: View report in Results Review for more information TTE Interpretation Summary The examination is adequate to evaluate the referral indication. The qualitative LV ejection fraction is 55-59% (normal). No LV segmental wall motion abnormalities. The right ventricular systolic function is qualitatively normal. No significant valvular disease is present. MRI brain wo contrast 11/06/23 IMPRESSION IMPRESSION Localizing exam demonstrating large mass in the left temporoparietal junction, 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. Assessment and Plan IMPRESSION : Principal Problem: Brain tumor (HCC) Active Problems: Coronary artery disease without angina pectoris HTN, goal below 140/90 Dyslipidemia, goal LDL below 100 Venous insufficiency Class 3 severe obesity due to excess calories with serious comorbidity and body mass index (BMI) of40.0 to 44.9 in adult (HCC) ALEKSANDR (obstructive sleep apnea) Resolved Problems: * No resolved hospital problems. 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 Neurosurgery recommend resection Patient at baseline is able to walk miles without any symptoms at home, independent and functional.Does not use O2, asymptomatic currently other than headache, difficulty with reading and comprehension. No cardiopulmonary symptoms currently. TTE 11/07 showed normal EF and no wma. Has CAD s/p stent in 2015. RCRI score is 1 suggesting 6% 30 day risk of , TN or cardiac arrest ANGELES periop risk suggesting 1% risk of TN or cardiac arrest, intra-op or up to 30 days post op ARISCAT score: 26 points which suggests intermediate risk, 13.3% risk of in hospital post op pulmonary complications Neurosurgery following appreciate recs Neurosurgery recommend surgical resection No need for AED and no need for steroid at this time per neurosurgery CT chest/abd/pelvis did not show concerns for metastasis NPO after 2400 except meds Hold DVT ppx tomorrow, okay for chemical dvt ppx and diet today per Neurosurgery Q4H neurocheck Tylenol PRN for headache Oncology following and appreciate recs 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 * Axel Lazo MD - 11/06/2023 4:17 PM EST Images from the original note were not included. [facility] A471/A INTERVAL HISTORY: OVERNIGHT: no acute events SUBJECTIVE: Patient seen and examined at bedside Patient and significant other at bedside. Patient hard of hearing. Currently c/o headache over frontal and parietal area. No vision changes, weakness, numbness, swallowing difficulty. Endorsing difficulty reading and comprehension Denies chest pain, dyspnea, dizziness, nausea, vomiting, dysuria, diarrhea Saturating 95% on RA He is able to walk miles without any symptoms at baseline Does not use O2 at home Patient and significant other apprehensive with new finding of brain tumor. Empathetic support and listening provided Objective Physical Exam Most Recent Vital Signs: BP: 149 mmHg/67 mmHg (11/06/23 1507) Pulse: 72 (11/06/23 1507) Temp: 36.89 C (11/06/23 1507) Temp Summary: Temp Min: 35.9 C (96.6 F) Max: 36.9 C (98.4 F) SpO2: 95 % (11/06/23 1507) O2 flow rate: 0 L/MIN (11/06/23 1507) Supplemental O2 Delivery: Room Air, None (11/06/23 1507) BP 149/67 | Pulse 72 | Temp 36.9 C (98.4 F) (Tympanic) | Resp 18 | Ht 1.88 m (6' 2") | Wt (!) 146.2 kg (322 lb 6.4 oz) | SpO2 95% | BMI 41.39 kg/m | BSA 2.76 m Constitutional: Patient sitting in bed comfortably, not in acute distress HEENT: no pallor, anicteric, moist mucous membrane CV: normal heart sounds, normal rate and rhythm, no murmurs Chest: lungs clear to auscultation b/l, no wheezes and crackles Abdomen: soft, non tender, non distended, +BS Extremities: no edema, no cyanosis Skin: warm, dry, intact Neuro: alert, oriented to person, place, and time, face symmetrical, facial sensation intact, tongue midline, symmetrical b/l shoulder shrug, motor 5/5, sensation intact, EOMI, hard of hearing Psych: normal mood and affect Peripheral Line Right Antecubital (Active) Number of days: 1 STUDIES: Encounter Orders Labs and other studies reviewed with pertinent findings noted below: Latest Reference Range & Units 11/06/23 01:08 Sodium 135 - 146 mmol/L 137 Potassium 3.5 - 5.1 mmol/L 3.9 Chloride 98 - 107 mmol/L 102 CO2 22 - 32 mmol/L 24 BUN 6 - 20 mg/dL 18 Creatinine 0.6 - 1.2 mg/dL 1.1 Estimated Glomerular Filtration Rate >=60 mL/min 80 Anion Gap 7 - 15 mmol/L 11 Glucose 70 - 120 mg/dL 127 (H) Calcium 8.4 - 10.2 mg/dL 9.0 Magnesium 1.5 - 2.6 mg/dL 2.1 Phosphorus 2.5 - 4.8 mg/dL 3.8 Protein 6.0 - 8.3 g/dL 6.4 CBC Rpt WBC 4.00 - 10.80 K/uL 8.34 HGB 14.0 - 16.8 g/dL 15.0 HCT 40.0 - 48.4 % 44.0 MCV 82.0 - 99.5 fL 90.5 PLT 140 - 400 K/uL 272 CRP (Inflammatory Marker) <=5 mg/L 3 ESR <20 mm/hour 15 Albumin 3.8 - 5.0 g/dL 3.9 AST 10 - 50 U/L 22 ALT 10 - 50 U/L 30 Alkaline Phosphatase 35 - 130 U/L 80 Bilirubin, Total <=1.2 mg/dL 0.2 (H): Data is abnormally high Rpt: View report in Results Review for more information CT chest/abd/pelvis IMPRESSION IMPRESSION No evidence malignancy or metastases in the chest, abdomen, or pelvis MRI brain w wo contrast IMPRESSION IMPRESSION Findings concerning for high-grade ADDICTION NURSE tumor centered in the left temporal- occipital junction, probably glioblastoma. Please see details above. Assessment and Plan IMPRESSION : Principal Problem: Brain tumor (HCC) Active Problems: Coronary artery disease without angina pectoris HTN, goal below 140/90 Dyslipidemia, goal LDL below 100 Venous insufficiency Class 3 severe obesity due to excess calories with serious comorbidity and body mass index (BMI) of40.0 to 44.9 in adult (HCC) ALEKSANDR (obstructive sleep apnea) Resolved Problems: * No resolved hospital problems. 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 Neurosurgery recommend reectiontion pending further imaging for planning. Patient at baseline is able to walk miles without any symptoms at home, independent and functional.Does not use O2, asymptomatic currently other than headache, difficulty with reading and comprehension. No cardiopulmonary symptoms currently. TTE showed lower normal EF 49% in 2017. Has CAD s/p stent in 2015. RCRI score is 1 suggesting 6% 30 day risk of , TN or cardiac arrest(will repeat TTE RCRI scoremight change pending TTE eval) ANGELES periop risk 1% risk of TN or cardiac arrest, intra-op or up to 30 days post op ARISCAT score: will calculate awaiting recs about duration of surgery from neurosurgery Neurosurgery following appreciate recs Pending MRI brain w/wo contrast brain lab protocol with DTI and consider fMRI for speech mapping per neurosurgery. 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 documented in this encounter H&P Notes * Cody Swenson CRNP - 11/05/2023 11:45 PM EST HISTORY AND PHYSICAL EXAMINATION - Hospital Medicine [address] [address] Name: Remy Lujan [place] [facility]: 11/05/2023 Time: 11:46 PM PRESENTING PROBLEM: MRI with "Findings concerning for high-grade ADDICTION NURSE tumor centered in the left temporal-occipital junction, probably glioblastoma " HPI: Remy Lujan is a 58 year old male with hypertension, CAD, Dyslipidemia, ALEKSANDR, Ischemic cardiomyopathy presents as a transfer from [facility] as Imaging showed a new brain tumor on MRI from 11/05/2023. Onset around , patient states he had started taking Wegovy when he noticed that he was beginning to have issues with reading/comprehension, he endorses he thought this was initially just a side effect of the medication howeverin September he noted that he can not read, assessments show he can see the letters but does not appear to be processing words. Also endorses chronic headache over the last 2 months that he typically treats with OTC Tylenol or Motrin. Denies fever, chills, facial droop, stuttering, drooling, cough, dysuria, hematuria, abdominal pain, nausea, vomiting, diarrhea, CP, SOB, melena or other associated symptoms. PAST MEDICAL HISTORY: Past Medical History: Diagnosis Date CAD (coronary artery disease) CxOM3 BMS 08/16/15 HTN, goal below 140/80 Hx of tobacco use, presenting hazards to health PAST SURGICAL HISTORY: Past Surgical History: Procedure Laterality Date COLONOSCOPY, DIAGNOSTIC (RECTUM) N/A 09/01/2016 normal biopsy/recall 10 years/COLONOSCOPY FLEXIBLE PROXIMAL DIAGNOSTIC performed by Dominik Herrera MD at [facility] CORONARY ANGIOGRAPHY W/LEFT HEART CATH Right 08/16/2015 CORONARY ANGIOGRAPHY W/LEFT HEART CATH performed by Joel Brambila MD at [facility] REMOVE TONSILS & ADENOIDS, UNDER 12 FAMILY HISTORY: No significant family history noted SOCIAL HISTORY: Social History Tobacco Use Smoking status: Former Current packs/day: 0.00 Average packs/day: 1.5 packs/day for 15.0 years (22.5 ttl pk-yrs) Types: Cigarettes Start date: 08/16/2000 Quit date: 08/16/2015 Years since quittin.2 Passive exposure: Never Smokeless tobacco: Former Types: Snuff Tobacco comments: smokes cigar occas Vaping Use Vaping Use: Never used Substance Use Topics Alcohol use: Yes Comment: weekly Drug use: No COMPUTER ENGINEERING PROFESSOR Medications: Prior to admission medications have been reviewed. ALLERGIES: Patient has no known allergies. ROS: As per HPI, all other systems reviewed and negative PHYSICAL EXAMINATION: Most Recent Vital Signs: BP: 142 mmHg/85 mmHg (11/05/232211) Pulse: 101 (11/05/232211) Temp: 36.39 C (11/05/232211) Temp Summary: Temp Min: 36.4 C (97.5 F) Max: 36.4 C (97.5 F) SpO2: 94 % (11/05/232211) O2 flow rate: Supplemental O2 Delivery: Room Air, None (11/05/232229) Constitutional: No Apparent distress obese HEENT: normocephalic, atraumatic; no masses, tenderness, or adenopathy Eyes: PERRLA, sclera and conjunctiva normal Neck: supple, normal range of motion CV: Tachycardia and Normal Rhythm, no murmur, gallops or rub Chest: normal respiratory effort, lungs clear to auscultation Abdomen: normal: soft, bowel sounds normal, no masses, tenderness or organomegaly Musculoskeletal: (-) negative Extremities: no clubbing, cyanosis, or edema, otherwise grossly normal, warm, and dry Skin: warm, dry, intact: Neuro: alert, oriented to person, place, and time, normal mental status exam Psych: normal mood and affect, nonsuicidal, judgement normal, memory normal LABS: Labs reviewed as indicated below: Latest Reference Range & Units 11/04/23 13:05 11/05/23 13:48 Triglycerides <=174 mg/dL 237 (H) Cholesterol <200 mg/dL 246 (H) Non-HDL Cholesterol <=159 mg/dL 200 (H) HDL Cholesterol >39 mg/dL 46 LDL Cholesterol <=129 mg/dL 153 (H) MRI BRAIN W WO CONTRAST Rpt (H): Data is abnormally high Rpt: View report in Results Review for more information IMAGING: MRI BRAIN W WO CONTRAST Result Date: 11/05/2023 IMPRESSION Findings concerning for high-grade ADDICTION NURSE tumor centered in the left temporal-occipital junction, probably glioblastoma. Please see details above. Critical results were communicated via secure text messaging to Dr Nicole Gramajo at 0210. IMPRESSION and PLAN: Principal Problem: Brain tumor (HCC) (POA: Yes) Active Problems: Coronary artery disease without angina pectoris (POA: Yes) HTN, goal below 140/90 (POA: Yes) Dyslipidemia, goal LDL below 100 (POA: Yes) Venous insufficiency (POA: Yes) ALEKSANDR (obstructive sleep apnea) (POA: Yes) Resolved Problems: * No resolved hospital problems. * POA = Present On Admission PROBLEM BASED ASSESSMENT WITH DIFFERENTIAL: Brain tumor Consult to Oncology Consult to Neurosurgery Q.[address] c/a/p rule out metastatic disease Check esr/crp Coronary artery disease without angina pectoris HTN, goal below 140/90 BP well controlled on arrival continue home regimen Obesity Body mass index is 41.39 kg/m. obesity complicates all aspects of disease management from diagnostic modalities to treatment. Weight loss encouraged and health benefits explained to patient. ALEKSANDR (obstructive sleep apnea) CPAP q.h.s. Diet: NPO at 2400 DVT PPx: SCD's Anticipated Date of Discharge: 2 days or more Primary Contact: patient CODE STATUS ON ADMISSION: Full Code This patient was discussed with Bernardo Polk at the time of admission. I spent a total of 76 minutes coordinating, documenting, and providing care for this patient excluding time spent in the performance of separately billed services. [facility] Department of Hospital Medicine [facility] Associated attestation - Bernardo Cagle MD - 11/07/2023 12:22 AM EST I have reviewed the advanced practitioner's documentation on the date of service referenced in note, and I agree with, and take responsibility for the plan of care. I spent a total of 36 minutes coordinating, documenting, and providing care for this patient excluding time spent in the performance of separately billed services or time spent by another provider/QHP. documented in this encounter Procedure Notes * Bettye Lucas MD - 11/10/2023 2:47 PM EST INTRAOPERATIVE NEUROPHYSIOLOGIC MONITORING (IONM) REPORT Date of study: 11/10/2023 Patient name: Remy Lujan MR#: [id number] : 1965 Age: [age] year old Surgeon: Dr. Ornelas [place] [facility] [place] Monitored in real time by neurophysiologist prof remote >1 case/hr 16888: 2 hours Monitorist/Technologist time: 16 units (15 min/unit) IONM technologist in OR with patient: 1114 Intubation: 1129 Incision: 1231 Completed closing/monitorin PURPOSE FOR MONITORING: Per the operative report, intraoperative neurophysiologic monitoring was performed for: Left temporal craniotomy for tumor resection MONITORING MODALITIES AND EQUIPMENT: Somatosensory evoked responses (SSEPs) were evoked by electrical stimulation of the median nerves at both wrists and the tibial nerves at both ankles. EEG was performed continuously using a double distance bipolar montage according to the standard 10-20 International System of Electrode Placement allowing for adjustment of electrodes to accommodatethe craniotomy incision and draping. EEG was visually analyzed in the following montage: Fp1-T7, T7-O1; Fp1-C3', C3'-O1; Fp2-T8,T8-O2; Fp2-C4' C4'-O2. Transcranial (anodal) and subcortical (cathodal) short-train electric motor- evoked potentials (TcMEP, scMEP) were performed with subdermal stainless steel recording electrodes in the contralateral (right) trapezius-deltoid (TRAP-DEL), flexor carpi radialis (FCR-FCR), thenar-hypothenar (APB-ADM), quadriceps (QD- QD), tibialis anterior (TA-TA), and abductor hallucis (AH-AH) muscles, and in the ipsilateral (left) APB-ADM, and AH-AH muscles. The [employer] stimulator was used. The [employer] evoked-potential machine was employed. ANESTHESIA: Anesthesia with propofol and remifentanil was carried out. Sevoflurane was used during closing. DESCRIPTION OF THE RECORD: Upper Extremity SSEP baseline postincision values: In response to stimulation of the left upper extremity, N20 was seen at an absolute latency of 22.5 msec. The amplitude of the N20-P22 complex was 1.62 microvolts. In response to stimulation of the right upper extremity, N20 was seen at an absolute latency of 22.5 msec. The amplitude of the N20-P22 complex was 1.66 microvolts. Surgeon was notified that bilateral upper extremity SSEPs were satisfactory for monitoring at baseline. Surgeon acknowledged. Lower Extremity SSEP baseline postincision values: In response to stimulation of the left lower extremity, P40 was seen at an absolute latency of 45.7 msec. The amplitude of the P40-N1 complex was 1.07 microvolts. In response to stimulation of the right lower extremity, P40 was seen at an absolute latency of 45.7 msec. The amplitude of the P40-N1 complex was 0.58 microvolts. Surgeon was notified that bilateral lower extremity SSEPs were satisfactory for monitoring at baseline. Surgeon acknowledged. TcMEP: Constant voltage stimulation was used with stimulus intensity adjusted to avoid co-activation of the ipsilateral side. The surgeon was notified that TcMEPs were elicited from all muscle groups monitored and the response amplitudes were satisfactory for monitoring. Surgeon acknowledged. Throughout the tracing, repetitive [id number] stimulation was carried out to monitor the neuromuscular junction. EEG: Baseline EEG prior to induction showed no focal or lateralized slowing or epileptiform discharges. Subcortical electric motor evoked potentials (scMEP): Left hemispheric subcortical monopolar electric stimulation of motor pathways was performed. Stimulus intensities of 10 mA were used to stimulate around the tumor margins. Dr. Ornelas was advised and acknowledged the presence or absence of motor response and corresponding stimulus intensity at each selected site. ALERTS: No alerts were required during the procedure. Please refer to the IONM event log scanned into the electronic medical record for additional details. SUMMARY: No significant surgically-related changes were seen in the upper extremity SSEPs. No significant surgically-related changes were seen in the lower extremity SSEPs. No significant surgically-related changes were seen in the TceMEP responses. Left hemispheric subcortical monopolar electric stimulation findings as noted above. No afterdischarges nor seizure activity noted on scalp EEG during electrical stimulation of the brain. No complications secondary to IONM to report. Bettye Lucas MD [place] [facility] [address] [address] documented in this encounter Consult Notes * Prema Gracia MD - 11/12/2023 12:34 PM ESTAssociated Order(s): PALLIATIVE MEDICINE CONSULT IP CONSULT NOTE - Palliative Medicine [facility] [id number] Name: Remy Lujan [place] [facility] A471/A Date: 11/12/2023 Time: 12:34 PM REQUESTING SERVICE: General Internal Medicine REASON FOR CONSULT: We have been asked to see this patient for goals of care. HPI: "Remy Lujan is a 58 year old male with hypertension, CAD, Dyslipidemia, ALEKSANDR, Ischemic cardiomyopathy presents as a transfer from [facility] as Imaging showed a new brain tumor on MRI from 11/05/2023. Onset around [place], patient states he had started taking Wegovy when he noticed that he was beginning to have issues with reading/comprehension, he endorses he thought this was initially just a side effect of the medication however in September he noted that he can not read, assessments show he can see the letters but does not appear to be processing words. Also endorses chronic headache over the last 2 months that he typically treats with OTC Tylenol or Motrin. Denies fever, chills, facial droop, stuttering, drooling, cough, dysuria, hematuria, abdominal pain, nausea, vomiting, diarrhea, CP, SOB, melena or other associated symptoms." This note was copy/pasted from Dr. Swenson / Dr. Cagle, dated on 11/05/2023. PALLIATIVE ENCOUNTER FROM TODAY'S VISIT: 11/12/2023 patient evaluated at bedside, friend Candi present. I have reviewed patient's past medical history including events precipitating hospitalization. Patient's friend Candi shares that [place] alone, [place]" in a [place]. He has no family in the area, he has a stepdaughter that lives in [place]. Previous to August he was relatively well. Around [place] time he developed issues with cognitive functioning with progressive cognitive and functional decline since that time that has worsened over the past 2-3 weeks. Hehas difficulty reading / telling time and communicating with trouble with word finding. He lives athome alone and has been able to walk however he has been experiencing poor balance. He complains ofsevere uncontrolled left- sided headache/pain at operative site s/p craniotomy. Patient reports thathis current opioid regimen is not allowing for well-controlled pain in the hospital. He feels frustrated that he has to ask for pain medication. He feels that the pain becomes uncontrolled before he receives his next dose of medication. Feels that the medication works for a very short period of time with worsening / uncontrolled pain before getting the next dose of medicine. Patient / friend reports that he has trouble finding his words that this gets worse when he has more pain. He also has little appetite due to the pain but denies nausea/vomiting. He is very worried about where he will live when he is discharged from the hospital. This makes himagitated. At discharge he is unable to reside with friend Candi.Friend Canid reports that she does not feel he is safe to return to live by himself. He has an underlying heart condition and prior to hospitalization he had lost his ability to read and tell time and couldn't regulate his medications at home / remember when to take his medications. REVIEW OF SYMPTOMS: [Severity scale of each symptom should be based on how the patient feels now.] 1. Pain Assessment: yes - headache / pain at surgical site Current Analgesic Regimen: IV hydromorphone, IV morphine, oral oxycodone, acetaminophen 2. Shortness of Breath Assessment: None Current Regimen: None 3. Nausea Assessment: None Current Regimen: Yes: 5-HT3 antagonists: Ondansetron 4. Tiredness/Fatigue Assessment: None Current Regimen: None 5. Drowsiness Assessment: None 6. Depression Assessment: 1. During the past month, has patient been bothered by feeling down, depressed, or hopeless? Did not ask 2. During the past month, has patient been bothered by having little interest or pleasure in doing things? Did not ask Current Regimen: wellbutrin 7. Anxiety Assessment: did not ask Current Regimen: wellbutrin 8. Anorexia/Lack of Appetite: yes Current Regimen: none 9. Delirium/Agitation: yes Current Regimen: none 10. Well-being Assessment: did not ask 11. Constipation Assessment: last 11/09 Current Regimen: Yes: Stool softener: Docusate 12. Insomnia Assessment: trouble sleeping due to pain Current Regimen: Yes: Melatonin 13. Oropharyngeal Secretions or Cough: No Current Regimen: Others: none Rest of the review of systems negative. FUNCTIONALITY: 60% - Ambulation: Reduced, Unable hobby/housework / Significant disease. Self-care: Occasional assistance necessary. Intake: Normal or reduced. Conscious level: Full or confusion. ADVANCED DIRECTIVES AND [place] ORDERS FOR LIFE-SUSTAINING TREATMENT: Yes: Not found in [facility] PAST MEDICAL HISTORY: Past Medical History: Diagnosis Date Bradycardia, sinus CAD (coronary artery disease) CxOM3 BMS 08/16/15 HTN, goal below 140/80 Hx of tobacco use, presenting hazards to health PAST SURGICAL HISTORY: Past Surgical History: Procedure Laterality Date COLONOSCOPY, DIAGNOSTIC (RECTUM) N/A 09/01/2016 normal biopsy/recall 10 years/COLONOSCOPY FLEXIBLE PROXIMAL DIAGNOSTIC performed by Dominik Herrera MD at OR [facility] CORONARY ANGIOGRAPHY W/LEFT HEART CATH Right 08/16/2015 CORONARY ANGIOGRAPHY W/LEFT HEART CATH performed by Joel Brambila MD at [facility] MICROSURGERY ADD-ON Left 11/10/2023 MICROSURGICAL SURGERY REQUIRING MICROSCOPE LISTED SEPARATELY performed by Matteo Ornelas III, MD at [place] [facility] REMOVE SUPRATENTORIAL BRAIN TUMOR Left 11/10/2023 CRANIOTOMY BONE FLAP EXCISION BRAIN TUMOR SUPRATENTORIAL performed by Matteo Ornelas III, [facility] REMOVE TONSILS & ADENOIDS, UNDER 12 STEREOTACTIC CRANIAL INTRADURAL NAVIGATION Left 11/10/2023 STEREOTACTIC CRANIAL INTRADURAL NAVIGATION performed by Matteo Ornelas III, MD at [place] [facility] FAMILY HISTORY: Family History Problem Relation Age of Onset Lung cancer Mother Stomach cancer Grandmother (Maternal) Family History: noncontributory SOCIAL HISTORY: Social History Tobacco Use Smoking [...] Yes Comment: weekly Drug use: No Family Support: friend Candi - primary PSYCHOSOCIAL ASSESSMENT: At times, I worry I will be a burden to my family: Other did not assess Pertinent Social Factors: lives independently ALLERGIES: Patient has no known allergies. PHYSICAL EXAMINATION: Most Recent Vital Signs: BP: 142 mmHg/68 mmHg (11/12/23 1018) Pulse: 86 (11/12/23 1018) Temp: 36.44 C (11/12/23 1018) Temp Summary: Temp Min: 36.4 C (97.5 F) Max: 36.8 C (98.2 F) SpO2: 94 % (11/12/23 1018) O2 flow rate: 0 L/MIN (11/12/23 0649) Supplemental O2 Delivery: Room Air, None (11/12/23 1018) Vital Signs Last 24 Hours: Systolic BP: Most Recent Systolic BP Av.5 mmHg Min: 128 mmHg Max: 142 mmHg Temperature: Most Recent Temperature Av.5 C Min: 36.39 C Max: 36.78 C Pulse: Pulse Av.2 Min: 76 Max: 86 Respirations: Resp Av.7 Min: 16 Max: 20 SpO2: SpO2 Av.8 % Min: 93 % Max: 98 % Constitutional: no acute distress HENT: normocephalic, dressing in place to surgical site Eyes: anicteric Neck: supple Chest: normal respiratory effort Abdominal: non distended Extremities: no clubbing, cyanosis, or edema, otherwise grossly normal, warm, and dry Musculoskeletal: (-) negative: no pain Skin: warm, dry, intact, to exposed areas of skin - surgical dressing clean/dry/intact Neuro: awake, agitated with expressive aphasia Psych: noted to be anxious and agitated LABS REVIEWED: yes Surgical pathology (tissue from brain) 11/10/2023 in process Negative lyme and RPR screen 10/25/2023 Negative mrsa 11/06/2023 Latest Reference Range & Units 11/10/23 06:56 11/10/23 13:50 11/11/23 06:38 11/12/23 07:07 CBC Rpt Rpt ! Rpt ! WBC 4.00 - 10.80 K/uL 6.45 12.74 (H) 12.96 (H) HGB 14.0 - 16.8 g/dL 14.1 13.7 (L) 13.0 (L) Hemoglobin i-STAT 14.0 - 16.8 g/dL 7.1 (L) HCT 40.0 - 48.4 % 42.6 40.9 39.1 (L) Hematocrit i-STAT 40 - 48 % 21 (LL) MCV 82.0 - 99.5 fL 91.8 93.0 92.2 PLT 140 - 400 K/uL 221 259 255 (LL): Data is critically low !: Data is abnormal (H): Data is abnormally high (L): Data is abnormally low Rpt: View report in Results Review for more information Latest Reference Range & Units 11/12/23 07:07 INR 0.8 - 1.2 1.2 Prothrombin Time 11.6 - 15.2 seconds 15.6 (H) (H): Data is abnormally high Latest Reference Range & Units 10/25/23 12:56 TSH 0.27 - 4.20 uIU/mL 1.77 Latest Reference Range & Units 11/06/23 01:08 Albumin 3.8 - 5.0 g/dL 3.9 AST 10 - 50 U/L 22 ALT 10 - 50 U/L 30 Alkaline Phosphatase 35 - 130 U/L 80 Bilirubin, Total <=1.2 mg/dL 0.2 Latest Reference Range & Units 11/08/23 07:24 11/09/23 06:42 11/10/23 06:56 11/10/23 13:50 11/10/23 15:43 11/10/23 20:27 11/11/23 06:38 11/12/23 07:07 Sodium 135 - 146 mmol/L 138 137 137 135 139 Potassium 3.5 - 5.1 mmol/L 4.2 4.7 4.2 4.3 4.3 Chloride 98 - 107 mmol/L 105 103 102 103 105 CO2 22 - 32 mmol/L 24 25 25 20 (L) 23 BUN 6 - 20 mg/dL 17 19 20 15 19 Creatinine 0.6 - 1.2 mg/dL 1.2 1.3 (H) 1.2 0.8 0.9 Estimated Glomerular Filtration Rate >=60 mL/min 74 66 69 >90 >90 Anion Gap 7 - 15 mmol/L 9 9 10 12 11 Glucose 70 - 120 mg/dL 104 105 102 138 (H) 125 (H) Calcium 8.4 - 10.2 mg/dL 8.9 9.1 8.7 8.7 8.7 Calcium Ionized i-STAT 1.13 - 1.32 mmol/L 0.63 (LL) Magnesium 1.5 - 2.6 mg/dL 2.3 2.1 2.2 2.3 2.2 Phosphorus 2.5 - 4.8 mg/dL 3.7 3.9 3.3 2.3 (L) 2.9 Potassium i-STAT 3.5 - 5.1 mmol/L <2.0 (LL) Potassium, Whole Blood 3.5 - 5.1 mmol/L 2.3 (LL) 4.3 Sodium i-STAT 135 - 146 mmol/L 150 (H) (LL): Data is critically low (L): Data is abnormally low (H): Data is abnormally high IMAGING REVIEWED: yes MRI brain / MRI neuro 3-d reconstruction 11/11/2023 FINDINGS Postoperative changes of left posterolateral craniotomy for resection of left temporal lobe tumor are noted with associated postsurgical blood products and pneumocephalus. Mild residual tumor is seensurrounding the resection cavity margins with known subependymal spread of tumor lining the left lateral ventricle and enhancing satellite lesions in the adjacent left parietal lobe. There is no evidence of territorial ischemic infarction, hydrocephalus, or extra-axial fluid collection. Small right frontal convexity meningioma again noted, measuring approximately 13 x 7 mm, without significant mass effect. IMPRESSION IMPRESSION 1. Expected postoperative changes following left temporal lobe tumor resection with mild residual tumor involving the resection cavity margins, multicentric left parietal enhancement/satellite lesions, and subependymal tumor spread. 2. Stable incidental small right frontal convexity meningioma. MRI brain / neuro 3-d 11/06 IMPRESSION Localizing exam demonstrating large mass in the left temporoparietal junction, 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. CT chest/abd/pelvis 11/06/2023 FINDINGS LINES AND DEVICES: None CHEST: LUNGS: Unremarkable LARGE AIRWAYS: Patent centrally. PLEURA: Unremarkable VESSELS: Mild atherosclerotic calcification of the coronary arteries and aorta. There is common origin of the brachiocephalic and left common carotid artery, an anatomic variant - "bovine arch". HEART: Normal in size. No pericardial effusion. MEDIASTINUM AND MICAH: Unremarkable CHEST WALL/SOFT TISSUES: Unremarkable ABDOMEN/PELVIS: LIVER: Unremarkable BILE DUCTS: Nondilated. GALLBLADDER: Unremarkable PANCREAS: Unremarkable SPLEEN: Unremarkable ADRENALS: Unremarkable KIDNEYS/URETERS: No hydronephrosis or hydroureter. BLADDER: Unremarkable BOWEL: Normal in caliber. Normal appendix. Colonic diverticulosis. LYMPH NODES: Unremarkable VESSELS: Aortoiliac atherosclerosis without aneurysmal dilation. Accessory bilateral renal arteries. REPRODUCTIVE ORGANS: Unremarkable PERITONEUM/RETROPERITONEUM: No free air, free fluid, or organized fluid collections. ABDOMINAL WALL/SOFT TISSUES: Prior umbilical hernia repair with mesh. BONES: No suspicious lesions. Degenerative changes in the spine. Transitional lumbosacral anatomy with a sacralized L5 vertebra. Mild retrolisthesis at L2-L3 and L3-L4. IMPRESSION IMPRESSION No evidence malignancy or metastases in the chest, abdomen, or pelvis. MRI brain 11/05/2023 IMPRESSION Findings concerning for high-grade ADDICTION NURSE tumor centered in the left temporal- occipital junction, probably glioblastoma. Please see details above. ASSESSMENT/PLAN: Remy Lujan is a/an 58 year old male referred for consultation to Palliative Medicine with the primary diagnosis of: Cancer: Non-Metastatic new L temporal- occipital junction mass concerning for high grade ADDICTION NURSE tumor (glioblastoma) s/p L temporal craniotomy 11/10 Secondary Diagnoses are CAD, ischemic cardiomyopathy, HTN, dyslipidemia, ALEKSANDR, venous insufficiency,adjustment disorder with depressed mood, hx meniere's disease, former smoker Palliative Care Encounter / Goals of Care Introduced Palliative Medicine team's role in patient care including involvement in symptom assessment / management that is related to serious illness or related to disease directed therapy. Reviewedour role as a consultative and supportive care service working along with patient's primary or specialty care teams. Patient is receptive to palliative services. Emotional support, empathetic listening and reassurance provided. Unable to have meaningful goals of care discussion at this time as pathology is pending with no formal diagnosis. Patient did state that quality of life is more important to him than quantity of life which includes finding a place to live in planning for discharge, and adequate control of pain during and following hospitalization. Recommend ongoing conversation to include care management to assist with discharge planning. Cancer Related Pain / Headache / Pain at surgical site / Postoperative pain Poor Appetite Pain uncontrolled and reports current prn opioid regimen is not allowing for lasting pain relief - reports breakthrough pain and feels frustrating having to wait and ask for medication for pain Pain causes agitation / anxiety / and worsening expressive aphasia / word finding Patient started on ER morphine regimen today - will assess pain response over the next 24 hours Recommend to continue ER morphine 15 mg q12 ATC Start PO morphine liquid solution 5 mg q4h as needed for moderate/severe breakthrough pain Continue to have naloxone available Stop IV hydromorphone/IV morphine and PO oxycodone - patient able to tolerate PO regimen and therefore should utilize po opioid regimen for pain May continue acetaminophen 975 q6h ATC OIC With initiation of ER morphine recommend miralax daily For now can continue colace 100 mg BID however stool softeners offer little benefit to OIC If patient develops OIC despite utility of miralax, consider addition of senna We appreciate your consult request and the opportunity to assist in the care of your patient. Please do not hesitate to call or page with additional questions or concerns. We will always try to remain available. I have reviewed the advanced practitioner's documentation on the date of service referenced in note, and I agree with, and take responsibility for the plan of care. I spent a total of 45 minutes coordinating, documenting, and providing care for this patient excluding time spent in the performance of separately billed services or time spent by another provider/QHP. Patient is status post craniotomy for what appears to be a glioblastoma multiforme. 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 He does have post craniotomy pain in the morphine is certainly reasonable and I would use it as the sustained release with morphine as needed. Finding a domicile for him as anissue since he lives a distance from [facility] in [place] and can not be left alone. This patient was seen and examined with Dr. Gracia at the time of consult. * Vitor Beltran OTR/L - 11/11/2023 11:59 AM ESTAssociated Order(s): ADULT OCCUPATIONAL THERAPY CONSULT IP GENERAL EVALUATION - Occupational Therapy [address] [address] Name: Remy Lujan [place] [facility] Date: 11/11/2023 Time: 12:05 PM Remy Lujan is a 58 year old male. Patient Status: Inpatient Insurance: Payor: [employer] Plan: [employer] Product Type: *No Product type* Payor: CC Plan: [facility] CARVEOUT Product Type: *No Product type* Payor: [facility] Plan: [facility] FAM[facility] PLAN OR-NE Product Type: *No Product type* Patient Seen: at bedside, nursing cleared patient for therapy Patient Identified By: Name, ID Band and Date Diagnosis: brain tumor s/p crani for resection (11/11/23853) Status of treatment: Evaluation completed (11/11/23853) Orders: OT evaluation and treatment;OT OOB (11/11/23853) Weight Bearing Status: Weight bearing as tolerated (11/11/23853) Precautions: Alarms;Safety (11/11/23853) Total Treatment Time: 19 (11/11/23853) Past Medical History: Past Medical History: Diagnosis Date Bradycardia, sinus CAD (coronary artery disease) CxOM3 BMS 08/16/15 HTN, goal below 140/80 Hx of tobacco use, presenting hazards to health Past Surgical History: Past Surgical History: Procedure Laterality Date COLONOSCOPY, DIAGNOSTIC (RECTUM) N/A 09/01/2016 normal biopsy/recall 10 years/COLONOSCOPY FLEXIBLE PROXIMAL DIAGNOSTIC performed by Dominik Herrera MD at OR [facility] CORONARY ANGIOGRAPHY W/LEFT HEART CATH Right 08/16/2015 CORONARY ANGIOGRAPHY W/LEFT HEART CATH performed by Joel Brambila MD at [facility] MICROSURGERY ADD-ON Left 11/10/2023 MICROSURGICAL SURGERY REQUIRING MICROSCOPE LISTED SEPARATELY performed by Matteo Ornelas III, MD at [place] [facility] REMOVE SUPRATENTORIAL BRAIN TUMOR Left 11/10/2023 CRANIOTOMY BONE FLAP EXCISION BRAIN TUMOR SUPRATENTORIAL performed by Matteo Ornelas III, [facility] REMOVE TONSILS & ADENOIDS, UNDER 12 STEREOTACTIC CRANIAL INTRADURAL NAVIGATION Left 11/10/2023 STEREOTACTIC CRANIAL INTRADURAL NAVIGATION performed by Matteo Ornelas III, MD at [place] [facility] Social History/Disposition Lives with: Alone (11/08/23 1048) Assistance available: No (limited assistance if required) (11/08/23 1048) Dwelling type: Single story home () (11/08/23 1048) Entry steps: 2 (11/08/23 1048) Inside steps: None (11/08/23 1048) Bedroom location: 1st floor (11/08/23 1048) Bath location: 1st floor full bath (11/08/23 1048) Prior Level of Function Reported by: Patient (11/08/23 1025) Ambulation: Ambulatory without device (11/08/23 1025) Grooming: Independent (11/08/23 1025) Bathing: Independent (11/08/23 1025) Dressing: Independent (11/08/23 1025) Feeding: Independent (11/08/23 1025) Toileting: Independent (11/08/23 1025) Meal Prep: Independent (11/08/23 1025) Homemaking: Independent (11/08/23 1025) Shopping: Independent (11/08/23 1025) Money Management: Independent (11/08/23 1025) Occupation/Leisure Skills: Outdoor activities (11/08/23 1025) Driving: Yes (11/08/23 1025) Subjective: Pt supine in bed, agreeable to OT session. Pain: Patient has complaints of pain. Pain located at head, moderate. Nursing aware Observations Consciousness: Alert (11/11/23 0854) Orientation: Oriented times 4 (11/11/23853) Psychosocial: Patient can communicate basic needs;Patient can converse in a social setting (limitedsomewhat due to aphasia) (11/11/23853) Sitting posture: Forward head;Rounded shoulders (11/11/23853) Standing posture: Forward head;Rounded shoulders (11/11/23853) Safety awareness: The Patient verbalizes insight of current deficits. (11/11/23853) Other Findings Endurance: Good (11/11/23853) Light touch sensation: LUE;RUE;Intact (11/11/23853) Coordination: LUE;RUE;Intact (11/11/23853) Current Functional Status: Bilateral Upper Extremity Range of Motion: WNL (11/11/23853) Strength Assessment: WNL (11/11/23853) Self Care Feeding: Supervision (Please comment) (11/11/23853) Grooming: Supervision (Please comment) (wash hands) (11/11/23853) Toileting: Supervision (Please comment) (standing at toilet) (11/11/23853) Dressing Upper Body: Supervision (Please comment) (to don robe) (11/11/23853) Lower Body: Supervision (Please comment) (to doff/don socks) (11/11/23853) Functional Ambulation Assistive Device: No device (11/11/23853) Distance in feet:: 100 (11/11/23853) Level of Assistance: Supervision (Please Comment) (11/11/23853) Bed Mobility Supine-Sit: Supervision (Please comment) (11/11/23853) Sit-Supine: Supervision (Please comment) (11/11/23853) OT Transfers Sit-Stand: Supervision (Please comment) (11/11/23853) Stand-Sit: Supervision (Please comment) (11/11/23853) Balance Sit (Static): Fair (11/11/23853) Sit (Dynamic): Fair (11/11/23853) Stand (Static): Fair (11/11/23853) Stand (Dynamic): Fair (11/11/23853) Alarm Status Patient positioned in: Bed (11/11/23853) With: Bed alarm intact and functioning and call brunner in reach (11/11/23853) Patient and Family Goals: to get well and to return home Patient Education Education Topic: Role of OT;Plan of care goals (11/11/23853) Review of Precautions: Safety (11/11/23853) Method of Education: Verbalized to patient (11/11/23853) Education Provided to: Patient (11/11/23853) Response to Education: Receptive and agreeable to education (11/11/23853) Barriers to learning: Speaking;Cognition (11/11/23853) Preferred learning method: Combination (11/11/23853) Treatment Provided: Evaluation Moderate Complexity 20 minutes - 31846: Patient was cooperative and pleasant during treatment session. Moderate complexity evaluation performed and 3-5 activity limitations were identified, including ADL deficit, functional mobility deficit, bed mobility deficit, decreased endurance, and impaired balance. Minimal or moderate modification of the functional task was necessary to complete the evaluation. Deficits Requiring O.T. Treatment: Deficits requiring O.T. treatment needs: ADL/self-care;Balance;Endurance;Functional mobility;Safety;Functional cognition (11/11/23853) Assessment: Patient was admitted to [facility] on 11/05/23 for brain tumor and is being seen this date s/pL temporal craniotomy for resection. Patient was cooperative and agreeable to participate in OT evaluation this date. Prior to admission patient was independent with ADLs/IADLs and mobility. During session patient demonstrates good BUE strength and ROM WNL. Bed mobility, sit/stand transfers and functional mobility of 100ft completed at supervision level. No device used however patient did reach for handrail in hallway 1x during mobility due to feeling slightly unsteady. UB/LB dressing also completed with supervision, as well as toileting/grooming tasks. Has no difficulty using food utensils ap propriately however due to mild aphasia patient is having difficulty recalling names of items. Still endorses inability to read as well which was occurring prior to surgery. Following session pt in chair with all needs met. Currently, patients presents with slight deficits in ADLs and functional mobility, as well as decreased balance, decreased cognition and safety. Patient would benefit from continued OT services to maximize independence and safety in ADLs and functional mobility. When medically appropriate, Please consider home with post-acute care services which may include home health or outpatient therapy. The level of care will be determined in collaboration with the patient, family/caregiver and care team members. Goals: Demonstrates Self-Care at: UB Bathing: independent LB Bathing: independent UB Dressing: independent to don gown/robe/shirt LB Dressing: independent to don socks/shoes/pants Grooming: independent Toileting: independent Demonstrates Bed Mobility at: Supine to sit: independent Sit to supine: independent Demonstrates balance at: Dynamic/Static Sitting balance: Good Dynamic/Static Standing balance: Good Transfers: Sit to Stand: independent Stand to Sit: independent Toilet: independent Functional Ambulation at independent with AD PRN Patient will appropriate identify 5/5 items with 100% accuracy in order to improve recall and improve functional communication/cognition. Goal Time Frame: 5 visits Treatment Plan: Safety, Bed mobility training, Functional Ambulation, Functional Cognition, Transfer Training, Balance activities, and ADL training Anticipated Frequency (on eval): 1 to 3 times per week (11/11/23853) AM-PAC Help From Another Person Eating Meals: None (11/11/23853) Help From Another Person Taking Care of Personal Grooming: A little (11/11/23853) Help From Another Person To Put On/Take Off Upper Body Clothing: A little (11/11/23853) Help From Another Person To Put On/Take Off Lower Body Clothing: A little (11/11/23853) Help From Another Person Toileting: A little (11/11/23853) Help From Another Person Bathing: A little (11/11/23853) OT AM-PAC Score: 19 (11/11/23853) OT AM-PAC t-Scale Score: 40.22 (11/11/23853) HLM (Highest Level of Mobility) Goal: Level 8 walk 250 feet or more (11/10/23839) A portion of this AM-PAC assessment not scored based on functional assessment; rather clinical decision making utilized based on current findings and/or prior level of function. Please refer to future AM-PAC calculations of functional ability as they become available. * Nicole Nieves, CCC-RELOCATION COMMISSIONER - 11/11/2023 10:09 AM EST COGNITIVE COMMUNICATION ASSESSMENT - Speech-Language Pathology [address] [address] Name: Remy Lujan Location: [facility] A471/A Date: 11/11/2023 Time: 10:09 AM Patient Status: Inpatient Insurance: Payor: [facility] / Plan: [facility] FAMILY PLAN MA-[place] / Product Type: *No Product type* / Patient Age: [age] year old Referring Physician: Clifton Admission Date: 11/05/2023 History: Per EPIC Review 11/05/23 "HPI: Remy Lujan is a 58 year old male with hypertension, CAD, Dyslipidemia, ALEKSANDR, Ischemic cardiomyopathy presents as a transfer from [facility] as Imaging showed a new brain tumor on MRI from 11/05/2023. Onset around , patient states he had started taking Wegovy when he noticed that he was beginning to have issues with reading/comprehension, he endorses he thought this was initially just a side effect of the medication however in September he noted that he can not read, assessments show he cansee the letters but does not appear to be processing words. Also endorses chronic headache over thelast 2 months that he typically treats with OTC Tylenol or Motrin. Denies fever, chills, facial droop, stuttering, drooling, cough, dysuria, hematuria, abdominal pain, nausea, vomiting, diarrhea, CP,SOB, melena or other associated symptoms." Past Medical History Past Medical History: Diagnosis Date Bradycardia, sinus CAD (coronary artery disease) CxOM3 BMS 08/16/15 HTN, goal below 140/80 Hx of tobacco use, presenting hazards to health Past Surgical History Past Surgical History: Procedure Laterality Date COLONOSCOPY, DIAGNOSTIC (RECTUM) N/A 09/01/2016 normal biopsy/recall 10 years/COLONOSCOPY FLEXIBLE PROXIMAL DIAGNOSTIC performed by Dominik Herrera MD at [facility] CORONARY ANGIOGRAPHY W/LEFT HEART CATH Right 08/16/2015 CORONARY ANGIOGRAPHY W/LEFT HEART CATH performed by Joel Brambila MD at [facility] REMOVE TONSILS & ADENOIDS, UNDER 12 IMAGING MRI BRAIN 11/06/23 "IMPRESSION Localizing exam demonstrating large mass in the left temporoparietal junction, 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." Educational History: Advanced degree from [employer] Prior Functional Level: Reported by Patient Money Management is done by: Patient Homemaking: independent Shopping: Yes 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 clinician most likely wouldn't comprehendhis job description Barriers to Learning: Medical dx Hearing Acuity: Impaired various method attempt to assist w/comprehension which were inconsistent in aiding Best Learning Method: Auditory Patient/Family Goal(s): Return to baseline Pain: Patient has complaints of Pain/Location headache Evaluations Results: Speech-Language Skills AUDITORY COMPREHENSION: Yes/No Questions Simple/Fucntional Complex/Impaired Body Part Identification Within normal limits Right/Left Discrimination: Within normal limits Commands Simple Within normal limits Complex Impaired Comprehension Words Impaired Sentences Impaired Paragraphs Did not test Conversation Impaired VERBAL EXPRESSION: Naming Responsive Impaired Confrontation Impaired Repetition Impaired Automatic Speech Impaired Spontaneous Utterances Words Within normal limits Sentences Impaired Conversation Impaired Paraphasias/Jargon present Gestures/Augmentative Did not test Perseveration did not test READING COMPREHENSION: Oral: Words Impaired Sentences Did not test Paragraphs Did not test Comprehension Words Did not test Sentences Did not test Paragraphs Did not test WRITTEN EXPRESSION: Biographical Information Within normal limits Copying Within normal limits Spontaneous: Words Impaired Sentences Impaired Narrative Did not test SPEECH MECHANISM: Oral Motor Within normal limits Speech Intelligibility Within normal limits Dysarthria not present Apraxia Oral did not test Verbal did not test LEVEL OF ALERTNESS: alert/focused COGNITIVE-COMMUNICATION SKILLS: ATTENTION/CONCENTRATION: Sustained (1:1 environment) Within normal limits Selective with distractions Within normal limits Alternating between tasks Did not test Divided between tasks Did not test Comprehensive cognitive-communicative assessment completed this date, refer to consult for details. ASSESSMENT/DIAGNOSIS: Mild receptive language and moderate expressive language impairments Pt impaired comprehension of auditory commands requiring repetition and visual cues to assist. Pt noted to repeat questions asked for clarification. Pt required verbal cues to initiate automatic speech tasks, once started he completed w/minimal cues Pt moderate deficits w/all confrontational tasks presented Attempted use of visual cues to assist w/facilitating verbal responses, such as sentence completion, paraphasic and semantic cues w/fair-good results. 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 so we worked on reciting all the presidents which he performed w/more than 80% accuracy when provided w/the first name of the president Cognitive-Communication Rehab Potential: Fair RECOMMENDATIONS / TREATMENT PLAN: [id number]-Communication Therapy: Indicated for length of hospital stay Communication Goals: 1) Pt will perform automatic/rote tasks w/greater than 90% accuracy less than 25% of cues from clinician 2) Pt will ID word via picture/object w/greater than 90% accuracy less than 25% of cues from clinician 3) Pt will verbally ID written letter via repetition tasks w/greater than 90% accuracy less than 25% of cues from clinician ANTICIPATED FREQUENCY (ON EVAL): 1-3 times per week PATIENT/FAMILY EDUCATION: Topic(s): Reviewed the results and recommendations of the session with the pt. Method of Education: Verbal discussion and explanation provided to pt: verbalized understanding andor agreement of this information * Sandee Beavers, PT - 11/11/2023 9:16 AM ESTAssociated Order(s): ADULT PHYSICAL THERAPY CONSULT IP ISandee, supervised and was present for the duration of the following evaluation. I also read, agree with, and endorse the findings of the following evaluation note by Shonna Mcginnis, SPT Sandee Beavers PT, DPT [facility] GENERAL EVALUATION - Physical Therapy [address] [address] Name: Remy Lujan [place]: [facility] A471/A Date: 11/11/2023 Time: 915 Remy Lujan is a/an 58 year old male. Patient Status: Inpatient Insurance: Payor: [employer] Plan: [employer] Product Type: *No Product type* Payor: [facility] Plan: [facility] PSYCH CARVEOUT Product Type: *No Product type* Payor: [facility] Plan: [facility] FAMILY PLAN MA-NE Product Type: *No Product type* Patient Seen: at bedside, nursing cleared patient for therapy Patient Identified By: Name, ID Band and Date Diagnosis: Brain tumor, now s/p L temporal craniomtomy for tumor resection (11/11/23915) Status of treatment: Evaluation completed (11/11/23915) Orders: PT evaluation and treatment;OOB (11/11/23915) Weight Bearing Status: Weight bearing as tolerated (11/11/23915) Precautions: Alarms;Falls;Safety (11/11/23915) Total Treatment Time--free text: 21 (11/11/23915) Past Medical History: Past Medical History: Diagnosis Date Bradycardia, sinus CAD (coronary artery disease) CxOM3 BMS 08/16/15 HTN, goal below 140/80 Hx of tobacco use, presenting hazards to health Past Surgical History: Past Surgical History: Procedure Laterality Date COLONOSCOPY, DIAGNOSTIC (RECTUM) N/A 09/01/2016 normal biopsy/recall 10 years/COLONOSCOPY FLEXIBLE PROXIMAL DIAGNOSTIC performed by Dominik Herrera MD at [facility] CORONARY ANGIOGRAPHY W/LEFT HEART CATH Right 08/16/2015 CORONARY ANGIOGRAPHY W/LEFT HEART CATH performed by Joel Brambila MD at [facility] MICROSURGERY ADD-ON Left 11/10/2023 MICROSURGICAL SURGERY REQUIRING MICROSCOPE LISTED SEPARATELY performed by Matteo Ornelas III, MD at [facility] REMOVE SUPRATENTORIAL BRAIN TUMOR Left 11/10/2023 CRANIOTOMY BONE FLAP EXCISION BRAIN TUMOR SUPRATENTORIAL performed by Matteo Ornelas III [facility] REMOVE TONSILS & ADENOIDS, UNDER 12 STEREOTACTIC CRANIAL INTRADURAL NAVIGATION Left 11/10/2023 STEREOTACTIC CRANIAL INTRADURAL NAVIGATION performed by Matteo Ornelas III, MD at [place] [facility] Subjective: Pt in bed upon entry, agreeable to participate in physical therapy session. Pt was ableto communicate verbally, but had difficulty with speech and producing the words that he wanted to say. Observations Consciousness: Alert (11/11/23915) Orientation: Oriented times 4 (11/11/23915) Psychosocial: Patient can communicate basic needs;Patient can converse in a social setting (11/11/23915) Other Findings: Yes (11/11/23915) Findings: Light touch sensation;Coordination (11/11/23915) Light Touch Sensation Results: Intact;LLE;RLE (11/11/23915) Coordination Results: Intact;LLE;RLE (11/11/23915) Sitting Posture: Forward head;Rounded shoulders (11/11/23915) Standing Posture: Forward head;Rounded shoulders (11/11/23915) Pain: Patient has complaints of pain. Pain located in his head. Pt was unable to determine a numerical rating, but stated that it was "in the yellow" when pointing at the pain scale on the wall. Moderate pain, nursing aware. Range of Motion Range of Motion: WFL (11/11/23915) Strength Assessment Strength Assessment: Deficits noted (11/11/23915) WNL, except: LLE;RLE (11/11/23915) LLE: Hip;Knee;Ankle;4+/5 (11/11/23915) RLE: Hip;Knee;Ankle;4+/5 (11/11/23915) P.T. Bed Mobility Supine-Sit: Supervision (11/11/23915) Sit-Supine: Supervision (11/11/23915) Transfers Sit-Stand: Supervision (11/11/23915) Stand-Sit: Supervision (11/11/23915) Ambulation: Distance ambulated (feet): 100 ft Assistive Device: No device Assist: Supervision Stair Training: Number of stairs: 11 Number of handrails: unilateral L handrail Level of Assistance: supervision Balance Sit (Static): Fair (11/11/23915) Sit (Dynamic): Fair (11/11/23915) Stand (Static): Fair (11/11/23915) Stand (Dynamic): Fair (11/11/23915) Patient and or Family Goal(s): to get well and to return home Patient Education Review of Precautions: Safety;Fall (Role of PT) (11/11/23915) Safety Awareness: Patient verbalizes insight of current deficits;Patient demonstrates carryover of insight during functional tasks;Patient can communicate basic needs (11/11/23915) Preferred learning method: Combination (11/11/23915) Barriers to learning: Hearing;Speaking;Medical Status (Difficulty with speech) (11/11/23915) Method of Education: Verbalized to patient;Patient demonstrated task (11/11/23915) Topic of Education: Safety with mobility, Goals/plan of care, Stair training, and Fall prevention Method of Education: Verbal discussion and explanation provided to pt: verbalized understanding andor agreement of this information, demonstrated the exercise and or task, and had reduced level of understanding due to difficulty with speech. Treatment Provided: Evaluation High Complexity 21 minutes - 26432: Patient was cooperative and pleasant during treatment session. High complexity evaluation performed and 3 or more personal factors or comorbidities were identified that will impact plan of care, including lives alone at home, minimal assistance available at home, difficulty with speech, medical diagnosis, and recent surgery. Patient presents with limitations in strength, bed mobility, transfers, gait, elevations, balance, endurance, and safety, which will impact plan of care. These limitations will be addressed by the goals set for this patient. Alarm Status Patient positioned in: Bed (11/11/23915) With: Bed alarm intact and functioning and call brunner in reach (11/11/23915) Treatment Status: Treatment at bedside (11/11/23915) Goals: Demonstrate Bed Mobility with: modified independent Demonstrate Sit to/from Stand Transfers with: modified independent Demonstrate Ambulation: assistive device: least restrictive AD, distance in feet: 250 ft, modified independent Demonstrate Stairclimbing: Number of steps: 2 and modified independent Increase Strength of: B/L LE by 1/2 muscle grade Increase Balance: dynamic standing balance to fair+ Increase Safety: with all functional mobility Time Frame: 5-6 visits Assessment: Pt is 58 year old male presenting with brain tumor, now s/p L temporal craniotomy for brain tumor resection. Pt seen on this date for initial evaluation (was discharged from services on last evaluation prior to surgery). Pt reports moderate pain in head, nursing aware. Pt is able to communicate verbally, but has difficulty with speech as he is unable to produce the words that he is trying to say at times. During session, pt was pleasant and cooperative. Upon initial evaluation, pt was demonstrated strength at 4+/5 and intact coordination and sensation of bilateral lower extremities. Pt was able to perform bed mobility with supervision, sit to stand transfers with supervision, and ambulated 100 ft with supervision and no assistive device. Pt was steady with ambulation, but had decreased gait speed compared to his gait speed prior to surgery. Pt also demonstrated decreased confidence with ambulation and stated that he is unsure if he is safe to be on his feet. Pt performed 11 stairs (one flight) using the L handrail with supervision. Following session, pt positioned in bed with alarm and call brunner in reach. Pt presents with deficits in strength, endurance, mobility, ambulation, and balance, all of which are currently negatively impacting pt's quality of life. Pt would continue to benefit from skilled PT services while inpatient at hospital to reach established goals and address deficits. Please consider home with post-acute care services which may include home healthor outpatient therapy. The level of care will be determined in collaboration with the patient, family/caregiver and care team members. All needs met. Deficits requiring P.T. treatment needs: Safety;Mobility;Balance;Weakness;Endurance;Lower extremitystrength (11/11/23915) Equipment Needs: Equipment needs: (TBD) (11/11/23915) Treatment Plan: Bed mobility training, Transfer training, Gait training, Elevation training, Strengthening exercises: B/L LE, Balance activities, and Educate on safety with functional mobility Anticipated Frequency (on eval): 1 to 3 times per week (11/11/23915) AM PAC Score with Stairs: 18 * Sandee Beavers PT - 11/08/2023 10:48 AM ESTAssociated Order(s): ADULT PHYSICAL THERAPY CONSULT IP I, Sandee Beavers, supervised and was present for the duration of the following evaluation. I also read, agree with, and endorse the findings of the following evaluation note by Shonna Mcginnis, NICK Beavers PT, DPT [facility]ALUATION - Physical Therapy [address] [address] Name: Remy Lujan Location: [facility] A471/A Date: 11/08/2023 Time: 1048 Remy Lujan is a/an 58 year old male. Patient Status: Inpatient Insurance: Payor: [employer] Plan: [employer] Product Type: *No Product type* Payor: [facility] Plan: CC PSYCH CARVEOUT Product Type: *No Product type* Payor: [facility] Plan: [facility] FAM[facility] PLAN MA-[place] Product Type: *No Product type* Patient Seen: at bedside, nursing cleared patient for therapy Patient Identified By: Name, ID Band and Date Diagnosis: brain tumor (11/08/231047) Status of treatment: Discontinue services on evaluation (11/08/231047) Orders: PT evaluation and treatment;OOB (11/08/231047) Weight Bearing Status: Weight bearing as tolerated (11/08/231047) Precautions: Alarms (11/08/231047) Total Treatment Time--free text: 25 (11/08/231047) Past Medical History: Past Medical History: Diagnosis Date Bradycardia, sinus CAD (coronary artery disease) CxOM3 BMS 08/16/15 HTN, goal below 140/80 Hx of tobacco use, presenting hazards to health Past Surgical History: Past Surgical History: Procedure Laterality Date COLONOSCOPY, DIAGNOSTIC (RECTUM) N/A 09/01/2016 normal biopsy/recall 10 years/COLONOSCOPY FLEXIBLE PROXIMAL DIAGNOSTIC performed by Dominik Herrera MD at OR [facility] CORONARY ANGIOGRAPHY W/LEFT HEART CATH Right 08/16/2015 CORONARY ANGIOGRAPHY W/LEFT HEART CATH performed by Joel Brambila MD at [facility] REMOVE TONSILS & ADENOIDS, UNDER 12 Subjective: Pt in bed upon entry, agreeable to participate in physical therapy session. Social History/Disposition Lives with: Alone (11/08/231047) Assistance available: No (limited assistance if required) (11/08/231047) Dwelling type: Single story home (RV) (11/08/231047) Entry steps: 2 (11/08/231047) Inside steps: None (11/08/231047) Bedroom location: 1st floor (11/08/231047) Bath location: 1st floor full bath (11/08/231047) Prior Level of Function Reported by: Patient (11/08/231047) Ambulation: Ambulatory without device (11/08/231047) Devices at home: No device (11/08/231047) Observations Consciousness: Alert (11/08/231047) Orientation: Oriented times 4 (Increased time to determine month and year) (11/08/231047) Psychosocial: Patient can communicate basic needs;Patient can converse in a social setting (11/08/231047) Other Findings: Yes (11/08/231047) Findings: Light touch sensation;Coordination (11/08/231047) Light Touch Sensation Results: Intact;LLE;RLE (11/08/231047) Coordination Results: Intact;LLE;RLE (11/08/231047) Sitting Posture: Forward head;Rounded shoulders (11/08/231047) Standing Posture: Forward head;Rounded shoulders (11/08/231047) Pain: No complaints of pain Range of Motion Range of Motion: WFL (11/08/231047) Strength Assessment Strength Assessment: WNL (11/08/231047) P.T. Bed Mobility Supine-Sit: Independent (11/08/231047) Transfers Sit-Stand: Independent (11/08/231047) Stand-Sit: Independent (11/08/231047) Ambulation: Distance ambulated (feet): 350 ft Assistive Device: No device Assist: Independent Stair Training: Number of stairs: 11 Number of handrails: none Level of Assistance: independent Balance Sit (Static): Good (11/08/231047) Sit (Dynamic): Good (11/08/231047) Stand (Static): Good (11/08/231047) Stand (Dynamic): Good (11/08/231047) Patient and or Family Goal(s): to get well and to return home Patient Education Review of Precautions: Safety;Fall (Role of PT) (11/08/231047) Safety Awareness: Patient verbalizes insight of current deficits;Patient demonstrates carryover of insight during functional tasks;Patient can communicate basic needs (11/08/231047) Preferred learning method: Combination (11/08/231047) Barriers to learning: Medical Status (11/08/231047) Method of Education: Verbalized to patient;Patient demonstrated task (11/08/231047) Topic of Education: Safety with mobility, Goals/plan of care, Stair training, and Fall prevention Method of Education: Verbal discussion and explanation provided to pt: verbalized understanding andor agreement of this information and demonstrated the exercise and or task Treatment Provided: Evaluation Moderate Complexity 25 minutes - 16609: Patient was cooperative and pleasant during treatment session. Moderate complexity evaluation performed and 1-2 personal factorsor comorbidities were identified that will impact plan of care, including lives alone at home and cardiac history. Alarm Status Patient positioned in: Chair (11/08/231047) With: Pressure pad alarm intact and functioning and call brunner in reach (Cord plugged into wall) (11/08/231047) Treatment Status: Treatment at bedside (11/08/231047) Assessment: Pt is 58 year old male presenting with brain tumor. Pt seen on this date for initial evaluation. Pt denies pain at this time. Prior to admission, pt reports living in an RV (2 steps to enter) alone, with limited assistance available. Pt reports ambulating independently with no assistivedevice prior. During session, pt was pleasant and cooperative. Upon initial evaluation, pt demonstrated good strength and intact sensation and coordination of bilateral lower extremities. Pt was ableto perform bed mobility independently, sit to stand transfers independently, and ambulated independently with no assistive device 350 ft. Pt demonstrated a quick gait speed and required cues to to take his time to ensure safety. Pt performed 11 stairs (one flight) independently without the use of ahandrail. Pt was instructed to perform 2-3 stairs as this is how many he has at home, but pt quickly ran up the entire flight of steps once again requiring cues to slow down to ensure safety. Following session, pt positioned in recliner chair with alarm and call brunner in reach. Cord plugged into call brunner system. Due to pt's current independent status, pt does not have a need for skilled PT and isto be discharged from PT services at this time. Upon discharge, pt will be able to return home safely. All needs met. Equipment Needs: Equipment needs: No device (11/08/231047) AM PAC Score with Stairs: 24 * Vitor Beltran, OTR/L - 11/08/2023 10:25 AM ESTAssociated Order(s): ADULT OCCUPATIONAL THERAPY CONSULT IP GENERAL EVALUATION - Occupational Therapy [address] [address] Name: Remy Lujan [place] [facility] [place] Date: 11/08/2023 Time: 12:39 PM Remy Lujan is a 58 year old male. Patient Status: Inpatient Insurance: Payor: [employer] Plan: [employer] Product Type: *No Product type* Payor: [facility] Plan: [facility] PSYCH CARVEOUT Product Type: *No Product type* Payor: [facility] FAMILY Plan: [facility] FAMILY PLAN [place] Product Type: *No Product type* Patient Seen: at bedside, nursing cleared patient for therapy Patient Identified By: Name, ID Band and Date Diagnosis: brain tumor (11/08/23 1025) Status of treatment: Discontinue services on evaluation (11/08/23 1025) Orders: OT evaluation and treatment;OT OOB (11/08/23 1025) Weight Bearing Status: Weight bearing as tolerated (11/08/23 1025) Precautions: Alarms (11/08/23 1025) Total Treatment Time: 20 (11/08/23 102) Past Medical History: Past Medical History: Diagnosis Date Bradycardia, sinus CAD (coronary artery disease) CxOM3 BMS 08/16/15 HTN, goal below 140/80 Hx of tobacco use, presenting hazards to health Past Surgical History: Past Surgical History: Procedure Laterality Date COLONOSCOPY, DIAGNOSTIC (RECTUM) N/A 09/01/2016 normal biopsy/recall 10 years/COLONOSCOPY FLEXIBLE PROXIMAL DIAGNOSTIC performed by Dominik Herrera MD at [facility] CORONARY ANGIOGRAPHY W/LEFT HEART CATH Right 08/16/2015 CORONARY ANGIOGRAPHY W/LEFT HEART CATH performed by Joel Brambila MD [place] [facility] [place] TONSILS & ADENOIDS, UNDER 12 Social History/Disposition Lives with: Alone (11/08/23 1025) Assistance available: No (11/08/23 1025) Dwelling type: Single story home (RV) (11/08/23 1025) Entry steps: 2 (11/08/23 1025) Inside steps: None (11/08/23 1025) Bedroom location: 1st floor (11/08/23 1025) Bath location: 1st floor full bath (11/08/231024) Prior Level of Function Reported by: Patient (11/08/231024) Ambulation: Ambulatory without device (11/08/23 1025) Grooming: Independent (11/08/23 102) Bathing: Independent (11/08/23 1025) Dressing: Independent (11/08/23 102) Feeding: Independent (11/08/231024) Toileting: Independent (11/08/23 102) Meal Prep: Independent (11/08/23 102) Homemaking: Independent (11/08/23 102) Shopping: Independent (11/08/231024) Money Management: Independent (11/08/231024) Occupation/Leisure Skills: Outdoor activities (11/08/231024) Driving: Yes (11/08/231024) Subjective: Pt supine in bed, agreeable to OT session. Pain: No complaints of pain Observations Consciousness: Alert (11/08/23 102) Orientation: Oriented times 4 (11/08/231024) Psychosocial: Patient can communicate basic needs;Patient can converse in a social setting (11/08/231024) Sitting posture: Forward head;Rounded shoulders (11/08/231024) Standing posture: Forward head;Rounded shoulders (11/08/231024) Safety awareness: The Patient verbalizes insight of current deficits.;The Patient demonstrates carryover of insight during functional tasks. (11/08/23 102) Other Findings Endurance: Good (11/08/231024) Light touch sensation: LUE;RUE;Intact (11/08/23 102) Coordination: LUE;RUE;Intact (11/08/231024) Current Functional Status: Bilateral Upper Extremity Range of Motion: WNL (11/08/23 102) Strength Assessment: WNL (11/08/231024) Dressing Upper Body: Independent (to don gown) (11/08/231024) Lower Body: Independent (to doff/don socks) (11/08/231024) Functional Ambulation Assistive Device: No device (11/08/231024) Distance in feet:: 350 (11/08/231024) Level of Assistance: Independent (11/08/23 1025) Bed Mobility Supine-Sit: Independent (11/08/231024) OT Transfers Sit-Stand: Independent (11/08/231024) Stand-Sit: Independent (11/08/231024) Balance Sit (Static): Good (11/08/231024) Sit (Dynamic): Good (11/08/231024) Stand (Static): Good (11/08/231024) Stand (Dynamic): Good (11/08/231024) Alarm Status Patient positioned in: Chair (11/08/231024) With: Pressure pad alarm intact and functioning and call brunner in reach (11/08/231024) Patient and Family Goals: to get well and to return home Patient Education Education Topic: Role of OT (11/08/231024) Review of Precautions: Safety (11/08/231024) Method of Education: Verbalized to patient (11/08/231024) Education Provided to: Patient (11/08/231024) Response to Education: Receptive and agreeable to education (11/08/231024) Barriers to learning: Medical status;Reading skills (11/08/231024) Preferred learning method: Combination (11/08/231024) Treatment Provided: Evaluation Low Complexity 20 minutes - 11168: Patient was cooperative, pleasant, and alert during treatment session. Low complexity evaluation performed and no functional deficitswere identified that result in activity limitation. The patient does not have any comorbidities that affect occupational performance. There were no modifications necessary to complete the evaluation. Assessment: Patient was [place] [facility] [place] for brain tumor. Patient was cooperative and agreeable to participate in OT evaluation this date. Prior to admission patient was independent with ADLs/IADLs and mobility. He lives alone in an , was very active prior, and enjoyed hiking/traveling. During session patient demonstrates good BUE strength and ROM WNL. Bed mobility, sit/stand transfers and functional mobility of 350ft completed with independence. Patient also completed dressing tasks with same. Of note, patient is hard of hearing and admits to having difficulty reading. His coordination and sensation remains intact bilaterally. Following session pt seated in recliner with all needs met. Currently, patient presents with no significant functional deficits at this time. Further OT services are not warranted at this time given patient's functional status. When medically appropriate, please consider discharge home with assistance as needed. Treatment Plan: Discontinue Occupational Therapy services AM-PAC Help From Another Person Eating Meals: None (11/08/23 1025) Help From Another Person Taking Care of Personal Grooming: None (11/08/23 1025) Help From Another Person To Put On/Take Off Upper Body Clothing: None (11/08/23 102) Help From Another Person To Put On/Take Off Lower Body Clothing: None (11/08/23 102) Help From Another Person Toileting: None (11/08/23 102) Help From Another Person Bathing: None (11/08/23 102) OT AM-PAC Score: 24 (11/08/23 1025) OT AM-PAC t-Scale Score: 57.54 (11/08/23 102) HLM (Highest Level of Mobility) Goal: Level 7 walk 25 feet or more (11/08/23 0810) A portion of this AM-PAC assessment not scored based on functional assessment; rather clinical decision making utilized based on current findings and/or prior level of function. Please refer to future AM-PAC calculations of functional ability as they become available. * Digna Hanna CRNP - 11/08/2023 10:23 AM ESTAssociated Order(s): RADIATION ONCOLOGY CONSULT IP RADIATION ONCOLOGY CONSULT [address] [address] Name: Remy Lujan [place] [facility] Date: 11/08/2023 Time: 10:29 AM REQUESTING SERVICE: Medicine REASON FOR CONSULT: "concern for new brain tumor" HPI: 58M presented as a transfer from [facility] with newly found brain mass. Patient had difficulty reading, comprehension, and paraphasic errors started in August 2023 which gotten worse leading to outpatient MRI brain. 11/05 MRI brain revealed L temporoparietal junction mass concerning for high-grade ADDICTION NURSE tumor. Patient was referred to ED and eventually transfer to [facility] [place] further management. NSG cons ulted, planning resection. CT C/A/P negative for malignancy or metastases. PMH significant for HTN,dyslipidemia, ALESKANDR, obesity, prior heart attack with cardiac stents 8 years ago after which he quit smoking. Patient reports paraphasic errors, problem with date, time, and counting. Patient denies any MERRILL, N/V, altered vision or double vision. Patient denies altered gait, recent fall, seizure, syncope or near syncope episode. Patient denies any fever, chills, shortness of breath, chest pain or cough. Patient denies any new focal musculoskeletal aches or pains or new focal numbness or weakness. Patient denies recent weight changes or decreased appetite. PAST MEDICAL HISTORY: Past Medical History: Diagnosis Date Bradycardia, sinus CAD (coronary artery disease) CxOM3 BMS 08/16/15 HTN, goal below 140/80 Hx of tobacco use, presenting hazards to health PAST SURGICAL HISTORY: Past Surgical History: Procedure Laterality Date COLONOSCOPY, DIAGNOSTIC (RECTUM) N/A 09/01/2016 normal biopsy/recall 10 years/COLONOSCOPY FLEXIBLE PROXIMAL DIAGNOSTIC performed by Dominik Herrera MD at [facility] CORONARY ANGIOGRAPHY W/LEFT HEART CATH Right 08/16/2015 CORONARY ANGIOGRAPHY W/LEFT HEART CATH performed by Joel Brambila MD at [facility] [place] TONSILS & ADENOIDS, UNDER 12 FAMILY HISTORY: Family History Problem Relation Age of Onset Lung cancer Mother Stomach cancer Grandmother (Maternal) SOCIAL HISTORY: Social History Tobacco Use Smoking status: Former Current packs/day: 0.00 Average packs/day: 1.5 packs/day for 15.0 years (22.5 ttl pk-yrs) Types: Cigarettes Start date: 08/16/2000 Quit date: 08/16/2015 Years since quittin.2 Passive exposure: Never Smokeless tobacco: Former Types: Snuff Tobacco comments: smokes cigar occas Vaping Use Vaping Use: Never used Substance Use Topics Alcohol use: Yes Comment: weekly Drug use: No ALLERGIES: Patient has no known allergies. ROS: Constitutional: (-) fever chills sweats or weight loss and (+) hard of hearing Eyes: (-) negative, no amaurosis fugax, pain, blurred vision, or redness Cardiovascular: (-) negative: no chest pain, dyspnea, syncope, or palpitations Pulmonary: (-) negative: no cough, wheezing, or shortness of breath Abdominal/GI: (-) negative: no pain, heartburn, dysphagia, bleeding, change in bowel habits, nauseaor vomiting Musculoskeletal: (-) negative: no pain Endocrine: (-) negative: no weight change, heat or cold intolerance, polyuria Hematology/oncology: (-) negative: no fever, night sweats, masses, or swollen nodes Neurology: (+) paraphasic errors, + problem with date, time, and counting Psychiatry: (-) negative: no depression or anxiety MEDICATIONS: Medications were reviewed. Current Facility-Administered Medications Medication Dose Route Frequency Provider Last Rate Last Admin doxycycline monohydrate 25 MG/5ML oral susp 50 mg 50 mg Oral Daily 0900 Axel Lazo MD hEParin inj 7,500 Units 7,500 Units Subcutaneous Q8H Axel Lazo MD 7,500 Units at 11/08/23 1027 senna (Senokot) 1 Tablet 1 Tablet Oral BID(AM/PM) Axel Lazo MD 1 Tablet at 11/08/23 0812 [COMPLETED] hEParin inj 7,500 Units 7,500 Units Subcutaneous Q8H Axel Lazo MD 7,500 Units at 11/07/23 2045 Docusate Sodium (Colace) cap 100 mg 100 mg Oral Daily PRN Cody Swenson CRNP guaiFENesin-dm (Robitussin DM) oral syrup 10 mL 10 mL Oral Q4H PRN Cody Swenson CRNP house antacid (Mi-Acid II) oral susp 15 mL 15 mL Oral Q4H PRN Cody Swenson CRNP melatonin tab 3 mg 3 mg Oral HS PRN Cody Swenson CRNP ondansetron (Zofran) inj 4 mg 4 mg IV Push Q6H PRN Cody Swenson CRNP oxyCODONE (Oxy IR) tab 5 mg 5 mg Oral Q6H PRN Axel Lazo MD sodium chloride 0.9 % flush/inj 3 mL 3 mL IV Push PRN Cody Swenson CRNP 3 mL at 11/08/23 0813 Acetaminophen (Tylenol) tab 650 mg 650 mg Oral Q4H PRN Cody Swenson CRNP 650 mg at 11/07/23 0757 buPROPion extended release (SR) (Wellbutrin SR) tab 150 mg 150 mg Oral BID(AM/PM) Cody Swenson CRNP 150 mg at 11/08/23 0812 Lisinopril (Prinivil) tab 20 mg 20 mg Oral Daily(AM) Cody Swenson CRNP 20 mg at 11/08/23 0812 metoprolol succinate XL (toPROL XL) tab 25 mg 25 mg Oral Daily(AM) Cody Swenson CRNP 25 mg at11/08/23 0812 ZUBROD PERFORMANCE SCALE: 0 - fully active, able to carry out all pre-disease activities without restriction PHYSICAL EXAMINATION: Most Recent Vital Signs: BP: 140 mmHg/74 mmHg (11/08/23 0810) Pulse: 69 (11/08/23 0810) Temp: 35.89 C (11/08/23 06) Temp Summary: Temp Min: 35.9 C (96.6 F) Max: 36.5 C (97.7 F) SpO2: 96 % (11/08/23620) O2 flow rate: 0 L/MIN (11/08/23620) Supplemental O2 Delivery: Room Air, None (11/08/23620) Weight: (!) 147 kg (324 lb) (11/08/23 0500) Weight: weight recently stable General: alert and oriented x 2 and cognition normal Skin: no skin lesions Eyes: sclera non-icteric bilaterally and extra-ocular movements intact bilaterally Head and face: facial strength symmetric Lymphatics: no cervical adenopathy and no supraclavicular adenopathy Lower extremities: non-edematous bilaterally and palpable peripheral pulses bilaterally Upper extremities: non-edematous bilaterally and normal range of motion Neurologic: no focal deficits and symmetric strength LABS: Labs reviewed as indicated below: CBC Results: Results for orders placed or performed during the hospital encounter of 11/05/23 CBC Result Value Ref Range WBC 5.93 4.00 - 10.80 K/uL RBC 4.75 4.50 - 5.25 M/uL HGB 14.7 14.0 - 16.8 g/dL HCT 43.6 40.0 - 48.4 % MCV 91.8 82.0 - 99.5 fL MCH 30.9 27.0 - 34.0 pg MCHC 33.7 32.0 - 36.0 g/dL RDW 12.4 11.5 - 15.5 % PLT 233 140 - 400 K/uL MPV 9.8 6.6 - 11.1 fL nRBCs 0 <=0 /100 WBCs IMAGING: I personally reviewed the following images and diagnostic studies. 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 Please see details above. 11/06/23 CT C/A/P IMPRESSION No evidence malignancy or metastases in the chest, abdomen, or pelvis. 11/06/23 MRI brain IMPRESSION Localizing exam demonstrating large mass in the left temporoparietal junction, 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. IMPRESSION: 58M admitted with L temporoparietal junction mass concerning for high-grade ADDICTION NURSE tumor. Extracranialimaging negative for malignancy or metastases. PLAN: Patient was discussed with Dr Obando. NS planning resection. Rad/onc will follow. Thank you for having asked us to take part in this patient's care. I spent 40 minutes counseling the patient face to face. The total time spent in care of this patient was 65 minutes. Nicole Willis CCC-RELOCATION COMMISSIONER - 11/08/2023 9:50 AM ESTAssociated Order(s): ADULT SPEECH THERAPY CONSULT IP (ACUTE CARE REHAB) See the Licensed Professional's note for clinical information and recommendations. The signature ofthe Licensed Professional on this note acknowledges only the presence of the student's note within the patient record. By regulation, students' notes are for training and educational purposes only and play no part in the documentation of care or clinical treatment of patients. I have read the below note and agree w/the results and recommendations made by CARINA Huizar-Graduate Speech-Language Pathology Student. Nicole Nieves M.S. [facility]-RELOCATION COMMISSIONER Speech-Language Pathologist [facility]/Acute Care Rehab CLINICAL BEDSIDE SWALLOW EVALUATION - Speech-Language Pathology [address] [phone] Name: Remy Lujan [place] [facility] Date: 11/08/2023 Time: 10:53 AM Patient Status: Inpatient Insurance: Payor: [facility] FAMILY / Plan: [facility] FAMILY PLAN MA-[place] / Product Type: *No Product type* / GENERAL INFORMATION: Admission Date: 11/05/2023 Referring Physician: Axel Lazo MD Pertinent Medical History: Per EPIC Review 11/05/23 "HPI: Remy Lujan is a 58 year old male withhypertension, CAD, Dyslipidemia, ALEKSANDR, Ischemic cardiomyopathy presents as a transfer from [facility] as Imaging showed a new brain tumor on MRI from 11/05/2023. Onset around Sushil, patient states he had started taking Wegovy when he noticedthat he was beginning to have issues with reading/comprehension, he endorses he thought this was initially just a side effect of the medication however in September he noted that he can not read, assessments show he can see the letters but does not appear to be processing words. Also endorses chronic headache over the last 2 months that he typically treats with OTC Tylenol or Motrin. Denies fever, chills, facial droop, stuttering, drooling, cough, dysuria, hematuria, abdominal pain, nausea, vomiting, diarrhea, CP, SOB, melena or other associated symptoms." Past Medical History: Diagnosis Date Bradycardia, sinus CAD (coronary artery disease) CxOM3 BMS 08/16/15 HTN, goal below 140/80 Hx of tobacco use, presenting hazards to health Past Surgical History: Procedure Laterality Date COLONOSCOPY, DIAGNOSTIC (RECTUM) N/A 09/01/2016 normal biopsy/recall 10 years/COLONOSCOPY FLEXIBLE PROXIMAL DIAGNOSTIC performed by Dominik Herrera MD at [facility] CORONARY ANGIOGRAPHY W/LEFT HEART CATH Right 08/16/2015 CORONARY ANGIOGRAPHY W/LEFT HEART CATH performed by Joel Brambila MD [place] [facility] [place] TONSILS & ADENOIDS, UNDER 12 IMAGING MRI BRAIN 11/06/23 "IMPRESSION Localizing exam demonstrating large mass in the left temporoparietal junction, 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." Current Diet/Dysphagia History: NPO -Pt denies any prior hx of dysphagia Cognitive-Communication: Upon clinician entry to room, pt was awake and alert. He was repositioned to an upright position prior to any PO trials and remained awake and alert. Pt remained awake and alert for all trials. Barriers to Learning: Medical Status Hearing Acuity: Deferred Best Learning Method: Auditory Pain: No complaints of pain ORAL MECHANISM EXAM: Facial Symmetry WFL Labial Function WFL Lingual Function WFL Velar Function DNT Dentition: Natural PROTECTIVE MECHANISMS: Volitional Swallow DNT Volitional Throat Clearing DNT Volitional Cough DNT Vocal Quality WFL Tracheostomy Tube: Not Present Ventilator Status: Not Applicable SWALLOWING FUNCTION: ORAL PREPARATION PHASE: Puree (IDDSI Level 4): WFL Soft and Bite-Sized (IDDSI Level 6): WFL Regular (IDDSI Level 7): WFL Thin Liquid (IDDSI Level 0): WFL ORAL PHASE: Puree (IDDSI Level 4): WFL Soft and Bite-Sized (IDDSI Level 6): WFL Regular (IDDSI Level 7): WFL Thin Liquid (IDDSI Level 0): WFL PHARYNGEAL PHASE Puree (IDDSI Level 4): WFL Soft and Bite-Sized (IDDSI Level 6): WFL Regular (IDDSI Level 7): WFL Thin Liquid (IDDSI Level 0): WFL RECOMMENDATIONS/PLAN: Videofluoroscopy: Not indicated Diet Level: Regular Liquid Level: Thin Presentation of Medication: As tolerated Positioning: Seated with 90 degree hip flexion Level of Supervision: None Use of Straws: allowed Compensatory Techniques to be Utilized During PO Intake: Small Bites/Sips, Alternate Solids & Liquids and Slow Rate of Intake Compensatory Strategies Utilized: as above Additional findings: N/A ANTICIPATED FREQUENCY (ON EVAL): Not indicated DIAGNOSIS/IMPRESSIONS: Diagnosis/Impressions: Oral phase WFL. Pharyngeal phase dysphagia not suspected 2/2 absence of overt s/sx of aspiration and/or distress. Recommend Regular Solids/Thin Liquids Meds as tolerated Upright for all PO Rehab Potential: N/A TREATMENT PLAN: Swallowing Treatment: Not Indicated Treatment Goals: N/A Additional Recommendations: If s/sx of aspiration and/or distress are appreciated, please downgradeas nsg safety measure, and re-consult RELOCATION COMMISSIONER services. The above information was discussed with the patient/family. Yes The patient/family was in Agreement Myke Huizar Emergency Veterinary Assistant Clinician * Gallito Hodge PA-C - 11/06/2023 4:34 PM ESTAssociated Order(s): ONCOLOGY CONSULT IP CONSULT - On[place] [facility] [place] [address] [place] [address] Name: Remy Lujan [place] [facility]/A Date: 11/06/2023 Time: 4:34 PM REQUESTING SERVICE: Medicine G REASON FOR CONSULT: Transferred to [facility] MRI with "Findings concerning for high-grade ADDICTION NURSE tumor centered in the left temporal-occipital junction, probably glioblastoma " REFERRING PHYSICIAN: Dr. Forte DIAGNOSIS: new left temporal occipital lesion HISTORY OF PRESENT ILLNESS: 58 y/o male with pmhx hypertension, dyslipidemia, aleksandr, obesity, prior TN with stents in , 22.5 py tobacco use quit in . In August of last year patient noting difficulty reading and in trying to comprehend what he was reading, this would worsen as the day went on. His s/o is present during my visit and reports that he usually has excellent recall and is very detail oriented but has been having difficulty with word finding most starkly noted 2 weeks ago, they do not live together. The patient noted some imbalance at times and a mild frontal headache off and on the last 3-4 weeks for which he would take tylenol as needed. He had been driving as of yesterday. He saw his PCP 11/04/23 withthese concerns and a brain MRI was done yesterday concerning for a high grade ADDICTION NURSE tumor centered inthe left temporal-occipital junction 6.1 x 3.5 x 3.4 cm, probably a glioblastoma. A CT CAP was doneand noted no evidence of malignancy in the chest, abdomen or pelvis. The patient denies recent fever, chills, sweats, no weight loss, + weight gain, no visual changes, + hard of hearing for some time, no disorientation, no staring spells, falls or seizure like episodes, no cp/sob/cough, no n/v/d/c, no abdominal pain, no motor weakness, he drove as of yesterday, + noted balance slightly off moreso recently. He has had no chemical or environmental exposures outside of his tobacco use in the past. Family History Mother Lung Cancer Maternal Grandmother Stomach Cancer Father tobacco related lung disease No siblings PAST MEDICAL HISTORY: Past Medical History: Diagnosis Date Bradycardia, sinus CAD (coronary artery disease) CxOM3 BMS 08/16/15 HTN, goal below 140/80 Hx of tobacco use, presenting hazards to health PAST SURGICAL HISTORY: Past Surgical History: Procedure Laterality Date COLONOSCOPY, DIAGNOSTIC (RECTUM) N/A 09/01/2016 normal biopsy/recall 10 years/COLONOSCOPY FLEXIBLE PROXIMAL DIAGNOSTIC performed by Dominik Herrera MD at [facility] CORONARY ANGIOGRAPHY W/LEFT HEART CATH Right 08/16/2015 CORONARY ANGIOGRAPHY W/LEFT HEART CATH performed by Joel Brambila MD at [facility] REM[place] TONSILS & ADENOIDS, UNDER 12 FAMILY HISTORY: Family History Problem Relation Age of Onset Lung cancer Mother Stomach cancer Grandmother (Maternal) SOCIAL HISTORY: Social History Tobacco Use Smoking status: Former Current packs/day: 0.00 Average packs/day: 1.5 packs/day for 15.0 years (22.5 ttl pk-yrs) Types: Cigarettes Start date: 08/16/2000 Quit date: 08/16/2015 Years since quittin.2 Passive exposure: Never Smokeless tobacco: Former Types: Snuff Tobacco comments: smokes cigar occas Vaping Use Vaping Use: Never used Substance Use Topics Alcohol use: Yes Comment: weekly Drug use: No ALLERGIES: Patient has no known allergies. REVIEW OF SYSTEMS: as above PHYSICAL EXAM: Most Recent Vital Signs: BP: 149 mmHg/67 mmHg (11/06/23 1507) Pulse: 72 (11/06/23 1507) Temp: 36.89 C (11/06/23 1507) Temp Summary: Temp Min: 35.9 C (96.6 F) Max: 36.9 C (98.4 F) SpO2: 95 % (11/06/23 1507) O2 flow rate: 0 L/MIN (11/06/23 1507) Supplemental O2 Delivery: Room Air, None (11/06/23 1507) PE: ECOG PS 1 Constitutional: no acute distress, (+) hard of hearing HEENT: normal: normocephalic, atraumatic; no masses, tenderness, or adenopathy Eyes: sclera and conjunctiva normal CV: normal rate and rhythm, no murmur, gallops or rub Chest: normal respiratory effort, lungs clear to auscultation and percussion Extremities: no clubbing, cyanosis, or edema, otherwise grossly normal, warm, and dry Skin: warm, dry, intact: Neuro: alert, sensory normal, (+) oriented to person, + difficulty with word finding, strength 4/4 symmetric, CN's intact LABS: Labs reviewed as indicated below: CHEMISTRY: BUN, Creatinine, GFR Estimated, Sodium, Potassium, Chloride, Carbon Dioxide, Glucose, Calcium (see below for most recent value): Lab Results Component Value Date/Time BUN 18 11/06/2023 01:08 AM BUN 17 04/02/2020 11:47 AM CREAT 1.1 11/06/2023 01:08 AM CREAT 1.1 04/02/2020 11:47 AM GFRESTIMATED >60.0 04/02/2020 11:47 AM NA 137 11/06/2023 01:08 AM NA 138 04/02/2020 11:47 AM POTASSIUM 3.9 11/06/2023 01:08 AM POTASSIUM 4.2 04/02/2020 11:47 AM CL 102 11/06/2023 01:08 AM CL 102 04/02/2020 11:47 AM CO2 24 11/06/2023 01:08 AM CO2 22 04/02/2020 11:47 AM CA 9.0 11/06/2023 01:08 AM CA 9.4 04/02/2020 11:47 AM BLOOD COUNT: WBC, Hgb, Platelets (see below for most recent value): Lab Results Component Value Date/Time WBC 8.34 11/06/2023 01:08 AM WBC 6.75 04/02/2020 11:47 AM HGB 15.0 11/06/2023 01:08 AM HGB 15.0 04/02/2020 11:47 AM PLT 272 11/06/2023 01:08 AM PLT 248 04/02/2020 11:47 AM LIVER FUNCTION TEST: Albumin, AST, ASTCMC (resulted at [facility] lab), Alkaline Phosphatase, ALT, ALTCMC (resulted at [facility] lab), Bilirubin Total, TBilCMC (resulted at [facility] lab), Protein - (see below for most recent value of each component): Lab Results Component Value Date/Time AST 22 11/06/2023 01:08 AM AST 40 05/03/2020 01:29 PM ALKP 80 11/06/2023 01:08 AM ALKP 107 05/03/2020 01:29 PM ALT 30 11/06/2023 01:08 AM ALT 73 (H) 05/03/2020 01:29 PM TBIL 0.2 11/06/2023 01:08 AM TBIL 0.5 05/03/2020 01:29 PM PROT 6.4 11/06/2023 01:08 AM PROT 6.7 05/03/2020 01:29 PM ESR 15 CRP 3 RADIOLOGY: MRI BRAIN WITH AND WITHOUT CONTRAST - 11/05/2023 HISTORY 58 y/o M with recent onset inability to read print. TECHNIQUE Multiplanar, multisequence magnetic resonance imaging of the brain was performed before and after the administration of intravenous contrast. COMPARISON None FINDINGS Findings concerning for high-grade ADDICTION NURSE tumor, probably glioblastoma. There is a heterogeneously mass centered at the left temporal-occipital junction, with enhancing portions measuring approximately 6.1 x 3.5 x 3.4 cm. Additional features include multicystic and necrotic components, patchy amorphous susceptibility artifact reflecting mineralization in/or blood produc ts, patchy diffusion restriction, and transependymal spread along the ipsilateral ventricular atrium. Mass closely approximates the subjacent tentorial leaflet without direct contact. Subcentimeter enhancing nodular satellite tumor cephalad in the left parietal centrum semiovale. Intrinsic intralesional and perilesional T2/FLAIR prolongation, the latter reflecting vasogenic edema and nonenhancing infiltrative tumor. Regional mass effect including diffuse left hemispheric ventriculosulcal compression, and trace rightward midline shift. Flow voids are preserved in the proximal intracranial vessels. Normal orbits. The developing paranasal sinuses and mastoid air cells are clear. Calvarium is unremarkable. IMPRESSION IMPRESSION Findings concerning for high-grade ADDICTION NURSE tumor centered in the left temporal- occipital junction, probably glioblastoma. Please see details above. EXAM: CT CHEST/ABDOMEN/PELVIS WITH IV CONTRAST WITHOUT ORAL CONTRAST DATE and TIME: 11/06/2023 2:12 am HISTORY CLINICAL INFORMATION: rule out metastatic disease for new noted brain tumor TECHNIQUE Oral Contrast: Oral contrast was not administered. IV Contrast: Intravenous contrast was administered. Axials, MIPS and sagittal and coronal reformats were reviewed. COMPARISON None. FINDINGS LINES AND DEVICES: None CHEST: LUNGS: Unremarkable LARGE AIRWAYS: Patent centrally. PLEURA: Unremarkable VESSELS: Mild atherosclerotic calcification of the coronary arteries and aorta. There is common origin of the brachiocephalic and left common carotid artery, an anatomic variant - "bovine arch". HEART: Normal in size. No pericardial effusion. MEDIASTINUM AND MICAH: Unremarkable CHEST WALL/SOFT TISSUES: Unremarkable ABDOMEN/PELVIS: LIVER: Unremarkable BILE DUCTS: Nondilated. GALLBLADDER: Unremarkable PANCREAS: Unremarkable SPLEEN: Unremarkable ADRENALS: Unremarkable KIDNEYS/URETERS: No hydronephrosis or hydroureter. BLADDER: Unremarkable BOWEL: Normal in caliber. Normal appendix. Colonic diverticulosis. LYMPH NODES: Unremarkable VESSELS: Aortoiliac atherosclerosis without aneurysmal dilation. Accessory bilateral renal arteries. REPRODUCTIVE ORGANS: Unremarkable PERITONEUM/RETROPERITONEUM: No free air, free fluid, or organized fluid collections. ABDOMINAL WALL/SOFT TISSUES: Prior umbilical hernia repair with mesh. BONES: No suspicious lesions. Degenerative changes in the spine. Transitional lumbosacral anatomy with a sacralized L5 vertebra. Mild retrolisthesis at L2-L3 and L3-L4. IMPRESSION IMPRESSION No evidence malignancy or metastases in the chest, abdomen, or pelvis. PATHOLOGY: N/A ASSESSMENT: 58 y/o male having several weeks of difficulty reading, comprehending what he has been reading and word finding prompting a brain MRI which noted a lesion in the left temporo-occipital junction, suspicious for glioblastoma. - Appreciate NSurg recs, add'l MRI to be done to determine biopsy plans - CT CAP noted without evidence of metastatic disease - Please have Radiation Oncology evaluate the patient - Consider PT/OT eval regarding balance concerns while awaiting biopsy - patient will be discussed with and seen by Dr. Piper on rounds tomorrow Associated attestation - Carolynn Piper MD - 11/07/2023 3:38 PM EST I have reviewed the advanced practitioner's documentation on the date of service referenced in note, and I agree with, and take responsibility for the plan of care. Await Neurosurgery plan. Follow path results. documented in this encounter Nursing Notes * Mel Davis RN - 11/18/2023 2:35 PM EST Discharge instructions given to pt and his SO Candi. Both verbalized understanding of instructions. Meds to beds given to patient. Pt ambulated out to personal vehicle. * Krysta Kenyon RN - 11/17/2023 7:44 PM EST 1900: Pt refusing bed alarms at this time. Patient educated on fall precautions and use of bed alarms for safety, patient continues to refuse. Patient has no further questions at this time. * Arturo Hatfield RN - 11/16/2023 7:00 PM EST Patient refused bed alarms. Pt educated on fall risk and safety precautions. Pt continued to decline bed alarms. Pt encouraged to ring call brunner before getting out of bed. * Adela Winslow RN - 11/16/2023 5:40 PM EST Patient refused bed alarm today. Patient educated regarding importance of bed alarm and fall safety. * Krysta Kenyon RN - 11/14/2023 9:08 PM EST 2030: Patient refusing bed alarms at this time because patient wants to sit at edge of bed. Patienteducated on fall precautions and assistance with ambulation. Patient ahs no further questions at this time. 2100: Patient agreeable to bed alarms at this time. Bed alarm resumed. * Jackie Huang NA - 11/10/2023 6:34 PM EST Post Anesthesia Care Unit Transport Note [address] [address] Dept. Remy Lujan Transported from PeriOp to : [id number] Time: 1810 Care of patient transferred to: Ольга LATHAM Transported via: Bed Belongings with Patient: NO Pulse : 85 Temp : 36.5 BP : 130/71 Respirations : 11 Pulse Ox : 96 O2 : room air SCDS: On but not activated/no machine * Ha Hudson RN - 11/10/2023 5:25 PM EST PERIOP TO IP HANDOFF COMMUNICATION NOTE [address] [id number] Name: Remy Lujan AGE: [id number] year old [place] [facility] Date: 11/10/2023 Attention to: Gloria Hercules Report from: HA HUDSON RN Patient arriving via: Bed Time of call: 5:25 PM Phone Ext: [phone] Reason for SBAR (Situation, Background, Assessment, Recommendation) handoff: OR Sending to: AP4 Emotional/Personal Events & Special Needs: None Prescriptions in chart: No Code Status: Full Code Safety Concerns: no safety concerns identified Allergies: Patient has no known allergies. PMH: Past Medical History: Diagnosis Date Bradycardia, sinus CAD (coronary artery disease) CxOM3 BMS 08/16/15 HTN, goal below 140/80 Hx of tobacco use, presenting hazards to health PSH: Past Surgical History: Procedure Laterality Date COLONOSCOPY, DIAGNOSTIC (RECTUM) N/A 09/01/2016 normal biopsy/recall 10 years/COLONOSCOPY FLEXIBLE PROXIMAL DIAGNOSTIC performed by Dominik Herrera MD at OR [facility] CORONARY ANGIOGRAPHY W/LEFT HEART CATH Right 08/16/2015 CORONARY ANGIOGRAPHY W/LEFT HEART CATH performed by Joel Brambila MD at [facility] REMOVE TONSILS & ADENOIDS, UNDER 12 Isolation: Isolation: Procedure: Left temporal craniotomy for tumor resection Type of Anesthesia: General endotracheal anesthesia Block: n/a IV intake: 1500 mL 500 mL albumin EBL: OR: 150 mL PACU: 0 mL Urine output: OR 600 mL PACU 0 mL IUBC (Owens): Incision location: head Dressing location: head Time of last skin assessment: 1530 Pressure injuries or areas of concern: None Lines: Peripheral Line Left;Lower Arm 20 Gauge (Active) Status Fluids infusing;Flushes easily 11/10/23 1600 Tubing Changed N/A 11/10/23 1600 Phlebitis Scale 0 11/10/23 1600 Infiltration Scale 0 11/10/23 1600 Site Description (Other) Without redness, swelling or drainage 11/10/23 1600 Site Intervention None required 11/10/23 1600 Dressing Assessment Dressing clean, dry, and intact;Transparent dressing 11/10/23 1600 Dressing Intervention None required 11/10/23 1600 Number of days: 1 Arterial Line Left Radial (Not Active) Status Zeroed and leveled;Continuous flush / Infusion;Good Wave Form;Intermittent flush;Positive Blood Return 11/10/23 1600 Tubing Changed N/A 11/10/23 1600 Site Description Without redness, swelling or drainage 11/10/23 1600 Site Intervention None required 11/10/23 1600 Dressing Assessment Dressing clean, dry, and intact 11/10/23 1600 Dressing Intervention None required 11/10/23 1600 Number of days: 0 Vital Signs: BP: 137/70 (11/10/23 1645) Temp: 36.6 C (97.9 F) (11/10/23 1600) Pulse: 78 (11/10/23 1645) Resp: 8 (11/10/23 164) SpO2: 95 % (11/10/23 164) O2 flow rate: 0 L/MIN (11/10/23 164) Time of last pain medication: 1540 Med: Dilaudid Time of last antibiotic: 1156 Med: Ancef Time of last antiemetic: 1425 Med: Zofran BAND SEWER: no Drips: no Neurological: Neuro WNL: WNL - within normal limits (11/10/23 0840) Speech: Expressive aphasia (mild) (11/10/23 1600) Level of Consciousness: Alert;Responds to voice (11/10/23 1600) RUE Motor Strength: 5-Active movement with full resistance (11/10/23 1600) RLE Motor Strength: 5-Active movement with full resistance (11/10/23 1600) LUE Motor Strength: 5-Active movement with full resistance (11/10/23 1600) LLE Motor Strength: 5-Active movement with full resistance (11/10/23 1600) Coma Score: 15 (11/10/23 1600) Respiratory: Respiratory WNL: X - Exceptions to WNL as documented below (11/10/23 163) Cough: None (11/10/23 1635) Depth/Rhythm: Regular (11/10/23 1635) Dyspnea Occurance: None (11/10/23 163) Effort: Unlabored (11/10/23 163) Oxygen therapy/ Mechanical vent O2 flow rate: 0 L/MIN (11/10/23 1645) Supplemental O2 Delivery: Room Air, None (11/10/23 164) NIV/CPAP Mask/Prongs: Mask (11/09/232241) O2 Device Skin Integrity : Skin unaffected (11/07/232225) Cardiac: Cardiovascular WNL: X - Exceptions to WNL as documented below (11/10/23 1600) Heart Sounds: S1;S2 (11/10/23 1600) Rhythm: 1 degree AV Block (11/10/23 0719) Extremities: +Sensation;Right;Left;Upper;Lower;Warm;Olin (11/10/23 1600) Pulses Right: Dorsalis Pedis +;Radial + (11/10/23 1600) Pulses Left: Dorsalis Pedis +;Radial + (11/10/23 1600) Capillary Refill: 3 sec (11/10/23 1600) GI: GI WNL: WNL - within normal limits (11/10/23 1600) Abdomen: Soft;Non-distended;Non-tender (11/10/23 1600) : WNL: X - Exceptions to WNL as documented below (11/10/23 1600) Urine Description: Other-Describe (No urine to assess at this time) (11/10/23 1600) Due to Void: 2104 Integumentary:Integumentary WNL: X - Exceptions to WNL as documented below (11/10/23 1600) Skin Description: Warm;Dry (11/10/23 1600) Skin Color: Flesh Tone (11/10/23 1600) Skin Lesion: Other - Describe (see below) (11/10/23 1600) Oskar Score (auto-calculation): 22 (11/09/23 2300) Family updated on transfer: no Additional Assessment Information: Patient moving all extremities. Extremely hard of hearing. Has mild expressive aphagia. Incisions on head all intact. Low potassium, given via IV. A line removed inPACU. * Ha Hudson RN - 11/10/2023 3:50 PM EST Dual Licensed Skin Assessment completed by Ha Amin and Izzy Hooper. The patient is/has a N/A Skin Breakdown (includes non blanchable erythema): Yes - Surgical/Procedural changes only. * Isai Smith RN - 11/10/2023 10:25 AM EST Dual Licensed Skin Assessment completed by NOA Hackett and NOA River. The patient is/has a N/A Skin Breakdown (includes non blanchable erythema): No * Kaylene Tran LPN - 11/10/2023 9:44 AM EST Hand-Off - Nurse Communication Note Name: Remy Lujan Location: [address] Date: 11/10/2023 Time: 9:44 AM Sending to: PACU Safety Concerns: Communication/Language ONEIDA Allergies: Patient has no known allergies. Code Status: Full Code Isolation: None Isolation flowsheet: Special Needs: Special Needs comments: Attention to: PACU Report from: Kaylene Tran LPN Phone extension: [phone] Patient arriving via: Bed Reason for SBAR handoff: OR Situation/Background Admission date: 11/05/2023 Patient Service: Med G [[id number]] Attending Provider: Ryan Bonilla DO Admitting diagnosis: Brain tumor (HCC) Brain lesion Chief Complaint: No chief complaint on file. Problem list: Principal Problem: Brain tumor (HCC) Active Problems: Coronary artery disease without angina pectoris HTN, goal below 140/90 Dyslipidemia, goal LDL below 100 Venous insufficiency Class 3 severe obesity due to excess calories with serious comorbidity and body mass index (BMI) of40.0 to 44.9 in adult (HCC) ALEKSANDR (obstructive sleep apnea) Brain mass Resolved Problems: * No resolved hospital problems. * Level of Care: Med Surg [3] Assessment Vital Signs: BP: 131/70 (11/10/23635) Temp: 37.3 C (99.1 F) (11/10/23635) Pulse: 63 (11/10/23635) Resp: 16 (11/10/23635) SpO2: 96 % (11/10/23635) Weight: (!) 147.2 kg (324 lb 8.3 oz) (11/10/23248) Height: 188 cm (6' 2") (11/05/232211) Fall Scale: Fall Score: 35 (11/09/232299) Fall Interventions: Bed at low level;Floor free of clutter;Non-skid foot covering on;Walk path freeof obstacles (11/09/232299) Neurological: Neuro WNL: WNL - within normal limits (no change from previous assessment) (11/10/23248) Madison Coma Scale Eyes Open: Spontaneous (11/09/232026) Best Verbal Response: Verbally appropriate for age (11/09/232026) Best Motor Response: Obeys commands appropriate for age (11/09/232026) Coma Score: 15 (11/09/232026) Additional Neurological Information: Respiratory: Respiratory WNL: WNL- within normal limits (11/09/231199) Oxygen therapy/ Mechanical vent O2 flow rate: 0 L/MIN (11/09/232241) Supplemental O2 Delivery: Room Air, None (11/10/23635) NIV/CPAP Mask/Prongs: Mask (11/09/232241) O2 Device Skin Integrity : Skin unaffected (11/07/232225) O2 flow rate: 0 L/MIN (11/09/232241) Additional Respiratory Information: Cardiac: Cardiovascular WNL: WNL - within normal limits (11/09/232026) Heart Sounds: S1;S2 (11/08/231999) Rhythm: 1 degree AV Block (11/09/232306) Extremities: +Sensation (11/09/231199) Pulses Right: Dorsalis Pedis +;Radial + (11/09/231199) Pulses Left: Dorsalis Pedis +;Radial + (11/09/231199) Capillary Refill: 3 sec (11/09/23822) Additional Cardiac Information: GI/: GI WNL: WNL - within normal limits (11/09/231199) WNL: WNL - within normal limits (independent) (11/09/232026) Additional GI/ Information: Integumentary: Integumentary WNL: WNL - within normal limits (11/09/231199) Oskar Score (auto-calculation): 22 (11/09/232299) Skin Breakdown: No (11/10/23652) Skin Breakdown (including Red, Non-Blanchable Areas) Present on Admission?: No (11/05/232249) Additional Integumentary Information: Restraints: No orders of the defined types were placed in this encounter. Lines: Peripheral Line Left;Lower Arm 20 Gauge (Active) Status Fluids infusing 11/09/232299 Tubing Changed No 11/09/232299 Phlebitis Scale 0 11/09/232299 Infiltration Scale 0 11/09/232299 Site Description (Other) Without redness, swelling or drainage 11/09/232299 Site Intervention None required 11/09/232299 Dressing Assessment Dressing clean, dry, and intact 11/09/232299 Dressing Intervention None required 11/09/232299 Number of days: 1 Labs: Labs This Encounter COMPREHENSIVE METABOLIC PANEL - Abnormal; Notable for the following components: Result Value Ref Range Glucose 127 70 - 120 mg/dL All other components within normal limits BASIC METABOLIC PANEL - Abnormal; Notable for the following components: Creatinine 1.3 0.6 - 1.2 mg/dL All other components within normal limits MRSA SCREEN, PCR - Normal MAGNESIUM - Normal PHOSPHORUS - Normal ERYTHROCYTE SEDIMENTATION RATE (ESR) - Normal CRP (INFLAMMATORY MARKER) - Normal BASIC METABOLIC PANEL - Normal MAGNESIUM - Normal PHOSPHORUS - Normal BASIC METABOLIC PANEL - Normal MAGNESIUM - Normal PHOSPHORUS - Normal MAGNESIUM - Normal PHOSPHORUS - Normal BASIC METABOLIC PANEL - Normal MAGNESIUM - Normal PHOSPHORUS - Normal PT INR - Normal Narrative: Warfarin Therapy INR: 2.0-3.0 conventional anticoagulation INR: 2.5-3.5 high intensity anticoagulation CBC CBC CBC TYPE AND SCREEN ABO/RH Diet: Orders Placed This Encounter Procedures NPO After 2400 Except Meds NPO After 2400 Except Meds NPO After 2400 Except Meds NPO After 2400 Except Meds Additional Diet Information: NPO Intake and Output: Intake/Output Summary (Last 24 hours) at 11/10/2023 0944 Last data filed at 11/10/2023 0841 Gross per 24 hour Intake 787.24 ml Output -- Net 787.24 ml Patient Belongings and Home Medications Patient Belongings at Bedside Belongings at Bedside: Vision;Clothing;Electronic devices (11/05/232214) Vision - Corrective Lenses: Glasses (11/05/232214) Clothing: Pants;Shirt;Footwear;Jacket/coat;Socks;Underpants (11/05/232214) Patient Electronics: Cell phone (11/05/232214) Patient Belongings Sent Home (Does not apply to Ambulatory areas) Belongings Sent Home: None (11/05/232214) Patient Belongings Sent to Safe/Locker Belongings Sent to Safe: None (11/05/232214) Patient Medications Medications Brought by Patient?: No (11/05/232214) Recommendations/Follow up Goals/Plan of Care: OR Consults not completed: n/a Anticipated tests/studies/procedures: n/a Medication Reconcilliation completed for this Admission? Yes * Kecia Edwards RN - 11/05/2023 10:51 PM EST Dual Licensed Skin Assessment completed by Kecia Tinoco RN and Paris Rivera RN. The patient is/has a N/A Skin Breakdown (includes non blanchable erythema): No * Kecia Edwards RN - 11/05/2023 10:30 PM EST Patient/caregiver, Remy, verbalized understanding that a pressure injury is anticipated due to the following risk factors: other: n/a , despite pressure injury prevention measures of turn and repositioning, heels elevated, and pillows and/or wedges being in place or due to patient's refusal/inability to comply with preventive measures. The areas at risk include but are not limited to the sacrum, bony prominences, and heels. Educationwas provided about patient's condition and treatment as well as unit standards for turning, repositioning, and skin care. documented in this encounter OR Notes * OR Surgeon - Matteo Ornelas III, MD - 11/10/2023 2:56 PM EST [facility] [address] [address] [facility] [address] OPERATIVE REPORT Name: Remy Lujan Date: 11/10/2023 Time: 245 PM Location: [place] [facility] [place]: Neurosurgery Date of Operation: 11/10/2023 Pre-op Diagnosis: large symptomatic left temporal brain tumor, cerebral edema, mass effect Post-op Diagnosis: same Operation: left temporal craniotomy for tumor resection; use of brainlab stereotactic neuronavigation; use of the ultrasound with self interpretation; use of neurophysiological monitoring (SSEP/MEP/subcortical stimulation) Surgeon: Matteo Ornelas III, MD, PhD Assistants: No qualified resident available; Adonay Conn PA-C Anesthesia: General endotracheal anesthesia Drains: none Estimated Blood Loss: 150 ml. IV Fluids: 1500 ml crystalloid; 500 ml albumin Urine Output: 500 ml. Specimens/Disposition: left temporal brain tumor for intra-op and permanent pathology, sonopet contents Apparent Intraoperative Complications: NONE Patient Condition: stable Disposition: Post Anesthesia Care Unit Attestation: I understand that section 1842 (b)(7)(D) of the Social Security Act generally prohibits Medicare physician fee schedule payment for the services of [id number] in teaching hospitals when qualified residents are available to furnish such services. I certify that the services for which payment is claimed were medically necessary, and that no qualified resident was available to perform the services. I further understand that these services are subject to post-payment review by the Medicare carrier. Matteo Polo III, M.D., Ph.D., performed this operation in its entirety. Mr. Conn assisted with positioning exposure, retraction, maintenance of a bloodless field, resection, and closure. Operative Indication: Remy presented with a symptomatic LEFT temporal brain tumor, with some multifocality. 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 I visited with him and his and we discussed his condition andtreatment options. I recommended maximal safe surgical resection of the large lesion to get a diagnosis and move him to the next phase of treatment. I discussed the rationale, expectations etc. We reviewed the technical details. I covered the risks, including but not limited to: bleeding, infection, CSF leak, wound complication, neurological deficit, incomplete resection, need for more treatment or surgery, lack of expected outcome, ICH, seizure, stroke, or even amongst other things. He endorsed understanding of these. I answered his questions to his satisfaction. NO guarantees were stated or implied. The informed consent was obtained. Operation: The patient was brought to the OR and identified. He was positioned supine on the OR table with allpressure points padded carefully. He was placed under general anesthesia and intubated. All necessary lines, IV, a owens etc were placed per anesthesia protocol. The head of the bed was turned 180 degrees away from anesthesia. The Gaines head clamp was attached to his head without incident and his head was turned to the right exposing the left side and he was fixated to the bed. Brainlab neuronavigation was set up and registered. I confirmed accuracy. I localized the tumor and marked its boundaries with a pen. I marked a retroauricular linear incision. His scalp was cleansed with chlorhexidine brushes. Neurophys monitoring (SSEP/MEPs) was set up and run and show to be followable. His scalp was prepped and draped in the usual sterile fashion. He was administered preop antibiotics within one hour of skin incision, to be discontinued within 24h of first administration in accordance with SCIP protocol. His films were up for review. He was also administered keppra, decadron, and mannitol. A surgical pause was performed. Local anesthesia was administered to the incision. The incision was opened using a 10 blade and carried down to the skull using monopolar. Self retaining retractors were placed after dissection. Brainlab was used to localize the tumor again and plan the craniotomy. Killen holes were made with the marketing communications leader and the craniotomy was turned with the craniotome. The dura was dissected away from the overlying bone and the bone was lifted off and placed in antibiotic solution. The ultrasound was used tovisualized the tumor. The dura was opened in a trap door fashion and was secured back using neurolons. The ultrasound was used to visualize the tumor. A Rohini branch was in the middle of where I planned to enter so we worked around it. I made generous corticectomies on either side in the inferior temporal gyrus with the bipolar and microscissors. The subcortical stim electrode was placed on my suction and set to 10 mAmps. We worked down into the tumor and it was readily distinguishable from thebrain. There were thrombosed vessels suggestive of a high grade glioma. I took a number of specimens with the pituitary and sent for intra-op. At one point. Dr. Knight of Pathology called into the room and reported that the tumor was consistent with high grade glioma. Using a combination of suctions, the bipolar, and the sonopet we worked inside the tumor, starting posteriorly, until I encountered what appeared to be more normal brain tissue. We then methodically worked from posterior to anterior and superior to deep. Once I resected a section, I placed a cotton ball for hemostasis. Working anteriorly inside the tumor we got to the ventricle in the depths, with this as a boundary for the deep aspect of the tumor. We continued to work anteriorly. Eventually, the bleeding largely stopped, signifying that resection was largely done. I then inspected the cavity with cotton balls and removedany other areas of abnormal tissue. I felt that the brain was largely decompressed and a good safe resection had been accomplished. I then obtained meticulous hemostasis with the bipolar, cotton balls, and warm irrigation. Once accomplished, surgicel was placed in the resection bed. There were no pathological changes in any neurophys. The dura was closed with interrupted neurolons. A piece of gelfoam was applied to the dura as an overlay. The bone was plated with Synthes plates and screws and resecured to the skull. The wound was copiously irrigated with antibiotic containing irrigation. Hemostasis was obtained. The galea was closed with 2-0 interrupted vicryl sutures. The skin was closed with a running 4-0 absorbable monocryl suture. A sterile dressing was applied. The drapes were [place]. The Gaines head clamp was detached from his head without incident. He was emerged from general anesthesia to be extubated. He was repositioned supine on his hospital bed. He was transferred to the PACU in stable and satisfactory condition. All needle, sponge, instrument, and cottonoid counts were correct at the end of the operation. documented in this encounter Miscellaneous Notes * Ancillary Progress Note - Salome Hampton RN - 11/18/2023 12:01 PM EST CARE MANAGEMENT - ADULT DISCHARGE NOTE [facility] [address] Name: Remy Lujan [place] [facility] A[facility]A Date: 11/18/2023 Time: 12:01 PM The following coordination of care and discharge plan has been coordinated with the care team, patient, family and/or caregiver according to the patients needs and preferences. Discharge Final Discharge Plan (Complete only at time of Discharge): Home with Services (11/18/23 1201) Home Medical Care - Admitted Since 11/05/2023 Service Provider Selected Services Address Phone Fax Patient Preferred Last Updated [facility] Services [address] [facility] [phone] -- Salome Hampton RN 11/18/2023 1201 Home Medical Care - Episodes Includes Home Medical Care providers with selected services from the active episodes listed below Level 2 Complex Case Management Episode start date: 11/08/2023 There are no active outsourced providers for this episode. Narrative: Discharge destination time-out called during BOOST rounds, all parties agreeable with transition plan of care. I have conducted the discharge appointment with the patient (ph: ), family (ph: ), Care Management,and provider on 11/18/2023 at 12:02 PM. This discussion on complex discharge planning occurred bedside. [facility] HH have SOC 11/18, they will contact Candi directly. MONTEZ reviewed private pay healthcare agencies with TEN Christopher 51 has been filed with [facility] along with Steps to Apply for Waiver Services hand out was given. Meds to beds offered: no. The following post care is planned: PCP follow up and Multidisciplinary team appointment on WednesdayNovember 21. I encouraged the patient and/or family to call the hospital with any questions or concerns about the hospital admission. * Pt Handout (on AVS) - Wendi Carrie Tatiana, DO - 11/18/2023 10:57 AM EST Images from the original note were not included. [id number] Morphine Extended Release Oral Tablet Brands: MS Contin Uses For pain. Instructions Swallow the medicine without crushing or chewing it. This medicine may be taken with or without food. Store at room temperature away from heat, light, and moisture. Do not keep in the bathroom. Please ask your doctor, nurse, or pharmacist how to discard unused medicines safely. To reduce constipation, eat high fiber foods, drink plenty of water and exercise. If you forget to take a dose on time, take it as soon as you remember. If it is almost time for thenext dose, do not take the missed dose. Return to your normal schedule. Do not take 2 doses at one time. Drug interactions can change how medicines work or increase risk for side effects. Tell your healthcare providers about all medicines taken. Include prescription and lcil-gka-uunohuc medicines, vitamins, and herbal medicines. Speak with your doctor or pharmacist before starting or stopping any medicine. Tell your doctor if symptoms do not get better or if they get worse. Parts of this medicine may come out in the stool. This is normal. Cautions This medicine has an opioid. Opioids help many people but may cause addiction, especially if used for a long time. The addiction risk is higher if you have a substance use disorder (overuse of or addiction to drugs or alcohol). Ask your doctor about the benefits and risks. Ask your doctor or pharmacist if you should have naloxone on hand to treat opioid overdose. Teach your family or household members about the signs of an opioid overdose and how to treat it. If you stop this medicine suddenly after using it for a long time, you may have withdrawal. Your doctor may slowly lower your dose before stopping it. Tell your doctor right away if you have symptoms, such as unusual sweating, watering eyes, runny nose, chills, diarrhea, yawning, muscle aches, restlessness, anxiety, trouble sleeping, or thoughts of suicide. Tell your doctor and pharmacist if you ever had an allergic reaction to a medicine. Do not use the medication any more than instructed. This medicine may cause dizziness or fainting. Do not stand or sit up quickly. If possible, avoid using with alcohol, marijuana, or other medicines that can cause dizziness or drowsiness. These include allergy/cold products, muscle relaxers, sleep aids, and pain relievers. Your ability to stay alert or to react quickly may be impaired by this medicine. Do not drive or operate machinery until you know how this medicine will affect you. This medicine passes into breast milk. Ask your doctor before . This medicine can hurt a new baby in the womb. If you become while on this medicine, tell your doctor immediately. Your doctor may switch you to a different medicine. This medicine should be used with caution in patients with breathing difficulties. Call your doctor right away if you notice slow or shallow breathing. Do not share this medicine with anyone who has not been prescribed this medicine. Some patients have serious side effects from this medicine. Ask your pharmacist to show you the information from the Food and Drug Administration (FDA) and discuss it with you. Side Effects The following is a list of some common side effects from this medicine. Please speak with your doctor about what you should do if you experience these or other side effects. decreased appetite constipation dizziness or drowsiness lightheadedness nausea and vomiting Call your doctor or get medical help right away if you notice any of these more serious side effects: decreased awareness or responsiveness breathing interruption during sleep shallow, irregular breathing changes in memory, mood, or thinking confusion fainting hallucinations (unusual thoughts, seeing or hearing things that are not real) seizures severe stomach or bowel pain unusual or unexplained tiredness or weakness difficulty or discomfort urinating weight loss A few people may have an allergic reaction to this medicine. Symptoms can include difficulty breathing, skin rash, itching, swelling, or severe dizziness. If you notice any of these symptoms, seek medical help quickly. Extra Please speak with your doctor, nurse, or pharmacist if you have any questions about this medicine. [email or web address] IMPORTANT NOTE: This document tells you briefly how to take your medicine, but it does not tell youall there is to know about it. Your doctor or pharmacist may give you other documents about your medicine. Please talk to them if you have any questions. Always follow their advice. There is a more complete description of this medicine available in Guamanian. Scan this code on your smartphone or tablet or use the web address below. You can also ask your pharmacist for a printout. If you have any questions, please ask your pharmacist. The display and use of this drug information is subject to Terms of Use. Copyright(c) 2022 [employer]. 6404-8789 [employer]ovico. All rights reserved. This information is not intended as a substitute for professional medical care. Always follow your healthcare professional's instructions. * Pt Handout (on AVS) - Carrie Adame DO - 11/18/2023 10:40 AM EST Images from the original note were not included. Glioblastoma - Video Let's take a minute to talk about glioblastoma multiforme, which is sometimes called GBM or glioblastoma. GBM is a tumor that occurs in either the brain or the spinal cord. It affects the glial cells, which help keep nerve cells healthy. To view the video go to this web address: [email or web address] Or, scan this QR code with your smart phone 2023 [employer]. All Rights Reserved. * Pt Handout (on AVS) - Carrie Adame DO - 11/18/2023 10:40 AM EST [id number] Understanding Glioblastoma Multiforme (GBM) Glioblastoma multiforme (GBM) is a fast-growing cancer that starts in the brain. It?s the most common type of brain cancer in adults. How a glioblastoma multiforme grows GBM is a type of brain tumor known as a glioma. It starts in glial cells, which help keep the nervecells in the brain healthy. Glial cells are a type of brain cell called astrocytomas. Brain tumors are graded on a 1 to 4 (I to IV) scale based on how fast they grow. Grade I brain tumors grow the slowest. Grade IV tumors grow the fastest. GBMs are grade IV astrocytomas. These tumors grow quickly and often spread into nearby brain tissue. What causes glioblastoma multiforme? Researchers are still learning what causes GBM. Changes in a cell's genes are a elias part of cancer.These gene changes affect the way the cells grow. Cancer cells grow and divide out of control to form a tumor. Most gene changes occur randomly, and researchers haven't found a way to keep them from happening. Symptoms of glioblastoma multiforme The symptoms of GBM often depend on where the tumor is in the brain. Different parts of the brain control different things. For instance, if a GBM grows in an area that controls your arm movements, your arm may become weak. If it grows in an area that controls your speech, you may have trouble forming words. As the tumor grows, it increases the pressure in the skull and causes more symptoms. GBM symptoms often start slowly and get worse over time. Common symptoms include: Headaches Vision changes Trouble or changes with how you talk, see, and hear Nausea or vomiting Seizures Mood swings Personality changes Trouble concentrating Problems with memory Learning difficulties Changes in how you walk and balance problems Diagnosing glioblastoma multiforme Your healthcare provider will ask about your health history and your symptoms. A physical exam willbe done. This will include checking your vision and hearing, strength, reflexes, and sense of touch. You may be asked questions to check your memory and learning ability. You may be asked to walk around. This is to check your gait, coordination, and balance. Your provider will likely refer you to a specialist to help make the diagnosis. This healthcare provider may be a neurologist or neurosurgeon. These are healthcare providers who specialize in treating diseases of the brain. If you have a tumor, you may also see an oncologist or neuro-oncologist to help plan your treatment. These are healthcare providers who treat cancer. If your healthcare provider thinks you might have a brain tumor, more tests will be needed. These tests can help tell the difference between a tumor and other possible causes of your symptoms, like an infection or stroke. The tests will also help find out if a brain tumor is cancer. Tests used may include: MRI. This test can help find tumors, swelling, bleeding, and signs of stroke. It's the best testto look for GBMs. Magnetic resonance spectroscopy (MRS). This can be done as part of an MRI. It helps look at chemical changes in different parts of the brain. CT scan. This test can help find bleeding in the brain, skull bone changes, and calcium deposits. Needle biopsy. To do this, your provider uses CT or MRI to guide a needle into the tumor so thata tiny piece of it can be taken out and tested for cancer. This is seldom done to diagnose GBM. Instead, surgery is done to take out the tumor and then it's sent for testing. Blood tests. These look for signs of infection or diseases. They also give a sense of your overall health. Last Reviewed Date: 09/20/202119998177-2136 Glovico. All rights reserved. This information is not intended as a substitute for professional medical care. Always follow your healthcare professional's instructions. * Ancillary Progress Note - Salome Hampton RN - 11/18/2023 10:31 AM EST HOME HEALTH/HOSPICE REFERRAL FORM CARE MANAGEMENT [address] [place] [address] Referred By: Salome Hampton RN Admission Date: 11/05/2023 Discharge Date: Discharge Time: 1300 Start Date: 11/18 Agency Referred To: [facility] PATIENT INFORMATION: Name: Remy Lujan Address: [address] [place] [address] [address] [id number] : 1965 Phone: There is no home phone number on file. SSN: [id number] County: [place] Caregiver Name: Candi Mulligan Relationship: Partner Emergency Contacts: Extended Emergency Contact Information Primary Emergency Contact: Candi Mulligan Mobile Relation: Significant Other Firer Kiln needed? No Secondary Emergency Contact: Aureliano Ruiz Mobile Relation: Friend Firer Kiln needed? No MEDICAL INFORMATION: Principal Diagnosis: Brain tumor Other Diagnosis: See attached History and Physical Surgery and Dates: Past Surgical History: Procedure Laterality Date COLONOSCOPY, DIAGNOSTIC (RECTUM) N/A 09/01/2016 normal biopsy/recall 10 years/COLONOSCOPY FLEXIBLE PROXIMAL DIAGNOSTIC performed by Dominik Herrera MD at OR [facility] CORONARY ANGIOGRAPHY W/LEFT HEART CATH Right 08/16/2015 CORONARY ANGIOGRAPHY W/LEFT HEART CATH performed by Joel Brambila MD at [facility]ARD[facility] MICROSURGERY ADD-ON Left 11/10/2023 MICROSURGICAL SURGERY REQUIRING MICROSCOPE LISTED SEPARATELY performed by Matteo Ornelas III, MD at [place] [facility] REMOVE SUPRATENTORIAL BRAIN TUMOR Left 11/10/2023 CRANIOTOMY BONE FLAP EXCISION BRAIN TUMOR SUPRATENTORIAL performed by Matteo Ornelas III, [facility] REMOVE TONSILS & ADENOIDS, UNDER 12 STEREOTACTIC CRANIAL INTRADURAL NAVIGATION Left 11/10/2023 STEREOTACTIC CRANIAL INTRADURAL NAVIGATION performed by Matteo Ornelas III, MD at [place] [facility] Diet: Adults: As tolerated Allergies: Patient has no known allergies. Isolation Type: None Activity Restrictions: Activity as tolerated Isolation For: None HOME CARE ORDERS: (Discipline and Frequency): Snf Overall health assessment and vital signs Medication management and teaching Disease management and teaching Home safety evaluation Assess for services Speech Therapy PT/OT evaluation as indicated Lab work as indicated Medications Dose, Frequency, & Route: Refer to Physician's Discharge Instructions Equipment and Supplies: N/A Ordering Physician and Contact Information: Carrie Adame DO Comments: PCP: PCP: NICOLE GRAMAJO [address] [place] [id number] [phone] D/C Physician: Carrie Adame DO Insurance: See attached facesheet. * Progress Notes - Post-Op Global - Tomás Dowell MD - 11/18/2023 8:19 AM EST NEUROLOGICAL SURGERY PROGRESS NOTE [facility] [address] Name: Remy Lujan Location: [facility] A[facility]A Date: 11/18/2023 Time: 8:19 AM SUBJECTIVE: NAEO OBJECTIVE: Most recent vital signs: BP: 131 mmHg/73 mmHg (11/18/23619) Pulse: 50 (11/18/23619) Temp: 35.72 C (11/18/23619) Temp Summary: Temp Min: 35.7 C (96.3 F) Max: 37 C (98.6 F) SpO2: 96 % (11/18/23619) O2 flow rate: 0 L/MIN (11/18/23221) Supplemental O2 Delivery: Room Air, None (11/18/23805) Vital signs over last 24 hours: Systolic BP: Most Recent Systolic BP Av.3 mmHg Min: 130 mmHg Max: 145 mmHg Temperature: Most Recent Temperature Av.5 C Min: 35.72 C Max: 37 C Pulse: Pulse Avg: Pulse Av.2 Min: 50 Max: 61 Respirations: Resp Av.8 Min: 16 Max: 19 SpO2: SpO2 Av.8 % Min: 96 % Max: 100 % SpO2: SpO2 Av.8 % Min: 96 % Max: 100 % FiO2%: No data recorded ICP: No data found.CPP (adult): No data found.Intake Input/Output: (last 24 hours) Intake/Output Summary (Last 24 hours) at 11/18/2023 0819 Last data filed at 11/17/2023 2200 Gross per 24 hour Intake 960 ml Output -- Net 960 ml Incision: clean, dry, intact Neurologic Examination Awake, alert oriented x3 PERRL EOMI No facial droop No pronator drift MASTERS to command R superior quadrantanopsia RUE 5/5 LUE 5/5 RLE 5/5 LLE 5/5 Sensation grossly intact LABS: Blood count: Lab Results Component Value Date/Time WBC 12.61 (H) 11/18/2023 06:04 AM WBC 6.75 04/02/2020 11:47 AM HGB 13.9 (L) 11/18/2023 06:04 AM HGB 15.0 04/02/2020 11:47 AM HCT 41.2 11/18/2023 06:04 AM HCT 45.6 04/02/2020 11:47 AM PLT 283 11/18/2023 06:04 AM PLT 248 04/02/2020 11:47 AM Coagulation studies: Lab Results Component Value Date/Time INR 1.2 11/18/2023 06:04 AM INR 1.19 (H) 04/02/2020 11:47 AM Chemistry: Lab Results Component Value Date/Time BUN 25 (H) 11/18/2023 06:04 AM BUN 17 04/02/2020 11:47 AM CREAT 1.1 11/18/2023 06:04 AM CREAT 1.1 04/02/2020 11:47 AM GFRESTIMATED >60.0 04/02/2020 11:47 AM NA 135 11/18/2023 06:04 AM NA 138 04/02/2020 11:47 AM POTASSIUM 4.6 11/18/2023 06:04 AM POTASSIUM <2.0 (LL) 11/10/2023 01:50 PM POTASSIUM 4.2 04/02/2020 11:47 AM CO2 26 11/18/2023 06:04 AM CO2 22 04/02/2020 11:47 AM Imaging studies: None new Problem list: Principal Problem: Brain tumor (HCC) Active Problems: Coronary artery disease without angina pectoris HTN, goal below 140/90 Dyslipidemia, goal LDL below 100 Venous insufficiency Class 3 severe obesity due to excess calories with serious comorbidity and body mass index (BMI) of40.0 to 44.9 in adult (HCC) ALEKSANDR (obstructive sleep apnea) Brain mass Palliative care encounter Goals of care, counseling/discussion Cancer related pain Nonintractable headache Postoperative pain Decreased appetite Therapeutic opioid-induced constipation (OIC) Word finding difficulty Agitation Resolved Problems: * No resolved hospital problems. 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 Q4 neurochecks SBP<160 Dex 2 week taper Gi ppx while on steroids Keppra until follow up Mechanical dvt ppx Ok for chemical dvt ppx Ok for bASA starting 11/13 PTOT Dispo to SNF pending, pt and now wanting to be discharged home Will order mdc tumor follow up in 1w Discussed with Dr. Ornelas Associated attestation - Matteo Ornelas III, MD - 11/18/2023 8:25 AM EST I saw and evaluated the patient today. I have reviewed the trainee note and agree. * Care Plan - Krysta Kenyon RN - 11/17/2023 10:50 PM EST Clinical Goal(s): Pt will remain free from falls (11/17/23 1900) Possible barriers to meeting goal(s)/advancing plan of care: weakness Stability of the patient: moderately stable Summary regarding today's goal(s): Met: pt remained free from falls Recommendations: fall precautions, hourly rounding, pain mgmt * Ancillary Progress Note - Samantha Argueta OSA - 11/17/2023 2:23 PM EST 11/17/23 Member: Remy Lujan [facility] Exercise Rider decision: deny acute ip rehab with recommendation for SNF level of care at a [facility] participating provider. SNF auth [id number] . (Note-this is not a reference number for peer to peer). If the Physician in the hospital does not agree with this decision, he/she can call by 16:00 of the following business day and tell the associate he/she would like to speak with our Caser In concerning a denial of acute inpatient rehab admission. Thank you. [facility] Medical Management-Post Acute Team * Ancillary Progress Note - Salome Hampton RN - 11/17/2023 1:38 PM EST CARE MANAGEMENT - ADULT TRANSITION NOTE [facility] [address] Name: Remy Lujan Location: [facility]A Date: 11/17/2023 Time: 1:38 PM Risk Stratification Risk Stratification Psycho Social / Medical Concerns Identified: Adjustment to illness/injury;Cognitive/Functional limitations (11/06/23 1536) Readmission Risk Score: 14.44 (11/17/23 1200) AM-PAC Score With Stairs : 23 (11/17/23 1100) Caregiver Information Patient Contacts Name Relation Home Work Mobile Candi Mulligan Significant Other [phone] Aureliano Ruiz Friend [phone] Ina Butler Adult Child [phone] Transition of Care Checklist Transition of Care Checklist (aka Readmission Risk Score) Discharge Disposition: Home w/Home Health (11/06/231537) Narrative: CM has been following Wesley's hospital course. Discussed in IDT rounds. Wesley is currently medically stable for discharge. At the end of day yesterday, Candi reached out to CM about having discharge plan in place now. Shewould like referral back opened to [facility]. The discharge plan is to prepare patient's home for safe discharge after IRF. HH is requested. CM supported her plan, gave additional information to Candi for private pay services, Waiver steps. CM will continue to follow for additional discharge needs/plans. Anticipated Transportation at Discharge: wheel chair van vs family Patient/Family Expectations: IRF Transition Planning Transition Planning Transition Plan/Considerations: Needs uncertain at this time - Continue monitoring for needs (11/06/231537) [facility] Quality Rating provided to patient: Yes (11/06/231537) Repisodic Choice provided to patient: Yes (11/06/231537) Insurance Considerations: N/A (11/06/231537) Additional Considerations: Care Management will continue to monitor and assist with discharge planning needs * Ancillary Progress Note - Chuy Godinez Chaplain - 11/17/2023 10:30 AM EST PROGRESS NOTE - Spiritual Care Contact Information [facility] [address] Name: Remy Lujan Location: [facility]A Date: 11/17/2023 Time: 10:31 AM Cheondoism: No Jain Pref [66] Jain Affiliations: REASON FOR VISIT: request, continuum of care, and follow-up visit REQUEST RECEIVED FROM: staff member - Name: Unit nursing staff VISIT LENGTH: 15 minutes REQUEST FACTORS (Nature of Situation): Continuum of Care and Follow-up Visit FOCUS OF CARE: Patient SPIRITUAL ASSESSMENT: Jacki or Belief System: Did not identify Most Important Need(s) / Concern(s): Anxiety, Helpless, Isolation, Suffering, and Weary Sense of Community and/or Jain Affiliation: Did not identify Addresses need(s)/concerns(s) and/or ramu through: Did not identify SPIRITUAL CARE PROVIDED: Underwater Welder addressed needs/concerns and/or coping through: [place], Facilitating debriefing, Listening presence, and Supportive dialogue REFERRAL TO: Underwater Welder OUTCOMES: [place], Outcome Unknown ANNOTATION: Visited with patient as a continuum of care/follow-up visit after trying to see patientyesterday. Listened as patient shared some of his story. Patient said he is from [place] and is most anxious to get home. Provided spiritual support, encouragement, and reassurance. Extended blessings to him. Spiritual Care will continue to be available as needed or as requested. * Ancillary Progress Note - Chastity Clifton PTA - 11/17/2023 9:33 AM EST PROGRESS NOTE - Physical Therapy [address] [address] Name: Remy Lujan [place] [facility] Date: 11/17/2023 Time: 9:33 AM Remy Lujan is a/an 58 year old male. Patient Status: Inpatient Insurance: Payor: DENTAQUEST Plan: DENTAQUEST Product Type: *No Product type* Payor: CC Plan: [facility] PSYCH CARVEOUT Product Type: *No Product type* Payor: P FAMILY Plan: P FAMILY PLAN [place] Product Type: *No Product type* Patient Seen: at bedside, nursing cleared patient for therapy Patient Identified By: Name, ID Band and Date Diagnosis: Brain tumor, now s/p L temporal craniomtomy for tumor resection (11/17/23932) Status of treatment: Treatment completed (11/17/23932) Orders: PT evaluation and treatment;OOB (11/17/23932) Weight Bearing Status: Weight bearing as tolerated (11/17/23932) Precautions: Alarms;Falls;Safety (11/17/23932) Total Treatment Time--free text: 10 (11/17/23932) Subjective: Pt was agreeable to work with physical therapy services. Pain: No complaints of pain P.T. Bed Mobility Supine-Sit: Supervision (11/17/23932) Sit-Supine: Supervision (11/17/23932) Transfers Sit-Stand: Supervision (11/17/23932) Stand-Sit: Supervision (11/17/23932) Ambulation: Distance ambulated (feet): 250 Assistive Device: Rolling walker Assist: Supervision Stair Training: Number of stairs: 11 Number of handrails: bilateral handrails Level of Assistance: supervision Balance Sit (Static): Fair (11/17/23932) Sit (Dynamic): Fair (11/17/23932) Stand (Static): Fair (11/17/23932) Stand (Dynamic): Fair (11/17/23932) Patient and or Family Goal(s): to get well Topic of Education: Safety with mobility and Stair training Method of Education: Verbal discussion and explanation provided to patient: verbalized understanding and or agreement of this information and demonstrated the exercise and or task Treatment Provided: Gait Training 10 minutes: gait training with no device Alarm Status Patient positioned in: Bed (11/17/23932) With: Call brunner in reach (bed alarm not activated upon arrival. Nursing aware.) (11/17/23932) Patient Education Review of Precautions: Safety;Fall (11/17/23932) Safety Awareness: Patient verbalizes insight of current deficits;Patient demonstrates carryover of insight during functional tasks;Patient can communicate basic needs (11/17/23932) Preferred learning method: Combination (11/17/23932) Barriers to learning: Hearing;Speaking;Medical Status (occasional difficulty with word finding) (11/17/23932) Method of Education: Verbalized to patient;Patient demonstrated task (11/17/23932) Assessment: Pt was seen supine in bed upon arrival and agreeable to work with physical therapy services. Pt performed supine to sit and sit to stand with supervision requiring approximately 1 minute of static standing to allow slight dizziness subside. Pt continues to ambulate 250 feet demonstrating a slightly unsteady gait and slight anterior lean requiring supervision and verbal cues to correct. Pt also ascended and descended 11 steps while using bilateral handrails with supervision. Pt returned to room and performed stand to sit and sit to supine into bed. Pt continues to require supervision and cueing with mobility due to slight unsteadiness. Pt was left supine in bed with pillows for comfort and call brunner in reach (bed alarm not activated upon arrival and nursing made aware). Please consider home with post-acute care services which may include home health or outpatient therapy. Thelevel of care will be determined in collaboration with the patient, family/caregiver and care team members. Deficits requiring P.T. treatment needs: Safety;Mobility;Balance;Weakness;Endurance;Lower extremitystrength (11/17/23932) Plan: Continue with current treatment plan established on evaluation. AM PAC Score with Stairs: 20 A portion of this AM-PAC assessment not scored based on functional assessment; rather clinical decision making utilized based on current findings and/or prior level of function. Please refer to future AM-PAC calculations of functional ability as they become available. * Progress Notes - Post-Op Global - Tomás Dowell MD - 11/17/2023 8:16 AM EST NEUROLOGICAL SURGERY [place] [facility] [address] Name: Remy Lujan [place] [facility] Date: 11/17/2023 Time: 8:16 AM SUBJECTIVE: NAEO OBJECTIVE: Most recent vital signs: BP: 124 mmHg/71 mmHg (11/17/23643) Pulse: 50 (11/17/23643) Temp: 36.39 C (11/17/23643) Temp Summary: Temp Min: 36 C (96.8 F) Max: 36.6 C (97.9 F) SpO2: 98 % (11/17/23643) O2 flow rate: 0 L/MIN (11/16/232221) Supplemental O2 Delivery: Non-Invasive CPAP/BiPAP (11/17/23643) Vital signs over last 24 hours: Systolic BP: Most Recent Systolic BP Av.6 mmHg Min: 124 mmHg Max: 167 mmHg Temperature: Most Recent Temperature Av.3 C Min: 36 C Max: 36.61 C Pulse: Pulse Avg: Pulse Av.6 Min: 50 Max: 78 Respirations: Resp Av.5 Min: 16 Max: 20 SpO2: SpO2 Av.3 % Min: 95 % Max: 98 % SpO2: SpO2 Av.3 % Min: 95 % Max: 98 % FiO2%: No data recorded ICP: No data found.CPP (adult): No data found.Intake Input/Output: (last 24 hours) Intake/Output Summary (Last 24 hours) at 11/17/2023 0816 Last data filed at 11/16/2023 1800 Gross per 24 hour Intake 1080 ml Output -- Net 1080 ml Incision: clean, dry, intact Neurologic Examination Awake, alert PERRL EOMI No facial droop No pronator drift MASTERS to command R superior quadrantanopsia RUE 5/5 LUE 5/5 RLE 5/5 LLE 5/5 Sensation grossly intact LABS: Blood count: Lab Results Component Value Date/Time WBC 15.15 (H) 11/17/2023 06:27 AM WBC 6.75 04/02/2020 11:47 AM HGB 13.8 (L) 11/17/2023 06:27 AM HGB 15.0 04/02/2020 11:47 AM HCT 42.1 11/17/2023 06:27 AM HCT 45.6 04/02/2020 11:47 AM PLT 312 11/17/2023 06:27 AM PLT 248 04/02/2020 11:47 AM Coagulation studies: Lab Results Component Value Date/Time INR 1.1 11/17/2023 06:27 AM INR 1.19 (H) 04/02/2020 11:47 AM Chemistry: Lab Results Component Value Date/Time BUN 25 (H) 11/17/2023 06:27 AM BUN 17 04/02/2020 11:47 AM CREAT 1.2 11/17/2023 06:27 AM CREAT 1.1 04/02/2020 11:47 AM GFRESTIMATED >60.0 04/02/2020 11:47 AM NA 138 11/17/2023 06:27 AM NA 138 04/02/2020 11:47 AM POTASSIUM 4.8 11/17/2023 06:27 AM POTASSIUM <2.0 (LL) 11/10/2023 01:50 PM POTASSIUM 4.2 04/02/2020 11:47 AM CO2 27 11/17/2023 06:27 AM CO2 22 04/02/2020 11:47 AM Imaging studies: None new Problem list: Principal Problem: Brain tumor (HCC) Active Problems: Coronary artery disease without angina pectoris HTN, goal below 140/90 Dyslipidemia, goal LDL below 100 Venous insufficiency Class 3 severe obesity due to excess calories with serious comorbidity and body mass index (BMI) of40.0 to 44.9 in adult (HCC) ALEKSANDR (obstructive sleep apnea) Brain mass Palliative care encounter Goals of care, counseling/discussion Cancer related pain Nonintractable headache Postoperative pain Decreased appetite Therapeutic opioid-induced constipation (OIC) Word finding difficulty Agitation Resolved Problems: * No resolved hospital problems. 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 Q4 neurochecks SBP<160 Dex 2 week taper Gi ppx while on steroids Keppra until follow up Mechanical dvt ppx Ok for chemical dvt ppx Ok for bASA starting 11/13 PTOT Dispo to SNF pending acceptance, several referrals sent Discussed with Dr. Ornelas Associated attestation - Matteo Ornelas III, MD - 11/17/2023 8:32 AM EST I saw and evaluated the patient today. I have reviewed the trainee note and agree. * Care Plan - Arturo Hatfield RN - 11/17/2023 4:44 AM EST Clinical Goal(s): pt will remain free from falls (11/16/231956) Possible barriers to meeting goal(s)/advancing plan of care: pain Stability of the patient: Moderately stable - low risk of patient condition declining or worsening Summary regarding today's goal(s): Met: Patient remained free from falls Recommendations: Continue implementing fall precautions and purposeful hourly rounding. * Ancillary Progress Note - Chuy Godinez Chaplain - 11/16/2023 4:41 PM EST PROGRESS NOTE - Spiritual Care Contact Information [address] [address] Name: Remy Lujan [place] [facility] Date: 11/16/2023 Time: 4:41 PM Cheondoism: No Jain Pref [66] Jain Affiliations: REASON FOR VISIT: request REQUEST RECEIVED FROM: staff member - Name: Unit Nursing Staff VISIT LENGTH: 15 minutes REQUEST FACTORS (Nature of Situation): Initial Visit FOCUS OF CARE: Patient SPIRITUAL ASSESSMENT: Jacki or Belief System: Did not identify Most Important Need(s) / Concern(s): Did not identify Sense of Community and/or Jain Affiliation: Did not identify Addresses need(s)/concerns(s) and/or ramu through: Did not identify SPIRITUAL CARE PROVIDED: addressed needs/concerns and/or coping through: Never got to see patient. Will try again on 11/17/2023 REFERRAL TO: OUTCOMES: Outcome Unknown ANNOTATION: Attempted to visit with patient multiple times during the day at the request of the unit nursing staff. Patient was off of the floor, with the medical team, or asleep. Will attempt another visit on 11/17/2023. Spiritual Care will continue to be available as needed or as requested. * Ancillary Progress Note - Vitor Beltran OTR/Tiffany - 11/16/2023 11:32 AM EST PROGRESS NOTE - Occupational Therapy [address] [address] Name: Remy Lujan [place] [facility] Date: 11/16/2023 Time: 11:32 AM Remy Lujan is a 58 year old male. Patient Status: Inpatient Insurance: Payor: DENTAQUEST Plan: DENTAQUEST Product Type: *No Product type* Payor: [facility] Plan: [facility] PSYCH CARVEOUT Product Type: *No Product type* Payor: [facility] FAMILY Plan: [facility] FAMILY PLAN [place] Product Type: *No Product type* Patient Seen: at bedside, nursing cleared patient for therapy Patient Identified By: Name, ID Band and Date Diagnosis: brain tumor s/p crani for resection (11/16/231045) Status of treatment: Treatment completed (11/16/231045) Orders: OT evaluation and treatment;OT OOB (11/16/231045) Weight Bearing Status: Weight bearing as tolerated (11/16/231045) Precautions: Alarms;Falls;Safety (11/16/231045) Total Treatment Time: 19 (11/11/23 08) Subjective: Pt supine in bed, agreeable to OT session. Pain: No complaints of pain Observations Consciousness: Alert (11/16/231045) Orientation: Oriented times 4 (11/16/231045) Psychosocial: Patient can communicate basic needs (somewhat limited due to aphasia) (11/16/231045) Sitting posture: Forward head;Rounded shoulders (11/16/231045) Standing posture: Forward head;Rounded shoulders (11/16/231045) Safety awareness: The Patient verbalizes insight of current deficits.;Needs cueing supervision. (11/16/231045) Other Findings Endurance: Good (11/16/231045) Current Functional Status: Activities of Daily Living: Self Care Feeding: Independent (11/16/231045) Grooming: Supervision (Please comment) (brush teeth standing at sink) (11/16/231045) Toileting: Supervision (Please comment) (11/16/231045) Dressing Lower Body: Supervision (Please comment) (to doff/don socks) (11/16/231045) Bathing Lower Body: Supervision (Please comment) (to wash feet) (11/16/231045) Functional Ambulation Assistive Device: No device (11/16/231045) Distance in feet:: 500 (+ 25) (11/16/231045) Level of Assistance: Supervision (Please Comment) (11/16/231045) Bed Mobility Supine-Sit: Modified Independent (11/16/231045) Sit-Supine: Modified Independent (11/16/231045) OT Transfers Sit-Stand: Supervision (Please comment) (11/16/231045) Stand-Sit: Supervision (Please comment) (11/16/231045) Toilet: Supervision (Please comment) (11/16/231045) Balance Sit (Static): Good (11/16/231045) Sit (Dynamic): Good (11/16/231045) Stand (Static): Fair (11/16/231045) Stand (Dynamic): Fair (11/16/231045) Patient Education Education Topic: Role of OT;Plan of care goals (11/16/231045) Review of Precautions: Safety (11/16/231045) Method of Education: Verbalized to patient (11/16/231045) Education Provided to: Patient;Other - describe (friend, Candi) (11/16/231045) Response to Education: Receptive and agreeable to education (11/16/231045) Barriers to learning: Speaking;Cognition;Reading skills (11/16/231045) Preferred learning method: Combination (11/16/231045) Alarm Status Patient positioned in: Bed (11/16/231045) With: Bed alarm intact and functioning and call brunner in reach (11/16/231045) Treatment Provided: Self Intermediate Management Trainin minutes Therapeutic Activity: 16 minutes Deficits requiring O.T. treatment needs: ADL/self- care;Balance;Endurance;Functional mobility;Safety;Functional cognition (11/16/231045) Assessment: Patient is a 58 yo male who was admitted [place] [facility] [place] a dx of brain tumor now s/p crani for resection. Upon arrival pt was supine in bed, aphasia still somewhat limiting communication at this time however is typically able to express needs. Patient completed supine<>sit this date with Mod I. Sit/stand transfers from bedside completed with supervision and functional mobility of 25f t performed with same and no device. He completed grooming tasks while standing at sink with supervision, using items appropriately, however 1 minor LOB noted but patient able to self-correct. Toileting tasks also completed with supervision and while seated edge of bed pt able to complete LB bathing and doff/don socks with supervision as well. Further mobility of 500ft completed in hallway with no device at supervision level. Patient inquired about shower and being able to walk/get outside in which therapist spoke with NOA Chapman about and reaching out to service. Of note, patient's friend, Candi was present during session and also expressed concerns of patients ability to manage medication, e tc. At home due to inability to read/cognitive deficits at this time. Though patient is functionally able to complete self-care tasks and mobility without assistance it is felt he is unsafe to returnhome alone at this time due to cognitive deficits. Patient would continue to benefit from skilled OT services to address noted deficits and improve independence and safety with functional tasks. Please consider post-acute care services which may include home health, group home, outpatient therapy or inpatient rehabilitation. The level of care will be determined in collaboration with patient,family/caregiver and care team members. Plan: Continue with plan of care established on initial evaluation Anticipated Frequency (on eval): 1 to 3 times per week (11/16/231045) Equipment Equipment used in Therapy: No Device (11/16/231045) AM-PAC Help From Another Person Eating Meals: None (11/16/231045) Help From Another Person Taking Care of Personal Grooming: A little (11/16/231045) Help From Another Person To Put On/Take Off Upper Body Clothing: A little (11/16/231045) Help From Another Person To Put On/Take Off Lower Body Clothing: A little (11/16/231045) Help From Another Person Toileting: A little (11/16/231045) Help From Another Person Bathing: A little (11/16/231045) OT AM-PAC Score: 19 (11/16/231045) OT AM-PAC t-Scale Score: 40.22 (11/16/231045) HLM (Highest Level of Mobility) Goal: Level 6 walk 10 steps or more (11/16/23 0800) A portion of this AM-PAC assessment not scored based on functional assessment; rather clinical decision making utilized based on current findings and/or prior level of function. Please refer to future AM-PAC calculations of functional ability as they become available. * Ancillary Progress Note - Salome Hampton RN - 11/16/2023 11:08 AM EST CARE MANAGEMENT - ADULT TRANSITION NOTE [address] [address] Name: Remy Lujan [place] [facility] Date: 11/16/2023 Time: 11:08 AM Risk Stratification Risk Stratification Psycho Social / Medical Concerns Identified: Adjustment to illness/injury;Cognitive/Functional limitations (11/06/23 1536) Readmission Risk Score: 16.21 (11/16/23 0800) AM-PAC Score With Stairs : 18 (11/16/23 0800) Caregiver Information Patient Contacts Name Relation Home Work Mobile Candi Mulligan Significant Other [phone] Aureliano Ruiz Friend [phone] Ina Butler Adult Child [phone] Transition of Care Checklist Transition of Care Checklist (aka Readmission Risk Score) Discharge Disposition: Home w/Home Health (11/06/23 1538) Narrative: CM has been following Remy's hospital course. Discussed in IDT rounds. Remy is currently medically stable for discharge. Palliative, Dr. Mendoza spoke to Candi and Remy. [facility] for L[facility] Constantino Nogueirael Den Christopher changed her mind, too far. Cm will follow up on new referrals: Martha Winn requests to faxed [phone] [facility], no beds. LTC does not [facility], no beds [facility] ([facility]) [facility] only Declined at: [facility], does not qualify [facility], no beds [facility], no beds [facility], no beds [facility], no beds CM will begin MA51 process to aid with prison placement. Paperwork completed and submitted to [facility] to forward. Candi requests spiritual care to see Wesley and possibly the therapy dog. Harley, Solution Sales Senior Executive notified. CM will continue to follow for additional discharge needs/plans. Anticipated Transportation at Discharge: BLS Patient/Family Expectations: SNF Transition Planning Transition Planning Transition Plan/Considerations: Needs uncertain at this time - Continue monitoring for needs (11/06/231537) [facility] Quality Rating provided to patient: Yes (11/06/231537) Repisodic Choice provided to patient: Yes (11/06/231537) Insurance Considerations: N/A (11/06/231537) Additional Considerations: Care Management will continue to monitor and assist with discharge planning needs * Progress Notes - Post-Op Global - Tomás Dowell MD - 11/16/2023 6:56 AM EST NEUROLOGICAL SURGERY [place]GR[place] [facility] [place] [address] Name: Remy Lujan [place] [facility] Date: 11/16/2023 Time: 6:56 AM SUBJECTIVE: NAEO OBJECTIVE: Most recent vital signs: BP: 127 mmHg/69 mmHg (11/16/23599) Pulse: 81 (11/16/23599) Temp: 36.28 C (11/16/23599) Temp Summary: Temp Min: 36.2 C (97.2 F) Max: 37 C (98.6 F) SpO2: 97 % (11/16/23599) O2 flow rate: 0 L/MIN (11/15/232252) Supplemental O2 Delivery: Non-Invasive CPAP/BiPAP (11/16/23599) Vital signs over last 24 hours: Systolic BP: Most Recent Systolic BP Av.7 mmHg Min: 127 mmHg Max: 158 mmHg Temperature: Most Recent Temperature Av.5 C Min: 36.22 C Max: 37 C Pulse: Pulse Avg: Pulse Av.1 Min: 51 Max: 81 Respirations: Resp Av Min: 18 Max: 18 SpO2: SpO2 Av.1 % Min: 93 % Max: 98 % SpO2: SpO2 Av.1 % Min: 93 % Max: 98 % FiO2%: O2 % Av % Min: 21 % Max: 21 % ICP: No data found.CPP (adult): No data found.Intake Input/Output: (last 24 hours) Intake/Output Summary (Last 24 hours) at 11/16/2023 0656 Last data filed at 11/16/2023 0130 Gross per 24 hour Intake 1560 ml Output -- Net 1560 ml Incision: clean, dry, intact Neurologic Examination Awake, alert PERRL EOMI No facial droop No pronator drift MASTERS to command R superior quadrantanopsia RUE 5/5 LUE 5/5 RLE 5/5 LLE 5/5 Sensation grossly intact LABS: Blood count: Lab Results Component Value Date/Time WBC 10.16 11/15/2023 07:19 AM WBC 6.75 04/02/2020 11:47 AM HGB 13.3 (L) 11/15/2023 07:19 AM HGB 15.0 04/02/2020 11:47 AM HCT 38.8 (L) 11/15/2023 07:19 AM HCT 45.6 04/02/2020 11:47 AM PLT 271 11/15/2023 07:19 AM PLT 248 04/02/2020 11:47 AM Coagulation studies: Lab Results Component Value Date/Time INR 1.2 11/15/2023 07:20 AM INR 1.19 (H) 04/02/2020 11:47 AM Chemistry: Lab Results Component Value Date/Time BUN 24 (H) 11/15/2023 07:20 AM BUN 17 04/02/2020 11:47 AM CREAT 1.0 11/15/2023 07:20 AM CREAT 1.1 04/02/2020 11:47 AM GFRESTIMATED >60.0 04/02/2020 11:47 AM NA 137 11/15/2023 07:20 AM NA 138 04/02/2020 11:47 AM POTASSIUM 4.6 11/15/2023 07:20 AM POTASSIUM <2.0 (LL) 11/10/2023 01:50 PM POTASSIUM 4.2 04/02/2020 11:47 AM CO2 24 11/15/2023 07:20 AM CO2 22 04/02/2020 11:47 AM Imaging studies: None new Problem list: Principal Problem: Brain tumor (HCC) Active Problems: Coronary artery disease without angina pectoris HTN, goal below 140/90 Dyslipidemia, goal LDL below 100 Venous insufficiency Class 3 severe obesity due to excess calories with serious comorbidity and body mass index (BMI) of40.0 to 44.9 in adult (HCC) ALEKSANDR (obstructive sleep apnea) Brain mass Palliative care encounter Goals of care, counseling/discussion Cancer related pain Nonintractable headache Postoperative pain Decreased appetite Therapeutic opioid-induced constipation (OIC) Word finding difficulty Agitation Resolved Problems: * No resolved hospital problems. 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 Q4 neurochecks SBP<160 Dex 2 week taper Gi ppx while on steroids Keppra until follow up Mechanical dvt ppx Ok for chemical dvt ppx Ok for bASA starting 11/13 PTOT Dispo to SNF pending acceptance, several referrals sent Discussed with Dr. Ornelas Associated attestation - Matteo Ornelas III, MD - 11/16/2023 7:08 AM EST I saw and evaluated the patient today. I have reviewed the trainee note and agree. * Care Plan - Krysta Kenyon RN - 11/15/2023 10:54 PM EST Clinical Goal(s): Pt will remain free from falls (11/15/23 1900) Possible barriers to meeting goal(s)/advancing plan of care: weakness, pain Stability of the patient: Moderately stable - low risk of patient condition declining or worsening Summary regarding today's goal(s): Met: pt remained free from falls Recommendations: fall precautions, hourly rounding, pain mgmt * Communication - Digna Hanna CRNP - 11/15/2023 4:25 PM EST ASSESSMENT: 58M admitted with L temporoparietal junction mass s/p L temporal craniotomy 11/10 [Dr Ornelas], path c/w Glioblastoma, IDH-wild type, WHO grade 4 PLAN: Outpatient follow up in neuro [facility] as scheduled on 11/22/23. * Ancillary Progress Note - Salome Hampton RN - 11/15/2023 2:37 PM EST CARE MANAGEMENT - ADULT TRANSITION [place] [facility] [address] Name: Remy Lujan [place] [facility] Date: 11/15/2023 Time: 2:37 PM Risk Stratification Risk Stratification Psycho Social / Medical Concerns Identified: Adjustment to illness/injury;Cognitive/Functional limitations (11/06/231535) Readmission Risk Score: 15.85 (11/15/23 1200) AM-PAC Score With Stairs : 18 (11/15/23 0800) Caregiver Information Patient Contacts Name Relation Home Work Mobile Candi Mulligan Significant Other [phone] Aureliano Ruiz Friend [phone] Ina Butler Adult Child [phone] Transition of Care Checklist Transition of Care Checklist (aka Readmission Risk Score) Discharge Disposition: Home w/Home Health (11/06/231537) Narrative: CM has been following Remy's hospital course. Discussed in IDT rounds. Remy is currently medically stable for discharge. [facility] [phone] [facility], referral faxed to [phone] [facility], no beds, [facility], will follow up tomorrow/Wednesday CM spoke to Candi, need for more options for SNF placement. List was sent via text to her for choices. [phone] referrals placed to: [facility] CM will continue to follow for additional discharge needs/plans. Anticipated Transportation at Discharge: BLS Patient/Family Expectations: SNF Transition Planning Transition Planning Transition Plan/Considerations: Needs uncertain at this time - Continue monitoring for needs (11/06/231537) CMS Quality Rating provided to patient: Yes (11/06/231537) Repisodic Choice provided to patient: Yes (11/06/231537) Insurance Considerations: N/A (11/06/231537) Additional Considerations: Care Management will continue to monitor and assist with discharge planning needs * Ancillary Progress Note - Prema Avila RDN - 11/15/2023 11:32 AM EST CLINICAL NUTRITION ADULT RISK ASSESSMENT [address] [address] Name: Remy Lujan [place] [facility] [place] Date: 11/15/2023 Time: 11:05 AM How patient was identified (select 2): date and Name Remy Lujan is a 58 year old male being assessed for clinical nutrition risk related to extended LOS Primary diagnosis: Brain tumor, now s/p L temporal craniotomy Other pertinent information: patient stated he has a hard time finding words so asked yes/no questions to help pt. 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 Denies trouble chewing/swallowing.. Was getting IMPACT AR however noted order has . Anthropometrics Measurements Admission weight (for dietitians): 146.7 kg Height: 188 cm (6' 2") (11/05/23 2212) Weight: (!) 147.3 kg (324 lb 12.8 oz) (11/15/23 0315) Usual Body Weight or EDW for Dialysis Patients: 131-132 kg Diet: Regular Previously followed diet: regular Food Allergies/Intolerances: none Oral Nutrition Supplement (ONS): none Pertinent medications/vitamins/minerals/supplements: pepcid RISK FACTORS: Adult Energy Intake: No significant decrease Interpretation of Weight Change: Weight gain Skin: surgical only NUTRITION RISK CATEGORY: Nutrition Risk Category: Low/Moderate (0-1 factors) Clinical Nutrition Recommendations: Diet: Continue current nutrition plan NUTRITION INTERVENTION/PLAN: Continue current care plan Will follow and adjust nutritional plan as medical condition requires. Please contact for change(s)in patient condition requiring earlier intervention. Prema Avila, MS, RD, LDN, FNKF Clinical Dietitian [facility]: [phone] [place] Text * Progress Notes - Post-Op Global - Tomás Dowell MD - 11/15/2023 6:50 AM EST NEUROLOGICAL SURGERY PROGRESS NOTE [address] [address] Name: Remy Lujan [place] [facility] [place] [facility] Date: 11/15/2023 Time: 6:50 AM SUBJECTIVE: NAEO OBJECTIVE: Most recent vital signs: BP: 136 mmHg/75 mmHg (11/15/23628) Pulse: 52 (11/15/23628) Temp: 36.28 C (11/15/23628) Temp Summary: Temp Min: 36.3 C (97.3 F) Max: 36.7 C (98.1 F) SpO2: 98 % (11/15/23628) O2 flow rate: 0 L/MIN (11/15/23628) Supplemental O2 Delivery: Room Air, None (11/15/23628) Vital signs over last 24 hours: Systolic BP: Most Recent Systolic BP Av.8 mmHg Min: 128 mmHg Max: 158 mmHg Temperature: Most Recent Temperature Av.5 C Min: 36.28 C Max: 36.72 C Pulse: Pulse Avg: Pulse Av.2 Min: 52 Max: 73 Respirations: Resp Av.3 Min: 16 Max: 18 SpO2: SpO2 Av.3 % Min: 95 % Max: 98 % SpO2: SpO2 Av.3 % Min: 95 % Max: 98 % FiO2%: No data recorded ICP: No data found.CPP (adult): No data found.Intake Input/Output: (last 24 hours) No intake or output data in the 24 hours ending 11/15/23 0650 Incision: clean, dry, intact Neurologic Examination Awake, alert PERRL EOMI No facial droop No pronator drift MASTERS to command R superior quadrantanopsia RUE 5/5 LUE 5/5 RLE 5/5 LLE 5/5 Sensation grossly intact LABS: Blood count: Lab Results Component Value Date/Time WBC 10.25 11/14/2023 07:15 AM WBC 6.75 04/02/2020 11:47 AM HGB 12.7 (L) 11/14/2023 07:15 AM HGB 15.0 04/02/2020 11:47 AM HCT 37.4 (L) 11/14/2023 07:15 AM HCT 45.6 04/02/2020 11:47 AM PLT 249 11/14/2023 07:15 AM PLT 248 04/02/2020 11:47 AM Coagulation studies: Lab Results Component Value Date/Time INR 1.2 11/14/2023 07:15 AM INR 1.19 (H) 04/02/2020 11:47 AM Chemistry: Lab Results Component Value Date/Time BUN 24 (H) 11/14/2023 07:15 AM BUN 17 04/02/2020 11:47 AM CREAT 1.1 11/14/2023 07:15 AM CREAT 1.1 04/02/2020 11:47 AM GFRESTIMATED >60.0 04/02/2020 11:47 AM NA 138 11/14/2023 07:15 AM NA 138 04/02/2020 11:47 AM POTASSIUM 4.7 11/14/2023 07:15 AM POTASSIUM <2.0 (LL) 11/10/2023 01:50 PM POTASSIUM 4.2 04/02/2020 11:47 AM CO2 26 11/14/2023 07:15 AM CO2 22 04/02/2020 11:47 AM Imaging studies: None new Problem list: Principal Problem: Brain tumor (HCC) Active Problems: Coronary artery disease without angina pectoris HTN, goal below 140/90 Dyslipidemia, goal LDL below 100 Venous insufficiency Class 3 severe obesity due to excess calories with serious comorbidity and body mass index (BMI) of40.0 to 44.9 in adult (HCC) ALEKSANDR (obstructive sleep apnea) Brain mass Palliative care encounter Goals of care, counseling/discussion Cancer related pain Nonintractable headache Postoperative pain Decreased appetite Therapeutic opioid-induced constipation (OIC) Word finding difficulty Agitation Resolved Problems: * No resolved hospital problems. 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 Q4 neurochecks SBP<160 Dex 2 week taper Gi ppx while on steroids Keppra until follow up Mechanical dvt ppx Ok for chemical dvt ppx Ok for bASA starting 11/13 PTOT Dispo to SNF pending acceptance D/w Dr. Ornelas Associated attestation - Ceci III, Matteo Hall MD - 11/15/2023 8:25 AM EST I saw and evaluated the patient today. I have reviewed the trainee note and agree. * Care Plan - Krysta Kenyon RN - 11/14/2023 7:48 PM EST Clinical Goal(s): Pt will remain free from falls (11/14/230) Possible barriers to meeting goal(s)/advancing plan of care: weakness, pain Stability of the patient: Moderately stable - low risk of patient condition declining or worsening Summary regarding today's goal(s): Met: pt remained free from falls Recommendations: fall prec, hourly rounding, pain mgmt * Progress Notes - Post-Op Global - Tomás Dowell MD - 11/14/2023 9:20 AM EST NEUROLOGICAL SURGERY [place]GR[place] [facility] [address] Name: Remy Lujan [place] [facility] [place] [facility] Date: 11/14/2023 Time: 9:20 AM SUBJECTIVE: NAEO OBJECTIVE: Most recent vital signs: BP: 126 mmHg/69 mmHg (11/14/23608) Pulse: 54 (11/14/23608) Temp: 36.22 C (11/14/23608) Temp Summary: Temp Min: 36 C (96.8 F) Max: 36.2 C (97.2 F) SpO2: 98 % (11/14/23608) O2 flow rate: 0 L/MIN (11/13/232110) Supplemental O2 Delivery: Room Air, None (11/14/23809) Vital signs over last 24 hours: Systolic BP: Most Recent Systolic BP Av.3 mmHg Min: 116 mmHg Max: 159 mmHg Temperature: Most Recent Temperature Av.1 C Min: 36 C Max: 36.22 C Pulse: Pulse Avg: Pulse Av Min: 52 Max: 68 Respirations: Resp Av.3 Min: 16 Max: 18 SpO2: SpO2 Av.3 % Min: 96 % Max: 99 % SpO2: SpO2 Av.3 % Min: 96 % Max: 99 % FiO2%: No data recorded ICP: No data found.CPP (adult): No data found.Intake Input/Output: (last 24 hours) Intake/Output Summary (Last 24 hours) at 11/14/2023 0920 Last data filed at 11/13/2023 2100 Gross per 24 hour Intake 960 ml Output -- Net 960 ml Incision: clean, dry, intact Neurologic Examination GCS 15 Awake, alert, oriented to person, place, time Mild mixed aphasia PERRL EOMI No facial droop No pronator drift MASTERS to command R superior quadrantanopsia RUE 5/5 LUE 5/5 RLE 5/5 LLE 5/5 Sensation grossly intact LABS: Blood count: Lab Results Component Value Date/Time WBC 10.25 11/14/2023 07:15 AM WBC 6.75 04/02/2020 11:47 AM HGB 12.7 (L) 11/14/2023 07:15 AM HGB 15.0 04/02/2020 11:47 AM HCT 37.4 (L) 11/14/2023 07:15 AM HCT 45.6 04/02/2020 11:47 AM PLT 249 11/14/2023 07:15 AM PLT 248 04/02/2020 11:47 AM Coagulation studies: Lab Results Component Value Date/Time INR 1.2 11/14/2023 07:15 AM INR 1.19 (H) 04/02/2020 11:47 AM Chemistry: Lab Results Component Value Date/Time BUN 24 (H) 11/14/2023 07:15 AM BUN 17 04/02/2020 11:47 AM CREAT 1.1 11/14/2023 07:15 AM CREAT 1.1 04/02/2020 11:47 AM GFRESTIMATED >60.0 04/02/2020 11:47 AM NA 138 11/14/2023 07:15 AM NA 138 04/02/2020 11:47 AM POTASSIUM 4.7 11/14/2023 07:15 AM POTASSIUM <2.0 (LL) 11/10/2023 01:50 PM POTASSIUM 4.2 04/02/2020 11:47 AM CO2 26 11/14/2023 07:15 AM CO2 22 04/02/2020 11:47 AM Imaging studies: None new Problem list: Principal Problem: Brain tumor (HCC) Active Problems: Coronary artery disease without angina pectoris HTN, goal below 140/90 Dyslipidemia, goal LDL below 100 Venous insufficiency Class 3 severe obesity due to excess calories with serious comorbidity and body mass index (BMI) of40.0 to 44.9 in adult (HCC) ALEKSANDR (obstructive sleep apnea) Brain mass Palliative care encounter Goals of care, counseling/discussion Cancer related pain Nonintractable headache Postoperative pain Decreased appetite Therapeutic opioid-induced constipation (OIC) Word finding difficulty Agitation Resolved Problems: * No resolved hospital problems. 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 Q4 neurochecks SBP<160 Dex 2 week taper Gi ppx while on steroids Keppra until follow up Mechanical dvt ppx Ok for chemical dvt ppx Ok for bASA starting 11/13 Ptot, disp likely to rehab vs snf as pt lives home alone D/w Dr. Palma Associated attestation - Jcarlos Palma MD - 11/14/2023 9:39 AM EST I saw and evaluated the patient today. I have reviewed the trainee note and agree. I saw the patient on rounds this morning with the PA/resident team. Agree with the findings. I had a long discussion with the patient as well as his , who was calling in on the telephone. We did discuss the surgery as well as the postoperative expectations. I did answer all their questions to their satisfaction. Continue current management, progress towards discharge. Jcarlos Palma [facility] Neurosurgery This document was dictated using voice recognition software. Please excuse any errors. * Care Plan - Krysta Kenyon RN - 11/13/2023 9:13 PM EST Clinical Goal(s): Pt will remain free from falls (11/13/23 1900) Possible barriers to meeting goal(s)/advancing plan of care: weakness, change in mental status Stability of the patient: Moderately stable - low risk of patient condition declining or worsening Summary regarding today's goal(s): Met: pt remained free from falls Recommendations: fall precautions, hourly rounding, pain mgmt * Progress Notes - Post-Op Global - Andi Maria MD - 11/13/2023 11:44 AM EST NEUROLOGICAL SURGERY PROGRESS NOTE [address] [address] Name: Remy Lujan [place] [facility] [place] Date: 11/13/2023 Time: 11:44 AM SUBJECTIVE: NAEO OBJECTIVE: Most recent vital signs: BP: 120 mmHg/64 mmHg (11/13/231006) Pulse: 64 (11/13/231006) Temp: 36 C (11/13/231006) Temp Summary: Temp Min: 35.9 C (96.6 F) Max: 37 C (98.6 F) SpO2: 97 % (11/13/231006) O2 flow rate: 0 L/MIN (11/13/231006) Supplemental O2 Delivery: Room Air, None (11/13/231006) Vital signs over last 24 hours: Systolic BP: Most Recent Systolic BP Av.5 mmHg Min: 117 mmHg Max: 160 mmHg Temperature: Most Recent Temperature Av.5 C Min: 35.89 C Max: 37 C Pulse: Pulse Avg: Pulse Av.7 Min: 53 Max: 81 Respirations: Resp Av.3 Min: 16 Max: 18 SpO2: SpO2 Av.3 % Min: 95 % Max: 98 % SpO2: SpO2 Av.3 % Min: 95 % Max: 98 % FiO2%: No data recorded ICP: No data found.CPP (adult): No data found.Intake Input/Output: (last 24 hours) Intake/Output Summary (Last 24 hours) at 11/13/2023 1144 Last data filed at 11/13/2023 1125 Gross per 24 hour Intake 720 ml Output -- Net 720 ml Incision: clean, dry, intact Neurologic Examination GCS 15 Awake, alert, oriented to person, place, time Mild mixed aphasia PERRL EOMI No facial droop No pronator drift MASTERS to command R superior quadrantanopsia RUE 5/5 LUE 5/5 RLE 5/5 LLE 5/5 Sensation grossly intact LABS: Blood count: Lab Results Component Value Date/Time WBC 11.63 (H) 11/13/2023 06:56 AM WBC 6.75 04/02/2020 11:47 AM HGB 13.5 (L) 11/13/2023 06:56 AM HGB 15.0 04/02/2020 11:47 AM HCT 40.1 11/13/2023 06:56 AM HCT 45.6 04/02/2020 11:47 AM PLT 265 11/13/2023 06:56 AM PLT 248 04/02/2020 11:47 AM Coagulation studies: Lab Results Component Value Date/Time INR 1.2 11/13/2023 06:57 AM INR 1.19 (H) 04/02/2020 11:47 AM Chemistry: Lab Results Component Value Date/Time BUN 23 (H) 11/13/2023 06:56 AM BUN 17 04/02/2020 11:47 AM CREAT 1.0 11/13/2023 06:56 AM CREAT 1.1 04/02/2020 11:47 AM GFRESTIMATED >60.0 04/02/2020 11:47 AM NA 139 11/13/2023 06:56 AM NA 138 04/02/2020 11:47 AM POTASSIUM 4.5 11/13/2023 06:56 AM POTASSIUM <2.0 (LL) 11/10/2023 01:50 PM POTASSIUM 4.2 04/02/2020 11:47 AM CO2 24 11/13/2023 06:56 AM CO2 22 04/02/2020 11:47 AM Imaging studies: None new Problem list: Principal Problem: Brain tumor (HCC) Active Problems: Coronary artery disease without angina pectoris HTN, goal below 140/90 Dyslipidemia, goal LDL below 100 Venous insufficiency Class 3 severe obesity due to excess calories with serious comorbidity and body mass index (BMI) of40.0 to 44.9 in adult (HCC) ALEKSANDR (obstructive sleep apnea) Brain mass Palliative care encounter Goals of care, counseling/discussion Cancer related pain Nonintractable headache Postoperative pain Decreased appetite Therapeutic opioid-induced constipation (OIC) Word finding difficulty Agitation Resolved Problems: * No resolved hospital problems. 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 Q4 neurochecks SBP<160 Dex 2 week taper Gi ppx while on steroids Keppra until follow up Mechanical dvt ppx Ok for chemical dvt ppx Ok for bASA starting 11/13 Ptot, disp likely to rehab vs snf as pt lives home alone D/w Dr. Palma Associated attestation - Jcarlos Palma MD - 11/14/2023 9:38 AM EST I saw and evaluated the patient today. I have reviewed the trainee note and agree. This is a late entry. I saw the patient on rounds. Overall is doing well after surgery, incision healing well. No complaints. Continue routine postoperative care. All questions answered. Jcarlos Galan Neurosurgery This document was dictated using voice recognition software. Please excuse any errors. * Care Plan - Krysta Kenyon RN - 11/13/2023 12:28 AM EST Clinical Goal(s): Pt will remain free from falls (11/12/23 1900) Possible barriers to meeting goal(s)/advancing plan of care: pt has change in mental status, increase in pain Stability of the patient: Moderately stable - low risk of patient condition declining or worsening Summary regarding today's goal(s): Met: pt remained free from falls Recommendations: fall precautions, hourly rounding, pain mgmt * Care Plan - Carrie García RN - 11/12/2023 4:24 PM EST Clinical Goal(s): patient safety (11/12/23 0800) Possible barriers to meeting goal(s)/advancing plan of care: weakness Stability of the patient: Moderately stable - low risk of patient condition declining or worsening Summary regarding today's goal(s): Met: pt free from falls Recommendations: standard * Ancillary Progress Note - Nicole Nieves CCC-RELOCATION COMMISSIONER - 11/12/2023 3:13 PM EST PROGRESS NOTE - Speech-Language Pathology [address] [address] Name: Remy Lujan [place] [facility] [place] Date: 11/12/2023 Time: 3:13 PM Patient Status: Inpatient Insurance: Payor: [facility] / Plan: [facility] PLAN MA-NE / Product Type: *No Product type* / Patient Age: [age] year old Pt was seen this date for cognitive-communicative therapy Pt was received laying in bed asleep upon clinician entering the room He easily roused to auditory stimulation Pt c/o headache overnight, per his report r/t lack of pain medications (significant other confirmed) Communication Goals: 1) Pt will perform automatic/rote tasks w/greater than 90% accuracy less than 25% of cues from clinician Pt was able to verbalize the presidents when provided w/visual cues, sentence completion tasks and rote activities w/greater than 50% accuracy more than 50% cues. Pt was noted to have increased phonemic paraphasias this date 2) Pt will ID word via picture/object w/greater than 90% accuracy less than 25% of cues from clinician Goal not targeted this date 3) Pt will verbally ID written letter via repetition tasks w/greater than 90% accuracy less than 25% of cues from clinician Pt was unable to ID letters independent of rote tasks Pt noted to have slight set back this date w/communication, suspect this may be r/t pain he was experiencing Educated his significant other on goals and provided her w/tasks and activities to engage the pt. Reviewed allowing for fluent speech production despite presence of errors to prevent increased frustration and blocking, comprehension expressed Speech will continue to follow, communication goals per initial POC * Ancillary Progress Note - Germaine Cheney OSA - 11/12/2023 1:59 PM EST Member: Remy Lujan [facility] Exercise Rider decision: deny acute ip rehab with recommendation for SNF level of care at a [facility] participating provider. SNF auth [id number] . (Note-this is not a reference number for peer to peer). If the Physician in the hospital does not agree with this decision, he/she can call by 16:00 of the following business day and tell the associate he/she would like to speak with our Caser In concerning a denial of acute inpatient rehab admission. Thank you. [facility] Medical Management-Post Acute Team * Ancillary Progress Note - Salome Hampton RN - 11/12/2023 11:15 AM EST POST ACUTE CARE CARE MANAGEMENT [address] [address] Name: Remy Lujan [place] [facility] [facility] Date: 11/12/2023 Time: 1:01 PM Post-Acute Care Patient General Information Living Quarters: House (11/06/231535) Do you have serious difficulty walking or climbing stairs? (5 years old or older): No (11/05/23 2215) History of falling: No (11/12/23 0800) What was your living situation prior to admission/observation?: Independently;Alone (11/06/231535) Do you have any children, pets, or other dependents that you are currently caring for?: No (11/06/231535) AM-PAC Score With Stairs : 18 (11/11/23 0916) Post-Acute Care AM-PAC >= 17.99 Snf Facility (SNF) Guidelines For Medical Approval (must select both): Care must be provided by an RN/ADJUNCT INSTRUCTOR CHEMISTRY and cannot be managed at home;Care requires observation, monitoring and evaluation of effectiveness on a daily basis (11/12/23 1301) Medical Procedures: Does not meet criteria (11/12/23 1112) SNF guidelines for Rehab Approval (All selections required): Able to participate for at least 1 hour of therapy per day;One or more therapy modalities (PT/OT/ST) at least 5 times a week;Requires Training (select at least one);Services required only able to be provided in an inpatient setting;Requires intense care planning with realistic goals as identified by 1 of the following;Frequent re-assessment of established rehabilitative progress;Established rehabilitative progress;Frequent monitoring and or revision of treatment plan (11/12/23 1301) SNF Required Training: Gait training;Transfer Training;ADL training, with or without adaptive equipment;Speech therapy for new diagnosis of dysphagia;Speech therapy for cognitive training in conjunction with 1 additional modality (11/12/23 1301) Therapy modalities: Physical Therapy;Occupational Therapy;Speech Therapy (11/12/23 1301) Intense Care Plan Goals: Completion of home evaluation, assistance with home modifications;Assistance with application for community services;Coordination of multiple community services;Family medication and/or transfer training (11/12/23 1301) Recommend Alternative Level of Care: [facility] (11/12/23 1112) Approved for Snf Rehab: Approved for Snf Rehab (11/12/23 1301) Patient and friend requests referral to SNF. Has not been accepted as of now. * Ancillary Progress Note - Salome Hampton RN - 11/12/2023 11:09 AM EST CARE MANAGEMENT - ADULT TRANSITION [place] [facility] [address] Name: Remy Lujan [place] [facility] [facility] Date: 11/12/2023 Time: 11:09 AM Risk Stratification Risk Stratification Psycho Social / Medical Concerns Identified: Adjustment to illness/injury;Cognitive/Functional limitations (11/06/23 1536) Readmission Risk Score: 13.97 (11/12/23 0801) AM-PAC Score With Stairs : 18 (11/11/23 0916) Caregiver Information Patient Contacts Name Relation Home Work Mobile Candi Mulligan Significant Other [phone] Long,Aureliano Friend [phone] Ina Butler Adult Child [phone] Transition of Care Checklist Transition of Care Checklist (aka Readmission Risk Score) Discharge Disposition: Home w/Home Health (11/06/231537) Narrative: [facility]TE[facility] has been following Remy's hospital course. Discussed in IDT rounds. Remy is not currently medically stable for discharge. CM spoke to Candi, they requested referral to be placed at [facility], [place] notified. Kehinde signed off, waiting for biopsy results. He was denied for [facility]. Choices of [facility], [facility] and [place] [facility] referrals were placed. CM will continue to follow for additional discharge needs/plans. Anticipated Transportation at Discharge: wheelchair vs family Patient/Family Expectations: IRF Transition Planning Transition Planning Transition Plan/Considerations: Needs uncertain at this time - Continue monitoring for needs (11/06/231537) [facility] Quality Rating provided to patient: Yes (11/06/231537) Repisodic Choice provided to patient: Yes (11/06/231537) Insurance Considerations: N/A (11/06/231537) Additional Considerations: Care Management will continue to monitor and assist with discharge planning needs * Progress Notes - Post-Op Global - Tomás Dowell MD - 11/12/2023 8:24 AM EST NEUROLOGICAL SURGERY PROGRESS NOTE [facility] [place] [address] Name: Remy Lujan [place] [facility] [facility] Date: 11/12/2023 Time: 8:24 AM SUBJECTIVE: NAEO OBJECTIVE: Most recent vital signs: BP: 135 mmHg/72 mmHg (11/12/23648) Pulse: 77 (11/12/23648) Temp: 36.5 C (11/12/23648) Temp Summary: Temp Min: 36.3 C (97.3 F) Max: 36.8 C (98.2 F) SpO2: 93 % (11/12/23648) O2 flow rate: 0 L/MIN (11/12/23648) Supplemental O2 Delivery: Room Air, None (11/12/23648) Vital signs over last 24 hours: Systolic BP: Most Recent Systolic BP Av mmHg Min: 127 mmHg Max: 137 mmHg Temperature: Most Recent Temperature Av.5 C Min: 36.28 C Max: 36.78 C Pulse: Pulse Avg: Pulse Av.5 Min: 76 Max: 88 Respirations: Resp Av.3 Min: 16 Max: 20 SpO2: SpO2 Av.3 % Min: 93 % Max: 98 % SpO2: SpO2 Av.3 % Min: 93 % Max: 98 % FiO2%: O2 % Av % Min: 21 % Max: 21 % ICP: No data found.CPP (adult): No data found.Intake Input/Output: (last 24 hours) Intake/Output Summary (Last 24 hours) at 11/12/2023 0824 Last data filed at 11/12/2023 06 Gross per 24 hour Intake 200 ml Output 980 ml Net -780 ml Incision: clean, dry, intact Neurologic Examination GCS 15 Awake, alert, oriented to person, place, time Mild mixed aphasia PERRL EOMI No facial droop No pronator drift MASTERS to command R superior quadrantanopsia RUE 5/5 LUE 5/5 RLE 5/5 LLE 5/5 Sensation grossly intact LABS: Blood count: Lab Results Component Value Date/Time WBC 12.96 (H) 11/12/2023 07:07 AM WBC 6.75 04/02/2020 11:47 AM HGB 13.0 (L) 11/12/2023 07:07 AM HGB 15.0 04/02/2020 11:47 AM HCT 39.1 (L) 11/12/2023 07:07 AM HCT 45.6 04/02/2020 11:47 AM PLT 255 11/12/2023 07:07 AM PLT 248 04/02/2020 11:47 AM Coagulation studies: Lab Results Component Value Date/Time INR 1.2 11/12/2023 07:07 AM INR 1.19 (H) 04/02/2020 11:47 AM Chemistry: Lab Results Component Value Date/Time BUN 15 11/11/2023 06:38 AM BUN 17 04/02/2020 11:47 AM CREAT 0.8 11/11/2023 06:38 AM CREAT 1.1 04/02/2020 11:47 AM GFRESTIMATED >60.0 04/02/2020 11:47 AM NA 135 11/11/2023 06:38 AM NA 138 04/02/2020 11:47 AM POTASSIUM 4.3 11/11/2023 06:38 AM POTASSIUM <2.0 (LL) 11/10/2023 01:50 PM POTASSIUM 4.2 04/02/2020 11:47 AM CO2 20 (L) 11/11/2023 06:38 AM CO2 22 04/02/2020 11:47 AM Imaging studies: MRI brain postop completed showing small area of residual Problem list: Principal Problem: Brain tumor (HCC) Active Problems: Coronary artery disease without angina pectoris HTN, goal below 140/90 Dyslipidemia, goal LDL below 100 Venous insufficiency Class 3 severe obesity due to excess calories with serious comorbidity and body mass index (BMI) of40.0 to 44.9 in adult (HCC) ALEKSANDR (obstructive sleep apnea) Brain mass Resolved Problems: * No resolved hospital problems. 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 Q4 neurochecks SBP<160 Dex 2 week taper Gi ppx while on steroids Keppra until follow up Mechanical dvt ppx Ok for chemical dvt ppx Ok for bASA starting 11/13 Ptot, disp likely to rehab vs snf as pt lives home alone D/w Dr. Ornelas Associated attestation - Matteo Ornelas III, MD - 11/15/2023 8:23 AM EST I did not see the patient, but I have reviewed the trainee documentation and was not readily available on date of service. I personally discussed the care and treatment plan with the house staff. * Care Plan - Padma Nieves RN - 11/12/2023 7:28 AM EST Clinical Goal(s): pt will be fall free (11/11/23 0800) Possible barriers to meeting goal(s)/advancing plan of care: ams Stability of the patient: Moderately stable - low risk of patient condition declining or worsening Summary regarding today's goal(s): Met: safety maintained Recommendations: bed alarms bed rails * Care Plan - Jose Corbett RN - 11/11/2023 6:14 PM EST Clinical Goal(s): pt will be fall free (11/11/23 0800) Possible barriers to meeting goal(s)/advancing plan of care: post op Stability of the patient: Moderately stable - low risk of patient condition declining or worsening Summary regarding today's goal(s): Met: no falls noted Recommendations: frequent nurse rounds * Ancillary Progress Note - Salome Hampton RN - 11/11/2023 11:15 AM EST CARE MANAGEMENT - ADULT TRANSITION [place] [facility] [address] Name: Remy Lujan [place] [facility] Date: 11/11/2023 Time: 11:16 AM Risk Stratification Risk Stratification Psycho Social / Medical Concerns Identified: Adjustment to illness/injury;Cognitive/Functional limitations (11/06/23 1536) Readmission Risk Score: 16.36 (11/11/23 0801) AM-PAC Score With Stairs : 24 (11/10/23 0840) Caregiver Information Patient Contacts Name Relation Home Work Mobile Candi Mulligan Significant Other [phone] Aureliano Ruiz Friend [phone] Ina Butler Adult Child [phone] Transition of Care Checklist Transition of Care Checklist (aka Readmission Risk Score) Discharge Disposition: Home w/Home Health (11/06/23 1538) Narrative: CM has been following Remy's hospital course. Discussed in IDT rounds. Remy is not currently medically stable for discharge. Post OP day 1. Patient is having difficulties word finding. Needs MRI within 24hr of surgery. PT/Placido eval him to day for recommendations. FriendCandi [place] Patient understands that he may need rehab for a safe discharge plan. Oncology follow up/consult for possible glioblastoma CM will continue to follow for additional discharge needs/plans. Anticipated Transportation at Discharge: tbd Patient/Family Expectations: tbd Transition Planning Transition Planning Transition Plan/Considerations: Needs uncertain at this time - Continue monitoring for needs (11/06/231537) [facility] Quality Rating provided to patient: Yes (11/06/231537) Repisodic Choice provided to patient: Yes (11/06/231537) Insurance Considerations: N/A (11/06/231537) Additional Considerations: Care Management will continue to monitor and assist with discharge planning needs * Progress Notes - Post-Op Global - Tomás Dowell MD - 11/11/2023 7:22 AM EST NEUROLOGICAL SURGERY PROGRESS NOTE [facility] [place] [address] Name: Remy Lujan [place] [facility] Date: 11/11/2023 Time: 7:22 AM SUBJECTIVE: Postop MRI pending OBJECTIVE: Most recent vital signs: BP: 137 mmHg/71 mmHg (11/11/23621) Pulse: 82 (11/11/23621) Temp: 36.11 C (11/11/23621) Temp Summary: Temp Min: 36.1 C (97 F) Max: 37.3 C (99.1 F) SpO2: 95 % (11/11/23621) O2 flow rate: 0 L/MIN (11/11/23621) Supplemental O2 Delivery: Room Air, None (11/11/23621) Vital signs over last 24 hours: Systolic BP: Most Recent Systolic BP Av mmHg Min: 111 mmHg Max: 160 mmHg Temperature: Most Recent Temperature Av.7 C Min: 36.11 C Max: 37.28 C Pulse: Pulse Avg: Pulse Av.7 Min: 71 Max: 94 Respirations: Resp Av.2 Min: 8 Max: 18 SpO2: SpO2 Av.1 % Min: 94 % Max: 99 % SpO2: SpO2 Av.1 % Min: 94 % Max: 99 % FiO2%: No data recorded ICP: No data found.CPP (adult): No data found.Intake Input/Output: (last 24 hours) Intake/Output Summary (Last 24 hours) at 11/11/2023 0722 Last data filed at 11/11/2023 0633 Gross per 24 hour Intake 3022.5 ml Output 1550 ml Net 1472.5 ml Incision: clean, dry, intact Neurologic Examination GCS 15 Awake, alert, oriented to person, place, time Mild mixed aphasia PERRL EOMI No facial droop No pronator drift MASTERS to command Questionable R superior quadrantanopsia, intermittently unable to finger count in R upper quadrant RUE 5/5 LUE 5/5 RLE 5/5 LLE 5/5 Sensation grossly intact LABS: Blood count: Lab Results Component Value Date/Time WBC 6.45 11/10/2023 06:56 AM WBC 6.75 04/02/2020 11:47 AM HGB 14.1 11/10/2023 06:56 AM HGB 15.0 04/02/2020 11:47 AM HCT 42.6 11/10/2023 06:56 AM HCT 45.6 04/02/2020 11:47 AM PLT 221 11/10/2023 06:56 AM PLT 248 04/02/2020 11:47 AM Coagulation studies: Lab Results Component Value Date/Time INR 1.2 11/10/2023 06:56 AM INR 1.19 (H) 04/02/2020 11:47 AM Chemistry: Lab Results Component Value Date/Time BUN 20 11/10/2023 06:56 AM BUN 17 04/02/2020 11:47 AM CREAT 1.2 11/10/2023 06:56 AM CREAT 1.1 04/02/2020 11:47 AM GFRESTIMATED >60.0 04/02/2020 11:47 AM NA 137 11/10/2023 06:56 AM NA 138 04/02/2020 11:47 AM POTASSIUM <2.0 (LL) 11/10/2023 01:50 PM POTASSIUM 4.2 04/02/2020 11:47 AM CO2 25 11/10/2023 06:56 AM CO2 22 04/02/2020 11:47 AM Imaging studies: MRI brain postop pending Problem list: Principal Problem: Brain tumor (HCC) Active Problems: Coronary artery disease without angina pectoris HTN, goal below 140/90 Dyslipidemia, goal LDL below 100 Venous insufficiency Class 3 severe obesity due to excess calories with serious comorbidity and body mass index (BMI) of40.0 to 44.9 in adult (HCC) ALEKSANDR (obstructive sleep apnea) Brain mass Resolved Problems: * No resolved hospital problems. 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 Q4 neurochecks SBP<160 MRI Brain w/wo postop within 24h of surgery Ddex 2 week ttaper Gi ppx while on steroids Keppra until follow up Mechanical dvt ppx Ok for chemical dvt ppx on pod2 Ptot, disp likely to rehab vs snf as pt lives home alone D/w dr ornelas Associated attestation - Matteo Ornelas III, MD - 11/11/2023 8:34 AM EST I saw and evaluated the patient today. I have reviewed the trainee note and agree. * Care Plan - Padma Nieves RN - 11/11/2023 4:06 AM EST Clinical Goal(s): pt will remain free from injury (11/10/23 1900) Possible barriers to meeting goal(s)/advancing plan of care: impaired cognitive function Stability of the patient: Moderately stable - low risk of patient condition declining or worsening Summary regarding today's goal(s): Met: safety maintained Recommendations: bed alarms ,bed rails ,non skid socks * Respiratory Progress Note - Abby Peñaloza CRT - 11/10/2023 4:37 PM EST PATIENT DRIVEN PROTOCOL - Respiratory Care Services [facility] [address] Name: Remy Lujan [place] [facility] Date: 11/10/2023 Time: 4:37 PM Patient Driven Protocol Summary: Initial evaluation performed. This Treatment Plan and medications will be reviewed by the Primary Care Team for any contraindications. Respiratory Care Treatment Plan Pulmonary Volume Expansion Therapy: Incentive Spirometry PRN to reduce work of breathing and improve pulmonary gas exchange. . The patient will be re-evaluated: No re-evaluation needed. Indications for treatment met. The Triage Level is: (Assessment Score = 0 - 5) Level 5. Triage Level Definitions: Level 1 Severe Respiratory/Airway Compromise Level 2 Moderate Respiratory/Airway Compromise or high risk for pulmonary complications Level 3 Mild Respiratory/Airway Compromise or moderate risk for pulmonary complications Level 4 Episodic Respiratory/Airway Compromise or low risk for pulmonary complications Level 5 No Respiratory/Airway Compromise Triage 1 Triage 2 Triage 3 Triage 4 Triage 5 greater than 20 16 - 20 11 - 15 6 - 10 0 - 5 Medical Record Assessment Clinical Findings Pulmonary Status: 0 - No Smoking or quit greater than 10 years ago Surgical Status: 1 - General Surgery Chest X-Ray: 0 - Not Performed or performed greater than 3 days ago Assessment Score: 1 Patient Assessment Clinical Findings Respiratory Pattern: 0 - RR 12 - 20; Patient only gets breathless with strenuous exercise. Breath Sounds: 2 - Diminished bilaterally Cough Effectiveness: 0 - Strong non-productive Sputum Production: 0 - No sputum production Level of Activity: 1 - Ambulatory with assist O2 needed to keep SpO2 greater than or equal to 92%: 0 - Room Air Assessment Score: 3 Total Assessment Score: 4 Breath Sounds: Inspiratory and expiratory clear and diminished bilaterally.. Cough and Sputum: No cough was present.. CXR: none performed . Vital Signs: Resp: 14 (11/10/23 1635) Pulse: 81 (11/10/23 1600) Temp: 36.6 C (97.9 F) (11/10/23 1600) BP: 126/57 (11/10/23 1600) SpO2: 98 % (11/10/23 1635) PFT: Minimal Predicted IC: 1.25 L. Inspiratory capacity: 1.5L. Primary Service: Med G. Admitting Diagnosis: Brain tumor (HCC) [D49.6] Brain lesion [G93.9] Pulmonary Diagnosis: CAD and ALEKSANDR. Prescriptions/Home Medications/Durable Medical Equipment: Wears 9.5 CPAP at night. * Progress Notes - Non-Billable - Matteo Ornelas III, MD - 11/10/2023 3:26 PM EST NSGY Attending Immediate PO check S: no issues in pacu since arrival O: BP 126/66 | Pulse 94 | Temp 36.8 C (98.2 F) (Tympanic) | Resp 17 | Ht 1.88 m (6' 2") | Wt (!) 147.2 kg (324 lb 8.3 oz) | SpO2 95% | BMI 41.67 kg/m | BSA 2.77 m Awakened and alert No cranial neuropathy x previous diminshed hearing Incision dressed FCX4, understands speech Minimal speech MAEW A/P: POD0 s/p L temp crani for what will likely be high grade glioma Usual PO care I updated Candi, the patient's significant other on how the operation went and answered any questions she had. Matteo Ornelas III, MD, PHD 11/10/2023 3:27 PM * Care Plan - French Odom RN - 11/10/2023 3:07 AM EST Clinical Goal(s): Pt will be safe during this shift. (11/09/232026) Possible barriers to meeting goal(s)/advancing plan of care: diagnosis Stability of the patient: Moderately stable - low risk of patient condition declining or worsening Summary regarding today's goal(s): Met: Pt remained safe. Recommendations: Continue to implement safety precautions. * Care Plan - Krysta Kenyon RN - 11/08/2023 8:12 PM EST Clinical Goal(s): Pt will remain free from falls (11/08/23 1900) Possible barriers to meeting goal(s)/advancing plan of care: pt has change in mental status, increase in weakness Stability of the patient: Moderately stable - low risk of patient condition declining or worsening Summary regarding today's goal(s): Met: pt remained free from falls Recommendations: fall prec, hourly rounding, pain mgmt * Care Plan - Salome Wolfe RN - 11/08/2023 5:56 AM EST Clinical Goal(s): Pt will remain free from falls (11/07/23 2300) Possible barriers to meeting goal(s)/advancing plan of care: impaired mobility and hospital environment Stability of the patient: Moderately stable - low risk of patient condition declining or worsening Summary regarding today's goal(s): Met: Pt did not fall Recommendations: Continue use of fall precautions and purposeful hourly rounding * Care Pamela - Adela Winslow RN - 11/07/2023 5:56 PM EST Clinical Goal(s): Patient will remain free from falls (11/07/23 0700) Possible barriers to meeting goal(s)/advancing plan of care: weakness Stability of the patient: Moderately stable - low risk of patient condition declining or worsening Summary regarding today's goal(s): Met: Patient remains free from falls Recommendations: Continue fall precautions and purposeful hourly rounding * Care Plan - Kecia Edwards RN - 11/07/2023 4:27 AM EST Clinical Goal(s): Patient will remain free from falls during this shift. (11/06/23 2300) Possible barriers to meeting goal(s)/advancing plan of care: disease process Stability of the patient: Moderately stable - low risk of patient condition declining or worsening Summary regarding today's goal(s): Met: Pt remained free from falls Recommendations: continue with purposeful hourly rounding * Stephanie Santiago - Adela Winslow RN - 11/06/2023 6:18 PM EST Clinical Goal(s): Patient will remain free from falls (11/06/23 0700) Possible barriers to meeting goal(s)/advancing plan of care: weakness Stability of the patient: Moderately stable - low risk of patient condition declining or worsening Summary regarding today's goal(s): Met: Patient remains free from falls Recommendations: Continue fall precautions and purposeful hourly rounding * Ancillary Progress Note - Tomás Fagan RN - 11/06/2023 3:39 PM EST CARE MANAGEMENT - ADULT INITIAL SCREENING [address] [address] Name: Remy Lujan [place] [facility] [facility]: 11/06/2023 Time: 3:39 PM Discussed patient with the interdisciplinary care team. This Merchandising Consultant performed a chart review and met with Remy and sirena Christopher at bedside to complete admission screen and assessed needs fortransition planning. The home health care coordinator role and services were explained and emotional support was provided. Chief Complaint: No chief complaint on file. Prior Living Arrangements What was your living situation prior to admission/observation?: Independently;Alone (11/06/231535) Living Quarters: House (11/06/231535) Do you have serious difficulty walking or climbing stairs? (5 years old or older): No (11/05/23 2215) History of falling: No (11/06/23 0800) Prior Level of Functioning Describe the patient's ability prior to admission/observation to perform ADLs: Performs independently (11/06/231535) Describe the patient's mobility status prior to admission: Patient ambulates independently (11/06/231535) Patient uses assistive device: No (11/06/231535) Caregiver Information Patient Contacts Name Relation Home Work Mobile Candi Mulligan Other - (no specific identity) [phone] Aureliano Long Friend Ina Butler Adult Child [phone] Risk Stratification/Psychosocial/Care Gaps Risk Stratification Psycho Social / Medical Concerns Identified: Adjustment to illness/injury;Cognitive/Functional limitations (11/06/23 153) Readmission Risk Score: 7.98 (11/06/23 1201) AM-PAC Score With Stairs : 23 (11/06/23 0800) Prior to Admission Services 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 Neurosurgery consulted for new brain tumor. Per friend Candi, pt lives alone and independent. Pt is hard of hearing. Candi states with new condition, he is unable to read. Concerned with self care at home post discharge. CM informed the PT, OT, and likely Speech with be consulted post op for recommendations on needs. CM presented Repisodic List of HH agencies to consider. CM to follow and assist with discharge needs once clearer post op. For further screening information, please refer to the Care Management flow document. * Care Plan - Kecia Edwards RN - 11/06/2023 3:50 AM EST Clinical Goal(s): Patient will remain free from falls during this shift. (11/05/23 2300) Possible barriers to meeting goal(s)/advancing plan of care: disease process Stability of the patient: Moderately stable - low risk of patient condition declining or worsening Summary regarding today's goal(s): Met: Pt remained free from falls Recommendations: continue with purposeful hourly rounding documented in this encounter Plan of Treatment Upcoming Encounters Date Type Department Care Team (Late st Contact Info) Description 11/22/2023 10:45 AM EST Office Visit Neurosurgery, [place] [address] [place] [address] Clinic, Brain Tumor Multidisciplinary [address] [place] [address] 11/22/2023 2:00 PM EST Office Visit [facility], [place] [address] [place] [facility] [place] [phone] mE Haq MD [address], [place] [id number] 03/20/2024 10:50 AM EDT Office Visit [facility] [address] [place] [facility] [place] [address] Nicole Gramajo [address] [place] [address] 09/29/2024 1:00 PM EST Office Visit Neurology [facility] [place] [address] [place] [address] Mariama Hinojosa, DO [address] [place] [address] Pending Results Name Type Priority Associated Diagnoses Date /Time MYGENVAR CENTRAL NERVOUS SYSTEM NEOPLASM GENE PANEL, NEXT GENERATION SEQUENCING Lab Routine Brain tumor (HCC) 11/10/2023 1:21 PM EST MGMT PROMOTER METHYLATION ANALYSIS Lab Routine Brain tumor (HCC) 11/10/2023 1:03 PM EST Scheduled Orders Name Type Priority Associated Diagnoses Order Schedule MR GUIDED LOCALIZATION BRAIN Medical Imaging Routine One Time for 1 Occurrences starting 11/06/2023 until 11/06/2023 MYGENVAR CENTRAL NERVOUS SYSTEM NEOPLASM GENE PANEL, NEXT GENERATION SEQUENCING Lab Routine Brain tumor (HCC) One Time for 1 Occurrences starting 11/11/2023 until 11/11/2023, 1 completed MGMT PROMOTER METHYLATION ANALYSIS Lab Routine Brain tumor (HCC) One Time for 1 Occurrences starting 11/12/2023 until 11/12/2023 Scheduled Procedures Name Priority Associated Diagnoses Date/Ti me COLONOSCOPY FLEXIBLE PROXIMA L DIAGNOSTIC Recall Encounter for screening colonoscopy Scheduled Referrals Name Type Priority Associated Diagnoses Orde r Schedule HOME HEALTH REFERRAL OP Referral Within 3 days (urgent) Brain mass Ordered: 11/18/2023 Health Maintenance Due Date Last Done Comments [...] Procedure Name Priority Date/Time Associated Diagnosis Comments BASIC METABOLIC PANEL Routine 11/18/2023 6:04 AM EST PT INR Routine 11/18/2023 6:04 AM EST PHOSPHORUS Routine 11/18/2023 6:04 AM EST CBC Routine 11/18/2023 6:04 AM EST MAGNESIUM Routine 11/18/2023 6:04 AM EST BASIC METABOLIC PANEL Routine 11/17/2023 6:27 AM EST PT INR Routine 11/17/2023 6:27 AM EST PHOSPHORUS Routine 11/17/2023 6:27 AM EST CBC Routine 11/17/2023 6:27 AM EST MAGNESIUM Routine 11/17/2023 6:27 AM EST BASIC METABOLIC PANEL Routine 11/16/2023 8:04 AM EST PT INR Routine 11/16/2023 8:04 AM EST PHOSPHORUS Routine 11/16/2023 8:04 AM EST CBC Routine 11/16/2023 8:04 AM EST MAGNESIUM Routine 11/16/2023 8:04 AM EST BASIC METABOLIC PANEL Routine 11/15/2023 7:20 AM EST PT INR Routine 11/15/2023 7:20 AM EST PHOSPHORUS Routine 11/15/2023 7:20 AM EST MAGNESIUM Routine 11/15/2023 7:20 AM EST CBC Routine 11/15/2023 7:19 AM EST BASIC METABOLIC PANEL Routine 11/14/2023 7:15 AM EST PT INR Routine 11/14/2023 7:15 AM EST PHOSPHORUS Routine 11/14/2023 7:15 AM EST CBC Routine 11/14/2023 7:15 AM EST MAGNESIUM Routine 11/14/2023 7:15 AM EST PT INR Routine 11/13/2023 6:57 AM EST BASIC METABOLIC PANEL Routine 11/13/2023 6:56 AM EST PHOSPHORUS Routine 11/13/2023 6:56 AM EST CBC Routine 11/13/2023 6:56 AM EST MAGNESIUM Routine 11/13/2023 6:56 AM EST BASIC METABOLIC PANEL Routine 11/12/2023 7:07 AM EST PT INR Routine 11/12/2023 7:07 AM EST PHOSPHORUS Routine 11/12/2023 7:07 AM EST CBC Routine 11/12/2023 7:07 AM EST MAGNESIUM Routine 11/12/2023 7:07 AM EST MRI NEURO 3-D RECONSTRUCTION STAT 11/11/2023 5:45 PM EST MRI BRAIN W WO CONTRAST Routine 11/11/2023 5:16 PM EST BASIC METABOLIC PANEL Routine 11/11/2023 6:38 AM EST PT INR Routine 11/11/2023 6:38 AM EST PHOSPHORUS Routine 11/11/2023 6:38 AM EST CBC Routine 11/11/2023 6:38 AM EST MAGNESIUM Routine 11/11/2023 6:38 AM EST POTASSIUM, WHOLE BLOOD Routine 4 8:27 PM EST POTASSIUM, WHOLE BLOOD Routine 4 3:43 PM EST BLOOD GAS WITH CHEMISTRY, POINT OF CARE MART 11/10/2023 1:50 PM EST FISH EGFR Routine 11/10/2023 1:21 PM EST Brain tumor (HCC) SURGICAL PATHOLOGY STAT 11/10/2023 1: 03 PM EST Brain tumor (HCC) MICROSURGERY ADD-ON 11/10/2023 1 0:53 AM EST Brain tumor (HCC) Stereotactic Cranial Intradural Navigation 11/10/2023 10:53 AM EST Brain tumor (HCC) REMOVE SUPRATENTORIAL BRAIN TUMOR 11/10/2023 10:53 AM EST Brain tumor (HCC) BASIC METABOLIC PANEL Routine 11/10/2023 6:56 AM EST ABO/RH STAT 11/10/2023 6:56 AM EST TYPE AND SCREEN Routine 11/10/2023 6:56 AM EST PT INR Routine 11/10/2023 6:56 AM EST PHOSPHORUS Routine 11/10/2023 6:56 AM EST CBC Routine 11/10/2023 6:56 AM EST MAGNESIUM Routine 11/10/2023 6:56 AM EST BASIC METABOLIC PANEL Routine 11/09/2023 6:42 AM EST PHOSPHORUS Routine 11/09/2023 6:42 AM EST MAGNESIUM Routine 11/09/2023 6:42 AM EST BASIC METABOLIC PANEL Routine 11/08/2023 7:24 AM EST PHOSPHORUS Routine 11/08/2023 7:24 AM EST MAGNESIUM Routine 11/08/2023 7:24 AM EST ECHO, COMPLETE (2D), TRANS-THORACIC Routine 11/07/2023 9:14 AM EST Preop cardiovascular exam BASIC METABOLIC PANEL Routine 11/07/2023 7:19 AM EST PHOSPHORUS Routine 11/07/2023 7:19 AM EST CBC Routine 11/07/2023 7:19 AM EST MAGNESIUM Routine 11/07/2023 7:19 AM EST MRI NEURO 3-D RECONSTRUCTION Routine 11/06/2023 9:41 PM EST MRI BRAIN WITHOUT CONTRAST Routine 11/06/2023 9:[address] CHEST/ABDOMEN/PELVIS WITH IV CONTRAST WITHOUT ORAL CONTRAST Routine 11/06/2023 2:12 AM EST MRSA SCREEN, PCR Routine 11/06/2023 1:36 AM EST CRP (INFLAMMATORY MARKER) Add-on 11/06/2023 1:08 AM EST COMPREHENSIVE METABOLIC PANEL Routine 11/06/2023 1:08 AM EST PHOSPHORUS Routine 11/06/2023 1:08 AM EST ERYTHROCYTE SEDIMENTATION RATE (ESR) Add-on 11/06/2023 1:08 AM EST CBC Routine 11/06/2023 1:08 AM EST MAGNESIUM Routine 11/06/2023 1:08 AM EST documented in this encounter Results * PT INR (11/18/2023 6:04 AM EST) Prothrombin Time 14.8 11.6 - 15.2 seconds 11/18/2023 6:46 AM EST [facility] [place] 1.2 0.8 - 1.2 11/18/2023 6:46 AM EST [facility] Blood Venous blood specimen / Unknown Venipuncture / Unknown 11/18/2023 6:04 AM EST 11/18/2023 6:18 AM EST Narrative [facility] - 11/18/2023 6:46 AM EST Warfarin Therapy INR: 2.0-3.0 conventional anticoagulation INR: 2.5-3.5 high intensity anticoagulation Adonay Conn PA-C LAB BLOOD ORDER [facility] [address] [place] [address] * (ABNORMAL) CBC (11/18/2023 6:04 AM EST) WBC 12.61(H) 4.00 - 10.80 K/uL 11/18/2023 6:29 AM EST [facility] RBC 4.42 4.50 - 5.25 M/uL 11/18/2023 6:29 AM EST [facility] HGB 13.9(L) 14.0 - 16.8 g/dL 11/18/2023 6:29 AM EST [facility] HCT 41.2 40.0 - 48.4 % 11/18/2023 6:29 AM EST [facility] MCV 93.2 82.0 - 99.5 fL 11/18/2023 6:29 AM EST [facility] MCH 31.4 27.0 - 34.0 pg 11/18/2023 6:29 AM EST [facility] MCHC 33.7 32.0 - 36.0 g/dL 11/18/2023 6:29 AM EST [facility] RDW 12.7 11.5 - 15.5 % 11/18/2023 6:29 AM EST [facility] PLT 283 140 - 400 K/uL 11/18/2023 6:29 AM EST [facility] MPV 9.4 6.6 - 11.1 fL 11/18/2023 6:29 AM EST [facility] nRBCs 0 <=0 /100 WBCs 11/18/2023 6:29 AM EST [facility] Blood Venous blood specimen / Unknown Venipuncture / Unknown 11/18/2023 6:04 AM EST 11/18/2023 6:18 AM EST Adonay Conn PA-C LAB BLOOD ORDER [facility] [address] [place] [address] * PHOSPHORUS (11/18/2023 6:04 AM EST) Phosphorus 4.2 2.5 - 4.8 mg/dL 11/18/2023 6:48 AM EST [facility] Blood Venous blood specimen / Unknown Venipuncture / Unknown 11/18/2023 6:04 AM EST 11/18/2023 6:18 AM EST Adonay Conn PA-C LAB BLOOD ORDER [facility] Performing Organization Address City/[facility]/ZIP Co de Phone Number LABORATORY GM [address] [place] [address] * MAGNESIUM (11/18/2023 6:04 AM EST) Magnesium 2.2 1.5 - 2.6 mg/dL 11/18/2023 6:48 AM EST LABORATORY GM Blood Venous blood specimen / Unknown Venipuncture / Unknown 11/18/2023 6:04 AM EST 11/18/2023 6:18 AM EST Adonay Conn PA-C LAB BLOOD ORDER JEREMIAS Performing Organization Address [facility]/ZIP Co de Phone Number LABORATORY [facility] [address] [place] [address] * (ABNORMAL) BASIC METABOLIC PANEL (11/18/2023 6:04 AM EST) BUN 25(H) 6 - 20 mg/dL 11/18/2023 6:48 AM EST LABORATORY [facility] Creatinine 1.1 0.6 - 1.2 mg/dL 11/18/2023 6:48 AM EST LABORATORY G[facility] Estimated Glomerular Filtration Rate 76 >=60 mL/min 11/18/2023 6:48 AM EST LABORATORY GMC Comment:eGFR is calculated b ased on the CKD-EPI 2020 equation Sodium 135 135 - 146 mmol/L 11/18/2023 6:48 AM EST LABORATORY [facility] Potassium 4.6 3.5 - 5.1 mmol/L 11/18/2023 6:48 AM EST LABORATORY GMC Chloride 99 98 - 107 mmol/L 11/18/2023 6:48 AM EST LABORATORY G[facility] CO2 26 22 - 32 mmol/L 11/18/2023 6:48 AM EST LABORATORY GMC Anion Gap 10 7 - 15 mmol/L 11/18/2023 6:48 AM EST LABORATORY G[facility] Glucose 111 70 - 120 mg/dL 11/18/2023 6:48 AM EST LABORATORY GMC Calcium 9.1 8.4 - 10.2 mg/dL 11/18/2023 6:48 AM EST LABORATORY GM Blood Venous blood specimen / Unknown Venipuncture / Unknown 11/18/2023 6:04 AM EST 11/18/2023 6:18 AM EST Adonay KIDD-C LAB BLOOD ORDER JEREMIAS Performing Organization Address [facility]/ZIP Co de Phone Number LABORATORY [facility] [address] [place] [address] * PT INR (11/17/2023 6:27 AM EST) Prothrombin Time 14.5 11.6 - 15.2 seconds 11/17/2023 7:15 AM EST LABORATORY [facility] INR 1.1 0.8 - 1.2 11/17/2023 7:15 AM EST LAB[facility]ATORY [facility] Blood Venous blood specimen / Unknown Venipuncture / Unknown 11/17/2023 6:27 AM EST 11/17/2023 6:51 AM EST Narrative LABORATORY [facility] - 11/17/2023 7:15 AM EST Warfarin Therapy INR: 2.0-3.0 conventional anticoagulation INR: 2.5-3.5 high intensity anticoagulation Adonay KIDD-C LAB BLOOD ORDER JEREMIAS Performing Organization Address [facility] Co de Phone Number LABORATORY [facility] [address] [place] [address] * (ABNORMAL) CBC (11/17/2023 6:27 AM EST) WBC 15.15(H) 4.00 - 10.80 K/uL 11/17/2023 7:04 AM EST LABORATORY [facility] RBC 4.47 4.50 - 5.25 M/uL 11/17/2023 7:04 AM EST LABORATORY [facility] HGB 13.8(L) 14.0 - 16.8 g/dL 11/17/2023 7:04 AM EST LABORATORY [facility] HCT 42.1 40.0 - 48.4 % 11/17/2023 7:04 AM EST LABORATORY G[facility] MCV 94.2 82.0 - 99.5 fL 11/17/2023 7:04 AM EST LABORATORY GMC MCH 30.9 27.0 - 34.0 pg 11/17/2023 7:04 AM EST LABORATORY [facility] MCHC 32.8 32.0 - 36.0 g/dL 11/17/2023 7:04 AM EST LABORATORY G[facility] RDW 12.6 11.5 - 15.5 % 11/17/2023 7:04 AM EST LABORATORY G[facility] PLT 312 140 - 400 K/uL 11/17/2023 7:04 AM EST LABORATORY G[facility] MPV 9.6 6.6 - 11.1 fL 11/17/2023 7:04 AM EST LABORATORY [facility] nRBCs 0 <=0 /100 WBCs 11/17/2023 7:04 AM EST LABORATORY [facility] Blood Venous blood specimen / Unknown Venipuncture / Unknown 11/17/2023 6:27 AM EST 11/17/2023 6:51 AM EST Adonay KIDD-C LAB BLOOD ORDER JEREMIAS LABORATORY [facility] [address] [place] [address] * PHOSPHORUS (11/17/2023 6:27 AM EST) Phosphorus 4.2 2.5 - 4.8 mg/dL 11/17/2023 7:21 AM EST LABORATORY [facility] Blood Venous blood specimen / Unknown Venipuncture / Unknown 11/17/2023 6:27 AM EST 11/17/2023 6:51 AM EST [facility] LAB BLOOD ORDER JEREMIAS LABORATORY [facility] [address] [place] [address] * MAGNESIUM (11/17/2023 6:27 AM EST) Magnesium 2.3 1.5 - 2.6 mg/dL 11/17/2023 7:21 AM EST LABORATORY [facility] Blood Venous blood specimen / Unknown Venipuncture / Unknown 11/17/2023 6:27 AM EST 11/17/2023 6:51 AM EST Adonay Conn PA-C LAB BLOOD ORDER JEREMIAS Performing Organization Address City/[facility]/ZIP Co de Phone Number LABORATORY [facility] [address] [place] [address] * (ABNORMAL) BASIC METABOLIC PANEL (11/17/2023 6:27 AM EST) BUN 25(H) 6 - 20 mg/dL 11/17/2023 7:21 AM EST LABORATORY [facility] Creatinine 1.2 0.6 - 1.2 mg/dL 11/17/2023 7:21 AM EST LABORATORY [facility] Estimated Glomerular Filtration Rate 69 >=60 mL/min 11/17/2023 7:21 AM EST LABORATORY [facility] Comment:eGFR is calculated b ased on the CKD-EPI 2020 equation Sodium 138 135 - 146 mmol/L 11/17/2023 7:21 AM EST LABORATORY [facility] Potassium 4.8 3.5 - 5.1 mmol/L 11/17/2023 7:21 AM EST LABORATORY [facility] Chloride 101 98 - 107 mmol/L 11/17/2023 7:21 AM EST LABORATORY [facility] CO2 27 22 - 32 mmol/L 11/17/2023 7:21 AM EST LABORATORY [facility] Anion Gap 10 7 - 15 mmol/L 11/17/2023 7:21 AM EST LABORATORY G[facility] Glucose 110 70 - 120 mg/dL 11/17/2023 7:21 AM EST LABORATORY [facility] Calcium 9.3 8.4 - 10.2 mg/dL 11/17/2023 7:21 AM EST LABORATORY C Blood Venous blood specimen / Unknown Venipuncture / Unknown 11/17/2023 6:27 AM EST 11/17/2023 6:51 AM EST Adonay Conn PA-C LAB BLOOD ORDER JEREMIAS Performing Organization Address [facility]/ZIP Co de Phone Number LABORATORY [facility] [address] [place] [address] * PT INR (11/16/2023 8:04 AM EST) Prothrombin Time 14.9 11.6 - 15.2 seconds 11/16/2023 9:26 AM EST LABORATORY [facility] INR 1.2 0.8 - 1.2 11/16/2023 9:26 AM EST LAB[facility]ATORY [facility] Blood Venous blood specimen / Unknown Venipuncture / Unknown 11/16/2023 8:04 AM EST 11/16/2023 8:59 AM EST [facility] LABORATORY [facility] - 11/16/2023 9:26 AM EST Warfarin Therapy INR: 2.0-3.0 conventional anticoagulation INR: 2.5-3.5 high intensity anticoagulation Adonay Conn PA-C LAB BLOOD ORDER JEREMIAS LABORATORY [facility] [address] [place] [address] * (ABNORMAL) CBC (11/16/2023 8:04 AM EST) Pathologist [facility] WBC 12.05(H) 4.00 - 10.80 K/uL 11/16/2023 9:12 AM EST LABORATORY [facility] RBC 4.38 4.50 - 5.25 M/uL 11/16/2023 9:12 AM EST LABORATORY G[facility] HGB 13.6(L) 14.0 - 16.8 g/dL 11/16/2023 9:12 AM EST LABORATORY [facility] HCT 40.8 40.0 - 48.4 % 11/16/2023 9:12 AM EST LABORATORY [facility] MCV 93.2 82.0 - 99.5 fL 11/16/2023 9:12 AM EST LABORATORY GMC MCH 31.1 27.0 - 34.0 pg 11/16/2023 9:12 AM EST LABORATORY GMC MCHC 33.3 32.0 - 36.0 g/dL 11/16/2023 9:12 AM EST LABORATORY GMC RDW 12.3 11.5 - 15.5 % 11/16/2023 9:12 AM EST LABORATORY G[facility] PLT 290 140 - 400 K/uL 11/16/2023 9:12 AM EST LABORATORY GMC MPV 10.0 6.6 - 11.1 fL 11/16/2023 9:12 AM EST LABORATORY GMC nRBCs 0 <=0 /100 WBCs 11/16/2023 9:12 AM EST LABORATORY G[facility] Blood Venous blood specimen / Unknown Venipuncture / Unknown 11/16/2023 8:04 AM EST 11/16/2023 8:59 AM EST [facility] LAB BLOOD ORDER JEREMIAS Performing Organization Address City/[facility]/ZIP Co de Phone Number LABORATORY [facility] [address] [place] [address] * PHOSPHORUS (11/16/2023 8:04 AM EST) Phosphorus 4.3 2.5 - 4.8 mg/dL 11/16/2023 9:31 AM EST LABORATORY G[facility] Blood Venous blood specimen / Unknown Venipuncture / Unknown 11/16/2023 8:04 AM EST 11/16/2023 8:59 AM EST [facility] LAB BLOOD ORDER JEREMIAS Performing Organization Address [facility] Co de Phone Number LABORATORY [facility] [address] [place] [address] * MAGNESIUM (11/16/2023 8:04 AM EST) Magnesium 2.2 1.5 - 2.6 mg/dL 11/16/2023 9:31 AM EST LABORATORY G[facility] Blood Venous blood specimen / Unknown Venipuncture / Unknown 11/16/2023 8:04 AM EST 11/16/2023 8:59 AM EST Adonay [facility]-C LAB BLOOD ORDER JEREMIAS Performing Organization Address City/[facility] Co de Phone Number LABORATORY [facility] [address] [place] [address] * (ABNORMAL) BASIC METABOLIC PANEL (11/16/2023 8:04 AM EST) BUN 23(H) 6 - 20 mg/dL 11/16/2023 9:31 AM EST LABORATORY [facility] Creatinine 1.1 0.6 - 1.2 mg/dL 11/16/2023 9:31 AM EST LABORATORY [facility] Estimated Glomerular Filtration Rate 75 >=60 mL/min 11/16/2023 9:31 AM EST LABORATORY [facility] Comment:eGFR is calculated b ased on the CKD-EPI 2020 equation Sodium 136 135 - 146 mmol/L 11/16/2023 9:31 AM EST LABORATORY GMC Potassium 4.8 3.5 - 5.1 mmol/L 11/16/2023 9:31 AM EST LABORATORY GMC Chloride 99 98 - 107 mmol/L 11/16/2023 9:31 AM EST LABORATORY G[facility] CO2 26 22 - 32 mmol/L 11/16/2023 9:31 AM EST LABORATORY GMC Anion Gap 11 7 - 15 mmol/L 11/16/2023 9:31 AM EST LABORATORY C Glucose 102 70 - 120 mg/dL 11/16/2023 9:31 AM EST LABORATORY [facility] Calcium 9.3 8.4 - 10.2 mg/dL 11/16/2023 9:31 AM EST LAB[facility]ATORY [facility] Blood Venous blood specimen / Unknown Venipuncture / Unknown 11/16/2023 8:04 AM EST 11/16/2023 8:59 AM EST Adonay Conn PA-C LAB BLOOD ORDER JEREMIAS LABORATORY [facility] [address], [place] [id number] * (ABNORMAL) PT INR (11/15/2023 7:20 AM EST) [facility] Prothrombin Time 15.3(H) 11.6 - 15.2 seconds 11/15/2023 7:52 AM EST LABORATORY GM INR 1.2 0.8 - 1.2 11/15/2023 7:52 AM EST LABORATORY [facility] Blood Venous blood specimen / Unknown Venipuncture / Unknown 11/15/2023 7:20 AM EST 11/15/2023 7:30 AM EST Narrative LABORATORY [facility] - 11/15/2023 7:52 AM EST Warfarin Therapy INR: 2.0-3.0 conventional anticoagulation INR: 2.5-3.5 high intensity anticoagulation Adonay Sahawell PA-C LAB BLOOD ORDER JEREMIAS LABORATORY [facility] [address] [place] [address] * PHOSPHORUS (11/15/2023 7:20 AM EST) Phosphorus 4.0 2.5 - 4.8 mg/dL 11/15/2023 8:01 AM EST LABORATORY [facility] Blood Venous blood specimen / Unknown Venipuncture / Unknown 11/15/2023 7:20 AM EST 11/15/2023 7:30 AM EST Adonay Sahawell PA-C LAB BLOOD ORDER JEREMIAS Performing Organization Address City/[facility]/ZIP Co de Phone Number LABORATORY [facility] [address] [place] [address] * MAGNESIUM (11/15/2023 7:20 AM EST) Magnesium 2.2 1.5 - 2.6 mg/dL 11/15/2023 8:01 AM EST LABORATORY [facility] Blood Venous blood specimen / Unknown Venipuncture / Unknown 11/15/2023 7:20 AM EST 11/15/2023 7:30 AM EST [facility] LAB BLOOD ORDER JEREMIAS Performing Organization Address City/[facility]/ZIP Co de Phone Number LABORATORY [facility] [address] [place] [address] * (ABNORMAL) BASIC METABOLIC PANEL (11/15/2023 7:20 AM EST) BUN 24(H) 6 - 20 mg/dL 11/15/2023 8:01 AM EST LABORATORY [facility] Creatinine 1.0 0.6 - 1.2 mg/dL 11/15/2023 8:01 AM EST LAB[facility]ATORY [facility] Estimated Glomerular Filtration Rate 88 >=60 mL/min 11/15/2023 8:01 AM EST LABORATORY [facility] Comment:eGFR is calculated b ased on the CKD-EPI 2020 equation Sodium 137 135 - 146 mmol/L 11/15/2023 8:01 AM EST LABORATORY [facility] Potassium 4.6 3.5 - 5.1 mmol/L 11/15/2023 8:01 AM EST LABORATORY [facility] Chloride 103 98 - 107 mmol/L 11/15/2023 8:01 AM EST LABORATORY G[facility] CO2 24 22 - 32 mmol/L 11/15/2023 8:01 AM EST LABORATORY GMC Anion Gap 10 7 - 15 mmol/L 11/15/2023 8:01 AM EST LABORATORY G[facility] Glucose 112 70 - 120 mg/dL 11/15/2023 8:01 AM EST LABORATORY G[facility] Calcium 9.0 8.4 - 10.2 mg/dL 11/15/2023 8:01 AM EST LABORATORY G[facility] Blood Venous blood specimen / Unknown Venipuncture / Unknown 11/15/2023 7:20 AM EST 11/15/2023 7:30 AM EST Adonay Conn PA-C LAB BLOOD ORDER JEREMIAS Performing Organization Address City/State/[facility] Co de Phone Number LABORATORY [facility] [address] [place] [address] * (ABNORMAL) CBC (11/15/2023 7:19 AM EST) WBC 10.16 4.00 - 10.80 K/uL 11/15/2023 7:41 AM EST LABORATORY [facility] RBC 4.22 4.50 - 5.25 M/uL 11/15/2023 7:41 AM EST LABORATORY G[facility] HGB 13.3(L) 14.0 - 16.8 g/dL 11/15/2023 7:41 AM EST LABORATORY GMC HCT 38.8(L) 40.0 - 48.4 % 11/15/2023 7:41 AM EST LABORATORY GMC MCV 91.9 82.0 - 99.5 fL 11/15/2023 7:41 AM EST LABORATORY GMC MCH 31.5 27.0 - 34.0 pg 11/15/2023 7:41 AM EST LABORATORY GMC MCHC 34.3 32.0 - 36.0 g/dL 11/15/2023 7:41 AM EST LABORATORY GMC RDW 12.2 11.5 - 15.5 % 11/15/2023 7:41 AM EST LABORATORY GMC PLT 271 140 - 400 K/uL 11/15/2023 7:41 AM EST LABORATORY GMC MPV 9.7 6.6 - 11.1 fL 11/15/2023 7:41 AM EST LABORATORY GMC nRBCs 0 <=0 /100 WBCs 11/15/2023 7:41 AM EST LABORATORY G[facility] Blood Venous blood specimen / Unknown Venipuncture / Unknown 11/15/2023 7:19 AM EST 11/15/2023 7:30 AM EST Adonay Conn PA-C LAB BLOOD ORDER JEREMIAS Performing Organization Address City/[facility]/ZIP Co de Phone Number LABORATORY [facility] [address] [place] [address] * (ABNORMAL) PT INR (11/14/2023 7:15 AM EST) Prothrombin Time 15.4(H) 11.6 - 15.2 seconds 11/14/2023 7:58 AM EST LABORATORY GM INR 1.2 0.8 - 1.2 11/14/2023 7:58 AM EST LABORATORY [facility] Blood Venous blood specimen / Unknown Venipuncture / Unknown 11/14/2023 7:15 AM EST 11/14/2023 7:36 AM EST Narrative LABORATORY G[facility] - 11/14/2023 7:58 AM EST Warfarin Therapy INR: 2.0-3.0 conventional anticoagulation INR: 2.5-3.5 high intensity anticoagulation Adonay Conn PA-C LAB BLOOD ORDER JEREMIAS LABORATORY [facility] [address] [place] [address] * (ABNORMAL) CBC (11/14/2023 7:15 AM EST) WBC 10.25 4.00 - 10.80 K/uL 11/14/2023 7:45 AM EST LABORATORY GM RBC 4.01 4.50 - 5.25 M/uL 11/14/2023 7:45 AM EST LABORATORY GMC HGB 12.7(L) 14.0 - 16.8 g/dL 11/14/2023 7:45 AM EST LABORATORY G[facility] HCT 37.4(L) 40.0 - 48.4 % 11/14/2023 7:45 AM EST LABORATORY G[facility] MCV 93.3 82.0 - 99.5 fL 11/14/2023 7:45 AM EST LABORATORY GMC MCH 31.7 27.0 - 34.0 pg 11/14/2023 7:45 AM EST LABORATORY GMC MCHC 34.0 32.0 - 36.0 g/dL 11/14/2023 7:45 AM EST LABORATORY GMC RDW 12.2 11.5 - 15.5 % 11/14/2023 7:45 AM EST LABORATORY GMC PLT 249 140 - 400 K/uL 11/14/2023 7:45 AM EST LABORATORY GMC MPV 9.8 6.6 - 11.1 fL 11/14/2023 7:45 AM EST LABORATORY GMC nRBCs 0 <=0 /100 WBCs 11/14/2023 7:45 AM EST LABORATORY G[facility] Blood Venous blood specimen / Unknown Venipuncture / Unknown 11/14/2023 7:15 AM EST 11/14/2023 7:36 AM EST Adonay KIDD-C LAB BLOOD ORDER JEREMIAS LABORATORY [facility] [address] [place] [address] * PHOSPHORUS (11/14/2023 7:15 AM EST) Phosphorus 3.6 2.5 - 4.8 mg/dL 11/14/2023 8:07 AM EST LABORATORY G[facility] Blood Venous blood specimen / Unknown Venipuncture / Unknown 11/14/2023 7:15 AM EST 11/14/2023 7:36 AM EST Adonay Sahawell PA-C LAB BLOOD ORDER JEREMIAS LABORATORY [facility] [address] [place] [address] * MAGNESIUM (11/14/2023 7:15 AM EST) Magnesium 2.3 1.5 - 2.6 mg/dL 11/14/2023 8:07 AM EST LABORATORY G[facility] Blood Venous blood specimen / Unknown Venipuncture / Unknown 11/14/2023 7:15 AM EST 11/14/2023 7:36 AM EST Adonay Conn PA-C LAB BLOOD ORDER JEREMIAS LABORATORY [facility] [address] [place] [address] * (ABNORMAL) BASIC METABOLIC PANEL (11/14/2023 7:15 AM EST) BUN 24(H) 6 - 20 mg/dL 11/14/2023 8:07 AM EST LABORATORY [facility] Creatinine 1.1 0.6 - 1.2 mg/dL 11/14/2023 8:07 AM EST LABORATORY G[facility] Estimated Glomerular Filtration Rate 79 >=60 mL/min 11/14/2023 8:07 AM EST LABORATORY GMC Comment:eGFR is calculated b ased on the CKD-EPI 2020 equation Sodium 138 135 - 146 mmol/L 11/14/2023 8:07 AM EST LABORATORY GMC Potassium 4.7 3.5 - 5.1 mmol/L 11/14/2023 8:07 AM EST LABORATORY G[facility] Chloride 103 98 - 107 mmol/L 11/14/2023 8:07 AM EST LABORATORY G[facility] CO2 26 22 - 32 mmol/L 11/14/2023 8:07 AM EST LABORATORY G[facility] Anion Gap 9 7 - 15 mmol/L 11/14/2023 8:07 AM EST LABORATORY G[facility] Glucose 103 70 - 120 mg/dL 11/14/2023 8:07 AM EST LABORATORY G[facility] Calcium 8.9 8.4 - 10.2 mg/dL 11/14/2023 8:07 AM EST LABORATORY G[facility] Blood Venous blood specimen / Unknown Venipuncture / Unknown 11/14/2023 7:15 AM EST 11/14/2023 7:36 AM EST Adonay Conn PA-C LAB BLOOD ORDER JEREMIAS LABORATORY [facility] [address] [place] [address] * (ABNORMAL) PT INR (11/13/2023 6:57 AM EST) Prothrombin Time 15.6(H) 11.6 - 15.2 seconds 11/13/2023 7:47 AM EST LABORATORY G[facility] INR 1.2 0.8 - 1.2 11/13/2023 7:47 AM EST LABORATORY G[facility] Blood Venous blood specimen / Unknown Venipuncture / Unknown 11/13/2023 6:57 AM EST 11/13/2023 7:25 AM EST Narrative LABORATORY G[facility] - 11/13/2023 7:47 AM EST Warfarin Therapy INR: 2.0-3.0 conventional anticoagulation INR: 2.5-3.5 high intensity anticoagulation Adonay Conn PA-C LAB BLOOD ORDER JEREMIAS Performing Organization Address City/[facility]/ZIP Co de Phone Number LABORATORY [facility] [address] [place] [address] * (ABNORMAL) CBC (11/13/2023 6:56 AM EST) WBC 11.63(H) 4.00 - 10.80 K/uL 11/13/2023 7:36 AM EST LABORATORY [facility] RBC 4.36 4.50 - 5.25 M/uL 11/13/2023 7:36 AM EST LABORATORY [facility] HGB 13.5(L) 14.0 - 16.8 g/dL 11/13/2023 7:36 AM EST LABORATORY [facility] HCT 40.1 40.0 - 48.4 % 11/13/2023 7:36 AM EST LABORATORY [facility] MCV 92.0 82.0 - 99.5 fL 11/13/2023 7:36 AM EST LABORATORY G[facility] MCH 31.0 27.0 - 34.0 pg 11/13/2023 7:36 AM EST LABORATORY G[facility] MCHC 33.7 32.0 - 36.0 g/dL 11/13/2023 7:36 AM EST LABORATORY G[facility] RDW 12.3 11.5 - 15.5 % 11/13/2023 7:36 AM EST LABORATORY [facility] PLT 265 140 - 400 K/uL 11/13/2023 7:36 AM EST LABORATORY G[facility] MPV 10.1 6.6 - 11.1 fL 11/13/2023 7:36 AM EST LABORATORY [facility] nRBCs 0 <=0 /100 WBCs 11/13/2023 7:36 AM EST LABORATORY [facility] Blood Venous blood specimen / Unknown Venipuncture / Unknown 11/13/2023 6:56 AM EST 11/13/2023 7:26 AM EST Adonay KIDD-C LAB BLOOD ORDER JEREMIAS LABORATORY [facility] [address] [place] [address] * PHOSPHORUS (11/13/2023 6:56 AM EST) Phosphorus 3.5 2.5 - 4.8 mg/dL 11/13/2023 7:52 AM EST LABORATORY [facility] Blood Venous blood specimen / Unknown Venipuncture / Unknown 11/13/2023 6:56 AM EST 11/13/2023 7:26 AM EST Adonay KIDD-C LAB BLOOD ORDER JEREMIAS Performing Organization Address City/[facility]/ZIP Co de Phone Number LABORATORY [facility] [address] [place] [address] * MAGNESIUM (11/13/2023 6:56 AM EST) Magnesium 2.2 1.5 - 2.6 mg/dL 11/13/2023 7:52 AM EST LABORATORY [facility] Blood Venous blood specimen / Unknown Venipuncture / Unknown 11/13/2023 6:56 AM EST 11/13/2023 7:26 AM EST Adonay KIDD-C LAB BLOOD ORDER JEREMIAS LABORATORY [facility] [address] [place] [address] * (ABNORMAL) BASIC METABOLIC PANEL (11/13/2023 6:56 AM EST) BUN 23(H) 6 - 20 mg/dL 11/13/2023 7:52 AM EST LABORATORY [facility] Creatinine 1.0 0.6 - 1.2 mg/dL 11/13/2023 7:52 AM EST LABORATORY [facility] Estimated Glomerular Filtration Rate 90 >=60 mL/min 11/13/2023 7:52 AM EST LABORATORY G[facility] Comment:eGFR is calculated b ased on the CKD-EPI 2020 equation Sodium 139 135 - 146 mmol/L 11/13/2023 7:52 AM EST LABORATORY [facility] Potassium 4.5 3.5 - 5.1 mmol/L 11/13/2023 7:52 AM EST LABORATORY [facility] Chloride 104 98 - 107 mmol/L 11/13/2023 7:52 AM EST LABORATORY [facility] CO2 24 22 - 32 mmol/L 11/13/2023 7:52 AM EST LABORATORY [facility] Anion Gap 11 7 - 15 mmol/L 11/13/2023 7:52 AM EST LABORATORY [facility] Glucose 115 70 - 120 mg/dL 11/13/2023 7:52 AM EST LABORATORY [facility] Calcium 8.9 8.4 - 10.2 mg/dL 11/13/2023 7:52 AM EST LABORATORY [facility] Blood Venous blood specimen / Unknown Venipuncture / Unknown 11/13/2023 6:56 AM EST 11/13/2023 7:26 AM EST Adonay Conn PA-C LAB BLOOD ORDER JEREMIAS LABORATORY [facility] [address] [place] [address] * (ABNORMAL) PT INR (11/12/2023 7:07 AM EST) Prothrombin Time 15.6(H) 11.6 - 15.2 seconds 11/12/2023 8:13 AM EST LABORATORY [facility] INR 1.2 0.8 - 1.2 11/12/2023 8:13 AM EST LABORATORY [facility] Blood Venous blood specimen / Unknown Venipuncture / Unknown 11/12/2023 7:07 AM EST 11/12/2023 7:51 AM EST Narrative LABORATORY GM - 11/12/2023 8:13 AM EST Warfarin Therapy INR: 2.0-3.0 conventional anticoagulation INR: 2.5-3.5 high intensity anticoagulation Adonay Conn PA-C LAB BLOOD ORDER JEREMIAS LABORATORY [facility] [address] [place] [address] * (ABNORMAL) CBC (11/12/2023 7:07 AM EST) WBC 12.96(H) 4.00 - 10.80 K/uL 11/12/2023 8:02 AM EST LABORATORY GM RBC 4.24 4.50 - 5.25 M/uL 11/12/2023 8:02 AM EST LABORATORY [facility] HGB 13.0(L) 14.0 - 16.8 g/dL 11/12/2023 8:02 AM EST LABORATORY [facility] HCT 39.1(L) 40.0 - 48.4 % 11/12/2023 8:02 AM EST LABORATORY [facility] MCV 92.2 82.0 - 99.5 fL 11/12/2023 8:02 AM EST LABORATORY [facility] MCH 30.7 27.0 - 34.0 pg 11/12/2023 8:02 AM EST LABORATORY GM MCHC 33.2 32.0 - 36.0 g/dL 11/12/2023 8:02 AM EST LABORATORY [facility] RDW 12.4 11.5 - 15.5 % 11/12/2023 8:02 AM EST LABORATORY [facility] PLT 255 140 - 400 K/uL 11/12/2023 8:02 AM EST LABORATORY [facility] MPV 10.2 6.6 - 11.1 fL 11/12/2023 8:02 AM EST LABORATORY GM nRBCs 0 <=0 /100 WBCs 11/12/2023 8:02 AM EST LABORATORY [facility] [place] Venous blood specimen / Unknown Venipuncture / Unknown 11/12/2023 7:07 AM EST 11/12/2023 7:51 AM EST Adonay Quincy Conn HI-C LAB BLOOD ORDER JEREMIAS Performing Organization Address City/[facility]/ZIP Co de Phone Number LAB[facility]ATORY [facility] [address] [place] [address] * PHOSPHORUS (11/12/2023 7:07 AM EST) Phosphorus 2.9 2.5 - 4.8 mg/dL 11/12/2023 8:31 AM EST LAB[facility]ATORY [facility] Blood Venous blood specimen / Unknown Venipuncture / Unknown 11/12/2023 7:07 AM EST 11/12/2023 7:51 AM EST Adonay Quincy KIDD-C LAB BLOOD ORDER JEREMIAS Performing Organization Address [facility] de Phone Number LABORATORY C [address] [place] [address] * MAGNESIUM (11/12/2023 7:07 AM EST) Magnesium 2.2 1.5 - 2.6 mg/dL 11/12/2023 8:31 AM EST LABORATORY C Blood Venous blood specimen / Unknown Venipuncture / Unknown 11/12/2023 7:07 AM EST 11/12/2023 7:51 AM EST Adonay Quin[facility] BLOOD ORDER JEREMIAS Performing Organization Address City/[facility] Co de Phone Number [facility]ATORY [facility] [address] [place] [address] * (ABNORMAL) BASIC METABOLIC PANEL (11/12/2023 7:07 AM EST) BUN 19 6 - 20 mg/dL 11/12/2023 8:31 AM EST [facility]ATORY [facility] Creatinine 0.9 0.6 - 1.2 mg/dL 11/12/2023 8:31 AM EST LAB[facility]ATORY [facility] Estimated Glomerular Filtration Rate >90 >=60 mL/min 11/12/2023 8:31 AM EST LAB[facility]ATORY [facility] Comment:eGFR is calculated b ased on the CKD-EPI 2020 equation Sodium 139 135 - 146 mmol/L 11/12/2023 8:31 AM EST LAB[facility]ATORY [facility] Potassium 4.3 3.5 - 5.1 mmol/L 11/12/2023 8:31 AM EST LAB[facility]ATORY [facility] Chloride 105 98 - 107 mmol/L 11/12/2023 8:31 AM EST LAB[facility]ATORY [facility] CO2 23 22 - 32 mmol/L 11/12/2023 8:31 AM EST LAB[facility]ATORY [facility] Anion Gap 11 7 - 15 mmol/L 11/12/2023 8:31 AM EST LAB[facility]ATORY [facility] Glucose 125(H) 70 - 120 mg/dL 11/12/2023 8:31 AM EST LAB[facility]ATORY [facility] Calcium 8.7 8.4 - 10.2 mg/dL 11/12/2023 8:31 AM EST LAB[facility]ATORY [facility] Blood Venous blood specimen / Unknown Venipuncture / Unknown 11/12/2023 7:07 AM EST 11/12/2023 7:51 AM EST Adonay Conn PA-C LAB BLOOD ORDER JEREMIAS LABORATORY [facility] [address] [place] [address] * MRI NEURO 3-D RECONSTRUCTION (11/11/2023 5:45 PM EST) Anatomical Region Laterality Modality 3drecon Magnetic Resonan ce 11/11/2023 6:30 PM EST Impressions 11/11/2023 6:27 PM EST IMPRESSION 1. Expected postoperative changes following left temporal lobe tumor resection with mild residual tumor involving the resection cavity margins, multicentric left parietal enhancement/satellite lesions, and subependymal tumor spread. 2. Stable incidental small right frontal convexity meningioma. Narrative 11/11/2023 6:27 PM EST EXAM MRI BRAIN W WO CONTRAST; MRI NEURO 3-D RECONSTRUCTION- 11/11/2023 HISTORY s/p GBM resection; Per Radiology request COMPARISON MRI brain dated 11/06/2023 TECHNIQUE Multiplanar, multisequence magnetic resonance imaging of the brain was performed before and after the administration of intravenous contrast. Magnetic resonance perfusion imaging was also performed using dynamic susceptibility contrast. Post-processing was performed on an independent workstation. FINDINGS Postoperative changes of left posterolateral craniotomy for resection of left temporal lobe tumor are noted with associated postsurgical blood products and pneumocephalus. Mild residual tumor is seen surrounding the resection cavity margins with known subependymal spread of tumor lining the left lateral ventricle and enhancing satellite lesions in the adjacent left parietal lobe. There is no evidence of territorial ischemic infarction, hydrocephalus, or extra-axial fluid collection. Small right frontal convexity meningioma again noted, measuring approximately 13 x 7 mm, without significant mass effect. Procedure Note Ismael Watts MD - 11/11/2023 EXAM MRI BRAIN W WO CONTRAST; MRI NEURO 3-D RECONSTRUCTION- 11/11/2023 HISTORY s/p GBM resection; Per Radiology request COMPARISON MRI brain dated 11/06/2023 TECHNIQUE Multiplanar, multisequence magnetic resonance imaging of the brain wasperformed before and after the administration of intravenous contrast.Magnetic resonance perfusion imaging was also performed using dynamicsusceptibility contrast. Post-processing was performed on an independentworkstation. FINDINGS Postoperative changes of left posterolateral craniotomy for resection ofleft temporal lobe tumor are noted with associated postsurgical bloodproducts and pneumocephalus. Mild residual tumor is seen surrounding theresection cavity margins with known subependymal spread of tumor liningthe left lateral ventricle and enhancing satellite lesions in the adjacentleft parietal lobe. There is no evidence of territorial ischemic infarction, hydrocephalus, orextra- axial fluid collection. Small right frontal convexity meningioma again noted, measuringapproximately 13 x 7 mm, without significant mass effect. IMPRESSION IMPRESSION 1. Expected postoperative changes following left temporal lobe tumorresection with mild residual tumor involving the resection cavity margins,multicentric left parietal enhancement/satellite lesions, and subependymaltumor spread. 2. Stable incidental small right frontal convexity meningioma. Ryan BARRAGAN MRI-MRA * MRI BRAIN W WO CONTRAST (11/11/2023 5:16 PM EST) Anatomical Region Laterality Modality Neuro, Head Magnetic Resonan ce 11/11/2023 6:30 PM EST Impressions 11/11/2023 6:27 PM EST IMPRESSION 1. Expected postoperative changes following left temporal lobe tumor resection with mild residual tumor involving the resection cavity margins, multicentric left parietal enhancement/satellite lesions, and subependymal tumor spread. 2. Stable incidental small right frontal convexity meningioma. Narrative 11/11/2023 6:27 PM EST EXAM MRI BRAIN W WO CONTRAST; MRI NEURO 3-D RECONSTRUCTION- 11/11/2023 HISTORY s/p GBM resection; Per Radiology request COMPARISON MRI brain dated 11/06/2023 TECHNIQUE Multiplanar, multisequence magnetic resonance imaging of the brain was performed before and after the administration of intravenous contrast. Magnetic resonance perfusion imaging was also performed using dynamic susceptibility contrast. Post-processing was performed on an independent workstation. FINDINGS Postoperative changes of left posterolateral craniotomy for resection of left temporal lobe tumor are noted with associated postsurgical blood products and pneumocephalus. Mild residual tumor is seen surrounding the resection cavity margins with known subependymal spread of tumor lining the left lateral ventricle and enhancing satellite lesions in the adjacent left parietal lobe. There is no evidence of territorial ischemic infarction, hydrocephalus, or extra-axial fluid collection. Small right frontal convexity meningioma again noted, measuring approximately 13 x 7 mm, without significant mass effect. Procedure Note Ismael Watts MD - 11/11/2023 EXAM MRI BRAIN W WO CONTRAST; MRI NEURO 3-D RECONSTRUCTION- 11/11/2023 HISTORY s/p GBM resection; Per Radiology request COMPARISON MRI brain dated 11/06/2023 TECHNIQUE Multiplanar, multisequence magnetic resonance imaging of the brain wasperformed before and after the administration of intravenous contrast.Magnetic resonance perfusion imaging was also performed using dynamicsusceptibility contrast. Post-processing was performed on an independentworkstation. FINDINGS Postoperative changes of left posterolateral craniotomy for resection ofleft temporal lobe tumor are noted with associated postsurgical bloodproducts and pneumocephalus. Mild residual tumor is seen surrounding theresection cavity margins with known subependymal spread of tumor liningthe left lateral ventricle and enhancing satellite lesions in the adjacentleft parietal lobe. There is no evidence of territorial ischemic infarction, hydrocephalus, orextra- axial fluid collection. Small right frontal convexity meningioma again noted, measuringapproximately 13 x 7 mm, without significant mass effect. IMPRESSION IMPRESSION 1. Expected postoperative changes following left temporal lobe tumorresection with mild residual tumor involving the resection cavity margins,multicentric left parietal enhancement/satellite lesions, and subependymaltumor spread. 2. Stable incidental small right frontal convexity meningioma. Adonay Conn PA-C RAD MRI-MRA * (ABNORMAL) PT INR (11/11/2023 6:38 AM EST) Prothrombin Time 15.3(H) 11.6 - 15.2 seconds 11/11/2023 7:51 AM EST [facility] INR 1.2 0.8 - 1.2 11/11/2023 7:51 AM EST [facility] Blood Venous blood specimen / Unknown Venipuncture / Unknown 11/11/2023 6:38 AM EST 11/11/2023 7:17 AM EST Narrative [facility] - 11/11/2023 7:51 AM EST Warfarin Therapy INR: 2.0-3.0 conventional anticoagulation INR: 2.5-3.5 high intensity anticoagulation Adonay Conn PA-C LAB BLOOD ORDER JEREMIAS [facility] [address] [place] [address] * (ABNORMAL) CBC (11/11/2023 6:38 AM EST) WBC 12.74(H) 4.00 - 10.80 K/uL 11/11/2023 7:34 AM EST [facility] RBC 4.40 4.50 - 5.25 M/uL 11/11/2023 7:34 AM EST [facility] HGB 13.7(L) 14.0 - 16.8 g/dL 11/11/2023 7:34 AM EST [facility] HCT 40.9 40.0 - 48.4 % 11/11/2023 7:34 AM EST [facility] MCV 93.0 82.0 - 99.5 fL 11/11/2023 7:34 AM EST [facility] MCH 31.1 27.0 - 34.0 pg 11/11/2023 7:34 AM EST [facility] MCHC 33.5 32.0 - 36.0 g/dL 11/11/2023 7:34 AM EST [facility] RDW 12.3 11.5 - 15.5 % 11/11/2023 7:34 AM EST [facility] PLT 259 140 - 400 K/uL 11/11/2023 7:34 AM EST [facility] MPV 10.2 6.6 - 11.1 fL 11/11/2023 7:34 AM EST [facility] nRBCs 0 <=0 /100 WBCs 11/11/2023 7:34 AM EST [facility] Blood Venous blood specimen / Unknown Venipuncture / Unknown 11/11/2023 6:38 AM EST 11/11/2023 7:17 AM EST Adonay Conn PA-C LAB BLOOD ORDER JEREMIAS [facility] [address] [place] [address] * (ABNORMAL) PHOSPHORUS (11/11/2023 6:38 AM EST) Phosphorus 2.3(L) 2.5 - 4.8 mg/dL 11/11/2023 8:04 AM EST [facility] Blood Venous blood specimen / Unknown Venipuncture / Unknown 11/11/2023 6:38 AM EST 11/11/2023 7:17 AM EST Adonay Conn PA-C LAB BLOOD ORDER JEREMIAS [facility] [address] [place] [address] * MAGNESIUM (11/11/2023 6:38 AM EST) Magnesium 2.3 1.5 - 2.6 mg/dL 11/11/2023 8:04 AM EST [facility] Blood Venous blood specimen / Unknown Venipuncture / Unknown 11/11/2023 6:38 AM EST 11/11/2023 7:17 AM EST Adonay Quin[employer] PA-C LAB BLOOD ORDER JEREMIAS [facility] [address] [place] [address] * (ABNORMAL) BASIC METABOLIC PANEL (11/11/2023 6:38 AM EST) BUN 15 6 - 20 mg/dL 11/11/2023 8:04 AM EST [facility] Creatinine 0.8 0.6 - 1.2 mg/dL 11/11/2023 8:04 AM EST [facility] Estimated Glomerular Filtration Rate >90 >=60 mL/min 11/11/2023 8:04 AM EST [facility] Comment:eGFR is calculated b ased on the CKD-EPI 2020 equation Sodium 135 135 - 146 mmol/L 11/11/2023 8:04 AM EST [facility] Potassium 4.3 3.5 - 5.1 mmol/L 11/11/2023 8:04 AM EST [facility] Chloride 103 98 - 107 mmol/L 11/11/2023 8:04 AM EST [facility] CO2 20(L) 22 - 32 mmol/L 11/11/2023 8:04 AM EST [facility] Anion Gap 12 7 - 15 mmol/L 11/11/2023 8:04 AM EST [facility] Glucose 138(H) 70 - 120 mg/dL 11/11/2023 8:04 AM EST [facility] Calcium 8.7 8.4 - 10.2 mg/dL 11/11/2023 8:04 AM EST [facility] Blood Venous blood specimen / Unknown Venipuncture / Unknown 11/11/2023 6:38 AM EST 11/11/2023 7:17 AM EST Adonay TRUJILLOC LAB BLOOD ORDER JEREMIAS [facility] [address] [place] [address] * POTASSIUM, WHOLE BLOOD (11/10/2023 8:27 PM EST) Potassium, Whole Blood 4.3 3.5 - 5.1 mmol/L 11/10/2023 8:47 PM EST [facility] Blood Venous blood specimen / Unknown Venipuncture / Unknown 11/10/2023 8:27 PM EST 11/10/2023 8:44 PM EST Ryan Bonilla DO LAB BLOOD ORDERABLES Performing Organization Address [facility]/ZIP Co de Phone Number LABORATORY [facility] [address] [place] [address] * (ABNORMAL) POTASSIUM, WHOLE BLOOD (11/10/2023 3:43 PM EST) [facility] Potassium, Whole Blood 2.3(LL) 3.5 - 5.1 mmol/L 11/10/2023 4:02 PM EST [facility]ORY [facility] Blood Arterial blood specimen / Unknown Venipuncture / Unknown 11/10/2023 3:43 PM EST 11/10/2023 3:53 PM EST Remy Banerjee MD LAB BLOOD ORDERA BLES Performing Organization Address City/[facility]/ZIP Co de Phone Number LABORATORY [place] [address] [place] [address] * (ABNORMAL) BLOOD GAS WITH CHEMISTRY, POINT OF CARE (11/10/2023 1:50 PM EST) [facility] Draw Site Arterial Draw 11/10/2023 2:40 PM EST [facility] pH i-STAT 7.307(L) 7.350 - 7.450 11/10/2023 2:40 PM EST [facility] pCO2 i-STAT 17.6(L) 35.0 - 45.0 mm Hg 11/10/2023 2:40 PM EST [facility] pO2 i-STAT 187(H) 75 - 100 mm Hg 11/10/2023 2:40 PM EST [facility] Base Excess i-STAT -16(L) -2 - 2 mmol/L 11/10/2023 2:40 PM EST [facility] Bicarbonate i-STAT 8.8(L) 23.0 - 31.0 mmol/L 11/10/2023 2:40 PM EST [facility] O2 Saturation i-STAT 100.0(H) 94.0 - 98.0 % 11/10/2023 2:40 PM EST [facility] Glucose i-STAT 51(L) 70 - 120 mg/dL 11/10/2023 2:40 PM EST [facility] Potassium i-STAT <2.0(LL) 3.5 - 5.1 mmol/L 11/10/2023 2:40 PM EST [facility] Sodium i-STAT 150(H) 135 - 146 mmol/L 11/10/2023 2:40 PM EST [facility] Calcium Ionized i-STAT 0.63(LL) 1.13 - 1.32 mmol/L 11/10/2023 2:40 PM EST [facility] Hemoglobin i-STAT 7.1(L) 14.0 - 16.8 g/dL 11/10/2023 2:40 PM EST [facility] Hematocrit i-STAT 21(LL) 40 - 48 % 11/10/2023 2:40 PM EST [facility] FiO2 60 % 11/10/2023 2:40 PM EST [facility] Temperature 36.4 C 11/10/2023 2:40 PM EST [facility] Arterial Draw 11/10/2023 1:5 0 PM EST 11/10/2023 2:40 PM EST Ryan Hurtadoma DO LAB POINT OF CARE TE ST DOCKED DEVICE UNSOLICITED RESULTS [facility] [address] [place] [address] * FISH EGFR (11/10/2023 1:21 PM EST) Case/Block [id number] 11/16/2023 4:27 PM EST [facility] Adequacy Adequate cellular specimen 11/16/2023 4:27 PM EST [facility] Interpretation Amplified for EGFR gene status. Interpretation and comments: EGFR amplification: DETECTED. FISH results show evidence of EGFR amplification. 11/16/2023 4:27 PM EST [facility] Total number of tumor cells counted 50 11/16/2023 4:27 PM EST [facility] EGFR average copies/cell 20.0 11/16/2023 4:27 PM EST [facility] CEP 7 average copies/cell 3.7 11/16/2023 4:27 [facility] EGFR/CEP 7 Ratio 5.4 11/16/19 4:27 [facility] Reference Ranges AMPLIFIED: One or more of the following criteria are met: EGFR/CEN7 >2.0 Clusters of >=4 EGFR signals/cell in >=10% of tumor cells >=4 EGFR signals/cell present in >=40% of tumor cells >=15 EGFR signals/cell present in 10% of tumor cells NOT AMPLIFIED: EGFR/ANGEL 7 ratio <2.0 11/16/2023 4:27 [facility] Signal Pattern Observed EGFR/CEN7 >=2.0 Clusters of >=4 EGFR signals/cell in >=10% of tumor cells >=4 EGFR signals/cell present in >=40% of tumor cells >= 15 EGFR signals/cell present in >=10% of tumor cells 11/16/2023 4:27 [facility] Image 11/16/2023 4:27 [facility] Fixation Specimen: Formalin fixed paraffin embedded tissue, 4 micron thickness 11/16/2023 4:27 [facility] Comment Methodology: Fluorescence in situ hybridization (FISH) EGFR and CEP7 Sure FISH probes ([employer], [place]) are used for the detection of EGFR amplification. EGFR FISH assay is a qualitative assay that consists of a 2-color, 2-probe assay. Target areas of tumor are selected from formalin-fixed paraffin-embedded tissue specimens using bright field microscopy. EGFR FISH assay is used for the detection of EGFR gene amplification. Control with EGFR to CEP7 ratios in the positive range and negative range are included in every assay. This test was developed and its performance characteristics determined by [facility]. It has not been cleared or approved by the FDA. The laboratory is regulated under CLIA as qualified to perform high-complexity testing. This test is used for clinical purposes. It should not be regarded as investigational or for research. References: Phoenix Santiago, Clark Louis, et al. EGFR fluorescence in situ hybridization assay: guidelines for application to [id number] lung cancer. Clin Pathol. 2009;62:970-977. 11/16/2023 4:27 [facility] Tissue Brain structure / Unknown 11/10/2023 1:21 PM EST 11/15/2023 3:16 PM EST Matteo Ornelas III, MD LAB CYTOGEN ETICS ORDERABLES LAB[facility]ATORY [facility] [address] [place] [address] * SURGICAL PATHOLOGY (11/10/2023 1:03 PM EST) Final Diagnosis A. Left temporal tumor, biopsy: Glioblastoma, IDH-wild type, WHO grade 4 B. Left temporal tumor, biopsy: Glioblastoma, IDH-wild type, WHO grade 4 C. Left temporal tumor, Sonopet contents: Glioblastoma, IDH-wild type, WHO grade 4 11/15/2023 3:47 PM EST [facility] Final Diagnosis Comment Molecular testing for NGS and MGMT are pending 11/15/2023 3:47 PM EST [facility] Synoptic Report ADDICTION NURSE: Histological Assessment ADDICTION NURSE: HISTOLOGICAL ASSESSMENT - All Specimens Protocol posted: 11/15/2019 CLINICAL History of Prior Therapy for this Neoplasm: Not administered History of Previous Tumor and / or Familial Syndrome: Not known Neuroimaging Findings: There is a heterogeneously mass centered at the left temporal-occipita l junction, with enhancing portions measuring approximately 6.1 x 3.5 x 3.4 cm. SPECIMEN Procedure: Resection Specimen Size, Gross Description: Greatest Dimension (Centimeters): 5.5 cm TUMOR Tumor Site: Brain Brain Tumor Sites: Cerebral lobes Precise Location: Temporal Tumor Laterality: Left Tumor Focality: Unifocal Histologic Type: : Glioblastoma, IDH-wildtype Histologic Grade: WHO Grade IV Treatment Effect (Histological Evidence of Prior Therapy): Not identified SPECIAL STUDIES Biomarker Studies: Pending Designate block for future studies: B1 11/15/2023 3:47 PM EST [facility] Gross Description A. Brain. Received fresh for frozen with a container labeled with "Remy Lujan", "[id number]", "1965" and " left temporal tumor . is an aggregate of multiple pink-ferrer soft friable, hemorrhagic fragments of soft tissue, 2.0 x 1.5 x 0.5 cm. Field Training Manager sections submitted for frozen section in FSA1-A2. The remaining specimen submitted entirely in cassette A3. Gross By: NASIR B. Brain. Received fresh with a container labeled with "Remy Lujan", "[id number]", "1965" and " left temporal tumor". Received is an aggregate of pink-ferrer fragments of soft tissue, 1.1 cm in greatest dimension. The specimen is wrapped and submitted entirely in cassette B1. Gross By: NASIR C. Brain. Received fresh with a container labeled with "Remy Lujan", "[id number]", "1965" and " left temporal tumor Sonopet contents". Received is an aggregate of multiple pink-ferrer morcellated fragments of soft tissue within bloody fluid, 5.5 cm in greatest dimension. Field Training Manager sections submitted in C1. Gross By: NASIR 11/15/2023 3:47 PM EST [facility] Microscopic Description Microscopic examination shows an infiltrative hypercellular astrocytic tumor composed of cells with scant to moderate cytoplasm and round to angular hyperchromatic nuclei. Mitoses are present. There is necrosis with and without pseudopalisading. Immunostains show some of the tumor cells nuclei are positive for p53 and there is intact expression of ATRX. The Mib-1 labeling is high (15%). Hypercellular tumor Necrosis Pseudopalisaded necrosis Mitoses 11/15/2023 3:47 PM EST [facility]ORY [facility] Intraoperative Diagnosis A. Brain. Brain, biopsy, Frozen Section/Intraoper ative Diagnosis: Left temporal tumor-mostly necrotic, favor high-grade glioma per Dr. Knight reported to Dr. Ornelas on 11/10/2023 at 1317. 11/15/2023 3:47 PM EST [facility]ORY [facility] Sign Out Location Pathologist sign out performed at [facility] ([facility] [address] [place] [id number]. 11/15/2023 3:47 PM EST [facility]ORY [facility] Photographic images and diagrams represent elias findings in this case; they are not intended to replace a complete review of the final diagnostic report. The following statement applies to Flow Cytometry, Histology, In situ Hybridization Assays and Molecular Genetics. This test was developed and performed at [facility] and its performance characteristics determined by [facility]. It has not been cleared or approved by the U.S. Food and Drug Administration. The FDA has determined that such clearance or approval is not necessary. This test is used for clinical purposes. It should not be regarded as investigational or for research. Special stains, including histochemical stains, and studies using immunologic and DALIA methodology (where applicable) are performed with appropriate positive and negative control reactions. 11/15/2023 3:47 PM EST [facility]ORY [facility] Tissue Brain structure / Unknown 11/10/2023 1:03 PM EST 11/10/2023 1:10 PM EST Specimen from wound (specimen) Brain structure / Unknown 11/10/2023 1:21 PM EST 11/10/2023 1:29 PM EST Specimen from wound (specimen) Brain structure / Unknown 11/10/2023 1:21 PM EST 11/10/2023 3:00 PM EST Matteo Ornelas III, MD LAB PATHOLO GY ORDERABLES Performing Organization Address City/[facility] Co de Phone Number LABORATORY [facility] [address] [place] [address] * ABO/RH (11/10/2023 6:56 AM EST) ABO O 11/10/2023 9:08 AM EST LABORATORY [facility] BLOOD BANK Rh Negative 11/10/2023 9:08 AM EST [facility] BLOOD B[facility] Blood Venous blood specimen / Unknown Venipuncture / Unknown 11/10/2023 6:56 AM EST 11/10/2023 7:19 AM EST Aamir Mendieta MD LAB BLOOD BANK TEST ORDERABLES LABORATORY [facility] BLO[facility] B[facility] [address] [place] [address] * PT INR (11/10/2023 6:56 AM EST) Prothrombin Time 15.2 11.6 - 15.2 seconds 11/10/2023 7:57 AM EST [facility] INR 1.2 0.8 - 1.2 11/10/2023 7:57 AM EST [facility] Blood Venous blood specimen / Unknown Venipuncture / Unknown 11/10/2023 6:56 AM EST 11/10/2023 7:19 AM EST Narrative [facility] - 11/10/2023 7:57 AM EST Warfarin Therapy INR: 2.0-3.0 conventional anticoagulation INR: 2.5-3.5 high intensity anticoagulation Adonay Conn PA-C LAB BLOOD ORDER JEREMIAS [facility] [address] [place] [address] * CBC (11/10/2023 6:56 AM EST) WBC 6.45 4.00 - 10.80 K/uL 11/10/2023 7:46 AM EST [facility] RBC 4.64 4.50 - 5.25 M/uL 11/10/2023 7:46 AM EST [facility] HGB 14.1 14.0 - 16.8 g/dL 11/10/2023 7:46 AM EST [facility] HCT 42.6 40.0 - 48.4 % 11/10/2023 7:46 AM EST [facility] MCV 91.8 82.0 - 99.5 fL 11/10/2023 7:46 AM EST [facility] MCH 30.4 27.0 - 34.0 pg 11/10/2023 7:46 AM EST [facility] MCHC 33.1 32.0 - 36.0 g/dL 11/10/2023 7:46 AM EST [facility] RDW 12.2 11.5 - 15.5 % 11/10/2023 7:46 AM EST [facility] PLT 221 140 - 400 K/uL 11/10/2023 7:46 AM EST [facility] MPV 10.1 6.6 - 11.1 fL 11/10/2023 7:46 AM EST [facility] nRBCs 0 <=0 /100 WBCs 11/10/2023 7:46 AM EST [facility] Blood Venous blood specimen / Unknown Venipuncture / Unknown 11/10/2023 6:56 AM EST 11/10/2023 7:19 AM EST Adonay Quincy KIDD-C LAB BLOOD ORDER JEREMIAS LABORAT[facility] [address] [place] [address] * PHOSPHORUS (11/10/2023 6:56 AM EST) Phosphorus 3.3 2.5 - 4.8 mg/dL 11/10/2023 8:04 AM EST LABORATORY C Blood Venous blood specimen / Unknown Venipuncture / Unknown 11/10/2023 6:56 AM EST 11/10/2023 7:19 AM EST Adonay Quincy KIDD-C LAB BLOOD ORDER JEREMIAS Performing Organization Address City/[facility]/ZIP Co de Phone Number LABORATORY [facility] [address] [place] [address] * MAGNESIUM (11/10/2023 6:56 AM EST) Magnesium 2.2 1.5 - 2.6 mg/dL 11/10/2023 8:04 AM EST [facility]ORY [facility] Blood Venous blood specimen / Unknown Venipuncture / Unknown 11/10/2023 6:56 AM EST 11/10/2023 7:19 AM EST Adonay Quincy KIDD-C LAB BLOOD ORDER JEREMIAS Performing Organization Address City/[facility]/ZIP Co de Phone Number LABORATORY [facility] [address] [place] [address] * BASIC METABOLIC PANEL (11/10/2023 6:56 AM EST) BUN 20 6 - 20 mg/dL 11/10/2023 8:04 AM EST [facility]ORY [facility] Creatinine 1.2 0.6 - 1.2 mg/dL 11/10/2023 8:04 AM EST [facility] Estimated Glomerular Filtration Rate 69 >=60 mL/min 11/10/2023 8:04 AM EST [facility] Comment:eGFR is calculated b ased on the CKD-EPI 2020 equation Sodium 137 135 - 146 mmol/L 11/10/2023 8:04 AM EST LABORATORY C Potassium 4.2 3.5 - 5.1 mmol/L 11/10/2023 8:04 AM EST [facility] Chloride 102 98 - 107 mmol/L 11/10/2023 8:04 AM EST [facility] CO2 25 22 - 32 mmol/L 11/10/2023 8:04 AM EST LABORATORY C Anion Gap 10 7 - 15 mmol/L 11/10/2023 8:04 AM EST LABORATORY C Glucose 102 70 - 120 mg/dL 11/10/2023 8:04 AM EST LABORATORY C Calcium 8.7 8.4 - 10.2 mg/dL 11/10/2023 8:04 AM EST LABORATORY C Blood Venous blood specimen / Unknown Venipuncture / Unknown 11/10/2023 6:56 AM EST 11/10/2023 7:19 AM EST Adonay Conn PA-C LAB BLOOD ORDER JEREMIAS LABORATORY [facility] [address] [place] [address] * TYPE AND SCREEN (11/10/2023 6:56 AM EST) ABO O 11/10/2023 8:27 AM EST LABORATORY [facility] BLOOD BANK Rh Negative 11/10/2023 8:27 AM EST LAB[facility]ORY [facility] BLOOD [facility] Red Blood Cell Antibody Screen Negative 11/10/2023 8:27 AM EST LABORATORY [facility] BLOOD [facility] Specimen Expiration Date 11/13/2023 23:59 11/10/2023 8:27 AM EST LABOR[facility]ORY [facility] BLOOD BANK Blood Venous blood specimen / Unknown Venipuncture / Unknown 11/10/2023 6:56 AM EST 11/10/2023 7:19 AM EST Aamir Mendieta MD LAB BLOOD BANK TEST ORDERABLES LABORATORY [facility] [address] [place] [address] * PHOSPHORUS (11/09/2023 6:42 AM EST) Phosphorus 3.9 2.5 - 4.8 mg/dL 11/09/2023 8:02 AM EST [facility] Blood Venous blood specimen / Unknown Venipuncture / Unknown 11/09/2023 6:42 AM EST 11/09/2023 7:32 AM EST [facility] Performing Organization Address City/[facility]/ZIP Co de Phone Number LABORATORY [facility] [address] [place] [address] * MAGNESIUM (11/09/2023 6:42 AM EST) Magnesium 2.1 1.5 - 2.6 mg/dL 11/09/2023 8:02 AM EST LABORATORY [facility] Blood Venous blood specimen / Unknown Venipuncture / Unknown 11/09/2023 6:42 AM EST 11/09/2023 7:32 AM EST [facility] Performing Organization Address [facility] de Phone Number LABORATORY [facility] [address] [place] [address] * (ABNORMAL) BASIC METABOLIC PANEL (11/09/2023 6:42 AM EST) BUN 19 6 - 20 mg/dL 11/09/2023 8:02 AM EST LABORATORY [facility] Creatinine 1.3(H) 0.6 - 1.2 mg/dL 11/09/2023 8:02 AM EST LABORATORY [facility] Estimated Glomerular Filtration Rate 66 >=60 mL/min 11/09/2023 8:02 AM EST [facility] Comment:eGFR is calculated b ased on the CKD-EPI 2020 equation Sodium 137 135 - 146 mmol/L 11/09/2023 8:02 AM EST [facility] Potassium 4.7 3.5 - 5.1 mmol/L 11/09/2023 8:02 AM EST [facility] Chloride 103 98 - 107 mmol/L 11/09/2023 8:02 AM EST [facility] CO2 25 22 - 32 mmol/L 11/09/2023 8:02 AM EST LABORATORY [facility] Anion Gap 9 7 - 15 mmol/L 11/09/2023 8:02 AM EST LABORATORY [facility] Glucose 105 70 - 120 mg/dL 11/09/2023 8:02 AM EST LAB[facility]ATORY [facility] Calcium 9.1 8.4 - 10.2 mg/dL 11/09/2023 8:02 AM EST LAB[facility]ATORY [facility] Blood Venous blood specimen / Unknown Venipuncture / Unknown 11/09/2023 6:42 AM EST 11/09/2023 7:32 AM EST Adonay Conn PA-C LAB BLOOD ORDER JEREMIAS LABORATORY [facility] [address] [place] [address] * PHOSPHORUS (11/08/2023 7:24 AM EST) Phosphorus 3.7 2.5 - 4.8 mg/dL 11/08/2023 8:14 AM EST LABORATORY [facility] Blood Venous blood specimen / Unknown Venipuncture / Unknown 11/08/2023 7:24 AM EST 11/08/2023 7:46 AM EST Adonay KIDD-C LAB BLOOD ORDER JEREMIAS Performing Organization Address City/[facility]/ZIP Co de Phone Number LABORATORY C [address] [place] [address] * MAGNESIUM (11/08/2023 7:24 AM EST) Magnesium 2.3 1.5 - 2.6 mg/dL 11/08/2023 8:14 AM EST LABORATORY [facility] Blood Venous blood specimen / Unknown Venipuncture / Unknown 11/08/2023 7:24 AM EST 11/08/2023 7:46 AM EST Adonay Conn PA-C LAB BLOOD ORDER JEREMIAS LAB[facility]ATORY [facility] [address] [place] [address] * BASIC METABOLIC PANEL (11/08/2023 7:24 AM EST) BUN 17 6 - 20 mg/dL 11/08/2023 8:14 AM EST LABORATORY [facility] Creatinine 1.2 0.6 - 1.2 mg/dL 11/08/2023 8:14 AM EST LABORATORY [facility] Estimated Glomerular Filtration Rate 74 >=60 mL/min 11/08/2023 8:14 AM EST LABORATORY [facility] Comment:eGFR is calculated b ased on the CKD-EPI 2020 equation Sodium 138 135 - 146 mmol/L 11/08/2023 8:14 AM EST LABORATORY [facility] Potassium 4.2 3.5 - 5.1 mmol/L 11/08/2023 8:14 AM EST LAB[facility]ATORY [facility] Chloride 105 98 - 107 mmol/L 11/08/2023 8:14 AM EST LAB[facility]ATORY [facility] CO2 24 22 - 32 mmol/L 11/08/2023 8:14 AM EST LAB[facility]ATORY [facility] Anion Gap 9 7 - 15 mmol/L 11/08/2023 8:14 AM EST LABORATORY [facility] Glucose 104 70 - 120 mg/dL 11/08/2023 8:14 AM EST LABORATORY [facility] Calcium 8.9 8.4 - 10.2 mg/dL 11/08/2023 8:14 AM EST LABORATORY [facility] Blood Venous blood specimen / Unknown Venipuncture / Unknown 11/08/2023 7:24 AM EST 11/08/2023 7:46 AM EST Adonay Conn PA-C LAB BLOOD ORDER JEREMIAS LAB[facility]ATORY [facility] [address] [place] [address] * ECHO, COMPLETE (2D), TRANS-THORACIC (11/07/2023 9:14 AM EST) LEFT VENTRICULAR EJECTION FRACTION 55 % [facility] 11/07/2023 8:04 AM EST Axel Lazo MD ECHOCARDIOLOGY [facility] * PHOSPHORUS (11/07/2023 7:19 AM EST) Phosphorus 3.2 2.5 - 4.8 mg/dL 11/07/2023 8:07 AM EST LAB[facility]ATORY [facility] Blood Venous blood specimen / Unknown Venipuncture / Unknown 11/07/2023 7:19 AM EST 11/07/2023 7:40 AM EST Adonay KIDD- LAB BLOOD ORDER JEREMIAS Performing Organization Address City/[facility]/ZIP Co de Phone Number LABORATORY [facility] [address] [place] [address] * MAGNESIUM (11/07/2023 7:19 AM EST) Magnesium 2.2 1.5 - 2.6 mg/dL 11/07/2023 8:07 AM EST LAB[facility]ATORY [facility] Blood Venous blood specimen / Unknown Venipuncture / Unknown 11/07/2023 7:19 AM EST 11/07/2023 7:40 AM EST Adonay KIDD-C LAB BLOOD ORDER JEREMIAS Performing Organization Address [facility] de Phone Number LABORATORY [facility] [address] [place] [address] * BASIC METABOLIC PANEL (11/07/2023 7:19 AM EST) BUN 14 6 - 20 mg/dL 11/07/2023 8:07 AM EST LABORATORY [facility] Creatinine 1.1 0.6 - 1.2 mg/dL 11/07/2023 8:07 AM EST LAB[facility]ATORY [facility] Estimated Glomerular Filtration Rate 79 >=60 mL/min 11/07/2023 8:07 AM EST LABORATORY [facility] Comment:eGFR is calculated b ased on the CKD-EPI 2020 equation Sodium 140 135 - 146 mmol/L 11/07/2023 8:07 AM EST LABORATORY [facility] Potassium 4.2 3.5 - 5.1 mmol/L 11/07/2023 8:07 AM EST LAB[facility]ATORY [facility] Chloride 104 98 - 107 mmol/L 11/07/2023 8:07 AM EST LAB[facility]ATORY [facility] CO2 25 22 - 32 mmol/L 11/07/2023 8:07 AM EST LAB[facility]ATORY [facility] Anion Gap 11 7 - 15 mmol/L 11/07/2023 8:07 AM EST LAB[facility]ATORY [facility] Glucose 115 70 - 120 mg/dL 11/07/2023 8:07 AM EST LAB[facility]ATORY [facility] Calcium 9.0 8.4 - 10.2 mg/dL 11/07/2023 8:07 AM EST LAB[facility]ATORY [facility] Blood Venous blood specimen / Unknown Venipuncture / Unknown 11/07/2023 7:19 AM EST 11/07/2023 7:40 AM EST Adonay Conn PA-C LAB BLOOD ORDER JEREMIAS LAB[facility]ATORY [facility] [address] [place] [address] * CBC (11/07/2023 7:19 AM EST) WBC 5.93 4.00 - 10.80 K/uL 11/07/2023 7:49 AM EST LAB[facility]ATORY [facility] RBC 4.75 4.50 - 5.25 M/uL 11/07/2023 7:49 AM EST LAB[facility]ATORY [facility] HGB 14.7 14.0 - 16.8 g/dL 11/07/2023 7:49 AM EST LAB[facility]ATORY [facility] HCT 43.6 40.0 - 48.4 % 11/07/2023 7:49 AM EST LABORATORY [facility] MCV 91.8 82.0 - 99.5 fL 11/07/2023 7:49 AM EST LABORATORY [facility] MCH 30.9 27.0 - 34.0 pg 11/07/2023 7:49 AM EST LABORATORY [facility] MCHC 33.7 32.0 - 36.0 g/dL 11/07/2023 7:49 AM EST LABORATORY [facility] RDW 12.4 11.5 - 15.5 % 11/07/2023 7:49 AM EST LABORATORY [facility] PLT 233 140 - 400 K/uL 11/07/2023 7:49 AM EST LABORATORY [facility] MPV 9.8 6.6 - 11.1 fL 11/07/2023 7:49 AM EST LAB[facility]ATORY [facility] nRBCs 0 <=0 /100 WBCs 11/07/2023 7:49 AM EST LAB[facility]ORY [facility] Blood Venous blood specimen / Unknown Venipuncture / Unknown 11/07/2023 7:19 AM EST 11/07/2023 7:40 AM EST Axel Lazo MD LAB BLOOD ORDERABLES LABORATORY [facility] [address] [place] [address] * MRI NEURO 3-D RECONSTRUCTION (11/06/2023 9:41 PM EST) Anatomical Region Laterality Modality 3drecon Magnetic Resonan ce 11/07/2023 9:34 AM EST Impressions 11/07/2023 9:32 AM EST IMPRESSION Localizing exam demonstrating large mass in the left temporoparietal junction, 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. Narrative 11/07/2023 9:32 AM EST EXAM MRI BRAIN WITHOUT CONTRAST; MRI NEURO 3-D RECONSTRUCTION - 11/06/2023 9:28 pm; 11/06/2023 9:41 pm HISTORY DTI, L temporal lesion, preop planning; DTI COMPARISON MRI brain with contrast 11/05/2023 TECHNIQUE Three plane thin-section pre and postcontrast MP rage scans and fat suppressed T2 weighted scans were obtained through the brain. DTI with white matter tracking was performed. FINDINGS There is a heterogeneous mass the left temporal occipital junction, with 2 smaller satellite lesions in the parietal lobe, previously described on the prior exam. The mass displaces the superior longitudinal fasciculus and inferior occipital frontal fascicular S and slightly displaces the forceps major. A 10 x 4 mm meningioma is incidentally noted along the left frontal convexity. Procedure Note Mela Bowman MD - 11/07/2023 EXAM MRI BRAIN WITHOUT CONTRAST; MRI NEURO 3-D RECONSTRUCTION - 11/06/2023 9:28pm; 11/06/2023 9:41 pm HISTORY DTI, L temporal lesion, preop planning; DTI COMPARISON MRI brain with contrast 11/05/2023 TECHNIQUE Three plane thin-section pre and postcontrast MP rage scans and fatsuppressed T2 weighted scans were obtained through the brain. DTI withwhite matter tracking was performed. FINDINGS There is a heterogeneous mass the left temporal occipital junction, with 2smaller satellite lesions in the parietal lobe, previously described onthe prior exam. The mass displaces the superior longitudinal fasciculusand inferior occipital frontal fascicular S and slightly displaces theforceps major. A 10 x 4 mm meningioma is incidentally noted along the left frontalconvexity. IMPRESSION IMPRESSION Localizing exam demonstrating large mass in the left temporoparietaljunction, 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. Aamir Mendieta MD RAD MRI-MRA * MRI BRAIN WITHOUT CONTRAST (11/06/2023 9:28 PM EST) Anatomical Region Laterality Modality Neuro, Head Magnetic Resonan ce 11/07/2023 9:34 AM EST Impressions 11/07/2023 9:32 AM EST IMPRESSION Localizing exam demonstrating large mass in the left temporoparietal junction, 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. Narrative 11/07/2023 9:32 AM EST EXAM MRI BRAIN WITHOUT CONTRAST; MRI NEURO 3-D RECONSTRUCTION - 11/06/2023 9:28 pm; 11/06/2023 9:41 pm HISTORY DTI, L temporal lesion, preop planning; DTI COMPARISON MRI brain with contrast 11/05/2023 TECHNIQUE Three plane thin-section pre and postcontrast MP rage scans and fat suppressed T2 weighted scans were obtained through the brain. DTI with white matter tracking was performed. FINDINGS There is a heterogeneous mass the left temporal occipital junction, with 2 smaller satellite lesions in the parietal lobe, previously described on the prior exam. The mass displaces the superior longitudinal fasciculus and inferior occipital frontal fascicular S and slightly displaces the forceps major. A 10 x 4 mm meningioma is incidentally noted along the left frontal convexity. Procedure Note Mela Bowman MD - 11/07/2023 EXAM MRI BRAIN WITHOUT CONTRAST; MRI NEURO 3-D RECONSTRUCTION - 11/06/2023 9:28pm; 11/06/2023 9:41 pm HISTORY DTI, L temporal lesion, preop planning; DTI COMPARISON MRI brain with contrast 11/05/2023 TECHNIQUE Three plane thin-section pre and postcontrast MP rage scans and fatsuppressed T2 weighted scans were obtained through the brain. DTI withwhite matter tracking was performed. FINDINGS There is a heterogeneous mass the left temporal occipital junction, with 2smaller satellite lesions in the parietal lobe, previously described onthe prior exam. The mass displaces the superior longitudinal fasciculusand inferior occipital frontal fascicular S and slightly displaces theforceps major. A 10 x 4 mm meningioma is incidentally noted along the left frontalconvexity. IMPRESSION IMPRESSION Localizing exam demonstrating large mass in the left temporoparietaljunction, 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. Aamir Mendieta MD RAD MRI-MRA * CT CHEST/ABDOMEN/PELVIS WITH IV CONTRAST WITHOUT ORAL CONTRAST (11/06/2023 2:12 AM EST) Anatomical Region Laterality Modality Body, Chest, Abdomen, Pelvis, Cardio Computed Tomography 11/06/2023 2:56 AM EST Impressions 11/06/2023 2:54 AM EST IMPRESSION No evidence malignancy or metastases in the chest, abdomen, or pelvis. Narrative 11/06/2023 2:54 AM EST EXAM EXAM: CT CHEST/ABDOMEN/PELVIS WITH IV CONTRAST WITHOUT ORAL CONTRAST DATE and TIME: 11/06/2023 2:12 am HISTORY CLINICAL INFORMATION: rule out metastatic disease for new noted brain tumor TECHNIQUE Oral Contrast: Oral contrast was not administered. IV Contrast: Intravenous contrast was administered. Axials, MIPS and sagittal and coronal reformats were reviewed. COMPARISON None. FINDINGS LINES AND DEVICES: None CHEST: LUNGS: Unremarkable LARGE AIRWAYS: Patent centrally. PLEURA: Unremarkable VESSELS: Mild atherosclerotic calcification of the coronary arteries and aorta. There is common origin of the brachiocephalic and left common carotid artery, an anatomic variant - "bovine arch". HEART: Normal in size. No pericardial effusion. MEDIASTINUM AND MICAH: Unremarkable CHEST WALL/SOFT TISSUES: Unremarkable ABDOMEN/PELVIS: LIVER: Unremarkable BILE DUCTS: Nondilated. GALLBLADDER: Unremarkable PANCREAS: Unremarkable SPLEEN: Unremarkable ADRENALS: Unremarkable KIDNEYS/URETERS: No hydronephrosis or hydroureter. BLADDER: Unremarkable BOWEL: Normal in caliber. Normal appendix. Colonic diverticulosis. LYMPH NODES: Unremarkable VESSELS: Aortoiliac atherosclerosis without aneurysmal dilation. Accessory bilateral renal arteries. REPRODUCTIVE ORGANS: Unremarkable PERITONEUM/RETROPERITONEUM: No free air, free fluid, or organized fluid collections. ABDOMINAL WALL/SOFT TISSUES: Prior umbilical hernia repair with mesh. BONES: No suspicious lesions. Degenerative changes in the spine. Transitional lumbosacral anatomy with a sacralized L5 vertebra. Mild retrolisthesis at L2- L3 and L3-L4. Procedure Note Akshat Plasencia, DO - 11/06/2023 EXAM EXAM: CT CHEST/ABDOMEN/PELVIS WITH IV CONTRAST WITHOUT ORAL CONTRAST DATE and TIME: 11/06/2023 2:12 am HISTORY CLINICAL INFORMATION: rule out metastatic disease for new noted braintumor TECHNIQUE Oral Contrast: Oral contrast was not administered. IV Contrast: Intravenous contrast was administered. Axials, MIPS and sagittal and coronal reformats were reviewed. COMPARISON None. FINDINGS LINES AND DEVICES: None CHEST: LUNGS: Unremarkable LARGE AIRWAYS: Patent centrally. PLEURA: Unremarkable VESSELS: Mild atherosclerotic calcification of the coronary arteries andaorta. There is common origin of the brachiocephalic and left commoncarotid artery, an anatomic variant - "bovine arch". HEART: Normal in size. No pericardial effusion. MEDIASTINUM AND MICAH: Unremarkable CHEST WALL/SOFT TISSUES: Unremarkable ABDOMEN/PELVIS: LIVER: Unremarkable BILE DUCTS: Nondilated. GALLBLADDER: Unremarkable PANCREAS: Unremarkable SPLEEN: Unremarkable ADRENALS: Unremarkable KIDNEYS/URETERS: No hydronephrosis or hydroureter. BLADDER: Unremarkable BOWEL: Normal in caliber. Normal appendix. Colonic diverticulosis. LYMPH NODES: Unremarkable VESSELS: Aortoiliac atherosclerosis without aneurysmal dilation.Accessory bilateral renal arteries. REPRODUCTIVE ORGANS: Unremarkable PERITONEUM/RETROPERITONEUM: No free air, free fluid, or organized fluidcollections. ABDOMINAL WALL/SOFT TISSUES: Prior umbilical hernia repair with mesh. BONES: No suspicious lesions. Degenerative changes in the spine.Transitional lumbosacral anatomy with a sacralized L5 vertebra. Mildretrolisthesis at L2-L3 and L3-L4. IMPRESSION IMPRESSION No evidence malignancy or metastases in the chest, abdomen, or pelvis. Cody RILEY RAD CT * MRSA SCREEN, PCR (11/06/2023 1:36 AM EST) Pathologist [facility] MRSA PCR Result Negative Negative 4 5:05 AM EST LABORATORY [facility] Comment:No Methicillin resis tant Staphylococcus aureus detected by PCR (amplified probe). Upper Respiratory Swab of internal nose / Unknown Non-blood Collection / Unknown 11/06/2023 1:36 AM EST 11/06/2023 2:13 AM EST Cody RILEY LAB MICRO - GENERA L ORDERABLES Performing Organization Address [facility] Co de Phone Number LABORATORY [facility] [address] [place] [address] * CRP (INFLAMMATORY MARKER) (11/06/2023 1:08 AM EST) CRP (Inflammatory Marker) 3 <=5 mg/L 11/06/2023 1:40 AM EST LABORATORY [facility] Blood Venous blood specimen / Unknown Venipuncture / Unknown 11/06/2023 1:08 AM EST 11/06/2023 1:13 AM EST Cody RILEY LAB BLOOD ORDERABL ES Performing Organization Address [facility] Phone Number LABORATORY [address] [address] * ERYTHROCYTE SEDIMENTATION RATE (ESR) (11/06/2023 1:08 AM EST) ESR 15 <20 mm/hour 11/06/2023 1:50 AM EST LABORATORY [facility] Blood Venous blood specimen / Unknown Venipuncture / Unknown 11/06/2023 1:08 AM EST 11/06/2023 1:13 AM EST Cody BOUDREAUXNP LAB BLOOD ORDERABL ES Performing Organization Address [facility] de Phone Number LABORATORY [facility] [address] [place] [address] * PHOSPHORUS (11/06/2023 1:08 AM EST) Phosphorus 3.8 2.5 - 4.8 mg/dL 11/06/2023 1:40 AM EST LABORATORY [facility] Blood Venous blood specimen / Unknown Venipuncture / Unknown 11/06/2023 1:08 AM EST 11/06/2023 1:13 AM EST Cody Swenson DECATIZER LAB BLOOD ORDERABL ES Performing Organization Address City/[facility]/ZIP Co de Phone Number LABORATORY [facility] [address] [place] [address] * MAGNESIUM (11/06/2023 1:08 AM EST) Magnesium 2.1 1.5 - 2.6 mg/dL 11/06/2023 1:40 AM EST LAB[facility]ATORY [facility] Blood Venous blood specimen / Unknown Venipuncture / Unknown 11/06/2023 1:08 AM EST 11/06/2023 1:13 AM EST Cody BOUDREAUXNP LAB BLOOD ORDERABL ES Performing Organization Address [facility] Co de Phone Number LABORATORY [facility] [address] [place] [address] * (ABNORMAL) COMPREHENSIVE METABOLIC PANEL (11/06/2023 1:08 AM EST) BUN 18 6 - 20 mg/dL 11/06/2023 1:40 AM EST LAB[facility]ATORY [facility] Creatinine 1.1 0.6 - 1.2 mg/dL 11/06/2023 1:40 AM EST LAB[facility]ATORY [facility] Estimated Glomerular Filtration Rate 80 >=60 mL/min 11/06/2023 1:40 AM EST LABORATORY [facility] Comment:eGFR is calculated b ased on the CKD-EPI 2020 equation Sodium 137 135 - 146 mmol/L 11/06/2023 1:40 AM EST LAB[facility]ATORY [facility] Potassium 3.9 3.5 - 5.1 mmol/L 11/06/2023 1:40 AM EST LAB[facility]ATORY [facility] Chloride 102 98 - 107 mmol/L 11/06/2023 1:40 AM EST LAB[facility]ATORY [facility] CO2 24 22 - 32 mmol/L 11/06/2023 1:40 AM EST LAB[facility]ATORY [facility] Anion Gap 11 7 - 15 mmol/L 11/06/2023 1:40 AM EST LAB[facility]ATORY [facility] Glucose 127(H) 70 - 120 mg/dL 11/06/2023 1:40 AM EST LAB[facility]ATORY [facility] Albumin 3.9 3.8 - 5.0 g/dL 11/06/2023 1:40 AM EST LABORATORY [facility] AST 22 10 - 50 U/L 11/06/2023 1:40 AM EST LABORATORY [facility] Comment:Result may be falsel y elevated due to hemolysis. Alkaline Phosphatase 80 35 - 130 U/L 11/06/2023 1:40 AM EST LABORATORY [facility] Bilirubin, Total 0.2 <=1.2 mg/dL 11/06/2023 1:40 AM EST LAB[facility]ATORY [facility] Calcium 9.0 8.4 - 10.2 mg/dL 11/06/2023 1:40 AM EST LABORATORY [facility] Protein 6.4 6.0 - 8.3 g/dL 11/06/2023 1:40 AM EST LABORATORY [facility] ALT 30 10 - 50 U/L 11/06/2023 1:40 AM EST LABORATORY [facility] Blood Venous blood specimen / Unknown Venipuncture / Unknown 11/06/2023 1:08 AM EST 11/06/2023 1:13 AM EST Cody RILEY LAB BLOOD ORDERABL ES LABORATORY [facility] [address] [place] [address] * CBC (11/06/2023 1:08 AM EST) WBC 8.34 4.00 - 10.80 K/uL 11/06/2023 1:27 AM EST LABORATORY [facility] RBC 4.86 4.50 - 5.25 M/uL 11/06/2023 1:27 AM EST LAB[facility]ATORY [facility] HGB 15.0 14.0 - 16.8 g/dL 11/06/2023 1:27 AM EST LABORATORY [facility] HCT 44.0 40.0 - 48.4 % 11/06/2023 1:27 AM EST LABORATORY [facility] MCV 90.5 82.0 - 99.5 fL 11/06/2023 1:27 AM EST LABORATORY [facility] MCH 30.9 27.0 - 34.0 pg 11/06/2023 1:27 AM EST LABORATORY [facility] MCHC 34.1 32.0 - 36.0 g/dL 11/06/2023 1:27 AM EST LABORATORY [facility] RDW 12.5 11.5 - 15.5 % 11/06/2023 1:27 AM EST LABORATORY [facility] PLT 272 140 - 400 K/uL 11/06/2023 1:27 AM EST LABORATORY [facility] MPV 9.9 6.6 - 11.1 fL 11/06/2023 1:27 AM EST LABORATORY [facility] nRBCs 0 <=0 /100 WBCs 11/06/2023 1:27 AM EST LAB[facility]ATORY [facility] Blood Venous blood specimen / Unknown Venipuncture / Unknown 11/06/2023 1:08 AM EST 11/06/2023 1:13 AM EST Cody RILEY LAB BLOOD ORDERABL ES LABORATORY [facility] [address] [place] [address] documented in this encounter Visit Diagnoses Diagnosis Brain tumor (HCC)- Primary Neoplasm of unspecified nature of brain Brain lesion Other conditions of brain Chest pain Chest pain, unspecified Preop cardiovascular exam Pre-operative cardiovascular examination Brain tumor (HCC) Neoplasm of unspecified nature of brain Brain mass Unspecified condition of brain ALEKSANDR (obstructive sleep apnea) Obstructive sleep apnea (adult) (pediatric) Venous insufficiency Unspecified venous (peripheral) insufficiency Dyslipidemia, goal LDL below 100 Other and unspecified hyperlipidemia HTN, goal below 140/90 Unspecified essential hypertension Coronary artery disease without angina pectoris Class 3 severe obesity due to excess calories with serious comorbidity and body mass index (BMI) of 40.0 to 44.9 in adult (HCC) Brain mass Unspecified condition of brain Palliative care encounter Encounter for palliative care Goals of care, counseling/discussion Other specified counseling Cancer related pain Neoplasm related pain (acute) (chronic) Nonintractable headache Postoperative pain Other acute postoperative pain Decreased appetite Anorexia Therapeutic opioid-induced constipation (OIC) Word finding difficulty Problems with communication (including speech) Agitation Other and unspecified special symptom or syndrome, not elsewhere classified Glioblastoma (HCC) Malignant neoplasm of brain, unspecified site S/P craniotomy Other postprocedural status documented in this encounter Administered Medications Inactive Administered Medications - up to 3 most recent administrations Medication Order MAR Action Action Date Dose Rate Site Acetaminophen (Tylenol) tab 650 mg 650 mg, Oral, Q4H PRN Pain, Mild, Headache, Fever >38C(100.5F), Starting on Wed11/05/23 at 2340, Until Wed11/10/23 at 1544, Maximum of 4 grams (4000 mg) per day. Given 11/07/2023 7:57 AM EST 650 mg Given 11/06/2023 9:45 PM EST 650 mg Given 11/06/2023 12:58 PM EST 650 mg Acetaminophen (Tylenol) tab 975 mg 975 mg, Oral, Q6H, First dose on Wed11/10/23 at 1800, Last dose on Wed11/15/23 at 1200, For 5 days, Maximum 4 g acetaminophen/day. Avoid in patients with severe hepatic impairment or severe active liver disease. Use for 5 days. Given 11/15/2023 12:33 PM EST 975 mg Given 11/15/2023 4:57 AM EST 975 mg Given 11/14/2023 11:52 PM EST 975 mg Acetaminophen (Tylenol) tab 975 mg 975 mg, Oral, Q8H, First dose (after last reorder) on Wed11/15/23 at 2200, Last dose on Wed11/20/23 at 1400, For 5 days, Maximum 4 g acetaminophen/day. Avoid in patients with severe hepatic impairment or severe active liver disease. Use for 5 days. Given 11/18/2023 12:52 PM EST 975 mg Given 11/18/2023 6:17 AM EST 975 mg Given 11/17/2023 10:04 PM EST 975 mg aspirin chew tab 81 mg 81 mg, Oral, Daily(AM), First dose on Wed11/13/23 at 0900, Until Discontinued Given 11/18/2023 8:38 AM EST 81 mg Given 11/17/2023 8:34 AM EST 81 mg Given 11/16/2023 8:25 AM EST 81 mg buPROPion extended release (SR) (Wellbutrin SR) tab 150 mg 150 mg, Oral, BID (.AM/PM), First dose on Wed11/06/23 at 0900, Until Discontinued, This med should NOT be Crushed or Chewed Given 11/18/2023 8:38 AM EST 150 mg Given 11/17/2023 10:04 PM EST 150 mg Given 11/17/2023 8:34 AM EST 150 mg ceFAZolin (Ancef) in NSS ivpb 3 g 3 g, IV Piggyback, Q8HNOW, 2 doses, First dose on Wed11/10/23 at 2000, Last dose on Wed11/11/23 at 0400 New Bag 11/11/2023 4:31 AM EST 3 g 110 mL/hr New Bag 11/10/2023 10:47 PM EST 3 g 110 mL/hr chlorhexidine gluconate cloth 2 % pad External, [id number], First dose on Wed11/09/23 at 1900, Until Discontinued, Applied to appropriate patients per tissue recovery technician's recommendations following daily care. May use more than one Pad (cloth/wipe) as needed to complete care. Given 11/10/2023 8:28 AM EST Given 11/09/2023 8:29 PM EST 1 Pad cyclobenzaprine (Flexeril) 5 mg tab 5 mg, Oral, ONCE, On Wed11/10/23 at 2000, For 1 dose Given 11/10/2023 9:21 PM EST 5 mg dexAMETHasone Sodium Phosphate (Decadron) 4 MG/ML inj 2 mg 2 mg, IV Push, Q12H, First dose on Wed11/19/23 at 2100, Last dose on Wed11/22/23 at 0900, For 3 days, PROTECT FROM LIGHT dexAMETHasone Sodium Phosphate (Decadron) 4 MG/ML inj 4 mg 4 mg, IV Push, Q6H, First dose on Wed11/10/23 at 1800, Last dose on Wed11/13/23 at 1200, For 3 days, PROTECT FROM LIGHT Given 11/13/2023 11:18 AM EST 4 mg Given 11/13/2023 5:28 AM EST 4 mg Given 11/13/2023 12:38 AM EST 4 mg dexAMETHasone Sodium Phosphate (Decadron) 4 MG/ML inj 4 mg 4 mg, IV Push, Q8H, First dose on Wed11/13/23 at 1800, Last dose on Wed11/16/23 at 1400, For 3 days, PROTECT FROM LIGHT Given 11/16/2023 2:25 PM EST 4 mg Given 11/16/2023 5:11 AM EST 4 mg Given 11/15/2023 9:51 PM EST 4 mg dexAMETHasone Sodium Phosphate (Decadron) 4 MG/ML inj 4 mg 4 mg, IV Push, Q12H, First dose on Wed11/16/23 at 2200, Last dose on Wed11/19/23 at 0900, For 3 days, PROTECT FROM LIGHT Given 11/18/2023 8:38 AM EST 4 mg Given 11/17/2023 10:03 PM EST 4 mg Given 11/17/2023 8:41 AM EST 4 mg Docusate Sodium (Colace) cap 100 mg 100 mg, Oral, BID (.AM/PM), First dose on Wed11/10/23 at 2100, Until Discontinued, For oral administration ONLY, if route of administration is other than oral and alternative product must be ordered. Given 11/13/2023 9:03 PM EST 100 mg Given 11/13/2023 8:19 AM EST 100 mg Given 11/12/2023 9:32 PM EST 100 mg doxycycline monohydrate 25 MG/5ML oral susp 50 mg 50 mg, Oral, [id number], First dose on Wed11/08/23 at 1015, Until Discontinued Given 11/18/2023 8:43 AM EST 50 mg Given 11/17/2023 8:34 AM EST 50 mg Given 11/16/2023 8:29 AM EST 50 mg Famotidine (Pepcid) tab 20 mg 20 mg, Oral, Q12H, First dose on Wed11/11/23 at 0900, Until Discontinued Given 11/18/2023 8:38 AM EST 20 mg Given 11/17/2023 10:04 PM EST 20 mg Given 11/17/2023 8:34 AM EST 20 mg gadobutrol (Gadavist) inj 14.6 mL 14.6 mL (rounded from 14.62 mL = 0.1 mL/kg 146.2 kg), Intravenous, ONCE, On 11/06/23 at 2215, For 1 dose, Radiology Medication Routing (Non-IR) Given 11/06/2023 9:15 PM EST 10 mL gadobutrol (Gadavist) inj 14.7 mL 14.7 mL (rounded from 14.72 mL = 0.1 mL/kg 147.2 kg), Intravenous, ONCE, On Laura 11/11/23 at 1730, For 1 dose, Radiology Medication Routing (Non-IR) Given 11/11/2023 5:30 PM EST 10 mL hEParin inj 7,500 Units 7,500 Units, Subcutaneous, Q8H, First dose on Wed11/06/23 at 1400, Last dose on 11/06/23 at 2200, For 2 doses Given 11/06/2023 8:33 PM EST 7,500 Units Abdomen Left Upper Given 11/06/2023 3:05 PM EST 7,500 Units A bdomen Left Lower hEParin inj 7,500 Units 7,500 Units, Subcutaneous, Q8H, First dose (after last reorder) on 11/07/23 at 1400, Last dose on Wed11/07/23 at 2200, For 2 doses Given 11/07/2023 8:45 PM EST 7,500 Units Abdom en Left Lower Given 11/07/2023 1:45 PM EST 7,500 Units A bdomen Right Lower hEParin inj 7,500 Units 7,500 Units, Subcutaneous, Q8H, First dose (after last modification) on Wed11/08/23 at 1015, Last dose on Wed11/09/23 at 2200, For 5 doses Given 11/09/2023 8:29 PM EST 7,500 Units Abdomen Left Lower Given 11/09/2023 1:59 PM EST 7,500 Units A bdomen Right Lower Given 11/09/2023 5:38 AM EST 7,500 Units A bdomen Left Upper hEParin inj 7,500 Units 7,500 Units, Subcutaneous, Q8H, First dose on Laura 11/11/23 at 1400, Until Discontinued Given 11/18/2023 6:17 AM EST 7,500 Units Abdomen Right Lower Given 11/17/2023 10:04 PM EST 7,500 Units Abdomen Left Lower Given 11/17/2023 1:23 PM EST 7,500 Units A bdomen Right Upper HYDROmorphone (Dilaudid) inj 0.2 mg 0.2 mg, IV Push, Q15 MIN PRN Pain, Severe, Starting on Wed11/10/23 at 1412, Until Wed11/12/23 at 1439, For 5 doses, Administer only postop in PACU. Hold for respiratory rate less than 12. Administer up to a total of 1mg. Given 11/10/2023 3:40 PM EST 0.2 mg Given 11/10/2023 3:25 PM EST 0.2 mg IMPACT AR liquid 250 mL, Oral, BID (AM/PM MEALS), 10 doses, First dose on Wed11/10/23 at 1700, Last dose on Wed11/15/23 at 0800 Given 11/15/2023 9:21 AM EST 250 mL Given 11/14/2023 5:20 PM EST 250 mL Given 11/14/2023 8:04 AM EST 250 mL Ioversol (Optiray 350) 74 % inj 100 mL 100 mL, Intravenous, ONCE, On 11/06/23 at 0245, For 1 dose, Radiology Medication Routing (Non-IR) Given 11/06/2023 2:45 AM EST 86 mL isolyte-S pH 7.4 infusion Intravenous, at 50 mL/hr, Plasma-LYTE 148, isolyte-S, and isolyte-S pH 7.4 are considered equivalent - including for MAR barcode scanning., CONTINUOUS, Starting on Wed11/09/23 at 1430, Until Wed11/09/23 at 1828 Restarted 11/09/2023 7:05 PM EST 50 mL /hr Restarted 11/09/2023 6:43 PM EST 50 mL/hr Rate Verify 11/09/2023 6:22 PM EST 50 mL/hr isolyte-S pH 7.4 infusion Intravenous, at 50 mL/hr, Plasma-LYTE 148, isolyte-S, and isolyte-S pH 7.4 are considered equivalent - including for MAR barcode scanning., CONTINUOUS, Starting on Wed11/09/23 at 1900, Until Wed11/10/23 at 1859 Rate Verify 11/10/2023 4:06 AM EST 50 mL/hr Rate Verify 11/09/2023 9:42 PM EST 50 mL/hr New Bag 11/09/2023 8:35 PM EST 50 mL/hr ketorolac (Toradol) 15 MG/ML inj 15 mg 15 mg, IV Push, ONCE, On 11/13/23 at 0730, For 1 dose Given 11/13/2023 7:18 AM EST 15 mg levETIRAcetam (Keppra) tab 500 mg 500 mg, Oral, BID (.AM/PM), First dose on Wed11/10/23 at 2100, Until Discontinued Given 11/18/2023 8:38 AM EST 500 mg Given 11/17/2023 10:04 PM EST 500 mg Given 11/17/2023 8:34 AM EST 500 mg Lisinopril (Prinivil) tab 20 mg 20 mg, Oral, Daily(AM), First dose on Wed11/06/23 at 0900, Until Discontinued, On hold since Wed11/09/2023 at 1358 until manually unheld Given 11/09/2023 8:23 AM EST 20 mg Given 11/08/2023 8:12 AM EST 20 mg Given 11/07/2023 7:57 AM EST 20 mg melatonin tab 3 mg 3 mg, Oral, HS PRN Insomnia, Starting on Wed11/06/23 at 0002, Until Laura 11/18/23 at 1836 Given 11/17/2023 10:04 PM EST 3 mg Given 11/14/2023 9:18 PM EST 3 mg Given 11/12/2023 9:32 PM EST 3 mg metoprolol succinate XL (toPROL XL) tab 25 mg 25 mg, Oral, Daily(AM), First dose on Wed11/06/23 at 0900, Until Discontinued, Hold for HR less than 60 or SBP below 100 and notify service if dose is held This med should NOT be Crushed or Chewed. Given 11/18/2023 8:38 AM EST 25 mg Given 11/17/2023 8:34 AM EST 25 mg Given 11/16/2023 8:25 AM EST 25 mg morphine sulfate 10 MG/5 ML oral soln 5 mg 5 mg, Oral, Q4H PRN Pain, Moderate, Pain, Severe, Pain, Breakthrough, Starting on Wed11/12/23 at 1438, Until Laura 11/18/23 at 1836, Note concentartion Prior to Administration ! Given 11/18/2023 8:43 AM EST 5 mg Given 11/17/2023 7:04 PM EST 5 mg Given 11/17/2023 2:56 PM EST 5 mg morphine Sulfate ER (Ms Contin) tab 15 mg 15 mg, Oral, Q12H, First dose on Wed11/12/23 at 1315, Until Discontinued, DO NOT CRUSH Given 11/15/2023 9:2 2 AM EST 15 mg Given 11/14/2023 9:17 PM EST 15 mg Given 11/14/2023 8:04 AM EST 15 mg morphine Sulfate ER (Ms Contin) tab 15 mg 15 mg, Oral, Q8H, First dose (after last modification) on 11/15/23 at 1530, Until Discontinued, DO NOT CRUSH Given 11/18/2023 12:52 PM EST 15 mg Given 11/18/2023 6:17 AM EST 15 mg Given 11/17/2023 10:04 PM EST 15 mg morphine sulfate inj 2 mg 2 mg, Intravenous, Q3H PRN Pain, Severe, Starting on Wed11/10/23 at 1544, Until Laura 11/11/23 at 1916, Do not use with BAND SEWER (unless directed by Provider). May use if patient unable to take oxycodone. Given 11/11/2023 12:25 PM EST 2 mg Given 11/11/2023 1:25 AM EST 2 mg Given 11/10/2023 10:06 PM EST 2 mg morphine sulfate inj 2 mg 2 mg, Intravenous, Q3H PRN Pain, Breakthrough, Starting on Laura 11/11/23 at 1916, Until Wed11/12/23 at 1439, Do not use with BAND SEWER (unless directed by Provider). May use if patient unable to take oxycodone. Given 11/11/2023 8:04 PM EST 2 mg mupirocin calcium (BACTROBAN for NASAL) 2 % ointment 0.5 g 0.5 g, Each Nostril, BID (.AM/PM), First dose on Wed11/09/23 at 2100, Last dose on Wed11/14/23 at 0900, For 5 days, For 1 g package: Apply 0.5 gram (1/2 syringe) in each nare for each dose. Discard unused portion. For 22 g multi-dose tube: Apply 0.5 gram (pea sized amount) in each nare for each dose. Given 11/10/2023 8:27 AM EST 0.5 g Given 11/09/2023 8:29 PM EST 0.5 g ondansetron (Zofran) inj 4 mg 4 mg, IV Push, Q6H PRN Other, May use for nausea or vomiting if patient unable to take oral ondansetron, Starting on Wed11/10/23 at 1538, Until Wed11/18/23 at 1836 ondansetron ODT (Zofran) tab 4 mg 4 mg, On Tongue, Q6H PRN Nausea, Vomiting, Starting on Wed11/10/23 at 1538, Until Laura 11/18/23 at 1836 oxyCODONE (Oxy IR) tab 5 mg 5 mg, Oral, Q6H PRN Pain, Moderate, Pain, Severe, Starting on Wed11/06/23 at 1629, Until Wed11/10/23 at 1544 Given 11/10/2023 8:36 AM EST 5 mg Given 11/09/2023 8:33 PM EST 5 mg Given 11/09/2023 1:59 PM EST 5 mg oxyCODONE (Oxy IR) tab 5 mg 5 mg, Oral, Q6H PRN Pain, Severe, Starting on Wed11/10/23 at 1539, Until Wed11/11/23 at 1521, Hold for somnolence or respiratory rate less than 10 Given 11/11/2023 10:12 AM EST 5 mg Given 11/10/2023 11:53 PM EST 5 mg Given 11/10/2023 6:26 PM EST 5 mg oxyCODONE (Oxy IR) tab 5 mg 5 mg, Oral, Q4H PRN Pain, Severe, Starting on Laura 11/11/23 at 1530, Until Wed11/12/23 at 1439, Hold for somnolence or respiratory rate less than 10 Given 11/12/2023 10:39 AM EST 5 mg Given 11/12/2023 5:47 AM EST 5 mg Given 11/11/2023 10:01 PM EST 5 mg oxygen GAS Inhalation, OXYGEN, First dose on Wed11/10/23 at 1600, Until Discontinued, Device/Managed by: Low Flow Device, Goal SPO2 (%): Other, Lower-limit SPO2 (%): 88, Upper-limit SPO2 (%): 92, Starting Device: Nasal Cannula, Initial Flow Rate (LPM): 6 LPM for NC; 10 LPM for NRB mask, Lowest Support: Nasal Cannula: Flow 0-6 LPM. Titrate up/down by 1 LPM., Higher Support: Non-Rebreather (NRB) Mask: Minimum of 10 LPM. Titrate to maintain bag inflation., Titration Interval: Q2 minutes and as needed., Notify Provider: Other, Notify Provider [other]: If SpO2 less than 88%, notify provider immediately, If patient is on Room Air in the PACU and SpO2 is greater than 88% but less than 92% place patient on Nasal Cannula If patient is on Room Air in the PACU and SpO2 is less than 88% place patient on NRB Mask Polyethylene Glycol 3350 (Miralax) oral powder 17 g 17 g (1 Packet), Oral, BID PRN Constipation, Starting on 11/13/23 at 1010, Until 11/14/23 at 0742, Mix in 8 oz of water, juice, soda, coffee, or tea. Given 11/13/2023 4:54 PM EST 17 g Polyethylene Glycol 3350 (Miralax) oral powder 17 g 17 g (1 Packet), Oral, BID (0900,2100), First dose (after last modification) on 11/14/23 at 0900, Until Discontinued, Mix in 8 oz of water, juice, soda, coffee, or tea. Given 11/18/2023 8:38 AM EST 17 g Given 11/17/2023 10:03 PM EST 17 g Given 11/17/2023 8:34 AM EST 17 g potassium and sodium phosphate (Phos-Nak) oral powder 2 Packet 2 Packet, Oral, ONCE, On Laura 11/11/23 at 1715, For 1 dose, Mix in 1/3 glass of water, stir well and administer promptly. 1 packet contains Phosphorus 250 mg (~8 mMoles) + potassium 280 mg (~7.125 mEq) + sodium 160mg (~7.125 mEq) Given 11/11/2023 6:52 PM EST 2 Packets potassium chloride 10 mEq in 100 mL ivpb LOCKED DOSE 10 mEq, Peripheral IV, Q1H, 6 doses, First dose on Wed11/10/23 at 1700, Last dose on Wed11/10/23 at 2200, Administer over 60 Minutes, Standard infusion duration is 60 minutes. New Bag 11/10/2023 11:57 PM EST 10 mEq 100 mL/hr New Bag 11/10/2023 9:21 PM EST 10 mEq 100 mL/hr Restarted 11/10/2023 9:15 PM EST 10 mEq/hr 100 mL/hr potassium chloride 10 mEq in 100 mL ivpb LOCKED DOSE 10 mEq, Peripheral IV, Q1H, 3 doses, First dose on Wed11/10/23 at 1645, Last dose on Wed11/10/23 at 1900, Administer over 60 Minutes, Standard infusion duration is 60 minutes., Post-op New Bag 11/10/2023 4:25 PM EST 10 mEq 100 mL/hr potassium chloride ER tab 40 mEq 40 mEq, Oral, Q4H, First dose on Wed11/10/23 at 1645, Last dose on Wed11/10/23 at 2000, For 2 doses, This med should NOT be Crushed or Chewed Given 11/10/2023 7:50 PM EST 40 mEq Given 11/10/2023 5:39 PM EST 40 mEq senna (Senokot) 1 Tablet 1 Tablet, Oral, BID (.AM/PM), First dose on Wed11/08/23 at 0900, Until Discontinued, On hold since Wed11/09/2023 at 0735 until manually unheld Given 11/08/2023 8:44 PM EST 1 Tablet Given 11/08/2023 8:12 AM EST 1 Tablet senna (Senokot) 1 Tablet 1 Tablet, Oral, BID (.AM/PM), First dose on Wed11/14/23 at 0900, Until Discontinued Given 11/16/2023 8:25 AM EST 1 Ta blet Given 11/15/2023 9:51 PM EST 1 Tablet Given 11/15/2023 9:22 AM EST 1 Tablet senna (Senokot) 2 Tablet 2 Tablet, Oral, BID (.AM/PM), First dose (after last modification) on Wed11/16/23 at 2100, Until Discontinued Given 11/18/2023 8:38 AM EST 2 Tablets Given 11/17/2023 10:04 PM EST 2 Tablets Given 11/17/2023 8:34 AM EST 2 Tablets sodium chloride 0.9 % flush/inj 3 mL 3 mL, IV Push, PRN Other, Line Patency, Starting on 11/06/23 at 0001, Until Laura 11/18/23 at 1836, Do not flush if lock, PICC, or central line not in place, IV infusing or unable to flush Given 11/08/2023 8:13 AM EST 3 mL documented in this encounter Active and Recently Administered Medications Times are shown in EST. Scheduled Medication Order 11/16/2023 11/17/2023 11/18/2023 Acetaminophen (Tylenol) tab 975 mg 975 mg, Oral, Q8H, First dose (after last reorder) on 11/15/23 at 2200, Last dose on 11/20/23 at 1400, For 5 days, Maximum 4 g acetaminophen/day. Avoid in patients with severe hepatic impairment or severe active liver disease. Use for 5 days. 05 (Given - Provider: Krysta Kenyon RN)1424 (Given - Provider: Adela Winslow RN)221 (Given - Provider: Arturo Hatfield RN) 05 (Given - Provider: Arturo Hatfield, NOA)1323 (Given - Provider: Mel Davis, NOA)2203 (Given - Provider: Krysta Kenyon RN) 0617 (Given - Provider: Krysta Kenyon RN)1252 (Given - Provider: Mel Davis, NOA) aspirin chew tab 81 mg 81 mg, Oral, Daily(AM), First dose on 11/13/23 at 0900, Until Discontinued 08 (Given - Provider: Adela Winslow RN) 0834 (Given - Provider: Mel Davis, NOA) 0838 (Given - Provider: Mel Davis, NOA) buPROPion extended release (SR) (Wellbutrin SR) tab 150 mg 150 mg, Oral, BID (.AM/PM), First dose on 11/06/23 at 0900, Until Discontinued, This med should NOT be Crushed or Chewed 08 (Given - Provider: Adela Winslow RN)221 (Given - Provider: Arturo Hatfield RN) 0834 (Given - Provider: Mel Davis, NOA)2204 (Given - Provider: Krysta Kenyon RN) 0838 (Given - Provider: Mel Davis, NOA) dexAMETHasone Sodium Phosphate (Decadron) 4 MG/ML inj 2 mg 2 mg, IV Push, Q12H, First dose on Wed11/19/23 at 2100, Last dose on Wed11/22/23 at 0900, For 3 days, PROTECT FROM LIGHT dexAMETHasone Sodium Phosphate (Decadron) 4 MG/ML inj 4 mg (COMPLETED) 4 mg, IV Push, Q8H, First dose on Wed11/13/23 at 1800, Last dose on Wed11/16/23 at 1400, For 3 days, PROTECT FROM LIGHT 0511 (Given - Provider: Krysta Kenyon RN)1425 (Given - Provider: Adela Winslow, NOA) dexAMETHasone Sodium Phosphate (Decadron) 4 MG/ML inj 4 mg 4 mg, IV Push, Q12H, First dose on Wed11/16/23 at 2200, Last dose on Wed11/19/23 at 0900, For 3 days, PROTECT FROM LIGHT 2218 (Given - Provider: Arturo Hatfield RN) 0841 (Given - Provider: Mel Davis, NOA)220 (Given - Provider: Krysta Kenyon RN) 0838 (Given - Provider: Mel Davis RN) doxycycline monohydrate 25 MG/5ML oral susp 50 mg 50 mg, Oral, [id number], First dose on Wed11/08/23 at 1015, Until Discontinued 08 (Given - Provider: Adela Winslow RN) 0834 (Given - Provider: Mel Davis, NOA) 0843 (Given - Provider: Mel Davis, NOA) Famotidine (Pepcid) tab 20 mg 20 mg, Oral, Q12H, First dose on Wed11/11/23 at 0900, Until Discontinued 0825 (Given - Provider: Adela Winslow, NOA)221 (Given - Provider: Arturo Hatfield RN) 0834 (Given - Provider: Mel Davis RN)2204 (Given - Provider: Krysta Kenyon RN) 0838 (Given - Provider: Mel Davis, NOA) hEParin inj 7,500 Units 7,500 Units, Subcutaneous, Q8H, First dose on Wed11/11/23 at 1400, Until Discontinued 0511 (Given - Provider: Krysta Kenyon RN)1425 (Given - Provider: Adela Winslow RN)2218 (Given - Provider: Arturo Hatfield RN) 0519 (Given - Provider: Arturo Hatfield RN)1323 (Given - Provider: Mel Davis RN)2204 (Given - Provider: Krysta Kenyon RN) 0617 (Given - Provider: Krysta Kenyon RN)1400 (Not Given - Provider: Mel Davis RN - Reason: Parameter(s) Not Met) levETIRAcetam (Keppra) tab 500 mg 500 mg, Oral, BID (.AM/PM), First dose on Wed11/10/23 at 2100, Until Discontinued 0825 (Given - Provider: Adela Winslow RN)2216 (Given - Provider: Arturo Hatfield RN) 0834 (Given - Provider: Mel Davis RN)220 (Given - Provider: Krysta Kenyon RN) 0838 (Given - Provider: Mel Davis RN) metoprolol succinate XL (toPROL XL) tab 25 mg 25 mg, Oral, Daily(AM), First dose on Wed11/06/23 at 0900, Until Discontinued, Hold for HR less than 60 or SBP below 100 and notify service if dose is held This med should NOT be Crushed or Chewed. 0825 (Given - Provider: Adela Winslow RN) 0834 (Given - Provider: Mel Davis, NOA) 0838 (Given - Provider: Mel Davis, NOA) morphine Sulfate ER (Ms Contin) tab 15 mg 15 mg, Oral, Q8H, First dose (after last modification) on Wed11/15/23 at 1530, Until Discontinued, DO NOT CRUSH 0511 (Given - Provider: Krysta Kenyon RN)1425 (Given - Provider: Adela Winslow RN)2216 (Given - Provider: Arturo Hatfield RN) 0519 (Given - Provider: Arturo Hatfield, NOA)1323 (Given - Provider: Mel Davis, NOA)2204 (Given - Provider: Krysta Kenyon RN) 0617 (Given - Provider: Krysta Kenyon RN)1252 (Given - Provider: Mel Davis RN) oxygen GAS Inhalation, OXYGEN, First dose on Wed11/10/23 at 1600, Until Discontinued, Device/Managed by: Low Flow Device, Goal SPO2 (%): Other, Lower-limit SPO2 (%): 88, Upper-limit SPO2 (%): 92, Starting Device: Nasal Cannula, Initial Flow Rate (LPM): 6 LPM for NC; 10 LPM for NRB mask, Lowest Support: Nasal Cannula: Flow 0-6 LPM. Titrate up/down by 1 LPM., Higher Support: Non-Rebreather (NRB) Mask: Minimum of 10 LPM. Titrate to maintain bag inflation., Titration Interval: Q2 minutes and as needed., Notify Provider: Other, Notify Provider [other]: If SpO2 less than 88%, notify provider immediately, If patient is on Room Air in the PACU and SpO2 is greater than 88% but less than 92% place patient on Nasal Cannula If patient is on Room Air in the PACU and SpO2 is less than 88% place patient on NRB Mask 0000 (Oxygen Off - Provider: Krysta Kenyon RN)0827 (Oxygen Off - Provider: Adela Winslow RN)1600 (Oxygen Off - Provider: Adela Winslow RN) 0000 (Oxygen Off - Provider: Arturo Hatfield RN)0800 (Oxygen Off - Provider: Mel Davis RN)1600 (Oxygen Off - Provider: Mel Davis RN) 0000 (Oxygen Off - Provider: Krysta Kenyon RN)0800 (Oxygen Off - Provider: Mel Davis RN)1600 (Oxygen Off - Provider: Mel Davis RN) Polyethylene Glycol 3350 (Miralax) oral powder 17 g 17 g (1 Packet), Oral, BID (0900,2100), First dose (after last modification) on 11/14/23 at 0900, Until Discontinued, Mix in 8 oz of water, juice, soda, coffee, or tea. 0825 (Given - Provider: Adela Winslow RN)2218 (Given - Provider: Arturo Hatfield RN) 0834 (Given - Provider: Mel Davis RN)220 (Given - Provider: Krysta Kenyon RN) 0838 (Given - Provider: Mel Davis, NOA) senna (Senokot) 1 Tablet (CANCELED) 1 Tablet, Oral, BID (.AM/PM), First dose on Sun /25/24 at 0900, Until Discontinued 0825 (Given - Provider: Adela Winslow, NOA) senna (Senokot) 2 Tablet 2 Tablet, Oral, BID (.AM/PM), First dose (after last modification) on Wed11/16/23 at 2100, Until Discontinued 2215 (Given - Provider: Arturo Hatfield RN) 0834 (Given - Provider: Mel Davis, NOA)220 (Given - Provider: Krysta Kenyon RN) 0838 (Given - Provider: Mel Davis, NOA) PRN Medication Order 11/16/2023 11/17/2023 11/18/2023 house antacid (Mi-Acid II) oral susp 15 mL 15 mL, Oral, Q4H PRN Indigestion, Starting on 11/06/23 at 0002, Until Laura 11/18/23 at 1836, SHAKE WELL melatonin tab 3 mg 3 mg, Oral, HS PRN Insomnia, Starting on 11/06/23 at 0002, Until Laura 11/18/23 at 1836 2204 (Given - Provider: Krysta Kenyon RN) morphine sulfate 10 MG/5 ML oral soln 5 mg 5 mg, Oral, Q4H PRN Pain, Moderate, Pain, Severe, Pain, Breakthrough, Starting on Wed11/12/23 at 1438, Until Laura 11/18/23 at 1836, Note concentartion Prior to Administration ! 0140 (Given - Provider: Yessy Lawler LPN)1957 (Given - Provider: Arturo Hatfield RN) 0230 (Given - Provider: Arturo Hatfield RN)0841 (Given - Provider: Mel Davis, NOA)1456 (Given - Provider: Mel Davis, NOA)1904 (Given - Provider: Mel Davis RN) 0843 (Given - Provider: Mel Davis RN) naloxone (Narcan) 0.4 MG/ML inj 0.08 mg 0.08 mg, IV Push, PRN Other, If patient is over sedated or Respiratory Rate less than 8, Starting on Wed11/10/23 at 1544, Until Laura 11/18/23 at 1836, Call provider if patient is over sedated or Respiratory Rate is less than 8 ondansetron (Zofran) inj 4 mg(Linked Group 1) 4 mg, IV Push, Q6H PRN Other, May use for nausea or vomiting if patient unable to take oral ondansetron, Starting on Wed11/10/23 at 1538, Until Laura 11/18/23 at 1836 ondansetron ODT (Zofran) tab 4 mg(Linked Group 1) 4 mg, On Tongue, Q6H PRN Nausea, Vomiting, Starting on Wed11/10/23 at 1538, Until Laura 11/18/23 at 1836 sodium chloride 0.9 % flush/inj 3 mL 3 mL, IV Push, PRN Other, Line Patency, Starting on 11/06/23 at 0001, Until Laura 11/18/23 at 1836, Do not flush if lock, PICC, or central line not in place, IV infusing or unable to flush Linked Groups Order Group 1: ondansetron ODT (Zofran) tab 4 mgJump to med 4 mg, On Tongue, Q6H PRN Nausea, Vomiting, Starting on Wed11/10/23 at 1538, Until Laura 11/18/23 at 1836 Or ondansetron (Zofran) inj 4 mgJump to med 4 mg, IV Push, Q6H PRN Other, May use for nausea or vomiting if patient unable to take oral ondansetron, Starting on Wed11/10/23 at 1538, Until Laura 11/18/23 at 1836 documented in this encounter Advance Directives Latest [...] the patient have Health Care Power of Outdoor Adventure Instructor? No Code Status History Code Status Date [...] Advance Directives occurred with: Patient Care Teams Paint Spray Tender Relationship Specialty Start Date End Date Nicole Gramajo DO [address] [facility] [place] [id number] PCP - General Family Medicine 01/04/23 documented as of this encounter
--- OUTSIDE RECORDS SUMMARY | 2024-05-06 15:40 | External Medical Summary | Summary of Care ---
Author Name Unknown Organization [facility] Address [address] [place] [address] Phone [phone] Care Team Providers Care Boiler Reliner Name Role Phone Nicole Gama DO Primary Care Provider Reason for Visit * Reason Onset Date Comments Hospital Follow-Up 11/18/2023 3 day pcp hd/ fu - appt needed - no times thanks Adela Encounter Details Date Type Department Care Team (Late st Contact Info) Description 11/18/2023 Telephone [facility] [address] [place] [address] Nicole Gama DO [address] [place] [address] Hospital Follow-Up (3 day pcp hd/fu - appt... Allergies No known active allergiesdocumented as of this encounter (statuses as of 11/18/2023) Medications Medication Sig Dispensed Refills Start Date End Date Status Sennosides 8.6 MG Oral Tablet (Senokot) Take [...] suspected opioid overdose. Seek medical help immediately. [email or web address] 1 mL 3 11/18/2023 Active Ondansetron 4 [...] suspected opioid overdose. Seek immediate medical attention. 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 90 Tablet 0 06/24/2023 Suspended Additional Information Doxycycline Monohydrate 50 MG Oral CapsuleIndications: Rosacea Take 1 capsule by mouth once daily 90 Capsule 1 06/24/2023 Suspended Additional Information Lisinopril 20 MG Oral Tablet (Prinivil)Indicatio ns:HTN, goal below 140/90 Take 1 Tablet by mouth in the morning. 90 Tablet 3 11/04/2023 Suspended Additional Information CPAP every night at bedtime. 0 Suspended documented as of this encounter (statuses as of 11/18/2023) Active Problems Problem Noted Date Diagnosed Date [...] as of this encounter (statuses as of 11/18/2023) Resolved Problems Problem Noted Date Diagnosed Date [...] as of this encounter (statuses as of 11/18/2023) Immunizations Name Administration Dates Next Due COVID-19 [...] Telephone Encounter - Donna Almonte OSA - 11/18/2023 12:48 PM EST Scheduled. 11/18/2023 * Telephone Encounter - Irma Marques LPN - 11/18/2023 11:17 AM EST Looks like pt needs scheduled for hospital follow up * Telephone Encounter - Adela Stallings OSA - 11/18/2023 10:43 AM EST Order RETURN APPT [IP355] (Order [id number]) Juancarlos Shailesh Bodlen 11/05/2023 10:12 PM Admission Description: 58 year old male Department: [facility] Message Patient Name: JUANCARLOS BOLDEN([id number]) Sex: Male : 1965 PCP: NICOLE GAMA Center: [facility] Types of orders made on 11/18/2023: IP Post Discharge , Lab, Medications Order Date:11/18/2023 Ordering User:FROYLAN RONDON [[id number]] Attending Provider:Jann Phipps MD [[id number]] Authorizing Provider: Froylan Rondon DO [[id number]] Department:[facility][[id number]] Order Specific Information Order: RETURN APPT [CUSTOM: IP355] Order #: [id number]: 1 Priority: Routine Class: Nursing Unit Department (Single Entry) -> Family Practice Appt Needed Within: (Specify # of Days, Weeks, Months) -> 3 Days Provider -> NICOLE GAMA Released on: 11/18/2023 10:3 8 AM Priority: Routine Class: Nursing Unit Department (Single Entry) -> Family Practice Appt Needed Within: (Specify # of Days, Weeks, Months) -> 3 Days Provider -> NICOLE GAMA Released on: 11/18/2023 10:38 AM Order Information Date and Time De documented in this encounter Plan of Treatment Upcoming Encounters Date Type Department Care Team (Late st Contact Info) Description 11/22/2023 10:45 AM EST [facility] [address] [place] [address] Clinic, Brain Tumor Multidisciplinary [address] [place] [address] 11/22/2023 2:00 PM EST Office Visit [facility] [address] [place] [phone] Em Haq MD [address], [place] [phone] 03/20/2024 10:50 AM EDT Office Visit [facility] [address] [place] [phone] Nicole Gama, [address] [place] [address] 09/29/2024 1:00 PM EST Office Visit Neurology [facility] [address] [place] [address] Mariama Hinojosa, DO [address], [place] [phone] Scheduled Procedures Name Priority Associated Diagnoses Date/Ti [...] the patient have Health Care Power of Char Conveyor Tender? No Code Status History Code Status [...] Advance Directives occurred with: Patient Care Teams Boiler Reliner Relationship Specialty Start Date End Date Nicole Gama DO [address] [place] [address] PCP - General Family Medicine 01/04/23 documented as of this encounter
--- OUTSIDE RECORDS SUMMARY | 2024-05-06 15:40 | External Medical Summary ---
Author Name Unknown Address Unknown Organization K01:[place] [facility] [place] [facility] [place] [address] Laboratory Report Ordering Provider Test Date Status MANOJ HORTON 11/17/2023 06:27:00 Final Observation Date Value Abnormality Reference (Units ) Status WBC, Total 11/17/2023 06:27:00 15.15 Above high normal 4.00-10.80 (K/uL) Final RBC 11/17/2023 06:27:00 4.47 4.50-5.25 (M/uL) Final Hemoglobin 11/17/2023 06:27:00 13.8 Below low normal 14.0-16.8 (g/dL) Final HCT 11/17/2023 06:27:00 42.1 40.0-48.4 (%) Final MCV 11/17/2023 06:27:00 94.2 82.0-99.5 (fL) Final MCH 11/17/2023 06:27:00 30.9 27.0-34.0 (pg) Final MCHC 11/17/2023 06:27:00 32.8 32.0-36.0 (g/dL) Final RDW 11/17/2023 06:27:00 12.6 11.5-15.5 (%) Final Platelets 11/17/2023 06:27:00 312 140-400 (K/uL) Final MPV 11/17/2023 06:27:00 9.6 6.6-11.1 (fL) Final Nucleated erythrocytes/100 leukocytes [Ratio] in Blood by Automated count 11/17/2023 06:27:00 0 <=0 (/100 WBCs) Final Performing Location [facility] [place] [address] [place] [address]
--- OUTSIDE RECORDS SUMMARY | 2024-05-06 15:40 | External Medical Summary ---
Author Name Unknown Address Unknown Organization K01:[facility]ORY [facility] [place] [address] [place] [address] Laboratory Report Ordering Provider Test Date Status MANOJ HORTON 11/16/2023 08:04:00 Final Warfarin Therapy
INR: 2 .0-3.0 conventional anticoagulation
INR: 2.5- 3.5 high intensity anticoagulation Observation Date Value Abnormality Reference (Units ) Status PT 11/16/2023 08:04:00 14.9 11.6-15.2 (seconds) Final INR 11/16/2023 08:04:00 1.2 0.8-1.2 Final Performing Location [facility] [place] [address] [place] [address]
--- OUTSIDE RECORDS SUMMARY | 2024-05-06 15:40 | External Medical Summary ---
Author Name Unknown Address Unknown Organization K01:[facility] - [address] [place] [address] Laboratory Report Ordering Provider Test Date Status MANOJ HORTON 11/16/2023 08:04:00 Final Observation Date Value Abnormality Reference (Units ) Status Magnesium 11/16/2023 08:04:00 2.2 1.5-2.6 (m g/dL) Final Performing Location [facility] - [address] [place] [address]
--- OUTSIDE RECORDS SUMMARY | 2024-05-06 15:40 | External Medical Summary ---
Author Name Unknown Address Unknown Organization K01:LABORATORY [facility] [place] - [address] [place] [address] Laboratory Report Ordering Provider Test Date Status MANOJ HORTON 11/17/2023 06:27:00 Final Warfarin Therapy
INR: 2 .0-3.0 conventional anticoagulation
INR: 2.5- 3.5 high intensity anticoagulation Observation Date Value Abnormality Reference (Units ) Status PT 11/17/2023 06:27:00 14.5 11.6-15.2 (seconds) Final INR 11/17/2023 06:27:00 1.1 0.8-1.2 Final Performing Location LABORATORY [facility] [place] - [address] [place] [address]
--- OUTSIDE RECORDS SUMMARY | 2024-05-06 15:40 | External Medical Summary ---
Author Name Unknown Address Unknown Organization K01:[facility] - [address] [place] [address] Laboratory Report Ordering Provider Test Date Status MANOJ HORTON 11/18/2023 06:04:00 Final Observation Date Value Abnormality Reference (Units ) Status Magnesium 11/18/2023 06:04:00 2.2 1.5-2.6 (m g/dL) Final Performing Location [facility] - [address] [place] [address]
--- OUTSIDE RECORDS SUMMARY | 2024-05-06 15:40 | External Medical Summary ---
Author Name Unknown Address Unknown Organization K01:[facility] - [address] [place] [address] Laboratory Report Ordering Provider Test Date Status MANOJ HORTON 11/17/2023 06:27:00 Final Observation Date Value Abnormality Reference (Units ) Status Phosphate 11/17/2023 06:27:00 4.2 2.5-4.8 (m g/dL) Final Performing Location LAB[facility] - [address] [place] [address]
--- OUTSIDE RECORDS SUMMARY | 2024-05-06 15:40 | External Medical Summary ---
Author Name Unknown Address Unknown Organization K01:[place] [facility] [place] [address] [place] [address] Laboratory Report Ordering Provider Test Date Status MANOJ HORTON 11/18/2023 06:04:00 Final Warfarin Therapy
INR: 2 .0-3.0 conventional anticoagulation
INR: 2.5- 3.5 high intensity anticoagulation Observation Date Value Abnormality Reference (Units ) Status PT 11/18/2023 06:04:00 14.8 11.6-15.2 (seconds) Final INR 11/18/2023 06:04:00 1.2 0.8-1.2 Final Performing Location [facility] [facility] [place] [address] [place] [address]
--- OUTSIDE RECORDS SUMMARY | 2024-05-06 15:40 | External Medical Summary ---
Author Name Unknown Address Unknown Organization K01:[place] [facility] [place] [facility] [address] [place] [address] Laboratory Report Ordering Provider Test Date Status MANOJ HORTON 11/18/2023 06:04:00 Final Observation Date Value Abnormality Reference (Units ) Status WBC, Total 11/18/2023 06:04:00 12.61 Above high normal 4.00-10.80 (K/uL) Final RBC 11/18/2023 06:04:00 4.42 4.50-5.25 (M/uL) Final Hemoglobin 11/18/2023 06:04:00 13.9 Below low normal 14.0-16.8 (g/dL) Final HCT 11/18/2023 06:04:00 41.2 40.0-48.4 (%) Final MCV 11/18/2023 06:04:00 93.2 82.0-99.5 (fL) Final MCH 11/18/2023 06:04:00 31.4 27.0-34.0 (pg) Final MCHC 11/18/2023 06:04:00 33.7 32.0-36.0 (g/dL) Final RDW 11/18/2023 06:04:00 12.7 11.5-15.5 (%) Final Platelets 11/18/2023 06:04:00 283 140-400 (K/uL) Final MPV 11/18/2023 06:04:00 9.4 6.6-11.1 (fL) Final Nucleated erythrocytes/100 leukocytes [Ratio] in Blood by Automated count 11/18/2023 06:04:00 0 <=0 (/100 WBCs) Final Performing Location [facility] [place] [address] [place] [address]
--- OUTSIDE RECORDS SUMMARY | 2024-05-06 15:40 | External Medical Summary | Summary of Care ---
Author Name Unknown Organization [facility] Address [address] [facility] [place] [address] Phone [phone] Care Team Providers Care Surgical Endoscopist Name Role Phone Nicole Gramajo DO Primary Care Provider Reason for Visit * Reason Onset Date Comments Hospital Follow-Up 11/18/2023 3 day pcp hd/ fu - appt needed - no times thanks Adela Encounter Details Date Type Department Care Team (Late st Contact Info) Description 11/18/2023 Telephone [facility] [address] [place] [address] Nicole Gramajo DO [address] [place] [address] Hospital Follow-Up (3 day pcp [...] suspected opioid overdose. Seek medical help immediately. [email or web address] 1 mL 3 11/18/2023 Active Ondansetron 4 [...] suspected opioid overdose. Seek immediate medical attention. [email or web address]?v=[email or web address] 1 Each 3 11/18/2023 Active aspirin 81 [...] below 140/90,Ischemic cardiomyopathy,Aristeo nary artery disease involving [place] coronary artery of [place] heart without angina pectoris,Dyslipidem ia, goal LDL [...] Diagnosed Date Resolved Date Bradycardia, sinus 01/21/2023 02/16/202 4 Body mass index (BMI) of 45. [...] mRNA, LNP-s, No Pre serve, 2-Dose Series (Anesiva) 12/02/2020,10/28/2020 Pneumococcal Polysaccharide PPV23 (Pneumovax) Seasonal Influenza, [...] AM EST Order RETURN APPT [IP355] (Order [id number]) Juancarlos Lujan 11/05/2023 10:12 PM Admission Description: 58 year old male Department: AP4 IP [facility] [place] Message Patient Name: JUANCARLOS LUJAN([id number]) Sex: Male : 1965 PCP: NICOLE GRAMAJO Center: [facility] Types of orders made on 11/18/2023: IP Post Discharge , Lab, Medications Order Date:11/18/2023 Ordering User:CARRIE RONDON [[id number]] Attending Provider:Jann Phipps MD [[id number]] Authorizing Provider: Carrie Rondon DO [[id number]] Department:4 [facility][[id number]] Order Specific Information Order: RETURN APPT [CUSTOM: IP355] Order #: [id number]: [id number] Priority: Routine Class: Nursing Unit Department (Single Entry) -> Family Practice Appt Needed Within: (Specify # of Days, Weeks, Months) -> 3 Days Provider -> NICOLE GRAMAJO Released on: 11/18/2023 10:3 8 AM Priority: Routine Class: Nursing Unit Department (Single Entry) -> Family Practice Appt Needed Within: (Specify # of Days, Weeks, Months) -> 3 Days Provider -> NICOLE GRAMAJO Released on: 11/18/2023 10:38 AM Order Information Date and Time De documented in this encounter Plan of Treatment Upcoming Encounters Date Type Department Care Team (Late st Contact Info) Description 11/22/2023 10:45 AM EST [facility] [address] [place] [address] Clinic, Brain Tumor Multidisciplinary [address] [place] [address] 03/20/2024 10:50 AM EDT Office Visit [address] [phone] Nicole Gramajo [address] [place] [address] 09/29/2024 1:00 PM EST Office Visit Neurology [facility] [address] [facility], [place] [address] Mariama Hinojosa [address] [place] [address] Scheduled Procedures Name Priority Associated Diagnoses Date/Ti me COLONOSCOPY FLEXIBLE PROXIMA L DIAGNOSTIC Recall Encounter for screening colonoscopy Health Maintenance Due Date Last Done Comments Depression, Most Recent Scor e >= 10 (will fire each visit until score < 10) 01/02/2023 01/01/2023 COVID-19 Vaccine (2022- 4 season) 2023 06/08/2021, [...] the patient have Health Care Power of Bread Wrapper? No Code Status History Code Status Date [...] Advance Directives occurred with: Patient Care Teams Surgical Endoscopist Relationship Specialty Start Date End Date Nicole Gramajo DO [address] [place] [address] PCP - General Family Medicine 01/04/23 documented as of this encounter
[2024-05-06] MEDS: MoRPHine SULFATE 4 MG/ML 1 ML CARP\\VIAL IV PRN (15:41)
[2024-05-06] MEDS: ONDANSETRON INJ 2 MG/ML 2 ML VIAL IV STA (15:41)
[2024-05-06] MEDS: SODIUM CHLORIDE 0.9% 500 ML IV STA (15:41)
--- OUTSIDE RECORDS SUMMARY | 2024-05-06 15:41 | External Medical Summary ---
Author Name Unknown Address Unknown Organization K01:[place] [facility] [place] [facility] [address] [place] [address] Laboratory Report Ordering Provider Test Date Status SEAMUS TAYLOR 11/09/2023 06:42:00 Final Observation Date Value Abnormality Reference (Units ) Status BUN 11/09/2023 06:42:00 19 6-20 (mg/dL) Final Creatinine 11/09/2023 06:42:00 1.3 Above high normal 0.6-1.2 (mg/dL) Final Glomerular filtration rate/1.73 sq M.predicted [Volume Rate/Area] in Serum, Plasma or Blood by Creatinine-based formula (CKD-EPI) 11/09/2023 06:42:00 66 >=60 (mL/min) Final eGFR is calculated based on the CKD-EPI 2020 equation SODIUM 11/09/2023 06:42:00 137 135-146 (m mol/L) Final Potassium 11/09/2023 06:42:00 4.7 3.5-5.1 (m mol/L) Final Cl 11/09/2023 06:42:00 103 98-107 (mm ol/L) Final CO2 11/09/2023 06:42:00 25 22-32 (mmo l/L) Final Anion gap 11/09/2023 06:42:00 9 7-15 (mmol /L) Final Glucose 11/09/2023 06:42:00 105 70-120 (mg /dL) Final Calcium 11/09/2023 06:42:00 9.1 8.4-10.2 ( mg/dL) Final Performing Location [facility] [facility] [place] [address] [place] [address]
--- OUTSIDE RECORDS SUMMARY | 2024-05-06 15:41 | External Medical Summary ---
Author Name Unknown Address Unknown Organization K01:[facility]ORY [facility] - [address] [place] [address] Laboratory Report Ordering Provider Test Date Status MANOJ HORTON 11/15/2023 07:20:00 Final Observation Date Value Abnormality Reference (Units ) Status Magnesium 11/15/2023 07:20:00 2.2 1.5-2.6 (m g/dL) Final Performing Location LAB[facility] - [address] [place] [address]
--- OUTSIDE RECORDS SUMMARY | 2024-05-06 15:41 | External Medical Summary ---
Author Name Unknown Address Unknown Organization K01:LAB[facility] - [address] [place] [address] Laboratory Report Ordering Provider Test Date Status MANOJ HORTON 11/11/2023 06:38:00 Final Observation Date Value Abnormality Reference (Units ) Status Magnesium 11/11/2023 06:38:00 2.3 1.5-2.6 (m g/dL) Final Performing Location LAB[facility]ORY [facility] - [address] [place] [address]
--- OUTSIDE RECORDS SUMMARY | 2024-05-06 15:41 | External Medical Summary ---
Author Name Unknown Address Unknown Organization K01:[facility] - [address] [place] [address] Laboratory Report Ordering Provider Test Date Status SEAMUS TAYLOR 11/09/2023 06:42:00 Final Observation Date Value Abnormality Reference (Units ) Status Magnesium 11/09/2023 06:42:00 2.1 1.5-2.6 (m g/dL) Final Performing Location LAB[facility] - [address] [place] [address]
--- OUTSIDE RECORDS SUMMARY | 2024-05-06 15:41 | External Medical Summary ---
Author Name Unknown Address Unknown Organization K01:LABORATORY [facility] [place] - [facility] [address] [facility] [address] [facility] [address] Laboratory Report Ordering Provider Test Date Status MANOJ HORTON 11/11/2023 06:38:00 Final Observation Date Value Abnormality Reference (Units ) Status BUN 11/11/2023 06:38:00 15 6-20 (mg/dL) Final Creatinine 11/11/2023 06:38:00 0.8 0.6-1.2 (mg/dL) Final Glomerular filtration rate/1.73 sq M.predicted [Volume Rate/Area] in Serum, Plasma or Blood by Creatinine-based formula (CKD-EPI) 11/11/2023 06:38:00 >90 >=60 (mL/min) Final eGFR is calculated based on the CKD-EPI 2020 equation SODIUM 11/11/2023 06:38:00 135 135-146 (m mol/L) Final Potassium 11/11/2023 06:38:00 4.3 3.5-5.1 (m mol/L) Final Cl 11/11/2023 06:38:00 103 98-107 (mm ol/L) Final CO2 11/11/2023 06:38:00 20 Below low normal 22- 32 (mmol/L) Final Anion gap 11/11/2023 06:38:00 12 7-15 (mmol /L) Final Glucose 11/11/2023 06:38:00 138 Above high normal 70 -120 (mg/dL) Final Calcium 11/11/2023 06:38:00 8.7 8.4-10.2 ( mg/dL) Final Performing Location LABORATORY [facility] [place] - [address] [place] [address]
--- OUTSIDE RECORDS SUMMARY | 2024-05-06 15:41 | External Medical Summary ---
Author Name Unknown Address Unknown Organization K01:LABORATORY [facility] [place] - [facility] [address] [place] [address] Laboratory Report Ordering Provider Test Date Status MANOJ HORTON 11/15/2023 07:20:00 Final Warfarin Therapy
INR: 2 .0-3.0 conventional anticoagulation
INR: 2.5- 3.5 high intensity anticoagulation Observation Date Value Abnormality Reference (Units ) Status PT 11/15/2023 07:20:00 15.3 Above high normal 11 .6-15.2 (seconds) Final INR 11/15/2023 07:20:00 1.2 0.8-1.2 Final Performing Location LABORATORY [facility] [place] - [facility] [place] [address]
--- OUTSIDE RECORDS SUMMARY | 2024-05-06 15:41 | External Medical Summary ---
Author Name Unknown Address Unknown Organization K01:LABORATORY [facility] - [facility] [address] [facility] [address] [place] [address] Laboratory Report Ordering Provider Test Date Status MANOJ HORTON 11/14/2023 07:15:00 Final Observation Date Value Abnormality Reference (Units ) Status BUN 11/14/2023 07:15:00 24 Above high normal 6-20 (mg/dL) Final Creatinine 11/14/2023 07:15:00 1.1 0.6-1.2 (mg/dL) Final Glomerular filtration rate/1.73 sq M.predicted [Volume Rate/Area] in Serum, Plasma or Blood by Creatinine-based formula (CKD-EPI) 11/14/2023 07:15:00 79 >=60 (mL/min) Final eGFR is calculated based on the CKD-EPI 2020 equation SODIUM 11/14/2023 07:15:00 138 135-146 (m mol/L) Final Potassium 11/14/2023 07:15:00 4.7 3.5-5.1 (m mol/L) Final Cl 11/14/2023 07:15:00 103 98-107 (mm ol/L) Final CO2 11/14/2023 07:15:00 26 22-32 (mmo l/L) Final Anion gap 11/14/2023 07:15:00 9 7-15 (mmol /L) Final Glucose 11/14/2023 07:15:00 103 70-120 (mg /dL) Final Calcium 11/14/2023 07:15:00 8.9 8.4-10.2 ( mg/dL) Final Performing Location LABORATORY [facility] - [address] [place] [address]
--- OUTSIDE RECORDS SUMMARY | 2024-05-06 15:41 | External Medical Summary ---
Author Name Unknown Address Unknown Organization K01:LABORATORY [facility] [place] - [address] [place] [address] Laboratory Report Ordering Provider Test Date Status MANOJ HORTON 11/12/2023 07:07:00 Final Observation Date Value Abnormality Reference (Units ) Status BUN 11/12/2023 07:07:00 19 6-20 (mg/dL) Final Creatinine 11/12/2023 07:07:00 0.9 0.6-1.2 (mg/dL) Final Glomerular filtration rate/1.73 sq M.predicted [Volume Rate/Area] in Serum, Plasma or Blood by Creatinine-based formula (CKD-EPI) 11/12/2023 07:07:00 >90 >=60 (mL/min) Final eGFR is calculated based on the CKD-EPI 2020 equation SODIUM 11/12/2023 07:07:00 139 135-146 (m mol/L) Final Potassium 11/12/2023 07:07:00 4.3 3.5-5.1 (m mol/L) Final Cl 11/12/2023 07:07:00 105 98-107 (mm ol/L) Final CO2 11/12/2023 07:07:00 23 22-32 (mmo l/L) Final Anion gap 11/12/2023 07:07:00 11 7-15 (mmol /L) Final Glucose 11/12/2023 07:07:00 125 Above high normal 70 -120 (mg/dL) Final Calcium 11/12/2023 07:07:00 8.7 8.4-10.2 ( mg/dL) Final Performing Location LABORATORY [facility] [place] - [address] [place] [address]
--- OUTSIDE RECORDS SUMMARY | 2024-05-06 15:41 | External Medical Summary | Summary of Care ---
Author Name Unknown Organization [facility] Address [address] [place] [address] Phone [phone] Care Team Providers Care News Editor Name Role Phone Luz Maria Gama DO Primary Care Provider Encounter Details Date Type Department Care Team (Late st Contact Info) Description 11/15/2023 Orders Only Outcomes Research Department [address] [place] [address] Diana Wan CHRA [facility] Other*[id number] Allergies No known active allergiesdocumented as of this encounter (statuses as of 11/15/2023) Medications Medication Sig Dispensed Refills Start Date [...] below 140/90,Ischemic cardiomyopathy,Aristeo nary artery disease involving gambell coronary artery of gambell heart without angina pectoris,Dyslipidem ia, goal LDL [...] as of this encounter (statuses as of 11/15/2023) Active Problems Problem Noted Date Diagnosed Date [...] as of this encounter (statuses as of 11/15/2023) Resolved Problems Problem Noted Date Diagnosed Date Resolved Date Bradycardia, sinus 01/21/2023 02/16/202 4 Body mass index (BMI) of 45. 0 to 49.9 in adult 07/29/2020 11/04/2020 Overview: Per Obesity protocol - Body mass index (BMI) of 40. 0 to 44.9 in adult 06/21/2017 08/01/2020 Overview: Per Obesity protocol #1 Testicular hypogonadism 09/24/201504/22 HTN (hypertension) 08/17/2015 6 Overview: Per HTN Protocol NSTEMI (non-ST elevated myoc ardial infarction) 08/16/2015 08/17/2015 documented as of this encounter (statuses as of 11/15/2023) Immunizations Name Administration Dates Next Due COVID-19 [...] Team (Late st Contact Info) Description 11/18/2023 12:40 PM EST Nutrition Services Nutrition & Weight Management, [place] [address] [place] [address] Toya Rangel RDN [address] [place] [address] 11/22/2023 10:45 AM EST Office Visit Neurosurgery, [place] [address] [place] [address] Clinic, Brain Tumor Multidisciplinary [address] [place] [address] 03/20/2024 10:50 AM EDT Office Visit [place] [address] [place] [address] Luz Maria Gama, [address] [place] [address] 09/29/2024 1:00 PM EST Office Visit Neurology Garry Jaffe [place] [address] [place] [address] Mariama Hinojosa Krysta, DO [address] [facility] [place] [address] Scheduled Orders Name Type Priority Associated Diagnoses Orde r Schedule MYCODE SUBSEQUENT ADULT Lab Routine My[facility] Research Other*[id number] Every 6 Months for 2 Occurrences starting 11/15/2023 until 12/04/2024 Scheduled Procedures Name Priority Associated Diagnoses Date/Ti me COLONOSCOPY FLEXIBLE PROXIMA L DIAGNOSTIC Recall Encounter for screening colonoscopy Health Maintenance Due Date Last Done Comments Hepatitis B (1 of 3 - 19+ 3-dose series) 1984 Cologuard 2010 Fecal Occult Blood Test 2010 Sigmoidoscopy 2010 LUNG CANCER SCREENING - USE SMARTSET 67846 2015 Pneumococcal Vaccine: Pediatrics (0 to 5 Years) and At-Risk Patients (6 to 64 Years) (2 of 2 - PCV) 06/16/2018 06/16/2017 Depression, Most Recent Score >= 10 (will fire each visit until score < 10) 01/02/2023 01/01/2023 COVID-19 Vaccine (2022- season) 2023 06/08/2021, 12/02/2020, 10/28/2020 Influenza Vaccine (FLU shot) (#1) 2023 07/03/2020, 06/30/2018 Colonoscopy 09/01/2026 09/01/2016, 09/01/2016 Colorectal Cancer Screening 09/01/2026 Diabetes Screening 11/15/2026 11/15/2023, 0 11/14/2023, 11/13/2023, Additional history exists DTaP,Tdap,and Td Vaccines (2 [...] this encounter Visit Diagnoses Diagnosis My[facility] Research Other*[id number] documented in this encounter Advance Directives Latest [...] the patient have Health Care Power of Gut Dropper? No Code Status History Code Status Date [...] Advance Directives occurred with: Patient Care Teams News Editor Relationship Specialty Start Date End Date Luz Maria Gama DO [address] [place] [address] PCP - General Family Medicine 01/04/23 documented as of this encounter
--- OUTSIDE RECORDS SUMMARY | 2024-05-06 15:41 | External Medical Summary ---
Author Name Unknown Address Unknown Organization [id number]:[facility] [address] [place] [address] Laboratory Report Ordering Provider Test Date Status JOEYAHAIRASEAMUS BLANDON 11/10/2023 06:56:00 Final Observation Date Value Abnormality Reference (Units ) Status Phosphate 11/10/2023 06:56:00 3.3 2.5-4.8 (m g/dL) Final Performing Location [facility] - [address] [place] [address]
--- OUTSIDE RECORDS SUMMARY | 2024-05-06 15:41 | External Medical Summary ---
Author Name Unknown Address Unknown Organization [id number]:[facility] [place] [facility] [address] [place] [address] Laboratory Report Ordering Provider Test Date Status MANOJ HORTON 11/14/2023 07:15:00 Final Warfarin Therapy
INR: 2 .0-3.0 conventional anticoagulation
INR: 2.5- 3.5 high intensity anticoagulation Observation Date Value Abnormality Reference (Units ) Status PT 11/14/2023 07:15:00 15.4 Above high normal 11 .6-15.2 (seconds) Final INR 11/14/2023 07:15:00 1.2 0.8-1.2 Final Performing Location [facility] [place] [facility] [place] [address]
--- OUTSIDE RECORDS SUMMARY | 2024-05-06 15:41 | External Medical Summary ---
Author Name Unknown Address Unknown Organization [id number]:[facility]ORY [facility] [place] - [facility] [address] [facility] [address] [facility] [address] Laboratory Report Ordering Provider Test Date Status MANOJ HORTON 11/15/2023 07:19:00 Final Observation Date Value Abnormality Reference (Units ) Status WBC, Total 11/15/2023 07:19:00 10.16 4.00-10.80 (K/uL) Final RBC 11/15/2023 07:19:00 4.22 4.50-5.25 (M/uL) Final Hemoglobin 11/15/2023 07:19:00 13.3 Below low normal 14.0-16.8 (g/dL) Final HCT 11/15/2023 07:19:00 38.8 Below low normal 40.0-48.4 (%) Final MCV 11/15/2023 07:19:00 91.9 82.0-99.5 (fL) Final MCH 11/15/2023 07:19:00 31.5 27.0-34.0 (pg) Final MCHC 11/15/2023 07:19:00 34.3 32.0-36.0 (g/dL) Final RDW 11/15/2023 07:19:00 12.2 11.5-15.5 (%) Final Platelets 11/15/2023 07:19:00 271 140-400 (K/uL) Final MPV 11/15/2023 07:19:00 9.7 6.6-11.1 (fL) Final Nucleated erythrocytes/100 leukocytes [Ratio] in Blood by Automated count 11/15/2023 07:19:00 0 <=0 (/100 WBCs) Final Performing Location LABORATORY [facility] [place] - [address] [place] [address]
--- OUTSIDE RECORDS SUMMARY | 2024-05-06 15:41 | External Medical Summary ---
Author Name Unknown Address Unknown Organization [id number]:[facility] [address] [place] [address] Laboratory Report Ordering Provider Test Date Status MANOJ HORTON 11/13/2023 06:56:00 Final Observation Date Value Abnormality Reference (Units ) Status Phosphate 11/13/2023 06:56:00 3.5 2.5-4.8 (m g/dL) Final Performing Location [facility] - [address] [place] [address]
--- OUTSIDE RECORDS SUMMARY | 2024-05-06 15:41 | External Medical Summary ---
Author Name Unknown Address Unknown Organization [id number]:[facility] - [address] [place] [address] Laboratory Report Ordering Provider Test Date Status MANOJ HORTON 11/14/2023 07:15:00 Final Observation Date Value Abnormality Reference (Units ) Status Magnesium 11/14/2023 07:15:00 2.3 1.5-2.6 (m g/dL) Final Performing Location [facility] - [address] [place] [address]
--- OUTSIDE RECORDS SUMMARY | 2024-05-06 15:41 | External Medical Summary ---
Author Name Unknown Address Unknown Organization [id number]:[facility]ATORY [facility] [place] [facility] - [address] [place] [address] Laboratory Report Ordering Provider Test Date Status BABAK CALDERON 11/10/2023 06:56:00 Final Observation Date Value Abnormality Reference (Units ) Status ABO 11/10/2023 06:56:00 O Final RH 11/10/2023 06:56:00 Negative Final RED BLOOD CELL ANTIBODY SCREEN 11/10/2023 06:56:00 Negative Final SPECIMEN EXPIRATION DATE 11/10/2023 06:56:00 11/13/2023 23:59 Final Performing Location [facility] [place] [facility] - [address] [place] [address]
--- OUTSIDE RECORDS SUMMARY | 2024-05-06 15:41 | External Medical Summary ---
Author Name Unknown Address Unknown Organization [id number]:[facility]ORY [facility] [place] - [facility] [place] [address] Laboratory Report Ordering Provider Test Date Status SEAMUS TAYLOR 11/10/2023 06:56:00 Final Observation Date Value Abnormality Reference (Units ) Status WBC, Total 11/10/2023 06:56:00 6.45 4.00-10.80 (K/uL) Final RBC 11/10/2023 06:56:00 4.64 4.50-5.25 (M/uL) Final Hemoglobin 11/10/2023 06:56:00 14.1 14.0-16.8 (g/dL) Final HCT 11/10/2023 06:56:00 42.6 40.0-48.4 (%) Final MCV 11/10/2023 06:56:00 91.8 82.0-99.5 (fL) Final MCH 11/10/2023 06:56:00 30.4 27.0-34.0 (pg) Final MCHC 11/10/2023 06:56:00 33.1 32.0-36.0 (g/dL) Final RDW 11/10/2023 06:56:00 12.2 11.5-15.5 (%) Final Platelets 11/10/2023 06:56:00 221 140-400 (K/uL) Final MPV 11/10/2023 06:56:00 10.1 6.6-11.1 (fL) Final Nucleated erythrocytes/100 leukocytes [Ratio] in Blood by Automated count 11/10/2023 06:56:00 0 <=0 (/100 WBCs) Final Performing Location LAB[facility]ATORY [facility] [place] - [address] [place] [address]
--- OUTSIDE RECORDS SUMMARY | 2024-05-06 15:41 | External Medical Summary ---
Author Name Unknown Address Unknown Organization [id number]:[facility] - [address] [place] [address] Laboratory Report Ordering Provider Test Date Status MANOJ HORTON 11/12/2023 07:07:00 Final Observation Date Value Abnormality Reference (Units ) Status Magnesium 11/12/2023 07:07:00 2.2 1.5-2.6 (m g/dL) Final Performing Location [facility] - [address] [place] [address]
--- OUTSIDE RECORDS SUMMARY | 2024-05-06 15:41 | External Medical Summary ---
Author Name Unknown Address Unknown Organization [id number]:LABORATORY [facility] - [facility] [address] [place] [address] Laboratory Report Ordering Provider Test Date Status MANOJ HORTON 11/11/2023 06:38:00 Final Warfarin Therapy
INR: 2 .0-3.0 conventional anticoagulation
INR: 2.5- 3.5 high intensity anticoagulation Observation Date Value Abnormality Reference (Units ) Status PT 11/11/2023 06:38:00 15.3 Above high normal 11 .6-15.2 (seconds) Final INR 11/11/2023 06:38:00 1.2 0.8-1.2 Final Performing Location LABORATORY [facility] - [facility] [place] [address]
--- OUTSIDE RECORDS SUMMARY | 2024-05-06 15:41 | External Medical Summary ---
Author Name Unknown Address Unknown Organization [id number]:LABORATORY [place] [address] [place] [address] Laboratory Report Ordering Provider Test Date Status MANOJ HORTON 11/13/2023 06:57:00 Final Warfarin Therapy
INR: 2 .0-3.0 conventional anticoagulation
INR: 2.5- 3.5 high intensity anticoagulation Observation Date Value Abnormality Reference (Units ) Status PT 11/13/2023 06:57:00 15.6 Above high normal 11 .6-15.2 (seconds) Final INR 11/13/2023 06:57:00 1.2 0.8-1.2 Final Performing Location LABORATORY [facility] [place] - [facility] [place] [address]
--- OUTSIDE RECORDS SUMMARY | 2024-05-06 15:41 | External Medical Summary | Summary of Care ---
Author Name Unknown Organization [facility] Address [address] [facility] [place] [address] Phone [phone] Care Team Providers Care Foundation Engineer Name Role Phone Luz Maria Gama DO Primary Care Provider Encounter Details Date Type Department Care Team (Late st Contact Info) Description 11/05/2023 Telephone [facility] [address] [place] [address] Luz Maria Gama DO [address] [place] [address] Allergies No known active allergiesdocumented as of this encounter (statuses as of 11/11/2023) Medications Medication Sig Dispensed Refills Start Date [...] below 140/90,Ischemic cardiomyopathy,Aristeo nary artery disease involving [place] coronary artery of [place] heart without angina pectoris,Dyslipidem ia, goal LDL [...] as of this encounter (statuses as of 11/11/2023) Active Problems Problem Noted Date Diagnosed Date Brain mass 11/08/2023 Brain tumor 11/05/2023 Meniere [...] as of this encounter (statuses as of 11/11/2023) Resolved Problems Problem Noted Date Diagnosed Date [...] as of this encounter (statuses as of 11/11/2023) Immunizations Name Administration Dates Next Due COVID-19 [...] EST Nutrition Services Nutrition & Weight Management, [place] [address] [place] [address] Toya Rangel RDN [address] [facility] [place] [address] 11/22/2023 10:45 AM EST Office Visit Neurosurgery, [place] [address] [place] [address] Clinic, Brain Tumor Multidisciplinary [address] [place] [address] 03/20/2024 10:50 AM EDT Office Visit Family [facility] [address] [place] [id number] Luz Maria Gama, [address] [place], [place] [id number] 09/29/2024 1:00 PM EST Office Visit Neurology [facility] [address] [place] [address] Mariama Hinojosa [address] [place] [address] Scheduled Procedures Name Priority Associated Diagnoses Date/Ti me COLONOSCOPY FLEXIBLE PROXIMA L DIAGNOSTIC Recall Encounter for screening colonoscopy Health Maintenance Due Date Last Done Comments HIV Screening 1980 Hepatitis B (1 of 3 - 19+ 3-dose series) 1984 Cologuard 2010 Fecal Occult Blood Test 2010 Sigmoidoscopy 2010 LUNG CANCER SCREENING - USE SMARTSET 64154 2015 Pneumococcal Vaccine: Pediatrics (0 to 5 Years) and At-Risk Patients (6 to 64 Years) (2 of 2 - PCV) 06/16/2018 06/16/2017 Albumin/Creatinine Ratio 01/10/2022 01/10/2019 Depression, Most Recent Score >= 10 (will fire each visit until score < 10) 01/02/2023 01/01/2023 COVID-19 Vaccine ( season) 2023 06/08/2021, 12/02/2020, 10/28/2020 Influenza Vaccine (FLU shot) (#1) 2023 07/03/2020, 06/30/2018 GFR 11/11/2024 11/11/2023, 10/22, 11/09/2023, Additional history exists Colonoscopy 09/01/2026 09/01/2016, 09/01/2016 Colorectal Cancer Screening 09/01/2026 Diabetes Screening 11/11/2026 11/11/2023, 0 11/10/2023, 11/10/2023, Additional history exists DTaP,Tdap,and Td Vaccines (2 - Td or Tdap) 12/25/2027 12/24/2017 Zoster Vaccines Completed 05/19/2021, 07/03/2020 GARDASIL-HPV IMMUNIZATION [...] the patient have Health Care Power of Rand Sewer? No Code Status History Code Status Date [...] Advance Directives occurred with: Patient Care Teams Foundation Engineer Relationship Specialty Start Date End Date Luz Maria Gama DO [address] [place] [address] PCP - General Family Medicine 01/04/23 documented as of this encounter
--- OUTSIDE RECORDS SUMMARY | 2024-05-06 15:41 | External Medical Summary ---
Author Name Unknown Address Unknown Organization K01:[facility] [address] [place] [address] Laboratory Report Ordering Provider Test Date Status MANOJ HORTON 11/12/2023 07:07:00 Final Observation Date Value Abnormality Reference (Units ) Status Phosphate 11/12/2023 07:07:00 2.9 2.5-4.8 (m g/dL) Final Performing Location [facility] - [address] [place] [address]
--- OUTSIDE RECORDS SUMMARY | 2024-05-06 15:41 | External Medical Summary ---
Author Name Unknown Address Unknown Organization [id number]:[facility] [place] [facility] [address] [place] [address] Laboratory Report Ordering Provider Test Date Status MANOJ HORTON 11/13/2023 06:56:00 Final Observation Date Value Abnormality Reference (Units ) Status WBC, Total 11/13/2023 06:56:00 11.63 Above high normal 4.00-10.80 (K/uL) Final RBC 11/13/2023 06:56:00 4.36 4.50-5.25 (M/uL) Final Hemoglobin 11/13/2023 06:56:00 13.5 Below low normal 14.0-16.8 (g/dL) Final HCT 11/13/2023 06:56:00 40.1 40.0-48.4 (%) Final MCV 11/13/2023 06:56:00 92.0 82.0-99.5 (fL) Final MCH 11/13/2023 06:56:00 31.0 27.0-34.0 (pg) Final MCHC 11/13/2023 06:56:00 33.7 32.0-36.0 (g/dL) Final RDW 11/13/2023 06:56:00 12.3 11.5-15.5 (%) Final Platelets 11/13/2023 06:56:00 265 140-400 (K/uL) Final MPV 11/13/2023 06:56:00 10.1 6.6-11.1 (fL) Final Nucleated erythrocytes/100 leukocytes [Ratio] in Blood by Automated count 11/13/2023 06:56:00 0 <=0 (/100 WBCs) Final Performing Location LABORATORY [facility] [place] [address] [place] [address]
--- OUTSIDE RECORDS SUMMARY | 2024-05-06 15:41 | External Medical Summary ---
Author Name Unknown Address Unknown Organization K01:[facility]ORY [facility] - [address] [place] [address] Laboratory Report Ordering Provider Test Date Status MANOJ HORTON 11/11/2023 06:38:00 Final Observation Date Value Abnormality Reference (Units ) Status Phosphate 11/11/2023 06:38:00 2.3 Below low normal 2.5 -4.8 (mg/dL) Final Performing Location LABORATORY [facility] [place] - [address] [place] [address]
--- OUTSIDE RECORDS SUMMARY | 2024-05-06 15:41 | External Medical Summary ---
Author Name Unknown Address Unknown Organization K01:LABORATORY [facility] [place] - [address] [place] [address] Laboratory Report Ordering Provider Test Date Status SEAMUS TAYLOR 11/10/2023 06:56:00 Final Warfarin Therapy
INR: 2 .0-3.0 conventional anticoagulation
INR: 2.5- 3.5 high intensity anticoagulation Observation Date Value Abnormality Reference (Units ) Status PT 11/10/2023 06:56:00 15.2 11.6-15.2 (seconds) Final INR 11/10/2023 06:56:00 1.2 0.8-1.2 Final Performing Location LABORATORY [facility] [place] - [address] [place] [address]
--- OUTSIDE RECORDS SUMMARY | 2024-05-06 15:41 | External Medical Summary ---
Author Name Unknown Address Unknown Organization K01:[facility] - [address] [place] [address] Laboratory Report Ordering Provider Test Date Status SEAMUS TAYLOR 11/10/2023 06:56:00 Final Observation Date Value Abnormality Reference (Units ) Status Magnesium 11/10/2023 06:56:00 2.2 1.5-2.6 (m g/dL) Final Performing Location [facility] - [address] [place] [address]
--- OUTSIDE RECORDS SUMMARY | 2024-05-06 15:41 | External Medical Summary ---
Author Name Unknown Address Unknown Organization : Laboratory Report Ordering Provider Test Date Status GUILLERMINA WOOD 11/10/2023 13:50:11 Final Observation Date Value Abnormality Reference (Units) Status Blood draw [PhenX] 11/10/2023 13:50:11 Arterial Draw Final pH, POC (i-STAT) 11/10/2023 13:50:11 7.307 Below low normal 7.350-7.450 Final PCO2 POC (i-STAT) 11/10/2023 13:50:11 17.6 Below low normal 35.0-45.0 (mm Hg) Final PO2 POC (i-STAT) 11/10/2023 13:50:11 187 Above high normal 75-100 (mm Hg) Final Base excess standard in Arterial blood by calculation 11/10/2023 13:50:11 -16 Below low normal -2-2 (mmol/L) Final Bicarbonate, Venous, POC (i-STAT) 11/10/2023 13:50:11 8.8 Below low normal 23.0-31.0 (mmol/L) Final O2 Sat, calculated POC (i-STAT) 11/10/2023 13:50:11 100.0 Above high normal 94.0-98.0 (%) Final Glucose, whole blood 11/10/2023 13:50:11 51 Below low normal 70-120 (mg/dL) Final Potassium, Whole Blood 11/10/2023 13:50:11 <2.0 Below lower panic limits 3.5-5.1 (mmol/L) Final Sodium, Whole Blood 11/10/2023 13:50:11 150 Above high normal 135-146 (mmol/L) Final Calcium, Ionized, Whole Blood 11/10/2023 13:50:11 0.63 Below lower panic limits 1.13-1.32 (mmol/L) Final Hemoglobin POC (i-STAT) 11/10/2023 13:50:11 7.1 Below low normal 14.0-16.8 (g/dL) Final HCT 11/10/2023 13:50:11 21 Below lower panic limits 40-48 (%) Final Oxygen/Total gas setting [Volume Fraction] Ventilator 11/10/2023 13:50:11 60 (%) Final Body temperature 11/10/2023 13:50:11 36.4 (C) Final Performing Location
--- OUTSIDE RECORDS SUMMARY | 2024-05-06 15:41 | External Medical Summary ---
Author Name Unknown Address Unknown Organization K01:LABORATORY [facility] [place] - [facility] [address] [facility] [address] Laboratory Report Ordering Provider Test Date Status MANOJ HORTON 11/11/2023 06:38:00 Final Observation Date Value Abnormality Reference (Units ) Status WBC, Total 11/11/2023 06:38:00 12.74 Above high normal 4.00-10.80 (K/uL) Final RBC 11/11/2023 06:38:00 4.40 4.50-5.25 (M/uL) Final Hemoglobin 11/11/2023 06:38:00 13.7 Below low normal 14.0-16.8 (g/dL) Final HCT 11/11/2023 06:38:00 40.9 40.0-48.4 (%) Final MCV 11/11/2023 06:38:00 93.0 82.0-99.5 (fL) Final MCH 11/11/2023 06:38:00 31.1 27.0-34.0 (pg) Final MCHC 11/11/2023 06:38:00 33.5 32.0-36.0 (g/dL) Final RDW 11/11/2023 06:38:00 12.3 11.5-15.5 (%) Final Platelets 11/11/2023 06:38:00 259 140-400 (K/uL) Final MPV 11/11/2023 06:38:00 10.2 6.6-11.1 (fL) Final Nucleated erythrocytes/100 leukocytes [Ratio] in Blood by Automated count 11/11/2023 06:38:00 0 <=0 (/100 WBCs) Final Performing Location LABORATORY [facility] [place] - [address] [place] [address]
--- OUTSIDE RECORDS SUMMARY | 2024-05-06 15:41 | External Medical Summary ---
Author Name Unknown Address Unknown Organization K01:[facility] [place] [facility] [address] [place] [address] Laboratory Report Ordering Provider Test Date Status MANOJ HORTON 11/13/2023 06:56:00 Final Observation Date Value Abnormality Reference (Units ) Status BUN 11/13/2023 06:56:00 23 Above high normal 6-20 (mg/dL) Final Creatinine 11/13/2023 06:56:00 1.0 0.6-1.2 (mg/dL) Final Glomerular filtration rate/1.73 sq M.predicted [Volume Rate/Area] in Serum, Plasma or Blood by Creatinine-based formula (CKD-EPI) 11/13/2023 06:56:00 90 >=60 (mL/min) Final eGFR is calculated based on the CKD-EPI 2020 equation SODIUM 11/13/2023 06:56:00 139 135-146 (m mol/L) Final Potassium 11/13/2023 06:56:00 4.5 3.5-5.1 (m mol/L) Final Cl 11/13/2023 06:56:00 104 98-107 (mm ol/L) Final CO2 11/13/2023 06:56:00 24 22-32 (mmo l/L) Final Anion gap 11/13/2023 06:56:00 11 7-15 (mmol /L) Final Glucose 11/13/2023 06:56:00 115 70-120 (mg /dL) Final Calcium 11/13/2023 06:56:00 8.9 8.4-10.2 ( mg/dL) Final Performing Location LAB[facility]ORY [facility] [place] [address] [place] [address]
--- OUTSIDE RECORDS SUMMARY | 2024-05-06 15:41 | External Medical Summary ---
Author Name Unknown Address Unknown Organization K01:LABORATORY [facility] [place] [address] [place] [address] Laboratory Report Ordering Provider Test Date Status MANOJ HORTON 11/15/2023 07:20:00 Final Observation Date Value Abnormality Reference (Units ) Status BUN 11/15/2023 07:20:00 24 Above high normal 6-20 (mg/dL) Final Creatinine 11/15/2023 07:20:00 1.0 0.6-1.2 (mg/dL) Final Glomerular filtration rate/1.73 sq M.predicted [Volume Rate/Area] in Serum, Plasma or Blood by Creatinine-based formula (CKD-EPI) 11/15/2023 07:20:00 88 >=60 (mL/min) Final eGFR is calculated based on the CKD-EPI 2020 equation SODIUM 11/15/2023 07:20:00 137 135-146 (m mol/L) Final Potassium 11/15/2023 07:20:00 4.6 3.5-5.1 (m mol/L) Final Cl 11/15/2023 07:20:00 103 98-107 (mm ol/L) Final CO2 11/15/2023 07:20:00 24 22-32 (mmo l/L) Final Anion gap 11/15/2023 07:20:00 10 7-15 (mmol /L) Final Glucose 11/15/2023 07:20:00 112 70-120 (mg /dL) Final Calcium 11/15/2023 07:20:00 9.0 8.4-10.2 ( mg/dL) Final Performing Location LABORATORY [facility] [place] [address] [place] [address]
--- OUTSIDE RECORDS SUMMARY | 2024-05-06 15:41 | External Medical Summary ---
Author Name Unknown Address Unknown Organization K01:[facility] - [address] [place] [address] Laboratory Report Ordering Provider Test Date Status MANOJ HORTON 11/15/2023 07:20:00 Final Observation Date Value Abnormality Reference (Units ) Status Phosphate 11/15/2023 07:20:00 4.0 2.5-4.8 (m g/dL) Final Performing Location [facility] - [address] [place] [address]
--- OUTSIDE RECORDS SUMMARY | 2024-05-06 15:41 | External Medical Summary ---
Author Name Unknown Address Unknown Organization [id number]:[facility]ATORY [place] [address] [facility] [address] Laboratory Report Ordering Provider Test Date Status MANOJ HORTON 11/12/2023 07:07:00 Final Observation Date Value Abnormality Reference (Units ) Status WBC, Total 11/12/2023 07:07:00 12.96 Above high normal 4.00-10.80 (K/uL) Final RBC 11/12/2023 07:07:00 4.24 4.50-5.25 (M/uL) Final Hemoglobin 11/12/2023 07:07:00 13.0 Below low normal 14.0-16.8 (g/dL) Final HCT 11/12/2023 07:07:00 39.1 Below low normal 40.0-48.4 (%) Final MCV 11/12/2023 07:07:00 92.2 82.0-99.5 (fL) Final MCH 11/12/2023 07:07:00 30.7 27.0-34.0 (pg) Final MCHC 11/12/2023 07:07:00 33.2 32.0-36.0 (g/dL) Final RDW 11/12/2023 07:07:00 12.4 11.5-15.5 (%) Final Platelets 11/12/2023 07:07:00 255 140-400 (K/uL) Final MPV 11/12/2023 07:07:00 10.2 6.6-11.1 (fL) Final Nucleated erythrocytes/100 leukocytes [Ratio] in Blood by Automated count 11/12/2023 07:07:00 0 <=0 (/100 WBCs) Final Performing Location [facility] [place] [address] [place] [address]
--- OUTSIDE RECORDS SUMMARY | 2024-05-06 15:41 | External Medical Summary ---
Author Name Unknown Address Unknown Organization [id number]:LAB[facility]ATORY [facility] [place] - [address] [place] [address] Laboratory Report Ordering Provider Test Date Status ISRAELGUILLERMINA TRINH 11/10/2023 20:27:00 Final Observation Date Value Abnormality Reference (Units ) Status Potassium, Whole Blood 11/10/2023 20:27:00 4.3 3.5-5.1 (mmol/L) Final Performing Location LABORATORY [facility] [place] - [address] [place] [address]
--- OUTSIDE RECORDS SUMMARY | 2024-05-06 15:41 | External Medical Summary ---
Author Name Unknown Address Unknown Organization [id number][place] [facility] [address] [place] [place] [address] Laboratory Report Ordering Provider Test Date Status NICKY BAUER 11/10/2023 15:43:24 Final Observation Date Value Abnormality Reference (Units ) Status Potassium, Whole Blood 11/10/2023 15:43:24 2.3 Below lower panic limits 3.5-5.1 (mmol/L) Final Performing Location [facility] [place] [address] [place] [address]
--- OUTSIDE RECORDS SUMMARY | 2024-05-06 15:41 | External Medical Summary ---
Author Name Unknown Address Unknown Organization [id number]:LABORATORY [facility] [place] - [address] [place] [address] Laboratory Report Ordering Provider Test Date Status SEAMUS TAYLOR 11/10/2023 06:56:00 Final Observation Date Value Abnormality Reference (Units ) Status BUN 11/10/2023 06:56:00 20 6-20 (mg/dL) Final Creatinine 11/10/2023 06:56:00 1.2 0.6-1.2 (mg/dL) Final Glomerular filtration rate/1.73 sq M.predicted [Volume Rate/Area] in Serum, Plasma or Blood by Creatinine-based formula (CKD-EPI) 11/10/2023 06:56:00 69 >=60 (mL/min) Final eGFR is calculated based on the CKD-EPI 2020 equation SODIUM 11/10/2023 06:56:00 137 135-146 (m mol/L) Final Potassium 11/10/2023 06:56:00 4.2 3.5-5.1 (m mol/L) Final Cl 11/10/2023 06:56:00 102 98-107 (mm ol/L) Final CO2 11/10/2023 06:56:00 25 22-32 (mmo l/L) Final Anion gap 11/10/2023 06:56:00 10 7-15 (mmol /L) Final Glucose 11/10/2023 06:56:00 102 70-120 (mg /dL) Final Calcium 11/10/2023 06:56:00 8.7 8.4-10.2 ( mg/dL) Final Performing Location LABORATORY [facility] [place] - [address] [place] [address]
--- OUTSIDE RECORDS SUMMARY | 2024-05-06 15:41 | External Medical Summary ---
Author Name Unknown Address Unknown Organization [id number]:LAB[facility]ATORY [facility] [place] [address] [place] [address] Laboratory Report Ordering Provider Test Date Status MANOJ HORTON 11/12/2023 07:07:00 Final Warfarin Therapy
INR: 2 .0-3.0 conventional anticoagulation
INR: 2.5- 3.5 high intensity anticoagulation Observation Date Value Abnormality Reference (Units ) Status PT 11/12/2023 07:07:00 15.6 Above high normal 11 .6-15.2 (seconds) Final INR 11/12/2023 07:07:00 1.2 0.8-1.2 Final Performing Location LAB[facility]ATORY [facility] [place] - [facility] [place] [address]
--- OUTSIDE RECORDS SUMMARY | 2024-05-06 15:41 | External Medical Summary ---
Author Name Unknown Address Unknown Organization K01:LABORATORY [facility] - [address] [place] [address] Laboratory Report Ordering Provider Test Date Status MANOJ HORTON 11/14/2023 07:15:00 Final Observation Date Value Abnormality Reference (Units ) Status Phosphate 11/14/2023 07:15:00 3.6 2.5-4.8 (m g/dL) Final Performing Location LABORATORY [facility] - [address] [place] [address]
[2024-05-06 15:55] LABS: iSTAT Creatinine 1.1 mg/dl (0.6-1.3); iSTAT Ionized Calcium 1.2 mmol/l (1.12-1.32); iSTAT Potassium 5.1 mmol/L (3.3-5.0)
[2024-05-06 16:01] LABS: Basophils # (auto) 0.03 K/uL (0.00-0.20); Basophils % (auto) 0.3 %; Eosinophils # (auto) 0.01 K/uL (0.00-0.50); Eosinophils % (auto) 0.1 %; Hematocrit (blood only) 45.4 % (42.0-52.0); Hemoglobin 15.1 g/dl (14.0-18.0); Immature Granulocytes # (auto) 0.21 K/uL (0.01-0.20); Immature Granulocytes % (auto) 1.9 %; Lymphocytes # (auto) 0.68 K/uL (1.20-3.40); Lymphocytes % (auto) 6.3 %; Mean Corpuscular Hemoglobin 31.3 pg (25.0-34.0); Mean Corpuscular Hgb Conc 33.3 g/dL (32.0-36.0); Mean Corpuscular Volume 94.2 fL (80.0-100.0); Mean Platelet Volume 9.1 fL (9.4-12.4); Monocytes # (auto) 0.58 K/uL (0.11-0.59); Monocytes % (auto) 5.4 %; Platelet Count 274 K/uL (130-400); RDW Standard Deviation 48.8 fL (36.4-46.3); Red Blood Count 4.82 M/uL (4.70-6.10); White Blood Count 10.81 K/ul (4.8-10.8)
[2024-05-06] MEDS: OPTIRAY 320 125ml IV ONE (16:19)
[2024-05-06 16:21] LABS: Albumin Level 3.7 gm/dl (3.4-5.0); BUN Creatinine Ratio 21.4 (10-20); Bilirubin,Total 0.6 mg/dl (0.2-1.0); Calcium 10.1 mg/dl (8.6-10.3); Est GFR (African American) 83.5 ml/min; Globulin 3.7 gm/dl (2.5-4.0); Total Protein 7.4 gm/dl (6.0-8.3)
[2024-05-06 16:21] LABS: Appearance Urine Cloudy (Clear); Bacteria Urine Automated None Seen (None Seen); Bilirubin Urine 1+ (Negative); Blood Urine Negative (Negative); Color Urine Dark Yellow; Glucose Urine UA Negative (Negative); Ketones Urine Negative (Negative); Leukocyte Esterase Urine Trace (Negative); Mucus Urine Present (None Prsent); Nitrite Urine Negative (Negative); Protein Urine 2+ (Negative); RBC Urine Automated 0-2 /hpf (0-2); Urobilinogen Urine Negative (Negative); WBC Urine Automated 0-5 /hpf (0-5); pH Urine 5.5 (4.5-7.5)
--- NOTE | 2024-05-06 16:46 | CT Scan Report ---
CT SCAN OF THE ABDOMEN AND PELVIS WITH IV CONTRAST CLINICAL HISTORY: Lower abdominal pain. COMPARISON STUDY: No priors. TECHNIQUE: Following the IV administration of 120 cc of Optiray 320, CT scan of the abdomen and pelv is is performed from the lung bases to the proximal femora. Images are reviewed in the axial, sagitta l, and coronal planes. IV contrast was administered without complication. A dose lowering technique w as utilized adhering to the principles of ALARA. CT DOSE: 1676.25 mGy.cm FINDINGS: Lung bases: The heart is normal in size and without pericardial effusion. There is trace pneumomedias tinum. The lung bases are clear negative dependent scarring/atelectasis. Liver: The contrast-enhanced liver is size and contour. Attenuation is diffusely diminished indicatin g steatosis. Fatty sparing is seen adjacent to the gallbladder fossa. There is no intrahepatic biliar y ductal dilatation. The hepatic veins and portal veins are patent. Gallbladder: Unremarkable. Spleen: Normal in size and attenuation. Pancreas: Unremarkable. Adrenal glands: Unremarkable. Kidneys: The contrast enhanced kidneys are normal in size and without hydronephrosis. The kidneys enh ance symmetrically. Abdominal vasculature: There is advanced atherosclerotic calcification and mild ectasia of the abdomi nal aorta. Bowel: There is moderate colonic fecal retention. No bowel obstruction is seen. There is moderate col onic diverticulosis without clear CT evidence of acute diverticulitis. There are thick-walled and inf lamed loop of small bowel in the central lower abdomen with surrounding fluid seen on axial image #29 3. The appendix is well-visualized and normal. Peritoneum: There is a large volume of intraperitoneal free air. Interloop fluid is seen in the lower abdomen and there is trace free fluid in the pelvis. No organized fluid collection is seen to sugges t abscess. There is evidence of prior ventral hernia repair. Lymphadenopathy: None. Pelvic viscera: The bladder, prostate, and seminal vesicles are normal as visualized. Skeletal structures: There is moderate lumbosacral spondylosis. Mild sclerotic changes seen in the sa croiliac joints. No lytic or blastic lesions are seen. IMPRESSION: 1. There is a large volume of intraperitoneal free air indicative of visceral perforation. Surgical e valuation is advised. 2. The site of perforation is not clearly delineated. 3. There are inflamed loops of small bowel in the central lower abdomen with surrounding fluid, as we ll as significant diverticular disease of the left colon. Although not definitive, one of these sites is favored as the site of perforation. 4. No bowel obstruction is seen. 5. No organized fluid collection is identified to suggest abscess. 6. Hepatic steatosis. 7. There is trace pneumomediastinum, likely related to intraperitoneal free air. 8. Additional findings as above. ACT 112: Negative or not required by law. Electronically signed by: Goyo Yun M.D. 05/06/2024 4:44 PM
[2024-05-06] MEDS: PIPERACILLIN/TAZOBACTAM 4.5 GM/100 ML BAG IV ONE (16:54)
--- NOTE | 2024-05-06 17:16 | Anesthesiology Consultation ---
Date of Service May 06, 2024 Assessment & Plan (1) Encounter for pre-operative examination: Chart Review Chart Review: Acceptable Risk for Surgery (urgent) History Height/Weight Height: 6 ft 2 in Weight: 137.2 kg Allergies Allergy/AdvReac Type Severity Reaction Status Date / Time ibuprofen Allergy Intermediate UNABLE TO Unverified 09/03/17 09:52 TAKE DUE TO HEART MEDICATION, PER Medications Home Medications Medication Instructions Recorded Confirmed Last Taken ASPIRIN (ASPIRIN CHEWABLE) 81 mg PO DAILY ##0 09/03/17 11/05/23 Unknown Bupropion (Wellbutrin Sr) 150 mg PO DAILY ##0 09/03/17 11/05/23 Unknown Doxycycline (Monohydrate) 50 mg PO DAILY ##0 09/03/17 11/05/23 Unknown (Doxycycline) Metoprolol Succinate (TOPROL XL) 25 mg PO DAILY ##0 09/03/17 11/05/23 Unknown lisinopril 20 mg tablet 20 mg PO DAILY 11/05/23 11/05/23 Unknown bupropion HCl 150 mg tablet,12 hr 150 mg PO BID 05/06/24 05/06/24 Unknown sustained-release buspirone 10 mg tablet 10 mg PO TID 05/06/24 05/06/24 Unknown morphine 60 mg tablet,extended 60 mg PO AMHS 05/06/24 05/06/24 Unknown release nitrofurantoin 100 mg PO AMHS 05/06/24 05/06/24 Unknown monohydrate/macrocrystals 100 mg capsule Active Medications Generic Name Dose Route Start Last Admin Trade Name Freq PRN Reason Stop Dose Admin Morphine Sulfate 4 mg 05/06/24 15:28 05/06/24 15:41 Morphine Sulfate 4 Mg/Ml 1 Ml Carp\Vial IV 05/20/24 15:27 4 mg Q15M PRN Administration Pain NPO Last Intake of Fluids Comment: Breakfast Last Intake of Solids Comment: Breakfast Past Medical History Medical History (Updated 05/06/24 @ 18:22 by David Greenfield MD) CAD (coronary artery disease) Anxiety Hypertension Glioblastoma Past Surgical History Surgical History (Updated 05/06/24 @ 18:22 by David Greenfield MD) Hx of craniotomy Hx of right coronary artery stent placement Social History Smoking Status: Never smoker Physical Exam Vital Signs Last Vital Signs Temp 36.3 C L 05/06/24 15:20 Pulse 81 08/17/24 16:00 Resp 17 05/06/24 16:00 BP 136/75 05/06/24 16:00 Pulse Ox 97 05/06/24 16:00 O2 Del Method Room Air 05/06/24 16:00 Testing Laboratory Results 05/06/24 15:35 05/06/24 15:35 Urine Color Dark Yellow 05/06/24 Unknown Urine Appearance Cloudy (Clear) A 05/06/24 Unknown Urine pH 5.5 (4.5-7.5) 05/06/24 Unknown Ur Specific Brinkley 1.030 (1.000-1.030) 05/06/24 Unknown Urine Protein 2+ (Negative) H 05/06/24 Unknown Urine Glucose (UA) Negative (Negative) 05/06/24 Unknown Urine Ketones Negative (Negative) 05/06/24 Unknown Urine Nitrite Negative (Negative) 05/06/24 Unknown Ur Leukocyte Esterase Trace (Negative) H 05/06/24 Unknown Urine WBC (Auto) 0-5 /hpf (0-5) 05/06/24 Unknown Urine RBC (Auto) 0-2 /hpf (0-2) 05/06/24 Unknown U Hyaline Cast (Auto) 11-20 /lpf (0-2) H 05/06/24 Unknown U Epithel Cells (Auto) 6-10 /hpf (0-2) H 05/06/24 Unknown Urine Bacteria (Auto) None Seen (None Seen) 05/06/24 Unknown 05/06/24 15:43 POC Glucose (other) 106 H Electrocardiogram Date: 11/05/23 Findings: + NSR @ (68) cannot rule out inf [place]
[2024-05-06] MEDS ORDERED: fentaNYL citrate PF 100 MCG/2 ML VIAL ONE (17:39)
--- NOTE | 2024-05-06 18:25 | History & Physical Report ---
Date of Service May 06, 2024 Assessment & Plan (1) Pneumoperitoneum of unknown etiology: Plan: His CT images and results were personally viewed and interpreted by myself He does have a large volume of intraperitoneal free air and some inflammation of the descending/sigmoid colon and the small bowel in that area with an uncertain area of where the perforation is Due to this we will take him emergently to the operating room for exploratory laparotomy, possible bowel resection, possible ostomy, possible wound VAC Consent was obtained with the patient and his healthcare power of environmental attorney and risks were discussed including bleeding, infection, anastomotic leak, injury to surrounding structures History of Present Illness Chief Complaint: Abdominal pain Primary Care Provider: Luz Maria Gama DO This is a 58-year-old male who came to the ER today with about a weeks long history of abdominal pain that progressively worsened. He initially was seen by his oncologist who diagnosed him with a UTI and gave him an antibiotic however this did not help. He has had progressive generalized abdominal pain over that time. There is no radiation of the pain. Does seem to be worse in the right abdomen. Denies any fevers or chills or nausea or vomiting. There is no alleviating or aggravating factors to the pain. No previous abdominal surgeries. He does have a history of glioblastoma and he is accompanied by his healthcare power of environmental attorney. He does take a baby aspirin but no other blood thinners. He has not had any chemotherapy treatment in 6 weeks. He did have high-dose steroid 3 days ago. Allergies Allergy/AdvReac Type Severity Reaction Status Date / Time ibuprofen Allergy Intermediate UNABLE TO Unverified 09/03/17 09:52 TAKE DUE TO HEART MEDICATION, PER Home Medications Medication Instructions Recorded Confirmed Type ASPIRIN (ASPIRIN CHEWABLE) 81 mg PO DAILY ##0 09/03/17 11/05/23 History Bupropion (Wellbutrin Sr) 150 mg PO DAILY ##0 09/03/17 11/05/23 History Doxycycline (Monohydrate) 50 mg PO DAILY ##0 09/03/17 11/05/23 History (Doxycycline) Metoprolol Succinate (TOPROL XL) 25 mg PO DAILY ##0 09/03/17 11/05/23 History lisinopril 20 mg tablet 20 mg PO DAILY 11/05/23 11/05/23 History bupropion HCl 150 mg tablet,12 hr 150 mg PO BID 05/06/24 05/06/24 History sustained-release buspirone 10 mg tablet 10 mg PO TID 05/06/24 05/06/24 History morphine 60 mg tablet,extended 60 mg PO AMHS 05/06/24 05/06/24 History release nitrofurantoin 100 mg PO AMHS 05/06/24 05/06/24 History monohydrate/macrocrystals 100 mg capsule Past Med/Surg History Problem List (Updated 05/06/24 @ 18:22 by David Greenfield MD) Encounter for pre-operative examination Pneumomediastinum (Acute) Right lower quadrant abdominal pain (Acute) Pneumoperitoneum of unknown etiology (Acute) Medical History Anxiety Hypertension Glioblastoma Surgical History (Updated 05/06/24 @ 18:22 by David Greenfield MD) Hx of craniotomy Hx of right coronary artery stent placement Social History Smoking Status: Never smoker Preferred Language: Finnish Feels Safe at Home: Yes Review of Systems Constitutional: no fever and no chills Eyes: no blind spots, no corrective lenses and no dry eyes Ear, Nose, Mouth, Throat: + hearing loss; no ear pain and no dizzi ness Respiratory: no cough and no dyspnea Cardiovascular: no chest pain and no dyspnea on exertion Gastrointestinal: + abdominal pain; no nausea, no vomiting , no constipation and no diarrhea/loose stools Genitourinary: + dysuria; no difficulty urinating or no nocturia Musculoskeletal: no back pain and no neck pain Integumentary: + acne; no changing lesions, no skin ulc er and no erythema Neurologic: no gait abnormality and no headache(s) Psychiatric: + confusion; no depression Hematologic / Lymphatic: no easy bleeding and no easy bruising Physical Exam Constitutional: WD/WN, vitals as above Eyes: PERRL, conjunctivae normal, anicteric sclerae ENMT: external ear and nose normal, oropharynx normal Neck: trachea midline, no thyromegaly Respiratory: normal respiratory effort, lungs clear to auscultation Cardiovascular: RRR, no murmur, no edema Gastrointestinal (Abdomen): Inspection/Auscultation: abdomen normal to inspection and + abdomen distended Percussion/Palpation: + abdomen tender (Generalized), + guarding and abdomen soft Guarding and rebound present Musculoskeletal: no cyanosis or clubbing, extremities motor strength 5/5 Skin: no rashes, warm and dry Neurologic: PERRL, EOMI, accommodation nl, no face palsy, no dysarthria Psychiatric: A+Ox3, euthymic affect Results & Data Results & Data Vital Signs (Past 12 Hours) Vital Signs Temp Pulse Pulse Resp BP BP Pulse Ox 05/06/24 17:00 70 14 134/79 96 05/06/24 17:00 134/79 05/06/24 16:39 69 13 132/95 95 05/06/24 16:00 81 17 136/75 97 05/06/24 15:49 72 18 94 05/06/24 15:43 78 05/06/24 15:20 36.3 C L 87 17 130/91 94 O2 Del Method 05/06/24 17:00 05/06/24 17:00 05/06/24 16:39 05/06/24 16:00 Room Air 05/06/24 15:49 Room Air 05/06/24 15:43 05/06/24 15:20 Room Air PG Care Time/CCT Total # of Minutes Spent Total Time Spent with Patient: Total time spent is greater than 50% in coordination of care (as documented) at patient's floor/unit and/or counseling patient: Coding Level of Care Code 54154 INT INP/OBS CARE 3/75MIN Diagnoses Pneumoperitoneum of unknown etiology K66.8
[2024-05-06] MEDS ORDERED: DROPERIDOL 5 MG/2 ML VIAL IV PRN (19:00)
[2024-05-06] MEDS ORDERED: ONDANSETRON INJ 2 MG/ML 2 ML VIAL IV PRN (19:00)
[2024-05-06] MEDS ORDERED: ATROPINE SULFATE 0.1 MG/ML 10ML SYR IV PRN (19:00)
[2024-05-06] MEDS ORDERED: HYDROmorphone INJ 1 MG/ML SYRINGE IV PRN (19:00)
[2024-05-06] MEDS ORDERED: HYDROmorphone INJ 2 MG/ML SYR/VIAL ONE (19:05)
[2024-05-06] MEDS ORDERED: PHENYLEPHRINE 100MCG/ML 10ML SYR IV ONE (20:00)
[2024-05-06] MEDS ORDERED: ePHEDrine sulfate 50 MG/5 ML SYR ONE (20:00)
[2024-05-06] MEDS ORDERED: ROCURONIUM BROMIDE 10 MG/ML 5 ML VIAL IV ONE (20:00)
[2024-05-06] MEDS ORDERED: PROPOFOL IV EMULSION 10 MG/ML 20 ML VIAL IV ONE (20:00)
[2024-05-06] MEDS ORDERED: DEXAMETHASONE SOD INJ 4 MG/ML VIAL ONE (20:00)
[2024-05-06] MEDS ORDERED: MIDAZOLAM HCL 1 MG/ML 2ML VIAL ONE (20:00)
[2024-05-06] MEDS ORDERED: ONDANSETRON INJ 2 MG/ML 2 ML VIAL ONE (20:00)
--- NOTE | 2024-05-06 20:13 | Post Operative Brief Note ---
PG Immediate Post Op with CF Date of Surgery May 06, 2024 Pre & Post Diagnosis Operation Date: 05/06/24 18:15 Pre-Op Diagnosis: Pneumoperitoneum of unknown etiology Post-Op Diagnosis: Sigmoid perforation with purulent peritonitis, intra-abdominal abscess I identified the patient and participated in the time-out.: Yes Procedure Operation Date: 05/06/24 18:15 Actual Procedures p Exploratory Laparotomy, Sigmoidectomy, Appendectomy, Drainage of Intrabdominal abscess, placement of Abthera WoundVAC >50 cm2(Not Applicable) - Carlos Marte DO Surgeon Carlos Marte DO Computer Bookkeeper Gerson Oconnell PA-C Estimated Blood Loss 50 Findings See Below Perforation of the proximal sigmoid colon with purulent peritonitis Large intra-abdominal abscess Questionable viability of the portion of small bowel Specimens Specimen Description: 1. Peritoneal fluid A. Sigmoid colon B. Appendix Drains Other (ABThera wound VAC) Anesthesia Type General Complications none Disposition Disposition: Recovery Room
--- NOTE | 2024-05-06 20:25 | Operative Report ---
PG Post Operative Report Pre & Post Diagnosis Operation Date: 05/06/24 18:15 Pre-Op Diagnosis: Pneumoperitoneum of unknown etiology Post-Op Diagnosis: Sigmoid perforation with purulent peritonitis, intra-abdominal abscess I identified the patient and participated in the time-out.: Yes Procedure Operation Date: 05/06/24 18:15 Actual Procedures p Exploratory Laparotomy, Sigmoidectomy, Appendectomy, Drainage of Intrabdominal abscess, placement of Abthera WoundVAC >50 cm2(Not Applicable) - Carlos Marte DO Surgeon Carlos Marte DO [place] [employer] Operator Gerson Oconnell PA-C Estimated Blood Loss 50 Findings See Below Perforation of the proximal sigmoid colon with purulent peritonitis Large intra-abdominal abscess Questionable viability of the portion of small bowel Specimens Peritoneal fluid for culture Sigmoid colon and appendix to pathology Drains ABThera wound VAC Anesthesia Type General Complications none Disposition Disposition: Recovery Room Indications 58-year-old male with pneumoperitoneum and surgical abdomen Description of Procedure The patient was brought to the OR and placed in the supine position with both arms abducted. At this time he underwent general endotracheal anesthesia without any problems. He was given appropriate pre-operative antibiotics. His abdomen was prepped and draped in the usual sterile fashion. Timeout was called. The procedure was verified as Exploratory laparotomy, possible bowel resection, possible ostomy, possible wound vac. Surgical, anesthesia and n ursing teams agreed and the procedure was begun. A standard midline incision was made using a #10 blade scalpel. This was carried down to the fascia using electrocautery. The midline fascia was then incised with electrocautery. The peritoneum was then entered bluntly. The incision was then opened up through its entirety. There was evidence of a prior mesh repair at his umbilicus. The exposed portion was excised and made with scissors. At this time I was able to free up the omentum using blunt dissection and we encountered purulent peritonitis. This was cultured. I was then able to bluntly free sigmoid from the anterior pelvic abdominal wall as well as small bowel that was walling off colon at the site of perforation. Once I was able to bluntly free everything a perforation of the proximal sigmoid colon was found and was the likely source of the pneumoperitoneum. The small bowel that was adhered to this was of questionable viability and was left in place. We did then run the small bowel from the ligament of Treitz to the ileocecal valve and there was no perforation of the small bowel. We then turned our attention to removing the diseased portion of sigmoid. I was able to mobilize the sigmoid colon immediately Toldt using electrocautery. I did carry this for a good distance proximally. We then chose our distal transection point which was about 5 cm distal to the perforation. A window was created in the mesentery and a ANDREA 80 mm blue load stapler was fired across this to transect the colon. We then found a healthy appearing portion of descending colon proximally and a window was created in the mesentery and this was transected using a ANDREA 80 mm blue load stapler. The mesentery of the sigmoid colon was then taken using the LigaSure device. This was passed off as a specimen which was sigmoid colon. The appendix was mildly inflamed likely secondary to his sigmoid perforation. I did choose to perform an appendectomy at this point making a window in the mesoappendix and transecting the appendix at its base using a ANDREA 80mm blue load stapler. The mesoappendix was then taken using the LigaSure device. This was passed off the specimen. At this point the small bowel was still questionable viability and was quite hyperemic and the decision was made to place an ABThera wound VAC and return to the operating room at a later date for a second look and to create his colostomy. At this point the wound was then irrigated until clear. Hemostasis was achieved using electrocautery. Hemostasis was complete. The inner sponge of the ABThera wound VAC was placed within the peritoneum and the outer sponge was attached to the skin edges using a skin stapler. We then attached the suction device to the ABThera wound VAC and there was a good seal without leak. All needle and sponge counts were correct x 2. At this point the patient remained intubated and was stable throughout the entire case, and transported to ICU in stable condition. The physician's front desk assistant was present and scrubbed for the entirety of the case. He was critical in positioning the patient, prepping and draping, retraction and exposure, and placement of the dressings. I attest to the content of the Intraoperative Record and any orders documented therein. Any exceptions are noted below.
--- NOTE | 2024-05-06 20:37 | Anesthesiology Progress Note ---
Date of Service May 06, 2024 Anesthesia Post Procedure Vital Signs Vital Signs: Temp Pulse Pulse Resp BP BP Pulse Ox 05/06/24 20:30 35.4 C L 76 16 167/98 H 100 05/06/24 20:20 35.2 C L 78 12 155/96 H 100 05/06/24 17:00 70 14 134/79 96 05/06/24 17:00 134/79 05/06/24 16:39 69 13 132/95 95 05/06/24 16:00 81 17 136/75 97 05/06/24 15:49 72 18 94 05/06/24 15:43 78 05/06/24 15:20 36.3 C L 87 17 130/91 94 O2 Del Method FiO2 05/06/24 20:30 Mechanical Vent 30 05/06/24 20:20 Mechanical Vent 100 05/06/24 17:00 05/06/24 17:00 05/06/24 16:39 05/06/24 16:00 Room Air 05/06/24 15:49 Room Air 05/06/24 15:43 05/06/24 15:20 Room Air Transfer of Care Handoff Completed per policy Notes Mental Status: see notes below Patient Amnestic to Procedure: Yes Nausea / Vomiting: see Notes below Pain: see Notes below Airway Patency, RR, SpO2: stable & adequate BP & HR: stable & adequate Hydration State: stable & adequate Anesthetic Complications: no major complications apparent Notes: Pt with temporary abdominal wound vac placed placed by surgeon. Plan to bring him back Wednesday morning for reexploration. Pt kept intubated and sedated. Full report to ICU provider and team.
--- NOTE | 2024-05-06 20:54 | Critical Care Consultation ---
Date of Consultation May 06, 2024 Assessment & Plan (1) Bowel perforation: (2) On mechanically assisted ventilation: Plan Reason Critically Ill: 58 YOM presents to ER with worsening abdominal pain found to have peritonitis and free air. Taken for emergent ex-lap found with purulent fluid and abscess, left open and intubated on mechanical ventilation. Neuro - Sedation for mechanical ventilation, Hx Glioblastoma, Hx Anxiety and Depression CAM ICU: MINDY - With his open abdomen will set DAVID for -3- fentanyl and propofol - for any coughing or desynchrony with vent will pharmacologically paralyze with bolus dosing of Vecuronium, if requiring repeat doses frequently transition to infusion of likely nimbex - sedation and SBT when appropriate from a surgical perspective - Glioblastoma with history of resection - Reportedly left temporal WHO grade IV - MRI 11/13 per OSH records- left tumor resection with mild residual tumor and small right frontal meningioma - undergoing palliative chemo/radiation- Temodar for 6 months then Optitune device and on Lomustine 40mg orally at home - Keppra 500mg PO q12 will be changed to IV until able to take PO for prophylaxis - Hold Decadron 2mg at this time - Anxiety/Depression- Hold home agents of Buspirone and Wellbutrin Cardiac - CAD, hx of stents and [place], HTN, HLD - Hold Metoprolol at this time until hemodynamics are proven stable, consider IV dosing in Am - Hold statin until able to tolerate PO - Hold ASA Respiratory - Intubation requiring mechanical sedation, ALEKSANDR with CPAP - Continue with ARDSnet ventilation strategy- no acute issues at this time - follow EtCO2 and SPo2- ABG as indicated - extubation when surgical corrections are deemed stable GI - bowel perforation with purulent peritonitis and abscess - Per primary surgical team - abdomen incision and drain per primary surgical team - sedation and paralytics as above - see ID section below for abx RENAL/LYTES - No acute needs at this time - follow renal indicies- electrolytes per ICU protocol - LR at 120ml/hour - Cardoza per gravity while intubated - remove once extubated ENDO - No acute needs - ICU hyper/hypoglycemic protocols HEME - Glioblastoma as above - hold agents for now ID - Peritonitis in setting of bowel perforation with abscess noted - Blood cultures obtained in ICU after abx therapy - Will continue Zosyn - As he is immunocompromised with active chemo/radiation therapy will add empiric caspofungin - Follow closely LINES/IV ACCESS - PIV x2, ETT, Cardoza, Continue use of these lines DVT PROPHYLAXIS - SCDS, Heparin 5000 units subq q 8 h DISPO: ICU while intubated and sedated I have personally spent 45 minutes of critical care time in the direct management of this patient. This is a life/limb threatening event. This includes time spent evaluating patient, direct bedside care, chart review, placing orders, interpretation of diagnostic studies, discussion with consultants, patient, and family members, as well as other required patient management activities. This time is exclusive of all separately billable procedures, and teaching time and separate from and in addition to any other critical care service time. Thank you for allowing us to participate in the care of this patient. Please r efer to my attending physician's documentation for any further recommendations. History of Present Illness Reason for Consultation: post surgical open abdomen remaining intubated requiring mechanical ventilation Requesting Physician: Carlos Marte DO Attending Physician: Carlos Marte DO History of Present Illness 58 YOM with minimal records in our system. Per information currently available and after talking to his POA, the patient has medical history of Glioblastoma that was resected in [facility] in , is currently undergoing chemo and radiation care, HTN, HLD, MN ~2015 with coronary artery stenting, anxiety and depression. POA reports that his baseline neurological status is he can not read or interpret numbers, he takes care of himself with all care and ADLS to include walking. The patient has been having abdominal pain for about a week or more, he was initially treated for UTI with Doxycycline. He came to the ER today as he had acute worsening of his abdominal pain in the lower quadrants. CT imaging was performed- which were interpreted with large intraperitoneal free air, inflamed descending sigmoid colon, evidence of diverticular disease as well as trace pneumomediastinum. He was taken urgently to the operating room, where he underwent exploratory laparotomy and was found with sigmoid perforation with purulent peritonitis and intra-abdominal abscess and appendectomy was also performed. He was reportedly left in discontinuity and abdomen was left open, covered with abthera wound vac currently at 125mm HG continuous suction. EBL was 50ml. He was given 1.5 liters of crystalloid during the case, required no vasopressor agents and is making urine on arrival to the ICU. He will remain intubated and sedated with Rass goal -2 and paralytics as needed for coughing or bucking the ventilator. He will remain intubated until surgical evaluation and closure of abdomen, whih at this time appears to be Wednesday. CODE: DNR/DNI- POA understands that code status will be reversed for surgical procedures as indicated. Allergies Allergy/AdvReac Type Severity Reaction Status Date / Time ibuprofen Allergy Intermediate UNABLE TO Unverified 09/03/17 09:52 TAKE DUE TO HEART MEDICATION, PER Home Medications Medication Instructions Recorded Confirmed Type ASPIRIN (ASPIRIN CHEWABLE) 81 mg PO DAILY ##0 09/03/17 11/05/23 History Bupropion (Wellbutrin Sr) 150 mg PO DAILY ##0 09/03/17 11/05/23 History Doxycycline (Monohydrate) 50 mg PO DAILY ##0 09/03/17 11/05/23 History (Doxycycline) Metoprolol Succinate (TOPROL XL) 25 mg PO DAILY ##0 09/03/17 11/05/23 History lisinopril 20 mg tablet 20 mg PO DAILY 11/05/23 11/05/23 History bupropion HCl 150 mg tablet,12 hr 150 mg PO BID 05/06/24 05/06/24 History sustained-release buspirone 10 mg tablet 10 mg PO TID 05/06/24 05/06/24 History morphine 60 mg tablet,extended 60 mg PO AMHS 05/06/24 05/06/24 History release nitrofurantoin 100 mg PO AMHS 05/06/24 05/06/24 History monohydrate/macrocrystals 100 mg capsule Patient History Medical History (Updated 05/06/24 @ 21:30 by OSVALDO Gillis) HLD (hyperlipidemia) Depression Anxiety Surgical History (Updated 05/06/24 @ 18:22 by David Greenfield MD) Hx of craniotomy Hx of right coronary artery stent placement Family History (Updated 05/06/24 @ 21:20 by OSVALDO Gillis) Other Family history unknown Social History Smoking Status: Never smoker Preferred Language: Urdu Feels Safe at Home: Yes Review of Systems Review of Systems: unable to perform secondary to intubation/sedation Physical Exam Physical Exam: PHYSICAL EXAM: General: intubated and sedated Head: Normocephalic, atraumatic Neuro: Intubated, sedated, pharmacologically paralyzed, Pupils PEERLA- Chest: equal rise and fall of the chest, no accessory muscle use, no heaves or thrills, decreased in bases- ETT advanced 2cm Cardiac: Regular rate and rhythm, telemetry reviewed- NSR no ectopy, skin warm dry, cap refill <3 seconds, peripheral pulses +2 no JVD, no murmur, no edema GI: open covered with wound vac, obese, softly distended : cardoza to gravity Skin: midline abdominal incision open as above, no rash or erythema Results & Data Results & Data Vital Signs (Past 12 Hours) Vital Signs Temp Pulse Pulse Resp BP BP Pulse Ox 05/06/24 20:40 36.1 C L 76 12 193/100 H 98 05/06/24 20:30 35.4 C L 76 16 167/98 H 100 05/06/24 20:20 35.2 C L 78 12 155/96 H 100 05/06/24 17:00 70 14 134/79 96 05/06/24 17:00 134/79 05/06/24 16:39 69 13 132/95 95 05/06/24 16:00 81 17 136/75 97 05/06/24 15:49 72 18 94 05/06/24 15:43 78 05/06/24 15:20 36.3 C L 87 17 130/91 94 O2 Del Method FiO2 05/06/24 20:40 Mechanical Vent 30 05/06/24 20:30 Mechanical Vent 30 05/06/24 20:20 Mechanical Vent 100 05/06/24 17:00 05/06/24 17:00 05/06/24 16:39 05/06/24 16:00 Room Air 05/06/24 15:49 Room Air 05/06/24 15:43 05/06/24 15:20 Room Air Laboratory Results Abnormal lab results 05/06/24 05/06/24 05/06/24 Range/Units 15:35 15:43 Unknown WBC 10.81 H (4.8-10.8) K/ul RDW Std Deviation 48.8 H (36.4-46.3) fL MPV 9.1 L (9.4-12.4) fL Neut # (Auto) 9.30 H (1.40-6.50) K/uL Lymph # (Auto) 0.68 L (1.20-3.40) K/uL Immature Gran # (Auto) 0.21 H (0.01-0.20) K/uL POC Potassium 5.1 H (3.3-5.0) mmol/L POC Anion Gap 13.0 L (16-25) mmol/L POC BUN 24 H (7-18) mg/dl BUN 24 H (6-23) mg/dl BUN/Creatinine Ratio 21.4 H (10-20) Glucose 106 H (70-99(Fasting)) mg/dl POC Glucose (other) 106 H (70-99) mg/dl Lipase 7 L (11-82) U/L Urine Appearance Cloudy A (Clear) Urine Protein 2+ H (Negative) Urine Bilirubin 1+ H (Negative) Ur Leukocyte Esterase Trace H (Negative) U Hyaline Cast (Auto) 11-20 H (0-2) /lpf U Epithel Cells (Auto) 6-10 H (0-2) /hpf Urine Mucus Present A (None Prsent) Diagnostic Findings Abdomen/Pelvis CT 05/06/24 15:29 CT SCAN OF THE ABDOMEN AND PELVIS WITH IV CONTRAST CLINICAL HISTORY: Lower abdominal pain. COMPARISON STUDY: No priors. TECHNIQUE: Following the IV administration of 120 cc of Optiray 320, CT scan of the abdomen and pelvis is performed from the lung bases to the proximal femora. Images are reviewed in the axial, sagittal, and coronal planes. IV contrast was administered without complication. A dose lowering technique was utilized adhering to the principles of ALARA. CT DOSE: 1676.25 mGy.cm FINDINGS: Lung bases: The heart is normal in size and without pericardial effusion. There is trace pneumomediastinum. The lung bases are clear negative dependent scarring/atelectasis. Liver: The contrast-enhanced liver is size and contour. Attenuation is diffusely diminished indicating steatosis. Fatty sparing is seen adjacent to the gallbladder fossa. There is no intrahepatic biliary ductal dilatation. The hepatic veins and portal veins are patent. Gallbladder: Unremarkable. Spleen: Normal in size and attenuation. Pancreas: Unremarkable. Adrenal glands: Unremarkable. Kidneys: The contrast enhanced kidneys are normal in size and without hydronephrosis. The kidneys enhance symmetrically. Abdominal vasculature: There is advanced atherosclerotic calcification and mild ectasia of the abdominal aorta. Bowel: There is moderate colonic fecal retention. No bowel obstruction is seen. There is moderate colonic diverticulosis without clear CT evidence of acute diverticulitis. There are thick-walled and inflamed loop of small bowel in the central lower abdomen with surrounding fluid seen on axial image #293. The appendix is well-visualized and normal. Peritoneum: There is a large volume of intraperitoneal free air. Interloop fluid is seen in the lower abdomen and there is trace free fluid in the pelvis. No organized fluid collection is seen to suggest abscess. There is evidence of prior ventral hernia repair. Lymphadenopathy: None. Pelvic viscera: The bladder, prostate, and seminal vesicles are normal as visualized. Skeletal structures: There is moderate lumbosacral spondylosis. Mild sclerotic changes seen in the sacroiliac joints. No lytic or blastic lesions are seen. IMPRESSION: 1. There is a large volume of intraperitoneal free air indicative of visceral perforation. Surgical evaluation is advised. 2. The site of perforation is not clearly delineated. 3. There are inflamed loops of small bowel in the central lower abdomen with surrounding fluid, as well as significant diverticular disease of the left colon. Although not definitive, one of these sites is favored as the site of perforation. 4. No bowel obstruction is seen. 5. No organized fluid collection is identified to suggest abscess. 6. Hepatic steatosis. 7. There is trace pneumomediastinum, likely related to intraperitoneal free air. 8. Additional findings as above. ACT 112: Negative or not required by law. Electronically signed by: Goyo Yun M.D. 05/06/2024 4:44 PM Medications Administered Morphine Sulfate (Morphine Sulfate 4 Mg/Ml 1 Ml Carp\Vial) 4 mg IV Q15M PRN PRN Reason: Pain Stop: 05/20/24 15:27 Last Admin: 05/06/24 15:41 Dose: 4 mg Documented By: CARLOS Discontinued Medications Sodium Chloride (Nss) 500 mls @ 999 mls/hr IV .Q31M STA Stop: 05/06/24 15:58 Last Infusion: 05/06/24 16:22 Dose: Infused Documented By: Admin: 05/06/24 15:41 Dose: 999 mls/hr Documented By: CARLOS Piperacillin Sod/Tazobactam Sod (Zosyn) 4.5 gm in 100 mls @ 200 mls/hr IV NOW ONE Stop: 05/06/24 16:56 Last Infusion: 05/06/24 17:28 Dose: Infused Documented By: Admin: 05/06/24 16:54 Dose: 200 mls/hr Documented By: CARLOS Ioversol (Optiray 320 125ml) 120 ml IV ONCE ONE Stop: 05/06/24 16:20 Last Admin: 05/06/24 16:19 Dose: 120 ml Documented By: GUEVARA Ondansetron HCl (Ondansetron Inj 2 Mg/Ml 2 Ml Vial) 4 mg IV NOW STA Stop: 05/06/24 15:29 Last Admin: 05/06/24 15:41 Dose: 4 mg Documented By: CARLOS Coding Level of Care Code 06719 CRITICAL CARE 1ST 30-74M Diagnoses Bowel perforation K63.1 On mechanically assisted ventilation Z99.11
[2024-05-06] MEDS ORDERED: PROPOFOL BOLUS FROM BAG IV PRN (21:23)
[2024-05-06] MEDS ORDERED: fentaNYL BOLUS from BAG IV PRN (21:23)
[2024-05-06] MEDS ORDERED: STAT IV Infusion **Titration per Protocol STA (21:23)
[2024-05-06 22:06] LABS: BUN Creatinine Ratio 25.9 (10-20); Calcium 9.1 mg/dl (8.6-10.3); Creatinine Clr Calc Pharmacy 139.6 ml/min; Est GFR (African American) 111.3 ml/min; Potassium 4.7 mmol/L (3.5-5.1)
[2024-05-06] MEDS: fentaNYL citrate 2,500 MCG/250 ML BAG IV SCH (22:10)
[2024-05-06] MEDS: propofoL 1,000 MG/100 ML VIAL IV SCH (22:10)
[2024-05-06] MEDS: LACTATED RINGER'S 1,000 ML IV SCH (22:11)
[2024-05-06] MEDS: fentaNYL citrate 2,500 MCG/250 ML BAG IV ONE (22:11)
[2024-05-06] MEDS: ARTIFICIAL TEARS OP OINT 3.5 GM TUBE OP SCH (22:11)
[2024-05-06] MEDS: PROPOFOL IV EMULSION 10 MG/ML 100 ML VIAL IV ONE (22:11)
[2024-05-06] MEDS: PIPERACILLIN/TAZOBACTAM 4.5 GM/100 ML BAG IV SCH (22:12)
[2024-05-06] MEDS: levETIRAcetam IV 500 MG in SODIUM CHLOR 0.9% MINI-B 100 ML IV SCH (22:12)
[2024-05-06 22:13] LABS: Basophils # (auto) 0.04 K/uL (0.00-0.20); Basophils % (auto) 0.9 %; Hematocrit (blood only) 44.5 % (42.0-52.0); Hemoglobin 14.5 g/dl (14.0-18.0); Immature Granulocytes # (auto) 0.09 K/uL (0.01-0.20); Lymphocytes # (auto) 0.33 K/uL (1.20-3.40); Lymphocytes % (auto) 7.4 %; Mean Corpuscular Hemoglobin 31.4 pg (25.0-34.0); Mean Corpuscular Hgb Conc 32.6 g/dL (32.0-36.0); Mean Corpuscular Volume 96.3 fL (80.0-100.0); Mean Platelet Volume 8.9 fL (9.4-12.4); Monocytes # (auto) 0.15 K/uL (0.11-0.59); Monocytes % (auto) 3.4 %; Neutrophils # (auto) 3.86 K/uL (1.40-6.50); Neutrophils % (auto) 86.3 %; Platelet Count 199 K/uL (130-400); RDW Coefficient of Variation 14.1 % (11.5-14.5); RDW Standard Deviation 50.4 fL (36.4-46.3); Red Blood Count 4.62 M/uL (4.70-6.10); White Blood Count 4.47 K/ul (4.8-10.8)
[2024-05-06] MEDS: CASPOFUNGIN 70 MG in SODIUM CHLORIDE 0.9% 250 ML IV STA (22:40)
[2024-05-07] MEDS: ICU Protocol for HYPERglycemia SCH (03:29)
[2024-05-07] MEDS: fentaNYL BOLUS from BAG IV PRN (03:51)
[2024-05-07 04:24] LABS: BUN Creatinine Ratio 18.4 (10-20); Calcium 8.7 mg/dl (8.6-10.3); Creatinine Clr Calc Pharmacy 121.1 ml/min; Est GFR (African American) 98.1 ml/min; Est GFR (Non-African American) 84.6 ml/min; Phosphorus 4.1 mg/dl (2.5-4.9); Potassium 4.4 mmol/L (3.5-5.1)
[2024-05-07 04:41] LABS: Basophils # (auto) 0.04 K/uL (0.00-0.20); Basophils % (auto) 0.6 %; Hematocrit (blood only) 40.9 % (42.0-52.0); Hemoglobin 13.2 g/dl (14.0-18.0); Immature Granulocytes # (auto) 0.12 K/uL (0.01-0.20); Immature Granulocytes % (auto) 1.9 %; Lymphocytes # (auto) 0.39 K/uL (1.20-3.40); Lymphocytes % (auto) 6.1 %; Mean Corpuscular Hemoglobin 31.4 pg (25.0-34.0); Mean Corpuscular Hgb Conc 32.3 g/dL (32.0-36.0); Mean Corpuscular Volume 97.1 fL (80.0-100.0); Mean Platelet Volume 9.1 fL (9.4-12.4); Monocytes # (auto) 0.26 K/uL (0.11-0.59); Monocytes % (auto) 4.1 %; Neutrophils % (auto) 87.3 %; Platelet Count 204 K/uL (130-400); RDW Coefficient of Variation 14.2 % (11.5-14.5); RDW Standard Deviation 51.3 fL (36.4-46.3); Red Blood Count 4.21 M/uL (4.70-6.10); White Blood Count 6.41 K/ul (4.8-10.8)
[2024-05-07] MEDS: HEPARIN SOD 5,000 UNIT/0.5 ML VIAL SQ SCH (05:53)
--- NOTE | 2024-05-07 05:57 | Surgery Progress Note ---
Date of Service May 07, 2024 Assessment & Plan (1) Pneumoperitoneum of unknown etiology: Plan: Patient is status post exploratory laparotomy with sigmoid colon resection secondary to sigmoid colon perforation on 05/06/2024 (postop day #1) CT scan on 05/06/2024 showed a large volume of intraperitoneal free air indicative of visceral perforation. Patient is to remain sedated and intubated today Continue wound VAC as applied to abdomen Plan is for patient to go back to operating room on 05/08/2024 for relook exploratory laparotomy with probable colostomy formation Continue antibiotics in the form of Zosyn Due to intra-abdominal abscess and peritonitis caspofungin has been initiated and should continue as well Blood cultures from 05/06/2024 have been sent and are pending Intra-abdominal cultures taken at time of initial surgery on 05/06/2024Gram stain showed many white blood cells with gram-positive cocci, gram-positive bacilli, and gram-negative bacilli; further culture identification and sensitivity is pending Patient has an underlying history of glioblastoma; continue Keppra Continue PPI for GI prophylaxis Continue to follow serial labs Subcutaneous heparin is in place for DVT prevention Admission and Anticipated Discharge Date Admission Date: May 06, 2024 Supervising Physician Co-Signing Physician Notes No acute events overnight Hemodynamically stable and making good urine His labs were reviewed Plan will be to take him back to the OR tomorrow for washout and colostomy creation Subjective Patient is currently intubated and sedated on ventilator in intensive care unit and therefore could not provide any subjective data I discussed with nurse attending to patient and she does not voice any concerns at this timeshe notes the patient has a low-grade temp of 37.6. Wound VAC is working appropriately. It is noted that urine output is adequate and patient has produced 575 cc since the OR. Labs completed this morning and a CBC revealed white blood cell count and platelet count are both normal hemoglobin and hematocrit are 13.2 and 40.9. Chemistry profile this morning shows sodium is 135 with a potassium of 4.4. BUN and creatinine are 18 and 0.9. Magnesium is noted to be 2.0. Lactic acid performed yesterday after operating room was nonelevated. Physical Exam Respiratory: Breath sounds are present bilaterally and aided with ventilator Gastrointestinal (Abdomen): Wound VAC is in place on abdomen and appears to be functioning appropriately. Abdomen does not feel firm or rigid. Results & Data Vital Signs (Past 12 Hours) Vital Signs Temp Pulse Pulse Resp BP BP Pulse Ox 05/07/24 05:00 86 16 133/91 100 05/07/24 04:00 37.6 C H 85 16 140/77 100 05/07/24 04:00 37.7 C H 82 16 140/77 100 05/07/24 04:00 05/07/24 03:30 37.6 C H 83 16 131/85 100 05/07/24 03:07 37.6 C H 84 16 136/81 100 05/07/24 03:00 37.5 C 84 16 136/81 100 05/07/24 02:33 82 16 135/76 99 05/07/24 02:15 37.4 C 83 16 100 05/07/24 02:00 85 16 100 05/07/24 02:00 37.4 C 83 16 135/76 100 05/07/24 01:30 37.2 C 81 16 150/81 H 100 05/07/24 01:00 37.2 C 77 16 147/83 H 100 05/07/24 01:00 37 C 71 16 100 05/07/24 00:30 37 C 78 16 142/84 H 100 05/07/24 00:00 37.2 C 80 16 147/83 H 100 05/07/24 00:00 05/07/24 00:00 81 05/06/24 23:55 37 C 78 16 145/87 H 100 05/06/24 23:54 36.9 C 78 16 145/87 H 100 05/06/24 23:45 36.7 C 74 16 141/82 H 100 05/06/24 23:35 36.7 C 74 16 148/86 H 100 05/06/24 23:32 76 16 100 05/06/24 23:20 36.9 C 16 158/86 H 100 05/06/24 23:00 37 C 16 100 05/06/24 23:00 36.8 C 71 16 141/90 H 100 05/06/24 22:50 36.7 C 76 16 145/92 H 100 05/06/24 22:45 36.7 C 76 16 154/87 H 100 05/06/24 22:35 36.7 C 74 16 151/87 H 100 05/06/24 22:15 36.5 C 76 16 154/94 H 100 05/06/24 22:00 36.6 C 76 16 100 05/06/24 21:55 36.4 C L 75 16 148/85 H 100 05/06/24 21:45 36.4 C L 76 16 155/88 H 100 05/06/24 21:25 36.1 C L 76 16 164/103 H 100 05/06/24 21:23 77 16 99 05/06/24 21:00 16 100 05/06/24 21:00 36.2 C L 76 16 168/99 H 100 05/06/24 20:40 36.1 C L 76 12 193/100 H 98 05/06/24 20:30 35.4 C L 76 16 167/98 H 100 05/06/24 20:20 05/06/24 20:20 35.2 C L 78 12 155/96 H 100 05/06/24 20:20 35.2 C L 78 12 155/96 H 100 O2 Del Method FiO2 05/07/24 05:00 Mechanical Vent 35 05/07/24 04:00 Mechanical Vent 35 05/07/24 04:00 Mechanical Vent 35 05/07/24 04:00 35 05/07/24 03:30 Mechanical Vent 35 05/07/24 03:07 Mechanical Vent 35 05/07/24 03:00 Mechanical Vent 35 05/07/24 02:33 Mechanical Vent 35 05/07/24 02:15 Mechanical Vent 35 05/07/24 02:00 35 05/07/24 02:00 Mechanical Vent 35 05/07/24 01:30 Mechanical Vent 35 05/07/24 01:00 Mechanical Vent 35 05/07/24 01:00 Mechanical Vent 35 05/07/24 00:30 Mechanical Vent 35 05/07/24 00:00 Mechanical Vent 35 05/07/24 00:00 35 05/07/24 00:00 05/06/24 23:55 Mechanical Vent 35 05/06/24 23:54 Mechanical Vent 35 05/06/24 23:45 Mechanical Vent 35 05/06/24 23:35 Mechanical Vent 35 05/06/24 23:32 35 05/06/24 23:20 Mechanical Vent 35 05/06/24 23:00 Mechanical Vent 35 05/06/24 23:00 Mechanical Vent 35 05/06/24 22:50 Mechanical Vent 35 05/06/24 22:45 Mechanical Vent 35 05/06/24 22:35 Mechanical Vent 35 05/06/24 22:15 Mechanical Vent 35 05/06/24 22:00 Mechanical Vent 35 05/06/24 21:55 Mechanical Vent 35 05/06/24 21:45 Mechanical Vent 35 05/06/24 21:25 Mechanical Vent 35 05/06/24 21:23 50 05/06/24 21:00 Mechanical Vent 35 05/06/24 21:00 Mechanical Vent 35 05/06/24 20:40 Mechanical Vent 30 05/06/24 20:30 Mechanical Vent 30 05/06/24 20:20 Mechanical Vent 35 05/06/24 20:20 Mechanical Vent 100 05/06/24 20:20 Mechanical Vent 100 PG Care Time/CCT Total # of Minutes Spent Total Time Spent with Patient: Total time spent is greater than 50% in coordination of care (as documented) at patient's floor/unit and/or counseling patient: Coding Level of Care Code 80051 Post Operative Follow-Up Diagnoses Pneumoperitoneum of unknown etiology K66.8
--- NOTE | 2024-05-07 08:03 | XRay Report ---
XR chest 1V portable HISTORY: eval lines and tubes and lung parks while intubat COMPARISON: Chest 05/06/2024. FINDINGS: The endotracheal tube terminates 7.6 cm from the courtney. Nasogastric tube terminates below the diaphragm. No pneumothorax. Right paratracheal thickening remains unchanged. The pneumomediastinu m and pneumoperitoneum is again noted. Left basilar linear densities persist and favor subsegmental a telectasis. IMPRESSION: 1. Endotracheal tube terminates 7.6 cm from the courtney. This should be advanced by 2 to 3 cm. 2. The pneumomediastinum and pneumoperitoneum are again noted. ACT 112: Negative or not required by law. Electronically signed by: Bobby Penn M.D. 05/07/2024 8:01 AM
--- NOTE | 2024-05-07 08:03 | XRay Report ---
XR chest 1V portable HISTORY: eval ETT and OGT placement post OR COMPARISON: Abdomen and pelvis CT 05/06/2024. FINDINGS: Endotracheal tube terminates 7.3 cm from the courtney. Nasogastric tube terminates below the diaphragm. There are low lung volumes. The heart is mildly enlarged. Bibasilar linear densities favor subsegmental atelectasis. No pneumothorax. Pneumoperitoneum and pneumomediastinum again noted. IMPRESSION: Endotracheal tube terminates 7.3 cm from the courtney. This should be advanced by approximately 2-3 cm. Pneumomediastinum and pneumoperitoneum again noted. ACT 112: Negative or not required by law. Electronically signed by: Bobby Penn M.D. 05/07/2024 8:01 AM
--- NOTE | 2024-05-07 08:54 | Critical Care Progress Note ---
Date of Service May 07, 2024 Assessment & Plan (1) Bowel perforation: (2) On mechanically assisted ventilation: Plan Reason Critically Ill: 58 YOM presents to ER with worsening abdominal pain found to have peritonitis and free air. Taken for emergent ex-lap found with purulent fluid and abscess, left open and intubated on mechanical ventilation. Neuro - Sedation for mechanical ventilation, Hx Glioblastoma, Hx Anxiety and Depression CAM ICU: MINDY - With his open abdomen will set DAVID for -3- fentanyl and propofol - for any coughing or desynchrony with vent will pharmacologically paralyze with bolus dosing of Vecuronium, if requiring repeat doses frequently transition to infusion of likely nimbex - sedation and SBT when appropriate from a surgical perspective - Glioblastoma with history of resection - Reportedly left temporal WHO grade IV - MRI 11/13 per OSH records- left tumor resection with mild residual tumor and small right frontal meningioma - undergoing palliative chemo/radiation- Temodar for 6 months then Optitune device and on Lomustine 40mg orally at home - Keppra 500mg PO q12 will be changed to IV until able to take PO for prophylaxis - Hold Decadron 2mg at this time - Anxiety/Depression- Hold home agents of Buspirone and Wellbutrin Cardiac - CAD, hx of stents and OK, HTN, HLD - Hold Metoprolol at this time until hemodynamics are proven stable, consider IV dosing in Am - Hold statin until able to tolerate PO - Hold ASA Respiratory - Intubation requiring mechanical sedation, ALEKSANDR with CPAP - Continue with ARDSnet ventilation strategy- no acute issues at this time - follow EtCO2 and SPo2- ABG as indicated - extubation when surgical corrections are deemed stable GI - bowel perforation with purulent peritonitis and abscess - Probable return to operating room tomorrow - Maintain wound VAC - see ID section below for abx RENAL/LYTES - No acute needs at this time - follow renal indicies- electrolytes per ICU protocol - LR at 120ml/hour - Owens per gravity while intubated - remove once extubated ENDO - No acute needs - ICU hyper/hypoglycemic protocols HEME - Glioblastoma as above - hold agents for now ID - Peritonitis in setting of bowel perforation with abscess noted - Blood cultures obtained in ICU after abx therapy - Will continue Zosyn and caspofungin - As he is immunocompromised with active chemo/radiation therapy -Abdominal wound culture pending - Follow closely LINES/IV ACCESS - PIV x2, ETT, Owens, Continue use of these lines DVT PROPHYLAXIS - SCDS, Heparin 5000 units subq q 8 h DISPO: ICU while intubated and sedated CODE STATUS: DNR/DNI in event of cardiac arrest. Patient with significant malignancy history undergoing therapy, this has been felt to be possible correctable event: Pneumoperitoneum. Continue current level of care however patient would not want heroics in event of cardiac arrest I have personally spent 35 minutes of critical care time in the direct management of this patient. This is a life/limb threatening event. This includes time spent evaluating patient, direct bedside care, chart review, placing orders, interpretation of diagnostic studies, discussion with consultants, patient, and family members, as well as other required patient management activities. This time is exclusive of all separately billable procedures, and teaching time and separate from and in addition to any other critical care service time. Admission and Anticipated Discharge Date Admission Date: May 06, 2024 Subjective No overnight events Review of Systems Review of Systems: Unobtainable due to endotracheal tube Physical Exam Physical Exam: General: Sedated. nontoxic. Skin: Warm, dry, Head: Atraumatic Ears, nose, mouth and throat: airway obscured by endotracheal tube Cardiovascular: Normal peripheral perfusion Respiratory: Ventilator settings reviewed Gastrointestinal: Non distended, wound VAC in place Musculoskeletal: No deformity Results & Data Results & Data Vital Signs (Past 12 Hours) Vital Signs Temp Pulse Pulse Resp BP BP Pulse Ox 05/07/24 07:46 79 17 99 05/07/24 06:06 37.8 C H 85 16 100 05/07/24 06:00 37.8 C H 82 16 153/89 H 100 05/07/24 05:30 37.7 C H 84 16 137/96 100 05/07/24 05:00 37.8 C H 86 16 133/91 100 05/07/24 05:00 86 16 133/91 100 05/07/24 04:30 37.7 C H 81 16 152/88 H 99 05/07/24 04:00 37.6 C H 85 16 140/77 100 05/07/24 04:00 37.7 C H 82 16 140/77 100 05/07/24 04:00 05/07/24 03:30 37.6 C H 83 16 131/85 100 05/07/24 03:07 37.6 C H 84 16 136/81 100 05/07/24 03:00 37.5 C 84 16 136/81 100 05/07/24 02:33 82 16 135/76 99 05/07/24 02:15 37.4 C 83 16 100 05/07/24 02:00 85 16 100 05/07/24 02:00 37.4 C 83 16 135/76 100 05/07/24 01:30 37.2 C 81 16 150/81 H 100 05/07/24 01:00 37.2 C 77 16 147/83 H 100 05/07/24 01:00 37 C 71 16 100 05/07/24 00:30 37 C 78 16 142/84 H 100 05/07/24 00:00 37.2 C 80 16 147/83 H 100 05/07/24 00:00 05/07/24 00:00 81 05/06/24 23:55 37 C 78 16 145/87 H 100 05/06/24 23:54 36.9 C 78 16 145/87 H 100 05/06/24 23:45 36.7 C 74 16 141/82 H 100 05/06/24 23:35 36.7 C 74 16 148/86 H 100 05/06/24 23:32 76 16 100 05/06/24 23:20 36.9 C 16 158/86 H 100 05/06/24 23:00 37 C 16 100 05/06/24 23:00 36.8 C 71 16 141/90 H 100 05/06/24 22:50 36.7 C 76 16 145/92 H 100 05/06/24 22:45 36.7 C 76 16 154/87 H 100 05/06/24 22:35 36.7 C 74 16 151/87 H 100 05/06/24 22:15 36.5 C 76 16 154/94 H 100 05/06/24 22:00 36.6 C 76 16 100 05/06/24 21:55 36.4 C L 75 16 148/85 H 100 05/06/24 21:45 36.4 C L 76 16 155/88 H 100 05/06/24 21:25 36.1 C L 76 16 164/103 H 100 05/06/24 21:23 77 16 99 05/06/24 21:00 16 100 05/06/24 21:00 36.2 C L 76 16 168/99 H 100 O2 Del Method FiO2 05/07/24 07:46 35 05/07/24 06:06 Mechanical Vent 35 05/07/24 06:00 Mechanical Vent 35 05/07/24 05:30 Mechanical Vent 35 05/07/24 05:00 Mechanical Vent 35 05/07/24 05:00 Mechanical Vent 35 05/07/24 04:30 Mechanical Vent 35 05/07/24 04:00 Mechanical Vent 35 05/07/24 04:00 Mechanical Vent 35 05/07/24 04:00 35 05/07/24 03:30 Mechanical Vent 35 05/07/24 03:07 Mechanical Vent 35 05/07/24 03:00 Mechanical Vent 35 05/07/24 02:33 Mechanical Vent 35 05/07/24 02:15 Mechanical Vent 35 05/07/24 02:00 35 05/07/24 02:00 Mechanical Vent 35 05/07/24 01:30 Mechanical Vent 35 05/07/24 01:00 Mechanical Vent 35 05/07/24 01:00 Mechanical Vent 35 05/07/24 00:30 Mechanical Vent 35 05/07/24 00:00 Mechanical Vent 35 05/07/24 00:00 35 05/07/24 00:00 05/06/24 23:55 Mechanical Vent 35 05/06/24 23:54 Mechanical Vent 35 05/06/24 23:45 Mechanical Vent 35 05/06/24 23:35 Mechanical Vent 35 05/06/24 23:32 35 05/06/24 23:20 Mechanical Vent 35 05/06/24 23:00 Mechanical Vent 35 05/06/24 23:00 Mechanical Vent 35 05/06/24 22:50 Mechanical Vent 35 05/06/24 22:45 Mechanical Vent 35 05/06/24 22:35 Mechanical Vent 35 05/06/24 22:15 Mechanical Vent 35 05/06/24 22:00 Mechanical Vent 35 05/06/24 21:55 Mechanical Vent 35 05/06/24 21:45 Mechanical Vent 35 05/06/24 21:25 Mechanical Vent 35 05/06/24 21:23 50 05/06/24 21:00 Mechanical Vent 35 05/06/24 21:00 Mechanical Vent 35 Critical Care Results & Data Vital Signs (Past 12 Hours) Vital Signs Temp Pulse Pulse Resp BP BP Pulse Ox 05/07/24 07:46 79 17 99 05/07/24 06:06 37.8 C H 85 16 100 05/07/24 06:00 37.8 C H 82 16 153/89 H 100 05/07/24 05:30 37.7 C H 84 16 137/96 100 05/07/24 05:00 37.8 C H 86 16 133/91 100 05/07/24 05:00 86 16 133/91 100 05/07/24 04:30 37.7 C H 81 16 152/88 H 99 05/07/24 04:00 37.6 C H 85 16 140/77 100 05/07/24 04:00 37.7 C H 82 16 140/77 100 05/07/24 04:00 05/07/24 03:30 37.6 C H 83 16 131/85 100 05/07/24 03:07 37.6 C H 84 16 136/81 100 05/07/24 03:00 37.5 C 84 16 136/81 100 05/07/24 02:33 82 16 135/76 99 05/07/24 02:15 37.4 C 83 16 100 05/07/24 02:00 85 16 100 05/07/24 02:00 37.4 C 83 16 135/76 100 05/07/24 01:30 37.2 C 81 16 150/81 H 100 05/07/24 01:00 37.2 C 77 16 147/83 H 100 05/07/24 01:00 37 C 71 16 100 05/07/24 00:30 37 C 78 16 142/84 H 100 05/07/24 00:00 37.2 C 80 16 147/83 H 100 05/07/24 00:00 05/07/24 00:00 81 05/06/24 23:55 37 C 78 16 145/87 H 100 05/06/24 23:54 36.9 C 78 16 145/87 H 100 05/06/24 23:45 36.7 C 74 16 141/82 H 100 05/06/24 23:35 36.7 C 74 16 148/86 H 100 05/06/24 23:32 76 16 100 05/06/24 23:20 36.9 C 16 158/86 H 100 05/06/24 23:00 37 C 16 100 05/06/24 23:00 36.8 C 71 16 141/90 H 100 05/06/24 22:50 36.7 C 76 16 145/92 H 100 05/06/24 22:45 36.7 C 76 16 154/87 H 100 05/06/24 22:35 36.7 C 74 16 151/87 H 100 05/06/24 22:15 36.5 C 76 16 154/94 H 100 05/06/24 22:00 36.6 C 76 16 100 05/06/24 21:55 36.4 C L 75 16 148/85 H 100 05/06/24 21:45 36.4 C L 76 16 155/88 H 100 05/06/24 21:25 36.1 C L 76 16 164/103 H 100 05/06/24 21:23 77 16 99 05/06/24 21:00 16 100 05/06/24 21:00 36.2 C L 76 16 168/99 H 100 O2 Del Method FiO2 05/07/24 07:46 35 05/07/24 06:06 Mechanical Vent 35 05/07/24 06:00 Mechanical Vent 35 05/07/24 05:30 Mechanical Vent 35 05/07/24 05:00 Mechanical Vent 35 05/07/24 05:00 Mechanical Vent 35 05/07/24 04:30 Mechanical Vent 35 05/07/24 04:00 Mechanical Vent 35 05/07/24 04:00 Mechanical Vent 35 05/07/24 04:00 35 05/07/24 03:30 Mechanical Vent 35 05/07/24 03:07 Mechanical Vent 35 05/07/24 03:00 Mechanical Vent 35 05/07/24 02:33 Mechanical Vent 35 05/07/24 02:15 Mechanical Vent 35 05/07/24 02:00 35 05/07/24 02:00 Mechanical Vent 35 05/07/24 01:30 Mechanical Vent 35 05/07/24 01:00 Mechanical Vent 35 05/07/24 01:00 Mechanical Vent 35 05/07/24 00:30 Mechanical Vent 35 05/07/24 00:00 Mechanical Vent 35 05/07/24 00:00 35 05/07/24 00:00 05/06/24 23:55 Mechanical Vent 35 05/06/24 23:54 Mechanical Vent 35 05/06/24 23:45 Mechanical Vent 35 05/06/24 23:35 Mechanical Vent 35 05/06/24 23:32 35 05/06/24 23:20 Mechanical Vent 35 05/06/24 23:00 Mechanical Vent 35 05/06/24 23:00 Mechanical Vent 35 05/06/24 22:50 Mechanical Vent 35 05/06/24 22:45 Mechanical Vent 35 05/06/24 22:35 Mechanical Vent 35 05/06/24 22:15 Mechanical Vent 35 05/06/24 22:00 Mechanical Vent 35 05/06/24 21:55 Mechanical Vent 35 05/06/24 21:45 Mechanical Vent 35 05/06/24 21:25 Mechanical Vent 35 05/06/24 21:23 50 05/06/24 21:00 Mechanical Vent 35 05/06/24 21:00 Mechanical Vent 35 Lab & Micro Results (Past 24 Hours) RBC 4.21 M/uL (4.70-6.10) L 05/07/24 WBC 6.41 K/ul (4.8-10.8) 05/07/24 Hgb 13.2 g/dl (14.0-18.0) L 05/07/24 Hct 40.9 % (42.0-52.0) L 05/07/24 MCV 97.1 fL (80.0-100.0) 05/07/24 MCH 31.4 pg (25.0-34.0) 05/07/24 MCHC 32.3 g/dL (32.0-36.0) 05/07/24 RDW Standard Deviation 51.3 fL (36.4-46.3) H 05/07/24 RDW Coefficient of Variation 14.2 % (11.5-14.5) 05/07/24 Plt Count 204 K/uL (130-400) 05/07/24 MPV 9.1 fL (9.4-12.4) L 05/07/24 Neutrophils (%) (Auto) 87.3 % 05/07/24 Lymphocytes (%) (Auto) 6.1 % 05/07/24 Monocytes # (Auto) 0.26 K/uL (0.11-0.59) 05/07/24 Eosinophils # (Auto) 0.00 K/uL (0.00-0.50) 05/07/24 Immature Granulocyte % (Auto) 1.9 % 05/07/24 Neutrophils # (Auto) 5.60 K/uL (1.40-6.50) 05/07/24 Lymphocytes # (Auto) 0.39 K/uL (1.20-3.40) L 05/07/24 Monocytes # (Auto) 0.26 K/uL (0.11-0.59) 05/07/24 Eosinophils # (Auto) 0.00 K/uL (0.00-0.50) 05/07/24 Basophils # (Auto) 0.04 K/uL (0.00-0.20) 05/07/24 Immature Granulocyte # (Auto) 0.12 K/uL (0.01-0.20) 4 Na 135 mmol/L (136-145) L 05/07/24 K 4.4 mmol/L (3.5-5.1) 05/07/24 Cl 99 mmol/L (98-107) 05/07/24 CO2 29 mmol/L (21-32) 05/07/24 Anion Gap 7 (3-11) 05/07/24 BUN 18 mg/dl (6-23) 05/07/24 Creatinine 0.98 mg/dl (0.6-1.4) 05/07/24 Estimated GFR ( Amer) 98.1 ml/min 05/07/24 Estimated GFR (Non-Af Amer) 84.6 ml/min 05/07/24 BUN/Creatinine Ratio 18.4 (10-20) 05/07/24 Glu 151 mg/dl (70-99(Fasting)) H 05/07/24 Ca 8.7 mg/dl (8.6-10.3) 05/07/24 Phosphorus Level 4.1 mg/dl (2.5-4.9) 05/07/24 Total Bilirubin 0.6 mg/dl (0.2-1.0) 05/06/24 AST 18 U/L (13-39) 05/06/24 ALT 26 U/L (7-52) 05/06/24 Alkaline Phosphatase 75 U/L (34-104) 05/06/24 TP 7.4 gm/dl (6.0-8.3) 05/06/24 Albumin 3.7 gm/dl (3.4-5.0) 05/06/24 Globulin 3.7 gm/dl (2.5-4.0) 05/06/24 Albumin/Globulin Ratio 1.0 (0.9-2) 05/06/24 Mg 2.0 mg/dl (1.7-2.4) 05/07/24 03:50 Calcium Level 8.7 mg/dl (8.6-10.3) 05/07/24 03:50 Microbiology 05/06/24 Unknown Gram Stain - Final Abdomen Diagnostic Findings (Past 24 Hours) Abdomen/Pelvis CT 05/06/24 15:29 CT SCAN OF THE ABDOMEN AND PELVIS WITH IV CONTRAST CLINICAL HISTORY: Lower abdominal pain. COMPARISON STUDY: No priors. TECHNIQUE: Following the IV administration of 120 cc of Optiray 320, CT scan of the abdomen and pelvis is performed from the lung bases to the proximal femora. Images are reviewed in the axial, sagittal, and coronal planes. IV contrast was administered without complication. A dose lowering technique was utilized adhering to the principles of ALARA. CT DOSE: 1676.25 mGy.cm FINDINGS: Lung bases: The heart is normal in size and without pericardial effusion. There is trace pneumomediastinum. The lung bases are clear negative dependent scarring/atelectasis. Liver: The contrast-enhanced liver is size and contour. Attenuation is diffusely diminished indicating steatosis. Fatty sparing is seen adjacent to the gallbladder fossa. There is no intrahepatic biliary ductal dilatation. The hepatic veins and portal veins are patent. Gallbladder: Unremarkable. Spleen: Normal in size and attenuation. Pancreas: Unremarkable. Adrenal glands: Unremarkable. Kidneys: The contrast enhanced kidneys are normal in size and without hydronephrosis. The kidneys enhance symmetrically. Abdominal vasculature: There is advanced atherosclerotic calcification and mild ectasia of the abdominal aorta. Bowel: There is moderate colonic fecal retention. No bowel obstruction is seen. There is moderate colonic diverticulosis without clear CT evidence of acute diverticulitis. There are thick-walled and inflamed loop of small bowel in the central lower abdomen with surrounding fluid seen on axial image #293. The appendix is well-visualized and normal. Peritoneum: There is a large volume of intraperitoneal free air. Interloop fluid is seen in the lower abdomen and there is trace free fluid in the pelvis. No organized fluid collection is seen to suggest abscess. There is evidence of prior ventral hernia repair. Lymphadenopathy: None. Pelvic viscera: The bladder, prostate, and seminal vesicles are normal as visualized. Skeletal structures: There is moderate lumbosacral spondylosis. Mild sclerotic changes seen in the sacroiliac joints. No lytic or blastic lesions are seen. IMPRESSION: 1. There is a large volume of intraperitoneal free air indicative of visceral perforation. Surgical evaluation is advised. 2. The site of perforation is not clearly delineated. 3. There are inflamed loops of small bowel in the central lower abdomen with surrounding fluid, as well as significant diverticular disease of the left colon. Although not definitive, one of these sites is favored as the site of perforation. 4. No bowel obstruction is seen. 5. No organized fluid collection is identified to suggest abscess. 6. Hepatic steatosis. 7. There is trace pneumomediastinum, likely related to intraperitoneal free air. 8. Additional findings as above. ACT 112: Negative or not required by law. Electronically signed by: Goyo Yun M.D. 05/06/2024 4:44 PM Chest X-Ray 05/06/24 20:25 XR chest 1V portable HISTORY: eval ETT and OGT placement post OR COMPARISON: Abdomen and pelvis CT 05/06/2024. FINDINGS: Endotracheal tube terminates 7.3 cm from the courtney. Nasogastric tube terminates below the diaphragm. There are low lung volumes. The heart is mildly enlarged. Bibasilar linear densities favor subsegmental atelectasis. No pneumothorax. Pneumoperitoneum and pneumomediastinum again noted. IMPRESSION: Endotracheal tube terminates 7.3 cm from the courtney. This should be advanced by approximately 2-3 cm. Pneumomediastinum and pneumoperitoneum again noted. ACT 112: Negative or not required by law. Electronically signed by: Bobby Penn M.D. 05/07/2024 8:01 AM Chest X-Ray 05/07/24 06:00 XR chest 1V portable HISTORY: eval lines and tubes and lung parks while intubat COMPARISON: Chest 05/06/2024. FINDINGS: The endotracheal tube terminates 7.6 cm from the courtney. Nasogastric tube terminates below the diaphragm. No pneumothorax. Right paratracheal thickening remains unchanged. The pneumomediastinum and pneumoperitoneum is again noted. Left basilar linear densities persist and favor subsegmental atelectasis. IMPRESSION: 1. Endotracheal tube terminates 7.6 cm from the courtney. This should be advanced by 2 to 3 cm. 2. The pneumomediastinum and pneumoperitoneum are again noted. ACT 112: Negative or not required by law. Electronically signed by: Bobby Penn M.D. 05/07/2024 8:01 AM I & O Totals 24 Hours 05/06/24 05/07/24 05/08/24 06:59 06:59 06:59 Intake Total 2144.316 / 2144.316 129.434 / 129.434 Output Total 1075 / 1075 Balance 1069.316 / 1069.316 129.434 / 129.434 Cumulative 05/06/24 15:19 thru 05/07/24 07:20 Intake Total 2273.750 Output Total 1075 Balance 1198.750 RT Ventilator Mngmt (Last Documented) Ventilator Ordered Settings Ventilator Support Mode Assist Control 05/07/24 07:46 Respiratory Rate 17 05/07/24 07:46 Ventilator Tidal Volume 490 05/07/24 07:46 Setting Minute Ventilation 8.1 05/07/24 07:46 Positive End Expiratory 5 05/07/24 07:46 Pressure Fraction of Inspired Oxygen 35 05/07/24 07:46 Ventilator - PT Measurements Respiratory Rate 17 Exhaled Tidal Volume 490 Minute Ventilation 8.1 Peak Inspiratory Airway 16 Pressure Plateau Pressure 13 Respiratory Cycle Inspiratory: 1:2.8 Expiratory Ratio Inspiratory Phase Time 1.0 End-Tidal CO2 38 Static Lung Compliance 61.25 Dynamic Lung Compliance 44.55 Normal Static Lung Compliance 48.00 Coding Level of Care Code 37392 CRITICAL CARE 1ST 30-74M Diagnoses Bowel perforation K63.1 On mechanically assisted ventilation Z99.11
[2024-05-07] MEDS: PANTOprazole 40 MG in SYRINGE 0 ML IV SCH (10:33)
--- NOTE | 2024-05-07 12:02 | Electrocardiogram Report ---
Test Reason : Blood Pressure : */* mmHG Vent. Rate : 77 BPM Atrial Rate : 77 BPM P-R Int : 180 ms QRS Dur : 98 ms QT Int : 418 ms P-R-T Axes : 60 8 49 degrees QTcB Int : 473 ms Normal sinus rhythm Possible Old Inferior infarct (cited on or before 05-Nov-2023) Nonspecific T wave abnormality Septal leads Abnormal ECG When compared with ECG of 05-Nov-2023 16:43, Nonspecific T wave abnormality Septal leads now present Confirmed by Issa Quiles ([id number]) on 05/07/2024 12:02:26 PM Referred By: REFERRED SELF Confirmed By: Issa Quiles
[2024-05-07] MEDS: PROPOFOL BOLUS FROM BAG IV PRN (14:10)
[2024-05-07] MEDS: ACETAMINOPHEN 1,000 MG/100 ML VIAL IV PRN (15:23)
[2024-05-07] MEDS: CASPOFUNGIN 50 MG in SODIUM CHLORIDE 0.9% 250 ML IV SCH (21:28)
[2024-05-08 04:19] LABS: Hematocrit (blood only) 35.8 % (42.0-52.0); Hemoglobin 11.4 g/dl (14.0-18.0); Mean Corpuscular Hemoglobin 31.1 pg (25.0-34.0); Mean Corpuscular Hgb Conc 31.8 g/dL (32.0-36.0); Mean Corpuscular Volume 97.8 fL (80.0-100.0); Mean Platelet Volume 9.2 fL (9.4-12.4); Platelet Count 169 K/uL (130-400); RDW Standard Deviation 50.9 fL (36.4-46.3); Red Blood Count 3.66 M/uL (4.70-6.10); White Blood Count 5.28 K/ul (4.8-10.8)
[2024-05-08 04:24] LABS: BUN Creatinine Ratio 17.1 (10-20); Calcium 8.4 mg/dl (8.6-10.3); Creatinine Clr Calc Pharmacy 144.1 ml/min; Est GFR (Non-African American) 97.5 ml/min; Magnesium 2.3 mg/dl (1.7-2.4); Potassium 4.3 mmol/L (3.5-5.1)
[2024-05-08 04:39] LABS: Basophils # (auto) 0.01 K/uL (0.00-0.20); Basophils % (auto) 0.2 %; Eosinophils # (auto) 0.01 K/uL (0.00-0.50); Eosinophils % (auto) 0.2 %; Immature Granulocytes # (auto) 0.36 K/uL (0.01-0.20); Immature Granulocytes % (auto) 6.8 %; Lymphocytes # (auto) 0.75 K/uL (1.20-3.40); Lymphocytes % (auto) 14.2 %; Monocytes # (auto) 0.28 K/uL (0.11-0.59); Monocytes % (auto) 5.3 %; Neutrophils # (auto) 3.87 K/uL (1.40-6.50); Neutrophils % (auto) 73.3 %
[2024-05-08] MEDS ORDERED: fentaNYL citrate PF 100 MCG/2 ML VIAL ONE (06:32)
[2024-05-08] MEDS ORDERED: ONDANSETRON INJ 2 MG/ML 2 ML VIAL ONE (06:32)
[2024-05-08] MEDS ORDERED: ROCURONIUM BROMIDE 10 MG/ML 5 ML VIAL IV ONE ×3 (06:32→13:36)
[2024-05-08] MEDS ORDERED: PROPOFOL IV EMULSION 10 MG/ML 20 ML VIAL IV ONE ×2 (06:32→13:35)
[2024-05-08] MEDS ORDERED: MIDAZOLAM HCL 1 MG/ML 2ML VIAL ONE ×2 (06:32→13:34)
--- NOTE | 2024-05-08 07:02 | XRay Report ---
XR chest 1V portable CLINICAL HISTORY: eval lines and tubes and lung parks while intubat TECHNIQUE: Single frontal radiograph of the chest was obtained. Comparison: Comparison is made to chest radiograph 06/07/2024 FINDINGS: Lines and tubes are stable. Cardiomegaly is noted. There is suggestion of previously noted pneumomedi astinum and pneumoperitoneum. Lungs are underinflated but clear. No evidence of pleural effusion or p neumothorax. IMPRESSION: Stable exam. Pneumomediastinum and pneumoperitoneum are partially visualized. Stable lines and tubes. ACT 112: Negative or not required by law. Electronically signed by: Alonso Guevara M.D. 05/08/2024 7:00 AM
--- NOTE | 2024-05-08 07:44 | Critical Care Progress Note ---
Date of Service May 08, 2024 Assessment & Plan (1) Glioblastoma: (2) Bowel perforation: (3) Right lower quadrant abdominal pain: (4) Pneumoperitoneum of unknown etiology: (5) Hypertension: (6) CAD (coronary artery disease): (7) On mechanically assisted ventilation: Plan Reason Critically Ill: 58 YOM presents to ER with worsening abdominal pain found to have peritonitis and free air. Taken for emergent ex-lap found with purulent fluid and abscess, left open and intubated on mechanical ventilation. 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 - MRI 11/13 per OSH records- left tumor resection with mild residual tumor and small right frontal meningioma - undergoing palliative chemo/radiation- Temodar for 6 months then Optitune device and on Lomustine 40mg orally at home - Keppra 500mg PO q12 for prophylaxis - Hold Decadron 2mg at this time - Anxiety/Depression- Hold home agents of Buspirone and Wellbutrin Cardiac - CAD, hx of stents and DE, HTN, HLD On metoprolol, statin as well as aspirin at home Respiratory - Intubation requiring mechanical sedation, ALEKSANDR with CPAP -- VDRF Likely secondary to surgical procedure Continue with ventilatory support Keep RASS -1 Daily sedation holidays and SBT's Chlorhexidine mouthwash GI - bowel perforation with purulent peritonitis and abscess -S/p OR 05/06/2024 - Maintain wound VAC -Surgery on board RENAL/LYTES - No acute needs at this time -Monitor BUNs/creatinine - Owens per gravity while intubated - remove once extubated ENDO - No acute needs - ICU hyper/hypoglycemic protocols HEME - Glioblastoma as above - hold agents for now ID - Peritonitis in setting of bowel perforation with abscess noted - Blood cultures obtained in ICU after abx therapy -Abdominal culture growing E. coli which is pansensitive - As he is immunocompromised with active chemo/radiation therapy - Currently on Zosyn and caspofungin CODE STATUS: DNR/DNI in event of cardiac arrest. Patient with significant malignancy history undergoing therapy, this has been felt to be possible correctable event: Pneumoperitoneum. Continue current level of care however patient would not want heroics in event of cardiac arrest --Prophylaxis VTE: Heparin GI: Pantoprazole Lines: Peripherals, Owens Diet: N.p.o. Plan: In/out: +2 L, urine output 2605, +3.2 L since coming to the hospital Decrease the rate of LR to 100 mL/h Probably will discontinue caspofungin after today's dose. Continue with Zosyn. Plan is tentatively to take the patient back to the OR to close the incision. I have personally spent 38 minutes of critical care time in the direct management of this patient. This is a life/limb threatening event. This includes time spent evaluating patient, direct bedside care, chart review, placing orders, interpretation of diagnostic studies, discussion with consultants, patient, and family members, as well as other required patient management activities. This time is exclusive of all separately billable procedures, and teaching time and separate from and in addition to any other critical care service time. Admission and Anticipated Discharge Date Admission Date: May 06, 2024 Subjective Patient seen and examined at bedside. No acute distress, no adverse events overnight He was on 125 of fentanyl and 30 of propofol Systolic blood pressure was in the 160s. He was RASS -1 Moving all his extremities spontaneously Review of Systems 2 Review of Systems: Unobtainable due to endotracheal tube Physical Exam 2 Physical Exam: Constitutional: No acute distress HEENT: PERRLA Respiratory system: Decreased air entry bilaterally, no wheeze, no rhonchi, minimal crackles bilateral lower lobes CVS: S1-S2 positive, no murmurs or gallops Abdomen: Soft, nontender, nondistended, decreased bowel sounds x4, wound VAC in place Extremities: +2 pulses bilaterally radialis/ dorsalis pedis, no cyanosis, no edema Neuro: Intubated, sedated Psych: Unable to assess G/U: Positive Owens Skin: no rashes, warm and dry Lymphatic: no cervical or axillary lymphadenopathy Results & Data Results & Data Vital Signs (Past 12 Hours) Vital Signs Temp Pulse Resp BP Pulse Ox O2 Del Method FiO2 05/08/24 06:32 36.4 C L 54 L 16 100 05/08/24 06:30 164/88 H 05/08/24 06:30 164/88 H 05/08/24 06:24 36.4 C L 52 L 16 99 05/08/24 06:21 36.4 C L 53 L 16 99 05/08/24 06:00 145/81 H 05/08/24 06:00 145/81 H 05/08/24 05:57 36.4 C L 54 L 16 100 05/08/24 05:33 36.4 C L 52 L 16 100 05/08/24 05:30 143/85 H 05/08/24 05:30 143/85 H 05/08/24 05:12 37.1 C 55 L 14 100 05/08/24 05:00 37.0 C 52 L 13 100 05/08/24 05:00 166/86 H 05/08/24 05:00 166/86 H 05/08/24 04:30 37.0 C 55 L 14 100 05/08/24 04:30 140/78 05/08/24 04:00 136/79 05/08/24 04:00 136/79 05/08/24 04:00 136/79 05/08/24 04:00 37.0 C 57 L 14 100 05/08/24 04:00 35 05/08/24 03:36 37.0 C 57 L 14 99 05/08/24 03:30 143/83 H 05/08/24 03:25 56 L 18 100 35 05/08/24 03:15 37.1 C 53 L 14 100 05/08/24 03:06 37.1 C 54 L 14 100 05/08/24 02:30 37.0 C 54 L 14 100 05/08/24 02:30 134/80 05/08/24 02:30 134/80 05/08/24 02:30 134/80 05/08/24 02:00 147/83 H 05/08/24 02:00 147/83 H 05/08/24 02:00 147/83 H 05/08/24 02:00 37.0 C 57 L 14 99 05/08/24 01:33 36.9 C 52 L 14 100 05/08/24 01:30 149/80 H 05/08/24 01:30 149/80 H 05/08/24 01:15 36.9 C 54 L 14 100 05/08/24 01:00 36.9 C 57 L 14 99 05/08/24 01:00 131/79 05/08/24 01:00 131/79 05/08/24 00:45 36.9 C 56 L 14 100 05/08/24 00:30 128/83 05/08/24 00:30 128/83 05/08/24 00:24 36.9 C 63 14 99 05/08/24 00:15 36.9 C 60 14 99 05/08/24 00:00 133/77 05/08/24 00:00 35 05/08/24 00:00 61 05/07/24 23:51 37.0 C 59 L 14 100 05/07/24 23:45 64 16 100 35 05/07/24 23:33 37.0 C 58 L 17 99 05/07/24 23:30 136/79 05/07/24 23:30 136/79 05/07/24 23:24 37.0 C 59 L 17 99 05/07/24 23:03 37.0 C 62 16 99 05/07/24 23:00 130/78 05/07/24 22:51 37.0 C 61 16 100 05/07/24 22:30 37.0 C 59 L 16 100 05/07/24 22:30 131/81 05/07/24 22:30 131/81 05/07/24 22:30 131/81 05/07/24 22:30 131/81 05/07/24 22:30 131/81 05/07/24 22:12 37.0 C 62 16 100 05/07/24 21:48 37.1 C 62 16 100 05/07/24 21:30 131/81 05/07/24 21:24 37.1 C 65 16 100 05/07/24 21:00 37.1 C 61 16 99 05/07/24 21:00 130/82 05/07/24 21:00 130/82 05/07/24 21:00 130/82 05/07/24 20:39 37.1 C 65 16 99 05/07/24 20:30 138/81 05/07/24 20:27 37.1 C 67 16 100 05/07/24 20:18 37.1 C 75 16 99 05/07/24 20:00 125/78 05/07/24 20:00 125/78 05/07/24 20:00 35 05/07/24 19:58 Mechanical Vent 35 05/07/24 19:57 65 16 99 35 Laboratory Results 05/08/24 03:46 05/08/24 03:46 Coding Level of Care Code 81128 CRITICAL CARE 1ST 30-74M Diagnoses Glioblastoma C71.9 Bowel perforation K63.1 Right lower quadrant abdominal pain R10.31 Pneumoperitoneum of unknown etiology K66.8 Hypertension I10 CAD (coronary artery disease) I25.10 On mechanically assisted ventilation Z99.11
[2024-05-08] MEDS: VECURONIUM BROMIDE 10 MG VIAL IV PRN (08:11)
--- NOTE | 2024-05-08 10:58 | Anesthesiology Consultation ---
Date of Service May 08, 2024 Assessment & Plan Chart Review Chart Review: Acceptable Risk for Surgery and Patient NOT seen in Pre Admission Testing Consults Requested none ASA ASA4 Proposed Anesthesia Anesthesia Type: General Risk / Benefits Reviewed With: PT / POA / Parent / Guardian, Accepts Plan and Informed Consent Obtained History Surgery Operation Date: 05/06/24 18:15 Proposed Procedures p Exploratory Laparotomy - Carlos Marte DO Operation Date: 05/08/24 08:20 Proposed Procedures p Re-Exploratory Laparotomy, Possible Ostomy, Possible Bowel Resection - Carlos Marte DO Height/Weight Height: 6 ft 2 in Weight: 141.4 kg Allergies Allergy/AdvReac Type Severity Reaction Status Date / Time ibuprofen Allergy Intermediate UNABLE TO Unverified 09/03/17 09:52 TAKE DUE TO HEART MEDICATION, PER Medications Home Medications Medication Instructions Recorded Confirmed Last Taken ASPIRIN (ASPIRIN CHEWABLE) 81 mg PO DAILY ##0 09/03/17 11/05/23 Unknown Bupropion (Wellbutrin Sr) 150 mg PO DAILY ##0 09/03/17 11/05/23 Unknown Doxycycline (Monohydrate) 50 mg PO DAILY ##0 09/03/17 11/05/23 Unknown (Doxycycline) Metoprolol Succinate (TOPROL XL) 25 mg PO DAILY ##0 09/03/17 11/05/23 Unknown lisinopril 20 mg tablet 20 mg PO DAILY 11/05/23 11/05/23 Unknown bupropion HCl 150 mg tablet,12 hr 150 mg PO BID 05/06/24 05/06/24 Unknown sustained-release buspirone 10 mg tablet 10 mg PO TID 05/06/24 05/06/24 Unknown morphine 60 mg tablet,extended 60 mg PO AMHS 05/06/24 05/06/24 Unknown release nitrofurantoin 100 mg PO AMHS 05/06/24 05/06/24 Unknown monohydrate/macrocrystals 100 mg capsule Active Medications Generic Name Dose Route Start Last Admin Trade Name Freq PRN Reason Stop Dose Admin Fentanyl Citrate 50 mcg 05/06/24 21:23 05/08/24 06:46 Fentanyl Bolus From Bag IV 05/20/24 21:22 50 mcg Q60M PRN Administration Pain or Agitation Heparin Sodium (Porcine) 5,000 units 05/07/24 06:00 05/07/24 21:36 Heparin Sod 5,000 Unit/0.5 Ml Vial SQ 06/06/24 05:59 Not Given Q8 OSMANY Fentanyl Citrate 2,500 mcg in 250 mls @ 15 mls/hr 05/06/24 21:23 05/08/24 10:11 Fentanyl Citrate IV 05/20/24 21:22 Not Given .[id number] OSMANY Protocol 150 MCG/HR Propofol 1,000 mg in 100 mls @ 28.812 mls/hr 05/06/24 21:23 05/08/24 09:40 Diprivan IV 05/09/24 21:22 35 mcg/kg/min .Q3H29M OSMANY 28.8 mls/hr Titration Protocol 35 MCG/KG/MIN Piperacillin Sod/Tazobactam Sod 4.5 gm in 100 mls @ 25 mls/hr 05/06/24 22:00 05/08/24 09:00 Zosyn IV 05/16/24 21:22 Infused Q8H OSMANY Infusion Pantoprazole Sodium 40 mg/ 10 mls @ 5 mls/min 05/07/24 11:00 05/08/24 10:11 Syringe IV 06/06/24 10:59 5 mls/min DAILY@1100 OSMANY Administration Lactated Ringer's 1,000 mls @ 100 mls/hr 05/06/24 21:30 05/08/24 09:57 Lr IV 06/05/24 21:29 100 mls/hr .Q10H OSMANY Infusion Levetiracetam 500 mg/ Sodium 105 mls @ 420 mls/hr 05/06/24 22:00 05/08/24 10:41 Chloride IV 06/05/24 21:59 Infused Q12H OSMANY Infusion Caspofungin 50 mg/ Sodium 260 mls @ 250 mls/hr 05/07/24 22:00 05/07/24 22:31 Chloride IV 05/17/24 21:59 Infused Q24H OSMANY Infusion Protocol Acetaminophen 1,000 mg in 100 mls @ 400 mls/hr 05/07/24 14:46 05/07/24 15:38 Ofirmev IV 05/10/24 14:45 Infused Q8H PRN Infusion Fever Miscellaneous 1 each 05/06/24 21:23 05/08/24 10:11 Icu Protocol For Hyperglycemia N/A 05/08/24 21:22 Not Given Q6 OSMANY Multi-Ingredient Cream 1 appln 05/06/24 22:00 05/08/24 05:01 Artificial Tears Op Oint 3.5 Gm Tube OP 06/05/24 21:29 1 appln Q8H OSMANY Administration Propofol 20 mg 05/06/24 21:23 05/08/24 06:46 Propofol Bolus From Bag IV 05/09/24 21:22 20 mg Q5M PRN Administration Sedation Vecuronium Inland 8.2 mg 05/06/24 21:23 05/08/24 08:11 Vecuronium [place] 10 Mg Vial 0.1 mg/kg (8.2 mg) 06/05/24 21:22 8.2 mg IV Administration Q4H PRN coughing or vent dysnchrony NPO Date Last Intake of Fluids: 05/05/24 Time Last Intake of Fluids: 14:00 Last Intake of Fluids Comment: Breakfast Date Last Intake of Solids: 05/05/24 Time Last Intake of Solids: 08:00 Last Intake of Solids Comment: Breakfast Past Medical History Medical History (Updated 05/08/24 @ 08:18 by Glory Soto RN) HLD (hyperlipidemia) Depression Anxiety Exercise / Class Metabolic Activity II 4-5 Yardwork/Stairs/Walk up hill Past Family History Family History (Updated 05/06/24 @ 21:20 by OSVALDO Gillis) Other Family history unknown Past Surgical History Surgical History (Updated 05/08/24 @ 08:18 by Glory Soto RN) S/P laparoscopic-assisted sigmoidectomy (05/06/24) Exploratory Laparotomy, Sigmoidectomy, Appendectomy, Drainage of Intrabdominal abscess, placement of Abthera WoundVAC >50 cm2(Not Applicable) - Carlos Marte, Hx of craniotomy Hx of right coronary artery stent placement Past Anesthesia History No Hx of Anesthesia Complications and No Family Hx of Anesthesia Complications History of PONV No Hx of PONV and No Hx of Motion Sickness Social History Smoking Status: Unknown if ever smoked Physical Exam Vital Signs Last Vital Signs Temp 37.1 C 05/08/24 10:36 Pulse 51 L 05/08/24 10:36 Resp 18 05/08/24 10:36 BP 137/85 05/08/24 10:30 Pulse Ox 99 05/08/24 10:36 O2 Del Method Mechanical Vent 05/08/24 10:36 FiO2 35 05/08/24 10:19 Constitutional + mechanically ventilated ENMT Mouth: no dentition abnormality 8.0 ETT @23 cm. OG tube secured in place. Neck normal visual inspection Respiratory normal respiratory effort Auscultation: lungs clear to auscultation bilaterally Vet settings: 16/490/33/5 Cardiovascular Rate/Rhythm: regular rate and regular rhythm Neurologic sedated on propofol/fentanyl Psychiatric sedated for mechanical ventilation Testing Laboratory Results 05/08/24 03:46 05/08/24 03:46 Urine Color Dark Yellow 05/06/24 Unknown Urine Appearance Cloudy (Clear) A 05/06/24 Unknown Urine pH 5.5 (4.5-7.5) 05/06/24 Unknown Ur Specific [place] 1.030 (1.000-1.030) 05/06/24 Unknown Urine Protein 2+ (Negative) H 05/06/24 Unknown Urine Glucose (UA) Negative (Negative) 05/06/24 Unknown Urine Ketones Negative (Negative) 05/06/24 Unknown Urine Nitrite Negative (Negative) 05/06/24 Unknown Ur Leukocyte Esterase Trace (Negative) H 05/06/24 Unknown Urine WBC (Auto) 0-5 /hpf (0-5) 05/06/24 Unknown Urine RBC (Auto) 0-2 /hpf (0-2) 05/06/24 Unknown U Hyaline Cast (Auto) 11-20 /lpf (0-2) H 05/06/24 Unknown U Epithel Cells (Auto) 6-10 /hpf (0-2) H 05/06/24 Unknown Urine Bacteria (Auto) None Seen (None Seen) 05/06/24 Unknown 05/06/24 Unknown Gram Stain - Final Abdomen Aerobic and Anaerobic Culture - Preliminary Escherichia coli Streptococcus species 05/06/24 21:27 Aerobic Blood Culture - Preliminary Blood No growth in Aerobic bottle after 24 hours. Anaerobic Blood Culture - Final 05/08/24 05/07/24 04:59 23:57 POC Glucose 81 91 Electrocardiogram Date: 11/05/23 Findings: + NSR @ (68) cannot rule out inf [facility]
--- NOTE | 2024-05-08 11:36 | Surgery Progress Note ---
Date of Service May 08, 2024 Assessment & Plan (1) Bowel perforation: Plan: Has been stable since OR about 36 hours ago Proceed with re-exploration laparotomy, ostomy placement and possible bowel resection Consent was obtained from Candi, his medical POA and risks were discussed including bleeding, infection, anastomotic leak, injury to surrounding structures Admission and Anticipated Discharge Date Admission Date: May 06, 2024 Subjective Pt seen and examined. No acute events overnight. No pressors. Physical Exam Constitutional: WD/WN, vitals as above Gastrointestinal (Abdomen): Wound vac in place, no leak Results & Data Vital Signs (Past 12 Hours) Vital Signs Temp Pulse Pulse Resp BP BP Pulse Ox 05/08/24 10:36 37.1 C 51 L 18 99 05/08/24 10:30 137/85 05/08/24 10:27 37.1 C 56 L 16 99 05/08/24 10:24 37.1 C 52 L 17 99 05/08/24 10:19 55 L 16 100 05/08/24 10:14 37.0 C 57 L 16 148/86 H 99 05/08/24 10:00 37.0 C 52 L 16 99 05/08/24 10:00 148/86 H 05/08/24 09:45 37.0 C 57 L 16 99 05/08/24 09:39 37.0 C 60 16 99 05/08/24 09:30 159/91 H 05/08/24 09:30 159/91 H 05/08/24 09:26 37.0 C 52 L 14 100 05/08/24 09:20 37.1 C 57 L 14 100 05/08/24 09:11 37.1 C 53 L 14 100 05/08/24 09:00 144/86 H 05/08/24 08:56 37.1 C 53 L 14 100 05/08/24 08:50 37.1 C 52 L 14 99 05/08/24 08:47 05/08/24 08:40 05/08/24 08:30 148/83 H 05/08/24 08:05 37.0 C 64 16 100 05/08/24 08:02 36.8 C 51 L 16 100 05/08/24 08:00 162/86 H 05/08/24 08:00 59 L 05/08/24 07:56 36.9 C 52 L 16 100 05/08/24 07:46 54 L 16 100 05/08/24 07:45 36.9 C 53 L 16 100 05/08/24 07:30 152/85 H 05/08/24 07:20 36.9 C 52 L 16 100 05/08/24 07:17 36.9 C 53 L 16 99 05/08/24 07:02 36.9 C 55 L 16 100 05/08/24 07:00 153/81 H 05/08/24 06:59 36.9 C 54 L 16 100 05/08/24 06:32 36.4 C L 54 L 16 100 05/08/24 06:30 164/88 H 05/08/24 06:30 164/88 H 05/08/24 06:24 36.4 C L 52 L 16 99 05/08/24 06:21 36.4 C L 53 L 16 99 05/08/24 06:00 145/81 H 05/08/24 06:00 145/81 H 05/08/24 05:57 36.4 C L 54 L 16 100 05/08/24 05:33 36.4 C L 52 L 16 100 05/08/24 05:30 143/85 H 05/08/24 05:30 143/85 H 05/08/24 05:12 37.1 C 55 L 14 100 05/08/24 05:00 37.0 C 52 L 13 100 05/08/24 05:00 166/86 H 05/08/24 05:00 166/86 H 05/08/24 04:30 37.0 C 55 L 14 100 05/08/24 04:30 140/78 05/08/24 04:00 136/79 05/08/24 04:00 136/79 05/08/24 04:00 136/79 05/08/24 04:00 37.0 C 57 L 14 100 05/08/24 04:00 05/08/24 03:36 37.0 C 57 L 14 99 05/08/24 03:30 143/83 H 05/08/24 03:25 56 L 18 100 05/08/24 03:15 37.1 C 53 L 14 100 05/08/24 03:06 37.1 C 54 L 14 100 05/08/24 02:30 37.0 C 54 L 14 100 05/08/24 02:30 134/80 05/08/24 02:30 134/80 05/08/24 02:30 134/80 05/08/24 02:00 147/83 H 05/08/24 02:00 147/83 H 05/08/24 02:00 147/83 H 05/08/24 02:00 37.0 C 57 L 14 99 05/08/24 01:33 36.9 C 52 L 14 100 05/08/24 01:30 149/80 H 05/08/24 01:30 149/80 H 05/08/24 01:15 36.9 C 54 L 14 100 05/08/24 01:00 36.9 C 57 L 14 99 05/08/24 01:00 131/79 05/08/24 01:00 131/79 05/08/24 00:45 36.9 C 56 L 14 100 05/08/24 00:30 128/83 05/08/24 00:30 128/83 05/08/24 00:24 36.9 C 63 14 99 05/08/24 00:15 36.9 C 60 14 99 05/08/24 00:00 133/77 05/08/24 00:00 05/08/24 00:00 61 05/07/24 23:51 37.0 C 59 L 14 100 05/07/24 23:45 64 16 100 O2 Del Method FiO2 05/08/24 10:36 Mechanical Vent 05/08/24 10:30 05/08/24 10:27 05/08/24 10:24 05/08/24 10:19 35 05/08/24 10:14 Mechanical Vent 05/08/24 10:00 05/08/24 10:00 05/08/24 09:45 05/08/24 09:39 Mechanical Vent 05/08/24 09:30 05/08/24 09:30 05/08/24 09:26 05/08/24 09:20 05/08/24 09:11 05/08/24 09:00 05/08/24 08:56 05/08/24 08:50 05/08/24 08:47 Mechanical Vent 05/08/24 08:40 35 05/08/24 08:30 05/08/24 08:05 Mechanical Vent 05/08/24 08:02 08/19/24 08:00 05/08/24 08:00 05/08/24 07:56 05/08/24 07:46 35 05/08/24 07:45 05/08/24 07:30 05/08/24 07:20 05/08/24 07:17 05/08/24 07:02 05/08/24 07:00 05/08/24 06:59 05/08/24 06:32 05/08/24 06:30 05/08/24 06:30 05/08/24 06:24 05/08/24 06:21 05/08/24 06:00 05/08/24 06:00 05/08/24 05:57 05/08/24 05:33 05/08/24 05:30 05/08/24 05:30 05/08/24 05:12 05/08/24 05:00 05/08/24 05:00 05/08/24 05:00 05/08/24 04:30 05/08/24 04:30 05/08/24 04:00 05/08/24 04:00 05/08/24 04:00 05/08/24 04:00 05/08/24 04:00 35 05/08/24 03:36 05/08/24 03:30 05/08/24 03:25 35 05/08/24 03:15 05/08/24 03:06 05/08/24 02:30 05/08/24 02:30 05/08/24 02:30 05/08/24 02:30 05/08/24 02:00 05/08/24 02:00 05/08/24 02:00 05/08/24 02:00 05/08/24 01:33 05/08/24 01:30 05/08/24 01:30 05/08/24 01:15 05/08/24 01:00 05/08/24 01:00 05/08/24 01:00 05/08/24 00:45 05/08/24 00:30 05/08/24 00:30 05/08/24 00:24 05/08/24 00:15 05/08/24 00:00 05/08/24 00:00 35 05/08/24 00:00 05/07/24 23:51 05/07/24 23:45 35 PG Care Time/CCT Total # of Minutes Spent Total Time Spent with Patient: Total time spent is greater than 50% in coordination of care (as documented) at patient's floor/unit and/or counseling patient: Coding Level of Care Code 45228 Post Operative Follow-Up Diagnoses Bowel perforation K63.1
[2024-05-08] MEDS ORDERED: KETAMINE HCL 10MG/ML SYR ONE (12:15)
[2024-05-08] MEDS ORDERED: HYDROmorphone INJ 2 MG/ML SYR/VIAL ONE (12:29)
[2024-05-08] MEDS ORDERED: LABETALOL HCL IV 5 MG/ML 20ML IV ONE (12:33)
--- NOTE | 2024-05-08 13:51 | Post Operative Brief Note ---
PG Immediate Post Op with CF Date of Surgery May 08, 2024 Pre & Post Diagnosis Operation Date: 05/08/24 08:20 Pre-Op Diagnosis: Open Abdomen Post-Op Diagnosis: Open Abdomen, viable small bowel I identified the patient and participated in the time-out.: Yes Procedure Operation Date: 05/08/24 08:20 Actual Procedures p Re-Exploration Laparotomy, abdominal wash out, creation of end colostomy, explantation of abdominal wall mesh, abdominal wall closure(Not Applicable) - Carlos Marte DO Surgeon Carlos Marte DO Employment Office Clerk Peyton RILEY Estimated Blood Loss 25 Findings See Below Healthy appearing small bowel and colon, minimal purulent fluid Specimens Specimen Description: A. Abdominal Wall Mesh B. Portion of Sigmoid Colon Drains Venu Drain (01/25 placed by surgeon in abdominal incision ) Anesthesia Type General Complications None Disposition Disposition: Surgical ICU
--- NOTE | 2024-05-08 13:55 | Operative Report ---
PG Post Operative Report Pre & Post Diagnosis Operation Date: 05/08/24 08:20 Pre-Op Diagnosis: Open Abdomen Post-Op Diagnosis: Open Abdomen I identified the patient and participated in the time-out.: Yes Procedure Operation Date: 05/08/24 08:20 Actual Procedures p Re-Exploration Laparotomy, abdominal wash out, creation of end colostomy, explantation of abdominal wall mesh, abdominal wall closure(Not Applicable) - Carlos Marte DO Surgeon Carlos Marte DO Detail Manager Dawood Walker DO Estimated Blood Loss 25 Findings See Below Healthy appearing small bowel, minimal purulent fluid within abdomen Specimens Abdominal wall mesh and portion of sigmoid colon to pathology Drains None Anesthesia Type General Complications none Disposition Disposition: Surgical ICU Indications 58 yo male with open abdomen s/p sigmoidectomy for perforation Description of Procedure The patient was brought to the OR and placed in the supine position with both arms abducted. He was already intubated endotracheally. He was given appropriate pre-operative antibiotics. His abdomen was prepped and draped in the usual sterile fashion. Timeout was called. The procedure was verified as Re exploratoration laparotomy, possible bowel resection, possible ostomy. Surgical, anesthesia and nursing teams agreed and the procedure was begun. The inner sponge of the Abthera wound vac was discarded. At this time I was able to run the small bowel from Ligament of Treitz to cecum and everything was viable. The abdomen was irrigated until clear. There was minimal purulence within the abdomen. The descending colon was viable and a small portion of the mesentery was taken using the Ligasure device in order to have the colostomy reach the abdominal wall. At this time a skin incision was made in the left abdomen after grasping the skin with a Javad clamp. This was carried down to the fascia us ing electrocautery. A cruciate incision was made in the fascia and muscle was split with a Awa clamp. The descending colon was grasped with a Cherie clamp and brought through the abdominal wall. There was exposed mesh from his previous umbilical hernia repair. Using the Ligasure we were able to excise the exposed mesh along with the portion of the abdominal wall. At this point the wound was then irrigated until clear. Hemostasis was achieved using electrocautery. Hemostasis was complete. The fascia was then closed in a running fashion using 2 #1 looped PDS suture starting superiorly and inferiorly and meeting in the middle. Skin was closed with joyce and [place] drain was left in place. The colostomy was then matured using 3-0 Vicryl suture and ostomy appliance applied. Sterile dressing was applied. All needle and sponge counts were correct x 2. At this point the patient was awakened from anesthesia, and transported to PACU in stable condition. The nurse practitioner was present and scrubbed for the entirety of the case. She was critical in positioning the patient, prepping and draping, retraction and exposure, closure of the incision and placement of the dressings. I attest to the content of the Intraoperative Record and any orders documented therein. Any exceptions are noted below.
--- NOTE | 2024-05-08 14:09 | Anesthesiology Progress Note ---
Date of Service May 08, 2024 Anesthesia Post Procedure Vital Signs Vital Signs: Temp Pulse Pulse Resp BP BP Pulse Ox 05/08/24 14:01 85 16 94 05/08/24 12:00 05/08/24 11:42 99.0 F 51 L 16 100 05/08/24 11:31 146/93 H 05/08/24 11:21 98.8 F 51 L 17 98 05/08/24 11:00 160/80 H 05/08/24 10:54 98.8 F 53 L 16 97 05/08/24 10:36 98.8 F 51 L 18 99 05/08/24 10:30 137/85 05/08/24 10:27 98.8 F 56 L 16 99 05/08/24 10:24 98.8 F 52 L 17 99 05/08/24 10:19 55 L 16 100 05/08/24 10:14 98.6 F 57 L 16 148/86 H 99 05/08/24 10:00 98.6 F 52 L 16 99 05/08/24 10:00 148/86 H 05/08/24 09:45 98.6 F 57 L 16 99 05/08/24 09:39 98.6 F 60 16 99 05/08/24 09:30 159/91 H 05/08/24 09:30 159/91 H 05/08/24 09:26 98.6 F 52 L 14 100 05/08/24 09:20 98.8 F 57 L 14 100 05/08/24 09:11 98.8 F 53 L 14 100 05/08/24 09:00 144/86 H 05/08/24 08:56 98.8 F 53 L 14 100 05/08/24 08:50 98.8 F 52 L 14 99 05/08/24 08:47 05/08/24 08:40 05/08/24 08:30 148/83 H 05/08/24 08:05 98.6 F 64 16 100 05/08/24 08:02 98.2 F 51 L 16 100 05/08/24 08:00 162/86 H 05/08/24 08:00 59 L 05/08/24 07:56 98.4 F 52 L 16 100 05/08/24 07:46 54 L 16 100 05/08/24 07:45 98.4 F 53 L 16 100 05/08/24 07:30 152/85 H 05/08/24 07:20 98.4 F 52 L 16 100 05/08/24 07:17 98.4 F 53 L 16 99 05/08/24 07:02 98.4 F 55 L 16 100 05/08/24 07:00 153/81 H 05/08/24 06:59 98.4 F 54 L 16 100 05/08/24 06:32 97.5 F L 54 L 16 100 05/08/24 06:30 164/88 H 05/08/24 06:30 164/88 H 05/08/24 06:24 97.5 F L 52 L 16 99 05/08/24 06:21 97.5 F L 53 L 16 99 05/08/24 06:00 145/81 H 05/08/24 06:00 145/81 H 05/08/24 05:57 97.5 F L 54 L 16 100 05/08/24 05:33 97.5 F L 52 L 16 100 05/08/24 05:30 143/85 H 05/08/24 05:30 143/85 H 05/08/24 05:12 98.8 F 55 L 14 100 05/08/24 05:00 98.6 F 52 L 13 100 05/08/24 05:00 166/86 H 05/08/24 05:00 166/86 H 05/08/24 04:30 98.6 F 55 L 14 100 05/08/24 04:30 140/78 05/08/24 04:00 136/79 05/08/24 04:00 136/79 05/08/24 04:00 136/79 05/08/24 04:00 98.6 F 57 L 14 100 05/08/24 04:00 05/08/24 03:36 98.6 F 57 L 14 99 05/08/24 03:30 143/83 H 05/08/24 03:25 56 L 18 100 05/08/24 03:15 98.8 F 53 L 14 100 05/08/24 03:06 98.8 F 54 L 14 100 05/08/24 02:30 98.6 F 54 L 14 100 05/08/24 02:30 134/80 05/08/24 02:30 134/80 05/08/24 02:30 134/80 05/08/24 02:00 147/83 H 05/08/24 02:00 147/83 H 05/08/24 02:00 147/83 H 05/08/24 02:00 98.6 F 57 L 14 99 05/08/24 01:33 98.4 F 52 L 14 100 05/08/24 01:30 149/80 H 05/08/24 01:30 149/80 H 05/08/24 01:15 98.4 F 54 L 14 100 05/08/24 01:00 98.4 F 57 L 14 99 05/08/24 01:00 131/79 05/08/24 01:00 131/79 05/08/24 00:45 98.4 F 56 L 14 100 05/08/24 00:30 128/83 05/08/24 00:30 128/83 05/08/24 00:24 98.4 F 63 14 99 05/08/24 00:15 98.4 F 60 14 99 05/08/24 00:00 133/77 05/08/24 00:00 05/08/24 00:00 61 05/07/24 23:51 98.6 F 59 L 14 100 05/07/24 23:45 64 16 100 05/07/24 23:33 98.6 F 58 L 17 99 05/07/24 23:30 136/79 05/07/24 23:30 136/79 05/07/24 23:24 98.6 F 59 L 17 99 05/07/24 23:03 98.6 F 62 16 99 05/07/24 23:00 130/78 05/07/24 22:51 98.6 F 61 16 100 05/07/24 22:30 98.6 F 59 L 16 100 05/07/24 22:30 131/81 05/07/24 22:30 131/81 05/07/24 22:30 131/81 05/07/24 22:30 131/81 05/07/24 22:30 131/81 05/07/24 22:12 98.6 F 62 16 100 05/07/24 21:48 98.8 F 62 16 100 05/07/24 21:30 131/81 05/07/24 21:24 98.8 F 65 16 100 05/07/24 21:00 98.8 F 61 16 99 05/07/24 21:00 130/82 05/07/24 21:00 130/82 05/07/24 21:00 130/82 05/07/24 20:39 98.8 F 65 16 99 05/07/24 20:30 138/81 05/07/24 20:27 98.8 F 67 16 100 05/07/24 20:18 98.8 F 75 16 99 05/07/24 20:00 125/78 05/07/24 20:00 125/78 05/07/24 20:00 05/07/24 19:58 05/07/24 19:57 65 16 99 05/07/24 19:42 98.8 F 64 18 94 05/07/24 19:36 98.8 F 64 16 99 05/07/24 19:30 134/81 05/07/24 19:15 98.8 F 64 16 99 05/07/24 19:06 99.0 F 67 16 99 05/07/24 19:00 137/86 05/07/24 18:48 99.0 F 69 16 98 05/07/24 17:37 61 05/07/24 17:00 99.5 F 72 16 128/80 99 05/07/24 16:00 05/07/24 16:00 99.7 F H 77 16 135/84 99 05/07/24 15:00 100.0 F H 72 17 146/87 H 100 05/07/24 14:50 73 17 99 O2 Del Method FiO2 05/08/24 14:01 35 05/08/24 12:00 35 05/08/24 11:42 05/08/24 11:31 05/08/24 11:21 05/08/24 11:00 05/08/24 10:54 05/08/24 10:36 Mechanical Vent 05/08/24 10:30 05/08/24 10:27 05/08/24 10:24 05/08/24 10:19 35 05/08/24 10:14 Mechanical Vent 05/08/24 10:00 05/08/24 10:00 05/08/24 09:45 05/08/24 09:39 Mechanical Vent 05/08/24 09:30 05/08/24 09:30 05/08/24 09:26 05/08/24 09:20 05/08/24 09:11 05/08/24 09:00 05/08/24 08:56 05/08/24 08:50 05/08/24 08:47 Mechanical Vent 05/08/24 08:40 35 05/08/24 08:30 05/08/24 08:05 Mechanical Vent 05/08/24 08:02 05/08/24 08:00 05/08/24 08:00 05/08/24 07:56 05/08/24 07:46 35 05/08/24 07:45 05/08/24 07:30 05/08/24 07:20 05/08/24 07:17 05/08/24 07:02 05/08/24 07:00 05/08/24 06:59 05/08/24 06:32 05/08/24 06:30 05/08/24 06:30 05/08/24 06:24 05/08/24 06:21 05/08/24 06:00 05/08/24 06:00 05/08/24 05:57 05/08/24 05:33 05/08/24 05:30 05/08/24 05:30 05/08/24 05:12 05/08/24 05:00 05/08/24 05:00 05/08/24 05:00 05/08/24 04:30 05/08/24 04:30 05/08/24 04:00 05/08/24 04:00 05/08/24 04:00 05/08/24 04:00 05/08/24 04:00 35 05/08/24 03:36 05/08/24 03:30 05/08/24 03:25 35 05/08/24 03:15 05/08/24 03:06 05/08/24 02:30 05/08/24 02:30 05/08/24 02:30 05/08/24 02:30 05/08/24 02:00 05/08/24 02:00 05/08/24 02:00 05/08/24 02:00 05/08/24 01:33 05/08/24 01:30 05/08/24 01:30 05/08/24 01:15 05/08/24 01:00 05/08/24 01:00 05/08/24 01:00 05/08/24 00:45 05/08/24 00:30 05/08/24 00:30 05/08/24 00:24 05/08/24 00:15 05/08/24 00:00 05/08/24 00:00 35 05/08/24 00:00 05/07/24 23:51 05/07/24 23:45 35 05/07/24 23:33 05/07/24 23:30 05/07/24 23:30 05/07/24 23:24 05/07/24 23:03 05/07/24 23:00 05/07/24 22:51 05/07/24 22:30 05/07/24 22:30 05/07/24 22:30 05/07/24 22:30 05/07/24 22:30 05/07/24 22:30 05/07/24 22:12 05/07/24 21:48 05/07/24 21:30 05/07/24 21:24 05/07/24 21:00 05/07/24 21:00 05/07/24 21:00 05/07/24 21:00 05/07/24 20:39 05/07/24 20:30 05/07/24 20:27 05/07/24 20:18 05/07/24 20:00 05/07/24 20:00 05/07/24 20:00 35 05/07/24 19:58 Mechanical Vent 35 05/07/24 19:57 35 05/07/24 19:42 05/07/24 19:36 05/07/24 19:30 05/07/24 19:15 05/07/24 19:06 05/07/24 19:00 05/07/24 18:48 05/07/24 17:37 05/07/24 17:00 05/07/24 16:00 35 05/07/24 16:00 05/07/24 15:00 05/07/24 14:50 35 Transfer of Care Handoff Completed per policy Notes Mental Status: see notes below Patient Amnestic to Procedure: Yes Nausea / Vomiting: adequately controlled Pain: adequately controlled Airway Patency, RR, SpO2: stable & adequate BP & HR: stable & adequate Hydration State: stable & adequate Anesthetic Complications: no major complications apparent and Pt Satisfied with anesthetic care Notes: The patient was transported to the ICU intubated with monitors. Care was transferred to the ICU team.
[2024-05-08] MEDS: MIDAZOLAM HCL 1 MG/ML 2ML VIAL IV PRN (16:10)
[2024-05-09] MEDS: MIDAZOLAM HCL 1 MG/ML 2ML VIAL IV PRN (03:13)
[2024-05-09 04:46] LABS: Hematocrit (blood only) 34.6 % (42.0-52.0); Hemoglobin 11.4 g/dl (14.0-18.0); Mean Corpuscular Hemoglobin 31.1 pg (25.0-34.0); Mean Corpuscular Hgb Conc 32.9 g/dL (32.0-36.0); Mean Corpuscular Volume 94.5 fL (80.0-100.0); Mean Platelet Volume 9.1 fL (9.4-12.4); Platelet Count 187 K/uL (130-400); RDW Coefficient of Variation 13.5 % (11.5-14.5); Red Blood Count 3.66 M/uL (4.70-6.10); White Blood Count 5.62 K/ul (4.8-10.8)
[2024-05-09 04:59] LABS: Creatinine Clr Calc Pharmacy 204.4 ml/min; Est GFR (African American) 129.3 ml/min; Est GFR (Non-African American) 111.6 ml/min; Potassium 4.2 mmol/L (3.5-5.1)
[2024-05-09 05:21] LABS: Basophils # (auto) 0.02 K/uL (0.00-0.20); Basophils % (auto) 0.4 %; Immature Granulocytes # (auto) 0.49 K/uL (0.01-0.20); Immature Granulocytes % (auto) 8.7 %; Lymphocytes # (auto) 0.46 K/uL (1.20-3.40); Lymphocytes % (auto) 8.2 %; Monocytes % (auto) 3.6 %; Neutrophils # (auto) 4.45 K/uL (1.40-6.50); Neutrophils % (auto) 79.1 %; Polychromasia 1+
--- NOTE | 2024-05-09 07:24 | Critical Care Progress Note ---
Date of Service May 09, 2024 Assessment & Plan (1) Glioblastoma: (2) Bowel perforation: (3) Right lower quadrant abdominal pain: (4) Pneumoperitoneum of unknown etiology: (5) Hypertension: (6) CAD (coronary artery disease): (7) On mechanically assisted ventilation: Plan Reason Critically Ill: 58 YOM presents to ER with worsening abdominal pain found to have peritonitis and free air. Taken for emergent ex-lap found with purulent fluid and abscess, left open and intubated on mechanical ventilation. 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 - MRI 11/13 per OSH records- left tumor resection with mild residual tumor and small right frontal meningioma - undergoing palliative chemo/radiation- Temodar for 6 months then Optitune device and on Lomustine 40mg orally at home - Keppra 500mg PO q12 for prophylaxis - Hold Decadron 2mg at this time - Anxiety/Depression- Hold home agents of Buspirone and Wellbutrin Cardiac - CAD, hx of stents and NC, HTN, HLD On metoprolol, statin as well as aspirin at home Respiratory - Intubation requiring mechanical sedation, ALEKSANDR with CPAP -- VDRF Likely secondary to surgical procedure Continue with ventilatory support Keep RASS -1 Daily sedation holidays and SBT's GI - bowel perforation with purulent peritonitis and abscess -S/p OR 05/06/2024, repeat OR and wound closure 05/08/2024 with colostomy -Surgery on board RENAL/LYTES - No acute needs at this time -Monitor BUNs/creatinine - Owens per gravity while intubated - remove once extubated ENDO - No acute needs - ICU hyper/hypoglycemic protocols HEME - Glioblastoma as above - hold agents for now ID - Peritonitis in setting of bowel perforation with abscess noted - Blood cultures obtained in ICU after abx therapy -Abdominal culture growing E. coli which is pansensitive - As he is immunocompromised with active chemo/radiation therapy - Currently on Zosyn and caspofungin (will give for total of 5 days) CODE STATUS: DNR/DNI in event of cardiac arrest. Patient with significant malignancy history undergoing therapy, this has been felt to be possible correctable event: Pneumoperitoneum. Continue current level of care however patient would not want heroics in event of cardiac arrest --Prophylaxis VTE: Heparin GI: Pantoprazole Lines: Peripherals, Owens Diet: N.p.o. Plan: In/out: +2.1 L, urine output 2720, +5.3 L since coming to the hospital DC IV fluids, give the patient 20 mg of Lasix. Trial of extubation to BiPAP today. Patient blood pressure has been creeping up likely from weaning the sedation. Will try to resume his home blood pressure medication. Given the patient is bradycardic, beta-blockers would not be a good option. Complete the course of caspofungin for total of 5 days Will give IV hydralazine and if surgery is okay to to start p.o. medications then amlodipine will be added. I have personally spent 36 minutes of critical care time in the direct management of this patient. This is a life/limb threatening event. This includes time spent evaluating patient, direct bedside care, chart review, placing orders, interpretation of diagnostic studies, discussion with consultants, patient, and family members, as well as other required patient management activities. This time is exclusive of all separately billable procedures, and teaching time and separate from and in addition to any other critical care service time. Admission and Anticipated Discharge Date Admission Date: May 06, 2024 Subjective Patient seen and examined at bedside. No acute distress, no adverse events overnight He was on 200 of fentanyl and 20 of propofol the time of examination He was RASS -1, following commands Denied any headache, no chest pain. Was asking to take the tube out. Has been afebrile. Tmax 37.6 Review of Systems 2 Review of Systems: Unobtainable due to endotracheal tube Physical Exam 2 Physical Exam: Constitutional: No acute distress HEENT: PERRLA Respiratory system: Decreased air entry bilaterally, no wheeze, no rhonchi, minimal crackles bilateral lower lobes CVS: S1-S2 positive, no murmurs or gallops Abdomen: Soft, nontender, nondistended, decreased bowel sounds x4, colostomy in place Extremities: +2 pulses bilaterally radialis/ dorsalis pedis, no cyanosis, no edema Neuro: RASS -1, moving all extremities to command Psych: Unable to assess G/U: Positive Owens Skin: no rashes, warm and dry Lymphatic: no cervical or axillary lymphadenopathy Results & Data Results & Data Vital Signs (Past 12 Hours) Vital Signs Temp Pulse Resp BP Pulse Ox O2 Del Method FiO2 05/09/24 06:00 148/85 H 05/09/24 06:00 148/85 H 05/09/24 06:00 148/85 H 05/09/24 06:00 148/85 H 05/09/24 06:00 37.5 C 57 L 17 100 05/09/24 05:00 126/81 05/09/24 05:00 126/81 05/09/24 05:00 37.5 C 66 16 99 05/09/24 04:15 37.6 C H 76 16 122/82 99 05/09/24 04:03 122/82 05/09/24 04:00 37.6 C H 81 16 97 05/09/24 04:00 35 05/09/24 03:37 64 18 99 35 05/09/24 03:06 37.6 C H 58 L 16 99 05/09/24 03:00 166/97 H 05/09/24 03:00 166/97 H 05/09/24 02:42 36.5 C 58 L 16 99 05/09/24 02:15 36.4 C L 57 L 16 99 05/09/24 02:00 170/97 H 05/09/24 01:48 36.9 C 58 L 14 99 05/09/24 01:03 58 L 16 98 05/09/24 01:00 170/95 H 05/09/24 01:00 170/95 H 05/09/24 00:24 61 16 98 05/09/24 00:00 171/89 H 05/09/24 00:00 171/89 H 05/09/24 00:00 171/89 H 05/09/24 00:00 63 16 98 05/09/24 00:00 35 05/08/24 23:33 37.4 C 66 16 97 05/08/24 23:17 Mechanical Vent 35 05/08/24 23:12 86 05/08/24 23:00 157/89 H 05/08/24 23:00 65 16 97 35 05/08/24 22:57 37.4 C 69 16 97 05/08/24 22:27 37.4 C 65 14 97 05/08/24 22:19 175/93 H 05/08/24 22:12 37.4 C 67 14 97 05/08/24 22:09 162/91 H 05/08/24 22:09 162/91 H 05/08/24 22:09 162/91 H 05/08/24 22:00 180/95 H 05/08/24 21:00 37.2 C 63 14 97 05/08/24 21:00 179/99 H 05/08/24 20:57 77 17 94 35 05/08/24 20:06 37.3 C 76 16 95 05/08/24 20:00 35 Laboratory Results 05/09/24 04:20 05/09/24 04:20 Coding Level of Care Code 13103 CRITICAL CARE 1ST 30-74M Diagnoses Glioblastoma C71.9 Bowel perforation K63.1 Right lower quadrant abdominal pain R10.31 Pneumoperitoneum of unknown etiology K66.8 Hypertension I10 CAD (coronary artery disease) I25.10 On mechanically assisted ventilation Z99.11
[2024-05-09] MEDS: FUROSEMIDE INJ 20 MG/2 ML VIAL IV ONE (08:12)
--- NOTE | 2024-05-09 08:16 | Surgery Progress Note ---
Date of Service May 09, 2024 Assessment & Plan (1) S/P exploratory laparotomy: Plan: He is doing well, labs reviewed Main goal for today would be to get him extubated if possible Can have clear liquids once extubated Heparin q8 for DVT prophylaxis Await ostomy function Admission and Anticipated Discharge Date Admission Date: May 06, 2024 Subjective Pt seen and examined. No acute events overnight. Doing well on vent. Physical Exam Constitutional: WD/WN, vitals as above Gastrointestinal (Abdomen): Abdominal dressing c/d/i Ostomy in left abdomen without output Results & Data Vital Signs (Past 12 Hours) Vital Signs Temp Pulse Resp BP Pulse Ox O2 Del Method FiO2 05/09/24 06:00 66 18 96 30 05/09/24 06:00 148/85 H 05/09/24 06:00 148/85 H 05/09/24 06:00 148/85 H 05/09/24 06:00 148/85 H 05/09/24 06:00 37.5 C 57 L 17 100 05/09/24 05:00 126/81 05/09/24 05:00 126/81 05/09/24 05:00 37.5 C 66 16 99 05/09/24 04:15 37.6 C H 76 16 122/82 99 05/09/24 04:03 122/82 05/09/24 04:00 37.6 C H 81 16 97 05/09/24 04:00 35 05/09/24 03:37 64 18 99 35 05/09/24 03:06 37.6 C H 58 L 16 99 05/09/24 03:00 166/97 H 05/09/24 03:00 166/97 H 05/09/24 02:42 36.5 C 58 L 16 99 05/09/24 02:15 36.4 C L 57 L 16 99 05/09/24 02:00 170/97 H 05/09/24 01:48 36.9 C 58 L 14 99 05/09/24 01:03 58 L 16 98 05/09/24 01:00 170/95 H 05/09/24 01:00 170/95 H 05/09/24 00:24 61 16 98 05/09/24 00:00 171/89 H 05/09/24 00:00 171/89 H 05/09/24 00:00 171/89 H 08/20/24 00:00 63 16 98 05/09/24 00:00 35 05/08/24 23:33 37.4 C 66 16 97 05/08/24 23:17 Mechanical Vent 35 05/08/24 23:12 86 05/08/24 23:00 157/89 H 05/08/24 23:00 65 16 97 35 05/08/24 22:57 37.4 C 69 16 97 05/08/24 22:27 37.4 C 65 14 97 05/08/24 22:19 175/93 H 05/08/24 22:12 37.4 C 67 14 97 05/08/24 22:09 162/91 H 05/08/24 22:09 162/91 H 05/08/24 22:09 162/91 H 05/08/24 22:00 180/95 H 05/08/24 21:00 37.2 C 63 14 97 05/08/24 21:00 179/99 H 05/08/24 20:57 77 17 94 35 PG Care Time/CCT Total # of Minutes Spent Total Time Spent with Patient: Total time spent is greater than 50% in coordination of care (as documented) at patient's floor/unit and/or counseling patient: Coding Level of Care Code 66231 Post Operative Follow-Up Diagnoses S/P exploratory laparotomy Z98.890
[2024-05-09] MEDS: MoRPHine SULFATE 2 MG/ML CARP IV PRN (10:45)
[2024-05-09] MEDS: hydrALAZINE HCL 20 MG/ML VIAL IV SCH (10:46)
--- NOTE | 2024-05-09 11:55 | XRay Report ---
SINGLE VIEW CHEST CLINICAL HISTORY: Respiratory failure FINDINGS: 2 AP, portable, semierect chest radiographs are compared to study dated 05/08/2024. Endotrac heal and enteric tubes are unchanged in position. The heart is enlarged. The pulmonary vasculature is not congested. Chronic interstitial thickening is similar to previous. There is bibasilar scarring/a telectasis. No airspace consolidation or large pleural effusion is identified. No pneumothorax is see n. The bony thorax is grossly intact. IMPRESSION: 1. Stable lines and tubes. 2. Cardiomegaly without radiographic evidence of congestive failure. ACT 112: Negative or not required by law. Electronically signed by: Goyo Yun M.D. 05/09/2024 11:53 AM
--- NOTE | 2024-05-09 14:30 | Palliative Care Consultation ---
Date of Consultation May 09, 2024 Assessment & Plan (1) Cancer related pain: Wesley uses MS 180mg PO MS daily which is about 60mg MS IV daily equivalent To prevent withdrawal, begin low dose scheduled MS 2mg IV q4h /Hold for somnolence or RR less than 14; please document RR with each dose administration. Continue MS 2mg IV q2h prn BTP/dyspnea Hold for somnolence or RR less than 14; please document RR with each dose administration. (2) Abdominal pain: (3) Discussion about advance care planning held with family member: 25min face to face ACP meeting held with pt and his signif other/POA, Candi, at bedside. He is intermittently drifting off but answered a few questions appropriately. We discussed their goals of care: Candi states they have been in discussion about this for past few weeks. His cancer was dc Oct 2023. He initially wanted to pursue cancer directed therapy for as long as it gives him QOL. If he is declining, not improving or acute decompensation, then he would want to be comfortable. Candi would like to revisit goals of care moving forward from this admission. She is feeling that further cancer directed therapy is not appropriate. She also notes his recent scans showed disease progression and they have always known this was not a curable cancer. We agreed to focus on improving his pain, see how his neuro status/ alertness improve over next few days and proceed with additional discussions as they evolve along the way. She wants him to be as involved as he can be in all discussions. We agreed he needs a day or two to recover from intubation/extubation and also to see how he does post op healing. She is in agreement with above. (4) Palliative care by specialist: Wesley and Candi are very familiar with [facility], they see [facility] Dr Tompkins as outpatient (5) Glioblastoma: (6) Bowel perforation: Plan As above orders written Updated CCM Thank you for allowing us to participate in the ongoing care of this patient. Please page with any additional concerns. Selma Gonzalez DNP Director, Palliative Medicine History of Present Illness Reason for Consultation: continuity, [facility] Attending Physician: Carlos Marte, History of Present Illness Wesley Lujan is a 58yo male admitted 05/06/24 with bowel perf s/p surgery, new ostomy, extubated today. He is seen at bedside with his long time partner Candi, she provides much of the hx. Candi is his POA. He has a completed POLST on file. They reaffirm DNR/DNI code status. She reports he was having inc abd pain/burning pain for about a week prior to admission with inc distension, abd tenderness, weakness and some confusion. She went to his home and brought him to ED for this worsening abdominal pain, where he was found to have +peritonitis and free air, +pneumoperitoneum. He underwent emergent ex-lap found with purulent fluid and abscess, which was initially left open and intubated on mechanical ventilation. 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 He is s/p radiation treatment at [facility]. - MRI 11/13 per OSH records- left tumor resection with mild residual tumor and small right frontal meningioma - February 2024 MRI [facility] ++ disease progression (see [employer] data review below) - undergoing palliative chemo/radiation- Temodar for 6 months then Optitune device and on Lomustine 40mg orally at home - Keppra 500mg PO q12 for prophylaxis - Hold Decadron 2mg at this time At baseline he has severe cancer related pain, managed by [facility]/Dr Tompkins He was taking MS Contin 60mg PO q12h and MSIR 30mg PO q4h prn averaging 2-3 tabs daily, generally 2 tabs. Max daily MS dose is 180mg (MS Contin 60 + 60 and MSIR 30 + 30 - MS 180mg daily total) [employer] EMR Link reviewed: DIAGNOSIS and Treatment History: Treatment Summary Glioblastoma, IDH-wildtype (HCC) 11/10/2023 Initial Diagnosis Glioblastoma, IDH-wildtype (HCC) 11/10/2023 Surgery L temporal resection by Dr. Ornelas 11/10/2023 Molecular Testing Results Final DiagnosisA. Left temporal tumor, biopsy:Glioblastoma, IDH-wild type, WHO grade 4B. Left temporal tumor, biopsy:Glioblastoma, IDH-wild type, WHO grade 4C. Left temporal tumor, Sonopet contents:Glioblastoma, IDH-wild type, WHO grade 4 Microscopic DescriptionMicroscopic examination shows an infiltrative hypercellular astrocytic tumor composed of cells with scant to moderate cytoplasm and round to angular hyperchromatic nuclei. Mitoses are present. There is necrosis with and without pseudopalisading. Immunostains show some of the tumor cells nuclei are positive for p53 and there is intact expression of ATRX. The Mib-1 labeling is high (15%).Amplified for EGFR gene status. MGMT detected ADDENDUM:Left temporal lobeIntegrated diagnosis: Glioblastoma, IDH-wild, WHO grade 4Histopathological classification: GlioblastomaCNS WHO grade: 4Molecular information: EGFRvIII mutation,CDKN2A homozygous loss,CDKN2B copy number loss, CTNNB1 mutation (S33C),PTEN mutation (V175M), andEGFR gain (by NGS).MGMT gene promotor methylation detected (by PCR)EGFR amplified (by FISH); Mri brain 02/22/24:IMPRESSION Progressive disease with increase in solid enhancing tumor within the left parietal and temporal lobes with associated increased cerebral perfusion and progressive confluent hyperintense T2 FLAIR signal. NSGY Attending Attestation I have reviewed the advanced practitioner's documentation (Louis Souza PA-C) on the date of service referenced in note, and I agree with, and take respon sibility for the plan of care. Remy presents for surveillance. He was doing reasonably well until a couple of weeks ago when he started sleeping much more, frankly most of the day, and his speech got dramatically worse. He has no focal motor or sensory changes today. He got a new MRI scan, which we reviewed. From our perspective there is notable progression of enhancing tumor and edema. There is no additional surgery I would recommend and Dr. Downey is not supportive of additional radiation given how recently he had XRT. We discussed his case and feel that CCNU plus avastin would be the next reasonable option if he is interested in treatment. If so, we could start this and have a plan for a 3 mo surveillance scan. All questions were answered. Thank you kindly for the opportunity to see him today. I spent a total of 30-39 minutes (exact time 37 mins) on the date of service in preparation, delivery, and documentation of the care provided to Remy Lujan excluding any time spent in the performance of separately billed services. Matteo Ornelas III, MD, PhD 02/28/2024 11:37 AM Treatment: Medication: Lomustine (CCNU, Gleostine) Indication/Staging/Diagnosis Code: Glioblastoma, WHO Grade IV, C71.9 Dose Basis: Per BELOB Trial: Cycle 1: 90 mg/m2 * 2.68 m2 (02/29/24) = 241.2 mg (max dose 160 mg) Cycles 2+: 110 mg/m2 (if there were no hematologic toxic effects of a grade of more than 1 during the first cycle) * 2.68 m2 (02/29/24) = 294.8 mg (max dose 200 mg) Dose: Cycle 1: 160 mg PO once every 6 weeks Cycles 2+ (as tolerated): 200 mg PO once every 6 weeks Administration: empty stomach at bedtime Start Date: 03/24/24 Primary Interventional Tech/Oncologist: Dr. Shay Song Additional Therapy: Bevacizumab Supportive Care Meds: Ondansetron, Miralax, Senna Prophylactic Meds: Consider PJP ppx for ALC < 0.5 - patient was on Bactrim previously Allergies Allergy/AdvReac Type Severity Reaction Status Date / Time ibuprofen Allergy Intermediate UNABLE TO Unverified 09/03/17 09:52 TAKE DUE TO HEART MEDICATION, PER Home Medications Medication Instructions Recorded Confirmed Type ASPIRIN (ASPIRIN CHEWABLE) 81 mg PO DAILY ##0 09/03/17 11/05/23 History Bupropion (Wellbutrin Sr) 150 mg PO DAILY ##0 09/03/17 11/05/23 History Doxycycline (Monohydrate) 50 mg PO DAILY ##0 09/03/17 11/05/23 History (Doxycycline) Metoprolol Succinate (TOPROL XL) 25 mg PO DAILY ##0 09/03/17 11/05/23 History lisinopril 20 mg tablet 20 mg PO DAILY 11/05/23 11/05/23 History bupropion HCl 150 mg tablet,12 hr 150 mg PO BID 05/06/24 05/06/24 History sustained-release buspirone 10 mg tablet 10 mg PO TID 05/06/24 05/06/24 History morphine 60 mg tablet,extended 60 mg PO AMHS 05/06/24 05/06/24 History release nitrofurantoin 100 mg PO AMHS 05/06/24 05/06/24 History monohydrate/macrocrystals 100 mg capsule Patient History Medical History (Updated 05/09/24 @ 14:34 by Cristine A. Fogelman, DNP) HLD (hyperlipidemia) Depression Anxiety Surgical History (Updated 05/09/24 @ 10:03 by Glory Soto RN) History of laparotomy (05/08/24) Re-Exploration Laparotomy, abdominal wash out, creation of end colostomy, explantation of abdominal wall mesh, abdominal wall closure(Not Applicable) - Carlos Marte DO S/P laparoscopic-assisted sigmoidectomy (05/06/24) Exploratory Laparotomy, Sigmoidectomy, Appendectomy, Drainage of Intrabdominal abscess, placement of Abthera WoundVAC >50 cm2(Not Applicable) - Carlos Marte DO Hx of craniotomy Hx of right coronary artery stent placement Family History (Updated 05/06/24 @ 21:20 by OSVALDO Gillis) Other Family history unknown Social History Smoking Status: Unknown if ever smoked Preferred Language: Albanian Communication Ability: Unable Senior 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 due to habitus no overt wheezing Cardiovascular: s1s2 Gastrointestinal (Abdomen): mid line incision/dressing intact Ostomy left, +bowel sweat, no other output diffusely tender to palpation BS diminished Musculoskeletal: gen weakness on bedrest Skin: pale mottling across abdomen, BUE, cool to touch warmer BLE mild edema BLE and BUE Neurologic: opens eyes to verbal, responds to simple yes/no drifts off easily but tells me about his abd pain, identifies site of worst pain Results & Data Vital Signs (Past 12 Hours) Vital Signs Temp Pulse Resp BP Pulse Ox O2 Del Method O2 Flow Rate 05/09/24 13:00 169/79 H 05/09/24 13:00 77 20 91 05/09/24 12:30 151/85 H 05/09/24 12:24 76 13 91 05/09/24 12:03 75 17 91 Nasal Cannula 2 08/20/24 12:01 174/93 H 05/09/24 11:30 135/87 05/09/24 11:27 83 21 93 05/09/24 11:03 86 27 H 93 Nasal Cannula 2 05/09/24 11:00 184/116 H 05/09/24 10:57 74 23 95 05/09/24 10:45 186/106 H 05/09/24 10:40 204/99 H 05/09/24 10:36 67 11 L 93 05/09/24 10:03 75 10 L 96 05/09/24 10:00 184/93 H 05/09/24 09:54 67 11 L 96 05/09/24 09:40 66 12 98 05/09/24 09:18 Mechanical Vent 05/09/24 09:09 63 8 L 95 05/09/24 09:01 185/99 H 05/09/24 09:00 192/94 H 05/09/24 09:00 61 11 L 94 05/09/24 08:41 175/99 H BiPAP 05/09/24 08:27 36.4 C L 58 L 6 L 97 05/09/24 08:09 37.4 C 72 11 L 98 05/09/24 08:00 05/09/24 08:00 65 05/09/24 07:00 142/86 H Mechanical Vent 05/09/24 07:00 37.6 C H 72 16 98 05/09/24 06:00 148/85 H 05/09/24 06:00 66 18 96 05/09/24 06:00 148/85 H 05/09/24 06:00 148/85 H 05/09/24 06:00 148/85 H 05/09/24 06:00 148/85 H 05/09/24 06:00 37.5 C 57 L 17 100 05/09/24 05:00 126/81 05/09/24 05:00 126/81 05/09/24 05:00 37.5 C 66 16 99 05/09/24 04:15 37.6 C H 76 16 122/82 99 05/09/24 04:03 122/82 05/09/24 04:00 37.6 C H 81 16 97 05/09/24 04:00 05/09/24 03:37 64 18 99 05/09/24 03:06 37.6 C H 58 L 16 99 05/09/24 03:00 166/97 H 05/09/24 03:00 166/97 H 05/09/24 02:42 36.5 C 58 L 16 99 FiO2 05/09/24 13:00 05/09/24 13:00 05/09/24 12:30 05/09/24 12:24 05/09/24 12:03 05/09/24 12:01 05/09/24 11:30 05/09/24 11:27 05/09/24 11:03 05/09/24 11:00 05/09/24 10:57 05/09/24 10:45 05/09/24 10:40 05/09/24 10:36 05/09/24 10:03 05/09/24 10:00 05/09/24 09:54 05/09/24 09:40 30 05/09/24 09:18 05/09/24 09:09 05/09/24 09:01 05/09/24 09:00 05/09/24 09:00 05/09/24 08:41 05/09/24 08:27 05/09/24 08:09 05/09/24 08:00 35 05/09/24 08:00 05/09/24 07:00 05/09/24 07:00 05/09/24 06:00 05/09/24 06:00 30 05/09/24 06:00 05/09/24 06:00 05/09/24 06:00 05/09/24 06:00 05/09/24 06:00 05/09/24 05:00 05/09/24 05:00 05/09/24 05:00 05/09/24 04:15 05/09/24 04:03 05/09/24 04:00 05/09/24 04:00 35 05/09/24 03:37 35 05/09/24 03:06 05/09/24 03:00 05/09/24 03:00 05/09/24 02:42 Laboratory Results 05/09/24 05/08/24 05/08/24 Range/Units 04:20 23:47 15:55 WBC 5.62 (4.8-10.8) K/ul RBC 3.66 L (4.70-6.10) M/uL Hgb 11.4 L (14.0-18.0) g/dl POC Hgb (14.0-18.0) g/dl Hct 34.6 L (42.0-52.0) % POC Hct (42-52) % MCV 94.5 (80.0-100.0) fL MCH 31.1 (25.0-34.0) pg MCHC 32.9 (32.0-36.0) g/dL RDW Std Deviation 47.0 H (36.4-46.3) fL RDW Coeff of Vinicio 13.5 (11.5-14.5) % Plt Count 187 (130-400) K/uL MPV 9.1 L (9.4-12.4) fL Immature Gran % (Auto) 8.7 % Neut % (Auto) 79.1 % Lymph % (Auto) 8.2 % Macon % (Auto) 3.6 % Eos % (Auto) 0.0 % Baso % (Auto) 0.4 % Neut # (Auto) 4.45 (1.40-6.50) K/uL Lymph # (Auto) 0.46 L (1.20-3.40) K/uL Macon # (Auto) 0.20 (0.11-0.59) K/uL Eos # (Auto) 0.00 (0.00-0.50) K/uL Baso # (Auto) 0.02 (0.00-0.20) K/uL Immature Gran # (Auto) 0.49 H (0.01-0.20) K/uL Polychromasia 1+ POC Sodium (135-144) mmol/L Sodium 137 (136-145) mmol/L POC Potassium (3.3-5.0) mmol/L Potassium 4.2 (3.5-5.1) mmol/L POC Chloride (101-112) mmol/L Chloride 104 (98-107) mmol/L Carbon Dioxide 27 (21-32) mmol/L POC Total CO2 (24-31) mmol/L Anion Gap 6 (3-11) POC Anion Gap (16-25) mmol/L POC BUN (7-18) mg/dl BUN 13 (6-23) mg/dl Creatinine 0.59 L (0.6-1.4) mg/dl POC Creatinine (0.6-1.3) mg/dl Est Cr Clr Drug Dosing 204.4 ml/min Est GFR ( Amer) 129.3 ml/min Est GFR (Non-Af Amer) 111.6 ml/min BUN/Creatinine Ratio 22.0 H (10-20) Glucose 111 H (70-99(Fasting)) mg/dl POC Glucose 111 H 76 (70-99) mg/dl POC Glucose (other) (70-99) mg/dl Lactate (0.4-2.0) mmol/L Calcium 8.0 L (8.6-10.3) mg/dl POC Ioniz Calcium Alireza (1.12-1.32) mmol/l Phosphorus (2.5-4.9) mg/dl Magnesium 2.0 (1.7-2.4) mg/dl Total Bilirubin (0.2-1.0) mg/dl AST (13-39) U/L ALT (7-52) U/L Alkaline Phosphatase (34-104) U/L Total Protein (6.0-8.3) gm/dl Albumin (3.4-5.0) gm/dl Globulin (2.5-4.0) gm/dl Albumin/Globulin Ratio (0.9-2) Lipase (11-82) U/L Urine Color Urine Appearance (Clear) Urine pH (4.5-7.5) Ur Specific Ingalls (1.000-1.030) Urine Protein (Negative) Urine Glucose (UA) (Negative) Urine Ketones (Negative) Urine Blood (Negative) Urine Nitrite (Negative) Urine Bilirubin (Negative) Urine Urobilinogen (Negative) Ur Leukocyte Esterase (Negative) Urine WBC (Auto) (0-5) /hpf Urine RBC (Auto) (0-2) /hpf U Hyaline Cast (Auto) (0-2) /lpf U Epithel Cells (Auto) (0-2) /hpf Urine Bacteria (Auto) (None Seen) Urine Mucus (None Prsent) Nasal Screen MRSA (PCR) (Negative) 05/08/24 05/08/24 05/07/24 Range/Units 04:59 03:46 Unknown WBC 5.28 (4.8-10.8) K/ul RBC 3.66 L (4.70-6.10) M/uL Hgb 11.4 L (14.0-18.0) g/dl POC Hgb (14.0-18.0) g/dl Hct 35.8 L (42.0-52.0) % POC Hct (42-52) % MCV 97.8 (80.0-100.0) fL MCH 31.1 (25.0-34.0) pg MCHC 31.8 L (32.0-36.0) g/dL RDW Std Deviation 50.9 H (36.4-46.3) fL RDW Coeff of Vinicio 14.0 (11.5-14.5) % Plt Count 169 (130-400) K/uL MPV 9.2 L (9.4-12.4) fL Immature Gran % (Auto) 6.8 % Neut % (Auto) 73.3 % Lymph % (Auto) 14.2 % Macon % (Auto) 5.3 % Eos % (Auto) 0.2 % Baso % (Auto) 0.2 % Neut # (Auto) 3.87 (1.40-6.50) K/uL Lymph # (Auto) 0.75 L (1.20-3.40) K/uL Macon # (Auto) 0.28 (0.11-0.59) K/uL Eos # (Auto) 0.01 (0.00-0.50) K/uL Baso # (Auto) 0.01 (0.00-0.20) K/uL Immature Gran # (Auto) 0.36 H (0.01-0.20) K/uL Polychromasia POC Sodium (135-144) mmol/L Sodium 138 (136-145) mmol/L POC Potassium (3.3-5.0) mmol/L Potassium 4.3 (3.5-5.1) mmol/L POC Chloride (101-112) mmol/L Chloride 103 (98-107) mmol/L Carbon Dioxide 31 (21-32) mmol/L POC Total CO2 (24-31) mmol/L Anion Gap 4 (3-11) POC Anion Gap (16-25) mmol/L POC BUN (7-18) mg/dl BUN 14 (6-23) mg/dl Creatinine 0.82 (0.6-1.4) mg/dl POC Creatinine (0.6-1.3) mg/dl Est Cr Clr Drug Dosing 144.1 ml/min Est GFR ( Amer) 113.0 ml/min Est GFR (Non-Af Amer) 97.5 ml/min BUN/Creatinine Ratio 17.1 (10-20) Glucose 89 (70-99(Fasting)) mg/dl POC Glucose 81 (70-99) mg/dl POC Glucose (other) (70-99) mg/dl Lactate (0.4-2.0) mmol/L Calcium 8.4 L (8.6-10.3) mg/dl POC Ioniz Calcium Alireza (1.12-1.32) mmol/l Phosphorus (2.5-4.9) mg/dl Magnesium 2.3 (1.7-2.4) mg/dl Total Bilirubin (0.2-1.0) mg/dl AST (13-39) U/L ALT (7-52) U/L Alkaline Phosphatase (34-104) U/L Total Protein (6.0-8.3) gm/dl Albumin (3.4-5.0) gm/dl Globulin (2.5-4.0) gm/dl Albumin/Globulin Ratio (0.9-2) Lipase (11-82) U/L Urine Color Urine Appearance (Clear) Urine pH (4.5-7.5) Ur Specific Ingalls (1.000-1.030) Urine Protein (Negative) Urine Glucose (UA) (Negative) Urine Ketones (Negative) Urine Blood (Negative) Urine Nitrite (Negative) Urine Bilirubin (Negative) Urine Urobilinogen (Negative) Ur Leukocyte Esterase (Negative) Urine WBC (Auto) (0-5) /hpf Urine RBC (Auto) (0-2) /hpf U Hyaline Cast (Auto) (0-2) /lpf U Epithel Cells (Auto) (0-2) /hpf Urine Bacteria (Auto) (None Seen) Urine Mucus (None Prsent) Nasal Screen MRSA (PCR) Negative (Negative) 05/07/24 05/07/24 05/07/24 Range/Units 23:57 17:39 12:01 WBC (4.8-10.8) K/ul RBC (4.70-6.10) M/uL Hgb (14.0-18.0) g/dl POC Hgb (14.0-18.0) g/dl Hct (42.0-52.0) % POC Hct (42-52) % MCV (80.0-100.0) fL MCH (25.0-34.0) pg MCHC (32.0-36.0) g/dL RDW Std Deviation (36.4-46.3) fL RDW Coeff of Vinicio (11.5-14.5) % Plt Count (130-400) K/uL MPV (9.4-12.4) fL Immature Gran % (Auto) % Neut % (Auto) % Lymph % (Auto) % Macon % (Auto) % Eos % (Auto) % Baso % (Auto) % Neut # (Auto) (1.40-6.50) K/uL Lymph # (Auto) (1.20-3.40) K/uL Macon # (Auto) (0.11-0.59) K/uL Eos # (Auto) (0.00-0.50) K/uL Baso # (Auto) (0.00-0.20) K/uL Immature Gran # (Auto) (0.01-0.20) K/uL Polychromasia POC Sodium (135-144) mmol/L Sodium (136-145) mmol/L POC Potassium (3.3-5.0) mmol/L Potassium (3.5-5.1) mmol/L POC Chloride (101-112) mmol/L Chloride (98-107) mmol/L Carbon Dioxide (21-32) mmol/L POC Total CO2 (24-31) mmol/L Anion Gap (3-11) POC Anion Gap (16-25) mmol/L POC BUN (7-18) mg/dl BUN (6-23) mg/dl Creatinine (0.6-1.4) mg/dl POC Creatinine (0.6-1.3) mg/dl Est Cr Clr Drug Dosing ml/min Est GFR ( Amer) ml/min Est GFR (Non-Af Amer) ml/min BUN/Creatinine Ratio (10-20) Glucose (70-99(Fasting)) mg/dl POC Glucose 91 109 H 127 H (70-99) mg/dl POC Glucose (other) (70-99) mg/dl Lactate (0.4-2.0) mmol/L Calcium (8.6-10.3) mg/dl POC Ioniz Calcium Alireza (1.12-1.32) mmol/l Phosphorus (2.5-4.9) mg/dl Magnesium (1.7-2.4) mg/dl Total Bilirubin (0.2-1.0) mg/dl AST (13-39) U/L ALT (7-52) U/L Alkaline Phosphatase (34-104) U/L Total Protein (6.0-8.3) gm/dl Albumin (3.4-5.0) gm/dl Globulin (2.5-4.0) gm/dl Albumin/Globulin Ratio (0.9-2) Lipase (11-82) U/L Urine Color Urine Appearance (Clear) Urine pH (4.5-7.5) Ur Specific Ingalls (1.000-1.030) Urine Protein (Negative) Urine Glucose (UA) (Negative) Urine Ketones (Negative) Urine Blood (Negative) Urine Nitrite (Negative) Urine Bilirubin (Negative) Urine Urobilinogen (Negative) Ur Leukocyte Esterase (Negative) Urine WBC (Auto) (0-5) /hpf Urine RBC (Auto) (0-2) /hpf U Hyaline Cast (Auto) (0-2) /lpf U Epithel Cells (Auto) (0-2) /hpf Urine Bacteria (Auto) (None Seen) Urine Mucus (None Prsent) Nasal Screen MRSA (PCR) (Negative) 05/07/24 05/07/24 05/06/24 Range/Units 03:50 03:00 Unknown WBC 6.41 (4.8-10.8) K/ul RBC 4.21 L (4.70-6.10) M/uL Hgb 13.2 L (14.0-18.0) g/dl POC Hgb (14.0-18.0) g/dl Hct 40.9 L (42.0-52.0) % POC Hct (42-52) % MCV 97.1 (80.0-100.0) fL MCH 31.4 (25.0-34.0) pg MCHC 32.3 (32.0-36.0) g/dL RDW Std Deviation 51.3 H (36.4-46.3) fL RDW Coeff of Vinicio 14.2 (11.5-14.5) % Plt Count 204 (130-400) K/uL MPV 9.1 L (9.4-12.4) fL Immature Gran % (Auto) 1.9 % Neut % (Auto) 87.3 % Lymph % (Auto) 6.1 % [place]on % (Auto) 4.1 % Eos % (Auto) 0.0 % Baso % (Auto) 0.6 % Neut # (Auto) 5.60 (1.40-6.50) K/uL Lymph # (Auto) 0.39 L (1.20-3.40) K/uL Macon # (Auto) 0.26 (0.11-0.59) K/uL Eos # (Auto) 0.00 (0.00-0.50) K/uL Baso # (Auto) 0.04 (0.00-0.20) K/uL Immature Gran # (Auto) 0.12 (0.01-0.20) K/uL Polychromasia POC Sodium (135-144) mmol/L Sodium 135 L (136-145) mmol/L POC Potassium (3.3-5.0) mmol/L Potassium 4.4 (3.5-5.1) mmol/L POC Chloride (101-112) mmol/L Chloride 99 (98-107) mmol/L Carbon Dioxide 29 (21-32) mmol/L POC Total CO2 (24-31) mmol/L Anion Gap 7 (3-11) POC Anion Gap (16-25) mmol/L POC BUN (7-18) mg/dl BUN 18 (6-23) mg/dl Creatinine 0.98 (0.6-1.4) mg/dl POC Creatinine (0.6-1.3) mg/dl Est Cr Clr Drug Dosing 121.1 ml/min Est GFR ( Amer) 98.1 ml/min Est GFR (Non-Af Amer) 84.6 ml/min BUN/Creatinine Ratio 18.4 (10-20) Glucose 151 H (70-99(Fasting)) mg/dl POC Glucose 120 H (70-99) mg/dl POC Glucose (other) (70-99) mg/dl Lactate (0.4-2.0) mmol/L Calcium 8.7 (8.6-10.3) mg/dl POC Ioniz Calcium Alireza (1.12-1.32) mmol/l Phosphorus 4.1 (2.5-4.9) mg/dl Magnesium 2.0 (1.7-2.4) mg/dl Total Bilirubin (0.2-1.0) mg/dl AST (13-39) U/L ALT (7-52) U/L Alkaline Phosphatase (34-104) U/L Total Protein (6.0-8.3) gm/dl Albumin (3.4-5.0) gm/dl Globulin (2.5-4.0) gm/dl Albumin/Globulin Ratio (0.9-2) Lipase (11-82) U/L Urine Color Dark Yellow Urine Appearance Cloudy A (Clear) Urine pH 5.5 (4.5-7.5) Ur Specific Ingalls 1.030 (1.000-1.030) Urine Protein 2+ H (Negative) Urine Glucose (UA) Negative (Negative) Urine Ketones Negative (Negative) Urine Blood Negative (Negative) Urine Nitrite Negative (Negative) Urine Bilirubin 1+ H (Negative) Urine Urobilinogen Negative (Negative) Ur Leukocyte Esterase Trace H (Negative) Urine WBC (Auto) 0-5 (0-5) /hpf Urine RBC (Auto) 0-2 (0-2) /hpf U Hyaline Cast (Auto) 11-20 H (0-2) /lpf U Epithel Cells (Auto) 6-10 H (0-2) /hpf Urine Bacteria (Auto) None Seen (None Seen) Urine Mucus Present A (None Prsent) Nasal Screen MRSA (PCR) (Negative) 05/06/24 05/06/24 05/06/24 Range/Units 21:38 21:33 21:27 WBC 4.47 L D (4.8-10.8) K/ul RBC 4.62 L (4.70-6.10) M/uL Hgb 14.5 (14.0-18.0) g/dl POC Hgb (14.0-18.0) g/dl Hct 44.5 (42.0-52.0) % POC Hct (42-52) % MCV 96.3 (80.0-100.0) fL MCH 31.4 (25.0-34.0) pg MCHC 32.6 (32.0-36.0) g/dL RDW Std Deviation 50.4 H (36.4-46.3) fL RDW Coeff of Vinicio 14.1 (11.5-14.5) % Plt Count 199 (130-400) K/uL MPV 8.9 L (9.4-12.4) fL Immature Gran % (Auto) 2.0 % Neut % (Auto) 86.3 % Lymph % (Auto) 7.4 % [place] % (Auto) 3.4 % Eos % (Auto) 0.0 % Baso % (Auto) 0.9 % Neut # (Auto) 3.86 (1.40-6.50) K/uL Lymph # (Auto) 0.33 L (1.20-3.40) K/uL [place] # (Auto) 0.15 (0.11-0.59) K/uL Eos # (Auto) 0.00 (0.00-0.50) K/uL Baso # (Auto) 0.04 (0.00-0.20) K/uL Immature Gran # (Auto) 0.09 (0.01-0.20) K/uL Polychromasia POC Sodium (135-144) mmol/L Sodium 134 L (136-145) mmol/L POC Potassium (3.3-5.0) mmol/L Potassium 4.7 (3.5-5.1) mmol/L POC Chloride (101-112) mmol/L Chloride 101 (98-107) mmol/L Carbon Dioxide 25 (21-32) mmol/L POC Total CO2 (24-31) mmol/L Anion Gap 8 (3-11) POC Anion Gap (16-25) mmol/L POC BUN (7-18) mg/dl BUN 22 (6-23) mg/dl Creatinine 0.85 (0.6-1.4) mg/dl POC Creatinine (0.6-1.3) mg/dl Est Cr Clr Drug Dosing 139.6 ml/min Est GFR ( Amer) 111.3 ml/min Est GFR (Non-Af Amer) 96.0 ml/min BUN/Creatinine Ratio 25.9 H (10-20) Glucose 118 H (70-99(Fasting)) mg/dl POC Glucose 116 H (70-99) mg/dl POC Glucose (other) (70-99) mg/dl Lactate 1.7 (0.4-2.0) mmol/L Calcium 9.1 (8.6-10.3) mg/dl POC Ioniz Calcium Alireza (1.12-1.32) mmol/l Phosphorus (2.5-4.9) mg/dl Magnesium (1.7-2.4) mg/dl Total Bilirubin (0.2-1.0) mg/dl AST (13-39) U/L ALT (7-52) U/L Alkaline Phosphatase (34-104) U/L Total Protein (6.0-8.3) gm/dl Albumin (3.4-5.0) gm/dl Globulin (2.5-4.0) gm/dl Albumin/Globulin Ratio (0.9-2) Lipase (11-82) U/L Urine Color Urine Appearance (Clear) Urine pH (4.5-7.5) Ur Specific [place] (1.000-1.030) Urine Protein (Negative) Urine Glucose (UA) (Negative) Urine Ketones (Negative) Urine Blood (Negative) Urine Nitrite (Negative) Urine Bilirubin (Negative) Urine Urobilinogen (Negative) Ur Leukocyte Esterase (Negative) Urine WBC (Auto) (0-5) /hpf Urine RBC (Auto) (0-2) /hpf U Hyaline Cast (Auto) (0-2) /lpf U Epithel Cells (Auto) (0-2) /hpf Urine Bacteria (Auto) (None Seen) Urine Mucus (None Prsent) Nasal Screen MRSA (PCR) (Negative) 05/06/24 05/06/24 Range/Units 15:43 15:35 WBC 10.81 H (4.8-10.8) K/ul RBC 4.82 (4.70-6.10) M/uL Hgb 15.1 (14.0-18.0) g/dl POC Hgb 16.0 (14.0-18.0) g/dl Hct 45.4 (42.0-52.0) % POC Hct 47 (42-52) % MCV 94.2 (80.0-100.0) fL MCH 31.3 (25.0-34.0) pg MCHC 33.3 (32.0-36.0) g/dL RDW Std Deviation 48.8 H (36.4-46.3) fL RDW Coeff of Vinicio 14.0 (11.5-14.5) % Plt Count 274 (130-400) K/uL MPV 9.1 L (9.4-12.4) fL Immature Gran % (Auto) 1.9 % Neut % (Auto) 86.0 % Lymph % (Auto) 6.3 % [place] % (Auto) 5.4 % Eos % (Auto) 0.1 % Baso % (Auto) 0.3 % Neut # (Auto) 9.30 H (1.40-6.50) K/uL Lymph # (Auto) 0.68 L (1.20-3.40) K/uL [place] # (Auto) 0.58 (0.11-0.59) K/uL Eos # (Auto) 0.01 (0.00-0.50) K/uL Baso # (Auto) 0.03 (0.00-0.20) K/uL Immature Gran # (Auto) 0.21 H (0.01-0.20) K/uL Polychromasia POC Sodium 137 (135-144) mmol/L Sodium 136 (136-145) mmol/L POC Potassium 5.1 H (3.3-5.0) mmol/L Potassium 5.0 (3.5-5.1) mmol/L POC Chloride 101 (101-112) mmol/L Chloride 98 (98-107) mmol/L Carbon Dioxide 29 (21-32) mmol/L POC Total CO2 29 (24-31) mmol/L Anion Gap 9 (3-11) POC Anion Gap 13.0 L (16-25) mmol/L POC BUN 24 H (7-18) mg/dl BUN 24 H (6-23) mg/dl Creatinine 1.12 (0.6-1.4) mg/dl POC Creatinine 1.1 (0.6-1.3) mg/dl Est Cr Clr Drug Dosing 106.0 ml/min Est GFR ( Amer) 83.5 ml/min Est GFR (Non-Af Amer) 72.0 ml/min BUN/Creatinine Ratio 21.4 H (10-20) Glucose 106 H (70-99(Fasting)) mg/dl POC Glucose (70-99) mg/dl POC Glucose (other) 106 H (70-99) mg/dl Lactate (0.4-2.0) mmol/L Calcium 10.1 (8.6-10.3) mg/dl POC Ioniz Calcium Alireza 1.20 (1.12-1.32) mmol/l Phosphorus (2.5-4.9) mg/dl Magnesium (1.7-2.4) mg/dl Total Bilirubin 0.6 (0.2-1.0) mg/dl AST 18 (13-39) U/L ALT 26 (7-52) U/L Alkaline Phosphatase 75 (34-104) U/L Total Protein 7.4 (6.0-8.3) gm/dl Albumin 3.7 (3.4-5.0) gm/dl Globulin 3.7 (2.5-4.0) gm/dl Albumin/Globulin Ratio 1.0 (0.9-2) Lipase 7 L (11-82) U/L Urine Color Urine Appearance (Clear) Urine pH (4.5-7.5) Ur Specific Ingalls (1.000-1.030) Urine Protein (Negative) Urine Glucose (UA) (Negative) Urine Ketones (Negative) Urine Blood (Negative) Urine Nitrite (Negative) Urine Bilirubin (Negative) Urine Urobilinogen (Negative) Ur Leukocyte Esterase (Negative) Urine WBC (Auto) (0-5) /hpf Urine RBC (Auto) (0-2) /hpf U Hyaline Cast (Auto) (0-2) /lpf U Epithel Cells (Auto) (0-2) /hpf Urine Bacteria (Auto) (None Seen) Urine Mucus (None Prsent) Nasal Screen MRSA (PCR) (Negative) Diagnostic Findings Abdomen/Pelvis CT 05/06/24 15:29 CT SCAN OF THE ABDOMEN AND PELVIS WITH IV CONTRAST CLINICAL HISTORY: Lower abdominal pain. COMPARISON STUDY: No priors. TECHNIQUE: Following the IV administration of 120 cc of Optiray 320, CT scan of the abdomen and pelvis is performed from the lung bases to the proximal femora. Images are reviewed in the axial, sagittal, and coronal planes. IV contrast was administered without complication. A dose lowering technique was utilized adhering to the principles of ALARA. CT DOSE: 1676.25 mGy.cm FINDINGS: Lung bases: The heart is normal in size and without pericardial effusion. There is trace pneumomediastinum. The lung bases are clear negative dependent scarring/atelectasis. Liver: The contrast-enhanced liver is size and contour. Attenuation is diffusely diminished indicating steatosis. Fatty sparing is seen adjacent to the gallbla dder fossa. There is no intrahepatic biliary ductal dilatation. The hepatic veins and portal veins are patent. Gallbladder: Unremarkable. Spleen: Normal in size and attenuation. Pancreas: Unremarkable. Adrenal glands: Unremarkable. Kidneys: The contrast enhanced kidneys are normal in size and without hydronephrosis. The kidneys enhance symmetrically. Abdominal vasculature: There is advanced atherosclerotic calcification and mild ectasia of the abdominal aorta. Bowel: There is moderate colonic fecal retention. No bowel obstruction is seen. There is moderate colonic diverticulosis without clear CT evidence of acute diverticulitis. There are thick-walled and inflamed loop of small bowel in the central lower abdomen with surrounding fluid seen on axial image #293. The appendix is well-visualized and normal. Peritoneum: There is a large volume of intraperitoneal free air. Interloop fluid is seen in the lower abdomen and there is trace free fluid in the pelvis. No organized fluid collection is seen to suggest abscess. There is evidence of prior ventral hernia repair. Lymphadenopathy: None. Pelvic viscera: The bladder, prostate, and seminal vesicles are normal as visu alized. Skeletal structures: There is moderate lumbosacral spondylosis. Mild sclerotic changes seen in the sacroiliac joints. No lytic or blastic lesions are seen. IMPRESSION: 1. There is a large volume of intraperitoneal free air indicative of visceral perforation. Surgical evaluation is advised. 2. The site of perforation is not clearly delineated. 3. There are inflamed loops of small bowel in the central lower abdomen with surrounding fluid, as well as significant diverticular disease of the left colon. Although not definitive, one of these sites is favored as the site of perforation. 4. No bowel obstruction is seen. 5. No organized fluid collection is identified to suggest abscess. 6. Hepatic steatosis. 7. There is trace pneumomediastinum, likely related to intraperitoneal free air. 8. Additional findings as above. ACT 112: Negative or not required by law. Electronically signed by: Goyo Yun M.D. 05/06/2024 4:44 PM Chest X-Ray 05/06/24 20:25 XR chest 1V portable HISTORY: eval ETT and OGT placement post OR COMPARISON: Abdomen and pelvis CT 05/06/2024. FINDINGS: Endotracheal tube terminates 7.3 cm from the courtney. Nasogastric tube terminates below the diaphragm. There are low lung volumes. The heart is mildly enlarged. Bibasilar linear densities favor subsegmental atelectasis. No pneumothorax. Pneumoperitoneum and pneumomediastinum again noted. IMPRESSION: Endotracheal tube terminates 7.3 cm from the courtney. This should be advanced by approximately 2-3 cm. Pneumomediastinum and pneumoperitoneum again noted. ACT 112: Negative or not required by law. Electronically signed by: Bobby Penn M.D. 05/07/2024 8:01 AM Chest X-Ray 05/07/24 06:00 XR chest 1V portable HISTORY: eval lines and tubes and lung parks while intubat COMPARISON: Chest 05/06/2024. FINDINGS: The endotracheal tube terminates 7.6 cm from the courtney. Nasogastric tube terminates below the diaphragm. No pneumothorax. Right paratracheal thickening remains unchanged. The pneumomediastinum and pneumoperitoneum is again noted. Left basilar linear densities persist and favor subsegmental atelectasis. IMPRESSION: 1. Endotracheal tube terminates 7.6 cm from the courtney. This should be advanced by 2 to 3 cm. 2. The pneumomediastinum and pneumoperitoneum are again noted. ACT 112: Negative or not required by law. Electronically signed by: Bobby Penn M.D. 05/07/2024 8:01 AM Chest X-Ray 05/08/24 06:00 XR chest 1V portable CLINICAL HISTORY: eval lines and tubes and lung parks while intubat TECHNIQUE: Single frontal radiograph of the chest was obtained. Comparison: Comparison is made to chest radiograph 06/07/2024 FINDINGS: Lines and tubes are stable. Cardiomegaly is noted. There is suggestion of previously noted pneumomediastinum and pneumoperitoneum. Lungs are underinflated but clear. No evidence of pleural effusion or pneumothorax. IMPRESSION: Stable exam. Pneumomediastinum and pneumoperitoneum are partially visualized. Stable lines and tubes. ACT 112: Negative or not required by law. Electronically signed by: Alonso Guevara M.D. 05/08/2024 7:00 AM Chest X-Ray 05/09/24 06:00 SINGLE VIEW CHEST CLINICAL HISTORY: Respiratory failure FINDINGS: 2 AP, portable, semierect chest radiographs are compared to study dated 05/08/2024. Endotracheal and enteric tubes are unchanged in position. The heart is enlarged. The pulmonary vasculature is not congested. Chronic interst itial thickening is similar to previous. There is bibasilar scarring/atelectasis. No airspace consolidation or large pleural effusion is identified. No pneumothorax is seen. The bony thorax is grossly intact. IMPRESSION: 1. Stable lines and tubes. 2. Cardiomegaly without radiographic evidence of congestive failure. ACT 112: Negative or not required by law. Electronically signed by: Goyo Yun M.D. 05/09/2024 11:53 AM PG Care Time/CCT Total # of Minutes Spent Total Time Spent with Patient: Total time spent is greater than 50% in coordination of care (as documented) at patient's floor/unit and/or counseling patient: I spent 105 minutes overall addressing this complex case: 25 min in medical data review/discussion with referring provider(s) and/or preparation for the visit including OSH data review and discussion with OSH providers 20 min in direct interaction with the patient/exam 25 min in Advance Care Planning/Goals of Care discussions as detailed above in note (must be >16min) 15 min in subsequent review and synthesis of assessment and plan 20 min communicating with other providers regarding the saeid brown's case: CCM, nursing Advanced Care Planning 33497 Advanced Care Planning 30 [place] [address] IN/OBS CONSULT LVL 5,80M (25 - SIGNIFICANT, SEPARATELY IDENTIFIABLE ) Patient Type New Medical Decision Making High Complexity Diagnoses Cancer related pain G89.3 Abdominal pain R10.9 Discussion about advance care planning held with family member Z71.0 Palliative care by specialist Z51.5 Glioblastoma C71.9 Bowel perforation K63.1 Additional Codes Advanced Care Planning - 93119 Advanced Care Planning 30 Min: [id number] Advanced Care Planning 30 Min ([id number])
[2024-05-09] MEDS: MoRPHine SULFATE 2 MG/ML CARP IV SCH (16:23)
[2024-05-10 05:06] LABS: Hematocrit (blood only) 40.5 % (42.0-52.0); Hemoglobin 13.1 g/dl (14.0-18.0); Mean Corpuscular Hgb Conc 32.3 g/dL (32.0-36.0); Mean Corpuscular Volume 95.7 fL (80.0-100.0); Mean Platelet Volume 9.1 fL (9.4-12.4); Platelet Count 202 K/uL (130-400); RDW Coefficient of Variation 14.2 % (11.5-14.5); RDW Standard Deviation 49.3 fL (36.4-46.3); Red Blood Count 4.23 M/uL (4.70-6.10); White Blood Count 6.46 K/ul (4.8-10.8)
[2024-05-10 05:23] LABS: Calcium 8.4 mg/dl (8.6-10.3); Creatinine Clr Calc Pharmacy 141.3 ml/min; Est GFR (African American) 111.3 ml/min; Magnesium 2.1 mg/dl (1.7-2.4); Potassium 3.6 mmol/L (3.5-5.1)
[2024-05-10 05:30] LABS: RBC Morphology Unremarkable
[2024-05-10 07:45] LABS: ALC (manual) 0.97 K/uL (1.2-3.4); ANC (manual) 4.91 K/uL (1.4-6.5); Lymphocytes # (manual) 0.97 K/uL (1.2-3.4); Metamyelocytes # (manual) 0.19 K/uL (0-0); Monocytes # (manual) 0.26 K/uL (0.11-0.59); Myelocytes # (manual) 0.13 K/uL (0-0); Neutrophils # (manual) 4.91 K/uL (1.40-6.50); Neutrophils % (manual) 76 %
--- NOTE | 2024-05-10 07:46 | Critical Care Progress Note ---
Date of Service May 10, 2024 Assessment & Plan (1) Glioblastoma: (2) Bowel perforation: (3) Right lower quadrant abdominal pain: (4) Pneumoperitoneum of unknown etiology: (5) Hypertension: (6) CAD (coronary artery disease): (7) On mechanically assisted ventilation: Plan Reason Critically Ill: 58 YOM presents to ER with worsening abdominal pain found to have peritonitis and free air. Taken for emergent ex-lap found with purulent fluid and abscess, left open and intubated on mechanical ventilation. Neuro - Sedation for mechanical ventilation, Hx Glioblastoma, Hx Anxiety and Depression CAM ICU: Negative - Glioblastoma with history of resection - Reportedly left temporal WHO grade IV - MRI 11/13 per OSH records- left tumor resection with mild residual tumor and small right frontal meningioma - undergoing palliative chemo/radiation- Temodar for 6 months then Optitune device and on Lomustine 40mg orally at home - Keppra 500mg PO q12 for prophylaxis - Hold Decadron 2mg at this time - Anxiety/Depression- Hold home agents of Buspirone Wellbutrin resumed 05/10/2024 Cardiac - CAD, hx of stents and AK, HTN, HLD On metoprolol, statin as well as aspirin at home Respiratory - Intubation requiring mechanical sedation, ALEKSANDR with CPAP -- S/p VDRF Extubated 05/09/2024 --ALEKSANDR Continue with CPAP GI - bowel perforation with purulent peritonitis and abscess -S/p OR 05/06/2024, repeat OR and wound closure 05/08/2024 with colostomy -Surgery on board RENAL/LYTES - No acute needs at this time -Monitor BUNs/creatinine - Owens per gravity while intubated - remove once extubated ENDO - No acute needs - ICU hyper/hypoglycemic protocols HEME - Glioblastoma as above - hold agents for now ID - Peritonitis in setting of bowel perforation with abscess noted - Blood cultures obtained in ICU after abx therapy -Abdominal culture growing E. coli which is pansensitive - As he is immunocompromised with active chemo/radiation therapy - Currently on Zosyn, complete total 7 days and caspofungin (will give for total of 5 days) CODE STATUS: DNR/DNI in event of cardiac arrest. Patient with significant malignancy history undergoing therapy, this has been felt to be possible correctable event: Pneumoperitoneum. Continue current level of care however patient would not want heroics in event of cardiac arrest --Prophylaxis VTE: Heparin GI: Pantoprazole Lines: Peripherals, Owens Diet: Clear liquids Plan: In/out: -4.1 L, urine output 5235 Potassium being replaced, DC standing hydralazine and changed to as needed, start patient on Norvasc 10 mg on a daily basis Given the patient is bradycardic, beta-blockers would not be a good option. Increase morphine to 3 mg every 4 given the patient is still getting 2 mg as needed every 2 hours. Resume Wellbutrin, change Keppra pantoprazole to p.o. Recommend to continue with CPAP whenever patient is sleeping Case was discussed with primary team. Okay to be downgraded from medical floor Please note the above document was generated using voice recognition software. It may contain grammatical, syntax or spelling errors.Any formal questions or concerns about the content, text or information contained within the body of this dictation should be directly addressed to the provider for clarification. Admission and Anticipated Discharge Date Admission Date: May 06, 2024 Subjective Patient seen and examined at bedside. No acute distress, no adverse events overnight He was saturating 96% on 4 L nasal cannula, I went down to 2 L Systolic blood pressure was in the 160s. He was awake and alert, answering questions appropriately. He is hard to hear and slow to respond Denies any headache, no chest pain, no shortness of breath Did complain of abdominal tenderness. No nausea vomiting Has been afebrile Review of Systems 2 Review of Systems: All systems reviewed & are unremarkable except as noted in Subjective Physical Exam 2 Physical Exam: Constitutional: No acute distress HEENT: EOMI, PERRLA, hard to hear Respiratory system: Decreased air entry bilaterally, no wheeze, no rhonchi, minimal crackles bilateral lower lobes CVS: S1-S2 positive, no murmurs or gallops Abdomen: Soft, nontender, nondistended, decreased bowel sounds x4, colostomy in place with gas Extremities: +2 pulses bilaterally radialis/ dorsalis pedis, no cyanosis, no edema Neuro: Awake alert oriented to self, moving all extremities spontaneously Psych: Normal mood and affect G/U: Positive Owens Skin: no rashes, warm and dry Lymphatic: no cervical or axillary lymphadenopathy Results & Data Results & Data Vital Signs (Past 12 Hours) Vital Signs Temp Pulse Resp BP Pulse Ox O2 Del Method O2 Flow Rate 05/10/24 06:03 85 18 96 05/10/24 06:00 141/78 H 05/10/24 06:00 141/78 H 05/10/24 06:00 84 18 141/78 H 96 4 05/10/24 05:09 86 18 97 05/10/24 04:30 37.5 C 05/10/24 04:00 144/87 H 05/10/24 04:00 71 21 144/87 H 96 4 05/10/24 02:00 87 20 145/91 H 95 05/10/24 01:00 86 18 139/90 96 05/10/24 00:00 37.3 C 05/10/24 00:00 85 18 151/77 H 95 05/09/24 23:51 89 05/09/24 23:00 144/80 H 05/09/24 23:00 86 18 144/80 H 96 4 05/09/24 22:48 85 20 168/87 H 05/09/24 22:45 37.6 C 05/09/24 22:00 88 20 163/98 H 95 4 05/09/24 21:15 20 05/09/24 21:00 92 H 20 139/86 95 4 05/09/24 20:07 Nasal Cannula 4 05/09/24 20:00 88 19 164/86 H 95 4 Laboratory Results 05/10/24 04:52 05/10/24 04:52 Coding Level of Care Code 27618 SUB INP/OBS CARE 3/50MIN Diagnoses Glioblastoma C71.9 Bowel perforation K63.1 Right lower quadrant abdominal pain R10.31 Pneumoperitoneum of unknown etiology K66.8 Hypertension I10 CAD (coronary artery disease) I25.10 On mechanically assisted ventilation Z99.11
[2024-05-10] MEDS: POTASSIUM CHLORIDE / WTR 10 MEQ/100 ML PLCT IV SCH (08:34)
[2024-05-10] MEDS ORDERED: hydrALAZINE HCL 20 MG/ML VIAL IV PRN (10:17)
[2024-05-10] MEDS: PANTOprazole 40 MG TAB PO ONE (10:50)
[2024-05-10] MEDS: amLODIPine BESYLATE 5 MG TAB PO ONE (10:50)
[2024-05-10] MEDS: levETIRAcetam 500 MG TAB PO ONE (10:50)
[2024-05-10] MEDS: MoRPHine SULFATE 4 MG/ML 1 ML CARP\\VIAL IV SCH (10:57)
--- NOTE | 2024-05-10 11:30 | Surgery Progress Note ---
Date of Service May 10, 2024 Assessment & Plan (1) S/P exploratory laparotomy: Plan: s/p exlap sigmoidectomy/appendectomy and take-back for washout and colostomy formation WBC 6.4, Hbg 13. Temps 99-100F. Pt resting in bed, when asked he endorses + abdominal pain and tenderness. no nausea/vomiting Ostomy with some sweat and gas in bag. Generalized discomfort to palpation On clears, will continue on this until further bowel function ICU adjusted pain regimen and resumed some home meds. deemed stable for downgrade from ICU. will tsfer out and consult hospitalists for assistance Order PT/OT, encourage OOB and pulm toilet Continue IV abx/antifungal as above. doing ok. having some pain. spoke with nursing who is keeping up with his meds stoma looks ok. viable so far. no function yet. arvind clears. no nausea though his abdomen is distended. would limit po intake until better bowel fx Admission and Anticipated Discharge Date Admission Date: May 06, 2024 Subjective Patient reports he is "not feeling so good" When prompted he says he has abdominal pain. Denies nausea/vomiting. Physical Exam Physical Exam: resting, but arousable, appears in no distress Respiratory: on room air Gastrointestinal (Abdomen): Inspection/Auscultation: + abdominal surgical incision (c/d/i) Percussion/Palpation: + abdomen tender (generalized discomfort to palpation ) and abdomen soft ostomy dark red with some sweat and gas in bag Results & Data Vital Signs (Past 12 Hours) Vital Signs Temp Pulse Resp BP Pulse Ox O2 Del Method O2 Flow Rate 05/10/24 08:30 Nasal Cannula 4 05/10/24 08:00 95 H 17 167/92 H 95 05/10/24 08:00 83 05/10/24 07:00 88 16 156/86 H 96 05/10/24 06:03 85 18 96 05/10/24 06:00 141/78 H 05/10/24 06:00 141/78 H 05/10/24 06:00 84 18 141/78 H 96 4 05/10/24 05:09 86 18 97 05/10/24 04:30 99.5 F 05/10/24 04:00 144/87 H 05/10/24 04:00 71 21 144/87 H 96 4 05/10/24 02:00 87 20 145/91 H 95 05/10/24 01:00 86 18 139/90 96 05/10/24 00:00 99.1 F 05/10/24 00:00 85 18 151/77 H 95 05/09/24 23:51 89 PG Care Time/CCT Total # of Minutes Spent Total Time Spent with Patient: Total time spent is greater than 50% in coordination of care (as documented) at patient's floor/unit and/or counseling patient: Coding Level of Care Code 34161 Post Operative Follow-Up Diagnoses S/P exploratory laparotomy Z98.890
--- NOTE | 2024-05-10 12:43 | Hospitalist Consultation ---
Date of Consultation May 10, 2024 Assessment & Plan (1) S/P exploratory laparotomy: Plan Remy Lujan is a 58y/o M with PMHx of dyslipidemia, ALEKSANDR on CPAP, CAD s/p stent placement, history of AZ [~2014], HTN, ischemic cardiomyopathy, bilateral Meniere disease, erythrocytosis, glioblastoma s/p craniotomy + resection and other problems listed below who was referred to our [facility] Hospitalist Team for post-operative medical management. S/P Exploratory Laparotomy x 2 Patient underwent exploratory laparotomy on 05/06 as a result of pneumoperitoneum and was found to have a sigmoid perforation with purulent peritonitis and intra-abdominal abscess. During that operation on 05/06, sigmoidectomy and appendectomy were also performed. Patient then underwent re-exploration laparotomy on 05/08 for abdominal wash-out and creation of end colostomy. He is now post-op day #2 following his re-exploration laparotomy with wash-out and colostomy formation. Patient was extubated on 05/09, has been successfully off of mechanical ventilation for over 24 hours. ICU has been adjusting the patient's pain regimen and resumed some of his home medications. He is tolerating a clear liquid diet and can now take medications orally. Continue ABX therapy w/ IV Zosyn (on day 5, total of 7 days required) and Caspofungin (on day 4, total of 5 days required). Probiotic added. Blood cultures obtained in ICU after ABX therapy - NGTD. Abdominal culture growing E. coli, which is pansensitive. General surgery following patient closely, PT/OT evals pending. On Protonix for GI prophylaxis. Follow AM labs. Glioblastoma S/P Craniotomy & Tumor Resection [11/10/2023] Patient was diagnosed with glioblastoma involving the left temporal occipital region and October 2023. According to [employer] Heme/Onc documentation on [facility], patient completed chemo/radiation in early January 2024. He is currently using an OptTiinkk TTFfield device and on Lomustine 40mg orally at home. He is on Keppra 500mg po BID for seizure prophylaxis. Patient was using MS Contin 60mg BID and MSIR 30mg q4h PRN at home for cancer- related pain per [facility] Palliative Medicine documentation on [facility]. HTN: Oral amlodipine initiated 05/10, home lisinopril continues to be held. Anxiety/Depression: Home bupropion resumed 05/10, continue. ALEKSANDR: Continue CPAP HS. DVT Prophylaxis: SQ Heparin Code Status: DNR/DNI - Patient would not want any heroic measures in the event of a cardiac arrest per previous provider documentation. PCP: Luz Maria Gama DO Disposition: Admitted in the ICU currently, however planning to downgrade patient to Med/Tele (order has been placed, waiting for bed to become available). Patient seen in collaboration with Dr. Tavera. Please see addendum. I spent a total of 65 minutes coordinating, documenting, and providing care for this patient excluding time spent in the performance of separately billed services. This included personally reviewing all current laboratories and imaging studies, medical reconciliation, outpatient chart review and discussion with specialists. This chart was completed in part utilizing Speech Voice Recognition Software. Grammatical errors, random word insertions, pronoun errors, and incomplete sentences are an occasional consequence of this system due to software limitations, ambient noise, and hardware issues. Any formal questions or concerns about the content, text, or information contained within the body of this dictation should be directly addressed to the provider for clarification. Supervising Physician Co-Signing Physician Notes 58-year-old male with PMH of glioblastoma s/p craniotomy plus resection, HLD, ALEKSANDR on CPAP, CAD status post stent placement, AZ [2015], HTN, ischemic cardio myopathy, bilateral Mnire's disease, erythrocytosis who was admitted 05/06 for pneumoperitoneum and underwent exploratory laparotomy on 05/06 and was found to have sigmoid perforation with purulent peritonitis and intra-abdominal abscess. During exploratory laparotomy, sigmoidectomy and appendectomy were also performed. Patient underwent reexploration laparotomy on 05/08 for abdominal washout and creation of end colostomy. Patient was extubated on 05/09. Patient reports feeling better, reports abdominal pain under control with pain medication, on 4 L nasal cannula oxygen, on clear liquid diet per surgery. Patient denies chest pain or cough. Labs reviewed, ICU and general surgery progress note reviewed. Patient was seen for consult for medical management. Continue with pain management, continue with current antimicrobial for abdominal infection. Follow cultures. Add probiotic. Labs in AM. Incentive spirometer. Patient is moving gas, has not moved bowel since surgery. On exam: GENERAL: Alert and oriented x3. NAD, on 4L NC O2 HEENT: No pallor, no icterus. Pupils equal, round and reactive to light. Oral mucosa moist. NECK: No JVD, no neck masses. HEART: S1 and S2 heard. Regular rate and rhythm. Tachy in 90s. No murmur, no gallop. RESPIRATORY SYSTEM: Normal AP diameter. No accessory muscle use. No wheezing, no crackles. ABDOMEN: Soft, bowel sounds hypoactive, central clean dressing wo soakage, stoma w/ clean bag w/o output. CENTRAL NERVOUS SYSTEM: No facial droop. Speech is clear. Obeys simple commands. Moves extremities. EXTREMITIES: No edema, no erythema seen. UC w/ bentley urine collection noted in the bag. I have seen and examined the patient and have discussed the case with the provider above. I agree with the assessment and plan as stated. Total time spent 30 minutes. History of Present Illness Reason for Consultation: Post-Operative Medical Management Requesting Physician: Carlos Marte DO Attending Physician: Carlos Marte DO History of Present Illness Remy Lujan is a 58y/o M with PMHx of dyslipidemia, ALEKSANDR on CPAP, CAD s/p stent placement, history of AZ [~2014], HTN, ischemic cardiomyopathy, bilateral Meniere disease, erythrocytosis, glioblastoma s/p craniotomy + resection and other problems listed below [facility] after undergoing exploratory laparotomy on 05/06 as a result of pneumoperitoneum and was found to have a sigmoid perforation with purulent peritonitis and intra-abdominal abscess. During that operation on 05/06, sigmoidectomy and appendectomy were also performed. Patient then underwent re-exploration laparotomy on 05/08 for abdominal wash-out and creation of end colostomy. Patient was extubated yesterday morning, he was initially intubated on 05/06 as a result of VDRF. Patient reports he has some abdominal pain today when prompted. Allergies Allergy/AdvReac Type Severity Reaction Status Date / Time ibuprofen Allergy Intermediate UNABLE TO Unverified 09/03/17 09:52 TAKE DUE TO HEART MEDICATION, PER Home Medications Medication Instructions Recorded Confirmed Type ASPIRIN (ASPIRIN CHEWABLE) 81 mg PO DAILY ##0 09/03/17 11/05/23 History Doxycycline (Monohydrate) 50 mg PO DAILY ##0 09/03/17 11/05/23 History (Doxycycline) Metoprolol Succinate (TOPROL XL) 25 mg PO DAILY ##0 09/03/17 11/05/23 History lisinopril 20 mg tablet 20 mg PO DAILY 11/05/23 11/05/23 History bupropion HCl 150 mg tablet,12 hr 150 mg PO BID 05/06/24 05/06/24 History sustained-release buspirone 10 mg tablet 10 mg PO TID 05/06/24 05/06/24 History morphine 60 mg tablet,extended 60 mg PO AMHS 05/06/24 05/06/24 History release nitrofurantoin 100 mg PO AMHS 05/06/24 05/06/24 History monohydrate/macrocrystals 100 mg capsule Patient History Medical History HLD (hyperlipidemia) Depression Anxiety Surgical History History of laparotomy (05/08/24) Re-Exploration Laparotomy, abdominal wash out, creation of end colostomy, explantation of abdominal wall mesh, abdominal wall closure(Not Applicable) - Carlos Marte, DO S/P laparoscopic-assisted sigmoidectomy (05/06/24) Exploratory Laparotomy, Sigmoidectomy, Appendectomy, Drainage of Intrabdominal abscess, placement of Abthera WoundVAC >50 cm2(Not Applicable) - Carlos Marte, DO Hx of craniotomy Hx of right coronary artery stent placement Family History Other Family history unknown Social History Smoking Status: Unknown if ever smoked Preferred Language: [place] Leonean Communication Ability: Unable Consumer Lending Manager Required: No Beliefs That Will Affect Care: None Current Living Situation: Spouse Feels Safe at Home: Yes Safety Concerns: Feels Safe At This Time Assistive Devices: None Review of Systems Review of Systems: Patient endorsing some pain, but otherwise offered no concerns. Hard to obtain full ROS given patient's mental status, POA not present at bedside. Physical Exam Physical Exam: General: Vitals as above, NAD, sitting up in bed, arousable with verbal cues, has expressive aphasia and word findings difficulty at baseline. HEENT: Normocephalic, atraumatic. PERRL, conjunctivae normal, anicteric sclerae. Hard of hearing, oropharynx appears minimally dry. Respiratory: Normal respiratory effort, decreased breath sounds throughout, no wheeze or rhonchi, minimal crackles in b/l lower lobes. Cardiovascular: Regular rate, rhythm, no murmur, normal peripheral pulses, no BLE edema. Vessels: No JVD. Abdomen/GI: Bowel sounds decreased throughout, soft, nontender, nondistended, colostomy in place without significant output. : Owens catheter in place and patent, draining clear yellow urine without issue. Extremities/Musculoskeletal: No cyanosis or clubbing, extremities motor strength not formally tested. Neurologic: Awake, alert and oriented to self, moving all extremities spontaneously. Lymphatic/Skin: No cervical or axillary lymphadenopathy. No rashes, normal color, warm/dry. Surgical bandaging intact on abdominal region. Results & Data Results & Data Vital Signs (Past 12 Hours) Vital Signs Temp Pulse Resp BP Pulse Ox O2 Del Method O2 Flow Rate 05/10/24 08:30 Nasal Cannula 4 05/10/24 08:00 95 H 17 167/92 H 95 05/10/24 08:00 83 05/10/24 07:00 88 16 156/86 H 96 05/10/24 06:03 85 18 96 05/10/24 06:00 141/78 H 05/10/24 06:00 141/78 H 05/10/24 06:00 84 18 141/78 H 96 4 05/10/24 05:09 86 18 97 05/10/24 04:30 37.5 C 05/10/24 04:00 144/87 H 05/10/24 04:00 71 21 144/87 H 96 4 05/10/24 02:00 87 20 145/91 H 95 05/10/24 01:00 86 18 139/90 96 Laboratory Results Short CBC 05/10/24 Range/Units 04:52 WBC 6.46 (4.8-10.8) K/ul Hgb 13.1 L (14.0-18.0) g/dl Hct 40.5 L (42.0-52.0) % Plt Count 202 (130-400) K/uL BMP 08/21/24 04:52 Sodium 141 Potassium 3.6 Chloride 105 Carbon Dioxide 29 BUN 17 Creatinine 0.85 Glucose 80 Calcium 8.4 L Diagnostic Findings Abdomen/Pelvis CT 05/06/24 15:29 CT SCAN OF THE ABDOMEN AND PELVIS WITH IV CONTRAST CLINICAL HISTORY: Lower abdominal pain. COMPARISON STUDY: No priors. TECHNIQUE: Following the IV administration of 120 cc of Optiray 320, CT scan of the abdomen and pelvis is performed from the lung bases to the proximal femora. Images are reviewed in the axial, sagittal, and coronal planes. IV contrast was administered without complication. A dose lowering technique was utilized adhering to the principles of ALARA. CT DOSE: 1676.25 mGy.cm FINDINGS: Lung bases: The heart is normal in size and without pericardial effusion. There is trace pneumomediastinum. The lung bases are clear negative dependent scarring/atelectasis. Liver: The contrast-enhanced liver is size and contour. Attenuation is diffusely diminished indicating steatosis. Fatty sparing is seen adjacent to the gallbladder fossa. There is no intrahepatic biliary ductal dilatation. The hepatic veins and portal veins are patent. Gallbladder: Unremarkable. Spleen: Normal in size and attenuation. Pancreas: Unremarkable. Adrenal glands: Unremarkable. Kidneys: The contrast enhanced kidneys are normal in size and without hydronephrosis. The kidneys enhance symmetrically. Abdominal vasculature: There is advanced atherosclerotic calcification and mild ectasia of the abdominal aorta. Bowel: There is moderate colonic fecal retention. No bowel obstruction is seen. There is moderate colonic diverticulosis without clear CT evidence of acute diverticulitis. There are thick-walled and inflamed loop of small bowel in the central lower abdomen with surrounding fluid seen on axial image #293. The appendix is well-visualized and normal. Peritoneum: There is a large volume of intraperitoneal free air. Interloop fluid is seen in the lower abdomen and there is trace free fluid in the pelvis. No organized fluid collection is seen to suggest abscess. There is evidence of prior ventral hernia repair. Lymphadenopathy: None. Pelvic viscera: The bladder, prostate, and seminal vesicles are normal as visualized. Skeletal structures: There is moderate lumbosacral spondylosis. Mild sclerotic changes seen in the sacroiliac joints. No lytic or blastic lesions are seen. IMPRESSION: 1. There is a large volume of intraperitoneal free air indicative of visceral perforation. Surgical evaluation is advised. 2. The site of perforation is not clearly delineated. 3. There are inflamed loops of small bowel in the central lower abdomen with surrounding fluid, as well as significant diverticular disease of the left colon. Although not definitive, one of these sites is favored as the site of perforation. 4. No bowel obstruction is seen. 5. No organized fluid collection is identified to suggest abscess. 6. Hepatic steatosis. 7. There is trace pneumomediastinum, likely related to intraperitoneal free air. 8. Additional findings as above. ACT 112: Negative or not required by law. Electronically signed by: Goyo Yun M.D. 05/06/2024 4:44 PM Chest X-Ray 05/06/24 20:25 XR chest 1V portable HISTORY: eval ETT and OGT placement post OR COMPARISON: Abdomen and pelvis CT 05/06/2024. FINDINGS: Endotracheal tube terminates 7.3 cm from the courtney. Nasogastric tube terminates below the diaphragm. There are low lung volumes. The heart is mildly enlarged. Bibasilar linear densities favor subsegmental atelectasis. No pneumothorax. Pneumoperitoneum and pneumomediastinum again noted. IMPRESSION: Endotracheal tube terminates 7.3 cm from the courtney. This should be advanced by approximately 2-3 cm. Pneumomediastinum and pneumoperitoneum again noted. ACT 112: Negative or not required by law. Electronically signed by: Bobby Penn M.D. 05/07/2024 8:01 AM Chest X-Ray 05/07/24 06:00 XR chest 1V portable HISTORY: eval lines and tubes and lung parks while intubat COMPARISON: Chest 05/06/2024. FINDINGS: The endotracheal tube terminates 7.6 cm from the courtney. Nasogastric tube terminates below the diaphragm. No pneumothorax. Right paratracheal thickening remains unchanged. The pneumomediastinum and pneumoperitoneum is again noted. Left basilar linear densities persist and favor subsegmental atelectasis. IMPRESSION: 1. Endotracheal tube terminates 7.6 cm from the courtney. This should be advanced by 2 to 3 cm. 2. The pneumomediastinum and pneumoperitoneum are again noted. ACT 112: Negative or not required by law. Electronically signed by: Bobby Penn M.D. 05/07/2024 8:01 AM Chest X-Ray 05/08/24 06:00 XR chest 1V portable CLINICAL HISTORY: eval lines and tubes and lung parks while intubat TECHNIQUE: Single frontal radiograph of the chest was obtained. Comparison: Comparison is made to chest radiograph 06/07/2024 FINDINGS: Lines and tubes are stable. Cardiomegaly is noted. There is suggestion of previously noted pneumomediastinum and pneumoperitoneum. Lungs are underinflated but clear. No evidence of pleural effusion or pneumothorax. IMPRESSION: Stable exam. Pneumomediastinum and pneumoperitoneum are partially visualized. Stable lines and tubes. ACT 112: Negative or not required by law. Electronically signed by: Alonso Guevara M.D. 05/08/2024 7:00 AM Chest X-Ray 05/09/24 06:00 SINGLE VIEW CHEST CLINICAL HISTORY: Respiratory failure FINDINGS: 2 AP, portable, semierect chest radiographs are compared to study dated 05/08/2024. Endotracheal and enteric tubes are unchanged in position. The heart is enlarged. The pulmonary vasculature is not congested. Chronic interstitial thickening is similar to previous. There is bibasilar scarring/atelectasis. No airspace consolidation or large pleural effusion is identified. No pneumothorax is seen. The bony thorax is grossly intact. IMPRESSION: 1. Stable lines and tubes. 2. Cardiomegaly without radiographic evidence of congestive failure. ACT 112: Negative or not required by law. Electronically signed by: Goyo Yun M.D. 05/09/2024 11:53 AM
--- NOTE | 2024-05-10 14:05 | Palliative Care Progress Note ---
Date of Service May 10, 2024 Assessment & Plan (1) Cancer related pain: Plan: MS scheduled dose increased to MS 3mg IV q4h and continues to have option of MS 2mg IV q2h prn BTP/Hold for somnolence or RR less than 14; please document RR with each dose administration. Will see if this increase helps improve pain. Senna elixir daily dose added for bowel regimen Tentative plan to speak with Candi and pt together tomorrow per Candi's preference (2) Abdominal pain: (3) Palliative care by specialist: (4) Glioblastoma: Plan As above D/w nursing. Thank you for allowing us to participate in the ongoing care of this patient. Please page with any additional concerns. Selma Gonzalez DNP Director, Palliative Medicine Admission and Anticipated Discharge Date Admission Date: May 06, 2024 Subjective Wesley is seen bedside, no family present he is more awake and alert, answers after a pause and seems to choose words carefully he reports pain "is really bad" denies chest pain, dyspnea, nausea tolerating clear liquids, feels swallow is fine, no pain or weakness with swallow reflex Review of Systems Review of Systems: All systems reviewed & are unremarkable except as noted in Subjective Physical Exam Constitutional: + ill appearing (chronically ill, frail, weak) and + obese Eyes: PERRL ENMT: MM sl dry Neck: short neck, no stridor Respiratory: resp effort WNL at rest no conversational dyspnea Lungs diminished/? due to habitus no overt wheezing Cardiovascular: s1s2 Gastrointestinal (Abdomen): mid line incision/dressing intact Ostomy left, +bowel sweat, no other output diffusely tender to palpation BS diminished Musculoskeletal: gen weakness on bedrest Skin: pale mottling across abdomen, BUE, cool to touch warmer BLE mild edema BLE and BUE Neurologic: AAOx3 today Slow speech pattern Results & Data Vital Signs (Past 12 Hours) Vital Signs Temp Pulse Resp BP Pulse Ox O2 Del Method O2 Flow Rate 05/10/24 08:30 Nasal Cannula 4 05/10/24 08:00 95 H 17 167/92 H 95 05/10/24 08:00 83 05/10/24 07:00 88 16 156/86 H 96 05/10/24 06:03 85 18 96 05/10/24 06:00 141/78 H 05/10/24 06:00 141/78 H 05/10/24 06:00 84 18 141/78 H 96 4 05/10/24 05:09 86 18 97 05/10/24 04:30 37.5 C 05/10/24 04:00 144/87 H 05/10/24 04:00 71 21 144/87 H 96 4 05/10/24 02:00 87 20 145/91 H 95 Laboratory Results Abnormal lab results 05/10/24 Range/Units 04:52 RBC 4.23 L (4.70-6.10) M/uL Hgb 13.1 L (14.0-18.0) g/dl Hct 40.5 L (42.0-52.0) % RDW Std Deviation 49.3 H (36.4-46.3) fL MPV 9.1 L (9.4-12.4) fL Lymphocytes # (Manual) 0.97 L (1.2-3.4) K/uL Total Abs Lymphocytes 0.97 L (1.2-3.4) K/uL Metamyelocytes # (Man) 0.19 H (0-0) K/uL Myelocytes # (Manual) 0.13 H (0-0) K/uL Calcium 8.4 L (8.6-10.3) mg/dl Diagnostic Findings Abdomen/Pelvis CT 05/06/24 15:29 CT SCAN OF THE ABDOMEN AND PELVIS WITH IV CONTRAST CLINICAL HISTORY: Lower abdominal pain. COMPARISON STUDY: No priors. TECHNIQUE: Following the IV administration of 120 cc of Optiray 320, CT scan of the abdomen and pelvis is performed from the lung bases to the proximal femora. Images are reviewed in the axial, sagittal, and coronal planes. IV contrast was administered without complication. A dose lowering technique was utilized adhering to the principles of ALARA. CT DOSE: 1676.25 mGy.cm FINDINGS: Lung bases: The heart is normal in size and without pericardial effusion. There is trace pneumomediastinum. The lung bases are clear negative dependent scarring/atelectasis. Liver: The contrast-enhanced liver is size and contour. Attenuation is diffusely diminished indicating steatosis. Fatty sparing is seen adjacent to the gallbladder fossa. There is no intrahepatic biliary ductal dilatation. The hepatic veins and portal veins are patent. Gallbladder: Unremarkable. Spleen: Normal in size and attenuation. Pancreas: Unremarkable. Adrenal glands: Unremarkable. Kidneys: The contrast enhanced kidneys are normal in size and without hydronephrosis. The kidneys enhance symmetrically. Abdominal vasculature: There is advanced atherosclerotic calcification and mild ectasia of the abdominal aorta. Bowel: There is moderate colonic fecal retention. No bowel obstruction is seen. There is moderate colonic diverticulosis without clear CT evidence of acute diverticulitis. There are thick-walled and inflamed loop of small bowel in the central lower abdomen with surrounding fluid seen on axial image #293. The appendix is well-visualized and normal. Peritoneum: There is a large volume of intraperitoneal free air. Interloop fluid is seen in the lower abdomen and there is trace free fluid in the pelvis. No organized fluid collection is seen to suggest abscess. There is evidence of prior ventral hernia repair. Lymphadenopathy: None. Pelvic viscera: The bladder, prostate, and seminal vesicles are normal as visualized. Skeletal structures: There is moderate lumbosacral spondylosis. Mild sclerotic changes seen in the sacroiliac joints. No lytic or blastic lesions are seen. IMPRESSION: 1. There is a large volume of intraperitoneal free air indicative of visceral perforation. Surgical evaluation is advised. 2. The site of perforation is not clearly delineated. 3. There are inflamed loops of small bowel in the central lower abdomen with surrounding fluid, as well as significant diverticular disease of the left colon. Although not definitive, one of these sites is favored as the site of perforation. 4. No bowel obstruction is seen. 5. No organized fluid collection is identified to suggest abscess. 6. Hepatic steatosis. 7. There is trace pneumomediastinum, likely related to intraperitoneal free air. 8. Additional findings as above. ACT 112: Negative or not required by law. Electronically signed by: Goyo Yun M.D. 05/06/2024 4:44 PM Chest X-Ray 05/09/24 06:00 SINGLE VIEW CHEST CLINICAL HISTORY: Respiratory failure FINDINGS: 2 AP, portable, semierect chest radiographs are compared to study dated 05/08/2024. Endotracheal and enteric tubes are unchanged in position. The heart is enlarged. The pulmonary vasculature is not congested. Chronic interstitial thickening is similar to previous. There is bibasilar scarring/atelectasis. No airspace consolidation or large pleural effusion is identified. No pneumothorax is seen. The bony thorax is grossly intact. IMPRESSION: 1. Stable lines and tubes. 2. Cardiomegaly without radiographic evidence of congestive failure. ACT 112: Negative or not required by law. Electronically signed by: Goyo Yun M.D. 05/09/2024 11:53 AM PG Care Time/CCT Total # of Minutes Spent Total Time Spent with Patient: Total time spent is greater than 50% in coordination of care (as documented) at patient's floor/unit and/or counseling patient: I spent 60 minutes overall addressing this case: 10 min in medical data review/discussion with referring provider(s) and/or preparation for the visit 20 min in direct interaction with the patient/exam 000 min in Advance Care Planning/Goals of Care discussions as detailed above in note (must be >16min) 15 min in subsequent review and synthesis of assessment and plan 15 min communicating with other providers regarding the patient's case: [place] [address] SUB INP/OBS CARE 3/50MIN Patient Type Established History Comprehensive Exam Comprehensive Medical Decision Making High Complexity Diagnoses Cancer related pain G89.3 Abdominal pain R10.9 Palliative care by specialist Z51.5 Glioblastoma C71.9
[2024-05-10] MEDS: buPROPion SR 150 MG TABCR PO SCH (21:18)
[2024-05-10] MEDS: levETIRAcetam 500 MG TAB PO SCH (21:19)
[2024-05-11 06:45] LABS: Hematocrit (blood only) 36.5 % (42.0-52.0); Hemoglobin 11.8 g/dl (14.0-18.0); Mean Corpuscular Hgb Conc 32.3 g/dL (32.0-36.0); Mean Corpuscular Volume 95.8 fL (80.0-100.0); Mean Platelet Volume 9.3 fL (9.4-12.4); Platelet Count 197 K/uL (130-400); RDW Coefficient of Variation 14.5 % (11.5-14.5); RDW Standard Deviation 50.5 fL (36.4-46.3); Red Blood Count 3.81 M/uL (4.70-6.10)
[2024-05-11 07:06] LABS: BUN Creatinine Ratio 23.9 (10-20); Creatinine Clr Calc Pharmacy 167.5 ml/min; Est GFR (African American) 119.9 ml/min; Est GFR (Non-African American) 103.4 ml/min; Magnesium 2.1 mg/dl (1.7-2.4); Potassium 3.5 mmol/L (3.5-5.1)
[2024-05-11 07:52] LABS: ALC (manual) 0.56 K/uL (1.2-3.4); ANC (manual) 4.54 K/uL (1.4-6.5); Eosinophils # (manual) 0.11 K/uL (0-0.50); Eosinophils % (manual) 2 %; Lymphocytes # (manual) 0.56 K/uL (1.2-3.4); Lymphocytes % (manual) 10 %; Metamyelocytes # (manual) 0.11 K/uL (0-0); Metamyelocytes % (manual) 2 %; Monocytes # (manual) 0.17 K/uL (0.11-0.59); Monocytes % (manual) 3 %; Myelocytes # (manual) 0.11 K/uL (0-0); Myelocytes % (manual) 2 %; Neutrophils # (manual) 4.54 K/uL (1.40-6.50); Neutrophils % (manual) 81 %
--- NOTE | 2024-05-11 08:07 | Surgery Progress Note ---
Date of Service May 11, 2024 Assessment & Plan (1) S/P exploratory laparotomy: Plan: s/p exlap sigmoidectomy/appendectomy and take-back for washout and colostomy formation WBC 5.6, K 3.5. Vitals stable, temps 98-99F, no true fevers Pt resting in bed, but easily arousable. Complains of less abdominal pain today. Denies nausea/vomiting Ostomy viable, no gas/stool in bag at present Would continue on clears until more meaningful output from ostomy Palliative on board assisting with pain control. Appreciate hospitalists assistance with pt as well Order PT/OT, encourage OOB and pulm toilet Continue IV abx/antifungal as above. looks better than yesterday. minimal discomfort. no n/v. no bowel fx yet. stay on clears until better bowel fx Admission and Anticipated Discharge Date Admission Date: May 06, 2024 Subjective Patient resting, but awakens easily. Reports pain is controlled. Tolerating liquids, no nausea/vomiting. No complaints. Physical Exam Physical Exam: resting, but easily arousable and communicative Respiratory: normal respiratory effort Gastrointestinal (Abdomen): Inspection/Auscultation: + abdomen distended and + abdominal surgical incision (c/d/i with midline joyce and aldo drain) Percussion/Palpation: abdomen soft + ostomy, dark red, no gas/stool in bag at present Results & Data Vital Signs (Past 12 Hours) Vital Signs Temp Pulse Pulse Resp BP BP Pulse Ox 05/11/24 07:53 98.6 F 80 16 153/88 H 94 05/11/24 03:23 99.0 F 83 20 155/92 H 94 05/11/24 01:07 99.0 F 80 20 153/93 H 94 05/10/24 22:05 87 05/10/24 21:45 O2 Del Method 05/11/24 07:53 Room Air 05/11/24 03:23 05/11/24 01:07 05/10/24 22:05 05/10/24 21:45 Room Air PG Care Time/CCT Total # of Minutes Spent Total Time Spent with Patient: Total time spent is greater than 50% in coordination of care (as documented) at patient's floor/unit and/or counseling patient: Coding Level of Care Code 11765 Post Operative Follow-Up Diagnoses S/P exploratory laparotomy Z98.890
[2024-05-11] MEDS: POTASSIUM CHLORIDE / WTR 10 MEQ/100 ML PLCT IV SCH ×2 (09:30→13:35)
[2024-05-11] MEDS: SENNOSIDES 8.8 MG/5 ML UDC PO SCH (09:31)
[2024-05-11] MEDS: ADVANCED PROBIOTIC 625 MG CAPSULE PO SCH (09:31)
[2024-05-11] MEDS: PANTOprazole 40 MG TAB PO SCH (09:31)
[2024-05-11] MEDS: amLODIPine BESYLATE 5 MG TAB PO SCH (09:31)
--- NOTE | 2024-05-11 11:58 | Hospitalist Progress Note ---
Date of Service May 11, 2024 Assessment & Plan (1) S/P exploratory laparotomy: Plan Remy Lujan is a 58y/o M with PMHx of dyslipidemia, ALEKSANDR on CPAP, CAD s/p stent placement, history of PA [~2014], HTN, ischemic cardiomyopathy, bilateral Meniere disease, erythrocytosis, glioblastoma s/p craniotomy + resection admitted with pneumoperitoneum in the setting of sigmoid colon perforation. Hospitalist team consulted for post-operative medical management. Pneumoperitoneum Sigmoid Colon Perforation Ventilator Dependent respiratory failure s/p Exploratory Laparotomy x 2. On 05/06 and 05/08 -on 05/06 as a result of pneumoperitoneum -found to have a sigmoid perforation with purulent peritonitis and intra- abdominal abscess. Sigmoidectomy and appendectomy also performed. -transferred to ICU with open abdomen, intubated. -Patient then underwent re-exploration laparotomy on 05/08 for abdominal wash- out, removal of mesh, creation of end colostomy, and abdominal closure. Patient was extubated on 05/09, has been successfully off of mechanical vent ilation for over 24 hours. Currently on RA Abdomen Cx obtained from surgery grew pansensitive E coli, bacteroides and strep anginosus Blood Cx NGTD Continue IV Zosyn and IV Caspofungin ID consulted for further recs to guide treatment and for recs for discharge Further care per primary General Surgery team PT/OT Glioblastoma S/P Craniotomy & Tumor Resection [11/10/2023] Patient was diagnosed with glioblastoma involving the left temporal occipital region and October 2023. Per chart review, completed chemo/radiation in early January 2024. Using an [employer] device and on Lomustine 40mg orally at home. On Keppra 500mg po BID for seizure prophylaxis. Home pain regimen of MS Contin 60mg BID and MSIR 30mg q4h PRN Palliative Care was consulted for further inpatient pain med recs, appreciate recs HTN CAD s/p stent placement Hx of PA On lisinopril 20mg, Toprol XL 25mg daily at home Not currently on statin due to intolerance, was exploring repatha per chart review Oral amlodipine initiated 05/10 while in ICU, home lisinopril on hold at that time as well as toprol due to bradycardia during early admission Bradycardia currently resolved, resume home toprol at 12.5mg daily in setting of CAD and Hx of PA Consider resuming BUSTER (lisinopril) at lower dose Hx of statin intolerance Continue to monitor Will need to re-establish/follow up with cardiology after discharge, last visit March 2023 Anxiety/Depression Home bupropion resumed 05/10, continue Home buspar on hold ALEKSANDR Continue CPAP HS. Diet: being advanced by primary team DVT Prophylaxis: SQ Heparin Code Status: DNR/DNI - Patient would not want any heroic measures in the event of a cardiac arrest per previous provider documentation. PCP: Luz Maria Gama, Thank you for this consultation. We will follow the patient with you during their hospital stay. You can reach a member of the [facility] Hospitalist Team 12/04 via the hospitalist role on tiger text. Admission and Anticipated Discharge Date Admission Date: May 06, 2024 Subjective pt was seen while laying in bed, resting comfortably. Denied acute concerns. No BM yet. Review of Systems Review of Systems: All systems reviewed & are unremarkable except as noted in Subjective Physical Exam Physical Exam: General: Alert, orientedx1. Psych: Appropriate mood and affect Neuro: difficulty with movements in the bed HEENT: NC/AT CV: RRR Resp: no increased effort of breathing Abdomen: Distended, tender, colostomy bag in place, bandages with some noted discharge Extremities: waffle boots on lower extremities bilaterally. Results & Data Results & Data Vital Signs (Past 12 Hours) Vital Signs Temp Pulse Pulse Resp BP BP Pulse Ox 05/11/24 11:08 37.0 C 87 18 156/95 H 95 05/11/24 08:00 76 05/11/24 07:53 37.0 C 80 16 153/88 H 94 05/11/24 03:23 37.2 C 83 20 155/92 H 94 05/11/24 01:07 37.2 C 80 20 153/93 H 94 O2 Del Method 05/11/24 11:08 Room Air 05/11/24 08:00 05/11/24 07:53 Room Air 05/11/24 03:23 05/11/24 01:07 Diagnostic Findings Abdomen/Pelvis CT 05/06/24 15:29 CT SCAN OF THE ABDOMEN AND PELVIS WITH IV CONTRAST CLINICAL HISTORY: Lower abdominal pain. COMPARISON STUDY: No priors. TECHNIQUE: Following the IV administration of 120 cc of Optiray 320, CT scan of the abdomen and pelvis is performed from the lung bases to the proximal femora. Images are reviewed in the axial, sagittal, and coronal planes. IV contrast was administered without complication. A dose lowering technique was utilized adhering to the principles of ALARA. CT DOSE: 1676.25 mGy.cm FINDINGS: Lung bases: The heart is normal in size and without pericardial effusion. There is trace pneumomediastinum. The lung bases are clear negative dependent scarring/atelectasis. Liver: The contrast-enhanced liver is size and contour. Attenuation is diffusely diminished indicating steatosis. Fatty sparing is seen adjacent to the gallbladder fossa. There is no intrahepatic biliary ductal dilatation. The hepatic veins and portal veins are patent. Gallbladder: Unremarkable. Spleen: Normal in size and attenuation. Pancreas: Unremarkable. Adrenal glands: Unremarkable. Kidneys: The contrast enhanced kidneys are normal in size and without hydronephrosis. The kidneys enhance symmetrically. Abdominal vasculature: There is advanced atherosclerotic calcification and mild ectasia of the abdominal aorta. Bowel: There is moderate colonic fecal retention. No bowel obstruction is seen. There is moderate colonic diverticulosis without clear CT evidence of acute diverticulitis. There are thick-walled and inflamed loop of small bowel in the central lower abdomen with surrounding fluid seen on axial image #293. The appendix is well-visualized and normal. Peritoneum: There is a large volume of intraperitoneal free air. Interloop fluid is seen in the lower abdomen and there is trace free fluid in the pelvis. No organized fluid collection is seen to suggest abscess. There is evidence of prior ventral hernia repair. Lymphadenopathy: None. Pelvic viscera: The bladder, prostate, and seminal vesicles are normal as visualized. Skeletal structures: There is moderate lumbosacral spondylosis. Mild sclerotic changes seen in the sacroiliac joints. No lytic or blastic lesions are seen. IMPRESSION: 1. There is a large volume of intraperitoneal free air indicative of visceral perforation. Surgical evaluation is advised. 2. The site of perforation is not clearly delineated. 3. There are inflamed loops of small bowel in the central lower abdomen with surrounding fluid, as well as significant diverticular disease of the left colon. Although not definitive, one of these sites is favored as the site of perforation. 4. No bowel obstruction is seen. 5. No organized fluid collection is identified to suggest abscess. 6. Hepatic steatosis. 7. There is trace pneumomediastinum, likely related to intraperitoneal free air. 8. Additional findings as above. ACT 112: Negative or not required by law. Electronically signed by: Goyo Yun M.D. 05/06/2024 4:44 PM Chest X-Ray 05/06/24 20:25 XR chest 1V portable HISTORY: eval ETT and OGT placement post OR COMPARISON: Abdomen and pelvis CT 05/06/2024. FINDINGS: Endotracheal tube terminates 7.3 cm from the courtney. Nasogastric tube terminates below the diaphragm. There are low lung volumes. The heart is mildly enlarged. Bibasilar linear densities favor subsegmental atelectasis. No pneumothorax. Pneumoperitoneum and pneumomediastinum again noted. IMPRESSION: Endotracheal tube terminates 7.3 cm from the courtney. This should be advanced by approximately 2-3 cm. Pneumomediastinum and pneumoperitoneum again noted. ACT 112: Negative or not required by law. Electronically signed by: Bobby Penn M.D. 05/07/2024 8:01 AM Chest X-Ray 05/07/24 06:00 XR chest 1V portable HISTORY: eval lines and tubes and lung parks while intubat COMPARISON: Chest 05/06/2024. FINDINGS: The endotracheal tube terminates 7.6 cm from the courtney. Nasogastric tube terminates below the diaphragm. No pneumothorax. Right paratracheal thickening remains unchanged. The pneumomediastinum and pneumoperitoneum is again noted. Left basilar linear densities persist and favor subsegmental atelectasis. IMPRESSION: 1. Endotracheal tube terminates 7.6 cm from the courtney. This should be advanced by 2 to 3 cm. 2. The pneumomediastinum and pneumoperitoneum are again noted. ACT 112: Negative or not required by law. Electronically signed by: Bobby Penn M.D. 05/07/2024 8:01 AM Chest X-Ray 05/08/24 06:00 XR chest 1V portable CLINICAL HISTORY: eval lines and tubes and lung parks while intubat TECHNIQUE: Single frontal radiograph of the chest was obtained. Comparison: Comparison is made to chest radiograph 06/07/2024 FINDINGS: Lines and tubes are stable. Cardiomegaly is noted. There is suggestion of previously noted pneumomediastinum and pneumoperitoneum. Lungs are underinflated but clear. No evidence of pleural effusion or pneumothorax. IMPRESSION: Stable exam. Pneumomediastinum and pneumoperitoneum are partially visualized. Stable lines and tubes. ACT 112: Negative or not required by law. Electronically signed by: Alonso Guevara M.D. 05/08/2024 7:00 AM Chest X-Ray 05/09/24 06:00 SINGLE VIEW CHEST CLINICAL HISTORY: Respiratory failure FINDINGS: 2 AP, portable, semierect chest radiographs are compared to study dated 05/08/2024. Endotracheal and enteric tubes are unchanged in position. The heart is enlarged. The pulmonary vasculature is not congested. Chronic interstitial thickening is similar to previous. There is bibasilar scarring/atelectasis. No airspace consolidation or large pleural effusion is identified. No pneumothorax is seen. The bony thorax is grossly intact. IMPRESSION: 1. Stable lines and tubes. 2. Cardiomegaly without radiographic evidence of congestive failure. ACT 112: Negative or not required by law. Electronically signed by: Goyo Yun M.D. 05/09/2024 11:53 AM
[2024-05-12] MEDS ORDERED: PROMETHAZINE 12.5 MG/50.5 ML BAG IV PRN (04:38)
[2024-05-12] MEDS: PROMETHAZINE 12.5 MG/50.5 ML BAG IV STA (04:52)
[2024-05-12] MEDS: METOPROLOL SUCC 25MG EXT REL TAB PO SCH (07:49)
--- NOTE | 2024-05-12 08:37 | Surgery Progress Note ---
Date of Service May 12, 2024 Assessment & Plan (1) S/P exploratory laparotomy: Plan: s/p exlap sigmoidectomy/appendectomy and take-back for washout and colostomy formation Labs pending , vitals stable Vomiting overnight. Says pain and nausea better when asked, but upon palpation of his abdomen he began to feel nauseated and threw up multiple times a bilious emesis while i was in the room PRN anti-emetics ordered Will obtain KUB for further evaluation, if ongoing n/v will place NGT Backed down to NPO. Awaiting output from colostomy Palliative on board assisting with pain control. Appreciate hospitalists assistance with pt as well Order PT/OT, encourage OOB and pulm toilet Continue IV abx Dr meyer covering the wknd as above. will insert NGT. awaiting bowel function. Admission and Anticipated Discharge Date Admission Date: May 06, 2024 Subjective Patient threw up overnight. denies nausea, but when i pressed on abdomen he threw up. Physical Exam Physical Exam: eyes closed, but awakens to communication and answers questions Respiratory: normal respiratory effort Gastrointestinal (Abdomen): Inspection/Auscultation: + abdomen distended Percussion/Palpation: + abdomen tender (mild generalized discomfort to palpation) and abdomen soft ostomy dark red, no output Results & Data Vital Signs (Past 12 Hours) Vital Signs Temp Pulse Pulse Pulse Resp BP Pulse Ox 05/12/24 08:01 99.1 F 81 18 177/113 H 95 05/12/24 02:35 98.4 F 79 18 152/96 H 96 05/12/24 00:00 85 05/11/24 23:13 05/11/24 22:54 98.2 F 75 16 158/92 H 96 O2 Del Method 05/12/24 08:01 Room Air 05/12/24 02:35 Room Air 05/12/24 00:00 05/11/24 23:13 Room Air 05/11/24 22:54 Room Air PG Care Time/CCT Total # of Minutes Spent Total Time Spent with Patient: Total time spent is greater than 50% in coordination of care (as documented) at patient's floor/unit and/or counseling patient: Coding Level of Care Code 26420 Post Operative Follow-Up Diagnoses S/P exploratory laparotomy Z98.890
[2024-05-12 08:39] LABS: Hematocrit (blood only) 35.6 % (42.0-52.0); Hemoglobin 11.7 g/dl (14.0-18.0); Mean Corpuscular Hemoglobin 30.6 pg (25.0-34.0); Mean Corpuscular Hgb Conc 32.9 g/dL (32.0-36.0); Mean Corpuscular Volume 93.2 fL (80.0-100.0); Mean Platelet Volume 9.6 fL (9.4-12.4); Platelet Count 226 K/uL (130-400); RDW Coefficient of Variation 14.3 % (11.5-14.5); RDW Standard Deviation 48.9 fL (36.4-46.3); Red Blood Count 3.82 M/uL (4.70-6.10)
[2024-05-12 09:10] LABS: Basophils # (auto) 0.03 K/uL (0.00-0.20); Basophils % (auto) 0.5 %; Eosinophils # (auto) 0.03 K/uL (0.00-0.50); Eosinophils % (auto) 0.5 %; Immature Granulocytes # (auto) 0.51 K/uL (0.01-0.20); Immature Granulocytes % (auto) 8.2 %; Lymphocytes # (auto) 0.78 K/uL (1.20-3.40); Lymphocytes % (auto) 12.6 %; Monocytes # (auto) 0.28 K/uL (0.11-0.59); Monocytes % (auto) 4.5 %; Neutrophils # (auto) 4.57 K/uL (1.40-6.50); Neutrophils % (auto) 73.7 %
[2024-05-12 09:24] LABS: Albumin Globulin Ratio 0.9 (0.9-2); Albumin Level 2.7 gm/dl (3.4-5.0); BUN Creatinine Ratio 24.6 (10-20); Bilirubin,Total 0.6 mg/dl (0.2-1.0); Calcium 8.1 mg/dl (8.6-10.3); Creatinine Clr Calc Pharmacy 186.4 ml/min; Est GFR (African American) 124.3 ml/min; Est GFR (Non-African American) 107.2 ml/min; Magnesium 2.1 mg/dl (1.7-2.4); Phosphorus 1.9 mg/dl (2.5-4.9); Potassium 3.4 mmol/L (3.5-5.1); Total Protein 5.7 gm/dl (6.0-8.3)
--- NOTE | 2024-05-12 10:54 | XRay Report ---
KUB HISTORY: eval, s/p sigmoidectomy, n/v COMPARISON: Abdomen and pelvis CT 05/06/2024. FINDINGS: Interval midline skin joyce are noted. Moderate gaseous distention of the stomach. The le ft lower quadrant ostomy site is noted. Multiple dilated gas-filled loops of small bowel are seen wit hin the abdomen which measure up to 5 cm in diameter. Moderate fecal retention is noted within the co guevara. No renal calculi. No ureteral calculi. No pneumoperitoneum or pneumatosis. IMPRESSION: 1. Moderate gaseous distention of the stomach. Multiple dilated gas-filled loops of small bowel. This is nonspecific but could represent a postoperative ileus. A small bowel obstruction also remains in the differential diagnosis. Follow-up recommended. 2. Moderate fecal retention. 3. Left lower quadrant colostomy is noted ACT 112: Negative or not required by law. Electronically signed by: Bobby Penn M.D. 05/12/2024 10:53 AM
[2024-05-12] MEDS ORDERED: POTASSIUM PHOS 3 MMOL/1 ML INFUSION IV STA (11:25)
--- NOTE | 2024-05-12 12:50 | Communication Note ---
Date of Service: May 12, 2024 Palliative Medicine Brief Note Goals of care discussion was held with patient significant other, Candi. She expressed some concerns and worries about what to do to provide support for patient through the next few days as his condition has declined today. He is more lethargic, less interactive, having issues with nausea and vomiting. She met with surgery earlier today and understands the plan for further imaging and likely NG tube placement. She asks what the potential landscape may look like in the days ahead. We discussed the best and worst case scenarios and what might be "most likely scenario." I advised Candi that in the setting of his postsurgical acute state, this is an unsurprising postop complication. We will see how he responds to the interventions to treat this postop complication and revisit discussions regarding the goals of care from there. We agreed that should he have any further or acute decline in spite of the escalated interventions, then a more urgent discussion regarding goals of care will be warranted over the weekend. Extensive psychosocial support and reassurance provided. I have provided Candi with my contact information for after hours/on-call should she need urgent assistance this weekend, additionally am also available by Rudi hunter. TS 15min NO charge submitted. Thank you for allowing us to participate in the ongoing care of this patient. Please page with any additional concerns. Selma Gonzalez DNP Director, Palliative Medicine
--- NOTE | 2024-05-12 13:12 | XRay Report ---
XR KUB/Abdomen 1 view CLINICAL HISTORY: NEW NG TUBE PLACEMENT TECHNIQUE: 1 view of the abdomen was obtained. Comparison: Comparison is made to abdomen radiograph 05/12/2024 FINDINGS: Enteric tube terminates in the stomach. The osseous structures are grossly unremarkable. The stomach is seen. Please see abdomen radiograph performed same day for findings of small bowel dilation. IMPRESSION: 1. Satisfactory position of enteric tube. 2. Please see abdomen radiograph performed same day for findings of ileus/obstruction. ACT 112: Negative or not required by law. Electronically signed by: Alonso Guevara M.D. 05/12/2024 1:11 PM
[2024-05-12] MEDS: POTASSIUM CHLORIDE / WTR 10 MEQ/100 ML PLCT IV ONE (13:54)
--- NOTE | 2024-05-12 14:41 | Infectious Disease Consult ---
Date of Service May 12, 2024 Telehealth Information I performed this visit using a real-time telehealth connection between my location and the patients location ([facility]). After connecting through interactive tele-video, patient was identified by name and date of and/or wristband check.Patient (or authorized healthcare bilingual inside sales representative) was informed that this was a telemedicine visit and it was being conducted confidentially over secure lines. My office door was closed and no o ne else was present in the room with me.Patient (or authorized healthcare bilingual inside sales representative) provided consent to proceed with the visit, expressed an understanding of privacy and security of the telemedicine visit, and gave permission to have a hospital bilingual inside sales representative in the room in order to assist with the visit and to conduct portions of the visit, as needed. I informed the patient (or authorized healthcare bilingual inside sales representative) that I reviewed their record and presented the opportunity for them to ask any questions regarding the visit today. The patient agreed to participate. Assessment & Plan (1) Bowel perforation: Plan: Likely from perforated sigmoid, now S/P resection with ostomy formation and washout x 2. No fevers or increasing WBC to suggest worsening intraabdominal infection, though residual abscess and incomplete resolution of infection always a concern. New N/V may suggest some concerns needing close follow-up. 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 Plan OK to stop the caspofungin, but I would continue the pip-tazo for now. If he were on a positive clinical trajectory he shouldn't need pip-tazo beyond 05/12 or 05/13 (4 days beyond achieving source control in the OR). With his current decline as of today, repeating imaging of his abdomen (and head) may be warranted to look for a cause. He is at risk for post-op abscess or breakdown with his use of dexamethasone. If he does improve in the next 1-2 days and no concerns about residual infection, then the abx should not be continued beyond 7 days post-op at the most. If he continues to decline and repeat imaging is obtained (in alignment with goals of care), then abx duration may need to be extended. ID will continue to follow along from afar. History of Present Illness History of Present Illness Mr. Lujan is a 58yo male with a h/o glioblastoma. He had prior resection but has residual tumor and has been on palliative chemotherapy, though none for the past 6 weeks. He is on intermittent dexamethasone however and he presented to [facility] with a week long history of abdominal pain. Imaging in the ED showed intraperitoneal free air and he was taken to the OR on 05/06. He underwent ex-lap with resection of perforated sigmoid colon, appendectomy and drainage of a large intraabdominal abscess. He was placed on pip-tazo and eventually caspofungin. His abdomen was left open and he was subsequently taken back on 05/08 for further washout, creation of an end colostomy and closure. He initially did well and took PO yesterday with some ostomy output. This AM he worsened with decreased mentation and N/V. He had an NG tube placed. No fevers, but the patient is currently unable to answer any questions. His partner is present and she provides additional history along with nursing. Allergies Allergy/AdvReac Type Severity Reaction Status Date / Time ibuprofen Allergy Intermediate UNABLE TO Unverified 09/03/17 09:52 TAKE DUE TO HEART MEDICATION, PER Home Medications Medication Instructions Recorded Confirmed Type ASPIRIN (ASPIRIN CHEWABLE) 81 mg PO DAILY ##0 09/03/17 11/05/23 History Doxycycline (Monohydrate) 50 mg PO DAILY ##0 09/03/17 11/05/23 History (Doxycycline) Metoprolol Succinate (TOPROL XL) 25 mg PO DAILY ##0 09/03/17 05/11/24 History lisinopril 20 mg tablet 20 mg PO DAILY 11/05/23 05/11/24 History bupropion HCl 150 mg tablet,12 hr 150 mg PO BID 05/06/24 05/06/24 History sustained-release buspirone 10 mg tablet 10 mg PO TID 05/06/24 05/06/24 History morphine 60 mg tablet,extended 60 mg PO AMHS 05/06/24 05/06/24 History release nitrofurantoin 100 mg PO AMHS 05/06/24 05/06/24 History monohydrate/macrocrystals 100 mg capsule Patient History Medical History HLD (hyperlipidemia) Depression Anxiety Surgical History History of laparotomy (05/08/24) Re-Exploration Laparotomy, abdominal wash out, creation of end colostomy, explantation of abdominal wall mesh, abdominal wall closure(Not Applicable) - Carlos Marte, DO S/P laparoscopic-assisted sigmoidectomy (05/06/24) Exploratory Laparotomy, Sigmoidectomy, Appendectomy, Drainage of Intrabdominal abscess, placement of Abthera WoundVAC >50 cm2(Not Applicable) - Carlos Marte DO Hx of craniotomy Hx of right coronary artery stent placement Family History Other Family history unknown Social History Smoking Status: Unknown if ever smoked Preferred Language: Kazakh Communication Ability: Unable Professional Sports Scout Required: No Beliefs That Will Affect Care: None Current Living Situation: Spouse Feels Safe at Home: Yes Safety Concerns: Feels Safe At This Time Assistive Devices: None Review of Systems ROS unable to be obtained currently due to mental status. Physical Exam Gen- NAD, lethargic, chronically ill HEENT- NG tube in place Resp- On room air with normal respiratory rate Abd- Ostomy in place, surgical bandage Ext- No edema Skin- NO rash Neuro-- Opens eyes to command from partner at bedside, but not answering questions or following other commands Results & Data Vital Signs (Past 12 Hours) Vital Signs Temp Pulse Resp BP BP Pulse Ox O2 Del Method 05/12/24 11:59 37.5 C 82 18 150/95 H 95 Room Air 05/12/24 08:01 37.3 C 81 18 177/113 H 95 Room Air Laboratory Results WBC 10.8 -> 6.2 Hgb 11.7 Platelets 226 Na 138 Creatinine 0.65 BUN [address] abdomen/pelvis from 05/06/24 reviewed by me: Free intraperitoneal air, inflammed bowel Blood cultures 05/06 negative Abdominal fluid cultures 05/06 positive for E coli, S anginosus, Bacteroides
--- NOTE | 2024-05-12 15:14 | Hospitalist Progress Note ---
Date of Service May 12, 2024 Assessment & Plan (1) S/P exploratory laparotomy: Plan Remy Lujan is a 58y/o M with PMHx of dyslipidemia, ALEKSANDR on CPAP, CAD s/p stent placement, history of [place] [~2014], HTN, ischemic cardiomyopathy, bilateral Meniere disease, erythrocytosis, glioblastoma s/p craniotomy + resection admitted with pneumoperitoneum in the setting of sigmoid colon perforation. Hospitalist team consulted for post-operative medical management. Pneumoperitoneum Sigmoid Colon Perforation Ventilator Dependent respiratory failure s/p Exploratory Laparotomy x 2. On 05/06 and 05/08 -on 05/06 as a result of pneumoperitoneum -found to have a sigmoid perforation with purulent peritonitis and intra- abdominal abscess. Sigmoidectomy and appendectomy also performed. -transferred to ICU with open abdomen, intubated. -Patient then underwent re-exploration laparotomy on 05/08 for abdominal wash- out, removal of mesh, creation of end colostomy, and abdominal closure. Patient was extubated on 05/09, has been successfully off of mechanical vent ilation for over 24 hours. Currently on RA Abdomen Cx obtained from surgery grew pansensitive E coli, bacteroides and strep anginosus Blood Cx NGTD Was initially on IV Zosyn and IV Caspofungin. IV Caspofungin has since been d/c ID consulted for further recs to guide treatment and for recs for discharge. Recommended/stated the following: "OK to stop the caspofungin, but I would continue the pip-tazo for now. If he were on a positive clinical trajectory he shouldn't need pip-tazo beyond 05/12 or 05/13 (4 days beyond achieving source control in the OR). With his current decline as of today, repeating imaging of his abdomen (and head) may be warranted to look for a cause. He is at risk for post-op abscess or breakdown w ith his use of dexamethasone. If he does improve in the next 1-2 days and no concerns about residual infection, then the abx should not be continued beyond 7 days post-op at the most. If he continues to decline and repeat imaging is obtained (in alignment with goals of care), then abx duration may need to be extended. ID will continue to follow along from afar." Continue with IV Zosyn at this time Further care per primary General Surgery team PT/OT Small Bowel Obstruction Pt with episodes of N/V overnight 05/11 to 05/12 KUB ordered noting ileus vs SBO and moderate fecal retention NG tube placed per General Surgery recs NPO IVF Further recs per General Surgery Continue to monitor Glioblastoma S/P Craniotomy & Tumor Resection [11/10/2023] Patient was diagnosed with glioblastoma involving the left temporal occipital region and October 2023. Per chart review, completed chemo/radiation in early January 2024. Using an [employer] TTFfield device and on Lomustine 40mg orally at home. On Keppra 500mg po BID for seizure prophylaxis. Home pain regimen of MS Contin 60mg BID and MSIR 30mg q4h PRN Palliative Care was consulted for further inpatient pain med recs, appreciate recs HTN CAD s/p stent placement Hx of [place] On lisinopril 20mg, Toprol XL 25mg daily at home Not currently on statin due to intolerance, was exploring repatha per chart review Oral amlodipine initiated 05/10 while in ICU, home lisinopril on hold at that time as well as toprol due to bradycardia during early admission Bradycardia currently resolved, resume home toprol at 12.5mg daily in setting of CAD and Hx of [place] Consider resuming BUSTER (lisinopril) at lower dose Hx of statin intolerance Continue to monitor Will need to re-establish/follow up with cardiology after discharge, last visit March 2023 Anxiety/Depression Home bupropion resumed 05/10, continue Home buspar on hold ALEKSANDR Continue CPAP HS. Diet: being advanced by primary team DVT Prophylaxis: SQ Heparin Code Status: DNR/DNI - Patient would not want any heroic measures in the event of a cardiac arrest per previous provider documentation. PCP: Luz Maria Gama DO Thank you for this consultation. We will follow the patient with you during their hospital stay. You can reach a member of the [facility] Hospitalist Team 12/04 via the hospitalist role on tiger text. Admission and Anticipated Discharge Date Admission Date: May 06, 2024 Subjective pt threw up overnight and multiple episodes during the day. Seen with partner at bedside. Pt confused. Review of Systems Review of Systems: All systems reviewed & are unremarkable except as noted in Subjective Physical Exam Physical Exam: General: Alert, confused Psych: Appropriate mood and affect Neuro: difficulty with movements in the bed HEENT: NC/AT, NG tube in place CV: RRR Resp: no increased effort of breathing Abdomen: Distended, tender, colostomy bag in place, bandages with some noted discharge Extremities: waffle boots on lower extremities bilaterally. Results & Data Results & Data Vital Signs (Past 12 Hours) Vital Signs Temp Pulse Resp BP BP Pulse Ox O2 Del Method 05/12/24 11:59 37.5 C 82 18 150/95 H 95 Room Air 05/12/24 08:01 37.3 C 81 18 177/113 H 95 Room Air Diagnostic Findings Abdomen/Pelvis CT 05/06/24 15:29 CT SCAN OF THE ABDOMEN AND PELVIS WITH IV CONTRAST CLINICAL HISTORY: Lower abdominal pain. COMPARISON STUDY: No priors. TECHNIQUE: Following the IV administration of 120 cc of Optiray 320, CT scan of the abdomen and pelvis is performed from the lung bases to the proximal femora. Images are reviewed in the axial, sagittal, and coronal planes. IV contrast was administered without complication. A dose lowering technique was utilized adhering to the principles of ALARA. CT DOSE: 1676.25 mGy.cm FINDINGS: Lung bases: The heart is normal in size and without pericardial effusion. There is trace pneumomediastinum. The lung bases are clear negative dependent scarring/atelectasis. Liver: The contrast-enhanced liver is size and contour. Attenuation is diffusely diminished indicating steatosis. Fatty sparing is seen adjacent to the gallbladder fossa. There is no intrahepatic biliary ductal dilatation. The hepatic veins and portal veins are patent. Gallbladder: Unremarkable. Spleen: Normal in size and attenuation. Pancreas: Unremarkable. Adrenal glands: Unremarkable. Kidneys: The contrast enhanced kidneys are normal in size and without hydronephrosis. The kidneys enhance symmetrically. Abdominal vasculature: There is advanced atherosclerotic calcification and mild ectasia of the abdominal aorta. Bowel: There is moderate colonic fecal retention. No bowel obstruction is seen. There is moderate colonic diverticulosis without clear CT evidence of acute diverticulitis. There are thick-walled and inflamed loop of small bowel in the central lower abdomen with surrounding fluid seen on axial image #293. The appendix is well-visualized and normal. Peritoneum: There is a large volume of intraperitoneal free air. Interloop fluid is seen in the lower abdomen and there is trace free fluid in the pelvis. No organized fluid collection is seen to suggest abscess. There is evidence of prior ventral hernia repair. Lymphadenopathy: None. Pelvic viscera: The bladder, prostate, and seminal vesicles are normal as visualized. Skeletal structures: There is moderate lumbosacral spondylosis. Mild sclerotic changes seen in the sacroiliac joints. No lytic or blastic lesions are seen. IMPRESSION: 1. There is a large volume of intraperitoneal free air indicative of visceral perforation. Surgical evaluation is advised. 2. The site of perforation is not clearly delineated. 3. There are inflamed loops of small bowel in the central lower abdomen with surrounding fluid, as well as significant diverticular disease of the left colon. Although not definitive, one of these sites is favored as the site of perforation. 4. No bowel obstruction is seen. 5. No organized fluid collection is identified to suggest abscess. 6. Hepatic steatosis. 7. There is trace pneumomediastinum, likely related to intraperitoneal free air. 8. Additional findings as above. ACT 112: Negative or not required by law. Electronically signed by: Goyo Yun M.D. 05/06/2024 4:44 PM Chest X-Ray 05/06/24 20:25 XR chest 1V portable HISTORY: eval ETT and OGT placement post OR COMPARISON: Abdomen and pelvis CT 05/06/2024. FINDINGS: Endotracheal tube terminates 7.3 cm from the courtney. Nasogastric tube terminates below the diaphragm. There are low lung volumes. The heart is mildly enlarged. Bibasilar linear densities favor subsegmental atelectasis. No pneumothorax. Pneumoperitoneum and pneumomediastinum again noted. IMPRESSION: Endotracheal tube terminates 7.3 cm from the courtney. This should be advanced by approximately 2-3 cm. Pneumomediastinum and pneumoperitoneum again noted. ACT 112: Negative or not required by law. Electronically signed by: Bobby Penn M.D. 05/07/2024 8:01 AM Chest X-Ray 05/07/24 06:00 XR chest 1V portable HISTORY: eval lines and tubes and lung parks while intubat COMPARISON: Chest 05/06/2024. FINDINGS: The endotracheal tube terminates 7.6 cm from the courtney. Nasogastric tube terminates below the diaphragm. No pneumothorax. Right paratracheal thickening remains unchanged. The pneumomediastinum and pneumoperitoneum is again noted. Left basilar linear densities persist and favor subsegmental atelectasis. IMPRESSION: 1. Endotracheal tube terminates 7.6 cm from the courtney. This should be advanced by 2 to 3 cm. 2. The pneumomediastinum and pneumoperitoneum are again noted. ACT 112: Negative or not required by law. Electronically signed by: Bobby Penn M.D. 05/07/2024 8:01 AM Chest X-Ray 05/08/24 06:00 XR chest 1V portable CLINICAL HISTORY: eval lines and tubes and lung parks while intubat TECHNIQUE: Single frontal radiograph of the chest was obtained. Comparison: Comparison is made to chest radiograph 06/07/2024 FINDINGS: Lines and tubes are stable. Cardiomegaly is noted. There is suggestion of previously noted pneumomediastinum and pneumoperitoneum. Lungs are underinflated but clear. No evidence of pleural effusion or pneumothorax. IMPRESSION: Stable exam. Pneumomediastinum and pneumoperitoneum are partially visualized. Stable lines and tubes. ACT 112: Negative or not required by law. Electronically signed by: Alonso Guevara M.D. 05/08/2024 7:00 AM Chest X-Ray 05/09/24 06:00 SINGLE VIEW CHEST CLINICAL HISTORY: Respiratory failure FINDINGS: 2 AP, portable, semierect chest radiographs are compared to study dated 05/08/2024. Endotracheal and enteric tubes are unchanged in position. The heart is enlarged. The pulmonary vasculature is not congested. Chronic interstitial thickening is similar to previous. There is bibasilar scarring/atelectasis. No airspace consolidation or large pleural effusion is identified. No pneumothorax is seen. The bony thorax is grossly intact. IMPRESSION: 1. Stable lines and tubes. 2. Cardiomegaly without radiographic evidence of congestive failure. ACT 112: Negative or not required by law. Electronically signed by: Goyo Yun M.D. 05/09/2024 11:53 AM KUB X-Ray 05/12/24 08:33 KUB HISTORY: eval, s/p sigmoidectomy, n/v COMPARISON: Abdomen and pelvis CT 05/06/2024. FINDINGS: Interval midline skin joyce are noted. Moderate gaseous distention of the stomach. The left lower quadrant ostomy site is noted. Multiple dilated gas-filled loops of small bowel are seen within the abdomen which measure up to 5 cm in diameter. Moderate fecal retention is noted within the colon. No renal calculi. No ureteral calculi. No pneumoperitoneum or pneumatosis. IMPRESSION: 1. Moderate gaseous distention of the stomach. Multiple dilated gas-filled loops of small bowel. This is nonspecific but could represent a postoperative ileus. A small bowel obstruction also remains in the differential diagnosis. Follow-up recommended. 2. Moderate fecal retention. 3. Left lower quadrant colostomy is noted ACT 112: Negative or not required by law. Electronically signed by: Bobby Penn M.D. 05/12/2024 10:53 AM KUB X-Ray 05/12/24 12:38 XR KUB/Abdomen 1 view CLINICAL HISTORY: NEW NG TUBE PLACEMENT TECHNIQUE: 1 view of the abdomen was obtained. Comparison: Comparison is made to abdomen radiograph 05/12/2024 FINDINGS: Enteric tube terminates in the stomach. The osseous structures are grossly unremarkable. The stomach is seen. Please see abdomen radiograph performed same day for findings of small bowel dilation. IMPRESSION: 1. Satisfactory position of enteric tube. 2. Please see abdomen radiograph performed same day for findings of ileus/obstruction. ACT 112: Negative or not required by law. Electronically signed by: Alonso Guevara M.D. 05/12/2024 1:11 PM
[2024-05-12] MEDS: POTASSIUM PHOSPHATE 21 MMOL in SODIUM CHLORIDE 0.9% 500 ML IV ONE (18:19)
[2024-05-12] MEDS: SODIUM CHLORIDE 0.9% 1,000 ML IV SCH (18:24)
--- NOTE | 2024-05-12 19:01 | XRay Report ---
XR KUB/Abdomen 1 view CLINICAL HISTORY: NG tube placement TECHNIQUE: 1 view of the abdomen was obtained. Comparison: Comparison is made to abdomen radiograph 05/12/2024 FINDINGS: The enteric tube is looped in the distal esophagus. The osseous structures are grossly unremarkable. IMPRESSION: Enteric tube is looped in the distal esophagus and should be repositioned. ACT 112: Negative or not required by law. Electronically signed by: Alonso Guevara M.D. 05/12/2024 7:00 PM
[2024-05-13 06:19] LABS: Basophils # (auto) 0.04 K/uL (0.00-0.20); Basophils % (auto) 0.7 %; Eosinophils # (auto) 0.03 K/uL (0.00-0.50); Eosinophils % (auto) 0.5 %; Hematocrit (blood only) 36.2 % (42.0-52.0); Hemoglobin 12.2 g/dl (14.0-18.0); Lymphocytes % (auto) 16.5 %; Mean Corpuscular Hgb Conc 33.7 g/dL (32.0-36.0); Mean Corpuscular Volume 92.1 fL (80.0-100.0); Mean Platelet Volume 9.7 fL (9.4-12.4); Monocytes # (auto) 0.36 K/uL (0.11-0.59); Neutrophils # (auto) 4.32 K/uL (1.40-6.50); Neutrophils % (auto) 71.3 %; Platelet Count 265 K/uL (130-400); RDW Coefficient of Variation 14.1 % (11.5-14.5); RDW Standard Deviation 48.2 fL (36.4-46.3); Red Blood Count 3.93 M/uL (4.70-6.10); White Blood Count 6.05 K/ul (4.8-10.8)
[2024-05-13 06:38] LABS: Albumin Globulin Ratio 0.9 (0.9-2); Albumin Level 2.7 gm/dl (3.4-5.0); BUN Creatinine Ratio 29.7 (10-20); Bilirubin,Total 0.6 mg/dl (0.2-1.0); Calcium 7.8 mg/dl (8.6-10.3); Creatinine Clr Calc Pharmacy 187.1 ml/min; Est GFR (African American) 125.1 ml/min; Est GFR (Non-African American) 107.9 ml/min; Globulin 2.9 gm/dl (2.5-4.0); Magnesium 2.1 mg/dl (1.7-2.4); Phosphorus 1.8 mg/dl (2.5-4.9); Potassium 3.3 mmol/L (3.5-5.1); Total Protein 5.6 gm/dl (6.0-8.3)
[2024-05-13] MEDS ORDERED: POTASSIUM PHOS 3 MMOL/1 ML INFUSION IV STA (08:00)
[2024-05-13] MEDS: POTASSIUM PHOSPHATE 24 MMOL in SODIUM CHLORIDE 0.9% 500 ML IV ONE (09:01)
[2024-05-13] MEDS: NSS + 20MEQ KCL 20 MEQ/1,000 ML BAG IV SCH (09:02)
--- NOTE | 2024-05-13 10:26 | XRay Report ---
KUB CLINICAL HISTORY: Enteric tube placement. FINDINGS: An AP, portable, upright view of the lower chest and upper abdomen is compared to study cain ed 05/12/2024 and correlated with abdominal CT dated 05/06/2024. An enteric tube has been repositioned. The tip projects below the diaphragm over the proximal stomach. Mildly distended loops of small bow el may represent ileus. No intraperitoneal free air is seen below the diaphragm. There are no abnorma l calcifications the upper abdomen. Atelectasis is noted at the lung bases. IMPRESSION: An enteric tube has been repositioned as above. Electronically signed by: Goyo Yun M.D. 05/13/2024 10:25 AM
--- NOTE | 2024-05-13 10:31 | XRay Report ---
KUB CLINICAL HISTORY: Bowel perforation with recent surgery. FINDINGS: 5 AP, portable, supine abdominal radiographs are compared to study dated 05/12/2024 and rupal elated with abdominal CT dated 05/06/2024. An enteric tube projects below the diaphragm over the stoma ch. An electronic device projects over the right lower quadrant. Skin clips are seen in the lower abd omen. There is likely a surgical drain in place. There is gaseous distention of the small bowel loops which measure up to 5 cm in diameter. Gas and stool is noted in the right colon. No evidence of intr aperitoneal free air is seen on these supine images. There are no abnormal abdominal calcifications. Phleboliths are seen in the pelvis. The bony structures appear intact. IMPRESSION: 1. Postsurgical changes as above. 2. There is gaseous distention of the small bowel loops, which likely represents ileus in this postsu rgical patient. Developing obstruction is considered less likely but could appear similar. Clinical c orrelation will be required. Electronically signed by: Goyo Yun M.D. 05/13/2024 10:28 AM
--- NOTE | 2024-05-13 15:41 | Hospitalist Progress Note ---
Date of Service May 13, 2024 Assessment & Plan (1) S/P exploratory laparotomy: Plan Remy Lujan is a 58y/o M with PMHx of dyslipidemia, ALEKSANDR on CPAP, CAD s/p stent placement, history of [place] [~2014], HTN, ischemic cardiomyopathy, bilateral Meniere disease, erythrocytosis, glioblastoma s/p craniotomy + resection admitted with pneumoperitoneum in the setting of sigmoid colon perforation. Hospitalist team consulted for post-operative medical management. Pneumoperitoneum Sigmoid Colon Perforation Ventilator Dependent respiratory failure s/p Exploratory Laparotomy x 2. On 05/06 and 05/08 -on 05/06 as a result of pneumoperitoneum -found to have a sigmoid perforation with purulent peritonitis and intra- abdominal abscess. Sigmoidectomy and appendectomy also performed. -transferred to ICU with open abdomen, intubated. -Patient then underwent re-exploration laparotomy on 05/08 for abdominal wash- out, removal of mesh, creation of end colostomy, and abdominal closure. Patient was extubated on 05/09, has been successfully off of mechanical vent ilation for over 24 hours. Currently on RA Abdomen Cx obtained from surgery grew pansensitive E coli, bacteroides and strep anginosus Blood Cx NGTD Was initially on IV Zosyn and IV Caspofungin. IV Caspofungin has since been d/c ID consulted for further recs to guide treatment and for recs for discharge. Recommended/stated the following: "OK to stop the caspofungin, but I would continue the pip-tazo for now. If he were on a positive clinical trajectory he shouldn't need pip-tazo beyond 05/12 or 05/13 (4 days beyond achieving source control in the OR). With his current decline as of today, repeating imaging of his abdomen (and head) may be warranted to look for a cause. He is at risk for post-op abscess or breakdown w ith his use of dexamethasone. If he does improve in the next 1-2 days and no concerns about residual infection, then the abx should not be continued beyond 7 days post-op at the most. If he continues to decline and repeat imaging is obtained (in alignment with goals of care), then abx duration may need to be extended. ID will continue to follow along from afar." Continue with IV Zosyn at this time Further care per primary General Surgery team PT/OT Small Bowel Obstruction Pt with episodes of N/V overnight 05/11 to 05/12 KUB ordered noting ileus vs SBO and moderate fecal retention NG tube placed per General Surgery recs NPO IVF Further recs per General Surgery Continue to monitor Glioblastoma S/P Craniotomy & Tumor Resection [11/10/2023] Patient was diagnosed with glioblastoma involving the left temporal occipital region and October 2023. Per chart review, completed chemo/radiation in early January 2024. Using an [employer] TTFfield device and on Lomustine 40mg orally at home. On Keppra 500mg po BID for seizure prophylaxis. Home pain regimen of MS Contin 60mg BID and MSIR 30mg q4h PRN Palliative Care was consulted for further inpatient pain med recs, appreciate recs HTN CAD s/p stent placement Hx of [place] On lisinopril 20mg, Toprol XL 25mg daily at home Not currently on statin due to intolerance, was exploring repatha per chart review Oral amlodipine initiated 05/10 while in ICU, home lisinopril on hold at that time as well as toprol due to bradycardia during early admission Bradycardia currently resolved, resume home toprol at 12.5mg daily in setting of CAD and Hx of [place] Consider resuming BUSTER (lisinopril) at lower dose Hx of statin intolerance Continue to monitor Will need to re-establish/follow up with cardiology after discharge, last visit March 2023 Anxiety/Depression Home bupropion resumed 05/10, continue Home buspar on hold ALEKSANDR Continue CPAP HS. Diet: being advanced by primary team DVT Prophylaxis: SQ Heparin Code Status: DNR/DNI - Patient would not want any heroic measures in the event of a cardiac arrest per previous provider documentation. PCP: Luz Maria Gama, Thank you for this consultation. We will follow the patient with you during their hospital stay. You can reach a member of the [facility] Hospitalist Team 12/04 via the hospitalist role on tiger text. Admission and Anticipated Discharge Date Admission Date: May 06, 2024 Subjective pt was seen in the PM. laying in bed, resting comfortably. no one at bedside at the time. Review of Systems Review of Systems: All systems reviewed & are unremarkable except as noted in Subjective Physical Exam Physical Exam: General: sleeping HEENT: NC/AT, NG tube in place CV: RRR Resp: no increased effort of breathing Abdomen: Distended, colostomy bag in place, bandages with some noted discharge Extremities: SCDs on lower extremities bilaterally. Results & Data Results & Data Vital Signs (Past 12 Hours) Vital Signs Temp Pulse Pulse Resp BP Pulse Ox O2 Del Method 05/13/24 15:24 36.7 C 78 18 144/87 H 95 Room Air 05/13/24 13:56 79 05/13/24 11:57 37.2 C 79 18 164/97 H 95 Room Air 05/13/24 11:26 Room Air 05/13/24 08:24 75 05/13/24 07:37 36.9 C 77 18 161/92 H 95 Room Air
--- NOTE | 2024-05-13 19:14 | Surgery Progress Note ---
Date of Service May 13, 2024 Assessment & Plan (1) Glioblastoma: (2) Bowel perforation: (3) S/P exploratory laparotomy: Plan: 05/08/24 s/p exlap sigmoidectomy/appendectomy and take-back for washout and colostomy formation. Without ever, leukocytosis and has remained HD stable colostomy beginning to function. Still without flatus, persistent nausea and post operative ileus at this time Overall is slowly showing some improvement. Will continue NPO as patient still with nausea. KUB this am still with significantly distended small bowel. No flatus in colostomy bag Palliative on board assisting with pain control. Appreciate hospitalists assistance with pt as well PT/OT on board, encourage OOB and pulm toilet Continue IV abx I have called his Candi with updates today I will follow up in the am Admission and Anticipated Discharge Date Admission Date: May 06, 2024 Subjective Patient continues to c/o nausea but had not vomited since NGT manipulation late yesterday and the aspiration of over a liter of dark thick GI fluids from NGT yesterday afternoon up until which he was continued to vomit with the NGT in place. Nurse at the time of my evaluation this afternoon reported no further vomiting since then. Colostomy reported to have started with stool output yesterday afternoon. Physical Exam Gastrointestinal (Abdomen): Percussion/Palpation: abdomen soft; abdomen nontender and no guarding colotomy bag with a large amount of thick stool and no appreciable flatus in the bag. Abdomen is non-tender per patient this am. Results & Data Vital Signs (Past 12 Hours) Vital Signs Temp Pulse Pulse Resp BP Pulse Ox O2 Del Method 05/13/24 15:24 36.7 C 78 18 144/87 H 95 Room Air 05/13/24 13:56 79 05/13/24 11:57 37.2 C 79 18 164/97 H 95 Room Air 05/13/24 11:26 Room Air 05/13/24 08:24 75 05/13/24 07:37 36.9 C 77 18 161/92 H 95 Room Air PG Care Time/CCT Total # of Minutes Spent Total Time Spent with Patient: Total time spent is greater than 50% in coordination of care (as documented) at patient's floor/unit and/or counseling patient: Coding Level of Care Code 50968 Post Operative Follow-Up Diagnoses Glioblastoma C71.9 Bowel perforation K63.1 S/P exploratory laparotomy Z98.89
[2024-05-14 06:25] LABS: Basophils # (auto) 0.03 K/uL (0.00-0.20); Basophils % (auto) 0.5 %; Eosinophils # (auto) 0.03 K/uL (0.00-0.50); Eosinophils % (auto) 0.5 %; Hematocrit (blood only) 34.3 % (42.0-52.0); Hemoglobin 11.2 g/dl (14.0-18.0); Immature Granulocytes # (auto) 0.26 K/uL (0.01-0.20); Immature Granulocytes % (auto) 4.2 %; Lymphocytes # (auto) 1.27 K/uL (1.20-3.40); Lymphocytes % (auto) 20.4 %; Mean Corpuscular Hemoglobin 30.8 pg (25.0-34.0); Mean Corpuscular Hgb Conc 32.7 g/dL (32.0-36.0); Mean Corpuscular Volume 94.2 fL (80.0-100.0); Mean Platelet Volume 9.8 fL (9.4-12.4); Monocytes # (auto) 0.44 K/uL (0.11-0.59); Monocytes % (auto) 7.1 %; Neutrophils # (auto) 4.19 K/uL (1.40-6.50); Neutrophils % (auto) 67.3 %; Platelet Count 290 K/uL (130-400); RDW Coefficient of Variation 14.1 % (11.5-14.5); RDW Standard Deviation 48.7 fL (36.4-46.3); Red Blood Count 3.64 M/uL (4.70-6.10); White Blood Count 6.22 K/ul (4.8-10.8)
[2024-05-14 07:13] LABS: Albumin Level 2.6 gm/dl (3.4-5.0); BUN Creatinine Ratio 22.9 (10-20); Bilirubin,Total 0.6 mg/dl (0.2-1.0); Calcium 7.6 mg/dl (8.6-10.3); Creatinine Clr Calc Pharmacy 171.9 ml/min; Est GFR (African American) 120.6 ml/min; Globulin 2.7 gm/dl (2.5-4.0); Magnesium 2.2 mg/dl (1.7-2.4); Phosphorus 1.9 mg/dl (2.5-4.9); Potassium 3.3 mmol/L (3.5-5.1); Total Protein 5.3 gm/dl (6.0-8.3)
[2024-05-14] MEDS ORDERED: POTASSIUM PHOS 3 MMOL/1 ML INFUSION IV STA (10:41)
--- NOTE | 2024-05-14 11:28 | Surgery Progress Note ---
Date of Service May 14, 2024 Assessment & Plan (1) Glioblastoma: (2) Bowel perforation: (3) S/P exploratory laparotomy: Plan: Patient seen and examined with Dr. Conn. 05/08/24 s/p exlap sigmoidectomy/appendectomy and take-back for washout and colos dino formation. Without ever, leukocytosis and has remained HD stable He is more awake today and more conversational. Colostomy functioning. He is producing some flatus this morning. Overall is slowly showing some improvement. Will attempt 4 hr clamping trial and if residual is less than 100 cc when reattached, can begin trial of clear liquids. Can hopefully remove NG tube later today or tomorrow morning. Palliative on board assisting with pain control. Appreciate hospitalists assistance with pt as well PT/OT on board, encourage OOB and pulm toilet Continue IV abx Dr. Conn will call patient's to offer update. Admission and Anticipated Discharge Date Admission Date: May 06, 2024 Supervising Physician Co-Signing Physician Notes I have seen and examined this patient with the surgical PA, I agree with this plan Subjective Remy is resting in bed, he is more awake this morning and able to answer questions appropriately. He denies any nausea or vomiting. He reports that his pain is controlled. He does not feel hungry right now. Review of Systems Review of Systems: All systems reviewed & are unremarkable except as noted in Subjective Physical Exam Constitutional: WD/WN, vitals as above Respiratory: normal respiratory effort; no respiratory distress and no labored breathing Gastrointestinal (Abdomen): Percussion/Palpation: abdomen soft; abdomen nontender and no guarding colotomy bag with a large amount of thick stool and small amount of flatus in the bag. Abdomen is not-tender per patient this am. Results & Data Vital Signs (Past 12 Hours) Vital Signs Temp Pulse Pulse Resp BP Pulse Ox O2 Del Method 05/14/24 07:37 36.7 C 75 18 167/91 H 94 Room Air 05/14/24 07:23 Room Air 05/14/24 07:12 75 05/14/24 03:20 36.7 C 62 18 136/69 98 Room Air 05/14/24 01:00 Room Air 05/13/24 23:53 74 05/13/24 23:23 37 C 70 18 145/84 H 95 Room Air PG Care Time/CCT Total # of Minutes Spent Total Time Spent with Patient: Total time spent is greater than 50% in coordination of care (as documented) at patient's floor/unit and/or counseling patient: Coding Level of Care Code 11249 Post Operative Follow-Up Diagnoses Glioblastoma C71.9 Bowel perforation K63.1 S/P exploratory laparotomy Z98.890
[2024-05-14] MEDS: CALCIUM GLUCONATE 1,000 MG/60 ML BAG IV SCH (12:00)
[2024-05-14] MEDS: POTASSIUM CHLORIDE / WTR 10 MEQ/100 ML PLCT IV SCH (12:00)
--- NOTE | 2024-05-14 13:09 | Hospitalist Progress Note ---
Date of Service May 14, 2024 Assessment & Plan (1) S/P exploratory laparotomy: Plan Remy Lujan is a 58y/o M with PMHx of dyslipidemia, ALEKSANDR on CPAP, CAD s/p stent placement, history of [place] [~2014], HTN, ischemic cardiomyopathy, bilateral Meniere disease, erythrocytosis, glioblastoma s/p craniotomy + resection admitted with pneumoperitoneum in the setting of sigmoid colon perforation. Hospitalist team consulted for post-operative medical management. Pneumoperitoneum Sigmoid Colon Perforation Ventilator Dependent respiratory failure s/p Exploratory Laparotomy x 2. On 05/06 and 05/08 -on 05/06 as a result of pneumoperitoneum -found to have a sigmoid perforation with purulent peritonitis and intra- abdominal abscess. Sigmoidectomy and appendectomy also performed. -transferred to ICU with open abdomen, intubated. -Patient then underwent re-exploration laparotomy on 05/08 for abdominal wash- out, removal of mesh, creation of end colostomy, and abdominal closure. Patient was extubated on 05/09, has been successfully off of mechanical vent ilation for over 24 hours. Currently on RA Abdomen Cx obtained from surgery grew pansensitive E coli, bacteroides and strep anginosus Blood Cx NGTD Was initially on IV Zosyn and IV Caspofungin. IV Caspofungin has since been d/c ID consulted for further recs to guide treatment and for recs for discharge. Recommended/stated the following: "OK to stop the caspofungin, but I would continue the pip-tazo for now. If he were on a positive clinical trajectory he shouldn't need pip-tazo beyond 05/12 or 05/13 (4 days beyond achieving source control in the OR). With his current decline as of today, repeating imaging of his abdomen (and head) may be warranted to look for a cause. He is at risk for post-op abscess or breakdown w ith his use of dexamethasone. If he does improve in the next 1-2 days and no concerns about residual infection, then the abx should not be continued beyond 7 days post-op at the most. If he continues to decline and repeat imaging is obtained (in alignment with goals of care), then abx duration may need to be extended. ID will continue to follow along from afar." Continue with IV Zosyn at this time Further care per primary General Surgery team PT/OT Small Bowel Obstruction Pt with episodes of N/V overnight 05/11 to 05/12 KUB ordered noting ileus vs SBO and moderate fecal retention NG tube placed per General Surgery recs NPO IVF Further recs per General Surgery Continue to monitor improving Hypocalcemia Hypokalemia Hypophosphatemia Likely in setting of above Replete as needed Glioblastoma S/P Craniotomy & Tumor Resection [11/10/2023] Patient was diagnosed with glioblastoma involving the left temporal occipital region and October 2023. Per chart review, completed chemo/radiation in early January 2024. Using an [employer] TTFfield device and on Lomustine 40mg orally at home. On Keppra 500mg po BID for seizure prophylaxis. Home pain regimen of MS Contin 60mg BID and MSIR 30mg q4h PRN Palliative Care was consulted for further inpatient pain med recs, appreciate recs HTN CAD s/p stent placement Hx of [place] On lisinopril 20mg, Toprol XL 25mg daily at home Not currently on statin due to intolerance, was exploring repatha per chart review Oral amlodipine initiated 05/10 while in ICU, home lisinopril on hold at that time as well as toprol due to bradycardia during early admission Bradycardia currently resolved, resume home toprol at 12.5mg daily in setting of CAD and Hx of [place] Consider resuming BUSTER (lisinopril) at lower dose Hx of statin intolerance Continue to monitor Will need to re-establish/follow up with cardiology after discharge, last visit March 2023 Anxiety/Depression Home bupropion resumed 05/10, continue Home buspar on hold ALEKSANDR Continue CPAP HS. Diet: being advanced by primary team DVT Prophylaxis: SQ Heparin Code Status: DNR/DNI - Patient would not want any heroic measures in the event of a cardiac arrest per previous provider documentation. PCP: Luz Maria Gama, DO Thank you for this consultation. We will follow the patient with you during their hospital stay. You can reach a member of the [facility] Hospitalist Team 12/04 via the hospitalist role on tiger text. Admission and Anticipated Discharge Date Admission Date: May 06, 2024 Subjective Pt seen with family at bedside. More alert, conversant. States N/V improving Review of Systems Review of Systems: All systems reviewed & are unremarkable except as noted in Subjective Physical Exam Physical Exam: General: sleeping HEENT: NC/AT, NG tube in place CV: RRR Resp: no increased effort of breathing Abdomen: Distended, colostomy bag in place, bandages with some noted discharge Extremities: SCDs on lower extremities bilaterally. Results & Data Results & Data Vital Signs (Past 12 Hours) Vital Signs Temp Pulse Pulse Resp BP Pulse Ox O2 Del Method 05/14/24 12:12 36.7 C 109 H 18 163/82 H 94 Room Air 05/14/24 07:37 36.7 C 75 18 167/91 H 94 Room Air 05/14/24 07:23 Room Air 05/14/24 07:12 75 05/14/24 03:20 36.7 C 62 18 136/69 98 Room Air
[2024-05-14] MEDS: POTASSIUM PHOSPHATE 21 MMOL in SODIUM CHLORIDE 0.9% 500 ML IV ONE (14:02)
[2024-05-14] MEDS: ONDANSETRON INJ 2 MG/ML 2 ML VIAL IV PRN (15:52)
[2024-05-15 07:45] LABS: Basophils # (auto) 0.03 K/uL (0.00-0.20); Basophils % (auto) 0.4 %; Eosinophils # (auto) 0.04 K/uL (0.00-0.50); Eosinophils % (auto) 0.6 %; Hematocrit (blood only) 33.9 % (42.0-52.0); Immature Granulocytes # (auto) 0.17 K/uL (0.01-0.20); Immature Granulocytes % (auto) 2.5 %; Lymphocytes # (auto) 1.18 K/uL (1.20-3.40); Lymphocytes % (auto) 17.4 %; Mean Corpuscular Hemoglobin 30.6 pg (25.0-34.0); Mean Corpuscular Hgb Conc 32.4 g/dL (32.0-36.0); Mean Corpuscular Volume 94.4 fL (80.0-100.0); Mean Platelet Volume 9.5 fL (9.4-12.4); Monocytes # (auto) 0.56 K/uL (0.11-0.59); Monocytes % (auto) 8.3 %; Neutrophils # (auto) 4.79 K/uL (1.40-6.50); Neutrophils % (auto) 70.8 %; Platelet Count 331 K/uL (130-400); Red Blood Count 3.59 M/uL (4.70-6.10); White Blood Count 6.77 K/ul (4.8-10.8)
[2024-05-15 08:07] LABS: Albumin Level 2.6 gm/dl (3.4-5.0); Bilirubin,Total 0.5 mg/dl (0.2-1.0); Calcium 7.4 mg/dl (8.6-10.3); Creatinine Clr Calc Pharmacy 185.4 ml/min; Est GFR (African American) 124.3 ml/min; Est GFR (Non-African American) 107.2 ml/min; Globulin 2.6 gm/dl (2.5-4.0); Phosphorus 1.7 mg/dl (2.5-4.9); Potassium 3.5 mmol/L (3.5-5.1); Total Protein 5.2 gm/dl (6.0-8.3)
[2024-05-15] MEDS ORDERED: POTASSIUM PHOS 3 MMOL/1 ML INFUSION IV STA (09:45)
[2024-05-15] MEDS: CALCIUM GLUCONATE 1,000 MG/60 ML BAG IV SCH (10:48)
[2024-05-15] MEDS: POTASSIUM PHOSPHATE 24 MMOL in SODIUM CHLORIDE 0.9% 500 ML IV ONE (11:33)
--- NOTE | 2024-05-15 15:48 | Surgery Progress Note ---
Date of Service May 15, 2024 Assessment & Plan (1) S/P exploratory laparotomy: Plan: s/p exlap sigmoidectomy/appendectomy and take-back for washout and colostomy formation 05/08/24 He is awake and appears in no distress but is somewhat confused His NGT is in place, was draining 750cc apparently overnight and 350 this AM. ostomy functioning however pt still complains of intermittent nausea. will clamp NGT for now and allow him some clears, if does well we can likely pull german. plan to clamp 5hrs, then check residuals if <100cc can re-clamp, if high residual or worsening nausea while clamped can replace to LIWS Ostomy is putting out some thick stool which is encouraging OOB as able with assistance. PT/OT, pulerich toilerenetta Appreciate medical team assisting us with patient Admission and Anticipated Discharge Date Admission Date: May 06, 2024 Supervising Physician Co-Signing Physician Notes I have seen and examined this patient this am. He continue with intermittent nausea and had some increased NGT drainage after removed from being clamped o/n due to nausea. The drainage was dark bilious. Will try clamping trial again today. Difficult as he is unable to be ambulated at the this time. Stoma healthy and continues with output. Dr. Gan will follow up in the am. Subjective Pt reports some nausea earlier today. Otherwise he is a bit confused. Physical Exam Physical Exam: awake, somewhat confused. appears comfortable and in no distress Respiratory: normal respiratory effort Gastrointestinal (Abdomen): Percussion/Palpation: abdomen soft ostomy with thick stool in bag. ngt canister with bilious output, now currently clamped Results & Data Vital Signs (Past 12 Hours) Vital Signs Temp Pulse Pulse Resp BP Pulse Ox O2 Del Method 05/15/24 15:31 98.6 F 80 20 155/79 H 95 Room Air 05/15/24 11:21 98.4 F 80 18 152/86 H 95 Room Air 05/15/24 09:22 Room Air 05/15/24 07:38 98.8 F 80 18 155/87 H 95 Room Air 05/15/24 07:17 81 PG Care Time/CCT Total # of Minutes Spent Total Time Spent with Patient: Total time spent is greater than 50% in coordination of care (as documented) at patient's floor/unit and/or counseling patient: Coding Level of Care Code 29158 Post Operative Follow-Up Diagnoses S/P exploratory laparotomy Z98.890
--- NOTE | 2024-05-15 16:20 | Hospitalist Progress Note ---
Date of Service May 15, 2024 Assessment & Plan (1) S/P exploratory laparotomy: Plan Remy Lujan is a 58y/o M with PMHx of dyslipidemia, ALEKSANDR on CPAP, CAD s/p stent placement, history of [place] [~2014], HTN, ischemic cardiomyopathy, bilateral Meniere disease, erythrocytosis, glioblastoma s/p craniotomy + resection admitted with pneumoperitoneum in the setting of sigmoid colon perforation. Hospitalist team consulted for post-operative medical management. Pneumoperitoneum Sigmoid Colon Perforation Ventilator Dependent respiratory failure s/p Exploratory Laparotomy x 2. On 05/06 and 05/08 -on 05/06 as a result of pneumoperitoneum -found to have a sigmoid perforation with purulent peritonitis and intra- abdominal abscess. Sigmoidectomy and appendectomy also performed. -transferred to ICU with open abdomen, intubated. -Patient then underwent re-exploration laparotomy on 05/08 for abdominal wash- out, removal of mesh, creation of end colostomy, and abdominal closure. Patient was extubated on 05/09, has been successfully off of mechanical vent ilation for over 24 hours. Currently on RA Abdomen Cx obtained from surgery grew pansensitive E coli, bacteroides and strep anginosus Blood Cx NGTD Was initially on IV Zosyn and IV Caspofungin. IV Caspofungin has since been d/c ID consulted for further recs to guide treatment and for recs for discharge. Recommended/stated the following: "OK to stop the caspofungin, but I would continue the pip-tazo for now. If he were on a positive clinical trajectory he shouldn't need pip-tazo beyond 05/12 or 05/13 (4 days beyond achieving source control in the OR). With his current decline as of today, repeating imaging of his abdomen (and head) may be warranted to look for a cause. He is at risk for post-op abscess or breakdown w ith his use of dexamethasone. If he does improve in the next 1-2 days and no concerns about residual infection, then the abx should not be continued beyond 7 days post-op at the most. If he continues to decline and repeat imaging is obtained (in alignment with goals of care), then abx duration may need to be extended. ID will continue to follow along from afar." Continue with IV Zosyn at this time Further care per primary General Surgery team PT/OT Small Bowel Obstruction Pt with episodes of N/V overnight 05/11 to 05/12 KUB ordered noting ileus vs SBO and moderate fecal retention NG tube placed per General Surgery recs NPO IVF Further recs per General Surgery Continue to monitor improving Hypocalcemia Hypokalemia Hypophosphatemia Likely in setting of above Replete as needed Glioblastoma S/P Craniotomy & Tumor Resection [11/10/2023] Patient was diagnosed with glioblastoma involving the left temporal occipital region and October 2023. Per chart review, completed chemo/radiation in early January 2024. Using an [employer] TTFfield device and on Lomustine 40mg orally at home. On Keppra 500mg po BID for seizure prophylaxis. Home pain regimen of MS Contin 60mg BID and MSIR 30mg q4h PRN Palliative Care was consulted for further inpatient pain med recs, appreciate recs HTN CAD s/p stent placement Hx of [place] On lisinopril 20mg, Toprol XL 25mg daily at home Not currently on statin due to intolerance, was exploring repatha per chart review Oral amlodipine initiated 05/10 while in ICU, home lisinopril on hold at that time as well as toprol due to bradycardia during early admission Bradycardia currently resolved, resume home toprol at 12.5mg daily in setting of CAD and Hx of [place] Consider resuming BUSTER (lisinopril) at lower dose Hx of statin intolerance Continue to monitor Will need to re-establish/follow up with cardiology after discharge, last visit March 2023 Anxiety/Depression Home bupropion resumed 05/10, continue Home buspar on hold ALEKSANDR Continue CPAP HS. Diet: being advanced by primary team DVT Prophylaxis: SQ Heparin Code Status: DNR/DNI - Patient would not want any heroic measures in the event of a cardiac arrest per previous provider documentation. PCP: Luz Maria Gama, DO Thank you for this consultation. We will follow the patient with you during their hospital stay. You can reach a member of the [facility] Hospitalist Team 12/04 via the hospitalist role on tiger text. Admission and Anticipated Discharge Date Admission Date: May 06, 2024 Subjective pt was seen laying in bed. More confused today. NG tube still with sig output Review of Systems Review of Systems: All systems reviewed & are unremarkable except as noted in Subjective Physical Exam Physical Exam: General: sleeping HEENT: NC/AT, NG tube in place CV: RRR Resp: no increased effort of breathing Abdomen: Distended, colostomy bag in place, bandages with some noted discharge Extremities: SCDs on lower extremities bilaterally. Results & Data Results & Data Vital Signs (Past 12 Hours) Vital Signs Temp Pulse Pulse Resp BP Pulse Ox O2 Del Method 05/15/24 15:31 37.0 C 80 20 155/79 H 95 Room Air 05/15/24 11:21 36.9 C 80 18 152/86 H 95 Room Air 05/15/24 09:22 Room Air 05/15/24 07:38 37.1 C 80 18 155/87 H 95 Room Air 05/15/24 07:17 81
[2024-05-16 06:51] LABS: Basophils # (auto) 0.03 K/uL (0.00-0.20); Basophils % (auto) 0.4 %; Eosinophils # (auto) 0.04 K/uL (0.00-0.50); Eosinophils % (auto) 0.5 %; Hematocrit (blood only) 32.5 % (42.0-52.0); Hemoglobin 10.6 g/dl (14.0-18.0); Immature Granulocytes # (auto) 0.19 K/uL (0.01-0.20); Immature Granulocytes % (auto) 2.5 %; Lymphocytes # (auto) 1.26 K/uL (1.20-3.40); Lymphocytes % (auto) 16.3 %; Mean Corpuscular Hemoglobin 30.5 pg (25.0-34.0); Mean Corpuscular Hgb Conc 32.6 g/dL (32.0-36.0); Mean Corpuscular Volume 93.4 fL (80.0-100.0); Mean Platelet Volume 9.6 fL (9.4-12.4); Monocytes # (auto) 0.61 K/uL (0.11-0.59); Monocytes % (auto) 7.9 %; Neutrophils % (auto) 72.4 %; Platelet Count 374 K/uL (130-400); RDW Standard Deviation 47.7 fL (36.4-46.3); Red Blood Count 3.48 M/uL (4.70-6.10); White Blood Count 7.73 K/ul (4.8-10.8)
[2024-05-16 07:10] LABS: Albumin Level 2.5 gm/dl (3.4-5.0); BUN Creatinine Ratio 13.1 (10-20); Bilirubin,Total 0.4 mg/dl (0.2-1.0); Calcium 7.4 mg/dl (8.6-10.3); Creatinine Clr Calc Pharmacy 198.5 ml/min; Est GFR (African American) 127.6 ml/min; Est GFR (Non-African American) 110.1 ml/min; Globulin 2.6 gm/dl (2.5-4.0); Magnesium 1.8 mg/dl (1.7-2.4); Phosphorus 1.9 mg/dl (2.5-4.9); Potassium 3.5 mmol/L (3.5-5.1); Total Protein 5.1 gm/dl (6.0-8.3)
[2024-05-16] MEDS ORDERED: POTASSIUM PHOS 3 MMOL/1 ML INFUSION IV STA (08:01)
[2024-05-16] MEDS: POTASSIUM PHOSPHATE 15 MMOL in SODIUM CHLORIDE 0.9% 250 ML IV ONE (09:02)
[2024-05-16] MEDS: CALCIUM GLUCONATE 1,000 MG/60 ML BAG IV SCH (09:02)
[2024-05-16] MEDS: POT PHOSPHATE MONOBASIC W/ SOD TAB PO SCH (09:10)
[2024-05-16] MEDS: CALCIUM CARBONATE 1,250 MG/5 ML UDC PO SCH (09:36)
--- NOTE | 2024-05-16 09:38 | Surgery Progress Note ---
Date of Service May 16, 2024 Assessment & Plan (1) S/P exploratory laparotomy: Plan: s/p exlap sigmoidectomy/appendectomy and take-back for washout and colostomy formation 05/08/24 He is awake and appears in no distress but is confused Isolated temp of 100F at 3am, has been afebrile since. other vitals stable WBC 7.7, Hbg 10, K 3.5 Patient tolerating intermittent NGT clamping yesterday evening and overnight with low residuals. No complaints of nausea and no anti-emetics received since yesterday AM. His ostomy is functioning. will plan on d/c NGT today and trial diet advancement to full liquids. Nutrition consulted for supplements Discussed with palliative to see patient today. With diet advancement we will need assistance with transitioning his pain meds to oral as able Also he will likely benefit from rehab as he live alone, PT/OT and social work following OOB as able with assistance. PT/OT, pulm toilet Appreciate medical team and palliative assisting us with patient Admission and Anticipated Discharge Date Admission Date: May 06, 2024 Supervising Physician Co-Signing Physician Notes Patient seen and examined, agree with above. Status post Odom's procedure for perforated sigmoid colon in setting of glioblastoma. Ostomy functioning, NG tube removed after tolerated yesterday. Still confused. Afebrile stable vitals. Ostomy patent and productive. Incision with dressing in place and drains, healing well. Labs reviewed. Will continue clears, may advance to full liquid then low fiber as tolerated. Subjective Patient confused this AM. When asked he does deny pain or nausea. He says he is cold. Physical Exam Physical Exam: awake, confused Respiratory: normal respiratory effort Gastrointestinal (Abdomen): Inspection/Auscultation: + abdominal surgical incision (c/d/i with aldo and joyce, no infection) Percussion/Palpation: abdomen soft; abdomen nontender + ostomy functioning with stool in bag Results & Data Vital Signs (Past 12 Hours) Vital Signs Temp Pulse Pulse Resp BP Pulse Ox O2 Del Method 05/16/24 09:06 98.1 F 85 20 142/85 H 95 Room Air 05/16/24 07:00 75 05/16/24 03:37 98.8 F 05/16/24 02:55 100.0 F H 75 18 140/79 96 Room Air 05/16/24 00:00 79 05/15/24 23:34 Room Air 05/15/24 22:39 98.1 F 82 18 149/84 H 96 Room Air PG Care Time/CCT Total # of Minutes Spent Total Time Spent with Patient: Total time spent is greater than 50% in coordination of care (as documented) at patient's floor/unit and/or counseling patient: Coding Level of Care Code 91640 Post Operative Follow-Up Diagnoses S/P exploratory laparotomy Z98.890
--- NOTE | 2024-05-16 13:52 | Hospitalist Progress Note ---
Date of Service May 16, 2024 Assessment & Plan (1) S/P exploratory laparotomy: Plan Remy Lujan is a 58y/o M with PMHx of dyslipidemia, ALEKSANDR on CPAP, CAD s/p stent placement, history of PR [~2015], HTN, ischemic cardiomyopathy, bilateral Meniere disease, erythrocytosis, glioblastoma s/p craniotomy + resection admitted with pneumoperitoneum in the setting of sigmoid colon perforation. Hospitalist team consulted for post-operative medical management. Pneumoperitoneum Sigmoid Colon Perforation Ventilator Dependent respiratory failure s/p Exploratory Laparotomy x 2. On 05/06 and 05/08 -on 05/06 as a result of pneumoperitoneum -found to have a sigmoid perforation with purulent peritonitis and intra- abdominal abscess. Sigmoidectomy and appendectomy also performed. -transferred to ICU with open abdomen, intubated. -Patient then underwent re-exploration laparotomy on 05/08 for abdominal wash- out, removal of mesh, creation of end colostomy, and abdominal closure. Patient was extubated on 05/09, has been successfully off of mechanical vent ilation for over 24 hours. Currently on RA Abdomen Cx obtained from surgery grew pansensitive E coli, bacteroides and strep anginosus Blood Cx NGTD Was initially on IV Zosyn and IV Caspofungin. IV Caspofungin has since been d/c ID consulted on 05/12 for further recs to guide treatment and for recs for discharge. Recommended/stated the following: "OK to stop the caspofungin, but I would continue the pip-tazo for now. If he were on a positive clinical trajectory he shouldn't need pip-tazo beyond 05/12 or 05/13 (4 days beyond achieving source control in the OR). With his current decline as of today, repeating imaging of his abdomen (and head) may be warranted to look for a cause. He is at risk for post-op abscess or breakdown with his use of dexamethasone. If he does improve in the next 1-2 days and no concerns about residual infection, then the abx should not be continued beyond 7 days post-op at the most. If he continues to decline and repeat imaging is obtained (in alignment with goals of care), then abx duration may need to be extended. ID will continue to follow along from afar." Continue with IV Zosyn at this time Further care per primary General Surgery team PT/OT Small Bowel Obstruction Pt with episodes of N/V overnight 05/11 to 05/12 KUB ordered noting ileus vs SBO and moderate fecal retention NG tube placed per General Surgery recs NPO, diet advancing currently IVF Further recs per General Surgery Continue to monitor 05/16- NG tube removed, gen surg advancing to full liquids at this time Hypocalcemia Hypokalemia Hypophosphatemia Likely in setting of above Replete as needed Glioblastoma S/P Craniotomy & Tumor Resection [11/10/2023] Patient was diagnosed with glioblastoma involving the left temporal occipital region and October 2023. Per chart review, completed chemo/radiation in early January 2024. Using an [employer] TTFfield device and on Lomustine 40mg orally at home. On Keppra 500mg po BID for seizure prophylaxis. Home pain regimen of MS Contin 60mg BID and MSIR 30mg q4h PRN Palliative Care was consulted for further inpatient pain med recs, appreciate recs HTN CAD s/p stent placement Hx of PR On lisinopril 20mg, Toprol XL 25mg daily at home Not currently on statin due to intolerance, was exploring repatha per chart review Oral amlodipine initiated 05/10 while in ICU, home lisinopril on hold at that time as well as toprol due to bradycardia during early admission Bradycardia currently resolved, resume home toprol at 12.5mg daily in setting of CAD and Hx of PR Consider resuming BUSTER (lisinopril) at lower dose Hx of statin intolerance Continue to monitor Will need to re-establish/follow up with cardiology after discharge, last visit March 2023 Anxiety/Depression Home bupropion resumed 05/10, continue Home buspar on hold ALEKSANDR Continue CPAP HS. Diet: being advanced by primary team DVT Prophylaxis: SQ Heparin Code Status: DNR/DNI - Patient would not want any heroic measures in the event of a cardiac arrest per previous provider documentation. PCP: Luz Maria Gama, DO Thank you for this consultation. We will follow the patient with you during their hospital stay. You can reach a member of the [facility] Hospitalist Team 12/04 via the hospitalist role on tiger text. Admission and Anticipated Discharge Date Admission Date: May 06, 2024 Subjective pt was seen laying in bed. Denied acute concerns. still confused. NG tube removed today. Review of Systems Review of Systems: All systems reviewed & are unremarkable except as noted in Subjective Physical Exam Physical Exam: General: sleeping HEENT: NC/AT CV: RRR Resp: no increased effort of breathing Abdomen: Distended, colostomy bag in place, bandages with some noted discharge Extremities: SCDs on lower extremities bilaterally. Results & Data Results & Data Vital Signs (Past 12 Hours) Vital Signs Temp Pulse Pulse Resp BP Pulse Ox O2 Del Method 05/16/24 11:11 Room Air 05/16/24 09:06 36.7 C 85 20 142/85 H 95 Room Air 05/16/24 07:00 75 05/16/24 03:37 37.1 C 05/16/24 02:55 37.8 C H 75 18 140/79 96 Room Air
--- NOTE | 2024-05-16 15:01 | Palliative Care Progress Note ---
Date of Service May 16, 2024 Assessment & Plan (1) Cancer related pain: Plan: For mgt of his baseline chronic cancler pain continue scheduled MS 3mg IV q4h and continues to have option of MS 2mg IV q2h prn BTP/Hold for somnolence or RR less than 14; please document RR with each dose administration. Senna elixir daily dose added for bowel regimen Please note: Prior to admisison opioid use was 150mg + oral MS daily.. Would avoid sudden cessation of opioids as he will withdraw (2) Confusion: Plan: trial low dose zyprexa zydis 2.5mg BID. will re eval tomorrow (3) Abdominal pain: (4) Palliative care by specialist: (5) Glioblastoma: (6) Discussion about advance care planning held with family member: Plan: A 35min telephonic advance care planning discussion was held with patient's significant other, Candi, earlier this morning from [id number]. She shared that her grandmother overnight and she will not be able to visit today. Shes worried about his confusion. She asks if this can be treated and we discussed some options and agreed to a trial of Zyprexa zydis ODT to help with delirium so long as primary team is in agreement. We discussed her concerns about disposition. She is clear he does not have any one who can be at his apartment to help him and she cannot meet his needs alone. We discussed rehab Candi is in agreement for rehab trial and likely need placement. He lives alone and has no other caregivers. She lives nearby but works realtime court reporter and cannot care for him on her own. [email or web address] so she will be resuming that once he is discharged. She understands that his goals of care may need to be revisited after dc. She shares that prior to this admission, they were already leaning towards not continuing not cancer tx. Plan As above D/w nursing and surgery Thank you for allowing us to participate in the ongoing care of this patient. Please page with any additional concerns. Selma Gonzalez DNP Director, Palliative Medicine Admission and Anticipated Discharge Date Admission Date: May 06, 2024 Jose Wesley is awake and reclining in bed No family present - Candi called me early this morning to share that her grandmother overnight and she was attending to family and planning today. Wesley seems more confused than prior baseline, +scattered in thoughts and tangential/off topic/random: "I just need to lie down and get some rest." (he was supine in bed saying this) then he said "I need a watermelon" and also "I don't have any pain but I also don't want to have any pain so i guess I have pain" Review of Systems Review of Systems: Unobtainable due to cognitive status (confusion, hx glio) Physical Exam Constitutional: + ill appearing (chronically ill, frail, weak) and + obese Eyes: PERRL ENMT: MM sl dry Neck: short neck, no stridor Respiratory: resp effort WNL at rest no conversational dyspnea Lungs diminished/? due to habitus no overt wheezing Cardiovascular: s1s2 Gastrointestinal (Abdomen): mid line incision/dressing intact Ostomy left, +beefy red appearance BS diminished, less TTP Musculoskeletal: gen weakness Moving BUE and BLE Skin: pale mottling across abdomen, BUE, cool to touch warmer BLE mild edema BLE and BUE Neurologic: confused at times rambling/off topic easily word location difficulty noted slow speech pattern [facility] + Results & Data Vital Signs (Past 12 Hours) Vital Signs Temp Pulse Pulse Resp BP Pulse Ox O2 Del Method 05/16/24 13:00 70 05/16/24 11:11 Room Air 05/16/24 09:06 36.7 C 85 20 142/85 H 95 Room Air 05/16/24 07:00 75 05/16/24 03:37 37.1 C 05/16/24 02:55 37.8 C H 75 18 140/79 96 Room Air Laboratory Results 05/16/24 05/15/24 05/14/24 Range/Units 06:15 07:23 05:41 WBC 7.73 6.77 6.22 (4.8-10.8) K/ul RBC 3.48 L 3.59 L 3.64 L (4.70-6.10) M/uL Hgb 10.6 L 11.0 L 11.2 L (14.0-18.0) g/dl Hct 32.5 L 33.9 L 34.3 L (42.0-52.0) % MCV 93.4 94.4 94.2 (80.0-100.0) fL MCH 30.5 30.6 30.8 (25.0-34.0) pg MCHC 32.6 32.4 32.7 (32.0-36.0) g/dL RDW Std Deviation 47.7 H 49.0 H 48.7 H (36.4-46.3) fL RDW Coeff of Vinicio 14.0 14.0 14.1 (11.5-14.5) % Plt Count 374 331 290 (130-400) K/uL MPV 9.6 9.5 9.8 (9.4-12.4) fL Immature Gran % (Auto) 2.5 2.5 4.2 % Neut % (Auto) 72.4 70.8 67.3 % Lymph % (Auto) 16.3 17.4 20.4 % Millard % (Auto) 7.9 8.3 7.1 % Eos % (Auto) 0.5 0.6 0.5 % Baso % (Auto) 0.4 0.4 0.5 % Neut # (Auto) 5.60 4.79 4.19 (1.40-6.50) K/uL Lymph # (Auto) 1.26 1.18 L 1.27 (1.20-3.40) K/uL Millard # (Auto) 0.61 H 0.56 0.44 (0.11-0.59) K/uL Eos # (Auto) 0.04 0.04 0.03 (0.00-0.50) K/uL Baso # (Auto) 0.03 0.03 0.03 (0.00-0.20) K/uL Immature Gran # (Auto) 0.19 0.17 0.26 H (0.01-0.20) K/uL Neutrophils % (Manual) % Lymphocytes % (Manual) % Monocytes % (Manual) % Eosinophils % (Manual) % Metamyelocytes % (Man) % Myelocytes % (Man) % Neutrophils # (Manual) (1.40-6.50) K/uL Total Absolute Neuts (1.4-6.5) K/uL Lymphocytes # (Manual) (1.2-3.4) K/uL Total Abs Lymphocytes (1.2-3.4) K/uL Monocytes # (Manual) (0.11-0.59) K/uL Eosinophils # (Manual) (0-0.50) K/uL Metamyelocytes # (Man) (0-0) K/uL Myelocytes # (Manual) (0-0) K/uL RBC Morphology Sodium 140 141 141 (136-145) mmol/L Potassium 3.5 3.5 3.3 L (3.5-5.1) mmol/L Chloride 109 H 109 H 108 H (98-107) mmol/L Carbon Dioxide 24 27 26 (21-32) mmol/L Anion Gap 7 5 7 (3-11) BUN 8 13 16 (6-23) mg/dl Creatinine 0.61 0.65 0.70 (0.6-1.4) mg/dl Est Cr Clr Drug Dosing 198.5 185.4 171.9 ml/min Est GFR ( Amer) 127.6 124.3 120.6 ml/min Est GFR (Non-Af Amer) 110.1 107.2 104.0 ml/min BUN/Creatinine Ratio 13.1 20.0 22.9 H (10-20) Glucose 80 88 77 (70-99(Fasting)) mg/dl POC Glucose (70-99) mg/dl Calcium 7.4 L 7.4 L 7.6 L (8.6-10.3) mg/dl Ionized Calcium 1.11 L 1.10 L 1.03 L (1.12-1.32) mmol/L Phosphorus 1.9 L 1.7 L 1.9 L (2.5-4.9) mg/dl Magnesium 1.8 2.0 2.2 (1.7-2.4) mg/dl Total Bilirubin 0.4 0.5 0.6 (0.2-1.0) mg/dl AST 14 17 20 (13-39) U/L ALT 15 18 23 (7-52) U/L Alkaline Phosphatase 48 51 53 (34-104) U/L Total Protein 5.1 L 5.2 L 5.3 L (6.0-8.3) gm/dl Albumin 2.5 L 2.6 L 2.6 L (3.4-5.0) gm/dl Globulin 2.6 2.6 2.7 (2.5-4.0) gm/dl Albumin/Globulin Ratio 1.0 1.0 1.0 (0.9-2) 05/13/24 05/13/24 05/12/24 Range/Units 12:06 05:48 19:03 WBC 6.05 (4.8-10.8) K/ul RBC 3.93 L (4.70-6.10) M/uL Hgb 12.2 L (14.0-18.0) g/dl Hct 36.2 L (42.0-52.0) % MCV 92.1 (80.0-100.0) fL MCH 31.0 (25.0-34.0) pg MCHC 33.7 (32.0-36.0) g/dL RDW Std Deviation 48.2 H (36.4-46.3) fL RDW Coeff of Vinicio 14.1 (11.5-14.5) % Plt Count 265 (130-400) K/uL MPV 9.7 (9.4-12.4) fL Immature Gran % (Auto) 5.0 % Neut % (Auto) 71.3 % Lymph % (Auto) 16.5 % Millard % (Auto) 6.0 % Eos % (Auto) 0.5 % Baso % (Auto) 0.7 % Neut # (Auto) 4.32 (1.40-6.50) K/uL Lymph # (Auto) 1.00 L (1.20-3.40) K/uL Millard # (Auto) 0.36 (0.11-0.59) K/uL Eos # (Auto) 0.03 (0.00-0.50) K/uL Baso # (Auto) 0.04 (0.00-0.20) K/uL Immature Gran # (Auto) 0.30 H (0.01-0.20) K/uL Neutrophils % (Manual) % Lymphocytes % (Manual) % Monocytes % (Manual) % Eosinophils % (Manual) % Metamyelocytes % (Man) % Myelocytes % (Man) % Neutrophils # (Manual) (1.40-6.50) K/uL Total Absolute Neuts (1.4-6.5) K/uL Lymphocytes # (Manual) (1.2-3.4) K/uL Total Abs Lymphocytes (1.2-3.4) K/uL Monocytes # (Manual) (0.11-0.59) K/uL Eosinophils # (Manual) (0-0.50) K/uL Metamyelocytes # (Man) (0-0) K/uL Myelocytes # (Manual) (0-0) K/uL RBC Morphology Sodium 140 (136-145) mmol/L Potassium 3.3 L (3.5-5.1) mmol/L Chloride 106 (98-107) mmol/L Carbon Dioxide 26 (21-32) mmol/L Anion Gap 8 (3-11) BUN 19 (6-23) mg/dl Creatinine 0.64 (0.6-1.4) mg/dl Est Cr Clr Drug Dosing 187.1 ml/min Est GFR ( Amer) 125.1 ml/min Est GFR (Non-Af Amer) 107.9 ml/min BUN/Creatinine Ratio 29.7 H (10-20) Glucose 90 (70-99(Fasting)) mg/dl POC Glucose 91 103 H (70-99) mg/dl Calcium 7.8 L (8.6-10.3) mg/dl Ionized Calcium (1.12-1.32) mmol/L Phosphorus 1.8 L (2.5-4.9) mg/dl Magnesium 2.1 (1.7-2.4) mg/dl Total Bilirubin 0.6 (0.2-1.0) mg/dl AST 20 (13-39) U/L ALT 27 (7-52) U/L Alkaline Phosphatase 49 (34-104) U/L Total Protein 5.6 L (6.0-8.3) gm/dl Albumin 2.7 L (3.4-5.0) gm/dl Globulin 2.9 (2.5-4.0) gm/dl Albumin/Globulin Ratio 0.9 (0.9-2) 05/12/24 05/12/24 05/12/24 Range/Units 12:33 08:23 08:08 WBC 6.20 (4.8-10.8) K/ul RBC 3.82 L (4.70-6.10) M/uL Hgb 11.7 L (14.0-18.0) g/dl Hct 35.6 L (42.0-52.0) % MCV 93.2 (80.0-100.0) fL MCH 30.6 (25.0-34.0) pg MCHC 32.9 (32.0-36.0) g/dL RDW Std Deviation 48.9 H (36.4-46.3) fL RDW Coeff of Vinicio 14.3 (11.5-14.5) % Plt Count 226 (130-400) K/uL MPV 9.6 (9.4-12.4) fL Immature Gran % (Auto) 8.2 % Neut % (Auto) 73.7 % Lymph % (Auto) 12.6 % Millard % (Auto) 4.5 % Eos % (Auto) 0.5 % Baso % (Auto) 0.5 % Neut # (Auto) 4.57 (1.40-6.50) K/uL Lymph # (Auto) 0.78 L (1.20-3.40) K/uL Millard # (Auto) 0.28 (0.11-0.59) K/uL Eos # (Auto) 0.03 (0.00-0.50) K/uL Baso # (Auto) 0.03 (0.00-0.20) K/uL Immature Gran # (Auto) 0.51 H (0.01-0.20) K/uL Neutrophils % (Manual) % Lymphocytes % (Manual) % Monocytes % (Manual) % Eosinophils % (Manual) % Metamyelocytes % (Man) % Myelocytes % (Man) % Neutrophils # (Manual) (1.40-6.50) K/uL Total Absolute Neuts (1.4-6.5) K/uL Lymphocytes # (Manual) (1.2-3.4) K/uL Total Abs Lymphocytes (1.2-3.4) K/uL Monocytes # (Manual) (0.11-0.59) K/uL Eosinophils # (Manual) (0-0.50) K/uL Metamyelocytes # (Man) (0-0) K/uL Myelocytes # (Manual) (0-0) K/uL RBC Morphology Sodium 138 (136-145) mmol/L Potassium 3.4 L (3.5-5.1) mmol/L Chloride 104 (98-107) mmol/L Carbon Dioxide 27 (21-32) mmol/L Anion Gap 7 (3-11) BUN 16 (6-23) mg/dl Creatinine 0.65 (0.6-1.4) mg/dl Est Cr Clr Drug Dosing 186.4 ml/min Est GFR ( Amer) 124.3 ml/min Est GFR (Non-Af Amer) 107.2 ml/min BUN/Creatinine Ratio 24.6 H (10-20) Glucose 98 (70-99(Fasting)) mg/dl POC Glucose 97 96 (70-99) mg/dl Calcium 8.1 L (8.6-10.3) mg/dl Ionized Calcium (1.12-1.32) mmol/L Phosphorus 1.9 L (2.5-4.9) mg/dl Magnesium 2.1 (1.7-2.4) mg/dl Total Bilirubin 0.6 (0.2-1.0) mg/dl AST 22 (13-39) U/L ALT 26 (7-52) U/L Alkaline Phosphatase 52 (34-104) U/L Total Protein 5.7 L (6.0-8.3) gm/dl Albumin 2.7 L (3.4-5.0) gm/dl Globulin 3.0 (2.5-4.0) gm/dl Albumin/Globulin Ratio 0.9 (0.9-2) 05/11/24 05/11/24 05/11/24 Range/Units 19:53 16:42 12:15 WBC (4.8-10.8) K/ul RBC (4.70-6.10) M/uL Hgb (14.0-18.0) g/dl Hct (42.0-52.0) % MCV (80.0-100.0) fL MCH (25.0-34.0) pg MCHC (32.0-36.0) g/dL RDW Std Deviation (36.4-46.3) fL RDW Coeff of Vinicio (11.5-14.5) % Plt Count (130-400) K/uL MPV (9.4-12.4) fL Immature Gran % (Auto) % Neut % (Auto) % Lymph % (Auto) % Millard % (Auto) % Eos % (Auto) % Baso % (Auto) % Neut # (Auto) (1.40-6.50) K/uL Lymph # (Auto) (1.20-3.40) K/uL Millard # (Auto) (0.11-0.59) K/uL Eos # (Auto) (0.00-0.50) K/uL Baso # (Auto) (0.00-0.20) K/uL Immature Gran # (Auto) (0.01-0.20) K/uL Neutrophils % (Manual) % Lymphocytes % (Manual) % Monocytes % (Manual) % Eosinophils % (Manual) % Metamyelocytes % (Man) % Myelocytes % (Man) % Neutrophils # (Manual) (1.40-6.50) K/uL Total Absolute Neuts (1.4-6.5) K/uL Lymphocytes # (Manual) (1.2-3.4) K/uL Total Abs Lymphocytes (1.2-3.4) K/uL Monocytes # (Manual) (0.11-0.59) K/uL Eosinophils # (Manual) (0-0.50) K/uL Metamyelocytes # (Man) (0-0) K/uL Myelocytes # (Manual) (0-0) K/uL RBC Morphology Sodium (136-145) mmol/L Potassium (3.5-5.1) mmol/L Chloride (98-107) mmol/L Carbon Dioxide (21-32) mmol/L Anion Gap (3-11) BUN (6-23) mg/dl Creatinine (0.6-1.4) mg/dl Est Cr Clr Drug Dosing ml/min Est GFR ( Amer) ml/min Est GFR (Non-Af Amer) ml/min BUN/Creatinine Ratio (10-20) Glucose (70-99(Fasting)) mg/dl POC Glucose 111 H 92 115 H (70-99) mg/dl Calcium (8.6-10.3) mg/dl Ionized Calcium (1.12-1.32) mmol/L Phosphorus (2.5-4.9) mg/dl Magnesium (1.7-2.4) mg/dl Total Bilirubin (0.2-1.0) mg/dl AST (13-39) U/L ALT (7-52) U/L Alkaline Phosphatase (34-104) U/L Total Protein (6.0-8.3) gm/dl Albumin (3.4-5.0) gm/dl Globulin (2.5-4.0) gm/dl Albumin/Globulin Ratio (0.9-2) 05/11/24 05/11/24 05/10/24 Range/Units 08:07 06:14 04:52 WBC 5.60 6.46 (4.8-10.8) K/ul RBC 3.81 L 4.23 L (4.70-6.10) M/uL Hgb 11.8 L 13.1 L (14.0-18.0) g/dl Hct 36.5 L 40.5 L (42.0-52.0) % MCV 95.8 95.7 (80.0-100.0) fL MCH 31.0 31.0 (25.0-34.0) pg MCHC 32.3 32.3 (32.0-36.0) g/dL RDW Std Deviation 50.5 H 49.3 H (36.4-46.3) fL RDW Coeff of Vinicio 14.5 14.2 (11.5-14.5) % Plt Count 197 202 (130-400) K/uL MPV 9.3 L 9.1 L (9.4-12.4) fL Immature Gran % (Auto) % Neut % (Auto) % Lymph % (Auto) % Millard % (Auto) % Eos % (Auto) % Baso % (Auto) % Neut # (Auto) (1.40-6.50) K/uL Lymph # (Auto) (1.20-3.40) K/uL Millard # (Auto) (0.11-0.59) K/uL Eos # (Auto) (0.00-0.50) K/uL Baso # (Auto) (0.00-0.20) K/uL Immature Gran # (Auto) (0.01-0.20) K/uL Neutrophils % (Manual) 81 76 % Lymphocytes % (Manual) 10 % Monocytes % (Manual) 3 % Eosinophils % (Manual) 2 % Metamyelocytes % (Man) 2 % Myelocytes % (Man) 2 % Neutrophils # (Manual) 4.54 4.91 (1.40-6.50) K/uL Total Absolute Neuts 4.54 4.91 (1.4-6.5) K/uL Lymphocytes # (Manual) 0.56 L 0.97 L (1.2-3.4) K/uL Total Abs Lymphocytes 0.56 L 0.97 L (1.2-3.4) K/uL Monocytes # (Manual) 0.17 0.26 (0.11-0.59) K/uL Eosinophils # (Manual) 0.11 (0-0.50) K/uL Metamyelocytes # (Man) 0.11 H 0.19 H (0-0) K/uL Myelocytes # (Manual) 0.11 H 0.13 H (0-0) K/uL RBC Morphology Unremarkable Sodium 140 141 (136-145) mmol/L Potassium 3.5 3.6 (3.5-5.1) mmol/L Chloride 106 105 (98-107) mmol/L Carbon Dioxide 29 29 (21-32) mmol/L Anion Gap 5 7 (3-11) BUN 17 17 (6-23) mg/dl Creatinine 0.71 0.85 (0.6-1.4) mg/dl Est Cr Clr Drug Dosing 167.5 141.3 ml/min Est GFR ( Amer) 119.9 111.3 ml/min Est GFR (Non-Af Amer) 103.4 96.0 ml/min BUN/Creatinine Ratio 23.9 H 20.0 (10-20) Glucose 103 H 80 (70-99(Fasting)) mg/dl POC Glucose 116 H (70-99) mg/dl Calcium 8.0 L 8.4 L (8.6-10.3) mg/dl Ionized Calcium (1.12-1.32) mmol/L Phosphorus (2.5-4.9) mg/dl Magnesium 2.1 2.1 (1.7-2.4) mg/dl Total Bilirubin (0.2-1.0) mg/dl AST (13-39) U/L ALT (7-52) U/L Alkaline Phosphatase (34-104) U/L Total Protein (6.0-8.3) gm/dl Albumin (3.4-5.0) gm/dl Globulin (2.5-4.0) gm/dl Albumin/Globulin Ratio (0.9-2) Diagnostic Findings Abdomen/Pelvis CT 05/06/24 15:29 CT SCAN OF THE ABDOMEN AND PELVIS WITH IV CONTRAST CLINICAL HISTORY: Lower abdominal pain. COMPARISON STUDY: No priors. TECHNIQUE: Following the IV administration of 120 cc of Optiray 320, CT scan of the abdomen and pelvis is performed from the lung bases to the proximal femora. Images are reviewed in the axial, sagittal, and coronal planes. IV contrast was administered without complication. A dose lowering technique was utilized adhering to the principles of ALARA. CT DOSE: 1676.25 mGy.cm FINDINGS: Lung bases: The heart is normal in size and without pericardial effusion. There is trace pneumomediastinum. The lung bases are clear negative dependent scarring/atelectasis. Liver: The contrast-enhanced liver is size and contour. Attenuation is diffusely diminished indicating steatosis. Fatty sparing is seen adjacent to the gallbladder fossa. There is no intrahepatic biliary ductal dilatation. The hepatic veins and portal veins are patent. Gallbladder: Unremarkable. Spleen: Normal in size and attenuation. Pancreas: Unremarkable. Adrenal glands: Unremarkable. Kidneys: The contrast enhanced kidneys are normal in size and without hydronephrosis. The kidneys enhance symmetrically. Abdominal vasculature: There is advanced atherosclerotic calcification and mild ectasia of the abdominal aorta. Bowel: There is moderate colonic fecal retention. No bowel obstruction is seen. There is moderate colonic diverticulosis without clear CT evidence of acute diverticulitis. There are thick-walled and inflamed loop of small bowel in the central lower abdomen with surrounding fluid seen on axial image #293. The appendix is well-visualized and normal. Peritoneum: There is a large volume of intraperitoneal free air. Interloop fluid is seen in the lower abdomen and there is trace free fluid in the pelvis. No organized fluid collection is seen to suggest abscess. There is evidence of prior ventral hernia repair. Lymphadenopathy: None. Pelvic viscera: The bladder, prostate, and seminal vesicles are normal as visualized. Skeletal structures: There is moderate lumbosacral spondylosis. Mild sclerotic changes seen in the sacroiliac joints. No lytic or blastic lesions are seen. IMPRESSION: 1. There is a large volume of intraperitoneal free air indicative of visceral perforation. Surgical evaluation is advised. 2. The site of perforation is not clearly delineated. 3. There are inflamed loops of small bowel in the central lower abdomen with surrounding fluid, as well as significant diverticular disease of the left colon. Although not definitive, one of these sites is favored as the site of perforation. 4. No bowel obstruction is seen. 5. No organized fluid collection is identified to suggest abscess. 6. Hepatic steatosis. 7. There is trace pneumomediastinum, likely related to intraperitoneal free air. 8. Additional findings as above. ACT 112: Negative or not required by law. Electronically signed by: Goyo Yun M.D. 05/06/2024 4:44 PM Chest X-Ray 05/09/24 06:00 SINGLE VIEW CHEST CLINICAL HISTORY: Respiratory failure FINDINGS: 2 AP, portable, semierect chest radiographs are compared to study dated 05/08/2024. Endotracheal and enteric tubes are unchanged in position. The heart is enlarged. The pulmonary vasculature is not congested. Chronic interstitial thickening is similar to previous. There is bibasilar scarring/atelectasis. No airspace consolidation or large pleural effusion is identified. No pneumothorax is seen. The bony thorax is grossly intact. IMPRESSION: 1. Stable lines and tubes. 2. Cardiomegaly without radiographic evidence of congestive failure. ACT 112: Negative or not required by law. Electronically signed by: Goyo Yun M.D. 05/09/2024 11:53 AM KUB X-Ray 05/13/24 07:00 KUB CLINICAL HISTORY: Bowel perforation with recent surgery. FINDINGS: 5 AP, portable, supine abdominal radiographs are compared to study dated 05/12/2024 and correlated with abdominal CT dated 05/06/2024. An enteric tube projects below the diaphragm over the stomach. An electronic device projects over the right lower quadrant. Skin clips are seen in the lower abdomen. There is likely a surgical drain in place. There is gaseous distention of the small bowel loops which measure up to 5 cm in diameter. Gas and stool is noted in the right colon. No evidence of intraperitoneal free air is seen on these supine images. There are no abnormal abdominal calcifications. Phleboliths are seen in the pelvis. The bony structures appear intact. IMPRESSION: 1. Postsurgical changes as above. 2. There is gaseous distention of the small bowel loops, which likely represents ileus in this postsurgical patient. Developing obstruction is considered less likely but could appear similar. Clinical correlation will be required. Electronically signed by: Goyo Yun M.D. 05/13/2024 10:28 AM PG Care Time/CCT Total # of Minutes Spent Total Time Spent with Patient: Total time spent is greater than 50% in coordination of care (as documented) at patient's floor/unit and/or counseling patient: I spent 105 minutes overall addressing this case: 15 min in medical data review/discussion with referring provider(s) and/or preparation for the visit 25 min in direct interaction with the patient/exam 30 min in Advance Care Planning/Goals of Care discussions as detailed above in note (must be >16min) 15 min in subsequent review and synthesis of assessment and plan 20 min communicating with other providers regarding the patient's case: gen surgery, nursing Prolonged Care Time Prolonged Care Time: Yes 75 min Advanced Care Planning 43196 Advanced Care Planning 30 [place] [address] SUB INP/OBS CARE 3/50MIN (25 - SIGNIFICANT, SEPARATELY IDENTIFIABLE ) Patient Type New Medical Decision Making High Complexity Diagnoses Cancer related pain G89.3 Confusion R41.0 Abdominal pain R10.9 Palliative care by specialist Z51.5 Glioblastoma C71.9 Discussion about advance care planning held with family member Z71.0 Additional Codes Advanced Care Planning - 00786 Advanced Care Planning 30 Min: 19127 Advanced Care Planning 30 Min ([id number]) Prolonged Care Time - Prolonged Care Time: Yes ([id number])
[2024-05-16] MEDS: 4.5GM X1 IV ONE (18:04)
[2024-05-16] MEDS: OLANZapine ZYDIS 5 MG ORALLY DIS. TAB PO SCH (21:11)
[2024-05-16] MEDS: PIPERACILLIN/TAZOBACTAM 4.5 GM/100 ML BAG IV SCH (21:15)
[2024-05-17 06:43] LABS: Basophils # (auto) 0.03 K/uL (0.00-0.20); Basophils % (auto) 0.4 %; Eosinophils # (auto) 0.03 K/uL (0.00-0.50); Eosinophils % (auto) 0.4 %; Hemoglobin 10.4 g/dl (14.0-18.0); Immature Granulocytes # (auto) 0.19 K/uL (0.01-0.20); Immature Granulocytes % (auto) 2.8 %; Lymphocytes # (auto) 1.03 K/uL (1.20-3.40); Lymphocytes % (auto) 14.9 %; Mean Corpuscular Hemoglobin 30.5 pg (25.0-34.0); Mean Corpuscular Hgb Conc 33.5 g/dL (32.0-36.0); Mean Corpuscular Volume 90.9 fL (80.0-100.0); Mean Platelet Volume 9.6 fL (9.4-12.4); Monocytes # (auto) 0.61 K/uL (0.11-0.59); Monocytes % (auto) 8.8 %; Neutrophils # (auto) 5.01 K/uL (1.40-6.50); Neutrophils % (auto) 72.7 %; Platelet Count 392 K/uL (130-400); RDW Standard Deviation 46.8 fL (36.4-46.3); Red Blood Count 3.41 M/uL (4.70-6.10)
[2024-05-17 07:27] LABS: Albumin Globulin Ratio 0.9 (0.9-2); Albumin Level 2.4 gm/dl (3.4-5.0); BUN Creatinine Ratio 11.3 (10-20); Bilirubin,Total 0.5 mg/dl (0.2-1.0); Calcium 7.2 mg/dl (8.6-10.3); Creatinine Clr Calc Pharmacy 194.3 ml/min; Est GFR (African American) 126.7 ml/min; Est GFR (Non-African American) 109.3 ml/min; Globulin 2.6 gm/dl (2.5-4.0); Magnesium 1.7 mg/dl (1.7-2.4); Phosphorus 2.7 mg/dl (2.5-4.9); Potassium 3.6 mmol/L (3.5-5.1)
--- NOTE | 2024-05-17 09:26 | Surgery Progress Note ---
Date of Service May 17, 2024 Assessment & Plan (1) S/P exploratory laparotomy: Plan: s/p exlap sigmoidectomy/appendectomy and take-back for washout and colostomy formation 05/08/24 He is awake but is confused OOB as able with assistance. PT/OT Surgical aldo drain removed gauze packed lightly in superior and inferior aspects of aldo site , abd and medipore tape tolerating diet , + ostomy function Appreciate medical team and palliative assisting us with patient Admission and Anticipated Discharge Date Admission Date: May 06, 2024 Supervising Physician Co-Signing Physician Notes Patient seen and examined, agree with above. Status post Oodm's procedure for perforated sigmoid colon in setting of glioblastoma. Ostomy functioning, tolerating full's. Still confused. Afebrile stable vitals. Ostomy patent and productive. Incision with dressing in place Aldo removed. Labs reviewed. Advance to low fiber as tolerated. Subjective pt with no complaints Review of Systems Gastrointestinal: + abdominal pain; no nausea and no vomit ing Physical Exam Constitutional: cooperative and comfortable; no acute distress Respiratory: normal respiratory effort and able to speak in complete sentences; no respiratory distress Cardiovascular: Rate/Rhythm: regular rate Gastrointestinal (Abdomen): Inspection/Auscultation: + abdomen distended and + abdominal surgical incision (joyce midline ) Percussion/Palpation: abdomen soft Neurologic: + confused Psychiatric: Orientation: oriented to person Results & Data Vital Signs (Past 12 Hours) Vital Signs Temp Pulse Pulse Resp BP BP Pulse Ox 05/17/24 08:42 05/17/24 07:53 99.5 F 79 18 120/73 96 05/17/24 07:00 81 05/17/24 03:15 99.5 F 75 18 145/76 H 95 05/16/24 23:42 05/16/24 23:39 77 05/16/24 23:31 98.8 F 73 18 113/62 96 O2 Del Method 05/17/24 08:42 Room Air 05/17/24 07:53 Room Air 05/17/24 07:00 05/17/24 03:15 Room Air 05/16/24 23:42 Room Air 05/16/24 23:39 05/16/24 23:31 Room Air PG Care Time/CCT Total # of Minutes Spent Total Time Spent with Patient: Total time spent is greater than 50% in coordination of care (as documented) at patient's floor/unit and/or counseling patient: Coding Level of Care Code 57255 Post Operative Follow-Up Diagnoses S/P exploratory laparotomy Z98.890
--- NOTE | 2024-05-17 13:21 | Hospitalist Progress Note ---
Date of Service May 17, 2024 Assessment & Plan (1) S/P exploratory laparotomy: Plan Remy Lujan is a 58y/o M with PMHx of dyslipidemia, ALEKSANDR on CPAP, CAD s/p stent placement, history of [place] [~2014], HTN, ischemic cardiomyopathy, bilateral Meniere disease, erythrocytosis, glioblastoma s/p craniotomy + resection admitted with pneumoperitoneum in the setting of sigmoid colon perforation. Hospitalist team consulted for post-operative medical management. Pneumoperitoneum Sigmoid Colon Perforation Ventilator Dependent respiratory failure s/p Exploratory Laparotomy x 2. On 05/06 and 05/08 -on 05/06 as a result of pneumoperitoneum -found to have a sigmoid perforation with purulent peritonitis and intra- abdominal abscess. Sigmoidectomy and appendectomy also performed. -transferred to ICU with open abdomen, intubated. -Patient then underwent re-exploration laparotomy on 05/08 for abdominal wash- out, removal of mesh, creation of end colostomy, and abdominal closure. Patient was extubated on 05/09, has been successfully off of mechanical vent ilation for over 24 hours. Currently on RA Abdomen Cx obtained from surgery grew pansensitive E coli, bacteroides and strep anginosus Blood Cx NGTD Was initially on IV Zosyn and IV Caspofungin. IV Caspofungin has since been d/c ID consulted on 05/12 for further recs to guide treatment and for recs for discharge. Recommended/stated the following: Completed 9 days postop abx, will discontinue per ID recommendations Further care per primary General Surgery team PT/OT, pending rehab placement Palliative following for pain management Small Bowel Obstruction Pt with episodes of N/V overnight 05/11 to 05/12 KUB ordered noting ileus vs SBO and moderate fecal retention Further recs per General Surgery Continue to monitor Diet per primary, full liquids at this time Hypocalcemia Hypokalemia Hypophosphatemia Likely in setting of above Replete as needed vit d level in am, plan to start po calicum supplement Glioblastoma S/P Craniotomy & Tumor Resection [11/10/2023] Patient was diagnosed with glioblastoma involving the left temporal occipital region and October 2023. Per chart review, completed chemo/radiation in early January 2024. Using an [employer] TTFfield device and on Lomustine 40mg orally at home. On Keppra 500mg po BID for seizure prophylaxis. Home pain regimen of MS Contin 60mg BID and MSIR 30mg q4h PRN Palliative Care was consulted for further inpatient pain med recs, appreciate recs HTN CAD s/p stent placement Hx of [place] On lisinopril 20mg, Toprol XL 25mg daily at home Not currently on statin due to intolerance, was exploring repatha per chart rev iew Oral amlodipine initiated 05/10 while in ICU, home lisinopril on hold at that time as well as toprol due to bradycardia during early admission Bradycardia currently resolved, -resume home toprol at 12.5mg daily in setting of CAD and Hx of [place] Consider resuming BUSTER (lisinopril) at lower dose Hx of statin intolerance Continue to monitor consider resestablishing with cards as OP contingent on goals Anxiety/Depression Home bupropion resumed 05/10, continue Home buspar on hold ALEKSANDR Continue CPAP HS. Diet: being advanced by primary team DVT Prophylaxis: SQ Heparin Code Status: DNR/DNI - Patient would not want any heroic measures in the event of a cardiac arrest per previous provider documentation. PCP: Luz Maria Gama, DO Thank you for this consultation. We will follow the patient with you during their hospital stay. You can reach a member of the [facility] Hospitalist Team 12/04 via the hospitalist role on tiger text. Admission and Anticipated Discharge Date Admission Date: May 06, 2024 Subjective NAEO Awoke patient from [facility], denied any pain or acute concerns Physical Exam Constitutional: WD/WN, vitals as above Respiratory: normal respiratory effort, lungs clear to auscultation Cardiovascular: RRR, no murmur, no edema Results & Data Results & Data Vital Signs (Past 12 Hours) Vital Signs Temp Pulse Pulse Resp BP BP Pulse Ox 05/17/24 11:56 37.7 C H 77 18 149/77 H 96 05/17/24 08:42 05/17/24 07:53 37.5 C 79 18 120/73 96 05/17/24 07:00 81 05/17/24 03:15 37.5 C 75 18 145/76 H 95 O2 Del Method 05/17/24 11:56 Room Air 05/17/24 08:42 Room Air 05/17/24 07:53 Room Air 05/17/24 07:00 05/17/24 03:15 Room Air Laboratory Results Short CBC 05/17/24 Range/Units 06:15 WBC 6.90 (4.8-10.8) K/ul Hgb 10.4 L (14.0-18.0) g/dl Hct 31.0 L (42.0-52.0) % Plt Count 392 (130-400) K/uL BMP 05/17/24 06:15 Sodium 139 Potassium 3.6 Chloride 109 H Carbon Dioxide 23 BUN 7 Creatinine 0.62 Glucose 78 Calcium 7.2 L Liver Function 05/17/24 Range/Units 06:15 Total Bilirubin 0.5 (0.2-1.0) mg/dl AST 15 (13-39) U/L ALT 14 (7-52) U/L Alkaline Phosphatase 47 (34-104) U/L Albumin 2.4 L (3.4-5.0) gm/dl Medications Administered Home Medications Medication Instructions Recorded Confirmed Last Taken ASPIRIN (ASPIRIN CHEWABLE) 81 mg PO DAILY ##0 09/03/17 11/05/23 Unknown Doxycycline (Monohydrate) 50 mg PO DAILY ##0 09/03/17 11/05/23 Unknown (Doxycycline) Metoprolol Succinate (TOPROL XL) 25 mg PO DAILY ##0 09/03/17 05/11/24 Unknown lisinopril 20 mg tablet 20 mg PO DAILY 11/05/23 05/11/24 Unknown bupropion HCl 150 mg tablet,12 hr 150 mg PO BID 05/06/24 05/06/24 Unknown sustained-release buspirone 10 mg tablet 10 mg PO TID 05/06/24 05/06/24 Unknown morphine 60 mg tablet,extended 60 mg PO AMHS 05/06/24 05/06/24 Unknown release nitrofurantoin 100 mg PO AMHS 05/06/24 05/06/24 Unknown monohydrate/macrocrystals 100 mg capsule Active Medications Generic Name Dose Route Start Last Admin Trade Name Freq PRN Reason Stop Dose Admin Amlodipine Besylate 10 mg 05/11/24 09:00 05/17/24 08:25 Amlodipine Besylate 5 Mg Tab PO 06/10/24 08:59 10 mg QAM OSMANY Administration Bupropion HCl 150 mg 05/10/24 21:00 05/17/24 08:24 Bupropion Sr 150 Mg Tabcr PO 06/09/24 20:59 150 mg BID OSMANY Administration Calcium Carbonate 1,250 mg 05/16/24 09:00 05/17/24 08:24 Calcium Carbonate 1,250 Mg/5 Ml Udc PO 06/15/24 08:59 1,250 mg BID OSMANY Administration Heparin Sodium (Porcine) 5,000 units 05/07/24 06:00 05/17/24 14:25 Heparin Sod 5,000 Unit/0.5 Ml Vial SQ 06/06/24 05:59 5,000 units Q8 OSMANY Administration Potassium Chloride/Sodium Chloride 20 meq in 1,000 mls @ 80 mls/hr 05/13/24 08:30 05/17/24 12:11 Normal Saline W/20 Meq Kcl IV 06/12/24 08:29 80 mls/hr .[id number] OSMANY Administration Protocol Lactobacillus Acidophilus 1,250 mg 05/11/24 09:00 05/17/24 08:25 Advanced Probiotic 625 Mg Capsule PO 06/10/24 08:59 1,250 mg DAILY OSMANY Administration Levetiracetam 500 mg 05/10/24 21:00 05/17/24 08:24 Levetiracetam 500 Mg Tab PO 06/09/24 20:59 500 mg BID OSMANY Administration Metoprolol Succinate 12.5 mg 05/12/24 09:00 05/17/24 08:26 Metoprolol Succ 25mg Ext Rel Tab PO 06/11/24 08:59 12.5 mg QAM OSMANY Administration Morphine Sulfate 2 mg 05/09/24 10:36 05/13/24 12:21 Morphine Sulfate 2 Mg/Ml Carp IV 05/23/24 10:35 2 mg Q2H PRN Administration moderate to severe Pain Morphine Sulfate 3 mg 05/10/24 10:30 05/17/24 14:34 Morphine Sulfate 4 Mg/Ml 1 Ml Carp\Vial IV 05/24/24 10:29 3 mg Q4H OSMANY Administration Olanzapine 2.5 mg 05/16/24 21:00 05/17/24 08:24 Olanzapine Zydis 5 Mg Orally Dis. Tab PO 06/15/24 20:59 2.5 mg BID OSMANY Administration Ondansetron HCl 4 mg 05/12/24 08:32 05/15/24 10:16 Ondansetron Inj 2 Mg/Ml 2 Ml Vial IV 06/11/24 08:31 4 mg Q4H PRN Administration Nausea Pantoprazole Sodium 40 mg 05/11/24 09:00 05/17/24 08:23 Pantoprazole 40 Mg Tab PO 06/10/24 08:59 40 mg DAILY OSMANY Administration Potassium Phosphate 2 tab 05/16/24 09:00 05/17/24 14:25 Pot Phosphate Monobasic W/ Sod Tab PO 06/15/24 08:59 2 tab QID OSMANY Administration Sennosides 8.8 mg 05/11/24 09:00 05/17/24 08:25 Sennosides 8.8 Mg/5 Ml Udc PO 06/10/24 08:59 8.8 mg QAM OSMANY Administration
[2024-05-18 07:33] LABS: Albumin Globulin Ratio 0.9 (0.9-2); Albumin Level 2.4 gm/dl (3.4-5.0); BUN Creatinine Ratio 10.3 (10-20); Bilirubin,Total 0.5 mg/dl (0.2-1.0); Calcium 7.1 mg/dl (8.6-10.3); Creatinine Clr Calc Pharmacy 207.9 ml/min; Est GFR (African American) 130.3 ml/min; Est GFR (Non-African American) 112.4 ml/min; Globulin 2.7 gm/dl (2.5-4.0); Magnesium 1.7 mg/dl (1.7-2.4); Phosphorus 2.3 mg/dl (2.5-4.9); Potassium 3.4 mmol/L (3.5-5.1); Total Protein 5.1 gm/dl (6.0-8.3)
[2024-05-18 08:06] LABS: Folate (Folic Acid),Ser orPlas 11.56 ng/ml (>5.38)
[2024-05-18] MEDS ORDERED: POTASSIUM PHOS 3 MMOL/1 ML INFUSION IV STA (08:28)
--- NOTE | 2024-05-18 08:32 | Hospitalist Progress Note ---
Date of Service May 18, 2024 Assessment & Plan (1) S/P exploratory laparotomy: Plan Remy Lujan is a 58y/o M with PMHx of dyslipidemia, ALEKSANDR on CPAP, CAD s/p stent placement, history of [place] [~2014], HTN, ischemic cardiomyopathy, bilateral Meniere disease, erythrocytosis, glioblastoma s/p craniotomy + resection admitted with pneumoperitoneum in the setting of sigmoid colon perforation. Hospitalist team consulted for post-operative medical management. #Pneumoperitoneum #Sigmoid Colon Perforation #Ventilator Dependent respiratory failure *resolved s/p Exploratory Laparotomy x 2. On 05/06 and 05/08 -on 05/06 as a result of pneumoperitoneum -found to have a sigmoid perforation with purulent peritonitis and intra- abdominal abscess. Sigmoidectomy and appendectomy also performed. -transferred to ICU with open abdomen, intubated. -Patient then underwent re-exploration laparotomy on 05/08 for abdominal wash- out, removal of mesh, creation of end colostomy, and abdominal closure. Patient was extubated on 05/09, Abdomen Cx obtained from surgery grew pansensitive E coli, bacteroides and strep anginosus Blood Cx NGTD ID consulted on 05/12 for further recs to guide treatment and for recs for discharge. Recommended/stated the following: Completed 9 days postop abx, discontinued per ID recommendations Further care per primary General Surgery team PT/OT, pending rehab placement Palliative following for pain management #Small Bowel Obstruction resolved Pt with episodes of N/V overnight 05/11 to 05/12 KUB ordered noting ileus vs SBO and moderate fecal retention Further recs per General Surgery Continue to monitor Diet per primary, diet advanced per primary #Hypocalcemia #Hypokalemia #Hypophosphatemia Likely in setting of above Replete as needed vitamin d and ca replacement ordered #Glioblastoma #S/P Craniotomy & Tumor Resection [11/10/2023] Patient was diagnosed with glioblastoma involving the left temporal occipital region and October 2023. Per chart review, completed chemo/radiation in early January 2024. Using an [employer] TTFfield device and on Lomustine 40mg orally at home. On Keppra 500mg po BID for seizure prophylaxis. Home pain regimen of MS Contin 60mg BID and MSIR 30mg q4h PRN Palliative Care was consulted for further inpatient pain med recs, appreciate recs #HTN #CAD s/p stent placement #Hx of [place] On lisinopril 20mg, Toprol XL 25mg daily at home Not currently on statin due to intolerance, was exploring repatha per chart review Oral amlodipine initiated 05/10 while in ICU, home lisinopril on hold at that time as well as toprol due to bradycardia during early admission Bradycardia currently resolved, -resume home toprol at 12.5mg daily in setting of CAD and Hx of [place] Resume lisinopril 2.5mg daily Continue to monitor consider resestablishing with cards as OP contingent on goals #Anxiety/Depression Home bupropion resumed 05/10, continue Home buspar on hold #ALEKSANDR Continue CPAP HS. Diet: being advanced by primary team DVT Prophylaxis: SQ Heparin Code Status: DNR/DNI - Patient would not want any heroic measures in the event of a cardiac arrest per previous provider documentation. PCP: Luz Maria Gama, DO Thank you for this consultation. We will follow the patient with you during their hospital stay. You can reach a member of the [facility] Hospitalist Team 12/04 via the hospitalist role on tiger text. Admission and Anticipated Discharge Date Admission Date: May 06, 2024 Subjective NAEO Patient alert to self. Denies any acute concerns, but unable to hold sustained conversation Denies any acute concerns Physical Exam Constitutional: WD/WN, vitals as above Respiratory: normal respiratory effort, lungs clear to auscultation Cardiovascular: RRR, no murmur, no edema Gastrointestinal (Abdomen): abd pad in place, ostomy with pink mucosa Results & Data Results & Data Vital Signs (Past 12 Hours) Vital Signs Temp Pulse Pulse Resp BP Pulse Ox O2 Del Method 05/18/24 08:12 37.0 C 85 18 146/83 H 95 Room Air 05/18/24 04:00 36.8 C 91 H 18 137/80 95 Room Air 05/18/24 00:48 84 05/17/24 23:30 37.1 C 88 18 150/79 H 94 Room Air 05/17/24 22:54 Room Air Laboratory Results BMP 05/18/24 06:14 Sodium 140 Potassium 3.4 L Chloride 107 Carbon Dioxide 23 BUN 6 Creatinine 0.58 L Glucose 74 Calcium 7.1 L Liver Function 05/18/24 Range/Units 06:14 Total Bilirubin 0.5 (0.2-1.0) mg/dl AST 17 (13-39) U/L ALT 15 (7-52) U/L Alkaline Phosphatase 48 (34-104) U/L Albumin 2.4 L (3.4-5.0) gm/dl Medications Administered Home Medications Medication Instructions Recorded Confirmed Last Taken ASPIRIN (ASPIRIN CHEWABLE) 81 mg PO DAILY ##0 09/03/17 11/05/23 Unknown Doxycycline (Monohydrate) 50 mg PO DAILY ##0 09/03/17 11/05/23 Unknown (Doxycycline) Metoprolol Succinate (TOPROL XL) 25 mg PO DAILY ##0 09/03/17 05/11/24 Unknown lisinopril 20 mg tablet 20 mg PO DAILY 11/05/23 05/11/24 Unknown bupropion HCl 150 mg tablet,12 hr 150 mg PO BID 05/06/24 05/06/24 Unknown sustained-release buspirone 10 mg tablet 10 mg PO TID 05/06/24 05/06/24 Unknown morphine 60 mg tablet,extended 60 mg PO AMHS 05/06/24 05/06/24 Unknown release nitrofurantoin 100 mg PO AMHS 05/06/24 05/06/24 Unknown monohydrate/macrocrystals 100 mg capsule Active Medications Generic Name Dose Route Start Last Admin Trade Name Cheryl PRN Reason Stop Dose Admin Amlodipine Besylate 10 mg 05/11/24 09:00 05/17/24 08:25 Amlodipine Besylate 5 Mg Tab PO 06/10/24 08:59 10 mg QAM OSMANY Administration Bupropion HCl 150 mg 05/10/24 21:00 05/17/24 21:04 Bupropion Sr 150 Mg Tabcr PO 06/09/24 20:59 150 mg BID OSMANY Administration Calcium Carbonate 1,250 mg 05/16/24 09:00 05/17/24 21:04 Calcium Carbonate 1,250 Mg/5 Ml Udc PO 06/15/24 08:59 1,250 mg BID OSMANY Administration Heparin Sodium (Porcine) 5,000 units 05/07/24 06:00 05/18/24 05:41 Heparin Sod 5,000 Unit/0.5 Ml Vial SQ 06/06/24 05:59 5,000 units Q8 OSMANY Administration Lactobacillus Acidophilus 1,250 mg 05/11/24 09:00 05/17/24 08:25 Advanced Probiotic 625 Mg Capsule PO 06/10/24 08:59 1,250 mg DAILY OSMANY Administration Levetiracetam 500 mg 05/10/24 21:00 05/17/24 21:04 Levetiracetam 500 Mg Tab PO 06/09/24 20:59 500 mg BID OSMANY Administration Metoprolol Succinate 12.5 mg 05/12/24 09:00 05/17/24 08:26 Metoprolol Succ 25mg Ext Rel Tab PO 06/11/24 08:59 12.5 mg QAM OSMANY Administration Morphine Sulfate 2 mg 05/09/24 10:36 05/13/24 12:21 Morphine Sulfate 2 Mg/Ml Carp IV 05/23/24 10:35 2 mg Q2H PRN Administration moderate to severe Pain Morphine Sulfate 3 mg 05/10/24 10:30 05/18/24 05:41 Morphine Sulfate 4 Mg/Ml 1 Ml Carp\Vial IV 05/24/24 10:29 3 mg Q4H OSMANY Administration Olanzapine 2.5 mg 05/16/24 21:00 05/17/24 21:05 Olanzapine Zydis 5 Mg Orally Dis. Tab PO 06/15/24 20:59 2.5 mg BID OSMANY Administration Ondansetron HCl 4 mg 05/12/24 08:32 05/15/24 10:16 Ondansetron Inj 2 Mg/Ml 2 Ml Vial IV 06/11/24 08:31 4 mg Q4H PRN Administration Nausea Pantoprazole Sodium 40 mg 05/11/24 09:00 05/17/24 08:23 Pantoprazole 40 Mg Tab PO 06/10/24 08:59 40 mg DAILY OSMANY Administration Sennosides 8.8 mg 05/11/24 09:00 05/17/24 08:25 Sennosides 8.8 Mg/5 Ml Udc PO 06/10/24 08:59 8.8 mg QAM OSMANY Administration
[2024-05-18] MEDS: POTASSIUM PHOSPHATE 21 MMOL in SODIUM CHLORIDE 0.9% 500 ML IV ONE (09:10)
[2024-05-18] MEDS: POTASSIUM CHLORIDE 20 MEQ/15 ML UDC PO STA (09:10)
[2024-05-18] MEDS: lisinopril 2.5 MG TAB PO SCH (09:10)
[2024-05-18] MEDS: CALCIUM 600MG + VIT D 400 IU TAB PO SCH (11:05)
[2024-05-18 16:01] LABS: Appearance Urine Clear (Clear); Bacteria Urine Automated None Seen (None Seen); Bilirubin Urine Negative (Negative); Blood Urine Negative (Negative); Cast Urine Automated 0-2 /lpf (0-2); Color Urine Yellow; Epithelial Cell Urine Auto 0-2 /hpf (0-2); Glucose Urine UA Negative (Negative); Ketones Urine 3+ (Negative); Leukocyte Esterase Urine Negative (Negative); Nitrite Urine Negative (Negative); Protein Urine Trace (Negative); Specific Gravity Urine 1.016 (1.000-1.030); Urobilinogen Urine Positive (Negative); WBC Urine Automated 0-5 /hpf (0-5); pH Urine 6.5 (4.5-7.5)
--- NOTE | 2024-05-18 16:21 | Surgery Progress Note ---
Date of Service May 18, 2024 Assessment & Plan (1) S/P exploratory laparotomy: Plan: s/p exlap sigmoidectomy/appendectomy and take-back for washout and colostomy formation 05/08/24 He is awake but is confused OOB as able with assistance. PT/OT [place] to midline abdomen tolerating diet , + ostomy function Appreciate medical team and palliative assisting us with patient Spoke with case management today and dispo planning is still pending Pt seen and examined with Dr. Gan Admission and Anticipated Discharge Date Admission Date: May 06, 2024 Supervising Physician Co-Signing Physician Notes Patient seen and examined, agree with above. Status post Odom's procedure. He has return of bowel function. He is still confused and weak. Abdominal exam benign. Awaiting placement. If surgical issues have resolved, we will discuss possible transfer to medicine team. Subjective Pt with no complaints today Review of Systems Constitutional: no fever and no chills Respiratory: no dyspnea Gastrointestinal: + abdominal pain; no nausea and no vomit ing Physical Exam Constitutional: cooperative and comfortable; no acute distress Respiratory: normal respiratory effort and able to speak in complete sentences; no respiratory distress Cardiovascular: Rate/Rhythm: regular rate Gastrointestinal (Abdomen): Inspection/Auscultation: + abdomen distended and + abdominal surgical incision (joyce midline ) Percussion/Palpation: abdomen soft Neurologic: + confused Psychiatric: Orientation: oriented to person Results & Data Vital Signs (Past 12 Hours) Vital Signs Temp Pulse Pulse Resp BP Pulse Ox O2 Del Method 05/18/24 12:14 98.2 F 87 18 134/77 96 Room Air 05/18/24 11:24 Room Air 05/18/24 09:52 88 05/18/24 08:12 98.6 F 85 18 146/83 H 95 Room Air PG Care Time/CCT Total # of Minutes Spent Total Time Spent with Patient: Total time spent is greater than 50% in coordination of care (as documented) at patient's floor/unit and/or counseling patient: Coding Level of Care Code 40298 Post Operative Follow-Up Diagnoses S/P exploratory laparotomy Z98.890
[2024-05-18] MEDS: ERGOCALCIFEROL 1250 MCG (50,000 UNITS) CAP PO SCH (17:58)
[2024-05-19 07:30] LABS: BUN Creatinine Ratio 12.5 (10-20); Calcium 7.3 mg/dl (8.6-10.3); Creatinine Clr Calc Pharmacy 215.3 ml/min; Est GFR (African American) 132.1 ml/min; Potassium 3.7 mmol/L (3.5-5.1)
[2024-05-19] MEDS ORDERED: POTASSIUM PHOS 3 MMOL/1 ML INFUSION IV STA (07:36)
[2024-05-19 07:42] LABS: Basophils # (auto) 0.03 K/uL (0.00-0.20); Basophils % (auto) 0.4 %; Eosinophils # (auto) 0.05 K/uL (0.00-0.50); Eosinophils % (auto) 0.7 %; Hematocrit (blood only) 31.6 % (42.0-52.0); Hemoglobin 10.5 g/dl (14.0-18.0); Immature Granulocytes # (auto) 0.27 K/uL (0.01-0.20); Lymphocytes # (auto) 1.11 K/uL (1.20-3.40); Lymphocytes % (auto) 16.5 %; Mean Corpuscular Hemoglobin 30.4 pg (25.0-34.0); Mean Corpuscular Hgb Conc 33.2 g/dL (32.0-36.0); Mean Corpuscular Volume 91.6 fL (80.0-100.0); Mean Platelet Volume 9.8 fL (9.4-12.4); Monocytes % (auto) 13.4 %; Neutrophils # (auto) 4.37 K/uL (1.40-6.50); Platelet Count 401 K/uL (130-400); RDW Coefficient of Variation 14.3 % (11.5-14.5); RDW Standard Deviation 48.2 fL (36.4-46.3); Red Blood Count 3.45 M/uL (4.70-6.10); White Blood Count 6.73 K/ul (4.8-10.8)
[2024-05-19] MEDS: POTASSIUM PHOSPHATE 24 MMOL in SODIUM CHLORIDE 0.9% 500 ML IV ONE (09:14)
--- NOTE | 2024-05-19 12:04 | XRay Report ---
XR chest 1V portable HISTORY: aspiration COMPARISON: Chest 05/09/2024. FINDINGS: There are low lung volumes. The cardiac silhouette remains enlarged. There is mild central pulmonary vascular congestion without overt edema. No pneumothorax. Stable blunting of the left later al costophrenic sulcus. A few left basilar linear densities persist. No new focal lung consolidations identified. IMPRESSION: 1. Cardiomegaly and mild pulmonary vascular congestion. 2. A few left basilar linear densities persist. This favors subsegmental atelectasis or scarring. A l ow-grade pneumonitis is not excluded. ACT 112: Negative or not required by law. Electronically signed by: Bobby Penn M.D. 05/19/2024 12:03 PM
--- NOTE | 2024-05-19 13:56 | Palliative Care Progress Note ---
Date of Service May 19, 2024 Assessment & Plan (1) Cancer related pain: Plan: no change to current regimen - cannot take PO, will remain on IV MS (2) Confusion: Plan: waxing and waning since ICU, overall declining (3) Discussion about advance care planning held with family member: Plan: 45min ACP face to face with Candi, abdibethany bass and GLORIAShailesh He is steadily worsening and she acknowledges he has not been making the recovery they had hoped for In a moment of lucidity earlier this morning with her, she shares that he looked at her and said "It is going to be the time for me to go, I'm not getting out of this one." She reaffirms they had been in conversations about ceasing cancer treatments which had not substantially improved PS or QOL. She adds that he was always very clear that if he is worsening he wants to have Comfort and QOL but no artificial or invasive measures to prolong dying. Candi notes that as things stand now, Wesley would need a snf and [facility] care. She notes this would not be living to him. He is not recovering his cognition and he had always told Candi that as his cancer progressed and began to take more of his cognitive capacity and personhood away from him, he would not want to live like that and he would desire a REHAB AIDE plan of care. She has to travel to visit her daughter for a week beginning tomorrow but she is firm in wanting to honor his wishes. She would like to await results of CT head but if no treatable findings then she wants transition to REHAB AIDE and a GIP eval, then see how he does through the weekend. Allow permissive aspiration/PO for comfort and pleasure. No swallow eval, no feeding tubes, no invasive or artificial measures. (4) Abdominal pain: (5) Palliative care by specialist: (6) Glioblastoma: Plan As above D/w Dr Finnegan Likely plan transition to REHAB AIDE later today Thank you for allowing us to participate in the ongoing care of this patient. Please page with any additional concerns. Selma Gonzalez DNP Director, Palliative Medicine Admission and Anticipated Discharge Date Admission Date: May 06, 2024 Subjective Worsening and poorly controlled agitation with worsening confusion , just a few unpredictable minutes of lucidity during an earlier morning moment of clarity he told Candi he does not believe he will make it out of here his urine studies unremarkable worsening swallow impairment, not taking PO, not clearing his secretions increasing gurgling and some dyspnea that is not relieved with scheduled MS IV more restless, not improving with zyprexa mara remains on scheduled MS for pain mgt, tells me his abd pain is back and worsening at times, not relieved by scheduled MS overall in a progressively worsening state of decline PS declining CXR without acute findings, CT head pending Review of Systems Review of Systems: Unobtainable due to cognitive status Physical Exam Constitutional: well nourished, + ill appearing (chronically ill, frail, weak) and cooperative Eyes: PERRL ENMT: Mouth: + muffled voice posterior pharyngeal secretions with gurgling, ineffective throat clearing Neck: short neck, no stridor Respiratory: resp effort WNL at rest no conversational dyspnea Lungs diminished/? due to habitus no overt wheezing Cardiovascular: s1s2 Gastrointestinal (Abdomen): mid line incision/dressing intact Ostomy left, +beefy red appearance BS diminished, mild generalized TTP Musculoskeletal: gen weakness Moving BUE and BLE Skin: pale mottling across abdomen, BUE, cool to touch warmer BLE mild edema BLE and BUE Neurologic: confused at times rambling/off topic easily word location difficulty noted [facility] + Results & Data Vital Signs (Past 12 Hours) Vital Signs Temp Pulse Resp BP Pulse Ox O2 Del Method 05/19/24 12:42 Room Air 05/19/24 11:01 36.7 C 86 18 142/77 H 94 Room Air 05/19/24 08:12 37.1 C 90 18 147/76 H 94 Room Air Laboratory Results Abnormal lab results 05/18/24 05/19/24 05/19/24 Range/Units Unknown 06:27 06:31 RBC 3.45 L (4.70-6.10) M/uL Hgb 10.5 L (14.0-18.0) g/dl Hct 31.6 L (42.0-52.0) % RDW Std Deviation 48.2 H (36.4-46.3) fL Plt Count 401 H (130-400) K/uL Lymph # (Auto) 1.11 L (1.20-3.40) K/uL [place] # (Auto) 0.90 H (0.11-0.59) K/uL Immature Gran # (Auto) 0.27 H (0.01-0.20) K/uL Creatinine 0.56 L (0.6-1.4) mg/dl Calcium 7.3 L (8.6-10.3) mg/dl Phosphorus 2.0 L (2.5-4.9) mg/dl Urine Protein Trace H (Negative) Urine Ketones 3+ H (Negative) Urine Urobilinogen Positive H (Negative) Urine RBC (Auto) 3-5 H (0-2) /hpf Diagnostic Findings Abdomen/Pelvis CT 05/06/24 15:29 CT SCAN OF THE ABDOMEN AND PELVIS WITH IV CONTRAST CLINICAL HISTORY: Lower abdominal pain. COMPARISON STUDY: No priors. TECHNIQUE: Following the IV administration of 120 cc of Optiray 320, CT scan of the abdomen and pelvis is performed from the lung bases to the proximal femora. Images are reviewed in the axial, sagittal, and coronal planes. IV contrast was administered without complication. A dose lowering technique was utilized adhering to the principles of ALARA. CT DOSE: 1676.25 mGy.cm FINDINGS: Lung bases: The heart is normal in size and without pericardial effusion. There is trace pneumomediastinum. The lung bases are clear negative dependent scarring/atelectasis. Liver: The contrast-enhanced liver is size and contour. Attenuation is diffusely diminished indicating steatosis. Fatty sparing is seen adjacent to the gallbladder fossa. There is no intrahepatic biliary ductal dilatation. The hepatic veins and portal veins are patent. Gallbladder: Unremarkable. Spleen: Normal in size and attenuation. Pancreas: Unremarkable. Adrenal glands: Unremarkable. Kidneys: The contrast enhanced kidneys are normal in size and without hydronephrosis. The kidneys enhance symmetrically. Abdominal vasculature: There is advanced atherosclerotic calcification and mild ectasia of the abdominal aorta. Bowel: There is moderate colonic fecal retention. No bowel obstruction is seen. There is moderate colonic diverticulosis without clear CT evidence of acute diverticulitis. There are thick-walled and inflamed loop of small bowel in the central lower abdomen with surrounding fluid seen on axial image #293. The appendix is well-visualized and normal. Peritoneum: There is a large volume of intraperitoneal free air. Interloop fluid is seen in the lower abdomen and there is trace free fluid in the pelvis. No organized fluid collection is seen to suggest abscess. There is evidence of prior ventral hernia repair. Lymphadenopathy: None. Pelvic viscera: The bladder, prostate, and seminal vesicles are normal as visualized. Skeletal structures: There is moderate lumbosacral spondylosis. Mild sclerotic changes seen in the sacroiliac joints. No lytic or blastic lesions are seen. IMPRESSION: 1. There is a large volume of intraperitoneal free air indicative of visceral perforation. Surgical evaluation is advised. 2. The site of perforation is not clearly delineated. 3. There are inflamed loops of small bowel in the central lower abdomen with surrounding fluid, as well as significant diverticular disease of the left colon. Although not definitive, one of these sites is favored as the site of perforation. 4. No bowel obstruction is seen. 5. No organized fluid collection is identified to suggest abscess. 6. Hepatic steatosis. 7. There is trace pneumomediastinum, likely related to intraperitoneal free air. 8. Additional findings as above. ACT 112: Negative or not required by law. Electronically signed by: Goyo Yun M.D. 05/06/2024 4:44 PM KUB X-Ray 05/13/24 07:00 KUB CLINICAL HISTORY: Bowel perforation with recent surgery. FINDINGS: 5 AP, portable, supine abdominal radiographs are compared to study dated 05/12/2024 and correlated with abdominal CT dated 05/06/2024. An enteric tube projects below the diaphragm over the stomach. An electronic device projects over the right lower quadrant. Skin clips are seen in the lower abdomen. There is likely a surgical drain in place. There is gaseous distention of the small bowel loops which measure up to 5 cm in diameter. Gas and stool is noted in the right colon. No evidence of intraperitoneal free air is seen on these supine images. There are no abnormal abdominal calcifications. Phleboliths are seen in the pelvis. The bony structures appear intact. IMPRESSION: 1. Postsurgical changes as above. 2. There is gaseous distention of the small bowel loops, which likely represents ileus in this postsurgical patient. Developing obstruction is considered less likely but could appear similar. Clinical correlation will be required. Electronically signed by: Goyo Yun M.D. 05/13/2024 10:28 AM Chest X-Ray 05/19/24 09:40 XR chest 1V portable HISTORY: aspiration COMPARISON: Chest 05/09/2024. FINDINGS: There are low lung volumes. The cardiac silhouette remains enlarged. There is mild central pulmonary vascular congestion without overt edema. No pneumothorax. Stable blunting of the left lateral costophrenic sulcus. A few left basilar linear densities persist. No new focal lung consolidations identified. IMPRESSION: 1. Cardiomegaly and mild pulmonary vascular congestion. 2. A few left basilar linear densities persist. This favors subsegmental atelectasis or scarring. A low-grade pneumonitis is not excluded. ACT 112: Negative or not required by law. Electronically signed by: Bobby Penn M.D. 05/19/2024 12:03 PM PG Care Time/CCT Total # of Minutes Spent Total Time Spent with Patient: Total time spent is greater than 50% in coordination of care (as documented) at patient's floor/unit and/or counseling patient: I spent 110 minutes overall addressing this case: 15 min in medical data review/discussion with referring provider(s) and/or preparation for the visit 20 min in direct interaction with the patient/exam 45 min in Advance Care Planning/Goals of Care discussions as detailed above in note (must be >16min) 15 min in subsequent review and synthesis of assessment and plan 15 min communicating with other providers regarding the patient's case: Prolonged Care Time Prolonged Care Time: Yes Total Prolonged Care Time: 15 Advanced Care Planning 27012 Advanced Care Planning 30 Min 18607 Advanced Care Planning Additional 30 Min [place] [address] SUB INP/OBS CARE 3/50MIN (25 - SIGNIFICANT, SEPARATELY IDENTIFIABLE ) Patient Type Established Diagnoses Cancer related pain G89.3 Confusion R41.0 Discussion about advance care planning held with family member Z71.0 Abdominal pain R10.9 Palliative care by specialist Z51.5 Glioblastoma C71.9 Additional Codes Prolonged Care Time - Prolonged Care Time: Yes ([id number]) Advanced Care Planning - 86590 Advanced Care Planning 30 Min: 48448 Advanced Care Planning 30 Min ([id number]) Advanced Care Planning - 41856 Advanced Care Planning Additional 30 Min: 80020 Advanced Care Planning Additional 30 Min ([id number])
[2024-05-19] MEDS ORDERED: LORazepam 2 MG/1 ML VIAL IV PRN (14:09)
--- NOTE | 2024-05-19 14:35 | Surgery Progress Note ---
Date of Service May 19, 2024 Assessment & Plan (1) S/P exploratory laparotomy: Plan: s/p exlap sigmoidectomy/appendectomy and take-back for washout and colostomy formation 05/08/24 He is awake but is confused OOB as able with assistance. PT/OT Joyce to midline abdomen will likely remove 05/23/24 dressing changed , gauze packed in inferiour aspect of incision, gauze and abd pad , medipore tape change daily + ostomy function Appreciate medical team accepting to take over as primary service [facility] surgery covering the weekend and holiday please reach out with questions/concerns Pt seen and examined with Dr. Gan Admission and Anticipated Discharge Date Admission Date: May 06, 2024 Supervising Physician Co-Signing Physician Notes Patient seen and examined, agree with above. Status post Odom's procedure. He has return of bowel function. He is still confused and weak. Abdominal exam benign, ostomy functioning. Awaiting placement. Patient being transferred to the care of the medicine service while he awaits placement and they are caring for his ongoing medical needs. Surgery will follow peripherally, Dr. Barroso covering over the weekend. Likely joyce out on Wednesday Subjective no complaints Physical Exam Constitutional: cooperative and comfortable Respiratory: no respiratory distress Cardiovascular: Rate/Rhythm: regular rate Gastrointestinal (Abdomen): Inspection/Auscultation: + abdominal surgical incision Percussion/Palpation: abdomen soft Results & Data Vital Signs (Past 12 Hours) Vital Signs Temp Pulse Resp BP Pulse Ox O2 Del Method 05/19/24 12:42 Room Air 05/19/24 11:01 98.1 F 86 18 142/77 H 94 Room Air 05/19/24 08:12 98.8 F 90 18 147/76 H 94 Room Air PG Care Time/CCT Total # of Minutes Spent Total Time Spent with Patient: Total time spent is greater than 50% in coordination of care (as documented) at patient's floor/unit and/or counseling patient: Coding Level of Care Code 82013 Post Operative Follow-Up Diagnoses S/P exploratory laparotomy Z98.890
--- NOTE | 2024-05-19 14:56 | CT Scan Report ---
CT SCAN OF THE BRAIN WITHOUT IV CONTRAST CLINICAL HISTORY: Change in mental status. COMPARISON STUDY: MRI of the brain dated 11/05/2023. TECHNIQUE: Unenhanced axial CT scan of the brain is performed from the vertex to the skull base. A d ose lowering technique was utilized adhering to the principles of ALARA. CT DOSE: 625.8 mGy.cm FINDINGS: Brain parenchyma: There is left temporal encephalomalacia at the site of prior mass resection. There is no hemorrhage, mass effect, or evidence of acute territorial ischemia by CT criteria. Ramirez-white m atter differentiation is preserved. No extra-axial fluid collection is seen. Ventricles, sulci, cisterns: Normal in configuration. Intracranial vasculature: The visualized intracranial vasculature at the skull base is normal in appe arance. Calvarium: There is postsurgical change from left-sided craniotomy. No destructive calvarial lesion i s seen. Sinuses and mastoids: There is mild mucosal thickening within the maxillary antra. Trace mucosal thic kening is seen within the frontal and sphenoid sinuses. The mastoid air cells are well pneumatized. C erumen is noted in the external artery canals. Orbits: The bony orbits are grossly intact. IMPRESSION: 1. There is no hemorrhage, mass effect, or evidence of acute territorial ischemia by CT criteria. 2. There is postsurgical change and left temporal encephalomalacia consistent with interval mass rese ction. ACT 112: Negative or not required by law. Electronically signed by: Goyo Yun M.D. 05/19/2024 2:55 PM
--- NOTE | 2024-05-19 16:53 | Hospitalist Progress Note ---
Date of Service May 19, 2024 Assessment & Plan (1) S/P exploratory laparotomy: Plan Remy Lujan is a 58y/o M with PMHx of dyslipidemia, ALEKSANDR on CPAP, CAD s/p stent placement, history of CO [~2014], HTN, ischemic cardiomyopathy, bilateral Meniere disease, erythrocytosis, glioblastoma s/p craniotomy + resection admitted with pneumoperitoneum in the setting of sigmoid colon perforation. Hospitalist team consulted for post-operative medical management on 05/10. Patient s/p avendaño procedure and colostomy placement. Patient's post operative course complicated by acute encephalopathy without any notable metabolic derangements or infectious source. Medicine service took over as primary on 05/19 to further engage with Palliative for dispo planning. Given concern of poor po intake and aspiration, Palliative met with POA for indepth discussion. Decision was made to transition patient to comfort measures. 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 On 05/06 and 05/08 -on 05/06 as a result of pneumoperitoneum -found to have a sigmoid perforation with purulent peritonitis and intra- abdominal abscess. Sigmoidectomy and appendectomy also performed. -transferred to ICU with open abdomen, intubated. -Patient then underwent re-exploration laparotomy on 05/08 for abdominal wash- out, removal of mesh, creation of end colostomy, and abdominal closure. Patient was extubated on 05/09, Abdomen Cx obtained from surgery grew pansensitive E coli, bacteroides and strep anginosus Blood Cx NGTD ID consulted on 05/12 for further recs to guide treatment and for recs for discharge. Recommended/stated the following: Completed 9 days postop abx, discontinued per ID recommendations Further care per primary General Surgery team PT/OT, pending rehab placement Palliative following for pain management #Small Bowel Obstruction resolved Pt with episodes of N/V overnight 05/11 to 05/12 KUB ordered noting ileus vs SBO and moderate fecal retention Further recs per General Surgery Continue to monitor diet as requested by patient #Hypocalcemia #Hypokalemia #Hypophosphatemia no further replacement #Glioblastoma #S/P Craniotomy & Tumor Resection [11/10/2023] Patient was diagnosed with glioblastoma involving the left temporal occipital region and October 2023. Per chart review, completed chemo/radiation in early January 2024. Using an Optune TTFfield device and on Lomustine 40mg orally at home. 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 Diet: as tolerated DVT Prophylaxis: dc Code Status: DNR/DNI - Patient would not want any heroic measures in the event of a cardiac arrest per previous provider documentation. PCP: Luz Maria Gama, Medicine now primary service Admission and Anticipated Discharge Date Admission Date: May 06, 2024 Subjective continued encephalopathy Difficulty swallowing intermittently Physical Exam Constitutional: confused, gargling, not queuing to swallow saliva Respiratory: normal respiratory effort, lungs clear to auscultation scatter rhonchi clears with patient cough Cardiovascular: RRR, no murmur, no edema Gastrointestinal (Abdomen): abdominal incision, well aporximated joyce in place ostomy in place Results & Data Results & Data Vital Signs (Past 12 Hours) Vital Signs Temp Pulse Resp BP Pulse Ox O2 Del Method 05/19/24 16:15 Room Air 05/19/24 12:42 Room Air 05/19/24 11:01 36.7 C 86 18 142/77 H 94 Room Air 05/19/24 08:12 37.1 C 90 18 147/76 H 94 Room Air Laboratory Results Short CBC 05/19/24 Range/Units 06:31 WBC 6.73 (4.8-10.8) K/ul Hgb 10.5 L (14.0-18.0) g/dl Hct 31.6 L (42.0-52.0) % Plt Count 401 H (130-400) K/uL BMP 05/19/24 06:27 Sodium 138 Potassium 3.7 Chloride 106 Carbon Dioxide 22 BUN 7 Creatinine 0.56 L Glucose 79 Calcium 7.3 L Medications Administered Home Medications Medication Instructions Recorded Confirmed Last Taken ASPIRIN (ASPIRIN CHEWABLE) 81 mg PO DAILY ##0 09/03/17 11/05/23 Unknown Doxycycline (Monohydrate) 50 mg PO DAILY ##0 09/03/17 11/05/23 Unknown (Doxycycline) Metoprolol Succinate (TOPROL XL) 25 mg PO DAILY ##0 09/03/17 05/11/24 Unknown lisinopril 20 mg tablet 20 mg PO DAILY 11/05/23 05/11/24 Unknown bupropion HCl 150 mg tablet,12 hr 150 mg PO BID 05/06/24 05/06/24 Unknown sustained-release buspirone 10 mg tablet 10 mg PO TID 05/06/24 05/06/24 Unknown morphine 60 mg tablet,extended 60 mg PO AMHS 05/06/24 05/06/24 Unknown release nitrofurantoin 100 mg PO AMHS 05/06/24 05/06/24 Unknown monohydrate/macrocrystals 100 mg capsule Active Medications Generic Name Dose Route Start Last Admin Trade Name Freq PRN Reason Stop Dose Admin Heparin Sodium (Porcine) 5,000 units 05/07/24 06:00 05/19/24 14:54 Heparin Sod 5,000 Unit/0.5 Ml Vial SQ 06/06/24 05:59 Not Given Q8 OSMANY Morphine Sulfate 3 mg 05/10/24 10:30 05/19/24 14:55 Morphine Sulfate 4 Mg/Ml 1 Ml Carp\Vial IV 05/24/24 10:29 3 mg Q4H OSMANY Administration Olanzapine 2.5 mg 05/16/24 21:00 05/19/24 09:20 Olanzapine Zydis 5 Mg Orally Dis. Tab PO 06/15/24 20:59 2.5 mg BID OSMANY Administration Ondansetron HCl 4 mg 05/12/24 08:32 05/15/24 10:16 Ondansetron Inj 2 Mg/Ml 2 Ml Vial IV 06/11/24 08:31 4 mg Q4H PRN Administration Nausea Sennosides 8.8 mg 05/11/24 09:00 05/19/24 09:19 Sennosides 8.8 Mg/5 Ml Udc PO 06/10/24 08:59 8.8 mg QAM OSMANY Administration
[2024-05-19] MEDS: GLYCOPYRROLATE 0.2 MG/ML VIAL IV PRN (17:55)
[2024-05-19] MEDS: levETIRAcetam IV 500 MG in 0.9 % SODIUM CHLORIDE 100 ML IV SCH (20:16)
[2024-05-20] MEDS: MoRPHine SULFATE 2 MG/ML CARP IV PRN (01:36)
[2024-05-20] MEDS: LORazepam 2 MG/1 ML VIAL IV PRN (02:53)
[2024-05-20] MEDS ORDERED: STAT IV Infusion **Titration per Protocol STA (07:16)
[2024-05-20] MEDS: MoRPHine SULF/NSS 100 MG/100 ML BAG IV SCH (07:58)
--- NOTE | 2024-05-20 09:09 | Surgery Progress Note ---
Date of Service May 20, 2024 Assessment & Plan (1) S/P exploratory laparotomy: Plan: ostomy nworking well no acute surgical issues Dr Marte will see on 05/23 call if any issues Present on Admission?: Yes Admission and Anticipated Discharge Date Admission Date: May 06, 2024 Subjective no complaints ostomy working well Review of Systems Constitutional: no fever and no chills Gastrointestinal: no abdominal pain, no nausea and no vomiting Physical Exam Gastrointestinal (Abdomen): Inspection/Auscultation: abdomen normal to inspection and normal bowel sounds; abdomen not distended Percussion/Palpation: abdomen soft; abdomen nontender, no guarding and abdomen not rigid ostomy pink and patent
--- NOTE | 2024-05-20 10:27 | Hospitalist Progress Note ---
Date of Service May 20, 2024 Assessment & Plan (1) S/P exploratory laparotomy: Plan Remy Lujan is a 58y/o M with PMHx of dyslipidemia, ALEKSANDR on CPAP, CAD s/p stent placement, history of [place] [~2014], HTN, ischemic cardiomyopathy, bilateral Meniere disease, erythrocytosis, glioblastoma s/p craniotomy + resection admitted with pneumoperitoneum in the setting of sigmoid colon perforation. Hospitalist team consulted for post-operative medical management on 05/10. Patient s/p avendaño procedure and colostomy placement. Patient's post operative course complicated by acute encephalopathy without any notable metabolic derangements or infectious source. Medicine service took over as primary on 05/19 to further engage with Palliative for dispo planning. Given concern of poor po intake and aspiration, Palliative met with POA for indepth discussion. Decision was made to transition patient to comfort measures. Hospice/GIP to eval come Wednesday. 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 On 05/06 and 05/08 -on 05/06 as a result of pneumoperitoneum -found to have a sigmoid perforation with purulent peritonitis and intra-abdo shefali abscess. Sigmoidectomy and appendectomy also performed. -transferred to ICU with open abdomen, intubated. -Patient then underwent re-exploration laparotomy on 05/08 for abdominal wash- out, removal of mesh, creation of end colostomy, and abdominal closure. Patient was extubated on 05/09, Abdomen Cx obtained from surgery grew pansensitive E coli, bacteroides and strep anginosus Blood Cx NGTD ID consulted on 05/12 for further recs to guide treatment and for recs for discharge. Recommended/stated the following: Completed 9 days postop abx, discontinued per ID recommendations Further care per primary General Surgery team PT/OT, pending rehab placement Palliative following for pain management #Small Bowel Obstruction resolved Pt with episodes of N/V overnight 05/11 to 05/12 KUB ordered noting ileus vs SBO and moderate fecal retention Further recs per General Surgery Continue to monitor diet as requested by patient #Hypocalcemia #Hypokalemia #Hypophosphatemia no further replacement #Glioblastoma #S/P Craniotomy & Tumor Resection [11/10/2023] Patient was diagnosed with glioblastoma involving the left temporal occipital region and October 2023. Per chart review, completed chemo/radiation in early January 2024. Using an [employer] TTFfield device and on Lomustine 40mg orally at home. 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 Diet: as tolerated/requested per patient DVT Prophylaxis: dc Code Status: DNR/DNI - Patient would not want any heroic measures in the event of a cardiac arrest per previous provider documentation. PCP: Luz Maria Gama, DO Admission and Anticipated Discharge Date Admission Date: May 06, 2024 Subjective Restless overnight Transitioned to Morphine drip this am with more comfort Resting comfortably this am on exam Physical Exam Constitutional: WD/WN, vitals as above Respiratory: gurgling in upper resp. coarse, no distress Cardiovascular: RRR, no murmur, no edema Results & Data Results & Data Medications Administered Home Medications Medication Instructions Recorded Confirmed Last Taken ASPIRIN (ASPIRIN CHEWABLE) 81 mg PO DAILY ##0 09/03/17 11/05/23 Unknown Doxycycline (Monohydrate) 50 mg PO DAILY ##0 09/03/17 11/05/23 Unknown (Doxycycline) Metoprolol Succinate (TOPROL XL) 25 mg PO DAILY ##0 09/03/17 05/11/24 Unknown lisinopril 20 mg tablet 20 mg PO DAILY 11/05/23 05/11/24 Unknown bupropion HCl 150 mg tablet,12 hr 150 mg PO BID 05/06/24 05/06/24 Unknown sustained-release buspirone 10 mg tablet 10 mg PO TID 05/06/24 05/06/24 Unknown morphine 60 mg tablet,extended 60 mg PO AMHS 05/06/24 05/06/24 Unknown release nitrofurantoin 100 mg PO AMHS 05/06/24 05/06/24 Unknown monohydrate/macrocrystals 100 mg capsule Active Medications Generic Name Dose Route Start Last Admin Trade Name Freq PRN Reason Stop Dose Admin Glycopyrrolate 0.4 mg 05/19/24 14:09 05/20/24 09:16 Glycopyrrolate 0.2 Mg/Ml Vial IV 06/18/24 14:08 0.4 mg Q2H PRN Administration Rattling Secretions or Pulm Congestion Heparin Sodium (Porcine) 5,000 units 05/07/24 06:00 05/20/24 06:08 Heparin Sod 5,000 Unit/0.5 Ml Vial SQ 06/06/24 05:59 5,000 units Q8 OSMANY Administration Levetiracetam 500 mg/ Sodium 105 mls @ 440 mls/hr 05/19/24 21:00 05/20/24 09:20 Chloride IV 05/20/24 11:00 Infused Q12H OSMANY Infusion Morphine Sulfate 100 mg in 100 mls @ 1.5 mls/hr 05/20/24 07:30 05/20/24 09:10 Morphine Sulf/Nss IV 06/03/24 07:29 1.5 mg/hr .[id number] OSMANY 1.5 mls/hr Titration Protocol 1.5 MG/HR Lorazepam 1 mg 05/19/24 14:09 05/20/24 02:53 Lorazepam 2 Mg/1 Ml Vial IV 06/18/24 14:08 1 mg Q2H PRN Administration Anxiety/Agitation Morphine Sulfate 3 mg 05/10/24 10:30 05/20/24 06:09 Morphine Sulfate 4 Mg/Ml 1 Ml Carp\Vial IV 05/24/24 10:29 3 mg Q4H OSMANY Administration Morphine Sulfate 2 mg 05/19/24 14:14 05/20/24 01:36 Morphine Sulfate 2 Mg/Ml Carp IV 05/23/24 10:35 2 mg Q15M PRN Administration breakthru pain, dyspnea Olanzapine 2.5 mg 05/16/24 21:00 05/20/24 10:20 Olanzapine Zydis 5 Mg Orally Dis. Tab PO 06/15/24 20:59 2.5 mg BID OSMANY Administration Ondansetron HCl 4 mg 05/12/24 08:32 05/15/24 10:16 Ondansetron Inj 2 Mg/Ml 2 Ml Vial IV 06/11/24 08:31 4 mg Q4H PRN Administration Nausea Sennosides 8.8 mg 05/11/24 09:00 05/20/24 09:08 Sennosides 8.8 Mg/5 Ml Udc PO 06/10/24 08:59 Not Given QAM OSMANY
[2024-05-20] MEDS: levETIRAcetam IV 500 MG in SODIUM CHLOR 0.9% MINI-B 100 ML IV SCH (21:52)
--- NOTE | 2024-05-21 09:18 | Hospitalist Progress Note ---
Date of Service May 21, 2024 Assessment & Plan (1) S/P exploratory laparotomy: Plan Remy Lujan is a 58y/o M with PMHx of dyslipidemia, ALEKSANDR on CPAP, CAD s/p stent placement, history of [place] [~2014], HTN, ischemic cardiomyopathy, bilateral Meniere disease, erythrocytosis, glioblastoma s/p craniotomy + resection admitted with pneumoperitoneum in the setting of sigmoid colon perforation. Hospitalist team consulted for post-operative medical management on 05/10. Patient s/p avendaño procedure and colostomy placement. Patient's post operative course complicated by acute encephalopathy without any notable metabolic derangements or infectious source. Medicine service took over as primary on 05/19 to further engage with Palliative for dispo planning. Given concern of poor po intake and aspiration, Palliative met with POA for indepth discussion. Decision was made to transition patient to comfort measures. Hospice/GIP to eval come Wednesday. In interim will continue to monitor for further symptom/comfort management. 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 On 05/06 and 05/08 -on 05/06 as a result of pneumoperitoneum -found to have a sigmoid perforation with purulent peritonitis and intra- abdominal abscess. Sigmoidectomy and appendectomy also performed. -transferred to ICU with open abdomen, intubated. -Patient then underwent re-exploration laparotomy on 05/08 for abdominal wash- out, removal of mesh, creation of end colostomy, and abdominal closure. Patient was extubated on 05/09, Abdomen Cx obtained from surgery grew pansensitive E coli, bacteroides and strep anginosus Blood Cx NGTD ID consulted on 05/12 for further recs to guide treatment and for recs for discharge. Recommended/stated the following: Completed 9 days postop abx, discontinued per ID recommendations [place] to be removed 05/23 PT/OT, plan for hospice Palliative following for pain management #Small Bowel Obstruction resolved Pt with episodes of N/V overnight 05/11 to 05/12 KUB ordered noting ileus vs SBO and moderate fecal retention Further recs per General Surgery Continue to monitor diet as requested by patient #Hypocalcemia #Hypokalemia #Hypophosphatemia no further replacement #Glioblastoma #S/P Craniotomy & Tumor Resection [11/10/2023] Patient was diagnosed with glioblastoma involving the left temporal occipital region and October 2023. Per chart review, completed chemo/radiation in early January 2024. Using an [employer] TTFfield device and on Lomustine 40mg orally at home. 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 Diet: as tolerated/requested per patient DVT Prophylaxis: dc Code Status: DNR/DNI - Patient would not want any heroic measures in the event of a cardiac arrest per previous provider documentation. PCP: Luz Maria Gama, DO Admission and Anticipated Discharge Date Admission Date: May 06, 2024 Subjective Evaluated at bedside No resp distress noted, resting comfortable, briefly opens eyes to physical c ontact and falls back to sleep No visible discomfort or distress noted NAEO Physical Exam Constitutional: resting comfortable Respiratory: normal respiratory effort, lungs clear to auscultation Cardiovascular: RRR, no murmur, no edema Results & Data Results & Data Vital Signs (Past 12 Hours) Vital Signs O2 Del Method 05/21/24 07:30 Room Air Medications Administered Home Medications Medication Instructions Recorded Confirmed Last Taken ASPIRIN (ASPIRIN CHEWABLE) 81 mg PO DAILY ##0 09/03/17 11/05/23 Unknown Doxycycline (Monohydrate) 50 mg PO DAILY ##0 09/03/17 11/05/23 Unknown (Doxycycline) Metoprolol Succinate (TOPROL XL) 25 mg PO DAILY ##0 09/03/17 05/11/24 Unknown lisinopril 20 mg tablet 20 mg PO DAILY 11/05/23 05/11/24 Unknown bupropion HCl 150 mg tablet,12 hr 150 mg PO BID 05/06/24 05/06/24 Unknown sustained-release buspirone 10 mg tablet 10 mg PO TID 05/06/24 05/06/24 Unknown morphine 60 mg tablet,extended 60 mg PO AMHS 05/06/24 05/06/24 Unknown release nitrofurantoin 100 mg PO AMHS 05/06/24 05/06/24 Unknown monohydrate/macrocrystals 100 mg capsule Active Medications Generic Name Dose Route Start Last Admin Trade Name Evanq PRN Reason Stop Dose Admin Glycopyrrolate 0.4 mg 05/19/24 14:09 05/21/24 07:45 Glycopyrrolate 0.2 Mg/Ml Vial IV 06/18/24 14:08 0.4 mg Q2H PRN Administration Rattling Secretions or Pulm Congestion Morphine Sulfate 100 mg in 100 mls @ 2 mls/hr 05/20/24 07:30 05/21/24 07:15 Morphine Sulf/Nss IV 06/03/24 07:29 2 mg/hr .Q50H OSMANY 2 mls/hr Titration Protocol 2 MG/HR Levetiracetam 500 mg/ Sodium 105 mls @ 420 mls/hr 05/20/24 21:00 05/21/24 08:04 Chloride IV 06/18/24 20:59 Infused Q12H OSMANY Infusion Lorazepam 1 mg 05/19/24 14:09 05/21/24 07:40 Lorazepam 2 Mg/1 Ml Vial IV 06/18/24 14:08 1 mg Q2H PRN Administration Anxiety/Agitation Morphine Sulfate 2 mg 05/19/24 14:14 05/21/24 05:01 Morphine Sulfate 2 Mg/Ml Carp IV 05/23/24 10:35 2 mg Q15M PRN Administration breakthru pain, dyspnea Olanzapine 2.5 mg 05/16/24 21:00 05/21/24 07:33 Olanzapine Zydis 5 Mg Orally Dis. Tab PO 06/15/24 20:59 2.5 mg BID OSMANY Administration Ondansetron HCl 4 mg 05/12/24 08:32 05/15/24 10:16 Ondansetron Inj 2 Mg/Ml 2 Ml Vial IV 06/11/24 08:31 4 mg Q4H PRN Administration Nausea Sennosides 8.8 mg 05/11/24 09:00 05/21/24 07:37 Sennosides 8.8 Mg/5 Ml Udc PO 06/10/24 08:59 Not Given QAM OSMANY
--- NOTE | 2024-05-22 09:13 | Hospitalist Progress Note ---
Date of Service May 22, 2024 Assessment & Plan (1) S/P exploratory laparotomy: Plan Remy Lujan is a 58y/o M with PMHx of dyslipidemia, ALEKSANDR on CPAP, CAD s/p stent placement, history of [place] [~2014], HTN, ischemic cardiomyopathy, bilateral Meniere disease, erythrocytosis, glioblastoma s/p craniotomy + resection admitted with pneumoperitoneum in the setting of sigmoid colon perforation. Hospitalist team consulted for post-operative medical management on 05/10. Patient s/p avendaño procedure and colostomy placement. Patient's post operative course complicated by acute encephalopathy without any notable metabolic derangements or infectious source. Medicine service took over as primary on 05/19 to further engage with Palliative for dispo planning. Given concern of poor po intake and aspiration, Palliative met with POA for indepth discussion. Decision was made to transition patient to comfort measures. Hospice/GIP to eval come Wednesday. In interim will continue to monitor for further symptom/comfort management. Morphine drip actively titrated this am. 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 On 05/06 and 05/08 -on 05/06 as a result of pneumoperitoneum -found to have a sigmoid perforation with purulent peritonitis and intra- abdominal abscess. Sigmoidectomy and appendectomy also performed. -transferred to ICU with open abdomen, intubated. -Patient then underwent re-exploration laparotomy on 05/08 for abdominal wash- out, removal of mesh, creation of end colostomy, and abdominal closure. Patient was extubated on 05/09, Abdomen Cx obtained from surgery grew pansensitive E coli, bacteroides and strep anginosus Blood Cx NGTD ID consulted on 05/12 for further recs to guide treatment and for recs for discharge. Recommended/stated the following: Completed 9 days postop abx, discontinued per ID recommendations [place] to be removed 05/23 PT/OT, plan for hospice Palliative following for pain management #Small Bowel Obstruction resolved Pt with episodes of N/V overnight 05/11 to 05/12 KUB ordered noting ileus vs SBO and moderate fecal retention Further recs per General Surgery Continue to monitor diet as requested by patient #Hypocalcemia #Hypokalemia #Hypophosphatemia no further replacement #Glioblastoma #S/P Craniotomy & Tumor Resection [11/10/2023] Patient was diagnosed with glioblastoma involving the left temporal occipital re and October 2023. Per chart review, completed chemo/radiation in early January 2024. Using an [employer] TTFfield device and on Lomustine 40mg orally at home. 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 Diet: as tolerated/requested per patient DVT Prophylaxis: dc Code Status: DNR/DNI - Patient would not want any heroic measures in the event of a cardiac arrest per previous provider documentation. PCP: Luz Maria Gama, DO Admission and Anticipated Discharge Date Admission Date: May 06, 2024 Subjective Patient restless this am, morphine uptitrated with improvement Awakens to gentle physical stimuli, nods appropriately intermittently, then otherwise no oriented Physical Exam Constitutional: WD/WN, vitals as above Respiratory: normal respiratory effort, lungs clear to auscultation Cardiovascular: RRR, no murmur, no edema Gastrointestinal (Abdomen): ostomy still with output Results & Data Results & Data Medications Administered Home Medications Medication Instructions Recorded Confirmed Last Taken ASPIRIN (ASPIRIN CHEWABLE) 81 mg PO DAILY ##0 09/03/17 11/05/23 Unknown Doxycycline (Monohydrate) 50 mg PO DAILY ##0 09/03/17 11/05/23 Unknown (Doxycycline) Metoprolol Succinate (TOPROL XL) 25 mg PO DAILY ##0 09/03/17 05/11/24 Unknown lisinopril 20 mg tablet 20 mg PO DAILY 11/05/23 05/11/24 Unknown bupropion HCl 150 mg tablet,12 hr 150 mg PO BID 05/06/24 05/06/24 Unknown sustained-release buspirone 10 mg tablet 10 mg PO TID 05/06/24 05/06/24 Unknown morphine 60 mg tablet,extended 60 mg PO AMHS 05/06/24 05/06/24 Unknown release nitrofurantoin 100 mg PO AMHS 05/06/24 05/06/24 Unknown monohydrate/macrocrystals 100 mg capsule Active Medications Generic Name Dose Route Start Last Admin Trade Name Freq PRN Reason Stop Dose Admin Glycopyrrolate 0.4 mg 05/19/24 14:09 05/22/24 08:11 Glycopyrrolate 0.2 Mg/Ml Vial IV 06/18/24 14:08 0.4 mg Q2H PRN Administration Rattling Secretions or Pulm Congestion Morphine Sulfate 100 mg in 100 mls @ 2.5 mls/hr 05/20/24 07:30 05/22/24 08:12 Morphine Sulf/Nss IV 06/03/24 07:29 2.5 mg/hr .Q40H OSMANY 2.5 mls/hr Titration Protocol 2.5 MG/HR Levetiracetam 500 mg/ Sodium 105 mls @ 420 mls/hr 05/20/24 21:00 05/22/24 08:36 Chloride IV 06/18/24 20:59 Infused Q12H OSMANY Infusion Lorazepam 1 mg 05/19/24 14:09 05/22/24 08:08 Lorazepam 2 Mg/1 Ml Vial IV 06/18/24 14:08 1 mg Q2H PRN Administration Anxiety/Agitation Morphine Sulfate 2 mg 05/19/24 14:14 05/21/24 21:01 Morphine Sulfate 2 Mg/Ml Carp IV 05/23/24 10:35 2 mg Q15M PRN Administration breakthru pain, dyspnea Olanzapine 2.5 mg 05/16/24 21:00 05/22/24 08:11 Olanzapine Zydis 5 Mg Orally Dis. Tab PO 06/15/24 20:59 2.5 mg BID OSMANY Administration Ondansetron HCl 4 mg 05/12/24 08:32 05/15/24 10:16 Ondansetron Inj 2 Mg/Ml 2 Ml Vial IV 06/11/24 08:31 4 mg Q4H PRN Administration Nausea Sennosides 8.8 mg 05/11/24 09:00 05/22/24 08:11 Sennosides 8.8 Mg/5 Ml Udc PO 06/10/24 08:59 Not Given QAM OSMANY
[2024-05-22] MEDS ORDERED: Nursing to Pharmacy Communication SCH (19:15)
--- NOTE | 2024-05-23 07:19 | Hospitalist Progress Note ---
Date of Service May 23, 2024 Assessment & Plan (1) S/P exploratory laparotomy: Plan Remy Lujan is a 58y/o M with PMHx of dyslipidemia, ALEKSANDR on CPAP, CAD s/p stent placement, history of [place] [~2014], HTN, ischemic cardiomyopathy, bilateral Meniere disease, erythrocytosis, glioblastoma s/p craniotomy + resection admitted with pneumoperitoneum in the setting of sigmoid colon perforation. Hospitalist team consulted for post-operative medical management on 05/10. Patient s/p avendaño procedure and colostomy placement. Patient's post operative course complicated by acute encephalopathy without any notable metabolic derangements or infectious source. Medicine service took over as primary on 05/19 to further engage with Palliative for dispo planning. Given concern of poor po intake and aspiration, Palliative met with POA for indepth discussion. Decision was made to transition patient to comfort measures. Hospice/GIP to eval today. In interim will continue to monitor for further symptom/comfort management. Morphine drip actively titrated this am. 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 On 05/06 and 05/08 -on 05/06 as a result of pneumoperitoneum -found to have a sigmoid perforation with purulent peritonitis and intra- abdominal abscess. Sigmoidectomy and appendectomy also performed. -transferred to ICU with open abdomen, intubated. -Patient then underwent re-exploration laparotomy on 05/08 for abdominal wash- out, removal of mesh, creation of end colostomy, and abdominal closure. Patient was extubated on 05/09, Abdomen Cx obtained from surgery grew pansensitive E coli, bacteroides and strep anginosus Blood Cx NGTD ID consulted on 05/12 for further recs to guide treatment and for recs for discharge. Recommended/stated the following: Completed 9 days postop abx, discontinued per ID recommendations [place] to be removed 05/23 PT/OT, plan for hospice Palliative following for pain management #Small Bowel Obstruction resolved Pt with episodes of N/V overnight 05/11 to 05/12 KUB ordered noting ileus vs SBO and moderate fecal retention Further recs per General Surgery Continue to monitor diet as requested by patient #Hypocalcemia #Hypokalemia #Hypophosphatemia no further replacement #Glioblastoma #S/P Craniotomy & Tumor Resection [11/10/2023] Patient was diagnosed with glioblastoma involving the left temporal occipital region and October 2023. Per chart review, completed chemo/radiation in early January 2024. Using an [employer] TTFfield device and on Lomustine 40mg orally at home. 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 Diet: as tolerated/requested per patient DVT Prophylaxis: dc Code Status: DNR/DNI - Patient would not want any heroic measures in the event of a cardiac arrest per previous provider documentation. PCP: Luz Maria Gama, DO Admission and Anticipated Discharge Date Admission Date: May 06, 2024 Subjective Not easily arousable Vomitus in mouth, foul odor Shallow breathing Morphine drip uptitrated per nursing given restlessness Physical Exam Constitutional: not arousable Respiratory: upper airway gurgling, shallow breathing Cardiovascular: RRR, no murmur, no edema Results & Data Results & Data Medications Administered Home Medications Medication Instructions Recorded Confirmed Last Taken ASPIRIN (ASPIRIN CHEWABLE) 81 mg PO DAILY ##0 09/03/17 11/05/23 Unknown Doxycycline (Monohydrate) 50 mg PO DAILY ##0 09/03/17 11/05/23 Unknown (Doxycycline) Metoprolol Succinate (TOPROL XL) 25 mg PO DAILY ##0 09/03/17 05/11/24 Unknown lisinopril 20 mg tablet 20 mg PO DAILY 11/05/23 05/11/24 Unknown bupropion HCl 150 mg tablet,12 hr 150 mg PO BID 05/06/24 05/06/24 Unknown sustained-release buspirone 10 mg tablet 10 mg PO TID 05/06/24 05/06/24 Unknown morphine 60 mg tablet,extended 60 mg PO AMHS 05/06/24 05/06/24 Unknown release nitrofurantoin 100 mg PO AMHS 05/06/24 05/06/24 Unknown monohydrate/macrocrystals 100 mg capsule Active Medications Generic Name Dose Route Start Last Admin Trade Name Cheryl PRN Reason Stop Dose Admin Glycopyrrolate 0.4 mg 05/19/24 14:09 05/23/24 07:19 Glycopyrrolate 0.2 Mg/Ml Vial IV 06/18/24 14:08 0.4 mg Q2H PRN Administration Rattling Secretions or Pulm Congestion Morphine Sulfate 100 mg in 100 mls @ 4 mls/hr 05/20/24 07:30 05/23/24 06:48 Morphine Sulf/Nss IV 06/03/24 07:29 4 mg/hr .Q25H OSMANY 4 mls/hr Titration Protocol 4 MG/HR Levetiracetam 500 mg/ Sodium 105 mls @ 420 mls/hr 05/20/24 21:00 05/23/24 07:53 Chloride IV 06/18/24 20:59 Infused Q12H OSMANY Infusion Lorazepam 1 mg 05/19/24 14:09 05/23/24 07:17 Lorazepam 2 Mg/1 Ml Vial IV 06/18/24 14:08 1 mg Q2H PRN Administration Anxiety/Agitation Morphine Sulfate 2 mg 05/19/24 14:14 05/23/24 00:39 Morphine Sulfate 2 Mg/Ml Carp IV 05/23/24 10:35 2 mg Q15M PRN Administration breakthru pain, dyspnea Olanzapine 2.5 mg 05/16/24 21:00 05/23/24 07:22 Olanzapine Zydis 5 Mg Orally Dis. Tab PO 06/15/24 20:59 2.5 mg BID OSMANY Administration Ondansetron HCl 4 mg 05/12/24 08:32 05/15/24 10:16 Ondansetron Inj 2 Mg/Ml 2 Ml Vial IV 06/11/24 08:31 4 mg Q4H PRN Administration Nausea Sennosides 8.8 mg 05/11/24 09:00 05/23/24 07:22 Sennosides 8.8 Mg/5 Ml Udc PO 06/10/24 08:59 Not Given QAM OSMANY
--- NOTE | 2024-05-23 08:40 | Surgery Progress Note ---
Date of Service May 23, 2024 Assessment & Plan (1) S/P exploratory laparotomy: Plan: s/p exlap sigmoidectomy/appendectomy and take-back for washout and colostomy formation 05/08/24 patient sleeping in bed, not easily arousable currently comfort measures midline joyce removed. please pack inferior portion of wound daily with dry gauze, cover entire wound then with 4x4 and abd and medipore [facility] medicine assistance with patient given comfort measure status we will follow from the periphery at this time as not much surgically to add at this point please call with any questions/concerns Admission and Anticipated Discharge Date Admission Date: May 06, 2024 Subjective Patient unable to provide subjective history due to cognitive status Physical Exam Physical Exam: sleeping, mouth open Gastrointestinal (Abdomen): Percussion/Palpation: abdomen soft midline incision, superior and inferior poles open 2/2 previous aldo drain with some purulent drainage. joyce removed. ostomy w/ + gas and viable PG Care Time/CCT Total # of Minutes Spent Total Time Spent with Patient: Total time spent is greater than 50% in coordination of care (as documented) at patient's floor/unit and/or counseling patient: Coding Level of Care Code 58423 Post Operative Follow-Up Diagnoses S/P exploratory laparotomy Z98.890
--- NOTE | 2024-05-23 10:51 | Communication Note ---
Date of Service: May 23, 2024 note I was called to patients bedside to pronounce patient as . No spontaneous movements were present. There was no response to verbal or tactile stimuli. Pupils were mid-dilated and fixed. No carotid pulses were palpable. No heart sounds were auscultated over entire precordium. No breath sound were heard. The family has not made a decision of autopsy at the time of this note. Patient was DNR at time of . Time of was 10:43 am on 05/23/2024. General: unresponsive, no spontaneous movements, no response to verbal or tact ile stimuli. Eyes: pupils fixed and dilated, corneal reflexes absent. CV: no heart sounds, no carotid pulses. Lungs: no breath sounds, no chest wall motion. Extremities: absent distal pulses
--- NOTE | 2024-05-23 10:53 | Discharge Summary ---
Discharge Summary Date of Service May 23, 2024 Principal Dx & Hospital Course #1 = Principal Diagnosis (1) S/P exploratory laparotomy: Plan Remy Lujan is a 58y/o M with PMHx of dyslipidemia, ALEKSANDR on CPAP, CAD s/p stent placement, history of IL [~2014], HTN, ischemic cardiomyopathy, bilateral Meniere disease, erythrocytosis, glioblastoma s/p craniotomy + resection admitted with pneumoperitoneum in the setting of sigmoid colon perforation. Hospitalist team consulted for post-operative medical management on 05/10. Patient s/p avendaño procedure and colostomy placement. Patient's post operative course complicated by acute encephalopathy without any notable metabolic derangements or infectious source. Medicine service took over as primary on 05/19 to further engage with Palliative for dispo planning. Given concern of poor po intake and aspiration, Palliative met with POA for indepth discussion. Decision was made to transition patient to comfort measures. Hospice/GIP to eval today. In interim will continue to monitor for further symptom/comfort management. Morphine drip actively titrated this am. Patient will shallow respirations in the am of 05/23. Physician called to bedside given concern patient . declared at 1043 am. Patient was managed for the following during the admission: #MANAGER ERP Patient to be evaluated by GIP and plan for hospice Palliative consulted, appreciate expert facilitation of transition to comfort measures Medications transitioned to IV Morphine drip started 05/20, titration per pallitive protocol #Pneumoperitoneum #Sigmoid Colon Perforation #Ventilator Dependent respiratory failure *resolved s/p Exploratory Laparotomy x 2. On 05/06 and 05/08 -on 05/06 as a result of pneumoperitoneum -found to have a sigmoid perforation with purulent peritonitis and intra- abdominal abscess. Sigmoidectomy and appendectomy also performed. -transferred to ICU with open abdomen, intubated. -Patient then underwent re-exploration laparotomy on 05/08 for abdominal wash- out, removal of mesh, creation of end colostomy, and abdominal closure. Patient was extubated on 05/09, Abdomen Cx obtained from surgery grew pansensitive E coli, bacteroides and strep anginosus Blood Cx NGTD ID consulted on 05/12 for further recs to guide treatment and for recs for discharge. Recommended/stated the following: Completed 9 days postop abx, discontinued per ID recommendations Union to be removed 05/23 PT/OT, plan for hospice Palliative following for pain management #Small Bowel Obstruction resolved Pt with episodes of N/V overnight 05/11 to 05/12 KUB ordered noting ileus vs SBO and moderate fecal retention Further recs per General Surgery Continue to monitor diet as requested by patient #Hypocalcemia #Hypokalemia #Hypophosphatemia no further replacement #Glioblastoma #S/P Craniotomy & Tumor Resection [11/10/2023] Patient was diagnosed with glioblastoma involving the left temporal occipital region and October 2023. Per chart review, completed chemo/radiation in early January 2024. Using an Near Infinity TTFfield device and on Lomustine 40mg orally at home. On Keppra 500mg po BID--> transitioned to IV keppra Home pain regimen of MS Contin 60mg BID and MSIR 30mg q4h PRN Palliative Care was consulted for further inpatient pain med recs, appreciate recs #HTN #CAD s/p stent placement #Hx of [place] discontinued po regimen for IV hydralazine prn #Anxiety/Depression discontinued po for MANAGER ERP #ALEKSANDR Continue CPAP HS. Notes For Next Care Provider Medication Changes From Visit Admission HPI Per Admitting Provider This is a 58-year-old male who came to the ER today with about a weeks long history of abdominal pain that progressively worsened. He initially was seen by his oncologist who diagnosed him with a UTI and gave him an antibiotic however this did not help. He has had progressive generalized abdominal pain over that time. There is no radiation of the pain. Does seem to be worse in the right abdomen. Denies any fevers or chills or nausea or vomiting. There is no alleviating or aggravating factors to the pain. No previous abdominal surgeries. He does have a history of glioblastoma and he is accompanied by his healthcare power of divorce attorney. He does take a baby aspirin but no other blood thinners. He has not had any chemotherapy treatment in 6 weeks. He did have high-dose steroid 3 days ago. Admission Exam Per Admitting Provider Constitutional: WD/WN, vitals as above Eyes: PERRL, conjunctivae normal, anicteric sclerae ENMT: external ear and nose normal, oropharynx normal Neck: trachea midline, no thyromegaly Respiratory: normal respiratory effort, lungs clear to auscultation Cardiovascular: RRR, no murmur, no edema Gastrointestinal (Abdomen): Inspection/Auscultation: abdomen normal to inspection and + abdomen distended Percussion/Palpation: + abdomen tender (Generalized), + guarding and abdomen soft Guarding and rebound present Musculoskeletal: no cyanosis or clubbing, extremities motor strength 5/5 Skin: no rashes, warm and dry Neurologic: PERRL, EOMI, accommodation nl, no face palsy, no dysarthria Psychiatric: A+Ox3, euthymic affect Discharge Exam General: unresponsive, no spontaneous movements, no response to verbal or tactile stimuli. Eyes: pupils fixed and dilated, corneal reflexes absent. CV: no heart sounds, no carotid pulses. Lungs: no breath sounds, no chest wall motion. Extremities: absent distal pulses Updated Medication List Medication Instructions Recorded Confirmed Type ASPIRIN (ASPIRIN CHEWABLE) 81 mg PO DAILY ##0 09/03/17 11/05/23 History Doxycycline (Monohydrate) 50 mg PO DAILY ##0 09/03/17 11/05/23 History (Doxycycline) Metoprolol Succinate (TOPROL XL) 25 mg PO DAILY ##0 09/03/17 05/11/24 History lisinopril 20 mg tablet 20 mg PO DAILY 11/05/23 05/11/24 History bupropion HCl 150 mg tablet,12 hr 150 mg PO BID 05/06/24 05/06/24 History sustained-release buspirone 10 mg tablet 10 mg PO TID 05/06/24 05/06/24 History morphine 60 mg tablet,extended 60 mg PO AMHS 05/06/24 05/06/24 History release nitrofurantoin 100 mg PO AMHS 05/06/24 05/06/24 History monohydrate/macrocrystals 100 mg capsule Hospital Stay Data Consultations 05/06/24 17:00 Consult General Surgery Stat 05/06/24 21:23 Consult Decontaminator Routine 05/09/24 13:36 Consult Palliative Care Routine 05/10/24 11:42 Consult Hospitalist Routine 05/11/24 15:13 Consult Infectious Diseases Routine Procedures Performed Operation Date: 05/08/24 08:20 Actual Procedures p Re-Exploration Laparotomy, abdominal wash out, creation of end colostomy, explantation of abdominal wall mesh, abdominal wall closure(Not Applicable) - Carlos Marte DO Diagnostic Imagining Performed 05/06/24 15:29 CT abd pelvis IV con only Stat 05/19/24 09:44 CT head/brain wo con Routine Pending Results Patient Have Any Pending Studies at Discharge: Yes Discharge Instructions Given to Patient (Per Discharging Provider) care for ostomy as instructed prior to leaving the hospital and advised by our wound care team you have surgical joyce in place that should be removed around post operative day 14 from your surgery continue on a low fiber diet Total Time Total Time Spent Total Time Spent (In Minutes): 0
== END 2024-05-23 13:25 | disposition expired | DRG 329 ==
LOC: ED 15:19 → OR 18:00 → 1E 18:00 → 2N 05-10 16:26 → 3W 05-18 12:24